=== PATIENT | male | born 1940 | race Caucasian/White ===

== ENCOUNTER → 2018-04-27 10:24 | Outpatient (CLI) | payer MEDICARE, BC, SELFPAY ==
[2018-04-27 10:57] LABS: Add Manual Diff / Slide Review NO; Basophils Percent Auto 0.8 % (0-2); Eosinophils Percent Auto 1.9 % (2-4); Hematocrit 40.7 % (41-53); Hemoglobin 14.2 g/dL (13.5-17.5); Lymphocytes Percent Auto 36.1 % (25-40); Mean Corpuscular HGB Conc 34.9 % (30-36); Mean Corpuscular Hemoglobin 32.6 PG (26-34); Mean Corpuscular Volume 93.2 fL (80-100); Monocytes Percent Auto 7.6 % (3-14); Neutrophils Absolute Auto 4100 /uL (3000-5900); Neutrophils Percent Auto 53.6 % (50-75); Platelet Count 212 X10^3/uL (150-400); Red Blood Cell Count 4.37 X10^6/uL (4.5-5.9); Red Cell Distribution Width 13.1 % (11.6-14.8); White Blood Cell Count 7.7 X10^3/uL (4.5-11.0)
[2018-04-27 11:26] LABS: Alanine Aminotransferase 30 IU/L (21-72); Albumin 4.4 g/dL (3.5-5.0); Albumin Globulin Ratio 1.4 (1.0-2.8); Alkaline Phosphatase 59 U/L (38-126); Aspartate Aminotransferase 28 IU/L (17-59); BUN Creatinine Ratio 12.2 (6-22); Blood Urea Nitrogen 11 mg/dL (9-20); Calcium 9.5 mg/dL (8.4-10.2); Carbon Dioxide 23 mmol/L (22-32); Chloride 106 mmol/L (98-107); Cholesterol 144 mg/dL (140-199); Estimated Glomerular Filt Rate > 60.0 mL/min (>60); Globulin 3.1 g/dL (1.7-4.1); Glucose 82 mg/dL (80-110); HDL Cholesterol 31 mg/dL (40-60); HEMOLYSIS 31 (0-50); LDL Cholesterol Calculated 79 mg/dL (<100); Potassium 5.3 mmol/L (3.4-5.1); Sodium 141 mmol/L (137-145); Total Protein 7.5 g/dL (6.3-8.2); Triglycerides 171 mg/dL (35-150)
== END ==
PROVIDERS: PCP Internal Medicine; Visit Provider Internal Medicine
DX: I48.91 Unspecified atrial fibrillation (principal); I50.22 Chronic systolic (congestive) heart failure
CPT/HCPCS: 36415; 80053; 80061; 83880; 85025

== ENCOUNTER → 2018-08-23 10:35 | Outpatient (CLI) | payer MEDICARE, BC, SELFPAY ==
[2018-08-23 11:53] LABS: Add Manual Diff / Slide Review NO; Basophils Absolute Auto 100 /uL (0-100); Basophils Percent Auto 0.8 % (0-2); Eosinophils Absolute Auto 200 /uL (0-450); Eosinophils Percent Auto 2.4 % (2-4); Hematocrit 42.4 % (41-53); Hemoglobin 14.8 g/dL (13.5-17.5); Lymphocytes Absolute Auto 2400 /uL (1100-4500); Lymphocytes Percent Auto 32.6 % (25-40); Mean Corpuscular HGB Conc 34.8 % (30-36); Mean Corpuscular Hemoglobin 32.4 PG (26-34); Mean Corpuscular Volume 93.1 fL (80-100); Monocytes Absolute Auto 500 /uL (0-900); Monocytes Percent Auto 6.2 % (3-14); Neutrophils Absolute Auto 4400 /uL (1500-7000); Platelet Count 254 X10^3/uL (150-400); Red Blood Cell Count 4.56 X10^6/uL (4.5-5.9); White Blood Cell Count 7.5 X10^3/uL (4.5-11.0)
[2018-08-23 12:17] LABS: BUN Creatinine Ratio 11.8 (6-22); Blood Urea Nitrogen 13 mg/dL (9-20); Calcium 9.9 mg/dL (8.4-10.2); Carbon Dioxide 19 mmol/L (22-32); Chloride 107 mmol/L (98-107); Estimated Glomerular Filt Rate > 60.0 mL/min (>60); Glucose 77 mg/dL (80-110); HEMOLYSIS 17 (0-50); Potassium 4.7 mmol/L (3.4-5.1); Sodium 142 mmol/L (137-145)
[2018-08-23 12:44] LABS: TSH w/ Reflex to FT4 1.07 uIU/mL (0.47-4.68)
== END ==
PROVIDERS: PCP Internal Medicine; Visit Provider Internal Medicine
DX: I50.22 Chronic systolic (congestive) heart failure (principal); E03.9 Hypothyroidism, unspecified
CPT/HCPCS: 36415; 80048; 84443; 85025

== ENCOUNTER → 2019-01-03 09:15 | Outpatient (CLI) | payer MEDICARE, BC, SELFPAY ==
[2019-01-03 10:40] LABS: Blood Urea Nitrogen 10 mg/dL (9-20); Calcium 9.6 mg/dL (8.4-10.2); Carbon Dioxide 22 mmol/L (22-32); Chloride 106 mmol/L (98-107); Estimated Glomerular Filt Rate > 60.0 mL/min (>60); Glucose 87 mg/dL (80-110); HEMOLYSIS < 15 (0-50); Potassium 4.3 mmol/L (3.4-5.1); Sodium 142 mmol/L (137-145)
[2019-01-03 11:11] LABS: TSH w/ Reflex to FT4 1.46 uIU/mL (0.47-4.68)
== END ==
PROVIDERS: PCP Internal Medicine; Visit Provider Internal Medicine
DX: I48.91 Unspecified atrial fibrillation (principal); E03.9 Hypothyroidism, unspecified; I10 Essential (primary) hypertension
CPT/HCPCS: 36415; 80048; 84443

== ENCOUNTER → 2019-02-09 10:18 | Outpatient (CLI) | payer MEDICARE, BC, SELFPAY ==
[2019-02-09 10:55] LABS: INR 2.6 (0.9-1.3); Prothrombin Time 30.9 SECONDS (10.1-12.7)
== END ==
PROVIDERS: PCP Internal Medicine; Visit Provider Internal Medicine
DX: I48.91 Unspecified atrial fibrillation (principal)
CPT/HCPCS: 36415; 85610

== ENCOUNTER → 2019-05-02 08:33 | Outpatient (CLI) | payer MEDICARE, BC, SELFPAY ==
[2019-05-02 10:11] LABS: Alanine Aminotransferase 22 IU/L (<50); Albumin 4.8 g/dL (3.5-5.0); Albumin Globulin Ratio 1.4 (1.0-2.8); Alkaline Phosphatase 74 U/L (38-126); Aspartate Aminotransferase 30 IU/L (17-59); Bilirubin Total 0.9 mg/dL (0.2-1.3); Blood Urea Nitrogen 9 mg/dL (9-20); Carbon Dioxide 21 mmol/L (22-32); Chloride 108 mmol/L (98-107); Cholesterol 167 mg/dL (140-199); Estimated Glomerular Filt Rate > 60.0 mL/min (>60); Globulin 3.4 g/dL (1.7-4.1); Glucose 77 mg/dL (80-110); HDL Cholesterol 33 mg/dL (40-60); HEMOLYSIS < 15 (0-50); LDL Cholesterol Calculated 100 mg/dL (<100); Potassium 4.3 mmol/L (3.4-5.1); Sodium 143 mmol/L (137-145); Total Protein 8.2 g/dL (6.3-8.2); Triglycerides 168 mg/dL (35-150)
[2019-05-02 10:59] LABS: Vitamin B12 > 1000 pg/mL (239-931)
== END ==
PROVIDERS: PCP Internal Medicine; Visit Provider Internal Medicine
DX: I48.91 Unspecified atrial fibrillation (principal); I10 Essential (primary) hypertension; D51.9 Vitamin B12 deficiency anemia, unspecified
CPT/HCPCS: 36415; 80053; 80061; 82607; 84443

== ENCOUNTER → 2019-06-27 12:37 | Outpatient (ROUT) | payer MEDICARE, BC, SELFPAY | PROVIDERS: PCP Internal Medicine; Visit Provider Internal Medicine | DX: R31.0 Gross hematuria (principal) | CPT/HCPCS: 87077; 87086; 87185; 87186 ==

== ENCOUNTER → 2020-05-06 11:52 | Outpatient (CLI) | payer MEDICARE, BC, SELFPAY ==
[2020-05-06 13:56] LABS: Add Manual Diff / Slide Review NO; Basophils Absolute Auto 0 /uL (0-100); Basophils Percent Auto 0.5 % (0-2); Eosinophils Absolute Auto 200 /uL (0-450); Eosinophils Percent Auto 1.7 % (2-4); Hematocrit 41.3 % (41-53); Hemoglobin 14.1 g/dL (13.5-17.5); Lymphocytes Absolute Auto 2500 /uL (1100-4500); Lymphocytes Percent Auto 27.6 % (25-40); Mean Corpuscular HGB Conc 34.1 % (30-36); Mean Corpuscular Hemoglobin 31.8 PG (26-34); Mean Corpuscular Volume 93.2 fL (80-100); Monocytes Absolute Auto 600 /uL (0-900); Monocytes Percent Auto 6.3 % (3-14); Neutrophils Absolute Auto 5900 /uL (1500-7000); Neutrophils Percent Auto 63.9 % (50-75); Platelet Count 191 X10^3/uL (150-400); Red Blood Cell Count 4.43 X10^6/uL (4.5-5.9); Red Cell Distribution Width 13.1 % (11.6-14.8); White Blood Cell Count 9.2 X10^3/uL (4.5-11.0)
[2020-05-06 14:40] LABS: Alanine Aminotransferase 25 IU/L (<50); Albumin 4.7 g/dL (3.5-5.0); Albumin Globulin Ratio 1.3 (1.0-2.8); Alkaline Phosphatase 75 U/L (38-126); Aspartate Aminotransferase 34 IU/L (17-59); BUN Creatinine Ratio 12.7 (6-22); Blood Urea Nitrogen 13 mg/dL (9-20); Calcium 9.6 mg/dL (8.4-10.2); Carbon Dioxide 23 mmol/L (22-32); Chloride 106 mmol/L (98-107); Cholesterol 177 mg/dL (140-199); Estimated Glomerular Filt Rate > 60.0 mL/min (>60); Globulin 3.6 g/dL (1.7-4.1); Glucose 74 mg/dL (80-110); HDL Cholesterol 30 mg/dL (40-60); HEMOLYSIS < 15 (0-50); LDL Cholesterol Calculated 111 mg/dL (<100); Potassium 4.1 mmol/L (3.4-5.1); Sodium 137 mmol/L (137-145); Total Protein 8.3 g/dL (6.3-8.2); Triglycerides 180 mg/dL (35-150)
[2020-05-06 15:09] LABS: TSH w/ Reflex to FT4 7.28 uIU/mL (0.47-4.68)
[2020-05-06 15:47] LABS: Free T4, Direct Thyroxine 2.04 ng/dL (0.78-2.19)
== END ==
PROVIDERS: PCP Internal Medicine; Referring Provider Internal Medicine; Visit Provider Internal Medicine
DX: I48.91 Unspecified atrial fibrillation (principal); E03.9 Hypothyroidism, unspecified; I50.22 Chronic systolic (congestive) heart failure; E78.2 Mixed hyperlipidemia
CPT/HCPCS: 80053; 80061; 84439; 84443; 85025

== ENCOUNTER 2020-07-10 14:52 | Inpatient (IN) | payer MEDICARE, BC, SELFPAY ==
[2020-07-10] VITALS (20 sets, daily range): BP systolic 101–155; BP diastolic 54–103; PULSE 89–106; RESP 15–42; TEMP 36.9–38.4; O2SAT 92–98; BMI 25.0; BMI 24.7
--- NOTE | 2020-07-10 15:02 | DI.RAD.S_ITS ---
PROCEDURE: XR CHEST 1V INDICATIONS: suspected sepsis TECHNIQUE: One view of the chest was acquired. COMPARISON: None. FINDINGS: Surgical changes and devices: None. Lungs and pleura: Lungs are clear. No pleural effusions or pneumothorax. Mediastinum: Mediastinal contours appear normal. Heart size is normal. Bones and chest wall: No suspicious bony lesions. Overlying soft tissues appear unremarkable. IMPRESSION: Normal for age, source of current sepsis symptoms is not seen. Dictated by: Baljinder Vizcaino M.D. on 07/10/2020 at 15:57 Approved by: Baljinder Vizcaino M.D. on 07/10/2020 at 15:57
[2020-07-10] MEDS: SODIUM CHLORIDE 0.9% 1,000 ML 1000 ML IV (15:30)
[2020-07-10 15:39] LABS: Appearance Urine UA CLOUDY; Bilirubin Urine UA 1+ (NEGATIVE); Glucose Urine UA NEGATIVE (Negative); Ketones Urine UA TRACE (NEGATIVE); Leukocyte Esterase Urine UA 1+ (NEGATIVE); Nitrite Urine UA POSITIVE (Negative); Occult Blood Urine UA 3+ (Negative); Protein Urine UA 3+ (Negative)
[2020-07-10 15:40] LABS: Color Urine UA Amber
[2020-07-10 15:48] LABS: Add Manual Diff / Slide Review NO; Basophils Absolute Auto 0 /uL (0-100); Basophils Percent Auto 0.2 % (0-2); Eosinophils Absolute Auto 0 /uL (0-450); Eosinophils Percent Auto 0.1 % (2-4); Hematocrit 38.9 % (41-53); Hemoglobin 13.1 g/dL (13.5-17.5); Lymphocytes Absolute Auto 1200 /uL (1100-4500); Lymphocytes Percent Auto 6.5 % (25-40); Mean Corpuscular HGB Conc 33.7 % (30-36); Mean Corpuscular Hemoglobin 31.4 PG (26-34); Mean Corpuscular Volume 93.1 fL (80-100); Monocytes Absolute Auto 1300 /uL (0-900); Monocytes Percent Auto 6.6 % (3-14); Neutrophils Absolute Auto 16600 /uL (1500-7000); Neutrophils Percent Auto 86.6 % (50-75); Platelet Count 183 X10^3/uL (150-400); Red Blood Cell Count 4.18 X10^6/uL (4.5-5.9); White Blood Cell Count 19.1 X10^3/uL (4.5-11.0)
[2020-07-10 15:51] LABS: COVID19 -Nasal RAPID Negative (Negative)
[2020-07-10 15:52] LABS: Ictotest Urine Negative (Negative)
[2020-07-10 15:53] LABS: RBC Urine 10-30/HPF (0-5/HPF); Squamous Epithelial Cell Urine 0-1 /HPF (0-5/HPF); WBC Urine 5-10/HPF (0-5/HPF)
[2020-07-10 15:54] LABS: Bacteria Urine Few (2-10); Culture Indicated Urine Specimen Cultured
[2020-07-10 15:58] LABS: INR 2.8 (0.9-1.3); Prothrombin Time 31.9 SECONDS (10.1-12.7)
[2020-07-10 16:01] LABS: PTT Partial Thromboplastin Tim 37 SECONDS (26.4-36.2)
[2020-07-10 16:02] LABS: Alanine Aminotransferase 19 IU/L (<50); Albumin 4.5 g/dL (3.5-5.0); Albumin Globulin Ratio 1.2 (1.0-2.8); Alkaline Phosphatase 56 U/L (38-126); Aspartate Aminotransferase 31 IU/L (17-59); BUN Creatinine Ratio 13.9 (6-22); Bilirubin Total 1.2 mg/dL (0.2-1.3); Blood Urea Nitrogen 16 mg/dL (9-20); Calcium 9.2 mg/dL (8.4-10.2); Carbon Dioxide 24 mmol/L (22-32); Chloride 104 mmol/L (98-107); Estimated Glomerular Filt Rate > 60.0 mL/min (>60); Globulin 3.7 g/dL (1.7-4.1); Glucose 90 mg/dL (80-110); HEMOLYSIS < 15 (0-50); Lipase 43 U/L (23-300); Potassium 3.9 mmol/L (3.4-5.1); Sodium 135 mmol/L (137-145); Total Protein 8.2 g/dL (6.3-8.2)
[2020-07-10 16:03] LABS: Lactate (Lactic Acid) 1.8 mmol/L (0.7-2.1)
[2020-07-10 16:32] LABS: Procalcitonin 0.55 ng/mL (<0.5)
--- NOTE | 2020-07-10 17:24 | ED_ITS ---
HPI - Neuro Symptoms/Deficit <Ramila Gaston Murtaza, - Last Filed: 07/11/20 19:00> General Chief Complaint: Neuro Symptoms/Deficit Stated Complaint: assisted fall Time Seen by Provider: 07/10/20 15:17 Source: patient Mode of arrival: EMS Limitations: no limitations History of Present Illness HPI Narrative: This is an 80-year-old male who is brought in for fever, his states he was up all night trying to urinate. 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 He ambulates with a walker. He was having some difficulty and fell. She did not appreciate any lateralizing weakness. She states that she did not hit his head. It was sort of a slow slide to the ground. He is on anticoagulants. She states patient and patient himself denies any pain, no chest pain or shortness o f breath, no persistent vomiting. Patient has had any major changes to bowel movements. He is on medication for hypertension, dyslipidemia and hypothyroidism. He lives at home with his . On Anticoagulants: Yes (coumadin) Related Data Home Medications Medication Instructions Recorded Confirmed simvastatin [Zocor] 40 mg PO BEDTIME #0 06/12/11 07/10/20 diltiazem HCl 180 mg PO QDAY #0 07/14/16 07/10/20 lisinopril 2.5 mg PO BEDTIME #0 07/14/16 07/10/20 ascorbate calcium (vitamin C) 500 mg PO DAILY 07/10/20 07/10/20 aspirin [Aspirin Child] 81 mg PO DAILY 07/10/20 07/10/20 cholecalciferol (vitamin D3) 25 mcg PO DAILY 07/10/20 07/10/20 [Vitamin D3] levothyroxine 100 mcg PO DAILY 07/10/20 07/10/20 clfkslxaazaa-idl-layy-FA-vit K 1 tab PO DAILY 07/10/20 07/10/20 [Adults Multivitamin] vitamin B complex [B 1 tab PO BEDTIME 07/10/20 07/10/20 Complex-Vitamin B12] warfarin See Rx Instructions .ROUTE .COMPLEX 07/10/20 07/10/20 warfarin See Rx Instructions .ROUTE .COMPLEX 07/10/20 07/10/20 Allergies Allergy/AdvReac Type Severity Reaction Status Date / Time No Known Drug Allergies Allergy Verified 07/10/20 15:03 Review of Systems <Ramila Hauser DO - Last Filed: 07/11/20 19:00> Review of Systems ROS Unobtainable: All systems reviewed & are unremarkable except as noted in HPI and below Hematologic/Lymphatic On Anticoagulants: Yes (coumadin) Patient History <Ramila Hauser DO - Last Filed: 07/11/20 19:00> Medical History (Updated 07/11/20 @ 06:36 by Soni Pack [facility]) 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 Patient is warm to touch. HEENT: Atraumatic, pupils are equal round reactive to light, extraocular movements are intact. No facial droop. HEART: Tachycardic but Regular rate and rhythm without murmur, clicks, rubs. No carotid bruits, pulses are equal in upper and lower extremities LUNGS:Lungs clear to auscultation, no wheezes, rales, crackles, chest moves symmetrically. ABD:bowel sounds normal, soft, non-tender, no guarding, rebound, rigidity, no masses noted, no hepatosplenomegaly :No CVA tenderness MSCL: Non-tender, no muscle atrophy, full range of motion of upper and lower while laying in bed. Gait not tested. NEURO:CN 2-12 intact, sensation normal, reflexes 2/4 upper and lower extremities Initial Vital Signs Initial Vital Signs: Vital Signs Temperature 101.0 F H 07/10/20 15:03 Pulse Rate 106 H 07/10/20 15:03 Respiratory Rate 15 07/10/20 15:03 Blood Pressure 115/62 07/10/20 15:03 Pulse Oximetry 98 07/10/20 15:03 <Celia Hein DO - Last Filed: 07/11/20 03:07> Initial Vital Signs Initial Vital Signs: Vital Signs Temperature 101.0 F H 07/10/20 15:03 Pulse Rate 106 H 07/10/20 15:03 Respiratory Rate 15 07/10/20 15:03 Blood Pressure 115/62 07/10/20 15:03 Pulse Oximetry 98 07/10/20 15:03 Scores <Ramila Hauser DO - Last Filed: 07/11/20 19:00> GCS Yolanda coma scale eye opening: Spontaneous [place] coma scale verbal response: Confused [place] coma scale motor response: Obey commands [place] coma scale total score: 14 Course <Ramila Hauser DO - Last Filed: 07/11/20 19:00> Orders Ordered: Acetaminophen (Acetaminophen 325 Mg Tablet) 650 mg PO Q6HR PRN PRN Reason: Fever/Mild Pain (1-3) Al Hydrox/Mg Hydrox/Simethicone (Mag Hydrox/Alum/Simeth 30 Ml Udc) 30 ml PO Q6HR PRN PRN Reason: Dyspepsia Aspirin (Aspirin 81 Mg Chew Tab) 81 mg PO DAILY [facility] Docusate Sodium (Docusate 100 Mg Capsule) 100 mg PO BID [facility] Last Admin: 07/11/20 09:24 Dose: 100 mg Documented by: BETH Meropenem 1 gm/ Sodium (Chloride) 100 mls @ 200 mls/hr IV Q8H [facility] Last Admin: 07/11/20 16:47 Dose: 200 mls/hr Documented by: Infusion: 07/11/20 08:02 Dose: 0 mls/hr Documented by: Admin: 07/11/20 06:44 Dose: 200 mls/hr Documented by: KAE Levothyroxine Sodium (Levothyroxine 100 Mcg Tablet) 100 mcg PO 0600 [facility] Naloxone HCl (Naloxone 0.4 Mg/Ml Vial) 0.2 mg IV Q2MIN PRN PRN Reason: Opiate Reversal Ondansetron HCl (Ondansetron 4 Mg/2 Ml Inj) 4 mg IV Q8HR PRN PRN Reason: Nausea And Vomiting Sennosides (Sennosides 8.6 Mg Tablet) 17.2 mg PO BEDTIME PRN PRN Reason: Constipation Simvastatin (Simvastatin 40 Mg Tablet) 40 mg PO BEDTIME DEANGELO Warfarin Sodium (Warfarin 2 Mg Tablet) 6 mg PO SuMoTuWeThSa@2100 EDANGELO Warfarin Sodium (Warfarin 5 Mg Tablet) 7 mg PO Fr@2100 DEANGELO Discontinued Medications Acetaminophen (Acetaminophen 325 Mg Tablet) 975 mg PO NOW ONE Stop: 07/10/20 18:37 Last Admin: 07/10/20 18:51 Dose: 975 mg Documented by: DOM Enoxaparin Sodium (Enoxaparin 40 Mg/0.4 Ml Syringe) 40 mg SUBCUT DAILY [facility] Sodium Chloride (Normal Saline 0.9%) 1,000 mls @ 1,000 mls/hr IV BOLUS ONE Stop: 07/10/20 16:00 Last Infusion: 07/10/20 16:44 Dose: 0 mls/hr Documented by: Admin: 07/10/20 15:30 Dose: 1,000 mls/hr Documented by: DOM Piperacillin Sod/Tazobactam (Sod 4.5 gm/ Sodium Chloride) 100 mls @ 200 mls/hr IV NOW ONE Stop: 07/10/20 17:26 Last Infusion: 07/10/20 18:47 Dose: 0 mls/hr Documented by: Admin: 07/10/20 17:35 Dose: 200 mls/hr Documented by: DOM Lactated Ringer's (Lactated Ringers) 1,000 mls @ 100 mls/hr IV CONT DEANGLEO Last Admin: 07/11/20 09:30 Dose: 100 mls/hr Documented by: Infusion: 07/11/20 08:10 Dose: 100 mls/hr Documented by: Admin: 07/10/20 22:10 Dose: 100 mls/hr Documented by: ALAN Ceftriaxone Sodium/Dextrose (Rocephin) 1 gm in 50 mls @ 100 mls/hr IV Q24H [facility] Last Infusion: 07/11/20 10:15 Dose: 0 mls/hr Documented by: Admin: 07/11/20 09:24 Dose: 100 mls/hr Documented by: BETH Lactated Ringer's (Lactated Ringers) 1,000 mls @ 1,000 mls/hr IV BOLUS ONE Stop: 07/11/20 07:43 Last Infusion: 07/11/20 09:25 Dose: 0 mls/hr Documented by: Admin: 07/11/20 08:05 Dose: 1,000 mls/hr Documented by: BETH Vancomycin HCl (Vancomycin) 1,250 mg in 250 mls @ 166.667 mls/hr IV Q12H [facility] Last Admin: 07/11/20 08:20 Dose: Not Given Documented by: BETH Vancomycin HCl (Vancomycin) 1,250 mg in 250 mls @ 166.667 mls/hr IV Q12H [facility] Last Admin: 07/11/20 10:15 Dose: 166.667 mls/hr Documented by: BETH Magnesium Sulfate (Magnesium Sulfate) 2 gm in 50 mls @ 25 mls/hr IV NOW ONE Stop: 07/11/20 13:42 Last Admin: 07/11/20 13:35 Dose: 25 mls/hr Documented by: BETH Cosigned by: LIYA Vancomycin HCl (Vancomycin Per Pharmacy) 1 request [facility] [place] ONE Stop: 07/11/20 06:29 Last Admin: 07/11/20 08:19 Dose: Not Given Documented by: BETH Vancomycin HCl (Vancomycin Trough) 1 request MIS 2030 [facility] Stop: 07/12/20 20:31 Vital Signs Vital signs: Vital Signs - 8 hr 07/10/20 19:30 07/10/20 20:00 Pulse Rate 94 H 96 H Respiratory Rate 17 Pulse Oximetry 97 95 <Celia Hein, DO - Last Filed: 07/11/20 03:07> Orders Ordered: Acetaminophen (Acetaminophen 325 Mg Tablet) 650 mg PO Q6HR PRN PRN Reason: Fever/Mild Pain (1-3) Al Hydrox/Mg Hydrox/Simethicone (Mag Hydrox/Alum/Simeth 30 Ml Udc) 30 ml PO Q6HR PRN PRN Reason: Dyspepsia Aspirin (Aspirin 81 Mg Chew Tab) 81 mg PO DAILY [facility] Docusate Sodium (Docusate 100 Mg Capsule) 100 mg PO BID [facility] Last Admin: 07/11/20 09:24 Dose: 100 mg Documented by: BETH Meropenem 1 gm/ Sodium (Chloride) 100 mls @ 200 mls/hr IV Q8H [facility] Last Admin: 07/11/20 16:47 Dose: 200 mls/hr Documented by: Infusion: 07/11/20 08:02 Dose: 0 mls/hr Documented by: Admin: 07/11/20 06:44 Dose: 200 mls/hr Documented by: KAE Levothyroxine Sodium (Levothyroxine 100 Mcg Tablet) 100 mcg PO 0600 [facility] Naloxone HCl (Naloxone 0.4 Mg/Ml Vial) 0.2 mg IV Q2MIN PRN PRN Reason: Opiate Reversal Ondansetron HCl (Ondansetron 4 Mg/2 Ml Inj) 4 mg IV Q8HR PRN PRN Reason: Nausea And Vomiting Sennosides (Sennosides 8.6 Mg Tablet) 17.2 mg PO BEDTIME PRN PRN Reason: Constipation Simvastatin (Simvastatin 40 Mg Tablet) 40 mg PO BEDTIME DEANGELO Warfarin Sodium (Warfarin 2 Mg Tablet) 6 mg PO SuMoTuWeThSa@2100 DEANGELO Warfarin Sodium (Warfarin 5 Mg Tablet) 7 mg PO Fr@2100 DEANGELO Discontinued Medications Acetaminophen (Acetaminophen 325 Mg Tablet) 975 mg PO NOW ONE Stop: 07/10/20 18:37 Last Admin: 07/10/20 18:51 Dose: 975 mg Documented by: DOM Enoxaparin Sodium (Enoxaparin 40 Mg/0.4 Ml Syringe) 40 mg SUBCUT DAILY [facility] Sodium Chloride (Normal Saline 0.9%) 1,000 mls @ 1,000 mls/hr IV BOLUS ONE Stop: 07/10/20 16:00 Last Infusion: 07/10/20 16:44 Dose: 0 mls/hr Documented by: Admin: 07/10/20 15:30 Dose: 1,000 mls/hr Documented by: DOM Piperacillin Sod/Tazobactam (Sod 4.5 gm/ Sodium Chloride) 100 mls @ 200 mls/hr IV NOW ONE Stop: 07/10/20 17:26 Last Infusion: 07/10/20 18:47 Dose: 0 mls/hr Documented by: Admin: 07/10/20 17:35 Dose: 200 mls/hr Documented by: DOM Lactated Ringer's (Lactated Ringers) 1,000 mls @ 100 mls/hr IV CONT DEANGELO Last Admin: 07/11/20 09:30 Dose: 100 mls/hr Documented by: Infusion: 07/11/20 08:10 Dose: 100 mls/hr Documented by: Admin: 07/10/20 22:10 Dose: 100 mls/hr Documented by: ALAN Ceftriaxone Sodium/Dextrose (Rocephin) 1 gm in 50 mls @ 100 mls/hr IV Q24H [facility] Last Infusion: 07/11/20 10:15 Dose: 0 mls/hr Documented by: Admin: 07/11/20 09:24 Dose: 100 mls/hr Documented by: BETH Lactated Ringer's (Lactated Ringers) 1,000 mls @ 1,000 mls/hr IV BOLUS ONE Stop: 07/11/20 07:43 Last Infusion: 07/11/20 09:25 Dose: 0 mls/hr Documented by: Admin: 07/11/20 08:05 Dose: 1,000 mls/hr Documented by: EBTH Vancomycin HCl (Vancomycin) 1,250 mg in 250 mls @ 166.667 mls/hr IV Q12H [facility] Last Admin: 07/11/20 08:20 Dose: Not Given Documented by: BETH Vancomycin HCl (Vancomycin) 1,250 mg in 250 mls @ 166.667 mls/hr IV Q12H [facility] Last Admin: 07/11/20 10:15 Dose: 166.667 mls/hr Documented by: BETH Magnesium Sulfate (Magnesium Sulfate) 2 gm in 50 mls @ 25 mls/hr IV NOW ONE Stop: 07/11/20 13:42 Last Admin: 07/11/20 13:35 Dose: 25 mls/hr Documented by: BETH Cosigned by: LIYA Vancomycin HCl (Vancomycin Per Pharmacy) 1 request [facility] [place] NOW ONE Stop: 07/11/20 06:29 Last Admin: 07/11/20 08:19 Dose: Not Given Documented by: BETH Vancomycin HCl (Vancomycin Trough) 1 request [facility] 2029 [facility] Stop: 07/12/20 20:31 Vital Signs Vital signs: Vital Signs - 8 hr 07/10/20 19:30 07/10/20 20:00 Pulse Rate 94 H 96 H Respiratory Rate 17 Pulse Oximetry 97 95 MDM - Neuro Symptoms/Deficit <Ramila Hauser DO - Last Filed: 07/11/20 19:00> Lab Data Attestation: I reviewed the patient's lab results. Result diagrams: 07/11/20 05:15 07/11/20 05:15 Labs: Lab Results 07/10/20 07/10/20 07/10/20 Range/Units 15:03 15:07 15:22 WBC 19.1 H (4.5-11.0) X10^3/uL RBC 4.18 L (4.5-5.9) X10^6/uL Hgb 13.1 L (13.5-17.5) g/dL Hct 38.9 L (41-53) % MCV 93.1 (80-100) fL MCH 31.4 (26-34) PG MCHC 33.7 (30-36) % RDW 13.0 (11.6-14.8) % Plt Count 183 (150-400) X10^3/uL Neut % (Auto) 86.6 H (50-75) % Lymph % (Auto) 6.5 L (25-40) % Bond % (Auto) 6.6 (3-14) % Eos % (Auto) 0.1 L (2-4) % Baso % (Auto) 0.2 (0-2) % Neut # (Auto) 29181 H (4092-0392) /uL Lymph # (Auto) 1200 (7598-8928) /uL Bond # (Auto) 1300 H (0-900) /uL Eos # (Auto) 0 (0-450) /uL Baso # (Auto) 0 (0-100) /uL PT (10.1-12.7) SECONDS INR (0.9-1.3) APTT (26.4-36.2) SECONDS Sodium (137-145) mmol/L Potassium (3.4-5.1) mmol/L Chloride (98-107) mmol/L Carbon Dioxide (22-32) mmol/L BUN (9-20) mg/dL Creatinine (0.66-1.25) mg/dL Estimated GFR (>60) mL/min BUN/Creatinine Ratio (6-22) Glucose (80-110) mg/dL Lactate (0.7-2.1) mmol/L Calcium (8.4-10.2) mg/dL Total Bilirubin (0.2-1.3) mg/dL AST (17-59) IU/L ALT (<50) IU/L Alkaline Phosphatase (38-126) U/L Total Protein (6.3-8.2) g/dL Albumin (3.5-5.0) g/dL Globulin (1.7-4.1) g/dL Albumin/Globulin Ratio (1.0-2.8) Lipase (23-300) U/L Procalcitonin (<0.5) ng/mL Urine Color [place]na Urine Appearance Cloudy Urine pH 6.0 (4.5-8.0) Ur Specific [place] 1.020 (1.000-1.035) Urine Protein 3+ H (Negative) Urine Glucose (UA) Negative (Negative) g/dL Urine Ketones Trace H (NEGATIVE) Urine Occult Blood 3+ H (Negative) Urine Nitrate Positive (Negative) Urine Bilirubin 1+ H (NEGATIVE) Ur Bilirubin Confirm Negative (Negative) Urine Urobilinogen 1.0 (0.2) E.U./dL Ur Leukocyte Esterase 1+ H (NEGATIVE) Urine RBC 10-30/hpf H (0-5/HPF) Urine WBC 5-10/hpf H (0-5/HPF) Ur Squamous Epith Cells 0-1 /hpf (0-5/HPF) Urine Bacteria Few (2-10) H (None) Ur Culture Indicated? Specimen cultured SARS-CoV-2 (PCR) Negative (Negative) 07/10/20 07/10/20 07/10/20 Range/Units 15:22 15:22 15:22 WBC (4.5-11.0) X10^3/uL RBC (4.5-5.9) X10^6/uL Hgb (13.5-17.5) g/dL Hct (41-53) % MCV (80-100) fL MCH (26-34) PG MCHC (30-36) % RDW (11.6-14.8) % Plt Count (150-400) X10^3/uL Neut % (Auto) (50-75) % Lymph % (Auto) (25-40) % Bond % (Auto) (3-14) % Eos % (Auto) (2-4) % Baso % (Auto) (0-2) % Neut # (Auto) (2348-7863) /uL Lymph # (Auto) (9082-3466) /uL Bond # (Auto) (0-900) /uL Eos # (Auto) (0-450) /uL Baso # (Auto) (0-100) /uL PT 31.9 H (10.1-12.7) SECONDS INR 2.8 H (0.9-1.3) APTT 37 H (26.4-36.2) SECONDS Sodium 135 L (137-145) mmol/L Potassium 3.9 (3.4-5.1) mmol/L Chloride 104 (98-107) mmol/L Carbon Dioxide 24 (22-32) mmol/L BUN 16 (9-20) mg/dL Creatinine 1.15 (0.66-1.25) mg/dL Estimated GFR > 60.0 (>60) mL/min BUN/Creatinine Ratio 13.9 (6-22) Glucose 90 (80-110) mg/dL Lactate (0.7-2.1) mmol/L Calcium 9.2 (8.4-10.2) mg/dL Total Bilirubin 1.2 (0.2-1.3) mg/dL AST 31 (17-59) IU/L ALT 19 (<50) IU/L Alkaline Phosphatase 56 (38-126) U/L Total Protein 8.2 (6.3-8.2) g/dL Albumin 4.5 (3.5-5.0) g/dL Globulin 3.7 (1.7-4.1) g/dL Albumin/Globulin Ratio 1.2 (1.0-2.8) Lipase 43 (23-300) U/L Procalcitonin 0.55 H (<0.5) ng/mL Urine Color Urine Appearance Urine pH (4.5-8.0) Ur Specific [place] (1.000-1.035) Urine Protein (Negative) Urine Glucose (UA) (Negative) g/dL Urine Ketones (NEGATIVE) Urine Occult Blood (Negative) Urine Nitrate (Negative) Urine Bilirubin (NEGATIVE) Ur Bilirubin Confirm (Negative) Urine Urobilinogen (0.2) E.U./dL Ur Leukocyte Esterase (NEGATIVE) Urine RBC (0-5/HPF) Urine WBC (0-5/HPF) Ur Squamous Epith Cells (0-5/HPF) Urine Bacteria (None) Ur Culture Indicated? SARS-CoV-2 (PCR) (Negative) 07/10/20 Range/Units 15:22 WBC (4.5-11.0) X10^3/uL RBC (4.5-5.9) X10^6/uL Hgb (13.5-17.5) g/dL Hct (41-53) % MCV (80-100) fL MCH (26-34) PG MCHC (30-36) % RDW (11.6-14.8) % Plt Count (150-400) X10^3/uL Neut % (Auto) (50-75) % Lymph % (Auto) (25-40) % Bond % (Auto) (3-14) % Eos % (Auto) (2-4) % Baso % (Auto) (0-2) % Neut # (Auto) (1054-4142) /uL Lymph # (Auto) (9911-6825) /uL Bond # (Auto) (0-900) /uL Eos # (Auto) (0-450) /uL Baso # (Auto) (0-100) /uL PT (10.1-12.7) SECONDS INR (0.9-1.3) APTT (26.4-36.2) SECONDS Sodium (137-145) mmol/L Potassium (3.4-5.1) mmol/L Chloride (98-107) mmol/L Carbon Dioxide (22-32) mmol/L BUN (9-20) mg/dL Creatinine (0.66-1.25) mg/dL Estimated GFR (>60) mL/min BUN/Creatinine Ratio (6-22) Glucose (80-110) mg/dL Lactate 1.8 (0.7-2.1) mmol/L Calcium (8.4-10.2) mg/dL Total Bilirubin (0.2-1.3) mg/dL AST (17-59) IU/L ALT (<50) IU/L Alkaline Phosphatase (38-126) U/L Total Protein (6.3-8.2) g/dL Albumin (3.5-5.0) g/dL Globulin (1.7-4.1) g/dL Albumin/Globulin Ratio (1.0-2.8) Lipase (23-300) U/L Procalcitonin (<0.5) ng/mL Urine Color Urine Appearance Urine pH (4.5-8.0) Ur Specific [place] (1.000-1.035) Urine Protein (Negative) Urine Glucose (UA) (Negative) g/dL Urine Ketones (NEGATIVE) Urine Occult Blood (Negative) Urine Nitrate (Negative) Urine Bilirubin (NEGATIVE) Ur Bilirubin Confirm (Negative) Urine Urobilinogen (0.2) E.U./dL Ur Leukocyte Esterase (NEGATIVE) Urine RBC (0-5/HPF) Urine WBC (0-5/HPF) Ur Squamous Epith Cells (0-5/HPF) Urine Bacteria (None) Ur Culture Indicated? SARS-CoV-2 (PCR) (Negative) Imaging Data Chest x-ray: Radiologist's Impression: [address] [id number] ReportSigned Patient: Rohit Sierra [facility]#: [id number]: 1940Acct:[id number]/Sex: 80 / MDate of Service: 07/10/20Loc: EDAccession Number: [id number] Procedure: XR chest 1V Ordering Provider: Ramila Hauser D.O. PROCEDURE: XR CHEST 1V INDICATIONS: suspected sepsis TECHNIQUE: One view of the chest was acquired. COMPARISON: None. FINDINGS: Surgical changes and devices: None. Lungs and pleura: Lungs are clear. No pleural effusions or pneumothorax. Mediastinum: Mediastinal contours appear normal. Heart size is normal. Bones and chest wall: No suspicious bony lesions. Overlying soft tissues appear unremarkable. IMPRESSION: Normal for age, source of current sepsis symptoms is not seen. Dictated by: Baljinder Vizcaino M.D. on 07/10/2020 at 15:57 Approved by: Baljinder Vizcaino M.D. on 07/10/2020 at 15:57 [facility] Narrative Medical decision making narrative: Patient signed out while awaiting head CT, madeline morris here for UTI sepsis with fever, tachycardia, no hypotension. Patient had fall today on warfarin although states she did not think he his his head. Patient received Rocephin in the department. Fluids and labs show leukocytosis with positive procalcitonin. No acute renal dysfunction. covid swab is negative. Patient awaiting Head CT with plan for admission. signed out to Dr. Hein while awaiting Head CT. <Celia Hein DO - Last Filed: 07/11/20 03:07> Lab Data Labs: Lab Results 07/10/20 07/10/20 07/10/20 Range/Units 15:03 15:07 15:22 WBC 19.1 H (4.5-11.0) X10^3/uL RBC 4.18 L (4.5-5.9) X10^6/uL Hgb 13.1 L (13.5-17.5) g/dL Hct 38.9 L (41-53) % MCV 93.1 (80-100) fL MCH 31.4 (26-34) PG MCHC 33.7 (30-36) % RDW 13.0 (11.6-14.8) % Plt Count 183 (150-400) X10^3/uL Neut % (Auto) 86.6 H (50-75) % Lymph % (Auto) 6.5 L (25-40) % Bond % (Auto) 6.6 (3-14) % Eos % (Auto) 0.1 L (2-4) % Baso % (Auto) 0.2 (0-2) % Neut # (Auto) 44362 H (8039-6873) /uL Lymph # (Auto) 1200 (0454-5027) /uL Bond # (Auto) 1300 H (0-900) /uL Eos # (Auto) 0 (0-450) /uL Baso # (Auto) 0 (0-100) /uL PT (10.1-12.7) SECONDS INR (0.9-1.3) APTT (26.4-36.2) SECONDS Sodium (137-145) mmol/L Potassium (3.4-5.1) mmol/L Chloride (98-107) mmol/L Carbon Dioxide (22-32) mmol/L BUN (9-20) mg/dL Creatinine (0.66-1.25) mg/dL Estimated GFR (>60) mL/min BUN/Creatinine Ratio (6-22) Glucose (80-110) mg/dL Lactate (0.7-2.1) mmol/L Calcium (8.4-10.2) mg/dL Total Bilirubin (0.2-1.3) mg/dL AST (17-59) IU/L ALT (<50) IU/L Alkaline Phosphatase (38-126) U/L Total Protein (6.3-8.2) g/dL Albumin (3.5-5.0) g/dL Globulin (1.7-4.1) g/dL Albumin/Globulin Ratio (1.0-2.8) Lipase (23-300) U/L Procalcitonin (<0.5) ng/mL Urine Color [place] Urine Appearance Cloudy Urine pH 6.0 (4.5-8.0) Ur Specific [place] 1.020 (1.000-1.035) Urine Protein 3+ H (Negative) Urine Glucose (UA) Negative (Negative) g/dL Urine Ketones Trace H (NEGATIVE) Urine Occult Blood 3+ H (Negative) Urine Nitrate Positive (Negative) Urine Bilirubin 1+ H (NEGATIVE) Ur Bilirubin Confirm Negative (Negative) Urine Urobilinogen 1.0 (0.2) E.U./dL Ur Leukocyte Esterase 1+ H (NEGATIVE) Urine RBC 10-30/hpf H (0-5/HPF) Urine WBC 5-10/hpf H (0-5/HPF) Ur Squamous Epith Cells 0-1 /hpf (0-5/HPF) Urine Bacteria Few (2-10) H (None) Ur Culture Indicated? Specimen cultured SARS-CoV-2 (PCR) Negative (Negative) 07/10/20 07/10/20 07/10/20 Range/Units 15:22 15:22 15:22 WBC (4.5-11.0) X10^3/uL RBC (4.5-5.9) X10^6/uL Hgb (13.5-17.5) g/dL Hct (41-53) % MCV (80-100) fL MCH (26-34) PG MCHC (30-36) % RDW (11.6-14.8) % Plt Count (150-400) X10^3/uL Neut % (Auto) (50-75) % Lymph % (Auto) (25-40) % Bond % (Auto) (3-14) % Eos % (Auto) (2-4) % Baso % (Auto) (0-2) % Neut # (Auto) (8148-9337) /uL Lymph # (Auto) (3622-5943) /uL Bond # (Auto) (0-900) /uL Eos # (Auto) (0-450) /uL Baso # (Auto) (0-100) /uL PT 31.9 H (10.1-12.7) SECONDS INR 2.8 H (0.9-1.3) APTT 37 H (26.4-36.2) SECONDS Sodium 135 L (137-145) mmol/L Potassium 3.9 (3.4-5.1) mmol/L Chloride 104 (98-107) mmol/L Carbon Dioxide 24 (22-32) mmol/L BUN 16 (9-20) mg/dL Creatinine 1.15 (0.66-1.25) mg/dL Estimated GFR > 60.0 (>60) mL/min BUN/Creatinine Ratio 13.9 (6-22) Glucose 90 (80-110) mg/dL Lactate (0.7-2.1) mmol/L Calcium 9.2 (8.4-10.2) mg/dL Total Bilirubin 1.2 (0.2-1.3) mg/dL AST 31 (17-59) IU/L ALT 19 (<50) IU/L Alkaline Phosphatase 56 (38-126) U/L Total Protein 8.2 (6.3-8.2) g/dL Albumin 4.5 (3.5-5.0) g/dL Globulin 3.7 (1.7-4.1) g/dL Albumin/Globulin Ratio 1.2 (1.0-2.8) Lipase 43 (23-300) U/L Procalcitonin 0.55 H (<0.5) ng/mL Urine Color Urine Appearance Urine pH (4.5-8.0) Ur Specific [place] (1.000-1.035) Urine Protein (Negative) Urine Glucose (UA) (Negative) g/dL Urine Ketones (NEGATIVE) Urine Occult Blood (Negative) Urine Nitrate (Negative) Urine Bilirubin (NEGATIVE) Ur Bilirubin Confirm (Negative) Urine Urobilinogen (0.2) E.U./dL Ur Leukocyte Esterase (NEGATIVE) Urine RBC (0-5/HPF) Urine WBC (0-5/HPF) Ur Squamous Epith Cells (0-5/HPF) Urine Bacteria (None) Ur Culture Indicated? SARS-CoV-2 (PCR) (Negative) 07/10/20 Range/Units 15:22 WBC (4.5-11.0) X10^3/uL RBC (4.5-5.9) X10^6/uL Hgb (13.5-17.5) g/dL Hct (41-53) % MCV (80-100) fL MCH (26-34) PG MCHC (30-36) % RDW (11.6-14.8) % Plt Count (150-400) X10^3/uL Neut % (Auto) (50-75) % Lymph % (Auto) (25-40) % Bond % (Auto) (3-14) % Eos % (Auto) (2-4) % Baso % (Auto) (0-2) % Neut # (Auto) (7013-7066) /uL Lymph # (Auto) (2217-7044) /uL Bond # (Auto) (0-900) /uL Eos # (Auto) (0-450) /uL Baso # (Auto) (0-100) /uL PT (10.1-12.7) SECONDS INR (0.9-1.3) APTT (26.4-36.2) SECONDS Sodium (137-145) mmol/L Potassium (3.4-5.1) mmol/L Chloride (98-107) mmol/L Carbon Dioxide (22-32) mmol/L BUN (9-20) mg/dL Creatinine (0.66-1.25) mg/dL Estimated GFR (>60) mL/min BUN/Creatinine Ratio (6-22) Glucose (80-110) mg/dL Lactate 1.8 (0.7-2.1) mmol/L Calcium (8.4-10.2) mg/dL Total Bilirubin (0.2-1.3) mg/dL AST (17-59) IU/L ALT (<50) IU/L Alkaline Phosphatase (38-126) U/L Total Protein (6.3-8.2) g/dL Albumin (3.5-5.0) g/dL Globulin (1.7-4.1) g/dL Albumin/Globulin Ratio (1.0-2.8) Lipase (23-300) U/L Procalcitonin (<0.5) ng/mL Urine Color Urine Appearance Urine pH (4.5-8.0) Ur Specific [place] (1.000-1.035) Urine Protein (Negative) Urine Glucose (UA) (Negative) g/dL Urine Ketones (NEGATIVE) Urine Occult Blood (Negative) Urine Nitrate (Negative) Urine Bilirubin (NEGATIVE) Ur Bilirubin Confirm (Negative) Urine Urobilinogen (0.2) E.U./dL Ur Leukocyte Esterase (NEGATIVE) Urine RBC (0-5/HPF) Urine WBC (0-5/HPF) Ur Squamous Epith Cells (0-5/HPF) Urine Bacteria (None) Ur Culture Indicated? SARS-CoV-2 (PCR) (Negative) Imaging Data CT scan - head: Radiologist's Impression: PROCEDURE: CT HEAD/BRAIN WO CON INDICATIONS: fall, uti, prior head bleed TECHNIQUE: Noncontrast 4.5 mm thick angled axial sections acquired from the foramen magnum to the vertex, with coronal and sagittal reformats. For radiation dose reduction, the following was used: automated exposure control, adjustment of mA and/or kV according to patient size. COMPARISON: [facility], CT, HEAD WITHOUT CONTRAST, 08/20/2017, 8:22. FINDINGS: Image quality: Excellent. CSF spaces: Basal cisterns are patent. No extra-axial fluid collections. Ventricles are normal in size and shape. Brain: No midline shift. No intracranial masses or hemorrhage. No area of hypodensity in a large vascular distribution to suggest acute infarction. Periventricular hypodensity consistent with chronic microvascular ischemic change. V4 vertebral artery atherosclerotic calcifications. Age-related parenchymal loss. Skull and face: Prior left craniotomy. Calvarium and visualized facial bones are intact, without suspicious lesions. Sinuses: Visualized sinuses and mastoids are clear. IMPRESSION: No acute intracranial hemorrhage. No acute intracranial abnormality. Dictated by: Krishna Hernandez M.D. on 07/10/2020 at 19:44 MDM Narrative Medical decision making narrative: Her see sign-out from Dr. Hauser. Head CT is negative. I spoke with Soni CROWLEY he has been updated patient's symptoms test results and agrees with admission Discharge Plan Departure Patient Disposition: Admitted As Inpatient Clinical Impression: Acute UTI, Fall, Confusion Admit Date/Time: 07/10/20 20:23 Admit Provider: Soni Pack
[2020-07-10] MEDS: PIPERACILLIN/TAZO 4.5 GM in SODIUM CHLORIDE 0.9% 100 ML 200 ML IV (17:35)
--- NOTE | 2020-07-10 18:35 | DI.CT.S_ITS ---
PROCEDURE: CT HEAD/BRAIN WO CON INDICATIONS: fall, uti, prior head bleed TECHNIQUE: Noncontrast 4.5 mm thick angled axial sections acquired from the foramen magnum to the vertex, with coronal and sagittal reformats. For radiation dose reduction, the following was used: automated exposure control, adjustment of mA and/or kV according to patient size. COMPARISON: [facility], CT, HEAD WITHOUT CONTRAST, 08/20/2017, 8:22. FINDINGS: Image quality: Excellent. CSF spaces: Basal cisterns are patent. No extra-axial fluid collections. Ventricles are normal in size and shape. Brain: No midline shift. No intracranial masses or hemorrhage. No area of hypodensity in a large vascular distribution to suggest acute infarction. Periventricular hypodensity consistent with chronic microvascular ischemic change. V4 vertebral artery atherosclerotic calcifications. Age-related parenchymal loss. Skull and face: Prior left craniotomy. Calvarium and visualized facial bones are intact, without suspicious lesions. Sinuses: Visualized sinuses and mastoids are clear. IMPRESSION: No acute intracranial hemorrhage. No acute intracranial abnormality. Dictated by: Krishna Hernandez M.D. on 07/10/2020 at 19:44 Approved by: Krishna Hernandez M.D. on 07/10/2020 at 19:46
[2020-07-10] MEDS: ACETAMINOPHEN 325 MG TABLET 975 MG PO (18:51)
[2020-07-10] MEDS: LACTATED RINGERS 1,000 ML 100 ML IV (22:10)
--- NOTE | 2020-07-10 22:32 | PC.NURSE ---
2230- Pt is a poor historian. Difficulty recalling history, unsure of home meds. No family present to assist with admission. Lab unable to draw blood. Unsuccessful attempt at drawing from IV line. RN attempted draw without success. Pt inc of urine, brief change. C/o left hip pain. APAP given in ER. Repositioned for comfort.
[2020-07-11] VITALS (12 sets, daily range): BP systolic 99–110; BP diastolic 53–67; PULSE 77–112; RESP 16–20; TEMP 36.6–37.5; O2SAT 94–100
--- NOTE | 2020-07-11 03:17 | PC.NURSE ---
patient is alert and oriented but reportedly can be forgetful. Breath sounds CTA with RA sat of 94%. HR irregular w/telemetry reading of afib CVR. Denies nausea. BT present and abdomen is soft. Incontinent of urine but also trying to void using urinal; states he does have some dysuria/burning with urination. Able to turn himself in bed. Gait not assessed at this time but reports he has weakness in bilateral LE and uses walker to get around at home. Wearing bilateral calf SCD's. Fall risk score is high and bed alarm is activated.
[2020-07-11 05:43] LABS: Add Manual Diff / Slide Review NO; Basophils Absolute Auto 100 /uL (0-100); Basophils Percent Auto 0.7 % (0-2); Eosinophils Absolute Auto 0 /uL (0-450); Eosinophils Percent Auto 0.2 % (2-4); Hemoglobin 11.5 g/dL (13.5-17.5); Lymphocytes Absolute Auto 2100 /uL (1100-4500); Lymphocytes Percent Auto 10.3 % (25-40); Mean Corpuscular HGB Conc 33.8 % (30-36); Mean Corpuscular Hemoglobin 31.4 PG (26-34); Mean Corpuscular Volume 92.9 fL (80-100); Monocytes Absolute Auto 1400 /uL (0-900); Monocytes Percent Auto 6.9 % (3-14); Neutrophils Absolute Auto 16500 /uL (1500-7000); Neutrophils Percent Auto 81.9 % (50-75); Platelet Count 134 X10^3/uL (150-400); Red Blood Cell Count 3.66 X10^6/uL (4.5-5.9); Red Cell Distribution Width 12.7 % (11.6-14.8); White Blood Cell Count 20.1 X10^3/uL (4.5-11.0)
[2020-07-11 05:48] LABS: INR 2.7 (0.9-1.3); Prothrombin Time 30.3 SECONDS (10.1-12.7)
[2020-07-11 05:51] LABS: PTT Partial Thromboplastin Tim 33 SECONDS (26.4-36.2)
[2020-07-11 05:56] LABS: Alanine Aminotransferase 21 IU/L (<50); Albumin 3.4 g/dL (3.5-5.0); Albumin Globulin Ratio 1.1 (1.0-2.8); Alkaline Phosphatase 49 U/L (38-126); Aspartate Aminotransferase 34 IU/L (17-59); BUN Creatinine Ratio 15.2 (6-22); Bilirubin Total 1.4 mg/dL (0.2-1.3); Blood Urea Nitrogen 16 mg/dL (9-20); Calcium 7.9 mg/dL (8.4-10.2); Carbon Dioxide 22 mmol/L (22-32); Chloride 106 mmol/L (98-107); Estimated Glomerular Filt Rate > 60.0 mL/min (>60); Globulin 3.1 g/dL (1.7-4.1); Glucose 95 mg/dL (80-110); HEMOLYSIS < 15 (0-50); Magnesium 1.5 mg/dL (1.6-2.3); Phosphorous 2.9 mg/dL (2.3-3.7); Potassium 3.7 mmol/L (3.4-5.1); Sodium 132 mmol/L (137-145); Total Protein 6.5 g/dL (6.3-8.2)
[2020-07-11 06:04] LABS: NT-proBNP (BNP-Adult 18+) 4140 pg/mL (<450)
--- NOTE | 2020-07-11 06:08 | PM.HP.1 ---
History of Present Illness History of Present Illness Date Patient Seen: 07/10/20 Time Patient Seen: 21:29 Chief complaint: assisted fall Narrative: Patient is an 80-year-old male Rohit Sierra who presented to the ED for fever, his states he was up all night trying to urinate. Patient has a history of hypertension, hyperlipidemia, hypothyroidism, and traumatic brain injury, with head bleed. In the ED the was the historian and stated that she did notice that his speech was a little bit off this starting has a prior history of traumatic head bleed several years and has continued to have a traumatic head injury. 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 He ambulates with a walker. He was having some difficulty and fell. She did not appreciate any lateralizing weakness. She states that she did not hit his head. It was sort of a slow slide to the ground. He is on anticoagulants. Patient himself denies any pain, no chest pain or shortness of breath, no persistent vomiting. Patient has had any major changes to bowel movements. He lives at home with his . Upon admit to the floor patient was alert and orientated his historical recall was questionable. Patient stated that his pain had resolved which was slight left hip pain that radiated to his back which resolved once he repositioned in the bed to lying on his left side. Patient denies chest pain shortness of breath nausea vomiting body aches chills or fever. His did not accompany him up to the floor for admit. Patient's Vital Signs upon admit temp 100.3?, BP 155/103, HR 96, RR 17, 95% on room air. Patient's labs WBC of 19.1, HGB 13.1, HCT 38.9, PLT 134, neutrophils 31205, sodium 135, PTT 31.9, PTT 37, INR 2.8, lactate is negative, procalcitonin 0.55, patient had a negative SOFA score on admit. Urinalysis: Urine protein 3+, occult blood 3+, nitrates positive, bilirubin 1+, leuko Estrace 1+: Urine culture pending, blood cultures pending. CXR:Normal for age, source of current sepsis symptoms is not seen. Head CT:No acute intracranial hemorrhage. No acute intracranial abnormality. Patient given 1 g Rocephin/Zosyn 4.5 g in ER, patient be admitted for acute UTI, encephalitis, hypertensive urgency, fever, leukocytosis. 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 Closed TBI (traumatic brain injury) Hyperlipidemia Hypertension Hypothyroidism Family & Social History Social History: household members spouse Prior Living Arrangements House Safety & Behavioral: Feels Safe in Current Yes Environment Been Physically Hurt or No Threatened By a Person Suicidal Ideation Description None Tobacco & Substance use: Smoking Status Never smoker alcohol intake frequency holiday/special occasion Substance Use Type does not use Meds Home Medications and Allergies Home Medications Medication Instructions Recorded Confirmed Type simvastatin [Zocor] 40 mg PO BEDTIME #0 06/12/11 07/10/20 History diltiazem HCl 180 mg PO QDAY #0 07/14/16 07/10/20 History lisinopril 2.5 mg PO BEDTIME #0 07/14/16 07/10/20 History ascorbate calcium (vitamin C) 500 mg PO DAILY 07/10/20 07/10/20 History aspirin [Aspirin Child] 81 mg PO DAILY 07/10/20 07/10/20 History cholecalciferol (vitamin D3) 25 mcg PO DAILY 07/10/20 07/10/20 History [Vitamin D3] levothyroxine 100 mcg PO DAILY 07/10/20 07/10/20 History tuzzjkmoiyou-kzm-ptuh-FA-vit K 1 tab PO DAILY 07/10/20 07/10/20 History [Adults Multivitamin] vitamin B complex [B 1 tab PO BEDTIME 07/10/20 07/10/20 History Complex-Vitamin B12] warfarin See Rx Instructions .ROUTE .COMPLEX 07/10/20 07/10/20 History warfarin See Rx Instructions .ROUTE .COMPLEX 07/10/20 07/10/20 History Allergies Allergy/AdvReac Type Severity Reaction Status Date / Time No Known Drug Allergies Allergy Verified 07/10/20 15:03 Review of Systems Review of Systems ROS: Yes All systems reviewed with the patient and are negative except as otherwise documented (poor historian r/t TBI & UTI) Constitutional Constitutional: Reports system reviewed and no additional complaints, except as documented Genitourinary Genitourinary: Reports dysuria, Reports nocturia and Reports urinary frequency Exam Vital Signs (past 8 hours): - 07/10/20 22:51 07/10/20 23:38 07/11/20 03:00 Temperature 98.4 F 100 F H 98.6 F Pulse Rate 93 H 89 103 H Respiratory Rate 22 18 18 Blood Pressure 101/54 L 102/65 105/54 L Pulse Oximetry 95 94 94 Oxygen Delivery Method Room Air Oxygen Flow Rate 0 Narrative Exam Narrative: General: Patient is a well-developed, well-nourished male in no distress at this time. HEENT: Normocephalic, atraumatic, extraocular muscles intact, oral pharynx is clear and mucous membranes are moist. Neck is supple and symmetric, trachea is midline, no adenopathy, no thyroid enlargement, nontender, no masses palpated. Negative for JVD Chest: Normal AP diameter and contour without kyphoscoliosis, no nasal flaring, retractions, or tachypneic labored Lungs: Auscultation of all lung mario are clear without adventitious sounds, wheezes, rhonchi, or rales. Cardio: S1 & S2 with regular rate and rhythm without murmur, rubs, or gallops, no carotid bruit, no cardiac pulsations present. Abdomen: Soft nontender, negative for organomegaly, or masses. Bowel sounds are present in all 4 quadrants without guarding or rebound, no CVA tenderness. Musculoskeletal: Muscle strength and tone are equal within normal limits, no deformity, Ollie crepitus, effusions, cyanosis, clubbing or edema present. Full range of motion intact radial and pedal pulses are normal. Skin: Warm dry and intact without rashes, ulcerations or petechiae. Neuro: Alert and orientated x3, strength is +5/5 in all extremities, sensation to touch intact, no gross deficits noted of cranial nerves. Psych: Patient has a well-kept appearance, appropriate affect, mental status attitude thought context and judgment are appropriate for age. Objective Labs Result Diagrams: 07/11/20 05:15 07/11/20 05:15 Labs: Laboratory Results - last 24 hr 07/10/20 07/10/20 07/10/20 15:03 15:07 15:22 WBC 19.1 H RBC 4.18 L Hgb 13.1 L Hct 38.9 L MCV 93.1 MCH 31.4 MCHC 33.7 RDW 13.0 Plt Count 183 Neut % (Auto) 86.6 H Lymph % (Auto) 6.5 L [place] % (Auto) 6.6 Eos % (Auto) 0.1 L Baso % (Auto) 0.2 Neut # (Auto) 33660 H Lymph # (Auto) 1200 [place] # (Auto) 1300 H Eos # (Auto) 0 Baso # (Auto) 0 PT INR APTT Sodium Potassium Chloride Carbon Dioxide BUN Creatinine Estimated GFR BUN/Creatinine Ratio Glucose Lactate Calcium Phosphorus Magnesium Total Bilirubin AST ALT Alkaline Phosphatase NT-Pro-B Natriuret Pep Total Protein Albumin Globulin Albumin/Globulin Ratio Lipase Procalcitonin Urine Color [place] Urine Appearance Cloudy Urine pH 6.0 Ur Specific [place] 1.020 Urine Protein 3+ H Urine Glucose (UA) Negative Urine Ketones Trace H Urine Occult Blood 3+ H Urine Nitrate Positive Urine Bilirubin 1+ H Ur Bilirubin Confirm Negative Urine Urobilinogen 1.0 Ur Leukocyte Esterase 1+ H Urine RBC 10-30/hpf H Urine WBC 5-10/hpf H Ur Squamous Epith Cells 0-1 /hpf Urine Bacteria Few (2-10) H Ur Culture Indicated? Specimen cultured SARS-CoV-2 (PCR) Negative 07/10/20 07/10/20 07/10/20 15:22 15:22 15:22 WBC RBC Hgb Hct MCV MCH MCHC RDW Plt Count Neut % (Auto) Lymph % (Auto) [place] % (Auto) Eos % (Auto) Baso % (Auto) Neut # (Auto) Lymph # (Auto) [place] # (Auto) Eos # (Auto) Baso # (Auto) PT 31.9 H INR 2.8 H APTT 37 H Sodium 135 L Potassium 3.9 Chloride 104 Carbon Dioxide 24 BUN 16 Creatinine 1.15 Estimated GFR > 60.0 BUN/Creatinine Ratio 13.9 Glucose 90 Lactate Calcium 9.2 Phosphorus Magnesium Total Bilirubin 1.2 AST 31 ALT 19 Alkaline Phosphatase 56 NT-Pro-B Natriuret Pep Total Protein 8.2 Albumin 4.5 Globulin 3.7 Albumin/Globulin Ratio 1.2 Lipase 43 Procalcitonin 0.55 H Urine Color Urine Appearance Urine pH Ur Specific [place] Urine Protein Urine Glucose (UA) Urine Ketones Urine Occult Blood Urine Nitrate Urine Bilirubin Ur Bilirubin Confirm Urine Urobilinogen Ur Leukocyte Esterase Urine RBC Urine WBC Ur Squamous Epith Cells Urine Bacteria Ur Culture Indicated? SARS-CoV-2 (PCR) 07/10/20 07/11/20 07/11/20 15:22 05:15 05:15 WBC 20.1 H RBC 3.66 L Hgb 11.5 L Hct 34.0 L MCV 92.9 MCH 31.4 MCHC 33.8 RDW 12.7 Plt Count 134 L Neut % (Auto) 81.9 H Lymph % (Auto) 10.3 L [place] % (Auto) 6.9 Eos % (Auto) 0.2 L Baso % (Auto) 0.7 Neut # (Auto) 28167 H Lymph # (Auto) 2100 [place] # (Auto) 1400 H Eos # (Auto) 0 Baso # (Auto) 100 PT 30.3 H INR 2.7 H APTT 33 Sodium Potassium Chloride Carbon Dioxide BUN Creatinine Estimated GFR BUN/Creatinine Ratio Glucose Lactate 1.8 Calcium Phosphorus Magnesium Total Bilirubin AST ALT Alkaline Phosphatase NT-Pro-B Natriuret Pep Total Protein Albumin Globulin Albumin/Globulin Ratio Lipase Procalcitonin Urine Color Urine Appearance Urine pH Ur Specific [place] Urine Protein Urine Glucose (UA) Urine Ketones Urine Occult Blood Urine Nitrate Urine Bilirubin Ur Bilirubin Confirm Urine Urobilinogen Ur Leukocyte Esterase Urine RBC Urine WBC Ur Squamous Epith Cells Urine Bacteria Ur Culture Indicated? SARS-CoV-2 (PCR) 07/11/20 05:15 WBC RBC Hgb Hct MCV MCH MCHC RDW Plt Count Neut % (Auto) Lymph % (Auto) [place] % (Auto) Eos % (Auto) Baso % (Auto) Neut # (Auto) Lymph # (Auto) [place] # (Auto) Eos # (Auto) Baso # (Auto) PT INR APTT Sodium 132 L Potassium 3.7 Chloride 106 Carbon Dioxide 22 BUN 16 Creatinine 1.05 Estimated GFR > 60.0 BUN/Creatinine Ratio 15.2 Glucose 95 Lactate Calcium 7.9 L Phosphorus 2.9 Magnesium 1.5 L Total Bilirubin 1.4 H AST 34 ALT 21 Alkaline Phosphatase 49 NT-Pro-B Natriuret Pep 4140 H Total Protein 6.5 Albumin 3.4 L Globulin 3.1 Albumin/Globulin Ratio 1.1 Lipase Procalcitonin Urine Color Urine Appearance Urine pH Ur Specific [place] Urine Protein Urine Glucose (UA) Urine Ketones Urine Occult Blood Urine Nitrate Urine Bilirubin Ur Bilirubin Confirm Urine Urobilinogen Ur Leukocyte Esterase Urine RBC Urine WBC Ur Squamous Epith Cells Urine Bacteria Ur Culture Indicated? SARS-CoV-2 (PCR) Assessment & Plan Assessment & Plan narrative: 1. Acute UTI, complicated, demonstrated by leukocytosis, fever, encephalopathy, stable condition, acute present on admission -rule out sepsis (admitting SOFA score: 0) or developing sepsis, cystitis vs. pyelonephritis vs. epididymitis vs. prostatitis vs.nephrolithiasis. -Vital Signs upon admit temp 100.3?, BP 155/103, HR 96, RR 17, 95% on room air. Patient's labs WBC of 19.1, HGB 13.1, HCT 38.9, PLT 134, neutrophils 00997, sodium 135, PTT 31.9, PTT 37, INR 2.8, lactate is negative, procalcitonin 0.55, patient had a negative SOFA score on admit. Urinalysis: Urine protein 3+, occult blood 3+, nitrates positive, bilirubin 1+, leuko Estrace 1+: Urine culture pending, blood cultures pending. CXR:Normal for age, source of current sepsis symptoms is not seen. Head CT:No acute intracranial hemorrhage. No acute intracranial abnormality. Patient given 1 g Rocephin/Zosyn 4.5 g in ER, patient be admitted for acute UTI, encephalitis, hypertensive urgency, fever, leukocytosis. -patient to be monitored on tele medicine, vital signs q.4 hours, intake and output monitored Q shift,weight measure daily, diet: Clear liquids patient may advance as tolerated -IV fluid: Patient had 2 L of LR bolus in ER, 3rd L LR bolus ordered- reassess after 3rd bolus and determine to increase fluids or restriction depending on volume status.92%-O2 saturation -ordered meropenem 1 g q.8 hours, and vancomycin per pharmacy, abdominal ultrasound to rule out obstruction. -check orthostatics upon admission and once per shift, activity as tolerated, strict I&O, daily weights, call for urinary output less than 200 mL per shift, temp >38.5, systolic <100 or Heart rate >110 or an SaO2 less than 92%, -labs ordered: A.m. to include troponin, lactate, D-dimer, PSA, TSH daily: CBC, CMP, PT. blood cultures x2 and urine culture pending -will continue Rocephin 1 g Q 24 hours, if patient not improving in 48-72 hours will consider ordering: labs UA with microscopy, Mag, phosphate, FeNa, urinary Na, urine osmolality, urine specific gravity, and urine sediment, renal/ abdominal ultrasound and/or CT abdominal pelvis -consults ordered physical therapy, occupational therapy, discharge planning. -prevention vaccine: Recommend verification patient has received yearly flu vaccine, shingles, pneumonia 2. Hypertension (hypertensive urgency), acute on chronic, present on admission, uncontrolled -continue patient's diltiazem and lisinopril 3. Hypothyroidism, on chronic, present on admission control unknown -continue patient's levothyroxine 100 mcg per day 4. Hyperlipidemia, chronic, not present on admission, control unknown -continue patient's simvastatin Code status: Full code Surrogate decision maker: Spouse Katja Sierra ROVERTO PCR: Negative VTE/DVT prophylaxis: Patient on Coumadin, and SCDs Quality VTE Deep Vein Thrombosis/Pulmonary Embolism Present on Admission: No
[2020-07-11 06:26] LABS: Procalcitonin 1.44 ng/mL (<0.5)
--- NOTE | 2020-07-11 06:31 | DI.US.S_ITS ---
PROCEDURE: US ABDOMEN COMPLETE INDICATIONS: RULE OUT OBSTRUCTION TECHNIQUE: Real-time scanning was performed of the abdominal and retroperitoneal organs, with image documentation. COMPARISON: None. FINDINGS: Liver: Liver is normal in size and homogeneous in echotexture. Direction of flow within the portal vein is normal. Gallbladder: The gallbladder contains 2 nonmobile stones within the gallbladder neck measuring up to 1.2 cm and 2.1 cm respectively. The gallbladder is overall somewhat distended at 4.3 x 5.5 x 12.0 cm. Biliary ducts: Intrahepatic bile ducts are non-dilated. Extrahepatic bile duct caliber measures 5.0 mm. Normal is 6-7 mm or less in diameter, or 10 mm or less post-cholecystectomy. Pancreas: The pancreas is poorly visualized due to bowel gasl. Spleen: Spleen is normal in size and homogeneous in echotexture. Kidneys: Kidneys are normal in size and echotexture. Right kidney measures 11.3 cm long; left kidney measures 13.7 cm long. No hydronephrosis or nephrolithiasis. No solid masses. Aorta: Visualized aorta is normal in caliber at less than 3 cm. Iliacs: Proximal common iliac arteries are normal in caliber at less than 2.5 cm. IVC: Intrahepatic inferior vena cava is patent. Miscellaneous: No free abdominal fluid. IMPRESSION: Gallbladder hydrops, nonmobile stones within the gallbladder neck. Gallbladder wall thickness however is normal at 2.7 mm. The findings are suggestive of gallbladder outflow restriction or obstruction. Bile duct distention is not present, however. Dictated by: Baljinder Vizcaino M.D. on 07/11/2020 at 9:08 Approved by: Baljinder Vizcaino M.D. on 07/11/2020 at 9:11
[2020-07-11 06:44] LABS: Troponin I < 0.012 ng/mL (0.01-0.034)
[2020-07-11] MEDS: MEROPENEM 1 GM in SODIUM CHLORIDE 0.9% 100 ML 200 ML IV ×2 (06:44→16:47)
[2020-07-11 06:54] LABS: Free T4, Direct Thyroxine 1.96 ng/dL (0.78-2.19)
[2020-07-11 07:23] LABS: Prostate Specific Antigen 18.2 ng/mL (0.10-4.00)
[2020-07-11 07:29] LABS: D Dimer 345 ng/mL (<230)
[2020-07-11] MEDS: LACTATED RINGERS 1,000 ML 1000 ML IV (08:05)
[2020-07-11 09:24] LABS: Lactate (Lactic Acid) 1.5 mmol/L (0.7-2.1)
[2020-07-11] MEDS: CEFTRIAXONE 1 GM/50 ML FROZ.PIGGY IV (09:24)
[2020-07-11] MEDS: DOCUSATE 100 MG CAPSULE PO ×2 (09:24→20:18)
[2020-07-11] MEDS: LACTATED RINGERS 1,000 ML 100 ML IV (09:30)
--- NOTE | 2020-07-11 09:40 | PT.IIE ---
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 stated that pt has a transfer pole next to his bed that he uses to stand and transfer to sit on 4WW and uses 4WW as a w/c to get to the toilet. spouse stated that she encourages pt to ambulate using 4WW but unable to ambulate far. spouse uses a transport chair for outdoor mobility. 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 Social History Household Members spouse Living Arrangements House Number of Floors (Floors) Two Floors Number of Stairs To Enter/Railing? pt stays on main level of the house ramp to enter Home Environment Standard Height Toilet,Walk in Shower,Ramp Home Equipment Four Wheel Walker,Shower Seat with Backrest,Hand Held Shower ,Grab Bars Near Toilet Additional Social History Comment pt has transfer pole next to the bed M2 PT-IP Current Condition Start: 07/11/20 10:30 Freq: NEEDED Status: Active Protocol: Document 07/11/20 09:40 AB (Rec: 07/11/20 10:44 AB [email or web address]) Physical Therapy Current Condition Current Condition Evaluation Date 07/11/20 Treatment Diagnosis UTI; difficulty in walking Onset Date 07/10/20 Precautions Other Precautions falls M3 PT-IP Subjective Start: 07/11/20 10:30 Freq: NEEDED Status: Active Protocol: Document 07/11/20 09:40 AB (Rec: 07/11/20 10:44 AB [email or web address]) Subjective Physical Therapy Visit Type Type Initial Evaluation Visit Start Time 09:40 Visit Stop Time 10:24 Total Visit Minutes 44 Number of EXPLOSIVE OPERATOR FUSE Visits 0 Physical Therapy Visit Comments Patient Comments pt is agreeable to do PT Therapy Pain Assessment Pain Present Pain Present Denied Pain M4 PT-IP Mobility and Gait Start: 07/11/20 10:30 Freq: NEEDED Status: Active Protocol: Document 07/11/20 09:40 AB (Rec: 07/11/20 10:44 AB [id number]) PT-Bed Mobility Assessment Supine to Sit Supine to Sit Minimal Assistance Scooting Scooting to Edge of Bed Contact Guard Assistance PT-Transfer Assessment Sit to and From Stand Sit to and from Stand Maximum Assistance,2 Person Assistance,Use of Upper Extremities Equipment Transfer Assistive Device Gait Belt,Front Wheeled Walker Orthotic/Prosthetic Devices or Brace: No Transfers Transfer Destination Chair Transfer Technique Stand Step Pivot Transfer Ability Level of Assist Maximum Assistance,2 Person Assistance,Use of Upper Extremities Comments Mobility Comments Bp monitored: BP in supine: 92 /57 WI 102. pt completed supine to sit min A and cues. pt was able to sit on EOB CGA . BP checked in sittin/ 60 WI 95. completed sit to stand max A x 2 and max cues. tolerated ~ 40 sec of standing using FWW for support max A x 2 and max cues. BP in standin/86 WI 112. (+) tremors/shaking greater on BLE . pt sat back on EOB. (+) SOB. Pt without c/o dizziness /lightheadedness. agreed to get up again and sit on chair and completed sit to stand and step transfer using FWW max A x 2 and max cues. required assist with FWW use and moving trunk to the chair. required max A x 1-2 for controlled descent. positioned pt on chair. call light and table placed within reach. BP checked sitting on chair: 109/ 60 WI 126. Left pt with spouse in room. informed spouse regarding SNF rehab recommendation at this time. spouse understood. Gait Assessment Comments Gait Comments unable at this time PT-Balance Assessment Sitting Balance and Reactions Static Sitting Balance Ability Good Dynamic Sitting Balance Ability Fair Standing Balance and Reactions Static Standing Balance Ability Poor Dynamic Standing Balance Ability Poor Device Used FWW M5 PT-IP Objective Assessments Start: 07/11/20 10:30 Freq: NEEDED Status: Active Protocol: Document 07/11/20 09:40 AB (Rec: 07/11/20 10:44 AB [id number]) Orientation Orientation/Cognition Level of Alertness Alert Orientation Name,Place,Situation Language Function Ability Hard of Hearing Safety Awareness Decreased Safety Awareness Strength Lower Extremity Strength Assessment Right Impaired Hip 3+/5 Knee 3+/5 Ankle (+) foot drop Comments Strength Comments spouse stated that pt has an AFO for RLE but only uses it when he goes to PT; spouse stated that pt does not walk much at home for him to use AFO Sensation Assessment Sensation Gross Sensation Right LE Impaired Sensation Description Numbness Comments Sensation Comments RLE numbness and more so on sole of foot M6 PT-IP Treatment Start: 07/11/20 10:30 Freq: NEEDED Status: Active Protocol: Document 07/11/20 09:40 AB (Rec: 07/11/20 10:44 AB [id number]) Physical Therapy Treatment Education Education Provided Safety M7 PT-IP Assessment and Plan Start: 07/11/20 10:30 Freq: NEEDED Status: Active Protocol: Document 07/11/20 09:40 AB (Rec: 07/11/20 10:44 AB [id number]) PT Summary Assessment and Plan Potential Rehabilitation Potential Fair Status of Condition at Evaluation Evolving Summary Impairments Pain,ROM,Strength,Balance, Coordination,Sensation,Tone, Cognition,Bed Mobility, Transfers,Gait,Activity Tolerance Assessment Summary pt requiring max A x 2 and max cues with transfers and unable to ambulate at this time. recommending SNF rehab at this time and spouse is aware. will continue to assess progress. Goals Bed Mobility Goal Independent Transfer Goal Contact Guard Assistance,Four Wheeled Walker Gait Goal Contact Guard Assistance,Four Wheel Walker Gait Distance 50 Days to Meet Goals 10 Frequency of Treatment Frequency Of Treatment Once a Day Treatment Plan Physical Therapy Treatment Plan Bed Mobility Training,Transfer Training,Gait Training, Therapeutic Exercise,Balance Retraining,Discharge Planning, Hot or Cold Pack,Neuromuscular Re-ed,Coordination Retraining Recommendations To Nursing Amount of Assist Needed 2 Person Assist Discharge Recommendations PT Discharge Recommendations SNF Rehab Transportation Needs at Discharge Wheelchair/Cabulance
[2020-07-11] MEDS: VANCOMYCIN 1,250 MG/250 ML PIGGYBACK 166.667 MG IV (10:15)
--- NOTE | 2020-07-11 10:52 | OT.IP.EVAL ---
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 (Rec: 07/11/20 18:21 [facility] [id number]) Medical Review Prior Functional Status Medical History Reviewed Yes Communication able to make needs known; [facility] Mobility and Gait spouse in room with pt; stated that pt is modified independent with transfers and ambulation using 4WW. stated that pt has a transfer pole next to his bed that he uses to stand and transfer to sit on 4WW and uses 4WW as a w/c to get to the toilet. spouse stated that she encourages pt to ambulate using 4WW but unable to ambulate far. spouse uses a transport chair for outdoor mobility. 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 Activities of Daily Living and IADL's Pt has multiple grab bars in the bathroom that he uses to help get to the toilet and shower. Prior per pt states able to do all his dressing, toileting and showering needs. Pt's does the medications, bills, and chores . Social History Household Members spouse Living Arrangements House Number of Floors (Floors) Two Floors Number of Stairs To Enter/Railing? pt stays on main level of the house ramp to enter Home Environment Standard Height Toilet,Walk in Shower,Ramp Home Equipment Four Wheel Walker,Shower Seat with Backrest,Hand Held Shower ,Grab Bars Near Toilet,Grab Bars In Shower Additional Social History Comment pt has transfer pole next to the bed M2 OT-IP Current Condition Start: 07/11/20 17:56 Freq: Status: Active Protocol: Document 07/11/20 10:52 [facility] (Rec: 07/11/20 18:21 [facility] [id number]) Occupational Therapy Current Condition Current Condition Evaluation Date 07/11/20 Treatment Diagnosis acute UTI, prostatitis Diagnosis Onset Date 07/10/20 M3 OT- IP Subjective and Pain Start: 07/11/20 17:56 Freq: Status: Active Protocol: Document 07/11/20 10:52 [facility] (Rec: 07/11/20 18:21 [facility] [id number]) OT- Subjective Occupational Therapy Visit Type Type Initial Evaluation Visit Start Time 10:52 Visit Stop Time 14:10 Total Visit Minutes 40 Notes Pt seen from split [id number] and [id number]. Occupational Therapy Visit Comments Patient Comments Pt's states to bring in his 4WW and therefore saw pt in the PM. Patient/Caregiver Goals To go home. OT Pain Assessment Pain When Pain Assessed At Rest Pain Present Pain Present Denied Pain M4 OT- IP ADL's Start: 07/11/20 17:56 Freq: Status: Active Protocol: Document 07/11/20 10:52 [facility] (Rec: 07/11/20 18:21 [facility] [id number]) OT [id number] Comments OT Self-Feeding Comments NOt at meal time. OT ADL-Grooming Comments OT Grooming Comments NOt performed. OT ADL-Oral Care Comments Oral Care Comments Not perfromed. OT ADL-Dressing General Eval Lower Body Dressing Ability Moderate Assistance Comments OT Dressing Comments Pt able sit to do his socks, but needing assist to help pull up his brief over his hips due to decreased balance . OT ADL-Toileting General Evaluation Toileting Ability Maximum Assistance Areas Needing Assistance Manage Clothing,Perform Perineal Hygiene Comments OT Toileting Comments Pt not able to tell that he needed be changed. Pt's able to assist to quita/doff his brief and assist with hygiene needs with good safety and therapist there to assist LOIS for balance. OT ADL-Bathing Comments OT Bathing Comments Not performed. M5 OT- IP IADL's Start: 07/11/20 17:56 Freq: Status: Active Protocol: Document 07/11/20 10:52 [facility] (Rec: 07/11/20 18:21 [facility] [id number]) OT-Instrumental Activities of Daily Living Medication Management Medication Management Caregiver Administers Money Management Money Management Caregiver Provides Assistance Meal Preparation Meal Preparation Caregiver Provides Assist Drill Press Tender Drill Press Tender Caregiver Provides Assist M6 OT- IP Functional Cognition Start: 07/11/20 17:56 Freq: Status: Active Protocol: Document 07/11/20 10:52 [facility] (Rec: 07/11/20 18:21 [facility] [id number]) Cognitive Factors Limiting Selfcare Function Cognitive Ability Level of Alertness Alert Patient Orientation Name,Place,Situation Attention Span Ability Capable of Focused Attention, Capable of Sustained Attention Ability to Follow Commands Able to Follow One Step Commands with Increased Time, Able to Follow One Step Commands with Repetition Memory Description Short Term Impaired Safety Awareness Underestimates Need for Assistance Problem Solving Ability Unable to Identify Errors, Needs Assist to Identify Solutions Cognitive Comments Cognitive Assessment Comments Pt history of TBI, pt's states getting closer to baseline. OT- Vision and Hearing OT- Hearing Assessment OT- Hearing Assessment WFL M7 OT- IP Mobility and Balance Start: 07/11/20 17:56 Freq: Status: Active Protocol: Document 07/11/20 10:52 [facility] (Rec: 07/11/20 18:21 [facility] [id number]) OT-Transfer Assessment Sit to and From Stand Sit to and from Stand Maximum Assistance,1 Person Assistance Transfers Transfer Ability Minimal Assistance,Maximum Assistance,1 Person Assistance ,2 Person Assistance Technique Transfer Destination Bed,Chair Transfer Technique Stand Step Pivot Devices Transfer Assistive Devices Gait Belt,4 Wheeled Walker Comments Mobility Comments MAX A X1 and CGA by therapist to assist for safety to stand from his . Pt able to take a few steps and transfer to the bed from his with good safety with MAX A X 1 and LOIS from therapist. Pt uses a transfer pole at home to help get into and out of the bed. Pt's educated how to quita/doff the gait belt with good safety and demonstration. OT- Balance Assessment Sitting Balance and Reactions Static Sitting Balance Ability Good Dynamic Sitting Balance Ability Fair Standing Balance and Reactions Static Standing Balance Ability Poor M8 OT- IP Objective Assessments Start: 07/11/20 17:56 Freq: Status: Active Protocol: Document 07/11/20 10:52 [facility] (Rec: 07/11/20 18:21 [facility] [id number]) OT Gross Range of Motion Upper Extremity Range of Motion Assessment Within Functional Limits OT Strength Upper Extremity Strength Assessment Within Functional Limits OT- Coordination Assessment Upper Extremity Finger to Nose Test Within Functional Limits M9 OT- IP Assessment and Plan Start: 07/11/20 17:56 Freq: Status: Active Protocol: Document 07/11/20 10:52 [facility] (Rec: 07/11/20 18:21 [facility] [id number]) OT Summary Assessment and Plan Potential Rehabilitation Potential Good Analytic Complexity at Evaluation Low Summary OT Impairments Balance,Functional Cognition, Functional Mobility,Dressing, Toileting,Bathing,Toilet Transfers,Shower Transfers, Activity Tolerance Progress Towards Goals Progressing Toward Goals Assessment Summary Pt low complexity and main barriers are weakness and now needing extensive assist for all ADL and functional mobility needs. Caregiver training has been initiated with his for gait belt and transfers. Pt's feels confident to be able to assist pt at home as there have extensive equipment set- up at home of transfer poles, grab bars throughout the bathroom, and also able to use a wc or transport chair if needed. Therefore home with assist pending caregiver training versus short skilled rehab stay. Goals Grooming Goal Independent Dressing Goal Independent Toileting Goal Independent Bathing Goal Standby Assistance Toilet Transfer Goal Independent Shower Transfer Goal Independent Patient/Caregiver Education Goal Caregiver Independent Assisting Patient Days to Meet Goals 10 Frequency of Treatment Frequency Of Treatment Once a Day Treatment Plan OT Treatment Plan ADL Training,Functional Cognition Training,Functional Mobility,Patient/Family Education,Discharge Planning Other Treatment Recommendations and Next caregiver training with Treatment Focus Discharge Recommendations OT Discharge Recommendations Home with Assistance,SNF Rehab ,Outpatient PT Transportation Needs at Discharge Private Vehicle,Wheelchair/ Cabulance
[2020-07-11] MEDS: MAGNESIUM SULFATE 2 GM/50 ML PIGGYBACK IV (13:35)
--- NOTE | 2020-07-11 17:01 | PM.PN.1 ---
Subjective Subjective Date Patient Seen: 07/11/20 Interval history: Patient is 80-year-old male with history of closed TBI, chronic atrial fibrillation, on chronic anticoagulation, hypertension, hypothyroidism presented with fever, confusion and acute difficulty urinating for past several days. Patient reports improvement in urinary symptoms and mentation. His endorses he was confused for about 6 hours prior to admission. Fever seems to be resolving as well. Exam Vital Signs (past 8 hours): - 07/11/20 09:27 07/11/20 09:54 07/11/20 11:32 Temperature 98.4 F Pulse Rate 111 H 106 H Pulse Rate [Orthostatic Lying] 111 H Pulse Rate [Orthostatic Sitting] 112 H Respiratory Rate 19 16 Blood Pressure 102/60 108/53 L Blood Pressure [Orthostatic Lying] 102/60 Blood Pressure [Orthostatic Sitting] 108/66 Pulse Oximetry 94 98 07/11/20 13:00 07/11/20 15:35 Temperature 99.5 F Pulse Rate 105 H Pulse Rate [Orthostatic Lying] Pulse Rate [Orthostatic Sitting] Respiratory Rate 20 Blood Pressure 102/53 L Blood Pressure [Orthostatic Lying] Blood Pressure [Orthostatic Sitting] Pulse Oximetry 98 100 Oxygen Delivery Method Room Air Oxygen Flow Rate 0 Narrative Exam Narrative: General: Alert and sitting in chair in no acute distress Lungs: Clear to auscultation Heart: Irregularly irregular Abdomen: Soft, nontender Extremities: No edema Neurological: Affect normal, oriented to person and place, memory recall slightly slow but appears at baseline Objective Labs Result Diagrams: 07/11/20 05:15 07/11/20 05:15 Labs: Laboratory Results - last 24 hr 07/11/20 07/11/20 07/11/20 05:15 05:15 05:15 WBC 20.1 H RBC 3.66 L Hgb 11.5 L Hct 34.0 L MCV 92.9 MCH 31.4 MCHC 33.8 RDW 12.7 Plt Count 134 L Neut % (Auto) 81.9 H Lymph % (Auto) 10.3 L Kemper % (Auto) 6.9 Eos % (Auto) 0.2 L Baso % (Auto) 0.7 Neut # (Auto) 00908 H Lymph # (Auto) 2100 Kemper # (Auto) 1400 H Eos # (Auto) 0 Baso # (Auto) 100 PT 30.3 H INR 2.7 H APTT 33 D-Dimer Sodium 132 L Potassium 3.7 Chloride 106 Carbon Dioxide 22 BUN 16 Creatinine 1.05 Estimated GFR > 60.0 BUN/Creatinine Ratio 15.2 Glucose 95 Lactate Calcium 7.9 L Phosphorus 2.9 Magnesium 1.5 L Total Bilirubin 1.4 H AST 34 ALT 21 Alkaline Phosphatase 49 Troponin I NT-Pro-B Natriuret Pep 4140 H Total Protein 6.5 Albumin 3.4 L Globulin 3.1 Albumin/Globulin Ratio 1.1 Prostate Specific Ag Procalcitonin TSH Free T4 07/11/20 07/11/20 07/11/20 05:15 05:15 05:15 WBC RBC Hgb Hct MCV MCH MCHC RDW Plt Count Neut % (Auto) Lymph % (Auto) Kemper % (Auto) Eos % (Auto) Baso % (Auto) Neut # (Auto) Lymph # (Auto) Kemper # (Auto) Eos # (Auto) Baso # (Auto) PT INR APTT D-Dimer Sodium Potassium Chloride Carbon Dioxide BUN Creatinine Estimated GFR BUN/Creatinine Ratio Glucose Lactate Calcium Phosphorus Magnesium Total Bilirubin AST ALT Alkaline Phosphatase Troponin I < 0.012 NT-Pro-B Natriuret Pep Total Protein Albumin Globulin Albumin/Globulin Ratio Prostate Specific Ag Procalcitonin 1.44 H TSH 0.20 L Free T4 1.96 07/11/20 07/11/20 07/11/20 05:15 06:55 09:00 WBC RBC Hgb Hct MCV MCH MCHC RDW Plt Count Neut % (Auto) Lymph % (Auto) Kemper % (Auto) Eos % (Auto) Baso % (Auto) Neut # (Auto) Lymph # (Auto) Kemper # (Auto) Eos # (Auto) Baso # (Auto) PT INR APTT D-Dimer 345 H Sodium Potassium Chloride Carbon Dioxide BUN Creatinine Estimated GFR BUN/Creatinine Ratio Glucose Lactate 1.5 Calcium Phosphorus Magnesium Total Bilirubin AST ALT Alkaline Phosphatase Troponin I NT-Pro-B Natriuret Pep Total Protein Albumin Globulin Albumin/Globulin Ratio Prostate Specific Ag 18.2 H Procalcitonin TSH Free T4 [facility] Medical History (Updated 07/11/20 @ 06:36 by JULIA Drew-IGNACIO) 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 1. Acute prostatitis, improving -patient presenting with fever, acute dysuria with difficulty emptying bladder, leukocytosis -elevated PSA of 18 supportive of acute prostatitis, prior values not available -blood cultures negative, urine culture growing Gram-negative bacilli -continue meropenem 1 g IV q.8 hours, discontinue other antibiotics, to complete 2 week antibiotic course with p.o. on discharge -Hep-Lock IV -WBC 20 K, procalcitonin 1.4, not improved, but clinically he is looking a lot better and has been afebrile since on antibiotic -BP low normal but patient never overtly hypotensive 2. Acute metabolic encephalopathy, resolving -patient with about 6 hours of confusion, not making sense, reported by spouse -treat underlying urinary infection 3. Chronic atrial fibrillation, on long-term warfarin anticoagulation -INR 2.7, therapeutic-continue warfarin per home routine -recheck INR 07/12 -has been mildly tachycardic off diltiazem -tele 4. Hypertension, chronic -BP low normal, holding patient's lisinopril and diltiazem 5. Hypothyroidism -TSH 0.2 with normal free T4, could be euthyroid sick -continue patient's home dosing of levothyroxine 100 mcg daily -recheck TSH in a month 6. History of TBI -patient with impaired balance and uses 4WW since TBI, currently requiring max assist, although states he is close to baseline and their preference is for return home -reassess with PT daily, I anticipate patient will have improvement as his infection is treated DVT prophylaxis: On warfarin Code status: Full code Surrogate decision maker: Spouse Quality VTE Deep Vein Thrombosis/Pulmonary Embolism Present on Admission: No
[2020-07-11] MEDS: SIMVASTATIN 40 MG TABLET PO (20:18)
[2020-07-11] MEDS: WARFARIN 2 MG TABLET 6 MG PO (20:21)
[2020-07-12] MEDS: MEROPENEM 1 GM in SODIUM CHLORIDE 0.9% 100 ML 200 ML IV ×3 (00:02→13:35)
[2020-07-12 01:17] LABS: Vancomycin Trough 5.5 ug/mL (10-20)
[2020-07-12 03:00] VITALS: O2SAT 98
[2020-07-12 04:52] VITALS: BP 109/65; PULSE 99; RESP 18; TEMP 37.1; O2SAT 98
[2020-07-12 05:37] LABS: Blood Urea Nitrogen 13 mg/dL (9-20); Calcium 8.1 mg/dL (8.4-10.2); Carbon Dioxide 25 mmol/L (22-32); Chloride 110 mmol/L (98-107); Estimated Glomerular Filt Rate > 60.0 mL/min (>60); Glucose 97 mg/dL (80-110); HEMOLYSIS < 15 (0-50); Potassium 3.7 mmol/L (3.4-5.1); Sodium 136 mmol/L (137-145)
[2020-07-12 05:39] LABS: Add Manual Diff / Slide Review NO; Basophils Absolute Auto 0 /uL (0-100); Basophils Percent Auto 0.3 % (0-2); Eosinophils Absolute Auto 200 /uL (0-450); Eosinophils Percent Auto 1.8 % (2-4); Hemoglobin 11.1 g/dL (13.5-17.5); Lymphocytes Absolute Auto 1700 /uL (1100-4500); Lymphocytes Percent Auto 13.9 % (25-40); Mean Corpuscular HGB Conc 33.6 % (30-36); Mean Corpuscular Hemoglobin 31.5 PG (26-34); Mean Corpuscular Volume 93.7 fL (80-100); Monocytes Absolute Auto 700 /uL (0-900); Monocytes Percent Auto 5.4 % (3-14); Neutrophils Absolute Auto 9900 /uL (1500-7000); Neutrophils Percent Auto 78.6 % (50-75); Platelet Count 136 X10^3/uL (150-400); Red Blood Cell Count 3.52 X10^6/uL (4.5-5.9); Red Cell Distribution Width 12.8 % (11.6-14.8); White Blood Cell Count 12.5 X10^3/uL (4.5-11.0)
[2020-07-12] MEDS: LEVOTHYROXINE 100 MCG TABLET PO (05:39)
[2020-07-12 05:55] LABS: Magnesium 2.3 mg/dL (1.6-2.3)
[2020-07-12] MEDS: SODIUM CHLORIDE 0.9% FLUSH 10 ML IV ×2 (06:29→09:20)
[2020-07-12] MEDS: SODIUM CHLORIDE 0.9% 250 ML 21 ML IV (06:30)
[2020-07-12 06:32] LABS: Procalcitonin 1.08 ng/mL (<0.5)
--- NOTE | 2020-07-12 06:49 | PC.NURSE ---
KEO Pack notified pt. having frequent loose stool this morning. Ordered to sent stool sample for C-diff. Placed pt. on Enteric/contact pt. precautions. Coordinator notified, will cont. POC & monitor.
--- NOTE | 2020-07-12 07:04 | PC.NURSE ---
patient had third BM in past few hrs, collected stool sample at RN's instruction for testing.
--- NOTE | 2020-07-12 08:05 | CM.DANOTE ---
Discharge Planning/Care Management DCP: assessment: late entry: case received yesterday, discussed in Team Rounds, with OT and PT and with pt and his Debbie. Pt admitted night of 07/10 to care of hospitalist team. PCP: Dr. Jose Alfredo Eubanks Payer: Josee and NURIA Bush Both pt and Brittany state they very much wish to d/c to home setting once pt is stable for d/c. Pt has been able to function at home with some specialized equipment and Debbie is discussing this with the therapy team and bringing in what she can that pt uses at home. He does use a transfer pole in the home. PT yesterday at first eval was recommending snf stay. OT saw pt in the afternoon and noted it looked like as pt recoveredf he may be able to manage at home with Brittany's support. Brittany states, I am very strong and capable of assisting him. Pt has been going to [facility] for last 3 years and sees PT [facility] primarily. Debbie says [facility] notice a decline in strength about a week before pt was admitted to the hospital and says the thought is that he was getting sick during that time. P: will see how pt is doing today and follow prn. Unclear if pt will want HH. They are both very cautious with anyone coming to the house due to COVID. Do see that overnight pt developed loose stools and with ? of C-diff. Test was pending. CM Discharge Assessment Start: 07/12/20 08:04 Freq: Status: Active Protocol: Document 07/12/20 08:04 ITV (Rec: 07/12/20 08:05 ITV [id number]) Discharge Planning Assessment Advance Directives? Yes: DPOA History Provided By Patient,Family Member,Medical Record Prior Living Arrangements House Household Members spouse Is patient alert and oriented? Yes White board Updated in Patient Room with Yes name and ext. 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
[2020-07-12 08:22] VITALS: BP 132/68; PULSE 119; RESP 12; TEMP 37.1; O2SAT 94
[2020-07-12 09:15] LABS: Clostridium Difficile Tox PCR Negative for C. diff
[2020-07-12] MEDS: ASPIRIN 81 MG CHEW TAB PO (09:19)
--- NOTE | 2020-07-12 09:58 | PT.IPTN ---
Current Diagnoses Urinary tract infection, site not specified (07/10/20) Physical Therapy Treatment Note M2 PT-IP Current Condition Start: 07/11/20 10:30 Freq: NEEDED Status: Active Protocol: Document 07/11/20 09:40 AB (Rec: 07/11/20 10:44 AB [id number]) Physical Therapy Current Condition Current Condition Evaluation Date 07/11/20 Treatment Diagnosis UTI; difficulty in walking Onset Date 07/10/20 Precautions Other Precautions falls M3 PT-IP Subjective Start: 07/11/20 10:30 Freq: NEEDED Status: Active Protocol: Document 07/12/20 09:58 AB (Rec: 07/12/20 11:12 AB [email or web address]) Subjective Physical Therapy Visit Type Type Treatment Note Visit Start Time 09:58 Visit Stop Time 10:38 Total Visit Minutes 40 Number of MATCHBOOK ASSEMBLER Visits 0 Physical Therapy Visit Comments Patient Comments pt is agreeable to do PT; spouse in room with pt M4 PT-IP Mobility and Gait Start: 07/11/20 10:30 Freq: NEEDED Status: Active Protocol: Document 07/12/20 09:58 AB (Rec: 07/12/20 11:12 AB [email or web address]) PT-Bed Mobility Assessment Supine to Sit Supine to Sit Standby Assistance Sit to Supine Sit to Supine Standby Assistance PT-Transfer Assessment Sit to and From Stand Sit to and from Stand Moderate Assistance,1 Person Assistance,Use of Upper Extremities Equipment Transfer Assistive Device Gait Belt,Front Wheeled Walker Orthotic/Prosthetic Devices or Brace: No Transfers Transfer Destination Chair Transfer Technique Stand Step Pivot Transfer Ability Level of Assist Moderate Assistance,Maximum Assistance,1 Person Assistance ,Use of Upper Extremities Comments Mobility Comments pt completed supine to sit SBA and was able to sit SBA. once seated, pt stated that he needs to use the toilet and has to lay back in bed. spouse stated that pt does not use the toilet at home but uses a urinal. pt prefers to lay back to use urina. pt completed sit to supine SBA. initiated assisting pt with urinal but pt already went and has BM as well. call NAC to assist. pt completed supine to sit SBA . caregiver trainind conducted. spouse was able to put safety belt on pt. pt can be impulsive. pt completed sit to stand with posterior LOB and has to sit back on EOB. pt educated on COG and techniques for sit to stand and maintaining balance during initial standing. pt completed sit to stand with spouse assisting min to mod A and cues. pt ambulated in room using 4WW with spouse assisting mod A ~ 10 ft. Sat on EOB again. agreed to sit up on chair. completed sit to stand with spouse assisting and step transfer to chair using 4WW mod to max A with spouse assisting. pt was trying to sit down midway during transfers. educated on positioning and safety during transfers. pt agreed to stay up on chair. positioned on chair. call light and table placed within reach. Gait Assessment Gait Gait Assistance Required: Moderate Assistance,1 Person Assist Distance (Feet) 10 Able to Maintain Weight Bearing Status Yes During Gait Assistive Devices Assistive Device 4 Wheeled Walker Orthotic/Prosthetic Devices or Brace: No Gait Deviations General Gait Pattern Ataxic,Decreased Stride Length ,Decreased Feet Clearance,Step -to Gait Factors Limiting Gait Function Factors Limiting Gait Function Decreased Activity Tolerance, Decreased Sensation,Decreased Strength,Difficulty Following Directions,Limited Range of Motion,Pain,Poor Balance,Poor Safety Awareness M5 PT-IP Objective Assessments Start: 07/11/20 10:30 Freq: NEEDED Status: Active Protocol: Document 07/11/20 09:40 AB (Rec: 07/11/20 10:44 AB [email or web address]) Orientation Orientation/Cognition Level of Alertness Alert Orientation Name,Place,Situation Language Function Ability Hard of Hearing Safety Awareness Decreased Safety Awareness Strength Lower Extremity Strength Assessment Right Impaired Hip 3+/5 Knee 3+/5 Ankle (+) foot drop Comments Strength Comments spouse stated that pt has an AFO for RLE but only uses it when he goes to PT; spouse stated that pt does not walk much at home for him to use AFO Sensation Assessment Sensation Gross Sensation Right LE Impaired Sensation Description Numbness Comments Sensation Comments RLE numbness and more so on sole of foot M6 PT-IP Treatment Start: 07/11/20 10:30 Freq: NEEDED Status: Active Protocol: Document 07/12/20 09:58 AB (Rec: 07/12/20 11:12 AB [email or web address]) Physical Therapy Treatment Education Education Provided Safety M7 PT-IP Assessment and Plan Start: 07/11/20 10:30 Freq: NEEDED Status: Active Protocol: Document 07/12/20 09:58 AB (Rec: 07/12/20 11:12 AB [email or web address]) PT Summary Assessment and Plan Potential Rehabilitation Potential Good Summary Impairments Pain,ROM,Strength,Balance, Coordination,Sensation,Tone, Cognition,Bed Mobility, Transfers,Gait,Activity Tolerance Progress Towards Goals Slow Progress due to Medical Issues Assessment Summary caregiver training conducted and spouse was able to assist pt. pt plans to go home and spouse will assist and pt to continue with outpt PT. Goals Bed Mobility Goal Independent Transfer Goal Contact Guard Assistance,Four Wheeled Walker Gait Goal Contact Guard Assistance,Four Wheel Walker Gait Distance 50 Days to Meet Goals 10 Frequency of Treatment Frequency Of Treatment Once a Day Treatment Plan Physical Therapy Treatment Plan Bed Mobility Training,Transfer Training,Gait Training, Therapeutic Exercise,Balance Retraining,Discharge Planning, Hot or Cold Pack,Neuromuscular Re-ed,Coordination Retraining Recommendations To Nursing Amount of Assist Needed 1 Person Assist Discharge Recommendations PT Discharge Recommendations Home with 21/12 Assist Available,Outpatient PT Transportation Needs at Discharge Wheelchair/Cabulance
--- NOTE | 2020-07-12 10:27 | PC.NURSE ---
Assess- Patient is A&Ox3. He denies pain, stool sample came back negative for C.DIFF. Patient voided and had an incontinent stool, he did know that he had to go to the bathroom and went before he was able to go to the bathroom. He is on IV antibiotics and took his medication without any problems.
[2020-07-12 11:00] VITALS: BP 120/85; PULSE 98; RESP 13; TEMP 37; O2SAT 99
--- NOTE | 2020-07-12 13:57 | CM.DPC ---
DCP: continued: case discussed in Team Round and with Dr. Lal stating that if C-diff was negative pt was ready for d/c to home. Test returned -. PT worked with pt and his and pt will be leaving for home within the hour.
--- NOTE | 2020-07-12 18:53 | PM.DS.1 ---
History of Present Illness History of Present Illness Chief complaint: assisted fall Narrative: Patient is an 80-year-old male Rohit Sierra who presented to the ED for fever, his states he was up all night trying to urinate. Patient has a history of hypertension, hyperlipidemia, hypothyroidism, and traumatic brain injury, with head bleed. In the ED the was the historian and stated that she did notice that his speech was a little bit off this starting has a prior history of traumatic head bleed several years and has continued to have a traumatic head injury. 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 He ambulates with a walker. He was having some difficulty and fell. She did not appreciate any lateralizing weakness. She states that she did not hit his head. It was sort of a slow slide to the ground. He is on anticoagulants. Patient himself denies any pain, no chest pain or shortness of breath, no persistent vomiting. Patient has had any major changes to bowel movements. He lives at home with his . Upon admit to the floor patient was alert and orientated his historical recall was questionable. Patient stated that his pain had resolved which was slight left hip pain that radiated to his back which resolved once he repositioned in the bed to lying on his left side. Patient denies chest pain shortness of breath nausea vomiting body aches chills or fever. His did not accompany him up to the floor for admit. Patient's Vital Signs upon admit temp 100.3?, BP 155/103, HR 96, RR 17, 95% on room air. Patient's labs WBC of 19.1, HGB 13.1, HCT 38.9, PLT 134, neutrophils [id number], sodium 135, PTT 31.9, PTT 37, INR 2.8, lactate is negative, procalcitonin 0.55, patient had a negative SOFA score on admit. Urinalysis: Urine protein 3+, occult blood 3+, nitrates positive, bilirubin 1+, leuko Estrace 1+: Urine culture pending, blood cultures pending. CXR:Normal for age, source of current sepsis symptoms is not seen. Head CT:No acute intracranial hemorrhage. No acute intracranial abnormality. Patient given 1 g Rocephin/Zosyn 4.5 g in ER, patient be admitted for acute UTI, encephalitis, hypertensive urgency, fever, leukocytosis. Discharge Providers Provider Date of admission: 07/10/20 20:23 Discharge Date: 07/12/20 Primary care physician: Elver Eubanks MD Consults: 07/10/20 21:32 Consult to Discharge Planning Routine Comment: Consult to Occupational Therapy Evaluate & Treat Comment: Physician Instructions: Evaluate and treat Consult to Physical Therapy Evaluate & Treat Comment: Physician Instructions: Evaluate and Treat Discharge provider: Krish Lal MD Summary Hospital Course Discharge Diagnosis: 1. Acute prostatitis 2. PSA elevation likely secondary to 1. 3. Acute metabolic encephalopathy 4. Chronic atrial fibrillation 5. Long-term anticoagulation on warfarin 6. Hypertension 7. Hypothyroidism 8. History of TBI Patient is 80-year-old male with history of closed TBI, chronic atrial fibrillation, on chronic anticoagulation, hypertension, hypothyroidism presented with fever, confusion and acute difficulty urinating for past several days. 1. Acute prostatitis, improving -patient presenting with fever, acute dysuria with difficulty emptying bladder, leukocytosis -elevated PSA of 18 supportive of acute prostatitis, prior values not available -blood cultures negative, urine culture positive for pansensitive E coli -patient treated with IV antibiotics including meropenem and being discharged on oral Cipro to complete 14 day treatment course 2. Acute metabolic encephalopathy, resolved -patient with about 6 hours of confusion, not making sense, reported by spouse -treat underlying urinary infection 3. Chronic atrial fibrillation, on long-term warfarin anticoagulation -INR has been therapeutic -recheck INR at clinic on Saturday 07/15 4. Hypertension, chronic -restart lisinopril and diltiazem on discharge 5. Hypothyroidism -TSH 0.2 with normal free T4, could be euthyroid sick -continue patient's home dosing of levothyroxine 100 mcg daily -recheck TSH in a month 6. History of TBI -patient with impaired balance and uses 4WW since TBI -patient has substantial improvement in strength during course of hospitalization an able to return home with spouse Status at Discharge Cognitive/behavioral status at discharge: oriented Functional status at discharge: uses cane/walker Overall status at discharge: patient is progressing back to baseline Time Spent with Patient Time spent: Greater than 30 minutes Exam Vital Signs (past 8 hours): - 07/12/20 11:00 Temperature 98.6 F Pulse Rate 98 H Respiratory Rate 13 Blood Pressure 120/85 Pulse Oximetry 99 Oxygen Delivery Method Room Air Oxygen Flow Rate 0 Objective Labs Result Diagrams: 07/12/20 05:13 07/12/20 05:13 Labs: Laboratory Results - last 24 hr 07/12/20 07/12/20 07/12/20 00:27 05:13 05:13 WBC RBC Hgb Hct MCV MCH MCHC RDW Plt Count Neut % (Auto) Lymph % (Auto) Lanier % (Auto) Eos % (Auto) Baso % (Auto) Neut # (Auto) Lymph # (Auto) Lanier # (Auto) Eos # (Auto) Baso # (Auto) Sodium Potassium Chloride Carbon Dioxide BUN Creatinine Estimated GFR BUN/Creatinine Ratio Glucose Calcium Magnesium 2.3 Procalcitonin 1.08 H Vancomycin Trough 5.5 L C. difficile Tox (PCR) 07/12/20 07/12/20 07/12/20 05:13 05:13 08:00 WBC 12.5 H RBC 3.52 L Hgb 11.1 L Hct 33.0 L MCV 93.7 MCH 31.5 MCHC 33.6 RDW 12.8 Plt Count 136 L Neut % (Auto) 78.6 H Lymph % (Auto) 13.9 L Lanier % (Auto) 5.4 Eos % (Auto) 1.8 L Baso % (Auto) 0.3 Neut # (Auto) 9900 H Lymph # (Auto) 1700 Lanier # (Auto) 700 Eos # (Auto) 200 Baso # (Auto) 0 Sodium 136 L Potassium 3.7 Chloride 110 H Carbon Dioxide 25 BUN 13 Creatinine 0.81 Estimated GFR > 60.0 BUN/Creatinine Ratio 16.0 Glucose 97 Calcium 8.1 L Magnesium Procalcitonin Vancomycin Trough C. difficile Tox (PCR) Negative for c. 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 Please have your INR rechecked on Wednesday as antibiotics can raise your warfarin levels. Finish antibiotic course to treat acute prostatitis. Discharge orders & Medications Prescriptions: New ciprofloxacin HCl 500 mg tablet 500 mg PO BID Qty: 24 RF: 0 Continued simvastatin [Zocor] 40 MG tablet 40 mg PO BEDTIME Qty: 0 RF: 0 diltiazem HCl 90 MG capsule,extended release 12 hr 180 mg PO QDAY Qty: 0 RF: 0 lisinopril 2.5 MG tablet 2.5 mg PO BEDTIME Qty: 0 RF: 0 levothyroxine 100 mcg tablet 100 mcg PO DAILY RF: 0 warfarin 6 mg tablet See Rx Instructions .ROUTE .COMPLEX RF: 0 ascorbate calcium (vitamin C) 500 mg Tablet 500 mg PO DAILY RF: 0 aspirin 81 mg Tablet,Chewable 81 mg PO DAILY RF: 0 vitamin B complex [B Complex-Vitamin B12] Tablet 1 tab PO BEDTIME RF: 0 cholecalciferol (vitamin D3) [Vitamin D3] 25 mcg (1,000 unit) Tablet 25 mcg PO DAILY RF: 0 warfarin 1 mg tablet See Rx Instructions .ROUTE .COMPLEX RF: 0 Adults Multivitamin 18 mg iron-400 mcg-25 mcg Tablet 1 tab PO DAILY RF: 0 Follow up/Referrals: Elver Eubanks MD [Primary Care Provider] - Diet/Activity/Treatments Diet: Diet as Tolerated Skin/Wound/Dressing Care Report to your healthcare provider any signs of infection, such as:: chills, fever Visit Report/Discharge Packet Instructions: Recommendations to Help Prevent High Blood Pressure, High Blood Pressure (Hypertension) (Alternative Therapy), Urinary Tract Infection, DI for Urinary Tract Infection (UTI) Discharge Data Primary Care Provider: Elver Eubanks VTE Deep Vein Thrombosis/Pulmonary Embolism Present on Admission: No
== END 2020-07-12 14:57 | disposition home or self-care (01) | DRG 727 ==
LOC: ED 20:23 → AC 20:24
PROVIDERS: Emergency Medicine; Internal Medicine; Admitting Provider Nurse Practitioner Family; Emergency Provider Emergency Medicine; PCP Internal Medicine; Referring Provider Emergency Medicine; Visit Provider Nurse Practitioner Family
DX: N41.0 Acute prostatitis (principal); G93.41 Metabolic encephalopathy; I48.20 Chronic atrial fibrillation, unspecified; I10 Essential (primary) hypertension; E78.5 Hyperlipidemia, unspecified; E03.9 Hypothyroidism, unspecified; R97.20 Elevated prostate specific antigen [PSA]; W18.30XA Fall on same level, unspecified, initial encounter; Z87.820 Personal history of traumatic brain injury; Z20.822 Contact with and (suspected) exposure to COVID-19; Z79.01 Long term (current) use of anticoagulants
CPT/HCPCS: 36415; 70450; 71045; 76700; 80048; 80053; 80202; 81001; 83605; 83690; 83735; 83880; 84100; 84145; 84153; 84439; 84443; 84484; 85025; 85379; 85610; 85730; 87040; 87077; 87086; 87186; 87493; 87635; 93005; 96361; 96365; 97162; 97165; 97530; 99282; 99284; C9803; J2185; J2543; J3475

== ENCOUNTER → 2020-08-06 14:45 | Outpatient (ROUT) | payer MEDICARE, BC, SELFPAY ==
[2020-07-10 22:07] VITALS: BMI 24.7
[2020-08-06 15:02] LABS: BUN Creatinine Ratio 14.7 (6-22); Blood Urea Nitrogen 15 mg/dL (9-20); Calcium 9.5 mg/dL (8.4-10.2); Carbon Dioxide 20 mmol/L (22-32); Chloride 107 mmol/L (98-107); Estimated Glomerular Filt Rate > 60.0 mL/min (>60); Glucose 86 mg/dL (80-110); HEMOLYSIS 16 (0-50); Potassium 4.3 mmol/L (3.4-5.1); Sodium 137 mmol/L (137-145)
[2020-08-06 16:05] LABS: TSH w/ Reflex to FT4 2.79 uIU/mL (0.47-4.68)
[2020-08-07 10:36] LABS: PSA Free % 11.6 % (.)
== END ==
PROVIDERS: PCP Internal Medicine; Visit Provider Internal Medicine
DX: R53.1 Weakness (principal); E03.9 Hypothyroidism, unspecified; R97.20 Elevated prostate specific antigen [PSA]; N41.0 Acute prostatitis
CPT/HCPCS: 80048; 84153; 84154; 84443

== ENCOUNTER → 2020-10-18 10:06 | Outpatient (CLI) | payer MEDICARE, BC, SELFPAY ==
[2020-07-10 22:07] VITALS: BMI 24.7
[2020-10-18 11:01] LABS: Appearance Urine UA CLOUDY; Bilirubin Urine UA NEGATIVE (NEGATIVE); Color Urine UA YELLOW; Glucose Urine UA NEGATIVE (Negative); Ketones Urine UA NEGATIVE (NEGATIVE); Leukocyte Esterase Urine UA 1+ (NEGATIVE); Nitrite Urine UA NEGATIVE (Negative); Occult Blood Urine UA 3+ (Negative); Protein Urine UA 1+ (Negative); Urobilinogen Urine UA 0.2 E.U./dL (0.2); pH Urine UA 7.5 (4.5-8.0)
[2020-10-18 11:18] LABS: RBC Urine 10-30/HPF (0-5/HPF)
[2020-10-18 11:19] LABS: Bacteria Urine Few (2-10); Renal Epithelial Cells Urine 1-5/HPF (0-1/HPF); WBC Urine 30-100/HPF (0-5/HPF)
[2020-10-18 11:20] LABS: Red Blood Cell Casts Urine 0-1/LPF
== END ==
PROVIDERS: PCP Internal Medicine; Referring Provider Internal Medicine; Visit Provider Internal Medicine
DX: N39.0 Urinary tract infection, site not specified (principal); R30.0 Dysuria
CPT/HCPCS: 81001; 87086

== ENCOUNTER → 2020-11-12 08:08 | Outpatient (CLI) | payer MEDICARE, BC, SELFPAY ==
[2020-07-10 22:07] VITALS: BMI 24.7
[2020-11-12 09:09] LABS: BUN Creatinine Ratio 10.3 (6-22); Blood Urea Nitrogen 10 mg/dL (9-20); Calcium 9.7 mg/dL (8.4-10.2); Carbon Dioxide 21 mmol/L (22-32); Chloride 106 mmol/L (98-107); Estimated Glomerular Filt Rate > 60.0 mL/min (>60); Glucose 78 mg/dL (80-110); HEMOLYSIS < 15 (0-50); Potassium 4.2 mmol/L (3.4-5.1); Sodium 137 mmol/L (137-145)
[2020-11-12 10:00] LABS: Vitamin B12 > 1000 pg/mL (239-931)
== END ==
PROVIDERS: PCP Internal Medicine; Referring Provider Internal Medicine; Visit Provider Internal Medicine
DX: I50.22 Chronic systolic (congestive) heart failure (principal); E03.9 Hypothyroidism, unspecified; D51.9 Vitamin B12 deficiency anemia, unspecified
CPT/HCPCS: 36415; 80048; 82607; 84443

== ENCOUNTER 2020-11-28 08:08 | Emergency (ER) | payer MEDICARE, BC, SELFPAY ==
[2020-07-10 22:07] VITALS: BMI 24.7
[2020-11-28 08:22] VITALS: BP 127/65; PULSE 60; RESP 18; TEMP 36.4; O2SAT 93; BMI 25.4
[2020-11-28 09:07] LABS: Add Manual Diff / Slide Review NO; Basophils Absolute Auto 100 /uL (0-100); Basophils Percent Auto 0.8 % (0-2); Eosinophils Absolute Auto 200 /uL (0-450); Eosinophils Percent Auto 2.5 % (2-4); Hematocrit 36.8 % (41-53); Hemoglobin 12.6 g/dL (13.5-17.5); Lymphocytes Absolute Auto 1900 /uL (1100-4500); Lymphocytes Percent Auto 23.8 % (25-40); Mean Corpuscular HGB Conc 34.3 % (30-36); Mean Corpuscular Hemoglobin 30.8 PG (26-34); Mean Corpuscular Volume 89.8 fL (80-100); Monocytes Absolute Auto 600 /uL (0-900); Monocytes Percent Auto 7.7 % (3-14); Neutrophils Absolute Auto 5300 /uL (1500-7000); Neutrophils Percent Auto 65.2 % (50-75); Platelet Count 186 X10^3/uL (150-400); Red Cell Distribution Width 13.2 % (11.6-14.8); White Blood Cell Count 8.2 X10^3/uL (4.5-11.0)
[2020-11-28 09:20] LABS: Alanine Aminotransferase 19 IU/L (<50); Albumin Globulin Ratio 1.3 (1.0-2.8); Alkaline Phosphatase 58 U/L (38-126); Aspartate Aminotransferase 28 IU/L (17-59); BUN Creatinine Ratio 7.4 (6-22); Blood Urea Nitrogen 6 mg/dL (9-20); Calcium 8.6 mg/dL (8.4-10.2); Carbon Dioxide 21 mmol/L (22-32); Chloride 100 mmol/L (98-107); Estimated Glomerular Filt Rate > 60.0 mL/min (>60); Globulin 3.1 g/dL (1.7-4.1); Glucose 95 mg/dL (80-110); HEMOLYSIS < 15 (0-50); Potassium 3.8 mmol/L (3.4-5.1); Sodium 128 mmol/L (137-145); Total Protein 7.1 g/dL (6.3-8.2)
--- NOTE | 2020-11-28 09:25 | ED.WEAKNESS ---
HPI - Weakness General Chief complaint: Weakness Stated complaint: urinary infection, can't stand Time Seen by Provider: 11/28/20 09:24 Source: patient and family Mode of arrival: Wheelchair Limitations: other History of Present Illness HPI Narrative: This is a pleasant 80-year-old male comes emergency department with complaint of dysuria, urinary frequency. Patient has also been coming more mildly confused. He has had several episodes where he has almost fallen in the last day and has been weaker. Patient denies any pain. He has not hit his head. He has had not had a true fall overnight. According to patient and his . Patient denies any chest pain or shortness of breath. He denies any nausea or vomiting. He denies any diarrhea constipation. Patient was admitted in the past for UTI where he became quite confused and required several days of IV antibiotics. Patient's was concerned and brought him in preemptively today. He does take medications including aspirin, medication for chronic atrial fibrillation and simvastatin as well as warfarin. Related Data Home Medications Medication Instructions Recorded Confirmed simvastatin 40 mg tablet (Zocor) 40 mg PO BEDTIME #0 06/12/11 07/10/20 diltiazem HCl 90 mg 180 mg PO QDAY #0 07/14/16 07/10/20 capsule,extended release 12 hr lisinopril 2.5 mg tablet 2.5 mg PO BEDTIME #0 07/14/16 07/10/20 ascorbate calcium (vitamin C) 500 500 mg PO DAILY 07/10/20 07/10/20 mg tablet aspirin 81 mg chewable tablet 81 mg PO DAILY 07/10/20 07/10/20 cholecalciferol (vitamin D3) 25 25 mcg PO DAILY 07/10/20 07/10/20 mcg (1,000 unit) tablet (Vitamin D3) levothyroxine 100 mcg tablet 100 mcg PO DAILY 07/10/20 07/10/20 multivit with minerals-iron 18 1 tab PO DAILY 07/10/20 07/10/20 mg-folic ac 400 mcg-vit K 25 mcg tablet (Adults Multivitamin) vitamin B complex (B 1 tab PO BEDTIME 07/10/20 07/10/20 Complex-Vitamin B12) warfarin 1 mg tablet See Rx Instructions .ROUTE .COMPLEX 07/10/20 07/10/20 warfarin 6 mg tablet See Rx Instructions .ROUTE .COMPLEX 07/10/20 07/10/20 Previous Rx's Medication Instructions Recorded cephalexin 500 mg capsule 500 mg PO BID 7 Days #14 cap 11/28/20 ciprofloxacin HCl 500 mg tablet 500 mg PO Q12H #14 tab 11/28/20 Allergies Allergy/AdvReac Type Severity Reaction Status Date / Time No Known Drug Allergies Allergy Verified 07/10/20 15:03 Review of Systems Review of Systems ROS Unobtainable: All systems reviewed & are unremarkable except as noted in HPI and below Patient History Medical History (Updated 11/28/20 @ 09:37 by Ramila Hauser DO) 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 HEENT: Head normocephalic, atraumatic, EOMI, pupils reactive, face symmetric, moist mucous membranes NECK: Supple, full range of motion CARDIOVASCULAR: Regular rate and rhythm without murmurs, rubs or gallops. RESPIRATORY: Breath sounds equal bilaterally, no wheezes rales or rhonchi. ABDOMEN: Soft, nontender. Normoactive bowel sounds all 4 quadrants. No guarding or rebound, rigidity, no mass : No CVA tenderness EXTREMITIES: Normal range of motion, no clubbing or edema. Neurovascularly intact NEUROLOGICAL: Cranial nerves II through XII grossly intact. Moving all extremities. Full range of motion with no focal weakness. SKIN: Warm, dry, no petechiae, no rashes or lesions. Initial Vital Signs Initial Vital Signs: Vital Signs Temperature 97.5 F L 11/28/20 08:22 Pulse Rate 60 11/28/20 08:22 Respiratory Rate 18 11/28/20 08:22 Blood Pressure 127/65 11/28/20 08:22 Pulse Oximetry 93 11/28/20 08:22 Course Orders Ordered: Discontinued Medications Ceftriaxone Sodium 2,000 mg/ (Sodium Chloride) 100 mls @ 200 mls/hr IV NOW ONE Stop: 11/28/20 09:34 Last Infusion: 11/28/20 10:41 Dose: 0 mls/hr Documented by: Admin: 11/28/20 09:52 Dose: 200 mls/hr Documented by: PANDA Vital Signs Vital signs: Vital Signs - 8 hr 11/28/20 08:22 Temperature 97.5 F L Pulse Rate 60 Respiratory Rate 18 Blood Pressure 127/65 Pulse Oximetry 93 MDM - Weakness Lab Data Result diagrams: 11/28/20 09:00 11/28/20 09:00 Labs: Lab Results 11/28/20 11/28/20 11/28/20 Range/Units 09:00 09:00 09:00 WBC 8.2 (4.5-11.0) X10^3/uL RBC 4.10 L (4.5-5.9) X10^6/uL Hgb 12.6 L (13.5-17.5) g/dL Hct 36.8 L (41-53) % MCV 89.8 (80-100) fL MCH 30.8 (26-34) PG MCHC 34.3 (30-36) % RDW 13.2 (11.6-14.8) % Plt Count 186 (150-400) X10^3/uL Neut % (Auto) 65.2 (50-75) % Lymph % (Auto) 23.8 L (25-40) % [place] % (Auto) 7.7 (3-14) % Eos % (Auto) 2.5 (2-4) % Baso % (Auto) 0.8 (0-2) % Neut # (Auto) 5300 (2275-1839) /uL Lymph # (Auto) 1900 (9770-5399) /uL [place] # (Auto) 600 (0-900) /uL Eos # (Auto) 200 (0-450) /uL Baso # (Auto) 100 (0-100) /uL PT 30.2 H (10.1-12.7) SECONDS INR 2.6 H (0.9-1.3) Sodium 128 L (137-145) mmol/L Potassium 3.8 (3.4-5.1) mmol/L Chloride 100 (98-107) mmol/L Carbon Dioxide 21 L (22-32) mmol/L BUN 6 L (9-20) mg/dL Creatinine 0.81 (0.66-1.25) mg/dL Estimated GFR > 60.0 (>60) mL/min BUN/Creatinine Ratio 7.4 (6-22) Glucose 95 (80-110) mg/dL Calcium 8.6 (8.4-10.2) mg/dL Total Bilirubin 1.0 (0.2-1.3) mg/dL AST 28 (17-59) IU/L ALT 19 (<50) IU/L Alkaline Phosphatase 58 (38-126) U/L Total Protein 7.1 (6.3-8.2) g/dL Albumin 4.0 (3.5-5.0) g/dL Globulin 3.1 (1.7-4.1) g/dL Albumin/Globulin Ratio 1.3 (1.0-2.8) Urine Color Urine Appearance Urine pH (4.5-8.0) Ur Specific [place] (1.000-1.035) Urine Protein (Negative) Urine Glucose (UA) (Negative) g/dL Urine Ketones (NEGATIVE) Urine Occult Blood (Negative) Urine Nitrate (Negative) Urine Bilirubin (NEGATIVE) Ur Bilirubin Confirm (Negative) Urine Urobilinogen (0.2) E.U./dL Ur Leukocyte Esterase (NEGATIVE) Urine RBC (0-5/HPF) Urine WBC (0-5/HPF) Urine Bacteria (None) Ur Culture Indicated? 11/28/20 Range/Units 09:12 WBC (4.5-11.0) X10^3/uL RBC (4.5-5.9) X10^6/uL Hgb (13.5-17.5) g/dL Hct (41-53) % MCV (80-100) fL MCH (26-34) PG MCHC (30-36) % RDW (11.6-14.8) % Plt Count (150-400) X10^3/uL Neut % (Auto) (50-75) % Lymph % (Auto) (25-40) % [place] % (Auto) (3-14) % Eos % (Auto) (2-4) % Baso % (Auto) (0-2) % Neut # (Auto) (7744-5620) /uL Lymph # (Auto) (7569-1975) /uL [place] # (Auto) (0-900) /uL Eos # (Auto) (0-450) /uL Baso # (Auto) (0-100) /uL PT (10.1-12.7) SECONDS INR (0.9-1.3) Sodium (137-145) mmol/L Potassium (3.4-5.1) mmol/L Chloride (98-107) mmol/L Carbon Dioxide (22-32) mmol/L BUN (9-20) mg/dL Creatinine (0.66-1.25) mg/dL Estimated GFR (>60) mL/min BUN/Creatinine Ratio (6-22) Glucose (80-110) mg/dL Calcium (8.4-10.2) mg/dL Total Bilirubin (0.2-1.3) mg/dL AST (17-59) IU/L ALT (<50) IU/L Alkaline Phosphatase (38-126) U/L Total Protein (6.3-8.2) g/dL Albumin (3.5-5.0) g/dL Globulin (1.7-4.1) g/dL Albumin/Globulin Ratio (1.0-2.8) Urine Color Yellow Urine Appearance Cloudy Urine pH 5.5 (4.5-8.0) Ur Specific [place] 1.025 (1.000-1.035) Urine Protein 3+ H (Negative) Urine Glucose (UA) Negative (Negative) g/dL Urine Ketones Trace H (NEGATIVE) Urine Occult Blood 3+ H (Negative) Urine Nitrate Positive (Negative) Urine Bilirubin 1+ H (NEGATIVE) Ur Bilirubin Confirm Negative (Negative) Urine Urobilinogen 1.0 (0.2) E.U./dL Ur Leukocyte Esterase 1+ H (NEGATIVE) Urine RBC >100/hpf H (0-5/HPF) Urine WBC 10-30/hpf H (0-5/HPF) Urine Bacteria Many (>30) H (None) Ur Culture Indicated? Specimen cultured ECG Data Interpretation: AFib with slow response, rate of 57, QRS of 94 and QTC of 404. Patient appears to be AFib with slow response. No acute ST changes appreciated. [facility] Narrative Medical decision making narrative: This is 80-year-old male comes emergency department concern for urinary infection and increased weakness. Patient had severe UTI which patient has worsening mental status recurrent falls the past and patient's seems like he is having similar symptoms. UA is consistent with UTI, patient does not appear septic. Has fairly clear mentation here in the department and labs are reassuring. Patient was started dose of IV antibiotics and given prescription. Patient and family feel comfortable returning home at this time, return precautions and discussed. Discharge Plan Departure Patient Disposition: Home Clinical Impression: Acute UTI Instructions: DI for Urinary Tract Infection (UTI) Activity Restrictions/Additional Instructions: Follow-up with your physician in the next week for recheck. Take antibiotics until gone. This medication is less likely to elevate your INR in comparison to ciprofloxacin. INR today is 2.6 Prescription to [facility] in [place] Make sure you are drinking plenty of fluids your urine reflects some dehydration today. Your heart rate is slow today. I would hold your diltiazem dose for the next 24 hours and have your heart rate rechecked or monitor at home if you prefer. Please return for fevers, worsening confusion, recurrent falls, chest pain, shortness of breath, persistent vomiting, inability to urinate, new back or flank pain or other new or concerning symptoms. Prescriptions: New ciprofloxacin HCl 500 mg tablet 500 mg PO Q12H Qty: 14 RF: 0 cephalexin 500 mg capsule 500 mg PO BID 7 Days Qty: 14 RF: 0 Discontinued ciprofloxacin HCl 500 mg tablet 500 mg PO BID Qty: 24 RF: 0 No Action simvastatin [Zocor] 40 MG tablet 40 mg PO BEDTIME Qty: 0 RF: 0 diltiazem HCl 90 MG capsule,extended release 12 hr 180 mg PO QDAY Qty: 0 RF: 0 lisinopril 2.5 MG tablet 2.5 mg PO BEDTIME Qty: 0 RF: 0 levothyroxine 100 mcg tablet 100 mcg PO DAILY RF: 0 warfarin 6 mg tablet See Rx Instructions .ROUTE .COMPLEX RF: 0 ascorbate calcium (vitamin C) 500 mg Tablet 500 mg PO DAILY RF: 0 aspirin 81 mg Tablet,Chewable 81 mg PO DAILY RF: 0 vitamin B complex [B Complex-Vitamin B12] Tablet 1 tab PO BEDTIME RF: 0 cholecalciferol (vitamin D3) [Vitamin D3] 25 mcg (1,000 unit) Tablet 25 mcg PO DAILY RF: 0 warfarin 1 mg tablet See Rx Instructions .ROUTE .COMPLEX RF: 0 Adults Multivitamin 18 mg iron-400 mcg-25 mcg Tablet 1 tab PO DAILY RF: 0 Referrals: Elver Eubanks MD [Physician] - Stand Alone Forms: Referral for Shuttle Hand
[2020-11-28 09:30] VITALS: BP 120/60; PULSE 50; RESP 17; O2SAT 94
[2020-11-28 09:38] LABS: Appearance Urine UA CLOUDY; Bilirubin Urine UA 1+ (NEGATIVE); Color Urine UA YELLOW; Glucose Urine UA NEGATIVE (Negative); Ketones Urine UA TRACE (NEGATIVE); Leukocyte Esterase Urine UA 1+ (NEGATIVE); Nitrite Urine UA POSITIVE (Negative); Occult Blood Urine UA 3+ (Negative); Protein Urine UA 3+ (Negative); Specific Gravity Urine UA 1.025 (1.000-1.035); pH Urine UA 5.5 (4.5-8.0)
[2020-11-28] MEDS: cefTRIAXone 2,000 MG in SODIUM CHLORIDE 0.9% 100 ML 200 ML IV (09:52)
[2020-11-28 09:58] LABS: INR 2.6 (0.9-1.3); Prothrombin Time 30.2 SECONDS (10.1-12.7)
[2020-11-28 10:05] VITALS: BP 109/68; PULSE 56; RESP 12; O2SAT 100
[2020-11-28 10:16] LABS: Bacteria Urine Many (>30); Culture Indicated Urine Specimen Cultured; Ictotest Urine Negative (Negative); RBC Urine >100/HPF (0-5/HPF); WBC Urine 10-30/HPF (0-5/HPF)
[2020-11-28 10:46] VITALS: BP 113/57; PULSE 58; O2SAT 97
== END 2020-11-28 10:47 | disposition home or self-care (01) ==
PROVIDERS: Emergency Provider Emergency Medicine; PCP Internal Medicine
DX: N39.0 Urinary tract infection, site not specified (principal); I48.20 Chronic atrial fibrillation, unspecified
CPT/HCPCS: 36415; 51701; 80053; 81001; 85025; 85610; 87077; 87086; 93005; 96365; 99284; J0696

== ENCOUNTER → 2021-01-23 15:08 | Outpatient (CLI) | payer MEDICARE, BC, SELFPAY ==
[2021-01-17 08:21] VITALS: BMI 24.7
[2021-01-23 16:11] LABS: Blood Urea Nitrogen 7 mg/dL (9-20); Carbon Dioxide 20 mmol/L (22-32); Chloride 93 mmol/L (98-107); Estimated Glomerular Filt Rate > 60.0 mL/min (>60); Glucose 108 mg/dL (80-110); HEMOLYSIS 22 (0-50); Potassium 3.8 mmol/L (3.4-5.1); Sodium 124 mmol/L (137-145)
== END ==
PROVIDERS: PCP Internal Medicine; Referring Provider Urology; Visit Provider Urology
DX: N39.0 Urinary tract infection, site not specified (principal); R41.0 Disorientation, unspecified; R97.20 Elevated prostate specific antigen [PSA]; Z98.890 Other specified postprocedural states; Z79.01 Long term (current) use of anticoagulants
CPT/HCPCS: 36415; 51798; 80048; 81002; 99215

== ENCOUNTER → 2021-01-28 12:13 | Outpatient (CLI) | payer MEDICARE, BC, SELFPAY ==
[2021-01-17 08:21] VITALS: BMI 24.7
--- NOTE | 2021-01-28 12:14 | DI.CT.S_ITS ---
PROCEDURE: CT ABDOMEN PELVIS WO/W CON INDICATIONS: Recurring urinary tract infection TECHNIQUE: Optional 5 mm thick noncontrast images acquired from the diaphragm to the symphysis pubis. After the administration of intravenous contrast, 5 mm thick images acquired from the diaphragm to the symphysis pubis after a 10-minute delay. 2 mm thick coronal and sagittal reformats were then performed of the kidneys and ureters. For radiation dose reduction, the following was used: automated exposure control, adjustment of mA and/or kV according to patient size. COMPARISON: None. FINDINGS: Image quality: Excellent. Lung bases: Lung bases are clear. Heart size is normal. Small hiatal hernia. Urinary system: Kidneys uptake and excrete IV contrast symmetrically and uniformly. Precontrast, there are no stones in the collecting systems. Slight prominence of bilateral renal pelves but no hydronephrosis or hydroureter. Urinary bladder wall is slightly in a formally thickened. No discrete mass.. No stones. Mild prostatomegaly. Other solid organs: Liver is normal in size and enhancement. Gallbladder is distended. The wall is normal thickness. There are at least two calcified stones near the neck. . Biliary system is non dilated. Pancreas enhances normally. Spleen is normal in size and enhancement. No adrenal nodules. Peritoneum and bowel: Bowel loops demonstrate normal wall thickness and caliber. Diverticulosis throughout the colon. Normal appendix. No free fluid or air. Nodes and vessels: No retroperitoneal or mesenteric adenopathy by size criteria. Aorta and inferior vena cava are normal in size. Moderate abdominal aortic atherosclerotic calcification. Abdominal wall: No ventral hernias. Pelvis: No pathologic free pelvic fluid. No inguinal hernias or adenopathy. Bones: No suspicious bony lesions. Post left hip arthroplasty. Diffuse osteopenia. Ankylosis of the L four five vertebral level. Moderate degenerative change in the right hip. No vertebral body compression fractures. IMPRESSION: 1. Mild urinary bladder wall thickening may be secondary to chronic bladder outlet obstruction or cystitis. Correlate with UA. 2. No intrarenal calcifications. 3. Schroeder colonic diverticulosis. 4. Cholelithiasis. 5. Small hiatal hernia. Dictated by: Era Latham M.D. on 01/28/2021 at 16:30 Approved by: Era Latham M.D. on 01/28/2021 at 16:36
== END ==
PROVIDERS: PCP Internal Medicine; Referring Provider Urology; Visit Provider Urology
DX: N39.0 Urinary tract infection, site not specified (principal); K57.90 Diverticulosis of intestine, part unspecified, without perforation or abscess without bleeding; K80.20 Calculus of gallbladder without cholecystitis without obstruction; K44.9 Diaphragmatic hernia without obstruction or gangrene
CPT/HCPCS: 74178

== ENCOUNTER → 2021-02-11 09:01 | Outpatient (CLI) | payer MEDICARE, BC, SELFPAY ==
[2021-01-17 08:21] VITALS: BMI 24.7
[2021-02-11 10:45] LABS: Appearance Urine UA CLEAR; Bilirubin Urine UA NEGATIVE (NEGATIVE); Color Urine UA YELLOW; Glucose Urine UA NEGATIVE (Negative); Ketones Urine UA NEGATIVE (NEGATIVE); Leukocyte Esterase Urine UA NEGATIVE (NEGATIVE); Nitrite Urine UA NEGATIVE (Negative); Occult Blood Urine UA TRACE-LYSED (Negative); Protein Urine UA NEGATIVE (Negative); Specific Gravity Urine UA <=1.005 (1.000-1.035); Urobilinogen Urine UA 0.2 E.U./dL (0.2)
[2021-02-11 11:01] LABS: Amorphous Sediment Urine 1+
[2021-02-11 11:02] LABS: Culture Indicated Urine Cult Not Indicated
== END ==
PROVIDERS: PCP Internal Medicine; Referring Provider Urology; Visit Provider Urology
DX: N39.0 Urinary tract infection, site not specified (principal); R30.0 Dysuria
CPT/HCPCS: 81001

== ENCOUNTER → 2021-04-29 09:00 | Outpatient (CLI) | payer MEDICARE, BC, SELFPAY ==
[2021-04-11 10:38] VITALS: BMI 24.7
[2021-04-29 10:37] LABS: Hematocrit 36.9 % (41-53); Hemoglobin 12.6 g/dL (13.5-17.5); Mean Corpuscular HGB Conc 34.2 % (30-36); Mean Corpuscular Hemoglobin 30.4 PG (26-34); Mean Corpuscular Volume 88.9 fL (80-100); Platelet Count 243 X10^3/uL (150-400); Red Blood Cell Count 4.15 X10^6/uL (4.5-5.9); Red Cell Distribution Width 14.9 % (11.6-14.8); White Blood Cell Count 6.6 X10^3/uL (4.5-11.0)
== END ==
PROVIDERS: PCP Internal Medicine; Referring Provider Internal Medicine; Visit Provider Internal Medicine
DX: I48.91 Unspecified atrial fibrillation (principal)
CPT/HCPCS: 36415; 85027

== ENCOUNTER 2021-05-13 09:45 | Outpatient (RCR) | payer MEDICARE, BC, SELFPAY ==
--- NOTE | 2017-09-28 15:10 | PT.OTN ---
On September 28, 2017 our therapy services consisting of Speech, Occupational, and Physical therapy transitioned from [employer] electronic documentation system to a new [employer] electronic system. All documentation prior to September 28 can be found under [employer] saved data. From September 28 forward, all medical record documentation will be in [employer] 6.1.
--- NOTE | 2017-09-28 15:44 | PT.OTN ---
Physical Therapy Treatment Note PT-OP-A Visit Information Start: 09/28/17 15:21 Freq: Status: Active Protocol: Activity Type Activity Date Activity User E-Sign Co-Sign Detail Recorded Client Recorded Date Recorded By Document 09/28/17 14:00 [facility] [id number] 09/28/17 15:44 [facility] 09/28/17 14:00 Out-Patient Physical Therapy Visit Information [Visit Information] -Visit Type Treatment Note -Visit Start Time 13:45 -Visit Stop Time 14:30 -Total Visit Minutes 45 -Visit Number 17 -Number of TAX CONSULTANT Visits 0 [Evaluation Information] -Evaluation Date 07/27/17 PT-OP-C Subjective Start: 09/28/17 15:21 Freq: Status: Active Protocol: Activity Type Activity Date Activity User E-Sign Co-Sign Detail Recorded Client Recorded Date Recorded By Document 09/28/17 14:00 [facility] [id number] 09/28/17 15:44 [facility] 09/28/17 14:00 OP-PT Subjective [Patient Comments] -Patient Comments I'm doing pretty good. Pt also notes that he is happy he is more stable upon initial standing. -Patient Reported Progress Improving PT-OP-Q Treatments Start: 09/28/17 15:21 Freq: Status: Active Protocol: Activity Type Activity Date Activity User E-Sign Co-Sign Detail Recorded Client Recorded Date Recorded By Document 09/28/17 14:00 Aleth [id number] 09/28/17 15:44 [facility] 09/28/17 14:00 Cardio Equipment [Recumbent Elliptical (Biodex)] -Duration (Minutes) 6 -Resistance 6 -Seat Position 12 Gym Equipment [Shuttle Recovery] Unilateral Squats -Resistance 62# -Shuttle Recovery Platform Stable -Reps/Time 5 min Bilateral Squats -Resistance 112# -Shuttle Recovery Platform Stable -Reps/Time 5 min [Shuttle Balance] 1 -Details Yellow - Wide WILIAN -Reps/Duration 11 min Gait Training [Gait Activity] 1 -Device Used SPC -Level of Assistance Min Ax1 -Surface Level -Distance/Duration 200' x2 PT-OP-T Assessment and Plan Start: 09/28/17 15:21 Freq: Status: Active Protocol: Activity Type Activity Date Activity User E-Sign Co-Sign Detail Recorded Client Recorded Date Recorded By Document 09/28/17 14:00 [facility] [id number] 09/28/17 15:44 [facility] 09/28/17 14:00 Physical Therapy Assessment [Rehab Potential] -Rehabilitation Potential Good [Impairments] -Impairments Activity Tolerance Balance Functional Activities Functional Mobility Gait ROM Strength [Assessment Summary] -Assessment Pt showed improvement with tolerance to gait/ distance and increased Shuttle Recovery resistance. Struggled near end of treatment session due to fatigue, but overall improvement since initial evaluation continues. Physical Therapy Plan [Frequency and Duration] -Frequency of Treatment 2x/Week -Plan of Care Start Date 07/27/17 -Plan of Care End Date 10/18/17 [Therapeutic Interventions] -Therapeutic Interventions Aquatic Therapy Balance Training Gait Training Home Exercise Program Manual Therapy Neuromuscular Re-education Soft Tissue Mobilization Therapeutic Activities Therapeutic Exercises [Next Visit Focus/Plan] -Next Visit Plan Continued gait training with SPC, working to increase activity tolerance, balance training. 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
--- NOTE | 2017-10-05 12:58 | PT.OTN ---
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 with return to pre-existing conscious level, subsequent encounter (10/05/17) History of falling (10/05/17) Physical Therapy Treatment Note PT-OP-A Visit Information Start: 09/28/17 15:21 Freq: Status: Active Protocol: Activity Type Activity Date Activity User E-Sign Co-Sign Detail Recorded Client Recorded Date Recorded By Document 10/05/17 12:00 [facility] [id number] 10/05/17 12:56 [facility] 10/05/17 12:00 Out-Patient Physical Therapy Visit Information [Visit Information] -Visit Type Treatment Note -Visit Start Time 12:00 -Visit Stop Time 12:45 -Total Visit Minutes 45 -Visit Number 18 -Number of OVERHEAD DISTRIBUTION ENGINEER Visits 0 [Evaluation Information] -Evaluation Date 07/27/17 PT-OP-C Subjective Start: 09/28/17 15:21 Freq: Status: Active Protocol: Activity Type Activity Date Activity User E-Sign Co-Sign Detail Recorded Client Recorded Date Recorded By Document 10/05/17 12:00 [facility] [id number] 10/05/17 12:56 [facility] 10/05/17 12:00 OP-PT Subjective [Patient Comments] -Patient Comments Patient's today requested practicing on a ramp, because they have a decline from their house to the car port, and she has not yet felt comfortable letting him walk down it yet. -Patient Reported Progress Improving PT-OP-Q Treatments Start: 09/28/17 15:21 Freq: Status: Active Protocol: Activity Type Activity Date Activity User E-Sign Co-Sign Detail Recorded Client Recorded Date Recorded By Document 10/05/17 12:00 [facility] [id number] 10/05/17 12:56 [facility] 10/05/17 12:00 Cardio Equipment [Recumbent Elliptical (Biodex)] -Duration (Minutes) 6 -Resistance 6 -Seat Position 10 Gym Equipment [Shuttle Recovery] Unilateral Squats -Resistance 62# -Shuttle Recovery Platform Stable -Reps/Time 5 min Bilateral Squats -Resistance 112# -Shuttle Recovery Platform Stable -Reps/Time 5 min [Shuttle Balance] 1 -Details Yellow - Wide WILIAN -Reps/Duration 11 min Gait Training [Gait Activity] 2 -Description Incline/Decline in parking lot -Device Used 4WW -Level of Assistance Min Ax1 -Distance/Duration 15' x2 1 -Device Used SPC -Level of Assistance Min Ax1 -Surface Level -Distance/Duration 90' x2 PT-OP-T Assessment and Plan Start: 09/28/17 15:21 Freq: Status: Active Protocol: Activity Type Activity Date Activity User E-Sign Co-Sign Detail Recorded Client Recorded Date Recorded By Document 10/05/17 12:00 [facility] [id number] 10/05/17 12:56 DCW 10/05/17 12:00 Physical Therapy Assessment [Rehab Potential] -Rehabilitation Potential Good [Impairments] -Impairments Activity Tolerance Balance Functional Activities Functional Mobility Gait ROM Strength [Assessment Summary] -Assessment Pt struggled more today with his SPC ambulation, however this was done at the end of today's visit, and normally he walks at the start of his session, and was likely just tired by the time he got to it. Pt did well on the incline , however recommended to his a little more practice here before he does it at home. Physical Therapy Plan [Frequency and Duration] -Frequency of Treatment 2x/Week -Plan of Care Start Date 07/27/17 -Plan of Care End Date 10/18/17 [Therapeutic Interventions] -Therapeutic Interventions Aquatic Therapy Balance Training Gait Training Home Exercise Program Manual Therapy Neuromuscular Re-education Soft Tissue Mobilization Therapeutic Activities Therapeutic Exercises [Next Visit Focus/Plan] -Next Visit Plan Practice SPC gait and ambulation on inclines/ declines, balance training, increased activity tolerance.
--- NOTE | 2017-10-08 12:31 | PT.OTN ---
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 with return to pre-existing conscious level, subsequent encounter (10/08/17) History of falling (10/08/17) Physical Therapy Treatment Note PT-OP-A Visit Information Start: 09/28/17 15:21 Freq: Status: Active Protocol: Document 10/08/17 10:20 DCW (Rec: 10/08/17 12:31 DCW [id number]) Out-Patient Physical Therapy Visit Information Visit Information Visit Type Treatment Note Visit Start Time 10:20 Visit Stop Time 11:05 Total Visit Minutes 45 Visit Number 19 Number of BEHAVIOUR SUPPORT TEACHER Visits 0 Evaluation Information Evaluation Date 07/27/17 PT-OP-C Subjective Start: 09/28/17 15:21 Freq: Status: Active Protocol: Document 10/08/17 10:20 DCW (Rec: 10/08/17 12:31 DCW [id number]) OP-PT Subjective Patient Comments Patient Comments Pt reports he is a little tired today, but ready to get to work. PT-OP-Q Treatments Start: 09/28/17 15:21 Freq: Status: Active Protocol: Document 10/08/17 10:20 DCW (Rec: 10/08/17 12:31 DCW [id number]) Cardio Equipment Recumbent Elliptical (Biodex) Duration (Minutes) 6 Resistance 6 Seat Position 10 Gym Equipment Shuttle Recovery Bilateral Heel Raises Resistance 87# Shuttle Recovery Platform Stable Reps/Time x60 Unilateral Squats Resistance 62# Shuttle Recovery Platform Stable Reps/Time x20 Bilateral Squats Resistance 112# Shuttle Recovery Platform Stable Reps/Time x30 Therapeutic Exercises Standing Exercises 1 Standing Exercise Name Hurdles in // bars Resistance 5# Equipment Used Ankle weights Reps/Minutes x4 Gait Training Gait Activity 2 Description Incline/Decline in parking lot Device Used 4WW Level of Assistance CGA Distance/Duration 323' Comments [facility] Neuro Re-Education Treatment Balance Activities 1 Details Controlled retro fall into wall Reps/Duration 5' Comments From 4 distance PT-OP-T Assessment and Plan Start: 09/28/17 15:21 Freq: Status: Active Protocol: Document 10/08/17 10:20 DCW (Rec: 10/08/17 12:31 DCW [id number]) Physical Therapy Assessment Rehab Potential Rehabilitation Potential Good Impairments Impairments Activity Tolerance Balance Functional Activities Functional Mobility Gait ROM Strength Goals Six Impairment Static Standing Balance Short Term Goal (STG) Pt to hold double leg balance with eyes open on a firm surface for 60 seconds STG Duration 4 days Five Impairment Gait tolerance Short Term Goal (STG) Pt to tolerate 600' ambulation without rest using 4WW STG Duration 4 days Four Impairment Foot slap Short Term Goal (STG) Pt to regularly wear R AFO to limit foot drop and help normalize gait pattern STG Duration Goal Met Three Impairment Transfers Short Term Goal (STG) Pt to transfer independently from mat<->w/c with no assistive devices STG Duration 4 days Two Impairment Ankle weakness Short Term Goal (STG) Pt to display 2/5 MMT in R DF, 4/5 MMT in R PF, and 4+/5 MMT in all other bilateral ankle movements STG Duration 4 days One Impairment Activity tolerance Short Term Goal (STG) Pt to tolerate activity up to 15 minutes without a break STG Duration 4 days Assessment Summary Assessment Pt very fatigued by end of treatment, however did very well outside on the [facility]. Pt displayed no deficits in his gait, and was safe and able to correctly control his speed. Physical Therapy Plan Frequency and Duration Frequency of Treatment 2x/Week Plan of Care Start Date 07/27/17 Plan of Care End Date 10/18/17 Therapeutic Interventions Therapeutic Interventions Aquatic Therapy Balance Training Gait Training Home Exercise Program Manual Therapy Neuromuscular Re-education Soft Tissue Mobilization Therapeutic Activities Therapeutic Exercises Next Visit Focus/Plan Next Visit Plan Reassess objective measures and progress toward goals.
--- NOTE | 2017-10-12 18:34 | PT.OTN ---
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 with return to pre-existing conscious level, subsequent encounter (10/12/17) History of falling (10/12/17) Physical Therapy Treatment Note PT-OP-A Visit Information Start: 09/28/17 15:21 Freq: Status: Active Protocol: Document 10/12/17 13:45 DCW (Rec: 10/12/17 18:33 DCW [id number]) Out-Patient Physical Therapy Visit Information Visit Information Visit Type Progress Note Visit Start Time 13:45 Visit Stop Time 14:30 Total Visit Minutes 45 Visit Number 20 Number of GAME FARM HELPER Visits 0 Evaluation Information Evaluation Date 07/27/17 PT-OP-B Current Condition Start: 09/28/17 15:21 Freq: Status: Active Protocol: Document 10/12/17 13:45 DCW (Rec: 10/12/17 18:33 DCW [id number]) Current Condition History of Current Condition Onset Date 02/05/17 History of Current Condition See Pt's initial evaluation in Therapy Source Current Functional Impairments (Reported) Functional Limitations- Mobility/Gait Transfers:W/C<->Mat Stand- pivot: Independent PT-OP-C Subjective Start: 09/28/17 15:21 Freq: Status: Active Protocol: Document 10/12/17 13:45 DCW (Rec: 10/12/17 18:33 DCW [id number]) OP-PT Subjective Patient Comments Patient Comments Pt is worried today because he only has one more scheduled appointment, and he doesn't know if he is allowed more. Pt was very relieved to hear he simply needed to schedule more appointments. Patient Reported Progress Improving PT-OP-D Balance Start: 10/12/17 18:11 Freq: Status: Active Protocol: Document 10/12/17 13:45 DCW (Rec: 10/12/17 18:33 DCW [id number]) OP-PT Balance Assessment Standing Balance Standing Balance Comments Double leg, Eyes open: 1'30.53 Mejia Fall Scale Copyright Permission Roberto KELLY, Roberto RM, [place]. Development of a scale to identify the fall- prone patient. Can J Aging 1989;8;366-7. Catrachita Mejia (2009). Preventing patient falls. (2nd ed). [place]: [place]. PT-OP-E Functional Tests Start: 10/12/17 18:11 Freq: Status: Active Protocol: Document 10/12/17 13:45 DCW (Rec: 10/12/17 18:33 DCW [id number]) Functional Tests 6 Minute Walk Test Distance 365' Device Used 4WW Comments Stopped test at 3 min PT-OP-M Strength Start: 10/12/17 18:11 Freq: Status: Active Protocol: Document 10/12/17 13:45 DCW (Rec: 10/12/17 18:33 DCW [id number]) Hip Strength Hip Manual Muscle Testing Right Flexion (L2) 4+ Good+ Abduction 5 Normal Adduction 5 Normal Left Flexion (L2) 4+ Good+ Abduction 5 Normal Adduction 5 Normal Knee Strength Knee Manual Muscle Testing Right Flexion (S2) 4+ Good+ Extension (L3) 5 Normal Left Flexion (S2) 4+ Good+ Extension (L3) 5 Normal Ankle/Foot Strength Ankle and Foot Manual Muscle Testing Right Dorsiflexion (L4) 2- Poor- Plantarflexion (S1) 3 Fair Left Dorsiflexion (L4) 4+ Good+ Plantarflexion (S1) 5 Normal PT-OP-Q Treatments Start: 09/28/17 15:21 Freq: Status: Active Protocol: Document 10/12/17 13:45 DCW (Rec: 10/12/17 18:33 DCW [id number]) Cardio Equipment Recumbent Elliptical (Biodex) Duration (Minutes) 6 Resistance 6 Seat Position 10 Therapeutic Activity Therapeutic Activity 1 Name Transfer testing, MMT, Objective measures Neuro Re-Education Treatment Balance Activities 2 Details Balance testing, 6 MWT x2 PT-OP-T Assessment and Plan Start: 09/28/17 15:21 Freq: Status: Active Protocol: Document 10/12/17 13:45 DCW (Rec: 10/12/17 18:33 DCW [id number]) Physical Therapy Assessment Rehab Potential Rehabilitation Potential Good Impairments Impairments Activity Tolerance Balance Functional Activities Functional Mobility Gait ROM Strength Goals Six Impairment Static Standing Balance Short Term Goal (STG) Pt to hold double leg balance with eyes open on a firm surface for 60 seconds STG Duration Met Mechanical Sound Technician Goal (LTG) Pt to stand independently for 2 minutes LTG Duration 5 weeks Five Impairment Gait tolerance Mechanical Sound Technician Goal (LTG) Pt to tolerate 600' ambulation without rest using 4WW LTG Duration 5 weeks Four Impairment Foot slap Short Term Goal (STG) Pt to regularly wear R AFO to limit foot drop and help normalize gait pattern STG Duration Goal Met Three Impairment Transfers Short Term Goal (STG) Pt to transfer independently from mat<->w/c with no assistive devices STG Duration 4 days Two Impairment Ankle weakness Mechanical Sound Technician Goal (LTG) Pt to display 2/5 MMT in R DF, 4/5 MMT in R PF, and 4+/5 MMT in all other bilateral ankle movements LTG Duration 5 weeks One Impairment Activity tolerance Mechanical Sound Technician Goal (LTG) Pt to tolerate activity up to 15 minutes without a break LTG Duration 5 weeks Progress Towards Goals Progress Towards Goals Progressing Toward Goals Slow Progress due to Activity Tolerance Slow Progress due to Medical Issues Progress Comments Met static standing balance, independent transfer, and AFO goals. Excellent progress on LE MMT goals. Some progress on 6 MWT goal Assessment Summary Assessment Pt happy with his current progress levels, hopeful that it continues. Physical Therapy Plan Frequency and Duration Frequency of Treatment 2x/Week Duration of Treatment 12 weeks Plan of Care Start Date 10/12/17 Plan of Care End Date 01/03/18 Therapeutic Interventions Therapeutic Interventions Aquatic Therapy Balance Training Gait Training Home Exercise Program Manual Therapy Neuromuscular Re-education Soft Tissue Mobilization Therapeutic Activities Therapeutic Exercises Next Visit Focus/Plan Next Visit Plan Focus on improving 6 MWT score by improving gait ability and activity tolerance. Continue SPC training.
--- NOTE | 2017-10-12 18:36 | PT.OPPOC ---
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 with return to pre-existing conscious level, subsequent encounter (10/12/17) History of falling (10/12/17) Provider Visit Care Team Role Provider Type Elver Eubanks MD Attending Provider Physician Family Provider Primary Care Provider Specialty: Internal Medicine Address: [address] [place] [address], [facility] Email: Plan Of Care PT-OP-T Assessment and Plan Start: 09/28/17 15:21 Freq: Status: Active Protocol: Document 10/12/17 13:45 DCW (Rec: 10/12/17 18:33 DCW [id number]) Physical Therapy Assessment Rehab Potential Rehabilitation Potential Good Impairments Impairments Activity Tolerance Balance Functional Activities Functional Mobility Gait ROM Strength Goals Six Impairment Static Standing Balance Short Term Goal (STG) Pt to hold double leg balance with eyes open on a firm surface for 60 seconds STG Duration Met Ekg/Ecg Technician Goal (LTG) Pt to stand independently for 2 minutes LTG Duration 5 weeks Five Impairment Gait tolerance Ekg/Ecg Technician Goal (LTG) Pt to tolerate 600' ambulation without rest using 4WW LTG Duration 5 weeks Four Impairment Foot slap Short Term Goal (STG) Pt to regularly wear R AFO to limit foot drop and help normalize gait pattern STG Duration Goal Met Three Impairment Transfers Short Term Goal (STG) Pt to transfer independently from mat<->w/c with no assistive devices STG Duration 4 days Two Impairment Ankle weakness Longterm Goal (LTG) Pt to display 2/5 MMT in R DF, 4/5 MMT in R PF, and 4+/5 MMT in all other bilateral ankle movements LTG Duration 5 weeks One Impairment Activity tolerance Ekg/Ecg Technician Goal (LTG) Pt to tolerate activity up to 15 minutes without a break LTG Duration 5 weeks Progress Towards Goals Progress Towards Goals Progressing Toward Goals Slow Progress due to Activity Tolerance Slow Progress due to Medical Issues Progress Comments Met static standing balance, independent transfer, and AFO goals. Excellent progress on LE MMT goals. Some progress on 6 MWT goal Assessment Summary Assessment Pt happy with his current progress levels, hopeful that it continues. Physical Therapy Plan Frequency and Duration Frequency of Treatment 2x/Week Duration of Treatment 12 weeks Plan of Care Start Date 10/12/17 Plan of Care End Date 01/03/18 Therapeutic Interventions Therapeutic Interventions Aquatic Therapy Balance Training Gait Training Home Exercise Program Manual Therapy Neuromuscular Re-education Soft Tissue Mobilization Therapeutic Activities Therapeutic Exercises Next Visit Focus/Plan Next Visit Plan Focus on improving 6 MWT score by improving gait ability and activity tolerance. Continue SPC training. Plan of Care Dates Plan of Care Start Date 10/12/17 Plan of Care End Date 01/03/18 Please Sign and Return: I have reviewed this Plan of Care and certify that the skilled therapy services above are required to meet the patient???s needs. Physician Signature Date Printed Name and Credentials
--- NOTE | 2017-10-15 11:18 | PT.OTN ---
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 with return to pre-existing conscious level, subsequent encounter (10/15/17) History of falling (10/15/17) Physical Therapy Treatment Note PT-OP-A Visit Information Start: 09/28/17 15:21 Freq: Status: Active Protocol: Document 10/15/17 10:30 DCW (Rec: 10/15/17 11:17 DCW [id number]) Out-Patient Physical Therapy Visit Information Visit Information Visit Type Treatment Note Visit Start Time 10:30 Visit Stop Time 11:15 Total Visit Minutes 45 Visit Number 21 Number of PRODUCTION POTTER Visits 0 Evaluation Information Evaluation Date 07/27/17 PT-OP-B Current Condition Start: 09/28/17 15:21 Freq: Status: Active Protocol: Document 10/12/17 13:45 DCW (Rec: 10/12/17 18:33 DCW [id number]) Current Condition History of Current Condition Onset Date 02/05/17 History of Current Condition See Pt's initial evaluation in Therapy Source Current Functional Impairments (Reported) Functional Limitations- Mobility/Gait Transfers:W/C<->Mat Stand- pivot: Independent PT-OP-C Subjective Start: 09/28/17 15:21 Freq: Status: Active Protocol: Document 10/15/17 10:30 DCW (Rec: 10/15/17 11:17 DCW [id number]) OP-PT Subjective Patient Comments Patient Comments Pt is doing well today, his reports that they have been trying to walk 300', 3x/ day. PT-OP-D Balance Start: 10/12/17 18:11 Freq: Status: Active Protocol: Document 10/12/17 13:45 DCW (Rec: 10/12/17 18:33 DCW [id number]) OP-PT Balance Assessment Standing Balance Standing Balance Comments Double leg, Eyes open: 1'30.53 Mejia Fall Scale Copyright Permission Roberto KELLY, Roberto RM, Mark SJ. Development of a scale to identify the fall- prone patient. Can J Aging 1989;8;366-7. Catrachita Mejia (2009). Preventing patient falls. (2nd ed). Garvin: Marquis. PT-OP-E Functional Tests Start: 10/12/17 18:11 Freq: Status: Active Protocol: Document 10/12/17 13:45 DCW (Rec: 10/12/17 18:33 DCW [id number]) Functional Tests 6 Minute Walk Test Distance 365' Device Used 4WW Comments Stopped test at 3 min PT-OP-M Strength Start: 10/12/17 18:11 Freq: Status: Active Protocol: Document 10/12/17 13:45 DCW (Rec: 10/12/17 18:33 DCW [id number]) Hip Strength Hip Manual Muscle Testing Right Flexion (L2) 4+ Good+ Abduction 5 Normal Adduction 5 Normal Left Flexion (L2) 4+ Good+ Abduction 5 Normal Adduction 5 Normal Knee Strength Knee Manual Muscle Testing Right Flexion (S2) 4+ Good+ Extension (L3) 5 Normal Left Flexion (S2) 4+ Good+ Extension (L3) 5 Normal Ankle/Foot Strength Ankle and Foot Manual Muscle Testing Right Dorsiflexion (L4) 2- Poor- Plantarflexion (S1) 3 Fair Left Dorsiflexion (L4) 4+ Good+ Plantarflexion (S1) 5 Normal PT-OP-Q Treatments Start: 09/28/17 15:21 Freq: Status: Active Protocol: Document 10/15/17 10:30 DCW (Rec: 10/15/17 11:17 DCW [id number]) Cardio Equipment Recumbent Elliptical (Biodex) Duration (Minutes) 8 Resistance 6 Seat Position 10 Gym Equipment Shuttle Recovery Bilateral Heel Raises Resistance 87# Shuttle Recovery Platform Stable Reps/Time x60 Unilateral Squats Resistance 62# Shuttle Recovery Platform Stable Reps/Time x20 Bilateral Squats Resistance 112# Shuttle Recovery Platform Stable Reps/Time x30 Shuttle Balance 1 Details Yellow - Wide WILIAN Reps/Duration 11 min Gait Training Gait Activity 3 Device Used 4WW Level of Assistance SBA Distance/Duration 350 Treatment Focus Increased gait distance/ tolerance Comments v/c for proper breathing, joan PT-OP-T Assessment and Plan Start: 09/28/17 15:21 Freq: Status: Active Protocol: Document 10/15/17 10:30 DCW (Rec: 10/15/17 11:17 DCW [id number]) Physical Therapy Assessment Rehab Potential Rehabilitation Potential Good Impairments Impairments Activity Tolerance Balance Functional Activities Functional Mobility Gait ROM Strength Goals Six Impairment Static Standing Balance Short Term Goal (STG) Pt to hold double leg balance with eyes open on a firm surface for 60 seconds STG Duration Met Custodial Goal (LTG) Pt to stand independently for 2 minutes LTG Duration 5 weeks Five Impairment Gait tolerance Beauty Operator Apprentice Goal (LTG) Pt to tolerate 600' ambulation without rest using 4WW LTG Duration 5 weeks Four Impairment Foot slap Short Term Goal (STG) Pt to regularly wear R AFO to limit foot drop and help normalize gait pattern STG Duration Goal Met Three Impairment Transfers Short Term Goal (STG) Pt to transfer independently from mat<->w/c with no assistive devices STG Duration 4 days Two Impairment Ankle weakness Beauty Operator Apprentice Goal (LTG) Pt to display 2/5 MMT in R DF, 4/5 MMT in R PF, and 4+/5 MMT in all other bilateral ankle movements LTG Duration 5 weeks One Impairment Activity tolerance Beauty Operator Apprentice Goal (LTG) Pt to tolerate activity up to 15 minutes without a break LTG Duration 5 weeks Progress Towards Goals Progress Towards Goals Progressing Toward Goals Slow Progress due to Activity Tolerance Slow Progress due to Medical Issues Progress Comments Met static standing balance, independent transfer, and AFO goals. Excellent progress on LE MMT goals. Some progress on 6 MWT goal Assessment Summary Assessment Pt happy with his current progress levels, hopeful that it continues. Physical Therapy Plan Frequency and Duration Frequency of Treatment 2x/Week Duration of Treatment 12 weeks Plan of Care Start Date 10/12/17 Plan of Care End Date 01/03/18 Therapeutic Interventions Therapeutic Interventions Aquatic Therapy Balance Training Gait Training Home Exercise Program Manual Therapy Neuromuscular Re-education Soft Tissue Mobilization Therapeutic Activities Therapeutic Exercises Next Visit Focus/Plan Next Visit Plan Work on increasing gait tolerance, balance, LE strengthening.
--- NOTE | 2017-10-22 09:50 | PT.OTN ---
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 with return to pre-existing conscious level, subsequent encounter (10/22/17) History of falling (10/22/17) Physical Therapy Treatment Note PT-OP-A Visit Information Start: 09/28/17 15:21 Freq: Status: Active Protocol: Document 10/22/17 09:00 DCW (Rec: 10/22/17 09:49 DCW [id number]) Out-Patient Physical Therapy Visit Information Visit Information Visit Type Treatment Note Visit Start Time 09:00 Visit Stop Time 09:45 Total Visit Minutes 45 Visit Number 22 Number of SUPPORT TEACHER Visits 0 Evaluation Information Evaluation Date 07/27/17 PT-OP-B Current Condition Start: 09/28/17 15:21 Freq: Status: Active Protocol: Document 10/12/17 13:45 DCW (Rec: 10/12/17 18:33 DCW [id number]) Current Condition History of Current Condition Onset Date 02/05/17 History of Current Condition See Pt's initial evaluation in Therapy Source Current Functional Impairments (Reported) Functional Limitations- Mobility/Gait Transfers:W/C<->Mat Stand- pivot: Independent PT-OP-C Subjective Start: 09/28/17 15:21 Freq: Status: Active Protocol: Document 10/22/17 09:00 DCW (Rec: 10/22/17 09:49 DCW [id number]) OP-PT Subjective Patient Comments Patient Comments Pt reports that he is pretty good today, and his reports that he has been doing better when walking at home. PT-OP-Q Treatments Start: 09/28/17 15:21 Freq: Status: Active Protocol: Document 10/22/17 09:00 DCW (Rec: 10/22/17 09:49 DCW [id number]) Cardio Equipment Recumbent Elliptical (Biodex) Duration (Minutes) 6 Resistance 6 Seat Position 10 Gym Equipment Shuttle Recovery Bilateral Heel Raises Resistance 87# Shuttle Recovery Platform Stable Reps/Time x60 Unilateral Squats Resistance 62# Shuttle Recovery Platform Stable Reps/Time x20 Bilateral Squats Resistance 112# Shuttle Recovery Platform Stable Reps/Time x30 Shuttle Balance 1 Details Yellow - Wide WILIAN Reps/Duration 11 min Gait Training Gait Activity 3 Device Used 4WW Level of Assistance SBA Distance/Duration 514 Treatment Focus Increased gait distance/ tolerance Comments v/c for proper breathing, joan PT-OP-T Assessment and Plan Start: 09/28/17 15:21 Freq: Status: Active Protocol: Document 10/22/17 09:00 DCW (Rec: 10/22/17 09:49 DCW [id number]) Physical Therapy Assessment Rehab Potential Rehabilitation Potential Good Impairments Impairments Activity Tolerance Balance Functional Activities Functional Mobility Gait ROM Strength Goals Six Impairment Static Standing Balance Short Term Goal (STG) Pt to hold double leg balance with eyes open on a firm surface for 60 seconds STG Duration Met Sales Operations Analyst Goal (LTG) Pt to stand independently for 2 minutes LTG Duration 11/15/17 Five Impairment Gait tolerance Longterm Goal (LTG) Pt to tolerate 600' ambulation without rest using 4WW LTG Duration 11/15/17 Four Impairment Foot slap Short Term Goal (STG) Pt to regularly wear R AFO to limit foot drop and help normalize gait pattern STG Duration Goal Met Three Impairment Transfers Short Term Goal (STG) Pt to transfer independently from mat<->w/c with no assistive devices STG Duration Met Two Impairment Ankle weakness Sales Operations Analyst Goal (LTG) Pt to display 2/5 MMT in R DF, 4/5 MMT in R PF, and 4+/5 MMT in all other bilateral ankle movements LTG Duration 11/15/17 One Impairment Activity tolerance Sales Operations Analyst Goal (LTG) Pt to tolerate activity up to 15 minutes without a break LTG Duration 11/15/17 Progress Towards Goals Progress Towards Goals Progressing Toward Goals Slow Progress due to Activity Tolerance Slow Progress due to Medical Issues Progress Comments Met static standing balance, independent transfer, and AFO goals. Excellent progress on LE MMT goals. Some progress on 6 MWT goal Assessment Summary Assessment Pt continues to make fairly consistent, yet slow, progress with most of his activities. Pt was able to increase his ambulation distance today to 514' over 5 minutes. Physical Therapy Plan Frequency and Duration Frequency of Treatment 2x/Week Duration of Treatment 12 weeks Plan of Care Start Date 10/12/17 Plan of Care End Date 01/03/18 Therapeutic Interventions Therapeutic Interventions Aquatic Therapy Balance Training Gait Training Home Exercise Program Manual Therapy Neuromuscular Re-education Soft Tissue Mobilization Therapeutic Activities Therapeutic Exercises Next Visit Focus/Plan Next Visit Plan Increased activity tolerance and balance training.
--- NOTE | 2017-10-28 10:28 | PT.OTN ---
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 with return to pre-existing conscious level, subsequent encounter (10/28/17) History of falling (10/28/17) Physical Therapy Treatment Note PT-OP-A Visit Information Start: 09/28/17 15:21 Freq: Status: Active Protocol: Document 10/28/17 09:45 DCW (Rec: 10/28/17 10:28 DCW [id number]) Out-Patient Physical Therapy Visit Information Visit Information Visit Type Treatment Note Visit Start Time 09:45 Visit Stop Time 10:30 Total Visit Minutes 45 Visit Number 23 Number of GAS ROLLER OPERATOR Visits 0 Evaluation Information Evaluation Date 07/27/17 PT-OP-B Current Condition Start: 09/28/17 15:21 Freq: Status: Active Protocol: Document 10/12/17 13:45 DCW (Rec: 10/12/17 18:33 DCW [id number]) Current Condition History of Current Condition Onset Date 02/05/17 History of Current Condition See Pt's initial evaluation in Therapy Source Current Functional Impairments (Reported) Functional Limitations- Mobility/Gait Transfers:W/C<->Mat Stand- pivot: Independent PT-OP-C Subjective Start: 09/28/17 15:21 Freq: Status: Active Protocol: Document 10/28/17 09:45 DCW (Rec: 10/28/17 10:28 DCW [id number]) OP-PT Subjective Patient Comments Patient Comments Pt reports that everything is going well. PT-OP-Q Treatments Start: 09/28/17 15:21 Freq: Status: Active Protocol: Document 10/28/17 09:45 DCW (Rec: 10/28/17 10:28 DCW [id number]) Cardio Equipment Recumbent Elliptical (Biodex) Duration (Minutes) 6 Resistance 6 Seat Position 10 Gym Equipment Shuttle Recovery Bilateral Heel Raises Resistance 87# Shuttle Recovery Platform Stable Reps/Time x60 Unilateral Squats Resistance 62# Shuttle Recovery Platform Stable Reps/Time x20 Bilateral Squats Resistance 112# Shuttle Recovery Platform Stable Reps/Time x30 Shuttle Balance 1 Details Yellow - Wide WILIAN Reps/Duration 11 min Gait Training Gait Activity 3 Device Used 4WW Level of Assistance SBA Distance/Duration 520 Treatment Focus Increased gait distance/ tolerance Comments v/c for proper breathing, joan PT-OP-T Assessment and Plan Start: 09/28/17 15:21 Freq: Status: Active Protocol: Document 10/28/17 09:45 DCW (Rec: 10/28/17 10:28 DCW [id number]) Physical Therapy Assessment Rehab Potential Rehabilitation Potential Good Impairments Impairments Activity Tolerance Balance Functional Activities Functional Mobility Gait ROM Strength Goals Six Impairment Static Standing Balance Short Term Goal (STG) Pt to hold double leg balance with eyes open on a firm surface for 60 seconds STG Duration Met Heat Treatment Technician Goal (LTG) Pt to stand independently for 2 minutes LTG Duration 11/15/17 Five Impairment Gait tolerance Heat Treatment Technician Goal (LTG) Pt to tolerate 600' ambulation without rest using 4WW LTG Duration 11/15/17 Four Impairment Foot slap Short Term Goal (STG) Pt to regularly wear R AFO to limit foot drop and help normalize gait pattern STG Duration Goal Met Three Impairment Transfers Short Term Goal (STG) Pt to transfer independently from mat<->w/c with no assistive devices STG Duration Met Two Impairment Ankle weakness Heat Treatment Technician Goal (LTG) Pt to display 2/5 MMT in R DF, 4/5 MMT in R PF, and 4+/5 MMT in all other bilateral ankle movements LTG Duration 11/15/17 One Impairment Activity tolerance Senior Care Goal (LTG) Pt to tolerate activity up to 15 minutes without a break LTG Duration 11/15/17 Progress Towards Goals Progress Towards Goals Progressing Toward Goals Slow Progress due to Activity Tolerance Slow Progress due to Medical Issues Progress Comments Met static standing balance, independent transfer, and AFO goals. Excellent progress on LE MMT goals. Some progress on 6 MWT goal Assessment Summary Assessment Pt displayed improvement on the [place] Balance today, increased ability to maintain balance. Physical Therapy Plan Frequency and Duration Frequency of Treatment 2x/Week Duration of Treatment 12 weeks Plan of Care Start Date 10/12/17 Plan of Care End Date 01/03/18 Therapeutic Interventions Therapeutic Interventions Aquatic Therapy Balance Training Gait Training Home Exercise Program Manual Therapy Neuromuscular Re-education Soft Tissue Mobilization Therapeutic Activities Therapeutic Exercises Next Visit Focus/Plan Next Visit Plan Increased activity tolerance and balance training.
--- NOTE | 2017-11-02 12:43 | PT.OTN ---
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 hours with return to pre-existing conscious level, subsequent encounter (11/02/17) History of falling (11/02/17) Physical Therapy Treatment Note PT-OP-A Visit Information Start: 09/28/17 15:21 Freq: Status: Active Protocol: Document 11/02/17 12:00 DCW (Rec: 11/02/17 12:42 DCW [id number]) Out-Patient Physical Therapy Visit Information Visit Information Visit Type Treatment Note Visit Start Time 12:00 Visit Stop Time 12:45 Total Visit Minutes 45 Visit Number 24 Number of COMMUNITY SUPPORT WORKER Visits 0 Evaluation Information Evaluation Date 07/27/17 PT-OP-B Current Condition Start: 09/28/17 15:21 Freq: Status: Active Protocol: Document 10/12/17 13:45 DCW (Rec: 10/12/17 18:33 DCW [id number]) Current Condition History of Current Condition Onset Date 02/05/17 History of Current Condition See Pt's initial evaluation in Therapy Source Current Functional Impairments (Reported) Functional Limitations- Mobility/Gait Transfers:W/C<->Mat Stand- pivot: Independent PT-OP-C Subjective Start: 09/28/17 15:21 Freq: Status: Active Protocol: Document 11/02/17 12:00 DCW (Rec: 11/02/17 12:42 DCW [id number]) OP-PT Subjective Patient Comments Patient Comments Pt reports he feels pretty fatigued today, more so than normal. PT-OP-Q Treatments Start: 09/28/17 15:21 Freq: Status: Active Protocol: Document 11/02/17 12:00 DCW (Rec: 11/02/17 12:42 DCW [id number]) Gym Equipment Shuttle Recovery Bilateral Heel Raises Resistance 87# Shuttle Recovery Platform Stable Reps/Time x60 Unilateral Squats Resistance 62# Shuttle Recovery Platform Stable Reps/Time x20 Bilateral Squats Resistance 125# Shuttle Recovery Platform Stable Reps/Time x30 Shuttle Balance 1 Details Yellow - Wide WILIAN Reps/Duration 11 min Gait Training Gait Activity 3 Device Used 4WW Level of Assistance SBA Distance/Duration 575 Treatment Focus Increased gait distance/ tolerance Comments v/c for proper breathing, joan Neuro Re-Education Treatment Balance Activities 3 Details Hurdles/Foam in // bars Equipment Hurdles, Foam, // bars, 5# ankle weights PT-OP-T Assessment and Plan Start: 09/28/17 15:21 Freq: Status: Active Protocol: Document 11/02/17 12:00 DCW (Rec: 11/02/17 12:42 DCW [id number]) Physical Therapy Assessment Rehab Potential Rehabilitation Potential Good Impairments Impairments Activity Tolerance Balance Functional Activities Functional Mobility Gait ROM Strength Goals Six Impairment Static Standing Balance Short Term Goal (STG) Pt to hold double leg balance with eyes open on a firm surface for 60 seconds STG Duration Met Snf Goal (LTG) Pt to stand independently for 2 minutes LTG Duration 11/15/17 Five Impairment Gait tolerance Snf Goal (LTG) Pt to tolerate 600' ambulation without rest using 4WW LTG Duration 11/15/17 Four Impairment Foot slap Short Term Goal (STG) Pt to regularly wear R AFO to limit foot drop and help normalize gait pattern STG Duration Goal Met Three Impairment Transfers Short Term Goal (STG) Pt to transfer independently from mat<->w/c with no assistive devices STG Duration Met Two Impairment Ankle weakness Research And Development Director Goal (LTG) Pt to display 2/5 MMT in R DF, 4/5 MMT in R PF, and 4+/5 MMT in all other bilateral ankle movements LTG Duration 11/15/17 One Impairment Activity tolerance Research And Development Director Goal (LTG) Pt to tolerate activity up to 15 minutes without a break LTG Duration 11/15/17 Progress Towards Goals Progress Towards Goals Progressing Toward Goals Slow Progress due to Activity Tolerance Slow Progress due to Medical Issues Progress Comments Met static standing balance, independent transfer, and AFO goals. Excellent progress on LE MMT goals. Some progress on 6 MWT goal Assessment Summary Assessment Increased gait distance today. Pt struggled with increased balance challenges in // bars, however was able to improve as he got used to it. Physical Therapy Plan Frequency and Duration Frequency of Treatment 2x/Week Duration of Treatment 12 weeks Plan of Care Start Date 10/12/17 Plan of Care End Date 01/03/18 Therapeutic Interventions Therapeutic Interventions Aquatic Therapy Balance Training Gait Training Home Exercise Program Manual Therapy Neuromuscular Re-education Soft Tissue Mobilization Therapeutic Activities Therapeutic Exercises Next Visit Focus/Plan Next Visit Plan Increased activity tolerance and balance training.
--- NOTE | 2017-11-05 14:32 | PT.OTN ---
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 with return to pre-existing conscious level, subsequent encounter (11/05/17) History of falling (11/05/17) Physical Therapy Treatment Note PT-OP-A Visit Information Start: 09/28/17 15:21 Freq: Status: Active Protocol: Document 11/05/17 13:45 DCW (Rec: 11/05/17 14:32 DCW [id number]) Out-Patient Physical Therapy Visit Information Visit Information Visit Type Treatment Note Visit Start Time 01:45 Visit Stop Time 02:30 Total Visit Minutes 45 Visit Number [address] LIGHT LAMP CLEANER Visits 0 Evaluation Information Evaluation Date 07/27/17 PT-OP-B Current Condition Start: 09/28/17 15:21 Freq: Status: Active Protocol: Document 10/12/17 13:45 DCW (Rec: 10/12/17 18:33 DCW [id number]) Current Condition History of Current Condition Onset Date 02/05/17 History of Current Condition See Pt's initial evaluation in Therapy Source Current Functional Impairments (Reported) Functional Limitations- Mobility/Gait Transfers:W/C<->Mat Stand- pivot: Independent PT-OP-C Subjective Start: 09/28/17 15:21 Freq: Status: Active Protocol: Document 11/05/17 13:45 DCW (Rec: 11/05/17 14:32 DCW [id number]) OP-PT Subjective Patient Comments Patient Comments Pt reports he is doing well today, and wants to try for a longer walk. PT-OP-Q Treatments Start: 09/28/17 15:21 Freq: Status: Active Protocol: Document 11/05/17 13:45 DCW (Rec: 11/05/17 14:32 DCW [id number]) Gym Equipment Shuttle Recovery Bilateral Heel Raises Resistance 100# Shuttle Recovery Platform Stable Reps/Time x60 Unilateral Squats Resistance 75# Shuttle Recovery Platform Stable Reps/Time x20 Bilateral Squats Resistance 125# Shuttle Recovery Platform Stable Reps/Time x30 Gait Training Gait Activity 3 Device Used 4WW Level of Assistance SBA Distance/Duration 750' Treatment Focus Increased gait distance/ tolerance Comments v/c for proper breathing, joan Neuro Re-Education Treatment Balance Activities 3 Details Hurdles/Foam in // bars Equipment Hurdles, Foam, // bars, 5# ankle weights PT-OP-T Assessment and Plan Start: 09/28/17 15:21 Freq: Status: Active Protocol: Document 11/05/17 13:45 DCW (Rec: 11/05/17 14:32 DCW [id number]) Physical Therapy Assessment Rehab Potential Rehabilitation Potential Good Impairments Impairments Activity Tolerance Balance Functional Activities Functional Mobility Gait ROM Strength Goals Six Impairment Static Standing Balance Short Term Goal (STG) Pt to hold double leg balance with eyes open on a firm surface for 60 seconds STG Duration Met Junior Account Executive Goal (LTG) Pt to stand independently for 2 minutes LTG Duration 11/15/17 Five Impairment Gait tolerance Junior Account Executive Goal (LTG) Pt to tolerate 600' ambulation without rest using 4WW LTG Duration Met Four Impairment Foot slap Short Term Goal (STG) Pt to regularly wear R AFO to limit foot drop and help normalize gait pattern STG Duration Goal Met Three Impairment Transfers Short Term Goal (STG) Pt to transfer independently from mat<->w/c with no assistive devices STG Duration Met Two Impairment Ankle weakness Half-Way Goal (LTG) Pt to display 2/5 MMT in R DF, 4/5 MMT in R PF, and 4+/5 MMT in all other bilateral ankle movements LTG Duration 11/15/17 One Impairment Activity tolerance Junior Account Executive Goal (LTG) Pt to tolerate activity up to 15 minutes without a break LTG Duration 11/15/17 Progress Towards Goals Progress Towards Goals Progressing Toward Goals Slow Progress due to Activity Tolerance Slow Progress due to Medical Issues Progress Comments Met static standing balance, independent transfer, and AFO goals. Excellent progress on LE MMT goals. Some progress on 6 MWT goal Assessment Summary Assessment Increased gait distance again today, and reached ambulation distance goal. Pt also improved with the balance training in the // bars. Physical Therapy Plan Frequency and Duration Frequency of Treatment 2x/Week Duration of Treatment 12 weeks Plan of Care Start Date 10/12/17 Plan of Care End Date 01/03/18 Therapeutic Interventions Therapeutic Interventions Aquatic Therapy Balance Training Gait Training Home Exercise Program Manual Therapy Neuromuscular Re-education Soft Tissue Mobilization Therapeutic Activities Therapeutic Exercises Next Visit Focus/Plan Next Note Type Treatment Note Next Visit Plan Increased activity tolerance and balance training.
--- NOTE | 2017-11-09 12:44 | PT.OTN ---
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 with return to pre-existing conscious level, subsequent encounter (11/09/17) History of falling (11/09/17) Physical Therapy Treatment Note PT-OP-A Visit Information Start: 09/28/17 15:21 Freq: Status: Active Protocol: Document 11/09/17 12:00 DCW (Rec: 11/09/17 12:43 DCW [id number]) Out-Patient Physical Therapy Visit Information Visit Information Visit Type Treatment Note Visit Start Time 12:00 Visit Stop Time 12:45 Total Visit Minutes 45 Visit Number 26 Number of ORGANIZATIONAL EFFECTIVENESS CONSULTANT Visits 0 Evaluation Information Evaluation Date 07/27/17 PT-OP-B Current Condition Start: 09/28/17 15:21 Freq: Status: Active Protocol: Document 10/12/17 13:45 DCW (Rec: 10/12/17 18:33 DCW [id number]) Current Condition History of Current Condition Onset Date 02/05/17 History of Current Condition See Pt's initial evaluation in Therapy Source Current Functional Impairments (Reported) Functional Limitations- Mobility/Gait Transfers:W/C<->Mat Stand- pivot: Independent PT-OP-C Subjective Start: 09/28/17 15:21 Freq: Status: Active Protocol: Document 11/09/17 12:00 DCW (Rec: 11/09/17 12:43 DCW [id number]) OP-PT Subjective Patient Comments Patient Comments Pt reports he feels pretty good today. PT-OP-Q Treatments Start: 09/28/17 15:21 Freq: Status: Active Protocol: Document 11/09/17 12:00 DCW (Rec: 11/09/17 12:43 DCW [id number]) Gym Equipment Shuttle Balance 1 Details Yellow - Wide WILIAN Reps/Duration 11 min Gait Training Gait Activity 3 Device Used 4WW Level of Assistance SBA Distance/Duration 750' Treatment Focus Increased gait distance/ tolerance Comments v/c for proper breathing, joan Neuro Re-Education Treatment Balance Activities 4 Details Side-stepping /c hurdles/foam in // bars 3 Details Hurdles/Foam in // bars Equipment Hurdles, Foam, // bars, 5# ankle weights PT-OP-T Assessment and Plan Start: 09/28/17 15:21 Freq: Status: Active Protocol: Document 11/09/17 12:00 DCW (Rec: 11/09/17 12:43 DCW [id number]) Physical Therapy Assessment Rehab Potential Rehabilitation Potential Good Impairments Impairments Activity Tolerance Balance Functional Activities Functional Mobility Gait ROM Strength Goals Six Impairment Static Standing Balance Short Term Goal (STG) Pt to hold double leg balance with eyes open on a firm surface for 60 seconds STG Duration Met Jitterbug Operator Goal (LTG) Pt to stand independently for 2 minutes LTG Duration 11/15/17 Five Impairment Gait tolerance Senior Care Goal (LTG) Pt to tolerate 600' ambulation without rest using 4WW LTG Duration Met Four Impairment Foot slap Short Term Goal (STG) Pt to regularly wear R AFO to limit foot drop and help normalize gait pattern STG Duration Goal Met Three Impairment Transfers Short Term Goal (STG) Pt to transfer independently from mat<->w/c with no assistive devices STG Duration Met Two Impairment Ankle weakness Jitterbug Operator Goal (LTG) Pt to display 2/5 MMT in R DF, 4/5 MMT in R PF, and 4+/5 MMT in all other bilateral ankle movements LTG Duration 11/15/17 One Impairment Activity tolerance Senior Care Goal (LTG) Pt to tolerate activity up to 15 minutes without a break LTG Duration 11/15/17 Progress Towards Goals Progress Towards Goals Progressing Toward Goals Slow Progress due to Activity Tolerance Slow Progress due to Medical Issues Progress Comments Met static standing balance, independent transfer, and AFO goals. Excellent progress on LE MMT goals. Some progress on 6 MWT goal Assessment Summary Assessment Pt continues to display good gains in gait and balance. Physical Therapy Plan Frequency and Duration Frequency of Treatment 2x/Week Duration of Treatment 12 weeks Plan of Care Start Date 10/12/17 Plan of Care End Date 01/03/18 Therapeutic Interventions Therapeutic Interventions Aquatic Therapy Balance Training Gait Training Home Exercise Program Manual Therapy Neuromuscular Re-education Soft Tissue Mobilization Therapeutic Activities Therapeutic Exercises Next Visit Focus/Plan Next Note Type Treatment Note Next Visit Plan Increased activity tolerance and balance training.
--- NOTE | 2017-11-16 10:30 | PT.OTN ---
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 with return to pre-existing conscious level, subsequent encounter (11/16/17) History of falling (11/16/17) Physical Therapy Treatment Note PT-OP-A Visit Information Start: 09/28/17 15:21 Freq: Status: Active Protocol: Document 11/16/17 09:45 DCW (Rec: 11/16/17 10:30 DCW [id number]) Out-Patient Physical Therapy Visit Information Visit Information Visit Type Treatment Note Visit Start Time 09:45 Visit Stop Time 10:30 Total Visit Minutes 45 Visit Number 27 Number of TRUST CLERK Visits 0 Evaluation Information Evaluation Date 07/27/17 PT-OP-B Current Condition Start: 09/28/17 15:21 Freq: Status: Active Protocol: Document 10/12/17 13:45 DCW (Rec: 10/12/17 18:33 DCW [id number]) Current Condition History of Current Condition Onset Date 02/05/17 History of Current Condition See Pt's initial evaluation in Therapy Source Current Functional Impairments (Reported) Functional Limitations- Mobility/Gait Transfers:W/C<->Mat Stand- pivot: Independent PT-OP-C Subjective Start: 09/28/17 15:21 Freq: Status: Active Protocol: Document 11/16/17 09:45 DCW (Rec: 11/16/17 10:30 DCW [id number]) OP-PT Subjective Patient Comments Patient Comments Pt excitedly shows that he has noticed increased R dorsiflexion today. PT-OP-Q Treatments Start: 09/28/17 15:21 Freq: Status: Active Protocol: Document 11/16/17 09:45 DCW (Rec: 11/16/17 10:30 DCW [id number]) Cardio Equipment Recumbent Elliptical (Biodex) Duration (Minutes) 7 Resistance 4 Seat Position 10 Gym Equipment Shuttle Recovery Bilateral Heel Raises Resistance 100# Shuttle Recovery Platform Stable Reps/Time x60 Unilateral Squats Resistance 75# Shuttle Recovery Platform Stable Reps/Time x20 Bilateral Squats Resistance 125# Shuttle Recovery Platform Stable Reps/Time x30 Gait Training Gait Activity 3 Device Used 4WW Level of Assistance SBA Distance/Duration 510' x1, 340' x1 Treatment Focus Increased gait distance/ tolerance Comments v/c for proper breathing, joan Neuro Re-Education Treatment Balance Activities 3 Details Hurdles/Foam in // bars Equipment Hurdles, Foam, // bars, 5# ankle weights PT-OP-T Assessment and Plan Start: 09/28/17 15:21 Freq: Status: Active Protocol: Document 11/16/17 09:45 DCW (Rec: 11/16/17 10:30 DCW [id number]) Physical Therapy Assessment Rehab Potential Rehabilitation Potential Good Impairments Impairments Activity Tolerance Balance Functional Activities Functional Mobility Gait ROM Strength Goals Six Impairment Static Standing Balance Short Term Goal (STG) Pt to hold double leg balance with eyes open on a firm surface for 60 seconds STG Duration Met Group Home Goal (LTG) Pt to stand independently for 2 minutes LTG Duration 11/15/17 Five Impairment Gait tolerance Respiratory Therapy Aide Goal (LTG) Pt to tolerate 600' ambulation without rest using 4WW LTG Duration Met Four Impairment Foot slap Short Term Goal (STG) Pt to regularly wear R AFO to limit foot drop and help normalize gait pattern STG Duration Goal Met Three Impairment Transfers Short Term Goal (STG) Pt to transfer independently from mat<->w/c with no assistive devices STG Duration Met Two Impairment Ankle weakness Respiratory Therapy Aide Goal (LTG) Pt to display 2/5 MMT in R DF, 4/5 MMT in R PF, and 4+/5 MMT in all other bilateral ankle movements LTG Duration 11/15/17 One Impairment Activity tolerance Group Home Goal (LTG) Pt to tolerate activity up to 15 minutes without a break LTG Duration 11/15/17 Progress Towards Goals Progress Towards Goals Progressing Toward Goals Slow Progress due to Activity Tolerance Slow Progress due to Medical Issues Progress Comments Met static standing balance, independent transfer, and AFO goals. Excellent progress on LE MMT goals. Some progress on 6 MWT goal Assessment Summary Assessment Due to pt reports of hip pain, his walk was broken up into two smaller distances, however total he was able to walk farther than normal. Physical Therapy Plan Frequency and Duration Frequency of Treatment 2x/Week Duration of Treatment 12 weeks Plan of Care Start Date 10/12/17 Plan of Care End Date 01/03/18 Therapeutic Interventions Therapeutic Interventions Aquatic Therapy Balance Training Gait Training Home Exercise Program Manual Therapy Neuromuscular Re-education Soft Tissue Mobilization Therapeutic Activities Therapeutic Exercises Next Visit Focus/Plan Next Note Type Treatment Note Next Visit Plan Increased activity tolerance and balance training.
--- NOTE | 2017-11-19 12:50 | PT.OTN ---
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 with return to pre-existing conscious level, subsequent encounter (11/19/17) History of falling (11/19/17) Physical Therapy Treatment Note PT-OP-A Visit Information Start: 09/28/17 15:21 Freq: Status: Active Protocol: Document 11/19/17 12:00 DCW (Rec: 11/19/17 12:49 DCW [id number]) Out-Patient Physical Therapy Visit Information Visit Information Visit Type Treatment Note Visit Start Time 12:00 Visit Stop Time 12:45 Total Visit Minutes 45 Visit Number 28 Number of HEALTH AND SAFETY DIRECTOR Visits 0 Evaluation Information Evaluation Date 07/27/17 PT-OP-B Current Condition Start: 09/28/17 15:21 Freq: Status: Active Protocol: Document 10/12/17 13:45 DCW (Rec: 10/12/17 18:33 DCW [id number]) Current Condition History of Current Condition Onset Date 02/05/17 History of Current Condition See Pt's initial evaluation in Therapy Source Current Functional Impairments (Reported) Functional Limitations- Mobility/Gait Transfers:W/C<->Mat Stand- pivot: Independent PT-OP-C Subjective Start: 09/28/17 15:21 Freq: Status: Active Protocol: Document 11/19/17 12:00 DCW (Rec: 11/19/17 12:49 DCW [id number]) OP-PT Subjective Patient Comments Patient Comments Pt reports he has no complaints today, other than I might be getting a cold. PT-OP-Q Treatments Start: 09/28/17 15:21 Freq: Status: Active Protocol: Document 11/19/17 12:00 DCW (Rec: 11/19/17 12:49 DCW [id number]) Gym Equipment Shuttle Recovery Bilateral Heel Raises Resistance 100# Shuttle Recovery Platform Stable Reps/Time x60 Unilateral Squats Resistance 75# Shuttle Recovery Platform Stable Reps/Time x20 Bilateral Squats Resistance 125# Shuttle Recovery Platform Stable Reps/Time x30 Gait Training Gait Activity 3 Device Used 4WW Level of Assistance SBA Distance/Duration 750' Treatment Focus Increased gait distance/ tolerance Comments v/c for proper breathing, joan Neuro Re-Education Treatment Balance Activities 4 Details Side-stepping /c hurdles/foam in // bars 3 Details Hurdles/Foam in // bars Equipment Hurdles, Foam, // bars, 5# ankle weights PT-OP-T Assessment and Plan Start: 09/28/17 15:21 Freq: Status: Active Protocol: Document 11/19/17 12:00 DCW (Rec: 11/19/17 12:49 DCW [id number]) Physical Therapy Assessment Goals Six Impairment Static Standing Balance Short Term Goal (STG) Pt to hold double leg balance with eyes open on a firm surface for 60 seconds STG Duration Met Prison Goal (LTG) Pt to stand independently for 2 minutes LTG Duration 11/15/17 Five Impairment Gait tolerance Patient Centered Care Specialist Goal (LTG) Pt to tolerate 600' ambulation without rest using 4WW LTG Duration Met Four Impairment Foot slap Short Term Goal (STG) Pt to regularly wear R AFO to limit foot drop and help normalize gait pattern STG Duration Goal Met Three Impairment Transfers Short Term Goal (STG) Pt to transfer independently from mat<->w/c with no assistive devices STG Duration Met Two Impairment Ankle weakness Prison Goal (LTG) Pt to display 2/5 MMT in R DF, 4/5 MMT in R PF, and 4+/5 MMT in all other bilateral ankle movements LTG Duration 11/15/17 One Impairment Activity tolerance Patient Centered Care Specialist Goal (LTG) Pt to tolerate activity up to 15 minutes without a break LTG Duration 11/15/17 Progress Towards Goals Progress Towards Goals Progressing Toward Goals Slow Progress due to Activity Tolerance Slow Progress due to Medical Issues Assessment Summary Assessment Pt doing better today, returned to his normal ambulation distance all at once. Physical Therapy Plan Frequency and Duration Frequency of Treatment 2x/Week Duration of Treatment 12 weeks Plan of Care Start Date 10/12/17 Plan of Care End Date 01/03/18 Therapeutic Interventions Therapeutic Interventions Aquatic Therapy Balance Training Gait Training Home Exercise Program Manual Therapy Neuromuscular Re-education Soft Tissue Mobilization Therapeutic Activities Therapeutic Exercises Next Visit Focus/Plan Next Note Type Treatment Note Next Visit Plan Increased activity tolerance and balance training.
--- NOTE | 2017-11-23 10:26 | PT.OTN ---
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 with return to pre-existing conscious level, subsequent encounter (11/23/17) History of falling (11/23/17) Physical Therapy Treatment Note PT-OP-A Visit Information Start: 09/28/17 15:21 Freq: Status: Active Protocol: Document 11/23/17 09:45 DCW (Rec: 11/23/17 10:26 DCW [id number]) Out-Patient Physical Therapy Visit Information Visit Information Visit Type Progress Note Visit Start Time 09:45 Visit Stop Time 10:30 Total Visit Minutes 45 Visit Number 29 Number of DAIRY SCIENCE TEACHER Visits 0 Evaluation Information Evaluation Date 07/27/17 PT-OP-B Current Condition Start: 09/28/17 15:21 Freq: Status: Active Protocol: Document 10/12/17 13:45 DCW (Rec: 10/12/17 18:33 DCW [id number]) Current Condition History of Current Condition Onset Date 02/05/17 History of Current Condition See Pt's initial evaluation in Therapy Source Current Functional Impairments (Reported) Functional Limitations- Mobility/Gait Transfers:W/C<->Mat Stand- pivot: Independent PT-OP-C Subjective Start: 09/28/17 15:21 Freq: Status: Active Protocol: Document 11/23/17 09:45 DCW (Rec: 11/23/17 10:26 DCW [id number]) OP-PT Subjective Patient Comments Patient Comments Pt reports feeling energetic today. PT-OP-Q Treatments Start: 09/28/17 15:21 Freq: Status: Active Protocol: Document 11/23/17 09:45 DCW (Rec: 11/23/17 10:26 DCW [id number]) Gym Equipment Shuttle Recovery Bilateral Heel Raises Resistance 100# Shuttle Recovery Platform Stable Reps/Time x60 Unilateral Squats Resistance 75# Shuttle Recovery Platform Stable Reps/Time x20 Bilateral Squats Resistance 125# Shuttle Recovery Platform Stable Reps/Time x30 Shuttle Balance 1 Details Yellow - Wide WILIAN Gait Training Gait Activity 3 Device Used 4WW Level of Assistance SBA Distance/Duration 580' Treatment Focus Increased gait distance/ tolerance Comments v/c for proper breathing, joan Neuro Re-Education Treatment Balance Activities 4 Details Side-stepping /c hurdles/foam in // bars 3 Details Hurdles/Foam in // bars Equipment Hurdles, Foam, // bars, 5# ankle weights PT-OP-T Assessment and Plan Start: 09/28/17 15:21 Freq: Status: Active Protocol: Document 11/23/17 09:45 DCW (Rec: 11/23/17 10:26 DCW [id number]) Physical Therapy Assessment Rehab Potential Rehabilitation Potential Good Impairments Impairments Activity Tolerance Balance Functional Activities Functional Mobility Gait ROM Strength Goals Six Impairment Static Standing Balance Short Term Goal (STG) Pt to hold double leg balance with eyes open on a firm surface for 60 seconds STG Duration Met Snf Goal (LTG) Pt to stand independently for 2 minutes LTG Duration 12/15/17 Five Impairment Gait tolerance Snf Goal (LTG) Pt to tolerate 1000' ambulation without rest using 4WW LTG Duration 12/15/17 Four Impairment Foot slap Short Term Goal (STG) Pt to regularly wear R AFO to limit foot drop and help normalize gait pattern STG Duration Goal Met Three Impairment Transfers Short Term Goal (STG) Pt to transfer independently from mat<->w/c with no assistive devices STG Duration Met Two Impairment Ankle weakness Rake Operator Goal (LTG) Pt to display 2/5 MMT in R DF, 4/5 MMT in R PF, and 4+/5 MMT in all other bilateral ankle movements LTG Duration 12/15/17 One Impairment Activity tolerance Rake Operator Goal (LTG) Pt to tolerate activity up to 15 minutes without a break LTG Duration 12/15/17 Progress Towards Goals Progress Towards Goals Progressing Toward Goals Slow Progress due to Activity Tolerance Slow Progress due to Medical Issues Assessment Summary Assessment Pt displays consistent ambulation improvement, increased tolerance to both gait distance and time spent on the Shuttle Balance Physical Therapy Plan Frequency and Duration Frequency of Treatment 2x/Week Duration of Treatment 12 weeks Plan of Care Start Date 10/12/17 Plan of Care End Date 01/03/18 Therapeutic Interventions Therapeutic Interventions Aquatic Therapy Balance Training Gait Training Home Exercise Program Manual Therapy Neuromuscular Re-education Soft Tissue Mobilization Therapeutic Activities Therapeutic Exercises Next Visit Focus/Plan Next Note Type Treatment Note Next Visit Plan Increased activity tolerance and balance training.
--- NOTE | 2017-11-23 10:30 | PT.OPPN ---
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 with return to pre-existing conscious level, subsequent encounter (11/23/17) History of falling (11/23/17) Physical Therapy Progress Note PT-OP-A Visit Information Start: 09/28/17 15:21 Freq: Status: Active Protocol: Document 11/23/17 09:45 DCW (Rec: 11/23/17 10:26 DCW [id number]) Out-Patient Physical Therapy Visit Information Visit Information Visit Type Progress Note Visit Start Time 09:45 Visit Stop Time 10:30 Total Visit Minutes 45 Visit Number 29 Number of LAYOUT MAN Visits 0 Evaluation Information Evaluation Date 07/27/17 PT-OP-B Current Condition Start: 09/28/17 15:21 Freq: Status: Active Protocol: Document 10/12/17 13:45 DCW (Rec: 10/12/17 18:33 DCW [id number]) Current Condition History of Current Condition Onset Date 02/05/17 History of Current Condition See Pt's initial evaluation in Therapy Source Current Functional Impairments (Reported) Functional Limitations- Mobility/Gait Transfers:W/C<->Mat Stand- pivot: Independent PT-OP-C Subjective Start: 09/28/17 15:21 Freq: Status: Active Protocol: Document 11/23/17 09:45 DCW (Rec: 11/23/17 10:26 DCW [id number]) OP-PT Subjective Patient Comments Patient Comments Pt reports feeling energetic today. PT-OP-D Balance Start: 10/12/17 18:11 Freq: Status: Active Protocol: Document 10/12/17 13:45 DCW (Rec: 10/12/17 18:33 DCW [id number]) OP-PT Balance Assessment Standing Balance Standing Balance Comments Double leg, Eyes open: 1'30.53 Mejia Fall Scale Copyright Permission Roberto KELLY, Roberto RM, Mark SJ. Development of a scale to identify the fall- prone patient. Can J Aging 1989;8;366-7. Catrachita Mejia (2009). Preventing patient falls. (2nd ed). [place]: [place]. PT-OP-E Functional Tests Start: 10/12/17 18:11 Freq: Status: Active Protocol: Document 10/12/17 13:45 DCW (Rec: 10/12/17 18:33 DCW [id number]) Functional Tests 6 Minute Walk Test Distance 365' Device Used 4WW Comments Stopped test at 3 min PT-OP-M Strength Start: 10/12/17 18:11 Freq: Status: Active Protocol: Document 10/12/17 13:45 DCW (Rec: 10/12/17 18:33 DCW [id number]) Hip Strength Hip Manual Muscle Testing Right Flexion (L2) 4+ Good+ Abduction 5 Normal Adduction 5 Normal Left Flexion (L2) 4+ Good+ Abduction 5 Normal Adduction 5 Normal Knee Strength Knee Manual Muscle Testing Right Flexion (S2) 4+ Good+ Extension (L3) 5 Normal Left Flexion (S2) 4+ Good+ Extension (L3) 5 Normal Ankle/Foot Strength Ankle and Foot Manual Muscle Testing Right Dorsiflexion (L4) 2- Poor- Plantarflexion (S1) 3 Fair Left Dorsiflexion (L4) 4+ Good+ Plantarflexion (S1) 5 Normal PT-OP-T Assessment and Plan Start: 09/28/17 15:21 Freq: Status: Active Protocol: Document 11/23/17 09:45 DCW (Rec: 11/23/17 10:26 DCW [id number]) Physical Therapy Assessment Rehab Potential Rehabilitation Potential Good Impairments Impairments Activity Tolerance Balance Functional Activities Functional Mobility Gait ROM Strength Goals Six Impairment Static Standing Balance Short Term Goal (STG) Pt to hold double leg balance with eyes open on a firm surface for 60 seconds STG Duration Met Solar Sales Consultant Goal (LTG) Pt to stand independently for 2 minutes LTG Duration 12/15/17 Five Impairment Gait tolerance Chcf Goal (LTG) Pt to tolerate 1000' ambulation without rest using 4WW LTG Duration 12/15/17 Four Impairment Foot slap Short Term Goal (STG) Pt to regularly wear R AFO to limit foot drop and help normalize gait pattern STG Duration Goal Met Three Impairment Transfers Short Term Goal (STG) Pt to transfer independently from mat<->w/c with no assistive devices STG Duration Met Two Impairment Ankle weakness Solar Sales Consultant Goal (LTG) Pt to display 2/5 MMT in R DF, 4/5 MMT in R PF, and 4+/5 MMT in all other bilateral ankle movements LTG Duration 12/15/17 One Impairment Activity tolerance Chcf Goal (LTG) Pt to tolerate activity up to 15 minutes without a break LTG Duration 12/15/17 Progress Towards Goals Progress Towards Goals Progressing Toward Goals Slow Progress due to Activity Tolerance Slow Progress due to Medical Issues Assessment Summary Assessment Pt displays consistent ambulation improvement, increased tolerance to both gait distance and time spent on the Shuttle Balance Physical Therapy Plan Frequency and Duration Frequency of Treatment 2x/Week Duration of Treatment 12 weeks Plan of Care Start Date 10/12/17 Plan of Care End Date 01/03/18 Therapeutic Interventions Therapeutic Interventions Aquatic Therapy Balance Training Gait Training Home Exercise Program Manual Therapy Neuromuscular Re-education Soft Tissue Mobilization Therapeutic Activities Therapeutic Exercises Next Visit Focus/Plan Next Note Type Treatment Note Next Visit Plan Increased activity tolerance and balance training.
--- NOTE | 2017-11-26 10:30 | PT.OTN ---
Current Diagnoses Foot drop, right foot (11/26/17) Muscle weakness (generalized) (11/26/17) Unsteadiness on feet (11/26/17) Unspecified abnormalities of gait and mobility (11/26/17) Traumatic subdural hemorrhage with loss of consciousness greater than 24 hours with return to pre-existing conscious level, subsequent encounter (11/26/17) History of falling (11/26/17) Physical Therapy Treatment Note PT-OP-A Visit Information Start: 09/28/17 15:21 Freq: Status: Active Protocol: Document 11/26/17 09:45 DCW (Rec: 11/26/17 10:30 DCW [id number]) Out-Patient Physical Therapy Visit Information Visit Information Visit Type Treatment Note Visit Start Time 09:45 Visit Stop Time 10:30 Total Visit Minutes 45 Visit Number 30 Number of FINANCIAL ASSISTANCE SPECIALIST Visits 0 Evaluation Information Evaluation Date 07/27/17 PT-OP-B Current Condition Start: 09/28/17 15:21 Freq: Status: Active Protocol: Document 10/12/17 13:45 DCW (Rec: 10/12/17 18:33 DCW [id number]) Current Condition History of Current Condition Onset Date 02/05/17 History of Current Condition See Pt's initial evaluation in Therapy Source Current Functional Impairments (Reported) Functional Limitations- Mobility/Gait Transfers:W/C<->Mat Stand- pivot: Independent PT-OP-C Subjective Start: 09/28/17 15:21 Freq: Status: Active Protocol: Document 11/26/17 09:45 DCW (Rec: 11/26/17 10:30 DCW [id number]) OP-PT Subjective Patient Comments Patient Comments Pt doing well today, no new complaints. PT-OP-D Balance Start: 10/12/17 18:11 Freq: Status: Active Protocol: Document 10/12/17 13:45 DCW (Rec: 10/12/17 18:33 DCW [id number]) OP-PT Balance Assessment Standing Balance Standing Balance Comments Double leg, Eyes open: 1'30.53 Mejia Fall Scale Copyright Permission Roberto KELLY, Roberto RM, Mark SJ. Development of a scale to identify the fall- prone patient. Can J Aging 1989;8;366-7. Catrachita Mejia (2009). Preventing patient falls. (2nd ed). [place]: [place]. PT-OP-E Functional Tests Start: 10/12/17 18:11 Freq: Status: Active Protocol: Document 10/12/17 13:45 DCW (Rec: 10/12/17 18:33 DCW [id number]) Functional Tests 6 Minute Walk Test Distance 365' Device Used 4WW Comments Stopped test at 3 min PT-OP-M Strength Start: 10/12/17 18:11 Freq: Status: Active Protocol: Document 10/12/17 13:45 DCW (Rec: 10/12/17 18:33 DCW [id number]) Hip Strength Hip Manual Muscle Testing Right Flexion (L2) 4+ Good+ Abduction 5 Normal Adduction 5 Normal Left Flexion (L2) 4+ Good+ Abduction 5 Normal Adduction 5 Normal Knee Strength Knee Manual Muscle Testing Right Flexion (S2) 4+ Good+ Extension (L3) 5 Normal Left Flexion (S2) 4+ Good+ Extension (L3) 5 Normal Ankle/Foot Strength Ankle and Foot Manual Muscle Testing Right Dorsiflexion (L4) 2- Poor- Plantarflexion (S1) 3 Fair Left Dorsiflexion (L4) 4+ Good+ Plantarflexion (S1) 5 Normal PT-OP-Q Treatments Start: 09/28/17 15:21 Freq: Status: Active Protocol: Document 11/26/17 09:45 DCW (Rec: 11/26/17 10:30 DCW [id number]) Gym Equipment Shuttle Recovery Unilateral Squats Resistance 75# Shuttle Recovery Platform Stable Reps/Time x20 Bilateral Squats Resistance 125# Shuttle Recovery Platform Stable Reps/Time x30 Shuttle Balance 1 Details Yellow - Wide WILIAN Gait Training Gait Activity 3 Device Used 4WW Level of Assistance SBA Distance/Duration 750' Treatment Focus Increased gait distance/ tolerance Comments v/c for proper breathing, joan Neuro Re-Education Treatment Balance Activities 4 Details Side-stepping /c hurdles/foam in // bars 3 Details Hurdles/Foam in // bars Equipment Hurdles, Foam, // bars, 5# ankle weights PT-OP-T Assessment and Plan Start: 09/28/17 15:21 Freq: Status: Active Protocol: Document 11/26/17 09:45 DCW (Rec: 11/26/17 10:30 DCW [id number]) Physical Therapy Assessment Impairments Impairments Activity Tolerance Balance Functional Activities Functional Mobility Gait ROM Strength Goals Six Impairment Static Standing Balance Short Term Goal (STG) Pt to hold double leg balance with eyes open on a firm surface for 60 seconds STG Duration Met General Accounting Clerk Goal (LTG) Pt to stand independently for 2 minutes LTG Duration 12/15/17 Five Impairment Gait tolerance General Accounting Clerk Goal (LTG) Pt to tolerate 1000' ambulation without rest using 4WW LTG Duration 12/15/17 Four Impairment Foot slap Short Term Goal (STG) Pt to regularly wear R AFO to limit foot drop and help normalize gait pattern STG Duration Goal Met Three Impairment Transfers Short Term Goal (STG) Pt to transfer independently from mat<->w/c with no assistive devices STG Duration Met Two Impairment Ankle weakness [facility] Goal (LTG) Pt to display 2/5 MMT in R DF, 4/5 MMT in R PF, and 4+/5 MMT in all other bilateral ankle movements LTG Duration 12/15/17 One Impairment Activity tolerance [facility] Goal (LTG) Pt to tolerate activity up to 15 minutes without a break LTG Duration 12/15/17 Progress Towards Goals Progress Towards Goals Progressing Toward Goals Slow Progress due to Activity Tolerance Slow Progress due to Medical Issues Assessment Summary Assessment Pt returned to 700'+ ambulation today, but was then a little more fatigued than normal, and struggled with much of his balance activities. Physical Therapy Plan Frequency and Duration Frequency of Treatment 2x/Week Duration of Treatment 12 weeks Plan of Care Start Date 10/12/17 Plan of Care End Date 01/03/18 Therapeutic Interventions Therapeutic Interventions Aquatic Therapy Balance Training Gait Training Home Exercise Program Manual Therapy Neuromuscular Re-education Soft Tissue Mobilization Therapeutic Activities Therapeutic Exercises Next Visit Focus/Plan Next Note Type Treatment Note Next Visit Plan Increased activity tolerance and balance training.
--- NOTE | 2017-11-30 12:03 | PT.OTN ---
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 greater than 24 hours with return to pre-existing conscious level, subsequent encounter (11/30/17) History of falling (11/30/17) Physical Therapy Treatment Note PT-OP-A Visit Information Start: 09/28/17 15:21 Freq: Status: Active Protocol: Document 11/30/17 11:15 DCW (Rec: 11/30/17 12:03 DCW [id number]) Out-Patient Physical Therapy Visit Information Visit Information Visit Type Treatment Note Visit Start Time 11:15 Visit Stop Time 12:00 Total Visit Minutes 45 Visit Number 31 Number of RUBBER MOLDER Visits 0 Evaluation Information Evaluation Date 07/27/17 PT-OP-B Current Condition Start: 09/28/17 15:21 Freq: Status: Active Protocol: Document 10/12/17 13:45 DCW (Rec: 10/12/17 18:33 DCW [id number]) Current Condition History of Current Condition Onset Date 02/05/17 History of Current Condition See Pt's initial evaluation in Therapy Source Current Functional Impairments (Reported) Functional Limitations- Mobility/Gait Transfers:W/C<->Mat Stand- pivot: Independent PT-OP-C Subjective Start: 09/28/17 15:21 Freq: Status: Active Protocol: Document 11/30/17 11:15 DCW (Rec: 11/30/17 12:03 DCW [id number]) OP-PT Subjective Patient Comments Patient Comments Pt reports that he was not feeling well when he first work up this morning, but is doing much better now. PT-OP-D Balance Start: 10/12/17 18:11 Freq: Status: Active Protocol: Document 10/12/17 13:45 DCW (Rec: 10/12/17 18:33 DCW [id number]) OP-PT Balance Assessment Standing Balance Standing Balance Comments Double leg, Eyes open: 1'30.53 Mejia Fall Scale Copyright Permission Roberto KELLY, Roberto RM, Mark SJ. Development of a scale to identify the fall- prone patient. Can J Aging 1989;8;366-7. Catrachita Mejia (2009). Preventing patient falls. (2nd ed). [place]: [place]. PT-OP-E Functional Tests Start: 10/12/17 18:11 Freq: Status: Active Protocol: Document 10/12/17 13:45 DCW (Rec: 10/12/17 18:33 DCW [id number]) Functional Tests 6 Minute Walk Test Distance 365' Device Used 4WW Comments Stopped test at 3 min PT-OP-M Strength Start: 10/12/17 18:11 Freq: Status: Active Protocol: Document 10/12/17 13:45 DCW (Rec: 10/12/17 18:33 DCW [id number]) Hip Strength Hip Manual Muscle Testing Right Flexion (L2) 4+ Good+ Abduction 5 Normal Adduction 5 Normal Left Flexion (L2) 4+ Good+ Abduction 5 Normal Adduction 5 Normal Knee Strength Knee Manual Muscle Testing Right Flexion (S2) 4+ Good+ Extension (L3) 5 Normal Left Flexion (S2) 4+ Good+ Extension (L3) 5 Normal Ankle/Foot Strength Ankle and Foot Manual Muscle Testing Right Dorsiflexion (L4) 2- Poor- Plantarflexion (S1) 3 Fair Left Dorsiflexion (L4) 4+ Good+ Plantarflexion (S1) 5 Normal PT-OP-Q Treatments Start: 09/28/17 15:21 Freq: Status: Active Protocol: Document 11/30/17 11:15 DCW (Rec: 11/30/17 12:03 DCW [id number]) Gym Equipment Shuttle Recovery Bilateral Heel Raises Resistance 100# Shuttle Recovery Platform Stable Reps/Time x60 Unilateral Squats Resistance 75# Shuttle Recovery Platform Stable Reps/Time x20 Bilateral Squats Resistance 125# Shuttle Recovery Platform Stable Reps/Time x30 Shuttle Balance 1 Details Yellow - Wide WILIAN Gait Training Gait Activity 3 Device Used 4WW Level of Assistance SBA Distance/Duration 750' Treatment Focus Increased gait distance/ tolerance Comments v/c for proper breathing, joan Neuro Re-Education Treatment Balance Activities 4 Details Side-stepping /c hurdles/foam in // bars 3 Details Hurdles/Foam in // bars Equipment Hurdles, Foam, // bars, 5# ankle weights PT-OP-T Assessment and Plan Start: 09/28/17 15:21 Freq: Status: Active Protocol: Document 11/30/17 11:15 DCW (Rec: 11/30/17 12:03 DCW [id number]) Physical Therapy Assessment Impairments Impairments Activity Tolerance Balance Functional Activities Functional Mobility Gait ROM Strength Goals Six Impairment Static Standing Balance Short Term Goal (STG) Pt to hold double leg balance with eyes open on a firm surface for 60 seconds STG Duration Met Assisted Goal (LTG) Pt to stand independently for 2 minutes LTG Duration 12/15/17 Five Impairment Gait tolerance Jewelry Sales Goal (LTG) Pt to tolerate 1000' ambulation without rest using 4WW LTG Duration 12/15/17 Four Impairment Foot slap Short Term Goal (STG) Pt to regularly wear R AFO to limit foot drop and help normalize gait pattern STG Duration Goal Met Three Impairment Transfers Short Term Goal (STG) Pt to transfer independently from mat<->w/c with no assistive devices STG Duration Met Two Impairment Ankle weakness Assisted Goal (LTG) Pt to display 2/5 MMT in R DF, 4/5 MMT in R PF, and 4+/5 MMT in all other bilateral ankle movements LTG Duration 12/15/17 One Impairment Activity tolerance Jewelry Sales Goal (LTG) Pt to tolerate activity up to 15 minutes without a break LTG Duration 12/15/17 Progress Towards Goals Progress Towards Goals Progressing Toward Goals Slow Progress due to Activity Tolerance Slow Progress due to Medical Issues Assessment Summary Assessment Pt performed all his activities well today, decreased fatigue from ambulation Physical Therapy Plan Frequency and Duration Frequency of Treatment 2x/Week Duration of Treatment 12 weeks Plan of Care Start Date 10/12/17 Plan of Care End Date 01/03/18 Therapeutic Interventions Therapeutic Interventions Aquatic Therapy Balance Training Gait Training Home Exercise Program Manual Therapy Neuromuscular Re-education Soft Tissue Mobilization Therapeutic Activities Therapeutic Exercises Next Visit Focus/Plan Next Note Type Treatment Note Next Visit Plan Increased activity tolerance and balance training.
--- NOTE | 2017-12-03 12:00 | PT.OTN ---
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 greater than 24 hours with return to pre-existing conscious level, subsequent encounter (12/03/17) History of falling (12/03/17) Physical Therapy Treatment Note PT-OP-A Visit Information Start: 09/28/17 15:21 Freq: Status: Active Protocol: Document 12/03/17 11:15 DCW (Rec: 12/03/17 12:00 DCW [id number]) Out-Patient Physical Therapy Visit Information Visit Information Visit Type Treatment Note Visit Start Time 11:15 Visit Stop Time 12:00 Total Visit Minutes 45 Visit Number 32 Number of SEMICONDUCTOR WAFERS ETCH OPERATOR Visits 0 Evaluation Information Evaluation Date 07/27/17 PT-OP-B Current Condition Start: 09/28/17 15:21 Freq: Status: Active Protocol: Document 10/12/17 13:45 DCW (Rec: 10/12/17 18:33 DCW [id number]) Current Condition History of Current Condition Onset Date 02/05/17 History of Current Condition See Pt's initial evaluation in Therapy Source Current Functional Impairments (Reported) Functional Limitations- Mobility/Gait Transfers:W/C<->Mat Stand- pivot: Independent PT-OP-C Subjective Start: 09/28/17 15:21 Freq: Status: Active Protocol: Document 12/03/17 11:15 DCW (Rec: 12/03/17 12:00 DCW [id number]) OP-PT Subjective Patient Comments Patient Comments I woke up with stiff legs and a stiff back, and I haven't had time to loosen up, so I am just giving you as many excuses as possible to warn you that I might not do well today. PT-OP-D Balance Start: 10/12/17 18:11 Freq: Status: Active Protocol: Document 10/12/17 13:45 DCW (Rec: 10/12/17 18:33 DCW [id number]) OP-PT Balance Assessment Standing Balance Standing Balance Comments Double leg, Eyes open: 1'30.53 Mejia Fall Scale Copyright Permission Roberto JM, Roberto DELGADILLO, Mark SJ. Development of a scale to identify the fall- prone patient. Can J Aging 1989;8;366-7. Catrachita Mejia (2009). Preventing patient falls. (2nd ed). [place]: [place]. PT-OP-E Functional Tests Start: 10/12/17 18:11 Freq: Status: Active Protocol: Document 10/12/17 13:45 DCW (Rec: 10/12/17 18:33 DCW [id number]) Functional Tests 6 Minute Walk Test Distance 365' Device Used 4WW Comments Stopped test at 3 min PT-OP-M Strength Start: 10/12/17 18:11 Freq: Status: Active Protocol: Document 10/12/17 13:45 DCW (Rec: 10/12/17 18:33 DCW [id number]) Hip Strength Hip Manual Muscle Testing Right Flexion (L2) 4+ Good+ Abduction 5 Normal Adduction 5 Normal Left Flexion (L2) 4+ Good+ Abduction 5 Normal Adduction 5 Normal Knee Strength Knee Manual Muscle Testing Right Flexion (S2) 4+ Good+ Extension (L3) 5 Normal Left Flexion (S2) 4+ Good+ Extension (L3) 5 Normal Ankle/Foot Strength Ankle and Foot Manual Muscle Testing Right Dorsiflexion (L4) 2- Poor- Plantarflexion (S1) 3 Fair Left Dorsiflexion (L4) 4+ Good+ Plantarflexion (S1) 5 Normal PT-OP-Q Treatments Start: 09/28/17 15:21 Freq: Status: Active Protocol: Document 12/03/17 11:15 DCW (Rec: 12/03/17 12:00 DCW [id number]) Gym Equipment Shuttle Recovery Bilateral Heel Raises Resistance 100# Shuttle Recovery Platform Stable Reps/Time x60 Unilateral Squats Resistance 75# Shuttle Recovery Platform Stable Reps/Time x20 Bilateral Squats Resistance 125# Shuttle Recovery Platform Stable Reps/Time x30 Gait Training Gait Activity 3 Device Used 4WW Level of Assistance SBA Distance/Duration 580' Treatment Focus Increased gait distance/ tolerance Comments v/c for proper breathing, joan Neuro Re-Education Treatment Balance Activities 4 Details Side-stepping /c hurdles/foam in // bars 3 Details Hurdles/Foam in // bars Equipment Hurdles, Foam, // bars, 5# ankle weights PT-OP-T Assessment and Plan Start: 09/28/17 15:21 Freq: Status: Active Protocol: Document 12/03/17 11:15 DCW (Rec: 12/03/17 12:00 DCW [id number]) Physical Therapy Assessment Impairments Impairments Activity Tolerance Balance Functional Activities Functional Mobility Gait ROM Strength Goals Six Impairment Static Standing Balance Short Term Goal (STG) Pt to hold double leg balance with eyes open on a firm surface for 60 seconds STG Duration Met Chcf Goal (LTG) Pt to stand independently for 2 minutes LTG Duration 12/15/17 Five Impairment Gait tolerance Chcf Goal (LTG) Pt to tolerate 1000' ambulation without rest using 4WW LTG Duration 12/15/17 Four Impairment Foot slap Short Term Goal (STG) Pt to regularly wear R AFO to limit foot drop and help normalize gait pattern STG Duration Goal Met Three Impairment Transfers Short Term Goal (STG) Pt to transfer independently from mat<->w/c with no assistive devices STG Duration Met Two Impairment Ankle weakness [facility]cf Goal (LTG) Pt to display 2/5 MMT in R DF, 4/5 MMT in R PF, and 4+/5 MMT in all other bilateral ankle movements LTG Duration 12/15/17 One Impairment Activity tolerance Boring Mill Operator Goal (LTG) Pt to tolerate activity up to 15 minutes without a break LTG Duration 12/15/17 Progress Towards Goals Progress Towards Goals Progressing Toward Goals Slow Progress due to Activity Tolerance Slow Progress due to Medical Issues Assessment Summary Assessment Pt struggled more today than usual, fatigued more quickly and required extended rest breaks. Physical Therapy Plan Frequency and Duration Frequency of Treatment 2x/Week Duration of Treatment 12 weeks Plan of Care Start Date 10/12/17 Plan of Care End Date 01/03/18 Therapeutic Interventions Therapeutic Interventions Aquatic Therapy Balance Training Gait Training Home Exercise Program Manual Therapy Neuromuscular Re-education Soft Tissue Mobilization Therapeutic Activities Therapeutic Exercises Next Visit Focus/Plan Next Note Type Treatment Note Next Visit Plan Increased activity tolerance and balance training.
--- NOTE | 2017-12-07 11:12 | PT.OTN ---
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 with return to pre-existing conscious level, subsequent encounter (12/07/17) History of falling (12/07/17) Physical Therapy Treatment Note PT-OP-A Visit Information Start: 09/28/17 15:21 Freq: Status: Active Protocol: Document 12/07/17 10:30 DCW (Rec: 12/07/17 11:11 DCW [id number]) Out-Patient Physical Therapy Visit Information Visit Information Visit Type Treatment Note Visit Start Time 10:30 Visit Stop Time 11:15 Total Visit Minutes 45 Visit Number 33 Number of MAKE UP OPERATOR Visits 0 Evaluation Information Evaluation Date 07/27/17 PT-OP-B Current Condition Start: 09/28/17 15:21 Freq: Status: Active Protocol: Document 10/12/17 13:45 DCW (Rec: 10/12/17 18:33 DCW [id number]) Current Condition History of Current Condition Onset Date 02/05/17 History of Current Condition See Pt's initial evaluation in Therapy Source Current Functional Impairments (Reported) Functional Limitations- Mobility/Gait Transfers:W/C<->Mat Stand- pivot: Independent PT-OP-C Subjective Start: 09/28/17 15:21 Freq: Status: Active Protocol: Document 12/07/17 10:30 DCW (Rec: 12/07/17 11:11 DCW [id number]) OP-PT Subjective Patient Comments Patient Comments Pt notes that his low back has been hurting today for some reason, but he doesn't know why. PT-OP-D Balance Start: 10/12/17 18:11 Freq: Status: Active Protocol: Document 10/12/17 13:45 DCW (Rec: 10/12/17 18:33 DCW [id number]) OP-PT Balance Assessment Standing Balance Standing Balance Comments Double leg, Eyes open: 1'30.53 Mejia Fall Scale Copyright Permission Roberto KELLY, Roberto RM, Mark SJ. Development of a scale to identify the fall- prone patient. Can J Aging 1989;8;366-7. Catrachita Mejia (2009). Preventing patient falls. (2nd ed). [place]: Marquis. PT-OP-E Functional Tests Start: 10/12/17 18:11 Freq: Status: Active Protocol: Document 10/12/17 13:45 DCW (Rec: 10/12/17 18:33 DCW [id number]) Functional Tests 6 Minute Walk Test Distance 365' Device Used 4WW Comments Stopped test at 3 min PT-OP-M Strength Start: 10/12/17 18:11 Freq: Status: Active Protocol: Document 10/12/17 13:45 DCW (Rec: 10/12/17 18:33 DCW [id number]) Hip Strength Hip Manual Muscle Testing Right Flexion (L2) 4+ Good+ Abduction 5 Normal Adduction 5 Normal Left Flexion (L2) 4+ Good+ Abduction 5 Normal Adduction 5 Normal Knee Strength Knee Manual Muscle Testing Right Flexion (S2) 4+ Good+ Extension (L3) 5 Normal Left Flexion (S2) 4+ Good+ Extension (L3) 5 Normal Ankle/Foot Strength Ankle and Foot Manual Muscle Testing Right Dorsiflexion (L4) 2- Poor- Plantarflexion (S1) 3 Fair Left Dorsiflexion (L4) 4+ Good+ Plantarflexion (S1) 5 Normal PT-OP-Q Treatments Start: 09/28/17 15:21 Freq: Status: Active Protocol: Document 12/07/17 10:30 DCW (Rec: 12/07/17 11:11 DCW [id number]) Gym Equipment Shuttle Recovery Bilateral Heel Raises Resistance 100# Shuttle Recovery Platform Stable Reps/Time x60 Unilateral Squats Resistance 75# Shuttle Recovery Platform Stable Reps/Time x20 Bilateral Squats Resistance 125# Shuttle Recovery Platform Stable Reps/Time x30 Shuttle Balance 1 Details Yellow - Wide WILIAN Gait Training Gait Activity 3 Device Used 4WW Level of Assistance SBA Distance/Duration 750' Treatment Focus Increased gait distance/ tolerance Comments v/c for proper breathing, joan PT-OP-T Assessment and Plan Start: 09/28/17 15:21 Freq: Status: Active Protocol: Document 12/07/17 10:30 DCW (Rec: 12/07/17 11:11 DCW [id number]) Physical Therapy Assessment Impairments Impairments Activity Tolerance Balance Functional Activities Functional Mobility Gait ROM Strength Goals Six Impairment Static Standing Balance Short Term Goal (STG) Pt to hold double leg balance with eyes open on a firm surface for 60 seconds STG Duration Met [facility] Goal (LTG) Pt to stand independently for 2 minutes LTG Duration 12/15/17 Five Impairment Gait tolerance Dry Cell Assembly Supervisor Goal (LTG) Pt to tolerate 1000' ambulation without rest using 4WW LTG Duration 12/15/17 Four Impairment Foot slap Short Term Goal (STG) Pt to regularly wear R AFO to limit foot drop and help normalize gait pattern STG Duration Goal Met Three Impairment Transfers Short Term Goal (STG) Pt to transfer independently from mat<->w/c with no assistive devices STG Duration Met Two Impairment Ankle weakness Dry Cell Assembly Supervisor Goal (LTG) Pt to display 2/5 MMT in R DF, 4/5 MMT in R PF, and 4+/5 MMT in all other bilateral ankle movements LTG Duration 12/15/17 One Impairment Activity tolerance [facility] Goal (LTG) Pt to tolerate activity up to 15 minutes without a break LTG Duration 12/15/17 Progress Towards Goals Progress Towards Goals Progressing Toward Goals Slow Progress due to Activity Tolerance Slow Progress due to Medical Issues Assessment Summary Assessment Pt overall did well, although he needed to take a few extra breaks due to his back pain, Physical Therapy Plan Frequency and Duration Frequency of Treatment 2x/Week Duration of Treatment 12 weeks Plan of Care Start Date 10/12/17 Plan of Care End Date 01/03/18 Therapeutic Interventions Therapeutic Interventions Aquatic Therapy Balance Training Gait Training Home Exercise Program Manual Therapy Neuromuscular Re-education Soft Tissue Mobilization Therapeutic Activities Therapeutic Exercises Next Visit Focus/Plan Next Note Type Treatment Note Next Visit Plan Increased activity tolerance and balance training.
--- NOTE | 2017-12-17 11:16 | PT.OTN ---
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 greater than 24 hours with return to pre-existing conscious level, subsequent encounter (12/17/17) History of falling (12/17/17) Physical Therapy Treatment Note PT-OP-A Visit Information Start: 09/28/17 15:21 Freq: Status: Active Protocol: Document 12/17/17 10:30 DCW (Rec: 12/17/17 11:16 DCW [id number]) Out-Patient Physical Therapy Visit Information Visit Information Visit Type Treatment Note Visit Start Time 10:30 Visit Stop Time 11:15 Total Visit Minutes 45 Visit Number 34 Number of SPRAY GUN OPERATOR Visits 0 Evaluation Information Evaluation Date 07/27/17 PT-OP-B Current Condition Start: 09/28/17 15:21 Freq: Status: Active Protocol: Document 10/12/17 13:45 DCW (Rec: 10/12/17 18:33 DCW [id number]) Current Condition History of Current Condition Onset Date 02/05/17 History of Current Condition See Pt's initial evaluation in Therapy Source Current Functional Impairments (Reported) Functional Limitations- Mobility/Gait Transfers:W/C<->Mat Stand- pivot: Independent PT-OP-C Subjective Start: 09/28/17 15:21 Freq: Status: Active Protocol: Document 12/17/17 10:30 DCW (Rec: 12/17/17 11:16 DCW [id number]) OP-PT Subjective Patient Comments Patient Comments Pt reports he just came from an appointment with his oxygen therapy teacher, and was there for an hour and a half, so he is pretty fatigued today. PT-OP-D Balance Start: 10/12/17 18:11 Freq: Status: Active Protocol: Document 10/12/17 13:45 DCW (Rec: 10/12/17 18:33 DCW [id number]) OP-PT Balance Assessment Standing Balance Standing Balance Comments Double leg, Eyes open: 1'30.53 Mejia Fall Scale Copyright Permission Roberto KELLY, Roberto RM, Mark SJ. Development of a scale to identify the fall- prone patient. Can J Aging 1989;8;366-7. Catrachita Mejia (2009). Preventing patient falls. (2nd ed). [place]: Marquis. PT-OP-E Functional Tests Start: 10/12/17 18:11 Freq: Status: Active Protocol: Document 10/12/17 13:45 DCW (Rec: 10/12/17 18:33 DCW [id number]) Functional Tests 6 Minute Walk Test Distance 365' Device Used 4WW Comments Stopped test at 3 min PT-OP-M Strength Start: 10/12/17 18:11 Freq: Status: Active Protocol: Document 10/12/17 13:45 DCW (Rec: 10/12/17 18:33 DCW [id number]) Hip Strength Hip Manual Muscle Testing Right Flexion (L2) 4+ Good+ Abduction 5 Normal Adduction 5 Normal Left Flexion (L2) 4+ Good+ Abduction 5 Normal Adduction 5 Normal Knee Strength Knee Manual Muscle Testing Right Flexion (S2) 4+ Good+ Extension (L3) 5 Normal Left Flexion (S2) 4+ Good+ Extension (L3) 5 Normal Ankle/Foot Strength Ankle and Foot Manual Muscle Testing Right Dorsiflexion (L4) 2- Poor- Plantarflexion (S1) 3 Fair Left Dorsiflexion (L4) 4+ Good+ Plantarflexion (S1) 5 Normal PT-OP-Q Treatments Start: 09/28/17 15:21 Freq: Status: Active Protocol: Document 12/17/17 10:30 DCW (Rec: 12/17/17 11:16 DCW [id number]) Gym Equipment Shuttle Recovery Bilateral Heel Raises Resistance 100# Shuttle Recovery Platform Stable Reps/Time x60 Unilateral Squats Resistance 75# Shuttle Recovery Platform Stable Reps/Time x20 Bilateral Squats Resistance 125# Shuttle Recovery Platform Stable Reps/Time x30 Gait Training Gait Activity 3 Device Used 4WW Level of Assistance SBA Distance/Duration 580' Treatment Focus Increased gait distance/ tolerance Comments v/c for proper breathing, joan Neuro Re-Education Treatment Balance Activities 4 Details Side-stepping /c hurdles/foam in // bars 3 Details Hurdles/Foam in // bars Equipment Hurdles, Foam, // bars, 5# ankle weights PT-OP-T Assessment and Plan Start: 09/28/17 15:21 Freq: Status: Active Protocol: Document 12/17/17 10:30 DCW (Rec: 12/17/17 11:16 DCW [id number]) Physical Therapy Assessment Impairments Impairments Activity Tolerance Balance Functional Activities Functional Mobility Gait ROM Strength Goals Six Impairment Static Standing Balance Short Term Goal (STG) Pt to hold double leg balance with eyes open on a firm surface for 60 seconds STG Duration Met Home Lighting Adviser Goal (LTG) Pt to stand independently for 2 minutes LTG Duration 12/15/17 Five Impairment Gait tolerance Alf Goal (LTG) Pt to tolerate 1000' ambulation without rest using 4WW LTG Duration 12/15/17 Four Impairment Foot slap Short Term Goal (STG) Pt to regularly wear R AFO to limit foot drop and help normalize gait pattern STG Duration Goal Met Three Impairment Transfers Short Term Goal (STG) Pt to transfer independently from mat<->w/c with no assistive devices STG Duration Met Two Impairment Ankle weakness Home Lighting Adviser Goal (LTG) Pt to display 2/5 MMT in R DF, 4/5 MMT in R PF, and 4+/5 MMT in all other bilateral ankle movements LTG Duration 12/15/17 One Impairment Activity tolerance Home Lighting Adviser Goal (LTG) Pt to tolerate activity up to 15 minutes without a break LTG Duration 12/15/17 Progress Towards Goals Progress Towards Goals Progressing Toward Goals Slow Progress due to Activity Tolerance Slow Progress due to Medical Issues Assessment Summary Assessment Pt did struggle today secondary to fatigue from a long appointment with his oxygen therapy teacher prior to his PT appointment, required longer rest breaks. Physical Therapy Plan Frequency and Duration Frequency of Treatment 2x/Week Duration of Treatment 12 weeks Plan of Care Start Date 10/12/17 Plan of Care End Date 01/03/18 Therapeutic Interventions Therapeutic Interventions Aquatic Therapy Balance Training Gait Training Home Exercise Program Manual Therapy Neuromuscular Re-education Soft Tissue Mobilization Therapeutic Activities Therapeutic Exercises Next Visit Focus/Plan Next Note Type Treatment Note Next Visit Plan Increased activity tolerance and balance training.
--- NOTE | 2017-12-21 11:14 | PT.OTN ---
Current Diagnoses Foot drop, right foot (12/21/17) Muscle weakness (generalized) (12/21/17) Unsteadiness on feet (12/21/17) Unspecified abnormalities of gait and mobility (12/21/17) Traumatic subdural hemorrhage with loss of consciousness greater than 24 hours with return to pre-existing conscious level, subsequent encounter (12/21/17) History of falling (12/21/17) Physical Therapy Treatment Note PT-OP-A Visit Information Start: 09/28/17 15:21 Freq: Status: Active Protocol: Document 12/21/17 10:30 DCW (Rec: 12/21/17 11:12 DCW [id number]) Out-Patient Physical Therapy Visit Information Visit Information Visit Type Treatment Note Visit Start Time 10:30 Visit Stop Time 11:15 Total Visit Minutes 45 Visit Number 35 Number of ENTRY LEVEL LAB TECHNICIAN Visits 0 Evaluation Information Evaluation Date 07/27/17 PT-OP-B Current Condition Start: 09/28/17 15:21 Freq: Status: Active Protocol: Document 10/12/17 13:45 DCW (Rec: 10/12/17 18:33 DCW [id number]) Current Condition History of Current Condition Onset Date 02/05/17 History of Current Condition See Pt's initial evaluation in Therapy Source Current Functional Impairments (Reported) Functional Limitations- Mobility/Gait Transfers:W/C<->Mat Stand- pivot: Independent PT-OP-C Subjective Start: 09/28/17 15:21 Freq: Status: Active Protocol: Document 12/21/17 10:30 DCW (Rec: 12/21/17 11:12 DCW [id number]) OP-PT Subjective Patient Comments Patient Comments Pt arrived today with a new 4WW from [employer], which is wider and taller than his previous walker. PT-OP-D Balance Start: 10/12/17 18:11 Freq: Status: Active Protocol: Document 10/12/17 13:45 DCW (Rec: 10/12/17 18:33 DCW [id number]) OP-PT Balance Assessment Standing Balance Standing Balance Comments Double leg, Eyes open: 1'30.53 Mejia Fall Scale Copyright Permission Roberto KELLY, Roberto RM, Mark SJ. Development of a scale to identify the fall- prone patient. Can J Aging 1989;8;366-7. Catrachita Mejia (2009). Preventing patient falls. (2nd ed). [place]: Marquis. PT-OP-E Functional Tests Start: 10/12/17 18:11 Freq: Status: Active Protocol: Document 10/12/17 13:45 DCW (Rec: 10/12/17 18:33 DCW [id number]) Functional Tests 6 Minute Walk Test Distance 365' Device Used 4WW Comments Stopped test at 3 min PT-OP-M Strength Start: 10/12/17 18:11 Freq: Status: Active Protocol: Document 10/12/17 13:45 DCW (Rec: 10/12/17 18:33 DCW [id number]) Hip Strength Hip Manual Muscle Testing Right Flexion (L2) 4+ Good+ Abduction 5 Normal Adduction 5 Normal Left Flexion (L2) 4+ Good+ Abduction 5 Normal Adduction 5 Normal Knee Strength Knee Manual Muscle Testing Right Flexion (S2) 4+ Good+ Extension (L3) 5 Normal Left Flexion (S2) 4+ Good+ Extension (L3) 5 Normal Ankle/Foot Strength Ankle and Foot Manual Muscle Testing Right Dorsiflexion (L4) 2- Poor- Plantarflexion (S1) 3 Fair Left Dorsiflexion (L4) 4+ Good+ Plantarflexion (S1) 5 Normal PT-OP-Q Treatments Start: 09/28/17 15:21 Freq: Status: Active Protocol: Document 12/21/17 10:30 DCW (Rec: 12/21/17 11:12 DCW [id number]) Gym Equipment Shuttle Recovery Bilateral Squats Resistance 150# Shuttle Recovery Platform Stable Reps/Time x30 Shuttle Balance 1 Details Yellow - Wide WILIAN Gait Training Gait Activity 3 Device Used 4WW Level of Assistance SBA Distance/Duration 750' Treatment Focus Increased gait distance/ tolerance Comments v/c for proper breathing, joan Neuro Re-Education Treatment Balance Activities 4 Details Side-stepping /c hurdles/foam in // bars 3 Details Hurdles/Foam in // bars Equipment Hurdles, Foam, // bars, 5# ankle weights PT-OP-T Assessment and Plan Start: 09/28/17 15:21 Freq: Status: Active Protocol: Document 12/21/17 10:30 DCW (Rec: 12/21/17 11:12 DCW [id number]) Physical Therapy Assessment Impairments Impairments Activity Tolerance Balance Functional Activities Functional Mobility Gait ROM Strength Goals Six Impairment Static Standing Balance Short Term Goal (STG) Pt to hold double leg balance with eyes open on a firm surface for 60 seconds STG Duration Met [facility] Goal (LTG) Pt to stand independently for 2 minutes LTG Duration 12/15/17 Five Impairment Gait tolerance Mail Rider Goal (LTG) Pt to tolerate 1000' ambulation without rest using 4WW LTG Duration 12/15/17 Four Impairment Foot slap Short Term Goal (STG) Pt to regularly wear R AFO to limit foot drop and help normalize gait pattern STG Duration Goal Met Three Impairment Transfers Short Term Goal (STG) Pt to transfer independently from mat<->w/c with no assistive devices STG Duration Met Two Impairment Ankle weakness [facility] Goal (LTG) Pt to display 2/5 MMT in R DF, 4/5 MMT in R PF, and 4+/5 MMT in all other bilateral ankle movements LTG Duration 12/15/17 One Impairment Activity tolerance Mail Rider Goal (LTG) Pt to tolerate activity up to 15 minutes without a break LTG Duration 12/15/17 Progress Towards Goals Progress Towards Goals Progressing Toward Goals Slow Progress due to Activity Tolerance Slow Progress due to Medical Issues Assessment Summary Assessment Pt did very well today, likely his best day so far. Able to perform all activities with better quality of movement and with less fatigue and fewer rest breaks. Physical Therapy Plan Frequency and Duration Frequency of Treatment 2x/Week Duration of Treatment 12 weeks Plan of Care Start Date 10/12/17 Plan of Care End Date 01/03/18 Therapeutic Interventions Therapeutic Interventions Aquatic Therapy Balance Training Gait Training Home Exercise Program Manual Therapy Neuromuscular Re-education Soft Tissue Mobilization Therapeutic Activities Therapeutic Exercises Next Visit Focus/Plan Next Note Type Treatment Note Next Visit Plan Increased activity tolerance and balance training.
--- NOTE | 2017-12-24 11:16 | PT.OTN ---
Current Diagnoses Foot drop, right foot (12/24/17) Muscle weakness (generalized) (12/24/17) Unsteadiness on feet (12/24/17) Unspecified abnormalities of gait and mobility (12/24/17) Traumatic subdural hemorrhage with loss of consciousness greater than 24 hours with return to pre-existing conscious level, subsequent encounter (12/24/17) History of falling (12/24/17) Physical Therapy Treatment Note PT-OP-A Visit Information Start: 09/28/17 15:21 Freq: Status: Active Protocol: Document 12/24/17 10:30 DCW (Rec: 12/24/17 11:16 DCW [id number]) Out-Patient Physical Therapy Visit Information Visit Information Visit Type Treatment Note Visit Start Time 10:30 Visit Stop Time 11:15 Total Visit Minutes 45 Visit Number 36 Number of SCRAPER TENDER Visits 0 Evaluation Information Evaluation Date 07/27/17 PT-OP-B Current Condition Start: 09/28/17 15:21 Freq: Status: Active Protocol: Document 10/12/17 13:45 DCW (Rec: 10/12/17 18:33 DCW [id number]) Current Condition History of Current Condition Onset Date 02/05/17 History of Current Condition See Pt's initial evaluation in Therapy Source Current Functional Impairments (Reported) Functional Limitations- Mobility/Gait Transfers:W/C<->Mat Stand- pivot: Independent PT-OP-C Subjective Start: 09/28/17 15:21 Freq: Status: Active Protocol: Document 12/24/17 10:30 DCW (Rec: 12/24/17 11:16 DCW [id number]) OP-PT Subjective Patient Comments Patient Comments Pt and report today that they felt the new 4WW was too easy, and it wasn't working him hard enough, so they returned it. PT-OP-D Balance Start: 10/12/17 18:11 Freq: Status: Active Protocol: Document 10/12/17 13:45 DCW (Rec: 10/12/17 18:33 DCW [id number]) OP-PT Balance Assessment Standing Balance Standing Balance Comments Double leg, Eyes open: 1'30.53 Mejia Fall Scale Copyright Permission Roberto JM, Roberto RM, Mark SJ. Development of a scale to identify the fall- prone patient. Can J Aging 1989;8;366-7. Catrachita Mejia (2009). Preventing patient falls. (2nd ed). [place]: Marquis. PT-OP-E Functional Tests Start: 10/12/17 18:11 Freq: Status: Active Protocol: Document 10/12/17 13:45 DCW (Rec: 10/12/17 18:33 DCW [id number]) Functional Tests 6 Minute Walk Test Distance 365' Device Used 4WW Comments Stopped test at 3 min PT-OP-M Strength Start: 10/12/17 18:11 Freq: Status: Active Protocol: Document 10/12/17 13:45 DCW (Rec: 10/12/17 18:33 DCW [id number]) Hip Strength Hip Manual Muscle Testing Right Flexion (L2) 4+ Good+ Abduction 5 Normal Adduction 5 Normal Left Flexion (L2) 4+ Good+ Abduction 5 Normal Adduction 5 Normal Knee Strength Knee Manual Muscle Testing Right Flexion (S2) 4+ Good+ Extension (L3) 5 Normal Left Flexion (S2) 4+ Good+ Extension (L3) 5 Normal Ankle/Foot Strength Ankle and Foot Manual Muscle Testing Right Dorsiflexion (L4) 2- Poor- Plantarflexion (S1) 3 Fair Left Dorsiflexion (L4) 4+ Good+ Plantarflexion (S1) 5 Normal PT-OP-Q Treatments Start: 09/28/17 15:21 Freq: Status: Active Protocol: Document 12/24/17 10:30 DCW (Rec: 12/24/17 11:16 DCW [id number]) Gym Equipment Shuttle Recovery Bilateral Heel Raises Resistance 100# Shuttle Recovery Platform Stable Reps/Time x60 Unilateral Squats Resistance 75# Shuttle Recovery Platform Stable Reps/Time x20 Bilateral Squats Resistance 125# Shuttle Recovery Platform Stable Reps/Time x30 Gait Training Gait Activity 3 Device Used 4WW Level of Assistance SBA Distance/Duration 250' Treatment Focus Increased gait distance/ tolerance Comments v/c for proper breathing, joan 1 Device Used SPC Level of Assistance Min Ax1 Surface Level Distance/Duration 45' x2 Neuro Re-Education Treatment Balance Activities 4 Details Side-stepping /c hurdles/foam in // bars 3 Details Hurdles/Foam in // bars Equipment Hurdles, Foam, // bars, 5# ankle weights PT-OP-T Assessment and Plan Start: 09/28/17 15:21 Freq: Status: Active Protocol: Document 12/24/17 10:30 DCW (Rec: 12/24/17 11:16 DCW [id number]) Physical Therapy Assessment Impairments Impairments Activity Tolerance Balance Functional Activities Functional Mobility Gait ROM Strength Goals Six Impairment Static Standing Balance Short Term Goal (STG) Pt to hold double leg balance with eyes open on a firm surface for 60 seconds STG Duration Met [facility] Psychiatrist Goal (LTG) Pt to stand independently for 2 minutes LTG Duration 12/15/17 Five Impairment Gait tolerance [facility] Goal (LTG) Pt to tolerate 1000' ambulation without rest using 4WW LTG Duration 12/15/17 Four Impairment Foot slap Short Term Goal (STG) Pt to regularly wear R AFO to limit foot drop and help normalize gait pattern STG Duration Goal Met Three Impairment Transfers Short Term Goal (STG) Pt to transfer independently from mat<->w/c with no assistive devices STG Duration Met Two Impairment Ankle weakness [facility] Goal (LTG) Pt to display 2/5 MMT in R DF, 4/5 MMT in R PF, and 4+/5 MMT in all other bilateral ankle movements LTG Duration 12/15/17 One Impairment Activity tolerance [facility] Goal (LTG) Pt to tolerate activity up to 15 minutes without a break LTG Duration 12/15/17 Progress Towards Goals Progress Towards Goals Progressing Toward Goals Slow Progress due to Activity Tolerance Slow Progress due to Medical Issues Assessment Summary Assessment Therapist discussed with pt and his that an easier 4WW is not necessarily a step backward, it just fits him better and allows him to stand upright more comfortably. They expressed an agreeable attitude to going back to the larger 4WW Physical Therapy Plan Frequency and Duration Frequency of Treatment 2x/Week Duration of Treatment 12 weeks Plan of Care Start Date 10/12/17 Plan of Care End Date 01/03/18 Therapeutic Interventions Therapeutic Interventions Aquatic Therapy Balance Training Gait Training Home Exercise Program Manual Therapy Neuromuscular Re-education Soft Tissue Mobilization Therapeutic Activities Therapeutic Exercises Next Visit Focus/Plan Next Note Type Treatment Note Next Visit Plan Increased activity tolerance and balance training.
--- NOTE | 2017-12-28 11:13 | PT.OTN ---
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 with return to pre-existing conscious level, subsequent encounter (12/28/17) History of falling (12/28/17) Physical Therapy Treatment Note PT-OP-A Visit Information Start: 09/28/17 15:21 Freq: Status: Active Protocol: Document 12/28/17 10:30 DCW (Rec: 12/28/17 11:02 DCW [id number]) Out-Patient Physical Therapy Visit Information Visit Information Visit Type Treatment Note Visit Start Time 10:30 Visit Stop Time 11:15 Total Visit Minutes 45 Visit Number 37 Number of COMPUTER GAME TESTER Visits 0 Evaluation Information Evaluation Date 07/27/17 PT-OP-B Current Condition Start: 09/28/17 15:21 Freq: Status: Active Protocol: Document 10/12/17 13:45 DCW (Rec: 10/12/17 18:33 DCW [id number]) Current Condition History of Current Condition Onset Date 02/05/17 History of Current Condition See Pt's initial evaluation in Therapy Source Current Functional Impairments (Reported) Functional Limitations- Mobility/Gait Transfers:W/C<->Mat Stand- pivot: Independent PT-OP-C Subjective Start: 09/28/17 15:21 Freq: Status: Active Protocol: Document 12/28/17 10:30 DCW (Rec: 12/28/17 11:02 DCW [id number]) OP-PT Subjective Patient Comments Patient Comments Pt reports that he feels like it'll take a little bit to warm up today. PT-OP-D Balance Start: 10/12/17 18:11 Freq: Status: Active Protocol: Document 10/12/17 13:45 DCW (Rec: 10/12/17 18:33 DCW [id number]) OP-PT Balance Assessment Standing Balance Standing Balance Comments Double leg, Eyes open: 1'30.53 Mejia Fall Scale Copyright Permission Roberto KELLY, Roberto RM, Mark SJ. Development of a scale to identify the fall- prone patient. Can J Aging 1989;8;366-7. Catrachita Mejia (2009). Preventing patient falls. (2nd ed). [place]: Marquis. PT-OP-E Functional Tests Start: 10/12/17 18:11 Freq: Status: Active Protocol: Document 10/12/17 13:45 DCW (Rec: 10/12/17 18:33 DCW [id number]) Functional Tests 6 Minute Walk Test Distance 365' Device Used 4WW Comments Stopped test at 3 min PT-OP-M Strength Start: 10/12/17 18:11 Freq: Status: Active Protocol: Document 10/12/17 13:45 DCW (Rec: 10/12/17 18:33 DCW [id number]) Hip Strength Hip Manual Muscle Testing Right Flexion (L2) 4+ Good+ Abduction 5 Normal Adduction 5 Normal Left Flexion (L2) 4+ Good+ Abduction 5 Normal Adduction 5 Normal Knee Strength Knee Manual Muscle Testing Right Flexion (S2) 4+ Good+ Extension (L3) 5 Normal Left Flexion (S2) 4+ Good+ Extension (L3) 5 Normal Ankle/Foot Strength Ankle and Foot Manual Muscle Testing Right Dorsiflexion (L4) 2- Poor- Plantarflexion (S1) 3 Fair Left Dorsiflexion (L4) 4+ Good+ Plantarflexion (S1) 5 Normal PT-OP-Q Treatments Start: 09/28/17 15:21 Freq: Status: Active Protocol: Document 12/28/17 10:30 DCW (Rec: 12/28/17 11:02 DCW [id number]) Gym Equipment Shuttle Recovery Bilateral Heel Raises Resistance 100# Shuttle Recovery Platform Stable Reps/Time x60 Unilateral Squats Resistance 75# Shuttle Recovery Platform Stable Reps/Time x20 Bilateral Squats Resistance 150# Shuttle Recovery Platform Stable Reps/Time x30 Shuttle Balance 1 Details Yellow - Wide WILIAN Gait Training Gait Activity 3 Device Used 4WW Level of Assistance SBA Distance/Duration 750' Treatment Focus Increased gait distance/ tolerance Comments v/c for proper breathing, joan Neuro Re-Education Treatment Balance Activities 4 Details Side-stepping /c hurdles/foam in // bars Comments 4# ankle weights 3 Details Hurdles/Foam in // bars Equipment Hurdles, Foam, // bars, 5# ankle weights Comments 4# ankle weights PT-OP-T Assessment and Plan Start: 09/28/17 15:21 Freq: Status: Active Protocol: Document 12/28/17 10:30 DCW (Rec: 12/28/17 11:13 DCW [id number]) Physical Therapy Assessment Impairments Impairments Activity Tolerance Balance Functional Activities Functional Mobility Gait ROM Strength Goals Six Impairment Static Standing Balance Short Term Goal (STG) Pt to hold double leg balance with eyes open on a firm surface for 60 seconds STG Duration Met Personal Insurance Advisor Goal (LTG) Pt to stand independently for 2 minutes LTG Duration 12/15/17 Five Impairment Gait tolerance Mcc Goal (LTG) Pt to tolerate 1000' ambulation without rest using 4WW LTG Duration 12/15/17 Four Impairment Foot slap Short Term Goal (STG) Pt to regularly wear R AFO to limit foot drop and help normalize gait pattern STG Duration Goal Met Three Impairment Transfers Short Term Goal (STG) Pt to transfer independently from mat<->w/c with no assistive devices STG Duration Met Two Impairment Ankle weakness Personal Insurance Advisor Goal (LTG) Pt to display 2/5 MMT in R DF, 4/5 MMT in R PF, and 4+/5 MMT in all other bilateral ankle movements LTG Duration 12/15/17 One Impairment Activity tolerance Mcc Goal (LTG) Pt to tolerate activity up to 15 minutes without a break LTG Duration 12/15/17 Progress Towards Goals Progress Towards Goals Progressing Toward Goals Slow Progress due to Activity Tolerance Slow Progress due to Medical Issues Assessment Summary Assessment Pt did well today with added ankle weights for some of his activities, and fewer allowed rest breaks. Physical Therapy Plan Frequency and Duration Frequency of Treatment 2x/Week Duration of Treatment 12 weeks Plan of Care Start Date 10/12/17 Plan of Care End Date 01/03/18 Therapeutic Interventions Therapeutic Interventions Aquatic Therapy Balance Training Gait Training Home Exercise Program Manual Therapy Neuromuscular Re-education Soft Tissue Mobilization Therapeutic Activities Therapeutic Exercises Next Visit Focus/Plan Next Note Type Progress Note Next Visit Plan Increased activity tolerance and balance training.
--- NOTE | 2018-01-05 15:16 | PT.OTN ---
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 with return to pre-existing conscious level, subsequent encounter (01/05/18) History of falling (01/05/18) Physical Therapy Treatment Note PT-OP-A Visit Information Start: 09/28/17 15:21 Freq: Status: Active Protocol: Document 01/05/18 14:30 DCW (Rec: 01/05/18 15:16 DCW [id number]) Out-Patient Physical Therapy Visit Information Visit Information Visit Type Progress Note Visit Start Time 14:30 Visit Stop Time 15:15 Total Visit Minutes 45 Visit Number 38 Number of PORCELAIN BUILDUP ASSISTANT Visits 0 Evaluation Information Evaluation Date 07/27/17 PT-OP-B Current Condition Start: 09/28/17 15:21 Freq: Status: Active Protocol: Document 10/12/17 13:45 DCW (Rec: 10/12/17 18:33 DCW [id number]) Current Condition History of Current Condition Onset Date 02/05/17 History of Current Condition See Pt's initial evaluation in Therapy Source Current Functional Impairments (Reported) Functional Limitations- Mobility/Gait Transfers:W/C<->Mat Stand- pivot: Independent PT-OP-C Subjective Start: 09/28/17 15:21 Freq: Status: Active Protocol: Document 01/05/18 14:30 DCW (Rec: 01/05/18 15:16 DCW [id number]) OP-PT Subjective Patient Comments Patient Comments Pt is fatigued today following an appointment with his PCP this morning. PT-OP-D Balance Start: 10/12/17 18:11 Freq: Status: Active Protocol: Document 01/05/18 14:30 DCW (Rec: 01/05/18 15:06 DCW [id number]) OP-PT Balance Assessment Standing Balance Standing Balance Comments Double leg, Eyes open: Donis Balance Assessment Evaluation Sitting to Standing Ability Independent w/Hands Unsupported Stance Several Tries, 30 seconds Sitting Unsupported, Feet on Floor Safely- 2 minutes Standing to Sitting Ability Independent, Uncontrolled Transfer Ability Safely, Hand Use Unsupported Stance- Eyes Closed Safely, With Eyes Open Unsupported Stance- Eyes Open Assist to attain, 15 secs Reaching Forward Standing Safely, 2 inches Pick- Up Object From Floor Requires Assistance Look Behind Shoulder - Standing Assist to Prevent Fall Turning 360 Degrees Requires Assistance Unsupported Stance, Alternating Feet on Assist to Prevent Fall Stair Unsupported Tandem Stance Balance Lost- Step/Stand Unilateral Leg Stance Unable,assist to not fall Total Score Donis Total Score (out of 56 points) 16 Donis Impairment Rating 60 to 79% Impaired (Score 12- 22) Roberto Fall Scale Copyright Permission Roberto JM, Roberto RM, Mark SJ. Development of a scale to identify the fall- prone patient. Can J Aging 1989;8;366-7. Catrachita Mejia (2009). Preventing patient falls. (2nd ed). [place]: Marquis. PT-OP-E Functional Tests Start: 10/12/17 18:11 Freq: Status: Active Protocol: Document 01/05/18 14:30 DCW (Rec: 01/05/18 15:06 DCW [id number]) Functional Tests 6 Minute Walk Test Distance 690' Device Used 4WW PT-OP-M Strength Start: 10/12/17 18:11 Freq: Status: Active Protocol: Document 01/05/18 14:30 DCW (Rec: 01/05/18 15:06 DCW [id number]) Hip Strength Hip Manual Muscle Testing Right Flexion (L2) 5 Normal Abduction 5 Normal Adduction 5 Normal Left Flexion (L2) 4+ Good+ Abduction 5 Normal Adduction 5 Normal Knee Strength Knee Manual Muscle Testing Right Flexion (S2) 5 Normal Extension (L3) 5 Normal Left Flexion (S2) 4+ Good+ Extension (L3) 5 Normal Ankle/Foot Strength Ankle and Foot Manual Muscle Testing Right Dorsiflexion (L4) 2- Poor- Plantarflexion (S1) 3+ Fair+ Left Dorsiflexion (L4) 4+ Good+ Plantarflexion (S1) 5 Normal PT-OP-Q Treatments Start: 09/28/17 15:21 Freq: Status: Active Protocol: Document 01/05/18 14:30 DCW (Rec: 01/05/18 15:16 DCW [id number]) Gym Equipment Shuttle Recovery Bilateral Squats Resistance 150# Shuttle Recovery Platform Stable Reps/Time x30 Gait Training Gait Activity 3 Device Used 4WW Level of Assistance SBA Distance/Duration 750' Treatment Focus Increased gait distance/ tolerance Comments v/c for proper breathing, joan Neuro Re-Education Treatment Other Activities 1 Details Standing balance testing, Donis balance test PT-OP-T Assessment and Plan Start: 09/28/17 15:21 Freq: Status: Active Protocol: Document 01/05/18 14:30 DCW (Rec: 01/05/18 15:16 DCW [id number]) Physical Therapy Assessment Impairments Impairments Activity Tolerance Balance Functional Activities Functional Mobility Gait ROM Strength Goals Seven Impairment Donis Jail Goal (LTG) Pt to score 22/56 on Donis Balance scale LTG Duration 02/15/18 Six Impairment Static Standing Balance Short Term Goal (STG) Pt to hold double leg balance with eyes open on a firm surface for 60 seconds STG Duration Met Assignment Editor Goal (LTG) Pt to stand independently for 2 minutes LTG Duration 02/15/18 Five Impairment Gait tolerance Assignment Editor Goal (LTG) Pt to tolerate 1000' ambulation without rest using 4WW LTG Duration 02/15/18 - Improving Four Impairment Foot slap Short Term Goal (STG) Pt to regularly wear R AFO to limit foot drop and help normalize gait pattern STG Duration Goal Met Three Impairment Transfers Short Term Goal (STG) Pt to transfer independently from mat<->w/c with no assistive devices STG Duration Met Two Impairment Ankle weakness Assignment Editor Goal (LTG) Pt to display 2/5 MMT in R DF, 4/5 MMT in R PF, and 4+/5 MMT in all other bilateral ankle movements LTG Duration 02/15/18 - Improving One Impairment Activity tolerance Jail Goal (LTG) Pt to tolerate activity up to 15 minutes without a break LTG Duration 02/15/18 Progress Towards Goals Progress Towards Goals Progressing Toward Goals Slow Progress due to Activity Tolerance Slow Progress due to Medical Issues Assessment Summary Assessment Pt making improvement with activity tolerance, gross strength, and balance. Pt has improved from being unable to stand without assistance to a 16/56 on the Donis Balance scale. Pt has also improve to being able to complete a 6 MWT . 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
--- NOTE | 2018-01-05 15:16 | PT.OPPOC ---
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 with return to pre-existing conscious level, subsequent encounter (01/05/18) History of falling (01/05/18) Provider Visit Care Team Role Provider Type Elver Eubanks MD Attending Provider Physician Family Provider Primary Care Provider Specialty: Internal Medicine Address: [address] [place] [address], [facility] Email: Plan Of Care PT-OP-T Assessment and Plan Start: 09/28/17 15:21 Freq: Status: Active Protocol: Document 01/05/18 14:30 DCW (Rec: 01/05/18 15:16 DCW [id number]) Physical Therapy Assessment Impairments Impairments Activity Tolerance Balance Functional Activities Functional Mobility Gait ROM Strength Goals Seven Impairment Donis Assisted Goal (LTG) Pt to score 22/56 on Donis Balance scale LTG Duration 02/15/18 Six Impairment Static Standing Balance Short Term Goal (STG) Pt to hold double leg balance with eyes open on a firm surface for 60 seconds STG Duration Met Assisted Goal (LTG) Pt to stand independently for 2 minutes LTG Duration 02/15/18 Five Impairment Gait tolerance [place] Goal (LTG) Pt to tolerate 1000' ambulation without rest using 4WW LTG Duration 02/15/18 - Improving Four Impairment Foot slap Short Term Goal (STG) Pt to regularly wear R AFO to limit foot drop and help normalize gait pattern STG Duration Goal Met Three Impairment Transfers Short Term Goal (STG) Pt to transfer independently from mat<->w/c with no assistive devices STG Duration Met Two Impairment Ankle weakness [place] Goal (LTG) Pt to display 2/5 MMT in R DF, 4/5 MMT in R PF, and 4+/5 MMT in all other bilateral ankle movements LTG Duration 02/15/18 - Improving One Impairment Activity tolerance [place] Goal (LTG) Pt to tolerate activity up to 15 minutes without a break LTG Duration 02/15/18 Progress Towards Goals Progress Towards Goals Progressing Toward Goals Slow Progress due to Activity Tolerance Slow Progress due to Medical Issues Assessment Summary Assessment Pt making improvement with activity tolerance, gross strength, and balance. Pt has improved from being unable to stand without assistance to a 16/56 on the Donis Balance scale. Pt has also improve to being able to complete a 6 MWT . 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 Plan of Care Dates Plan of Care Start Date 01/05/18 Plan of Care End Date 03/30/18 Please Sign and Return: I have reviewed this Plan of Care and certify that the skilled therapy services above are required to meet the patient?s needs. Physician Signature Date Printed Name and Credentials Clinical Instructor Signature Printed Name and Credentials
--- NOTE | 2018-01-10 10:28 | PT.OTN ---
Current Diagnoses Foot drop, right foot (01/10/18) Muscle weakness (generalized) (01/10/18) Unsteadiness on feet (01/10/18) Unspecified abnormalities of gait and mobility (01/10/18) Traumatic subdural hemorrhage with loss of consciousness greater than 24 hours with return to pre-existing conscious level, subsequent encounter (01/10/18) History of falling (01/10/18) Physical Therapy Treatment Note PT-OP-A Visit Information Start: 09/28/17 15:21 Freq: Status: Active Protocol: Document 01/10/18 09:45 DCW (Rec: 01/10/18 10:28 DCW [id number]) Out-Patient Physical Therapy Visit Information Visit Information Visit Type Treatment Note Visit Start Time 09:45 Visit Stop Time 10:30 Total Visit Minutes 45 Visit Number 39 Number of ETIQUETTE COACH Visits 0 Evaluation Information Evaluation Date 07/27/17 PT-OP-B Current Condition Start: 09/28/17 15:21 Freq: Status: Active Protocol: Document 10/12/17 13:45 DCW (Rec: 10/12/17 18:33 DCW [id number]) Current Condition History of Current Condition Onset Date 02/05/17 History of Current Condition See Pt's initial evaluation in Therapy Source Current Functional Impairments (Reported) Functional Limitations- Mobility/Gait Transfers:W/C<->Mat Stand- pivot: Independent PT-OP-C Subjective Start: 09/28/17 15:21 Freq: Status: Active Protocol: Document 01/10/18 09:45 DCW (Rec: 01/10/18 10:28 DCW [id number]) OP-PT Subjective Patient Comments Patient Comments Pt complains of a stiff back today, hopes gtting up and walking will help loosen it up . PT-OP-D Balance Start: 10/12/17 18:11 Freq: Status: Active Protocol: Document 01/05/18 14:30 DCW (Rec: 01/05/18 15:06 DCW [id number]) OP-PT Balance Assessment Standing Balance Standing Balance Comments Double leg, Eyes open: 1'24 Donis Balance Assessment Evaluation Sitting to Standing Ability Independent w/Hands Unsupported Stance Several Tries, 30 seconds Sitting Unsupported, Feet on Floor Safely- 2 minutes Standing to Sitting Ability Independent, Uncontrolled Transfer Ability Safely, Hand Use Unsupported Stance- Eyes Closed Safely, With Eyes Open Unsupported Stance- Eyes Open Assist to attain, 15 secs Reaching Forward Standing Safely, 2 inches Pick- Up Object From Floor Requires Assistance Look Behind Shoulder - Standing Assist to Prevent Fall Turning 360 Degrees Requires Assistance Unsupported Stance, Alternating Feet on Assist to Prevent Fall Stair Unsupported Tandem Stance Balance Lost- Step/Stand Unilateral Leg Stance Unable,assist to not fall Total Score Donis Total Score (out of 56 points) 16 Donis Impairment Rating 60 to 79% Impaired (Score 12- 22) Mejia Fall Scale Copyright Permission Roberto KELLY, Roberto RM, Mark SJ. Development of a scale to identify the fall- prone patient. Can J Aging 1989;8;366-7. Catrachita Mejia (2009). Preventing patient falls. (2nd ed). [place]: Marquis. PT-OP-E Functional Tests Start: 10/12/17 18:11 Freq: Status: Active Protocol: Document 01/05/18 14:30 DCW (Rec: 01/05/18 15:06 DCW [id number]) Functional Tests 6 Minute Walk Test Distance 690' Device Used 4WW PT-OP-M Strength Start: 10/12/17 18:11 Freq: Status: Active Protocol: Document 01/05/18 14:30 DCW (Rec: 01/05/18 15:06 DCW [id number]) Hip Strength Hip Manual Muscle Testing Right Flexion (L2) 5 Normal Abduction 5 Normal Adduction 5 Normal Left Flexion (L2) 4+ Good+ Abduction 5 Normal Adduction 5 Normal Knee Strength Knee Manual Muscle Testing Right Flexion (S2) 5 Normal Extension (L3) 5 Normal Left Flexion (S2) 4+ Good+ Extension (L3) 5 Normal Ankle/Foot Strength Ankle and Foot Manual Muscle Testing Right Dorsiflexion (L4) 2- Poor- Plantarflexion (S1) 3+ Fair+ Left Dorsiflexion (L4) 4+ Good+ Plantarflexion (S1) 5 Normal PT-OP-Q Treatments Start: 09/28/17 15:21 Freq: Status: Active Protocol: Document 01/10/18 09:45 DCW (Rec: 01/10/18 10:28 DCW [id number]) Gym Equipment Shuttle Recovery Bilateral Heel Raises Resistance 100# Shuttle Recovery Platform Stable Reps/Time x60 Unilateral Squats Resistance 75# Shuttle Recovery Platform Stable Reps/Time x20 Bilateral Squats Resistance 150# Shuttle Recovery Platform Stable Reps/Time x30 Shuttle Balance 1 Details Yellow - Wide WILIAN Gait Training Gait Activity 3 Device Used 4WW Level of Assistance SBA Distance/Duration 750' Treatment Focus Increased gait distance/ tolerance Comments v/c for proper breathing, joan Neuro Re-Education Treatment Balance Activities 4 Details Side-stepping /c hurdles/foam in // bars 3 Details Hurdles/Foam in // bars Equipment Hurdles, Foam, // bars, 5# ankle weights PT-OP-T Assessment and Plan Start: 09/28/17 15:21 Freq: Status: Active Protocol: Document 01/10/18 09:45 DCW (Rec: 01/10/18 10:28 DCW [id number]) Physical Therapy Assessment Impairments Impairments Activity Tolerance Balance Functional Activities Functional Mobility Gait ROM Strength Goals Seven Impairment Donis Senior Living Goal (LTG) Pt to score 22/56 on Donis Balance scale LTG Duration 02/15/18 Six Impairment Static Standing Balance Short Term Goal (STG) Pt to hold double leg balance with eyes open on a firm surface for 60 seconds STG Duration Met Breaker Off Goal (LTG) Pt to stand independently for 2 minutes LTG Duration 02/15/18 Five Impairment Gait tolerance Senior Living Goal (LTG) Pt to tolerate 1000' ambulation without rest using 4WW LTG Duration 02/15/18 - Improving Four Impairment Foot slap Short Term Goal (STG) Pt to regularly wear R AFO to limit foot drop and help normalize gait pattern STG Duration Goal Met Three Impairment Transfers Short Term Goal (STG) Pt to transfer independently from mat<->w/c with no assistive devices STG Duration Met Two Impairment Ankle weakness Senior Living Goal (LTG) Pt to display 2/5 MMT in R DF, 4/5 MMT in R PF, and 4+/5 MMT in all other bilateral ankle movements LTG Duration 02/15/18 - Improving One Impairment Activity tolerance Breaker Off Goal (LTG) Pt to tolerate activity up to 15 minutes without a break LTG Duration 02/15/18 Progress Towards Goals Progress Towards Goals Progressing Toward Goals Slow Progress due to Activity Tolerance Slow Progress due to Medical Issues Assessment Summary Assessment Pt has increased subjective fatigue today, however overall matched his normal activity tolerance, and even took fewer breaks than normal during his deisy/foam walking in the parallel bars. Physical Therapy Plan Frequency and Duration Frequency of Treatment 2x/Week Duration of Treatment 12 weeks Plan of Care Start Date 01/05/18 Plan of Care End Date 03/30/18 Therapeutic Interventions Therapeutic Interventions Aquatic Therapy Balance Training Gait Training Home Exercise Program Manual Therapy Neuromuscular Re-education Soft Tissue Mobilization Therapeutic Activities Therapeutic Exercises Next Visit Focus/Plan Next Note Type Treatment Note Next Visit Plan Increased activity tolerance and balance training.
--- NOTE | 2018-01-13 10:29 | PT.OTN ---
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 greater than 24 hours with return to pre-existing conscious level, subsequent encounter (01/13/18) History of falling (01/13/18) Physical Therapy Treatment Note PT-OP-A Visit Information Start: 09/28/17 15:21 Freq: Status: Active Protocol: Document 01/13/18 09:45 DCW (Rec: 01/13/18 10:29 DCW [id number]) Out-Patient Physical Therapy Visit Information Visit Information Visit Type Treatment Note Visit Start Time 09:45 Visit Stop Time 10:30 Total Visit Minutes 45 Visit Number 40 Number of JUSTICE PROFESSOR Visits 0 Evaluation Information Evaluation Date 07/27/17 PT-OP-B Current Condition Start: 09/28/17 15:21 Freq: Status: Active Protocol: Document 10/12/17 13:45 DCW (Rec: 10/12/17 18:33 DCW [id number]) Current Condition History of Current Condition Onset Date 02/05/17 History of Current Condition See Pt's initial evaluation in Therapy Source Current Functional Impairments (Reported) Functional Limitations- Mobility/Gait Transfers:W/C<->Mat Stand- pivot: Independent PT-OP-C Subjective Start: 09/28/17 15:21 Freq: Status: Active Protocol: Document 01/13/18 09:45 DCW (Rec: 01/13/18 10:29 DCW [id number]) OP-PT Subjective Patient Comments Patient Comments I never really know when I leave my house in the morning if I'm going to have a good day or a bad day. PT-OP-D Balance Start: 10/12/17 18:11 Freq: Status: Active Protocol: Document 01/05/18 14:30 DCW (Rec: 01/05/18 15:06 DCW [id number]) OP-PT Balance Assessment Standing Balance Standing Balance Comments Double leg, Eyes open: 1'24 Donis Balance Assessment Evaluation Sitting to Standing Ability Independent w/Hands Unsupported Stance Several Tries, 30 seconds Sitting Unsupported, Feet on Floor Safely- 2 minutes Standing to Sitting Ability Independent, Uncontrolled Transfer Ability Safely, Hand Use Unsupported Stance- Eyes Closed Safely, With Eyes Open Unsupported Stance- Eyes Open Assist to attain, 15 secs Reaching Forward Standing Safely, 2 inches Pick- Up Object From Floor Requires Assistance Look Behind Shoulder - Standing Assist to Prevent Fall Turning 360 Degrees Requires Assistance Unsupported Stance, Alternating Feet on Assist to Prevent Fall Stair Unsupported Tandem Stance Balance Lost- Step/Stand Unilateral Leg Stance Unable,assist to not fall Total Score Donis Total Score (out of 56 points) 16 Donis Impairment Rating 60 to 79% Impaired (Score 12- 22) Mejia Fall Scale Copyright Permission Roberto KELLY, Roberto RM, Mark SJ. Development of a scale to identify the fall- prone patient. Can J Aging 1989;8;366-7. Catrachita Mejia (2009). Preventing patient falls. (2nd ed). [place]: Marquis. PT-OP-E Functional Tests Start: 10/12/17 18:11 Freq: Status: Active Protocol: Document 01/05/18 14:30 DCW (Rec: 01/05/18 15:06 DCW [id number]) Functional Tests 6 Minute Walk Test Distance 690' Device Used 4WW PT-OP-M Strength Start: 10/12/17 18:11 Freq: Status: Active Protocol: Document 01/05/18 14:30 DCW (Rec: 01/05/18 15:06 DCW [id number]) Hip Strength Hip Manual Muscle Testing Right Flexion (L2) 5 Normal Abduction 5 Normal Adduction 5 Normal Left Flexion (L2) 4+ Good+ Abduction 5 Normal Adduction 5 Normal Knee Strength Knee Manual Muscle Testing Right Flexion (S2) 5 Normal Extension (L3) 5 Normal Left Flexion (S2) 4+ Good+ Extension (L3) 5 Normal Ankle/Foot Strength Ankle and Foot Manual Muscle Testing Right Dorsiflexion (L4) 2- Poor- Plantarflexion (S1) 3+ Fair+ Left Dorsiflexion (L4) 4+ Good+ Plantarflexion (S1) 5 Normal PT-OP-Q Treatments Start: 09/28/17 15:21 Freq: Status: Active Protocol: Document 01/13/18 09:45 DCW (Rec: 01/13/18 10:29 DCW [id number]) Gym Equipment Shuttle Recovery Bilateral Heel Raises Resistance 100# Shuttle Recovery Platform Stable Reps/Time x60 Unilateral Squats Resistance 75# Shuttle Recovery Platform Stable Reps/Time x20 Bilateral Squats Resistance 150# Shuttle Recovery Platform Stable Reps/Time x30 Gait Training Gait Activity 3 Device Used 4WW Level of Assistance SBA Distance/Duration 930' Treatment Focus Increased gait distance/ tolerance Comments v/c for proper breathing, joan Neuro Re-Education Treatment Balance Activities 4 Details Side-stepping /c hurdles/foam in // bars 3 Details Hurdles/Foam in // bars Equipment Hurdles, Foam, // bars, 5# ankle weights PT-OP-T Assessment and Plan Start: 09/28/17 15:21 Freq: Status: Active Protocol: Document 01/13/18 09:45 DCW (Rec: 01/13/18 10:29 DCW [id number]) Physical Therapy Assessment Impairments Impairments Activity Tolerance Balance Functional Activities Functional Mobility Gait ROM Strength Goals Seven Impairment Donis Half-Way Goal (LTG) Pt to score 22/56 on Donis Balance scale LTG Duration 02/15/18 Six Impairment Static Standing Balance Short Term Goal (STG) Pt to hold double leg balance with eyes open on a firm surface for 60 seconds STG Duration Met Tour Agent Goal (LTG) Pt to stand independently for 2 minutes LTG Duration 02/15/18 Five Impairment Gait tolerance Tour Agent Goal (LTG) Pt to tolerate 1000' ambulation without rest using 4WW LTG Duration 02/15/18 - Improving Four Impairment Foot slap Short Term Goal (STG) Pt to regularly wear R AFO to limit foot drop and help normalize gait pattern STG Duration Goal Met Three Impairment Transfers Short Term Goal (STG) Pt to transfer independently from mat<->w/c with no assistive devices STG Duration Met Two Impairment Ankle weakness Half-Way Goal (LTG) Pt to display 2/5 MMT in R DF, 4/5 MMT in R PF, and 4+/5 MMT in all other bilateral ankle movements LTG Duration 02/15/18 - Improving One Impairment Activity tolerance Half-Way Goal (LTG) Pt to tolerate activity up to 15 minutes without a break LTG Duration 02/15/18 Progress Towards Goals Progress Towards Goals Progressing Toward Goals Slow Progress due to Activity Tolerance Slow Progress due to Medical Issues Assessment Summary Assessment Pt walked his farthest distance today, approaching 1000', and was still able to perform the remainder of his normal exercise routine. Physical Therapy Plan Frequency and Duration Frequency of Treatment 2x/Week Duration of Treatment 12 weeks Plan of Care Start Date 01/05/18 Plan of Care End Date 03/30/18 Therapeutic Interventions Therapeutic Interventions Aquatic Therapy Balance Training Gait Training Home Exercise Program Manual Therapy Neuromuscular Re-education Soft Tissue Mobilization Therapeutic Activities Therapeutic Exercises Next Visit Focus/Plan Next Note Type Treatment Note Next Visit Plan Continue current POC
--- NOTE | 2018-01-17 10:30 | PT.OTN ---
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 greater than 24 hours with return to pre-existing conscious level, subsequent encounter (01/17/18) History of falling (01/17/18) Physical Therapy Treatment Note PT-OP-A Visit Information Start: 09/28/17 15:21 Freq: Status: Active Protocol: Document 01/17/18 09:45 DCW (Rec: 01/17/18 10:30 DCW [id number]) Out-Patient Physical Therapy Visit Information Visit Information Visit Type Treatment Note Visit Start Time 09:45 Visit Stop Time 10:30 Total Visit Minutes 45 Visit Number 41 Number of DENIER CONTROL OPERATOR Visits 0 Evaluation Information Evaluation Date 07/27/17 PT-OP-B Current Condition Start: 09/28/17 15:21 Freq: Status: Active Protocol: Document 10/12/17 13:45 DCW (Rec: 10/12/17 18:33 DCW [id number]) Current Condition History of Current Condition Onset Date 02/05/17 History of Current Condition See Pt's initial evaluation in Therapy Source Current Functional Impairments (Reported) Functional Limitations- Mobility/Gait Transfers:W/C<->Mat Stand- pivot: Independent PT-OP-C Subjective Start: 09/28/17 15:21 Freq: Status: Active Protocol: Document 01/17/18 09:45 DCW (Rec: 01/17/18 10:30 DCW [id number]) OP-PT Subjective Patient Comments Patient Comments I'm moving slowly this morning. PT-OP-D Balance Start: 10/12/17 18:11 Freq: Status: Active Protocol: Document 01/05/18 14:30 DCW (Rec: 01/05/18 15:06 DCW [id number]) OP-PT Balance Assessment Standing Balance Standing Balance Comments Double leg, Eyes open: Donis Balance Assessment Evaluation Sitting to Standing Ability Independent w/Hands Unsupported Stance Several Tries, 30 seconds Sitting Unsupported, Feet on Floor Safely- 2 minutes Standing to Sitting Ability Independent, Uncontrolled Transfer Ability Safely, Hand Use Unsupported Stance- Eyes Closed Safely, With Eyes Open Unsupported Stance- Eyes Open Assist to attain, 15 secs Reaching Forward Standing Safely, 2 inches Pick- Up Object From Floor Requires Assistance Look Behind Shoulder - Standing Assist to Prevent Fall Turning 360 Degrees Requires Assistance Unsupported Stance, Alternating Feet on Assist to Prevent Fall Stair Unsupported Tandem Stance Balance Lost- Step/Stand Unilateral Leg Stance Unable,assist to not fall Total Score Donis Total Score (out of 56 points) 16 Donis Impairment Rating 60 to 79% Impaired (Score 12- 22) Mejia Fall Scale Copyright Permission Roberto JM, Roberto RM, Mark SJ. Development of a scale to identify the fall- prone patient. Can J Aging 1989;8;366-7. Catrachita Mejia (2009). Preventing patient falls. (2nd ed). [place]: Marquis. PT-OP-E Functional Tests Start: 10/12/17 18:11 Freq: Status: Active Protocol: Document 01/05/18 14:30 DCW (Rec: 01/05/18 15:06 DCW [id number]) Functional Tests 6 Minute Walk Test Distance 690' Device Used 4WW PT-OP-M Strength Start: 10/12/17 18:11 Freq: Status: Active Protocol: Document 01/05/18 14:30 DCW (Rec: 01/05/18 15:06 DCW [id number]) Hip Strength Hip Manual Muscle Testing Right Flexion (L2) 5 Normal Abduction 5 Normal Adduction 5 Normal Left Flexion (L2) 4+ Good+ Abduction 5 Normal Adduction 5 Normal Knee Strength Knee Manual Muscle Testing Right Flexion (S2) 5 Normal Extension (L3) 5 Normal Left Flexion (S2) 4+ Good+ Extension (L3) 5 Normal Ankle/Foot Strength Ankle and Foot Manual Muscle Testing Right Dorsiflexion (L4) 2- Poor- Plantarflexion (S1) 3+ Fair+ Left Dorsiflexion (L4) 4+ Good+ Plantarflexion (S1) 5 Normal PT-OP-Q Treatments Start: 09/28/17 15:21 Freq: Status: Active Protocol: Document 01/17/18 09:45 DCW (Rec: 01/17/18 10:30 DCW [id number]) Therapeutic Activity Therapeutic Activity 2 Name Wheelchair<->Floor transfers Gait Training Gait Activity 3 Device Used 4WW Level of Assistance SBA Distance/Duration 930' Treatment Focus Increased gait distance/ tolerance Comments v/c for proper breathing, joan Neuro Re-Education Treatment Balance Activities 4 Details Side-stepping /c hurdles/foam in // bars 3 Details Hurdles/Foam in // bars Equipment Hurdles, Foam, // bars, 5# ankle weights PT-OP-T Assessment and Plan Start: 09/28/17 15:21 Freq: Status: Active Protocol: Document 01/17/18 09:45 DCW (Rec: 01/17/18 10:30 DCW [id number]) Physical Therapy Assessment Impairments Impairments Activity Tolerance Balance Functional Activities Functional Mobility Gait ROM Strength Goals Seven Impairment Donis Group Home Goal (LTG) Pt to score 22/56 on Donis Balance scale LTG Duration 02/15/18 Six Impairment Static Standing Balance Short Term Goal (STG) Pt to hold double leg balance with eyes open on a firm surface for 60 seconds STG Duration Met Group Home Goal (LTG) Pt to stand independently for 2 minutes LTG Duration 02/15/18 Five Impairment Gait tolerance Group Home Goal (LTG) Pt to tolerate 1000' ambulation without rest using 4WW LTG Duration 02/15/18 - Improving Four Impairment Foot slap Short Term Goal (STG) Pt to regularly wear R AFO to limit foot drop and help normalize gait pattern STG Duration Goal Met Three Impairment Transfers Short Term Goal (STG) Pt to transfer independently from mat<->w/c with no assistive devices STG Duration Met Two Impairment Ankle weakness Group Home Goal (LTG) Pt to display 2/5 MMT in R DF, 4/5 MMT in R PF, and 4+/5 MMT in all other bilateral ankle movements LTG Duration 02/15/18 - Improving One Impairment Activity tolerance Gold Leaf Roller Goal (LTG) Pt to tolerate activity up to 15 minutes without a break LTG Duration 02/15/18 Progress Towards Goals Progress Towards Goals Progressing Toward Goals Slow Progress due to Activity Tolerance Slow Progress due to Medical Issues Assessment Summary Assessment Pt did very well with his first attempts at wheelchair<- >floor transfers, which his requested training on after going to a CPR class this weekend, and worrying that he would be unable to get to the floor in an emergency situation. Physical Therapy Plan Frequency and Duration Frequency of Treatment 2x/Week Duration of Treatment 12 weeks Plan of Care Start Date 01/05/18 Plan of Care End Date 03/30/18 Therapeutic Interventions Therapeutic Interventions Aquatic Therapy Balance Training Gait Training Home Exercise Program Manual Therapy Neuromuscular Re-education Soft Tissue Mobilization Therapeutic Activities Therapeutic Exercises Next Visit Focus/Plan Next Note Type Treatment Note Next Visit Plan Continue current POC
--- NOTE | 2018-01-20 10:45 | PT.OTN ---
Current Diagnoses Foot drop, right foot (01/20/18) Muscle weakness (generalized) (01/20/18) Unsteadiness on feet (01/20/18) Unspecified abnormalities of gait and mobility (01/20/18) Traumatic subdural hemorrhage with loss of consciousness greater than 24 hours with return to pre-existing conscious level, subsequent encounter (01/20/18) History of falling (01/20/18) Physical Therapy Treatment Note PT-OP-A Visit Information Start: 09/28/17 15:21 Freq: Status: Active Protocol: Document 01/20/18 09:45 DCW (Rec: 01/20/18 10:45 DCW [id number]) Out-Patient Physical Therapy Visit Information Visit Information Visit Type Treatment Note Visit Start Time 09:45 Visit Stop Time 10:30 Total Visit Minutes 45 Visit Number 42 Number of WARP DYEING VAT TENDER Visits 0 Evaluation Information Evaluation Date 07/27/17 PT-OP-B Current Condition Start: 09/28/17 15:21 Freq: Status: Active Protocol: Document 10/12/17 13:45 DCW (Rec: 10/12/17 18:33 DCW [id number]) Current Condition History of Current Condition Onset Date 02/05/17 History of Current Condition See Pt's initial evaluation in Therapy Source Current Functional Impairments (Reported) Functional Limitations- Mobility/Gait Transfers:W/C<->Mat Stand- pivot: Independent PT-OP-C Subjective Start: 09/28/17 15:21 Freq: Status: Active Protocol: Document 01/20/18 09:45 DCW (Rec: 01/20/18 10:45 DCW [id number]) OP-PT Subjective Patient Comments Patient Comments Pt's reports pt was seen in dermatology yesterday, and had two spots of skin cancer removed from his leg. Her was reportedly told he could attend therapy today, but to not do anything that really gets his heart pumping fast for the next 10 days. Patient Reported Progress Improving PT-OP-D Balance Start: 10/12/17 18:11 Freq: Status: Active Protocol: Document 01/05/18 14:30 DCW (Rec: 01/05/18 15:06 DCW [id number]) OP-PT Balance Assessment Standing Balance Standing Balance Comments Double leg, Eyes open: Donis Balance Assessment Evaluation Sitting to Standing Ability Independent w/Hands Unsupported Stance Several Tries, 30 seconds Sitting Unsupported, Feet on Floor Safely- 2 minutes Standing to Sitting Ability Independent, Uncontrolled Transfer Ability Safely, Hand Use Unsupported Stance- Eyes Closed Safely, With Eyes Open Unsupported Stance- Eyes Open Assist to attain, 15 secs Reaching Forward Standing Safely, 2 inches Pick- Up Object From Floor Requires Assistance Look Behind Shoulder - Standing Assist to Prevent Fall Turning 360 Degrees Requires Assistance Unsupported Stance, Alternating Feet on Assist to Prevent Fall Stair Unsupported Tandem Stance Balance Lost- Step/Stand Unilateral Leg Stance Unable,assist to not fall Total Score Donis Total Score (out of 56 points) 16 Donis Impairment Rating 60 to 79% Impaired (Score 12- 22) Mejia Fall Scale Copyright Permission Roberto KELLY, Roberto RM, Mark SJ. Development of a scale to identify the fall- prone patient. Can J Aging 1989;8;366-7. Catrachita Mejia (2009). Preventing patient falls. (2nd ed). [place]: Marquis. PT-OP-E Functional Tests Start: 10/12/17 18:11 Freq: Status: Active Protocol: Document 01/05/18 14:30 DCW (Rec: 01/05/18 15:06 DCW [id number]) Functional Tests 6 Minute Walk Test Distance 690' Device Used 4WW PT-OP-M Strength Start: 10/12/17 18:11 Freq: Status: Active Protocol: Document 01/05/18 14:30 DCW (Rec: 01/05/18 15:06 DCW [id number]) Hip Strength Hip Manual Muscle Testing Right Flexion (L2) 5 Normal Abduction 5 Normal Adduction 5 Normal Left Flexion (L2) 4+ Good+ Abduction 5 Normal Adduction 5 Normal Knee Strength Knee Manual Muscle Testing Right Flexion (S2) 5 Normal Extension (L3) 5 Normal Left Flexion (S2) 4+ Good+ Extension (L3) 5 Normal Ankle/Foot Strength Ankle and Foot Manual Muscle Testing Right Dorsiflexion (L4) 2- Poor- Plantarflexion (S1) 3+ Fair+ Left Dorsiflexion (L4) 4+ Good+ Plantarflexion (S1) 5 Normal PT-OP-Q Treatments Start: 09/28/17 15:21 Freq: Status: Active Protocol: Document 01/20/18 09:45 DCW (Rec: 01/20/18 10:45 DCW [id number]) Gym Equipment Shuttle Recovery Bilateral Heel Raises Resistance 100# Shuttle Recovery Platform Stable Reps/Time x60 Unilateral Squats Resistance 75# Shuttle Recovery Platform Stable Reps/Time x20 Bilateral Squats Resistance 150# Shuttle Recovery Platform Stable Reps/Time x30 Shuttle Balance 1 Details Yellow - Wide WILIAN Gait Training Gait Activity 1 Device Used SPC Level of Assistance Min Ax1 Surface Level Distance/Duration 100' x1, 50' x6 PT-OP-T Assessment and Plan Start: 09/28/17 15:21 Freq: Status: Active Protocol: Document 01/20/18 09:45 DCW (Rec: 01/20/18 10:45 DCW [id number]) Physical Therapy Assessment Rehab Potential Rehabilitation Potential Good Impairments Impairments Activity Tolerance Balance Functional Activities Functional Mobility Gait ROM Strength Goals Seven Impairment Donis Advertising Agency Manager Goal (LTG) Pt to score 22/56 on Donis Balance scale LTG Duration 02/15/18 Six Impairment Static Standing Balance Short Term Goal (STG) Pt to hold double leg balance with eyes open on a firm surface for 60 seconds STG Duration Met Advertising Agency Manager Goal (LTG) Pt to stand independently for 2 minutes LTG Duration 02/15/18 Five Impairment Gait tolerance Advertising Agency Manager Goal (LTG) Pt to tolerate 1000' ambulation without rest using 4WW LTG Duration 02/15/18 - Improving Four Impairment Foot slap Short Term Goal (STG) Pt to regularly wear R AFO to limit foot drop and help normalize gait pattern STG Duration Goal Met Three Impairment Transfers Short Term Goal (STG) Pt to transfer independently from mat<->w/c with no assistive devices STG Duration Met Two Impairment Ankle weakness Advertising Agency Manager Goal (LTG) Pt to display 2/5 MMT in R DF, 4/5 MMT in R PF, and 4+/5 MMT in all other bilateral ankle movements LTG Duration 02/15/18 - Improving One Impairment Activity tolerance Advertising Agency Manager Goal (LTG) Pt to tolerate activity up to 15 minutes without a break LTG Duration 02/15/18 Progress Towards Goals Progress Towards Goals Progressing Toward Goals Slow Progress due to Activity Tolerance Slow Progress due to Medical Issues Assessment Summary Assessment Pt was able to participate in today's activities without increasing his heart rate or getting out of breath. Physical Therapy Plan Frequency and Duration Frequency of Treatment 2x/Week Duration of Treatment 12 weeks Plan of Care Start Date 01/05/18 Plan of Care End Date 03/30/18 Therapeutic Interventions Therapeutic Interventions Aquatic Therapy Balance Training Gait Training Home Exercise Program Manual Therapy Neuromuscular Re-education Soft Tissue Mobilization Therapeutic Activities Therapeutic Exercises Next Visit Focus/Plan Next Note Type Treatment Note Next Visit Plan Continue current POC
--- NOTE | 2018-01-25 10:28 | PT.OTN ---
Current Diagnoses Foot drop, right foot (01/25/18) Muscle weakness (generalized) (01/25/18) Unsteadiness on feet (01/25/18) Unspecified abnormalities of gait and mobility (01/25/18) Traumatic subdural hemorrhage with loss of consciousness greater than 24 hours with return to pre-existing conscious level, subsequent encounter (01/25/18) History of falling (01/25/18) Physical Therapy Treatment Note PT-OP-A Visit Information Start: 09/28/17 15:21 Freq: Status: Active Protocol: Document 01/25/18 09:45 DCW (Rec: 01/25/18 10:28 DCW [id number]) Out-Patient Physical Therapy Visit Information Visit Information Visit Type Treatment Note Visit Start Time 09:45 Visit Stop Time 10:30 Total Visit Minutes 45 Visit Number 43 Number of CORE STRIPPER Visits 0 Evaluation Information Evaluation Date 07/27/17 PT-OP-B Current Condition Start: 09/28/17 15:21 Freq: Status: Active Protocol: Document 10/12/17 13:45 DCW (Rec: 10/12/17 18:33 DCW [id number]) Current Condition History of Current Condition Onset Date 02/05/17 History of Current Condition See Pt's initial evaluation in Therapy Source Current Functional Impairments (Reported) Functional Limitations- Mobility/Gait Transfers:W/C<->Mat Stand- pivot: Independent PT-OP-C Subjective Start: 09/28/17 15:21 Freq: Status: Active Protocol: Document 01/25/18 09:45 DCW (Rec: 01/25/18 10:28 DCW [id number]) OP-PT Subjective Patient Comments Patient Comments Pt reports he leg feels fine following his \skin cancer removal last week, and he has been walking more at home. PT-OP-D Balance Start: 10/12/17 18:11 Freq: Status: Active Protocol: Document 01/05/18 14:30 DCW (Rec: 01/05/18 15:06 DCW [id number]) OP-PT Balance Assessment Standing Balance Standing Balance Comments Double leg, Eyes open: 1'24 Donis Balance Assessment Evaluation Sitting to Standing Ability Independent w/Hands Unsupported Stance Several Tries, 30 seconds Sitting Unsupported, Feet on Floor Safely- 2 minutes Standing to Sitting Ability Independent, Uncontrolled Transfer Ability Safely, Hand Use Unsupported Stance- Eyes Closed Safely, With Eyes Open Unsupported Stance- Eyes Open Assist to attain, 15 secs Reaching Forward Standing Safely, 2 inches Pick- Up Object From Floor Requires Assistance Look Behind Shoulder - Standing Assist to Prevent Fall Turning 360 Degrees Requires Assistance Unsupported Stance, Alternating Feet on Assist to Prevent Fall Stair Unsupported Tandem Stance Balance Lost- Step/Stand Unilateral Leg Stance Unable,assist to not fall Total Score Donis Total Score (out of 56 points) 16 Donis Impairment Rating 60 to 79% Impaired (Score 12- 22) Mejia Fall Scale Copyright Permission Roberto KELLY, Roberto RM, Mark SJ. Development of a scale to identify the fall- prone patient. Can J Aging 1989;8;366-7. Catrachita Mejia (2009). Preventing patient falls. (2nd ed). [place]: [place]. PT-OP-E Functional Tests Start: 10/12/17 18:11 Freq: Status: Active Protocol: Document 01/05/18 14:30 DCW (Rec: 01/05/18 15:06 DCW [id number]) Functional Tests 6 Minute Walk Test Distance 690' Device Used 4WW PT-OP-M Strength Start: 10/12/17 18:11 Freq: Status: Active Protocol: Document 01/05/18 14:30 DCW (Rec: 01/05/18 15:06 DCW [id number]) Hip Strength Hip Manual Muscle Testing Right Flexion (L2) 5 Normal Abduction 5 Normal Adduction 5 Normal Left Flexion (L2) 4+ Good+ Abduction 5 Normal Adduction 5 Normal Knee Strength Knee Manual Muscle Testing Right Flexion (S2) 5 Normal Extension (L3) 5 Normal Left Flexion (S2) 4+ Good+ Extension (L3) 5 Normal Ankle/Foot Strength Ankle and Foot Manual Muscle Testing Right Dorsiflexion (L4) 2- Poor- Plantarflexion (S1) 3+ Fair+ Left Dorsiflexion (L4) 4+ Good+ Plantarflexion (S1) 5 Normal PT-OP-Q Treatments Start: 09/28/17 15:21 Freq: Status: Active Protocol: Document 01/25/18 09:45 DCW (Rec: 01/25/18 10:28 DCW [id number]) Gym Equipment Shuttle Recovery Bilateral Heel Raises Resistance 100# Shuttle Recovery Platform Stable Reps/Time x60 Unilateral Squats Resistance 87# Shuttle Recovery Platform Stable Reps/Time x20 Bilateral Squats Resistance 150# Shuttle Recovery Platform Stable Reps/Time x30 Shuttle Balance 1 Details Yellow - Wide WILIAN Gait Training Gait Activity 3 Device Used 4WW Level of Assistance SBA Distance/Duration 930' Treatment Focus Increased gait distance/ tolerance Comments v/c for proper breathing, joan Neuro Re-Education Treatment Balance Activities 4 Details Side-stepping /c hurdles/foam in // bars 3 Details Hurdles/Foam in // bars Equipment Hurdles, Foam, // bars, 5# ankle weights PT-OP-T Assessment and Plan Start: 09/28/17 15:21 Freq: Status: Active Protocol: Document 01/25/18 09:45 DCW (Rec: 01/25/18 10:28 DCW [id number]) Physical Therapy Assessment Impairments Impairments Activity Tolerance Balance Functional Activities Functional Mobility Gait ROM Strength Goals Seven Impairment Donis Retirement Goal (LTG) Pt to score 22/56 on Donis Balance scale LTG Duration 02/15/18 Six Impairment Static Standing Balance Short Term Goal (STG) Pt to hold double leg balance with eyes open on a firm surface for 60 seconds STG Duration Met Drop Wire Builder Goal (LTG) Pt to stand independently for 2 minutes LTG Duration 02/15/18 Five Impairment Gait tolerance Drop Wire Builder Goal (LTG) Pt to tolerate 1000' ambulation without rest using 4WW LTG Duration 02/15/18 - Improving Four Impairment Foot slap Short Term Goal (STG) Pt to regularly wear R AFO to limit foot drop and help normalize gait pattern STG Duration Goal Met Three Impairment Transfers Short Term Goal (STG) Pt to transfer independently from mat<->w/c with no assistive devices STG Duration Met Two Impairment Ankle weakness Drop Wire Builder Goal (LTG) Pt to display 2/5 MMT in R DF, 4/5 MMT in R PF, and 4+/5 MMT in all other bilateral ankle movements LTG Duration 02/15/18 - Improving One Impairment Activity tolerance Retirement Goal (LTG) Pt to tolerate activity up to 15 minutes without a break LTG Duration 02/15/18 Progress Towards Goals Progress Towards Goals Progressing Toward Goals Slow Progress due to Activity Tolerance Slow Progress due to Medical Issues Assessment Summary Assessment Pt appeared more fatigued today, but was still able to perform at his recent highest performance levels Physical Therapy Plan Frequency and Duration Frequency of Treatment 2x/Week Duration of Treatment 12 weeks Plan of Care Start Date 01/05/18 Plan of Care End Date 03/30/18 Therapeutic Interventions Therapeutic Interventions Aquatic Therapy Balance Training Gait Training Home Exercise Program Manual Therapy Neuromuscular Re-education Soft Tissue Mobilization Therapeutic Activities Therapeutic Exercises Next Visit Focus/Plan Next Note Type Treatment Note Next Visit Plan Continue current POC
--- NOTE | 2018-01-28 10:25 | PT.OTN ---
Current Diagnoses Foot drop, right foot (01/28/18) Muscle weakness (generalized) (01/28/18) Unsteadiness on feet (01/28/18) Unspecified abnormalities of gait and mobility (01/28/18) Traumatic subdural hemorrhage with loss of consciousness greater than 24 hours with return to pre-existing conscious level, subsequent encounter (01/28/18) History of falling (01/28/18) Physical Therapy Treatment Note PT-OP-A Visit Information Start: 09/28/17 15:21 Freq: Status: Active Protocol: Document 01/28/18 09:45 DCW (Rec: 01/28/18 10:25 DCW [id number]) Out-Patient Physical Therapy Visit Information Visit Information Visit Type Treatment Note Visit Start Time 09:45 Visit Stop Time 10:30 Total Visit Minutes 45 Visit Number 44 Number of HOSPITALITY MANAGER Visits 0 Evaluation Information Evaluation Date 07/27/17 PT-OP-B Current Condition Start: 09/28/17 15:21 Freq: Status: Active Protocol: Document 10/12/17 13:45 DCW (Rec: 10/12/17 18:33 DCW [id number]) Current Condition History of Current Condition Onset Date 02/05/17 History of Current Condition See Pt's initial evaluation in Therapy Source Current Functional Impairments (Reported) Functional Limitations- Mobility/Gait Transfers:W/C<->Mat Stand- pivot: Independent PT-OP-C Subjective Start: 09/28/17 15:21 Freq: Status: Active Protocol: Document 01/28/18 09:45 DCW (Rec: 01/28/18 10:25 DCW [id number]) OP-PT Subjective Patient Comments Patient Comments Pt doing well today PT-OP-D Balance Start: 10/12/17 18:11 Freq: Status: Active Protocol: Document 01/05/18 14:30 DCW (Rec: 01/05/18 15:06 DCW [id number]) OP-PT Balance Assessment Standing Balance Standing Balance Comments Double leg, Eyes open: Donis Balance Assessment Evaluation Sitting to Standing Ability Independent w/Hands Unsupported Stance Several Tries, 30 seconds Sitting Unsupported, Feet on Floor Safely- 2 minutes Standing to Sitting Ability Independent, Uncontrolled Transfer Ability Safely, Hand Use Unsupported Stance- Eyes Closed Safely, With Eyes Open Unsupported Stance- Eyes Open Assist to attain, 15 secs Reaching Forward Standing Safely, 2 inches Pick- Up Object From Floor Requires Assistance Look Behind Shoulder - Standing Assist to Prevent Fall Turning 360 Degrees Requires Assistance Unsupported Stance, Alternating Feet on Assist to Prevent Fall Stair Unsupported Tandem Stance Balance Lost- Step/Stand Unilateral Leg Stance Unable,assist to not fall Total Score Donis Total Score (out of 56 points) 16 Donis Impairment Rating 60 to 79% Impaired (Score 12- 22) Roberto Fall Scale Copyright Permission Roberto JM, Roberto RM, Mark SJ. Development of a scale to identify the fall- prone patient. Can J Aging 1989;8;366-7. Catrachita Mejia (2009). Preventing patient falls. (2nd ed). [place]: Marquis. PT-OP-E Functional Tests Start: 10/12/17 18:11 Freq: Status: Active Protocol: Document 01/05/18 14:30 DCW (Rec: 01/05/18 15:06 DCW [id number]) Functional Tests 6 Minute Walk Test Distance 690' Device Used 4WW PT-OP-M Strength Start: 10/12/17 18:11 Freq: Status: Active Protocol: Document 01/05/18 14:30 DCW (Rec: 01/05/18 15:06 DCW [id number]) Hip Strength Hip Manual Muscle Testing Right Flexion (L2) 5 Normal Abduction 5 Normal Adduction 5 Normal Left Flexion (L2) 4+ Good+ Abduction 5 Normal Adduction 5 Normal Knee Strength Knee Manual Muscle Testing Right Flexion (S2) 5 Normal Extension (L3) 5 Normal Left Flexion (S2) 4+ Good+ Extension (L3) 5 Normal Ankle/Foot Strength Ankle and Foot Manual Muscle Testing Right Dorsiflexion (L4) 2- Poor- Plantarflexion (S1) 3+ Fair+ Left Dorsiflexion (L4) 4+ Good+ Plantarflexion (S1) 5 Normal PT-OP-Q Treatments Start: 09/28/17 15:21 Freq: Status: Active Protocol: Document 01/28/18 09:45 DCW (Rec: 01/28/18 10:25 DCW [id number]) Gym Equipment Shuttle Recovery Bilateral Heel Raises Resistance 112# Shuttle Recovery Platform Stable Reps/Time x60 Unilateral Squats Resistance 87# Shuttle Recovery Platform Stable Reps/Time x20 Bilateral Squats Resistance 150# Shuttle Recovery Platform Stable Reps/Time x30 Shuttle Balance 1 Details Yellow - Wide WILIAN Gait Training Gait Activity 3 Device Used 4WW Level of Assistance SBA Distance/Duration 930' Treatment Focus Increased gait distance/ tolerance Comments v/c for proper breathing, joan Neuro Re-Education Treatment Balance Activities 4 Details Side-stepping /c hurdles/foam in // bars 3 Details Hurdles/Foam in // bars Equipment Hurdles, Foam, // bars, 5# ankle weights PT-OP-T Assessment and Plan Start: 09/28/17 15:21 Freq: Status: Active Protocol: Document 01/28/18 09:45 DCW (Rec: 01/28/18 10:25 DCW [id number]) Physical Therapy Assessment Impairments Impairments Activity Tolerance Balance Functional Activities Functional Mobility Gait ROM Strength Goals Seven Impairment Donis Planograph Operator Goal (LTG) Pt to score 22/56 on Donis Balance scale LTG Duration 02/15/18 Six Impairment Static Standing Balance Short Term Goal (STG) Pt to hold double leg balance with eyes open on a firm surface for 60 seconds STG Duration Met Planograph Operator Goal (LTG) Pt to stand independently for 2 minutes LTG Duration 02/15/18 Five Impairment Gait tolerance Planograph Operator Goal (LTG) Pt to tolerate 1000' ambulation without rest using 4WW LTG Duration 02/15/18 - Improving Four Impairment Foot slap Short Term Goal (STG) Pt to regularly wear R AFO to limit foot drop and help normalize gait pattern STG Duration Goal Met Three Impairment Transfers Short Term Goal (STG) Pt to transfer independently from mat<->w/c with no assistive devices STG Duration Met Two Impairment Ankle weakness Longterm Goal (LTG) Pt to display 2/5 MMT in R DF, 4/5 MMT in R PF, and 4+/5 MMT in all other bilateral ankle movements LTG Duration 02/15/18 - Improving One Impairment Activity tolerance Longterm Goal (LTG) Pt to tolerate activity up to 15 minutes without a break LTG Duration 02/15/18 Progress Towards Goals Progress Towards Goals Progressing Toward Goals Slow Progress due to Activity Tolerance Slow Progress due to Medical Issues Assessment Summary Assessment Pt again breathing a little more heavily today, increased complaints of fatigue, but performed his TherEx with no issues. Physical Therapy Plan Frequency and Duration Frequency of Treatment 2x/Week Duration of Treatment 12 weeks Plan of Care Start Date 01/05/18 Plan of Care End Date 03/30/18 Therapeutic Interventions Therapeutic Interventions Aquatic Therapy Balance Training Gait Training Home Exercise Program Manual Therapy Neuromuscular Re-education Soft Tissue Mobilization Therapeutic Activities Therapeutic Exercises Next Visit Focus/Plan Next Note Type Treatment Note Next Visit Plan Continue current POC
--- NOTE | 2018-02-02 10:27 | PT.OTN ---
Current Diagnoses Foot drop, right foot (02/02/18) Muscle weakness (generalized) (02/02/18) Unsteadiness on feet (02/02/18) Unspecified abnormalities of gait and mobility (02/02/18) Traumatic subdural hemorrhage with loss of consciousness greater than 24 hours with return to pre-existing conscious level, subsequent encounter (02/02/18) History of falling (02/02/18) Physical Therapy Treatment Note PT-OP-A Visit Information Start: 09/28/17 15:21 Freq: Status: Active Protocol: Document 02/02/18 09:45 DCW (Rec: 02/02/18 10:26 DCW [id number]) Out-Patient Physical Therapy Visit Information Visit Information Visit Type Treatment Note Visit Start Time 09:45 Visit Stop Time 10:30 Total Visit Minutes 45 Visit Number 45 Number of SENIOR BUYER Visits 0 Evaluation Information Evaluation Date 07/27/17 PT-OP-B Current Condition Start: 09/28/17 15:21 Freq: Status: Active Protocol: Document 10/12/17 13:45 DCW (Rec: 10/12/17 18:33 DCW [id number]) Current Condition History of Current Condition Onset Date 02/05/17 History of Current Condition See Pt's initial evaluation in Therapy Source Current Functional Impairments (Reported) Functional Limitations- Mobility/Gait Transfers:W/C<->Mat Stand- pivot: Independent PT-OP-C Subjective Start: 09/28/17 15:21 Freq: Status: Active Protocol: Document 02/02/18 09:45 DCW (Rec: 02/02/18 10:26 DCW [id number]) OP-PT Subjective Patient Comments Patient Comments Pt reports feeling a little shakey today. PT-OP-D Balance Start: 10/12/17 18:11 Freq: Status: Active Protocol: Document 01/05/18 14:30 DCW (Rec: 01/05/18 15:06 DCW [id number]) OP-PT Balance Assessment Standing Balance Standing Balance Comments Double leg, Eyes open: Donis Balance Assessment Evaluation Sitting to Standing Ability Independent w/Hands Unsupported Stance Several Tries, 30 seconds Sitting Unsupported, Feet on Floor Safely- 2 minutes Standing to Sitting Ability Independent, Uncontrolled Transfer Ability Safely, Hand Use Unsupported Stance- Eyes Closed Safely, With Eyes Open Unsupported Stance- Eyes Open Assist to attain, 15 secs Reaching Forward Standing Safely, 2 inches Pick- Up Object From Floor Requires Assistance Look Behind Shoulder - Standing Assist to Prevent Fall Turning 360 Degrees Requires Assistance Unsupported Stance, Alternating Feet on Assist to Prevent Fall Stair Unsupported Tandem Stance Balance Lost- Step/Stand Unilateral Leg Stance Unable,assist to not fall Total Score Donis Total Score (out of 56 points) 16 Donis Impairment Rating 60 to 79% Impaired (Score 12- 22) Mejia Fall Scale Copyright Permission Roberto JM, Roberto RM, Mark SJ. Development of a scale to identify the fall- prone patient. Can J Aging 1989;8;366-7. Catrachita Mejia (2009). Preventing patient falls. (2nd ed). [place]: Marquis. PT-OP-E Functional Tests Start: 10/12/17 18:11 Freq: Status: Active Protocol: Document 01/05/18 14:30 DCW (Rec: 01/05/18 15:06 DCW [id number]) Functional Tests 6 Minute Walk Test Distance 690' Device Used 4WW PT-OP-M Strength Start: 10/12/17 18:11 Freq: Status: Active Protocol: Document 01/05/18 14:30 DCW (Rec: 01/05/18 15:06 DCW [id number]) Hip Strength Hip Manual Muscle Testing Right Flexion (L2) 5 Normal Abduction 5 Normal Adduction 5 Normal Left Flexion (L2) 4+ Good+ Abduction 5 Normal Adduction 5 Normal Knee Strength Knee Manual Muscle Testing Right Flexion (S2) 5 Normal Extension (L3) 5 Normal Left Flexion (S2) 4+ Good+ Extension (L3) 5 Normal Ankle/Foot Strength Ankle and Foot Manual Muscle Testing Right Dorsiflexion (L4) 2- Poor- Plantarflexion (S1) 3+ Fair+ Left Dorsiflexion (L4) 4+ Good+ Plantarflexion (S1) 5 Normal PT-OP-Q Treatments Start: 09/28/17 15:21 Freq: Status: Active Protocol: Document 02/02/18 09:45 DCW (Rec: 02/02/18 10:26 DCW [id number]) Gym Equipment Shuttle Recovery Bilateral Heel Raises Resistance 112# Shuttle Recovery Platform Stable Reps/Time x60 Unilateral Squats Resistance 87# Shuttle Recovery Platform Stable Reps/Time x20 Bilateral Squats Resistance 150# Shuttle Recovery Platform Stable Reps/Time x30 Shuttle Balance 1 Details Yellow - Wide WILIAN Gait Training Gait Activity 3 Device Used 4WW Level of Assistance SBA Distance/Duration 930' Treatment Focus Increased gait distance/ tolerance Comments v/c for proper breathing, joan Neuro Re-Education Treatment Balance Activities 4 Details Side-stepping /c hurdles/foam in // bars 3 Details Hurdles/Foam in // bars Equipment Hurdles, Foam, // bars, 5# ankle weights PT-OP-T Assessment and Plan Start: 09/28/17 15:21 Freq: Status: Active Protocol: Document 02/02/18 09:45 DCW (Rec: 02/02/18 10:26 DCW [id number]) Physical Therapy Assessment Impairments Impairments Activity Tolerance Balance Functional Activities Functional Mobility Gait ROM Strength Goals Seven Impairment Donis Ceramist Goal (LTG) Pt to score 22/56 on Donis Balance scale LTG Duration 02/15/18 Six Impairment Static Standing Balance Short Term Goal (STG) Pt to hold double leg balance with eyes open on a firm surface for 60 seconds STG Duration Met Ceramist Goal (LTG) Pt to stand independently for 2 minutes LTG Duration 02/15/18 Five Impairment Gait tolerance Ceramist Goal (LTG) Pt to tolerate 1000' ambulation without rest using 4WW LTG Duration 02/15/18 - Improving Four Impairment Foot slap Short Term Goal (STG) Pt to regularly wear R AFO to limit foot drop and help normalize gait pattern STG Duration Goal Met Three Impairment Transfers Short Term Goal (STG) Pt to transfer independently from mat<->w/c with no assistive devices STG Duration Met Two Impairment Ankle weakness Residential Goal (LTG) Pt to display 2/5 MMT in R DF, 4/5 MMT in R PF, and 4+/5 MMT in all other bilateral ankle movements LTG Duration 02/15/18 - Improving One Impairment Activity tolerance Residential Goal (LTG) Pt to tolerate activity up to 15 minutes without a break LTG Duration 02/15/18 Progress Towards Goals Progress Towards Goals Progressing Toward Goals Slow Progress due to Activity Tolerance Slow Progress due to Medical Issues Assessment Summary Assessment Pt did well today, less effort required to get through his TherEx, and looked excellent walking a full five laps around the gym. Physical Therapy Plan Frequency and Duration Frequency of Treatment 2x/Week Duration of Treatment 12 weeks Plan of Care Start Date 01/05/18 Plan of Care End Date 03/30/18 Therapeutic Interventions Therapeutic Interventions Aquatic Therapy Balance Training Gait Training Home Exercise Program Manual Therapy Neuromuscular Re-education Soft Tissue Mobilization Therapeutic Activities Therapeutic Exercises Next Visit Focus/Plan Next Note Type Treatment Note Next Visit Plan Continue current POC
--- NOTE | 2018-02-04 10:23 | PT.OTN ---
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 with return to pre-existing conscious level, subsequent encounter (02/04/18) History of falling (02/04/18) Physical Therapy Treatment Note PT-OP-A Visit Information Start: 09/28/17 15:21 Freq: Status: Active Protocol: Document 02/04/18 09:45 DCW (Rec: 02/04/18 10:23 DCW [id number]) Out-Patient Physical Therapy Visit Information Visit Information Visit Type Treatment Note Visit Start Time 09:45 Visit Stop Time 10:30 Total Visit Minutes 45 Visit Number 46 Number of OFFICE SERVICES CLERK Visits 0 Evaluation Information Evaluation Date 07/27/17 PT-OP-B Current Condition Start: 09/28/17 15:21 Freq: Status: Active Protocol: Document 10/12/17 13:45 DCW (Rec: 10/12/17 18:33 DCW [id number]) Current Condition History of Current Condition Onset Date 02/05/17 History of Current Condition See Pt's initial evaluation in Therapy Source Current Functional Impairments (Reported) Functional Limitations- Mobility/Gait Transfers:W/C<->Mat Stand- pivot: Independent PT-OP-C Subjective Start: 09/28/17 15:21 Freq: Status: Active Protocol: Document 02/04/18 09:45 DCW (Rec: 02/04/18 10:23 DCW [id number]) OP-PT Subjective Patient Comments Patient Comments Pt arrived today with dressings on his nose and left cheek from another dematology appointment yesterday, and the tandem mill sticker requested again that her take it easy in therapy for about a week. PT-OP-D Balance Start: 10/12/17 18:11 Freq: Status: Active Protocol: Document 01/05/18 14:30 DCW (Rec: 01/05/18 15:06 DCW [id number]) OP-PT Balance Assessment Standing Balance Standing Balance Comments Double leg, Eyes open: Donis Balance Assessment Evaluation Sitting to Standing Ability Independent w/Hands Unsupported Stance Several Tries, 30 seconds Sitting Unsupported, Feet on Floor Safely- 2 minutes Standing to Sitting Ability Independent, Uncontrolled Transfer Ability Safely, Hand Use Unsupported Stance- Eyes Closed Safely, With Eyes Open Unsupported Stance- Eyes Open Assist to attain, 15 secs Reaching Forward Standing Safely, 2 inches Pick- Up Object From Floor Requires Assistance Look Behind Shoulder - Standing Assist to Prevent Fall Turning 360 Degrees Requires Assistance Unsupported Stance, Alternating Feet on Assist to Prevent Fall Stair Unsupported Tandem Stance Balance Lost- Step/Stand Unilateral Leg Stance Unable,assist to not fall Total Score Donis Total Score (out of 56 points) 16 Donis Impairment Rating 60 to 79% Impaired (Score 12- 22) Mejia Fall Scale Copyright Permission Roberto KELLY, Roberto RM, Mark SJ. Development of a scale to identify the fall- prone patient. Can J Aging 1989;8;366-7. Catrachita Mejia (2009). Preventing patient falls. (2nd ed). [place]: Marquis. PT-OP-E Functional Tests Start: 10/12/17 18:11 Freq: Status: Active Protocol: Document 01/05/18 14:30 DCW (Rec: 01/05/18 15:06 DCW [id number]) Functional Tests 6 Minute Walk Test Distance 690' Device Used 4WW PT-OP-M Strength Start: 10/12/17 18:11 Freq: Status: Active Protocol: Document 01/05/18 14:30 DCW (Rec: 01/05/18 15:06 DCW [id number]) Hip Strength Hip Manual Muscle Testing Right Flexion (L2) 5 Normal Abduction 5 Normal Adduction 5 Normal Left Flexion (L2) 4+ Good+ Abduction 5 Normal Adduction 5 Normal Knee Strength Knee Manual Muscle Testing Right Flexion (S2) 5 Normal Extension (L3) 5 Normal Left Flexion (S2) 4+ Good+ Extension (L3) 5 Normal Ankle/Foot Strength Ankle and Foot Manual Muscle Testing Right Dorsiflexion (L4) 2- Poor- Plantarflexion (S1) 3+ Fair+ Left Dorsiflexion (L4) 4+ Good+ Plantarflexion (S1) 5 Normal PT-OP-Q Treatments Start: 09/28/17 15:21 Freq: Status: Active Protocol: Document 02/04/18 09:45 DCW (Rec: 02/04/18 10:23 DCW [id number]) Gym Equipment Shuttle Recovery Bilateral Heel Raises Resistance 112# Shuttle Recovery Platform Stable Reps/Time x60 Unilateral Squats Resistance 87# Shuttle Recovery Platform Stable Reps/Time x20 Bilateral Squats Resistance 150# Shuttle Recovery Platform Stable Reps/Time x30 Gait Training Gait Activity 1 Device Used SPC Level of Assistance Min Ax1 Surface Level Distance/Duration 100' x1, 50' x8 PT-OP-T Assessment and Plan Start: 09/28/17 15:21 Freq: Status: Active Protocol: Document 02/04/18 09:45 DCW (Rec: 02/04/18 10:23 DCW [id number]) Physical Therapy Assessment Impairments Impairments Activity Tolerance Balance Functional Activities Functional Mobility Gait ROM Strength Goals Seven Impairment Donis Leather Stripping Machine Operator Goal (LTG) Pt to score 22/56 on Donis Balance scale LTG Duration 02/15/18 Six Impairment Static Standing Balance Short Term Goal (STG) Pt to hold double leg balance with eyes open on a firm surface for 60 seconds STG Duration Met Intermediate Goal (LTG) Pt to stand independently for 2 minutes LTG Duration 02/15/18 Five Impairment Gait tolerance Intermediate Goal (LTG) Pt to tolerate 1000' ambulation without rest using 4WW LTG Duration 02/15/18 - Improving Four Impairment Foot slap Short Term Goal (STG) Pt to regularly wear R AFO to limit foot drop and help normalize gait pattern STG Duration Goal Met Three Impairment Transfers Short Term Goal (STG) Pt to transfer independently from mat<->w/c with no assistive devices STG Duration Met Two Impairment Ankle weakness Leather Stripping Machine Operator Goal (LTG) Pt to display 2/5 MMT in R DF, 4/5 MMT in R PF, and 4+/5 MMT in all other bilateral ankle movements LTG Duration 02/15/18 - Improving One Impairment Activity tolerance Leather Stripping Machine Operator Goal (LTG) Pt to tolerate activity up to 15 minutes without a break LTG Duration 02/15/18 Progress Towards Goals Progress Towards Goals Progressing Toward Goals Slow Progress due to Activity Tolerance Slow Progress due to Medical Issues Assessment Summary Assessment Pt did well with his reduced workload today, struggled with his first few SPC ambulation attempts, but with increased practice, began to walk more smoothly. Physical Therapy Plan Frequency and Duration Frequency of Treatment 2x/Week Duration of Treatment 12 weeks Plan of Care Start Date 01/05/18 Plan of Care End Date 03/30/18 Therapeutic Interventions Therapeutic Interventions Aquatic Therapy Balance Training Gait Training Home Exercise Program Manual Therapy Neuromuscular Re-education Soft Tissue Mobilization Therapeutic Activities Therapeutic Exercises Next Visit Focus/Plan Next Note Type Progress Note Next Visit Plan New G-codes
--- NOTE | 2018-02-07 10:31 | PT.OTN ---
Current Diagnoses Foot drop, right foot (02/07/18) Muscle weakness (generalized) (02/07/18) Unsteadiness on feet (02/07/18) Unspecified abnormalities of gait and mobility (02/07/18) Traumatic subdural hemorrhage with loss of consciousness greater than 24 hours with return to pre-existing conscious level, subsequent encounter (02/07/18) History of falling (02/07/18) Physical Therapy Treatment Note PT-OP-A Visit Information Start: 09/28/17 15:21 Freq: Status: Active Protocol: Document 02/07/18 09:45 DCW (Rec: 02/07/18 10:31 DCW [id number]) Out-Patient Physical Therapy Visit Information Visit Information Visit Type Progress Note Visit Start Time 09:45 Visit Stop Time 10:30 Total Visit Minutes 45 Visit Number 47 Number of RN PICU Visits 0 Evaluation Information Evaluation Date 07/27/17 PT-OP-B Current Condition Start: 09/28/17 15:21 Freq: Status: Active Protocol: Document 10/12/17 13:45 DCW (Rec: 10/12/17 18:33 DCW [id number]) Current Condition History of Current Condition Onset Date 02/05/17 History of Current Condition See Pt's initial evaluation in Therapy Source Current Functional Impairments (Reported) Functional Limitations- Mobility/Gait Transfers:W/C<->Mat Stand- pivot: Independent PT-OP-C Subjective Start: 09/28/17 15:21 Freq: Status: Active Protocol: Document 02/07/18 09:45 DCW (Rec: 02/07/18 10:31 DCW [id number]) OP-PT Subjective Patient Comments Patient Comments Pt feeling well today, but worried about his insurance stopping therapy. I just want to keep coming as long as I can. PT-OP-D Balance Start: 10/12/17 18:11 Freq: Status: Active Protocol: Document 01/05/18 14:30 DCW (Rec: 01/05/18 15:06 DCW [id number]) OP-PT Balance Assessment Standing Balance Standing Balance Comments Double leg, Eyes open: 1'24 Donis Balance Assessment Evaluation Sitting to Standing Ability Independent w/Hands Unsupported Stance Several Tries, 30 seconds Sitting Unsupported, Feet on Floor Safely- 2 minutes Standing to Sitting Ability Independent, Uncontrolled Transfer Ability Safely, Hand Use Unsupported Stance- Eyes Closed Safely, With Eyes Open Unsupported Stance- Eyes Open Assist to attain, 15 secs Reaching Forward Standing Safely, 2 inches Pick- Up Object From Floor Requires Assistance Look Behind Shoulder - Standing Assist to Prevent Fall Turning 360 Degrees Requires Assistance Unsupported Stance, Alternating Feet on Assist to Prevent Fall Stair Unsupported Tandem Stance Balance Lost- Step/Stand Unilateral Leg Stance Unable,assist to not fall Total Score Donis Total Score (out of 56 points) 16 Donis Impairment Rating 60 to 79% Impaired (Score 12- 22) Mejia Fall Scale Copyright Permission Roberto KELLY, Roberto RM, Mark SJ. Development of a scale to identify the fall- prone patient. Can J Aging 1989;8;366-7. Catrachita Mejia (2009). Preventing patient falls. (2nd ed). [place]: Marquis. PT-OP-E Functional Tests Start: 10/12/17 18:11 Freq: Status: Active Protocol: Document 01/05/18 14:30 DCW (Rec: 01/05/18 15:06 DCW [id number]) Functional Tests 6 Minute Walk Test Distance 690' Device Used 4WW PT-OP-M Strength Start: 10/12/17 18:11 Freq: Status: Active Protocol: Document 01/05/18 14:30 DCW (Rec: 01/05/18 15:06 DCW [id number]) Hip Strength Hip Manual Muscle Testing Right Flexion (L2) 5 Normal Abduction 5 Normal Adduction 5 Normal Left Flexion (L2) 4+ Good+ Abduction 5 Normal Adduction 5 Normal Knee Strength Knee Manual Muscle Testing Right Flexion (S2) 5 Normal Extension (L3) 5 Normal Left Flexion (S2) 4+ Good+ Extension (L3) 5 Normal Ankle/Foot Strength Ankle and Foot Manual Muscle Testing Right Dorsiflexion (L4) 2- Poor- Plantarflexion (S1) 3+ Fair+ Left Dorsiflexion (L4) 4+ Good+ Plantarflexion (S1) 5 Normal PT-OP-Q Treatments Start: 09/28/17 15:21 Freq: Status: Active Protocol: Document 02/07/18 09:45 DCW (Rec: 02/07/18 10:31 DCW [id number]) Gym Equipment Shuttle Recovery Bilateral Heel Raises Resistance 112# Shuttle Recovery Platform Stable Reps/Time x60 Unilateral Squats Resistance 87# Shuttle Recovery Platform Stable Reps/Time x20 Bilateral Squats Resistance 150# Shuttle Recovery Platform Stable Reps/Time x30 Gait Training Gait Activity 1 Device Used SPC Level of Assistance Min Ax1 Surface Level Distance/Duration 170' x1, 50' x8 PT-OP-T Assessment and Plan Start: 09/28/17 15:21 Freq: Status: Active Protocol: Document 02/07/18 09:45 DCW (Rec: 02/07/18 10:31 DCW [id number]) Physical Therapy Assessment Impairments Impairments Activity Tolerance Balance Functional Activities Functional Mobility Gait ROM Strength Goals Seven Impairment Donis Demonstrator Electric [employer] Appliances Goal (LTG) Pt to score 22/56 on Donis Balance scale LTG Duration 02/15/18 Six Impairment Static Standing Balance Short Term Goal (STG) Pt to hold double leg balance with eyes open on a firm surface for 60 seconds STG Duration Met Care Home Goal (LTG) Pt to stand independently for 2 minutes LTG Duration 02/15/18 Five Impairment Gait tolerance Care Home Goal (LTG) Pt to tolerate 1000' ambulation without rest using 4WW LTG Duration 02/15/18 - Improving Four Impairment Foot slap Short Term Goal (STG) Pt to regularly wear R AFO to limit foot drop and help normalize gait pattern STG Duration Goal Met Three Impairment Transfers Short Term Goal (STG) Pt to transfer independently from mat<->w/c with no assistive devices STG Duration Met Two Impairment Ankle weakness Demonstrator [employer] Appliances Goal (LTG) Pt to display 2/5 MMT in R DF, 4/5 MMT in R PF, and 4+/5 MMT in all other bilateral ankle movements LTG Duration 02/15/18 - Improving One Impairment Activity tolerance Demonstrator [employer]iances Goal (LTG) Pt to tolerate activity up to 15 minutes without a break LTG Duration 02/15/18 Progress Towards Goals Progress Towards Goals Progressing Toward Goals Slow Progress due to Activity Tolerance Slow Progress due to Medical Issues Assessment Summary Assessment Pt did very well today with cane ambulation, required fewer instructions and support , SBA for most of his laps. 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
--- NOTE | 2018-02-10 10:31 | PT.OTN ---
Current Diagnoses Foot drop, right foot (02/10/18) Muscle weakness (generalized) (02/10/18) Unsteadiness on feet (02/10/18) Unspecified abnormalities of gait and mobility (02/10/18) Traumatic subdural hemorrhage with loss of consciousness greater than 24 hours with return to pre-existing conscious level, subsequent encounter (02/10/18) History of falling (02/10/18) Physical Therapy Treatment Note PT-OP-A Visit Information Start: 09/28/17 15:21 Freq: Status: Active Protocol: Document 02/10/18 09:45 DCW (Rec: 02/10/18 10:31 DCW [id number]) Out-Patient Physical Therapy Visit Information Visit Information Visit Type Treatment Note Visit Start Time 09:45 Visit Stop Time 10:30 Total Visit Minutes 45 Visit Number 48 Number of SPECIAL PROCEDURES TECH Visits 0 Evaluation Information Evaluation Date 07/27/17 PT-OP-B Current Condition Start: 09/28/17 15:21 Freq: Status: Active Protocol: Document 10/12/17 13:45 DCW (Rec: 10/12/17 18:33 DCW [id number]) Current Condition History of Current Condition Onset Date 02/05/17 History of Current Condition See Pt's initial evaluation in Therapy Source Current Functional Impairments (Reported) Functional Limitations- Mobility/Gait Transfers:W/C<->Mat Stand- pivot: Independent PT-OP-C Subjective Start: 09/28/17 15:21 Freq: Status: Active Protocol: Document 02/10/18 09:45 DCW (Rec: 02/10/18 10:31 DCW [id number]) OP-PT Subjective Patient Comments Patient Comments Pt notes he is doing well today, feels up to pushing it a little more after taking it easy over the last week following his skin cancer removal at dermotology. PT-OP-D Balance Start: 10/12/17 18:11 Freq: Status: Active Protocol: Document 01/05/18 14:30 DCW (Rec: 01/05/18 15:06 DCW [id number]) OP-PT Balance Assessment Standing Balance Standing Balance Comments Double leg, Eyes open: 1 Donis Balance Assessment Evaluation Sitting to Standing Ability Independent w/Hands Unsupported Stance Several Tries, 30 seconds Sitting Unsupported, Feet on Floor Safely- 2 minutes Standing to Sitting Ability Independent, Uncontrolled Transfer Ability Safely, Hand Use Unsupported Stance- Eyes Closed Safely, With Eyes Open Unsupported Stance- Eyes Open Assist to attain, 15 secs Reaching Forward Standing Safely, 2 inches Pick- Up Object From Floor Requires Assistance Look Behind Shoulder - Standing Assist to Prevent Fall Turning 360 Degrees Requires Assistance Unsupported Stance, Alternating Feet on Assist to Prevent Fall Stair Unsupported Tandem Stance Balance Lost- Step/Stand Unilateral Leg Stance Unable,assist to not fall Total Score Donis Total Score (out of 56 points) 16 Donis Impairment Rating 60 to 79% Impaired (Score 12- 22) Mejia Fall Scale Copyright Permission Roberto KELLY, Roberto RM, Mark SJ. Development of a scale to identify the fall- prone patient. Can J Aging 1989;8;366-7. Catrachita Mejia (2009). Preventing patient falls. (2nd ed). [place]: Marquis. PT-OP-E Functional Tests Start: 10/12/17 18:11 Freq: Status: Active Protocol: Document 01/05/18 14:30 DCW (Rec: 01/05/18 15:06 DCW [id number]) Functional Tests 6 Minute Walk Test Distance 690' Device Used 4WW PT-OP-M Strength Start: 10/12/17 18:11 Freq: Status: Active Protocol: Document 01/05/18 14:30 DCW (Rec: 01/05/18 15:06 DCW [id number]) Hip Strength Hip Manual Muscle Testing Right Flexion (L2) 5 Normal Abduction 5 Normal Adduction 5 Normal Left Flexion (L2) 4+ Good+ Abduction 5 Normal Adduction 5 Normal Knee Strength Knee Manual Muscle Testing Right Flexion (S2) 5 Normal Extension (L3) 5 Normal Left Flexion (S2) 4+ Good+ Extension (L3) 5 Normal Ankle/Foot Strength Ankle and Foot Manual Muscle Testing Right Dorsiflexion (L4) 2- Poor- Plantarflexion (S1) 3+ Fair+ Left Dorsiflexion (L4) 4+ Good+ Plantarflexion (S1) 5 Normal PT-OP-Q Treatments Start: 09/28/17 15:21 Freq: Status: Active Protocol: Document 02/10/18 09:45 DCW (Rec: 02/10/18 10:31 DCW [id number]) Gym Equipment Shuttle Recovery Bilateral Heel Raises Resistance 112# Shuttle Recovery Platform Stable Reps/Time x60 Unilateral Squats Resistance 87# Shuttle Recovery Platform Stable Reps/Time x20 Bilateral Squats Resistance 150# Shuttle Recovery Platform Stable Reps/Time x30 Shuttle Balance 1 Details Yellow - Wide WILIAN Therapeutic Exercises Other Exercises 1 Other Exercise Name Resisted Side-stepping Side bilateral Resistance Yellow Equipment Used T-band Gait Training Gait Activity 3 Device Used 4WW Level of Assistance SBA Distance/Duration 760' Treatment Focus Increased gait distance/ tolerance Comments v/c for proper breathing, joan PT-OP-T Assessment and Plan Start: 09/28/17 15:21 Freq: Status: Active Protocol: Document 02/10/18 09:45 DCW (Rec: 02/10/18 10:31 DCW [id number]) Physical Therapy Assessment Impairments Impairments Activity Tolerance Balance Functional Activities Functional Mobility Gait ROM Strength Goals Seven Impairment Donis Watch Parts Grinder Goal (LTG) Pt to score 22/56 on Donis Balance scale LTG Duration 02/15/18 Six Impairment Static Standing Balance Short Term Goal (STG) Pt to hold double leg balance with eyes open on a firm surface for 60 seconds STG Duration Met Detention Goal (LTG) Pt to stand independently for 2 minutes LTG Duration 02/15/18 Five Impairment Gait tolerance Detention Goal (LTG) Pt to tolerate 1000' ambulation without rest using 4WW LTG Duration 02/15/18 - Improving Four Impairment Foot slap Short Term Goal (STG) Pt to regularly wear R AFO to limit foot drop and help normalize gait pattern STG Duration Goal Met Three Impairment Transfers Short Term Goal (STG) Pt to transfer independently from mat<->w/c with no assistive devices STG Duration Met Two Impairment Ankle weakness Detention Goal (LTG) Pt to display 2/5 MMT in R DF, 4/5 MMT in R PF, and 4+/5 MMT in all other bilateral ankle movements LTG Duration 02/15/18 - Improving One Impairment Activity tolerance Watch Parts Grinder Goal (LTG) Pt to tolerate activity up to 15 minutes without a break LTG Duration 02/15/18 Progress Towards Goals Progress Towards Goals Progressing Toward Goals Slow Progress due to Activity Tolerance Slow Progress due to Medical Issues Assessment Summary Assessment Pt gait distance decreased from his last full-effort therapy session, however he performed much better than usual on the shuttle balance. Physical Therapy Plan Frequency and Duration Frequency of Treatment 2x/Week Duration of Treatment 12 weeks Plan of Care Start Date 01/05/18 Plan of Care End Date 03/30/18 Therapeutic Interventions Therapeutic Interventions Aquatic Therapy Balance Training Gait Training Home Exercise Program Manual Therapy Neuromuscular Re-education Soft Tissue Mobilization Therapeutic Activities Therapeutic Exercises Next Visit Focus/Plan Next Note Type Treatment Note Next Visit Plan Continue current POC
--- NOTE | 2018-02-15 13:33 | PT.OTN ---
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 with return to pre-existing conscious level, subsequent encounter (02/15/18) History of falling (02/15/18) Physical Therapy Treatment Note PT-OP-A Visit Information Start: 09/28/17 15:21 Freq: Status: Active Protocol: Document 02/15/18 10:30 DCW (Rec: 02/15/18 13:33 DCW [id number]) Out-Patient Physical Therapy Visit Information Visit Information Visit Type Treatment Note Visit Start Time 10:30 Visit Stop Time 11:15 Total Visit Minutes 45 Visit Number 49 Number of SELF RISING FLOUR MIXER Visits 0 Evaluation Information Evaluation Date 07/27/17 PT-OP-B Current Condition Start: 09/28/17 15:21 Freq: Status: Active Protocol: Document 10/12/17 13:45 DCW (Rec: 10/12/17 18:33 DCW [id number]) Current Condition History of Current Condition Onset Date 02/05/17 History of Current Condition See Pt's initial evaluation in Therapy Source Current Functional Impairments (Reported) Functional Limitations- Mobility/Gait Transfers:W/C<->Mat Stand- pivot: Independent PT-OP-C Subjective Start: 09/28/17 15:21 Freq: Status: Active Protocol: Document 02/15/18 10:30 DCW (Rec: 02/15/18 13:33 DCW [id number]) OP-PT Subjective Patient Comments Patient Comments Pt reports he is feeling great today. PT-OP-D Balance Start: 10/12/17 18:11 Freq: Status: Active Protocol: Document 01/05/18 14:30 DCW (Rec: 01/05/18 15:06 DCW [id number]) OP-PT Balance Assessment Standing Balance Standing Balance Comments Double leg, Eyes open: Donis Balance Assessment Evaluation Sitting to Standing Ability Independent w/Hands Unsupported Stance Several Tries, 30 seconds Sitting Unsupported, Feet on Floor Safely- 2 minutes Standing to Sitting Ability Independent, Uncontrolled Transfer Ability Safely, Hand Use Unsupported Stance- Eyes Closed Safely, With Eyes Open Unsupported Stance- Eyes Open Assist to attain, 15 secs Reaching Forward Standing Safely, 2 inches Pick- Up Object From Floor Requires Assistance Look Behind Shoulder - Standing Assist to Prevent Fall Turning 360 Degrees Requires Assistance Unsupported Stance, Alternating Feet on Assist to Prevent Fall Stair Unsupported Tandem Stance Balance Lost- Step/Stand Unilateral Leg Stance Unable,assist to not fall Total Score Donis Total Score (out of 56 points) 16 Donis Impairment Rating 60 to 79% Impaired (Score 12- 22) Roberto Fall Scale Copyright Permission Roberto JM, Roberto RM, Mark SJ. Development of a scale to identify the fall- prone patient. Can J Aging 1989;8;366-7. Catrachita Mejia (2009). Preventing patient falls. (2nd ed). [place]: Marquis. PT-OP-E Functional Tests Start: 10/12/17 18:11 Freq: Status: Active Protocol: Document 01/05/18 14:30 DCW (Rec: 01/05/18 15:06 DCW [id number]) Functional Tests 6 Minute Walk Test Distance 690' Device Used 4WW PT-OP-M Strength Start: 10/12/17 18:11 Freq: Status: Active Protocol: Document 01/05/18 14:30 DCW (Rec: 01/05/18 15:06 DCW [id number]) Hip Strength Hip Manual Muscle Testing Right Flexion (L2) 5 Normal Abduction 5 Normal Adduction 5 Normal Left Flexion (L2) 4+ Good+ Abduction 5 Normal Adduction 5 Normal Knee Strength Knee Manual Muscle Testing Right Flexion (S2) 5 Normal Extension (L3) 5 Normal Left Flexion (S2) 4+ Good+ Extension (L3) 5 Normal Ankle/Foot Strength Ankle and Foot Manual Muscle Testing Right Dorsiflexion (L4) 2- Poor- Plantarflexion (S1) 3+ Fair+ Left Dorsiflexion (L4) 4+ Good+ Plantarflexion (S1) 5 Normal PT-OP-Q Treatments Start: 09/28/17 15:21 Freq: Status: Active Protocol: Document 02/15/18 10:30 DCW (Rec: 02/15/18 13:33 DCW [id number]) Gym Equipment Shuttle Recovery Bilateral Heel Raises Resistance 112# Shuttle Recovery Platform Stable Reps/Time x60 Unilateral Squats Resistance 87# Shuttle Recovery Platform Stable Reps/Time x20 Bilateral Squats Resistance 150# Shuttle Recovery Platform Stable Reps/Time x30 Shuttle Balance 1 Details Yellow - Wide WILIAN Therapeutic Exercises Other Exercises 1 Other Exercise Name Resisted Side-stepping Side bilateral Resistance Yellow Equipment Used T-band Gait Training Gait Activity 3 Device Used 4WW Level of Assistance SBA Distance/Duration 930' Treatment Focus Increased gait distance/ tolerance Comments v/c for proper breathing, joan Neuro Re-Education Treatment Balance Activities 4 Details Side-stepping /c hurdles/foam at rail 3 Details Hurdles/Foam at rail Equipment Hurdles, Foam PT-OP-T Assessment and Plan Start: 09/28/17 15:21 Freq: Status: Active Protocol: Document 02/15/18 10:30 DCW (Rec: 02/15/18 13:33 DCW [id number]) Physical Therapy Assessment Impairments Impairments Activity Tolerance Balance Functional Activities Functional Mobility Gait ROM Strength Goals Seven Impairment Donis Structural Steel Worker Helper Goal (LTG) Pt to score 22/56 on Donis Balance scale LTG Duration 02/15/18 Six Impairment Static Standing Balance Short Term Goal (STG) Pt to hold double leg balance with eyes open on a firm surface for 60 seconds STG Duration Met Structural Steel Worker Helper Goal (LTG) Pt to stand independently for 2 minutes LTG Duration 02/15/18 Five Impairment Gait tolerance Fdc Goal (LTG) Pt to tolerate 1000' ambulation without rest using 4WW LTG Duration 02/15/18 - Improving Four Impairment Foot slap Short Term Goal (STG) Pt to regularly wear R AFO to limit foot drop and help normalize gait pattern STG Duration Goal Met Three Impairment Transfers Short Term Goal (STG) Pt to transfer independently from mat<->w/c with no assistive devices STG Duration Met Two Impairment Ankle weakness Fdc Goal (LTG) Pt to display 2/5 MMT in R DF, 4/5 MMT in R PF, and 4+/5 MMT in all other bilateral ankle movements LTG Duration 02/15/18 - Improving One Impairment Activity tolerance Fdc Goal (LTG) Pt to tolerate activity up to 15 minutes without a break LTG Duration 02/15/18 Progress Towards Goals Progress Towards Goals Progressing Toward Goals Slow Progress due to Activity Tolerance Slow Progress due to Medical Issues Assessment Summary Assessment Pt walked his 5 laps faster than normal, he reports feeling more energetic today. Physical Therapy Plan Frequency and Duration Frequency of Treatment 2x/Week Duration of Treatment 12 weeks Plan of Care Start Date 01/05/18 Plan of Care End Date 03/30/18 Therapeutic Interventions Therapeutic Interventions Aquatic Therapy Balance Training Gait Training Home Exercise Program Manual Therapy Neuromuscular Re-education Soft Tissue Mobilization Therapeutic Activities Therapeutic Exercises Next Visit Focus/Plan Next Note Type Treatment Note Next Visit Plan Continue current POC
--- NOTE | 2018-02-17 11:20 | PT.OTN ---
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 with return to pre-existing conscious level, subsequent encounter (02/17/18) History of falling (02/17/18) Physical Therapy Treatment Note PT-OP-A Visit Information Start: 09/28/17 15:21 Freq: Status: Active Protocol: Document 02/17/18 10:47 DCW (Rec: 02/17/18 11:20 DCW [id number]) Out-Patient Physical Therapy Visit Information Visit Information Visit Type Treatment Note Visit Start Time 10:30 Visit Stop Time 11:15 Total Visit Minutes 45 Visit Number 50 Number of BEEF CATTLE FARM WORKER Visits 0 Evaluation Information Evaluation Date 07/27/17 PT-OP-B Current Condition Start: 09/28/17 15:21 Freq: Status: Active Protocol: Document 10/12/17 13:45 DCW (Rec: 10/12/17 18:33 DCW [id number]) Current Condition History of Current Condition Onset Date 02/05/17 History of Current Condition See Pt's initial evaluation in Therapy Source Current Functional Impairments (Reported) Functional Limitations- Mobility/Gait Transfers:W/C<->Mat Stand- pivot: Independent PT-OP-C Subjective Start: 09/28/17 15:21 Freq: Status: Active Protocol: Document 02/17/18 10:47 DCW (Rec: 02/17/18 11:20 DCW [id number]) OP-PT Subjective Patient Comments Patient Comments Pt reports he is feeling a little more energetic than usual today. PT-OP-D Balance Start: 10/12/17 18:11 Freq: Status: Active Protocol: Document 01/05/18 14:30 DCW (Rec: 01/05/18 15:06 DCW [id number]) OP-PT Balance Assessment Standing Balance Standing Balance Comments Double leg, Eyes open: Donis Balance Assessment Evaluation Sitting to Standing Ability Independent w/Hands Unsupported Stance Several Tries, 30 seconds Sitting Unsupported, Feet on Floor Safely- 2 minutes Standing to Sitting Ability Independent, Uncontrolled Transfer Ability Safely, Hand Use Unsupported Stance- Eyes Closed Safely, With Eyes Open Unsupported Stance- Eyes Open Assist to attain, 15 secs Reaching Forward Standing Safely, 2 inches Pick- Up Object From Floor Requires Assistance Look Behind Shoulder - Standing Assist to Prevent Fall Turning 360 Degrees Requires Assistance Unsupported Stance, Alternating Feet on Assist to Prevent Fall Stair Unsupported Tandem Stance Balance Lost- Step/Stand Unilateral Leg Stance Unable,assist to not fall Total Score Donis Total Score (out of 56 points) 16 Donis Impairment Rating 60 to 79% Impaired (Score 12- 22) Roberto Fall Scale Copyright Permission oRberto JM, Roberto RM, Mark SJ. Development of a scale to identify the fall- prone patient. Can J Aging 1989;8;366-7. Catrachita Mejia (2009). Preventing patient falls. (2nd ed). [place]: Marquis. PT-OP-E Functional Tests Start: 10/12/17 18:11 Freq: Status: Active Protocol: Document 01/05/18 14:30 DCW (Rec: 01/05/18 15:06 DCW [id number]) Functional Tests 6 Minute Walk Test Distance 690' Device Used 4WW PT-OP-M Strength Start: 10/12/17 18:11 Freq: Status: Active Protocol: Document 01/05/18 14:30 DCW (Rec: 01/05/18 15:06 DCW [id number]) Hip Strength Hip Manual Muscle Testing Right Flexion (L2) 5 Normal Abduction 5 Normal Adduction 5 Normal Left Flexion (L2) 4+ Good+ Abduction 5 Normal Adduction 5 Normal Knee Strength Knee Manual Muscle Testing Right Flexion (S2) 5 Normal Extension (L3) 5 Normal Left Flexion (S2) 4+ Good+ Extension (L3) 5 Normal Ankle/Foot Strength Ankle and Foot Manual Muscle Testing Right Dorsiflexion (L4) 2- Poor- Plantarflexion (S1) 3+ Fair+ Left Dorsiflexion (L4) 4+ Good+ Plantarflexion (S1) 5 Normal PT-OP-Q Treatments Start: 09/28/17 15:21 Freq: Status: Active Protocol: Document 02/17/18 10:47 DCW (Rec: 02/17/18 11:20 DCW [id number]) Gym Equipment Shuttle Recovery Bilateral Heel Raises Resistance 112# Shuttle Recovery Platform Stable Reps/Time x60 Unilateral Squats Resistance 87# Shuttle Recovery Platform Stable Reps/Time x20 Bilateral Squats Resistance 150# Shuttle Recovery Platform Stable Reps/Time x30 Shuttle Balance 1 Details Yellow - Wide WILIAN Therapeutic Exercises Other Exercises 1 Other Exercise Name Resisted Side-stepping Side bilateral Resistance Yellow Equipment Used T-band Gait Training Gait Activity 3 Device Used 4WW Level of Assistance SBA Distance/Duration 1100' Treatment Focus Increased gait distance/ tolerance Comments v/c for proper breathing, joan Neuro Re-Education Treatment Balance Activities 4 Details Side-stepping /c hurdles/foam at rail 3 Details Hurdles/Foam at rail Equipment Hurdles, Foam PT-OP-T Assessment and Plan Start: 09/28/17 15:21 Freq: Status: Active Protocol: Document 02/17/18 10:47 DCW (Rec: 02/17/18 11:20 DCW [id number]) Physical Therapy Assessment Impairments Impairments Activity Tolerance Balance Functional Activities Functional Mobility Gait ROM Strength Goals Seven Impairment Donis Delivery Sales Worker Goal (LTG) Pt to score 22/56 on Donis Balance scale LTG Duration 02/15/18 Six Impairment Static Standing Balance Short Term Goal (STG) Pt to hold double leg balance with eyes open on a firm surface for 60 seconds STG Duration Met Delivery Sales Worker Goal (LTG) Pt to stand independently for 2 minutes LTG Duration 02/15/18 Five Impairment Gait tolerance Alf Goal (LTG) Pt to tolerate 1000' ambulation without rest using 4WW LTG Duration Met Four Impairment Foot slap Short Term Goal (STG) Pt to regularly wear R AFO to limit foot drop and help normalize gait pattern STG Duration Goal Met Three Impairment Transfers Short Term Goal (STG) Pt to transfer independently from mat<->w/c with no assistive devices STG Duration Met Two Impairment Ankle weakness Delivery Sales Worker Goal (LTG) Pt to display 2/5 MMT in R DF, 4/5 MMT in R PF, and 4+/5 MMT in all other bilateral ankle movements LTG Duration 02/15/18 - Improving One Impairment Activity tolerance Delivery Sales Worker Goal (LTG) Pt to tolerate activity up to 15 minutes without a break LTG Duration 02/15/18 Progress Towards Goals Progress Towards Goals Progressing Toward Goals Slow Progress due to Activity Tolerance Slow Progress due to Medical Issues Assessment Summary Assessment Pt ambulated more than 1,000 feet today without rest for the first time today, and still performed his remaining activities with minimal fatigue. Physical Therapy Plan Frequency and Duration Frequency of Treatment 2x/Week Duration of Treatment 12 weeks Plan of Care Start Date 01/05/18 Plan of Care End Date 03/30/18 Therapeutic Interventions Therapeutic Interventions Aquatic Therapy Balance Training Gait Training Home Exercise Program Manual Therapy Neuromuscular Re-education Soft Tissue Mobilization Therapeutic Activities Therapeutic Exercises Next Visit Focus/Plan Next Note Type Treatment Note Next Visit Plan Continue current POC
--- NOTE | 2018-03-02 12:03 | PT.OTN ---
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 greater than 24 hours with return to pre-existing conscious level, subsequent encounter (03/02/18) History of falling (03/02/18) Physical Therapy Treatment Note PT-OP-A Visit Information Start: 09/28/17 15:21 Freq: Status: Active Protocol: Document 03/02/18 11:15 DCW (Rec: 03/02/18 12:03 DCW [id number]) Out-Patient Physical Therapy Visit Information Visit Information Visit Type Treatment Note Visit Start Time 11:15 Visit Stop Time 12:00 Total Visit Minutes 45 Visit Number 51 Number of MAPLE SUGAR MAKER Visits 0 Evaluation Information Evaluation Date 07/27/17 PT-OP-B Current Condition Start: 09/28/17 15:21 Freq: Status: Active Protocol: Document 10/12/17 13:45 DCW (Rec: 10/12/17 18:33 DCW [id number]) Current Condition History of Current Condition Onset Date 02/05/17 History of Current Condition See Pt's initial evaluation in Therapy Source Current Functional Impairments (Reported) Functional Limitations- Mobility/Gait Transfers:W/C<->Mat Stand- pivot: Independent PT-OP-C Subjective Start: 09/28/17 15:21 Freq: Status: Active Protocol: Document 03/02/18 11:15 DCW (Rec: 03/02/18 12:03 DCW [id number]) OP-PT Subjective Patient Comments Patient Comments Pt doing well today, no complaints of fatigue PT-OP-D Balance Start: 10/12/17 18:11 Freq: Status: Active Protocol: Document 01/05/18 14:30 DCW (Rec: 01/05/18 15:06 DCW [id number]) OP-PT Balance Assessment Standing Balance Standing Balance Comments Double leg, Eyes open: Donis Balance Assessment Evaluation Sitting to Standing Ability Independent w/Hands Unsupported Stance Several Tries, 30 seconds Sitting Unsupported, Feet on Floor Safely- 2 minutes Standing to Sitting Ability Independent, Uncontrolled Transfer Ability Safely, Hand Use Unsupported Stance- Eyes Closed Safely, With Eyes Open Unsupported Stance- Eyes Open Assist to attain, 15 secs Reaching Forward Standing Safely, 2 inches Pick- Up Object From Floor Requires Assistance Look Behind Shoulder - Standing Assist to Prevent Fall Turning 360 Degrees Requires Assistance Unsupported Stance, Alternating Feet on Assist to Prevent Fall Stair Unsupported Tandem Stance Balance Lost- Step/Stand Unilateral Leg Stance Unable,assist to not fall Total Score Donis Total Score (out of 56 points) 16 Donis Impairment Rating 60 to 79% Impaired (Score 12- 22) Mejia Fall Scale Copyright Permission Roberto JM, Roberto RM, Mark SJ. Development of a scale to identify the fall- prone patient. Can J Aging 1989;8;366-7. Catrachita Mejia (2009). Preventing patient falls. (2nd ed). [place]: Marquis. PT-OP-E Functional Tests Start: 10/12/17 18:11 Freq: Status: Active Protocol: Document 01/05/18 14:30 DCW (Rec: 01/05/18 15:06 DCW [id number]) Functional Tests 6 Minute Walk Test Distance 690' Device Used 4WW PT-OP-M Strength Start: 10/12/17 18:11 Freq: Status: Active Protocol: Document 01/05/18 14:30 DCW (Rec: 01/05/18 15:06 DCW [id number]) Hip Strength Hip Manual Muscle Testing Right Flexion (L2) 5 Normal Abduction 5 Normal Adduction 5 Normal Left Flexion (L2) 4+ Good+ Abduction 5 Normal Adduction 5 Normal Knee Strength Knee Manual Muscle Testing Right Flexion (S2) 5 Normal Extension (L3) 5 Normal Left Flexion (S2) 4+ Good+ Extension (L3) 5 Normal Ankle/Foot Strength Ankle and Foot Manual Muscle Testing Right Dorsiflexion (L4) 2- Poor- Plantarflexion (S1) 3+ Fair+ Left Dorsiflexion (L4) 4+ Good+ Plantarflexion (S1) 5 Normal PT-OP-Q Treatments Start: 09/28/17 15:21 Freq: Status: Active Protocol: Document 03/02/18 11:15 DCW (Rec: 03/02/18 12:03 DCW [id number]) Gym Equipment Shuttle Recovery Bilateral Heel Raises Resistance 112# Shuttle Recovery Platform Stable Reps/Time x60 Unilateral Squats Resistance 87# Shuttle Recovery Platform Stable Reps/Time x20 Bilateral Squats Resistance 150# Shuttle Recovery Platform Stable Reps/Time x30 Therapeutic Exercises Other Exercises 1 Other Exercise Name Resisted Side-stepping Side bilateral Resistance Yellow Equipment Used T-band Gait Training Gait Activity 3 Device Used 4WW Level of Assistance SBA Distance/Duration 930' Treatment Focus Increased gait distance/ tolerance Comments v/c for joan, foot clearance 1 Device Used SPC Level of Assistance Min Ax1 Surface Level Distance/Duration 90' x1 Neuro Re-Education Treatment Balance Activities 5 Details BOSU Standing PT-OP-T Assessment and Plan Start: 09/28/17 15:21 Freq: Status: Active Protocol: Document 03/02/18 11:15 DCW (Rec: 03/02/18 12:03 DCW [id number]) Physical Therapy Assessment Impairments Impairments Activity Tolerance Balance Functional Activities Functional Mobility Gait ROM Strength Goals Seven Impairment Donis Business Analytics Director Goal (LTG) Pt to score 22/56 on Donis Balance scale LTG Duration 02/15/18 Six Impairment Static Standing Balance Short Term Goal (STG) Pt to hold double leg balance with eyes open on a firm surface for 60 seconds STG Duration Met Business Analytics Director Goal (LTG) Pt to stand independently for 2 minutes LTG Duration 02/15/18 Five Impairment Gait tolerance Business Analytics Director Goal (LTG) Pt to tolerate 1000' ambulation without rest using 4WW LTG Duration Met Four Impairment Foot slap Short Term Goal (STG) Pt to regularly wear R AFO to limit foot drop and help normalize gait pattern STG Duration Goal Met Three Impairment Transfers Short Term Goal (STG) Pt to transfer independently from mat<->w/c with no assistive devices STG Duration Met Two Impairment Ankle weakness Business Analytics Director Goal (LTG) Pt to display 2/5 MMT in R DF, 4/5 MMT in R PF, and 4+/5 MMT in all other bilateral ankle movements LTG Duration 02/15/18 - Improving One Impairment Activity tolerance Mcfp Goal (LTG) Pt to tolerate activity up to 15 minutes without a break LTG Duration 02/15/18 Progress Towards Goals Progress Towards Goals Progressing Toward Goals Slow Progress due to Activity Tolerance Slow Progress due to Medical Issues Assessment Summary Assessment Pt struggled with addition of standing on BOSU ball, and was very fatigued by the end of his treatment session when attempting to walk out to the waiting room using a SPC. Physical Therapy Plan Frequency and Duration Frequency of Treatment 2x/Week Duration of Treatment 12 weeks Plan of Care Start Date 01/05/18 Plan of Care End Date 03/30/18 Therapeutic Interventions Therapeutic Interventions Aquatic Therapy Balance Training Gait Training Home Exercise Program Manual Therapy Neuromuscular Re-education Soft Tissue Mobilization Therapeutic Activities Therapeutic Exercises Next Visit Focus/Plan Next Note Type Treatment Note Next Visit Plan Continue current POC
--- NOTE | 2018-03-04 10:28 | PT.OTN ---
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 with return to pre-existing conscious level, subsequent encounter (03/04/18) History of falling (03/04/18) Physical Therapy Treatment Note PT-OP-A Visit Information Start: 09/28/17 15:21 Freq: Status: Active Protocol: Document 03/04/18 09:40 DCW (Rec: 03/04/18 10:28 DCW [id number]) Out-Patient Physical Therapy Visit Information Visit Information Visit Type Treatment Note Visit Start Time 09:40 Visit Stop Time 10:30 Total Visit Minutes 50 Visit Number 52 Number of EDUCATIONAL AUDIOLOGIST Visits 0 Evaluation Information Evaluation Date 07/27/17 PT-OP-B Current Condition Start: 09/28/17 15:21 Freq: Status: Active Protocol: Document 10/12/17 13:45 DCW (Rec: 10/12/17 18:33 DCW [id number]) Current Condition History of Current Condition Onset Date 02/05/17 History of Current Condition See Pt's initial evaluation in Therapy Source Current Functional Impairments (Reported) Functional Limitations- Mobility/Gait Transfers:W/C<->Mat Stand- pivot: Independent PT-OP-C Subjective Start: 09/28/17 15:21 Freq: Status: Active Protocol: Document 03/04/18 09:40 DCW (Rec: 03/04/18 10:28 DCW [id number]) OP-PT Subjective Patient Comments Patient Comments It's an early day, so I'm still trying to wake up. PT-OP-D Balance Start: 10/12/17 18:11 Freq: Status: Active Protocol: Document 01/05/18 14:30 DCW (Rec: 01/05/18 15:06 DCW [id number]) OP-PT Balance Assessment Standing Balance Standing Balance Comments Double leg, Eyes open: 1'24 Donis Balance Assessment Evaluation Sitting to Standing Ability Independent w/Hands Unsupported Stance Several Tries, 30 seconds Sitting Unsupported, Feet on Floor Safely- 2 minutes Standing to Sitting Ability Independent, Uncontrolled Transfer Ability Safely, Hand Use Unsupported Stance- Eyes Closed Safely, With Eyes Open Unsupported Stance- Eyes Open Assist to attain, 15 secs Reaching Forward Standing Safely, 2 inches Pick- Up Object From Floor Requires Assistance Look Behind Shoulder - Standing Assist to Prevent Fall Turning 360 Degrees Requires Assistance Unsupported Stance, Alternating Feet on Assist to Prevent Fall Stair Unsupported Tandem Stance Balance Lost- Step/Stand Unilateral Leg Stance Unable,assist to not fall Total Score Donis Total Score (out of 56 points) 16 Donis Impairment Rating 60 to 79% Impaired (Score 12- 22) Roberto Fall Scale Copyright Permission Roberto JM, Roberto RM, Mark SJ. Development of a scale to identify the fall- prone patient. Can J Aging 1989;8;366-7. Catrachita Mejia (2009). Preventing patient falls. (2nd ed). [place]: Marquis. PT-OP-E Functional Tests Start: 10/12/17 18:11 Freq: Status: Active Protocol: Document 01/05/18 14:30 DCW (Rec: 01/05/18 15:06 DCW [id number]) Functional Tests 6 Minute Walk Test Distance 690' Device Used 4WW PT-OP-M Strength Start: 10/12/17 18:11 Freq: Status: Active Protocol: Document 01/05/18 14:30 DCW (Rec: 01/05/18 15:06 DCW [id number]) Hip Strength Hip Manual Muscle Testing Right Flexion (L2) 5 Normal Abduction 5 Normal Adduction 5 Normal Left Flexion (L2) 4+ Good+ Abduction 5 Normal Adduction 5 Normal Knee Strength Knee Manual Muscle Testing Right Flexion (S2) 5 Normal Extension (L3) 5 Normal Left Flexion (S2) 4+ Good+ Extension (L3) 5 Normal Ankle/Foot Strength Ankle and Foot Manual Muscle Testing Right Dorsiflexion (L4) 2- Poor- Plantarflexion (S1) 3+ Fair+ Left Dorsiflexion (L4) 4+ Good+ Plantarflexion (S1) 5 Normal PT-OP-Q Treatments Start: 09/28/17 15:21 Freq: Status: Active Protocol: Document 03/04/18 09:40 DCW (Rec: 03/04/18 10:28 DCW [id number]) Gym Equipment Shuttle Recovery Bilateral Heel Raises Resistance 125 Shuttle Recovery Platform Stable Reps/Time x60 Unilateral Squats Resistance 87# Shuttle Recovery Platform Stable Reps/Time x20 Bilateral Squats Resistance 162# Shuttle Recovery Platform Stable Reps/Time x30 Therapeutic Exercises Other Exercises 1 Other Exercise Name Resisted Side-stepping Side bilateral Resistance Yellow Equipment Used T-band Gait Training Gait Activity 3 Device Used 4WW Level of Assistance SBA Distance/Duration 930' Treatment Focus Increased gait distance/ tolerance Comments v/c for joan, foot clearance Neuro Re-Education Treatment Balance Activities 5 Details BOSU Standing PT-OP-T Assessment and Plan Start: 09/28/17 15:21 Freq: Status: Active Protocol: Document 03/04/18 09:40 DCW (Rec: 03/04/18 10:28 DCW [id number]) Physical Therapy Assessment Impairments Impairments Activity Tolerance Balance Functional Activities Functional Mobility Gait ROM Strength Goals Seven Impairment Donis Group Home Goal (LTG) Pt to score 22/56 on Donis Balance scale LTG Duration 02/15/18 Six Impairment Static Standing Balance Short Term Goal (STG) Pt to hold double leg balance with eyes open on a firm surface for 60 seconds STG Duration Met Group Home Goal (LTG) Pt to stand independently for 2 minutes LTG Duration 02/15/18 Five Impairment Gait tolerance Manager Cable Goal (LTG) Pt to tolerate 1000' ambulation without rest using 4WW LTG Duration Met Four Impairment Foot slap Short Term Goal (STG) Pt to regularly wear R AFO to limit foot drop and help normalize gait pattern STG Duration Goal Met Three Impairment Transfers Short Term Goal (STG) Pt to transfer independently from mat<->w/c with no assistive devices STG Duration Met Two Impairment Ankle weakness Group Home Goal (LTG) Pt to display 2/5 MMT in R DF, 4/5 MMT in R PF, and 4+/5 MMT in all other bilateral ankle movements LTG Duration 02/15/18 - Improving One Impairment Activity tolerance Manager Cable Goal (LTG) Pt to tolerate activity up to 15 minutes without a break LTG Duration 02/15/18 Assessment Summary Assessment Pt experiencing increased fatigue today, required increased rest breaks between exercises. Physical Therapy Plan Frequency and Duration Frequency of Treatment 2x/Week Duration of Treatment 12 weeks Plan of Care Start Date 01/05/18 Plan of Care End Date 03/30/18 Therapeutic Interventions Therapeutic Interventions Aquatic Therapy Balance Training Gait Training Home Exercise Program Manual Therapy Neuromuscular Re-education Soft Tissue Mobilization Therapeutic Activities Therapeutic Exercises Next Visit Focus/Plan Next Note Type Treatment Note Next Visit Plan Continue current POC
--- NOTE | 2018-03-07 10:35 | PT.OTN ---
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 with return to pre-existing conscious level, subsequent encounter (03/07/18) History of falling (03/07/18) Physical Therapy Treatment Note PT-OP-A Visit Information Start: 09/28/17 15:21 Freq: Status: Active Protocol: Document 03/07/18 09:45 DCW (Rec: 03/07/18 10:35 DCW [id number]) Out-Patient Physical Therapy Visit Information Visit Information Visit Type Treatment Note Visit Start Time 09:45 Visit Stop Time 10:30 Total Visit Minutes 45 Visit Number 53 Number of BAKERY MACHINE MECHANIC Visits 0 Evaluation Information Evaluation Date 07/27/17 PT-OP-B Current Condition Start: 09/28/17 15:21 Freq: Status: Active Protocol: Document 10/12/17 13:45 DCW (Rec: 10/12/17 18:33 DCW [id number]) Current Condition History of Current Condition Onset Date 02/05/17 History of Current Condition See Pt's initial evaluation in Therapy Source Current Functional Impairments (Reported) Functional Limitations- Mobility/Gait Transfers:W/C<->Mat Stand- pivot: Independent PT-OP-C Subjective Start: 09/28/17 15:21 Freq: Status: Active Protocol: Document 03/07/18 09:45 DCW (Rec: 03/07/18 10:35 DCW [id number]) OP-PT Subjective Patient Comments Patient Comments I feel like I'm getting weaker. PT-OP-D Balance Start: 10/12/17 18:11 Freq: Status: Active Protocol: Document 01/05/18 14:30 DCW (Rec: 01/05/18 15:06 DCW [id number]) OP-PT Balance Assessment Standing Balance Standing Balance Comments Double leg, Eyes open: 1 Donis Balance Assessment Evaluation Sitting to Standing Ability Independent w/Hands Unsupported Stance Several Tries, 30 seconds Sitting Unsupported, Feet on Floor Safely- 2 minutes Standing to Sitting Ability Independent, Uncontrolled Transfer Ability Safely, Hand Use Unsupported Stance- Eyes Closed Safely, With Eyes Open Unsupported Stance- Eyes Open Assist to attain, 15 secs Reaching Forward Standing Safely, 2 inches Pick- Up Object From Floor Requires Assistance Look Behind Shoulder - Standing Assist to Prevent Fall Turning 360 Degrees Requires Assistance Unsupported Stance, Alternating Feet on Assist to Prevent Fall Stair Unsupported Tandem Stance Balance Lost- Step/Stand Unilateral Leg Stance Unable,assist to not fall Total Score Donis Total Score (out of 56 points) 16 Donis Impairment Rating 60 to 79% Impaired (Score 12- 22) Mejia Fall Scale Copyright Permission Roberto JM, Roberto RM, Mark SJ. Development of a scale to identify the fall- prone patient. Can J Aging 1989;8;366-7. Catrachita Mejia (2009). Preventing patient falls. (2nd ed). [place]: Marquis. PT-OP-E Functional Tests Start: 10/12/17 18:11 Freq: Status: Active Protocol: Document 01/05/18 14:30 DCW (Rec: 01/05/18 15:06 DCW [id number]) Functional Tests 6 Minute Walk Test Distance 690' Device Used 4WW PT-OP-M Strength Start: 10/12/17 18:11 Freq: Status: Active Protocol: Document 01/05/18 14:30 DCW (Rec: 01/05/18 15:06 DCW [id number]) Hip Strength Hip Manual Muscle Testing Right Flexion (L2) 5 Normal Abduction 5 Normal Adduction 5 Normal Left Flexion (L2) 4+ Good+ Abduction 5 Normal Adduction 5 Normal Knee Strength Knee Manual Muscle Testing Right Flexion (S2) 5 Normal Extension (L3) 5 Normal Left Flexion (S2) 4+ Good+ Extension (L3) 5 Normal Ankle/Foot Strength Ankle and Foot Manual Muscle Testing Right Dorsiflexion (L4) 2- Poor- Plantarflexion (S1) 3+ Fair+ Left Dorsiflexion (L4) 4+ Good+ Plantarflexion (S1) 5 Normal PT-OP-Q Treatments Start: 09/28/17 15:21 Freq: Status: Active Protocol: Document 03/07/18 09:45 DCW (Rec: 03/07/18 10:35 DCW [id number]) Gym Equipment Shuttle Recovery Bilateral Heel Raises Resistance 125 Shuttle Recovery Platform Stable Reps/Time x60 Unilateral Squats Resistance 87# Shuttle Recovery Platform Stable Reps/Time x20 Bilateral Squats Resistance 162# Shuttle Recovery Platform Stable Reps/Time x30 Shuttle Balance 1 Details Yellow - Wide WILIAN Therapeutic Exercises Other Exercises 1 Other Exercise Name Resisted Side-stepping Side bilateral Resistance Green Equipment Used T-band Gait Training Gait Activity 3 Device Used 4WW Level of Assistance SBA Distance/Duration 930' Treatment Focus Increased gait distance/ tolerance Comments v/c for joan, foot clearance PT-OP-T Assessment and Plan Start: 09/28/17 15:21 Freq: Status: Active Protocol: Document 03/07/18 09:45 DCW (Rec: 03/07/18 10:35 DCW [id number]) Physical Therapy Assessment Impairments Impairments Activity Tolerance Balance Functional Activities Functional Mobility Gait ROM Strength Goals Seven Impairment Donis Irrigation Installation Specialist Goal (LTG) Pt to score 22/56 on Donis Balance scale LTG Duration 02/15/18 Six Impairment Static Standing Balance Short Term Goal (STG) Pt to hold double leg balance with eyes open on a firm surface for 60 seconds STG Duration Met Halfway Goal (LTG) Pt to stand independently for 2 minutes LTG Duration 02/15/18 Five Impairment Gait tolerance Halfway Goal (LTG) Pt to tolerate 1000' ambulation without rest using 4WW LTG Duration Met Four Impairment Foot slap Short Term Goal (STG) Pt to regularly wear R AFO to limit foot drop and help normalize gait pattern STG Duration Goal Met Three Impairment Transfers Short Term Goal (STG) Pt to transfer independently from mat<->w/c with no assistive devices STG Duration Met Two Impairment Ankle weakness Halfway Goal (LTG) Pt to display 2/5 MMT in R DF, 4/5 MMT in R PF, and 4+/5 MMT in all other bilateral ankle movements LTG Duration 02/15/18 - Improving One Impairment Activity tolerance Irrigation Installation Specialist Goal (LTG) Pt to tolerate activity up to 15 minutes without a break LTG Duration 02/15/18 Assessment Summary Assessment Pt improved from last week, fewer rest breaks required and pt complained of fatigue much less frequently. Physical Therapy Plan Frequency and Duration Frequency of Treatment 2x/Week Duration of Treatment 12 weeks Plan of Care Start Date 01/05/18 Plan of Care End Date 03/30/18 Therapeutic Interventions Therapeutic Interventions Aquatic Therapy Balance Training Gait Training Home Exercise Program Manual Therapy Neuromuscular Re-education Soft Tissue Mobilization Therapeutic Activities Therapeutic Exercises Next Visit Focus/Plan Next Note Type Treatment Note Next Visit Plan Continue current POC
--- NOTE | 2018-03-10 11:33 | PT.OTN ---
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 with return to pre-existing conscious level, subsequent encounter (03/10/18) History of falling (03/10/18) Physical Therapy Treatment Note PT-OP-A Visit Information Start: 09/28/17 15:21 Freq: Status: Active Protocol: Document 03/10/18 10:30 DCW (Rec: 03/10/18 11:33 DCW [id number]) Out-Patient Physical Therapy Visit Information Visit Information Visit Type Treatment Note Visit Start Time 10:30 Visit Stop Time 11:15 Total Visit Minutes 45 Visit Number 54 Number of AREA LOSS PREVENTION MANAGER Visits 0 Evaluation Information Evaluation Date 07/27/17 PT-OP-B Current Condition Start: 09/28/17 15:21 Freq: Status: Active Protocol: Document 10/12/17 13:45 DCW (Rec: 10/12/17 18:33 DCW [id number]) Current Condition History of Current Condition Onset Date 02/05/17 History of Current Condition See Pt's initial evaluation in Therapy Source Current Functional Impairments (Reported) Functional Limitations- Mobility/Gait Transfers:W/C<->Mat Stand- pivot: Independent PT-OP-C Subjective Start: 09/28/17 15:21 Freq: Status: Active Protocol: Document 03/10/18 10:30 DCW (Rec: 03/10/18 11:33 DCW [id number]) OP-PT Subjective Patient Comments Patient Comments Pt reports he feels like he has been in a rut recently, and just wants to break out of it. PT-OP-D Balance Start: 10/12/17 18:11 Freq: Status: Active Protocol: Document 01/05/18 14:30 DCW (Rec: 01/05/18 15:06 DCW [id number]) OP-PT Balance Assessment Standing Balance Standing Balance Comments Double leg, Eyes open: 1' Donis Balance Assessment Evaluation Sitting to Standing Ability Independent w/Hands Unsupported Stance Several Tries, 30 seconds Sitting Unsupported, Feet on Floor Safely- 2 minutes Standing to Sitting Ability Independent, Uncontrolled Transfer Ability Safely, Hand Use Unsupported Stance- Eyes Closed Safely, With Eyes Open Unsupported Stance- Eyes Open Assist to attain, 15 secs Reaching Forward Standing Safely, 2 inches Pick- Up Object From Floor Requires Assistance Look Behind Shoulder - Standing Assist to Prevent Fall Turning 360 Degrees Requires Assistance Unsupported Stance, Alternating Feet on Assist to Prevent Fall Stair Unsupported Tandem Stance Balance Lost- Step/Stand Unilateral Leg Stance Unable,assist to not fall Total Score Donis Total Score (out of 56 points) 16 Donis Impairment Rating 60 to 79% Impaired (Score 12- 22) Mejia Fall Scale Copyright Permission Roberto KELLY, Roberto RM, Mark SJ. Development of a scale to identify the fall- prone patient. Can J Aging 1989;8;366-7. Catrachita Mejia (2009). Preventing patient falls. (2nd ed). [place]: Marquis. PT-OP-E Functional Tests Start: 10/12/17 18:11 Freq: Status: Active Protocol: Document 01/05/18 14:30 DCW (Rec: 01/05/18 15:06 DCW [id number]) Functional Tests 6 Minute Walk Test Distance 690' Device Used 4WW PT-OP-M Strength Start: 10/12/17 18:11 Freq: Status: Active Protocol: Document 01/05/18 14:30 DCW (Rec: 01/05/18 15:06 DCW [id number]) Hip Strength Hip Manual Muscle Testing Right Flexion (L2) 5 Normal Abduction 5 Normal Adduction 5 Normal Left Flexion (L2) 4+ Good+ Abduction 5 Normal Adduction 5 Normal Knee Strength Knee Manual Muscle Testing Right Flexion (S2) 5 Normal Extension (L3) 5 Normal Left Flexion (S2) 4+ Good+ Extension (L3) 5 Normal Ankle/Foot Strength Ankle and Foot Manual Muscle Testing Right Dorsiflexion (L4) 2- Poor- Plantarflexion (S1) 3+ Fair+ Left Dorsiflexion (L4) 4+ Good+ Plantarflexion (S1) 5 Normal PT-OP-Q Treatments Start: 09/28/17 15:21 Freq: Status: Active Protocol: Document 03/10/18 10:30 DCW (Rec: 03/10/18 11:33 DCW [id number]) Gym Equipment Shuttle Recovery Bilateral Heel Raises Resistance 125 Shuttle Recovery Platform Stable Reps/Time x60 Unilateral Squats Resistance 87# Shuttle Recovery Platform Stable Reps/Time x20 Bilateral Squats Resistance 162# Shuttle Recovery Platform Stable Reps/Time x30 Therapeutic Exercises Other Exercises 1 Other Exercise Name Resisted Side-stepping Side bilateral Resistance Green Equipment Used T-band Gait Training Gait Activity 3 Device Used 4WW Level of Assistance SBA Distance/Duration 930' Treatment Focus Increased gait distance/ tolerance Comments v/c for joan, foot clearance Neuro Re-Education Treatment Balance Activities 6 Details SLS with UE support at rail 2 Details Unsupported DL standing Comments cues for posture PT-OP-T Assessment and Plan Start: 09/28/17 15:21 Freq: Status: Active Protocol: Document 03/10/18 10:30 DCW (Rec: 03/10/18 11:33 DCW [id number]) Physical Therapy Assessment Impairments Impairments Activity Tolerance Balance Functional Activities Functional Mobility Gait ROM Strength Goals Seven Impairment Donis Alum Operator Goal (LTG) Pt to score 22/56 on Donis Balance scale LTG Duration 02/15/18 Six Impairment Static Standing Balance Short Term Goal (STG) Pt to hold double leg balance with eyes open on a firm surface for 60 seconds STG Duration Met Alum Operator Goal (LTG) Pt to stand independently for 2 minutes LTG Duration 02/15/18 Five Impairment Gait tolerance Care Home Goal (LTG) Pt to tolerate 1000' ambulation without rest using 4WW LTG Duration Met Four Impairment Foot slap Short Term Goal (STG) Pt to regularly wear R AFO to limit foot drop and help normalize gait pattern STG Duration Goal Met Three Impairment Transfers Short Term Goal (STG) Pt to transfer independently from mat<->w/c with no assistive devices STG Duration Met Two Impairment Ankle weakness Care Home Goal (LTG) Pt to display 2/5 MMT in R DF, 4/5 MMT in R PF, and 4+/5 MMT in all other bilateral ankle movements LTG Duration 02/15/18 - Improving One Impairment Activity tolerance Care Home Goal (LTG) Pt to tolerate activity up to 15 minutes without a break LTG Duration 02/15/18 Assessment Summary Assessment Despite pt feeling like he is declining, he is doing well during treatment and progressing with activity tolerance Physical Therapy Plan Frequency and Duration Frequency of Treatment 2x/Week Duration of Treatment 12 weeks Plan of Care Start Date 01/05/18 Plan of Care End Date 03/30/18 Therapeutic Interventions Therapeutic Interventions Aquatic Therapy Balance Training Gait Training Home Exercise Program Manual Therapy Neuromuscular Re-education Soft Tissue Mobilization Therapeutic Activities Therapeutic Exercises Next Visit Focus/Plan Next Note Type Treatment Note Next Visit Plan Continue current POC
--- NOTE | 2018-03-14 12:34 | PT.OTN ---
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 with return to pre-existing conscious level, subsequent encounter (03/14/18) History of falling (03/14/18) Physical Therapy Treatment Note PT-OP-A Visit Information Start: 09/28/17 15:21 Freq: Status: Active Protocol: Document 03/14/18 12:00 DCW (Rec: 03/14/18 12:34 DCW [id number]) Out-Patient Physical Therapy Visit Information Visit Information Visit Type Treatment Note Visit Start Time 12:00 Visit Stop Time 12:45 Total Visit Minutes 45 Visit Number 55 Number of VICE PRESIDENT OF BRAND MANAGEMENT Visits 0 Evaluation Information Evaluation Date 07/27/17 PT-OP-B Current Condition Start: 09/28/17 15:21 Freq: Status: Active Protocol: Document 10/12/17 13:45 DCW (Rec: 10/12/17 18:33 DCW [id number]) Current Condition History of Current Condition Onset Date 02/05/17 History of Current Condition See Pt's initial evaluation in Therapy Source Current Functional Impairments (Reported) Functional Limitations- Mobility/Gait Transfers:W/C<->Mat Stand- pivot: Independent PT-OP-C Subjective Start: 09/28/17 15:21 Freq: Status: Active Protocol: Document 03/14/18 12:00 DCW (Rec: 03/14/18 12:34 DCW [id number]) OP-PT Subjective Patient Comments Patient Comments Pt reports some mild fatigue and feeling shakey today. PT-OP-D Balance Start: 10/12/17 18:11 Freq: Status: Active Protocol: Document 01/05/18 14:30 DCW (Rec: 01/05/18 15:06 DCW [id number]) OP-PT Balance Assessment Standing Balance Standing Balance Comments Double leg, Eyes open: 1 Donis Balance Assessment Evaluation Sitting to Standing Ability Independent w/Hands Unsupported Stance Several Tries, 30 seconds Sitting Unsupported, Feet on Floor Safely- 2 minutes Standing to Sitting Ability Independent, Uncontrolled Transfer Ability Safely, Hand Use Unsupported Stance- Eyes Closed Safely, With Eyes Open Unsupported Stance- Eyes Open Assist to attain, 15 secs Reaching Forward Standing Safely, 2 inches Pick- Up Object From Floor Requires Assistance Look Behind Shoulder - Standing Assist to Prevent Fall Turning 360 Degrees Requires Assistance Unsupported Stance, Alternating Feet on Assist to Prevent Fall Stair Unsupported Tandem Stance Balance Lost- Step/Stand Unilateral Leg Stance Unable,assist to not fall Total Score Donis Total Score (out of 56 points) 16 Donis Impairment Rating 60 to 79% Impaired (Score 12- 22) Roberto Fall Scale Copyright Permission Roberto JM, Roberto RM, Mark SJ. Development of a scale to identify the fall- prone patient. Can J Aging 1989;8;366-7. Catrachita Mejia (2009). Preventing patient falls. (2nd ed). [place]: Marquis. PT-OP-E Functional Tests Start: 10/12/17 18:11 Freq: Status: Active Protocol: Document 01/05/18 14:30 DCW (Rec: 01/05/18 15:06 DCW [id number]) Functional Tests 6 Minute Walk Test Distance 690' Device Used 4WW PT-OP-M Strength Start: 10/12/17 18:11 Freq: Status: Active Protocol: Document 01/05/18 14:30 DCW (Rec: 01/05/18 15:06 DCW [id number]) Hip Strength Hip Manual Muscle Testing Right Flexion (L2) 5 Normal Abduction 5 Normal Adduction 5 Normal Left Flexion (L2) 4+ Good+ Abduction 5 Normal Adduction 5 Normal Knee Strength Knee Manual Muscle Testing Right Flexion (S2) 5 Normal Extension (L3) 5 Normal Left Flexion (S2) 4+ Good+ Extension (L3) 5 Normal Ankle/Foot Strength Ankle and Foot Manual Muscle Testing Right Dorsiflexion (L4) 2- Poor- Plantarflexion (S1) 3+ Fair+ Left Dorsiflexion (L4) 4+ Good+ Plantarflexion (S1) 5 Normal PT-OP-Q Treatments Start: 09/28/17 15:21 Freq: Status: Active Protocol: Document 03/14/18 12:00 DCW (Rec: 03/14/18 12:34 DCW [id number]) Gym Equipment Shuttle Recovery Bilateral Heel Raises Resistance 125# Shuttle Recovery Platform Stable Reps/Time x60 Unilateral Squats Resistance 87# Shuttle Recovery Platform Stable Reps/Time x20 Bilateral Squats Resistance 162# Shuttle Recovery Platform Stable Reps/Time x30 Therapeutic Exercises Standing Exercises Hamstring curls Standing Exercise Name HS curls at rail Side bilateral Resistance 5# Equipment Used ankle weights Standing Marching Standing Exercise Name Marching at rail Side bilateral Resistance 5# Equipment Used ankle weights Other Exercises 1 Other Exercise Name Resisted Side-stepping Side bilateral Resistance Green Equipment Used T-band Gait Training Gait Activity 3 Device Used 4WW Level of Assistance SBA Distance/Duration 930' Treatment Focus Increased gait distance/ tolerance Comments v/c for joan, foot clearance PT-OP-T Assessment and Plan Start: 09/28/17 15:21 Freq: Status: Active Protocol: Document 03/14/18 12:00 DCW (Rec: 03/14/18 12:34 DCW [id number]) Physical Therapy Assessment Impairments Impairments Activity Tolerance Balance Functional Activities Functional Mobility Gait ROM Strength Goals Seven Impairment Donis Senior Living Goal (LTG) Pt to score 22/56 on Donis Balance scale LTG Duration 02/15/18 Six Impairment Static Standing Balance Short Term Goal (STG) Pt to hold double leg balance with eyes open on a firm surface for 60 seconds STG Duration Met [facility] Living Goal (LTG) Pt to stand independently for 2 minutes LTG Duration 02/15/18 Five Impairment Gait tolerance Senior Living Goal (LTG) Pt to tolerate 1000' ambulation without rest using 4WW LTG Duration Met Four Impairment Foot slap Short Term Goal (STG) Pt to regularly wear R AFO to limit foot drop and help normalize gait pattern STG Duration Goal Met Three Impairment Transfers Short Term Goal (STG) Pt to transfer independently from mat<->w/c with no assistive devices STG Duration Met Two Impairment Ankle weakness Hourly Shift Goal (LTG) Pt to display 2/5 MMT in R DF, 4/5 MMT in R PF, and 4+/5 MMT in all other bilateral ankle movements LTG Duration 02/15/18 - Improving One Impairment Activity tolerance Hourly Shift Goal (LTG) Pt to tolerate activity up to 15 minutes without a break LTG Duration 02/15/18 Assessment Summary Assessment Pt again reporting that he subjectively feels like he is not doing well, reminded him once again the amount of progress he has made since beginning therapy, and pt was a little more optimistic afterward. Physical Therapy Plan Frequency and Duration Frequency of Treatment 2x/Week Duration of Treatment 12 weeks Plan of Care Start Date 01/05/18 Plan of Care End Date 03/30/18 Therapeutic Interventions Therapeutic Interventions Aquatic Therapy Balance Training Gait Training Home Exercise Program Manual Therapy Neuromuscular Re-education Soft Tissue Mobilization Therapeutic Activities Therapeutic Exercises Next Visit Focus/Plan Next Note Type Progress Note Next Visit Plan New G-codes
--- NOTE | 2018-03-28 12:11 | PT.OTN ---
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 greater than 24 hours with return to pre-existing conscious level, subsequent encounter (03/28/18) History of falling (03/28/18) Physical Therapy Treatment Note PT-OP-A Visit Information Start: 09/28/17 15:21 Freq: Status: Active Protocol: Document 03/28/18 09:45 DCW (Rec: 03/28/18 12:11 DCW [id number]) Out-Patient Physical Therapy Visit Information Visit Information Visit Type Progress Note Visit Start Time 09:45 Visit Stop Time 10:30 Total Visit Minutes 45 Visit Number 56 Number of QUALITY ASSURANCE Visits 0 Evaluation Information Evaluation Date 07/27/17 PT-OP-B Current Condition Start: 09/28/17 15:21 Freq: Status: Active Protocol: Document 10/12/17 13:45 DCW (Rec: 10/12/17 18:33 DCW [id number]) Current Condition History of Current Condition Onset Date 02/05/17 History of Current Condition See Pt's initial evaluation in Therapy Source Current Functional Impairments (Reported) Functional Limitations- Mobility/Gait Transfers:W/C<->Mat Stand- pivot: Independent PT-OP-C Subjective Start: 09/28/17 15:21 Freq: Status: Active Protocol: Document 03/28/18 09:45 DCW (Rec: 03/28/18 12:11 DCW [id number]) OP-PT Subjective Patient Comments Patient Comments Pt looking forward to his reassessment today, seeing how much improvement he has made. PT-OP-D Balance Start: 10/12/17 18:11 Freq: Status: Active Protocol: Document 03/28/18 09:45 DCW (Rec: 03/28/18 10:29 DCW [id number]) OP-PT Balance Assessment Standing Balance Standing Balance Comments Double leg, Eyes open: Donis Balance Assessment Evaluation Sitting to Standing Ability Independent w/Hands Unsupported Stance 30 seconds Sitting Unsupported, Feet on Floor Safely- 2 minutes Standing to Sitting Ability Assist, Control w/Hands Transfer Ability Safely, Hand Use Unsupported Stance- Eyes Closed Supervision, 10 seconds Unsupported Stance- Eyes Open Independent, <30 seconds Reaching Forward Standing Safely, 5 inches Pick- Up Object From Floor Supervision Look Behind Shoulder - Standing Supervision w/Turning Turning 360 Degrees Requires Assistance Unsupported Stance, Alternating Feet on Assist to Prevent Fall Stair Unsupported Tandem Stance Assist to Step-15 seconds Unilateral Leg Stance Unable,assist to not fall Total Score Donis Total Score (out of 56 points) 28 Donis Impairment Rating 40 to 59% Impaired (Score 23- 33) Roberto Fall Scale Copyright Permission Roberto JM, Roberto RM, Mark SJ. Development of a scale to identify the fall- prone patient. Can J Aging 1989;8;366-7. Catrachita Mejia (2009). Preventing patient falls. (2nd ed). [place]: Marquis. PT-OP-E Functional Tests Start: 10/12/17 18:11 Freq: Status: Active Protocol: Document 03/28/18 09:45 DCW (Rec: 03/28/18 10:29 DCW [id number]) Functional Tests 6 Minute Walk Test Distance 870' Device Used 4WW PT-OP-M Strength Start: 10/12/17 18:11 Freq: Status: Active Protocol: Document 03/28/18 09:45 DCW (Rec: 03/28/18 10:29 DCW [id number]) Hip Strength Hip Manual Muscle Testing Right Flexion (L2) 5 Normal Abduction 5 Normal Adduction 5 Normal Left Flexion (L2) 4+ Good+ Abduction 5 Normal Adduction 5 Normal Knee Strength Knee Manual Muscle Testing Right Flexion (S2) 5 Normal Extension (L3) 5 Normal Left Flexion (S2) 4+ Good+ Extension (L3) 5 Normal Ankle/Foot Strength Ankle and Foot Manual Muscle Testing Right Dorsiflexion (L4) 2- Poor- Plantarflexion (S1) 3+ Fair+ Left Dorsiflexion (L4) 4+ Good+ Plantarflexion (S1) 5 Normal PT-OP-Q Treatments Start: 09/28/17 15:21 Freq: Status: Active Protocol: Document 03/28/18 09:45 DCW (Rec: 03/28/18 12:11 DCW [id number]) Gait Training Gait Activity 3 Device Used 4WW Level of Assistance SBA Distance/Duration 870' Comments 6 MWT Neuro Re-Education Treatment Other Activities 1 Details Standing balance testing, Donis balance test PT-OP-T Assessment and Plan Start: 09/28/17 15:21 Freq: Status: Active Protocol: Document 03/28/18 09:45 DCW (Rec: 03/28/18 12:11 DCW [id number]) Physical Therapy Assessment Impairments Impairments Activity Tolerance Balance Functional Activities Functional Mobility Gait ROM Strength Goals Seven Impairment Donis Short Term Goal (STG) Pt to score 22/56 on Donis Balance scale STG Duration Met [facility] Goal (LTG) Pt to score 35/56 on Donis Balance scale LTG Duration 06/20/18 Six Impairment Static Standing Balance District Sales Leader Goal (LTG) Pt to stand independently for 2 minutes LTG Duration 06/20/18 Five Impairment 6 MWT Pen[facility]iary Goal (LTG) Pt to ambulate 1000' without rest using 4WW during 6 MWT LTG Duration 06/20/18 Four Impairment Foot slap Short Term Goal (STG) Pt to regularly wear R AFO to limit foot drop and help normalize gait pattern STG Duration Met Three Impairment Transfers Short Term Goal (STG) Pt to transfer independently from mat<->w/c with no assistive devices STG Duration Met Two Impairment Ankle weakness District Sales Leader Goal (LTG) Pt to display 2/5 MMT in R DF, 4/5 MMT in R PF, and 4+/5 MMT in all other bilateral ankle movements LTG Duration 06/20/18 - Improving One Impairment Activity tolerance District Sales Leader Goal (LTG) Pt to tolerate activity up to 15 minutes without a break LTG Duration 06/20/18 Assessment Summary Assessment Pt displayed a 12 point improvement in Donis Balance scale, as well as walking nearly 200 additional feet during his 6 MWT, demonstrating significant improvement since his last reassessment. Pt should continue to improve with skilled therapy focusing in increased balance, activity tolerance, and strength. Physical Therapy Plan Frequency and Duration Frequency of Treatment 2x/Week Duration of Treatment 12 weeks Plan of Care Start Date 03/28/18 Plan of Care End Date 06/20/18 Therapeutic Interventions Therapeutic Interventions Aquatic Therapy Balance Training Gait Training Home Exercise Program Manual Therapy Neuromuscular Re-education Soft Tissue Mobilization Therapeutic Activities Therapeutic Exercises Next Visit Focus/Plan Next Note Type Treatment Note Next Visit Plan Continue current POC
--- NOTE | 2018-03-28 12:11 | PT.OPPOC ---
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 greater than 24 hours with return to pre-existing conscious level, subsequent encounter (03/28/18) History of falling (03/28/18) Provider Visit Care Team Role Provider Type Elver Eubanks MD Attending Provider Physician Family Provider Primary Care Provider Specialty: Internal Medicine Address: [address] [place] [address], [facility] Email: Plan Of Care PT-OP-T Assessment and Plan Start: 09/28/17 15:21 Freq: Status: Active Protocol: Document 03/28/18 09:45 DCW (Rec: 03/28/18 12:11 DCW [id number]) Physical Therapy Assessment Impairments Impairments Activity Tolerance Balance Functional Activities Functional Mobility Gait ROM Strength Goals Seven Impairment Donis Short Term Goal (STG) Pt to score 22/56 on Donis Balance scale STG Duration Met Copper Etcher Goal (LTG) Pt to score 35/56 on Donis Balance scale LTG Duration 06/20/18 Six Impairment Static Standing Balance Fdc Goal (LTG) Pt to stand independently for 2 minutes LTG Duration 06/20/18 Five Impairment 6 MWT Fdc Goal (LTG) Pt to ambulate 1000' without rest using 4WW during 6 MWT LTG Duration 06/20/18 Four Impairment Foot slap Short Term Goal (STG) Pt to regularly wear R AFO to limit foot drop and help normalize gait pattern STG Duration Met Three Impairment Transfers Short Term Goal (STG) Pt to transfer independently from mat<->w/c with no assistive devices STG Duration Met Two Impairment Ankle weakness Fdc Goal (LTG) Pt to display 2/5 MMT in R DF, 4/5 MMT in R PF, and 4+/5 MMT in all other bilateral ankle movements LTG Duration 06/20/18 - Improving One Impairment Activity tolerance Fdc Goal (LTG) Pt to tolerate activity up to 15 minutes without a break LTG Duration 06/20/18 Assessment Summary Assessment Pt displayed a 12 point improvement in Donis Balance scale, as well as walking nearly 200 additional feet during his 6 MWT, demonstrating significant improvement since his last reassessment. Pt should continue to improve with skilled therapy focusing in increased balance, activity tolerance, and strength. Physical Therapy Plan Frequency and Duration Frequency of Treatment 2x/Week Duration of Treatment 12 weeks Plan of Care Start Date 03/28/18 Plan of Care End Date 06/20/18 Therapeutic Interventions Therapeutic Interventions Aquatic Therapy Balance Training Gait Training Home Exercise Program Manual Therapy Neuromuscular Re-education Soft Tissue Mobilization Therapeutic Activities Therapeutic Exercises Next Visit Focus/Plan Next Note Type Treatment Note Next Visit Plan Continue current POC Plan of Care Dates Plan of Care Start Date 03/28/18 Plan of Care End Date 06/20/18 Please Sign and Return: I have reviewed this Plan of Care and certify that the skilled therapy services above are required to meet the patient?s needs. Physician Signature Date Printed Name and Credentials Clinical Instructor Signature Printed Name and Credentials
--- NOTE | 2018-03-31 10:26 | PT.OTN ---
Current Diagnoses Foot drop, right foot (03/31/18) Muscle weakness (generalized) (03/31/18) Unsteadiness on feet (03/31/18) Unspecified abnormalities of gait and mobility (03/31/18) Traumatic subdural hemorrhage with loss of consciousness greater than 24 hours with return to pre-existing conscious level, subsequent encounter (03/31/18) History of falling (03/31/18) Physical Therapy Treatment Note PT-OP-A Visit Information Start: 09/28/17 15:21 Freq: Status: Active Protocol: Document 03/31/18 09:45 DCW (Rec: 03/31/18 10:26 DCW [id number]) Out-Patient Physical Therapy Visit Information Visit Information Visit Type Treatment Note Visit Start Time 09:45 Visit Stop Time 10:30 Total Visit Minutes 45 Visit Number 57 Number of HYDRO ELECTRIC STATION OPERATOR Visits 0 Evaluation Information Evaluation Date 07/27/17 PT-OP-B Current Condition Start: 09/28/17 15:21 Freq: Status: Active Protocol: Document 10/12/17 13:45 DCW (Rec: 10/12/17 18:33 DCW [id number]) Current Condition History of Current Condition Onset Date 02/05/17 History of Current Condition See Pt's initial evaluation in Therapy Source Current Functional Impairments (Reported) Functional Limitations- Mobility/Gait Transfers:W/C<->Mat Stand- pivot: Independent PT-OP-C Subjective Start: 09/28/17 15:21 Freq: Status: Active Protocol: Document 03/31/18 09:45 DCW (Rec: 03/31/18 10:26 DCW [id number]) OP-PT Subjective Patient Comments Patient Comments Pt reports that he needs to cancel his appointments next week because he is going down to [place] for appointments with his brain surgeons and to have a consultation with a spinal specialist. PT-OP-D Balance Start: 10/12/17 18:11 Freq: Status: Active Protocol: Document 03/28/18 09:45 DCW (Rec: 03/28/18 10:29 DCW [id number]) OP-PT Balance Assessment Standing Balance Standing Balance Comments Double leg, Eyes open: Donis Balance Assessment Evaluation Sitting to Standing Ability Independent w/Hands Unsupported Stance 30 seconds Sitting Unsupported, Feet on Floor Safely- 2 minutes Standing to Sitting Ability Assist, Control w/Hands Transfer Ability Safely, Hand Use Unsupported Stance- Eyes Closed Supervision, 10 seconds Unsupported Stance- Eyes Open Independent, <30 seconds Reaching Forward Standing Safely, 5 inches Pick- Up Object From Floor Supervision Look Behind Shoulder - Standing Supervision w/Turning Turning 360 Degrees Requires Assistance Unsupported Stance, Alternating Feet on Assist to Prevent Fall Stair Unsupported Tandem Stance Assist to Step-15 seconds Unilateral Leg Stance Unable,assist to not fall Total Score Donis Total Score (out of 56 points) 28 Donis Impairment Rating 40 to 59% Impaired (Score 23- 33) Mejia Fall Scale Copyright Permission Roberto KELLY, Roberto RM, Mark SJ. Development of a scale to identify the fall- prone patient. Can J Aging 1989;8;366-7. Catrachita Mejia (2009). Preventing patient falls. (2nd ed). [place]: Marquis. PT-OP-E Functional Tests Start: 10/12/17 18:11 Freq: Status: Active Protocol: Document 03/28/18 09:45 DCW (Rec: 03/28/18 10:29 DCW [id number]) Functional Tests 6 Minute Walk Test Distance 870' Device Used 4WW PT-OP-M Strength Start: 10/12/17 18:11 Freq: Status: Active Protocol: Document 03/28/18 09:45 DCW (Rec: 03/28/18 10:29 DCW [id number]) Hip Strength Hip Manual Muscle Testing Right Flexion (L2) 5 Normal Abduction 5 Normal Adduction 5 Normal Left Flexion (L2) 4+ Good+ Abduction 5 Normal Adduction 5 Normal Knee Strength Knee Manual Muscle Testing Right Flexion (S2) 5 Normal Extension (L3) 5 Normal Left Flexion (S2) 4+ Good+ Extension (L3) 5 Normal Ankle/Foot Strength Ankle and Foot Manual Muscle Testing Right Dorsiflexion (L4) 2- Poor- Plantarflexion (S1) 3+ Fair+ Left Dorsiflexion (L4) 4+ Good+ Plantarflexion (S1) 5 Normal PT-OP-Q Treatments Start: 09/28/17 15:21 Freq: Status: Active Protocol: Document 03/31/18 09:45 DCW (Rec: 03/31/18 10:26 DCW [id number]) Gym Equipment Shuttle Recovery Bilateral Heel Raises Resistance 125# Shuttle Recovery Platform Stable Reps/Time x60 Unilateral Squats Resistance 87# Shuttle Recovery Platform Stable Reps/Time x20 Bilateral Squats Resistance 162# Shuttle Recovery Platform Stable Reps/Time x30 Therapeutic Exercises Other Exercises Step-ups Other Exercise Name Step-ups with bilateral rail Equipment Used 8 step 1 Other Exercise Name Resisted Side-stepping Side bilateral Resistance Green Equipment Used T-band Gait Training Gait Activity 3 Device Used 4WW Level of Assistance SBA Distance/Duration 1100' Treatment Focus Increased gait distance/ tolerance Comments v/c for joan, foot clearance PT-OP-T Assessment and Plan Start: 09/28/17 15:21 Freq: Status: Active Protocol: Document 03/31/18 09:45 DCW (Rec: 03/31/18 10:26 DCW [id number]) Physical Therapy Assessment Impairments Impairments Activity Tolerance Balance Functional Activities Functional Mobility Gait ROM Strength Goals Seven Impairment Donis Short Term Goal (STG) Pt to score 22/56 on Donis Balance scale STG Duration Met Glue Drier Operator Goal (LTG) Pt to score 35/56 on Donis Balance scale LTG Duration 06/20/18 Six Impairment Static Standing Balance [facility] Goal (LTG) Pt to stand independently for 2 minutes LTG Duration 06/20/18 Five Impairment 6 MWT Glue Drier Operator Goal (LTG) Pt to ambulate 1000' without rest using 4WW during 6 MWT LTG Duration 06/20/18 Four Impairment Foot slap Short Term Goal (STG) Pt to regularly wear R AFO to limit foot drop and help normalize gait pattern STG Duration Met Three Impairment Transfers Short Term Goal (STG) Pt to transfer independently from mat<->w/c with no assistive devices STG Duration Met Two Impairment Ankle weakness [facility] Goal (LTG) Pt to display 2/5 MMT in R DF, 4/5 MMT in R PF, and 4+/5 MMT in all other bilateral ankle movements LTG Duration 06/20/18 - Improving One Impairment Activity tolerance Glue Drier Operator Goal (LTG) Pt to tolerate activity up to 15 minutes without a break LTG Duration 06/20/18 Assessment Summary Assessment Pt tolerated addition of step- ups well, even after walking an increased distance today. Physical Therapy Plan Frequency and Duration Frequency of Treatment 2x/Week Duration of Treatment 12 weeks Plan of Care Start Date 03/28/18 Plan of Care End Date 06/20/18 Therapeutic Interventions Therapeutic Interventions Aquatic Therapy Balance Training Gait Training Home Exercise Program Manual Therapy Neuromuscular Re-education Soft Tissue Mobilization Therapeutic Activities Therapeutic Exercises Next Visit Focus/Plan Next Note Type Treatment Note Next Visit Plan Continue current POC
--- NOTE | 2018-04-11 10:28 | PT.OTN ---
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 with return to pre-existing conscious level, subsequent encounter (04/11/18) History of falling (04/11/18) Physical Therapy Treatment Note PT-OP-A Visit Information Start: 09/28/17 15:21 Freq: Status: Active Protocol: Document 04/11/18 09:45 DCW (Rec: 04/11/18 10:26 DCW [id number]) Out-Patient Physical Therapy Visit Information Visit Information Visit Type Treatment Note Visit Start Time 09:45 Visit Stop Time 10:30 Total Visit Minutes 45 Visit Number 58 Number of MEDICAL BILLING ASSOCIATE Visits 0 Evaluation Information Evaluation Date 07/27/17 PT-OP-B Current Condition Start: 09/28/17 15:21 Freq: Status: Active Protocol: Document 10/12/17 13:45 DCW (Rec: 10/12/17 18:33 DCW [id number]) Current Condition History of Current Condition Onset Date 02/05/17 History of Current Condition See Pt's initial evaluation in Therapy Source Current Functional Impairments (Reported) Functional Limitations- Mobility/Gait Transfers:W/C<->Mat Stand- pivot: Independent PT-OP-C Subjective Start: 09/28/17 15:21 Freq: Status: Active Protocol: Document 04/11/18 09:45 DCW (Rec: 04/11/18 10:26 DCW [id number]) OP-PT Subjective Patient Comments Patient Comments Pt reports he had an excellent visit with his neurologist last week, and they are thrilled with his current level of progress. PT-OP-D Balance Start: 10/12/17 18:11 Freq: Status: Active Protocol: Document 03/28/18 09:45 DCW (Rec: 03/28/18 10:29 DCW [id number]) OP-PT Balance Assessment Standing Balance Standing Balance Comments Double leg, Eyes open: Donis Balance Assessment Evaluation Sitting to Standing Ability Independent w/Hands Unsupported Stance 30 seconds Sitting Unsupported, Feet on Floor Safely- 2 minutes Standing to Sitting Ability Assist, Control w/Hands Transfer Ability Safely, Hand Use Unsupported Stance- Eyes Closed Supervision, 10 seconds Unsupported Stance- Eyes Open Independent, <30 seconds Reaching Forward Standing Safely, 5 inches Pick- Up Object From Floor Supervision Look Behind Shoulder - Standing Supervision w/Turning Turning 360 Degrees Requires Assistance Unsupported Stance, Alternating Feet on Assist to Prevent Fall Stair Unsupported Tandem Stance Assist to Step-15 seconds Unilateral Leg Stance Unable,assist to not fall Total Score Donis Total Score (out of 56 points) 28 Donis Impairment Rating 40 to 59% Impaired (Score 23- 33) Roberto Fall Scale Copyright Permission Roberto KELLY, Roberto RM, Mark SJ. Development of a scale to identify the fall- prone patient. Can J Aging 1989;8;366-7. Catrachita Mejia (2009). Preventing patient falls. (2nd ed). [place]: [place]. PT-OP-E Functional Tests Start: 10/12/17 18:11 Freq: Status: Active Protocol: Document 03/28/18 09:45 DCW (Rec: 03/28/18 10:29 DCW [id number]) Functional Tests 6 Minute Walk Test Distance 870' Device Used 4WW PT-OP-M Strength Start: 10/12/17 18:11 Freq: Status: Active Protocol: Document 03/28/18 09:45 DCW (Rec: 03/28/18 10:29 DCW [id number]) Hip Strength Hip Manual Muscle Testing Right Flexion (L2) 5 Normal Abduction 5 Normal Adduction 5 Normal Left Flexion (L2) 4+ Good+ Abduction 5 Normal Adduction 5 Normal Knee Strength Knee Manual Muscle Testing Right Flexion (S2) 5 Normal Extension (L3) 5 Normal Left Flexion (S2) 4+ Good+ Extension (L3) 5 Normal Ankle/Foot Strength Ankle and Foot Manual Muscle Testing Right Dorsiflexion (L4) 2- Poor- Plantarflexion (S1) 3+ Fair+ Left Dorsiflexion (L4) 4+ Good+ Plantarflexion (S1) 5 Normal PT-OP-Q Treatments Start: 09/28/17 15:21 Freq: Status: Active Protocol: Document 04/11/18 09:45 DCW (Rec: 04/11/18 10:26 DCW [id number]) Gym Equipment Shuttle Recovery Bilateral Heel Raises Resistance 125# Shuttle Recovery Platform Stable Reps/Time x60 Unilateral Squats Resistance 87# Shuttle Recovery Platform Stable Reps/Time x20 Bilateral Squats Resistance 162# Shuttle Recovery Platform Stable Reps/Time x30 Shuttle Balance 1 Details Yellow - Wide WILIAN Therapeutic Exercises Other Exercises 1 Other Exercise Name Resisted Side-stepping Side bilateral Resistance Green Equipment Used T-band Gait Training Gait Activity 3 Device Used 4WW Level of Assistance SBA Distance/Duration 930' Treatment Focus Increased gait distance/ tolerance Comments v/c for joan, foot clearance PT-OP-T Assessment and Plan Start: 09/28/17 15:21 Freq: Status: Active Protocol: Document 04/11/18 09:45 DCW (Rec: 04/11/18 10:26 DCW [id number]) Physical Therapy Assessment Impairments Impairments Activity Tolerance Balance Functional Activities Functional Mobility Gait ROM Strength Goals Seven Impairment Donis Short Term Goal (STG) Pt to score 22/56 on Donis Balance scale STG Duration Met Renovation Plant Supervisor Goal (LTG) Pt to score 35/56 on Donis Balance scale LTG Duration 06/20/18 Six Impairment Static Standing Balance Assisted Goal (LTG) Pt to stand independently for 2 minutes LTG Duration 06/20/18 Five Impairment 6 MWT Renovation Plant Supervisor Goal (LTG) Pt to ambulate 1000' without rest using 4WW during 6 MWT LTG Duration 06/20/18 Four Impairment Foot slap Short Term Goal (STG) Pt to regularly wear R AFO to limit foot drop and help normalize gait pattern STG Duration Met Three Impairment Transfers Short Term Goal (STG) Pt to transfer independently from mat<->w/c with no assistive devices STG Duration Met Two Impairment Ankle weakness Renovation Plant Supervisor Goal (LTG) Pt to display 2/5 MMT in R DF, 4/5 MMT in R PF, and 4+/5 MMT in all other bilateral ankle movements LTG Duration 06/20/18 - Improving One Impairment Activity tolerance Assisted Goal (LTG) Pt to tolerate activity up to 15 minutes without a break LTG Duration 06/20/18 Assessment Summary Assessment Pt more fatigued than normal today after no therapy last week, however pt did perform the best he has ever done on the shuttle balance, standing with no support for 55 seconds . Physical Therapy Plan Frequency and Duration Frequency of Treatment 2x/Week Duration of Treatment 12 weeks Plan of Care Start Date 03/28/18 Plan of Care End Date 06/20/18 Therapeutic Interventions Therapeutic Interventions Aquatic Therapy Balance Training Gait Training Home Exercise Program Manual Therapy Neuromuscular Re-education Soft Tissue Mobilization Therapeutic Activities Therapeutic Exercises Next Visit Focus/Plan Next Note Type Treatment Note Next Visit Plan Continue current POC
--- NOTE | 2018-04-14 10:27 | PT.OTN ---
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 with return to pre-existing conscious level, subsequent encounter (04/14/18) History of falling (04/14/18) Physical Therapy Treatment Note PT-OP-A Visit Information Start: 09/28/17 15:21 Freq: Status: Active Protocol: Document 04/14/18 09:35 DCW (Rec: 04/14/18 10:26 DCW [id number]) Out-Patient Physical Therapy Visit Information Visit Information Visit Type Treatment Note Visit Start Time 09:35 Visit Stop Time 10:20 Total Visit Minutes 45 Visit Number 59 Number of SUPERVISOR GROUNDS Visits 0 Evaluation Information Evaluation Date 07/27/17 PT-OP-B Current Condition Start: 09/28/17 15:21 Freq: Status: Active Protocol: Document 10/12/17 13:45 DCW (Rec: 10/12/17 18:33 DCW [id number]) Current Condition History of Current Condition Onset Date 02/05/17 History of Current Condition See Pt's initial evaluation in Therapy Source Current Functional Impairments (Reported) Functional Limitations- Mobility/Gait Transfers:W/C<->Mat Stand- pivot: Independent PT-OP-C Subjective Start: 09/28/17 15:21 Freq: Status: Active Protocol: Document 04/14/18 09:35 DCW (Rec: 04/14/18 10:26 DCW [id number]) OP-PT Subjective Patient Comments Patient Comments Pt notes his back is very tight today, and he fears it will limit his ability to perform some of his walking. PT-OP-D Balance Start: 10/12/17 18:11 Freq: Status: Active Protocol: Document 03/28/18 09:45 DCW (Rec: 03/28/18 10:29 DCW [id number]) OP-PT Balance Assessment Standing Balance Standing Balance Comments Double leg, Eyes open: 1 Donis Balance Assessment Evaluation Sitting to Standing Ability Independent w/Hands Unsupported Stance 30 seconds Sitting Unsupported, Feet on Floor Safely- 2 minutes Standing to Sitting Ability Assist, Control w/Hands Transfer Ability Safely, Hand Use Unsupported Stance- Eyes Closed Supervision, 10 seconds Unsupported Stance- Eyes Open Independent, <30 seconds Reaching Forward Standing Safely, 5 inches Pick- Up Object From Floor Supervision Look Behind Shoulder - Standing Supervision w/Turning Turning 360 Degrees Requires Assistance Unsupported Stance, Alternating Feet on Assist to Prevent Fall Stair Unsupported Tandem Stance Assist to Step-15 seconds Unilateral Leg Stance Unable,assist to not fall Total Score Donis Total Score (out of 56 points) 28 Donis Impairment Rating 40 to 59% Impaired (Score 23- 33) Roberto Fall Scale Copyright Permission Roberto KELLY, Roberto RM, Mark SJ. Development of a scale to identify the fall- prone patient. Can J Aging 1989;8;366-7. Catrachita Mejia (2009). Preventing patient falls. (2nd ed). [place]: [place]. PT-OP-E Functional Tests Start: 10/12/17 18:11 Freq: Status: Active Protocol: Document 03/28/18 09:45 DCW (Rec: 03/28/18 10:29 DCW [id number]) Functional Tests 6 Minute Walk Test Distance 870' Device Used 4WW PT-OP-M Strength Start: 10/12/17 18:11 Freq: Status: Active Protocol: Document 03/28/18 09:45 DCW (Rec: 03/28/18 10:29 DCW [id number]) Hip Strength Hip Manual Muscle Testing Right Flexion (L2) 5 Normal Abduction 5 Normal Adduction 5 Normal Left Flexion (L2) 4+ Good+ Abduction 5 Normal Adduction 5 Normal Knee Strength Knee Manual Muscle Testing Right Flexion (S2) 5 Normal Extension (L3) 5 Normal Left Flexion (S2) 4+ Good+ Extension (L3) 5 Normal Ankle/Foot Strength Ankle and Foot Manual Muscle Testing Right Dorsiflexion (L4) 2- Poor- Plantarflexion (S1) 3+ Fair+ Left Dorsiflexion (L4) 4+ Good+ Plantarflexion (S1) 5 Normal PT-OP-Q Treatments Start: 09/28/17 15:21 Freq: Status: Active Protocol: Document 04/14/18 09:35 DCW (Rec: 04/14/18 10:26 DCW [id number]) Gym Equipment Shuttle Recovery Bilateral Heel Raises Resistance 125# Shuttle Recovery Platform Stable Reps/Time x60 Unilateral Squats Resistance 87# Shuttle Recovery Platform Stable Reps/Time x20 Bilateral Squats Resistance 162# Shuttle Recovery Platform Stable Reps/Time x30 Shuttle Balance 1 Details Yellow - Wide WILIAN Therapeutic Exercises Other Exercises 1 Other Exercise Name Resisted Side-stepping Side bilateral Resistance Green Equipment Used T-band Gait Training Gait Activity 3 Device Used 4WW Level of Assistance SBA Distance/Duration 890' Treatment Focus Increased gait distance/ tolerance Comments v/c for joan, foot clearance PT-OP-T Assessment and Plan Start: 09/28/17 15:21 Freq: Status: Active Protocol: Document 04/14/18 09:35 DCW (Rec: 04/14/18 10:26 DCW [id number]) Physical Therapy Assessment Impairments Impairments Activity Tolerance Balance Functional Activities Functional Mobility Gait ROM Strength Goals Seven Impairment Donis Short Term Goal (STG) Pt to score 22/56 on Donis Balance scale STG Duration Met Food Trades Assistants Goal (LTG) Pt to score 35/56 on Donis Balance scale LTG Duration 06/20/18 Six Impairment Static Standing Balance Food Trades Assistants Goal (LTG) Pt to stand independently for 2 minutes LTG Duration 06/20/18 Five Impairment 6 MWT Food Trades Assistants Goal (LTG) Pt to ambulate 1000' without rest using 4WW during 6 MWT LTG Duration 06/20/18 Four Impairment Foot slap Short Term Goal (STG) Pt to regularly wear R AFO to limit foot drop and help normalize gait pattern STG Duration Met Three Impairment Transfers Short Term Goal (STG) Pt to transfer independently from mat<->w/c with no assistive devices STG Duration Met Two Impairment Ankle weakness Half-Way Goal (LTG) Pt to display 2/5 MMT in R DF, 4/5 MMT in R PF, and 4+/5 MMT in all other bilateral ankle movements LTG Duration 06/20/18 - Improving One Impairment Activity tolerance Food Trades Assistants Goal (LTG) Pt to tolerate activity up to 15 minutes without a break LTG Duration 06/20/18 Assessment Summary Assessment Pt's back pain did limit his walking today, stopping ~60 earlier than his usual distance, however he was still able to do well on the shuttle balance. Physical Therapy Plan Frequency and Duration Frequency of Treatment 2x/Week Duration of Treatment 12 weeks Plan of Care Start Date 03/28/18 Plan of Care End Date 06/20/18 Therapeutic Interventions Therapeutic Interventions Aquatic Therapy Balance Training Gait Training Home Exercise Program Manual Therapy Neuromuscular Re-education Soft Tissue Mobilization Therapeutic Activities Therapeutic Exercises Next Visit Focus/Plan Next Note Type Treatment Note Next Visit Plan Continue current POC
--- NOTE | 2018-04-18 10:19 | PT.OTN ---
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 with return to pre-existing conscious level, subsequent encounter (04/18/18) History of falling (04/18/18) Physical Therapy Treatment Note PT-OP-A Visit Information Start: 09/28/17 15:21 Freq: Status: Active Protocol: Document 04/18/18 09:45 DCW (Rec: 04/18/18 10:19 DCW [id number]) Out-Patient Physical Therapy Visit Information Visit Information Visit Type Treatment Note Visit Note Pt requested stopping 15 minutes early due to conflicting appointments Visit Start Time 09:45 Visit Stop Time 10:15 Total Visit Minutes 30 Visit Number 60 Number of GARMENT MENDER Visits 0 Evaluation Information Evaluation Date 07/27/17 PT-OP-B Current Condition Start: 09/28/17 15:21 Freq: Status: Active Protocol: Document 10/12/17 13:45 DCW (Rec: 10/12/17 18:33 DCW [id number]) Current Condition History of Current Condition Onset Date 02/05/17 History of Current Condition See Pt's initial evaluation in Therapy Source Current Functional Impairments (Reported) Functional Limitations- Mobility/Gait Transfers:W/C<->Mat Stand- pivot: Independent PT-OP-C Subjective Start: 09/28/17 15:21 Freq: Status: Active Protocol: Document 04/18/18 09:45 DCW (Rec: 04/18/18 10:19 DCW [id number]) OP-PT Subjective Patient Comments Patient Comments Pt apologizes, but requests stopping early today, as he needs to go to his PCP's office for a conference call between his PCP and his brain surgeons down in [place]. PT-OP-D Balance Start: 10/12/17 18:11 Freq: Status: Active Protocol: Document 03/28/18 09:45 DCW (Rec: 03/28/18 10:29 DCW [id number]) OP-PT Balance Assessment Standing Balance Standing Balance Comments Double leg, Eyes open: Donis Balance Assessment Evaluation Sitting to Standing Ability Independent w/Hands Unsupported Stance 30 seconds Sitting Unsupported, Feet on Floor Safely- 2 minutes Standing to Sitting Ability Assist, Control w/Hands Transfer Ability Safely, Hand Use Unsupported Stance- Eyes Closed Supervision, 10 seconds Unsupported Stance- Eyes Open Independent, <30 seconds Reaching Forward Standing Safely, 5 inches Pick- Up Object From Floor Supervision Look Behind Shoulder - Standing Supervision w/Turning Turning 360 Degrees Requires Assistance Unsupported Stance, Alternating Feet on Assist to Prevent Fall Stair Unsupported Tandem Stance Assist to Step-15 seconds Unilateral Leg Stance Unable,assist to not fall Total Score Donis Total Score (out of 56 points) 28 Donis Impairment Rating 40 to 59% Impaired (Score 23- 33) Mejia Fall Scale Copyright Permission Roberto KELLY, Roberto RM, Mark SJ. Development of a scale to identify the fall- prone patient. Can J Aging 1989;8;366-7. Catrachita Mejia (2009). Preventing patient falls. (2nd ed). [place]: [place]. PT-OP-E Functional Tests Start: 10/12/17 18:11 Freq: Status: Active Protocol: Document 03/28/18 09:45 DCW (Rec: 03/28/18 10:29 DCW [id number]) Functional Tests 6 Minute Walk Test Distance 870' Device Used 4WW PT-OP-M Strength Start: 10/12/17 18:11 Freq: Status: Active Protocol: Document 03/28/18 09:45 DCW (Rec: 03/28/18 10:29 DCW [id number]) Hip Strength Hip Manual Muscle Testing Right Flexion (L2) 5 Normal Abduction 5 Normal Adduction 5 Normal Left Flexion (L2) 4+ Good+ Abduction 5 Normal Adduction 5 Normal Knee Strength Knee Manual Muscle Testing Right Flexion (S2) 5 Normal Extension (L3) 5 Normal Left Flexion (S2) 4+ Good+ Extension (L3) 5 Normal Ankle/Foot Strength Ankle and Foot Manual Muscle Testing Right Dorsiflexion (L4) 2- Poor- Plantarflexion (S1) 3+ Fair+ Left Dorsiflexion (L4) 4+ Good+ Plantarflexion (S1) 5 Normal PT-OP-Q Treatments Start: 09/28/17 15:21 Freq: Status: Active Protocol: Document 04/18/18 09:45 DCW (Rec: 04/18/18 10:19 DCW [id number]) Gym Equipment Shuttle Recovery Bilateral Heel Raises Resistance 125# Shuttle Recovery Platform Stable Reps/Time x60 Unilateral Squats Resistance 87# Shuttle Recovery Platform Stable Reps/Time x20 Bilateral Squats Resistance 162# Shuttle Recovery Platform Stable Reps/Time x30 Gait Training Gait Activity 3 Device Used 4WW Level of Assistance SBA Distance/Duration 1100' Treatment Focus Increased gait distance/ tolerance Comments v/c for joan, foot clearance PT-OP-T Assessment and Plan Start: 09/28/17 15:21 Freq: Status: Active Protocol: Document 04/18/18 09:45 DCW (Rec: 04/18/18 10:19 DCW [id number]) Physical Therapy Assessment Impairments Impairments Activity Tolerance Balance Functional Activities Functional Mobility Gait ROM Strength Goals Seven Impairment Donis Short Term Goal (STG) Pt to score 22/56 on Donis Balance scale STG Duration Met Punch Operator Goal (LTG) Pt to score 35/56 on Donis Balance scale LTG Duration 06/20/18 Six Impairment Static Standing Balance Punch Operator Goal (LTG) Pt to stand independently for 2 minutes LTG Duration 06/20/18 Five Impairment 6 MWT Punch Operator Goal (LTG) Pt to ambulate 1000' without rest using 4WW during 6 MWT LTG Duration 06/20/18 Four Impairment Foot slap Short Term Goal (STG) Pt to regularly wear R AFO to limit foot drop and help normalize gait pattern STG Duration Met Three Impairment Transfers Short Term Goal (STG) Pt to transfer independently from mat<->w/c with no assistive devices STG Duration Met Two Impairment Ankle weakness Residential Goal (LTG) Pt to display 2/5 MMT in R DF, 4/5 MMT in R PF, and 4+/5 MMT in all other bilateral ankle movements LTG Duration 06/20/18 - Improving One Impairment Activity tolerance Punch Operator Goal (LTG) Pt to tolerate activity up to 15 minutes without a break LTG Duration 06/20/18 Assessment Summary Assessment Pt's back was much better today, pt able to walk farther with no limitations. Decreased session time limited amount of activity. Physical Therapy Plan Frequency and Duration Frequency of Treatment 2x/Week Duration of Treatment 12 weeks Plan of Care Start Date 03/28/18 Plan of Care End Date 06/20/18 Therapeutic Interventions Therapeutic Interventions Aquatic Therapy Balance Training Gait Training Home Exercise Program Manual Therapy Neuromuscular Re-education Soft Tissue Mobilization Therapeutic Activities Therapeutic Exercises Next Visit Focus/Plan Next Note Type Treatment Note Next Visit Plan Continue current POC
--- NOTE | 2018-04-20 10:28 | PT.OTN ---
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 with return to pre-existing conscious level, subsequent encounter (04/20/18) History of falling (04/20/18) Physical Therapy Treatment Note PT-OP-A Visit Information Start: 09/28/17 15:21 Freq: Status: Active Protocol: Document 04/20/18 09:45 DCW (Rec: 04/20/18 10:27 DCW [id number]) Out-Patient Physical Therapy Visit Information Visit Information Visit Type Treatment Note Visit Start Time 09:45 Visit Stop Time 10:30 Total Visit Minutes 45 Visit Number 61 Number of WHOLESALE DIAMOND BROKER Visits 0 Evaluation Information Evaluation Date 07/27/17 PT-OP-B Current Condition Start: 09/28/17 15:21 Freq: Status: Active Protocol: Document 10/12/17 13:45 DCW (Rec: 10/12/17 18:33 DCW [id number]) Current Condition History of Current Condition Onset Date 02/05/17 History of Current Condition See Pt's initial evaluation in Therapy Source Current Functional Impairments (Reported) Functional Limitations- Mobility/Gait Transfers:W/C<->Mat Stand- pivot: Independent PT-OP-C Subjective Start: 09/28/17 15:21 Freq: Status: Active Protocol: Document 04/20/18 09:45 DCW (Rec: 04/20/18 10:27 DCW [id number]) OP-PT Subjective Patient Comments Patient Comments Pt reports that his conference call on Wednesday didn't go as well as I wanted. Not that it was bad, I just want it to be over. PT-OP-D Balance Start: 10/12/17 18:11 Freq: Status: Active Protocol: Document 03/28/18 09:45 DCW (Rec: 03/28/18 10:29 DCW [id number]) OP-PT Balance Assessment Standing Balance Standing Balance Comments Double leg, Eyes open: Donis Balance Assessment Evaluation Sitting to Standing Ability Independent w/Hands Unsupported Stance 30 seconds Sitting Unsupported, Feet on Floor Safely- 2 minutes Standing to Sitting Ability Assist, Control w/Hands Transfer Ability Safely, Hand Use Unsupported Stance- Eyes Closed Supervision, 10 seconds Unsupported Stance- Eyes Open Independent, <30 seconds Reaching Forward Standing Safely, 5 inches Pick- Up Object From Floor Supervision Look Behind Shoulder - Standing Supervision w/Turning Turning 360 Degrees Requires Assistance Unsupported Stance, Alternating Feet on Assist to Prevent Fall Stair Unsupported Tandem Stance Assist to Step-15 seconds Unilateral Leg Stance Unable,assist to not fall Total Score Donis Total Score (out of 56 points) 28 Donis Impairment Rating 40 to 59% Impaired (Score 23- 33) Roberto Fall Scale Copyright Permission Roberto KELLY, Roberto RM, Mark SJ. Development of a scale to identify the fall- prone patient. Can J Aging 1989;8;366-7. Catrachita Mejia (2009). Preventing patient falls. (2nd ed). [place]: Marquis. PT-OP-E Functional Tests Start: 10/12/17 18:11 Freq: Status: Active Protocol: Document 03/28/18 09:45 DCW (Rec: 03/28/18 10:29 DCW [id number]) Functional Tests 6 Minute Walk Test Distance 870' Device Used 4WW PT-OP-M Strength Start: 10/12/17 18:11 Freq: Status: Active Protocol: Document 03/28/18 09:45 DCW (Rec: 03/28/18 10:29 DCW [id number]) Hip Strength Hip Manual Muscle Testing Right Flexion (L2) 5 Normal Abduction 5 Normal Adduction 5 Normal Left Flexion (L2) 4+ Good+ Abduction 5 Normal Adduction 5 Normal Knee Strength Knee Manual Muscle Testing Right Flexion (S2) 5 Normal Extension (L3) 5 Normal Left Flexion (S2) 4+ Good+ Extension (L3) 5 Normal Ankle/Foot Strength Ankle and Foot Manual Muscle Testing Right Dorsiflexion (L4) 2- Poor- Plantarflexion (S1) 3+ Fair+ Left Dorsiflexion (L4) 4+ Good+ Plantarflexion (S1) 5 Normal PT-OP-Q Treatments Start: 09/28/17 15:21 Freq: Status: Active Protocol: Document 04/20/18 09:45 DCW (Rec: 04/20/18 10:27 DCW [id number]) Gym Equipment Shuttle Recovery Bilateral Heel Raises Resistance 137# Shuttle Recovery Platform Stable Reps/Time x60 Unilateral Squats Resistance 87# Shuttle Recovery Platform Stable Reps/Time x20 Bilateral Squats Resistance 162# Shuttle Recovery Platform Stable Reps/Time x30 Shuttle Balance 1 Details Yellow - Wide WILIAN Therapeutic Exercises Other Exercises 1 Other Exercise Name Resisted Side-stepping Side bilateral Resistance Green Equipment Used T-band Gait Training Gait Activity 3 Device Used 4WW Level of Assistance SBA Distance/Duration 1100' Treatment Focus Increased gait distance/ tolerance Comments v/c for joan, foot clearance PT-OP-T Assessment and Plan Start: 09/28/17 15:21 Freq: Status: Active Protocol: Document 04/20/18 09:45 DCW (Rec: 04/20/18 10:27 DCW [id number]) Physical Therapy Assessment Impairments Impairments Activity Tolerance Balance Functional Activities Functional Mobility Gait ROM Strength Goals Seven Impairment Donis Short Term Goal (STG) Pt to score 22/56 on Donis Balance scale STG Duration Met [facility] Goal (LTG) Pt to score 35/56 on Donis Balance scale LTG Duration 06/20/18 Six Impairment Static Standing Balance Fourchette Sewer Goal (LTG) Pt to stand independently for 2 minutes LTG Duration 06/20/18 Five Impairment 6 MWT Fourchette Sewer Goal (LTG) Pt to ambulate 1000' without rest using 4WW during 6 MWT LTG Duration 06/20/18 Four Impairment Foot slap Short Term Goal (STG) Pt to regularly wear R AFO to limit foot drop and help normalize gait pattern STG Duration Met Three Impairment Transfers Short Term Goal (STG) Pt to transfer independently from mat<->w/c with no assistive devices STG Duration Met Two Impairment Ankle weakness Fourchette Sewer Goal (LTG) Pt to display 2/5 MMT in R DF, 4/5 MMT in R PF, and 4+/5 MMT in all other bilateral ankle movements LTG Duration 06/20/18 - Improving One Impairment Activity tolerance Fourchette Sewer Goal (LTG) Pt to tolerate activity up to 15 minutes without a break LTG Duration 06/20/18 Assessment Summary Assessment Pt increased ambulation speed for first half of todays walk, although he fatigued and slowed down for the second half. Physical Therapy Plan Frequency and Duration Frequency of Treatment 2x/Week Duration of Treatment 12 weeks Plan of Care Start Date 03/28/18 Plan of Care End Date 06/20/18 Therapeutic Interventions Therapeutic Interventions Aquatic Therapy Balance Training Gait Training Home Exercise Program Manual Therapy Neuromuscular Re-education Soft Tissue Mobilization Therapeutic Activities Therapeutic Exercises Next Visit Focus/Plan Next Note Type Treatment Note Next Visit Plan Continue current POC
--- NOTE | 2018-04-25 10:29 | PT.OTN ---
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 with return to pre-existing conscious level, subsequent encounter (04/25/18) History of falling (04/25/18) Physical Therapy Treatment Note PT-OP-A Visit Information Start: 09/28/17 15:21 Freq: Status: Active Protocol: Document 04/25/18 09:45 DCW (Rec: 04/25/18 10:26 DCW [id number]) Out-Patient Physical Therapy Visit Information Visit Information Visit Type Treatment Note Visit Start Time 09:45 Visit Stop Time 10:30 Total Visit Minutes 45 Visit Number 62 Number of WINDOWS DEPLOYMENT TECHNICIAN Visits 0 Evaluation Information Evaluation Date 07/27/17 PT-OP-B Current Condition Start: 09/28/17 15:21 Freq: Status: Active Protocol: Document 10/12/17 13:45 DCW (Rec: 10/12/17 18:33 DCW [id number]) Current Condition History of Current Condition Onset Date 02/05/17 History of Current Condition See Pt's initial evaluation in Therapy Source Current Functional Impairments (Reported) Functional Limitations- Mobility/Gait Transfers:W/C<->Mat Stand- pivot: Independent PT-OP-C Subjective Start: 09/28/17 15:21 Freq: Status: Active Protocol: Document 04/25/18 09:45 DCW (Rec: 04/25/18 10:26 DCW [id number]) OP-PT Subjective Patient Comments Patient Comments Pt reports he is a little tired today, but overall feels pretty good. PT-OP-D Balance Start: 10/12/17 18:11 Freq: Status: Active Protocol: Document 03/28/18 09:45 DCW (Rec: 03/28/18 10:29 DCW [id number]) OP-PT Balance Assessment Standing Balance Standing Balance Comments Double leg, Eyes open: Donis Balance Assessment Evaluation Sitting to Standing Ability Independent w/Hands Unsupported Stance 30 seconds Sitting Unsupported, Feet on Floor Safely- 2 minutes Standing to Sitting Ability Assist, Control w/Hands Transfer Ability Safely, Hand Use Unsupported Stance- Eyes Closed Supervision, 10 seconds Unsupported Stance- Eyes Open Independent, <30 seconds Reaching Forward Standing Safely, 5 inches Pick- Up Object From Floor Supervision Look Behind Shoulder - Standing Supervision w/Turning Turning 360 Degrees Requires Assistance Unsupported Stance, Alternating Feet on Assist to Prevent Fall Stair Unsupported Tandem Stance Assist to Step-15 seconds Unilateral Leg Stance Unable,assist to not fall Total Score Donis Total Score (out of 56 points) 28 Donis Impairment Rating 40 to 59% Impaired (Score 23- 33) Roberto Fall Scale Copyright Permission Roberto JM, Roberto RM, Mark SJ. Development of a scale to identify the fall- prone patient. Can J Aging 1989;8;366-7. Catrachita Mejia (2009). Preventing patient falls. (2nd ed). [place]: Marquis. PT-OP-E Functional Tests Start: 10/12/17 18:11 Freq: Status: Active Protocol: Document 03/28/18 09:45 DCW (Rec: 03/28/18 10:29 DCW [id number]) Functional Tests 6 Minute Walk Test Distance 870' Device Used 4WW PT-OP-M Strength Start: 10/12/17 18:11 Freq: Status: Active Protocol: Document 03/28/18 09:45 DCW (Rec: 03/28/18 10:29 DCW [id number]) Hip Strength Hip Manual Muscle Testing Right Flexion (L2) 5 Normal Abduction 5 Normal Adduction 5 Normal Left Flexion (L2) 4+ Good+ Abduction 5 Normal Adduction 5 Normal Knee Strength Knee Manual Muscle Testing Right Flexion (S2) 5 Normal Extension (L3) 5 Normal Left Flexion (S2) 4+ Good+ Extension (L3) 5 Normal Ankle/Foot Strength Ankle and Foot Manual Muscle Testing Right Dorsiflexion (L4) 2- Poor- Plantarflexion (S1) 3+ Fair+ Left Dorsiflexion (L4) 4+ Good+ Plantarflexion (S1) 5 Normal PT-OP-Q Treatments Start: 09/28/17 15:21 Freq: Status: Active Protocol: Document 04/25/18 09:45 DCW (Rec: 04/25/18 10:26 DCW [id number]) Gym Equipment Shuttle Recovery Bilateral Heel Raises Resistance 137# Shuttle Recovery Platform Stable Reps/Time x60 Unilateral Squats Resistance 87# Shuttle Recovery Platform Stable Reps/Time x20 Bilateral Squats Resistance 162# Shuttle Recovery Platform Stable Reps/Time x30 Gait Training Gait Activity 3 Device Used 4WW Level of Assistance SBA Distance/Duration 1100' Treatment Focus Increased gait distance/ tolerance Neuro Re-Education Treatment Balance Activities 6 Details SLS with UE support at rail 5 Details BOSU Standing 2 Details Unsupported DL standing Comments cues for posture Other Activities 1 Details Standing balance testing, Donis balance test PT-OP-T Assessment and Plan Start: 09/28/17 15:21 Freq: Status: Active Protocol: Document 04/25/18 09:45 DCW (Rec: 04/25/18 10:26 DCW [id number]) Physical Therapy Assessment Impairments Impairments Activity Tolerance Balance Functional Activities Functional Mobility Gait ROM Strength Goals Seven Impairment Donis Short Term Goal (STG) Pt to score 22/56 on Donis Balance scale STG Duration Met Safety Advisor Goal (LTG) Pt to score 35/56 on Donis Balance scale LTG Duration 06/20/18 Six Impairment Static Standing Balance Group Home Goal (LTG) Pt to stand independently for 2 minutes LTG Duration 06/20/18 Five Impairment 6 MWT Safety Advisor Goal (LTG) Pt to ambulate 1000' without rest using 4WW during 6 MWT LTG Duration 06/20/18 Four Impairment Foot slap Short Term Goal (STG) Pt to regularly wear R AFO to limit foot drop and help normalize gait pattern STG Duration Met Three Impairment Transfers Short Term Goal (STG) Pt to transfer independently from mat<->w/c with no assistive devices STG Duration Met Two Impairment Ankle weakness Safety Advisor Goal (LTG) Pt to display 2/5 MMT in R DF, 4/5 MMT in R PF, and 4+/5 MMT in all other bilateral ankle movements LTG Duration 06/20/18 - Improving One Impairment Activity tolerance Group Home Goal (LTG) Pt to tolerate activity up to 15 minutes without a break LTG Duration 06/20/18 Assessment Summary Assessment Pt clearly fatigued today, however he was still able to perform all activities. Physical Therapy Plan Frequency and Duration Frequency of Treatment 2x/Week Duration of Treatment 12 weeks Plan of Care Start Date 03/28/18 Plan of Care End Date 06/20/18 Therapeutic Interventions Therapeutic Interventions Aquatic Therapy Balance Training Gait Training Home Exercise Program Manual Therapy Neuromuscular Re-education Soft Tissue Mobilization Therapeutic Activities Therapeutic Exercises Next Visit Focus/Plan Next Note Type Treatment Note Next Visit Plan Continue current POC
--- NOTE | 2018-04-27 12:40 | PT.OTN ---
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 greater than 24 hours with return to pre-existing conscious level, subsequent encounter (04/27/18) History of falling (04/27/18) Physical Therapy Treatment Note PT-OP-A Visit Information Start: 09/28/17 15:21 Freq: Status: Active Protocol: Document 04/27/18 12:00 DCW (Rec: 04/27/18 12:40 DCW [id number]) Out-Patient Physical Therapy Visit Information Visit Information Visit Type Treatment Note Visit Start Time 12:00 Visit Stop Time 12:40 Total Visit Minutes 40 Visit Number 63 Number of POWER HOUSE ENGINEER Visits 0 Evaluation Information Evaluation Date 07/27/17 PT-OP-B Current Condition Start: 09/28/17 15:21 Freq: Status: Active Protocol: Document 10/12/17 13:45 DCW (Rec: 10/12/17 18:33 DCW [id number]) Current Condition History of Current Condition Onset Date 02/05/17 History of Current Condition See Pt's initial evaluation in Therapy Source Current Functional Impairments (Reported) Functional Limitations- Mobility/Gait Transfers:W/C<->Mat Stand- pivot: Independent PT-OP-C Subjective Start: 09/28/17 15:21 Freq: Status: Active Protocol: Document 04/27/18 12:00 DCW (Rec: 04/27/18 12:40 DCW [id number]) OP-PT Subjective Patient Comments Patient Comments Pt reports he has to leave a few minutes early today to get to another appointment. PT-OP-D Balance Start: 10/12/17 18:11 Freq: Status: Active Protocol: Document 03/28/18 09:45 DCW (Rec: 03/28/18 10:29 DCW [id number]) OP-PT Balance Assessment Standing Balance Standing Balance Comments Double leg, Eyes open: Donis Balance Assessment Evaluation Sitting to Standing Ability Independent w/Hands Unsupported Stance 30 seconds Sitting Unsupported, Feet on Floor Safely- 2 minutes Standing to Sitting Ability Assist, Control w/Hands Transfer Ability Safely, Hand Use Unsupported Stance- Eyes Closed Supervision, 10 seconds Unsupported Stance- Eyes Open Independent, <30 seconds Reaching Forward Standing Safely, 5 inches Pick- Up Object From Floor Supervision Look Behind Shoulder - Standing Supervision w/Turning Turning 360 Degrees Requires Assistance Unsupported Stance, Alternating Feet on Assist to Prevent Fall Stair Unsupported Tandem Stance Assist to Step-15 seconds Unilateral Leg Stance Unable,assist to not fall Total Score Donis Total Score (out of 56 points) 28 Donis Impairment Rating 40 to 59% Impaired (Score 23- 33) Roberto Fall Scale Copyright Permission Roberto JM, Roberto RM, Mark SJ. Development of a scale to identify the fall- prone patient. Can J Aging 1989;8;366-7. Catrachita Mejia (2009). Preventing patient falls. (2nd ed). [place]: Marquis. PT-OP-E Functional Tests Start: 10/12/17 18:11 Freq: Status: Active Protocol: Document 03/28/18 09:45 DCW (Rec: 03/28/18 10:29 DCW [id number]) Functional Tests 6 Minute Walk Test Distance 870' Device Used 4WW PT-OP-M Strength Start: 10/12/17 18:11 Freq: Status: Active Protocol: Document 03/28/18 09:45 DCW (Rec: 03/28/18 10:29 DCW [id number]) Hip Strength Hip Manual Muscle Testing Right Flexion (L2) 5 Normal Abduction 5 Normal Adduction 5 Normal Left Flexion (L2) 4+ Good+ Abduction 5 Normal Adduction 5 Normal Knee Strength Knee Manual Muscle Testing Right Flexion (S2) 5 Normal Extension (L3) 5 Normal Left Flexion (S2) 4+ Good+ Extension (L3) 5 Normal Ankle/Foot Strength Ankle and Foot Manual Muscle Testing Right Dorsiflexion (L4) 2- Poor- Plantarflexion (S1) 3+ Fair+ Left Dorsiflexion (L4) 4+ Good+ Plantarflexion (S1) 5 Normal PT-OP-Q Treatments Start: 09/28/17 15:21 Freq: Status: Active Protocol: Document 04/27/18 12:00 DCW (Rec: 04/27/18 12:40 DCW [id number]) Gym Equipment Shuttle Recovery Bilateral Heel Raises Resistance 137# Shuttle Recovery Platform Stable Reps/Time x60 Unilateral Squats Resistance 87# Shuttle Recovery Platform Stable Reps/Time x20 Bilateral Squats Resistance 162# Shuttle Recovery Platform Stable Reps/Time x30 Therapeutic Exercises Other Exercises 1 Other Exercise Name Resisted Side-stepping Side bilateral Resistance Green Equipment Used T-band Gait Training Gait Activity 3 Device Used 4WW Level of Assistance SBA Distance/Duration 1100' Treatment Focus Increased gait distance/ tolerance Neuro Re-Education Treatment Balance Activities 2 Details Unsupported DL standing Comments cues for posture PT-OP-T Assessment and Plan Start: 09/28/17 15:21 Freq: Status: Active Protocol: Document 04/27/18 12:00 DCW (Rec: 04/27/18 12:40 DCW [id number]) Physical Therapy Assessment Impairments Impairments Activity Tolerance Balance Functional Activities Functional Mobility Gait ROM Strength Goals Seven Impairment Donis Short Term Goal (STG) Pt to score 22/56 on Donis Balance scale STG Duration Met Jail Goal (LTG) Pt to score 35/56 on Donis Balance scale LTG Duration 06/20/18 Six Impairment Static Standing Balance Jail Goal (LTG) Pt to stand independently for 2 minutes LTG Duration 06/20/18 Five Impairment 6 MWT Jail Goal (LTG) Pt to ambulate 1000' without rest using 4WW during 6 MWT LTG Duration 06/20/18 Four Impairment Foot slap Short Term Goal (STG) Pt to regularly wear R AFO to limit foot drop and help normalize gait pattern STG Duration Met Three Impairment Transfers Short Term Goal (STG) Pt to transfer independently from mat<->w/c with no assistive devices STG Duration Met Two Impairment Ankle weakness Marine Service Operator Goal (LTG) Pt to display 2/5 MMT in R DF, 4/5 MMT in R PF, and 4+/5 MMT in all other bilateral ankle movements LTG Duration 06/20/18 - Improving One Impairment Activity tolerance Marine Service Operator Goal (LTG) Pt to tolerate activity up to 15 minutes without a break LTG Duration 06/20/18 Assessment Summary Assessment Less fatigue today, pt displayed improved unsupported stance. Physical Therapy Plan Frequency and Duration Frequency of Treatment 2x/Week Duration of Treatment 12 weeks Plan of Care Start Date 03/28/18 Plan of Care End Date 06/20/18 Therapeutic Interventions Therapeutic Interventions Aquatic Therapy Balance Training Gait Training Home Exercise Program Manual Therapy Neuromuscular Re-education Soft Tissue Mobilization Therapeutic Activities Therapeutic Exercises Next Visit Focus/Plan Next Note Type Treatment Note Next Visit Plan Continue current POC
--- NOTE | 2018-05-04 12:46 | PT.OTN ---
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 with return to pre-existing conscious level, subsequent encounter (05/04/18) History of falling (05/04/18) Physical Therapy Treatment Note PT-OP-A Visit Information Start: 09/28/17 15:21 Freq: Status: Active Protocol: Document 05/04/18 12:00 DCW (Rec: 05/04/18 12:46 DCW [id number]) Out-Patient Physical Therapy Visit Information Visit Information Visit Type Treatment Note Visit Start Time 12:00 Visit Stop Time 12:45 Total Visit Minutes 40 Visit Number 64 Number of LABEL DESIGNER Visits 0 Evaluation Information Evaluation Date 07/27/17 PT-OP-B Current Condition Start: 09/28/17 15:21 Freq: Status: Active Protocol: Document 10/12/17 13:45 DCW (Rec: 10/12/17 18:33 DCW [id number]) Current Condition History of Current Condition Onset Date 02/05/17 History of Current Condition See Pt's initial evaluation in Therapy Source Current Functional Impairments (Reported) Functional Limitations- Mobility/Gait Transfers:W/C<->Mat Stand- pivot: Independent PT-OP-C Subjective Start: 09/28/17 15:21 Freq: Status: Active Protocol: Document 05/04/18 12:00 DCW (Rec: 05/04/18 12:46 DCW [id number]) OP-PT Subjective Patient Comments Patient Comments Pt doing well today, but notes that his shoe and brace feels like it is not on correctly today. PT-OP-D Balance Start: 10/12/17 18:11 Freq: Status: Active Protocol: Document 03/28/18 09:45 DCW (Rec: 03/28/18 10:29 DCW [id number]) OP-PT Balance Assessment Standing Balance Standing Balance Comments Double leg, Eyes open: 1 Donis Balance Assessment Evaluation Sitting to Standing Ability Independent w/Hands Unsupported Stance 30 seconds Sitting Unsupported, Feet on Floor Safely- 2 minutes Standing to Sitting Ability Assist, Control w/Hands Transfer Ability Safely, Hand Use Unsupported Stance- Eyes Closed Supervision, 10 seconds Unsupported Stance- Eyes Open Independent, <30 seconds Reaching Forward Standing Safely, 5 inches Pick- Up Object From Floor Supervision Look Behind Shoulder - Standing Supervision w/Turning Turning 360 Degrees Requires Assistance Unsupported Stance, Alternating Feet on Assist to Prevent Fall Stair Unsupported Tandem Stance Assist to Step-15 seconds Unilateral Leg Stance Unable,assist to not fall Total Score Donis Total Score (out of 56 points) 28 Donis Impairment Rating 40 to 59% Impaired (Score 23- 33) Roberto Fall Scale Copyright Permission Roberto KELLY, Roberto RM, Mark SJ. Development of a scale to identify the fall- prone patient. Can J Aging 1989;8;366-7. Catrachita Mejia (2009). Preventing patient falls. (2nd ed). [place]: [place]. PT-OP-E Functional Tests Start: 10/12/17 18:11 Freq: Status: Active Protocol: Document 03/28/18 09:45 DCW (Rec: 03/28/18 10:29 DCW [id number]) Functional Tests 6 Minute Walk Test Distance 870' Device Used 4WW PT-OP-M Strength Start: 10/12/17 18:11 Freq: Status: Active Protocol: Document 03/28/18 09:45 DCW (Rec: 03/28/18 10:29 DCW [id number]) Hip Strength Hip Manual Muscle Testing Right Flexion (L2) 5 Normal Abduction 5 Normal Adduction 5 Normal Left Flexion (L2) 4+ Good+ Abduction 5 Normal Adduction 5 Normal Knee Strength Knee Manual Muscle Testing Right Flexion (S2) 5 Normal Extension (L3) 5 Normal Left Flexion (S2) 4+ Good+ Extension (L3) 5 Normal Ankle/Foot Strength Ankle and Foot Manual Muscle Testing Right Dorsiflexion (L4) 2- Poor- Plantarflexion (S1) 3+ Fair+ Left Dorsiflexion (L4) 4+ Good+ Plantarflexion (S1) 5 Normal PT-OP-Q Treatments Start: 09/28/17 15:21 Freq: Status: Active Protocol: Document 05/04/18 12:00 DCW (Rec: 05/04/18 12:46 DCW [id number]) Gym Equipment Shuttle Recovery Bilateral Heel Raises Resistance 137# Shuttle Recovery Platform Stable Reps/Time x60 Unilateral Squats Resistance 87# Shuttle Recovery Platform Stable Reps/Time x20 Bilateral Squats Resistance 162# Shuttle Recovery Platform Stable Reps/Time x30 Therapeutic Exercises Other Exercises 1 Other Exercise Name Resisted Side-stepping Side bilateral Resistance Green Equipment Used T-band Gait Training Gait Activity 3 Device Used 4WW Level of Assistance SBA Distance/Duration 1100' Treatment Focus Increased gait distance/ tolerance Neuro Re-Education Treatment Balance Activities 2 Details Unsupported DL standing Comments cues for posture PT-OP-T Assessment and Plan Start: 09/28/17 15:21 Freq: Status: Active Protocol: Document 05/04/18 12:00 DCW (Rec: 05/04/18 12:46 DCW [id number]) Physical Therapy Assessment Impairments Impairments Activity Tolerance Balance Functional Activities Functional Mobility Gait ROM Strength Goals Seven Impairment Donis Short Term Goal (STG) Pt to score 22/56 on Donis Balance scale STG Duration Met Dental Patient Coordinator Goal (LTG) Pt to score 35/56 on Donis Balance scale LTG Duration 06/20/18 Six Impairment Static Standing Balance Dental Patient Coordinator Goal (LTG) Pt to stand independently for 2 minutes LTG Duration 06/20/18 Five Impairment 6 MWT Half-Way Goal (LTG) Pt to ambulate 1000' without rest using 4WW during 6 MWT LTG Duration 06/20/18 Four Impairment Foot slap Short Term Goal (STG) Pt to regularly wear R AFO to limit foot drop and help normalize gait pattern STG Duration Met Three Impairment Transfers Short Term Goal (STG) Pt to transfer independently from mat<->w/c with no assistive devices STG Duration Met Two Impairment Ankle weakness Dental Patient Coordinator Goal (LTG) Pt to display 2/5 MMT in R DF, 4/5 MMT in R PF, and 4+/5 MMT in all other bilateral ankle movements LTG Duration 06/20/18 - Improving One Impairment Activity tolerance Half-Way Goal (LTG) Pt to tolerate activity up to 15 minutes without a break LTG Duration 06/20/18 Assessment Summary Assessment Despite fatigue, pt able to participate fully in therapy today. Physical Therapy Plan Frequency and Duration Frequency of Treatment 2x/Week Duration of Treatment 12 weeks Plan of Care Start Date 03/28/18 Plan of Care End Date 06/20/18 Therapeutic Interventions Therapeutic Interventions Aquatic Therapy Balance Training Gait Training Home Exercise Program Manual Therapy Neuromuscular Re-education Soft Tissue Mobilization Therapeutic Activities Therapeutic Exercises Next Visit Focus/Plan Next Note Type Treatment Note Next Visit Plan Continue current POC
--- NOTE | 2018-05-10 10:30 | PT.OTN ---
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 with return to pre-existing conscious level, subsequent encounter (05/10/18) History of falling (05/10/18) Physical Therapy Treatment Note PT-OP-A Visit Information Start: 09/28/17 15:21 Freq: Status: Active Protocol: Document 05/10/18 09:45 DCW (Rec: 05/10/18 11:43 DCW [id number]) Out-Patient Physical Therapy Visit Information Visit Information Visit Type Treatment Note Visit Start Time 09:45 Visit Stop Time 10:30 Total Visit Minutes 45 Visit Number 65 Number of RECORD TESTER Visits 0 Evaluation Information Evaluation Date 07/27/17 PT-OP-B Current Condition Start: 09/28/17 15:21 Freq: Status: Active Protocol: Document 10/12/17 13:45 DCW (Rec: 10/12/17 18:33 DCW [id number]) Current Condition History of Current Condition Onset Date 02/05/17 History of Current Condition See Pt's initial evaluation in Therapy Source Current Functional Impairments (Reported) Functional Limitations- Mobility/Gait Transfers:W/C<->Mat Stand- pivot: Independent PT-OP-C Subjective Start: 09/28/17 15:21 Freq: Status: Active Protocol: Document 05/10/18 09:45 DCW (Rec: 05/10/18 11:43 DCW [id number]) OP-PT Subjective Patient Comments Patient Comments Pt reports he is doing well today, feeling more energetic and no new complaints. PT-OP-D Balance Start: 10/12/17 18:11 Freq: Status: Active Protocol: Document 03/28/18 09:45 DCW (Rec: 03/28/18 10:29 DCW [id number]) OP-PT Balance Assessment Standing Balance Standing Balance Comments Double leg, Eyes open: Donis Balance Assessment Evaluation Sitting to Standing Ability Independent w/Hands Unsupported Stance 30 seconds Sitting Unsupported, Feet on Floor Safely- 2 minutes Standing to Sitting Ability Assist, Control w/Hands Transfer Ability Safely, Hand Use Unsupported Stance- Eyes Closed Supervision, 10 seconds Unsupported Stance- Eyes Open Independent, <30 seconds Reaching Forward Standing Safely, 5 inches Pick- Up Object From Floor Supervision Look Behind Shoulder - Standing Supervision w/Turning Turning 360 Degrees Requires Assistance Unsupported Stance, Alternating Feet on Assist to Prevent Fall Stair Unsupported Tandem Stance Assist to Step-15 seconds Unilateral Leg Stance Unable,assist to not fall Total Score Donis Total Score (out of 56 points) 28 Donis Impairment Rating 40 to 59% Impaired (Score 23- 33) Roberto Fall Scale Copyright Permission Roberto JM, Roberto RM, Mark SJ. Development of a scale to identify the fall- prone patient. Can J Aging 1989;8;366-7. Catrachita Mejia (2009). Preventing patient falls. (2nd ed). [place]: Marquis. PT-OP-E Functional Tests Start: 10/12/17 18:11 Freq: Status: Active Protocol: Document 03/28/18 09:45 DCW (Rec: 03/28/18 10:29 DCW [id number]) Functional Tests 6 Minute Walk Test Distance 870' Device Used 4WW PT-OP-M Strength Start: 10/12/17 18:11 Freq: Status: Active Protocol: Document 03/28/18 09:45 DCW (Rec: 03/28/18 10:29 DCW [id number]) Hip Strength Hip Manual Muscle Testing Right Flexion (L2) 5 Normal Abduction 5 Normal Adduction 5 Normal Left Flexion (L2) 4+ Good+ Abduction 5 Normal Adduction 5 Normal Knee Strength Knee Manual Muscle Testing Right Flexion (S2) 5 Normal Extension (L3) 5 Normal Left Flexion (S2) 4+ Good+ Extension (L3) 5 Normal Ankle/Foot Strength Ankle and Foot Manual Muscle Testing Right Dorsiflexion (L4) 2- Poor- Plantarflexion (S1) 3+ Fair+ Left Dorsiflexion (L4) 4+ Good+ Plantarflexion (S1) 5 Normal PT-OP-Q Treatments Start: 09/28/17 15:21 Freq: Status: Active Protocol: Document 05/10/18 09:45 DCW (Rec: 05/10/18 11:43 DCW [id number]) Gym Equipment Shuttle Recovery Bilateral Heel Raises Resistance 137# Shuttle Recovery Platform Stable Reps/Time x60 Unilateral Squats Resistance 87# Shuttle Recovery Platform Stable Reps/Time x20 Bilateral Squats Resistance 162# Shuttle Recovery Platform Stable Reps/Time x30 Shuttle Balance 1 Details Blue - Wide WILIAN Therapeutic Exercises Other Exercises 1 Other Exercise Name Resisted Side-stepping Side bilateral Resistance Green Equipment Used T-band Gait Training Gait Activity 3 Device Used 4WW Level of Assistance SBA Distance/Duration 1100' Treatment Focus Increased gait distance/ tolerance PT-OP-T Assessment and Plan Start: 09/28/17 15:21 Freq: Status: Active Protocol: Document 05/10/18 09:45 DCW (Rec: 05/10/18 11:43 DCW [id number]) Physical Therapy Assessment Impairments Impairments Activity Tolerance Balance Functional Activities Functional Mobility Gait ROM Strength Goals Seven Impairment Donis Short Term Goal (STG) Pt to score 22/56 on Donis Balance scale STG Duration Met Fire Prevention Chief Goal (LTG) Pt to score 35/56 on Donis Balance scale LTG Duration 06/20/18 Six Impairment Static Standing Balance Fire Prevention Chief Goal (LTG) Pt to stand independently for 2 minutes LTG Duration 06/20/18 Five Impairment 6 MWT Fire Prevention Chief Goal (LTG) Pt to ambulate 1000' without rest using 4WW during 6 MWT LTG Duration 06/20/18 Four Impairment Foot slap Short Term Goal (STG) Pt to regularly wear R AFO to limit foot drop and help normalize gait pattern STG Duration Met Three Impairment Transfers Short Term Goal (STG) Pt to transfer independently from mat<->w/c with no assistive devices STG Duration Met Two Impairment Ankle weakness Fire Prevention Chief Goal (LTG) Pt to display 2/5 MMT in R DF, 4/5 MMT in R PF, and 4+/5 MMT in all other bilateral ankle movements LTG Duration 06/20/18 - Improving One Impairment Activity tolerance Fire Prevention Chief Goal (LTG) Pt to tolerate activity up to 15 minutes without a break LTG Duration 06/20/18 Assessment Summary Assessment Pt tolerating treatment with fewer breaks today. Does note that he and his plan to decrease frequency of PT to 1x /week over April, to decrease the number of overall appointments they need to get to to be able to relax at home a little more. Physical Therapy Plan Frequency and Duration Frequency of Treatment 2x/Week Duration of Treatment 12 weeks Plan of Care Start Date 03/28/18 Plan of Care End Date 06/20/18 Therapeutic Interventions Therapeutic Interventions Aquatic Therapy Balance Training Gait Training Home Exercise Program Manual Therapy Neuromuscular Re-education Soft Tissue Mobilization Therapeutic Activities Therapeutic Exercises Next Visit Focus/Plan Next Note Type Treatment Note Next Visit Plan Continue current POC
--- NOTE | 2018-05-20 10:30 | PT.OTN ---
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 with return to pre-existing conscious level, subsequent encounter (05/20/18) History of falling (05/20/18) Physical Therapy Treatment Note PT-OP-A Visit Information Start: 09/28/17 15:21 Freq: Status: Active Protocol: Document 05/20/18 09:45 DCW (Rec: 05/20/18 10:30 DCW [id number]) Out-Patient Physical Therapy Visit Information Visit Information Visit Type Treatment Note Visit Start Time 09:45 Visit Stop Time 10:30 Total Visit Minutes 45 Visit Number 66 Number of BACTERIOLOGY TEACHER Visits 0 Evaluation Information Evaluation Date 07/27/17 PT-OP-B Current Condition Start: 09/28/17 15:21 Freq: Status: Active Protocol: Document 10/12/17 13:45 DCW (Rec: 10/12/17 18:33 DCW [id number]) Current Condition History of Current Condition Onset Date 02/05/17 History of Current Condition See Pt's initial evaluation in Therapy Source Current Functional Impairments (Reported) Functional Limitations- Mobility/Gait Transfers:W/C<->Mat Stand- pivot: Independent PT-OP-C Subjective Start: 09/28/17 15:21 Freq: Status: Active Protocol: Document 05/20/18 09:45 DCW (Rec: 05/20/18 10:30 DCW [id number]) OP-PT Subjective Patient Comments Patient Comments Pt complains of bad back tightness today. PT-OP-D Balance Start: 10/12/17 18:11 Freq: Status: Active Protocol: Document 03/28/18 09:45 DCW (Rec: 03/28/18 10:29 DCW [id number]) OP-PT Balance Assessment Standing Balance Standing Balance Comments Double leg, Eyes open: Donis Balance Assessment Evaluation Sitting to Standing Ability Independent w/Hands Unsupported Stance 30 seconds Sitting Unsupported, Feet on Floor Safely- 2 minutes Standing to Sitting Ability Assist, Control w/Hands Transfer Ability Safely, Hand Use Unsupported Stance- Eyes Closed Supervision, 10 seconds Unsupported Stance- Eyes Open Independent, <30 seconds Reaching Forward Standing Safely, 5 inches Pick- Up Object From Floor Supervision Look Behind Shoulder - Standing Supervision w/Turning Turning 360 Degrees Requires Assistance Unsupported Stance, Alternating Feet on Assist to Prevent Fall Stair Unsupported Tandem Stance Assist to Step-15 seconds Unilateral Leg Stance Unable,assist to not fall Total Score Donis Total Score (out of 56 points) 28 Donis Impairment Rating 40 to 59% Impaired (Score 23- 33) Roberto Fall Scale Copyright Permission Roberto JM, Roberto RM, Mark SJ. Development of a scale to identify the fall- prone patient. Can J Aging 1989;8;366-7. Catrachita Mejia (2009). Preventing patient falls. (2nd ed). [place]: Marquis. PT-OP-E Functional Tests Start: 10/12/17 18:11 Freq: Status: Active Protocol: Document 03/28/18 09:45 DCW (Rec: 03/28/18 10:29 DCW [id number]) Functional Tests 6 Minute Walk Test Distance 870' Device Used 4WW PT-OP-M Strength Start: 10/12/17 18:11 Freq: Status: Active Protocol: Document 03/28/18 09:45 DCW (Rec: 03/28/18 10:29 DCW [id number]) Hip Strength Hip Manual Muscle Testing Right Flexion (L2) 5 Normal Abduction 5 Normal Adduction 5 Normal Left Flexion (L2) 4+ Good+ Abduction 5 Normal Adduction 5 Normal Knee Strength Knee Manual Muscle Testing Right Flexion (S2) 5 Normal Extension (L3) 5 Normal Left Flexion (S2) 4+ Good+ Extension (L3) 5 Normal Ankle/Foot Strength Ankle and Foot Manual Muscle Testing Right Dorsiflexion (L4) 2- Poor- Plantarflexion (S1) 3+ Fair+ Left Dorsiflexion (L4) 4+ Good+ Plantarflexion (S1) 5 Normal PT-OP-Q Treatments Start: 09/28/17 15:21 Freq: Status: Active Protocol: Document 05/20/18 09:45 DCW (Rec: 05/20/18 10:30 DCW [id number]) Gym Equipment Shuttle Recovery Bilateral Heel Raises Resistance 137# Shuttle Recovery Platform Stable Reps/Time x60 Unilateral Squats Resistance 87# Shuttle Recovery Platform Stable Reps/Time x20 Bilateral Squats Resistance 162# Shuttle Recovery Platform Stable Reps/Time x30 Therapeutic Exercises Other Exercises 1 Other Exercise Name Resisted Side-stepping Side bilateral Resistance Green Equipment Used T-band Gait Training Gait Activity 3 Device Used 4WW Level of Assistance SBA Distance/Duration 760' x1, 340' x1 Treatment Focus Increased gait distance/ tolerance Neuro Re-Education Treatment Balance Activities 2 Details Unsupported DL standing Comments cues for posture PT-OP-T Assessment and Plan Start: 09/28/17 15:21 Freq: Status: Active Protocol: Document 05/20/18 09:45 DCW (Rec: 05/20/18 10:30 DCW [id number]) Physical Therapy Assessment Impairments Impairments Activity Tolerance Balance Functional Activities Functional Mobility Gait ROM Strength Goals Seven Impairment Donis Short Term Goal (STG) Pt to score 22/56 on Donis Balance scale STG Duration Met Rv Detailer Goal (LTG) Pt to score 35/56 on Donis Balance scale LTG Duration 06/20/18 Six Impairment Static Standing Balance Longterm Goal (LTG) Pt to stand independently for 2 minutes LTG Duration 06/20/18 Five Impairment 6 MWT Longterm Goal (LTG) Pt to ambulate 1000' without rest using 4WW during 6 MWT LTG Duration 06/20/18 Four Impairment Foot slap Short Term Goal (STG) Pt to regularly wear R AFO to limit foot drop and help normalize gait pattern STG Duration Met Three Impairment Transfers Short Term Goal (STG) Pt to transfer independently from mat<->w/c with no assistive devices STG Duration Met Two Impairment Ankle weakness Rv Detailer Goal (LTG) Pt to display 2/5 MMT in R DF, 4/5 MMT in R PF, and 4+/5 MMT in all other bilateral ankle movements LTG Duration 06/20/18 - Improving One Impairment Activity tolerance Rv Detailer Goal (LTG) Pt to tolerate activity up to 15 minutes without a break LTG Duration 06/20/18 Assessment Summary Assessment Pt had increased difficulty today due to his back pain, required more rest breaks and struggled to perform the same amount of weight/reps compared to his normal. Physical Therapy Plan Frequency and Duration Frequency of Treatment 2x/Week Duration of Treatment 12 weeks Plan of Care Start Date 03/28/18 Plan of Care End Date 06/20/18 Therapeutic Interventions Therapeutic Interventions Aquatic Therapy Balance Training Gait Training Home Exercise Program Manual Therapy Neuromuscular Re-education Soft Tissue Mobilization Therapeutic Activities Therapeutic Exercises Next Visit Focus/Plan Next Note Type Treatment Note Next Visit Plan Continue current POC
--- NOTE | 2018-05-27 11:16 | PT.OTN ---
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 with return to pre-existing conscious level, subsequent encounter (05/27/18) History of falling (05/27/18) Physical Therapy Treatment Note PT-OP-A Visit Information Start: 09/28/17 15:21 Freq: Status: Active Protocol: Document 05/27/18 10:30 DCW (Rec: 05/27/18 11:16 DCW [id number]) Out-Patient Physical Therapy Visit Information Visit Information Visit Type Treatment Note Visit Start Time 10:30 Visit Stop Time 11:15 Total Visit Minutes 45 Visit Number 67 Number of DEFENCE FORCE SENIOR OFFICER Visits 0 Evaluation Information Evaluation Date 07/27/17 PT-OP-B Current Condition Start: 09/28/17 15:21 Freq: Status: Active Protocol: Document 10/12/17 13:45 DCW (Rec: 10/12/17 18:33 DCW [id number]) Current Condition History of Current Condition Onset Date 02/05/17 History of Current Condition See Pt's initial evaluation in Therapy Source Current Functional Impairments (Reported) Functional Limitations- Mobility/Gait Transfers:W/C<->Mat Stand- pivot: Independent PT-OP-C Subjective Start: 09/28/17 15:21 Freq: Status: Active Protocol: Document 05/27/18 10:30 DCW (Rec: 05/27/18 11:16 DCW [id number]) OP-PT Subjective Patient Comments Patient Comments Pt reports he did not sleep at all last night. PT-OP-D Balance Start: 10/12/17 18:11 Freq: Status: Active Protocol: Document 03/28/18 09:45 DCW (Rec: 03/28/18 10:29 DCW [id number]) OP-PT Balance Assessment Standing Balance Standing Balance Comments Double leg, Eyes open: Donis Balance Assessment Evaluation Sitting to Standing Ability Independent w/Hands Unsupported Stance 30 seconds Sitting Unsupported, Feet on Floor Safely- 2 minutes Standing to Sitting Ability Assist, Control w/Hands Transfer Ability Safely, Hand Use Unsupported Stance- Eyes Closed Supervision, 10 seconds Unsupported Stance- Eyes Open Independent, <30 seconds Reaching Forward Standing Safely, 5 inches Pick- Up Object From Floor Supervision Look Behind Shoulder - Standing Supervision w/Turning Turning 360 Degrees Requires Assistance Unsupported Stance, Alternating Feet on Assist to Prevent Fall Stair Unsupported Tandem Stance Assist to Step-15 seconds Unilateral Leg Stance Unable,assist to not fall Total Score Donis Total Score (out of 56 points) 28 Donis Impairment Rating 40 to 59% Impaired (Score 23- 33) Mejia Fall Scale Copyright Permission Roberto JM, Roberto RM, Mark SJ. Development of a scale to identify the fall- prone patient. Can J Aging 1989;8;366-7. Catrachita Mejia (2009). Preventing patient falls. (2nd ed). [place]: [place]. PT-OP-E Functional Tests Start: 10/12/17 18:11 Freq: Status: Active Protocol: Document 03/28/18 09:45 DCW (Rec: 03/28/18 10:29 DCW [id number]) Functional Tests 6 Minute Walk Test Distance 870' Device Used 4WW PT-OP-M Strength Start: 10/12/17 18:11 Freq: Status: Active Protocol: Document 03/28/18 09:45 DCW (Rec: 03/28/18 10:29 DCW [id number]) Hip Strength Hip Manual Muscle Testing Right Flexion (L2) 5 Normal Abduction 5 Normal Adduction 5 Normal Left Flexion (L2) 4+ Good+ Abduction 5 Normal Adduction 5 Normal Knee Strength Knee Manual Muscle Testing Right Flexion (S2) 5 Normal Extension (L3) 5 Normal Left Flexion (S2) 4+ Good+ Extension (L3) 5 Normal Ankle/Foot Strength Ankle and Foot Manual Muscle Testing Right Dorsiflexion (L4) 2- Poor- Plantarflexion (S1) 3+ Fair+ Left Dorsiflexion (L4) 4+ Good+ Plantarflexion (S1) 5 Normal PT-OP-Q Treatments Start: 09/28/17 15:21 Freq: Status: Active Protocol: Document 05/27/18 10:30 DCW (Rec: 05/27/18 11:16 DCW [id number]) Gym Equipment Shuttle Recovery Bilateral Heel Raises Resistance 137# Shuttle Recovery Platform Stable Reps/Time x60 Unilateral Squats Resistance 87# Shuttle Recovery Platform Stable Reps/Time x20 Bilateral Squats Resistance 162# Shuttle Recovery Platform Stable Reps/Time x30 Therapeutic Exercises Other Exercises 1 Other Exercise Name Resisted Side-stepping Side bilateral Resistance Green Equipment Used T-band Gait Training Gait Activity 3 Device Used 4WW Level of Assistance SBA Distance/Duration 1270' Treatment Focus Increased gait distance/ tolerance Neuro Re-Education Treatment Balance Activities 2 Details Unsupported DL standing Comments cues for posture PT-OP-T Assessment and Plan Start: 09/28/17 15:21 Freq: Status: Active Protocol: Document 05/27/18 10:30 DCW (Rec: 05/27/18 11:16 DCW [id number]) Physical Therapy Assessment Impairments Impairments Activity Tolerance Balance Functional Activities Functional Mobility Gait ROM Strength Goals Seven Impairment Donis Short Term Goal (STG) Pt to score 22/56 on Donis Balance scale STG Duration Met Nursing Home Goal (LTG) Pt to score 35/56 on Donis Balance scale LTG Duration 06/20/18 Six Impairment Static Standing Balance Assembly Member Goal (LTG) Pt to stand independently for 2 minutes LTG Duration 06/20/18 Five Impairment 6 MWT Assembly Member Goal (LTG) Pt to ambulate 1000' without rest using 4WW during 6 MWT LTG Duration 06/20/18 Four Impairment Foot slap Short Term Goal (STG) Pt to regularly wear R AFO to limit foot drop and help normalize gait pattern STG Duration Met Three Impairment Transfers Short Term Goal (STG) Pt to transfer independently from mat<->w/c with no assistive devices STG Duration Met Two Impairment Ankle weakness Assembly Member Goal (LTG) Pt to display 2/5 MMT in R DF, 4/5 MMT in R PF, and 4+/5 MMT in all other bilateral ankle movements LTG Duration 06/20/18 - Improving One Impairment Activity tolerance Nursing Home Goal (LTG) Pt to tolerate activity up to 15 minutes without a break LTG Duration 06/20/18 Assessment Summary Assessment Pt had his most productive walking session today, ambulating 1270 feet with minimal verbal cues for posture and step length. Physical Therapy Plan Frequency and Duration Frequency of Treatment 2x/Week Duration of Treatment 12 weeks Plan of Care Start Date 03/28/18 Plan of Care End Date 06/20/18 Therapeutic Interventions Therapeutic Interventions Aquatic Therapy Balance Training Gait Training Home Exercise Program Manual Therapy Neuromuscular Re-education Soft Tissue Mobilization Therapeutic Activities Therapeutic Exercises Next Visit Focus/Plan Next Note Type Treatment Note Next Visit Plan Continue current POC
--- NOTE | 2018-06-03 10:25 | PT.OTN ---
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 with return to pre-existing conscious level, subsequent encounter (06/03/18) History of falling (06/03/18) Physical Therapy Treatment Note PT-OP-A Visit Information Start: 09/28/17 15:21 Freq: Status: Active Protocol: Document 06/03/18 09:45 DCW (Rec: 06/03/18 10:25 DCW [id number]) Out-Patient Physical Therapy Visit Information Visit Information Visit Type Treatment Note Visit Start Time 09:45 Visit Stop Time 10:30 Total Visit Minutes 45 Visit Number 68 Number of PRODUCE DEPARTMENT SUPERVISOR Visits 0 Evaluation Information Evaluation Date 07/27/17 PT-OP-B Current Condition Start: 09/28/17 15:21 Freq: Status: Active Protocol: Document 10/12/17 13:45 DCW (Rec: 10/12/17 18:33 DCW [id number]) Current Condition History of Current Condition Onset Date 02/05/17 History of Current Condition See Pt's initial evaluation in Therapy Source Current Functional Impairments (Reported) Functional Limitations- Mobility/Gait Transfers:W/C<->Mat Stand- pivot: Independent PT-OP-C Subjective Start: 09/28/17 15:21 Freq: Status: Active Protocol: Document 06/03/18 09:45 DCW (Rec: 06/03/18 10:25 DCW [id number]) OP-PT Subjective Patient Comments Patient Comments Pt reports he is doing well today, but is a little fatigued. PT-OP-D Balance Start: 10/12/17 18:11 Freq: Status: Active Protocol: Document 03/28/18 09:45 DCW (Rec: 03/28/18 10:29 DCW [id number]) OP-PT Balance Assessment Standing Balance Standing Balance Comments Double leg, Eyes open: Donis Balance Assessment Evaluation Sitting to Standing Ability Independent w/Hands Unsupported Stance 30 seconds Sitting Unsupported, Feet on Floor Safely- 2 minutes Standing to Sitting Ability Assist, Control w/Hands Transfer Ability Safely, Hand Use Unsupported Stance- Eyes Closed Supervision, 10 seconds Unsupported Stance- Eyes Open Independent, <30 seconds Reaching Forward Standing Safely, 5 inches Pick- Up Object From Floor Supervision Look Behind Shoulder - Standing Supervision w/Turning Turning 360 Degrees Requires Assistance Unsupported Stance, Alternating Feet on Assist to Prevent Fall Stair Unsupported Tandem Stance Assist to Step-15 seconds Unilateral Leg Stance Unable,assist to not fall Total Score Donis Total Score (out of 56 points) 28 Donis Impairment Rating 40 to 59% Impaired (Score 23- 33) Roberto Fall Scale Copyright Permission Roberto JM, Roberto RM, Mark SJ. Development of a scale to identify the fall- prone patient. Can J Aging 1989;8;366-7. Catrachita Mejia (2009). Preventing patient falls. (2nd ed). [place]: Marquis. PT-OP-E Functional Tests Start: 10/12/17 18:11 Freq: Status: Active Protocol: Document 03/28/18 09:45 DCW (Rec: 03/28/18 10:29 DCW [id number]) Functional Tests 6 Minute Walk Test Distance 870' Device Used 4WW PT-OP-M Strength Start: 10/12/17 18:11 Freq: Status: Active Protocol: Document 03/28/18 09:45 DCW (Rec: 03/28/18 10:29 DCW [id number]) Hip Strength Hip Manual Muscle Testing Right Flexion (L2) 5 Normal Abduction 5 Normal Adduction 5 Normal Left Flexion (L2) 4+ Good+ Abduction 5 Normal Adduction 5 Normal Knee Strength Knee Manual Muscle Testing Right Flexion (S2) 5 Normal Extension (L3) 5 Normal Left Flexion (S2) 4+ Good+ Extension (L3) 5 Normal Ankle/Foot Strength Ankle and Foot Manual Muscle Testing Right Dorsiflexion (L4) 2- Poor- Plantarflexion (S1) 3+ Fair+ Left Dorsiflexion (L4) 4+ Good+ Plantarflexion (S1) 5 Normal PT-OP-Q Treatments Start: 09/28/17 15:21 Freq: Status: Active Protocol: Document 06/03/18 09:45 DCW (Rec: 06/03/18 10:25 DCW [id number]) Gym Equipment Shuttle Recovery Bilateral Heel Raises Resistance 137# Shuttle Recovery Platform Stable Reps/Time x60 Unilateral Squats Resistance 87# Shuttle Recovery Platform Stable Reps/Time x20 Bilateral Squats Resistance 162# Shuttle Recovery Platform Stable Reps/Time x30 Therapeutic Exercises Other Exercises 1 Other Exercise Name Resisted Side-stepping Side bilateral Resistance Green Equipment Used T-band Gait Training Gait Activity 3 Device Used 4WW Level of Assistance SBA Distance/Duration 930' Treatment Focus Increased gait distance/ tolerance Neuro Re-Education Treatment Balance Activities 2 Details Unsupported DL standing Comments cues for posture PT-OP-T Assessment and Plan Start: 09/28/17 15:21 Freq: Status: Active Protocol: Document 06/03/18 09:45 DCW (Rec: 06/03/18 10:25 DCW [id number]) Physical Therapy Assessment Impairments Impairments Activity Tolerance Balance Functional Activities Functional Mobility Gait ROM Strength Goals Seven Impairment Donis Short Term Goal (STG) Pt to score 22/56 on Donis Balance scale STG Duration Met Senior Care Goal (LTG) Pt to score 35/56 on Donis Balance scale LTG Duration 06/20/18 Six Impairment Static Standing Balance Senior Care Goal (LTG) Pt to stand independently for 2 minutes LTG Duration 06/20/18 Five Impairment 6 MWT Internal Corrosion Specialist Goal (LTG) Pt to ambulate 1000' without rest using 4WW during 6 MWT LTG Duration 06/20/18 Four Impairment Foot slap Short Term Goal (STG) Pt to regularly wear R AFO to limit foot drop and help normalize gait pattern STG Duration Met Three Impairment Transfers Short Term Goal (STG) Pt to transfer independently from mat<->w/c with no assistive devices STG Duration Met Two Impairment Ankle weakness Senior Care Goal (LTG) Pt to display 2/5 MMT in R DF, 4/5 MMT in R PF, and 4+/5 MMT in all other bilateral ankle movements LTG Duration 06/20/18 - Improving One Impairment Activity tolerance Senior Care Goal (LTG) Pt to tolerate activity up to 15 minutes without a break LTG Duration 06/20/18 Assessment Summary Assessment Pt showed increased fatigue today, unable to walk as far as he has been, and required longer rest breaks. Physical Therapy Plan Frequency and Duration Frequency of Treatment 2x/Week Duration of Treatment 12 weeks Plan of Care Start Date 03/28/18 Plan of Care End Date 06/20/18 Therapeutic Interventions Therapeutic Interventions Aquatic Therapy Balance Training Gait Training Home Exercise Program Manual Therapy Neuromuscular Re-education Soft Tissue Mobilization Therapeutic Activities Therapeutic Exercises Next Visit Focus/Plan Next Note Type Treatment Note Next Visit Plan Continue current POC
--- NOTE | 2018-06-07 14:00 | PT.OTN ---
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 greater than 24 hours with return to pre-existing conscious level, subsequent encounter (06/07/18) History of falling (06/07/18) Physical Therapy Treatment Note PT-OP-A Visit Information Start: 09/28/17 15:21 Freq: Status: Active Protocol: Document 06/07/18 10:30 DCW (Rec: 06/07/18 14:00 DCW [id number]) Out-Patient Physical Therapy Visit Information Visit Information Visit Type Treatment Note Visit Start Time 10:30 Visit Stop Time 11:15 Total Visit Minutes 45 Visit Number 69 Number of BELT PUNCHER Visits 0 Evaluation Information Evaluation Date 07/27/17 PT-OP-B Current Condition Start: 09/28/17 15:21 Freq: Status: Active Protocol: Document 10/12/17 13:45 DCW (Rec: 10/12/17 18:33 DCW [id number]) Current Condition History of Current Condition Onset Date 02/05/17 History of Current Condition See Pt's initial evaluation in Therapy Source Current Functional Impairments (Reported) Functional Limitations- Mobility/Gait Transfers:W/C<->Mat Stand- pivot: Independent PT-OP-C Subjective Start: 09/28/17 15:21 Freq: Status: Active Protocol: Document 06/07/18 10:30 DCW (Rec: 06/07/18 14:00 DCW [id number]) OP-PT Subjective Patient Comments Patient Comments Pt reports he had a headache this morning, and due to his history wants to be sure we keep an eye on it, but notes it is getting better and he feels pretty normal at the moment. PT-OP-D Balance Start: 10/12/17 18:11 Freq: Status: Active Protocol: Document 03/28/18 09:45 DCW (Rec: 03/28/18 10:29 DCW [id number]) OP-PT Balance Assessment Standing Balance Standing Balance Comments Double leg, Eyes open: Donis Balance Assessment Evaluation Sitting to Standing Ability Independent w/Hands Unsupported Stance 30 seconds Sitting Unsupported, Feet on Floor Safely- 2 minutes Standing to Sitting Ability Assist, Control w/Hands Transfer Ability Safely, Hand Use Unsupported Stance- Eyes Closed Supervision, 10 seconds Unsupported Stance- Eyes Open Independent, <30 seconds Reaching Forward Standing Safely, 5 inches Pick- Up Object From Floor Supervision Look Behind Shoulder - Standing Supervision w/Turning Turning 360 Degrees Requires Assistance Unsupported Stance, Alternating Feet on Assist to Prevent Fall Stair Unsupported Tandem Stance Assist to Step-15 seconds Unilateral Leg Stance Unable,assist to not fall Total Score Donis Total Score (out of 56 points) 28 Donis Impairment Rating 40 to 59% Impaired (Score 23- 33) Mejia Fall Scale Copyright Permission Roberto KELLY, Roberto RM, Mark SJ. Development of a scale to identify the fall- prone patient. Can J Aging 1989;8;366-7. Catrachita Mejia (2009). Preventing patient falls. (2nd ed). [place]: Marquis. PT-OP-E Functional Tests Start: 10/12/17 18:11 Freq: Status: Active Protocol: Document 03/28/18 09:45 DCW (Rec: 03/28/18 10:29 DCW [id number]) Functional Tests 6 Minute Walk Test Distance 870' Device Used 4WW PT-OP-M Strength Start: 10/12/17 18:11 Freq: Status: Active Protocol: Document 03/28/18 09:45 DCW (Rec: 03/28/18 10:29 DCW [id number]) Hip Strength Hip Manual Muscle Testing Right Flexion (L2) 5 Normal Abduction 5 Normal Adduction 5 Normal Left Flexion (L2) 4+ Good+ Abduction 5 Normal Adduction 5 Normal Knee Strength Knee Manual Muscle Testing Right Flexion (S2) 5 Normal Extension (L3) 5 Normal Left Flexion (S2) 4+ Good+ Extension (L3) 5 Normal Ankle/Foot Strength Ankle and Foot Manual Muscle Testing Right Dorsiflexion (L4) 2- Poor- Plantarflexion (S1) 3+ Fair+ Left Dorsiflexion (L4) 4+ Good+ Plantarflexion (S1) 5 Normal PT-OP-Q Treatments Start: 09/28/17 15:21 Freq: Status: Active Protocol: Document 06/07/18 10:30 DCW (Rec: 06/07/18 14:00 DCW [id number]) Gym Equipment Shuttle Recovery Bilateral Heel Raises Resistance 137# Shuttle Recovery Platform Stable Reps/Time x60 Unilateral Squats Resistance 87# Shuttle Recovery Platform Stable Reps/Time x20 Bilateral Squats Resistance 162# Shuttle Recovery Platform Stable Reps/Time x30 Therapeutic Exercises Other Exercises 1 Other Exercise Name Resisted Side-stepping Side bilateral Resistance Green Equipment Used T-band Gait Training Gait Activity 3 Device Used 4WW Level of Assistance SBA Distance/Duration 1270' Treatment Focus Increased gait distance/ tolerance Neuro Re-Education Treatment Balance Activities 3 Details Hurdles/Foam at rail Equipment Hurdles, Foam Comments Staggered and Side-stepping PT-OP-T Assessment and Plan Start: 09/28/17 15:21 Freq: Status: Active Protocol: Document 06/07/18 10:30 DCW (Rec: 06/07/18 14:00 DCW [id number]) Physical Therapy Assessment Impairments Impairments Activity Tolerance Balance Functional Activities Functional Mobility Gait ROM Strength Goals Seven Impairment Donis Short Term Goal (STG) Pt to score 22/56 on Donis Balance scale STG Duration Met Family Services Manager Goal (LTG) Pt to score 35/56 on Donis Balance scale LTG Duration 06/20/18 Six Impairment Static Standing Balance Family Services Manager Goal (LTG) Pt to stand independently for 2 minutes LTG Duration 06/20/18 Five Impairment 6 MWT Correction Goal (LTG) Pt to ambulate 1000' without rest using 4WW during 6 MWT LTG Duration 06/20/18 Four Impairment Foot slap Short Term Goal (STG) Pt to regularly wear R AFO to limit foot drop and help normalize gait pattern STG Duration Met Three Impairment Transfers Short Term Goal (STG) Pt to transfer independently from mat<->w/c with no assistive devices STG Duration Met Two Impairment Ankle weakness Correction Goal (LTG) Pt to display 2/5 MMT in R DF, 4/5 MMT in R PF, and 4+/5 MMT in all other bilateral ankle movements LTG Duration 06/20/18 - Improving One Impairment Activity tolerance Family Services Manager Goal (LTG) Pt to tolerate activity up to 15 minutes without a break LTG Duration 06/20/18 Assessment Summary Assessment Pt doing well today despite an earlier headache. Physical Therapy Plan Frequency and Duration Frequency of Treatment 2x/Week Duration of Treatment 12 weeks Plan of Care Start Date 03/28/18 Plan of Care End Date 06/20/18 Therapeutic Interventions Therapeutic Interventions Aquatic Therapy Balance Training Gait Training Home Exercise Program Manual Therapy Neuromuscular Re-education Soft Tissue Mobilization Therapeutic Activities Therapeutic Exercises Next Visit Focus/Plan Next Note Type Treatment Note Next Visit Plan Continue current POC
--- NOTE | 2018-06-10 10:31 | PT.OTN ---
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 greater than 24 hours with return to pre-existing conscious level, subsequent encounter (06/10/18) History of falling (06/10/18) Physical Therapy Treatment Note PT-OP-A Visit Information Start: 09/28/17 15:21 Freq: Status: Active Protocol: Document 06/10/18 09:45 DCW (Rec: 06/10/18 10:31 DCW [id number]) Out-Patient Physical Therapy Visit Information Visit Information Visit Type Treatment Note Visit Start Time 09:45 Visit Stop Time 10:30 Total Visit Minutes 45 Visit Number 70 Number of VALUE STREAM MANAGER Visits 0 Evaluation Information Evaluation Date 07/27/17 PT-OP-B Current Condition Start: 09/28/17 15:21 Freq: Status: Active Protocol: Document 10/12/17 13:45 DCW (Rec: 10/12/17 18:33 DCW [id number]) Current Condition History of Current Condition Onset Date 02/05/17 History of Current Condition See Pt's initial evaluation in Therapy Source Current Functional Impairments (Reported) Functional Limitations- Mobility/Gait Transfers:W/C<->Mat Stand- pivot: Independent PT-OP-C Subjective Start: 09/28/17 15:21 Freq: Status: Active Protocol: Document 06/10/18 09:45 DCW (Rec: 06/10/18 10:31 DCW [id number]) OP-PT Subjective Patient Comments Patient Comments Pt reports that he feels good today, bu this right foot is swollen up like a football, and he is unsure why, but it doesn't hurt at all. PT-OP-D Balance Start: 10/12/17 18:11 Freq: Status: Active Protocol: Document 03/28/18 09:45 DCW (Rec: 03/28/18 10:29 DCW [id number]) OP-PT Balance Assessment Standing Balance Standing Balance Comments Double leg, Eyes open: Donis Balance Assessment Evaluation Sitting to Standing Ability Independent w/Hands Unsupported Stance 30 seconds Sitting Unsupported, Feet on Floor Safely- 2 minutes Standing to Sitting Ability Assist, Control w/Hands Transfer Ability Safely, Hand Use Unsupported Stance- Eyes Closed Supervision, 10 seconds Unsupported Stance- Eyes Open Independent, <30 seconds Reaching Forward Standing Safely, 5 inches Pick- Up Object From Floor Supervision Look Behind Shoulder - Standing Supervision w/Turning Turning 360 Degrees Requires Assistance Unsupported Stance, Alternating Feet on Assist to Prevent Fall Stair Unsupported Tandem Stance Assist to Step-15 seconds Unilateral Leg Stance Unable,assist to not fall Total Score Donis Total Score (out of 56 points) 28 Donis Impairment Rating 40 to 59% Impaired (Score 23- 33) Mejia Fall Scale Copyright Permission Roberto KELLY, Roberto RM, Mark SJ. Development of a scale to identify the fall- prone patient. Can J Aging 1989;8;366-7. Catrachita Mejia (2009). Preventing patient falls. (2nd ed). [place]: Marquis. PT-OP-E Functional Tests Start: 10/12/17 18:11 Freq: Status: Active Protocol: Document 03/28/18 09:45 DCW (Rec: 03/28/18 10:29 DCW [id number]) Functional Tests 6 Minute Walk Test Distance 870' Device Used 4WW PT-OP-M Strength Start: 10/12/17 18:11 Freq: Status: Active Protocol: Document 03/28/18 09:45 DCW (Rec: 03/28/18 10:29 DCW [id number]) Hip Strength Hip Manual Muscle Testing Right Flexion (L2) 5 Normal Abduction 5 Normal Adduction 5 Normal Left Flexion (L2) 4+ Good+ Abduction 5 Normal Adduction 5 Normal Knee Strength Knee Manual Muscle Testing Right Flexion (S2) 5 Normal Extension (L3) 5 Normal Left Flexion (S2) 4+ Good+ Extension (L3) 5 Normal Ankle/Foot Strength Ankle and Foot Manual Muscle Testing Right Dorsiflexion (L4) 2- Poor- Plantarflexion (S1) 3+ Fair+ Left Dorsiflexion (L4) 4+ Good+ Plantarflexion (S1) 5 Normal PT-OP-Q Treatments Start: 09/28/17 15:21 Freq: Status: Active Protocol: Document 06/10/18 09:45 DCW (Rec: 06/10/18 10:31 DCW [id number]) Gym Equipment Shuttle Recovery Bilateral Heel Raises Resistance 137# Shuttle Recovery Platform Stable Reps/Time x60 Unilateral Squats Resistance 87# Shuttle Recovery Platform Stable Reps/Time x20 Bilateral Squats Resistance 162# Shuttle Recovery Platform Stable Reps/Time x30 Shuttle Balance 1 Details Blue - Wide WILIAN Therapeutic Exercises Other Exercises 1 Other Exercise Name Resisted Side-stepping Side bilateral Resistance Green Equipment Used T-band Gait Training Gait Activity 3 Device Used 4WW Level of Assistance SBA Distance/Duration 930' Treatment Focus Increased gait distance/ tolerance PT-OP-T Assessment and Plan Start: 09/28/17 15:21 Freq: Status: Active Protocol: Document 06/10/18 09:45 DCW (Rec: 06/10/18 10:31 DCW [id number]) Physical Therapy Assessment Impairments Impairments Activity Tolerance Balance Functional Activities Functional Mobility Gait ROM Strength Goals Seven Impairment Donis Short Term Goal (STG) Pt to score 22/56 on Donis Balance scale STG Duration Met Staple Processing Machine Operator Goal (LTG) Pt to score 35/56 on Donis Balance scale LTG Duration 06/20/18 Six Impairment Static Standing Balance Halfway Goal (LTG) Pt to stand independently for 2 minutes LTG Duration 06/20/18 Five Impairment 6 MWT Halfway Goal (LTG) Pt to ambulate 1000' without rest using 4WW during 6 MWT LTG Duration 06/20/18 Four Impairment Foot slap Short Term Goal (STG) Pt to regularly wear R AFO to limit foot drop and help normalize gait pattern STG Duration Met Three Impairment Transfers Short Term Goal (STG) Pt to transfer independently from mat<->w/c with no assistive devices STG Duration Met Two Impairment Ankle weakness Halfway Goal (LTG) Pt to display 2/5 MMT in R DF, 4/5 MMT in R PF, and 4+/5 MMT in all other bilateral ankle movements LTG Duration 06/20/18 - Improving One Impairment Activity tolerance Staple Processing Machine Operator Goal (LTG) Pt to tolerate activity up to 15 minutes without a break LTG Duration 06/20/18 Assessment Summary Assessment Pt displaying improvement at home recently, with fire drill practice working on ascending/descending their home steps. Physical Therapy Plan Frequency and Duration Frequency of Treatment 2x/Week Duration of Treatment 12 weeks Plan of Care Start Date 03/28/18 Plan of Care End Date 06/20/18 Therapeutic Interventions Therapeutic Interventions Aquatic Therapy Balance Training Gait Training Home Exercise Program Manual Therapy Neuromuscular Re-education Soft Tissue Mobilization Therapeutic Activities Therapeutic Exercises Next Visit Focus/Plan Next Note Type Treatment Note Next Visit Plan Continue current POC
--- NOTE | 2018-06-14 13:53 | PT.OTN ---
Current Diagnoses Foot drop, right foot (06/14/18) Muscle weakness (generalized) (06/14/18) Unsteadiness on feet (06/14/18) Unspecified abnormalities of gait and mobility (06/14/18) Traumatic subdural hemorrhage with loss of consciousness greater than 24 hours with return to pre-existing conscious level, subsequent encounter (06/14/18) History of falling (06/14/18) Physical Therapy Treatment Note PT-OP-A Visit Information Start: 09/28/17 15:21 Freq: Status: Active Protocol: Document 06/14/18 10:30 DCW (Rec: 06/14/18 13:52 DCW [id number]) Out-Patient Physical Therapy Visit Information Visit Information Visit Type Treatment Note Visit Start Time 10:30 Visit Stop Time 11:15 Total Visit Minutes 45 Visit Number 71 Number of INSTRUCTOR DRAMATIC ARTS Visits 0 Evaluation Information Evaluation Date 07/27/17 PT-OP-B Current Condition Start: 09/28/17 15:21 Freq: Status: Active Protocol: Document 10/12/17 13:45 DCW (Rec: 10/12/17 18:33 DCW [id number]) Current Condition History of Current Condition Onset Date 02/05/17 History of Current Condition See Pt's initial evaluation in Therapy Source Current Functional Impairments (Reported) Functional Limitations- Mobility/Gait Transfers:W/C<->Mat Stand- pivot: Independent PT-OP-C Subjective Start: 09/28/17 15:21 Freq: Status: Active Protocol: Document 06/14/18 10:30 DCW (Rec: 06/14/18 13:52 DCW [id number]) OP-PT Subjective Patient Comments Patient Comments Pt came into the clinc today, and requested going to a private room to talk about something very serious. Pt admitted that following his L ROMERO 16 years ago, his surgeon told him he would probably never need a new hip, however he has been experiencing a lot of pain in his hip over the last few months, he just hasn' t told anybody. Notes that this morning, he was in the shower, and he got stabbing pain so bad that it caused him to fall, which he reports was more of a sliding down the tub on his left side. Once again, he did not tell anyone, but decided this must mean that he needs a new hip replacement and he reported he would contact the surgeon who performed it originally, and he would be in getting a new hip very soon. PT-OP-D Balance Start: 10/12/17 18:11 Freq: Status: Active Protocol: Document 03/28/18 09:45 DCW (Rec: 03/28/18 10:29 DCW [id number]) OP-PT Balance Assessment Standing Balance Standing Balance Comments Double leg, Eyes open: Donis Balance Assessment Evaluation Sitting to Standing Ability Independent w/Hands Unsupported Stance 30 seconds Sitting Unsupported, Feet on Floor Safely- 2 minutes Standing to Sitting Ability Assist, Control w/Hands Transfer Ability Safely, Hand Use Unsupported Stance- Eyes Closed Supervision, 10 seconds Unsupported Stance- Eyes Open Independent, <30 seconds Reaching Forward Standing Safely, 5 inches Pick- Up Object From Floor Supervision Look Behind Shoulder - Standing Supervision w/Turning Turning 360 Degrees Requires Assistance Unsupported Stance, Alternating Feet on Assist to Prevent Fall Stair Unsupported Tandem Stance Assist to Step-15 seconds Unilateral Leg Stance Unable,assist to not fall Total Score Donis Total Score (out of 56 points) 28 Donis Impairment Rating 40 to 59% Impaired (Score 23- 33) Mejia Fall Scale Copyright Permission Roberto KELLY, Roberto RM, Mark SJ. Development of a scale to identify the fall- prone patient. Can J Aging 1989;8;366-7. Catrachita Mejia (2009). Preventing patient falls. (2nd ed). [place]: Marquis. PT-OP-E Functional Tests Start: 10/12/17 18:11 Freq: Status: Active Protocol: Document 03/28/18 09:45 DCW (Rec: 03/28/18 10:29 DCW [id number]) Functional Tests 6 Minute Walk Test Distance 870' Device Used 4WW PT-OP-M Strength Start: 10/12/17 18:11 Freq: Status: Active Protocol: Document 03/28/18 09:45 DCW (Rec: 03/28/18 10:29 DCW [id number]) Hip Strength Hip Manual Muscle Testing Right Flexion (L2) 5 Normal Abduction 5 Normal Adduction 5 Normal Left Flexion (L2) 4+ Good+ Abduction 5 Normal Adduction 5 Normal Knee Strength Knee Manual Muscle Testing Right Flexion (S2) 5 Normal Extension (L3) 5 Normal Left Flexion (S2) 4+ Good+ Extension (L3) 5 Normal Ankle/Foot Strength Ankle and Foot Manual Muscle Testing Right Dorsiflexion (L4) 2- Poor- Plantarflexion (S1) 3+ Fair+ Left Dorsiflexion (L4) 4+ Good+ Plantarflexion (S1) 5 Normal PT-OP-Q Treatments Start: 09/28/17 15:21 Freq: Status: Active Protocol: Document 06/14/18 10:30 DCW (Rec: 06/14/18 13:52 DCW [id number]) Manual Therapy Treatment Soft Tissue Mobilization Piriformis Body Location L piriformis Mobilization Type Strumming Sustained Pressure Intensity/Depth Deep Body Position Sidelying PT-OP-T Assessment and Plan Start: 09/28/17 15:21 Freq: Status: Active Protocol: Document 06/14/18 10:30 DCW (Rec: 06/14/18 13:52 DCW [id number]) Physical Therapy Assessment Impairments Impairments Activity Tolerance Balance Functional Activities Functional Mobility Gait ROM Strength Goals Seven Impairment Donis Short Term Goal (STG) Pt to score 22/56 on Donis Balance scale STG Duration Met Auditor In Charge Goal (LTG) Pt to score 35/56 on Donis Balance scale LTG Duration 06/20/18 Six Impairment Static Standing Balance Chcf Goal (LTG) Pt to stand independently for 2 minutes LTG Duration 06/20/18 Five Impairment 6 MWT Chcf Goal (LTG) Pt to ambulate 1000' without rest using 4WW during 6 MWT LTG Duration 06/20/18 Four Impairment Foot slap Short Term Goal (STG) Pt to regularly wear R AFO to limit foot drop and help normalize gait pattern STG Duration Met Three Impairment Transfers Short Term Goal (STG) Pt to transfer independently from mat<->w/c with no assistive devices STG Duration Met Two Impairment Ankle weakness Auditor In Charge Goal (LTG) Pt to display 2/5 MMT in R DF, 4/5 MMT in R PF, and 4+/5 MMT in all other bilateral ankle movements LTG Duration 06/20/18 - Improving One Impairment Activity tolerance Chcf Goal (LTG) Pt to tolerate activity up to 15 minutes without a break LTG Duration 06/20/18 Assessment Summary Assessment Therapist and patient spent a long time discussing all possibilities other than a new knee, most notably muscle spasm, particularity due to the location of his pain. Pt assessment appeared to be suggestive of a piriformis spasm, and his hip ROM appeared to be completely WNL. As this was affecting his gait, pt was given a stretch and self-mob to perform at home, and was additionally instructed to tell his that he fell. Physical Therapy Plan Frequency and Duration Frequency of Treatment 2x/Week Duration of Treatment 12 weeks Plan of Care Start Date 03/28/18 Plan of Care End Date 06/20/18 Therapeutic Interventions Therapeutic Interventions Aquatic Therapy Balance Training Gait Training Home Exercise Program Manual Therapy Neuromuscular Re-education Soft Tissue Mobilization Therapeutic Activities Therapeutic Exercises Next Visit Focus/Plan Next Note Type Treatment Note Next Visit Plan Continue current POC
--- NOTE | 2018-06-17 10:32 | PT.OTN ---
Current Diagnoses Foot drop, right foot (06/17/18) Muscle weakness (generalized) (06/17/18) Unsteadiness on feet (06/17/18) Unspecified abnormalities of gait and mobility (06/17/18) Traumatic subdural hemorrhage with loss of consciousness greater than 24 hours with return to pre-existing conscious level, subsequent encounter (06/17/18) History of falling (06/17/18) Physical Therapy Treatment Note PT-OP-A Visit Information Start: 09/28/17 15:21 Freq: Status: Active Protocol: Document 06/17/18 09:45 DCW (Rec: 06/17/18 10:21 DCW [id number]) Out-Patient Physical Therapy Visit Information Visit Information Visit Type Treatment Note Visit Start Time 09:45 Visit Stop Time 10:30 Total Visit Minutes 45 Visit Number 72 Number of SAILING INSTRUCTOR Visits 0 Evaluation Information Evaluation Date 07/27/17 PT-OP-B Current Condition Start: 09/28/17 15:21 Freq: Status: Active Protocol: Document 10/12/17 13:45 DCW (Rec: 10/12/17 18:33 DCW [id number]) Current Condition History of Current Condition Onset Date 02/05/17 History of Current Condition See Pt's initial evaluation in Therapy Source Current Functional Impairments (Reported) Functional Limitations- Mobility/Gait Transfers:W/C<->Mat Stand- pivot: Independent PT-OP-C Subjective Start: 09/28/17 15:21 Freq: Status: Active Protocol: Document 06/17/18 09:45 DCW (Rec: 06/17/18 10:21 DCW [id number]) OP-PT Subjective Patient Comments Patient Comments Pt reports he is tired today, but his hip has felt a bit better each day since his last visit. PT-OP-D Balance Start: 10/12/17 18:11 Freq: Status: Active Protocol: Document 03/28/18 09:45 DCW (Rec: 03/28/18 10:29 DCW [id number]) OP-PT Balance Assessment Standing Balance Standing Balance Comments Double leg, Eyes open: Donis Balance Assessment Evaluation Sitting to Standing Ability Independent w/Hands Unsupported Stance 30 seconds Sitting Unsupported, Feet on Floor Safely- 2 minutes Standing to Sitting Ability Assist, Control w/Hands Transfer Ability Safely, Hand Use Unsupported Stance- Eyes Closed Supervision, 10 seconds Unsupported Stance- Eyes Open Independent, <30 seconds Reaching Forward Standing Safely, 5 inches Pick- Up Object From Floor Supervision Look Behind Shoulder - Standing Supervision w/Turning Turning 360 Degrees Requires Assistance Unsupported Stance, Alternating Feet on Assist to Prevent Fall Stair Unsupported Tandem Stance Assist to Step-15 seconds Unilateral Leg Stance Unable,assist to not fall Total Score Donis Total Score (out of 56 points) 28 Donis Impairment Rating 40 to 59% Impaired (Score 23- 33) Roberto Fall Scale Copyright Permission Roberto KELLY, Roberto RM, Mark SJ. Development of a scale to identify the fall- prone patient. Can J Aging 1989;8;366-7. Catrachita Mejia (2009). Preventing patient falls. (2nd ed). [place]: Marquis. PT-OP-E Functional Tests Start: 10/12/17 18:11 Freq: Status: Active Protocol: Document 03/28/18 09:45 DCW (Rec: 03/28/18 10:29 DCW [id number]) Functional Tests 6 Minute Walk Test Distance 870' Device Used 4WW PT-OP-M Strength Start: 10/12/17 18:11 Freq: Status: Active Protocol: Document 03/28/18 09:45 DCW (Rec: 03/28/18 10:29 DCW [id number]) Hip Strength Hip Manual Muscle Testing Right Flexion (L2) 5 Normal Abduction 5 Normal Adduction 5 Normal Left Flexion (L2) 4+ Good+ Abduction 5 Normal Adduction 5 Normal Knee Strength Knee Manual Muscle Testing Right Flexion (S2) 5 Normal Extension (L3) 5 Normal Left Flexion (S2) 4+ Good+ Extension (L3) 5 Normal Ankle/Foot Strength Ankle and Foot Manual Muscle Testing Right Dorsiflexion (L4) 2- Poor- Plantarflexion (S1) 3+ Fair+ Left Dorsiflexion (L4) 4+ Good+ Plantarflexion (S1) 5 Normal PT-OP-Q Treatments Start: 09/28/17 15:21 Freq: Status: Active Protocol: Document 06/17/18 09:45 DCW (Rec: 06/17/18 10:21 DCW [id number]) Gym Equipment Shuttle Recovery Bilateral Heel Raises Resistance 137# Shuttle Recovery Platform Stable Reps/Time x60 Unilateral Squats Resistance 87# Shuttle Recovery Platform Stable Reps/Time x20 Bilateral Squats Resistance 175# Shuttle Recovery Platform Stable Reps/Time x30 Therapeutic Exercises Supine Exercises Piriformis Stretch Supine Exercise Name Figure-4 Side left Other Exercises 1 Other Exercise Name Resisted Side-stepping Side bilateral Resistance Green Equipment Used T-band Gait Training Gait Activity 3 Device Used 4WW Level of Assistance SBA Distance/Duration 930' Treatment Focus Increased gait distance/ tolerance Manual Therapy Treatment Soft Tissue Mobilization Piriformis Body Location L piriformis Mobilization Type Strumming Sustained Pressure Intensity/Depth Deep Body Position Sidelying PT-OP-T Assessment and Plan Start: 09/28/17 15:21 Freq: Status: Active Protocol: Document 06/17/18 09:45 DCW (Rec: 06/17/18 10:21 DCW [id number]) Physical Therapy Assessment Impairments Impairments Activity Tolerance Balance Functional Activities Functional Mobility Gait ROM Strength Goals Seven Impairment Donis Short Term Goal (STG) Pt to score 22/56 on Donis Balance scale STG Duration Met Drier Transfer Car Operator Goal (LTG) Pt to score 35/56 on Donis Balance scale LTG Duration 06/20/18 Six Impairment Static Standing Balance Drier Transfer Car Operator Goal (LTG) Pt to stand independently for 2 minutes LTG Duration 06/20/18 Five Impairment 6 MWT Drier Transfer Car Operator Goal (LTG) Pt to ambulate 1000' without rest using 4WW during 6 MWT LTG Duration 06/20/18 Four Impairment Foot slap Short Term Goal (STG) Pt to regularly wear R AFO to limit foot drop and help normalize gait pattern STG Duration Met Three Impairment Transfers Short Term Goal (STG) Pt to transfer independently from mat<->w/c with no assistive devices STG Duration Met Two Impairment Ankle weakness Drier Transfer Car Operator Goal (LTG) Pt to display 2/5 MMT in R DF, 4/5 MMT in R PF, and 4+/5 MMT in all other bilateral ankle movements LTG Duration 06/20/18 - Improving One Impairment Activity tolerance Group Home Goal (LTG) Pt to tolerate activity up to 15 minutes without a break LTG Duration 06/20/18 Assessment Summary Assessment Pt tolerated addition of therapeutic intervention of piriformis stretching and manual therapy, however hip pain obviously limited his ability to ambulate and perform leg press. Physical Therapy Plan Frequency and Duration Frequency of Treatment 2x/Week Duration of Treatment 12 weeks Plan of Care Start Date 03/28/18 Plan of Care End Date 06/20/18 Therapeutic Interventions Therapeutic Interventions Aquatic Therapy Balance Training Gait Training Home Exercise Program Manual Therapy Neuromuscular Re-education Soft Tissue Mobilization Therapeutic Activities Therapeutic Exercises Next Visit Focus/Plan Next Note Type Treatment Note Next Visit Plan Continue current POC
--- NOTE | 2018-06-21 10:33 | PT.OTN ---
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 with return to pre-existing conscious level, subsequent encounter (06/21/18) History of falling (06/21/18) Physical Therapy Treatment Note PT-OP-A Visit Information Start: 09/28/17 15:21 Freq: Status: Active Protocol: Document 06/21/18 09:45 DCW (Rec: 06/21/18 10:32 DCW [id number]) Out-Patient Physical Therapy Visit Information Visit Information Visit Type Treatment Note Visit Start Time 09:45 Visit Stop Time 10:30 Total Visit Minutes 45 Visit Number 73 Number of EQUIPMENT OPERAT0R Visits 0 Evaluation Information Evaluation Date 07/27/17 PT-OP-B Current Condition Start: 09/28/17 15:21 Freq: Status: Active Protocol: Document 10/12/17 13:45 DCW (Rec: 10/12/17 18:33 DCW [id number]) Current Condition History of Current Condition Onset Date 02/05/17 History of Current Condition See Pt's initial evaluation in Therapy Source Current Functional Impairments (Reported) Functional Limitations- Mobility/Gait Transfers:W/C<->Mat Stand- pivot: Independent PT-OP-C Subjective Start: 09/28/17 15:21 Freq: Status: Active Protocol: Document 06/21/18 09:45 DCW (Rec: 06/21/18 10:32 DCW [id number]) OP-PT Subjective Patient Comments Patient Comments Pt voices mild concern that he has been tiring out more quickly when walking during his therapy sessions. PT-OP-D Balance Start: 10/12/17 18:11 Freq: Status: Active Protocol: Document 03/28/18 09:45 DCW (Rec: 03/28/18 10:29 DCW [id number]) OP-PT Balance Assessment Standing Balance Standing Balance Comments Double leg, Eyes open: Donis Balance Assessment Evaluation Sitting to Standing Ability Independent w/Hands Unsupported Stance 30 seconds Sitting Unsupported, Feet on Floor Safely- 2 minutes Standing to Sitting Ability Assist, Control w/Hands Transfer Ability Safely, Hand Use Unsupported Stance- Eyes Closed Supervision, 10 seconds Unsupported Stance- Eyes Open Independent, <30 seconds Reaching Forward Standing Safely, 5 inches Pick- Up Object From Floor Supervision Look Behind Shoulder - Standing Supervision w/Turning Turning 360 Degrees Requires Assistance Unsupported Stance, Alternating Feet on Assist to Prevent Fall Stair Unsupported Tandem Stance Assist to Step-15 seconds Unilateral Leg Stance Unable,assist to not fall Total Score Donis Total Score (out of 56 points) 28 Donis Impairment Rating 40 to 59% Impaired (Score 23- 33) Roberto Fall Scale Copyright Permission Roberto JM, Roberto RM, Mark SJ. Development of a scale to identify the fall- prone patient. Can J Aging 1989;8;366-7. Catrachita Mejia (2009). Preventing patient falls. (2nd ed). Andrew: Marquis. PT-OP-E Functional Tests Start: 10/12/17 18:11 Freq: Status: Active Protocol: Document 03/28/18 09:45 DCW (Rec: 03/28/18 10:29 DCW [id number]) Functional Tests 6 Minute Walk Test Distance 870' Device Used 4WW PT-OP-M Strength Start: 10/12/17 18:11 Freq: Status: Active Protocol: Document 03/28/18 09:45 DCW (Rec: 03/28/18 10:29 DCW [id number]) Hip Strength Hip Manual Muscle Testing Right Flexion (L2) 5 Normal Abduction 5 Normal Adduction 5 Normal Left Flexion (L2) 4+ Good+ Abduction 5 Normal Adduction 5 Normal Knee Strength Knee Manual Muscle Testing Right Flexion (S2) 5 Normal Extension (L3) 5 Normal Left Flexion (S2) 4+ Good+ Extension (L3) 5 Normal Ankle/Foot Strength Ankle and Foot Manual Muscle Testing Right Dorsiflexion (L4) 2- Poor- Plantarflexion (S1) 3+ Fair+ Left Dorsiflexion (L4) 4+ Good+ Plantarflexion (S1) 5 Normal PT-OP-Q Treatments Start: 09/28/17 15:21 Freq: Status: Active Protocol: Document 06/21/18 09:45 DCW (Rec: 06/21/18 10:32 DCW [id number]) Gym Equipment Shuttle Recovery Bilateral Heel Raises Resistance 150# Shuttle Recovery Platform Stable Reps/Time x60 Unilateral Squats Resistance 100# Shuttle Recovery Platform Stable Reps/Time x20 Bilateral Squats Resistance 187# Shuttle Recovery Platform Stable Reps/Time x30 Therapeutic Exercises Supine Exercises Piriformis Stretch Supine Exercise Name Figure-4 Side left Gait Training Gait Activity 3 Device Used 4WW Level of Assistance SBA Distance/Duration 570' x2 Treatment Focus Increased gait distance/ tolerance Manual Therapy Treatment Soft Tissue Mobilization Piriformis Body Location L piriformis Mobilization Type Strumming Sustained Pressure Intensity/Depth Deep Body Position Sidelying PT-OP-T Assessment and Plan Start: 09/28/17 15:21 Freq: Status: Active Protocol: Document 06/21/18 09:45 DCW (Rec: 06/21/18 10:32 DCW [id number]) Physical Therapy Assessment Impairments Impairments Activity Tolerance Balance Functional Activities Functional Mobility Gait ROM Strength Goals Seven Impairment Donis Short Term Goal (STG) Pt to score 22/56 on Donis Balance scale STG Duration Met Refinery Operator Vapor Recovery Unit Goal (LTG) Pt to score 35/56 on Donis Balance scale LTG Duration 07/22/18 Six Impairment Static Standing Balance Refinery Operator Vapor Recovery Unit Goal (LTG) Pt to stand independently for 2 minutes LTG Duration 08/19/18 Five Impairment 6 MWT Refinery Operator Vapor Recovery Unit Goal (LTG) Pt to ambulate 1000' without rest using 4WW during 6 MWT LTG Duration 09/19/18 - Improving Four Impairment Foot slap Short Term Goal (STG) Pt to regularly wear R AFO to limit foot drop and help normalize gait pattern STG Duration Met Three Impairment Transfers Short Term Goal (STG) Pt to transfer independently from mat<->w/c with no assistive devices STG Duration Met Two Impairment Ankle weakness Half-Way Goal (LTG) Pt to display 2/5 MMT in R DF, 4/5 MMT in R PF, and 4+/5 MMT in all other bilateral ankle movements LTG Duration 09/19/18 - Improving One Impairment Activity tolerance Half-Way Goal (LTG) Pt to tolerate activity up to 15 minutes without a break LTG Duration 09/19/18 - Improving Assessment Summary Assessment Pt recent hip pain still limiting progress, however with addition of therapeutic intervention, pain and functional mobility are improving. Continued therapy indicated to improve activity tolerance, increase strength and balance, and decrease burden of care. Physical Therapy Plan Frequency and Duration Frequency of Treatment 2x/Week Duration of Treatment 3 months Plan of Care Start Date 06/21/18 Plan of Care End Date 09/19/18 Therapeutic Interventions Therapeutic Interventions Aquatic Therapy Balance Training Gait Training Home Exercise Program Manual Therapy Neuromuscular Re-education Soft Tissue Mobilization Therapeutic Activities Therapeutic Exercises Next Visit Focus/Plan Next Note Type Treatment Note Next Visit Plan Continue current POC
--- NOTE | 2018-06-21 10:33 | PT.OPPOC ---
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 with return to pre-existing conscious level, subsequent encounter (06/21/18) History of falling (06/21/18) Provider Visit Care Team Role Provider Type Elver Eubanks MD Attending Provider Physician Family Provider Primary Care Provider Specialty: Internal Medicine Address: [address] [place] [address], [facility] Email: Plan Of Care PT-OP-T Assessment and Plan Start: 09/28/17 15:21 Freq: Status: Active Protocol: Document 06/21/18 09:45 DCW (Rec: 06/21/18 10:32 DCW [id number]) Physical Therapy Assessment Impairments Impairments Activity Tolerance Balance Functional Activities Functional Mobility Gait ROM Strength Goals Seven Impairment Donis Short Term Goal (STG) Pt to score 22/56 on Donis Balance scale STG Duration Met Halfway Goal (LTG) Pt to score 35/56 on Donis Balance scale LTG Duration 07/22/18 Six Impairment Static Standing Balance Bilingual Operator Goal (LTG) Pt to stand independently for 2 minutes LTG Duration 08/19/18 Five Impairment 6 MWT Bilingual Operator Goal (LTG) Pt to ambulate 1000' without rest using 4WW during 6 MWT LTG Duration 09/19/18 - Improving Four Impairment Foot slap Short Term Goal (STG) Pt to regularly wear R AFO to limit foot drop and help normalize gait pattern STG Duration Met Three Impairment Transfers Short Term Goal (STG) Pt to transfer independently from mat<->w/c with no assistive devices STG Duration Met Two Impairment Ankle weakness Bilingual Operator Goal (LTG) Pt to display 2/5 MMT in R DF, 4/5 MMT in R PF, and 4+/5 MMT in all other bilateral ankle movements LTG Duration 09/19/18 - Improving One Impairment Activity tolerance Halfway Goal (LTG) Pt to tolerate activity up to 15 minutes without a break LTG Duration 09/19/18 - Improving Assessment Summary Assessment Pt recent hip pain still limiting progress, however with addition of therapeutic intervention, pain and functional mobility are improving. Continued therapy indicated to improve activity tolerance, increase strength and balance, and decrease burden of care. Physical Therapy Plan Frequency and Duration Frequency of Treatment 2x/Week Duration of Treatment 3 months Plan of Care Start Date 06/21/18 Plan of Care End Date 09/19/18 Therapeutic Interventions Therapeutic Interventions Aquatic Therapy Balance Training Gait Training Home Exercise Program Manual Therapy Neuromuscular Re-education Soft Tissue Mobilization Therapeutic Activities Therapeutic Exercises Next Visit Focus/Plan Next Note Type Treatment Note Next Visit Plan Continue current POC Plan of Care Dates Plan of Care Start Date 06/21/18 Plan of Care End Date 09/19/18 Please Sign and Return: I have reviewed this Plan of Care and certify that the skilled therapy services above are required to meet the patient?s needs. Physician Signature Date Printed Name and Credentials Clinical Instructor Signature Printed Name and Credentials
--- NOTE | 2018-06-24 10:30 | PT.OTN ---
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 with return to pre-existing conscious level, subsequent encounter (06/24/18) History of falling (06/24/18) Physical Therapy Treatment Note PT-OP-A Visit Information Start: 09/28/17 15:21 Freq: Status: Active Protocol: Document 06/24/18 09:45 DCW (Rec: 06/24/18 10:29 DCW [id number]) Out-Patient Physical Therapy Visit Information Visit Information Visit Type Treatment Note Visit Start Time 09:45 Visit Stop Time 10:30 Total Visit Minutes 45 Visit Number 74 Number of MINE GEOLOGIST Visits 0 Evaluation Information Evaluation Date 07/27/17 PT-OP-B Current Condition Start: 09/28/17 15:21 Freq: Status: Active Protocol: Document 10/12/17 13:45 DCW (Rec: 10/12/17 18:33 DCW [id number]) Current Condition History of Current Condition Onset Date 02/05/17 History of Current Condition See Pt's initial evaluation in Therapy Source Current Functional Impairments (Reported) Functional Limitations- Mobility/Gait Transfers:W/C<->Mat Stand- pivot: Independent PT-OP-C Subjective Start: 09/28/17 15:21 Freq: Status: Active Protocol: Document 06/24/18 09:45 DCW (Rec: 06/24/18 10:29 DCW [id number]) OP-PT Subjective Patient Comments Patient Comments Pt reports he is feeling good today and ready to walk farther than he has been the past week. PT-OP-D Balance Start: 10/12/17 18:11 Freq: Status: Active Protocol: Document 03/28/18 09:45 DCW (Rec: 03/28/18 10:29 DCW [id number]) OP-PT Balance Assessment Standing Balance Standing Balance Comments Double leg, Eyes open: Donis Balance Assessment Evaluation Sitting to Standing Ability Independent w/Hands Unsupported Stance 30 seconds Sitting Unsupported, Feet on Floor Safely- 2 minutes Standing to Sitting Ability Assist, Control w/Hands Transfer Ability Safely, Hand Use Unsupported Stance- Eyes Closed Supervision, 10 seconds Unsupported Stance- Eyes Open Independent, <30 seconds Reaching Forward Standing Safely, 5 inches Pick- Up Object From Floor Supervision Look Behind Shoulder - Standing Supervision w/Turning Turning 360 Degrees Requires Assistance Unsupported Stance, Alternating Feet on Assist to Prevent Fall Stair Unsupported Tandem Stance Assist to Step-15 seconds Unilateral Leg Stance Unable,assist to not fall Total Score Donis Total Score (out of 56 points) 28 Donis Impairment Rating 40 to 59% Impaired (Score 23- 33) Roberto Fall Scale Copyright Permission Roberto JM, Roberto RM, Mark SJ. Development of a scale to identify the fall- prone patient. Can J Aging 1989;8;366-7. Catrachita Mejia (2009). Preventing patient falls. (2nd ed). [place]: Marquis. PT-OP-E Functional Tests Start: 10/12/17 18:11 Freq: Status: Active Protocol: Document 03/28/18 09:45 DCW (Rec: 03/28/18 10:29 DCW [id number]) Functional Tests 6 Minute Walk Test Distance 870' Device Used 4WW PT-OP-M Strength Start: 10/12/17 18:11 Freq: Status: Active Protocol: Document 03/28/18 09:45 DCW (Rec: 03/28/18 10:29 DCW [id number]) Hip Strength Hip Manual Muscle Testing Right Flexion (L2) 5 Normal Abduction 5 Normal Adduction 5 Normal Left Flexion (L2) 4+ Good+ Abduction 5 Normal Adduction 5 Normal Knee Strength Knee Manual Muscle Testing Right Flexion (S2) 5 Normal Extension (L3) 5 Normal Left Flexion (S2) 4+ Good+ Extension (L3) 5 Normal Ankle/Foot Strength Ankle and Foot Manual Muscle Testing Right Dorsiflexion (L4) 2- Poor- Plantarflexion (S1) 3+ Fair+ Left Dorsiflexion (L4) 4+ Good+ Plantarflexion (S1) 5 Normal PT-OP-Q Treatments Start: 09/28/17 15:21 Freq: Status: Active Protocol: Document 06/24/18 09:45 DCW (Rec: 06/24/18 10:29 DCW [id number]) Gym Equipment Shuttle Recovery Bilateral Heel Raises Resistance 150# Shuttle Recovery Platform Stable Reps/Time x60 Unilateral Squats Resistance 100# Shuttle Recovery Platform Stable Reps/Time x20 Bilateral Squats Resistance 187# Shuttle Recovery Platform Stable Reps/Time x30 Therapeutic Exercises Supine Exercises Piriformis Stretch Supine Exercise Name Figure-4 Side left Other Exercises 1 Other Exercise Name Resisted Side-stepping Side bilateral Resistance Green Equipment Used T-band Gait Training Gait Activity 3 Device Used 4WW Level of Assistance SBA Distance/Duration 1270' Treatment Focus Increased gait distance/ tolerance Manual Therapy Treatment Soft Tissue Mobilization Piriformis Body Location L piriformis Mobilization Type Strumming Sustained Pressure Intensity/Depth Deep Body Position Sidelying PT-OP-T Assessment and Plan Start: 09/28/17 15:21 Freq: Status: Active Protocol: Document 06/24/18 09:45 DCW (Rec: 06/24/18 10:29 DCW [id number]) Physical Therapy Assessment Impairments Impairments Activity Tolerance Balance Functional Activities Functional Mobility Gait ROM Strength Goals Seven Impairment Donis Short Term Goal (STG) Pt to score 22/56 on Donis Balance scale STG Duration Met Quality Assurance Coach Goal (LTG) Pt to score 35/56 on Donis Balance scale LTG Duration 07/22/18 Six Impairment Static Standing Balance Quality Assurance Coach Goal (LTG) Pt to stand independently for 2 minutes LTG Duration 08/19/18 Five Impairment 6 MWT Usp Goal (LTG) Pt to ambulate 1000' without rest using 4WW during 6 MWT LTG Duration 09/19/18 - Improving Four Impairment Foot slap Short Term Goal (STG) Pt to regularly wear R AFO to limit foot drop and help normalize gait pattern STG Duration Met Three Impairment Transfers Short Term Goal (STG) Pt to transfer independently from mat<->w/c with no assistive devices STG Duration Met Two Impairment Ankle weakness Quality Assurance Coach Goal (LTG) Pt to display 2/5 MMT in R DF, 4/5 MMT in R PF, and 4+/5 MMT in all other bilateral ankle movements LTG Duration 09/19/18 - Improving One Impairment Activity tolerance Quality Assurance Coach Goal (LTG) Pt to tolerate activity up to 15 minutes without a break LTG Duration 09/19/18 - Improving Assessment Summary Assessment Although pt has previously ambulated 1270' during therapy before, today he was able to walk with much fewer deficits, and had no foot dragging or path deviations, and lasted until the last lap to begin to tire and slow down. Physical Therapy Plan Frequency and Duration Frequency of Treatment 2x/Week Duration of Treatment 3 months Plan of Care Start Date 06/21/18 Plan of Care End Date 09/19/18 Therapeutic Interventions Therapeutic Interventions Aquatic Therapy Balance Training Gait Training Home Exercise Program Manual Therapy Neuromuscular Re-education Soft Tissue Mobilization Therapeutic Activities Therapeutic Exercises Next Visit Focus/Plan Next Note Type Treatment Note Next Visit Plan Continue current POC
--- NOTE | 2018-06-28 10:31 | PT.OTN ---
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 hours with return to pre-existing conscious level, subsequent encounter (06/28/18) History of falling (06/28/18) Physical Therapy Treatment Note PT-OP-A Visit Information Start: 09/28/17 15:21 Freq: Status: Active Protocol: Document 06/28/18 09:45 DCW (Rec: 06/28/18 10:30 DCW [id number]) Out-Patient Physical Therapy Visit Information Visit Information Visit Type Treatment Note Visit Start Time 09:45 Visit Stop Time 10:30 Total Visit Minutes 45 Visit Number 75 Number of CUSTOMS CONSULTANT Visits 0 Evaluation Information Evaluation Date 07/27/17 PT-OP-B Current Condition Start: 09/28/17 15:21 Freq: Status: Active Protocol: Document 10/12/17 13:45 DCW (Rec: 10/12/17 18:33 DCW [id number]) Current Condition History of Current Condition Onset Date 02/05/17 History of Current Condition See Pt's initial evaluation in Therapy Source Current Functional Impairments (Reported) Functional Limitations- Mobility/Gait Transfers:W/C<->Mat Stand- pivot: Independent PT-OP-C Subjective Start: 09/28/17 15:21 Freq: Status: Active Protocol: Document 06/28/18 09:45 DCW (Rec: 06/28/18 10:30 DCW [id number]) OP-PT Subjective Patient Comments Patient Comments Pt walked in to the clinic today using his own 4WW, which is the first time he came in without using his w/c. PT-OP-D Balance Start: 10/12/17 18:11 Freq: Status: Active Protocol: Document 03/28/18 09:45 DCW (Rec: 03/28/18 10:29 DCW [id number]) OP-PT Balance Assessment Standing Balance Standing Balance Comments Double leg, Eyes open: Donis Balance Assessment Evaluation Sitting to Standing Ability Independent w/Hands Unsupported Stance 30 seconds Sitting Unsupported, Feet on Floor Safely- 2 minutes Standing to Sitting Ability Assist, Control w/Hands Transfer Ability Safely, Hand Use Unsupported Stance- Eyes Closed Supervision, 10 seconds Unsupported Stance- Eyes Open Independent, <30 seconds Reaching Forward Standing Safely, 5 inches Pick- Up Object From Floor Supervision Look Behind Shoulder - Standing Supervision w/Turning Turning 360 Degrees Requires Assistance Unsupported Stance, Alternating Feet on Assist to Prevent Fall Stair Unsupported Tandem Stance Assist to Step-15 seconds Unilateral Leg Stance Unable,assist to not fall Total Score Donis Total Score (out of 56 points) 28 Donis Impairment Rating 40 to 59% Impaired (Score 23- 33) Mejia Fall Scale Copyright Permission Roberto KELLY, Roberto RM, Mark SJ. Development of a scale to identify the fall- prone patient. Can J Aging 1989;8;366-7. Catrachita Mejia (2009). Preventing patient falls. (2nd ed). [place]: Marquis. PT-OP-E Functional Tests Start: 10/12/17 18:11 Freq: Status: Active Protocol: Document 03/28/18 09:45 DCW (Rec: 03/28/18 10:29 DCW [id number]) Functional Tests 6 Minute Walk Test Distance 870' Device Used 4WW PT-OP-M Strength Start: 10/12/17 18:11 Freq: Status: Active Protocol: Document 03/28/18 09:45 DCW (Rec: 03/28/18 10:29 DCW [id number]) Hip Strength Hip Manual Muscle Testing Right Flexion (L2) 5 Normal Abduction 5 Normal Adduction 5 Normal Left Flexion (L2) 4+ Good+ Abduction 5 Normal Adduction 5 Normal Knee Strength Knee Manual Muscle Testing Right Flexion (S2) 5 Normal Extension (L3) 5 Normal Left Flexion (S2) 4+ Good+ Extension (L3) 5 Normal Ankle/Foot Strength Ankle and Foot Manual Muscle Testing Right Dorsiflexion (L4) 2- Poor- Plantarflexion (S1) 3+ Fair+ Left Dorsiflexion (L4) 4+ Good+ Plantarflexion (S1) 5 Normal PT-OP-Q Treatments Start: 09/28/17 15:21 Freq: Status: Active Protocol: Document 06/28/18 09:45 DCW (Rec: 06/28/18 10:30 DCW [id number]) Gym Equipment Shuttle Recovery Bilateral Heel Raises Resistance 150# Shuttle Recovery Platform Stable Reps/Time x60 Unilateral Squats Resistance 100# Shuttle Recovery Platform Stable Reps/Time x20 Bilateral Squats Resistance 187# Shuttle Recovery Platform Stable Reps/Time x30 Therapeutic Exercises Supine Exercises Piriformis Stretch Supine Exercise Name Figure-4 Side left Gait Training Gait Activity 3 Device Used 4WW Level of Assistance SBA Distance/Duration 570' x1, 340' x2 Treatment Focus Increased gait distance/ tolerance Manual Therapy Treatment Soft Tissue Mobilization Piriformis Body Location L piriformis Mobilization Type Strumming Sustained Pressure Intensity/Depth Deep Body Position Sidelying PT-OP-T Assessment and Plan Start: 09/28/17 15:21 Freq: Status: Active Protocol: Document 06/28/18 09:45 DCW (Rec: 06/28/18 10:30 DCW [id number]) Physical Therapy Assessment Impairments Impairments Activity Tolerance Balance Functional Activities Functional Mobility Gait ROM Strength Goals Seven Impairment Donis Short Term Goal (STG) Pt to score 22/56 on Donis Balance scale STG Duration Met Residential Goal (LTG) Pt to score 35/56 on Donis Balance scale LTG Duration 07/22/18 Six Impairment Static Standing Balance Residential Goal (LTG) Pt to stand independently for 2 minutes LTG Duration 08/19/18 Five Impairment 6 MWT Residential Goal (LTG) Pt to ambulate 1000' without rest using 4WW during 6 MWT LTG Duration 09/19/18 - Improving Four Impairment Foot slap Short Term Goal (STG) Pt to regularly wear R AFO to limit foot drop and help normalize gait pattern STG Duration Met Three Impairment Transfers Short Term Goal (STG) Pt to transfer independently from mat<->w/c with no assistive devices STG Duration Met Two Impairment Ankle weakness Rickshaw Driver Goal (LTG) Pt to display 2/5 MMT in R DF, 4/5 MMT in R PF, and 4+/5 MMT in all other bilateral ankle movements LTG Duration 09/19/18 - Improving One Impairment Activity tolerance Residential Goal (LTG) Pt to tolerate activity up to 15 minutes without a break LTG Duration 09/19/18 - Improving Assessment Summary Assessment Pt initially complained about his home 4WW feeling uncomfortable, and he was unable to walk his normal distance. After height adjustment, however, pt felt much more comfortable. Physical Therapy Plan Frequency and Duration Frequency of Treatment 2x/Week Duration of Treatment 3 months Plan of Care Start Date 06/21/18 Plan of Care End Date 09/19/18 Therapeutic Interventions Therapeutic Interventions Aquatic Therapy Balance Training Gait Training Home Exercise Program Manual Therapy Neuromuscular Re-education Soft Tissue Mobilization Therapeutic Activities Therapeutic Exercises Next Visit Focus/Plan Next Note Type Treatment Note Next Visit Plan Continue current POC
--- NOTE | 2018-07-06 12:05 | PT.OTN ---
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 with return to pre-existing conscious level, subsequent encounter (07/06/18) History of falling (07/06/18) Physical Therapy Treatment Note PT-OP-A Visit Information Start: 09/28/17 15:21 Freq: Status: Active Protocol: Document 07/06/18 11:15 DCW (Rec: 07/06/18 12:04 DCW [id number]) Out-Patient Physical Therapy Visit Information Visit Information Visit Type Treatment Note Visit Start Time 11:15 Visit Stop Time 12:00 Total Visit Minutes 45 Visit Number 76 Number of STEAM FITTER HELPER Visits 0 Evaluation Information Evaluation Date 07/27/17 PT-OP-B Current Condition Start: 09/28/17 15:21 Freq: Status: Active Protocol: Document 10/12/17 13:45 DCW (Rec: 10/12/17 18:33 DCW [id number]) Current Condition History of Current Condition Onset Date 02/05/17 History of Current Condition See Pt's initial evaluation in Therapy Source Current Functional Impairments (Reported) Functional Limitations- Mobility/Gait Transfers:W/C<->Mat Stand- pivot: Independent PT-OP-C Subjective Start: 09/28/17 15:21 Freq: Status: Active Protocol: Document 07/06/18 11:15 DCW (Rec: 07/06/18 12:04 DCW [id number]) OP-PT Subjective Patient Comments Patient Comments Pt reports he is doing very well today, but notes his hip pain has been a little worse the past 2-3 days. PT-OP-D Balance Start: 10/12/17 18:11 Freq: Status: Active Protocol: Document 03/28/18 09:45 DCW (Rec: 03/28/18 10:29 DCW [id number]) OP-PT Balance Assessment Standing Balance Standing Balance Comments Double leg, Eyes open: Donis Balance Assessment Evaluation Sitting to Standing Ability Independent w/Hands Unsupported Stance 30 seconds Sitting Unsupported, Feet on Floor Safely- 2 minutes Standing to Sitting Ability Assist, Control w/Hands Transfer Ability Safely, Hand Use Unsupported Stance- Eyes Closed Supervision, 10 seconds Unsupported Stance- Eyes Open Independent, <30 seconds Reaching Forward Standing Safely, 5 inches Pick- Up Object From Floor Supervision Look Behind Shoulder - Standing Supervision w/Turning Turning 360 Degrees Requires Assistance Unsupported Stance, Alternating Feet on Assist to Prevent Fall Stair Unsupported Tandem Stance Assist to Step-15 seconds Unilateral Leg Stance Unable,assist to not fall Total Score Donis Total Score (out of 56 points) 28 Donis Impairment Rating 40 to 59% Impaired (Score 23- 33) Mejia Fall Scale Copyright Permission Roberto KELLY, Roberto RM, Mark SJ. Development of a scale to identify the fall- prone patient. Can J Aging 1989;8;366-7. Catrachita Mejia (2009). Preventing patient falls. (2nd ed). [place]: Marquis. PT-OP-E Functional Tests Start: 10/12/17 18:11 Freq: Status: Active Protocol: Document 03/28/18 09:45 DCW (Rec: 03/28/18 10:29 DCW [id number]) Functional Tests 6 Minute Walk Test Distance 870' Device Used 4WW PT-OP-M Strength Start: 10/12/17 18:11 Freq: Status: Active Protocol: Document 03/28/18 09:45 DCW (Rec: 03/28/18 10:29 DCW [id number]) Hip Strength Hip Manual Muscle Testing Right Flexion (L2) 5 Normal Abduction 5 Normal Adduction 5 Normal Left Flexion (L2) 4+ Good+ Abduction 5 Normal Adduction 5 Normal Knee Strength Knee Manual Muscle Testing Right Flexion (S2) 5 Normal Extension (L3) 5 Normal Left Flexion (S2) 4+ Good+ Extension (L3) 5 Normal Ankle/Foot Strength Ankle and Foot Manual Muscle Testing Right Dorsiflexion (L4) 2- Poor- Plantarflexion (S1) 3+ Fair+ Left Dorsiflexion (L4) 4+ Good+ Plantarflexion (S1) 5 Normal PT-OP-Q Treatments Start: 09/28/17 15:21 Freq: Status: Active Protocol: Document 07/06/18 11:15 DCW (Rec: 07/06/18 12:04 DCW [id number]) Gym Equipment Shuttle Recovery Bilateral Heel Raises Resistance 150# Shuttle Recovery Platform Stable Reps/Time x60 Unilateral Squats Resistance 100# Shuttle Recovery Platform Stable Reps/Time x20 Bilateral Squats Resistance 187# Shuttle Recovery Platform Stable Reps/Time x30 Therapeutic Exercises Supine Exercises Piriformis Stretch Supine Exercise Name Figure-4 Side left Gait Training Gait Activity 3 Device Used 4WW Level of Assistance SBA Distance/Duration 1270' Treatment Focus Increased gait distance/ tolerance Manual Therapy Treatment Soft Tissue Mobilization Piriformis Body Location L piriformis Mobilization Type Strumming Sustained Pressure Intensity/Depth Deep Body Position Sidelying PT-OP-T Assessment and Plan Start: 09/28/17 15:21 Freq: Status: Active Protocol: Document 07/06/18 11:15 DCW (Rec: 07/06/18 12:04 DCW [id number]) Physical Therapy Assessment Impairments Impairments Activity Tolerance Balance Functional Activities Functional Mobility Gait ROM Strength Goals Seven Impairment Donis Short Term Goal (STG) Pt to score 22/56 on Donis Balance scale STG Duration Met Assisted Goal (LTG) Pt to score 35/56 on Donis Balance scale LTG Duration 07/22/18 Six Impairment Static Standing Balance Endoscopy Tech Goal (LTG) Pt to stand independently for 2 minutes LTG Duration 08/19/18 Five Impairment 6 MWT Assisted Goal (LTG) Pt to ambulate 1000' without rest using 4WW during 6 MWT LTG Duration 09/19/18 - Improving Four Impairment Foot slap Short Term Goal (STG) Pt to regularly wear R AFO to limit foot drop and help normalize gait pattern STG Duration Met Three Impairment Transfers Short Term Goal (STG) Pt to transfer independently from mat<->w/c with no assistive devices STG Duration Met Two Impairment Ankle weakness Endoscopy Tech Goal (LTG) Pt to display 2/5 MMT in R DF, 4/5 MMT in R PF, and 4+/5 MMT in all other bilateral ankle movements LTG Duration 09/19/18 - Improving One Impairment Activity tolerance Endoscopy Tech Goal (LTG) Pt to tolerate activity up to 15 minutes without a break LTG Duration 09/19/18 - Improving Assessment Summary Assessment Pt did very well today, his hip is rapidly improving and he presents with less tone and tenderness along his piriformis. Physical Therapy Plan Frequency and Duration Frequency of Treatment 2x/Week Duration of Treatment 3 months Plan of Care Start Date 06/21/18 Plan of Care End Date 09/19/18 Therapeutic Interventions Therapeutic Interventions Aquatic Therapy Balance Training Gait Training Home Exercise Program Manual Therapy Neuromuscular Re-education Soft Tissue Mobilization Therapeutic Activities Therapeutic Exercises Next Visit Focus/Plan Next Note Type Treatment Note Next Visit Plan Continue current POC
--- NOTE | 2018-07-19 10:42 | PT.OTN ---
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 greater than 24 hours with return to pre-existing conscious level, subsequent encounter (07/19/18) History of falling (07/19/18) Physical Therapy Treatment Note PT-OP-A Visit Information Start: 09/28/17 15:21 Freq: Status: Active Protocol: Document 07/19/18 09:45 DCW (Rec: 07/19/18 10:42 DCW [id number]) Out-Patient Physical Therapy Visit Information Visit Information Visit Type Treatment Note Visit Start Time 09:45 Visit Stop Time 10:30 Total Visit Minutes 45 Visit Number 77 Number of CASING FINISHER AND STUFFER Visits 0 Evaluation Information Evaluation Date 07/27/17 PT-OP-B Current Condition Start: 09/28/17 15:21 Freq: Status: Active Protocol: Document 10/12/17 13:45 DCW (Rec: 10/12/17 18:33 DCW [id number]) Current Condition History of Current Condition Onset Date 02/05/17 History of Current Condition See Pt's initial evaluation in Therapy Source Current Functional Impairments (Reported) Functional Limitations- Mobility/Gait Transfers:W/C<->Mat Stand- pivot: Independent PT-OP-C Subjective Start: 09/28/17 15:21 Freq: Status: Active Protocol: Document 07/19/18 09:45 DCW (Rec: 07/19/18 10:42 DCW [id number]) OP-PT Subjective Patient Comments Patient Comments Pt reports that he had a bad night last night in regard to his hip, and it is a little more sore today. However, after not being in to therapy due to weather for ~2 weeks, he is ready to get to work. PT-OP-D Balance Start: 10/12/17 18:11 Freq: Status: Active Protocol: Document 03/28/18 09:45 DCW (Rec: 03/28/18 10:29 DCW [id number]) OP-PT Balance Assessment Standing Balance Standing Balance Comments Double leg, Eyes open: Donis Balance Assessment Evaluation Sitting to Standing Ability Independent w/Hands Unsupported Stance 30 seconds Sitting Unsupported, Feet on Floor Safely- 2 minutes Standing to Sitting Ability Assist, Control w/Hands Transfer Ability Safely, Hand Use Unsupported Stance- Eyes Closed Supervision, 10 seconds Unsupported Stance- Eyes Open Independent, <30 seconds Reaching Forward Standing Safely, 5 inches Pick- Up Object From Floor Supervision Look Behind Shoulder - Standing Supervision w/Turning Turning 360 Degrees Requires Assistance Unsupported Stance, Alternating Feet on Assist to Prevent Fall Stair Unsupported Tandem Stance Assist to Step-15 seconds Unilateral Leg Stance Unable,assist to not fall Total Score Donis Total Score (out of 56 points) 28 Donis Impairment Rating 40 to 59% Impaired (Score 23- 33) Mejia Fall Scale Copyright Permission Roberto KELLY, Roberto RM, Mark SJ. Development of a scale to identify the fall- prone patient. Can J Aging 1989;8;366-7. Catrachita Mejia (2009). Preventing patient falls. (2nd ed). [place]: Marquis. PT-OP-E Functional Tests Start: 10/12/17 18:11 Freq: Status: Active Protocol: Document 03/28/18 09:45 DCW (Rec: 03/28/18 10:29 DCW [id number]) Functional Tests 6 Minute Walk Test Distance 870' Device Used 4WW PT-OP-M Strength Start: 10/12/17 18:11 Freq: Status: Active Protocol: Document 03/28/18 09:45 DCW (Rec: 03/28/18 10:29 DCW [id number]) Hip Strength Hip Manual Muscle Testing Right Flexion (L2) 5 Normal Abduction 5 Normal Adduction 5 Normal Left Flexion (L2) 4+ Good+ Abduction 5 Normal Adduction 5 Normal Knee Strength Knee Manual Muscle Testing Right Flexion (S2) 5 Normal Extension (L3) 5 Normal Left Flexion (S2) 4+ Good+ Extension (L3) 5 Normal Ankle/Foot Strength Ankle and Foot Manual Muscle Testing Right Dorsiflexion (L4) 2- Poor- Plantarflexion (S1) 3+ Fair+ Left Dorsiflexion (L4) 4+ Good+ Plantarflexion (S1) 5 Normal PT-OP-Q Treatments Start: 09/28/17 15:21 Freq: Status: Active Protocol: Document 07/19/18 09:45 DCW (Rec: 07/19/18 10:42 DCW [id number]) Gym Equipment Shuttle Recovery Bilateral Heel Raises Resistance 150# Shuttle Recovery Platform Stable Reps/Time x60 Unilateral Squats Resistance 100# Shuttle Recovery Platform Stable Reps/Time x20 Bilateral Squats Resistance 187# Shuttle Recovery Platform Stable Reps/Time x30 Therapeutic Exercises Supine Exercises Piriformis Stretch Supine Exercise Name Figure-4 Side left Gait Training Gait Activity 3 Device Used 4WW Level of Assistance SBA Distance/Duration 1100' Treatment Focus Increased gait distance/ tolerance Manual Therapy Treatment Soft Tissue Mobilization Piriformis Body Location L piriformis Mobilization Type Strumming Sustained Pressure Intensity/Depth Deep Body Position Sidelying PT-OP-T Assessment and Plan Start: 09/28/17 15:21 Freq: Status: Active Protocol: Document 07/19/18 09:45 DCW (Rec: 07/19/18 10:42 DCW [id number]) Physical Therapy Assessment Impairments Impairments Activity Tolerance Balance Functional Activities Functional Mobility Gait ROM Strength Goals Seven Impairment Donis Short Term Goal (STG) Pt to score 22/56 on Donis Balance scale STG Duration Met Usp Goal (LTG) Pt to score 35/56 on Donis Balance scale LTG Duration 07/22/18 Six Impairment Static Standing Balance Usp Goal (LTG) Pt to stand independently for 2 minutes LTG Duration 08/19/18 Five Impairment 6 MWT Speech Professor Goal (LTG) Pt to ambulate 1000' without rest using 4WW during 6 MWT LTG Duration 09/19/18 - Improving Four Impairment Foot slap Short Term Goal (STG) Pt to regularly wear R AFO to limit foot drop and help normalize gait pattern STG Duration Met Three Impairment Transfers Short Term Goal (STG) Pt to transfer independently from mat<->w/c with no assistive devices STG Duration Met Two Impairment Ankle weakness Usp Goal (LTG) Pt to display 2/5 MMT in R DF, 4/5 MMT in R PF, and 4+/5 MMT in all other bilateral ankle movements LTG Duration 09/19/18 - Improving One Impairment Activity tolerance Speech Professor Goal (LTG) Pt to tolerate activity up to 15 minutes without a break LTG Duration 09/19/18 - Improving Assessment Summary Assessment Pt fatigued during today's visit after not attending therapy for two weeks due to poor weather conditions. Pt was able to ambulate 1100', and his hip appears to be improving, with less tone annd less tenderness to palpation. Physical Therapy Plan Frequency and Duration Frequency of Treatment 2x/Week Duration of Treatment 3 months Plan of Care Start Date 06/21/18 Plan of Care End Date 09/19/18 Therapeutic Interventions Therapeutic Interventions Aquatic Therapy Balance Training Gait Training Home Exercise Program Manual Therapy Neuromuscular Re-education Soft Tissue Mobilization Therapeutic Activities Therapeutic Exercises Next Visit Focus/Plan Next Note Type Treatment Note Next Visit Plan Continue current POC
--- NOTE | 2018-07-22 10:33 | PT.OTN ---
Current Diagnoses Foot drop, right foot (07/22/18) Muscle weakness (generalized) (07/22/18) Unsteadiness on feet (07/22/18) Unspecified abnormalities of gait and mobility (07/22/18) Traumatic subdural hemorrhage with loss of consciousness greater than 24 hours with return to pre-existing conscious level, subsequent encounter (07/22/18) History of falling (07/22/18) Physical Therapy Treatment Note PT-OP-A Visit Information Start: 09/28/17 15:21 Freq: Status: Active Protocol: Document 07/22/18 09:45 DCW (Rec: 07/22/18 10:33 DCW [id number]) Out-Patient Physical Therapy Visit Information Visit Information Visit Type Treatment Note Visit Start Time 09:45 Visit Stop Time 10:30 Total Visit Minutes 45 Visit Number 78 Number of LEARNING AND DEVELOPMENT ADMINISTRATOR Visits 0 Evaluation Information Evaluation Date 07/27/17 PT-OP-B Current Condition Start: 09/28/17 15:21 Freq: Status: Active Protocol: Document 10/12/17 13:45 DCW (Rec: 10/12/17 18:33 DCW [id number]) Current Condition History of Current Condition Onset Date 02/05/17 History of Current Condition See Pt's initial evaluation in Therapy Source Current Functional Impairments (Reported) Functional Limitations- Mobility/Gait Transfers:W/C<->Mat Stand- pivot: Independent PT-OP-C Subjective Start: 09/28/17 15:21 Freq: Status: Active Protocol: Document 07/22/18 09:45 DCW (Rec: 07/22/18 10:33 DCW [id number]) OP-PT Subjective Patient Comments Patient Comments I think I'm feeling good, but I never really know until I start. PT-OP-D Balance Start: 10/12/17 18:11 Freq: Status: Active Protocol: Document 03/28/18 09:45 DCW (Rec: 03/28/18 10:29 DCW [id number]) OP-PT Balance Assessment Standing Balance Standing Balance Comments Double leg, Eyes open: Donis Balance Assessment Evaluation Sitting to Standing Ability Independent w/Hands Unsupported Stance 30 seconds Sitting Unsupported, Feet on Floor Safely- 2 minutes Standing to Sitting Ability Assist, Control w/Hands Transfer Ability Safely, Hand Use Unsupported Stance- Eyes Closed Supervision, 10 seconds Unsupported Stance- Eyes Open Independent, <30 seconds Reaching Forward Standing Safely, 5 inches Pick- Up Object From Floor Supervision Look Behind Shoulder - Standing Supervision w/Turning Turning 360 Degrees Requires Assistance Unsupported Stance, Alternating Feet on Assist to Prevent Fall Stair Unsupported Tandem Stance Assist to Step-15 seconds Unilateral Leg Stance Unable,assist to not fall Total Score Donis Total Score (out of 56 points) 28 Donis Impairment Rating 40 to 59% Impaired (Score 23- 33) Roberto Fall Scale Copyright Permission Roberto JM, Roberto RM, Mark SJ. Development of a scale to identify the fall- prone patient. Can J Aging 1989;8;366-7. Catrachita Mejia (2009). Preventing patient falls. (2nd ed). [place]: Marquis. PT-OP-E Functional Tests Start: 10/12/17 18:11 Freq: Status: Active Protocol: Document 03/28/18 09:45 DCW (Rec: 03/28/18 10:29 DCW [id number]) Functional Tests 6 Minute Walk Test Distance 870' Device Used 4WW PT-OP-M Strength Start: 10/12/17 18:11 Freq: Status: Active Protocol: Document 03/28/18 09:45 DCW (Rec: 03/28/18 10:29 DCW [id number]) Hip Strength Hip Manual Muscle Testing Right Flexion (L2) 5 Normal Abduction 5 Normal Adduction 5 Normal Left Flexion (L2) 4+ Good+ Abduction 5 Normal Adduction 5 Normal Knee Strength Knee Manual Muscle Testing Right Flexion (S2) 5 Normal Extension (L3) 5 Normal Left Flexion (S2) 4+ Good+ Extension (L3) 5 Normal Ankle/Foot Strength Ankle and Foot Manual Muscle Testing Right Dorsiflexion (L4) 2- Poor- Plantarflexion (S1) 3+ Fair+ Left Dorsiflexion (L4) 4+ Good+ Plantarflexion (S1) 5 Normal PT-OP-Q Treatments Start: 09/28/17 15:21 Freq: Status: Active Protocol: Document 07/22/18 09:45 DCW (Rec: 07/22/18 10:33 DCW [id number]) Gym Equipment Shuttle Recovery Bilateral Heel Raises Resistance 150# Shuttle Recovery Platform Stable Reps/Time x60 Unilateral Squats Resistance 100# Shuttle Recovery Platform Stable Reps/Time x20 Bilateral Squats Resistance 187# Shuttle Recovery Platform Stable Reps/Time x30 Therapeutic Exercises Supine Exercises Piriformis Stretch Supine Exercise Name Figure-4 Side left Gait Training Gait Activity 3 Device Used 4WW Level of Assistance SBA Distance/Duration 930' Treatment Focus Increased gait distance/ tolerance Manual Therapy Treatment Soft Tissue Mobilization Piriformis Body Location L piriformis Mobilization Type Strumming Sustained Pressure Intensity/Depth Deep Body Position Sidelying PT-OP-T Assessment and Plan Start: 09/28/17 15:21 Freq: Status: Active Protocol: Document 07/22/18 09:45 DCW (Rec: 07/22/18 10:33 DCW [id number]) Physical Therapy Assessment Impairments Impairments Activity Tolerance Balance Functional Activities Functional Mobility Gait ROM Strength Goals Seven Impairment Donis Short Term Goal (STG) Pt to score 22/56 on Donis Balance scale STG Duration Met Sign Board Erector Goal (LTG) Pt to score 35/56 on Donis Balance scale LTG Duration 07/22/18 Six Impairment Static Standing Balance Detention Goal (LTG) Pt to stand independently for 2 minutes LTG Duration 08/19/18 Five Impairment 6 MWT Detention Goal (LTG) Pt to ambulate 1000' without rest using 4WW during 6 MWT LTG Duration 09/19/18 - Improving Four Impairment Foot slap Short Term Goal (STG) Pt to regularly wear R AFO to limit foot drop and help normalize gait pattern STG Duration Met Three Impairment Transfers Short Term Goal (STG) Pt to transfer independently from mat<->w/c with no assistive devices STG Duration Met Two Impairment Ankle weakness Sign Board Erector Goal (LTG) Pt to display 2/5 MMT in R DF, 4/5 MMT in R PF, and 4+/5 MMT in all other bilateral ankle movements LTG Duration 09/19/18 - Improving One Impairment Activity tolerance Sign Board Erector Goal (LTG) Pt to tolerate activity up to 15 minutes without a break LTG Duration 09/19/18 - Improving Assessment Summary Assessment Pt doing well today, however complained of early fatigue dring ambulation. Physical Therapy Plan Frequency and Duration Frequency of Treatment 2x/Week Duration of Treatment 3 months Plan of Care Start Date 06/21/18 Plan of Care End Date 09/19/18 Therapeutic Interventions Therapeutic Interventions Aquatic Therapy Balance Training Gait Training Home Exercise Program Manual Therapy Neuromuscular Re-education Soft Tissue Mobilization Therapeutic Activities Therapeutic Exercises Next Visit Focus/Plan Next Note Type Treatment Note Next Visit Plan Continue current POC
--- NOTE | 2018-07-26 10:32 | PT.OTN ---
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 with return to pre-existing conscious level, subsequent encounter (07/26/18) History of falling (07/26/18) Physical Therapy Treatment Note PT-OP-A Visit Information Start: 09/28/17 15:21 Freq: Status: Active Protocol: Document 07/26/18 09:45 DCW (Rec: 07/26/18 10:32 DCW [id number]) Out-Patient Physical Therapy Visit Information Visit Information Visit Type Treatment Note Visit Start Time 09:45 Visit Stop Time 10:30 Total Visit Minutes 45 Visit Number 79 Number of OCEAN EXPORT AGENT Visits 0 Evaluation Information Evaluation Date 07/27/17 PT-OP-B Current Condition Start: 09/28/17 15:21 Freq: Status: Active Protocol: Document 10/12/17 13:45 DCW (Rec: 10/12/17 18:33 DCW [id number]) Current Condition History of Current Condition Onset Date 02/05/17 History of Current Condition See Pt's initial evaluation in Therapy Source Current Functional Impairments (Reported) Functional Limitations- Mobility/Gait Transfers:W/C<->Mat Stand- pivot: Independent PT-OP-C Subjective Start: 09/28/17 15:21 Freq: Status: Active Protocol: Document 07/26/18 09:45 DCW (Rec: 07/26/18 10:32 DCW [id number]) OP-PT Subjective Patient Comments Patient Comments I'm doing pretty well today. PT-OP-D Balance Start: 10/12/17 18:11 Freq: Status: Active Protocol: Document 03/28/18 09:45 DCW (Rec: 03/28/18 10:29 DCW [id number]) OP-PT Balance Assessment Standing Balance Standing Balance Comments Double leg, Eyes open: Donis Balance Assessment Evaluation Sitting to Standing Ability Independent w/Hands Unsupported Stance 30 seconds Sitting Unsupported, Feet on Floor Safely- 2 minutes Standing to Sitting Ability Assist, Control w/Hands Transfer Ability Safely, Hand Use Unsupported Stance- Eyes Closed Supervision, 10 seconds Unsupported Stance- Eyes Open Independent, <30 seconds Reaching Forward Standing Safely, 5 inches Pick- Up Object From Floor Supervision Look Behind Shoulder - Standing Supervision w/Turning Turning 360 Degrees Requires Assistance Unsupported Stance, Alternating Feet on Assist to Prevent Fall Stair Unsupported Tandem Stance Assist to Step-15 seconds Unilateral Leg Stance Unable,assist to not fall Total Score Donis Total Score (out of 56 points) 28 Donis Impairment Rating 40 to 59% Impaired (Score 23- 33) Roberto Fall Scale Copyright Permission Roberto JM, Roberto RM, Mark SJ. Development of a scale to identify the fall- prone patient. Can J Aging 1989;8;366-7. Catrachita Mejia (2009). Preventing patient falls. (2nd ed). Lamb: Marquis. PT-OP-E Functional Tests Start: 10/12/17 18:11 Freq: Status: Active Protocol: Document 03/28/18 09:45 DCW (Rec: 03/28/18 10:29 DCW [id number]) Functional Tests 6 Minute Walk Test Distance 870' Device Used 4WW PT-OP-M Strength Start: 10/12/17 18:11 Freq: Status: Active Protocol: Document 03/28/18 09:45 DCW (Rec: 03/28/18 10:29 DCW [id number]) Hip Strength Hip Manual Muscle Testing Right Flexion (L2) 5 Normal Abduction 5 Normal Adduction 5 Normal Left Flexion (L2) 4+ Good+ Abduction 5 Normal Adduction 5 Normal Knee Strength Knee Manual Muscle Testing Right Flexion (S2) 5 Normal Extension (L3) 5 Normal Left Flexion (S2) 4+ Good+ Extension (L3) 5 Normal Ankle/Foot Strength Ankle and Foot Manual Muscle Testing Right Dorsiflexion (L4) 2- Poor- Plantarflexion (S1) 3+ Fair+ Left Dorsiflexion (L4) 4+ Good+ Plantarflexion (S1) 5 Normal PT-OP-Q Treatments Start: 09/28/17 15:21 Freq: Status: Active Protocol: Document 07/26/18 09:45 DCW (Rec: 07/26/18 10:32 DCW [id number]) Gym Equipment Shuttle Balance 1 Details Blue - Wide WILIAN Therapeutic Exercises Supine Exercises Piriformis Stretch Supine Exercise Name Figure-4 Side left Other Exercises 1 Other Exercise Name Resisted Side-stepping Side bilateral Resistance Green Equipment Used T-band Gait Training Gait Activity 3 Device Used 4WW Level of Assistance SBA Distance/Duration 1270' Treatment Focus Increased gait distance/ tolerance Manual Therapy Treatment Soft Tissue Mobilization Piriformis Body Location L piriformis Mobilization Type Strumming Sustained Pressure Intensity/Depth Deep Body Position Sidelying PT-OP-T Assessment and Plan Start: 09/28/17 15:21 Freq: Status: Active Protocol: Document 07/26/18 09:45 DCW (Rec: 07/26/18 10:32 DCW [id number]) Physical Therapy Assessment Impairments Impairments Activity Tolerance Balance Functional Activities Functional Mobility Gait ROM Strength Goals Seven Impairment Donis Short Term Goal (STG) Pt to score 22/56 on Donis Balance scale STG Duration Met Group Home Goal (LTG) Pt to score 35/56 on Donis Balance scale LTG Duration 07/22/18 Six Impairment Static Standing Balance Group Home Goal (LTG) Pt to stand independently for 2 minutes LTG Duration 08/19/18 Five Impairment 6 MWT Group Home Goal (LTG) Pt to ambulate 1000' without rest using 4WW during 6 MWT LTG Duration 09/19/18 - Improving Four Impairment Foot slap Short Term Goal (STG) Pt to regularly wear R AFO to limit foot drop and help normalize gait pattern STG Duration Met Three Impairment Transfers Short Term Goal (STG) Pt to transfer independently from mat<->w/c with no assistive devices STG Duration Met Two Impairment Ankle weakness Vending Mechanic Goal (LTG) Pt to display 2/5 MMT in R DF, 4/5 MMT in R PF, and 4+/5 MMT in all other bilateral ankle movements LTG Duration 09/19/18 - Improving One Impairment Activity tolerance Group Home Goal (LTG) Pt to tolerate activity up to 15 minutes without a break LTG Duration 09/19/18 - Improving Assessment Summary Assessment Pt did very well today, returned to ambulating 7 laps in the gym, and performed excellently on the Shuttle Balance. Physical Therapy Plan Frequency and Duration Frequency of Treatment 2x/Week Duration of Treatment 3 months Plan of Care Start Date 06/21/18 Plan of Care End Date 09/19/18 Therapeutic Interventions Therapeutic Interventions Aquatic Therapy Balance Training Gait Training Home Exercise Program Manual Therapy Neuromuscular Re-education Soft Tissue Mobilization Therapeutic Activities Therapeutic Exercises Next Visit Focus/Plan Next Note Type Treatment Note Next Visit Plan Continue current POC
--- NOTE | 2018-07-29 10:28 | PT.OTN ---
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 with return to pre-existing conscious level, subsequent encounter (07/29/18) History of falling (07/29/18) Physical Therapy Treatment Note PT-OP-A Visit Information Start: 09/28/17 15:21 Freq: Status: Active Protocol: Document 07/29/18 09:45 DCW (Rec: 07/29/18 10:27 DCW [id number]) Out-Patient Physical Therapy Visit Information Visit Information Visit Type Treatment Note Visit Start Time 09:45 Visit Stop Time 10:30 Total Visit Minutes 45 Visit Number 80 Number of ANCHORMAN Visits 0 Evaluation Information Evaluation Date 07/27/17 PT-OP-B Current Condition Start: 09/28/17 15:21 Freq: Status: Active Protocol: Document 10/12/17 13:45 DCW (Rec: 10/12/17 18:33 DCW [id number]) Current Condition History of Current Condition Onset Date 02/05/17 History of Current Condition See Pt's initial evaluation in Therapy Source Current Functional Impairments (Reported) Functional Limitations- Mobility/Gait Transfers:W/C<->Mat Stand- pivot: Independent PT-OP-C Subjective Start: 09/28/17 15:21 Freq: Status: Active Protocol: Document 07/29/18 09:45 DCW (Rec: 07/29/18 10:27 DCW [id number]) OP-PT Subjective Patient Comments Patient Comments Pt reports feeling good today, is excited his granddaughter is moving back to the area. PT-OP-D Balance Start: 10/12/17 18:11 Freq: Status: Active Protocol: Document 03/28/18 09:45 DCW (Rec: 03/28/18 10:29 DCW [id number]) OP-PT Balance Assessment Standing Balance Standing Balance Comments Double leg, Eyes open: 1 Donis Balance Assessment Evaluation Sitting to Standing Ability Independent w/Hands Unsupported Stance 30 seconds Sitting Unsupported, Feet on Floor Safely- 2 minutes Standing to Sitting Ability Assist, Control w/Hands Transfer Ability Safely, Hand Use Unsupported Stance- Eyes Closed Supervision, 10 seconds Unsupported Stance- Eyes Open Independent, <30 seconds Reaching Forward Standing Safely, 5 inches Pick- Up Object From Floor Supervision Look Behind Shoulder - Standing Supervision w/Turning Turning 360 Degrees Requires Assistance Unsupported Stance, Alternating Feet on Assist to Prevent Fall Stair Unsupported Tandem Stance Assist to Step-15 seconds Unilateral Leg Stance Unable,assist to not fall Total Score Donis Total Score (out of 56 points) 28 Donis Impairment Rating 40 to 59% Impaired (Score 23- 33) Roberto Fall Scale Copyright Permission Roberto JM, Roberto RM, Mark SJ. Development of a scale to identify the fall- prone patient. Can J Aging 1989;8;366-7. Catrachita Mejia (2009). Preventing patient falls. (2nd ed). [place]: Marquis. PT-OP-E Functional Tests Start: 10/12/17 18:11 Freq: Status: Active Protocol: Document 03/28/18 09:45 DCW (Rec: 03/28/18 10:29 DCW [id number]) Functional Tests 6 Minute Walk Test Distance 870' Device Used 4WW PT-OP-M Strength Start: 10/12/17 18:11 Freq: Status: Active Protocol: Document 03/28/18 09:45 DCW (Rec: 03/28/18 10:29 DCW [id number]) Hip Strength Hip Manual Muscle Testing Right Flexion (L2) 5 Normal Abduction 5 Normal Adduction 5 Normal Left Flexion (L2) 4+ Good+ Abduction 5 Normal Adduction 5 Normal Knee Strength Knee Manual Muscle Testing Right Flexion (S2) 5 Normal Extension (L3) 5 Normal Left Flexion (S2) 4+ Good+ Extension (L3) 5 Normal Ankle/Foot Strength Ankle and Foot Manual Muscle Testing Right Dorsiflexion (L4) 2- Poor- Plantarflexion (S1) 3+ Fair+ Left Dorsiflexion (L4) 4+ Good+ Plantarflexion (S1) 5 Normal PT-OP-Q Treatments Start: 09/28/17 15:21 Freq: Status: Active Protocol: Document 07/29/18 09:45 DCW (Rec: 07/29/18 10:27 DCW [id number]) Gym Equipment Shuttle Recovery Unilateral Squats Resistance 100# Shuttle Recovery Platform Stable Reps/Time x20 Bilateral Squats Resistance 187# Shuttle Recovery Platform Stable Reps/Time x30 Shuttle Balance 1 Details Blue - Wide WILIAN Gait Training Gait Activity 3 Device Used 4WW Level of Assistance SBA Distance/Duration 930' x1, 340' x1 Treatment Focus Increased gait distance/ tolerance Manual Therapy Treatment Soft Tissue Mobilization Piriformis Body Location L piriformis Mobilization Type Strumming Sustained Pressure Intensity/Depth Deep Body Position Sidelying PT-OP-T Assessment and Plan Start: 09/28/17 15:21 Freq: Status: Active Protocol: Document 07/29/18 09:45 DCW (Rec: 07/29/18 10:27 DCW [id number]) Physical Therapy Assessment Impairments Impairments Activity Tolerance Balance Functional Activities Functional Mobility Gait ROM Strength Goals Seven Impairment Donis Short Term Goal (STG) Pt to score 22/56 on Donis Balance scale STG Duration Met Usp Goal (LTG) Pt to score 35/56 on Donis Balance scale LTG Duration 07/22/18 Six Impairment Static Standing Balance Stem Threshing Machine Operator Goal (LTG) Pt to stand independently for 2 minutes LTG Duration 08/19/18 Five Impairment 6 MWT Stem Threshing Machine Operator Goal (LTG) Pt to ambulate 1000' without rest using 4WW during 6 MWT LTG Duration 09/19/18 - Improving Four Impairment Foot slap Short Term Goal (STG) Pt to regularly wear R AFO to limit foot drop and help normalize gait pattern STG Duration Met Three Impairment Transfers Short Term Goal (STG) Pt to transfer independently from mat<->w/c with no assistive devices STG Duration Met Two Impairment Ankle weakness Stem Threshing Machine Operator Goal (LTG) Pt to display 2/5 MMT in R DF, 4/5 MMT in R PF, and 4+/5 MMT in all other bilateral ankle movements LTG Duration 09/19/18 - Improving One Impairment Activity tolerance Usp Goal (LTG) Pt to tolerate activity up to 15 minutes without a break LTG Duration 09/19/18 - Improving Assessment Summary Assessment Pt's L piriformis, both with palpation and with pt's subjective reports, is feeling much better, and pt is experiencing a drastic reduction in hip pain. Physical Therapy Plan Frequency and Duration Frequency of Treatment 2x/Week Duration of Treatment 3 months Plan of Care Start Date 06/21/18 Plan of Care End Date 09/19/18 Therapeutic Interventions Therapeutic Interventions Aquatic Therapy Balance Training Gait Training Home Exercise Program Manual Therapy Neuromuscular Re-education Soft Tissue Mobilization Therapeutic Activities Therapeutic Exercises Next Visit Focus/Plan Next Note Type Treatment Note Next Visit Plan Continue current POC
--- NOTE | 2018-08-02 10:32 | PT.OTN ---
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 with return to pre-existing conscious level, subsequent encounter (08/02/18) History of falling (08/02/18) Physical Therapy Treatment Note PT-OP-A Visit Information Start: 09/28/17 15:21 Freq: Status: Active Protocol: Document 08/02/18 09:45 DCW (Rec: 08/02/18 10:31 DCW [id number]) Out-Patient Physical Therapy Visit Information Visit Information Visit Type Treatment Note Visit Note Pt requested an early finish due to a dentist appointment Visit Start Time 09:45 Visit Stop Time 10:25 Total Visit Minutes 40 Visit Number 80 Number of LICENSED SURVEYOR Visits 0 Evaluation Information Evaluation Date 07/27/17 PT-OP-B Current Condition Start: 09/28/17 15:21 Freq: Status: Active Protocol: Document 10/12/17 13:45 DCW (Rec: 10/12/17 18:33 DCW [id number]) Current Condition History of Current Condition Onset Date 02/05/17 History of Current Condition See Pt's initial evaluation in Therapy Source Current Functional Impairments (Reported) Functional Limitations- Mobility/Gait Transfers:W/C<->Mat Stand- pivot: Independent PT-OP-C Subjective Start: 09/28/17 15:21 Freq: Status: Active Protocol: Document 08/02/18 09:45 DCW (Rec: 08/02/18 10:31 DCW [id number]) OP-PT Subjective Patient Comments Patient Comments Pt is in a wonderful mood today, reports his granddaughter is moving to the area and will be staying with him and his for a few weeks, which will give them a lot more help at home. PT-OP-D Balance Start: 10/12/17 18:11 Freq: Status: Active Protocol: Document 03/28/18 09:45 DCW (Rec: 03/28/18 10:29 DCW [id number]) OP-PT Balance Assessment Standing Balance Standing Balance Comments Double leg, Eyes open: Donis Balance Assessment Evaluation Sitting to Standing Ability Independent w/Hands Unsupported Stance 30 seconds Sitting Unsupported, Feet on Floor Safely- 2 minutes Standing to Sitting Ability Assist, Control w/Hands Transfer Ability Safely, Hand Use Unsupported Stance- Eyes Closed Supervision, 10 seconds Unsupported Stance- Eyes Open Independent, <30 seconds Reaching Forward Standing Safely, 5 inches Pick- Up Object From Floor Supervision Look Behind Shoulder - Standing Supervision w/Turning Turning 360 Degrees Requires Assistance Unsupported Stance, Alternating Feet on Assist to Prevent Fall Stair Unsupported Tandem Stance Assist to Step-15 seconds Unilateral Leg Stance Unable,assist to not fall Total Score Donis Total Score (out of 56 points) 28 Donis Impairment Rating 40 to 59% Impaired (Score 23- 33) Roberto Fall Scale Copyright Permission Roberto KELLY, Roberto RM, Mark SJ. Development of a scale to identify the fall- prone patient. Can J Aging 1989;8;366-7. Catrachita Mejia (2009). Preventing patient falls. (2nd ed). [place]: Marquis. PT-OP-E Functional Tests Start: 10/12/17 18:11 Freq: Status: Active Protocol: Document 03/28/18 09:45 DCW (Rec: 03/28/18 10:29 DCW [id number]) Functional Tests 6 Minute Walk Test Distance 870' Device Used 4WW PT-OP-M Strength Start: 10/12/17 18:11 Freq: Status: Active Protocol: Document 03/28/18 09:45 DCW (Rec: 03/28/18 10:29 DCW [id number]) Hip Strength Hip Manual Muscle Testing Right Flexion (L2) 5 Normal Abduction 5 Normal Adduction 5 Normal Left Flexion (L2) 4+ Good+ Abduction 5 Normal Adduction 5 Normal Knee Strength Knee Manual Muscle Testing Right Flexion (S2) 5 Normal Extension (L3) 5 Normal Left Flexion (S2) 4+ Good+ Extension (L3) 5 Normal Ankle/Foot Strength Ankle and Foot Manual Muscle Testing Right Dorsiflexion (L4) 2- Poor- Plantarflexion (S1) 3+ Fair+ Left Dorsiflexion (L4) 4+ Good+ Plantarflexion (S1) 5 Normal PT-OP-Q Treatments Start: 09/28/17 15:21 Freq: Status: Active Protocol: Document 08/02/18 09:45 DCW (Rec: 08/02/18 10:31 DCW [id number]) Gym Equipment Shuttle Recovery Bilateral Heel Raises Resistance 150# Shuttle Recovery Platform Stable Reps/Time x60 Unilateral Squats Resistance 100# Shuttle Recovery Platform Stable Reps/Time x20 Bilateral Squats Resistance 187# Shuttle Recovery Platform Stable Reps/Time x30 Therapeutic Exercises Other Exercises 1 Other Exercise Name Resisted Side-stepping Side bilateral Resistance Green Equipment Used T-band Gait Training Gait Activity 3 Device Used 4WW Level of Assistance SBA Distance/Duration 1100' Treatment Focus Increased gait distance/ tolerance 2 Description Ambulation /s AD Comments Pt ambulated 3 steps x2 inside // bars with no UE support PT-OP-T Assessment and Plan Start: 09/28/17 15:21 Freq: Status: Active Protocol: Document 08/02/18 09:45 DCW (Rec: 08/02/18 10:31 DCW [id number]) Physical Therapy Assessment Impairments Impairments Activity Tolerance Balance Functional Activities Functional Mobility Gait ROM Strength Goals Seven Impairment Donis Short Term Goal (STG) Pt to score 22/56 on Donis Balance scale STG Duration Met Snf Goal (LTG) Pt to score 35/56 on Donis Balance scale LTG Duration 07/22/18 Six Impairment Static Standing Balance Rocket Propellant Plant Supervisor Goal (LTG) Pt to stand independently for 2 minutes LTG Duration 08/19/18 Five Impairment 6 MWT Snf Goal (LTG) Pt to ambulate 1000' without rest using 4WW during 6 MWT LTG Duration 09/19/18 - Improving Four Impairment Foot slap Short Term Goal (STG) Pt to regularly wear R AFO to limit foot drop and help normalize gait pattern STG Duration Met Three Impairment Transfers Short Term Goal (STG) Pt to transfer independently from mat<->w/c with no assistive devices STG Duration Met Two Impairment Ankle weakness Rocket Propellant Plant Supervisor Goal (LTG) Pt to display 2/5 MMT in R DF, 4/5 MMT in R PF, and 4+/5 MMT in all other bilateral ankle movements LTG Duration 09/19/18 - Improving One Impairment Activity tolerance Snf Goal (LTG) Pt to tolerate activity up to 15 minutes without a break LTG Duration 09/19/18 - Improving Assessment Summary Assessment Pt able to take six steps today without the use of UE assistance, reports those are the first unassisted steps he has taken in a year and a half . Physical Therapy Plan Frequency and Duration Frequency of Treatment 2x/Week Duration of Treatment 3 months Plan of Care Start Date 06/21/18 Plan of Care End Date 09/19/18 Therapeutic Interventions Therapeutic Interventions Aquatic Therapy Balance Training Gait Training Home Exercise Program Manual Therapy Neuromuscular Re-education Soft Tissue Mobilization Therapeutic Activities Therapeutic Exercises Next Visit Focus/Plan Next Note Type Treatment Note Next Visit Plan Continue current POC
--- NOTE | 2018-08-09 10:28 | PT.OTN ---
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 with return to pre-existing conscious level, subsequent encounter (08/09/18) History of falling (08/09/18) Physical Therapy Treatment Note PT-OP-A Visit Information Start: 09/28/17 15:21 Freq: Status: Active Protocol: Document 08/09/18 09:45 DCW (Rec: 08/09/18 10:28 DCW [id number]) Out-Patient Physical Therapy Visit Information Visit Information Visit Type Treatment Note Visit Start Time 09:45 Visit Stop Time 10:30 Total Visit Minutes 45 Visit Number 82 Number of LAUNDRY MACHINE MECHANIC Visits 0 Evaluation Information Evaluation Date 07/27/17 PT-OP-B Current Condition Start: 09/28/17 15:21 Freq: Status: Active Protocol: Document 10/12/17 13:45 DCW (Rec: 10/12/17 18:33 DCW [id number]) Current Condition History of Current Condition Onset Date 02/05/17 History of Current Condition See Pt's initial evaluation in Therapy Source Current Functional Impairments (Reported) Functional Limitations- Mobility/Gait Transfers:W/C<->Mat Stand- pivot: Independent PT-OP-C Subjective Start: 09/28/17 15:21 Freq: Status: Active Protocol: Document 08/09/18 09:45 DCW (Rec: 08/09/18 10:28 DCW [id number]) OP-PT Subjective Patient Comments Patient Comments Pt reports that his hip bothers him a little at night if he lays on it too long, but it's still the best it has felt in 12 years. PT-OP-D Balance Start: 10/12/17 18:11 Freq: Status: Active Protocol: Document 03/28/18 09:45 DCW (Rec: 03/28/18 10:29 DCW [id number]) OP-PT Balance Assessment Standing Balance Standing Balance Comments Double leg, Eyes open: Donis Balance Assessment Evaluation Sitting to Standing Ability Independent w/Hands Unsupported Stance 30 seconds Sitting Unsupported, Feet on Floor Safely- 2 minutes Standing to Sitting Ability Assist, Control w/Hands Transfer Ability Safely, Hand Use Unsupported Stance- Eyes Closed Supervision, 10 seconds Unsupported Stance- Eyes Open Independent, <30 seconds Reaching Forward Standing Safely, 5 inches Pick- Up Object From Floor Supervision Look Behind Shoulder - Standing Supervision w/Turning Turning 360 Degrees Requires Assistance Unsupported Stance, Alternating Feet on Assist to Prevent Fall Stair Unsupported Tandem Stance Assist to Step-15 seconds Unilateral Leg Stance Unable,assist to not fall Total Score Donis Total Score (out of 56 points) 28 Donis Impairment Rating 40 to 59% Impaired (Score 23- 33) Mejia Fall Scale Copyright Permission Roberto KELLY, Roberto RM, Makr SJ. Development of a scale to identify the fall- prone patient. Can J Aging 1989;8;366-7. Catrachita Mejia (2009). Preventing patient falls. (2nd ed). [place]: Marquis. PT-OP-E Functional Tests Start: 10/12/17 18:11 Freq: Status: Active Protocol: Document 03/28/18 09:45 DCW (Rec: 03/28/18 10:29 DCW [id number]) Functional Tests 6 Minute Walk Test Distance 870' Device Used 4WW PT-OP-M Strength Start: 10/12/17 18:11 Freq: Status: Active Protocol: Document 03/28/18 09:45 DCW (Rec: 03/28/18 10:29 DCW [id number]) Hip Strength Hip Manual Muscle Testing Right Flexion (L2) 5 Normal Abduction 5 Normal Adduction 5 Normal Left Flexion (L2) 4+ Good+ Abduction 5 Normal Adduction 5 Normal Knee Strength Knee Manual Muscle Testing Right Flexion (S2) 5 Normal Extension (L3) 5 Normal Left Flexion (S2) 4+ Good+ Extension (L3) 5 Normal Ankle/Foot Strength Ankle and Foot Manual Muscle Testing Right Dorsiflexion (L4) 2- Poor- Plantarflexion (S1) 3+ Fair+ Left Dorsiflexion (L4) 4+ Good+ Plantarflexion (S1) 5 Normal PT-OP-Q Treatments Start: 09/28/17 15:21 Freq: Status: Active Protocol: Document 08/09/18 09:45 DCW (Rec: 08/09/18 10:28 DCW [id number]) Gait Training Gait Activity 3 Device Used 4WW Level of Assistance SBA Distance/Duration 1270' Treatment Focus Increased gait distance/ tolerance 2 Description Ambulation /s AD Level of Assistance CGA Comments Pt ambulated entire 10' length of // bars with no UE support x2. (took 33 and 34 steps). Manual Therapy Treatment Soft Tissue Mobilization Piriformis Body Location L piriformis Mobilization Type Strumming Sustained Pressure Intensity/Depth Deep Body Position Sidelying PT-OP-T Assessment and Plan Start: 09/28/17 15:21 Freq: Status: Active Protocol: Document 08/09/18 09:45 DCW (Rec: 08/09/18 10:28 DCW [id number]) Physical Therapy Assessment Impairments Impairments Activity Tolerance Balance Functional Activities Functional Mobility Gait ROM Strength Goals Seven Impairment Donis Short Term Goal (STG) Pt to score 22/56 on Donis Balance scale STG Duration Met Correction Goal (LTG) Pt to score 35/56 on Donis Balance scale LTG Duration 07/22/18 Six Impairment Static Standing Balance Industrial Controller Goal (LTG) Pt to stand independently for 2 minutes LTG Duration 08/19/18 Five Impairment 6 MWT Correction Goal (LTG) Pt to ambulate 1000' without rest using 4WW during 6 MWT LTG Duration 09/19/18 - Improving Four Impairment Foot slap Short Term Goal (STG) Pt to regularly wear R AFO to limit foot drop and help normalize gait pattern STG Duration Met Three Impairment Transfers Short Term Goal (STG) Pt to transfer independently from mat<->w/c with no assistive devices STG Duration Met Two Impairment Ankle weakness Industrial Controller Goal (LTG) Pt to display 2/5 MMT in R DF, 4/5 MMT in R PF, and 4+/5 MMT in all other bilateral ankle movements LTG Duration 09/19/18 - Improving One Impairment Activity tolerance Industrial Controller Goal (LTG) Pt to tolerate activity up to 15 minutes without a break LTG Duration 09/19/18 - Improving Assessment Summary Assessment Pt able to ambulate 11x further today without an assistive device than he could last week. Continue to progress ambulation tolerance, balance, STM to piriformis, and activity tolerance. Physical Therapy Plan Frequency and Duration Frequency of Treatment 2x/Week Duration of Treatment 3 months Plan of Care Start Date 06/21/18 Plan of Care End Date 09/19/18 Therapeutic Interventions Therapeutic Interventions Aquatic Therapy Balance Training Gait Training Home Exercise Program Manual Therapy Neuromuscular Re-education Soft Tissue Mobilization Therapeutic Activities Therapeutic Exercises Next Visit Focus/Plan Next Note Type Treatment Note Next Visit Plan Continue current POC
--- NOTE | 2018-08-12 10:32 | PT.OTN ---
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 with return to pre-existing conscious level, subsequent encounter (08/12/18) History of falling (08/12/18) Physical Therapy Treatment Note PT-OP-A Visit Information Start: 09/28/17 15:21 Freq: Status: Active Protocol: Document 08/12/18 09:45 DCW (Rec: 08/12/18 10:32 DCW [id number]) Out-Patient Physical Therapy Visit Information Visit Information Visit Type Treatment Note Visit Start Time 09:45 Visit Stop Time 10:30 Total Visit Minutes 45 Visit Number 83 Number of QUALITY SYSTEMS ENGINEER Visits 0 Evaluation Information Evaluation Date 07/27/17 PT-OP-B Current Condition Start: 09/28/17 15:21 Freq: Status: Active Protocol: Document 10/12/17 13:45 DCW (Rec: 10/12/17 18:33 DCW [id number]) Current Condition History of Current Condition Onset Date 02/05/17 History of Current Condition See Pt's initial evaluation in Therapy Source Current Functional Impairments (Reported) Functional Limitations- Mobility/Gait Transfers:W/C<->Mat Stand- pivot: Independent PT-OP-C Subjective Start: 09/28/17 15:21 Freq: Status: Active Protocol: Document 08/12/18 09:45 DCW (Rec: 08/12/18 10:32 DCW [id number]) OP-PT Subjective Patient Comments Patient Comments Pt reports he's feeling okay today, but is a little tired. PT-OP-D Balance Start: 10/12/17 18:11 Freq: Status: Active Protocol: Document 03/28/18 09:45 DCW (Rec: 03/28/18 10:29 DCW [id number]) OP-PT Balance Assessment Standing Balance Standing Balance Comments Double leg, Eyes open: Donis Balance Assessment Evaluation Sitting to Standing Ability Independent w/Hands Unsupported Stance 30 seconds Sitting Unsupported, Feet on Floor Safely- 2 minutes Standing to Sitting Ability Assist, Control w/Hands Transfer Ability Safely, Hand Use Unsupported Stance- Eyes Closed Supervision, 10 seconds Unsupported Stance- Eyes Open Independent, <30 seconds Reaching Forward Standing Safely, 5 inches Pick- Up Object From Floor Supervision Look Behind Shoulder - Standing Supervision w/Turning Turning 360 Degrees Requires Assistance Unsupported Stance, Alternating Feet on Assist to Prevent Fall Stair Unsupported Tandem Stance Assist to Step-15 seconds Unilateral Leg Stance Unable,assist to not fall Total Score Donis Total Score (out of 56 points) 28 Donis Impairment Rating 40 to 59% Impaired (Score 23- 33) Roberto Fall Scale Copyright Permission Roberto JM, Roberto RM, Mark SJ. Development of a scale to identify the fall- prone patient. Can J Aging 1989;8;366-7. Catrachita Mejia (2009). Preventing patient falls. (2nd ed). [place]: Marquis. PT-OP-E Functional Tests Start: 10/12/17 18:11 Freq: Status: Active Protocol: Document 03/28/18 09:45 DCW (Rec: 03/28/18 10:29 DCW [id number]) Functional Tests 6 Minute Walk Test Distance 870' Device Used 4WW PT-OP-M Strength Start: 10/12/17 18:11 Freq: Status: Active Protocol: Document 03/28/18 09:45 DCW (Rec: 03/28/18 10:29 DCW [id number]) Hip Strength Hip Manual Muscle Testing Right Flexion (L2) 5 Normal Abduction 5 Normal Adduction 5 Normal Left Flexion (L2) 4+ Good+ Abduction 5 Normal Adduction 5 Normal Knee Strength Knee Manual Muscle Testing Right Flexion (S2) 5 Normal Extension (L3) 5 Normal Left Flexion (S2) 4+ Good+ Extension (L3) 5 Normal Ankle/Foot Strength Ankle and Foot Manual Muscle Testing Right Dorsiflexion (L4) 2- Poor- Plantarflexion (S1) 3+ Fair+ Left Dorsiflexion (L4) 4+ Good+ Plantarflexion (S1) 5 Normal PT-OP-Q Treatments Start: 09/28/17 15:21 Freq: Status: Active Protocol: Document 08/12/18 09:45 DCW (Rec: 08/12/18 10:32 DCW [id number]) Gym Equipment Shuttle Recovery Bilateral Heel Raises Resistance 150# Shuttle Recovery Platform Stable Reps/Time x60 Unilateral Squats Resistance 100# Shuttle Recovery Platform Stable Reps/Time x20 Bilateral Squats Resistance 187# Shuttle Recovery Platform Stable Reps/Time x30 Gait Training Gait Activity 3 Device Used 4WW Level of Assistance SBA Distance/Duration 930' Treatment Focus Increased gait distance/ tolerance 2 Description Ambulation /s AD Level of Assistance CGA Comments Pt ambulated entire 10' length of // bars with no UE support x4. (took 28-37 steps). PT-OP-T Assessment and Plan Start: 09/28/17 15:21 Freq: Status: Active Protocol: Document 08/12/18 09:45 DCW (Rec: 08/12/18 10:32 DCW [id number]) Physical Therapy Assessment Impairments Impairments Activity Tolerance Balance Functional Activities Functional Mobility Gait ROM Strength Goals Seven Impairment Donis Short Term Goal (STG) Pt to score 22/56 on Donis Balance scale STG Duration Met Medical Support Specialist Goal (LTG) Pt to score 35/56 on Donis Balance scale LTG Duration 07/22/18 Six Impairment Static Standing Balance Chcf Goal (LTG) Pt to stand independently for 2 minutes LTG Duration 08/19/18 Five Impairment 6 MWT Chcf Goal (LTG) Pt to ambulate 1000' without rest using 4WW during 6 MWT LTG Duration 09/19/18 - Improving Four Impairment Foot slap Short Term Goal (STG) Pt to regularly wear R AFO to limit foot drop and help normalize gait pattern STG Duration Met Three Impairment Transfers Short Term Goal (STG) Pt to transfer independently from mat<->w/c with no assistive devices STG Duration Met Two Impairment Ankle weakness Chcf Goal (LTG) Pt to display 2/5 MMT in R DF, 4/5 MMT in R PF, and 4+/5 MMT in all other bilateral ankle movements LTG Duration 09/19/18 - Improving One Impairment Activity tolerance Chcf Goal (LTG) Pt to tolerate activity up to 15 minutes without a break LTG Duration 09/19/18 - Improving Assessment Summary Assessment Pt fatigued more quickly today during his FWW ambulation, however was able to do much better ambulating /s AD. Physical Therapy Plan Frequency and Duration Frequency of Treatment 2x/Week Duration of Treatment 3 months Plan of Care Start Date 06/21/18 Plan of Care End Date 09/19/18 Therapeutic Interventions Therapeutic Interventions Aquatic Therapy Balance Training Gait Training Home Exercise Program Manual Therapy Neuromuscular Re-education Soft Tissue Mobilization Therapeutic Activities Therapeutic Exercises Next Visit Focus/Plan Next Note Type Treatment Note Next Visit Plan Continue current POC
--- NOTE | 2018-08-19 10:22 | PT.OTN ---
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 greater than 24 hours with return to pre-existing conscious level, subsequent encounter (08/19/18) History of falling (08/19/18) Physical Therapy Treatment Note PT-OP-A Visit Information Start: 09/28/17 15:21 Freq: Status: Active Protocol: Document 08/19/18 09:30 DCW (Rec: 08/19/18 10:21 DCW [id number]) Out-Patient Physical Therapy Visit Information Visit Information Visit Type Treatment Note Visit Start Time 09:30 Visit Stop Time 10:15 Total Visit Minutes 45 Visit Number 84 Number of VISION SPECIALIST Visits 0 Evaluation Information Evaluation Date 07/27/17 PT-OP-B Current Condition Start: 09/28/17 15:21 Freq: Status: Active Protocol: Document 10/12/17 13:45 DCW (Rec: 10/12/17 18:33 DCW [id number]) Current Condition History of Current Condition Onset Date 02/05/17 History of Current Condition See Pt's initial evaluation in Therapy Source Current Functional Impairments (Reported) Functional Limitations- Mobility/Gait Transfers:W/C<->Mat Stand- pivot: Independent PT-OP-C Subjective Start: 09/28/17 15:21 Freq: Status: Active Protocol: Document 08/19/18 09:30 DCW (Rec: 08/19/18 10:21 DCW [id number]) OP-PT Subjective Patient Comments Patient Comments Pt is doing well today, notes that he still has occasional stiffness in his hip, but notes that it feels much better all the time now. PT-OP-D Balance Start: 10/12/17 18:11 Freq: Status: Active Protocol: Document 03/28/18 09:45 DCW (Rec: 03/28/18 10:29 DCW [id number]) OP-PT Balance Assessment Standing Balance Standing Balance Comments Double leg, Eyes open: Donis Balance Assessment Evaluation Sitting to Standing Ability Independent w/Hands Unsupported Stance 30 seconds Sitting Unsupported, Feet on Floor Safely- 2 minutes Standing to Sitting Ability Assist, Control w/Hands Transfer Ability Safely, Hand Use Unsupported Stance- Eyes Closed Supervision, 10 seconds Unsupported Stance- Eyes Open Independent, <30 seconds Reaching Forward Standing Safely, 5 inches Pick- Up Object From Floor Supervision Look Behind Shoulder - Standing Supervision w/Turning Turning 360 Degrees Requires Assistance Unsupported Stance, Alternating Feet on Assist to Prevent Fall Stair Unsupported Tandem Stance Assist to Step-15 seconds Unilateral Leg Stance Unable,assist to not fall Total Score Donis Total Score (out of 56 points) 28 Donis Impairment Rating 40 to 59% Impaired (Score 23- 33) Mejia Fall Scale Copyright Permission Roberto KELLY, Roberto RM, Mark SJ. Development of a scale to identify the fall- prone patient. Can J Aging 1989;8;366-7. Catrachita Mejia (2009). Preventing patient falls. (2nd ed). [place]: Marquis. PT-OP-E Functional Tests Start: 10/12/17 18:11 Freq: Status: Active Protocol: Document 03/28/18 09:45 DCW (Rec: 03/28/18 10:29 DCW [id number]) Functional Tests 6 Minute Walk Test Distance 870' Device Used 4WW PT-OP-M Strength Start: 10/12/17 18:11 Freq: Status: Active Protocol: Document 03/28/18 09:45 DCW (Rec: 03/28/18 10:29 DCW [id number]) Hip Strength Hip Manual Muscle Testing Right Flexion (L2) 5 Normal Abduction 5 Normal Adduction 5 Normal Left Flexion (L2) 4+ Good+ Abduction 5 Normal Adduction 5 Normal Knee Strength Knee Manual Muscle Testing Right Flexion (S2) 5 Normal Extension (L3) 5 Normal Left Flexion (S2) 4+ Good+ Extension (L3) 5 Normal Ankle/Foot Strength Ankle and Foot Manual Muscle Testing Right Dorsiflexion (L4) 2- Poor- Plantarflexion (S1) 3+ Fair+ Left Dorsiflexion (L4) 4+ Good+ Plantarflexion (S1) 5 Normal PT-OP-Q Treatments Start: 09/28/17 15:21 Freq: Status: Active Protocol: Document 08/19/18 09:30 DCW (Rec: 08/19/18 10:21 DCW [id number]) Gym Equipment Shuttle Balance 1 Details Blue - Wide WILIAN Therapeutic Exercises Other Exercises 1 Other Exercise Name Resisted Side-stepping Side bilateral Resistance Green Equipment Used T-band Gait Training Gait Activity 3 Device Used 4WW Level of Assistance SBA Distance/Duration 550' Treatment Focus Increased gait distance/ tolerance 2 Description Ambulation /s AD Level of Assistance CGA Comments Pt ambulated entire 10' length of // bars with no UE support x5 (took 14-24 steps). Manual Therapy Treatment Soft Tissue Mobilization Piriformis Body Location L piriformis Mobilization Type Strumming Sustained Pressure Intensity/Depth Deep Body Position Sidelying PT-OP-T Assessment and Plan Start: 09/28/17 15:21 Freq: Status: Active Protocol: Document 08/19/18 09:30 DCW (Rec: 08/19/18 10:21 DCW [id number]) Physical Therapy Assessment Impairments Impairments Activity Tolerance Balance Functional Activities Functional Mobility Gait ROM Strength Goals Seven Impairment Donis Short Term Goal (STG) Pt to score 22/56 on Donis Balance scale STG Duration Met Skilled Nursing Goal (LTG) Pt to score 35/56 on Donis Balance scale LTG Duration 07/22/18 Six Impairment Static Standing Balance Checker In Goal (LTG) Pt to stand independently for 2 minutes LTG Duration 08/19/18 Five Impairment 6 MWT Checker In Goal (LTG) Pt to ambulate 1000' without rest using 4WW during 6 MWT LTG Duration 09/19/18 - Improving Four Impairment Foot slap Short Term Goal (STG) Pt to regularly wear R AFO to limit foot drop and help normalize gait pattern STG Duration Met Three Impairment Transfers Short Term Goal (STG) Pt to transfer independently from mat<->w/c with no assistive devices STG Duration Met Two Impairment Ankle weakness Checker In Goal (LTG) Pt to display 2/5 MMT in R DF, 4/5 MMT in R PF, and 4+/5 MMT in all other bilateral ankle movements LTG Duration 09/19/18 - Improving One Impairment Activity tolerance Checker In Goal (LTG) Pt to tolerate activity up to 15 minutes without a break LTG Duration 09/19/18 - Improving Assessment Summary Assessment Pt walked significantly less distance today, however he normally performs his distance walking first, and today he started with his ambulating without and AD in the // bars, where he was able to do much better than he had been previously, both in number of reps and lengthening his steps to cover the distance with fewer steps Physical Therapy Plan Frequency and Duration Frequency of Treatment 2x/Week Duration of Treatment 3 months Plan of Care Start Date 06/21/18 Plan of Care End Date 09/19/18 Therapeutic Interventions Therapeutic Interventions Aquatic Therapy Balance Training Gait Training Home Exercise Program Manual Therapy Neuromuscular Re-education Soft Tissue Mobilization Therapeutic Activities Therapeutic Exercises Next Visit Focus/Plan Next Note Type Treatment Note Next Visit Plan Continue current POC
--- NOTE | 2018-08-23 10:27 | PT.OTN ---
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 with return to pre-existing conscious level, subsequent encounter (08/23/18) History of falling (08/23/18) Physical Therapy Treatment Note PT-OP-A Visit Information Start: 09/28/17 15:21 Freq: Status: Active Protocol: Document 08/23/18 09:45 DCW (Rec: 08/23/18 10:27 DCW [id number]) Out-Patient Physical Therapy Visit Information Visit Information Visit Type Treatment Note Visit Start Time 09:45 Visit Stop Time 10:30 Total Visit Minutes 45 Visit Number 85 Number of AUTOMOTIVE LEASING SALES REPRESENTATIVE Visits 0 Evaluation Information Evaluation Date 07/27/17 PT-OP-B Current Condition Start: 09/28/17 15:21 Freq: Status: Active Protocol: Document 10/12/17 13:45 DCW (Rec: 10/12/17 18:33 DCW [id number]) Current Condition History of Current Condition Onset Date 02/05/17 History of Current Condition See Pt's initial evaluation in Therapy Source Current Functional Impairments (Reported) Functional Limitations- Mobility/Gait Transfers:W/C<->Mat Stand- pivot: Independent PT-OP-C Subjective Start: 09/28/17 15:21 Freq: Status: Active Protocol: Document 08/23/18 09:45 DCW (Rec: 08/23/18 10:27 DCW [id number]) OP-PT Subjective Patient Comments Patient Comments Pt reports he is doing well today, no complaints. Reports his hip is feeling fantastic. PT-OP-D Balance Start: 10/12/17 18:11 Freq: Status: Active Protocol: Document 03/28/18 09:45 DCW (Rec: 03/28/18 10:29 DCW [id number]) OP-PT Balance Assessment Standing Balance Standing Balance Comments Double leg, Eyes open: Donis Balance Assessment Evaluation Sitting to Standing Ability Independent w/Hands Unsupported Stance 30 seconds Sitting Unsupported, Feet on Floor Safely- 2 minutes Standing to Sitting Ability Assist, Control w/Hands Transfer Ability Safely, Hand Use Unsupported Stance- Eyes Closed Supervision, 10 seconds Unsupported Stance- Eyes Open Independent, <30 seconds Reaching Forward Standing Safely, 5 inches Pick- Up Object From Floor Supervision Look Behind Shoulder - Standing Supervision w/Turning Turning 360 Degrees Requires Assistance Unsupported Stance, Alternating Feet on Assist to Prevent Fall Stair Unsupported Tandem Stance Assist to Step-15 seconds Unilateral Leg Stance Unable,assist to not fall Total Score Donis Total Score (out of 56 points) 28 Donis Impairment Rating 40 to 59% Impaired (Score 23- 33) Roberto Fall Scale Copyright Permission Roberto JM, Roberto RM, Mark SJ. Development of a scale to identify the fall- prone patient. Can J Aging 1989;8;366-7. Catrachita Mejia (2009). Preventing patient falls. (2nd ed). [place]: [place]. PT-OP-E Functional Tests Start: 10/12/17 18:11 Freq: Status: Active Protocol: Document 03/28/18 09:45 DCW (Rec: 03/28/18 10:29 DCW [id number]) Functional Tests 6 Minute Walk Test Distance 870' Device Used 4WW PT-OP-M Strength Start: 10/12/17 18:11 Freq: Status: Active Protocol: Document 03/28/18 09:45 DCW (Rec: 03/28/18 10:29 DCW [id number]) Hip Strength Hip Manual Muscle Testing Right Flexion (L2) 5 Normal Abduction 5 Normal Adduction 5 Normal Left Flexion (L2) 4+ Good+ Abduction 5 Normal Adduction 5 Normal Knee Strength Knee Manual Muscle Testing Right Flexion (S2) 5 Normal Extension (L3) 5 Normal Left Flexion (S2) 4+ Good+ Extension (L3) 5 Normal Ankle/Foot Strength Ankle and Foot Manual Muscle Testing Right Dorsiflexion (L4) 2- Poor- Plantarflexion (S1) 3+ Fair+ Left Dorsiflexion (L4) 4+ Good+ Plantarflexion (S1) 5 Normal PT-OP-Q Treatments Start: 09/28/17 15:21 Freq: Status: Active Protocol: Document 08/23/18 09:45 DCW (Rec: 08/23/18 10:27 DCW [id number]) Gym Equipment Shuttle Recovery Unilateral Squats Resistance 100# Shuttle Recovery Platform Stable Reps/Time x20 Bilateral Squats Resistance 187# Shuttle Recovery Platform Stable Reps/Time x30 Shuttle Balance 1 Details Blue - Wide WILIAN Gait Training Gait Activity 3 Device Used 4WW Level of Assistance SBA Distance/Duration 850' Treatment Focus Increased gait distance/ tolerance 2 Description Ambulation /s AD Level of Assistance CGA Treatment Focus Focus on increased step length , continous movement Comments Pt ambulated entire 10' length of // bars with no UE support x5 (took 16-18 steps). PT-OP-T Assessment and Plan Start: 09/28/17 15:21 Freq: Status: Active Protocol: Document 08/23/18 09:45 DCW (Rec: 08/23/18 10:27 DCW [id number]) Physical Therapy Assessment Impairments Impairments Activity Tolerance Balance Functional Activities Functional Mobility Gait ROM Strength Goals Seven Impairment Donis Short Term Goal (STG) Pt to score 22/56 on Donis Balance scale STG Duration Met Prison Goal (LTG) Pt to score 35/56 on Donis Balance scale LTG Duration 07/22/18 Six Impairment Static Standing Balance Prison Goal (LTG) Pt to stand independently for 2 minutes LTG Duration 08/19/18 Five Impairment 6 MWT Prison Goal (LTG) Pt to ambulate 1000' without rest using 4WW during 6 MWT LTG Duration 09/19/18 - Improving Four Impairment Foot slap Short Term Goal (STG) Pt to regularly wear R AFO to limit foot drop and help normalize gait pattern STG Duration Met Three Impairment Transfers Short Term Goal (STG) Pt to transfer independently from mat<->w/c with no assistive devices STG Duration Met Two Impairment Ankle weakness Prison Goal (LTG) Pt to display 2/5 MMT in R DF, 4/5 MMT in R PF, and 4+/5 MMT in all other bilateral ankle movements LTG Duration 09/19/18 - Improving One Impairment Activity tolerance Prison Goal (LTG) Pt to tolerate activity up to 15 minutes without a break LTG Duration 09/19/18 - Improving Assessment Summary Assessment Pt increasing distance even with addition of gait /s AD prior to distance walking. Pt continuing to improve hands- free ambulation, able to walk today in a continous motion without stopping after each step. Physical Therapy Plan Frequency and Duration Frequency of Treatment 2x/Week Duration of Treatment 3 months Plan of Care Start Date 06/21/18 Plan of Care End Date 09/19/18 Therapeutic Interventions Therapeutic Interventions Aquatic Therapy Balance Training Gait Training Home Exercise Program Manual Therapy Neuromuscular Re-education Soft Tissue Mobilization Therapeutic Activities Therapeutic Exercises Next Visit Focus/Plan Next Note Type Treatment Note Next Visit Plan Continue current POC
--- NOTE | 2018-08-26 10:29 | PT.OTN ---
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 with return to pre-existing conscious level, subsequent encounter (08/26/18) History of falling (08/26/18) Physical Therapy Treatment Note PT-OP-A Visit Information Start: 09/28/17 15:21 Freq: Status: Active Protocol: Document 08/26/18 09:45 DCW (Rec: 08/26/18 10:25 DCW [id number]) Out-Patient Physical Therapy Visit Information Visit Information Visit Type Treatment Note Visit Start Time 09:45 Visit Stop Time 10:30 Total Visit Minutes 45 Visit Number 86 Number of TELEPHONE DIRECTORY DELIVERER Visits 0 Evaluation Information Evaluation Date 07/27/17 PT-OP-B Current Condition Start: 09/28/17 15:21 Freq: Status: Active Protocol: Document 10/12/17 13:45 DCW (Rec: 10/12/17 18:33 DCW [id number]) Current Condition History of Current Condition Onset Date 02/05/17 History of Current Condition See Pt's initial evaluation in Therapy Source Current Functional Impairments (Reported) Functional Limitations- Mobility/Gait Transfers:W/C<->Mat Stand- pivot: Independent PT-OP-C Subjective Start: 09/28/17 15:21 Freq: Status: Active Protocol: Document 08/26/18 09:45 DCW (Rec: 08/26/18 10:25 DCW [id number]) OP-PT Subjective Patient Comments Patient Comments Pt is looking forward to working more on his walking today. PT-OP-D Balance Start: 10/12/17 18:11 Freq: Status: Active Protocol: Document 03/28/18 09:45 DCW (Rec: 03/28/18 10:29 DCW [id number]) OP-PT Balance Assessment Standing Balance Standing Balance Comments Double leg, Eyes open: Donis Balance Assessment Evaluation Sitting to Standing Ability Independent w/Hands Unsupported Stance 30 seconds Sitting Unsupported, Feet on Floor Safely- 2 minutes Standing to Sitting Ability Assist, Control w/Hands Transfer Ability Safely, Hand Use Unsupported Stance- Eyes Closed Supervision, 10 seconds Unsupported Stance- Eyes Open Independent, <30 seconds Reaching Forward Standing Safely, 5 inches Pick- Up Object From Floor Supervision Look Behind Shoulder - Standing Supervision w/Turning Turning 360 Degrees Requires Assistance Unsupported Stance, Alternating Feet on Assist to Prevent Fall Stair Unsupported Tandem Stance Assist to Step-15 seconds Unilateral Leg Stance Unable,assist to not fall Total Score Donis Total Score (out of 56 points) 28 Donis Impairment Rating 40 to 59% Impaired (Score 23- 33) Mejia Fall Scale Copyright Permission Roberto JM, Roberto RM, Mark SJ. Development of a scale to identify the fall- prone patient. Can J Aging 1989;8;366-7. Catrachita Mejia (2009). Preventing patient falls. (2nd ed). [place]: [place]. PT-OP-E Functional Tests Start: 10/12/17 18:11 Freq: Status: Active Protocol: Document 03/28/18 09:45 DCW (Rec: 03/28/18 10:29 DCW [id number]) Functional Tests 6 Minute Walk Test Distance 870' Device Used 4WW PT-OP-M Strength Start: 10/12/17 18:11 Freq: Status: Active Protocol: Document 03/28/18 09:45 DCW (Rec: 03/28/18 10:29 DCW [id number]) Hip Strength Hip Manual Muscle Testing Right Flexion (L2) 5 Normal Abduction 5 Normal Adduction 5 Normal Left Flexion (L2) 4+ Good+ Abduction 5 Normal Adduction 5 Normal Knee Strength Knee Manual Muscle Testing Right Flexion (S2) 5 Normal Extension (L3) 5 Normal Left Flexion (S2) 4+ Good+ Extension (L3) 5 Normal Ankle/Foot Strength Ankle and Foot Manual Muscle Testing Right Dorsiflexion (L4) 2- Poor- Plantarflexion (S1) 3+ Fair+ Left Dorsiflexion (L4) 4+ Good+ Plantarflexion (S1) 5 Normal PT-OP-Q Treatments Start: 09/28/17 15:21 Freq: Status: Active Protocol: Document 08/26/18 09:45 DCW (Rec: 08/26/18 10:25 DCW [id number]) Gym Equipment Shuttle Recovery Unilateral Squats Resistance 100# Shuttle Recovery Platform Stable Reps/Time x20 Bilateral Squats Resistance 187# Shuttle Recovery Platform Stable Reps/Time x30 Therapeutic Exercises Other Exercises 1 Other Exercise Name Resisted Side-stepping Side bilateral Resistance Green Equipment Used T-band Gait Training Gait Activity 3 Device Used 4WW Level of Assistance SBA Distance/Duration 850' Treatment Focus Increased gait distance/ tolerance 2 Description Ambulation /s AD Level of Assistance CGA Treatment Focus Focus on increased step length , continous movement Comments Pt ambulated entire 10' length of // bars with no UE support x7 (took 12-18 steps). PT-OP-T Assessment and Plan Start: 09/28/17 15:21 Freq: Status: Active Protocol: Document 08/26/18 09:45 DCW (Rec: 08/26/18 10:25 DCW [id number]) Physical Therapy Assessment Impairments Impairments Activity Tolerance Balance Functional Activities Functional Mobility Gait ROM Strength Goals Seven Impairment Donis Short Term Goal (STG) Pt to score 22/56 on Donis Balance scale STG Duration Met Mine Safety Engineer Goal (LTG) Pt to score 35/56 on Donis Balance scale LTG Duration 07/22/18 Six Impairment Static Standing Balance Intermediate Goal (LTG) Pt to stand independently for 2 minutes LTG Duration 08/19/18 Five Impairment 6 MWT Mine Safety Engineer Goal (LTG) Pt to ambulate 1000' without rest using 4WW during 6 MWT LTG Duration 09/19/18 - Improving Four Impairment Foot slap Short Term Goal (STG) Pt to regularly wear R AFO to limit foot drop and help normalize gait pattern STG Duration Met Three Impairment Transfers Short Term Goal (STG) Pt to transfer independently from mat<->w/c with no assistive devices STG Duration Met Two Impairment Ankle weakness Mine Safety Engineer Goal (LTG) Pt to display 2/5 MMT in R DF, 4/5 MMT in R PF, and 4+/5 MMT in all other bilateral ankle movements LTG Duration 09/19/18 - Improving One Impairment Activity tolerance Mine Safety Engineer Goal (LTG) Pt to tolerate activity up to 15 minutes without a break LTG Duration 09/19/18 - Improving Assessment Summary Assessment Pt continues to improve hands- free ambulation, will focus next week on walking outside of the // bars. Physical Therapy Plan Frequency and Duration Frequency of Treatment 2x/Week Duration of Treatment 3 months Plan of Care Start Date 06/21/18 Plan of Care End Date 09/19/18 Therapeutic Interventions Therapeutic Interventions Aquatic Therapy Balance Training Gait Training Home Exercise Program Manual Therapy Neuromuscular Re-education Soft Tissue Mobilization Therapeutic Activities Therapeutic Exercises Next Visit Focus/Plan Next Note Type Treatment Note Next Visit Plan Continue current POC
--- NOTE | 2018-08-30 12:13 | PT.OTN ---
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 greater than 24 hours with return to pre-existing conscious level, subsequent encounter (08/30/18) History of falling (08/30/18) Physical Therapy Treatment Note PT-OP-A Visit Information Start: 09/28/17 15:21 Freq: Status: Active Protocol: Document 08/30/18 09:45 DCW (Rec: 08/30/18 12:13 DCW [id number]) Out-Patient Physical Therapy Visit Information Visit Information Visit Type Treatment Note Visit Start Time 09:45 Visit Stop Time 10:30 Total Visit Minutes 45 Visit Number 87 Number of FOLDED TOWEL MACHINE OPERATOR Visits 0 Evaluation Information Evaluation Date 07/27/17 PT-OP-B Current Condition Start: 09/28/17 15:21 Freq: Status: Active Protocol: Document 10/12/17 13:45 DCW (Rec: 10/12/17 18:33 DCW [id number]) Current Condition History of Current Condition Onset Date 02/05/17 History of Current Condition See Pt's initial evaluation in Therapy Source Current Functional Impairments (Reported) Functional Limitations- Mobility/Gait Transfers:W/C<->Mat Stand- pivot: Independent PT-OP-C Subjective Start: 09/28/17 15:21 Freq: Status: Active Protocol: Document 08/30/18 09:45 DCW (Rec: 08/30/18 12:13 DCW [id number]) OP-PT Subjective Patient Comments Patient Comments Pt reports his hip has been doing well, notes that it still hurts a little when I first wake up, but then it stops, and it doesn't start back up again. PT-OP-D Balance Start: 10/12/17 18:11 Freq: Status: Active Protocol: Document 03/28/18 09:45 DCW (Rec: 03/28/18 10:29 DCW [id number]) OP-PT Balance Assessment Standing Balance Standing Balance Comments Double leg, Eyes open: 1 Donis Balance Assessment Evaluation Sitting to Standing Ability Independent w/Hands Unsupported Stance 30 seconds Sitting Unsupported, Feet on Floor Safely- 2 minutes Standing to Sitting Ability Assist, Control w/Hands Transfer Ability Safely, Hand Use Unsupported Stance- Eyes Closed Supervision, 10 seconds Unsupported Stance- Eyes Open Independent, <30 seconds Reaching Forward Standing Safely, 5 inches Pick- Up Object From Floor Supervision Look Behind Shoulder - Standing Supervision w/Turning Turning 360 Degrees Requires Assistance Unsupported Stance, Alternating Feet on Assist to Prevent Fall Stair Unsupported Tandem Stance Assist to Step-15 seconds Unilateral Leg Stance Unable,assist to not fall Total Score Donis Total Score (out of 56 points) 28 Donis Impairment Rating 40 to 59% Impaired (Score 23- 33) Mejia Fall Scale Copyright Permission Roberto JM, Roberto RM, Mark SJ. Development of a scale to identify the fall- prone patient. Can J Aging 1989;8;366-7. Catrachita Mejia (2009). Preventing patient falls. (2nd ed). [place]: [place]. PT-OP-E Functional Tests Start: 10/12/17 18:11 Freq: Status: Active Protocol: Document 03/28/18 09:45 DCW (Rec: 03/28/18 10:29 DCW [id number]) Functional Tests 6 Minute Walk Test Distance 870' Device Used 4WW PT-OP-M Strength Start: 10/12/17 18:11 Freq: Status: Active Protocol: Document 03/28/18 09:45 DCW (Rec: 03/28/18 10:29 DCW [id number]) Hip Strength Hip Manual Muscle Testing Right Flexion (L2) 5 Normal Abduction 5 Normal Adduction 5 Normal Left Flexion (L2) 4+ Good+ Abduction 5 Normal Adduction 5 Normal Knee Strength Knee Manual Muscle Testing Right Flexion (S2) 5 Normal Extension (L3) 5 Normal Left Flexion (S2) 4+ Good+ Extension (L3) 5 Normal Ankle/Foot Strength Ankle and Foot Manual Muscle Testing Right Dorsiflexion (L4) 2- Poor- Plantarflexion (S1) 3+ Fair+ Left Dorsiflexion (L4) 4+ Good+ Plantarflexion (S1) 5 Normal PT-OP-Q Treatments Start: 09/28/17 15:21 Freq: Status: Active Protocol: Document 08/30/18 09:45 DCW (Rec: 08/30/18 12:13 DCW [id number]) Therapeutic Exercises Sitting Exercises Marching Sitting Exercise Name Seated marching /c opposite arm swing Side bilateral Resistance 5# Equipment Used Ankle weights Other Exercises 1 Other Exercise Name Resisted Side-stepping Side bilateral Resistance Green Equipment Used T-band Gait Training Gait Activity 3 Device Used 4WW Level of Assistance SBA Distance/Duration 1020' Treatment Focus Increased gait distance/ tolerance 2 Description Ambulation /s AD Level of Assistance CGA Treatment Focus Focus on increased step length , continous movement, arm swing Comments Pt ambulated entire 10' length of // bars with no UE support x10 (took 9-14 steps). PT-OP-T Assessment and Plan Start: 09/28/17 15:21 Freq: Status: Active Protocol: Document 08/30/18 09:45 DCW (Rec: 08/30/18 12:13 DCW [id number]) Physical Therapy Assessment Impairments Impairments Activity Tolerance Balance Functional Activities Functional Mobility Gait ROM Strength Goals Seven Impairment Donis Short Term Goal (STG) Pt to score 22/56 on Donis Balance scale STG Duration Met Tree Cutter Goal (LTG) Pt to score 35/56 on Donis Balance scale LTG Duration 07/22/18 Six Impairment Static Standing Balance Tree Cutter Goal (LTG) Pt to stand independently for 2 minutes LTG Duration 08/19/18 Five Impairment 6 MWT Halfway Goal (LTG) Pt to ambulate 1000' without rest using 4WW during 6 MWT LTG Duration 09/19/18 - Improving Four Impairment Foot slap Short Term Goal (STG) Pt to regularly wear R AFO to limit foot drop and help normalize gait pattern STG Duration Met Three Impairment Transfers Short Term Goal (STG) Pt to transfer independently from mat<->w/c with no assistive devices STG Duration Met Two Impairment Ankle weakness Tree Cutter Goal (LTG) Pt to display 2/5 MMT in R DF, 4/5 MMT in R PF, and 4+/5 MMT in all other bilateral ankle movements LTG Duration 09/19/18 - Improving One Impairment Activity tolerance Tree Cutter Goal (LTG) Pt to tolerate activity up to 15 minutes without a break LTG Duration 09/19/18 - Improving Assessment Summary Assessment Pt ambulated for the greatest distance /s an AD so far, and then on top of that, was able to ambulate more than 1000' using his 4WW. Pt able to benefit from focus on arm swing creating improved balance and sequencing. Physical Therapy Plan Frequency and Duration Frequency of Treatment 2x/Week Duration of Treatment 3 months Plan of Care Start Date 06/21/18 Plan of Care End Date 09/19/18 Therapeutic Interventions Therapeutic Interventions Aquatic Therapy Balance Training Gait Training Home Exercise Program Manual Therapy Neuromuscular Re-education Soft Tissue Mobilization Therapeutic Activities Therapeutic Exercises Next Visit Focus/Plan Next Note Type Treatment Note Next Visit Plan Continue focus on opposing arm swing during gait, increasing activity tolerance, and improving balance
--- NOTE | 2018-09-02 10:43 | PT.OTN ---
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 with return to pre-existing conscious level, subsequent encounter (09/02/18) History of falling (09/02/18) Physical Therapy Treatment Note PT-OP-A Visit Information Start: 09/28/17 15:21 Freq: Status: Active Protocol: Document 09/02/18 09:45 DCW (Rec: 09/02/18 10:43 DCW [id number]) Out-Patient Physical Therapy Visit Information Visit Information Visit Type Treatment Note Visit Start Time 09:45 Visit Stop Time 10:30 Total Visit Minutes 45 Visit Number 88 Number of MANDARIN CHINESE TEACHER Visits 0 Evaluation Information Evaluation Date 07/27/17 PT-OP-B Current Condition Start: 09/28/17 15:21 Freq: Status: Active Protocol: Document 10/12/17 13:45 DCW (Rec: 10/12/17 18:33 DCW [id number]) Current Condition History of Current Condition Onset Date 02/05/17 History of Current Condition See Pt's initial evaluation in Therapy Source Current Functional Impairments (Reported) Functional Limitations- Mobility/Gait Transfers:W/C<->Mat Stand- pivot: Independent PT-OP-C Subjective Start: 09/28/17 15:21 Freq: Status: Active Protocol: Document 09/02/18 09:45 DCW (Rec: 09/02/18 10:43 DCW [id number]) OP-PT Subjective Patient Comments Patient Comments Pt reports he is doing well today. PT-OP-D Balance Start: 10/12/17 18:11 Freq: Status: Active Protocol: Document 03/28/18 09:45 DCW (Rec: 03/28/18 10:29 DCW [id number]) OP-PT Balance Assessment Standing Balance Standing Balance Comments Double leg, Eyes open: Donis Balance Assessment Evaluation Sitting to Standing Ability Independent w/Hands Unsupported Stance 30 seconds Sitting Unsupported, Feet on Floor Safely- 2 minutes Standing to Sitting Ability Assist, Control w/Hands Transfer Ability Safely, Hand Use Unsupported Stance- Eyes Closed Supervision, 10 seconds Unsupported Stance- Eyes Open Independent, <30 seconds Reaching Forward Standing Safely, 5 inches Pick- Up Object From Floor Supervision Look Behind Shoulder - Standing Supervision w/Turning Turning 360 Degrees Requires Assistance Unsupported Stance, Alternating Feet on Assist to Prevent Fall Stair Unsupported Tandem Stance Assist to Step-15 seconds Unilateral Leg Stance Unable,assist to not fall Total Score Donis Total Score (out of 56 points) 28 Donis Impairment Rating 40 to 59% Impaired (Score 23- 33) Roberto Fall Scale Copyright Permission Roberto JM, Roberto RM, Mark SJ. Development of a scale to identify the fall- prone patient. Can J Aging 1989;8;366-7. Catrachita Mejia (2009). Preventing patient falls. (2nd ed). [place]: Marquis. PT-OP-E Functional Tests Start: 10/12/17 18:11 Freq: Status: Active Protocol: Document 03/28/18 09:45 DCW (Rec: 03/28/18 10:29 DCW [id number]) Functional Tests 6 Minute Walk Test Distance 870' Device Used 4WW PT-OP-M Strength Start: 10/12/17 18:11 Freq: Status: Active Protocol: Document 03/28/18 09:45 DCW (Rec: 03/28/18 10:29 DCW [id number]) Hip Strength Hip Manual Muscle Testing Right Flexion (L2) 5 Normal Abduction 5 Normal Adduction 5 Normal Left Flexion (L2) 4+ Good+ Abduction 5 Normal Adduction 5 Normal Knee Strength Knee Manual Muscle Testing Right Flexion (S2) 5 Normal Extension (L3) 5 Normal Left Flexion (S2) 4+ Good+ Extension (L3) 5 Normal Ankle/Foot Strength Ankle and Foot Manual Muscle Testing Right Dorsiflexion (L4) 2- Poor- Plantarflexion (S1) 3+ Fair+ Left Dorsiflexion (L4) 4+ Good+ Plantarflexion (S1) 5 Normal PT-OP-Q Treatments Start: 09/28/17 15:21 Freq: Status: Active Protocol: Document 09/02/18 09:45 DCW (Rec: 09/02/18 10:43 DCW [id number]) Gym Equipment Shuttle Balance 1 Details Blue - Wide WILIAN Therapeutic Exercises Sitting Exercises Marching Sitting Exercise Name Seated marching /c opposite arm swing Side bilateral Resistance 5# Equipment Used Ankle weights Other Exercises 1 Other Exercise Name Resisted Side-stepping Side bilateral Resistance Green Equipment Used T-band Gait Training Gait Activity 2 Description Ambulation /s AD Level of Assistance CGA Distance/Duration 30' x1, 36' x1, 40' x1 Treatment Focus Focus on increased step length , continous movement, arm swing Comments Pt ambulated around gym and avoided obstacles. PT-OP-T Assessment and Plan Start: 09/28/17 15:21 Freq: Status: Active Protocol: Document 09/02/18 09:45 DCW (Rec: 09/02/18 10:43 DCW [id number]) Physical Therapy Assessment Impairments Impairments Activity Tolerance Balance Functional Activities Functional Mobility Gait ROM Strength Goals Seven Impairment Donis Short Term Goal (STG) Pt to score 22/56 on Donis Balance scale STG Duration Met Wine Consultant Goal (LTG) Pt to score 35/56 on Donis Balance scale LTG Duration 07/22/18 Six Impairment Static Standing Balance Wine Consultant Goal (LTG) Pt to stand independently for 2 minutes LTG Duration 08/19/18 Five Impairment 6 MWT Longterm Goal (LTG) Pt to ambulate 1000' without rest using 4WW during 6 MWT LTG Duration 09/19/18 - Improving Four Impairment Foot slap Short Term Goal (STG) Pt to regularly wear R AFO to limit foot drop and help normalize gait pattern STG Duration Met Three Impairment Transfers Short Term Goal (STG) Pt to transfer independently from mat<->w/c with no assistive devices STG Duration Met Two Impairment Ankle weakness Wine Consultant Goal (LTG) Pt to display 2/5 MMT in R DF, 4/5 MMT in R PF, and 4+/5 MMT in all other bilateral ankle movements LTG Duration 09/19/18 - Improving One Impairment Activity tolerance Longterm Goal (LTG) Pt to tolerate activity up to 15 minutes without a break LTG Duration 09/19/18 - Improving Assessment Summary Assessment Pt able to ambulate a total of 100' over three reps in the gym without an assistive device, which is a very large jump in function. Pt very happy with progress during todays session. Physical Therapy Plan Frequency and Duration Frequency of Treatment 2x/Week Duration of Treatment 3 months Plan of Care Start Date 06/21/18 Plan of Care End Date 09/19/18 Therapeutic Interventions Therapeutic Interventions Aquatic Therapy Balance Training Gait Training Home Exercise Program Manual Therapy Neuromuscular Re-education Soft Tissue Mobilization Therapeutic Activities Therapeutic Exercises Next Visit Focus/Plan Next Note Type Treatment Note Next Visit Plan Continue focus on opposing arm swing during gait, increasing activity tolerance, and improving balance
--- NOTE | 2018-09-21 12:46 | PT.OTN ---
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 with return to pre-existing conscious level, subsequent encounter (09/21/18) History of falling (09/21/18) Physical Therapy Treatment Note PT-OP-A Visit Information Start: 09/28/17 15:21 Freq: Status: Active Protocol: Document 09/21/18 11:15 DCW (Rec: 09/21/18 12:46 DCW [id number]) Out-Patient Physical Therapy Visit Information Visit Information Visit Type Progress Note Visit Note Total visit #89 Visit Start Time 11:15 Visit Stop Time 12:00 Total Visit Minutes 45 Visit Number 06/09 Number of SOLAR ENERGY ADVISOR Visits 0 Evaluation Information Evaluation Date 07/27/17 PT-OP-B Current Condition Start: 09/28/17 15:21 Freq: Status: Active Protocol: Document 10/12/17 13:45 DCW (Rec: 10/12/17 18:33 DCW [id number]) Current Condition History of Current Condition Onset Date 02/05/17 History of Current Condition See Pt's initial evaluation in Therapy Source Current Functional Impairments (Reported) Functional Limitations- Mobility/Gait Transfers:W/C<->Mat Stand- pivot: Independent PT-OP-C Subjective Start: 09/28/17 15:21 Freq: Status: Active Protocol: Document 09/21/18 11:15 DCW (Rec: 09/21/18 12:46 DCW [id number]) OP-PT Subjective Patient Comments Patient Comments Pt arrives for therapy today following a two-week layoff due to scheduling conflicts. Pt reports he feels like I'm doing well today, but I'm never sure. PT-OP-D Balance Start: 10/12/17 18:11 Freq: Status: Active Protocol: Document 09/21/18 11:15 DCW (Rec: 09/21/18 11:58 DCW [id number]) OP-PT Balance Assessment Standing Balance Standing Balance Comments Double leg, Eyes open: 2'02 Donis Balance Assessment Evaluation Sitting to Standing Ability Independent w/Hands Unsupported Stance Supervision- 2 minutes Sitting Unsupported, Feet on Floor Safely- 2 minutes Standing to Sitting Ability Assist, Control w/Hands Transfer Ability Safely, Hand Use Unsupported Stance- Eyes Closed Safely, With Eyes Open Unsupported Stance- Eyes Open Supervision to maintain Reaching Forward Standing Safely, 5 inches Pick- Up Object From Floor Supervision Look Behind Shoulder - Standing Turns Sideways Only Turning 360 Degrees Requires Assistance Unsupported Stance, Alternating Feet on 2 Steps w/Minimum Assist Stair Unsupported Tandem Stance Small Step- 30 seconds Unilateral Leg Stance Lifts Leg/Unable to Hold Total Score Donis Total Score (out of 56 points) 32 Donis Impairment Rating 40 to 59% Impaired (Score 23- 33) Mejia Fall Scale Copyright Permission Roberto KELLY, Roberto RM, Mark SJ. Development of a scale to identify the fall- prone patient. Can J Aging 1989;8;366-7. Catrachita Mejia (2009). Preventing patient falls. (2nd ed). [place]: Marquis. PT-OP-E Functional Tests Start: 10/12/17 18:11 Freq: Status: Active Protocol: Document 09/21/18 11:15 DCW (Rec: 09/21/18 11:58 DCW [id number]) Functional Tests 6 Minute Walk Test Distance 902' Device Used 4WW PT-OP-M Strength Start: 10/12/17 18:11 Freq: Status: Active Protocol: Document 09/21/18 11:15 DCW (Rec: 09/21/18 11:58 DCW [id number]) Hip Strength Hip Manual Muscle Testing Right Flexion (L2) 5 Normal Abduction 5 Normal Adduction 5 Normal Left Flexion (L2) 4+ Good+ Abduction 5 Normal Adduction 5 Normal Knee Strength Knee Manual Muscle Testing Right Flexion (S2) 5 Normal Extension (L3) 5 Normal Left Flexion (S2) 4+ Good+ Extension (L3) 5 Normal Ankle/Foot Strength Ankle and Foot Manual Muscle Testing Right Dorsiflexion (L4) 2- Poor- Plantarflexion (S1) 3+ Fair+ Left Dorsiflexion (L4) 4+ Good+ Plantarflexion (S1) 5 Normal PT-OP-Q Treatments Start: 09/28/17 15:21 Freq: Status: Active Protocol: Document 09/21/18 11:15 DCW (Rec: 09/21/18 12:46 DCW [id number]) Gait Training Gait Activity 1 Description 6 MWT Device Used 4WW Distance/Duration 902' Neuro Re-Education Treatment Other Activities 1 Details Standing balance testing, Donis balance test PT-OP-T Assessment and Plan Start: 09/28/17 15:21 Freq: Status: Active Protocol: Document 09/21/18 11:15 DCW (Rec: 09/21/18 12:46 DCW [id number]) Physical Therapy Assessment Impairments Impairments Activity Tolerance Balance Functional Activities Functional Mobility Gait ROM Strength Goals Eight Impairment Unassisted Gait Retirement Goal (LTG) Pt to ambulate 100' SBA /s AD LTG Duration 10/21/18 Seven Impairment Donis Short Term Goal (STG) Pt to score 22/56 on Donis Balance scale STG Duration Met Retirement Goal (LTG) Pt to score 35/56 on Donis Balance scale LTG Duration 12/21/18 Six Impairment Static Standing Balance Short Term Goal (STG) Pt to stand independently for 2 minutes STG Duration Met Coal Unloader Goal (LTG) Pt to stand independently for 3 minutes LTG Duration 12/21/18 Five Impairment 6 MWT Coal Unloader Goal (LTG) Pt to ambulate 1000' without rest using 4WW during 6 MWT (09/21/18: 902') LTG Duration 12/21/18 - Improving Four Impairment Foot slap Short Term Goal (STG) Pt to regularly wear R AFO to limit foot drop and help normalize gait pattern STG Duration Met Three Impairment Transfers Short Term Goal (STG) Pt to transfer independently from mat<->w/c with no assistive devices STG Duration Met Two Impairment Ankle weakness Coal Unloader Goal (LTG) Pt to display 2/5 MMT in R DF, 4/5 MMT in R PF, and 4+/5 MMT in all other bilateral ankle movements LTG Duration 12/21/18 - Improving One Impairment Activity tolerance Coal Unloader Goal (LTG) Pt to tolerate activity up to 15 minutes without a break LTG Duration 12/21/18 - Improving Assessment Summary Assessment Pt making progress in all areas since last assessment, with a Donis score improving from 28/56 to 32/56, increasing his 6 MWT by 30'+, and improving his standing balance tolerance more than 30 seconds. Pt as additionally recently started to ambulate without an assistive device, which will receive an increased focus over the course of his new plan of care . Physical Therapy Plan Frequency and Duration Frequency of Treatment 2x/Week Duration of Treatment 3 months Plan of Care Start Date 09/21/18 Plan of Care End Date 12/21/18 Therapeutic Interventions Therapeutic Interventions Aquatic Therapy Balance Training Gait Training Home Exercise Program Manual Therapy Neuromuscular Re-education Soft Tissue Mobilization Therapeutic Activities Therapeutic Exercises Next Visit Focus/Plan Next Note Type Treatment Note Next Visit Plan Continue focus on opposing arm swing during gait, increasing activity tolerance, increasing gait /s an AD, and improving balance
--- NOTE | 2018-09-21 12:46 | PT.OPPOC ---
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 with return to pre-existing conscious level, subsequent encounter (09/21/18) History of falling (09/21/18) Provider Visit Care Team Role Provider Type Elver Eubanks MD Attending Provider Physician Family Provider Primary Care Provider Specialty: Internal Medicine Address: [address] [place] [address], [facility] Email: Plan Of Care PT-OP-T Assessment and Plan Start: 09/28/17 15:21 Freq: Status: Active Protocol: Document 09/21/18 11:15 DCW (Rec: 09/21/18 12:46 DCW [id number]) Physical Therapy Assessment Impairments Impairments Activity Tolerance Balance Functional Activities Functional Mobility Gait ROM Strength Goals Eight Impairment Unassisted Gait Longterm Goal (LTG) Pt to ambulate 100' SBA /s AD LTG Duration 10/21/18 Seven Impairment Donis Short Term Goal (STG) Pt to score 22/56 on Donis Balance scale STG Duration Met Longterm Goal (LTG) Pt to score 35/56 on Donis Balance scale LTG Duration 12/21/18 Six Impairment Static Standing Balance Short Term Goal (STG) Pt to stand independently for 2 minutes STG Duration Met Will Call Clerk Goal (LTG) Pt to stand independently for 3 minutes LTG Duration 12/21/18 Five Impairment 6 MWT Longterm Goal (LTG) Pt to ambulate 1000' without rest using 4WW during 6 MWT (09/21/18: 902') LTG Duration 12/21/18 - Improving Four Impairment Foot slap Short Term Goal (STG) Pt to regularly wear R AFO to limit foot drop and help normalize gait pattern STG Duration Met Three Impairment Transfers Short Term Goal (STG) Pt to transfer independently from mat<->w/c with no assistive devices STG Duration Met Two Impairment Ankle weakness Longterm Goal (LTG) Pt to display 2/5 MMT in R DF, 4/5 MMT in R PF, and 4+/5 MMT in all other bilateral ankle movements LTG Duration 12/21/18 - Improving One Impairment Activity tolerance Will Call Clerk Goal (LTG) Pt to tolerate activity up to 15 minutes without a break LTG Duration 12/21/18 - Improving Assessment Summary Assessment Pt making progress in all areas since last assessment, with a Donis score improving from 28/56 to 32/56, increasing his 6 MWT by 30'+, and improving his standing balance tolerance more than 30 seconds. Pt as additionally recently started to ambulate without an assistive device, which will receive an increased focus over the course of his new plan of care . Physical Therapy Plan Frequency and Duration Frequency of Treatment 2x/Week Duration of Treatment 3 months Plan of Care Start Date 09/21/18 Plan of Care End Date 12/21/18 Therapeutic Interventions Therapeutic Interventions Aquatic Therapy Balance Training Gait Training Home Exercise Program Manual Therapy Neuromuscular Re-education Soft Tissue Mobilization Therapeutic Activities Therapeutic Exercises Next Visit Focus/Plan Next Note Type Treatment Note Next Visit Plan Continue focus on opposing arm swing during gait, increasing activity tolerance, increasing gait /s an AD, and improving balance Plan of Care Dates Plan of Care Start Date 09/21/18 Plan of Care End Date 12/21/18 Please Sign and Return: I have reviewed this Plan of Care and certify that the skilled therapy services above are required to meet the patient?s needs. Physician Signature Date Printed Name and Credentials Clinical Instructor Signature Printed Name and Credentials
--- NOTE | 2018-09-27 13:42 | PT.OTN ---
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 hours with return to pre-existing conscious level, subsequent encounter (09/27/18) History of falling (09/27/18) Physical Therapy Treatment Note PT-OP-A Visit Information Start: 09/28/17 15:21 Freq: Status: Active Protocol: Document 09/27/18 12:00 DCW (Rec: 09/27/18 13:42 DCW [id number]) Out-Patient Physical Therapy Visit Information Visit Information Visit Type Treatment Note Visit Start Time 12:00 Visit Stop Time 12:45 Total Visit Minutes 45 Visit Number 2/ Number of EXHIBITIONS AND COLLECTIONS MANAGER Visits 0 Evaluation Information Evaluation Date 07/27/17 PT-OP-B Current Condition Start: 09/28/17 15:21 Freq: Status: Active Protocol: Document 10/12/17 13:45 DCW (Rec: 10/12/17 18:33 DCW [id number]) Current Condition History of Current Condition Onset Date 02/05/17 History of Current Condition See Pt's initial evaluation in Therapy Source Current Functional Impairments (Reported) Functional Limitations- Mobility/Gait Transfers:W/C<->Mat Stand- pivot: Independent PT-OP-C Subjective Start: 09/28/17 15:21 Freq: Status: Active Protocol: Document 09/27/18 12:00 DCW (Rec: 09/27/18 13:42 DCW [id number]) OP-PT Subjective Patient Comments Patient Comments Pt reports that he fels dizzy walking in today, but is feeling better now. PT-OP-D Balance Start: 10/12/17 18:11 Freq: Status: Active Protocol: Document 09/21/18 11:15 DCW (Rec: 09/21/18 11:58 DCW [id number]) OP-PT Balance Assessment Standing Balance Standing Balance Comments Double leg, Eyes open: 2'02 Donis Balance Assessment Evaluation Sitting to Standing Ability Independent w/Hands Unsupported Stance Supervision- 2 minutes Sitting Unsupported, Feet on Floor Safely- 2 minutes Standing to Sitting Ability Assist, Control w/Hands Transfer Ability Safely, Hand Use Unsupported Stance- Eyes Closed Safely, With Eyes Open Unsupported Stance- Eyes Open Supervision to maintain Reaching Forward Standing Safely, 5 inches Pick- Up Object From Floor Supervision Look Behind Shoulder - Standing Turns Sideways Only Turning 360 Degrees Requires Assistance Unsupported Stance, Alternating Feet on 2 Steps w/Minimum Assist Stair Unsupported Tandem Stance Small Step- 30 seconds Unilateral Leg Stance Lifts Leg/Unable to Hold Total Score Donis Total Score (out of 56 points) 32 Donis Impairment Rating 40 to 59% Impaired (Score 23- 33) Roberto Fall Scale Copyright Permission Roberto KELYL, Roberto RM, Mark SJ. Development of a scale to identify the fall- prone patient. Can J Aging 1989;8;366-7. Catrachita Mejia (2009). Preventing patient falls. (2nd ed). [place]: Marquis. PT-OP-E Functional Tests Start: 10/12/17 18:11 Freq: Status: Active Protocol: Document 09/21/18 11:15 DCW (Rec: 09/21/18 11:58 DCW [id number]) Functional Tests 6 Minute Walk Test Distance 902' Device Used 4WW PT-OP-M Strength Start: 10/12/17 18:11 Freq: Status: Active Protocol: Document 09/21/18 11:15 DCW (Rec: 09/21/18 11:58 DCW [id number]) Hip Strength Hip Manual Muscle Testing Right Flexion (L2) 5 Normal Abduction 5 Normal Adduction 5 Normal Left Flexion (L2) 4+ Good+ Abduction 5 Normal Adduction 5 Normal Knee Strength Knee Manual Muscle Testing Right Flexion (S2) 5 Normal Extension (L3) 5 Normal Left Flexion (S2) 4+ Good+ Extension (L3) 5 Normal Ankle/Foot Strength Ankle and Foot Manual Muscle Testing Right Dorsiflexion (L4) 2- Poor- Plantarflexion (S1) 3+ Fair+ Left Dorsiflexion (L4) 4+ Good+ Plantarflexion (S1) 5 Normal PT-OP-Q Treatments Start: 09/28/17 15:21 Freq: Status: Active Protocol: Document 09/27/18 12:00 DCW (Rec: 09/27/18 13:42 DCW [id number]) Gym Equipment Shuttle Recovery Unilateral Squats Resistance 100# Shuttle Recovery Platform Stable Reps/Time x20 Bilateral Squats Resistance 187# Shuttle Recovery Platform Stable Reps/Time x30 Shuttle Balance 1 Details Blue - Wide WILIAN Therapeutic Exercises Sitting Exercises Marching Sitting Exercise Name Seated marching /c opposite arm swing Side bilateral Resistance 5# Equipment Used Ankle weights Gait Training Gait Activity 2 Description Ambulation /s AD Level of Assistance CGA Distance/Duration 10' x1, 30' x1, 40' x1, 25' x1 Treatment Focus Focus on increased step length , continous movement, arm swing Comments Pt ambulated around gym and avoided obstacles. PT-OP-T Assessment and Plan Start: 09/28/17 15:21 Freq: Status: Active Protocol: Document 09/27/18 12:00 DCW (Rec: 09/27/18 13:42 DCW [id number]) Physical Therapy Assessment Impairments Impairments Activity Tolerance Balance Functional Activities Functional Mobility Gait ROM Strength Goals Eight Impairment Unassisted Gait Glass Unloading Equipment Tender Goal (LTG) Pt to ambulate 100' SBA /s AD LTG Duration 10/21/18 Seven Impairment Donis Short Term Goal (STG) Pt to score 22/56 on Donis Balance scale STG Duration Met Group Home Goal (LTG) Pt to score 35/56 on Donis Balance scale LTG Duration 12/21/18 Six Impairment Static Standing Balance Short Term Goal (STG) Pt to stand independently for 2 minutes STG Duration Met Glass Unloading Equipment Tender Goal (LTG) Pt to stand independently for 3 minutes LTG Duration 12/21/18 Five Impairment 6 MWT Glass Unloading Equipment Tender Goal (LTG) Pt to ambulate 1000' without rest using 4WW during 6 MWT (09/21/18: 902') LTG Duration 12/21/18 - Improving Four Impairment Foot slap Short Term Goal (STG) Pt to regularly wear R AFO to limit foot drop and help normalize gait pattern STG Duration Met Three Impairment Transfers Short Term Goal (STG) Pt to transfer independently from mat<->w/c with no assistive devices STG Duration Met Two Impairment Ankle weakness Glass Unloading Equipment Tender Goal (LTG) Pt to display 2/5 MMT in R DF, 4/5 MMT in R PF, and 4+/5 MMT in all other bilateral ankle movements LTG Duration 12/21/18 - Improving One Impairment Activity tolerance Glass Unloading Equipment Tender Goal (LTG) Pt to tolerate activity up to 15 minutes without a break LTG Duration 12/21/18 - Improving Assessment Summary Assessment Pt was very discouraged about his performance today, due to his decline in hands-free ambulation distance, however pt did do very well with all other activities. Physical Therapy Plan Frequency and Duration Frequency of Treatment 2x/Week Duration of Treatment 3 months Plan of Care Start Date 09/21/18 Plan of Care End Date 12/21/18 Therapeutic Interventions Therapeutic Interventions Aquatic Therapy Balance Training Gait Training Home Exercise Program Manual Therapy Neuromuscular Re-education Soft Tissue Mobilization Therapeutic Activities Therapeutic Exercises Next Visit Focus/Plan Next Note Type Treatment Note Next Visit Plan Continue focus on opposing arm swing during gait, increasing activity tolerance, increasing gait /s an AD, and improving balance
--- NOTE | 2018-09-29 11:16 | PT.OTN ---
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 with return to pre-existing conscious level, subsequent encounter (09/29/18) History of falling (09/29/18) Physical Therapy Treatment Note PT-OP-A Visit Information Start: 09/28/17 15:21 Freq: Status: Active Protocol: Document 09/29/18 09:45 DCW (Rec: 09/29/18 11:16 DCW [id number]) Out-Patient Physical Therapy Visit Information Visit Information Visit Type Treatment Note Visit Start Time 09:45 Visit Stop Time 10:30 Total Visit Minutes 45 Visit Number 08/07 Number of COMPUTER NUMERIC CONTROL SETTER Visits 0 Evaluation Information Evaluation Date 07/27/17 PT-OP-B Current Condition Start: 09/28/17 15:21 Freq: Status: Active Protocol: Document 10/12/17 13:45 DCW (Rec: 10/12/17 18:33 DCW [id number]) Current Condition History of Current Condition Onset Date 02/05/17 History of Current Condition See Pt's initial evaluation in Therapy Source Current Functional Impairments (Reported) Functional Limitations- Mobility/Gait Transfers:W/C<->Mat Stand- pivot: Independent PT-OP-C Subjective Start: 09/28/17 15:21 Freq: Status: Active Protocol: Document 09/29/18 09:45 DCW (Rec: 09/29/18 11:16 DCW [id number]) OP-PT Subjective Patient Comments Patient Comments Pt reports he has had a rough week, but is feeling better about it today. PT-OP-D Balance Start: 10/12/17 18:11 Freq: Status: Active Protocol: Document 09/21/18 11:15 DCW (Rec: 09/21/18 11:58 DCW [id number]) OP-PT Balance Assessment Standing Balance Standing Balance Comments Double leg, Eyes open: 2'02 Donis Balance Assessment Evaluation Sitting to Standing Ability Independent w/Hands Unsupported Stance Supervision- 2 minutes Sitting Unsupported, Feet on Floor Safely- 2 minutes Standing to Sitting Ability Assist, Control w/Hands Transfer Ability Safely, Hand Use Unsupported Stance- Eyes Closed Safely, With Eyes Open Unsupported Stance- Eyes Open Supervision to maintain Reaching Forward Standing Safely, 5 inches Pick- Up Object From Floor Supervision Look Behind Shoulder - Standing Turns Sideways Only Turning 360 Degrees Requires Assistance Unsupported Stance, Alternating Feet on 2 Steps w/Minimum Assist Stair Unsupported Tandem Stance Small Step- 30 seconds Unilateral Leg Stance Lifts Leg/Unable to Hold Total Score Donis Total Score (out of 56 points) 32 Donis Impairment Rating 40 to 59% Impaired (Score 23- 33) Roberot Fall Scale Copyright Permission Roberto KELLY, Roberto RM, Mark SJ. Development of a scale to identify the fall- prone patient. Can J Aging 1989;8;366-7. Catrachita Mejia (2009). Preventing patient falls. (2nd ed). [place]: Marquis. PT-OP-E Functional Tests Start: 10/12/17 18:11 Freq: Status: Active Protocol: Document 09/21/18 11:15 DCW (Rec: 09/21/18 11:58 DCW [id number]) Functional Tests 6 Minute Walk Test Distance 902' Device Used 4WW PT-OP-M Strength Start: 10/12/17 18:11 Freq: Status: Active Protocol: Document 09/21/18 11:15 DCW (Rec: 09/21/18 11:58 DCW [id number]) Hip Strength Hip Manual Muscle Testing Right Flexion (L2) 5 Normal Abduction 5 Normal Adduction 5 Normal Left Flexion (L2) 4+ Good+ Abduction 5 Normal Adduction 5 Normal Knee Strength Knee Manual Muscle Testing Right Flexion (S2) 5 Normal Extension (L3) 5 Normal Left Flexion (S2) 4+ Good+ Extension (L3) 5 Normal Ankle/Foot Strength Ankle and Foot Manual Muscle Testing Right Dorsiflexion (L4) 2- Poor- Plantarflexion (S1) 3+ Fair+ Left Dorsiflexion (L4) 4+ Good+ Plantarflexion (S1) 5 Normal PT-OP-Q Treatments Start: 09/28/17 15:21 Freq: Status: Active Protocol: Document 09/29/18 09:45 DCW (Rec: 09/29/18 11:16 DCW [id number]) Therapeutic Exercises Sitting Exercises Marching Sitting Exercise Name Seated marching /c opposite arm swing Side bilateral Resistance 5# ankles, 4# wrists Standing Exercises Hip Abduction Standing Exercise Name Abduction Side bilateral Resistance Lv 3 Equipment Used T-band Hip Extension Standing Exercise Name Extension Side bilateral Resistance Lv 3 Equipment Used T-band 1 Standing Exercise Name Step-ups Equipment Used 6 step Gait Training Gait Activity 3 Device Used 4WW Level of Assistance SBA Distance/Duration 510' Treatment Focus Increased gait distance/ tolerance 2 Description Ambulation /s AD Level of Assistance CGA Distance/Duration 58' x1, 48' x1 Treatment Focus Focus on increased step length , continous movement, arm swing Comments Pt ambulated around gym and avoided obstacles. PT-OP-T Assessment and Plan Start: 09/28/17 15:21 Freq: Status: Active Protocol: Document 09/29/18 09:45 DCW (Rec: 09/29/18 11:16 DCW [id number]) Physical Therapy Assessment Impairments Impairments Activity Tolerance Balance Functional Activities Functional Mobility Gait ROM Strength Goals Eight Impairment Unassisted Gait Residential Goal (LTG) Pt to ambulate 100' SBA /s AD LTG Duration 10/21/18 Seven Impairment Donis Short Term Goal (STG) Pt to score 22/56 on Donis Balance scale STG Duration Met Group Leader [employer] Testing Goal (LTG) Pt to score 35/56 on Donis Balance scale LTG Duration 12/21/18 Six Impairment Static Standing Balance Short Term Goal (STG) Pt to stand independently for 2 minutes STG Duration Met Residential Goal (LTG) Pt to stand independently for 3 minutes LTG Duration 12/21/18 Five Impairment 6 MWT Residential Goal (LTG) Pt to ambulate 1000' without rest using 4WW during 6 MWT (09/21/18: 902') LTG Duration 12/21/18 - Improving Four Impairment Foot slap Short Term Goal (STG) Pt to regularly wear R AFO to limit foot drop and help normalize gait pattern STG Duration Met Three Impairment Transfers Short Term Goal (STG) Pt to transfer independently from mat<->w/c with no assistive devices STG Duration Met Two Impairment Ankle weakness Group Leader [employer] Testing Goal (LTG) Pt to display 2/5 MMT in R DF, 4/5 MMT in R PF, and 4+/5 MMT in all other bilateral ankle movements LTG Duration 12/21/18 - Improving One Impairment Activity tolerance Group Leader [employer] Testing Goal (LTG) Pt to tolerate activity up to 15 minutes without a break LTG Duration 12/21/18 - Improving Assessment Summary Assessment Pt did very well today, ambulating further without assistive device (58') than he had before. Pt also performed well with new activities. Physical Therapy Plan Frequency and Duration Frequency of Treatment 2x/Week Duration of Treatment 3 months Plan of Care Start Date 09/21/18 Plan of Care End Date 12/21/18 Therapeutic Interventions Therapeutic Interventions Aquatic Therapy Balance Training Gait Training Home Exercise Program Manual Therapy Neuromuscular Re-education Soft Tissue Mobilization Therapeutic Activities Therapeutic Exercises Next Visit Focus/Plan Next Note Type Treatment Note Next Visit Plan Continue focus on opposing arm swing during gait, increasing activity tolerance, increasing gait /s an AD, and improving balance
--- NOTE | 2018-10-04 10:26 | PT.OTN ---
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 greater than 24 hours with return to pre-existing conscious level, subsequent encounter (10/04/18) History of falling (10/04/18) Physical Therapy Treatment Note PT-OP-A Visit Information Start: 09/28/17 15:21 Freq: Status: Active Protocol: Document 10/04/18 09:45 DCW (Rec: 10/04/18 10:26 DCW [id number]) Out-Patient Physical Therapy Visit Information Visit Information Visit Type Treatment Note Visit Start Time 09:45 Visit Stop Time 10:30 Total Visit Minutes 45 Visit Number 4 Number of PLUGGER WORKER Visits 0 Evaluation Information Evaluation Date 07/27/17 PT-OP-B Current Condition Start: 09/28/17 15:21 Freq: Status: Active Protocol: Document 10/12/17 13:45 DCW (Rec: 10/12/17 18:33 DCW [id number]) Current Condition History of Current Condition Onset Date 02/05/17 History of Current Condition See Pt's initial evaluation in Therapy Source Current Functional Impairments (Reported) Functional Limitations- Mobility/Gait Transfers:W/C<->Mat Stand- pivot: Independent PT-OP-C Subjective Start: 09/28/17 15:21 Freq: Status: Active Protocol: Document 10/04/18 09:45 DCW (Rec: 10/04/18 10:26 DCW [id number]) OP-PT Subjective Patient Comments Patient Comments Pt feels good today, but I never really know. PT-OP-D Balance Start: 10/12/17 18:11 Freq: Status: Active Protocol: Document 09/21/18 11:15 DCW (Rec: 09/21/18 11:58 DCW [id number]) OP-PT Balance Assessment Standing Balance Standing Balance Comments Double leg, Eyes open: 2'02 Donis Balance Assessment Evaluation Sitting to Standing Ability Independent w/Hands Unsupported Stance Supervision- 2 minutes Sitting Unsupported, Feet on Floor Safely- 2 minutes Standing to Sitting Ability Assist, Control w/Hands Transfer Ability Safely, Hand Use Unsupported Stance- Eyes Closed Safely, With Eyes Open Unsupported Stance- Eyes Open Supervision to maintain Reaching Forward Standing Safely, 5 inches Pick- Up Object From Floor Supervision Look Behind Shoulder - Standing Turns Sideways Only Turning 360 Degrees Requires Assistance Unsupported Stance, Alternating Feet on 2 Steps w/Minimum Assist Stair Unsupported Tandem Stance Small Step- 30 seconds Unilateral Leg Stance Lifts Leg/Unable to Hold Total Score Donis Total Score (out of 56 points) 32 Donis Impairment Rating 40 to 59% Impaired (Score 23- 33) Roberto Fall Scale Copyright Permission Roberto JM, Roberto RM, Mark SJ. Development of a scale to identify the fall- prone patient. Can J Aging 1989;8;366-7. Catrachita Mejia (2009). Preventing patient falls. (2nd ed). [place]: Marquis. PT-OP-E Functional Tests Start: 10/12/17 18:11 Freq: Status: Active Protocol: Document 09/21/18 11:15 DCW (Rec: 09/21/18 11:58 DCW [id number]) Functional Tests 6 Minute Walk Test Distance 902' Device Used 4WW PT-OP-M Strength Start: 10/12/17 18:11 Freq: Status: Active Protocol: Document 09/21/18 11:15 DCW (Rec: 09/21/18 11:58 DCW [id number]) Hip Strength Hip Manual Muscle Testing Right Flexion (L2) 5 Normal Abduction 5 Normal Adduction 5 Normal Left Flexion (L2) 4+ Good+ Abduction 5 Normal Adduction 5 Normal Knee Strength Knee Manual Muscle Testing Right Flexion (S2) 5 Normal Extension (L3) 5 Normal Left Flexion (S2) 4+ Good+ Extension (L3) 5 Normal Ankle/Foot Strength Ankle and Foot Manual Muscle Testing Right Dorsiflexion (L4) 2- Poor- Plantarflexion (S1) 3+ Fair+ Left Dorsiflexion (L4) 4+ Good+ Plantarflexion (S1) 5 Normal PT-OP-Q Treatments Start: 09/28/17 15:21 Freq: Status: Active Protocol: Document 10/04/18 09:45 DCW (Rec: 10/04/18 10:26 DCW [id number]) Gym Equipment Shuttle Balance 1 Details Blue - Wide WILIAN Therapeutic Exercises Other Exercises 1 Other Exercise Name Resisted Side-stepping Side bilateral Resistance Blue Equipment Used T-band Gait Training Gait Activity 3 Device Used 4WW Level of Assistance SBA Distance/Duration 760' Treatment Focus Increased gait distance/ tolerance 2 Description Ambulation /s AD Level of Assistance CGA Distance/Duration 60' x1, 44' x1 Treatment Focus Focus on increased step length , continous movement, arm swing Comments Pt ambulated around gym and avoided obstacles. Manual Therapy Treatment Soft Tissue Mobilization Piriformis Body Location L piriformis Mobilization Type Strumming Sustained Pressure Intensity/Depth Deep Body Position Sidelying PT-OP-T Assessment and Plan Start: 09/28/17 15:21 Freq: Status: Active Protocol: Document 10/04/18 09:45 DCW (Rec: 10/04/18 10:26 DCW [id number]) Physical Therapy Assessment Impairments Impairments Activity Tolerance Balance Functional Activities Functional Mobility Gait ROM Strength Goals Eight Impairment Unassisted Gait Assisted Goal (LTG) Pt to ambulate 100' SBA /s AD LTG Duration 10/21/18 Seven Impairment Donis Short Term Goal (STG) Pt to score 22/56 on Donis Balance scale STG Duration Met Assisted Goal (LTG) Pt to score 35/56 on Donis Balance scale LTG Duration 12/21/18 Six Impairment Static Standing Balance Short Term Goal (STG) Pt to stand independently for 2 minutes STG Duration Met Chief Nursing Officer Goal (LTG) Pt to stand independently for 3 minutes LTG Duration 12/21/18 Five Impairment 6 MWT Assisted Goal (LTG) Pt to ambulate 1000' without rest using 4WW during 6 MWT (09/21/18: 902') LTG Duration 12/21/18 - Improving Four Impairment Foot slap Short Term Goal (STG) Pt to regularly wear R AFO to limit foot drop and help normalize gait pattern STG Duration Met Three Impairment Transfers Short Term Goal (STG) Pt to transfer independently from mat<->w/c with no assistive devices STG Duration Met Two Impairment Ankle weakness Chief Nursing Officer Goal (LTG) Pt to display 2/5 MMT in R DF, 4/5 MMT in R PF, and 4+/5 MMT in all other bilateral ankle movements LTG Duration 12/21/18 - Improving One Impairment Activity tolerance Assisted Goal (LTG) Pt to tolerate activity up to 15 minutes without a break LTG Duration 12/21/18 - Improving Assessment Summary Assessment Pt able to walk his farthest distance without an AD today, and followed it up with more than 700' ambulating with his 4WW. Physical Therapy Plan Frequency and Duration Frequency of Treatment 2x/Week Duration of Treatment 3 months Plan of Care Start Date 09/21/18 Plan of Care End Date 12/21/18 Therapeutic Interventions Therapeutic Interventions Aquatic Therapy Balance Training Gait Training Home Exercise Program Manual Therapy Neuromuscular Re-education Soft Tissue Mobilization Therapeutic Activities Therapeutic Exercises Next Visit Focus/Plan Next Note Type Treatment Note Next Visit Plan Continue focus on opposing arm swing during gait, increasing activity tolerance, increasing gait /s an AD, and improving balance
--- NOTE | 2018-10-07 10:27 | PT.OTN ---
Current Diagnoses Foot drop, right foot (10/07/18) Muscle weakness (generalized) (10/07/18) Unsteadiness on feet (10/07/18) Unspecified abnormalities of gait and mobility (10/07/18) Traumatic subdural hemorrhage with loss of consciousness greater than 24 hours with return to pre-existing conscious level, subsequent encounter (10/07/18) History of falling (10/07/18) Physical Therapy Treatment Note PT-OP-A Visit Information Start: 09/28/17 15:21 Freq: Status: Active Protocol: Document 10/07/18 09:45 DCW (Rec: 10/07/18 10:27 DCW [id number]) Out-Patient Physical Therapy Visit Information Visit Information Visit Type Treatment Note Visit Start Time 09:45 Visit Stop Time 10:30 Total Visit Minutes 45 Visit Number 10/07 Number of CAMERA PROTOTYPING ENGINEER Visits 0 Evaluation Information Evaluation Date 07/27/17 PT-OP-B Current Condition Start: 09/28/17 15:21 Freq: Status: Active Protocol: Document 10/12/17 13:45 DCW (Rec: 10/12/17 18:33 DCW [id number]) Current Condition History of Current Condition Onset Date 02/05/17 History of Current Condition See Pt's initial evaluation in Therapy Source Current Functional Impairments (Reported) Functional Limitations- Mobility/Gait Transfers:W/C<->Mat Stand- pivot: Independent PT-OP-C Subjective Start: 09/28/17 15:21 Freq: Status: Active Protocol: Document 10/07/18 09:45 DCW (Rec: 10/07/18 10:27 DCW [id number]) OP-PT Subjective Patient Comments Patient Comments Pt reports he feels good and rested today. PT-OP-D Balance Start: 10/12/17 18:11 Freq: Status: Active Protocol: Document 09/21/18 11:15 DCW (Rec: 09/21/18 11:58 DCW [id number]) OP-PT Balance Assessment Standing Balance Standing Balance Comments Double leg, Eyes open: 2'02 Donis Balance Assessment Evaluation Sitting to Standing Ability Independent w/Hands Unsupported Stance Supervision- 2 minutes Sitting Unsupported, Feet on Floor Safely- 2 minutes Standing to Sitting Ability Assist, Control w/Hands Transfer Ability Safely, Hand Use Unsupported Stance- Eyes Closed Safely, With Eyes Open Unsupported Stance- Eyes Open Supervision to maintain Reaching Forward Standing Safely, 5 inches Pick- Up Object From Floor Supervision Look Behind Shoulder - Standing Turns Sideways Only Turning 360 Degrees Requires Assistance Unsupported Stance, Alternating Feet on 2 Steps w/Minimum Assist Stair Unsupported Tandem Stance Small Step- 30 seconds Unilateral Leg Stance Lifts Leg/Unable to Hold Total Score Donis Total Score (out of 56 points) 32 Donis Impairment Rating 40 to 59% Impaired (Score 23- 33) Roberto Fall Scale Copyright Permission Roberto JM, Roberto RM, Mark SJ. Development of a scale to identify the fall- prone patient. Can J Aging 1989;8;366-7. Catrachita Mejia (2009). Preventing patient falls. (2nd ed). [place]: Marquis. PT-OP-E Functional Tests Start: 10/12/17 18:11 Freq: Status: Active Protocol: Document 09/21/18 11:15 DCW (Rec: 09/21/18 11:58 DCW [id number]) Functional Tests 6 Minute Walk Test Distance 902' Device Used 4WW PT-OP-M Strength Start: 10/12/17 18:11 Freq: Status: Active Protocol: Document 09/21/18 11:15 DCW (Rec: 09/21/18 11:58 DCW [id number]) Hip Strength Hip Manual Muscle Testing Right Flexion (L2) 5 Normal Abduction 5 Normal Adduction 5 Normal Left Flexion (L2) 4+ Good+ Abduction 5 Normal Adduction 5 Normal Knee Strength Knee Manual Muscle Testing Right Flexion (S2) 5 Normal Extension (L3) 5 Normal Left Flexion (S2) 4+ Good+ Extension (L3) 5 Normal Ankle/Foot Strength Ankle and Foot Manual Muscle Testing Right Dorsiflexion (L4) 2- Poor- Plantarflexion (S1) 3+ Fair+ Left Dorsiflexion (L4) 4+ Good+ Plantarflexion (S1) 5 Normal PT-OP-Q Treatments Start: 09/28/17 15:21 Freq: Status: Active Protocol: Document 10/07/18 09:45 DCW (Rec: 10/07/18 10:27 DCW [id number]) Gym Equipment Shuttle Recovery Bilateral Heel Raises Resistance 150# Shuttle Recovery Platform Stable Reps/Time x60 Unilateral Squats Resistance 100# Shuttle Recovery Platform Stable Reps/Time x20 Bilateral Squats Resistance 187# Shuttle Recovery Platform Stable Reps/Time x30 Gait Training Gait Activity 3 Device Used 4WW Level of Assistance SBA Distance/Duration 850' Treatment Focus Increased gait distance/ tolerance 2 Description Ambulation /s AD Level of Assistance CGA Distance/Duration 80' x1, 22' x1, 16' x1 Treatment Focus Focus on increased step length , continous movement, arm swing Comments Pt ambulated around gym and avoided obstacles. PT-OP-T Assessment and Plan Start: 09/28/17 15:21 Freq: Status: Active Protocol: Document 10/07/18 09:45 DCW (Rec: 10/07/18 10:27 DCW [id number]) Physical Therapy Assessment Impairments Impairments Activity Tolerance Balance Functional Activities Functional Mobility Gait ROM Strength Goals Eight Impairment Unassisted Gait Restorer [employer] Goal (LTG) Pt to ambulate 100' SBA /s AD LTG Duration 10/21/18 Seven Impairment Donis Short Term Goal (STG) Pt to score 22/56 on Donis Balance scale STG Duration Met Restorer [employer] Goal (LTG) Pt to score 35/56 on Donis Balance scale LTG Duration 12/21/18 Six Impairment Static Standing Balance Short Term Goal (STG) Pt to stand independently for 2 minutes STG Duration Met Restorer [employer] Goal (LTG) Pt to stand independently for 3 minutes LTG Duration 12/21/18 Five Impairment 6 MWT Retirement Goal (LTG) Pt to ambulate 1000' without rest using 4WW during 6 MWT (09/21/18: 902') LTG Duration 12/21/18 - Improving Four Impairment Foot slap Short Term Goal (STG) Pt to regularly wear R AFO to limit foot drop and help normalize gait pattern STG Duration Met Three Impairment Transfers Short Term Goal (STG) Pt to transfer independently from mat<->w/c with no assistive devices STG Duration Met Two Impairment Ankle weakness Retirement Goal (LTG) Pt to display 2/5 MMT in R DF, 4/5 MMT in R PF, and 4+/5 MMT in all other bilateral ankle movements LTG Duration 12/21/18 - Improving One Impairment Activity tolerance Restorer [employer] Goal (LTG) Pt to tolerate activity up to 15 minutes without a break LTG Duration 12/21/18 - Improving Assessment Summary Assessment Pt again able to walk his farthest distance without an AD today, and followed it up with more than 800' ambulating with his 4WW. Pt notes he never believed he would ever get to this level of function again, and so is thrilled with his current ability. Physical Therapy Plan Frequency and Duration Frequency of Treatment 2x/Week Duration of Treatment 3 months Plan of Care Start Date 09/21/18 Plan of Care End Date 12/21/18 Therapeutic Interventions Therapeutic Interventions Aquatic Therapy Balance Training Gait Training Home Exercise Program Manual Therapy Neuromuscular Re-education Soft Tissue Mobilization Therapeutic Activities Therapeutic Exercises Next Visit Focus/Plan Next Note Type Treatment Note Next Visit Plan Continue focus on opposing arm swing during gait, increasing activity tolerance, increasing gait /s an AD, and improving balance
--- NOTE | 2018-10-11 10:30 | PT.OTN ---
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 with return to pre-existing conscious level, subsequent encounter (10/11/18) History of falling (10/11/18) Physical Therapy Treatment Note PT-OP-A Visit Information Start: 09/28/17 15:21 Freq: Status: Active Protocol: Document 10/11/18 09:45 DCW (Rec: 10/11/18 10:30 DCW [id number]) Out-Patient Physical Therapy Visit Information Visit Information Visit Type Treatment Note Visit Start Time 09:45 Visit Stop Time 10:30 Total Visit Minutes 45 Visit Number 11/07 Number of CEO [employer]ER Visits 0 Evaluation Information Evaluation Date 07/27/17 PT-OP-B Current Condition Start: 09/28/17 15:21 Freq: Status: Active Protocol: Document 10/12/17 13:45 DCW (Rec: 10/12/17 18:33 DCW [id number]) Current Condition History of Current Condition Onset Date 02/05/17 History of Current Condition See Pt's initial evaluation in Therapy Source Current Functional Impairments (Reported) Functional Limitations- Mobility/Gait Transfers:W/C<->Mat Stand- pivot: Independent PT-OP-C Subjective Start: 09/28/17 15:21 Freq: Status: Active Protocol: Document 10/11/18 09:45 DCW (Rec: 10/11/18 10:30 DCW [id number]) OP-PT Subjective Patient Comments Patient Comments Pt reports his right foot is feeling a little more weak today. PT-OP-D Balance Start: 10/12/17 18:11 Freq: Status: Active Protocol: Document 09/21/18 11:15 DCW (Rec: 09/21/18 11:58 DCW [id number]) OP-PT Balance Assessment Standing Balance Standing Balance Comments Double leg, Eyes open: 2'02 Donis Balance Assessment Evaluation Sitting to Standing Ability Independent w/Hands Unsupported Stance Supervision- 2 minutes Sitting Unsupported, Feet on Floor Safely- 2 minutes Standing to Sitting Ability Assist, Control w/Hands Transfer Ability Safely, Hand Use Unsupported Stance- Eyes Closed Safely, With Eyes Open Unsupported Stance- Eyes Open Supervision to maintain Reaching Forward Standing Safely, 5 inches Pick- Up Object From Floor Supervision Look Behind Shoulder - Standing Turns Sideways Only Turning 360 Degrees Requires Assistance Unsupported Stance, Alternating Feet on 2 Steps w/Minimum Assist Stair Unsupported Tandem Stance Small Step- 30 seconds Unilateral Leg Stance Lifts Leg/Unable to Hold Total Score Donis Total Score (out of 56 points) 32 Donis Impairment Rating 40 to 59% Impaired (Score 23- 33) Roberto Fall Scale Copyright Permission Roberto JM, Roberto RM, Mark SJ. Development of a scale to identify the fall- prone patient. Can J Aging 1989;8;366-7. Catrachita Mejia (2009). Preventing patient falls. (2nd ed). [place]: Marquis. PT-OP-E Functional Tests Start: 10/12/17 18:11 Freq: Status: Active Protocol: Document 09/21/18 11:15 DCW (Rec: 09/21/18 11:58 DCW [id number]) Functional Tests 6 Minute Walk Test Distance 902' Device Used 4WW PT-OP-M Strength Start: 10/12/17 18:11 Freq: Status: Active Protocol: Document 09/21/18 11:15 DCW (Rec: 09/21/18 11:58 DCW [id number]) Hip Strength Hip Manual Muscle Testing Right Flexion (L2) 5 Normal Abduction 5 Normal Adduction 5 Normal Left Flexion (L2) 4+ Good+ Abduction 5 Normal Adduction 5 Normal Knee Strength Knee Manual Muscle Testing Right Flexion (S2) 5 Normal Extension (L3) 5 Normal Left Flexion (S2) 4+ Good+ Extension (L3) 5 Normal Ankle/Foot Strength Ankle and Foot Manual Muscle Testing Right Dorsiflexion (L4) 2- Poor- Plantarflexion (S1) 3+ Fair+ Left Dorsiflexion (L4) 4+ Good+ Plantarflexion (S1) 5 Normal PT-OP-Q Treatments Start: 09/28/17 15:21 Freq: Status: Active Protocol: Document 10/11/18 09:45 DCW (Rec: 10/11/18 10:30 DCW [id number]) Gym Equipment Shuttle Recovery Bilateral Heel Raises Resistance 150# Shuttle Recovery Platform Stable Reps/Time x60 Unilateral Squats Resistance 100# Shuttle Recovery Platform Stable Reps/Time x20 Bilateral Squats Resistance 187# Shuttle Recovery Platform Stable Reps/Time x30 Shuttle Balance 1 Details Blue - Wide WILIAN Gait Training Gait Activity 2 Description Ambulation /s AD Level of Assistance CGA Distance/Duration 90' x2 Treatment Focus Focus on increased step length , continous movement, arm swing Comments Pt ambulated around gym and avoided obstacles. PT-OP-T Assessment and Plan Start: 09/28/17 15:21 Freq: Status: Active Protocol: Document 10/11/18 09:45 DCW (Rec: 10/11/18 10:30 DCW [id number]) Physical Therapy Assessment Impairments Impairments Activity Tolerance Balance Functional Activities Functional Mobility Gait ROM Strength Goals Eight Impairment Unassisted Gait Steamer Blocker Goal (LTG) Pt to ambulate 100' SBA /s AD LTG Duration 10/21/18 Seven Impairment Donis Short Term Goal (STG) Pt to score 22/56 on Donis Balance scale STG Duration Met Correction Goal (LTG) Pt to score 35/56 on Donis Balance scale LTG Duration 12/21/18 Six Impairment Static Standing Balance Short Term Goal (STG) Pt to stand independently for 2 minutes STG Duration Met Steamer Blocker Goal (LTG) Pt to stand independently for 3 minutes LTG Duration 12/21/18 Five Impairment 6 MWT Correction Goal (LTG) Pt to ambulate 1000' without rest using 4WW during 6 MWT (09/21/18: 902') LTG Duration 12/21/18 - Improving Four Impairment Foot slap Short Term Goal (STG) Pt to regularly wear R AFO to limit foot drop and help normalize gait pattern STG Duration Met Three Impairment Transfers Short Term Goal (STG) Pt to transfer independently from mat<->w/c with no assistive devices STG Duration Met Two Impairment Ankle weakness Steamer Blocker Goal (LTG) Pt to display 2/5 MMT in R DF, 4/5 MMT in R PF, and 4+/5 MMT in all other bilateral ankle movements LTG Duration 12/21/18 - Improving One Impairment Activity tolerance Correction Goal (LTG) Pt to tolerate activity up to 15 minutes without a break LTG Duration 12/21/18 - Improving Assessment Summary Assessment Pt continues to increased tolerance/distance walking without an assistive device. Pt does have difficulty performing a full step with his right foot, and is still not able to coordinate arm swing while ambulating. Physical Therapy Plan Frequency and Duration Frequency of Treatment 2x/Week Duration of Treatment 3 months Plan of Care Start Date 09/21/18 Plan of Care End Date 12/21/18 Therapeutic Interventions Therapeutic Interventions Aquatic Therapy Balance Training Gait Training Home Exercise Program Manual Therapy Neuromuscular Re-education Soft Tissue Mobilization Therapeutic Activities Therapeutic Exercises Next Visit Focus/Plan Next Note Type Treatment Note Next Visit Plan Continue focus on opposing arm swing during gait, increasing activity tolerance, increasing gait /s an AD, and improving balance
--- NOTE | 2018-10-14 10:22 | PT.OTN ---
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 greater than 24 hours with return to pre-existing conscious level, subsequent encounter (10/14/18) History of falling (10/14/18) Physical Therapy Treatment Note PT-OP-A Visit Information Start: 09/28/17 15:21 Freq: Status: Active Protocol: Document 10/14/18 09:45 DCW (Rec: 10/14/18 10:22 DCW [id number]) Out-Patient Physical Therapy Visit Information Visit Information Visit Type Treatment Note Visit Start Time 09:45 Visit Stop Time 10:30 Total Visit Minutes 45 Visit Number 12/07 Number of MANAGER SEARCH ENGINE Visits 0 Evaluation Information Evaluation Date 07/27/17 PT-OP-B Current Condition Start: 09/28/17 15:21 Freq: Status: Active Protocol: Document 10/12/17 13:45 DCW (Rec: 10/12/17 18:33 DCW [id number]) Current Condition History of Current Condition Onset Date 02/05/17 History of Current Condition See Pt's initial evaluation in Therapy Source Current Functional Impairments (Reported) Functional Limitations- Mobility/Gait Transfers:W/C<->Mat Stand- pivot: Independent PT-OP-C Subjective Start: 09/28/17 15:21 Freq: Status: Active Protocol: Document 10/14/18 09:45 DCW (Rec: 10/14/18 10:22 DCW [id number]) OP-PT Subjective Patient Comments Patient Comments Pt notes he is doing well today, but is worried that he will soon have to discharge from physical therapy because he has been coming for such a long time. PT-OP-D Balance Start: 10/12/17 18:11 Freq: Status: Active Protocol: Document 09/21/18 11:15 DCW (Rec: 09/21/18 11:58 DCW [id number]) OP-PT Balance Assessment Standing Balance Standing Balance Comments Double leg, Eyes open: 2'02 Donis Balance Assessment Evaluation Sitting to Standing Ability Independent w/Hands Unsupported Stance Supervision- 2 minutes Sitting Unsupported, Feet on Floor Safely- 2 minutes Standing to Sitting Ability Assist, Control w/Hands Transfer Ability Safely, Hand Use Unsupported Stance- Eyes Closed Safely, With Eyes Open Unsupported Stance- Eyes Open Supervision to maintain Reaching Forward Standing Safely, 5 inches Pick- Up Object From Floor Supervision Look Behind Shoulder - Standing Turns Sideways Only Turning 360 Degrees Requires Assistance Unsupported Stance, Alternating Feet on 2 Steps w/Minimum Assist Stair Unsupported Tandem Stance Small Step- 30 seconds Unilateral Leg Stance Lifts Leg/Unable to Hold Total Score Donis Total Score (out of 56 points) 32 Donis Impairment Rating 40 to 59% Impaired (Score 23- 33) Mejia Fall Scale Copyright Permission Roberto JM, Roberto RM, Mark SJ. Development of a scale to identify the fall- prone patient. Can J Aging 1989;8;366-7. Catrachita Mejia (2009). Preventing patient falls. (2nd ed). [place]: Marquis. PT-OP-E Functional Tests Start: 10/12/17 18:11 Freq: Status: Active Protocol: Document 09/21/18 11:15 DCW (Rec: 09/21/18 11:58 DCW [id number]) Functional Tests 6 Minute Walk Test Distance 902' Device Used 4WW PT-OP-M Strength Start: 10/12/17 18:11 Freq: Status: Active Protocol: Document 09/21/18 11:15 DCW (Rec: 09/21/18 11:58 DCW [id number]) Hip Strength Hip Manual Muscle Testing Right Flexion (L2) 5 Normal Abduction 5 Normal Adduction 5 Normal Left Flexion (L2) 4+ Good+ Abduction 5 Normal Adduction 5 Normal Knee Strength Knee Manual Muscle Testing Right Flexion (S2) 5 Normal Extension (L3) 5 Normal Left Flexion (S2) 4+ Good+ Extension (L3) 5 Normal Ankle/Foot Strength Ankle and Foot Manual Muscle Testing Right Dorsiflexion (L4) 2- Poor- Plantarflexion (S1) 3+ Fair+ Left Dorsiflexion (L4) 4+ Good+ Plantarflexion (S1) 5 Normal PT-OP-Q Treatments Start: 09/28/17 15:21 Freq: Status: Active Protocol: Document 10/14/18 09:45 DCW (Rec: 10/14/18 10:22 DCW [id number]) Gym Equipment Shuttle Recovery Bilateral Heel Raises Resistance 150# Shuttle Recovery Platform Stable Reps/Time x60 Unilateral Squats Resistance 100# Shuttle Recovery Platform Stable Reps/Time x20 Bilateral Squats Resistance 187# Shuttle Recovery Platform Stable Reps/Time x30 Therapeutic Exercises Other Exercises 1 Other Exercise Name Resisted Side-stepping Side bilateral Resistance Blue Equipment Used T-band Gait Training Gait Activity 2 Description Ambulation /s AD Level of Assistance CGA Distance/Duration 110' x1 Treatment Focus Focus on increased step length , continous movement, arm swing Comments Pt ambulated around gym and avoided obstacles. Neuro Re-Education Treatment Balance Activities 6 Details Balloon Volleyball Comments Pt standing /s UE support, CGA ->Min Ax1 PT-OP-T Assessment and Plan Start: 09/28/17 15:21 Freq: Status: Active Protocol: Document 10/14/18 09:45 DCW (Rec: 10/14/18 10:22 DCW [id number]) Physical Therapy Assessment Impairments Impairments Activity Tolerance Balance Functional Activities Functional Mobility Gait ROM Strength Goals Eight Impairment Unassisted Gait Chcf Goal (LTG) Pt to ambulate 100' SBA /s AD LTG Duration 10/21/18 Seven Impairment Donis Short Term Goal (STG) Pt to score 22/56 on Donis Balance scale STG Duration Met Chcf Goal (LTG) Pt to score 35/56 on Donis Balance scale LTG Duration 12/21/18 Six Impairment Static Standing Balance Short Term Goal (STG) Pt to stand independently for 2 minutes STG Duration Met Kiln Cleaner Goal (LTG) Pt to stand independently for 3 minutes LTG Duration 12/21/18 Five Impairment 6 MWT Chcf Goal (LTG) Pt to ambulate 1000' without rest using 4WW during 6 MWT (09/21/18: 902') LTG Duration 12/21/18 - Improving Four Impairment Foot slap Short Term Goal (STG) Pt to regularly wear R AFO to limit foot drop and help normalize gait pattern STG Duration Met Three Impairment Transfers Short Term Goal (STG) Pt to transfer independently from mat<->w/c with no assistive devices STG Duration Met Two Impairment Ankle weakness Kiln Cleaner Goal (LTG) Pt to display 2/5 MMT in R DF, 4/5 MMT in R PF, and 4+/5 MMT in all other bilateral ankle movements LTG Duration 12/21/18 - Improving One Impairment Activity tolerance Chcf Goal (LTG) Pt to tolerate activity up to 15 minutes without a break LTG Duration 12/21/18 - Improving Assessment Summary Assessment Pt ambulated more than 100' without an assistive device for the first time today,and also did well standing independently playing [employer] volleyball, after initially requiring Min Ax1 to prevent retropulsion, pt was able to shift weight forward and stand CGA. Physical Therapy Plan Frequency and Duration Frequency of Treatment 2x/Week Duration of Treatment 3 months Plan of Care Start Date 09/21/18 Plan of Care End Date 12/21/18 Therapeutic Interventions Therapeutic Interventions Aquatic Therapy Balance Training Gait Training Home Exercise Program Manual Therapy Neuromuscular Re-education Soft Tissue Mobilization Therapeutic Activities Therapeutic Exercises Next Visit Focus/Plan Next Note Type Treatment Note Next Visit Plan Continue focus on opposing arm swing during gait, increasing activity tolerance, increasing gait /s an AD, and improving balance
--- NOTE | 2018-10-18 10:32 | PT.OTN ---
Current Diagnoses Foot drop, right foot (10/18/18) Muscle weakness (generalized) (10/18/18) Unsteadiness on feet (10/18/18) Unspecified abnormalities of gait and mobility (10/18/18) Traumatic subdural hemorrhage with loss of consciousness greater than 24 hours with return to pre-existing conscious level, subsequent encounter (10/18/18) History of falling (10/18/18) Physical Therapy Treatment Note PT-OP-A Visit Information Start: 09/28/17 15:21 Freq: Status: Active Protocol: Document 10/18/18 09:45 DCW (Rec: 10/18/18 10:32 DCW [id number]) Out-Patient Physical Therapy Visit Information Visit Information Visit Type Treatment Note Visit Start Time 09:45 Visit Stop Time 10:30 Total Visit Minutes 45 Visit Number 01/07 Number of SOIL FIELD TECHNICIAN Visits 0 Evaluation Information Evaluation Date 07/27/17 PT-OP-B Current Condition Start: 09/28/17 15:21 Freq: Status: Active Protocol: Document 10/12/17 13:45 DCW (Rec: 10/12/17 18:33 DCW [id number]) Current Condition History of Current Condition Onset Date 02/05/17 History of Current Condition See Pt's initial evaluation in Therapy Source Current Functional Impairments (Reported) Functional Limitations- Mobility/Gait Transfers:W/C<->Mat Stand- pivot: Independent PT-OP-C Subjective Start: 09/28/17 15:21 Freq: Status: Active Protocol: Document 10/18/18 09:45 DCW (Rec: 10/18/18 10:32 DCW [id number]) OP-PT Subjective Patient Comments Patient Comments Pt reports he is feeling normal today. PT-OP-D Balance Start: 10/12/17 18:11 Freq: Status: Active Protocol: Document 09/21/18 11:15 DCW (Rec: 09/21/18 11:58 DCW [id number]) OP-PT Balance Assessment Standing Balance Standing Balance Comments Double leg, Eyes open: 2'02 Donis Balance Assessment Evaluation Sitting to Standing Ability Independent w/Hands Unsupported Stance Supervision- 2 minutes Sitting Unsupported, Feet on Floor Safely- 2 minutes Standing to Sitting Ability Assist, Control w/Hands Transfer Ability Safely, Hand Use Unsupported Stance- Eyes Closed Safely, With Eyes Open Unsupported Stance- Eyes Open Supervision to maintain Reaching Forward Standing Safely, 5 inches Pick- Up Object From Floor Supervision Look Behind Shoulder - Standing Turns Sideways Only Turning 360 Degrees Requires Assistance Unsupported Stance, Alternating Feet on 2 Steps w/Minimum Assist Stair Unsupported Tandem Stance Small Step- 30 seconds Unilateral Leg Stance Lifts Leg/Unable to Hold Total Score Donis Total Score (out of 56 points) 32 Donis Impairment Rating 40 to 59% Impaired (Score 23- 33) Mejia Fall Scale Copyright Permission Roberto JM, Roberto RM, Mark SJ. Development of a scale to identify the fall- prone patient. Can J Aging 1989;8;366-7. Catrachita Mejia (2009). Preventing patient falls. (2nd ed). [place]: Marquis. PT-OP-E Functional Tests Start: 10/12/17 18:11 Freq: Status: Active Protocol: Document 09/21/18 11:15 DCW (Rec: 09/21/18 11:58 DCW [id number]) Functional Tests 6 Minute Walk Test Distance 902' Device Used 4WW PT-OP-M Strength Start: 10/12/17 18:11 Freq: Status: Active Protocol: Document 09/21/18 11:15 DCW (Rec: 09/21/18 11:58 DCW [id number]) Hip Strength Hip Manual Muscle Testing Right Flexion (L2) 5 Normal Abduction 5 Normal Adduction 5 Normal Left Flexion (L2) 4+ Good+ Abduction 5 Normal Adduction 5 Normal Knee Strength Knee Manual Muscle Testing Right Flexion (S2) 5 Normal Extension (L3) 5 Normal Left Flexion (S2) 4+ Good+ Extension (L3) 5 Normal Ankle/Foot Strength Ankle and Foot Manual Muscle Testing Right Dorsiflexion (L4) 2- Poor- Plantarflexion (S1) 3+ Fair+ Left Dorsiflexion (L4) 4+ Good+ Plantarflexion (S1) 5 Normal PT-OP-Q Treatments Start: 09/28/17 15:21 Freq: Status: Active Protocol: Document 10/18/18 09:45 DCW (Rec: 10/18/18 10:32 DCW [id number]) Gym Equipment Shuttle Balance 1 Details Blue - Wide WILIAN Therapeutic Exercises Other Exercises 1 Other Exercise Name Resisted Side-stepping Side bilateral Resistance Blue Equipment Used T-band Gait Training Gait Activity 3 Device Used 4WW Level of Assistance SBA Distance/Duration 510' Treatment Focus Increased gait distance/ tolerance 2 Description Ambulation /s AD Level of Assistance CGA Distance/Duration 110' x1, 60' x1, 50' x1 Treatment Focus Focus on increased step length , continous movement, arm swing Comments Pt ambulated around gym and avoided obstacles. PT-OP-T Assessment and Plan Start: 09/28/17 15:21 Freq: Status: Active Protocol: Document 10/18/18 09:45 DCW (Rec: 10/18/18 10:32 DCW [id number]) Physical Therapy Assessment Impairments Impairments Activity Tolerance Balance Functional Activities Functional Mobility Gait ROM Strength Goals Eight Impairment Unassisted Gait Residential Goal (LTG) Pt to ambulate 100' SBA /s AD LTG Duration 10/21/18 Seven Impairment Donis Short Term Goal (STG) Pt to score 22/56 on Donis Balance scale STG Duration Met Residential Goal (LTG) Pt to score 35/56 on Donis Balance scale LTG Duration 12/21/18 Six Impairment Static Standing Balance Short Term Goal (STG) Pt to stand independently for 2 minutes STG Duration Met Residential Goal (LTG) Pt to stand independently for 3 minutes LTG Duration 12/21/18 Five Impairment 6 MWT Residential Goal (LTG) Pt to ambulate 1000' without rest using 4WW during 6 MWT (09/21/18: 902') LTG Duration 12/21/18 - Improving Four Impairment Foot slap Short Term Goal (STG) Pt to regularly wear R AFO to limit foot drop and help normalize gait pattern STG Duration Met Three Impairment Transfers Short Term Goal (STG) Pt to transfer independently from mat<->w/c with no assistive devices STG Duration Met Two Impairment Ankle weakness Student Truck Driver Goal (LTG) Pt to display 2/5 MMT in R DF, 4/5 MMT in R PF, and 4+/5 MMT in all other bilateral ankle movements LTG Duration 12/21/18 - Improving One Impairment Activity tolerance Residential Goal (LTG) Pt to tolerate activity up to 15 minutes without a break LTG Duration 12/21/18 - Improving Assessment Summary Assessment Pt continues to ambulate well /s AD, improved quality today at end of his 110' amb distance vs last week. Physical Therapy Plan Frequency and Duration Frequency of Treatment 2x/Week Duration of Treatment 3 months Plan of Care Start Date 09/21/18 Plan of Care End Date 12/21/18 Therapeutic Interventions Therapeutic Interventions Aquatic Therapy Balance Training Gait Training Home Exercise Program Manual Therapy Neuromuscular Re-education Soft Tissue Mobilization Therapeutic Activities Therapeutic Exercises Next Visit Focus/Plan Next Note Type Treatment Note Next Visit Plan Continue focus on opposing arm swing during gait, increasing activity tolerance, increasing gait /s an AD, and improving balance
--- NOTE | 2018-11-04 10:19 | PT.OTN ---
Current Diagnoses Foot drop, right foot (11/04/18) Muscle weakness (generalized) (11/04/18) Unsteadiness on feet (11/04/18) Unspecified abnormalities of gait and mobility (11/04/18) Traumatic subdural hemorrhage with loss of consciousness greater than 24 hours with return to pre-existing conscious level, subsequent encounter (11/04/18) History of falling (11/04/18) Physical Therapy Treatment Note PT-OP-A Visit Information Start: 09/28/17 15:21 Freq: Status: Active Protocol: Document 11/04/18 09:40 DCW (Rec: 11/04/18 10:18 DCW [id number]) Out-Patient Physical Therapy Visit Information Visit Information Visit Type Treatment Note Visit Start Time 09:40 Visit Stop Time 10:25 Total Visit Minutes 45 Visit Number 02/07 Number of MUD MIXER HELPER Visits 0 Evaluation Information Evaluation Date 07/27/17 PT-OP-B Current Condition Start: 09/28/17 15:21 Freq: Status: Active Protocol: Document 10/12/17 13:45 DCW (Rec: 10/12/17 18:33 DCW [id number]) Current Condition History of Current Condition Onset Date 02/05/17 History of Current Condition See Pt's initial evaluation in Therapy Source Current Functional Impairments (Reported) Functional Limitations- Mobility/Gait Transfers:W/C<->Mat Stand- pivot: Independent PT-OP-C Subjective Start: 09/28/17 15:21 Freq: Status: Active Protocol: Document 11/04/18 09:40 DCW (Rec: 11/04/18 10:18 DCW [id number]) OP-PT Subjective Patient Comments Patient Comments Pt's reports that he has had multiple surgeries on his legs to remove skin cancer, and therefore is not wearing his AFO, because it would rub on his incisions. PT-OP-D Balance Start: 10/12/17 18:11 Freq: Status: Active Protocol: Document 09/21/18 11:15 DCW (Rec: 09/21/18 11:58 DCW [id number]) OP-PT Balance Assessment Standing Balance Standing Balance Comments Double leg, Eyes open: 2'02 Donis Balance Assessment Evaluation Sitting to Standing Ability Independent w/Hands Unsupported Stance Supervision- 2 minutes Sitting Unsupported, Feet on Floor Safely- 2 minutes Standing to Sitting Ability Assist, Control w/Hands Transfer Ability Safely, Hand Use Unsupported Stance- Eyes Closed Safely, With Eyes Open Unsupported Stance- Eyes Open Supervision to maintain Reaching Forward Standing Safely, 5 inches Pick- Up Object From Floor Supervision Look Behind Shoulder - Standing Turns Sideways Only Turning 360 Degrees Requires Assistance Unsupported Stance, Alternating Feet on 2 Steps w/Minimum Assist Stair Unsupported Tandem Stance Small Step- 30 seconds Unilateral Leg Stance Lifts Leg/Unable to Hold Total Score Donis Total Score (out of 56 points) 32 Donis Impairment Rating 40 to 59% Impaired (Score 23- 33) Mejia Fall Scale Copyright Permission Roberto JM, Roberto RM, Mark SJ. Development of a scale to identify the fall- prone patient. Can J Aging 1989;8;366-7. Catrachita Mejia (2009). Preventing patient falls. (2nd ed). [place]: Marquis. PT-OP-E Functional Tests Start: 10/12/17 18:11 Freq: Status: Active Protocol: Document 09/21/18 11:15 DCW (Rec: 09/21/18 11:58 DCW [id number]) Functional Tests 6 Minute Walk Test Distance 902' Device Used 4WW PT-OP-M Strength Start: 10/12/17 18:11 Freq: Status: Active Protocol: Document 09/21/18 11:15 DCW (Rec: 09/21/18 11:58 DCW [id number]) Hip Strength Hip Manual Muscle Testing Right Flexion (L2) 5 Normal Abduction 5 Normal Adduction 5 Normal Left Flexion (L2) 4+ Good+ Abduction 5 Normal Adduction 5 Normal Knee Strength Knee Manual Muscle Testing Right Flexion (S2) 5 Normal Extension (L3) 5 Normal Left Flexion (S2) 4+ Good+ Extension (L3) 5 Normal Ankle/Foot Strength Ankle and Foot Manual Muscle Testing Right Dorsiflexion (L4) 2- Poor- Plantarflexion (S1) 3+ Fair+ Left Dorsiflexion (L4) 4+ Good+ Plantarflexion (S1) 5 Normal PT-OP-Q Treatments Start: 09/28/17 15:21 Freq: Status: Active Protocol: Document 11/04/18 09:40 DCW (Rec: 11/04/18 10:18 DCW [id number]) Gym Equipment Shuttle Recovery Bilateral Heel Raises Resistance 150# Shuttle Recovery Platform Stable Reps/Time x60 Unilateral Squats Resistance 100# Shuttle Recovery Platform Stable Reps/Time x20 Bilateral Squats Resistance 187# Shuttle Recovery Platform Stable Reps/Time x30 Shuttle Balance 1 Details Blue - Wide WILIAN Gait Training Gait Activity 3 Device Used 4WW Level of Assistance SBA Distance/Duration 1250' Treatment Focus Increased gait distance/ tolerance Neuro Re-Education Treatment Balance Activities 6 Details Balloon Volleyball Comments Pt standing /s UE support, CGA ->Min Ax1 PT-OP-T Assessment and Plan Start: 09/28/17 15:21 Freq: Status: Active Protocol: Document 11/04/18 09:40 DCW (Rec: 11/04/18 10:18 DCW [id number]) Physical Therapy Assessment Impairments Impairments Activity Tolerance Balance Functional Activities Functional Mobility Gait ROM Strength Goals Eight Impairment Unassisted Gait Skilled Nursing Goal (LTG) Pt to ambulate 100' SBA /s AD LTG Duration 10/21/18 Seven Impairment Donis Short Term Goal (STG) Pt to score 22/56 on Donis Balance scale STG Duration Met Skilled Nursing Goal (LTG) Pt to score 35/56 on Donis Balance scale LTG Duration 12/21/18 Six Impairment Static Standing Balance Short Term Goal (STG) Pt to stand independently for 2 minutes STG Duration Met Skilled Nursing Goal (LTG) Pt to stand independently for 3 minutes LTG Duration 12/21/18 Five Impairment 6 MWT Skilled Nursing Goal (LTG) Pt to ambulate 1000' without rest using 4WW during 6 MWT (09/21/18: 902') LTG Duration 12/21/18 - Improving Four Impairment Foot slap Short Term Goal (STG) Pt to regularly wear R AFO to limit foot drop and help normalize gait pattern STG Duration Met Three Impairment Transfers Short Term Goal (STG) Pt to transfer independently from mat<->w/c with no assistive devices STG Duration Met Two Impairment Ankle weakness Compliance Assistant Goal (LTG) Pt to display 2/5 MMT in R DF, 4/5 MMT in R PF, and 4+/5 MMT in all other bilateral ankle movements LTG Duration 12/21/18 - Improving One Impairment Activity tolerance Compliance Assistant Goal (LTG) Pt to tolerate activity up to 15 minutes without a break LTG Duration 12/21/18 - Improving Assessment Summary Assessment Ambulation without an AD was deferred today, due to pt not wearing his AFO, which would increase potential of pt catching his toe and tripping. PT did very well ambulating with his 4WW, and performed well on the Shuttle Balance. Physical Therapy Plan Frequency and Duration Frequency of Treatment 2x/Week Duration of Treatment 3 months Plan of Care Start Date 09/21/18 Plan of Care End Date 12/21/18 Therapeutic Interventions Therapeutic Interventions Aquatic Therapy Balance Training Gait Training Home Exercise Program Manual Therapy Neuromuscular Re-education Soft Tissue Mobilization Therapeutic Activities Therapeutic Exercises Next Visit Focus/Plan Next Note Type Progress Note Next Visit Plan Continue focus on opposing arm swing during gait, increasing activity tolerance, increasing gait /s an AD, and improving balance
--- NOTE | 2018-11-08 10:26 | PT.OTN ---
Current Diagnoses Foot drop, right foot (11/08/18) Muscle weakness (generalized) (11/08/18) Unsteadiness on feet (11/08/18) Unspecified abnormalities of gait and mobility (11/08/18) Traumatic subdural hemorrhage with loss of consciousness greater than 24 hours with return to pre-existing conscious level, subsequent encounter (11/08/18) History of falling (11/08/18) Physical Therapy Treatment Note PT-OP-A Visit Information Start: 09/28/17 15:21 Freq: Status: Active Protocol: Document 11/08/18 09:35 DCW (Rec: 11/08/18 10:25 DCW [id number]) Out-Patient Physical Therapy Visit Information Visit Information Visit Type Progress Note Visit Start Time 09:35 Visit Stop Time 10:20 Total Visit Minutes 45 Visit Number 03/09 Number of STAFFING DIRECTOR Visits 0 Evaluation Information Evaluation Date 07/27/17 PT-OP-B Current Condition Start: 09/28/17 15:21 Freq: Status: Active Protocol: Document 10/12/17 13:45 DCW (Rec: 10/12/17 18:33 DCW [id number]) Current Condition History of Current Condition Onset Date 02/05/17 History of Current Condition See Pt's initial evaluation in Therapy Source Current Functional Impairments (Reported) Functional Limitations- Mobility/Gait Transfers:W/C<->Mat Stand- pivot: Independent PT-OP-C Subjective Start: 09/28/17 15:21 Freq: Status: Active Protocol: Document 11/08/18 09:35 DCW (Rec: 11/08/18 10:25 DCW [id number]) OP-PT Subjective Patient Comments Patient Comments Pt reports that his back is a little sore today after working on his [employer] this weekend with his son. PT-OP-D Balance Start: 10/12/17 18:11 Freq: Status: Active Protocol: Document 09/21/18 11:15 DCW (Rec: 09/21/18 11:58 DCW [id number]) OP-PT Balance Assessment Standing Balance Standing Balance Comments Double leg, Eyes open: 2'02 Donis Balance Assessment Evaluation Sitting to Standing Ability Independent w/Hands Unsupported Stance Supervision- 2 minutes Sitting Unsupported, Feet on Floor Safely- 2 minutes Standing to Sitting Ability Assist, Control w/Hands Transfer Ability Safely, Hand Use Unsupported Stance- Eyes Closed Safely, With Eyes Open Unsupported Stance- Eyes Open Supervision to maintain Reaching Forward Standing Safely, 5 inches Pick- Up Object From Floor Supervision Look Behind Shoulder - Standing Turns Sideways Only Turning 360 Degrees Requires Assistance Unsupported Stance, Alternating Feet on 2 Steps w/Minimum Assist Stair Unsupported Tandem Stance Small Step- 30 seconds Unilateral Leg Stance Lifts Leg/Unable to Hold Total Score Donis Total Score (out of 56 points) 32 Donis Impairment Rating 40 to 59% Impaired (Score 23- 33) Mejia Fall Scale Copyright Permission Roberto KELLY, Roberto RM, Mark SJ. Development of a scale to identify the fall- prone patient. Can J Aging 1989;8;366-7. Catrachita Mejia (2009). Preventing patient falls. (2nd ed). [place]: Marquis. PT-OP-E Functional Tests Start: 10/12/17 18:11 Freq: Status: Active Protocol: Document 09/21/18 11:15 DCW (Rec: 09/21/18 11:58 DCW [id number]) Functional Tests 6 Minute Walk Test Distance 902' Device Used 4WW PT-OP-M Strength Start: 10/12/17 18:11 Freq: Status: Active Protocol: Document 09/21/18 11:15 DCW (Rec: 09/21/18 11:58 DCW [id number]) Hip Strength Hip Manual Muscle Testing Right Flexion (L2) 5 Normal Abduction 5 Normal Adduction 5 Normal Left Flexion (L2) 4+ Good+ Abduction 5 Normal Adduction 5 Normal Knee Strength Knee Manual Muscle Testing Right Flexion (S2) 5 Normal Extension (L3) 5 Normal Left Flexion (S2) 4+ Good+ Extension (L3) 5 Normal Ankle/Foot Strength Ankle and Foot Manual Muscle Testing Right Dorsiflexion (L4) 2- Poor- Plantarflexion (S1) 3+ Fair+ Left Dorsiflexion (L4) 4+ Good+ Plantarflexion (S1) 5 Normal PT-OP-Q Treatments Start: 09/28/17 15:21 Freq: Status: Active Protocol: Document 11/08/18 09:35 DCW (Rec: 11/08/18 10:25 DCW [id number]) Therapeutic Exercises Sitting Exercises LAQ Sitting Exercise Name LAQ Side bilateral Resistance 5# Equipment Used ankle weights Marching Sitting Exercise Name Seated marching /c opposite arm swing Side bilateral Resistance 5# ankles, 4# wrists Standing Exercises Hip Abduction Standing Exercise Name Abduction Side bilateral Resistance Green Equipment Used T-band Hip Extension Standing Exercise Name Extension Side bilateral Resistance Green Equipment Used T-band Hamstring curls Standing Exercise Name HS curls at rail Side bilateral Resistance 5# Equipment Used ankle weights Gait Training Gait Activity 2 Description Ambulation /s AD Level of Assistance CGA Distance/Duration 4 rest breaks while walking 190' total Treatment Focus Focus on increased step length , continous movement, arm swing Comments Pt ambulated around gym and avoided obstacles. PT-OP-T Assessment and Plan Start: 09/28/17 15:21 Freq: Status: Active Protocol: Document 11/08/18 09:35 DCW (Rec: 11/08/18 10:25 DCW [id number]) Physical Therapy Assessment Impairments Impairments Activity Tolerance Balance Functional Activities Functional Mobility Gait ROM Strength Goals Eight Impairment Unassisted Gait Elastic Assembler Goal (LTG) Pt to ambulate 100' SBA /s AD LTG Duration 10/21/18 Seven Impairment Donis Short Term Goal (STG) Pt to score 22/56 on Donis Balance scale STG Duration Met Intermediate Goal (LTG) Pt to score 35/56 on Donis Balance scale LTG Duration 12/21/18 Six Impairment Static Standing Balance Short Term Goal (STG) Pt to stand independently for 2 minutes STG Duration Met Elastic Assembler Goal (LTG) Pt to stand independently for 3 minutes LTG Duration 12/21/18 Five Impairment 6 MWT Intermediate Goal (LTG) Pt to ambulate 1000' without rest using 4WW during 6 MWT (09/21/18: 902') LTG Duration 12/21/18 - Improving Four Impairment Foot slap Short Term Goal (STG) Pt to regularly wear R AFO to limit foot drop and help normalize gait pattern STG Duration Met Three Impairment Transfers Short Term Goal (STG) Pt to transfer independently from mat<->w/c with no assistive devices STG Duration Met Two Impairment Ankle weakness Elastic Assembler Goal (LTG) Pt to display 2/5 MMT in R DF, 4/5 MMT in R PF, and 4+/5 MMT in all other bilateral ankle movements LTG Duration 12/21/18 - Improving One Impairment Activity tolerance Intermediate Goal (LTG) Pt to tolerate activity up to 15 minutes without a break LTG Duration 12/21/18 - Improving Assessment Summary Assessment Pt continues to make excellent progress overall, although due to tightness in his back, was not able to walk as far today without an assistive device prior to taking a seated rest break. Pt worried about getting kicked out of therapy, however with his medical necessity and current level of improvement, pt will likely qualify for continued therapy at this time. Physical Therapy Plan Frequency and Duration Frequency of Treatment 2x/Week Duration of Treatment 3 months Plan of Care Start Date 09/21/18 Plan of Care End Date 12/21/18 Therapeutic Interventions Therapeutic Interventions Aquatic Therapy Balance Training Gait Training Home Exercise Program Manual Therapy Neuromuscular Re-education Soft Tissue Mobilization Therapeutic Activities Therapeutic Exercises Next Visit Focus/Plan Next Note Type Progress Note Next Visit Plan Continue focus on opposing arm swing during gait, increasing activity tolerance, increasing gait /s an AD, and improving balance
--- NOTE | 2018-11-15 10:29 | PT.OTN ---
Current Diagnoses Foot drop, right foot (11/15/18) Muscle weakness (generalized) (11/15/18) Unsteadiness on feet (11/15/18) Unspecified abnormalities of gait and mobility (11/15/18) Traumatic subdural hemorrhage with loss of consciousness greater than 24 hours with return to pre-existing conscious level, subsequent encounter (11/15/18) History of falling (11/15/18) Physical Therapy Treatment Note PT-OP-A Visit Information Start: 09/28/17 15:21 Freq: Status: Active Protocol: Document 11/15/18 09:45 DCW (Rec: 11/15/18 10:29 DCW [id number]) Out-Patient Physical Therapy Visit Information Visit Information Visit Type Treatment Note Visit Start Time 09:45 Visit Stop Time 10:30 Total Visit Minutes 45 Visit Number 06/09 Number of BREWER HELPER Visits 0 Evaluation Information Evaluation Date 07/27/17 PT-OP-B Current Condition Start: 09/28/17 15:21 Freq: Status: Active Protocol: Document 10/12/17 13:45 DCW (Rec: 10/12/17 18:33 DCW [id number]) Current Condition History of Current Condition Onset Date 02/05/17 History of Current Condition See Pt's initial evaluation in Therapy Source Current Functional Impairments (Reported) Functional Limitations- Mobility/Gait Transfers:W/C<->Mat Stand- pivot: Independent PT-OP-C Subjective Start: 09/28/17 15:21 Freq: Status: Active Protocol: Document 11/15/18 09:45 DCW (Rec: 11/15/18 10:29 DCW [id number]) OP-PT Subjective Patient Comments Patient Comments Pt's back is still bothering him today, but overall feels better. PT-OP-D Balance Start: 10/12/17 18:11 Freq: Status: Active Protocol: Document 09/21/18 11:15 DCW (Rec: 09/21/18 11:58 DCW [id number]) OP-PT Balance Assessment Standing Balance Standing Balance Comments Double leg, Eyes open: 2'02 Donis Balance Assessment Evaluation Sitting to Standing Ability Independent w/Hands Unsupported Stance Supervision- 2 minutes Sitting Unsupported, Feet on Floor Safely- 2 minutes Standing to Sitting Ability Assist, Control w/Hands Transfer Ability Safely, Hand Use Unsupported Stance- Eyes Closed Safely, With Eyes Open Unsupported Stance- Eyes Open Supervision to maintain Reaching Forward Standing Safely, 5 inches Pick- Up Object From Floor Supervision Look Behind Shoulder - Standing Turns Sideways Only Turning 360 Degrees Requires Assistance Unsupported Stance, Alternating Feet on 2 Steps w/Minimum Assist Stair Unsupported Tandem Stance Small Step- 30 seconds Unilateral Leg Stance Lifts Leg/Unable to Hold Total Score Donis Total Score (out of 56 points) 32 Donis Impairment Rating 40 to 59% Impaired (Score 23- 33) Mejia Fall Scale Copyright Permission PT-OP-E Functional Tests Start: 10/12/17 18:11 Freq: Status: Active Protocol: Document 09/21/18 11:15 DCW (Rec: 09/21/18 11:58 DCW [id number]) Functional Tests 6 Minute Walk Test Distance 902' Device Used 4WW PT-OP-M Strength Start: 10/12/17 18:11 Freq: Status: Active Protocol: Document 09/21/18 11:15 DCW (Rec: 09/21/18 11:58 DCW [id number]) Hip Strength Hip Manual Muscle Testing Right Flexion (L2) 5 Normal Abduction 5 Normal Adduction 5 Normal Left Flexion (L2) 4+ Good+ Abduction 5 Normal Adduction 5 Normal Knee Strength Knee Manual Muscle Testing Right Flexion (S2) 5 Normal Extension (L3) 5 Normal Left Flexion (S2) 4+ Good+ Extension (L3) 5 Normal Ankle/Foot Strength Ankle and Foot Manual Muscle Testing Right Dorsiflexion (L4) 2- Poor- Plantarflexion (S1) 3+ Fair+ Left Dorsiflexion (L4) 4+ Good+ Plantarflexion (S1) 5 Normal PT-OP-Q Treatments Start: 09/28/17 15:21 Freq: Status: Active Protocol: Document 11/15/18 09:45 DCW (Rec: 11/15/18 10:29 DCW [id number]) Gym Equipment Shuttle Balance 1 Details Blue - Wide WILIAN Therapeutic Exercises Standing Exercises Hip Abduction Standing Exercise Name Abduction Side bilateral Resistance Green Equipment Used T-band Hip Extension Standing Exercise Name Extension Side bilateral Resistance Green Equipment Used T-band Hamstring curls Standing Exercise Name HS curls at rail Side bilateral Resistance 5# Equipment Used ankle weights Standing Marching Standing Exercise Name Marching at rail Side bilateral Resistance 5# Equipment Used ankle weights Gait Training Gait Activity 2 Description Ambulation /s AD Level of Assistance CGA Distance/Duration 115'x1, 60'x1, 30'x1 Treatment Focus Focus on increased step length , continous movement, arm swing Comments Pt ambulated around gym and avoided obstacles. PT-OP-T Assessment and Plan Start: 09/28/17 15:21 Freq: Status: Active Protocol: Document 11/15/18 09:45 DCW (Rec: 11/15/18 10:29 DCW [id number]) Physical Therapy Assessment Impairments Impairments Activity Tolerance Balance Functional Activities Functional Mobility Gait ROM Strength Goals Eight Impairment Unassisted Gait Vice President [employer] Goal (LTG) Pt to ambulate 100' SBA /s AD LTG Duration 10/21/18 Seven Impairment Donis Short Term Goal (STG) Pt to score 22/56 on Donis Balance scale STG Duration Met Vice [employer] Goal (LTG) Pt to score 35/56 on Donis Balance scale LTG Duration 12/21/18 Six Impairment Static Standing Balance Short Term Goal (STG) Pt to stand independently for 2 minutes STG Duration Met Shelter Goal (LTG) Pt to stand independently for 3 minutes LTG Duration 12/21/18 Five Impairment 6 MWT Shelter Goal (LTG) Pt to ambulate 1000' without rest using 4WW during 6 MWT (09/21/18: 902') LTG Duration 12/21/18 - Improving Four Impairment Foot slap Short Term Goal (STG) Pt to regularly wear R AFO to limit foot drop and help normalize gait pattern STG Duration Met Three Impairment Transfers Short Term Goal (STG) Pt to transfer independently from mat<->w/c with no assistive devices STG Duration Met Two Impairment Ankle weakness Shelter Goal (LTG) Pt to display 2/5 MMT in R DF, 4/5 MMT in R PF, and 4+/5 MMT in all other bilateral ankle movements LTG Duration 12/21/18 - Improving One Impairment Activity tolerance Vice [employer] Goal (LTG) Pt to tolerate activity up to 15 minutes without a break LTG Duration 12/21/18 - Improving Assessment Summary Assessment Pt ambulated slightly further than he has been before, and is demonstrating an increased tolerance to standing on the Shuttle Balance Physical Therapy Plan Frequency and Duration Frequency of Treatment 2x/Week Duration of Treatment 3 months Plan of Care Start Date 09/21/18 Plan of Care End Date 12/21/18 Therapeutic Interventions Therapeutic Interventions Aquatic Therapy Balance Training Gait Training Home Exercise Program Manual Therapy Neuromuscular Re-education Soft Tissue Mobilization Therapeutic Activities Therapeutic Exercises Next Visit Focus/Plan Next Note Type Treatment Note Next Visit Plan Continue focus on opposing arm swing during gait, increasing activity tolerance, increasing gait /s an AD, and improving balance
--- NOTE | 2018-11-18 10:26 | PT.OTN ---
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 with return to pre-existing conscious level, subsequent encounter (11/18/18) History of falling (11/18/18) Physical Therapy Treatment Note PT-OP-A Visit Information Start: 09/28/17 15:21 Freq: Status: Active Protocol: Document 11/18/18 09:45 DCW (Rec: 11/18/18 10:26 DCW [id number]) Out-Patient Physical Therapy Visit Information Visit Information Visit Type Treatment Note Visit Start Time 09:45 Visit Stop Time 10:30 Total Visit Minutes 45 Visit Number 07/10 Number of MAILROOM MANAGER Visits 0 Evaluation Information Evaluation Date 07/27/17 PT-OP-B Current Condition Start: 09/28/17 15:21 Freq: Status: Active Protocol: Document 10/12/17 13:45 DCW (Rec: 10/12/17 18:33 DCW [id number]) Current Condition History of Current Condition Onset Date 02/05/17 History of Current Condition See Pt's initial evaluation in Therapy Source Current Functional Impairments (Reported) Functional Limitations- Mobility/Gait Transfers:W/C<->Mat Stand- pivot: Independent PT-OP-C Subjective Start: 09/28/17 15:21 Freq: Status: Active Protocol: Document 11/18/18 09:45 DCW (Rec: 11/18/18 10:26 DCW [id number]) OP-PT Subjective Patient Comments Patient Comments Pt reports his back is improving, but feels his right leg might limit him today. PT-OP-D Balance Start: 10/12/17 18:11 Freq: Status: Active Protocol: Document 09/21/18 11:15 DCW (Rec: 09/21/18 11:58 DCW [id number]) OP-PT Balance Assessment Standing Balance Standing Balance Comments Double leg, Eyes open: 2'02 Donis Balance Assessment Evaluation Sitting to Standing Ability Independent w/Hands Unsupported Stance Supervision- 2 minutes Sitting Unsupported, Feet on Floor Safely- 2 minutes Standing to Sitting Ability Assist, Control w/Hands Transfer Ability Safely, Hand Use Unsupported Stance- Eyes Closed Safely, With Eyes Open Unsupported Stance- Eyes Open Supervision to maintain Reaching Forward Standing Safely, 5 inches Pick- Up Object From Floor Supervision Look Behind Shoulder - Standing Turns Sideways Only Turning 360 Degrees Requires Assistance Unsupported Stance, Alternating Feet on 2 Steps w/Minimum Assist Stair Unsupported Tandem Stance Small Step- 30 seconds Unilateral Leg Stance Lifts Leg/Unable to Hold Total Score Donis Total Score (out of 56 points) 32 Donis Impairment Rating 40 to 59% Impaired (Score 23- 33) Mejia Fall Scale Copyright Permission PT-OP-E Functional Tests Start: 10/12/17 18:11 Freq: Status: Active Protocol: Document 09/21/18 11:15 DCW (Rec: 09/21/18 11:58 DCW [id number]) Functional Tests 6 Minute Walk Test Distance 902' Device Used 4WW PT-OP-M Strength Start: 10/12/17 18:11 Freq: Status: Active Protocol: Document 09/21/18 11:15 DCW (Rec: 09/21/18 11:58 DCW [id number]) Hip Strength Hip Manual Muscle Testing Right Flexion (L2) 5 Normal Abduction 5 Normal Adduction 5 Normal Left Flexion (L2) 4+ Good+ Abduction 5 Normal Adduction 5 Normal Knee Strength Knee Manual Muscle Testing Right Flexion (S2) 5 Normal Extension (L3) 5 Normal Left Flexion (S2) 4+ Good+ Extension (L3) 5 Normal Ankle/Foot Strength Ankle and Foot Manual Muscle Testing Right Dorsiflexion (L4) 2- Poor- Plantarflexion (S1) 3+ Fair+ Left Dorsiflexion (L4) 4+ Good+ Plantarflexion (S1) 5 Normal PT-OP-Q Treatments Start: 09/28/17 15:21 Freq: Status: Active Protocol: Document 11/18/18 09:45 DCW (Rec: 11/18/18 10:26 DCW [id number]) Gym Equipment Shuttle Balance 1 Details Blue - Wide WILIAN Therapeutic Exercises Standing Exercises Hip Abduction Standing Exercise Name Abduction Side bilateral Resistance Green Equipment Used T-band Hip Extension Standing Exercise Name Extension Side bilateral Resistance Green Equipment Used T-band Hamstring curls Standing Exercise Name HS curls at rail Side bilateral Resistance 10# Equipment Used ankle weights Standing Marching Standing Exercise Name Marching at rail Side bilateral Resistance 10# Equipment Used ankle weights Gait Training Gait Activity 2 Description Ambulation /s AD Level of Assistance CGA Distance/Duration 105'x1, 50'x1, 40'x1 Treatment Focus Focus on increased step length , continous movement, arm swing Comments Pt ambulated around gym and avoided obstacles. PT-OP-T Assessment and Plan Start: 09/28/17 15:21 Freq: Status: Active Protocol: Document 11/18/18 09:45 DCW (Rec: 11/18/18 10:26 DCW [id number]) Physical Therapy Assessment Impairments Impairments Activity Tolerance Balance Functional Activities Functional Mobility Gait ROM Strength Goals Eight Impairment Unassisted Gait Marine Scientist Goal (LTG) Pt to ambulate 100' SBA /s AD LTG Duration 10/21/18 Seven Impairment Donis Short Term Goal (STG) Pt to score 22/56 on Donis Balance scale STG Duration Met Marine Scientist Goal (LTG) Pt to score 35/56 on Donis Balance scale LTG Duration 12/21/18 Six Impairment Static Standing Balance Short Term Goal (STG) Pt to stand independently for 2 minutes STG Duration Met Mcc Goal (LTG) Pt to stand independently for 3 minutes LTG Duration 12/21/18 Five Impairment 6 MWT Marine Scientist Goal (LTG) Pt to ambulate 1000' without rest using 4WW during 6 MWT (09/21/18: 902') LTG Duration 12/21/18 - Improving Four Impairment Foot slap Short Term Goal (STG) Pt to regularly wear R AFO to limit foot drop and help normalize gait pattern STG Duration Met Three Impairment Transfers Short Term Goal (STG) Pt to transfer independently from mat<->w/c with no assistive devices STG Duration Met Two Impairment Ankle weakness Mcc Goal (LTG) Pt to display 2/5 MMT in R DF, 4/5 MMT in R PF, and 4+/5 MMT in all other bilateral ankle movements LTG Duration 12/21/18 - Improving One Impairment Activity tolerance Marine Scientist Goal (LTG) Pt to tolerate activity up to 15 minutes without a break LTG Duration 12/21/18 - Improving Assessment Summary Assessment Pt noticeably frustrated today that he wasn't able to quite walk has far as he had previously, however after reminders about his excellent progress so far since his injury, he was in much better spirits. Physical Therapy Plan Frequency and Duration Frequency of Treatment 2x/Week Duration of Treatment 3 months Plan of Care Start Date 09/21/18 Plan of Care End Date 12/21/18 Therapeutic Interventions Therapeutic Interventions Aquatic Therapy Balance Training Gait Training Home Exercise Program Manual Therapy Neuromuscular Re-education Soft Tissue Mobilization Therapeutic Activities Therapeutic Exercises Next Visit Focus/Plan Next Note Type Treatment Note Next Visit Plan Continue focus on opposing arm swing during gait, increasing activity tolerance, increasing gait /s an AD, and improving balance
--- NOTE | 2018-11-25 10:24 | PT.OTN ---
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 with return to pre-existing conscious level, subsequent encounter (11/25/18) History of falling (11/25/18) Physical Therapy Treatment Note PT-OP-A Visit Information Start: 09/28/17 15:21 Freq: Status: Active Protocol: Document 11/25/18 09:45 DCW (Rec: 11/25/18 10:24 DCW [id number]) Out-Patient Physical Therapy Visit Information Visit Information Visit Type Treatment Note Visit Start Time 09:45 Visit Stop Time 10:30 Total Visit Minutes 45 Visit Number 3 Number of RN HEMATOLOGY Visits 0 Evaluation Information Evaluation Date 07/27/17 PT-OP-B Current Condition Start: 09/28/17 15:21 Freq: Status: Active Protocol: Document 10/12/17 13:45 DCW (Rec: 10/12/17 18:33 DCW [id number]) Current Condition History of Current Condition Onset Date 02/05/17 History of Current Condition See Pt's initial evaluation in Therapy Source Current Functional Impairments (Reported) Functional Limitations- Mobility/Gait Transfers:W/C<->Mat Stand- pivot: Independent PT-OP-C Subjective Start: 09/28/17 15:21 Freq: Status: Active Protocol: Document 11/25/18 09:45 DCW (Rec: 11/25/18 10:24 DCW [id number]) OP-PT Subjective Patient Comments Patient Comments Pt reports he is doing well considering how much I have going on. PT-OP-D Balance Start: 10/12/17 18:11 Freq: Status: Active Protocol: Document 09/21/18 11:15 DCW (Rec: 09/21/18 11:58 DCW [id number]) OP-PT Balance Assessment Standing Balance Standing Balance Comments Double leg, Eyes open: 2'02 Donis Balance Assessment Evaluation Sitting to Standing Ability Independent w/Hands Unsupported Stance Supervision- 2 minutes Sitting Unsupported, Feet on Floor Safely- 2 minutes Standing to Sitting Ability Assist, Control w/Hands Transfer Ability Safely, Hand Use Unsupported Stance- Eyes Closed Safely, With Eyes Open Unsupported Stance- Eyes Open Supervision to maintain Reaching Forward Standing Safely, 5 inches Pick- Up Object From Floor Supervision Look Behind Shoulder - Standing Turns Sideways Only Turning 360 Degrees Requires Assistance Unsupported Stance, Alternating Feet on 2 Steps w/Minimum Assist Stair Unsupported Tandem Stance Small Step- 30 seconds Unilateral Leg Stance Lifts Leg/Unable to Hold Total Score Donis Total Score (out of 56 points) 32 Donis Impairment Rating 40 to 59% Impaired (Score 23- 33) Mejia Fall Scale Copyright Permission PT-OP-E Functional Tests Start: 10/12/17 18:11 Freq: Status: Active Protocol: Document 09/21/18 11:15 DCW (Rec: 09/21/18 11:58 DCW [id number]) Functional Tests 6 Minute Walk Test Distance 902' Device Used 4WW PT-OP-M Strength Start: 10/12/17 18:11 Freq: Status: Active Protocol: Document 09/21/18 11:15 DCW (Rec: 09/21/18 11:58 DCW [id number]) Hip Strength Hip Manual Muscle Testing Right Flexion (L2) 5 Normal Abduction 5 Normal Adduction 5 Normal Left Flexion (L2) 4+ Good+ Abduction 5 Normal Adduction 5 Normal Knee Strength Knee Manual Muscle Testing Right Flexion (S2) 5 Normal Extension (L3) 5 Normal Left Flexion (S2) 4+ Good+ Extension (L3) 5 Normal Ankle/Foot Strength Ankle and Foot Manual Muscle Testing Right Dorsiflexion (L4) 2- Poor- Plantarflexion (S1) 3+ Fair+ Left Dorsiflexion (L4) 4+ Good+ Plantarflexion (S1) 5 Normal PT-OP-Q Treatments Start: 09/28/17 15:21 Freq: Status: Active Protocol: Document 11/25/18 09:45 DCW (Rec: 11/25/18 10:24 DCW [id number]) Gym Equipment Shuttle Recovery Bilateral Heel Raises Resistance 150# Shuttle Recovery Platform Stable Reps/Time x60 Unilateral Squats Resistance 100# Shuttle Recovery Platform Stable Reps/Time x20 Bilateral Squats Resistance 187# Shuttle Recovery Platform Stable Reps/Time x30 Gait Training Gait Activity 3 Device Used 4WW Level of Assistance SBA Distance/Duration 360' x2 Treatment Focus Increased gait distance/ tolerance 2 Description Ambulation /s AD Level of Assistance CGA Distance/Duration 60' x2, 35' x2 Treatment Focus Focus on increased step length , continous movement, arm swing Comments Pt ambulated around gym and avoided obstacles. PT-OP-T Assessment and Plan Start: 09/28/17 15:21 Freq: Status: Active Protocol: Document 11/25/18 09:45 DCW (Rec: 11/25/18 10:24 DCW [id number]) Physical Therapy Assessment Impairments Impairments Activity Tolerance Balance Functional Activities Functional Mobility Gait ROM Strength Goals Eight Impairment Unassisted Gait Obstetrician Goal (LTG) Pt to ambulate 100' SBA /s AD LTG Duration 10/21/18 Seven Impairment Donis Short Term Goal (STG) Pt to score 22/56 on Donis Balance scale STG Duration Met Obstetrician Goal (LTG) Pt to score 35/56 on Donis Balance scale LTG Duration 12/21/18 Six Impairment Static Standing Balance Short Term Goal (STG) Pt to stand independently for 2 minutes STG Duration Met Obstetrician Goal (LTG) Pt to stand independently for 3 minutes LTG Duration 12/21/18 Five Impairment 6 MWT Fci Goal (LTG) Pt to ambulate 1000' without rest using 4WW during 6 MWT (09/21/18: 902') LTG Duration 12/21/18 - Improving Four Impairment Foot slap Short Term Goal (STG) Pt to regularly wear R AFO to limit foot drop and help normalize gait pattern STG Duration Met Three Impairment Transfers Short Term Goal (STG) Pt to transfer independently from mat<->w/c with no assistive devices STG Duration Met Two Impairment Ankle weakness Fci Goal (LTG) Pt to display 2/5 MMT in R DF, 4/5 MMT in R PF, and 4+/5 MMT in all other bilateral ankle movements LTG Duration 12/21/18 - Improving One Impairment Activity tolerance Fci Goal (LTG) Pt to tolerate activity up to 15 minutes without a break LTG Duration 12/21/18 - Improving Assessment Summary Assessment Pt experiencing decreased activity tolerance today, which he was quite disheartened by. Physical Therapy Plan Frequency and Duration Frequency of Treatment 2x/Week Duration of Treatment 3 months Plan of Care Start Date 09/21/18 Plan of Care End Date 12/21/18 Therapeutic Interventions Therapeutic Interventions Aquatic Therapy Balance Training Gait Training Home Exercise Program Manual Therapy Neuromuscular Re-education Soft Tissue Mobilization Therapeutic Activities Therapeutic Exercises Next Visit Focus/Plan Next Note Type Treatment Note Next Visit Plan Continue focus on opposing arm swing during gait, increasing activity tolerance, increasing gait /s an AD, and improving balance
--- NOTE | 2018-11-29 10:28 | PT.OTN ---
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 with return to pre-existing conscious level, subsequent encounter (11/29/18) History of falling (11/29/18) Physical Therapy Treatment Note PT-OP-A Visit Information Start: 09/28/17 15:21 Freq: Status: Active Protocol: Document 11/29/18 09:45 DCW (Rec: 11/29/18 10:28 DCW [id number]) Out-Patient Physical Therapy Visit Information Visit Information Visit Type Treatment Note Visit Start Time 09:45 Visit Stop Time 10:30 Total Visit Minutes 45 Visit Number 4 Number of SHIRT TURNER Visits 0 Evaluation Information Evaluation Date 07/27/17 PT-OP-B Current Condition Start: 09/28/17 15:21 Freq: Status: Active Protocol: Document 10/12/17 13:45 DCW (Rec: 10/12/17 18:33 DCW [id number]) Current Condition History of Current Condition Onset Date 02/05/17 History of Current Condition See Pt's initial evaluation in Therapy Source Current Functional Impairments (Reported) Functional Limitations- Mobility/Gait Transfers:W/C<->Mat Stand- pivot: Independent PT-OP-C Subjective Start: 09/28/17 15:21 Freq: Status: Active Protocol: Document 11/29/18 09:45 DCW (Rec: 11/29/18 10:28 DCW [id number]) OP-PT Subjective Patient Comments Patient Comments Pt reports he has blurry/ double vision today, as he just came from an eye appointment and got his eyes dilated. pt does note recent return of left posterior hip pain. PT-OP-D Balance Start: 10/12/17 18:11 Freq: Status: Active Protocol: Document 09/21/18 11:15 DCW (Rec: 09/21/18 11:58 DCW [id number]) OP-PT Balance Assessment Standing Balance Standing Balance Comments Double leg, Eyes open: 2'02 Donis Balance Assessment Evaluation Sitting to Standing Ability Independent w/Hands Unsupported Stance Supervision- 2 minutes Sitting Unsupported, Feet on Floor Safely- 2 minutes Standing to Sitting Ability Assist, Control w/Hands Transfer Ability Safely, Hand Use Unsupported Stance- Eyes Closed Safely, With Eyes Open Unsupported Stance- Eyes Open Supervision to maintain Reaching Forward Standing Safely, 5 inches Pick- Up Object From Floor Supervision Look Behind Shoulder - Standing Turns Sideways Only Turning 360 Degrees Requires Assistance Unsupported Stance, Alternating Feet on 2 Steps w/Minimum Assist Stair Unsupported Tandem Stance Small Step- 30 seconds Unilateral Leg Stance Lifts Leg/Unable to Hold Total Score Donis Total Score (out of 56 points) 32 Donis Impairment Rating 40 to 59% Impaired (Score 23- 33) Mejia Fall Scale Copyright Permission PT-OP-E Functional Tests Start: 10/12/17 18:11 Freq: Status: Active Protocol: Document 09/21/18 11:15 DCW (Rec: 09/21/18 11:58 DCW [id number]) Functional Tests 6 Minute Walk Test Distance 902' Device Used 4WW PT-OP-M Strength Start: 10/12/17 18:11 Freq: Status: Active Protocol: Document 09/21/18 11:15 DCW (Rec: 09/21/18 11:58 DCW [id number]) Hip Strength Hip Manual Muscle Testing Right Flexion (L2) 5 Normal Abduction 5 Normal Adduction 5 Normal Left Flexion (L2) 4+ Good+ Abduction 5 Normal Adduction 5 Normal Knee Strength Knee Manual Muscle Testing Right Flexion (S2) 5 Normal Extension (L3) 5 Normal Left Flexion (S2) 4+ Good+ Extension (L3) 5 Normal Ankle/Foot Strength Ankle and Foot Manual Muscle Testing Right Dorsiflexion (L4) 2- Poor- Plantarflexion (S1) 3+ Fair+ Left Dorsiflexion (L4) 4+ Good+ Plantarflexion (S1) 5 Normal PT-OP-Q Treatments Start: 09/28/17 15:21 Freq: Status: Active Protocol: Document 11/29/18 09:45 DCW (Rec: 11/29/18 10:28 DCW [id number]) Therapeutic Exercises Standing Exercises Hip Abduction Standing Exercise Name Abduction Side bilateral Resistance Green Equipment Used T-band Hip Extension Standing Exercise Name Extension Side bilateral Resistance Green Equipment Used T-band Hamstring curls Standing Exercise Name HS curls at rail Side bilateral Resistance 10# Equipment Used ankle weights Standing Marching Standing Exercise Name Marching at rail Side bilateral Resistance 10# Equipment Used ankle weights Gait Training Gait Activity 2 Description Ambulation /s AD Level of Assistance CGA Distance/Duration 90' x1, 60' x2 Treatment Focus Focus on increased step length , continous movement, arm swing Comments Pt ambulated around gym and avoided obstacles. Manual Therapy Treatment Soft Tissue Mobilization Piriformis Body Location L piriformis Mobilization Type Strumming Sustained Pressure Intensity/Depth Deep Body Position Sidelying PT-OP-T Assessment and Plan Start: 09/28/17 15:21 Freq: Status: Active Protocol: Document 11/29/18 09:45 DCW (Rec: 11/29/18 10:28 DCW [id number]) Physical Therapy Assessment Impairments Impairments Activity Tolerance Balance Functional Activities Functional Mobility Gait ROM Strength Goals Eight Impairment Unassisted Gait Territory Sales Representative Goal (LTG) Pt to ambulate 100' SBA /s AD LTG Duration 10/21/18 Seven Impairment Donis Short Term Goal (STG) Pt to score 22/56 on Donis Balance scale STG Duration Met Territory Sales Representative Goal (LTG) Pt to score 35/56 on Donis Balance scale LTG Duration 12/21/18 Six Impairment Static Standing Balance Short Term Goal (STG) Pt to stand independently for 2 minutes STG Duration Met Territory Sales Representative Goal (LTG) Pt to stand independently for 3 minutes LTG Duration 12/21/18 Five Impairment 6 MWT Territory Sales Representative Goal (LTG) Pt to ambulate 1000' without rest using 4WW during 6 MWT (09/21/18: 902') LTG Duration 12/21/18 - Improving Four Impairment Foot slap Short Term Goal (STG) Pt to regularly wear R AFO to limit foot drop and help normalize gait pattern STG Duration Met Three Impairment Transfers Short Term Goal (STG) Pt to transfer independently from mat<->w/c with no assistive devices STG Duration Met Two Impairment Ankle weakness Usp Goal (LTG) Pt to display 2/5 MMT in R DF, 4/5 MMT in R PF, and 4+/5 MMT in all other bilateral ankle movements LTG Duration 12/21/18 - Improving One Impairment Activity tolerance Usp Goal (LTG) Pt to tolerate activity up to 15 minutes without a break LTG Duration 12/21/18 - Improving Assessment Summary Assessment Pt continues to get discouraged that he is not making faster progress with his ambulation ability /s an AD. Focused on not allowing him to take as many rest breaks to work on improving activity tolerance. Physical Therapy Plan Frequency and Duration Frequency of Treatment 2x/Week Duration of Treatment 3 months Plan of Care Start Date 09/21/18 Plan of Care End Date 12/21/18 Therapeutic Interventions Therapeutic Interventions Aquatic Therapy Balance Training Gait Training Home Exercise Program Manual Therapy Neuromuscular Re-education Soft Tissue Mobilization Therapeutic Activities Therapeutic Exercises Next Visit Focus/Plan Next Note Type Treatment Note Next Visit Plan Continue focus on opposing arm swing during gait, increasing activity tolerance, increasing gait /s an AD, and improving balance
--- NOTE | 2018-12-02 11:57 | PT.OTN ---
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 with return to pre-existing conscious level, subsequent encounter (12/02/18) History of falling (12/02/18) Physical Therapy Treatment Note PT-OP-A Visit Information Start: 09/28/17 15:21 Freq: Status: Active Protocol: Document 12/02/18 11:15 DCW (Rec: 12/02/18 11:57 DCW [id number]) Out-Patient Physical Therapy Visit Information Visit Information Visit Type Treatment Note Visit Start Time 11:15 Visit Stop Time 12:00 Total Visit Minutes 45 Visit Number 5/ Number of PCI SECURITY CONSULTANT Visits 0 Evaluation Information Evaluation Date 07/27/17 PT-OP-B Current Condition Start: 09/28/17 15:21 Freq: Status: Active Protocol: Document 10/12/17 13:45 DCW (Rec: 10/12/17 18:33 DCW [id number]) Current Condition History of Current Condition Onset Date 02/05/17 History of Current Condition See Pt's initial evaluation in Therapy Source Current Functional Impairments (Reported) Functional Limitations- Mobility/Gait Transfers:W/C<->Mat Stand- pivot: Independent PT-OP-C Subjective Start: 09/28/17 15:21 Freq: Status: Active Protocol: Document 12/02/18 11:15 DCW (Rec: 12/02/18 11:57 DCW [id number]) OP-PT Subjective Patient Comments Patient Comments Pt had difficulty sleeping last night due to the [place] in his neighborhood, so he is very tired today. PT-OP-D Balance Start: 10/12/17 18:11 Freq: Status: Active Protocol: Document 09/21/18 11:15 DCW (Rec: 09/21/18 11:58 DCW [id number]) OP-PT Balance Assessment Standing Balance Standing Balance Comments Double leg, Eyes open: 2'02 Donis Balance Assessment Evaluation Sitting to Standing Ability Independent w/Hands Unsupported Stance Supervision- 2 minutes Sitting Unsupported, Feet on Floor Safely- 2 minutes Standing to Sitting Ability Assist, Control w/Hands Transfer Ability Safely, Hand Use Unsupported Stance- Eyes Closed Safely, With Eyes Open Unsupported Stance- Eyes Open Supervision to maintain Reaching Forward Standing Safely, 5 inches Pick- Up Object From Floor Supervision Look Behind Shoulder - Standing Turns Sideways Only Turning 360 Degrees Requires Assistance Unsupported Stance, Alternating Feet on 2 Steps w/Minimum Assist Stair Unsupported Tandem Stance Small Step- 30 seconds Unilateral Leg Stance Lifts Leg/Unable to Hold Total Score Donis Total Score (out of 56 points) 32 Donis Impairment Rating 40 to 59% Impaired (Score 23- 33) Mejia Fall Scale Copyright Permission PT-OP-E Functional Tests Start: 10/12/17 18:11 Freq: Status: Active Protocol: Document 09/21/18 11:15 DCW (Rec: 09/21/18 11:58 DCW [id number]) Functional Tests 6 Minute Walk Test Distance 902' Device Used 4WW PT-OP-M Strength Start: 10/12/17 18:11 Freq: Status: Active Protocol: Document 09/21/18 11:15 DCW (Rec: 09/21/18 11:58 DCW [id number]) Hip Strength Hip Manual Muscle Testing Right Flexion (L2) 5 Normal Abduction 5 Normal Adduction 5 Normal Left Flexion (L2) 4+ Good+ Abduction 5 Normal Adduction 5 Normal Knee Strength Knee Manual Muscle Testing Right Flexion (S2) 5 Normal Extension (L3) 5 Normal Left Flexion (S2) 4+ Good+ Extension (L3) 5 Normal Ankle/Foot Strength Ankle and Foot Manual Muscle Testing Right Dorsiflexion (L4) 2- Poor- Plantarflexion (S1) 3+ Fair+ Left Dorsiflexion (L4) 4+ Good+ Plantarflexion (S1) 5 Normal PT-OP-Q Treatments Start: 09/28/17 15:21 Freq: Status: Active Protocol: Document 12/02/18 11:15 DCW (Rec: 12/02/18 11:57 DCW [id number]) Gym Equipment Shuttle Recovery Bilateral Heel Raises Resistance 150# Shuttle Recovery Platform Stable Reps/Time x60 Unilateral Squats Resistance 100# Shuttle Recovery Platform Stable Reps/Time x20 Bilateral Squats Resistance 187# Shuttle Recovery Platform Stable Reps/Time x30 Shuttle Balance 1 Details Blue - Wide WILIAN Gait Training Gait Activity 2 Description Ambulation /s AD Level of Assistance CGA Distance/Duration 130' x1, 60' x1 Treatment Focus Focus on increased step length , continous movement, arm swing Comments Pt ambulated around gym and avoided obstacles. PT-OP-T Assessment and Plan Start: 09/28/17 15:21 Freq: Status: Active Protocol: Document 12/02/18 11:15 DCW (Rec: 12/02/18 11:57 DCW [id number]) Physical Therapy Assessment Impairments Impairments Activity Tolerance Balance Functional Activities Functional Mobility Gait ROM Strength Goals Eight Impairment Unassisted Gait Group Home Goal (LTG) Pt to ambulate 100' SBA /s AD LTG Duration 10/21/18 Seven Impairment Donis Short Term Goal (STG) Pt to score 22/56 on Donis Balance scale STG Duration Met Group Home Goal (LTG) Pt to score 35/56 on Donis Balance scale LTG Duration 12/21/18 Six Impairment Static Standing Balance Short Term Goal (STG) Pt to stand independently for 2 minutes STG Duration Met Kiln Furniture Caster Goal (LTG) Pt to stand independently for 3 minutes LTG Duration 12/21/18 Five Impairment 6 MWT Group Home Goal (LTG) Pt to ambulate 1000' without rest using 4WW during 6 MWT (09/21/18: 902') LTG Duration 12/21/18 - Improving Four Impairment Foot slap Short Term Goal (STG) Pt to regularly wear R AFO to limit foot drop and help normalize gait pattern STG Duration Met Three Impairment Transfers Short Term Goal (STG) Pt to transfer independently from mat<->w/c with no assistive devices STG Duration Met Two Impairment Ankle weakness Group Home Goal (LTG) Pt to display 2/5 MMT in R DF, 4/5 MMT in R PF, and 4+/5 MMT in all other bilateral ankle movements LTG Duration 12/21/18 - Improving One Impairment Activity tolerance Kiln Furniture Caster Goal (LTG) Pt to tolerate activity up to 15 minutes without a break LTG Duration 12/21/18 - Improving Assessment Summary Assessment Pt able to ambulate his furthest distance without an assistive device (130'), and also was able to complete a full lap around the gym with only one rest break for the first time, both of which raised his spirits. Physical Therapy Plan Frequency and Duration Frequency of Treatment 2x/Week Duration of Treatment 3 months Plan of Care Start Date 09/21/18 Plan of Care End Date 12/21/18 Therapeutic Interventions Therapeutic Interventions Aquatic Therapy Balance Training Gait Training Home Exercise Program Manual Therapy Neuromuscular Re-education Soft Tissue Mobilization Therapeutic Activities Therapeutic Exercises Next Visit Focus/Plan Next Note Type Treatment Note Next Visit Plan Continue focus on opposing arm swing during gait, increasing activity tolerance, increasing gait /s an AD, and improving balance
--- NOTE | 2018-12-06 11:58 | PT.OTN ---
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 with return to pre-existing conscious level, subsequent encounter (12/06/18) History of falling (12/06/18) Physical Therapy Treatment Note PT-OP-A Visit Information Start: 09/28/17 15:21 Freq: Status: Active Protocol: Document 12/06/18 11:15 DCW (Rec: 12/06/18 11:58 DCW [id number]) Out-Patient Physical Therapy Visit Information Visit Information Visit Type Treatment Note Visit Start Time 11:15 Visit Stop Time 12:00 Total Visit Minutes 45 Visit Number 11/07 Number of JUNIOR ELECTRICAL ENGINEER Visits 0 Evaluation Information Evaluation Date 07/27/17 PT-OP-B Current Condition Start: 09/28/17 15:21 Freq: Status: Active Protocol: Document 10/12/17 13:45 DCW (Rec: 10/12/17 18:33 DCW [id number]) Current Condition History of Current Condition Onset Date 02/05/17 History of Current Condition See Pt's initial evaluation in Therapy Source Current Functional Impairments (Reported) Functional Limitations- Mobility/Gait Transfers:W/C<->Mat Stand- pivot: Independent PT-OP-C Subjective Start: 09/28/17 15:21 Freq: Status: Active Protocol: Document 12/06/18 11:15 DCW (Rec: 12/06/18 11:58 DCW [id number]) OP-PT Subjective Patient Comments Patient Comments Pt notes he feels pretty good today. PT-OP-D Balance Start: 10/12/17 18:11 Freq: Status: Active Protocol: Document 09/21/18 11:15 DCW (Rec: 09/21/18 11:58 DCW [id number]) OP-PT Balance Assessment Standing Balance Standing Balance Comments Double leg, Eyes open: 2'02 Donis Balance Assessment Evaluation Sitting to Standing Ability Independent w/Hands Unsupported Stance Supervision- 2 minutes Sitting Unsupported, Feet on Floor Safely- 2 minutes Standing to Sitting Ability Assist, Control w/Hands Transfer Ability Safely, Hand Use Unsupported Stance- Eyes Closed Safely, With Eyes Open Unsupported Stance- Eyes Open Supervision to maintain Reaching Forward Standing Safely, 5 inches Pick- Up Object From Floor Supervision Look Behind Shoulder - Standing Turns Sideways Only Turning 360 Degrees Requires Assistance Unsupported Stance, Alternating Feet on 2 Steps w/Minimum Assist Stair Unsupported Tandem Stance Small Step- 30 seconds Unilateral Leg Stance Lifts Leg/Unable to Hold Total Score Donis Total Score (out of 56 points) 32 Donis Impairment Rating 40 to 59% Impaired (Score 23- 33) Mejia Fall Scale Copyright Permission PT-OP-E Functional Tests Start: 10/12/17 18:11 Freq: Status: Active Protocol: Document 09/21/18 11:15 DCW (Rec: 09/21/18 11:58 DCW [id number]) Functional Tests 6 Minute Walk Test Distance 902' Device Used 4WW PT-OP-M Strength Start: 10/12/17 18:11 Freq: Status: Active Protocol: Document 09/21/18 11:15 DCW (Rec: 09/21/18 11:58 DCW [id number]) Hip Strength Hip Manual Muscle Testing Right Flexion (L2) 5 Normal Abduction 5 Normal Adduction 5 Normal Left Flexion (L2) 4+ Good+ Abduction 5 Normal Adduction 5 Normal Knee Strength Knee Manual Muscle Testing Right Flexion (S2) 5 Normal Extension (L3) 5 Normal Left Flexion (S2) 4+ Good+ Extension (L3) 5 Normal Ankle/Foot Strength Ankle and Foot Manual Muscle Testing Right Dorsiflexion (L4) 2- Poor- Plantarflexion (S1) 3+ Fair+ Left Dorsiflexion (L4) 4+ Good+ Plantarflexion (S1) 5 Normal PT-OP-Q Treatments Start: 09/28/17 15:21 Freq: Status: Active Protocol: Document 12/06/18 11:15 DCW (Rec: 12/06/18 11:58 DCW [id number]) Gym Equipment Shuttle Balance 1 Details Blue - Wide WILIAN Therapeutic Exercises Sitting Exercises Trunk Rotation Sitting Exercise Name Rotate LEs while keeping shoulders stable Equipment Used seated on rolling stool @ // bars Standing Exercises Hip Abduction Standing Exercise Name Abduction Side bilateral Resistance Green Equipment Used T-band Hip Extension Standing Exercise Name Extension Side bilateral Resistance Green Equipment Used T-band Hamstring curls Standing Exercise Name HS curls at rail Side bilateral Resistance 10# Equipment Used ankle weights Standing Marching Standing Exercise Name Marching at rail Side bilateral Resistance 10# Equipment Used ankle weights Gait Training Gait Activity 2 Description Ambulation /s AD Level of Assistance CGA Distance/Duration 115' x1, 85' x1 Treatment Focus Focus on increased step length , continous movement, arm swing Comments Pt ambulated around gym and avoided obstacles. PT-OP-T Assessment and Plan Start: 09/28/17 15:21 Freq: Status: Active Protocol: Document 12/06/18 11:15 DCW (Rec: 12/06/18 11:58 DCW [id number]) Physical Therapy Assessment Impairments Impairments Activity Tolerance Balance Functional Activities Functional Mobility Gait ROM Strength Goals Eight Impairment Unassisted Gait Gta Goal (LTG) Pt to ambulate 100' SBA /s AD LTG Duration 10/21/18 Seven Impairment Donis Short Term Goal (STG) Pt to score 22/56 on Donis Balance scale STG Duration Met Correction Goal (LTG) Pt to score 35/56 on Donis Balance scale LTG Duration 12/21/18 Six Impairment Static Standing Balance Short Term Goal (STG) Pt to stand independently for 2 minutes STG Duration Met [employer] Goal (LTG) Pt to stand independently for 3 minutes LTG Duration 12/21/18 Five Impairment 6 MWT Correction Goal (LTG) Pt to ambulate 1000' without rest using 4WW during 6 MWT (09/21/18: 902') LTG Duration 12/21/18 - Improving Four Impairment Foot slap Short Term Goal (STG) Pt to regularly wear R AFO to limit foot drop and help normalize gait pattern STG Duration Met Three Impairment Transfers Short Term Goal (STG) Pt to transfer independently from mat<->w/c with no assistive devices STG Duration Met Two Impairment Ankle weakness Correction Goal (LTG) Pt to display 2/5 MMT in R DF, 4/5 MMT in R PF, and 4+/5 MMT in all other bilateral ankle movements LTG Duration 12/21/18 - Improving One Impairment Activity tolerance Correction Goal (LTG) Pt to tolerate activity up to 15 minutes without a break LTG Duration 12/21/18 - Improving Assessment Summary Assessment Focused on allowing fewer rest breaks in an effort to improve activity tolerance, in hopes to improve ambulation distance. Physical Therapy Plan Frequency and Duration Frequency of Treatment 2x/Week Duration of Treatment 3 months Plan of Care Start Date 09/21/18 Plan of Care End Date 12/21/18 Therapeutic Interventions Therapeutic Interventions Aquatic Therapy Balance Training Gait Training Home Exercise Program Manual Therapy Neuromuscular Re-education Soft Tissue Mobilization Therapeutic Activities Therapeutic Exercises Next Visit Focus/Plan Next Note Type Treatment Note Next Visit Plan Continue focus on opposing arm swing during gait, increasing activity tolerance, increasing gait /s an AD, and improving balance
--- NOTE | 2018-12-09 10:27 | PT.OTN ---
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 greater than 24 hours with return to pre-existing conscious level, subsequent encounter (12/09/18) History of falling (12/09/18) Physical Therapy Treatment Note PT-OP-A Visit Information Start: 09/28/17 15:21 Freq: Status: Active Protocol: Document 12/09/18 09:45 DCW (Rec: 12/09/18 10:27 DCW [id number]) Out-Patient Physical Therapy Visit Information Visit Information Visit Type Treatment Note Visit Start Time 09:45 Visit Stop Time 10:30 Total Visit Minutes 45 Visit Number 12/07 Number of CAN LINE OPERATOR Visits 0 Evaluation Information Evaluation Date 07/27/17 PT-OP-B Current Condition Start: 09/28/17 15:21 Freq: Status: Active Protocol: Document 10/12/17 13:45 DCW (Rec: 10/12/17 18:33 DCW [id number]) Current Condition History of Current Condition Onset Date 02/05/17 History of Current Condition See Pt's initial evaluation in Therapy Source Current Functional Impairments (Reported) Functional Limitations- Mobility/Gait Transfers:W/C<->Mat Stand- pivot: Independent PT-OP-C Subjective Start: 09/28/17 15:21 Freq: Status: Active Protocol: Document 12/09/18 09:45 DCW (Rec: 12/09/18 10:27 DCW [id number]) OP-PT Subjective Patient Comments Patient Comments 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 PT-OP-D Balance Start: 10/12/17 18:11 Freq: Status: Active Protocol: Document 09/21/18 11:15 DCW (Rec: 09/21/18 11:58 DCW [id number]) OP-PT Balance Assessment Standing Balance Standing Balance Comments Double leg, Eyes open: 2'02 Donis Balance Assessment Evaluation Sitting to Standing Ability Independent w/Hands Unsupported Stance Supervision- 2 minutes Sitting Unsupported, Feet on Floor Safely- 2 minutes Standing to Sitting Ability Assist, Control w/Hands Transfer Ability Safely, Hand Use Unsupported Stance- Eyes Closed Safely, With Eyes Open Unsupported Stance- Eyes Open Supervision to maintain Reaching Forward Standing Safely, 5 inches Pick- Up Object From Floor Supervision Look Behind Shoulder - Standing Turns Sideways Only Turning 360 Degrees Requires Assistance Unsupported Stance, Alternating Feet on 2 Steps w/Minimum Assist Stair Unsupported Tandem Stance Small Step- 30 seconds Unilateral Leg Stance Lifts Leg/Unable to Hold Total Score Donis Total Score (out of 56 points) 32 Donis Impairment Rating 40 to 59% Impaired (Score 23- 33) Mejia Fall Scale Copyright Permission PT-OP-E Functional Tests Start: 10/12/17 18:11 Freq: Status: Active Protocol: Document 09/21/18 11:15 DCW (Rec: 09/21/18 11:58 DCW [id number]) Functional Tests 6 Minute Walk Test Distance 902' Device Used 4WW PT-OP-M Strength Start: 10/12/17 18:11 Freq: Status: Active Protocol: Document 09/21/18 11:15 DCW (Rec: 09/21/18 11:58 DCW [id number]) Hip Strength Hip Manual Muscle Testing Right Flexion (L2) 5 Normal Abduction 5 Normal Adduction 5 Normal Left Flexion (L2) 4+ Good+ Abduction 5 Normal Adduction 5 Normal Knee Strength Knee Manual Muscle Testing Right Flexion (S2) 5 Normal Extension (L3) 5 Normal Left Flexion (S2) 4+ Good+ Extension (L3) 5 Normal Ankle/Foot Strength Ankle and Foot Manual Muscle Testing Right Dorsiflexion (L4) 2- Poor- Plantarflexion (S1) 3+ Fair+ Left Dorsiflexion (L4) 4+ Good+ Plantarflexion (S1) 5 Normal PT-OP-Q Treatments Start: 09/28/17 15:21 Freq: Status: Active Protocol: Document 12/09/18 09:45 DCW (Rec: 12/09/18 10:27 DCW [id number]) Gym Equipment Shuttle Recovery Bilateral Heel Raises Resistance 150# Shuttle Recovery Platform Stable Reps/Time x60 Unilateral Squats Resistance 100# Shuttle Recovery Platform Stable Reps/Time x20 Bilateral Squats Resistance 187# Shuttle Recovery Platform Stable Reps/Time x30 Therapeutic Ball Hip/knee Flexion Exercise Details Resisted hip/knee flexion /c feet on ball Ball Size/Color Red - 55 cm Body Position Supine Bridging Exercise Details Bridging Ball Size/Color Red - 55 cm Lv 3 T-band Body Position Supine Trunk Rotation Exercise Details Trunk rotation /c LE on T-ball Ball Size/Color Red - 55 cm Body Position Supine Gait Training Gait Activity 2 Description Ambulation /s AD Level of Assistance CGA Distance/Duration 125' x1, 70' x1 Treatment Focus Focus on increased step length , continous movement, arm swing Comments Pt ambulated around gym and avoided obstacles. PT-OP-T Assessment and Plan Start: 09/28/17 15:21 Freq: Status: Active Protocol: Document 12/09/18 09:45 DCW (Rec: 12/09/18 10:27 DCW [id number]) Physical Therapy Assessment Impairments Impairments Activity Tolerance Balance Functional Activities Functional Mobility Gait ROM Strength Goals Eight Impairment Unassisted Gait Senior Care Goal (LTG) Pt to ambulate 100' SBA /s AD LTG Duration 10/21/18 Seven Impairment Donis Short Term Goal (STG) Pt to score 22/56 on Donis Balance scale STG Duration Met Senior Care Goal (LTG) Pt to score 35/56 on Donis Balance scale LTG Duration 12/21/18 Six Impairment Static Standing Balance Short Term Goal (STG) Pt to stand independently for 2 minutes STG Duration Met Music Journalist Goal (LTG) Pt to stand independently for 3 minutes LTG Duration 12/21/18 Five Impairment 6 MWT Music Journalist Goal (LTG) Pt to ambulate 1000' without rest using 4WW during 6 MWT (09/21/18: 902') LTG Duration 12/21/18 - Improving Four Impairment Foot slap Short Term Goal (STG) Pt to regularly wear R AFO to limit foot drop and help normalize gait pattern STG Duration Met Three Impairment Transfers Short Term Goal (STG) Pt to transfer independently from mat<->w/c with no assistive devices STG Duration Met Two Impairment Ankle weakness Senior Care Goal (LTG) Pt to display 2/5 MMT in R DF, 4/5 MMT in R PF, and 4+/5 MMT in all other bilateral ankle movements LTG Duration 12/21/18 - Improving One Impairment Activity tolerance Music Journalist Goal (LTG) Pt to tolerate activity up to 15 minutes without a break LTG Duration 12/21/18 - Improving Assessment Summary Assessment Pt tolerated addition of new supine T-ball exercises well, but was clearly fatigued. Physical Therapy Plan Frequency and Duration Frequency of Treatment 2x/Week Duration of Treatment 3 months Plan of Care Start Date 09/21/18 Plan of Care End Date 12/21/18 Therapeutic Interventions Therapeutic Interventions Aquatic Therapy Balance Training Gait Training Home Exercise Program Manual Therapy Neuromuscular Re-education Soft Tissue Mobilization Therapeutic Activities Therapeutic Exercises Next Visit Focus/Plan Next Note Type Treatment Note Next Visit Plan Continue focus on opposing arm swing during gait, increasing activity tolerance, increasing gait /s an AD, and improving balance
--- NOTE | 2018-12-13 11:15 | PT.OTN ---
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 with return to pre-existing conscious level, subsequent encounter (12/13/18) History of falling (12/13/18) Physical Therapy Treatment Note PT-OP-A Visit Information Start: 09/28/17 15:21 Freq: Status: Active Protocol: Document 12/13/18 10:30 DCW (Rec: 12/13/18 11:15 DCW [id number]) Out-Patient Physical Therapy Visit Information Visit Information Visit Type Treatment Note Visit Start Time 10:30 Visit Stop Time 11:15 Total Visit Minutes 45 Visit Number 01/07 Number of HEPATOLOGY PHYSICIAN Visits 0 Evaluation Information Evaluation Date 07/27/17 PT-OP-B Current Condition Start: 09/28/17 15:21 Freq: Status: Active Protocol: Document 10/12/17 13:45 DCW (Rec: 10/12/17 18:33 DCW [id number]) Current Condition History of Current Condition Onset Date 02/05/17 History of Current Condition See Pt's initial evaluation in Therapy Source Current Functional Impairments (Reported) Functional Limitations- Mobility/Gait Transfers:W/C<->Mat Stand- pivot: Independent PT-OP-C Subjective Start: 09/28/17 15:21 Freq: Status: Active Protocol: Document 12/13/18 10:30 DCW (Rec: 12/13/18 11:15 DCW [id number]) OP-PT Subjective Patient Comments Patient Comments Pt reports he just came from a dermatology appointment this morning, so he is already pretty worn out. PT-OP-D Balance Start: 10/12/17 18:11 Freq: Status: Active Protocol: Document 09/21/18 11:15 DCW (Rec: 09/21/18 11:58 DCW [id number]) OP-PT Balance Assessment Standing Balance Standing Balance Comments Double leg, Eyes open: 2'02 Donis Balance Assessment Evaluation Sitting to Standing Ability Independent w/Hands Unsupported Stance Supervision- 2 minutes Sitting Unsupported, Feet on Floor Safely- 2 minutes Standing to Sitting Ability Assist, Control w/Hands Transfer Ability Safely, Hand Use Unsupported Stance- Eyes Closed Safely, With Eyes Open Unsupported Stance- Eyes Open Supervision to maintain Reaching Forward Standing Safely, 5 inches Pick- Up Object From Floor Supervision Look Behind Shoulder - Standing Turns Sideways Only Turning 360 Degrees Requires Assistance Unsupported Stance, Alternating Feet on 2 Steps w/Minimum Assist Stair Unsupported Tandem Stance Small Step- 30 seconds Unilateral Leg Stance Lifts Leg/Unable to Hold Total Score Donis Total Score (out of 56 points) 32 Donis Impairment Rating 40 to 59% Impaired (Score 23- 33) Mejia Fall Scale Copyright Permission PT-OP-E Functional Tests Start: 10/12/17 18:11 Freq: Status: Active Protocol: Document 09/21/18 11:15 DCW (Rec: 09/21/18 11:58 DCW [id number]) Functional Tests 6 Minute Walk Test Distance 902' Device Used 4WW PT-OP-M Strength Start: 10/12/17 18:11 Freq: Status: Active Protocol: Document 09/21/18 11:15 DCW (Rec: 09/21/18 11:58 DCW [id number]) Hip Strength Hip Manual Muscle Testing Right Flexion (L2) 5 Normal Abduction 5 Normal Adduction 5 Normal Left Flexion (L2) 4+ Good+ Abduction 5 Normal Adduction 5 Normal Knee Strength Knee Manual Muscle Testing Right Flexion (S2) 5 Normal Extension (L3) 5 Normal Left Flexion (S2) 4+ Good+ Extension (L3) 5 Normal Ankle/Foot Strength Ankle and Foot Manual Muscle Testing Right Dorsiflexion (L4) 2- Poor- Plantarflexion (S1) 3+ Fair+ Left Dorsiflexion (L4) 4+ Good+ Plantarflexion (S1) 5 Normal PT-OP-Q Treatments Start: 09/28/17 15:21 Freq: Status: Active Protocol: Document 12/13/18 10:30 DCW (Rec: 12/13/18 11:15 DCW [id number]) Gym Equipment Shuttle Balance 1 Details Blue - Wide WILIAN Therapeutic Ball Hip/knee Flexion Exercise Details Resisted hip/knee flexion /c feet on ball Ball Size/Color Red - 55 cm Lv 3 T-band Body Position Supine Bridging Exercise Details Bridging Ball Size/Color Red - 55 cm Body Position Supine Trunk Rotation Exercise Details Trunk rotation /c LE on T-ball Ball Size/Color Red - 55 cm Body Position Supine Gait Training Gait Activity 2 Description Ambulation /s AD Level of Assistance CGA Distance/Duration 110' x1, 80' x1 Treatment Focus Focus on increased step length , continous movement, arm swing Comments Pt ambulated around gym and avoided obstacles. Manual Therapy Treatment Soft Tissue Mobilization Piriformis Body Location L piriformis Mobilization Type Strumming Sustained Pressure Intensity/Depth Deep Body Position Sidelying PT-OP-T Assessment and Plan Start: 09/28/17 15:21 Freq: Status: Active Protocol: Document 12/13/18 10:30 DCW (Rec: 12/13/18 11:15 DCW [id number]) Physical Therapy Assessment Impairments Impairments Activity Tolerance Balance Functional Activities Functional Mobility Gait ROM Strength Goals Eight Impairment Unassisted Gait Prison Goal (LTG) Pt to ambulate 100' SBA /s AD LTG Duration 10/21/18 Seven Impairment Donis Short Term Goal (STG) Pt to score 22/56 on Donis Balance scale STG Duration Met Water Attendant Goal (LTG) Pt to score 35/56 on Donis Balance scale LTG Duration 12/21/18 Six Impairment Static Standing Balance Short Term Goal (STG) Pt to stand independently for 2 minutes STG Duration Met Prison Goal (LTG) Pt to stand independently for 3 minutes LTG Duration 12/21/18 Five Impairment 6 MWT Prison Goal (LTG) Pt to ambulate 1000' without rest using 4WW during 6 MWT (09/21/18: 902') LTG Duration 12/21/18 - Improving Four Impairment Foot slap Short Term Goal (STG) Pt to regularly wear R AFO to limit foot drop and help normalize gait pattern STG Duration Met Three Impairment Transfers Short Term Goal (STG) Pt to transfer independently from mat<->w/c with no assistive devices STG Duration Met Two Impairment Ankle weakness Water Attendant Goal (LTG) Pt to display 2/5 MMT in R DF, 4/5 MMT in R PF, and 4+/5 MMT in all other bilateral ankle movements LTG Duration 12/21/18 - Improving One Impairment Activity tolerance Prison Goal (LTG) Pt to tolerate activity up to 15 minutes without a break LTG Duration 12/21/18 - Improving Assessment Summary Assessment Pt appears to have somewhat plateaued in distance able to ambulate, however should continue to focus on step length and arm swing during ambulation. Physical Therapy Plan Frequency and Duration Frequency of Treatment 2x/Week Duration of Treatment 3 months Plan of Care Start Date 09/21/18 Plan of Care End Date 12/21/18 Therapeutic Interventions Therapeutic Interventions Aquatic Therapy Balance Training Gait Training Home Exercise Program Manual Therapy Neuromuscular Re-education Soft Tissue Mobilization Therapeutic Activities Therapeutic Exercises Next Visit Focus/Plan Next Note Type Treatment Note Next Visit Plan Continue focus on opposing arm swing during gait, increasing activity tolerance, increasing gait /s an AD, and improving balance
--- NOTE | 2018-12-16 10:24 | PT.OTN ---
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 with return to pre-existing conscious level, subsequent encounter (12/16/18) History of falling (12/16/18) Physical Therapy Treatment Note PT-OP-A Visit Information Start: 09/28/17 15:21 Freq: Status: Active Protocol: Document 12/16/18 09:45 DCW (Rec: 12/16/18 10:24 DCW [id number]) Out-Patient Physical Therapy Visit Information Visit Information Visit Type Treatment Note Visit Start Time 09:45 Visit Stop Time 10:30 Total Visit Minutes 45 Visit Number 02/07 Number of ARMOR SENIOR SERGEANT Visits 0 Evaluation Information Evaluation Date 07/27/17 PT-OP-B Current Condition Start: 09/28/17 15:21 Freq: Status: Active Protocol: Document 10/12/17 13:45 DCW (Rec: 10/12/17 18:33 DCW [id number]) Current Condition History of Current Condition Onset Date 02/05/17 History of Current Condition See Pt's initial evaluation in Therapy Source Current Functional Impairments (Reported) Functional Limitations- Mobility/Gait Transfers:W/C<->Mat Stand- pivot: Independent PT-OP-C Subjective Start: 09/28/17 15:21 Freq: Status: Active Protocol: Document 12/16/18 09:45 DCW (Rec: 12/16/18 10:24 DCW [id number]) OP-PT Subjective Patient Comments Patient Comments Pt reports he woke up today, and noticed that he had no pain in my hip at all. PT-OP-D Balance Start: 10/12/17 18:11 Freq: Status: Active Protocol: Document 09/21/18 11:15 DCW (Rec: 09/21/18 11:58 DCW [id number]) OP-PT Balance Assessment Standing Balance Standing Balance Comments Double leg, Eyes open: 2'02 Donis Balance Assessment Evaluation Sitting to Standing Ability Independent w/Hands Unsupported Stance Supervision- 2 minutes Sitting Unsupported, Feet on Floor Safely- 2 minutes Standing to Sitting Ability Assist, Control w/Hands Transfer Ability Safely, Hand Use Unsupported Stance- Eyes Closed Safely, With Eyes Open Unsupported Stance- Eyes Open Supervision to maintain Reaching Forward Standing Safely, 5 inches Pick- Up Object From Floor Supervision Look Behind Shoulder - Standing Turns Sideways Only Turning 360 Degrees Requires Assistance Unsupported Stance, Alternating Feet on 2 Steps w/Minimum Assist Stair Unsupported Tandem Stance Small Step- 30 seconds Unilateral Leg Stance Lifts Leg/Unable to Hold Total Score Donis Total Score (out of 56 points) 32 Donis Impairment Rating 40 to 59% Impaired (Score 23- 33) Mejia Fall Scale Copyright Permission PT-OP-E Functional Tests Start: 10/12/17 18:11 Freq: Status: Active Protocol: Document 09/21/18 11:15 DCW (Rec: 09/21/18 11:58 DCW [id number]) Functional Tests 6 Minute Walk Test Distance 902' Device Used 4WW PT-OP-M Strength Start: 10/12/17 18:11 Freq: Status: Active Protocol: Document 09/21/18 11:15 DCW (Rec: 09/21/18 11:58 DCW [id number]) Hip Strength Hip Manual Muscle Testing Right Flexion (L2) 5 Normal Abduction 5 Normal Adduction 5 Normal Left Flexion (L2) 4+ Good+ Abduction 5 Normal Adduction 5 Normal Knee Strength Knee Manual Muscle Testing Right Flexion (S2) 5 Normal Extension (L3) 5 Normal Left Flexion (S2) 4+ Good+ Extension (L3) 5 Normal Ankle/Foot Strength Ankle and Foot Manual Muscle Testing Right Dorsiflexion (L4) 2- Poor- Plantarflexion (S1) 3+ Fair+ Left Dorsiflexion (L4) 4+ Good+ Plantarflexion (S1) 5 Normal PT-OP-Q Treatments Start: 09/28/17 15:21 Freq: Status: Active Protocol: Document 12/16/18 09:45 DCW (Rec: 12/16/18 10:24 DCW [id number]) Gym Equipment Therapeutic Ball Bridging Exercise Details Bridging Ball Size/Color Red - 55 cm Body Position Supine Trunk Rotation Exercise Details Trunk rotation /c LE on T-ball Ball Size/Color Red - 55 cm Body Position Supine Therapeutic Exercises Standing Exercises Hip Abduction Standing Exercise Name Abduction Side bilateral Resistance Blue Equipment Used T-band Reps/Minutes x20 Hip Extension Standing Exercise Name Extension Side bilateral Resistance Blue Equipment Used T-band Reps/Minutes x20 Hamstring curls Standing Exercise Name HS curls at rail Side bilateral Resistance 10# Equipment Used ankle weights Reps/Minutes x20 Standing Marching Standing Exercise Name Marching at rail Side bilateral Resistance 10# Equipment Used ankle weights Reps/Minutes x25 Gait Training Gait Activity 2 Description Ambulation /s AD Level of Assistance CGA Distance/Duration 155' x1, 50' x1 Treatment Focus Focus on increased step length , continous movement, arm swing Comments Pt ambulated around gym and avoided obstacles. PT-OP-T Assessment and Plan Start: 09/28/17 15:21 Freq: Status: Active Protocol: Document 12/16/18 09:45 DCW (Rec: 12/16/18 10:24 DCW [id number]) Physical Therapy Assessment Impairments Impairments Activity Tolerance Balance Functional Activities Functional Mobility Gait ROM Strength Goals Eight Impairment Unassisted Gait Dock Coordinator Goal (LTG) Pt to ambulate 100' SBA /s AD LTG Duration 10/21/18 Seven Impairment Donis Short Term Goal (STG) Pt to score 22/56 on Donis Balance scale STG Duration Met Dock Coordinator Goal (LTG) Pt to score 35/56 on Donis Balance scale LTG Duration 12/21/18 Six Impairment Static Standing Balance Short Term Goal (STG) Pt to stand independently for 2 minutes STG Duration Met [facility] Goal (LTG) Pt to stand independently for 3 minutes LTG Duration 12/21/18 Five Impairment 6 MWT Dock Coordinator Goal (LTG) Pt to ambulate 1000' without rest using 4WW during 6 MWT (09/21/18: 902') LTG Duration 12/21/18 - Improving Four Impairment Foot slap Short Term Goal (STG) Pt to regularly wear R AFO to limit foot drop and help normalize gait pattern STG Duration Met Three Impairment Transfers Short Term Goal (STG) Pt to transfer independently from mat<->w/c with no assistive devices STG Duration Met Two Impairment Ankle weakness Dock Coordinator Goal (LTG) Pt to display 2/5 MMT in R DF, 4/5 MMT in R PF, and 4+/5 MMT in all other bilateral ankle movements LTG Duration 12/21/18 - Improving One Impairment Activity tolerance Dock Coordinator Goal (LTG) Pt to tolerate activity up to 15 minutes without a break LTG Duration 12/21/18 - Improving Assessment Summary Assessment Pt able to walk further today than his previous record /s an AD, up to 155' before his first break. Physical Therapy Plan Frequency and Duration Frequency of Treatment 2x/Week Duration of Treatment 3 months Plan of Care Start Date 09/21/18 Plan of Care End Date 12/21/18 Therapeutic Interventions Therapeutic Interventions Aquatic Therapy Balance Training Gait Training Home Exercise Program Manual Therapy Neuromuscular Re-education Soft Tissue Mobilization Therapeutic Activities Therapeutic Exercises Next Visit Focus/Plan Next Note Type Progress Note Next Visit Plan New POC
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
--- NOTE | 2018-12-23 10:31 | PT.OPPOC ---
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 greater than 24 hours with return to pre-existing conscious level, subsequent encounter (12/23/18) History of falling (12/23/18) Provider Visit Care Team Role Provider Type Elver Eubanks MD Attending Provider Physician Family Provider Primary Care Provider Specialty: Internal Medicine Address: [address] [place] [address], [facility] Email: Plan Of Care PT-OP-T Assessment and Plan Start: 09/28/17 15:21 Freq: Status: Active Protocol: Document 12/23/18 09:45 DCW (Rec: 12/23/18 10:30 DCW [id number]) Physical Therapy Assessment Impairments Impairments Activity Tolerance Balance Functional Activities Functional Mobility Gait ROM Strength Goals Eight Impairment Unassisted Gait Short Term Goal (STG) Pt to ambulate 100' SBA /s AD STG Duration Met Chcf Goal (LTG) Pt to ambulate 200' SBA /s AD LTG Duration 02/23/19 Seven Impairment Donis Short Term Goal (STG) Pt to score 22/56 on Donis Balance scale STG Duration Met Insole Channeler Goal (LTG) Pt to score 35/56 on Donis Balance scale LTG Duration 02/23/19 Six Impairment Static Standing Balance Short Term Goal (STG) Pt to stand independently for 2 minutes STG Duration Met Chcf Goal (LTG) Pt to stand independently for 3 minutes LTG Duration 02/23/19 - Improving Five Impairment 6 MWT Chcf Goal (LTG) Pt to ambulate 1000' without rest using 4WW during 6 MWT (09/21/18: 902') LTG Duration 02/23/19 - Improving Four Impairment Foot slap Short Term Goal (STG) Pt to regularly wear R AFO to limit foot drop and help normalize gait pattern STG Duration Met Three Impairment Transfers Short Term Goal (STG) Pt to transfer independently from mat<->w/c with no assistive devices STG Duration Met Two Impairment Ankle weakness Chcf Goal (LTG) Pt to display 2/5 MMT in R DF, 4/5 MMT in R PF, and 4+/5 MMT in all other bilateral ankle movements LTG Duration 02/23/19 - Improving One Impairment Activity tolerance Chcf Goal (LTG) Pt to tolerate activity up to 15 minutes without a break LTG Duration 02/23/19 - Improving Assessment Summary Assessment Pt showing progress in all areas except for the Donis Balance test. Increased distance in both ambulation with 4WW during 6 MWT and device-free ambulation. Pt also improving standing balance. Physical Therapy Plan Frequency and Duration Frequency of Treatment 2x/Week Duration of Treatment 3 months Plan of Care Start Date 12/23/18 Plan of Care End Date 03/25/19 Therapeutic Interventions Therapeutic Interventions Aquatic Therapy Balance Training Gait Training Home Exercise Program Manual Therapy Neuromuscular Re-education Soft Tissue Mobilization Therapeutic Activities Therapeutic Exercises Next Visit Focus/Plan Next Note Type Progress Note Next Visit Plan New POC Plan of Care Dates Plan of Care Start Date 12/23/18 Plan of Care End Date 03/25/19 Please Sign and Return: I have reviewed this Plan of Care and certify that the skilled therapy services above are required to meet the patient?s needs. Physician Signature Date Printed Name and Credentials Clinical Instructor Signature Printed Name and Credentials
--- NOTE | 2018-12-27 11:11 | PT.OTN ---
Current Diagnoses Foot drop, right foot (12/27/18) Muscle weakness (generalized) (12/27/18) Unsteadiness on feet (12/27/18) Unspecified abnormalities of gait and mobility (12/27/18) Traumatic subdural hemorrhage with loss of consciousness greater than 24 hours with return to pre-existing conscious level, subsequent encounter (12/27/18) History of falling (12/27/18) Physical Therapy Treatment Note PT-OP-A Visit Information Start: 09/28/17 15:21 Freq: Status: Active Protocol: Document 12/27/18 10:30 DCW (Rec: 12/27/18 11:10 DCW [id number]) Out-Patient Physical Therapy Visit Information Visit Information Visit Type Treatment Note Visit Start Time 10:30 Visit Stop Time 11:15 Total Visit Minutes 45 Visit Number 2 Number of WASTE/MATERIALS EXCHANGE SPECIALIST Visits 0 Evaluation Information Evaluation Date 07/27/17 PT-OP-B Current Condition Start: 09/28/17 15:21 Freq: Status: Active Protocol: Document 10/12/17 13:45 DCW (Rec: 10/12/17 18:33 DCW [id number]) Current Condition History of Current Condition Onset Date 02/05/17 History of Current Condition See Pt's initial evaluation in Therapy Source Current Functional Impairments (Reported) Functional Limitations- Mobility/Gait Transfers:W/C<->Mat Stand- pivot: Independent PT-OP-C Subjective Start: 09/28/17 15:21 Freq: Status: Active Protocol: Document 12/27/18 10:30 DCW (Rec: 12/27/18 11:10 DCW [id number]) OP-PT Subjective Patient Comments Patient Comments Pt reports that 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 PT-OP-D Balance Start: 10/12/17 18:11 Freq: Status: Active Protocol: Document 12/23/18 09:45 DCW (Rec: 12/23/18 10:20 DCW [id number]) OP-PT Balance Assessment Standing Balance Standing Balance Comments Double leg, Eyes open: 2' Donis Balance Assessment Evaluation Sitting to Standing Ability Independent w/Hands Unsupported Stance Supervision- 2 minutes Sitting Unsupported, Feet on Floor Safely- 2 minutes Standing to Sitting Ability Assist, Control w/Hands Transfer Ability Safely, Hand Use Unsupported Stance- Eyes Closed 3 seconds Unsupported Stance- Eyes Open Independent, <30 seconds Reaching Forward Standing Safely, 5 inches Pick- Up Object From Floor Supervision Look Behind Shoulder - Standing Turns Sideways Only Turning 360 Degrees Requires Assistance Unsupported Stance, Alternating Feet on 2 Steps w/Minimum Assist Stair Unsupported Tandem Stance Small Step- 30 seconds Unilateral Leg Stance Lifts Leg/Unable to Hold Total Score Donis Total Score (out of 56 points) 32 Donis Impairment Rating 40 to 59% Impaired (Score 23- 33) Mejia Fall Scale Copyright Permission PT-OP-E Functional Tests Start: 10/12/17 18:11 Freq: Status: Active Protocol: Document 12/23/18 09:45 DCW (Rec: 12/23/18 10:02 DCW [id number]) Functional Tests 6 Minute Walk Test Distance 933' Device Used 4WW PT-OP-G Mobility & Gait Start: 12/23/18 10:02 Freq: Status: Active Protocol: Document 12/23/18 09:45 DCW (Rec: 12/23/18 10:20 DCW [id number]) OP Gait Assessment Gait Gait Assistance Required: Contact Guard Assist Distance (Feet) 155 Assistive Devices Assistive Device None Gait Belt Gait Deviations General Gait Pattern Antalgic Ataxic Decreased Stride Length Decreased Feet Clearance Flexed Trunk Lateral Trunk Lean PT-OP-M Strength Start: 10/12/17 18:11 Freq: Status: Active Protocol: Document 12/23/18 09:45 DCW (Rec: 12/23/18 10:02 DCW [id number]) Hip Strength Hip Manual Muscle Testing Right Flexion (L2) 5 Normal Abduction 5 Normal Adduction 5 Normal Left Flexion (L2) 4+ Good+ Abduction 5 Normal Adduction 5 Normal Knee Strength Knee Manual Muscle Testing Right Flexion (S2) 5 Normal Extension (L3) 5 Normal Left Flexion (S2) 4+ Good+ Extension (L3) 5 Normal Ankle/Foot Strength Ankle and Foot Manual Muscle Testing Right Dorsiflexion (L4) 2- Poor- Plantarflexion (S1) 3+ Fair+ Left Dorsiflexion (L4) 4+ Good+ Plantarflexion (S1) 5 Normal PT-OP-Q Treatments Start: 09/28/17 15:21 Freq: Status: Active Protocol: Document 12/27/18 10:30 DCW (Rec: 12/27/18 11:10 DCW [id number]) Gym Equipment Therapeutic Ball Bridging Exercise Details Bridging Ball Size/Color Red - 55 cm Body Position Supine Trunk Rotation Exercise Details Trunk rotation /c LE on T-ball Ball Size/Color Red - 55 cm Body Position Supine Therapeutic Exercises Standing Exercises Hip Abduction Standing Exercise Name Abduction Side bilateral Resistance 10# Reps/Minutes x20 Hip Extension Standing Exercise Name Extension Side bilateral Resistance 10# Reps/Minutes x20 Hamstring curls Standing Exercise Name HS curls at rail Side bilateral Resistance 10# Equipment Used ankle weights Reps/Minutes x20 Standing Marching Standing Exercise Name Marching at rail Side bilateral Resistance 10# Equipment Used ankle weights Reps/Minutes x25 Gait Training Gait Activity 3 Device Used 4WW Level of Assistance SBA Distance/Duration 700' Treatment Focus Increased gait distance/ tolerance 2 Description Ambulation /s AD Device Used 4WW Level of Assistance CGA Distance/Duration 140' x1, 50' x1 Treatment Focus Focus on increased step length , continous movement, arm swing Comments Pt ambulated around gym and avoided obstacles. PT-OP-T Assessment and Plan Start: 09/28/17 15:21 Freq: Status: Active Protocol: Document 12/27/18 10:30 DCW (Rec: 12/27/18 11:10 DCW [id number]) Physical Therapy Assessment Impairments Impairments Activity Tolerance Balance Functional Activities Functional Mobility Gait ROM Strength Goals Eight Impairment Unassisted Gait Short Term Goal (STG) Pt to ambulate 100' SBA /s AD STG Duration Met Equal Opportunity Representative Goal (LTG) Pt to ambulate 200' SBA /s AD LTG Duration 02/23/19 Seven Impairment Donis Short Term Goal (STG) Pt to score 22/56 on Donis Balance scale STG Duration Met [facility] Goal (LTG) Pt to score 35/56 on Donis Balance scale LTG Duration 02/23/19 Six Impairment Static Standing Balance Short Term Goal (STG) Pt to stand independently for 2 minutes STG Duration Met Equal Opportunity Representative Goal (LTG) Pt to stand independently for 3 minutes LTG Duration 02/23/19 - Improving Five Impairment 6 MWT Equal Opportunity Representative Goal (LTG) Pt to ambulate 1000' without rest using 4WW during 6 MWT (09/21/18: 902') LTG Duration 02/23/19 - Improving Four Impairment Foot slap Short Term Goal (STG) Pt to regularly wear R AFO to limit foot drop and help normalize gait pattern STG Duration Met Three Impairment Transfers Short Term Goal (STG) Pt to transfer independently from mat<->w/c with no assistive devices STG Duration Met Two Impairment Ankle weakness Equal Opportunity Representative Goal (LTG) Pt to display 2/5 MMT in R DF, 4/5 MMT in R PF, and 4+/5 MMT in all other bilateral ankle movements LTG Duration 02/23/19 - Improving One Impairment Activity tolerance [facility] Goal (LTG) Pt to tolerate activity up to 15 minutes without a break LTG Duration 02/23/19 - Improving Assessment Summary Assessment Pt doing well with his ambulation, continue to focus on improving ambulation without an AD, and improving ambulation distance with 4WW Physical Therapy Plan Frequency and Duration Frequency of Treatment 2x/Week Duration of Treatment 3 months Plan of Care Start Date 12/23/18 Plan of Care End Date 03/25/19 Therapeutic Interventions Therapeutic Interventions Aquatic Therapy Balance Training Gait Training Home Exercise Program Manual Therapy Neuromuscular Re-education Soft Tissue Mobilization Therapeutic Activities Therapeutic Exercises Next Visit Focus/Plan Next Note Type Treatment Note Next Visit Plan Continue focus on opposing arm swing during gait, increasing activity tolerance, increasing gait /s an AD, and improving balance
--- NOTE | 2018-12-27 11:11 | PT.OTN ---
Current Diagnoses Foot drop, right foot (12/27/18) Muscle weakness (generalized) (12/27/18) Unsteadiness on feet (12/27/18) Unspecified abnormalities of gait and mobility (12/27/18) Traumatic subdural hemorrhage with loss of consciousness greater than 24 hours with return to pre-existing conscious level, subsequent encounter (12/27/18) History of falling (12/27/18) Physical Therapy Treatment Note PT-OP-A Visit Information Start: 09/28/17 15:21 Freq: Status: Active Protocol: Document 12/27/18 10:30 DCW (Rec: 12/27/18 11:10 DCW [id number]) Out-Patient Physical Therapy Visit Information Visit Information Visit Type Treatment Note Visit Start Time 10:30 Visit Stop Time 11:15 Total Visit Minutes 45 Visit Number 2 Number of MACHINE CEMENTER Visits 0 Evaluation Information Evaluation Date 07/27/17 PT-OP-B Current Condition Start: 09/28/17 15:21 Freq: Status: Active Protocol: Document 10/12/17 13:45 DCW (Rec: 10/12/17 18:33 DCW [id number]) Current Condition History of Current Condition Onset Date 02/05/17 History of Current Condition See Pt's initial evaluation in Therapy Source Current Functional Impairments (Reported) Functional Limitations- Mobility/Gait Transfers:W/C<->Mat Stand- pivot: Independent PT-OP-C Subjective Start: 09/28/17 15:21 Freq: Status: Active Protocol: Document 12/27/18 10:30 DCW (Rec: 12/27/18 11:10 DCW [id number]) OP-PT Subjective Patient Comments Patient Comments Pt reports that 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 PT-OP-D Balance Start: 10/12/17 18:11 Freq: Status: Active Protocol: Document 12/23/18 09:45 DCW (Rec: 12/23/18 10:20 DCW [id number]) OP-PT Balance Assessment Standing Balance Standing Balance Comments Double leg, Eyes open: 2' Donis Balance Assessment Evaluation Sitting to Standing Ability Independent w/Hands Unsupported Stance Supervision- 2 minutes Sitting Unsupported, Feet on Floor Safely- 2 minutes Standing to Sitting Ability Assist, Control w/Hands Transfer Ability Safely, Hand Use Unsupported Stance- Eyes Closed 3 seconds Unsupported Stance- Eyes Open Independent, <30 seconds Reaching Forward Standing Safely, 5 inches Pick- Up Object From Floor Supervision Look Behind Shoulder - Standing Turns Sideways Only Turning 360 Degrees Requires Assistance Unsupported Stance, Alternating Feet on 2 Steps w/Minimum Assist Stair Unsupported Tandem Stance Small Step- 30 seconds Unilateral Leg Stance Lifts Leg/Unable to Hold Total Score Donis Total Score (out of 56 points) 32 Donis Impairment Rating 40 to 59% Impaired (Score 23- 33) Mejia Fall Scale Copyright Permission PT-OP-E Functional Tests Start: 10/12/17 18:11 Freq: Status: Active Protocol: Document 12/23/18 09:45 DCW (Rec: 12/23/18 10:02 DCW [id number]) Functional Tests 6 Minute Walk Test Distance 933' Device Used 4WW PT-OP-G Mobility & Gait Start: 12/23/18 10:02 Freq: Status: Active Protocol: Document 12/23/18 09:45 DCW (Rec: 12/23/18 10:20 DCW [id number]) OP Gait Assessment Gait Gait Assistance Required: Contact Guard Assist Distance (Feet) 155 Assistive Devices Assistive Device None Gait Belt Gait Deviations General Gait Pattern Antalgic Ataxic Decreased Stride Length Decreased Feet Clearance Flexed Trunk Lateral Trunk Lean PT-OP-M Strength Start: 10/12/17 18:11 Freq: Status: Active Protocol: Document 12/23/18 09:45 DCW (Rec: 12/23/18 10:02 DCW [id number]) Hip Strength Hip Manual Muscle Testing Right Flexion (L2) 5 Normal Abduction 5 Normal Adduction 5 Normal Left Flexion (L2) 4+ Good+ Abduction 5 Normal Adduction 5 Normal Knee Strength Knee Manual Muscle Testing Right Flexion (S2) 5 Normal Extension (L3) 5 Normal Left Flexion (S2) 4+ Good+ Extension (L3) 5 Normal Ankle/Foot Strength Ankle and Foot Manual Muscle Testing Right Dorsiflexion (L4) 2- Poor- Plantarflexion (S1) 3+ Fair+ Left Dorsiflexion (L4) 4+ Good+ Plantarflexion (S1) 5 Normal PT-OP-Q Treatments Start: 09/28/17 15:21 Freq: Status: Active Protocol: Document 12/27/18 10:30 DCW (Rec: 12/27/18 11:10 DCW [id number]) Gym Equipment Therapeutic Ball Bridging Exercise Details Bridging Ball Size/Color Red - 55 cm Body Position Supine Trunk Rotation Exercise Details Trunk rotation /c LE on T-ball Ball Size/Color Red - 55 cm Body Position Supine Therapeutic Exercises Standing Exercises Hip Abduction Standing Exercise Name Abduction Side bilateral Resistance 10# Reps/Minutes x20 Hip Extension Standing Exercise Name Extension Side bilateral Resistance 10# Reps/Minutes x20 Hamstring curls Standing Exercise Name HS curls at rail Side bilateral Resistance 10# Equipment Used ankle weights Reps/Minutes x20 Standing Marching Standing Exercise Name Marching at rail Side bilateral Resistance 10# Equipment Used ankle weights Reps/Minutes x25 Gait Training Gait Activity 3 Device Used 4WW Level of Assistance SBA Distance/Duration 700' Treatment Focus Increased gait distance/ tolerance 2 Description Ambulation /s AD Device Used 4WW Level of Assistance CGA Distance/Duration 140' x1, 50' x1 Treatment Focus Focus on increased step length , continous movement, arm swing Comments Pt ambulated around gym and avoided obstacles. PT-OP-T Assessment and Plan Start: 09/28/17 15:21 Freq: Status: Active Protocol: Document 12/27/18 10:30 DCW (Rec: 12/27/18 11:10 DCW [id number]) Physical Therapy Assessment Impairments Impairments Activity Tolerance Balance Functional Activities Functional Mobility Gait ROM Strength Goals Eight Impairment Unassisted Gait Short Term Goal (STG) Pt to ambulate 100' SBA /s AD STG Duration Met [employer] Goal (LTG) Pt to ambulate 200' SBA /s AD LTG Duration 02/23/19 Seven Impairment Donis Short Term Goal (STG) Pt to score 22/56 on Donis Balance scale STG Duration Met [facility] Goal (LTG) Pt to score 35/56 on Donis Balance scale LTG Duration 02/23/19 Six Impairment Static Standing Balance Short Term Goal (STG) Pt to stand independently for 2 minutes STG Duration Met [employer] Goal (LTG) Pt to stand independently for 3 minutes LTG Duration 02/23/19 - Improving Five Impairment 6 MWT [employer] Business [employer] Goal (LTG) Pt to ambulate 1000' without rest using 4WW during 6 MWT (09/21/18: 902') LTG Duration 02/23/19 - Improving Four Impairment Foot slap Short Term Goal (STG) Pt to regularly wear R AFO to limit foot drop and help normalize gait pattern STG Duration Met Three Impairment Transfers Short Term Goal (STG) Pt to transfer independently from mat<->w/c with no assistive devices STG Duration Met Two Impairment Ankle weakness [employer] Business Manager Goal (LTG) Pt to display 2/5 MMT in R DF, 4/5 MMT in R PF, and 4+/5 MMT in all other bilateral ankle movements LTG Duration 02/23/19 - Improving One Impairment Activity tolerance [facility] Goal (LTG) Pt to tolerate activity up to 15 minutes without a break LTG Duration 02/23/19 - Improving Assessment Summary Assessment Pt doing well with his ambulation, continue to focus on improving ambulation without an AD, and improving ambulation distance with 4WW Physical Therapy Plan Frequency and Duration Frequency of Treatment 2x/Week Duration of Treatment 3 months Plan of Care Start Date 12/23/18 Plan of Care End Date 03/25/19 Therapeutic Interventions Therapeutic Interventions Aquatic Therapy Balance Training Gait Training Home Exercise Program Manual Therapy Neuromuscular Re-education Soft Tissue Mobilization Therapeutic Activities Therapeutic Exercises Next Visit Focus/Plan Next Note Type Treatment Note Next Visit Plan Continue focus on opposing arm swing during gait, increasing activity tolerance, increasing gait /s an AD, and improving balance
--- NOTE | 2019-01-03 11:11 | PT.OTN ---
Current Diagnoses Foot drop, right foot (01/03/19) Muscle weakness (generalized) (01/03/19) Unsteadiness on feet (01/03/19) Unspecified abnormalities of gait and mobility (01/03/19) Traumatic subdural hemorrhage with loss of consciousness greater than 24 hours with return to pre-existing conscious level, subsequent encounter (01/03/19) History of falling (01/03/19) Physical Therapy Treatment Note PT-OP-A Visit Information Start: 09/28/17 15:21 Freq: Status: Active Protocol: Document 01/03/19 10:30 DCW (Rec: 01/03/19 11:08 DCW [id number]) Out-Patient Physical Therapy Visit Information Visit Information Visit Type Treatment Note Visit Start Time 10:30 Visit Stop Time 11:15 Total Visit Minutes 45 Visit Number 3 Number of RIB SAWYER Visits 0 Evaluation Information Evaluation Date 07/27/17 PT-OP-B Current Condition Start: 09/28/17 15:21 Freq: Status: Active Protocol: Document 10/12/17 13:45 DCW (Rec: 10/12/17 18:33 DCW [id number]) Current Condition History of Current Condition Onset Date 02/05/17 History of Current Condition See Pt's initial evaluation in Therapy Source Current Functional Impairments (Reported) Functional Limitations- Mobility/Gait Transfers:W/C<->Mat Stand- pivot: Independent PT-OP-C Subjective Start: 09/28/17 15:21 Freq: Status: Active Protocol: Document 01/03/19 10:30 DCW (Rec: 01/03/19 11:08 DCW [id number]) OP-PT Subjective Patient Comments Patient Comments Pt reports he is feeling good today. PT-OP-D Balance Start: 10/12/17 18:11 Freq: Status: Active Protocol: Document 12/23/18 09:45 DCW (Rec: 12/23/18 10:20 DCW [id number]) OP-PT Balance Assessment Standing Balance Standing Balance Comments Double leg, Eyes open: 2 Donis Balance Assessment Evaluation Sitting to Standing Ability Independent w/Hands Unsupported Stance Supervision- 2 minutes Sitting Unsupported, Feet on Floor Safely- 2 minutes Standing to Sitting Ability Assist, Control w/Hands Transfer Ability Safely, Hand Use Unsupported Stance- Eyes Closed 3 seconds Unsupported Stance- Eyes Open Independent, <30 seconds Reaching Forward Standing Safely, 5 inches Pick- Up Object From Floor Supervision Look Behind Shoulder - Standing Turns Sideways Only Turning 360 Degrees Requires Assistance Unsupported Stance, Alternating Feet on 2 Steps w/Minimum Assist Stair Unsupported Tandem Stance Small Step- 30 seconds Unilateral Leg Stance Lifts Leg/Unable to Hold Total Score Donis Total Score (out of 56 points) 32 Donis Impairment Rating 40 to 59% Impaired (Score 23- 33) Mejia Fall Scale Copyright Permission PT-OP-E Functional Tests Start: 10/12/17 18:11 Freq: Status: Active Protocol: Document 12/23/18 09:45 DCW (Rec: 12/23/18 10:02 DCW [id number]) Functional Tests 6 Minute Walk Test Distance 933' Device Used 4WW PT-OP-G Mobility & Gait Start: 12/23/18 10:02 Freq: Status: Active Protocol: Document 12/23/18 09:45 DCW (Rec: 12/23/18 10:20 DCW [id number]) OP Gait Assessment Gait Gait Assistance Required: Contact Guard Assist Distance (Feet) 155 Assistive Devices Assistive Device None Gait Belt Gait Deviations General Gait Pattern Antalgic Ataxic Decreased Stride Length Decreased Feet Clearance Flexed Trunk Lateral Trunk Lean PT-OP-M Strength Start: 10/12/17 18:11 Freq: Status: Active Protocol: Document 12/23/18 09:45 DCW (Rec: 12/23/18 10:02 DCW [id number]) Hip Strength Hip Manual Muscle Testing Right Flexion (L2) 5 Normal Abduction 5 Normal Adduction 5 Normal Left Flexion (L2) 4+ Good+ Abduction 5 Normal Adduction 5 Normal Knee Strength Knee Manual Muscle Testing Right Flexion (S2) 5 Normal Extension (L3) 5 Normal Left Flexion (S2) 4+ Good+ Extension (L3) 5 Normal Ankle/Foot Strength Ankle and Foot Manual Muscle Testing Right Dorsiflexion (L4) 2- Poor- Plantarflexion (S1) 3+ Fair+ Left Dorsiflexion (L4) 4+ Good+ Plantarflexion (S1) 5 Normal PT-OP-Q Treatments Start: 09/28/17 15:21 Freq: Status: Active Protocol: Document 01/03/19 10:30 DCW (Rec: 01/03/19 11:08 DCW [id number]) Gym Equipment Shuttle Balance 1 Details Blue - Wide WILIAN Therapeutic Ball Hip/knee Flexion Exercise Details Resisted hip/knee flexion /c feet on ball Ball Size/Color Red - 55 cm Lv 3 T-band Body Position Supine Bridging Exercise Details Bridging Ball Size/Color Red - 55 cm Body Position Supine Trunk Rotation Exercise Details Trunk rotation /c LE on T-ball Ball Size/Color Red - 55 cm Body Position Supine Gait Training Gait Activity 3 Device Used 4WW Level of Assistance SBA Distance/Duration 510' Treatment Focus Increased gait distance/ tolerance 2 Description Ambulation /s AD Device Used none Level of Assistance CGA Distance/Duration 190' x1 Treatment Focus Focus on increased step length , continous movement, arm swing Comments Pt ambulated around gym and avoided obstacles. PT-OP-T Assessment and Plan Start: 09/28/17 15:21 Freq: Status: Active Protocol: Document 01/03/19 10:30 DCW (Rec: 01/03/19 11:08 DCW [id number]) Physical Therapy Assessment Impairments Impairments Activity Tolerance Balance Functional Activities Functional Mobility Gait ROM Strength Goals Eight Impairment Unassisted Gait Short Term Goal (STG) Pt to ambulate 100' SBA /s AD STG Duration Met [employer] Driver Goal (LTG) Pt to ambulate 200' SBA /s AD LTG Duration 02/23/19 Seven Impairment Donis Short Term Goal (STG) Pt to score 22/56 on Donis Balance scale STG Duration Met Detention Goal (LTG) Pt to score 35/56 on Donis Balance scale LTG Duration 02/23/19 Six Impairment Static Standing Balance Short Term Goal (STG) Pt to stand independently for 2 minutes STG Duration Met Detention Goal (LTG) Pt to stand independently for 3 minutes LTG Duration 02/23/19 - Improving Five Impairment 6 MWT Detention Goal (LTG) Pt to ambulate 1000' without rest using 4WW during 6 MWT (09/21/18: 902') LTG Duration 02/23/19 - Improving Four Impairment Foot slap Short Term Goal (STG) Pt to regularly wear R AFO to limit foot drop and help normalize gait pattern STG Duration Met Three Impairment Transfers Short Term Goal (STG) Pt to transfer independently from mat<->w/c with no assistive devices STG Duration Met Two Impairment Ankle weakness Detention Goal (LTG) Pt to display 2/5 MMT in R DF, 4/5 MMT in R PF, and 4+/5 MMT in all other bilateral ankle movements LTG Duration 02/23/19 - Improving One Impairment Activity tolerance Detention Goal (LTG) Pt to tolerate activity up to 15 minutes without a break LTG Duration 02/23/19 - Improving Assessment Summary Assessment Pt walked his farthest distance today with no assistive device at once, going 190' without a rest break. Physical Therapy Plan Frequency and Duration Frequency of Treatment 2x/Week Duration of Treatment 3 months Plan of Care Start Date 12/23/18 Plan of Care End Date 03/25/19 Therapeutic Interventions Therapeutic Interventions Aquatic Therapy Balance Training Gait Training Home Exercise Program Manual Therapy Neuromuscular Re-education Soft Tissue Mobilization Therapeutic Activities Therapeutic Exercises Next Visit Focus/Plan Next Note Type Treatment Note Next Visit Plan Continue focus on opposing arm swing during gait, increasing activity tolerance, increasing gait /s an AD, and improving balance
--- NOTE | 2019-01-06 13:29 | PT.OTN ---
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 with return to pre-existing conscious level, subsequent encounter (01/06/19) History of falling (01/06/19) Physical Therapy Treatment Note PT-OP-A Visit Information Start: 09/28/17 15:21 Freq: Status: Active Protocol: Document 01/06/19 10:30 DCW (Rec: 01/06/19 13:29 DCW [id number]) Out-Patient Physical Therapy Visit Information Visit Information Visit Type Treatment Note Visit Start Time 10:30 Visit Stop Time 11:15 Total Visit Minutes 45 Visit Number 4/ Number of INDUSTRIAL SERVICE TECHNICIAN Visits 0 Evaluation Information Evaluation Date 07/27/17 PT-OP-B Current Condition Start: 09/28/17 15:21 Freq: Status: Active Protocol: Document 10/12/17 13:45 DCW (Rec: 10/12/17 18:33 DCW [id number]) Current Condition History of Current Condition Onset Date 02/05/17 History of Current Condition See Pt's initial evaluation in Therapy Source Current Functional Impairments (Reported) Functional Limitations- Mobility/Gait Transfers:W/C<->Mat Stand- pivot: Independent PT-OP-C Subjective Start: 09/28/17 15:21 Freq: Status: Active Protocol: Document 01/06/19 10:30 DCW (Rec: 01/06/19 13:29 DCW [id number]) OP-PT Subjective Patient Comments Patient Comments Pt is feeling great this morning, wants to work on walking with a longer step length. PT-OP-D Balance Start: 10/12/17 18:11 Freq: Status: Active Protocol: Document 12/23/18 09:45 DCW (Rec: 12/23/18 10:20 DCW [id number]) OP-PT Balance Assessment Standing Balance Standing Balance Comments Double leg, Eyes open: 2'17 Donis Balance Assessment Evaluation Sitting to Standing Ability Independent w/Hands Unsupported Stance Supervision- 2 minutes Sitting Unsupported, Feet on Floor Safely- 2 minutes Standing to Sitting Ability Assist, Control w/Hands Transfer Ability Safely, Hand Use Unsupported Stance- Eyes Closed 3 seconds Unsupported Stance- Eyes Open Independent, <30 seconds Reaching Forward Standing Safely, 5 inches Pick- Up Object From Floor Supervision Look Behind Shoulder - Standing Turns Sideways Only Turning 360 Degrees Requires Assistance Unsupported Stance, Alternating Feet on 2 Steps w/Minimum Assist Stair Unsupported Tandem Stance Small Step- 30 seconds Unilateral Leg Stance Lifts Leg/Unable to Hold Total Score Donis Total Score (out of 56 points) 32 Donis Impairment Rating 40 to 59% Impaired (Score 23- 33) Mejia Fall Scale Copyright Permission PT-OP-E Functional Tests Start: 10/12/17 18:11 Freq: Status: Active Protocol: Document 12/23/18 09:45 DCW (Rec: 12/23/18 10:02 DCW [id number]) Functional Tests 6 Minute Walk Test Distance 933' Device Used 4WW PT-OP-G Mobility & Gait Start: 12/23/18 10:02 Freq: Status: Active Protocol: Document 12/23/18 09:45 DCW (Rec: 12/23/18 10:20 DCW [id number]) OP Gait Assessment Gait Gait Assistance Required: Contact Guard Assist Distance (Feet) 155 Assistive Devices Assistive Device None Gait Belt Gait Deviations General Gait Pattern Antalgic Ataxic Decreased Stride Length Decreased Feet Clearance Flexed Trunk Lateral Trunk Lean PT-OP-M Strength Start: 10/12/17 18:11 Freq: Status: Active Protocol: Document 12/23/18 09:45 DCW (Rec: 12/23/18 10:02 DCW [id number]) Hip Strength Hip Manual Muscle Testing Right Flexion (L2) 5 Normal Abduction 5 Normal Adduction 5 Normal Left Flexion (L2) 4+ Good+ Abduction 5 Normal Adduction 5 Normal Knee Strength Knee Manual Muscle Testing Right Flexion (S2) 5 Normal Extension (L3) 5 Normal Left Flexion (S2) 4+ Good+ Extension (L3) 5 Normal Ankle/Foot Strength Ankle and Foot Manual Muscle Testing Right Dorsiflexion (L4) 2- Poor- Plantarflexion (S1) 3+ Fair+ Left Dorsiflexion (L4) 4+ Good+ Plantarflexion (S1) 5 Normal PT-OP-Q Treatments Start: 09/28/17 15:21 Freq: Status: Active Protocol: Document 01/06/19 10:30 DCW (Rec: 01/06/19 13:29 DC [id number]) Gym Equipment Therapeutic Ball Hip/knee Flexion Exercise Details Resisted hip/knee flexion /c feet on ball Ball Size/Color Red - 55 cm Lv 3 T-band Body Position Supine Bridging Exercise Details Bridging Ball Size/Color Red - 55 cm Body Position Supine Trunk Rotation Exercise Details Trunk rotation /c LE on T-ball Ball Size/Color Red - 55 cm Body Position Supine Gait Training Gait Activity 3 Device Used 4WW Level of Assistance SBA Distance/Duration 510' Treatment Focus Increased gait distance/ tolerance 2 Description Ambulation /s AD Device Used none Level of Assistance CGA Distance/Duration 50' x1, 140' x1 Treatment Focus Focus on increased step length , continous movement, arm swing Comments Pt ambulated around gym and avoided obstacles. PT-OP-T Assessment and Plan Start: 09/28/17 15:21 Freq: Status: Active Protocol: Document 01/06/19 10:30 DCW (Rec: 01/06/19 13:29 [facility] [id number]) Physical Therapy Assessment Impairments Impairments Activity Tolerance Balance Functional Activities Functional Mobility Gait ROM Strength Goals Eight Impairment Unassisted Gait Short Term Goal (STG) Pt to ambulate 100' SBA /s AD STG Duration Met Director Of Food And Nutrition Goal (LTG) Pt to ambulate 200' SBA /s AD LTG Duration 02/23/19 Seven Impairment Donis Short Term Goal (STG) Pt to score 22/56 on Donis Balance scale STG Duration Met Correction Goal (LTG) Pt to score 35/56 on Donis Balance scale LTG Duration 02/23/19 Six Impairment Static Standing Balance Short Term Goal (STG) Pt to stand independently for 2 minutes STG Duration Met Correction Goal (LTG) Pt to stand independently for 3 minutes LTG Duration 02/23/19 - Improving Five Impairment 6 MWT Correction Goal (LTG) Pt to ambulate 1000' without rest using 4WW during 6 MWT (09/21/18: 902') LTG Duration 02/23/19 - Improving Four Impairment Foot slap Short Term Goal (STG) Pt to regularly wear R AFO to limit foot drop and help normalize gait pattern STG Duration Met Three Impairment Transfers Short Term Goal (STG) Pt to transfer independently from mat<->w/c with no assistive devices STG Duration Met Two Impairment Ankle weakness Correction Goal (LTG) Pt to display 2/5 MMT in R DF, 4/5 MMT in R PF, and 4+/5 MMT in all other bilateral ankle movements LTG Duration 02/23/19 - Improving One Impairment Activity tolerance Director Of Food And Nutrition Goal (LTG) Pt to tolerate activity up to 15 minutes without a break LTG Duration 02/23/19 - Improving Assessment Summary Assessment Pt walked very well without an assistive device for the first 50', with great stability and step length, but then lost his balance and needed to be stabilized by the therapist and sat to take a quick break. Pt the was able to get up and complete the lap with no difficulty. Physical Therapy Plan Frequency and Duration Frequency of Treatment 2x/Week Duration of Treatment 3 months Plan of Care Start Date 12/23/18 Plan of Care End Date 03/25/19 Therapeutic Interventions Therapeutic Interventions Aquatic Therapy Balance Training Gait Training Home Exercise Program Manual Therapy Neuromuscular Re-education Soft Tissue Mobilization Therapeutic Activities Therapeutic Exercises Next Visit Focus/Plan Next Note Type Treatment Note Next Visit Plan Continue focus on opposing arm swing during gait, increasing activity tolerance, increasing gait /s an AD, and improving balance
--- NOTE | 2019-01-10 14:28 | PT.OTN ---
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 with return to pre-existing conscious level, subsequent encounter (01/10/19) History of falling (01/10/19) Physical Therapy Treatment Note PT-OP-A Visit Information Start: 09/28/17 15:21 Freq: Status: Active Protocol: Document 01/10/19 13:45 DCW (Rec: 01/10/19 14:28 DCW [id number]) Out-Patient Physical Therapy Visit Information Visit Information Visit Type Treatment Note Visit Start Time 13:45 Visit Stop Time 14:30 Total Visit Minutes 45 Visit Number 5/10 Number of FEDERAL JAVA DEVELOPER Visits 0 Evaluation Information Evaluation Date 07/27/17 PT-OP-B Current Condition Start: 09/28/17 15:21 Freq: Status: Active Protocol: Document 10/12/17 13:45 DCW (Rec: 10/12/17 18:33 DCW [id number]) Current Condition History of Current Condition Onset Date 02/05/17 History of Current Condition See Pt's initial evaluation in Therapy Source Current Functional Impairments (Reported) Functional Limitations- Mobility/Gait Transfers:W/C<->Mat Stand- pivot: Independent PT-OP-C Subjective Start: 09/28/17 15:21 Freq: Status: Active Protocol: Document 01/10/19 13:45 DCW (Rec: 01/10/19 14:28 DCW [id number]) OP-PT Subjective Patient Comments Patient Comments I'm not sure how well I'm going to do. I'm pretty worthless after noon. PT-OP-D Balance Start: 10/12/17 18:11 Freq: Status: Active Protocol: Document 12/23/18 09:45 DCW (Rec: 12/23/18 10:20 DCW [id number]) OP-PT Balance Assessment Standing Balance Standing Balance Comments Double leg, Eyes open: 2'17 Donis Balance Assessment Evaluation Sitting to Standing Ability Independent w/Hands Unsupported Stance Supervision- 2 minutes Sitting Unsupported, Feet on Floor Safely- 2 minutes Standing to Sitting Ability Assist, Control w/Hands Transfer Ability Safely, Hand Use Unsupported Stance- Eyes Closed 3 seconds Unsupported Stance- Eyes Open Independent, <30 seconds Reaching Forward Standing Safely, 5 inches Pick- Up Object From Floor Supervision Look Behind Shoulder - Standing Turns Sideways Only Turning 360 Degrees Requires Assistance Unsupported Stance, Alternating Feet on 2 Steps w/Minimum Assist Stair Unsupported Tandem Stance Small Step- 30 seconds Unilateral Leg Stance Lifts Leg/Unable to Hold Total Score Donis Total Score (out of 56 points) 32 Donis Impairment Rating 40 to 59% Impaired (Score 23- 33) Mejia Fall Scale Copyright Permission PT-OP-E Functional Tests Start: 10/12/17 18:11 Freq: Status: Active Protocol: Document 12/23/18 09:45 DCW (Rec: 12/23/18 10:02 DCW [id number]) Functional Tests 6 Minute Walk Test Distance 933' Device Used 4WW PT-OP-G Mobility & Gait Start: 12/23/18 10:02 Freq: Status: Active Protocol: Document 12/23/18 09:45 DCW (Rec: 12/23/18 10:20 DCW [id number]) OP Gait Assessment Gait Gait Assistance Required: Contact Guard Assist Distance (Feet) 155 Assistive Devices Assistive Device None Gait Belt Gait Deviations General Gait Pattern Antalgic Ataxic Decreased Stride Length Decreased Feet Clearance Flexed Trunk Lateral Trunk Lean PT-OP-M Strength Start: 10/12/17 18:11 Freq: Status: Active Protocol: Document 12/23/18 09:45 DCW (Rec: 12/23/18 10:02 DCW [id number]) Hip Strength Hip Manual Muscle Testing Right Flexion (L2) 5 Normal Abduction 5 Normal Adduction 5 Normal Left Flexion (L2) 4+ Good+ Abduction 5 Normal Adduction 5 Normal Knee Strength Knee Manual Muscle Testing Right Flexion (S2) 5 Normal Extension (L3) 5 Normal Left Flexion (S2) 4+ Good+ Extension (L3) 5 Normal Ankle/Foot Strength Ankle and Foot Manual Muscle Testing Right Dorsiflexion (L4) 2- Poor- Plantarflexion (S1) 3+ Fair+ Left Dorsiflexion (L4) 4+ Good+ Plantarflexion (S1) 5 Normal PT-OP-Q Treatments Start: 09/28/17 15:21 Freq: Status: Active Protocol: Document 01/10/19 13:45 DCW (Rec: 01/10/19 14:28 DCW [id number]) Cardio Equipment Recumbent Elliptical (Biodex) Duration (Minutes) 6 Resistance 4 Seat Position 12 Other >40 rpm Gym Equipment Shuttle Recovery Bilateral Squats Resistance 187# Shuttle Recovery Platform Stable Reps/Time x30 Therapeutic Exercises Standing Exercises Hip Abduction Standing Exercise Name Abduction Side bilateral Resistance 10# Reps/Minutes x20 Hip Extension Standing Exercise Name Extension Side bilateral Resistance 10# Reps/Minutes x20 Hamstring curls Standing Exercise Name HS curls at rail Side bilateral Resistance 10# Equipment Used ankle weights Reps/Minutes x20 Standing Marching Standing Exercise Name Marching at rail Side bilateral Resistance 10# Equipment Used ankle weights Reps/Minutes x25 Gait Training Gait Activity 3 Device Used 4WW Level of Assistance SBA Distance/Duration 510' Treatment Focus Increased gait distance/ tolerance 2 Description Ambulation /s AD Device Used none Level of Assistance CGA Distance/Duration 155' x1, 50' x1 Treatment Focus Focus on increased step length , continous movement, arm swing Comments Pt ambulated around gym and avoided obstacles. PT-OP-T Assessment and Plan Start: 09/28/17 15:21 Freq: Status: Active Protocol: Document 01/10/19 13:45 DCW (Rec: 01/10/19 14:28 DCW [id number]) Physical Therapy Assessment Impairments Impairments Activity Tolerance Balance Functional Activities Functional Mobility Gait ROM Strength Goals Eight Impairment Unassisted Gait Short Term Goal (STG) Pt to ambulate 100' SBA /s AD STG Duration Met Criminal Justice Teacher Goal (LTG) Pt to ambulate 200' SBA /s AD LTG Duration 02/23/19 Seven Impairment Donis Short Term Goal (STG) Pt to score 22/56 on Donis Balance scale STG Duration Met Usp Goal (LTG) Pt to score 35/56 on Donis Balance scale LTG Duration 02/23/19 Six Impairment Static Standing Balance Short Term Goal (STG) Pt to stand independently for 2 minutes STG Duration Met Criminal Justice Teacher Goal (LTG) Pt to stand independently for 3 minutes LTG Duration 02/23/19 - Improving Five Impairment 6 MWT Usp Goal (LTG) Pt to ambulate 1000' without rest using 4WW during 6 MWT (09/21/18: 902') LTG Duration 02/23/19 - Improving Four Impairment Foot slap Short Term Goal (STG) Pt to regularly wear R AFO to limit foot drop and help normalize gait pattern STG Duration Met Three Impairment Transfers Short Term Goal (STG) Pt to transfer independently from mat<->w/c with no assistive devices STG Duration Met Two Impairment Ankle weakness Usp Goal (LTG) Pt to display 2/5 MMT in R DF, 4/5 MMT in R PF, and 4+/5 MMT in all other bilateral ankle movements LTG Duration 02/23/19 - Improving One Impairment Activity tolerance Criminal Justice Teacher Goal (LTG) Pt to tolerate activity up to 15 minutes without a break LTG Duration 02/23/19 - Improving Assessment Summary Assessment Pt able to ambulate for 205' total, which is the farthest he has gone without an assistive device. Physical Therapy Plan Frequency and Duration Frequency of Treatment 2x/Week Duration of Treatment 3 months Plan of Care Start Date 12/23/18 Plan of Care End Date 03/25/19 Therapeutic Interventions Therapeutic Interventions Aquatic Therapy Balance Training Gait Training Home Exercise Program Manual Therapy Neuromuscular Re-education Soft Tissue Mobilization Therapeutic Activities Therapeutic Exercises Next Visit Focus/Plan Next Note Type Treatment Note Next Visit Plan Continue focus on opposing arm swing during gait, increasing activity tolerance, increasing gait /s an AD, and improving balance
--- NOTE | 2019-01-13 10:26 | PT.OTN ---
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 with return to pre-existing conscious level, subsequent encounter (01/13/19) History of falling (01/13/19) Physical Therapy Treatment Note PT-OP-A Visit Information Start: 09/28/17 15:21 Freq: Status: Active Protocol: Document 01/13/19 09:45 DCW (Rec: 01/13/19 10:25 DCW [id number]) Out-Patient Physical Therapy Visit Information Visit Information Visit Type Treatment Note Visit Start Time 09:45 Visit Stop Time 10:30 Total Visit Minutes 45 Visit Number 11/07 Number of NETWORK AND THREAT SUPPORT SPECIALIST Visits 0 Evaluation Information Evaluation Date 07/27/17 PT-OP-B Current Condition Start: 09/28/17 15:21 Freq: Status: Active Protocol: Document 10/12/17 13:45 DCW (Rec: 10/12/17 18:33 DCW [id number]) Current Condition History of Current Condition Onset Date 02/05/17 History of Current Condition See Pt's initial evaluation in Therapy Source Current Functional Impairments (Reported) Functional Limitations- Mobility/Gait Transfers:W/C<->Mat Stand- pivot: Independent PT-OP-C Subjective Start: 09/28/17 15:21 Freq: Status: Active Protocol: Document 01/13/19 09:45 DCW (Rec: 01/13/19 10:25 DCW [id number]) OP-PT Subjective Patient Comments Patient Comments I always tell you, I just never know if it's going to be a good day or not when I come in here. PT-OP-D Balance Start: 10/12/17 18:11 Freq: Status: Active Protocol: Document 12/23/18 09:45 DCW (Rec: 12/23/18 10:20 DCW [id number]) OP-PT Balance Assessment Standing Balance Standing Balance Comments Double leg, Eyes open: 2'17 Donis Balance Assessment Evaluation Sitting to Standing Ability Independent w/Hands Unsupported Stance Supervision- 2 minutes Sitting Unsupported, Feet on Floor Safely- 2 minutes Standing to Sitting Ability Assist, Control w/Hands Transfer Ability Safely, Hand Use Unsupported Stance- Eyes Closed 3 seconds Unsupported Stance- Eyes Open Independent, <30 seconds Reaching Forward Standing Safely, 5 inches Pick- Up Object From Floor Supervision Look Behind Shoulder - Standing Turns Sideways Only Turning 360 Degrees Requires Assistance Unsupported Stance, Alternating Feet on 2 Steps w/Minimum Assist Stair Unsupported Tandem Stance Small Step- 30 seconds Unilateral Leg Stance Lifts Leg/Unable to Hold Total Score Donis Total Score (out of 56 points) 32 Donis Impairment Rating 40 to 59% Impaired (Score 23- 33) Mejia Fall Scale Copyright Permission PT-OP-E Functional Tests Start: 10/12/17 18:11 Freq: Status: Active Protocol: Document 12/23/18 09:45 DCW (Rec: 12/23/18 10:02 DCW [id number]) Functional Tests 6 Minute Walk Test Distance 933' Device Used 4WW PT-OP-G Mobility & Gait Start: 12/23/18 10:02 Freq: Status: Active Protocol: Document 12/23/18 09:45 DCW (Rec: 12/23/18 10:20 DCW [id number]) OP Gait Assessment Gait Gait Assistance Required: Contact Guard Assist Distance (Feet) 155 Assistive Devices Assistive Device None Gait Belt Gait Deviations General Gait Pattern Antalgic Ataxic Decreased Stride Length Decreased Feet Clearance Flexed Trunk Lateral Trunk Lean PT-OP-M Strength Start: 10/12/17 18:11 Freq: Status: Active Protocol: Document 12/23/18 09:45 DCW (Rec: 12/23/18 10:02 DCW [id number]) Hip Strength Hip Manual Muscle Testing Right Flexion (L2) 5 Normal Abduction 5 Normal Adduction 5 Normal Left Flexion (L2) 4+ Good+ Abduction 5 Normal Adduction 5 Normal Knee Strength Knee Manual Muscle Testing Right Flexion (S2) 5 Normal Extension (L3) 5 Normal Left Flexion (S2) 4+ Good+ Extension (L3) 5 Normal Ankle/Foot Strength Ankle and Foot Manual Muscle Testing Right Dorsiflexion (L4) 2- Poor- Plantarflexion (S1) 3+ Fair+ Left Dorsiflexion (L4) 4+ Good+ Plantarflexion (S1) 5 Normal PT-OP-Q Treatments Start: 09/28/17 15:21 Freq: Status: Active Protocol: Document 01/13/19 09:45 DCW (Rec: 01/13/19 10:25 DCW [id number]) Gym Equipment Shuttle Recovery Bilateral Heel Raises Resistance 137# Reps/Time x60 Unilateral Squats Resistance 112# Shuttle Recovery Platform Stable Reps/Time x20 each Bilateral Squats Resistance 187# Shuttle Recovery Platform Stable Reps/Time x30 Therapeutic Exercises Standing Exercises Hip Abduction Standing Exercise Name Abduction Side bilateral Resistance 10# Reps/Minutes x20 Hip Extension Standing Exercise Name Extension Side bilateral Resistance 10# Reps/Minutes x20 Hamstring curls Standing Exercise Name HS curls at rail Side bilateral Resistance 10# Equipment Used ankle weights Reps/Minutes x20 Standing Marching Standing Exercise Name Marching at rail Side bilateral Resistance 10# Equipment Used ankle weights Reps/Minutes x25 Gait Training Gait Activity 3 Device Used 4WW Level of Assistance SBA Distance/Duration 680' Treatment Focus Increased gait distance/ tolerance 2 Description Ambulation /s AD Device Used none Level of Assistance CGA Distance/Duration 200' x1 Treatment Focus Focus on increased step length , continous movement, arm swing Comments Pt ambulated around gym and avoided obstacles. PT-OP-T Assessment and Plan Start: 09/28/17 15:21 Freq: Status: Active Protocol: Document 01/13/19 09:45 DCW (Rec: 01/13/19 10:25 DCW [id number]) Physical Therapy Assessment Impairments Impairments Activity Tolerance Balance Functional Activities Functional Mobility Gait ROM Strength Goals Eight Impairment Unassisted Gait Short Term Goal (STG) Pt to ambulate 100' SBA /s AD STG Duration Met Care Home Goal (LTG) Pt to ambulate 200' SBA /s AD LTG Duration 02/23/19 Seven Impairment Donis Short Term Goal (STG) Pt to score 22/56 on Donis Balance scale STG Duration Met Paint Department Supervisor Goal (LTG) Pt to score 35/56 on Donis Balance scale LTG Duration 02/23/19 Six Impairment Static Standing Balance Short Term Goal (STG) Pt to stand independently for 2 minutes STG Duration Met Paint Department Supervisor Goal (LTG) Pt to stand independently for 3 minutes LTG Duration 02/23/19 - Improving Five Impairment 6 MWT Care Home Goal (LTG) Pt to ambulate 1000' without rest using 4WW during 6 MWT (09/21/18: 902') LTG Duration 02/23/19 - Improving Four Impairment Foot slap Short Term Goal (STG) Pt to regularly wear R AFO to limit foot drop and help normalize gait pattern STG Duration Met Three Impairment Transfers Short Term Goal (STG) Pt to transfer independently from mat<->w/c with no assistive devices STG Duration Met Two Impairment Ankle weakness Care Home Goal (LTG) Pt to display 2/5 MMT in R DF, 4/5 MMT in R PF, and 4+/5 MMT in all other bilateral ankle movements LTG Duration 02/23/19 - Improving One Impairment Activity tolerance Paint Department Supervisor Goal (LTG) Pt to tolerate activity up to 15 minutes without a break LTG Duration 02/23/19 - Improving Assessment Summary Assessment Pt not only ambulated 200' in one attempt without an AD, which is his farthest distance without a break, he also did it with his fastest joan and most appropriate step length over the entire length. Physical Therapy Plan Frequency and Duration Frequency of Treatment 2x/Week Duration of Treatment 3 months Plan of Care Start Date 12/23/18 Plan of Care End Date 03/25/19 Therapeutic Interventions Therapeutic Interventions Aquatic Therapy Balance Training Gait Training Home Exercise Program Manual Therapy Neuromuscular Re-education Soft Tissue Mobilization Therapeutic Activities Therapeutic Exercises Next Visit Focus/Plan Next Note Type Treatment Note Next Visit Plan Continue focus on opposing arm swing during gait, increasing activity tolerance, increasing gait /s an AD, and improving balance
--- NOTE | 2019-01-17 10:29 | PT.OTN ---
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 with return to pre-existing conscious level, subsequent encounter (01/17/19) History of falling (01/17/19) Physical Therapy Treatment Note PT-OP-A Visit Information Start: 09/28/17 15:21 Freq: Status: Active Protocol: Document 01/17/19 09:45 DCW (Rec: 01/17/19 10:28 DCW [id number]) Out-Patient Physical Therapy Visit Information Visit Information Visit Type Treatment Note Visit Start Time 09:45 Visit Stop Time 10:30 Total Visit Minutes 45 Visit Number 12/07 Number of SALOONKEEPER Visits 0 Evaluation Information Evaluation Date 07/27/17 PT-OP-B Current Condition Start: 09/28/17 15:21 Freq: Status: Active Protocol: Document 10/12/17 13:45 DCW (Rec: 10/12/17 18:33 DCW [id number]) Current Condition History of Current Condition Onset Date 02/05/17 History of Current Condition See Pt's initial evaluation in Therapy Source Current Functional Impairments (Reported) Functional Limitations- Mobility/Gait Transfers:W/C<->Mat Stand- pivot: Independent PT-OP-C Subjective Start: 09/28/17 15:21 Freq: Status: Active Protocol: Document 01/17/19 09:45 DCW (Rec: 01/17/19 10:28 DCW [id number]) OP-PT Subjective Patient Comments Patient Comments I think I'm doing alright today. PT-OP-D Balance Start: 10/12/17 18:11 Freq: Status: Active Protocol: Document 12/23/18 09:45 DCW (Rec: 12/23/18 10:20 DCW [id number]) OP-PT Balance Assessment Standing Balance Standing Balance Comments Double leg, Eyes open: 2 Donis Balance Assessment Evaluation Sitting to Standing Ability Independent w/Hands Unsupported Stance Supervision- 2 minutes Sitting Unsupported, Feet on Floor Safely- 2 minutes Standing to Sitting Ability Assist, Control w/Hands Transfer Ability Safely, Hand Use Unsupported Stance- Eyes Closed 3 seconds Unsupported Stance- Eyes Open Independent, <30 seconds Reaching Forward Standing Safely, 5 inches Pick- Up Object From Floor Supervision Look Behind Shoulder - Standing Turns Sideways Only Turning 360 Degrees Requires Assistance Unsupported Stance, Alternating Feet on 2 Steps w/Minimum Assist Stair Unsupported Tandem Stance Small Step- 30 seconds Unilateral Leg Stance Lifts Leg/Unable to Hold Total Score Donis Total Score (out of 56 points) 32 Donis Impairment Rating 40 to 59% Impaired (Score 23- 33) Mejia Fall Scale Copyright Permission PT-OP-E Functional Tests Start: 10/12/17 18:11 Freq: Status: Active Protocol: Document 12/23/18 09:45 DCW (Rec: 12/23/18 10:02 DCW [id number]) Functional Tests 6 Minute Walk Test Distance 933' Device Used 4WW PT-OP-G Mobility & Gait Start: 12/23/18 10:02 Freq: Status: Active Protocol: Document 12/23/18 09:45 DCW (Rec: 12/23/18 10:20 DCW [id number]) OP Gait Assessment Gait Gait Assistance Required: Contact Guard Assist Distance (Feet) 155 Assistive Devices Assistive Device None Gait Belt Gait Deviations General Gait Pattern Antalgic Ataxic Decreased Stride Length Decreased Feet Clearance Flexed Trunk Lateral Trunk Lean PT-OP-M Strength Start: 10/12/17 18:11 Freq: Status: Active Protocol: Document 12/23/18 09:45 DCW (Rec: 12/23/18 10:02 DCW [id number]) Hip Strength Hip Manual Muscle Testing Right Flexion (L2) 5 Normal Abduction 5 Normal Adduction 5 Normal Left Flexion (L2) 4+ Good+ Abduction 5 Normal Adduction 5 Normal Knee Strength Knee Manual Muscle Testing Right Flexion (S2) 5 Normal Extension (L3) 5 Normal Left Flexion (S2) 4+ Good+ Extension (L3) 5 Normal Ankle/Foot Strength Ankle and Foot Manual Muscle Testing Right Dorsiflexion (L4) 2- Poor- Plantarflexion (S1) 3+ Fair+ Left Dorsiflexion (L4) 4+ Good+ Plantarflexion (S1) 5 Normal PT-OP-Q Treatments Start: 09/28/17 15:21 Freq: Status: Active Protocol: Document 01/17/19 09:45 DCW (Rec: 01/17/19 10:28 DCW [id number]) Gym Equipment Shuttle Recovery Bilateral Heel Raises Resistance 137# Reps/Time x60 Unilateral Squats Resistance 112# Shuttle Recovery Platform Stable Reps/Time x20 each Bilateral Squats Resistance 187# Shuttle Recovery Platform Stable Reps/Time x30 Therapeutic Exercises Sitting Exercises Marching Sitting Exercise Name Seated marching /c opposite arm swing Side bilateral Resistance 5# ankles, 4# wrists Gait Training Gait Activity 3 Device Used 4WW Level of Assistance SBA Distance/Duration 680' Treatment Focus Increased gait distance/ tolerance 2 Description Ambulation /s AD Device Used none Level of Assistance CGA Distance/Duration 250' x1 Treatment Focus Focus on increased step length , continous movement, arm swing Comments Pt ambulated around gym and avoided obstacles. PT-OP-T Assessment and Plan Start: 09/28/17 15:21 Freq: Status: Active Protocol: Document 01/17/19 09:45 DCW (Rec: 01/17/19 10:28 DCW [id number]) Physical Therapy Assessment Impairments Impairments Activity Tolerance Balance Functional Activities Functional Mobility Gait ROM Strength Goals Eight Impairment Unassisted Gait Short Term Goal (STG) Pt to ambulate 100' SBA /s AD STG Duration Met Snf Goal (LTG) Pt to ambulate 200' SBA /s AD LTG Duration 02/23/19 Seven Impairment Donis Short Term Goal (STG) Pt to score 22/56 on Donis Balance scale STG Duration Met Snf Goal (LTG) Pt to score 35/56 on Donis Balance scale LTG Duration 02/23/19 Six Impairment Static Standing Balance Short Term Goal (STG) Pt to stand independently for 2 minutes STG Duration [place] Plant Supervisor Goal (LTG) Pt to stand independently for 3 minutes LTG Duration 02/23/19 - Improving Five Impairment 6 MWT Snf Goal (LTG) Pt to ambulate 1000' without rest using 4WW during 6 MWT (09/21/18: 902') LTG Duration 02/23/19 - Improving Four Impairment Foot slap Short Term Goal (STG) Pt to regularly wear R AFO to limit foot drop and help normalize gait pattern STG Duration Met Three Impairment Transfers Short Term Goal (STG) Pt to transfer independently from mat<->w/c with no assistive devices STG Duration Met Two Impairment Ankle weakness Snf Goal (LTG) Pt to display 2/5 MMT in R DF, 4/5 MMT in R PF, and 4+/5 MMT in all other bilateral ankle movements LTG Duration 02/23/19 - Improving One Impairment Activity tolerance [place] Plant Supervisor Goal (LTG) Pt to tolerate activity up to 15 minutes without a break LTG Duration 02/23/19 - Improving Assessment Summary Assessment Pt again walked the farthest he ever has in therapy without an AD, 250' Physical Therapy Plan Frequency and Duration Frequency of Treatment 2x/Week Duration of Treatment 3 months Plan of Care Start Date 12/23/18 Plan of Care End Date 03/25/19 Therapeutic Interventions Therapeutic Interventions Aquatic Therapy Balance Training Gait Training Home Exercise Program Manual Therapy Neuromuscular Re-education Soft Tissue Mobilization Therapeutic Activities Therapeutic Exercises Next Visit Focus/Plan Next Note Type Treatment Note Next Visit Plan Continue focus on opposing arm swing during gait, increasing activity tolerance, increasing gait /s an AD, and improving balance
--- NOTE | 2019-01-20 10:33 | PT.OTN ---
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 with return to pre-existing conscious level, subsequent encounter (01/20/19) History of falling (01/20/19) Physical Therapy Treatment Note PT-OP-A Visit Information Start: 09/28/17 15:21 Freq: Status: Active Protocol: Document 01/20/19 09:45 DCW (Rec: 01/20/19 10:33 DCW [id number]) Out-Patient Physical Therapy Visit Information Visit Information Visit Type Treatment Note Visit Start Time 09:45 Visit Stop Time 10:30 Total Visit Minutes 45 Visit Number 01/07 Number of NURSING ASSISTANT Visits 0 Evaluation Information Evaluation Date 07/27/17 PT-OP-B Current Condition Start: 09/28/17 15:21 Freq: Status: Active Protocol: Document 10/12/17 13:45 DCW (Rec: 10/12/17 18:33 DCW [id number]) Current Condition History of Current Condition Onset Date 02/05/17 History of Current Condition See Pt's initial evaluation in Therapy Source Current Functional Impairments (Reported) Functional Limitations- Mobility/Gait Transfers:W/C<->Mat Stand- pivot: Independent PT-OP-C Subjective Start: 09/28/17 15:21 Freq: Status: Active Protocol: Document 01/20/19 09:45 DCW (Rec: 01/20/19 10:33 DCW [id number]) OP-PT Subjective Patient Comments Patient Comments I have no plans this weekend, which I'm really looking forward to. PT-OP-D Balance Start: 10/12/17 18:11 Freq: Status: Active Protocol: Document 12/23/18 09:45 DCW (Rec: 12/23/18 10:20 DCW [id number]) OP-PT Balance Assessment Standing Balance Standing Balance Comments Double leg, Eyes open: 2' Donis Balance Assessment Evaluation Sitting to Standing Ability Independent w/Hands Unsupported Stance Supervision- 2 minutes Sitting Unsupported, Feet on Floor Safely- 2 minutes Standing to Sitting Ability Assist, Control w/Hands Transfer Ability Safely, Hand Use Unsupported Stance- Eyes Closed 3 seconds Unsupported Stance- Eyes Open Independent, <30 seconds Reaching Forward Standing Safely, 5 inches Pick- Up Object From Floor Supervision Look Behind Shoulder - Standing Turns Sideways Only Turning 360 Degrees Requires Assistance Unsupported Stance, Alternating Feet on 2 Steps w/Minimum Assist Stair Unsupported Tandem Stance Small Step- 30 seconds Unilateral Leg Stance Lifts Leg/Unable to Hold Total Score Donis Total Score (out of 56 points) 32 Donis Impairment Rating 40 to 59% Impaired (Score 23- 33) Mejia Fall Scale Copyright Permission PT-OP-E Functional Tests Start: 10/12/17 18:11 Freq: Status: Active Protocol: Document 12/23/18 09:45 DCW (Rec: 12/23/18 10:02 DCW [id number]) Functional Tests 6 Minute Walk Test Distance 933' Device Used 4WW PT-OP-G Mobility & Gait Start: 12/23/18 10:02 Freq: Status: Active Protocol: Document 12/23/18 09:45 DCW (Rec: 12/23/18 10:20 DCW [id number]) OP Gait Assessment Gait Gait Assistance Required: Contact Guard Assist Distance (Feet) 155 Assistive Devices Assistive Device None Gait Belt Gait Deviations General Gait Pattern Antalgic Ataxic Decreased Stride Length Decreased Feet Clearance Flexed Trunk Lateral Trunk Lean PT-OP-M Strength Start: 10/12/17 18:11 Freq: Status: Active Protocol: Document 12/23/18 09:45 DCW (Rec: 12/23/18 10:02 DCW [id number]) Hip Strength Hip Manual Muscle Testing Right Flexion (L2) 5 Normal Abduction 5 Normal Adduction 5 Normal Left Flexion (L2) 4+ Good+ Abduction 5 Normal Adduction 5 Normal Knee Strength Knee Manual Muscle Testing Right Flexion (S2) 5 Normal Extension (L3) 5 Normal Left Flexion (S2) 4+ Good+ Extension (L3) 5 Normal Ankle/Foot Strength Ankle and Foot Manual Muscle Testing Right Dorsiflexion (L4) 2- Poor- Plantarflexion (S1) 3+ Fair+ Left Dorsiflexion (L4) 4+ Good+ Plantarflexion (S1) 5 Normal PT-OP-Q Treatments Start: 09/28/17 15:21 Freq: Status: Active Protocol: Document 01/20/19 09:45 DCW (Rec: 01/20/19 10:33 DCW [id number]) Gym Equipment Shuttle Recovery Bilateral Heel Raises Resistance 137# Reps/Time x60 Unilateral Squats Resistance 100# Shuttle Recovery Platform Stable Reps/Time x20 each Bilateral Squats Resistance 150# Shuttle Recovery Platform Stable Reps/Time x30 Shuttle Balance 1 Details Blue Comments Wide WILIAN Gait Training Gait Activity 3 Device Used 4WW Level of Assistance SBA Distance/Duration 640' Treatment Focus Increased gait distance/ tolerance 2 Description Ambulation /s AD Device Used none Level of Assistance CGA Distance/Duration 260' x1 Treatment Focus Focus on increased step length , continous movement, arm swing Comments Pt ambulated around gym and avoided obstacles. PT-OP-T Assessment and Plan Start: 09/28/17 15:21 Freq: Status: Active Protocol: Document 01/20/19 09:45 DCW (Rec: 01/20/19 10:33 DCW [id number]) Physical Therapy Assessment Impairments Impairments Activity Tolerance Balance Functional Activities Functional Mobility Gait ROM Strength Goals Eight Impairment Unassisted Gait Short Term Goal (STG) Pt to ambulate 100' SBA /s AD STG Duration Met Longterm Goal (LTG) Pt to ambulate 200' SBA /s AD LTG Duration 02/23/19 Seven Impairment Donis Short Term Goal (STG) Pt to score 22/56 on Donis Balance scale STG Duration Met Longterm Goal (LTG) Pt to score 35/56 on Donis Balance scale LTG Duration 02/23/19 Six Impairment Static Standing Balance Short Term Goal (STG) Pt to stand independently for 2 minutes STG Duration Met Coding Tech Goal (LTG) Pt to stand independently for 3 minutes LTG Duration 02/23/19 - Improving Five Impairment 6 MWT Longterm Goal (LTG) Pt to ambulate 1000' without rest using 4WW during 6 MWT (09/21/18: 902') LTG Duration 02/23/19 - Improving Four Impairment Foot slap Short Term Goal (STG) Pt to regularly wear R AFO to limit foot drop and help normalize gait pattern STG Duration Met Three Impairment Transfers Short Term Goal (STG) Pt to transfer independently from mat<->w/c with no assistive devices STG Duration Met Two Impairment Ankle weakness Coding Tech Goal (LTG) Pt to display 2/5 MMT in R DF, 4/5 MMT in R PF, and 4+/5 MMT in all other bilateral ankle movements LTG Duration 02/23/19 - Improving One Impairment Activity tolerance Longterm Goal (LTG) Pt to tolerate activity up to 15 minutes without a break LTG Duration 02/23/19 - Improving Assessment Summary Assessment For the third visit in a row, pt has increased his farthest distance ambulated without a device. Pt continues to improve in all areas, including gait, balance, and strength. Physical Therapy Plan Frequency and Duration Frequency of Treatment 2x/Week Duration of Treatment 3 months Plan of Care Start Date 12/23/18 Plan of Care End Date 03/25/19 Therapeutic Interventions Therapeutic Interventions Aquatic Therapy Balance Training Gait Training Home Exercise Program Manual Therapy Neuromuscular Re-education Soft Tissue Mobilization Therapeutic Activities Therapeutic Exercises Next Visit Focus/Plan Next Note Type Treatment Note Next Visit Plan Continue focus on opposing arm swing during gait, increasing activity tolerance, increasing gait /s an AD, and improving balance
--- NOTE | 2019-01-24 10:28 | PT.OTN ---
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 hours with return to pre-existing conscious level, subsequent encounter (01/24/19) History of falling (01/24/19) Physical Therapy Treatment Note PT-OP-A Visit Information Start: 09/28/17 15:21 Freq: Status: Active Protocol: Document 01/24/19 09:45 DCW (Rec: 01/24/19 10:28 DCW [id number]) Out-Patient Physical Therapy Visit Information Visit Information Visit Type Treatment Note Visit Start Time 09:45 Visit Stop Time 10:30 Total Visit Minutes 45 Visit Number 02/07 Number of CHIEF JAILER Visits 0 Evaluation Information Evaluation Date 07/27/17 PT-OP-B Current Condition Start: 09/28/17 15:21 Freq: Status: Active Protocol: Document 10/12/17 13:45 DCW (Rec: 10/12/17 18:33 DCW [id number]) Current Condition History of Current Condition Onset Date 02/05/17 History of Current Condition See Pt's initial evaluation in Therapy Source Current Functional Impairments (Reported) Functional Limitations- Mobility/Gait Transfers:W/C<->Mat Stand- pivot: Independent PT-OP-C Subjective Start: 09/28/17 15:21 Freq: Status: Active Protocol: Document 01/24/19 09:45 DCW (Rec: 01/24/19 10:28 DCW [id number]) OP-PT Subjective Patient Comments Patient Comments Pt reports he doesn't feel ready today. PT-OP-D Balance Start: 10/12/17 18:11 Freq: Status: Active Protocol: Document 12/23/18 09:45 DCW (Rec: 12/23/18 10:20 DCW [id number]) OP-PT Balance Assessment Standing Balance Standing Balance Comments Double leg, Eyes open: 2 Donis Balance Assessment Evaluation Sitting to Standing Ability Independent w/Hands Unsupported Stance Supervision- 2 minutes Sitting Unsupported, Feet on Floor Safely- 2 minutes Standing to Sitting Ability Assist, Control w/Hands Transfer Ability Safely, Hand Use Unsupported Stance- Eyes Closed 3 seconds Unsupported Stance- Eyes Open Independent, <30 seconds Reaching Forward Standing Safely, 5 inches Pick- Up Object From Floor Supervision Look Behind Shoulder - Standing Turns Sideways Only Turning 360 Degrees Requires Assistance Unsupported Stance, Alternating Feet on 2 Steps w/Minimum Assist Stair Unsupported Tandem Stance Small Step- 30 seconds Unilateral Leg Stance Lifts Leg/Unable to Hold Total Score Donis Total Score (out of 56 points) 32 Donis Impairment Rating 40 to 59% Impaired (Score 23- 33) Mejia Fall Scale Copyright Permission PT-OP-E Functional Tests Start: 10/12/17 18:11 Freq: Status: Active Protocol: Document 12/23/18 09:45 DCW (Rec: 12/23/18 10:02 DCW [id number]) Functional Tests 6 Minute Walk Test Distance 933' Device Used 4WW PT-OP-G Mobility & Gait Start: 12/23/18 10:02 Freq: Status: Active Protocol: Document 12/23/18 09:45 DCW (Rec: 12/23/18 10:20 DCW [id number]) OP Gait Assessment Gait Gait Assistance Required: Contact Guard Assist Distance (Feet) 155 Assistive Devices Assistive Device None Gait Belt Gait Deviations General Gait Pattern Antalgic Ataxic Decreased Stride Length Decreased Feet Clearance Flexed Trunk Lateral Trunk Lean PT-OP-M Strength Start: 10/12/17 18:11 Freq: Status: Active Protocol: Document 12/23/18 09:45 DCW (Rec: 12/23/18 10:02 DCW [id number]) Hip Strength Hip Manual Muscle Testing Right Flexion (L2) 5 Normal Abduction 5 Normal Adduction 5 Normal Left Flexion (L2) 4+ Good+ Abduction 5 Normal Adduction 5 Normal Knee Strength Knee Manual Muscle Testing Right Flexion (S2) 5 Normal Extension (L3) 5 Normal Left Flexion (S2) 4+ Good+ Extension (L3) 5 Normal Ankle/Foot Strength Ankle and Foot Manual Muscle Testing Right Dorsiflexion (L4) 2- Poor- Plantarflexion (S1) 3+ Fair+ Left Dorsiflexion (L4) 4+ Good+ Plantarflexion (S1) 5 Normal PT-OP-Q Treatments Start: 09/28/17 15:21 Freq: Status: Active Protocol: Document 01/24/19 09:45 DCW (Rec: 01/24/19 10:28 DCW [id number]) Gym Equipment Shuttle Recovery Bilateral Heel Raises Resistance 137# Reps/Time x60 Unilateral Squats Resistance 100# Shuttle Recovery Platform Stable Reps/Time x20 each Bilateral Squats Resistance 162# Shuttle Recovery Platform Stable Reps/Time x30 Shuttle Balance 1 Details Blue Comments Wide WILIAN Gait Training Gait Activity 3 Device Used 4WW Level of Assistance SBA Distance/Duration 580' Treatment Focus Increased gait distance/ tolerance 2 Description Ambulation /s AD Device Used none Level of Assistance CGA Distance/Duration 130' x2 Treatment Focus Focus on increased step length , continous movement, arm swing Comments Pt ambulated around gym and avoided obstacles. PT-OP-T Assessment and Plan Start: 09/28/17 15:21 Freq: Status: Active Protocol: Document 01/24/19 09:45 DCW (Rec: 01/24/19 10:28 DCW [id number]) Physical Therapy Assessment Impairments Impairments Activity Tolerance Balance Functional Activities Functional Mobility Gait ROM Strength Goals Eight Impairment Unassisted Gait Short Term Goal (STG) Pt to ambulate 100' SBA /s AD STG Duration Met Rake Operator Goal (LTG) Pt to ambulate 200' SBA /s AD LTG Duration 02/23/19 Seven Impairment Donis Short Term Goal (STG) Pt to score 22/56 on Donis Balance scale STG Duration Met Care Home Goal (LTG) Pt to score 35/56 on Donis Balance scale LTG Duration 02/23/19 Six Impairment Static Standing Balance Short Term Goal (STG) Pt to stand independently for 2 minutes STG Duration Met Care Home Goal (LTG) Pt to stand independently for 3 minutes LTG Duration 02/23/19 - Improving Five Impairment 6 MWT Care Home Goal (LTG) Pt to ambulate 1000' without rest using 4WW during 6 MWT (09/21/18: 902') LTG Duration 02/23/19 - Improving Four Impairment Foot slap Short Term Goal (STG) Pt to regularly wear R AFO to limit foot drop and help normalize gait pattern STG Duration Met Three Impairment Transfers Short Term Goal (STG) Pt to transfer independently from mat<->w/c with no assistive devices STG Duration Met Two Impairment Ankle weakness Rake Operator Goal (LTG) Pt to display 2/5 MMT in R DF, 4/5 MMT in R PF, and 4+/5 MMT in all other bilateral ankle movements LTG Duration 02/23/19 - Improving One Impairment Activity tolerance Rake Operator Goal (LTG) Pt to tolerate activity up to 15 minutes without a break LTG Duration 02/23/19 - Improving Assessment Summary Assessment Pt experienced a step-back today, with both his ambulation distance and ambulation quality. Pt unsure exactly why he was struggling today, reported he felt fairly normal, but repeated he just didn't feel ready this morning. Physical Therapy Plan Frequency and Duration Frequency of Treatment 2x/Week Duration of Treatment 3 months Plan of Care Start Date 12/23/18 Plan of Care End Date 03/25/19 Therapeutic Interventions Therapeutic Interventions Aquatic Therapy Balance Training Gait Training Home Exercise Program Manual Therapy Neuromuscular Re-education Soft Tissue Mobilization Therapeutic Activities Therapeutic Exercises Next Visit Focus/Plan Next Note Type Treatment Note Next Visit Plan Continue focus on opposing arm swing during gait, increasing activity tolerance, increasing gait /s an AD, and improving balance
--- NOTE | 2019-01-27 10:29 | PT.OTN ---
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 with return to pre-existing conscious level, subsequent encounter (01/27/19) History of falling (01/27/19) Physical Therapy Treatment Note PT-OP-A Visit Information Start: 09/28/17 15:21 Freq: Status: Active Protocol: Document 01/27/19 09:45 DCW (Rec: 01/27/19 10:29 DCW [id number]) Out-Patient Physical Therapy Visit Information Visit Information Visit Type Treatment Note Visit Start Time 09:45 Visit Stop Time 10:30 Total Visit Minutes 45 Visit Number 06/09 Number of COMMUNITY HEALTH NURSE Visits 0 Evaluation Information Evaluation Date 07/27/17 PT-OP-B Current Condition Start: 09/28/17 15:21 Freq: Status: Active Protocol: Document 10/12/17 13:45 DCW (Rec: 10/12/17 18:33 DCW [id number]) Current Condition History of Current Condition Onset Date 02/05/17 History of Current Condition See Pt's initial evaluation in Therapy Source Current Functional Impairments (Reported) Functional Limitations- Mobility/Gait Transfers:W/C<->Mat Stand- pivot: Independent PT-OP-C Subjective Start: 09/28/17 15:21 Freq: Status: Active Protocol: Document 01/27/19 09:45 DCW (Rec: 01/27/19 10:29 DCW [id number]) OP-PT Subjective Patient Comments Patient Comments 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 PT-OP-D Balance Start: 10/12/17 18:11 Freq: Status: Active Protocol: Document 12/23/18 09:45 DCW (Rec: 12/23/18 10:20 DCW [id number]) OP-PT Balance Assessment Standing Balance Standing Balance Comments Double leg, Eyes open: 2 Donis Balance Assessment Evaluation Sitting to Standing Ability Independent w/Hands Unsupported Stance Supervision- 2 minutes Sitting Unsupported, Feet on Floor Safely- 2 minutes Standing to Sitting Ability Assist, Control w/Hands Transfer Ability Safely, Hand Use Unsupported Stance- Eyes Closed 3 seconds Unsupported Stance- Eyes Open Independent, <30 seconds Reaching Forward Standing Safely, 5 inches Pick- Up Object From Floor Supervision Look Behind Shoulder - Standing Turns Sideways Only Turning 360 Degrees Requires Assistance Unsupported Stance, Alternating Feet on 2 Steps w/Minimum Assist Stair Unsupported Tandem Stance Small Step- 30 seconds Unilateral Leg Stance Lifts Leg/Unable to Hold Total Score Donis Total Score (out of 56 points) 32 Donis Impairment Rating 40 to 59% Impaired (Score 23- 33) Mejia Fall Scale Copyright Permission PT-OP-E Functional Tests Start: 10/12/17 18:11 Freq: Status: Active Protocol: Document 12/23/18 09:45 DCW (Rec: 12/23/18 10:02 DCW [id number]) Functional Tests 6 Minute Walk Test Distance 933' Device Used 4WW PT-OP-G Mobility & Gait Start: 12/23/18 10:02 Freq: Status: Active Protocol: Document 12/23/18 09:45 DCW (Rec: 12/23/18 10:20 DCW [id number]) OP Gait Assessment Gait Gait Assistance Required: Contact Guard Assist Distance (Feet) 155 Assistive Devices Assistive Device None,Gait Belt Gait Deviations General Gait Pattern Antalgic,Ataxic,Decreased Stride Length,Decreased Feet Clearance,Flexed Trunk,Lateral Trunk Lean PT-OP-M Strength Start: 10/12/17 18:11 Freq: Status: Active Protocol: Document 12/23/18 09:45 DCW (Rec: 12/23/18 10:02 DCW [id number]) Hip Strength Hip Manual Muscle Testing Right Flexion (L2) 5 Normal Abduction 5 Normal Adduction 5 Normal Left Flexion (L2) 4+ Good+ Abduction 5 Normal Adduction 5 Normal Knee Strength Knee Manual Muscle Testing Right Flexion (S2) 5 Normal Extension (L3) 5 Normal Left Flexion (S2) 4+ Good+ Extension (L3) 5 Normal Ankle/Foot Strength Ankle and Foot Manual Muscle Testing Right Dorsiflexion (L4) 2- Poor- Plantarflexion (S1) 3+ Fair+ Left Dorsiflexion (L4) 4+ Good+ Plantarflexion (S1) 5 Normal PT-OP-Q Treatments Start: 09/28/17 15:21 Freq: Status: Active Protocol: Document 01/27/19 09:45 DCW (Rec: 01/27/19 10:29 DCW [id number]) Gym Equipment Shuttle Recovery Bilateral Heel Raises Resistance 137# Reps/Time x60 Unilateral Squats Resistance 100# Shuttle Recovery Platform Stable Reps/Time x20 each Bilateral Squats Resistance 162# Shuttle Recovery Platform Stable Reps/Time x30 Gait Training Gait Activity 3 Device Used 4WW Level of Assistance SBA Distance/Duration 510' Treatment Focus Increased gait distance/ tolerance 2 Description Ambulation /s AD Device Used none Level of Assistance CGA Distance/Duration 275' x2 Treatment Focus Focus on increased step length , continous movement, arm swing Comments Pt ambulated around gym and avoided obstacles. Manual Therapy Treatment Soft Tissue Mobilization Piriformis Body Location L piriformis Mobilization Type Strumming,Sustained Pressure Intensity/Depth Deep Body Position Sidelying PT-OP-T Assessment and Plan Start: 09/28/17 15:21 Freq: Status: Active Protocol: Document 01/27/19 09:45 DCW (Rec: 01/27/19 10:29 DCW [id number]) Physical Therapy Assessment Impairments Impairments Activity Tolerance,Balance, Functional Activities, Functional Mobility,Gait,ROM, Strength Goals Eight Impairment Unassisted Gait Short Term Goal (STG) Pt to ambulate 200' SBA /s AD STG Duration Met Longterm Goal (LTG) Pt to ambulate 300' SBA /s AD LTG Duration 02/23/19 Seven Impairment Donis Short Term Goal (STG) Pt to score 22/56 on Donis Balance scale STG Duration Met Longterm Goal (LTG) Pt to score 35/56 on Donis Balance scale LTG Duration 02/23/19 Six Impairment Static Standing Balance Short Term Goal (STG) Pt to stand independently for 2 minutes STG Duration Met Nursing Scheduler Goal (LTG) Pt to stand independently for 3 minutes LTG Duration 02/23/19 - Improving Five Impairment 6 MWT Longterm Goal (LTG) Pt to ambulate 1000' without rest using 4WW during 6 MWT (09/21/18: 902') LTG Duration 02/23/19 - Improving Four Impairment Foot slap Short Term Goal (STG) Pt to regularly wear R AFO to limit foot drop and help normalize gait pattern STG Duration Met Three Impairment Transfers Short Term Goal (STG) Pt to transfer independently from mat<->w/c with no assistive devices STG Duration Met Two Impairment Ankle weakness Longterm Goal (LTG) Pt to display 2/5 MMT in R DF, 4/5 MMT in R PF, and 4+/5 MMT in all other bilateral ankle movements LTG Duration 02/23/19 - Improving One Impairment Activity tolerance Longterm Goal (LTG) Pt to tolerate activity up to 15 minutes without a break LTG Duration 02/23/19 - Improving Assessment Summary Assessment Pt did very well today, again walked further without his AD than he had previously, getting to 275 feet CGA. Pt continues to progress in both gait distance and quality, as well as activity tolerance. Physical Therapy Plan Frequency and Duration Frequency of Treatment 2x/Week Duration of Treatment 3 months Plan of Care Start Date 12/23/18 Plan of Care End Date 03/25/19 Therapeutic Interventions Therapeutic Interventions Aquatic Therapy,Balance Training,Gait Training,Home Exercise Program,Manual Therapy,Neuromuscular Re- education,Soft Tissue Mobilization,Therapeutic Activities,Therapeutic Exercises Next Visit Focus/Plan Next Note Type Treatment Note Next Visit Plan Continue focus on opposing arm swing during gait, increasing activity tolerance, increasing gait /s an AD, and improving balance
--- NOTE | 2019-02-07 10:28 | PT.OTN ---
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 with return to pre-existing conscious level, subsequent encounter (02/07/19) History of falling (02/07/19) Physical Therapy Treatment Note PT-OP-A Visit Information Start: 09/28/17 15:21 Freq: Status: Active Protocol: Document 02/07/19 09:45 DCW (Rec: 02/07/19 10:27 DCW [id number]) Out-Patient Physical Therapy Visit Information Visit Information Visit Type Treatment Note Visit Start Time 09:45 Visit Stop Time 10:30 Total Visit Minutes 45 Visit Number 07/10 Number of BUTTON SEWER Visits 0 Evaluation Information Evaluation Date 07/27/17 PT-OP-B Current Condition Start: 09/28/17 15:21 Freq: Status: Active Protocol: Document 10/12/17 13:45 DCW (Rec: 10/12/17 18:33 DCW [id number]) Current Condition History of Current Condition Onset Date 02/05/17 History of Current Condition See Pt's initial evaluation in Therapy Source Current Functional Impairments (Reported) Functional Limitations- Mobility/Gait Transfers:W/C<->Mat Stand- pivot: Independent PT-OP-C Subjective Start: 09/28/17 15:21 Freq: Status: Active Protocol: Document 02/07/19 09:45 DCW (Rec: 02/07/19 10:27 DCW [id number]) OP-PT Subjective Patient Comments Patient Comments Pt notes he is feeling pretty average today. PT-OP-D Balance Start: 10/12/17 18:11 Freq: Status: Active Protocol: Document 12/23/18 09:45 DCW (Rec: 12/23/18 10:20 DCW [id number]) OP-PT Balance Assessment Standing Balance Standing Balance Comments Double leg, Eyes open: 2 Donis Balance Assessment Evaluation Sitting to Standing Ability Independent w/Hands Unsupported Stance Supervision- 2 minutes Sitting Unsupported, Feet on Floor Safely- 2 minutes Standing to Sitting Ability Assist, Control w/Hands Transfer Ability Safely, Hand Use Unsupported Stance- Eyes Closed 3 seconds Unsupported Stance- Eyes Open Independent, <30 seconds Reaching Forward Standing Safely, 5 inches Pick- Up Object From Floor Supervision Look Behind Shoulder - Standing Turns Sideways Only Turning 360 Degrees Requires Assistance Unsupported Stance, Alternating Feet on 2 Steps w/Minimum Assist Stair Unsupported Tandem Stance Small Step- 30 seconds Unilateral Leg Stance Lifts Leg/Unable to Hold Total Score Donis Total Score (out of 56 points) 32 Donis Impairment Rating 40 to 59% Impaired (Score 23- 33) Mejia Fall Scale Copyright Permission PT-OP-E Functional Tests Start: 10/12/17 18:11 Freq: Status: Active Protocol: Document 12/23/18 09:45 DCW (Rec: 12/23/18 10:02 DCW [id number]) Functional Tests 6 Minute Walk Test Distance 933' Device Used 4WW PT-OP-G Mobility & Gait Start: 12/23/18 10:02 Freq: Status: Active Protocol: Document 12/23/18 09:45 DCW (Rec: 12/23/18 10:20 DCW [id number]) OP Gait Assessment Gait Gait Assistance Required: Contact Guard Assist Distance (Feet) 155 Assistive Devices Assistive Device None,Gait Belt Gait Deviations General Gait Pattern Antalgic,Ataxic,Decreased Stride Length,Decreased Feet Clearance,Flexed Trunk,Lateral Trunk Lean PT-OP-M Strength Start: 10/12/17 18:11 Freq: Status: Active Protocol: Document 12/23/18 09:45 DCW (Rec: 12/23/18 10:02 DCW [id number]) Hip Strength Hip Manual Muscle Testing Right Flexion (L2) 5 Normal Abduction 5 Normal Adduction 5 Normal Left Flexion (L2) 4+ Good+ Abduction 5 Normal Adduction 5 Normal Knee Strength Knee Manual Muscle Testing Right Flexion (S2) 5 Normal Extension (L3) 5 Normal Left Flexion (S2) 4+ Good+ Extension (L3) 5 Normal Ankle/Foot Strength Ankle and Foot Manual Muscle Testing Right Dorsiflexion (L4) 2- Poor- Plantarflexion (S1) 3+ Fair+ Left Dorsiflexion (L4) 4+ Good+ Plantarflexion (S1) 5 Normal PT-OP-Q Treatments Start: 09/28/17 15:21 Freq: Status: Active Protocol: Document 02/07/19 09:45 DCW (Rec: 02/07/19 10:27 DCW [id number]) Gym Equipment Shuttle Recovery Bilateral Heel Raises Resistance 137# Reps/Time x60 Unilateral Squats Resistance 100# Shuttle Recovery Platform Stable Reps/Time x20 each Bilateral Squats Resistance 162# Shuttle Recovery Platform Stable Reps/Time x30 Shuttle Balance 1 Details Blue Comments Wide WILIAN Gait Training Gait Activity 3 Device Used 4WW Level of Assistance SBA Distance/Duration 510' Treatment Focus Increased gait distance/ tolerance 2 Description Ambulation /s AD Device Used none Level of Assistance CGA Distance/Duration 180' x1, 100' x1 Treatment Focus Focus on increased step length , continous movement, arm swing Comments Pt ambulated around gym and avoided obstacles. PT-OP-T Assessment and Plan Start: 09/28/17 15:21 Freq: Status: Active Protocol: Document 02/07/19 09:45 DCW (Rec: 02/07/19 10:27 DCW [id number]) Physical Therapy Assessment Impairments Impairments Activity Tolerance,Balance, Functional Activities, Functional Mobility,Gait,ROM, Strength Goals Eight Impairment Unassisted Gait Short Term Goal (STG) Pt to ambulate 200' SBA /s AD STG Duration Met Screw Driver Operator Goal (LTG) Pt to ambulate 300' SBA /s AD LTG Duration 02/23/19 Seven Impairment Donis Short Term Goal (STG) Pt to score 22/56 on Donis Balance scale STG Duration Met Screw Driver Operator Goal (LTG) Pt to score 35/56 on Donis Balance scale LTG Duration 02/23/19 Six Impairment Static Standing Balance Short Term Goal (STG) Pt to stand independently for 2 minutes STG Duration Met Penitentiary Goal (LTG) Pt to stand independently for 3 minutes LTG Duration 02/23/19 - Improving Five Impairment 6 MWT Penitentiary Goal (LTG) Pt to ambulate 1000' without rest using 4WW during 6 MWT (09/21/18: 902') LTG Duration 02/23/19 - Improving Four Impairment Foot slap Short Term Goal (STG) Pt to regularly wear R AFO to limit foot drop and help normalize gait pattern STG Duration Met Three Impairment Transfers Short Term Goal (STG) Pt to transfer independently from mat<->w/c with no assistive devices STG Duration Met Two Impairment Ankle weakness Penitentiary Goal (LTG) Pt to display 2/5 MMT in R DF, 4/5 MMT in R PF, and 4+/5 MMT in all other bilateral ankle movements LTG Duration 02/23/19 - Improving One Impairment Activity tolerance Penitentiary Goal (LTG) Pt to tolerate activity up to 15 minutes without a break LTG Duration 02/23/19 - Improving Assessment Summary Assessment Pt was limited in ambulation distance today secondary to right hip pain, which he reports just came out of nowhere. Physical Therapy Plan Frequency and Duration Frequency of Treatment 2x/Week Duration of Treatment 3 months Plan of Care Start Date 12/23/18 Plan of Care End Date 03/25/19 Therapeutic Interventions Therapeutic Interventions Aquatic Therapy,Balance Training,Gait Training,Home Exercise Program,Manual Therapy,Neuromuscular Re- education,Soft Tissue Mobilization,Therapeutic Activities,Therapeutic Exercises Next Visit Focus/Plan Next Note Type Treatment Note Next Visit Plan Continue focus on opposing arm swing during gait, increasing activity tolerance, increasing gait /s an AD, and improving balance
--- NOTE | 2019-02-10 10:23 | PT.OTN ---
Current Diagnoses Foot drop, right foot (02/10/19) Muscle weakness (generalized) (02/10/19) Unsteadiness on feet (02/10/19) Unspecified abnormalities of gait and mobility (02/10/19) Traumatic subdural hemorrhage with loss of consciousness greater than 24 hours with return to pre-existing conscious level, subsequent encounter (02/10/19) History of falling (02/10/19) Physical Therapy Treatment Note PT-OP-A Visit Information Start: 09/28/17 15:21 Freq: Status: Active Protocol: Document 02/10/19 09:45 DCW (Rec: 02/10/19 10:23 DCW [id number]) Out-Patient Physical Therapy Visit Information Visit Information Visit Type Treatment Note Visit Start Time 09:45 Visit Stop Time 10:30 Total Visit Minutes 45 Visit Number 3/ Number of WANT AD RECEIVER Visits 0 Evaluation Information Evaluation Date 07/27/17 PT-OP-B Current Condition Start: 09/28/17 15:21 Freq: Status: Active Protocol: Document 10/12/17 13:45 DCW (Rec: 10/12/17 18:33 DCW [id number]) Current Condition History of Current Condition Onset Date 02/05/17 History of Current Condition See Pt's initial evaluation in Therapy Source Current Functional Impairments (Reported) Functional Limitations- Mobility/Gait Transfers:W/C<->Mat Stand- pivot: Independent PT-OP-C Subjective Start: 09/28/17 15:21 Freq: Status: Active Protocol: Document 02/10/19 09:45 DCW (Rec: 02/10/19 10:23 DCW [id number]) OP-PT Subjective Patient Comments Patient Comments I'm not feeling all that good today, which is probably a good sign, since whenever I think I'm going to do poorly, I do pretty well. PT-OP-D Balance Start: 10/12/17 18:11 Freq: Status: Active Protocol: Document 12/23/18 09:45 DCW (Rec: 12/23/18 10:20 DCW [id number]) OP-PT Balance Assessment Standing Balance Standing Balance Comments Double leg, Eyes open: 2'17 Donis Balance Assessment Evaluation Sitting to Standing Ability Independent w/Hands Unsupported Stance Supervision- 2 minutes Sitting Unsupported, Feet on Floor Safely- 2 minutes Standing to Sitting Ability Assist, Control w/Hands Transfer Ability Safely, Hand Use Unsupported Stance- Eyes Closed 3 seconds Unsupported Stance- Eyes Open Independent, <30 seconds Reaching Forward Standing Safely, 5 inches Pick- Up Object From Floor Supervision Look Behind Shoulder - Standing Turns Sideways Only Turning 360 Degrees Requires Assistance Unsupported Stance, Alternating Feet on 2 Steps w/Minimum Assist Stair Unsupported Tandem Stance Small Step- 30 seconds Unilateral Leg Stance Lifts Leg/Unable to Hold Total Score Donis Total Score (out of 56 points) 32 Donis Impairment Rating 40 to 59% Impaired (Score 23- 33) Mejia Fall Scale Copyright Permission PT-OP-E Functional Tests Start: 10/12/17 18:11 Freq: Status: Active Protocol: Document 12/23/18 09:45 DCW (Rec: 12/23/18 10:02 DCW [id number]) Functional Tests 6 Minute Walk Test Distance 933' Device Used 4WW PT-OP-G Mobility & Gait Start: 12/23/18 10:02 Freq: Status: Active Protocol: Document 12/23/18 09:45 DCW (Rec: 12/23/18 10:20 DCW [id number]) OP Gait Assessment Gait Gait Assistance Required: Contact Guard Assist Distance (Feet) 155 Assistive Devices Assistive Device None,Gait Belt Gait Deviations General Gait Pattern Antalgic,Ataxic,Decreased Stride Length,Decreased Feet Clearance,Flexed Trunk,Lateral Trunk Lean PT-OP-M Strength Start: 10/12/17 18:11 Freq: Status: Active Protocol: Document 12/23/18 09:45 DCW (Rec: 12/23/18 10:02 DCW [id number]) Hip Strength Hip Manual Muscle Testing Right Flexion (L2) 5 Normal Abduction 5 Normal Adduction 5 Normal Left Flexion (L2) 4+ Good+ Abduction 5 Normal Adduction 5 Normal Knee Strength Knee Manual Muscle Testing Right Flexion (S2) 5 Normal Extension (L3) 5 Normal Left Flexion (S2) 4+ Good+ Extension (L3) 5 Normal Ankle/Foot Strength Ankle and Foot Manual Muscle Testing Right Dorsiflexion (L4) 2- Poor- Plantarflexion (S1) 3+ Fair+ Left Dorsiflexion (L4) 4+ Good+ Plantarflexion (S1) 5 Normal PT-OP-Q Treatments Start: 09/28/17 15:21 Freq: Status: Active Protocol: Document 02/10/19 09:45 DCW (Rec: 02/10/19 10:23 [facility] [id number]) Therapeutic Exercises Standing Exercises Hip Abduction Standing Exercise Name Abduction Side bilateral Resistance 10# Reps/Minutes x20 Hamstring curls Standing Exercise Name HS curls at rail Side bilateral Resistance 10# Equipment Used ankle weights Reps/Minutes x20 Other Exercises Step-ups Other Exercise Name Step-ups with bilateral rail Resistance 5# Equipment Used 8 step 1 Other Exercise Name Resisted Side-stepping Side bilateral Resistance Blue Equipment Used T-band Gait Training Gait Activity 3 Device Used 4WW Level of Assistance SBA Distance/Duration 530' Treatment Focus Increased gait distance/ tolerance 2 Description Ambulation /s AD Device Used none Level of Assistance CGA Distance/Duration 285' Treatment Focus Focus on increased step length , continous movement, arm swing Comments Pt ambulated around gym and avoided obstacles. PT-OP-T Assessment and Plan Start: 09/28/17 15:21 Freq: Status: Active Protocol: Document 02/10/19 09:45 DCW (Rec: 02/10/19 10:23 [facility] [id number]) Physical Therapy Assessment Impairments Impairments Activity Tolerance,Balance, Functional Activities, Functional Mobility,Gait,ROM, Strength Goals Eight Impairment Unassisted Gait Short Term Goal (STG) Pt to ambulate 200' SBA /s AD STG Duration Met Fur Dry Cleaner Hand Goal (LTG) Pt to ambulate 300' SBA /s AD LTG Duration 02/23/19 Seven Impairment Donis Short Term Goal (STG) Pt to score 22/56 on Donis Balance scale STG Duration Met Fur Dry Cleaner Hand Goal (LTG) Pt to score 35/56 on Donis Balance scale LTG Duration 02/23/19 Six Impairment Static Standing Balance Short Term Goal (STG) Pt to stand independently for 2 minutes STG Duration Met Fur Dry Cleaner Hand Goal (LTG) Pt to stand independently for 3 minutes LTG Duration 02/23/19 - Improving Five Impairment 6 MWT Intermediate Goal (LTG) Pt to ambulate 1000' without rest using 4WW during 6 MWT (09/21/18: 902') LTG Duration 02/23/19 - Improving Four Impairment Foot slap Short Term Goal (STG) Pt to regularly wear R AFO to limit foot drop and help normalize gait pattern STG Duration Met Three Impairment Transfers Short Term Goal (STG) Pt to transfer independently from mat<->w/c with no assistive devices STG Duration Met Two Impairment Ankle weakness Intermediate Goal (LTG) Pt to display 2/5 MMT in R DF, 4/5 MMT in R PF, and 4+/5 MMT in all other bilateral ankle movements LTG Duration 02/23/19 - Improving One Impairment Activity tolerance Intermediate Goal (LTG) Pt to tolerate activity up to 15 minutes without a break LTG Duration 02/23/19 - Improving Assessment Summary Assessment Pt had his farthest distance single attempt walking today, tolerated all other treatment well. Overallm, had a very good treatment session. Physical Therapy Plan Frequency and Duration Frequency of Treatment 2x/Week Duration of Treatment 3 months Plan of Care Start Date 12/23/18 Plan of Care End Date 03/25/19 Therapeutic Interventions Therapeutic Interventions Aquatic Therapy,Balance Training,Gait Training,Home Exercise Program,Manual Therapy,Neuromuscular Re- education,Soft Tissue Mobilization,Therapeutic Activities,Therapeutic Exercises Next Visit Focus/Plan Next Note Type Treatment Note Next Visit Plan Continue focus on opposing arm swing during gait, increasing activity tolerance, increasing gait /s an AD, and improving balance
--- NOTE | 2019-02-14 10:31 | PT.OTN ---
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 with return to pre-existing conscious level, subsequent encounter (02/14/19) History of falling (02/14/19) Physical Therapy Treatment Note PT-OP-A Visit Information Start: 09/28/17 15:21 Freq: Status: Active Protocol: Document 02/14/19 09:45 DCW (Rec: 02/14/19 10:31 DCW [id number]) Out-Patient Physical Therapy Visit Information Visit Information Visit Type Treatment Note Visit Start Time 09:45 Visit Stop Time 10:30 Total Visit Minutes 45 Visit Number 4/ Number of WAIT STAFF Visits 0 Evaluation Information Evaluation Date 07/27/17 PT-OP-B Current Condition Start: 09/28/17 15:21 Freq: Status: Active Protocol: Document 10/12/17 13:45 DCW (Rec: 10/12/17 18:33 DCW [id number]) Current Condition History of Current Condition Onset Date 02/05/17 History of Current Condition See Pt's initial evaluation in Therapy Source Current Functional Impairments (Reported) Functional Limitations- Mobility/Gait Transfers:W/C<->Mat Stand- pivot: Independent PT-OP-C Subjective Start: 09/28/17 15:21 Freq: Status: Active Protocol: Document 02/14/19 09:45 DCW (Rec: 02/14/19 10:31 DCW [id number]) OP-PT Subjective Patient Comments Patient Comments Pt feels alright today, a little tired. PT-OP-D Balance Start: 10/12/17 18:11 Freq: Status: Active Protocol: Document 12/23/18 09:45 DCW (Rec: 12/23/18 10:20 DCW [id number]) OP-PT Balance Assessment Standing Balance Standing Balance Comments Double leg, Eyes open: 2 Donis Balance Assessment Evaluation Sitting to Standing Ability Independent w/Hands Unsupported Stance Supervision- 2 minutes Sitting Unsupported, Feet on Floor Safely- 2 minutes Standing to Sitting Ability Assist, Control w/Hands Transfer Ability Safely, Hand Use Unsupported Stance- Eyes Closed 3 seconds Unsupported Stance- Eyes Open Independent, <30 seconds Reaching Forward Standing Safely, 5 inches Pick- Up Object From Floor Supervision Look Behind Shoulder - Standing Turns Sideways Only Turning 360 Degrees Requires Assistance Unsupported Stance, Alternating Feet on 2 Steps w/Minimum Assist Stair Unsupported Tandem Stance Small Step- 30 seconds Unilateral Leg Stance Lifts Leg/Unable to Hold Total Score Donis Total Score (out of 56 points) 32 Donis Impairment Rating 40 to 59% Impaired (Score 23- 33) Mejia Fall Scale Copyright Permission PT-OP-E Functional Tests Start: 10/12/17 18:11 Freq: Status: Active Protocol: Document 12/23/18 09:45 DCW (Rec: 12/23/18 10:02 DCW [id number]) Functional Tests 6 Minute Walk Test Distance 933' Device Used 4WW PT-OP-G Mobility & Gait Start: 12/23/18 10:02 Freq: Status: Active Protocol: Document 12/23/18 09:45 DCW (Rec: 12/23/18 10:20 DCW [id number]) OP Gait Assessment Gait Gait Assistance Required: Contact Guard Assist Distance (Feet) 155 Assistive Devices Assistive Device None,Gait Belt Gait Deviations General Gait Pattern Antalgic,Ataxic,Decreased Stride Length,Decreased Feet Clearance,Flexed Trunk,Lateral Trunk Lean PT-OP-M Strength Start: 10/12/17 18:11 Freq: Status: Active Protocol: Document 12/23/18 09:45 DCW (Rec: 12/23/18 10:02 DCW [id number]) Hip Strength Hip Manual Muscle Testing Right Flexion (L2) 5 Normal Abduction 5 Normal Adduction 5 Normal Left Flexion (L2) 4+ Good+ Abduction 5 Normal Adduction 5 Normal Knee Strength Knee Manual Muscle Testing Right Flexion (S2) 5 Normal Extension (L3) 5 Normal Left Flexion (S2) 4+ Good+ Extension (L3) 5 Normal Ankle/Foot Strength Ankle and Foot Manual Muscle Testing Right Dorsiflexion (L4) 2- Poor- Plantarflexion (S1) 3+ Fair+ Left Dorsiflexion (L4) 4+ Good+ Plantarflexion (S1) 5 Normal PT-OP-Q Treatments Start: 09/28/17 15:21 Freq: Status: Active Protocol: Document 02/14/19 09:45 DCW (Rec: 02/14/19 10:31 DCW [id number]) Gym Equipment Shuttle Recovery Bilateral Heel Raises Resistance 137# Reps/Time x60 Unilateral Squats Resistance 100# Shuttle Recovery Platform Stable Reps/Time x20 each Bilateral Squats Resistance 162# Shuttle Recovery Platform Stable Reps/Time x30 Therapeutic Exercises Other Exercises 1 Other Exercise Name Resisted Side-stepping Side bilateral Resistance Blue Equipment Used T-band Gait Training Gait Activity 3 Device Used 4WW Level of Assistance SBA Distance/Duration 640' Treatment Focus Increased gait distance/ tolerance 2 Description Ambulation /s AD Device Used none Level of Assistance CGA Distance/Duration 260' Treatment Focus Focus on increased step length , continous movement, arm swing Comments Pt ambulated around gym and avoided obstacles. PT-OP-T Assessment and Plan Start: 09/28/17 15:21 Freq: Status: Active Protocol: Document 02/14/19 09:45 DCW (Rec: 02/14/19 10:31 DCW [id number]) Physical Therapy Assessment Impairments Impairments Activity Tolerance,Balance, Functional Activities, Functional Mobility,Gait,ROM, Strength Goals Eight Impairment Unassisted Gait Short Term Goal (STG) Pt to ambulate 200' SBA /s AD STG Duration Met Intermediate Goal (LTG) Pt to ambulate 300' SBA /s AD LTG Duration 02/23/19 Seven Impairment Donis Short Term Goal (STG) Pt to score 22/56 on Donis Balance scale STG Duration Met Exhibit Designer Goal (LTG) Pt to score 35/56 on Donis Balance scale LTG Duration 02/23/19 Six Impairment Static Standing Balance Short Term Goal (STG) Pt to stand independently for 2 minutes STG Duration Met Exhibit Designer Goal (LTG) Pt to stand independently for 3 minutes LTG Duration 02/23/19 - Improving Five Impairment 6 MWT Exhibit Designer Goal (LTG) Pt to ambulate 1000' without rest using 4WW during 6 MWT (09/21/18: 902') LTG Duration 02/23/19 - Improving Four Impairment Foot slap Short Term Goal (STG) Pt to regularly wear R AFO to limit foot drop and help normalize gait pattern STG Duration Met Three Impairment Transfers Short Term Goal (STG) Pt to transfer independently from mat<->w/c with no assistive devices STG Duration Met Two Impairment Ankle weakness Exhibit Designer Goal (LTG) Pt to display 2/5 MMT in R DF, 4/5 MMT in R PF, and 4+/5 MMT in all other bilateral ankle movements LTG Duration 02/23/19 - Improving One Impairment Activity tolerance Exhibit Designer Goal (LTG) Pt to tolerate activity up to 15 minutes without a break LTG Duration 02/23/19 - Improving Assessment Summary Assessment Pt displayed increased fatigue today, although he was able to ambulate a good distance, the quality of his gait was decreased, with more stumbling and path deviation than usual . Pt also had difficulty performing his normal weight on the leg press, taking more rest breaks and a longer period of time to perform the activity. Physical Therapy Plan Frequency and Duration Frequency of Treatment 2x/Week Duration of Treatment 3 months Plan of Care Start Date 12/23/18 Plan of Care End Date 03/25/19 Therapeutic Interventions Therapeutic Interventions Aquatic Therapy,Balance Training,Gait Training,Home Exercise Program,Manual Therapy,Neuromuscular Re- education,Soft Tissue Mobilization,Therapeutic Activities,Therapeutic Exercises Next Visit Focus/Plan Next Note Type Treatment Note Next Visit Plan Continue focus on opposing arm swing during gait, increasing activity tolerance, increasing gait /s an AD, and improving balance
--- NOTE | 2019-02-17 09:31 | PT.OTN ---
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 with return to pre-existing conscious level, subsequent encounter (02/17/19) History of falling (02/17/19) Physical Therapy Treatment Note PT-OP-A Visit Information Start: 09/28/17 15:21 Freq: Status: Active Protocol: Document 02/17/19 08:50 DCW (Rec: 02/17/19 09:31 DCW [id number]) Out-Patient Physical Therapy Visit Information Visit Information Visit Type Treatment Note Visit Start Time 08:50 Visit Stop Time 09:35 Total Visit Minutes 45 Visit Number 5/ Number of MOBILE EQUIPMENT SERVICER Visits 0 Evaluation Information Evaluation Date 07/27/17 PT-OP-B Current Condition Start: 09/28/17 15:21 Freq: Status: Active Protocol: Document 10/12/17 13:45 DCW (Rec: 10/12/17 18:33 DCW [id number]) Current Condition History of Current Condition Onset Date 02/05/17 History of Current Condition See Pt's initial evaluation in Therapy Source Current Functional Impairments (Reported) Functional Limitations- Mobility/Gait Transfers:W/C<->Mat Stand- pivot: Independent PT-OP-C Subjective Start: 09/28/17 15:21 Freq: Status: Active Protocol: Document 02/17/19 08:50 DCW (Rec: 02/17/19 09:31 DCW [id number]) OP-PT Subjective Patient Comments Patient Comments Pt reports he believes now he may have been getting sick on Wednesday, because since then, he has been very lethargic and sweating a lot. Notes that he is beginning to feel better now. PT-OP-D Balance Start: 10/12/17 18:11 Freq: Status: Active Protocol: Document 12/23/18 09:45 DCW (Rec: 12/23/18 10:20 DCW [id number]) OP-PT Balance Assessment Standing Balance Standing Balance Comments Double leg, Eyes open: 2'17 Donis Balance Assessment Evaluation Sitting to Standing Ability Independent w/Hands Unsupported Stance Supervision- 2 minutes Sitting Unsupported, Feet on Floor Safely- 2 minutes Standing to Sitting Ability Assist, Control w/Hands Transfer Ability Safely, Hand Use Unsupported Stance- Eyes Closed 3 seconds Unsupported Stance- Eyes Open Independent, <30 seconds Reaching Forward Standing Safely, 5 inches Pick- Up Object From Floor Supervision Look Behind Shoulder - Standing Turns Sideways Only Turning 360 Degrees Requires Assistance Unsupported Stance, Alternating Feet on 2 Steps w/Minimum Assist Stair Unsupported Tandem Stance Small Step- 30 seconds Unilateral Leg Stance Lifts Leg/Unable to Hold Total Score Donis Total Score (out of 56 points) 32 Donis Impairment Rating 40 to 59% Impaired (Score 23- 33) Mejia Fall Scale Copyright Permission PT-OP-E Functional Tests Start: 10/12/17 18:11 Freq: Status: Active Protocol: Document 12/23/18 09:45 DCW (Rec: 12/23/18 10:02 DCW [id number]) Functional Tests 6 Minute Walk Test Distance 933' Device Used 4WW PT-OP-G Mobility & Gait Start: 12/23/18 10:02 Freq: Status: Active Protocol: Document 12/23/18 09:45 DCW (Rec: 12/23/18 10:20 DCW [id number]) OP Gait Assessment Gait Gait Assistance Required: Contact Guard Assist Distance (Feet) 155 Assistive Devices Assistive Device None,Gait Belt Gait Deviations General Gait Pattern Antalgic,Ataxic,Decreased Stride Length,Decreased Feet Clearance,Flexed Trunk,Lateral Trunk Lean PT-OP-M Strength Start: 10/12/17 18:11 Freq: Status: Active Protocol: Document 12/23/18 09:45 DCW (Rec: 12/23/18 10:02 DCW [id number]) Hip Strength Hip Manual Muscle Testing Right Flexion (L2) 5 Normal Abduction 5 Normal Adduction 5 Normal Left Flexion (L2) 4+ Good+ Abduction 5 Normal Adduction 5 Normal Knee Strength Knee Manual Muscle Testing Right Flexion (S2) 5 Normal Extension (L3) 5 Normal Left Flexion (S2) 4+ Good+ Extension (L3) 5 Normal Ankle/Foot Strength Ankle and Foot Manual Muscle Testing Right Dorsiflexion (L4) 2- Poor- Plantarflexion (S1) 3+ Fair+ Left Dorsiflexion (L4) 4+ Good+ Plantarflexion (S1) 5 Normal PT-OP-Q Treatments Start: 09/28/17 15:21 Freq: Status: Active Protocol: Document 02/17/19 08:50 DCW (Rec: 02/17/19 09:31 DCW [id number]) Gym Equipment Shuttle Balance 1 Details Blue Comments Wide WILIAN Therapeutic Exercises Other Exercises 1 Other Exercise Name Resisted Side-stepping Side bilateral Resistance Blue Equipment Used T-band Gait Training Gait Activity 3 Device Used 4WW Level of Assistance SBA Distance/Duration 510' Treatment Focus Increased gait distance/ tolerance 2 Description Ambulation /s AD Device Used none Level of Assistance CGA Distance/Duration 170' x2 Treatment Focus Focus on increased step length , continous movement, arm swing Comments Pt ambulated around gym and avoided obstacles. PT-OP-T Assessment and Plan Start: 09/28/17 15:21 Freq: Status: Active Protocol: Document 02/17/19 08:50 DCW (Rec: 02/17/19 09:31 DCW [id number]) Physical Therapy Assessment Impairments Impairments Activity Tolerance,Balance, Functional Activities, Functional Mobility,Gait,ROM, Strength Goals Eight Impairment Unassisted Gait Short Term Goal (STG) Pt to ambulate 200' SBA /s AD STG Duration Met Usp Goal (LTG) Pt to ambulate 300' SBA /s AD LTG Duration 02/23/19 Seven Impairment Donis Short Term Goal (STG) Pt to score 22/56 on Donis Balance scale STG Duration Met Usp Goal (LTG) Pt to score 35/56 on Donis Balance scale LTG Duration 02/23/19 Six Impairment Static Standing Balance Short Term Goal (STG) Pt to stand independently for 2 minutes STG Duration Met Usp Goal (LTG) Pt to stand independently for 3 minutes LTG Duration 02/23/19 - Improving Five Impairment 6 MWT Usp Goal (LTG) Pt to ambulate 1000' without rest using 4WW during 6 MWT (09/21/18: 902') LTG Duration 02/23/19 - Improving Four Impairment Foot slap Short Term Goal (STG) Pt to regularly wear R AFO to limit foot drop and help normalize gait pattern STG Duration Met Three Impairment Transfers Short Term Goal (STG) Pt to transfer independently from mat<->w/c with no assistive devices STG Duration Met Two Impairment Ankle weakness Usp Goal (LTG) Pt to display 2/5 MMT in R DF, 4/5 MMT in R PF, and 4+/5 MMT in all other bilateral ankle movements LTG Duration 02/23/19 - Improving One Impairment Activity tolerance Advertisement Distributor Goal (LTG) Pt to tolerate activity up to 15 minutes without a break LTG Duration 02/23/19 - Improving Assessment Summary Assessment Pt still clearly not feeling well today, much more easily fatigued today. Pt was able to ambulate his farthest total distance without an assistive device, although it was broken up between two attempts. Physical Therapy Plan Frequency and Duration Frequency of Treatment 2x/Week Duration of Treatment 3 months Plan of Care Start Date 12/23/18 Plan of Care End Date 03/25/19 Therapeutic Interventions Therapeutic Interventions Aquatic Therapy,Balance Training,Gait Training,Home Exercise Program,Manual Therapy,Neuromuscular Re- education,Soft Tissue Mobilization,Therapeutic Activities,Therapeutic Exercises Next Visit Focus/Plan Next Note Type Treatment Note Next Visit Plan Continue focus on opposing arm swing during gait, increasing activity tolerance, increasing gait /s an AD, and improving balance
--- NOTE | 2019-02-24 10:28 | PT.OTN ---
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 greater than 24 hours with return to pre-existing conscious level, subsequent encounter (02/24/19) History of falling (02/24/19) Physical Therapy Treatment Note PT-OP-A Visit Information Start: 09/28/17 15:21 Freq: Status: Active Protocol: Document 02/24/19 09:45 DCW (Rec: 02/24/19 10:28 DCW [id number]) Out-Patient Physical Therapy Visit Information Visit Information Visit Type Treatment Note Visit Note Pt took extended bathroom break mid-session Visit Start Time 09:45 Visit Stop Time 10:30 Total Visit Minutes 32 Visit Number 6 Number of TOPSTITCHER LOCKSTITCH Visits 0 Evaluation Information Evaluation Date 07/27/17 PT-OP-B Current Condition Start: 09/28/17 15:21 Freq: Status: Active Protocol: Document 10/12/17 13:45 DCW (Rec: 10/12/17 18:33 DCW [id number]) Current Condition History of Current Condition Onset Date 02/05/17 History of Current Condition See Pt's initial evaluation in Therapy Source Current Functional Impairments (Reported) Functional Limitations- Mobility/Gait Transfers:W/C<->Mat Stand- pivot: Independent PT-OP-C Subjective Start: 09/28/17 15:21 Freq: Status: Active Protocol: Document 02/24/19 09:45 DCW (Rec: 02/24/19 10:28 DCW [id number]) OP-PT Subjective Patient Comments Patient Comments Pt feels today won't be a good day, but he is unable to explain why, just that he feels off today. PT-OP-D Balance Start: 10/12/17 18:11 Freq: Status: Active Protocol: Document 12/23/18 09:45 DCW (Rec: 12/23/18 10:20 DCW [id number]) OP-PT Balance Assessment Standing Balance Standing Balance Comments Double leg, Eyes open: 2'17 Donis Balance Assessment Evaluation Sitting to Standing Ability Independent w/Hands Unsupported Stance Supervision- 2 minutes Sitting Unsupported, Feet on Floor Safely- 2 minutes Standing to Sitting Ability Assist, Control w/Hands Transfer Ability Safely, Hand Use Unsupported Stance- Eyes Closed 3 seconds Unsupported Stance- Eyes Open Independent, <30 seconds Reaching Forward Standing Safely, 5 inches Pick- Up Object From Floor Supervision Look Behind Shoulder - Standing Turns Sideways Only Turning 360 Degrees Requires Assistance Unsupported Stance, Alternating Feet on 2 Steps w/Minimum Assist Stair Unsupported Tandem Stance Small Step- 30 seconds Unilateral Leg Stance Lifts Leg/Unable to Hold Total Score Donis Total Score (out of 56 points) 32 Donis Impairment Rating 40 to 59% Impaired (Score 23- 33) Mejia Fall Scale Copyright Permission PT-OP-E Functional Tests Start: 10/12/17 18:11 Freq: Status: Active Protocol: Document 12/23/18 09:45 DCW (Rec: 12/23/18 10:02 DCW [id number]) Functional Tests 6 Minute Walk Test Distance 933' Device Used 4WW PT-OP-G Mobility & Gait Start: 12/23/18 10:02 Freq: Status: Active Protocol: Document 12/23/18 09:45 DCW (Rec: 12/23/18 10:20 DCW [id number]) OP Gait Assessment Gait Gait Assistance Required: Contact Guard Assist Distance (Feet) 155 Assistive Devices Assistive Device None,Gait Belt Gait Deviations General Gait Pattern Antalgic,Ataxic,Decreased Stride Length,Decreased Feet Clearance,Flexed Trunk,Lateral Trunk Lean PT-OP-M Strength Start: 10/12/17 18:11 Freq: Status: Active Protocol: Document 12/23/18 09:45 DCW (Rec: 12/23/18 10:02 DCW [id number]) Hip Strength Hip Manual Muscle Testing Right Flexion (L2) 5 Normal Abduction 5 Normal Adduction 5 Normal Left Flexion (L2) 4+ Good+ Abduction 5 Normal Adduction 5 Normal Knee Strength Knee Manual Muscle Testing Right Flexion (S2) 5 Normal Extension (L3) 5 Normal Left Flexion (S2) 4+ Good+ Extension (L3) 5 Normal Ankle/Foot Strength Ankle and Foot Manual Muscle Testing Right Dorsiflexion (L4) 2- Poor- Plantarflexion (S1) 3+ Fair+ Left Dorsiflexion (L4) 4+ Good+ Plantarflexion (S1) 5 Normal PT-OP-Q Treatments Start: 09/28/17 15:21 Freq: Status: Active Protocol: Document 02/24/19 09:45 DCW (Rec: 02/24/19 10:28 DCW [id number]) Gym Equipment Shuttle Recovery Bilateral Heel Raises Resistance 137# Reps/Time x60 Unilateral Squats Resistance 100# Shuttle Recovery Platform Stable Reps/Time x20 each Bilateral Squats Resistance 162# Shuttle Recovery Platform Stable Reps/Time x30 Shuttle Balance 1 Details Blue Comments Wide WILIAN Gait Training Gait Activity 3 Device Used 4WW Level of Assistance SBA Distance/Duration 255' Treatment Focus Increased gait distance/ tolerance 2 Description Ambulation /s AD Device Used none Level of Assistance CGA Distance/Duration 190' x1, 100' x1 Treatment Focus Focus on increased step length , continous movement, arm swing Comments Pt ambulated around gym and avoided obstacles. PT-OP-T Assessment and Plan Start: 09/28/17 15:21 Freq: Status: Active Protocol: Document 02/24/19 09:45 DCW (Rec: 02/24/19 10:28 DCW [id number]) Physical Therapy Assessment Impairments Impairments Activity Tolerance,Balance, Functional Activities, Functional Mobility,Gait,ROM, Strength Goals Eight Impairment Unassisted Gait Short Term Goal (STG) Pt to ambulate 200' SBA /s AD STG Duration Met Elastic Attacher Overlock Goal (LTG) Pt to ambulate 300' SBA /s AD LTG Duration 02/23/19 Seven Impairment Donis Short Term Goal (STG) Pt to score 22/56 on Donis Balance scale STG Duration Met Elastic Attacher Overlock Goal (LTG) Pt to score 35/56 on Donis Balance scale LTG Duration 02/23/19 Six Impairment Static Standing Balance Short Term Goal (STG) Pt to stand independently for 2 minutes STG Duration Met Elastic Attacher Overlock Goal (LTG) Pt to stand independently for 3 minutes LTG Duration 02/23/19 - Improving Five Impairment 6 MWT Elastic Attacher Overlock Goal (LTG) Pt to ambulate 1000' without rest using 4WW during 6 MWT (09/21/18: 902') LTG Duration 02/23/19 - Improving Four Impairment Foot slap Short Term Goal (STG) Pt to regularly wear R AFO to limit foot drop and help normalize gait pattern STG Duration Met Three Impairment Transfers Short Term Goal (STG) Pt to transfer independently from mat<->w/c with no assistive devices STG Duration Met Two Impairment Ankle weakness Retirement Goal (LTG) Pt to display 2/5 MMT in R DF, 4/5 MMT in R PF, and 4+/5 MMT in all other bilateral ankle movements LTG Duration 02/23/19 - Improving One Impairment Activity tolerance Retirement Goal (LTG) Pt to tolerate activity up to 15 minutes without a break LTG Duration 02/23/19 - Improving Assessment Summary Assessment Pt initial assessment was correct, in that he didn't have a great day, especially with ambulation. Pt fatigued more quickly than normal during gait both with and without his assistive device. Physical Therapy Plan Frequency and Duration Frequency of Treatment 2x/Week Duration of Treatment 3 months Plan of Care Start Date 12/23/18 Plan of Care End Date 03/25/19 Therapeutic Interventions Therapeutic Interventions Aquatic Therapy,Balance Training,Gait Training,Home Exercise Program,Manual Therapy,Neuromuscular Re- education,Soft Tissue Mobilization,Therapeutic Activities,Therapeutic Exercises Next Visit Focus/Plan Next Note Type Treatment Note Next Visit Plan Continue focus on opposing arm swing during gait, increasing activity tolerance, increasing gait /s an AD, and improving balance
--- NOTE | 2019-03-03 10:28 | PT.OTN ---
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 with return to pre-existing conscious level, subsequent encounter (03/03/19) History of falling (03/03/19) Physical Therapy Treatment Note PT-OP-A Visit Information Start: 09/28/17 15:21 Freq: Status: Active Protocol: Document 03/03/19 09:45 DCW (Rec: 03/03/19 10:28 DCW [id number]) Out-Patient Physical Therapy Visit Information Visit Information Visit Type Treatment Note Visit Start Time 09:45 Visit Stop Time 10:30 Total Visit Minutes 45 Visit Number 12/07 Number of CHANNEL PROCESS SUPERVISOR Visits 0 Evaluation Information Evaluation Date 07/27/17 PT-OP-B Current Condition Start: 09/28/17 15:21 Freq: Status: Active Protocol: Document 10/12/17 13:45 DCW (Rec: 10/12/17 18:33 DCW [id number]) Current Condition History of Current Condition Onset Date 02/05/17 History of Current Condition See Pt's initial evaluation in Therapy Source Current Functional Impairments (Reported) Functional Limitations- Mobility/Gait Transfers:W/C<->Mat Stand- pivot: Independent PT-OP-C Subjective Start: 09/28/17 15:21 Freq: Status: Active Protocol: Document 03/03/19 09:45 DCW (Rec: 03/03/19 10:28 DCW [id number]) OP-PT Subjective Patient Comments Patient Comments Pt reports he has been sick since leaving here last Wednesday . He's feeling better now, but believes he will probable be pretty weak and fatigue easily . PT-OP-D Balance Start: 10/12/17 18:11 Freq: Status: Active Protocol: Document 12/23/18 09:45 DCW (Rec: 12/23/18 10:20 DCW [id number]) OP-PT Balance Assessment Standing Balance Standing Balance Comments Double leg, Eyes open: 2'17 Donis Balance Assessment Evaluation Sitting to Standing Ability Independent w/Hands Unsupported Stance Supervision- 2 minutes Sitting Unsupported, Feet on Floor Safely- 2 minutes Standing to Sitting Ability Assist, Control w/Hands Transfer Ability Safely, Hand Use Unsupported Stance- Eyes Closed 3 seconds Unsupported Stance- Eyes Open Independent, <30 seconds Reaching Forward Standing Safely, 5 inches Pick- Up Object From Floor Supervision Look Behind Shoulder - Standing Turns Sideways Only Turning 360 Degrees Requires Assistance Unsupported Stance, Alternating Feet on 2 Steps w/Minimum Assist Stair Unsupported Tandem Stance Small Step- 30 seconds Unilateral Leg Stance Lifts Leg/Unable to Hold Total Score Donis Total Score (out of 56 points) 32 Donis Impairment Rating 40 to 59% Impaired (Score 23- 33) Mejia Fall Scale Copyright Permission PT-OP-E Functional Tests Start: 10/12/17 18:11 Freq: Status: Active Protocol: Document 12/23/18 09:45 DCW (Rec: 12/23/18 10:02 DCW [id number]) Functional Tests 6 Minute Walk Test Distance 933' Device Used 4WW PT-OP-G Mobility & Gait Start: 12/23/18 10:02 Freq: Status: Active Protocol: Document 12/23/18 09:45 DCW (Rec: 12/23/18 10:20 DCW [id number]) OP Gait Assessment Gait Gait Assistance Required: Contact Guard Assist Distance (Feet) 155 Assistive Devices Assistive Device None,Gait Belt Gait Deviations General Gait Pattern Antalgic,Ataxic,Decreased Stride Length,Decreased Feet Clearance,Flexed Trunk,Lateral Trunk Lean PT-OP-M Strength Start: 10/12/17 18:11 Freq: Status: Active Protocol: Document 12/23/18 09:45 DCW (Rec: 12/23/18 10:02 DCW [id number]) Hip Strength Hip Manual Muscle Testing Right Flexion (L2) 5 Normal Abduction 5 Normal Adduction 5 Normal Left Flexion (L2) 4+ Good+ Abduction 5 Normal Adduction 5 Normal Knee Strength Knee Manual Muscle Testing Right Flexion (S2) 5 Normal Extension (L3) 5 Normal Left Flexion (S2) 4+ Good+ Extension (L3) 5 Normal Ankle/Foot Strength Ankle and Foot Manual Muscle Testing Right Dorsiflexion (L4) 2- Poor- Plantarflexion (S1) 3+ Fair+ Left Dorsiflexion (L4) 4+ Good+ Plantarflexion (S1) 5 Normal PT-OP-Q Treatments Start: 09/28/17 15:21 Freq: Status: Active Protocol: Document 03/03/19 09:45 DCW (Rec: 03/03/19 10:28 DCW [id number]) Gym Equipment Shuttle Recovery Bilateral Heel Raises Resistance 137# Reps/Time x60 Unilateral Squats Resistance 100# Shuttle Recovery Platform Stable Reps/Time x20 each Bilateral Squats Resistance 162# Shuttle Recovery Platform Stable Reps/Time x30 Therapeutic Exercises Other Exercises 1 Other Exercise Name Resisted Side-stepping Side bilateral Resistance Blue Equipment Used T-band Gait Training Gait Activity 3 Device Used 4WW Level of Assistance SBA Distance/Duration 630' Treatment Focus Increased gait distance/ tolerance 2 Description Ambulation /s AD Device Used none Level of Assistance CGA Distance/Duration 50' x1, 140' x1, 170' x1 Treatment Focus Focus on increased step length , continous movement, arm swing Comments Pt ambulated around gym and avoided obstacles. PT-OP-T Assessment and Plan Start: 09/28/17 15:21 Freq: Status: Active Protocol: Document 03/03/19 09:45 DCW (Rec: 03/03/19 10:28 DCW [id number]) Physical Therapy Assessment Impairments Impairments Activity Tolerance,Balance, Functional Activities, Functional Mobility,Gait,ROM, Strength Goals Eight Impairment Unassisted Gait Short Term Goal (STG) Pt to ambulate 200' SBA /s AD STG Duration Met Biostatistics Professor Goal (LTG) Pt to ambulate 300' SBA /s AD LTG Duration 02/23/19 Seven Impairment Donis Short Term Goal (STG) Pt to score 22/56 on Donis Balance scale STG Duration Met Biostatistics Professor Goal (LTG) Pt to score 35/56 on Donis Balance scale LTG Duration 02/23/19 Six Impairment Static Standing Balance Short Term Goal (STG) Pt to stand independently for 2 minutes STG Duration Met Biostatistics Professor Goal (LTG) Pt to stand independently for 3 minutes LTG Duration 02/23/19 - Improving Five Impairment 6 MWT Custodial Goal (LTG) Pt to ambulate 1000' without rest using 4WW during 6 MWT (09/21/18: 902') LTG Duration 02/23/19 - Improving Four Impairment Foot slap Short Term Goal (STG) Pt to regularly wear R AFO to limit foot drop and help normalize gait pattern STG Duration Met Three Impairment Transfers Short Term Goal (STG) Pt to transfer independently from mat<->w/c with no assistive devices STG Duration Met Two Impairment Ankle weakness Custodial Goal (LTG) Pt to display 2/5 MMT in R DF, 4/5 MMT in R PF, and 4+/5 MMT in all other bilateral ankle movements LTG Duration 02/23/19 - Improving One Impairment Activity tolerance Custodial Goal (LTG) Pt to tolerate activity up to 15 minutes without a break LTG Duration 02/23/19 - Improving Assessment Summary Assessment Pt still obviously struggling with some fatigue following his recent illness, but was able to improve activity tolerance as he continued to work. Physical Therapy Plan Frequency and Duration Frequency of Treatment 2x/Week Duration of Treatment 3 months Plan of Care Start Date 12/23/18 Plan of Care End Date 03/25/19 Therapeutic Interventions Therapeutic Interventions Aquatic Therapy,Balance Training,Gait Training,Home Exercise Program,Manual Therapy,Neuromuscular Re- education,Soft Tissue Mobilization,Therapeutic Activities,Therapeutic Exercises Next Visit Focus/Plan Next Note Type Treatment Note Next Visit Plan Continue focus on opposing arm swing during gait, increasing activity tolerance, increasing gait /s an AD, and improving balance
--- NOTE | 2019-03-10 10:30 | PT.OTN ---
Current Diagnoses Foot drop, right foot (03/10/19) Muscle weakness (generalized) (03/10/19) Unsteadiness on feet (03/10/19) Unspecified abnormalities of gait and mobility (03/10/19) Traumatic subdural hemorrhage with loss of consciousness greater than 24 hours with return to pre-existing conscious level, subsequent encounter (03/10/19) History of falling (03/10/19) Physical Therapy Treatment Note PT-OP-A Visit Information Start: 09/28/17 15:21 Freq: Status: Active Protocol: Document 03/10/19 09:45 DCW (Rec: 03/10/19 10:29 DCW [id number]) Out-Patient Physical Therapy Visit Information Visit Information Visit Type Treatment Note Visit Start Time 09:45 Visit Stop Time 10:30 Total Visit Minutes 45 Visit Number 01/07 Number of CERAMIC MOLD DESIGNER Visits 0 Evaluation Information Evaluation Date 07/27/17 PT-OP-B Current Condition Start: 09/28/17 15:21 Freq: Status: Active Protocol: Document 10/12/17 13:45 DCW (Rec: 10/12/17 18:33 DCW [id number]) Current Condition History of Current Condition Onset Date 02/05/17 History of Current Condition See Pt's initial evaluation in Therapy Source Current Functional Impairments (Reported) Functional Limitations- Mobility/Gait Transfers:W/C<->Mat Stand- pivot: Independent PT-OP-C Subjective Start: 09/28/17 15:21 Freq: Status: Active Protocol: Document 03/10/19 09:45 DCW (Rec: 03/10/19 10:29 DCW [id number]) OP-PT Subjective Patient Comments Patient Comments Pt reports he still hasn't been feeling great ever since he started feeling ill two weeks ago. PT-OP-D Balance Start: 10/12/17 18:11 Freq: Status: Active Protocol: Document 12/23/18 09:45 DCW (Rec: 12/23/18 10:20 DCW [id number]) OP-PT Balance Assessment Standing Balance Standing Balance Comments Double leg, Eyes open: 2'17 Donis Balance Assessment Evaluation Sitting to Standing Ability Independent w/Hands Unsupported Stance Supervision- 2 minutes Sitting Unsupported, Feet on Floor Safely- 2 minutes Standing to Sitting Ability Assist, Control w/Hands Transfer Ability Safely, Hand Use Unsupported Stance- Eyes Closed 3 seconds Unsupported Stance- Eyes Open Independent, <30 seconds Reaching Forward Standing Safely, 5 inches Pick- Up Object From Floor Supervision Look Behind Shoulder - Standing Turns Sideways Only Turning 360 Degrees Requires Assistance Unsupported Stance, Alternating Feet on 2 Steps w/Minimum Assist Stair Unsupported Tandem Stance Small Step- 30 seconds Unilateral Leg Stance Lifts Leg/Unable to Hold Total Score Donis Total Score (out of 56 points) 32 Donis Impairment Rating 40 to 59% Impaired (Score 23- 33) Mejia Fall Scale Copyright Permission PT-OP-E Functional Tests Start: 10/12/17 18:11 Freq: Status: Active Protocol: Document 12/23/18 09:45 DCW (Rec: 12/23/18 10:02 DCW [id number]) Functional Tests 6 Minute Walk Test Distance 933' Device Used 4WW PT-OP-G Mobility & Gait Start: 12/23/18 10:02 Freq: Status: Active Protocol: Document 12/23/18 09:45 DCW (Rec: 12/23/18 10:20 DCW [id number]) OP Gait Assessment Gait Gait Assistance Required: Contact Guard Assist Distance (Feet) 155 Assistive Devices Assistive Device None,Gait Belt Gait Deviations General Gait Pattern Antalgic,Ataxic,Decreased Stride Length,Decreased Feet Clearance,Flexed Trunk,Lateral Trunk Lean PT-OP-M Strength Start: 10/12/17 18:11 Freq: Status: Active Protocol: Document 12/23/18 09:45 DCW (Rec: 12/23/18 10:02 DCW [id number]) Hip Strength Hip Manual Muscle Testing Right Flexion (L2) 5 Normal Abduction 5 Normal Adduction 5 Normal Left Flexion (L2) 4+ Good+ Abduction 5 Normal Adduction 5 Normal Knee Strength Knee Manual Muscle Testing Right Flexion (S2) 5 Normal Extension (L3) 5 Normal Left Flexion (S2) 4+ Good+ Extension (L3) 5 Normal Ankle/Foot Strength Ankle and Foot Manual Muscle Testing Right Dorsiflexion (L4) 2- Poor- Plantarflexion (S1) 3+ Fair+ Left Dorsiflexion (L4) 4+ Good+ Plantarflexion (S1) 5 Normal PT-OP-Q Treatments Start: 09/28/17 15:21 Freq: Status: Active Protocol: Document 03/10/19 09:45 DCW (Rec: 03/10/19 10:29 DCW [id number]) Gym Equipment Shuttle Recovery Bilateral Heel Raises Resistance 137# Reps/Time x60 Unilateral Squats Resistance 100# Shuttle Recovery Platform Stable Reps/Time x20 each Bilateral Squats Resistance 162# Shuttle Recovery Platform Stable Reps/Time x30 Gait Training Gait Activity 3 Device Used 4WW Level of Assistance SBA Distance/Duration 680' Treatment Focus Increased gait distance/ tolerance 2 Description Ambulation /s AD Device Used none Level of Assistance CGA Distance/Duration 250' x1 Treatment Focus Focus on increased step length , continous movement, arm swing Comments Pt ambulated around gym and avoided obstacles. Neuro Re-Education Treatment Balance Activities 1 Details Balloon Volley Surface Firm Comments Min Ax1 to prevent retro lean/ LOB PT-OP-T Assessment and Plan Start: 09/28/17 15:21 Freq: Status: Active Protocol: Document 03/10/19 09:45 DCW (Rec: 03/10/19 10:29 DCW [id number]) Physical Therapy Assessment Impairments Impairments Activity Tolerance,Balance, Functional Activities, Functional Mobility,Gait,ROM, Strength Goals Eight Impairment Unassisted Gait Short Term Goal (STG) Pt to ambulate 200' SBA /s AD STG Duration Met Sanitation Worker Goal (LTG) Pt to ambulate 300' SBA /s AD LTG Duration 02/23/19 Seven Impairment Donis Short Term Goal (STG) Pt to score 22/56 on Donis Balance scale STG Duration Met Alf Goal (LTG) Pt to score 35/56 on Donis Balance scale LTG Duration 02/23/19 Six Impairment Static Standing Balance Short Term Goal (STG) Pt to stand independently for 2 minutes STG Duration Met Alf Goal (LTG) Pt to stand independently for 3 minutes LTG Duration 02/23/19 - Improving Five Impairment 6 MWT Alf Goal (LTG) Pt to ambulate 1000' without rest using 4WW during 6 MWT (09/21/18: 902') LTG Duration 02/23/19 - Improving Four Impairment Foot slap Short Term Goal (STG) Pt to regularly wear R AFO to limit foot drop and help normalize gait pattern STG Duration Met Three Impairment Transfers Short Term Goal (STG) Pt to transfer independently from mat<->w/c with no assistive devices STG Duration Met Two Impairment Ankle weakness Alf Goal (LTG) Pt to display 2/5 MMT in R DF, 4/5 MMT in R PF, and 4+/5 MMT in all other bilateral ankle movements LTG Duration 02/23/19 - Improving One Impairment Activity tolerance Sanitation Worker Goal (LTG) Pt to tolerate activity up to 15 minutes without a break LTG Duration 02/23/19 - Improving Assessment Summary Assessment Pt back to his typical ambulation distance, 200+ feet without an assistive device. Physical Therapy Plan Frequency and Duration Frequency of Treatment 2x/Week Duration of Treatment 3 months Plan of Care Start Date 12/23/18 Plan of Care End Date 03/25/19 Therapeutic Interventions Therapeutic Interventions Aquatic Therapy,Balance Training,Gait Training,Home Exercise Program,Manual Therapy,Neuromuscular Re- education,Soft Tissue Mobilization,Therapeutic Activities,Therapeutic Exercises Next Visit Focus/Plan Next Note Type Treatment Note Next Visit Plan Continue focus on opposing arm swing during gait, increasing activity tolerance, increasing gait /s an AD, and improving balance
--- NOTE | 2019-03-14 11:14 | PT.OTN ---
Current Diagnoses Foot drop, right foot (03/14/19) Muscle weakness (generalized) (03/14/19) Unsteadiness on feet (03/14/19) Unspecified abnormalities of gait and mobility (03/14/19) Traumatic subdural hemorrhage with loss of consciousness greater than 24 hours with return to pre-existing conscious level, subsequent encounter (03/14/19) History of falling (03/14/19) Physical Therapy Treatment Note PT-OP-A Visit Information Start: 09/28/17 15:21 Freq: Status: Active Protocol: Document 03/14/19 10:30 DCW (Rec: 03/14/19 11:13 DCW [id number]) Out-Patient Physical Therapy Visit Information Visit Information Visit Type Treatment Note Visit Start Time 10:30 Visit Stop Time 11:15 Total Visit Minutes 45 Visit Number 02/07 Number of UTILITY SALES AND SERVICE MANAGER Visits 0 Evaluation Information Evaluation Date 07/27/17 PT-OP-B Current Condition Start: 09/28/17 15:21 Freq: Status: Active Protocol: Document 10/12/17 13:45 DCW (Rec: 10/12/17 18:33 DCW [id number]) Current Condition History of Current Condition Onset Date 02/05/17 History of Current Condition See Pt's initial evaluation in Therapy Source Current Functional Impairments (Reported) Functional Limitations- Mobility/Gait Transfers:W/C<->Mat Stand- pivot: Independent PT-OP-C Subjective Start: 09/28/17 15:21 Freq: Status: Active Protocol: Document 03/14/19 10:30 DCW (Rec: 03/14/19 11:13 DCW [id number]) OP-PT Subjective Patient Comments Patient Comments Pt reports he is doing better after feeling sick the past few weeks. PT-OP-D Balance Start: 10/12/17 18:11 Freq: Status: Active Protocol: Document 12/23/18 09:45 DCW (Rec: 12/23/18 10:20 DCW [id number]) OP-PT Balance Assessment Standing Balance Standing Balance Comments Double leg, Eyes open: 2 Donis Balance Assessment Evaluation Sitting to Standing Ability Independent w/Hands Unsupported Stance Supervision- 2 minutes Sitting Unsupported, Feet on Floor Safely- 2 minutes Standing to Sitting Ability Assist, Control w/Hands Transfer Ability Safely, Hand Use Unsupported Stance- Eyes Closed 3 seconds Unsupported Stance- Eyes Open Independent, <30 seconds Reaching Forward Standing Safely, 5 inches Pick- Up Object From Floor Supervision Look Behind Shoulder - Standing Turns Sideways Only Turning 360 Degrees Requires Assistance Unsupported Stance, Alternating Feet on 2 Steps w/Minimum Assist Stair Unsupported Tandem Stance Small Step- 30 seconds Unilateral Leg Stance Lifts Leg/Unable to Hold Total Score Donis Total Score (out of 56 points) 32 Donis Impairment Rating 40 to 59% Impaired (Score 23- 33) Mejia Fall Scale Copyright Permission PT-OP-E Functional Tests Start: 10/12/17 18:11 Freq: Status: Active Protocol: Document 12/23/18 09:45 DCW (Rec: 12/23/18 10:02 DCW [id number]) Functional Tests 6 Minute Walk Test Distance 933' Device Used 4WW PT-OP-G Mobility & Gait Start: 12/23/18 10:02 Freq: Status: Active Protocol: Document 12/23/18 09:45 DCW (Rec: 12/23/18 10:20 DCW [id number]) OP Gait Assessment Gait Gait Assistance Required: Contact Guard Assist Distance (Feet) 155 Assistive Devices Assistive Device None,Gait Belt Gait Deviations General Gait Pattern Antalgic,Ataxic,Decreased Stride Length,Decreased Feet Clearance,Flexed Trunk,Lateral Trunk Lean PT-OP-M Strength Start: 10/12/17 18:11 Freq: Status: Active Protocol: Document 12/23/18 09:45 DCW (Rec: 12/23/18 10:02 DCW [id number]) Hip Strength Hip Manual Muscle Testing Right Flexion (L2) 5 Normal Abduction 5 Normal Adduction 5 Normal Left Flexion (L2) 4+ Good+ Abduction 5 Normal Adduction 5 Normal Knee Strength Knee Manual Muscle Testing Right Flexion (S2) 5 Normal Extension (L3) 5 Normal Left Flexion (S2) 4+ Good+ Extension (L3) 5 Normal Ankle/Foot Strength Ankle and Foot Manual Muscle Testing Right Dorsiflexion (L4) 2- Poor- Plantarflexion (S1) 3+ Fair+ Left Dorsiflexion (L4) 4+ Good+ Plantarflexion (S1) 5 Normal PT-OP-Q Treatments Start: 09/28/17 15:21 Freq: Status: Active Protocol: Document 03/14/19 10:30 DCW (Rec: 03/14/19 11:13 DCW [id number]) Gym Equipment Shuttle Recovery Bilateral Heel Raises Resistance 137# Reps/Time x60 Unilateral Squats Resistance 100# Shuttle Recovery Platform Stable Reps/Time x20 each Bilateral Squats Resistance 162# Shuttle Recovery Platform Stable Reps/Time x30 Shuttle Balance 1 Details Blue Comments Wide WILIAN Gait Training Gait Activity 3 Device Used 4WW Level of Assistance SBA Distance/Duration 520' Treatment Focus Increased gait distance/ tolerance 2 Description Ambulation /s AD Device Used none Level of Assistance CGA Distance/Duration 250' x1 Treatment Focus Focus on increased step length , continous movement, arm swing Comments Pt ambulated around gym and avoided obstacles. PT-OP-T Assessment and Plan Start: 09/28/17 15:21 Freq: Status: Active Protocol: Document 03/14/19 10:30 DCW (Rec: 03/14/19 11:13 DCW [id number]) Physical Therapy Assessment Goals Eight Impairment Unassisted Gait Short Term Goal (STG) Pt to ambulate 200' SBA /s AD STG Duration Met Correction Goal (LTG) Pt to ambulate 300' SBA /s AD LTG Duration 02/23/19 Seven Impairment Donis Short Term Goal (STG) Pt to score 22/56 on Donis Balance scale STG Duration Met Ranch Supervisor Goal (LTG) Pt to score 35/56 on Donis Balance scale LTG Duration 02/23/19 Six Impairment Static Standing Balance Short Term Goal (STG) Pt to stand independently for 2 minutes STG Duration Met Ranch Supervisor Goal (LTG) Pt to stand independently for 3 minutes LTG Duration 02/23/19 - Improving Five Impairment 6 MWT Ranch Supervisor Goal (LTG) Pt to ambulate 1000' without rest using 4WW during 6 MWT (09/21/18: 902') LTG Duration 02/23/19 - Improving Four Impairment Foot slap Short Term Goal (STG) Pt to regularly wear R AFO to limit foot drop and help normalize gait pattern STG Duration Met Three Impairment Transfers Short Term Goal (STG) Pt to transfer independently from mat<->w/c with no assistive devices STG Duration Met Two Impairment Ankle weakness Ranch Supervisor Goal (LTG) Pt to display 2/5 MMT in R DF, 4/5 MMT in R PF, and 4+/5 MMT in all other bilateral ankle movements LTG Duration 02/23/19 - Improving One Impairment Activity tolerance Ranch Supervisor Goal (LTG) Pt to tolerate activity up to 15 minutes without a break LTG Duration 02/23/19 - Improving Assessment Summary Assessment Pt started out doing fairly well, however by the end of his session was struggling more than normal with his typical activities like the Shuttle leg press. Physical Therapy Plan Frequency and Duration Frequency of Treatment 2x/Week Duration of Treatment 3 months Plan of Care Start Date 12/23/18 Plan of Care End Date 03/25/19 Therapeutic Interventions Therapeutic Interventions Aquatic Therapy,Balance Training,Gait Training,Home Exercise Program,Manual Therapy,Neuromuscular Re- education,Soft Tissue Mobilization,Therapeutic Activities,Therapeutic Exercises Next Visit Focus/Plan Next Note Type Treatment Note Next Visit Plan Continue focus on opposing arm swing during gait, increasing activity tolerance, increasing gait /s an AD, and improving balance
--- NOTE | 2019-03-17 09:45 | PT.OTN ---
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 with return to pre-existing conscious level, subsequent encounter (03/17/19) History of falling (03/17/19) Physical Therapy Treatment Note PT-OP-A Visit Information Start: 09/28/17 15:21 Freq: Status: Active Protocol: Document 03/17/19 09:00 DCW (Rec: 03/17/19 09:45 DCW [id number]) Out-Patient Physical Therapy Visit Information Visit Information Visit Type Progress Note Visit Start Time 09:00 Visit Stop Time 09:45 Total Visit Minutes 45 Visit Number 03/09 Number of ESTATE [employer]UST TAX PRINCIPAL Visits 0 Evaluation Information Evaluation Date 07/27/17 PT-OP-B Current Condition Start: 09/28/17 15:21 Freq: Status: Active Protocol: Document 10/12/17 13:45 DCW (Rec: 10/12/17 18:33 DCW [id number]) Current Condition History of Current Condition Onset Date 02/05/17 History of Current Condition See Pt's initial evaluation in Therapy Source Current Functional Impairments (Reported) Functional Limitations- Mobility/Gait Transfers:W/C<->Mat Stand- pivot: Independent PT-OP-C Subjective Start: 09/28/17 15:21 Freq: Status: Active Protocol: Document 03/17/19 09:00 DCW (Rec: 03/17/19 09:45 DCW [id number]) OP-PT Subjective Patient Comments Patient Comments Pt reports he is feeling pretty good today. PT-OP-D Balance Start: 10/12/17 18:11 Freq: Status: Active Protocol: Document 12/23/18 09:45 DCW (Rec: 12/23/18 10:20 DCW [id number]) OP-PT Balance Assessment Standing Balance Standing Balance Comments Double leg, Eyes open: 2 Donis Balance Assessment Evaluation Sitting to Standing Ability Independent w/Hands Unsupported Stance Supervision- 2 minutes Sitting Unsupported, Feet on Floor Safely- 2 minutes Standing to Sitting Ability Assist, Control w/Hands Transfer Ability Safely, Hand Use Unsupported Stance- Eyes Closed 3 seconds Unsupported Stance- Eyes Open Independent, <30 seconds Reaching Forward Standing Safely, 5 inches Pick- Up Object From Floor Supervision Look Behind Shoulder - Standing Turns Sideways Only Turning 360 Degrees Requires Assistance Unsupported Stance, Alternating Feet on 2 Steps w/Minimum Assist Stair Unsupported Tandem Stance Small Step- 30 seconds Unilateral Leg Stance Lifts Leg/Unable to Hold Total Score Donis Total Score (out of 56 points) 32 Donis Impairment Rating 40 to 59% Impaired (Score 23- 33) Mejia Fall Scale Copyright Permission PT-OP-E Functional Tests Start: 10/12/17 18:11 Freq: Status: Active Protocol: Document 12/23/18 09:45 DCW (Rec: 12/23/18 10:02 DCW [id number]) Functional Tests 6 Minute Walk Test Distance 933' Device Used 4WW PT-OP-G Mobility & Gait Start: 12/23/18 10:02 Freq: Status: Active Protocol: Document 12/23/18 09:45 DCW (Rec: 12/23/18 10:20 DCW [id number]) OP Gait Assessment Gait Gait Assistance Required: Contact Guard Assist Distance (Feet) 155 Assistive Devices Assistive Device None,Gait Belt Gait Deviations General Gait Pattern Antalgic,Ataxic,Decreased Stride Length,Decreased Feet Clearance,Flexed Trunk,Lateral Trunk Lean PT-OP-M Strength Start: 10/12/17 18:11 Freq: Status: Active Protocol: Document 12/23/18 09:45 DCW (Rec: 12/23/18 10:02 DCW [id number]) Hip Strength Hip Manual Muscle Testing Right Flexion (L2) 5 Normal Abduction 5 Normal Adduction 5 Normal Left Flexion (L2) 4+ Good+ Abduction 5 Normal Adduction 5 Normal Knee Strength Knee Manual Muscle Testing Right Flexion (S2) 5 Normal Extension (L3) 5 Normal Left Flexion (S2) 4+ Good+ Extension (L3) 5 Normal Ankle/Foot Strength Ankle and Foot Manual Muscle Testing Right Dorsiflexion (L4) 2- Poor- Plantarflexion (S1) 3+ Fair+ Left Dorsiflexion (L4) 4+ Good+ Plantarflexion (S1) 5 Normal PT-OP-Q Treatments Start: 09/28/17 15:21 Freq: Status: Active Protocol: Document 03/17/19 09:00 DCW (Rec: 03/17/19 09:45 DCW [id number]) Gym Equipment Shuttle Balance 1 Details Blue Comments Wide WILIAN Therapeutic Exercises Standing Exercises Standing Marching Standing Exercise Name Marching Side bilateral Equipment Used // bars Reps/Minutes x25 Comments focus on arm swing Other Exercises Step-ups Other Exercise Name Step-ups with bilateral rail Equipment Used 6 step Reps/Minutes x20 each foot Gait Training Gait Activity 3 Device Used 4WW Level of Assistance SBA Distance/Duration 650' Treatment Focus Increased gait distance/ tolerance 2 Description Ambulation /s AD Device Used none Level of Assistance CGA Distance/Duration 325' x1 Treatment Focus Focus on increased step length , continous movement, arm swing Comments Pt ambulated around gym and avoided obstacles. PT-OP-T Assessment and Plan Start: 09/28/17 15:21 Freq: Status: Active Protocol: Document 03/17/19 09:00 DCW (Rec: 03/17/19 09:45 DCW [id number]) Physical Therapy Assessment Goals Eight Impairment Unassisted Gait Short Term Goal (STG) Pt to ambulate 200' SBA /s AD STG Duration Met Unit Tender Goal (LTG) Pt to ambulate 300' SBA /s AD LTG Duration 02/23/19 Seven Impairment Donis Short Term Goal (STG) Pt to score 22/56 on Donis Balance scale STG Duration Met Unit Tender Goal (LTG) Pt to score 35/56 on Donis Balance scale LTG Duration 02/23/19 Six Impairment Static Standing Balance Short Term Goal (STG) Pt to stand independently for 2 minutes STG Duration Met [facility] Goal (LTG) Pt to stand independently for 3 minutes LTG Duration 02/23/19 - Improving Five Impairment 6 MWT Unit Tender Goal (LTG) Pt to ambulate 1000' without rest using 4WW during 6 MWT (09/21/18: 902') LTG Duration 02/23/19 - Improving Four Impairment Foot slap Short Term Goal (STG) Pt to regularly wear R AFO to limit foot drop and help normalize gait pattern STG Duration Met Three Impairment Transfers Short Term Goal (STG) Pt to transfer independently from mat<->w/c with no assistive devices STG Duration Met Two Impairment Ankle weakness [facility] Goal (LTG) Pt to display 2/5 MMT in R DF, 4/5 MMT in R PF, and 4+/5 MMT in all other bilateral ankle movements LTG Duration 02/23/19 - Improving One Impairment Activity tolerance Unit Tender Goal (LTG) Pt to tolerate activity up to 15 minutes without a break LTG Duration 02/23/19 - Improving Assessment Summary Assessment Pt walked his further distance today without an assistive device, crossing the 300' judd for the first time. He continues to have difficulty with reciprocal arm swing. Physical Therapy Plan Frequency and Duration Frequency of Treatment 2x/Week Duration of Treatment 3 months Plan of Care Start Date 12/23/18 Plan of Care End Date 03/25/19 Therapeutic Interventions Therapeutic Interventions Aquatic Therapy,Balance Training,Gait Training,Home Exercise Program,Manual Therapy,Neuromuscular Re- education,Soft Tissue Mobilization,Therapeutic Activities,Therapeutic Exercises Next Visit Focus/Plan Next Note Type Treatment Note Next Visit Plan Continue focus on opposing arm swing during gait, increasing activity tolerance, increasing gait /s an AD, and improving balance
--- NOTE | 2019-03-21 13:55 | PT.OTN ---
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 with return to pre-existing conscious level, subsequent encounter (03/21/19) History of falling (03/21/19) Physical Therapy Treatment Note PT-OP-A Visit Information Start: 09/28/17 15:21 Freq: Status: Active Protocol: Document 03/21/19 10:30 DCW (Rec: 03/21/19 13:55 DCW [id number]) Out-Patient Physical Therapy Visit Information Visit Information Visit Type Progress Note Visit Start Time 09:00 Visit Stop Time 09:45 Total Visit Minutes 45 Visit Number 06/09 Number of BINDERY LEADPERSON Visits 0 Evaluation Information Evaluation Date 07/27/17 PT-OP-B Current Condition Start: 09/28/17 15:21 Freq: Status: Active Protocol: Document 10/12/17 13:45 DCW (Rec: 10/12/17 18:33 DCW [id number]) Current Condition History of Current Condition Onset Date 02/05/17 History of Current Condition See Pt's initial evaluation in Therapy Source Current Functional Impairments (Reported) Functional Limitations- Mobility/Gait Transfers:W/C<->Mat Stand- pivot: Independent PT-OP-C Subjective Start: 09/28/17 15:21 Freq: Status: Active Protocol: Document 03/21/19 10:30 DCW (Rec: 03/21/19 13:55 DCW [id number]) OP-PT Subjective Patient Comments Patient Comments Pt a little tired coming in today. PT-OP-D Balance Start: 10/12/17 18:11 Freq: Status: Active Protocol: Document 03/21/19 10:30 DCW (Rec: 03/21/19 11:12 DCW [id number]) OP-PT Balance Assessment Standing Balance Standing Balance Comments Double leg, Eyes open: 1 Donis Balance Assessment Evaluation Sitting to Standing Ability Independent w/Hands Unsupported Stance Supervision- 2 minutes Sitting Unsupported, Feet on Floor Safely- 2 minutes Standing to Sitting Ability Assist, Control w/Hands Transfer Ability Safely, Hand Use Unsupported Stance- Eyes Closed 3 seconds Unsupported Stance- Eyes Open Supervision to maintain Reaching Forward Standing Safely, 5 inches Pick- Up Object From Floor Within 2 inches, Unable Look Behind Shoulder - Standing Turns Sideways Only Turning 360 Degrees Requires Assistance Unsupported Stance, Alternating Feet on 2 Steps w/Minimum Assist Stair Unsupported Tandem Stance Small Step- 30 seconds Unilateral Leg Stance Lifts Leg/Unable to Hold Total Score Donis Total Score (out of 56 points) 32 Donis Impairment Rating 40 to 59% Impaired (Score 23- 33) Mejia Fall Scale Copyright Permission PT-OP-E Functional Tests Start: 10/12/17 18:11 Freq: Status: Active Protocol: Document 03/21/19 10:30 DCW (Rec: 03/21/19 11:12 DCW [id number]) Functional Tests 6 Minute Walk Test Distance 957' Device Used 4WW PT-OP-G Mobility & Gait Start: 12/23/18 10:02 Freq: Status: Active Protocol: Document 03/21/19 10:30 DCW (Rec: 03/21/19 11:12 DCW [id number]) OP Gait Assessment Gait Gait Assistance Required: Contact Guard Assist Distance (Feet) 325 Assistive Devices Assistive Device None,Gait Belt Gait Deviations General Gait Pattern Antalgic,Ataxic,Decreased Stride Length,Decreased Feet Clearance,Flexed Trunk,Lateral Trunk Lean PT-OP-M Strength Start: 10/12/17 18:11 Freq: Status: Active Protocol: Document 03/21/19 10:30 DCW (Rec: 03/21/19 11:12 DCW [id number]) Hip Strength Hip Manual Muscle Testing Right Flexion (L2) 5 Normal Abduction 5 Normal Adduction 5 Normal Left Flexion (L2) 4+ Good+ Abduction 5 Normal Adduction 5 Normal Knee Strength Knee Manual Muscle Testing Right Flexion (S2) 5 Normal Extension (L3) 5 Normal Left Flexion (S2) 4+ Good+ Extension (L3) 5 Normal Ankle/Foot Strength Ankle and Foot Manual Muscle Testing Right Dorsiflexion (L4) 2 Poor Plantarflexion (S1) 3+ Fair+ Left Dorsiflexion (L4) 4+ Good+ Plantarflexion (S1) 5 Normal PT-OP-Q Treatments Start: 09/28/17 15:21 Freq: Status: Active Protocol: Document 03/21/19 10:30 DCW (Rec: 03/21/19 13:55 DCW [id number]) Gait Training Gait Activity 3 Device Used 4WW Level of Assistance SBA Distance/Duration 957' Treatment Focus Increased gait distance/ tolerance Comments 6 MWT 2 Description Ambulation /s AD Device Used none Level of Assistance CGA Distance/Duration 325' x1 Treatment Focus Focus on increased step length , continous movement, arm swing Comments Pt ambulated around gym and avoided obstacles. PT-OP-T Assessment and Plan Start: 09/28/17 15:21 Freq: Status: Active Protocol: Document 03/21/19 10:30 DCW (Rec: 03/21/19 13:55 DCW [id number]) Physical Therapy Assessment Goals Eight Impairment Unassisted Gait Short Term Goal (STG) Pt to ambulate 300' SBA /s AD STG Duration Met Halfway Goal (LTG) Pt to ambulate 400' SBA /s AD LTG Duration 05/21/19 Seven Impairment Dnois Short Term Goal (STG) Pt to score 22/56 on Donis Balance scale STG Duration Met Halfway Goal (LTG) Pt to score 35/56 on Donis Balance scale LTG Duration 05/21/19 Six Impairment Static Standing Balance Short Term Goal (STG) Pt to stand independently for 2 minutes STG Duration Met [employer] Goal (LTG) Pt to stand independently for 3 minutes LTG Duration 05/21/19 - Improving Five Impairment 6 MWT Halfway Goal (LTG) Pt to ambulate 1000' without rest using 4WW during 6 MWT (03/21/19: 957') LTG Duration 05/21/19 - Improving Four Impairment Foot slap Short Term Goal (STG) Pt to regularly wear R AFO to limit foot drop and help normalize gait pattern STG Duration Met Three Impairment Transfers Short Term Goal (STG) Pt to transfer independently from mat<->w/c with no assistive devices STG Duration Met Two Impairment Ankle weakness [employer] Goal (LTG) Pt to display 2/5 MMT in R DF, 4/5 MMT in R PF, and 4+/5 MMT in all other bilateral ankle movements LTG Duration 05/21/19 - Improving One Impairment Activity tolerance Halfway Goal (LTG) Pt to tolerate activity up to 15 minutes without a break LTG Duration 05/21/19 - Improving Assessment Summary Assessment Recent focus has been on pt's ambulation with and without his assistive device, as well as improving his activity tolerance. This is where he has made the most gains since his last reassessment, showing improvement over his 6MWT and a large increase (155'->325') in the distance he is able to walk without an AD. Pt continues to struggle with static balance, as demonstrated by his unchanged Donis Balance score. Therapy should continue to work on ambulation quality and tolerance, however a renewed effort should also be made to focus on more static balance training. Physical Therapy Plan Frequency and Duration Frequency of Treatment 2x/Week Duration of Treatment 3 months Plan of Care Start Date 03/21/19 Plan of Care End Date 06/19/19 Therapeutic Interventions Therapeutic Interventions Aquatic Therapy,Balance Training,Gait Training,Home Exercise Program,Manual Therapy,Neuromuscular Re- education,Soft Tissue Mobilization,Therapeutic Activities,Therapeutic Exercises Next Visit Focus/Plan Next Note Type Treatment Note Next Visit Plan Continue focus on opposing arm swing during gait, increasing activity tolerance, increasing gait /s an AD, and improving balance
--- NOTE | 2019-03-24 10:30 | PT.OTN ---
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 greater than 24 hours with return to pre-existing conscious level, subsequent encounter (03/24/19) History of falling (03/24/19) Physical Therapy Treatment Note PT-OP-A Visit Information Start: 09/28/17 15:21 Freq: Status: Active Protocol: Document 03/24/19 09:45 DCW (Rec: 03/24/19 10:30 DCW [id number]) Out-Patient Physical Therapy Visit Information Visit Information Visit Type Treatment Note Visit Start Time 09:45 Visit Stop Time 10:30 Total Visit Minutes 45 Visit Number 07/10 Number of AUTOMATION QA ANALYST Visits 0 Evaluation Information Evaluation Date 07/27/17 PT-OP-B Current Condition Start: 09/28/17 15:21 Freq: Status: Active Protocol: Document 10/12/17 13:45 DCW (Rec: 10/12/17 18:33 DCW [id number]) Current Condition History of Current Condition Onset Date 02/05/17 History of Current Condition See Pt's initial evaluation in Therapy Source Current Functional Impairments (Reported) Functional Limitations- Mobility/Gait Transfers:W/C<->Mat Stand- pivot: Independent PT-OP-C Subjective Start: 09/28/17 15:21 Freq: Status: Active Protocol: Document 03/24/19 09:45 DCW (Rec: 03/24/19 10:30 DCW [id number]) OP-PT Subjective Patient Comments Patient Comments Pt doing well today, but frustrated because he feels that he didn't do well with his reassessment on Wednesday. PT-OP-D Balance Start: 10/12/17 18:11 Freq: Status: Active Protocol: Document 03/21/19 10:30 DCW (Rec: 03/21/19 11:12 DCW [id number]) OP-PT Balance Assessment Standing Balance Standing Balance Comments Double leg, Eyes open: 1'36 Donis Balance Assessment Evaluation Sitting to Standing Ability Independent w/Hands Unsupported Stance Supervision- 2 minutes Sitting Unsupported, Feet on Floor Safely- 2 minutes Standing to Sitting Ability Assist, Control w/Hands Transfer Ability Safely, Hand Use Unsupported Stance- Eyes Closed 3 seconds Unsupported Stance- Eyes Open Supervision to maintain Reaching Forward Standing Safely, 5 inches Pick- Up Object From Floor Within 2 inches, Unable Look Behind Shoulder - Standing Turns Sideways Only Turning 360 Degrees Requires Assistance Unsupported Stance, Alternating Feet on 2 Steps w/Minimum Assist Stair Unsupported Tandem Stance Small Step- 30 seconds Unilateral Leg Stance Lifts Leg/Unable to Hold Total Score Donis Total Score (out of 56 points) 32 Donis Impairment Rating 40 to 59% Impaired (Score 23- 33) Mejia Fall Scale Copyright Permission PT-OP-E Functional Tests Start: 10/12/17 18:11 Freq: Status: Active Protocol: Document 03/21/19 10:30 DCW (Rec: 03/21/19 11:12 DCW [id number]) Functional Tests 6 Minute Walk Test Distance 957' Device Used 4WW PT-OP-G Mobility & Gait Start: 12/23/18 10:02 Freq: Status: Active Protocol: Document 03/21/19 10:30 DCW (Rec: 03/21/19 11:12 DCW [id number]) OP Gait Assessment Gait Gait Assistance Required: Contact Guard Assist Distance (Feet) 325 Assistive Devices Assistive Device None,Gait Belt Gait Deviations General Gait Pattern Antalgic,Ataxic,Decreased Stride Length,Decreased Feet Clearance,Flexed Trunk,Lateral Trunk Lean PT-OP-M Strength Start: 10/12/17 18:11 Freq: Status: Active Protocol: Document 03/21/19 10:30 DCW (Rec: 03/21/19 11:12 DCW [id number]) Hip Strength Hip Manual Muscle Testing Right Flexion (L2) 5 Normal Abduction 5 Normal Adduction 5 Normal Left Flexion (L2) 4+ Good+ Abduction 5 Normal Adduction 5 Normal Knee Strength Knee Manual Muscle Testing Right Flexion (S2) 5 Normal Extension (L3) 5 Normal Left Flexion (S2) 4+ Good+ Extension (L3) 5 Normal Ankle/Foot Strength Ankle and Foot Manual Muscle Testing Right Dorsiflexion (L4) 2 Poor Plantarflexion (S1) 3+ Fair+ Left Dorsiflexion (L4) 4+ Good+ Plantarflexion (S1) 5 Normal PT-OP-Q Treatments Start: 09/28/17 15:21 Freq: Status: Active Protocol: Document 03/24/19 09:45 DCW (Rec: 03/24/19 10:30 DCW [id number]) Gym Equipment Shuttle Balance 1 Details Green Comments Wide WILIAN Gait Training Gait Activity 3 Device Used 4WW Level of Assistance SBA Distance/Duration 630' Treatment Focus Increased gait distance/ tolerance Comments 6 MWT 2 Description Ambulation /s AD Device Used none Level of Assistance CGA Distance/Duration 160' x1, 140' x1 Treatment Focus Focus on increased step length , continous movement, arm swing Comments Pt ambulated around gym and avoided obstacles. Neuro Re-Education Treatment Balance Activities 1 Details Balloon Volley Surface Firm PT-OP-T Assessment and Plan Start: 09/28/17 15:21 Freq: Status: Active Protocol: Document 03/24/19 09:45 DCW (Rec: 03/24/19 10:30 DCW [id number]) Physical Therapy Assessment Goals Eight Impairment Unassisted Gait Short Term Goal (STG) Pt to ambulate 300' SBA /s AD STG Duration Met Assisted Goal (LTG) Pt to ambulate 400' SBA /s AD LTG Duration 05/21/19 Seven Impairment Donis Short Term Goal (STG) Pt to score 22/56 on Donis Balance scale STG Duration Met Assisted Goal (LTG) Pt to score 35/56 on Donis Balance scale LTG Duration 05/21/19 Six Impairment Static Standing Balance Short Term Goal (STG) Pt to stand independently for 2 minutes STG Duration Met [employer] Goal (LTG) Pt to stand independently for 3 minutes LTG Duration 05/21/19 - Improving Five Impairment 6 MWT Assisted Goal (LTG) Pt to ambulate 1000' without rest using 4WW during 6 MWT (03/21/19: 957') LTG Duration 05/21/19 - Improving Four Impairment Foot slap Short Term Goal (STG) Pt to regularly wear R AFO to limit foot drop and help normalize gait pattern STG Duration Met Three Impairment Transfers Short Term Goal (STG) Pt to transfer independently from mat<->w/c with no assistive devices STG Duration Met Two Impairment Ankle weakness Assisted Goal (LTG) Pt to display 2/5 MMT in R DF, 4/5 MMT in R PF, and 4+/5 MMT in all other bilateral ankle movements LTG Duration 05/21/19 - Improving One Impairment Activity tolerance [employer] Goal (LTG) Pt to tolerate activity up to 15 minutes without a break LTG Duration 05/21/19 - Improving Assessment Summary Assessment Pt had a better day today, improving on the shuttle balance, and did well balancing during Balloon Volley, although he still struggles with retro falls. Physical Therapy Plan Frequency and Duration Frequency of Treatment 2x/Week Duration of Treatment 3 months Plan of Care Start Date 03/21/19 Plan of Care End Date 06/19/19 Therapeutic Interventions Therapeutic Interventions Aquatic Therapy,Balance Training,Gait Training,Home Exercise Program,Manual Therapy,Neuromuscular Re- education,Soft Tissue Mobilization,Therapeutic Activities,Therapeutic Exercises Next Visit Focus/Plan Next Note Type Treatment Note Next Visit Plan Continue focus on opposing arm swing during gait, increasing activity tolerance, increasing gait /s an AD, and improving balance
--- NOTE | 2019-03-27 10:28 | PT.OTN ---
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 with return to pre-existing conscious level, subsequent encounter (03/27/19) History of falling (03/27/19) Physical Therapy Treatment Note PT-OP-A Visit Information Start: 09/28/17 15:21 Freq: Status: Active Protocol: Document 03/27/19 09:45 DCW (Rec: 03/27/19 10:27 DCW [id number]) Out-Patient Physical Therapy Visit Information Visit Information Visit Type Treatment Note Visit Start Time 09:45 Visit Stop Time 10:30 Total Visit Minutes 45 Visit Number 3/ Number of TERRITORY ACCOUNT MANAGER Visits 0 Evaluation Information Evaluation Date 07/27/17 PT-OP-B Current Condition Start: 09/28/17 15:21 Freq: Status: Active Protocol: Document 10/12/17 13:45 DCW (Rec: 10/12/17 18:33 DCW [id number]) Current Condition History of Current Condition Onset Date 02/05/17 History of Current Condition See Pt's initial evaluation in Therapy Source Current Functional Impairments (Reported) Functional Limitations- Mobility/Gait Transfers:W/C<->Mat Stand- pivot: Independent PT-OP-C Subjective Start: 09/28/17 15:21 Freq: Status: Active Protocol: Document 03/27/19 09:45 DCW (Rec: 03/27/19 10:27 DCW [id number]) OP-PT Subjective Patient Comments Patient Comments I don't know how I'm feeling. I never know. We'll just have to get going and see how it goes. PT-OP-D Balance Start: 10/12/17 18:11 Freq: Status: Active Protocol: Document 03/21/19 10:30 DCW (Rec: 03/21/19 11:12 DCW [id number]) OP-PT Balance Assessment Standing Balance Standing Balance Comments Double leg, Eyes open: 1'36 Donis Balance Assessment Evaluation Sitting to Standing Ability Independent w/Hands Unsupported Stance Supervision- 2 minutes Sitting Unsupported, Feet on Floor Safely- 2 minutes Standing to Sitting Ability Assist, Control w/Hands Transfer Ability Safely, Hand Use Unsupported Stance- Eyes Closed 3 seconds Unsupported Stance- Eyes Open Supervision to maintain Reaching Forward Standing Safely, 5 inches Pick- Up Object From Floor Within 2 inches, Unable Look Behind Shoulder - Standing Turns Sideways Only Turning 360 Degrees Requires Assistance Unsupported Stance, Alternating Feet on 2 Steps w/Minimum Assist Stair Unsupported Tandem Stance Small Step- 30 seconds Unilateral Leg Stance Lifts Leg/Unable to Hold Total Score Donis Total Score (out of 56 points) 32 Donis Impairment Rating 40 to 59% Impaired (Score 23- 33) Mejia Fall Scale Copyright Permission PT-OP-E Functional Tests Start: 10/12/17 18:11 Freq: Status: Active Protocol: Document 03/21/19 10:30 DCW (Rec: 03/21/19 11:12 DCW [id number]) Functional Tests 6 Minute Walk Test Distance 957' Device Used 4WW PT-OP-G Mobility & Gait Start: 12/23/18 10:02 Freq: Status: Active Protocol: Document 03/21/19 10:30 DCW (Rec: 03/21/19 11:12 DCW [id number]) OP Gait Assessment Gait Gait Assistance Required: Contact Guard Assist Distance (Feet) 325 Assistive Devices Assistive Device None,Gait Belt Gait Deviations General Gait Pattern Antalgic,Ataxic,Decreased Stride Length,Decreased Feet Clearance,Flexed Trunk,Lateral Trunk Lean PT-OP-M Strength Start: 10/12/17 18:11 Freq: Status: Active Protocol: Document 03/21/19 10:30 DCW (Rec: 03/21/19 11:12 DCW [id number]) Hip Strength Hip Manual Muscle Testing Right Flexion (L2) 5 Normal Abduction 5 Normal Adduction 5 Normal Left Flexion (L2) 4+ Good+ Abduction 5 Normal Adduction 5 Normal Knee Strength Knee Manual Muscle Testing Right Flexion (S2) 5 Normal Extension (L3) 5 Normal Left Flexion (S2) 4+ Good+ Extension (L3) 5 Normal Ankle/Foot Strength Ankle and Foot Manual Muscle Testing Right Dorsiflexion (L4) 2 Poor Plantarflexion (S1) 3+ Fair+ Left Dorsiflexion (L4) 4+ Good+ Plantarflexion (S1) 5 Normal PT-OP-Q Treatments Start: 09/28/17 15:21 Freq: Status: Active Protocol: Document 03/27/19 09:45 DCW (Rec: 03/27/19 10:27 DCW [id number]) Gym Equipment Shuttle Balance 1 Details Yellow Comments Wide WILIAN Gait Training Gait Activity 3 Device Used 4WW Level of Assistance SBA Distance/Duration 710' Treatment Focus Increased gait distance/ tolerance Comments 6 MWT 2 Description Ambulation /s AD Device Used none Level of Assistance CGA Distance/Duration 150' x1, 80' x2 Treatment Focus Focus on increased step length , continous movement, arm swing Comments Pt ambulated around gym and avoided obstacles. Neuro Re-Education Treatment Balance Activities 3 Details Hurdles/Foam at rail Equipment Hurdles, Foam Comments Fwd 2 Details Cone/Ball transfers Comments Static stance PT-OP-T Assessment and Plan Start: 09/28/17 15:21 Freq: Status: Active Protocol: Document 03/27/19 09:45 DCW (Rec: 03/27/19 10:27 DCW [id number]) Physical Therapy Assessment Impairments Impairments Activity Tolerance,Balance, Functional Activities, Functional Mobility,Gait,ROM, Strength Goals Eight Impairment Unassisted Gait Short Term Goal (STG) Pt to ambulate 300' SBA /s AD STG Duration Met Laundry Machine Mechanic Goal (LTG) Pt to ambulate 400' SBA /s AD LTG Duration 05/21/19 Seven Impairment Donis Short Term Goal (STG) Pt to score 22/56 on Donis Balance scale STG Duration Met Assisted Goal (LTG) Pt to score 35/56 on Donis Balance scale LTG Duration 05/21/19 Six Impairment Static Standing Balance Short Term Goal (STG) Pt to stand independently for 2 minutes STG Duration Met Laundry Machine Mechanic Goal (LTG) Pt to stand independently for 3 minutes LTG Duration 05/21/19 - Improving Five Impairment 6 MWT Assisted Goal (LTG) Pt to ambulate 1000' without rest using 4WW during 6 MWT (03/21/19: 957') LTG Duration 05/21/19 - Improving Four Impairment Foot slap Short Term Goal (STG) Pt to regularly wear R AFO to limit foot drop and help normalize gait pattern STG Duration Met Three Impairment Transfers Short Term Goal (STG) Pt to transfer independently from mat<->w/c with no assistive devices STG Duration Met Two Impairment Ankle weakness Assisted Goal (LTG) Pt to display 2/5 MMT in R DF, 4/5 MMT in R PF, and 4+/5 MMT in all other bilateral ankle movements LTG Duration 05/21/19 - Improving One Impairment Activity tolerance Laundry Machine Mechanic Goal (LTG) Pt to tolerate activity up to 15 minutes without a break LTG Duration 05/21/19 - Improving Assessment Summary Assessment Pt pretty fatigued, required very short rest breaks after nearly every activity. Physical Therapy Plan Frequency and Duration Frequency of Treatment 2x/Week Duration of Treatment 3 months Plan of Care Start Date 03/21/19 Plan of Care End Date 06/19/19 Therapeutic Interventions Therapeutic Interventions Aquatic Therapy,Balance Training,Gait Training,Home Exercise Program,Manual Therapy,Neuromuscular Re- education,Soft Tissue Mobilization,Therapeutic Activities,Therapeutic Exercises Next Visit Focus/Plan Next Note Type Treatment Note Next Visit Plan Continue focus on opposing arm swing during gait, increasing activity tolerance, increasing gait /s an AD, and improving balance
--- NOTE | 2019-03-31 10:31 | PT.OTN ---
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 with return to pre-existing conscious level, subsequent encounter (03/31/19) History of falling (03/31/19) Physical Therapy Treatment Note PT-OP-A Visit Information Start: 09/28/17 15:21 Freq: Status: Active Protocol: Document 03/31/19 09:45 DCW (Rec: 03/31/19 10:31 DCW [id number]) Out-Patient Physical Therapy Visit Information Visit Information Visit Type Treatment Note Visit Start Time 09:45 Visit Stop Time 10:30 Total Visit Minutes 45 Visit Number 4/ Number of CORPORATE TUTOR Visits 0 Evaluation Information Evaluation Date 07/27/17 PT-OP-B Current Condition Start: 09/28/17 15:21 Freq: Status: Active Protocol: Document 10/12/17 13:45 DCW (Rec: 10/12/17 18:33 DCW [id number]) Current Condition History of Current Condition Onset Date 02/05/17 History of Current Condition See Pt's initial evaluation in Therapy Source Current Functional Impairments (Reported) Functional Limitations- Mobility/Gait Transfers:W/C<->Mat Stand- pivot: Independent PT-OP-C Subjective Start: 09/28/17 15:21 Freq: Status: Active Protocol: Document 03/31/19 09:45 DCW (Rec: 03/31/19 10:31 DCW [id number]) OP-PT Subjective Patient Comments Patient Comments Pt reports he has been having some problems with his legs this morning, notes his right leg is feeling weak. PT-OP-D Balance Start: 10/12/17 18:11 Freq: Status: Active Protocol: Document 03/21/19 10:30 DCW (Rec: 03/21/19 11:12 DCW [id number]) OP-PT Balance Assessment Standing Balance Standing Balance Comments Double leg, Eyes open: 1'36 Donis Balance Assessment Evaluation Sitting to Standing Ability Independent w/Hands Unsupported Stance Supervision- 2 minutes Sitting Unsupported, Feet on Floor Safely- 2 minutes Standing to Sitting Ability Assist, Control w/Hands Transfer Ability Safely, Hand Use Unsupported Stance- Eyes Closed 3 seconds Unsupported Stance- Eyes Open Supervision to maintain Reaching Forward Standing Safely, 5 inches Pick- Up Object From Floor Within 2 inches, Unable Look Behind Shoulder - Standing Turns Sideways Only Turning 360 Degrees Requires Assistance Unsupported Stance, Alternating Feet on 2 Steps w/Minimum Assist Stair Unsupported Tandem Stance Small Step- 30 seconds Unilateral Leg Stance Lifts Leg/Unable to Hold Total Score Donis Total Score (out of 56 points) 32 Donis Impairment Rating 40 to 59% Impaired (Score 23- 33) Mejia Fall Scale Copyright Permission PT-OP-E Functional Tests Start: 10/12/17 18:11 Freq: Status: Active Protocol: Document 03/21/19 10:30 DCW (Rec: 03/21/19 11:12 DCW [id number]) Functional Tests 6 Minute Walk Test Distance 957' Device Used 4WW PT-OP-G Mobility & Gait Start: 12/23/18 10:02 Freq: Status: Active Protocol: Document 03/21/19 10:30 DCW (Rec: 03/21/19 11:12 DCW [id number]) OP Gait Assessment Gait Gait Assistance Required: Contact Guard Assist Distance (Feet) 325 Assistive Devices Assistive Device None,Gait Belt Gait Deviations General Gait Pattern Antalgic,Ataxic,Decreased Stride Length,Decreased Feet Clearance,Flexed Trunk,Lateral Trunk Lean PT-OP-M Strength Start: 10/12/17 18:11 Freq: Status: Active Protocol: Document 03/21/19 10:30 DCW (Rec: 03/21/19 11:12 DCW [id number]) Hip Strength Hip Manual Muscle Testing Right Flexion (L2) 5 Normal Abduction 5 Normal Adduction 5 Normal Left Flexion (L2) 4+ Good+ Abduction 5 Normal Adduction 5 Normal Knee Strength Knee Manual Muscle Testing Right Flexion (S2) 5 Normal Extension (L3) 5 Normal Left Flexion (S2) 4+ Good+ Extension (L3) 5 Normal Ankle/Foot Strength Ankle and Foot Manual Muscle Testing Right Dorsiflexion (L4) 2 Poor Plantarflexion (S1) 3+ Fair+ Left Dorsiflexion (L4) 4+ Good+ Plantarflexion (S1) 5 Normal PT-OP-Q Treatments Start: 09/28/17 15:21 Freq: Status: Active Protocol: Document 03/31/19 09:45 DCW (Rec: 03/31/19 10:31 DCW [id number]) Gym Equipment Shuttle Balance 1 Details Blue Comments Wide WILIAN Gait Training Gait Activity 3 Device Used 4WW Level of Assistance SBA Distance/Duration 510' Treatment Focus Increased gait distance/ tolerance Comments 6 MWT 2 Description Ambulation /s AD Device Used none Level of Assistance CGA Distance/Duration 190' x1, 170' x1 Treatment Focus Focus on increased step length , continous movement, arm swing Comments Pt ambulated around gym and avoided obstacles. Neuro Re-Education Treatment Balance Activities 2 Details Cone/Ball transfers Comments Static stance 1 Details Balloon Volley Surface Firm PT-OP-T Assessment and Plan Start: 09/28/17 15:21 Freq: Status: Active Protocol: Document 03/31/19 09:45 DCW (Rec: 03/31/19 10:31 DCW [id number]) Physical Therapy Assessment Impairments Impairments Activity Tolerance,Balance, Functional Activities, Functional Mobility,Gait,ROM, Strength Goals Eight Impairment Unassisted Gait Short Term Goal (STG) Pt to ambulate 300' SBA /s AD STG Duration Met Group Home Goal (LTG) Pt to ambulate 400' SBA /s AD LTG Duration 05/21/19 Seven Impairment Donis Short Term Goal (STG) Pt to score 22/56 on Donis Balance scale STG Duration Met Group Home Goal (LTG) Pt to score 35/56 on Donis Balance scale LTG Duration 05/21/19 Six Impairment Static Standing Balance Short Term Goal (STG) Pt to stand independently for 2 minutes STG Duration Met River Boat Captain Goal (LTG) Pt to stand independently for 3 minutes LTG Duration 05/21/19 - Improving Five Impairment 6 MWT Group Home Goal (LTG) Pt to ambulate 1000' without rest using 4WW during 6 MWT (03/21/19: 957') LTG Duration 05/21/19 - Improving Four Impairment Foot slap Short Term Goal (STG) Pt to regularly wear R AFO to limit foot drop and help normalize gait pattern STG Duration Met Three Impairment Transfers Short Term Goal (STG) Pt to transfer independently from mat<->w/c with no assistive devices STG Duration Met Two Impairment Ankle weakness Group Home Goal (LTG) Pt to display 2/5 MMT in R DF, 4/5 MMT in R PF, and 4+/5 MMT in all other bilateral ankle movements LTG Duration 05/21/19 - Improving One Impairment Activity tolerance Group Home Goal (LTG) Pt to tolerate activity up to 15 minutes without a break LTG Duration 05/21/19 - Improving Assessment Summary Assessment Pt much less fatigued today, able to improve his gait distance back to what he had been getting to previously. Physical Therapy Plan Frequency and Duration Frequency of Treatment 2x/Week Duration of Treatment 3 months Plan of Care Start Date 03/21/19 Plan of Care End Date 06/19/19 Therapeutic Interventions Therapeutic Interventions Aquatic Therapy,Balance Training,Gait Training,Home Exercise Program,Manual Therapy,Neuromuscular Re- education,Soft Tissue Mobilization,Therapeutic Activities,Therapeutic Exercises Next Visit Focus/Plan Next Note Type Treatment Note Next Visit Plan Continue focus on opposing arm swing during gait, increasing activity tolerance, increasing gait /s an AD, and improving balance
--- NOTE | 2019-04-03 10:28 | PT.OTN ---
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 with return to pre-existing conscious level, subsequent encounter (04/03/19) History of falling (04/03/19) Physical Therapy Treatment Note PT-OP-A Visit Information Start: 09/28/17 15:21 Freq: Status: Active Protocol: Document 04/03/19 09:45 DCW (Rec: 04/03/19 10:27 DCW [id number]) Out-Patient Physical Therapy Visit Information Visit Information Visit Type Treatment Note Visit Start Time 09:45 Visit Stop Time 10:30 Total Visit Minutes 45 Visit Number 10/07 Number of MAIL ORDER CLERK Visits 0 Evaluation Information Evaluation Date 07/27/17 PT-OP-B Current Condition Start: 09/28/17 15:21 Freq: Status: Active Protocol: Document 10/12/17 13:45 DCW (Rec: 10/12/17 18:33 DCW [id number]) Current Condition History of Current Condition Onset Date 02/05/17 History of Current Condition See Pt's initial evaluation in Therapy Source Current Functional Impairments (Reported) Functional Limitations- Mobility/Gait Transfers:W/C<->Mat Stand- pivot: Independent PT-OP-C Subjective Start: 09/28/17 15:21 Freq: Status: Active Protocol: Document 04/03/19 09:45 DCW (Rec: 04/03/19 10:27 DCW [id number]) OP-PT Subjective Patient Comments Patient Comments I feel alright, I think. I never actually know. PT-OP-D Balance Start: 10/12/17 18:11 Freq: Status: Active Protocol: Document 03/21/19 10:30 DCW (Rec: 03/21/19 11:12 DCW [id number]) OP-PT Balance Assessment Standing Balance Standing Balance Comments Double leg, Eyes open: 1 Donis Balance Assessment Evaluation Sitting to Standing Ability Independent w/Hands Unsupported Stance Supervision- 2 minutes Sitting Unsupported, Feet on Floor Safely- 2 minutes Standing to Sitting Ability Assist, Control w/Hands Transfer Ability Safely, Hand Use Unsupported Stance- Eyes Closed 3 seconds Unsupported Stance- Eyes Open Supervision to maintain Reaching Forward Standing Safely, 5 inches Pick- Up Object From Floor Within 2 inches, Unable Look Behind Shoulder - Standing Turns Sideways Only Turning 360 Degrees Requires Assistance Unsupported Stance, Alternating Feet on 2 Steps w/Minimum Assist Stair Unsupported Tandem Stance Small Step- 30 seconds Unilateral Leg Stance Lifts Leg/Unable to Hold Total Score Donis Total Score (out of 56 points) 32 Donis Impairment Rating 40 to 59% Impaired (Score 23- 33) Mejia Fall Scale Copyright Permission PT-OP-E Functional Tests Start: 10/12/17 18:11 Freq: Status: Active Protocol: Document 03/21/19 10:30 DCW (Rec: 03/21/19 11:12 DCW [id number]) Functional Tests 6 Minute Walk Test Distance 957' Device Used 4WW PT-OP-G Mobility & Gait Start: 12/23/18 10:02 Freq: Status: Active Protocol: Document 03/21/19 10:30 DCW (Rec: 03/21/19 11:12 DCW [id number]) OP Gait Assessment Gait Gait Assistance Required: Contact Guard Assist Distance (Feet) 325 Assistive Devices Assistive Device None,Gait Belt Gait Deviations General Gait Pattern Antalgic,Ataxic,Decreased Stride Length,Decreased Feet Clearance,Flexed Trunk,Lateral Trunk Lean PT-OP-M Strength Start: 10/12/17 18:11 Freq: Status: Active Protocol: Document 03/21/19 10:30 DCW (Rec: 03/21/19 11:12 DCW [id number]) Hip Strength Hip Manual Muscle Testing Right Flexion (L2) 5 Normal Abduction 5 Normal Adduction 5 Normal Left Flexion (L2) 4+ Good+ Abduction 5 Normal Adduction 5 Normal Knee Strength Knee Manual Muscle Testing Right Flexion (S2) 5 Normal Extension (L3) 5 Normal Left Flexion (S2) 4+ Good+ Extension (L3) 5 Normal Ankle/Foot Strength Ankle and Foot Manual Muscle Testing Right Dorsiflexion (L4) 2 Poor Plantarflexion (S1) 3+ Fair+ Left Dorsiflexion (L4) 4+ Good+ Plantarflexion (S1) 5 Normal PT-OP-Q Treatments Start: 09/28/17 15:21 Freq: Status: Active Protocol: Document 04/03/19 09:45 DCW (Rec: 04/03/19 10:27 DCW [id number]) Gym Equipment Shuttle Recovery Bilateral Heel Raises Resistance 137# Reps/Time x60 Unilateral Squats Resistance 100# Shuttle Recovery Platform Stable Reps/Time x20 each Bilateral Squats Resistance 162# Shuttle Recovery Platform Stable Reps/Time x30 Gait Training Gait Activity 3 Device Used 4WW Level of Assistance SBA Distance/Duration 680' Treatment Focus Increased gait distance/ tolerance 2 Description Ambulation /s AD Device Used none Level of Assistance CGA Distance/Duration 360' x1 Treatment Focus Focus on increased step length , continous movement, arm swing Comments Pt ambulated around gym and avoided obstacles. Neuro Re-Education Treatment Balance Activities 2 Details Cone/Ball transfers Comments Static stance PT-OP-T Assessment and Plan Start: 09/28/17 15:21 Freq: Status: Active Protocol: Document 04/03/19 09:45 DCW (Rec: 04/03/19 10:27 DCW [id number]) Physical Therapy Assessment Impairments Impairments Activity Tolerance,Balance, Functional Activities, Functional Mobility,Gait,ROM, Strength Goals Eight Impairment Unassisted Gait Short Term Goal (STG) Pt to ambulate 300' SBA /s AD STG Duration Met Sales And Marketing Director Goal (LTG) Pt to ambulate 400' SBA /s AD LTG Duration 05/21/19 Seven Impairment Donis Short Term Goal (STG) Pt to score 22/56 on Donis Balance scale STG Duration Met Sales And Marketing Director Goal (LTG) Pt to score 35/56 on Donis Balance scale LTG Duration 05/21/19 Six Impairment Static Standing Balance Short Term Goal (STG) Pt to stand independently for 2 minutes STG Duration Met Sales And Marketing Director Goal (LTG) Pt to stand independently for 3 minutes LTG Duration 05/21/19 - Improving Five Impairment 6 MWT Sales And Marketing Director Goal (LTG) Pt to ambulate 1000' without rest using 4WW during 6 MWT (03/21/19: 957') LTG Duration 05/21/19 - Improving Four Impairment Foot slap Short Term Goal (STG) Pt to regularly wear R AFO to limit foot drop and help normalize gait pattern STG Duration Met Three Impairment Transfers Short Term Goal (STG) Pt to transfer independently from mat<->w/c with no assistive devices STG Duration Met Two Impairment Ankle weakness Fdc Goal (LTG) Pt to display 2/5 MMT in R DF, 4/5 MMT in R PF, and 4+/5 MMT in all other bilateral ankle movements LTG Duration 05/21/19 - Improving One Impairment Activity tolerance Sales And Marketing Director Goal (LTG) Pt to tolerate activity up to 15 minutes without a break LTG Duration 05/21/19 - Improving Assessment Summary Assessment Pt ambulated his furthest distance without assistance today, walking 360' without an AD. Pt followed that up by walking 680' with his FWW. Pt feels like he has been making noticeable progress every visit the past two weeks. Physical Therapy Plan Frequency and Duration Frequency of Treatment 2x/Week Duration of Treatment 3 months Plan of Care Start Date 03/21/19 Plan of Care End Date 06/19/19 Therapeutic Interventions Therapeutic Interventions Aquatic Therapy,Balance Training,Gait Training,Home Exercise Program,Manual Therapy,Neuromuscular Re- education,Soft Tissue Mobilization,Therapeutic Activities,Therapeutic Exercises Next Visit Focus/Plan Next Note Type Treatment Note Next Visit Plan Continue focus on opposing arm swing during gait, increasing activity tolerance, increasing gait /s an AD, and improving balance
--- NOTE | 2019-04-14 10:31 | PT.OTN ---
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 with return to pre-existing conscious level, subsequent encounter (04/14/19) History of falling (04/14/19) Physical Therapy Treatment Note PT-OP-A Visit Information Start: 09/28/17 15:21 Freq: Status: Active Protocol: Document 04/14/19 09:45 DCW (Rec: 04/14/19 10:31 DCW [id number]) Out-Patient Physical Therapy Visit Information Visit Information Visit Type Treatment Note Visit Start Time 09:45 Visit Stop Time 10:30 Total Visit Minutes 45 Visit Number 11/07 Number of VIDEO CONTROL OPERATOR Visits 0 Evaluation Information Evaluation Date 07/27/17 PT-OP-B Current Condition Start: 09/28/17 15:21 Freq: Status: Active Protocol: Document 10/12/17 13:45 DCW (Rec: 10/12/17 18:33 DCW [id number]) Current Condition History of Current Condition Onset Date 02/05/17 History of Current Condition See Pt's initial evaluation in Therapy Source Current Functional Impairments (Reported) Functional Limitations- Mobility/Gait Transfers:W/C<->Mat Stand- pivot: Independent PT-OP-C Subjective Start: 09/28/17 15:21 Freq: Status: Active Protocol: Document 04/14/19 09:45 DCW (Rec: 04/14/19 10:31 DCW [id number]) OP-PT Subjective Patient Comments Patient Comments Pt reports recent worsening LE numbness. Advised to discuss with PCP at his appointment next week. PT-OP-D Balance Start: 10/12/17 18:11 Freq: Status: Active Protocol: Document 03/21/19 10:30 DCW (Rec: 03/21/19 11:12 DCW [id number]) OP-PT Balance Assessment Standing Balance Standing Balance Comments Double leg, Eyes open: 1'36 Donis Balance Assessment Evaluation Sitting to Standing Ability Independent w/Hands Unsupported Stance Supervision- 2 minutes Sitting Unsupported, Feet on Floor Safely- 2 minutes Standing to Sitting Ability Assist, Control w/Hands Transfer Ability Safely, Hand Use Unsupported Stance- Eyes Closed 3 seconds Unsupported Stance- Eyes Open Supervision to maintain Reaching Forward Standing Safely, 5 inches Pick- Up Object From Floor Within 2 inches, Unable Look Behind Shoulder - Standing Turns Sideways Only Turning 360 Degrees Requires Assistance Unsupported Stance, Alternating Feet on 2 Steps w/Minimum Assist Stair Unsupported Tandem Stance Small Step- 30 seconds Unilateral Leg Stance Lifts Leg/Unable to Hold Total Score Donis Total Score (out of 56 points) 32 Donis Impairment Rating 40 to 59% Impaired (Score 23- 33) Mejia Fall Scale Copyright Permission PT-OP-E Functional Tests Start: 10/12/17 18:11 Freq: Status: Active Protocol: Document 03/21/19 10:30 DCW (Rec: 03/21/19 11:12 DCW [id number]) Functional Tests 6 Minute Walk Test Distance 957' Device Used 4WW PT-OP-G Mobility & Gait Start: 12/23/18 10:02 Freq: Status: Active Protocol: Document 03/21/19 10:30 DCW (Rec: 03/21/19 11:12 DCW [id number]) OP Gait Assessment Gait Gait Assistance Required: Contact Guard Assist Distance (Feet) 325 Assistive Devices Assistive Device None,Gait Belt Gait Deviations General Gait Pattern Antalgic,Ataxic,Decreased Stride Length,Decreased Feet Clearance,Flexed Trunk,Lateral Trunk Lean PT-OP-M Strength Start: 10/12/17 18:11 Freq: Status: Active Protocol: Document 03/21/19 10:30 DCW (Rec: 03/21/19 11:12 DCW [id number]) Hip Strength Hip Manual Muscle Testing Right Flexion (L2) 5 Normal Abduction 5 Normal Adduction 5 Normal Left Flexion (L2) 4+ Good+ Abduction 5 Normal Adduction 5 Normal Knee Strength Knee Manual Muscle Testing Right Flexion (S2) 5 Normal Extension (L3) 5 Normal Left Flexion (S2) 4+ Good+ Extension (L3) 5 Normal Ankle/Foot Strength Ankle and Foot Manual Muscle Testing Right Dorsiflexion (L4) 2 Poor Plantarflexion (S1) 3+ Fair+ Left Dorsiflexion (L4) 4+ Good+ Plantarflexion (S1) 5 Normal PT-OP-Q Treatments Start: 09/28/17 15:21 Freq: Status: Active Protocol: Document 11/15/19 09:45 DCW (Rec: 04/14/19 10:31 DCW [id number]) Gym Equipment Shuttle Recovery Bilateral Heel Raises Resistance 137# Reps/Time x60 Unilateral Squats Resistance 100# Shuttle Recovery Platform Stable Reps/Time x20 each Bilateral Squats Resistance 162# Shuttle Recovery Platform Stable Reps/Time x30 Therapeutic Exercises Standing Exercises Standing Marching Standing Exercise Name Toe-taps Side bilateral Resistance 5# Equipment Used Rail, 6 step Comments Metronome - 60 bpm Other Exercises 1 Other Exercise Name Resisted Side-stepping Side bilateral Resistance Green Equipment Used T-band Gait Training Gait Activity 2 Description Ambulation /s AD Device Used none Level of Assistance CGA Distance/Duration 200' x1 Treatment Focus Focus on increased step length , continous movement, arm swing Comments Pt ambulated around gym and avoided obstacles. Neuro Re-Education Treatment Balance Activities 1 Details Balloon Volley Surface Firm Comments /s AFO PT-OP-T Assessment and Plan Start: 09/28/17 15:21 Freq: Status: Active Protocol: Document 04/14/19 09:45 DCW (Rec: 04/14/19 10:31 DCW [id number]) Physical Therapy Assessment Impairments Impairments Activity Tolerance,Balance, Functional Activities, Functional Mobility,Gait,ROM, Strength Goals Eight Impairment Unassisted Gait Short Term Goal (STG) Pt to ambulate 300' SBA /s AD STG Duration Met Job Placement Counselor Goal (LTG) Pt to ambulate 400' SBA /s AD LTG Duration 05/21/19 Seven Impairment Donis Short Term Goal (STG) Pt to score 22/56 on Donis Balance scale STG Duration Met Job Placement Counselor Goal (LTG) Pt to score 35/56 on Donis Balance scale LTG Duration 05/21/19 Six Impairment Static Standing Balance Short Term Goal (STG) Pt to stand independently for 2 minutes STG Duration Met Job Placement Counselor Goal (LTG) Pt to stand independently for 3 minutes LTG Duration 05/21/19 - Improving Five Impairment 6 MWT Job Placement Counselor Goal (LTG) Pt to ambulate 1000' without rest using 4WW during 6 MWT (03/21/19: 957') LTG Duration 05/21/19 - Improving Four Impairment Foot slap Short Term Goal (STG) Pt to regularly wear R AFO to limit foot drop and help normalize gait pattern STG Duration Met Three Impairment Transfers Short Term Goal (STG) Pt to transfer independently from mat<->w/c with no assistive devices STG Duration Met Two Impairment Ankle weakness Job Placement Counselor Goal (LTG) Pt to display 2/5 MMT in R DF, 4/5 MMT in R PF, and 4+/5 MMT in all other bilateral ankle movements LTG Duration 05/21/19 - Improving One Impairment Activity tolerance Senior Care Goal (LTG) Pt to tolerate activity up to 15 minutes without a break LTG Duration 05/21/19 - Improving Assessment Summary Assessment Pt clearly fatigued today, increased SOB with activity, decreased ambulation distance. Pt frustrated at his perceived lack of progress. Physical Therapy Plan Frequency and Duration Frequency of Treatment 2x/Week Duration of Treatment 3 months Plan of Care Start Date 03/21/19 Plan of Care End Date 06/19/19 Therapeutic Interventions Therapeutic Interventions Aquatic Therapy,Balance Training,Gait Training,Home Exercise Program,Manual Therapy,Neuromuscular Re- education,Soft Tissue Mobilization,Therapeutic Activities,Therapeutic Exercises Next Visit Focus/Plan Next Note Type Treatment Note Next Visit Plan Continue focus on opposing arm swing during gait, increasing activity tolerance, increasing gait /s an AD, and improving balance
--- NOTE | 2019-04-18 10:28 | PT.OTN ---
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 with return to pre-existing conscious level, subsequent encounter (04/18/19) History of falling (04/18/19) Physical Therapy Treatment Note PT-OP-A Visit Information Start: 09/28/17 15:21 Freq: Status: Active Protocol: Document 04/18/19 09:35 DCW (Rec: 04/18/19 10:28 DCW [id number]) Out-Patient Physical Therapy Visit Information Visit Information Visit Type Treatment Note Visit Start Time 09:35 Visit Stop Time 10:20 Total Visit Minutes 45 Visit Number 12/07 Number of ANCILLARY SERVICES MANAGER THERAPY Visits 0 Evaluation Information Evaluation Date 07/27/17 PT-OP-B Current Condition Start: 09/28/17 15:21 Freq: Status: Active Protocol: Document 10/12/17 13:45 DCW (Rec: 10/12/17 18:33 DCW [id number]) Current Condition History of Current Condition Onset Date 02/05/17 History of Current Condition See Pt's initial evaluation in Therapy Source Current Functional Impairments (Reported) Functional Limitations- Mobility/Gait Transfers:W/C<->Mat Stand- pivot: Independent PT-OP-C Subjective Start: 09/28/17 15:21 Freq: Status: Active Protocol: Document 04/18/19 09:35 DCW (Rec: 04/18/19 10:28 DCW [id number]) OP-PT Subjective Patient Comments Patient Comments Pt reports he is feeling okay today. PT-OP-D Balance Start: 10/12/17 18:11 Freq: Status: Active Protocol: Document 03/21/19 10:30 DCW (Rec: 03/21/19 11:12 DCW [id number]) OP-PT Balance Assessment Standing Balance Standing Balance Comments Double leg, Eyes open: Donis Balance Assessment Evaluation Sitting to Standing Ability Independent w/Hands Unsupported Stance Supervision- 2 minutes Sitting Unsupported, Feet on Floor Safely- 2 minutes Standing to Sitting Ability Assist, Control w/Hands Transfer Ability Safely, Hand Use Unsupported Stance- Eyes Closed 3 seconds Unsupported Stance- Eyes Open Supervision to maintain Reaching Forward Standing Safely, 5 inches Pick- Up Object From Floor Within 2 inches, Unable Look Behind Shoulder - Standing Turns Sideways Only Turning 360 Degrees Requires Assistance Unsupported Stance, Alternating Feet on 2 Steps w/Minimum Assist Stair Unsupported Tandem Stance Small Step- 30 seconds Unilateral Leg Stance Lifts Leg/Unable to Hold Total Score Donis Total Score (out of 56 points) 32 Donis Impairment Rating 40 to 59% Impaired (Score 23- 33) Mejia Fall Scale Copyright Permission PT-OP-E Functional Tests Start: 10/12/17 18:11 Freq: Status: Active Protocol: Document 03/21/19 10:30 DCW (Rec: 03/21/19 11:12 DCW [id number]) Functional Tests 6 Minute Walk Test Distance 957' Device Used 4WW PT-OP-G Mobility & Gait Start: 12/23/18 10:02 Freq: Status: Active Protocol: Document 03/21/19 10:30 DCW (Rec: 03/21/19 11:12 DCW [id number]) OP Gait Assessment Gait Gait Assistance Required: Contact Guard Assist Distance (Feet) 325 Assistive Devices Assistive Device None,Gait Belt Gait Deviations General Gait Pattern Antalgic,Ataxic,Decreased Stride Length,Decreased Feet Clearance,Flexed Trunk,Lateral Trunk Lean PT-OP-M Strength Start: 10/12/17 18:11 Freq: Status: Active Protocol: Document 03/21/19 10:30 DCW (Rec: 03/21/19 11:12 DCW [id number]) Hip Strength Hip Manual Muscle Testing Right Flexion (L2) 5 Normal Abduction 5 Normal Adduction 5 Normal Left Flexion (L2) 4+ Good+ Abduction 5 Normal Adduction 5 Normal Knee Strength Knee Manual Muscle Testing Right Flexion (S2) 5 Normal Extension (L3) 5 Normal Left Flexion (S2) 4+ Good+ Extension (L3) 5 Normal Ankle/Foot Strength Ankle and Foot Manual Muscle Testing Right Dorsiflexion (L4) 2 Poor Plantarflexion (S1) 3+ Fair+ Left Dorsiflexion (L4) 4+ Good+ Plantarflexion (S1) 5 Normal PT-OP-Q Treatments Start: 09/28/17 15:21 Freq: Status: Active Protocol: Document 04/18/19 09:35 DCW (Rec: 04/18/19 10:28 DCW [id number]) Gym Equipment Shuttle Recovery Bilateral Heel Raises Resistance 137# Reps/Time x60 Unilateral Squats Resistance 100# Shuttle Recovery Platform Stable Reps/Time x20 each Bilateral Squats Resistance 162# Shuttle Recovery Platform Stable Reps/Time x30 Shuttle Balance 1 Details Blue Comments Wide WILIAN, ball toss Therapeutic Exercises Other Exercises 1 Other Exercise Name Resisted Side-stepping Side bilateral Resistance Blue Equipment Used T-band Gait Training Gait Activity 2 Description Ambulation /s AD Device Used none Level of Assistance CGA Distance/Duration 380' x1 Treatment Focus Focus on increased step length , continous movement, arm swing Comments Pt ambulated around gym and avoided obstacles. PT-OP-T Assessment and Plan Start: 09/28/17 15:21 Freq: Status: Active Protocol: Document 04/18/19 09:35 DCW (Rec: 04/18/19 10:28 DCW [id number]) Physical Therapy Assessment Impairments Impairments Activity Tolerance,Balance, Functional Activities, Functional Mobility,Gait,ROM, Strength Goals Eight Impairment Unassisted Gait Short Term Goal (STG) Pt to ambulate 300' SBA /s AD STG Duration Met Half-Way Goal (LTG) Pt to ambulate 400' SBA /s AD LTG Duration 05/21/19 Seven Impairment Donis Short Term Goal (STG) Pt to score 22/56 on Donis Balance scale STG Duration Met Half-Way Goal (LTG) Pt to score 35/56 on Donis Balance scale LTG Duration 05/21/19 Six Impairment Static Standing Balance Short Term Goal (STG) Pt to stand independently for 2 minutes STG Duration Met Half-Way Goal (LTG) Pt to stand independently for 3 minutes LTG Duration 05/21/19 - Improving Five Impairment 6 MWT Half-Way Goal (LTG) Pt to ambulate 1000' without rest using 4WW during 6 MWT (03/21/19: 957') LTG Duration 05/21/19 - Improving Four Impairment Foot slap Short Term Goal (STG) Pt to regularly wear R AFO to limit foot drop and help normalize gait pattern STG Duration Met Three Impairment Transfers Short Term Goal (STG) Pt to transfer independently from mat<->w/c with no assistive devices STG Duration Met Two Impairment Ankle weakness Tool Trouble Shooter Goal (LTG) Pt to display 2/5 MMT in R DF, 4/5 MMT in R PF, and 4+/5 MMT in all other bilateral ankle movements LTG Duration 05/21/19 - Improving One Impairment Activity tolerance Tool Trouble Shooter Goal (LTG) Pt to tolerate activity up to 15 minutes without a break LTG Duration 05/21/19 - Improving Assessment Summary Assessment Pt has potentially his best day of therapy ever today. Pt ambulated 380' CGA /s an assistive device, which is his longest distance, did well with the addition of the ball toss on the Shuttle Balance, and was still able to complete all other activities to his normal quality. Physical Therapy Plan Frequency and Duration Frequency of Treatment 2x/Week Duration of Treatment 3 months Plan of Care Start Date 03/21/19 Plan of Care End Date 06/19/19 Therapeutic Interventions Therapeutic Interventions Aquatic Therapy,Balance Training,Gait Training,Home Exercise Program,Manual Therapy,Neuromuscular Re- education,Soft Tissue Mobilization,Therapeutic Activities,Therapeutic Exercises Next Visit Focus/Plan Next Note Type Treatment Note Next Visit Plan Continue focus on opposing arm swing during gait, increasing activity tolerance, increasing gait /s an AD, and improving balance
--- NOTE | 2019-04-21 10:28 | PT.OTN ---
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 greater than 24 hours with return to pre-existing conscious level, subsequent encounter (04/21/19) History of falling (04/21/19) Physical Therapy Treatment Note PT-OP-A Visit Information Start: 09/28/17 15:21 Freq: Status: Active Protocol: Document 04/21/19 09:45 DCW (Rec: 04/21/19 10:27 DCW [id number]) Out-Patient Physical Therapy Visit Information Visit Information Visit Type Treatment Note Visit Start Time 09:45 Visit Stop Time 10:30 Total Visit Minutes 45 Visit Number 01/07 Number of AUTOMOTIVE FUEL SYSTEMS CONVERTER Visits 0 Evaluation Information Evaluation Date 07/27/17 PT-OP-B Current Condition Start: 09/28/17 15:21 Freq: Status: Active Protocol: Document 10/12/17 13:45 DCW (Rec: 10/12/17 18:33 DCW [id number]) Current Condition History of Current Condition Onset Date 02/05/17 History of Current Condition See Pt's initial evaluation in Therapy Source Current Functional Impairments (Reported) Functional Limitations- Mobility/Gait Transfers:W/C<->Mat Stand- pivot: Independent PT-OP-C Subjective Start: 09/28/17 15:21 Freq: Status: Active Protocol: Document 04/21/19 09:45 DCW (Rec: 04/21/19 10:27 DCW [id number]) OP-PT Subjective Patient Comments Patient Comments Pt reports he is feeling really good today, but that doesn't always translate well to therapy. PT-OP-D Balance Start: 10/12/17 18:11 Freq: Status: Active Protocol: Document 03/21/19 10:30 DCW (Rec: 03/21/19 11:12 DCW [id number]) OP-PT Balance Assessment Standing Balance Standing Balance Comments Double leg, Eyes open: 1'36 Donis Balance Assessment Evaluation Sitting to Standing Ability Independent w/Hands Unsupported Stance Supervision- 2 minutes Sitting Unsupported, Feet on Floor Safely- 2 minutes Standing to Sitting Ability Assist, Control w/Hands Transfer Ability Safely, Hand Use Unsupported Stance- Eyes Closed 3 seconds Unsupported Stance- Eyes Open Supervision to maintain Reaching Forward Standing Safely, 5 inches Pick- Up Object From Floor Within 2 inches, Unable Look Behind Shoulder - Standing Turns Sideways Only Turning 360 Degrees Requires Assistance Unsupported Stance, Alternating Feet on 2 Steps w/Minimum Assist Stair Unsupported Tandem Stance Small Step- 30 seconds Unilateral Leg Stance Lifts Leg/Unable to Hold Total Score Donis Total Score (out of 56 points) 32 Donis Impairment Rating 40 to 59% Impaired (Score 23- 33) Mejia Fall Scale Copyright Permission PT-OP-E Functional Tests Start: 10/12/17 18:11 Freq: Status: Active Protocol: Document 03/21/19 10:30 DCW (Rec: 03/21/19 11:12 DCW [id number]) Functional Tests 6 Minute Walk Test Distance 957' Device Used 4WW PT-OP-G Mobility & Gait Start: 12/23/18 10:02 Freq: Status: Active Protocol: Document 03/21/19 10:30 DCW (Rec: 03/21/19 11:12 DCW [id number]) OP Gait Assessment Gait Gait Assistance Required: Contact Guard Assist Distance (Feet) 325 Assistive Devices Assistive Device None,Gait Belt Gait Deviations General Gait Pattern Antalgic,Ataxic,Decreased Stride Length,Decreased Feet Clearance,Flexed Trunk,Lateral Trunk Lean PT-OP-M Strength Start: 10/12/17 18:11 Freq: Status: Active Protocol: Document 03/21/19 10:30 DCW (Rec: 03/21/19 11:12 DCW [id number]) Hip Strength Hip Manual Muscle Testing Right Flexion (L2) 5 Normal Abduction 5 Normal Adduction 5 Normal Left Flexion (L2) 4+ Good+ Abduction 5 Normal Adduction 5 Normal Knee Strength Knee Manual Muscle Testing Right Flexion (S2) 5 Normal Extension (L3) 5 Normal Left Flexion (S2) 4+ Good+ Extension (L3) 5 Normal Ankle/Foot Strength Ankle and Foot Manual Muscle Testing Right Dorsiflexion (L4) 2 Poor Plantarflexion (S1) 3+ Fair+ Left Dorsiflexion (L4) 4+ Good+ Plantarflexion (S1) 5 Normal PT-OP-Q Treatments Start: 09/28/17 15:21 Freq: Status: Active Protocol: Document 04/21/19 09:45 DCW (Rec: 04/21/19 10:27 DCW [id number]) Gym Equipment Shuttle Balance 1 Details Blue Comments Wide WILIAN, ball toss Therapeutic Exercises Other Exercises 1 Other Exercise Name Resisted Side-stepping Side bilateral Resistance Blue Equipment Used T-band Gait Training Gait Activity 2 Description Ambulation /s AD Device Used none Level of Assistance CGA Distance/Duration 360' x1 Treatment Focus Focus on increased step length , continous movement, arm swing Comments Pt ambulated around gym and avoided obstacles. Neuro Re-Education Treatment Balance Activities 2 Details Cone/Ball transfers Comments Static stance 1 Details Balloon Volley Surface Firm PT-OP-T Assessment and Plan Start: 09/28/17 15:21 Freq: Status: Active Protocol: Document 04/21/19 09:45 DCW (Rec: 04/21/19 10:27 DCW [id number]) Physical Therapy Assessment Impairments Impairments Activity Tolerance,Balance, Functional Activities, Functional Mobility,Gait,ROM, Strength Goals Eight Impairment Unassisted Gait Short Term Goal (STG) Pt to ambulate 300' SBA /s AD STG Duration Met Manager Of Production Goal (LTG) Pt to ambulate 400' SBA /s AD LTG Duration 05/21/19 Seven Impairment Donis Short Term Goal (STG) Pt to score 22/56 on Donis Balance scale STG Duration Met Manager Of Production Goal (LTG) Pt to score 35/56 on Donis Balance scale LTG Duration 05/21/19 Six Impairment Static Standing Balance Short Term Goal (STG) Pt to stand independently for 2 minutes STG Duration Met Manager Of Production Goal (LTG) Pt to stand independently for 3 minutes LTG Duration 05/21/19 - Improving Five Impairment 6 MWT Manager Of Production Goal (LTG) Pt to ambulate 1000' without rest using 4WW during 6 MWT (03/21/19: 957') LTG Duration 05/21/19 - Improving Four Impairment Foot slap Short Term Goal (STG) Pt to regularly wear R AFO to limit foot drop and help normalize gait pattern STG Duration Met Three Impairment Transfers Short Term Goal (STG) Pt to transfer independently from mat<->w/c with no assistive devices STG Duration Met Two Impairment Ankle weakness Manager Of Production Goal (LTG) Pt to display 2/5 MMT in R DF, 4/5 MMT in R PF, and 4+/5 MMT in all other bilateral ankle movements LTG Duration 05/21/19 - Improving One Impairment Activity tolerance Jail Goal (LTG) Pt to tolerate activity up to 15 minutes without a break LTG Duration 05/21/19 - Improving Assessment Summary Assessment Pt has been fairly consistently ambulating 350'+ during his sessions, tolerating increased activity, and overall making good progress. Physical Therapy Plan Frequency and Duration Frequency of Treatment 2x/Week Duration of Treatment 3 months Plan of Care Start Date 03/21/19 Plan of Care End Date 06/19/19 Therapeutic Interventions Therapeutic Interventions Aquatic Therapy,Balance Training,Gait Training,Home Exercise Program,Manual Therapy,Neuromuscular Re- education,Soft Tissue Mobilization,Therapeutic Activities,Therapeutic Exercises Next Visit Focus/Plan Next Note Type Treatment Note Next Visit Plan Continue focus on opposing arm swing during gait, increasing activity tolerance, increasing gait /s an AD, and improving balance
--- NOTE | 2019-05-02 10:32 | PT.OTN ---
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 with return to pre-existing conscious level, subsequent encounter (05/02/19) History of falling (05/02/19) Physical Therapy Treatment Note PT-OP-A Visit Information Start: 09/28/17 15:21 Freq: Status: Active Protocol: Document 05/02/19 09:45 DCW (Rec: 05/02/19 10:32 DCW [id number]) Out-Patient Physical Therapy Visit Information Visit Information Visit Type Progress Note Visit Start Time 09:45 Visit Stop Time 10:30 Total Visit Minutes 45 Visit Number 03/09 Number of INCUBATOR OPERATOR Visits 0 Evaluation Information Evaluation Date 07/27/17 PT-OP-B Current Condition Start: 09/28/17 15:21 Freq: Status: Active Protocol: Document 10/12/17 13:45 DCW (Rec: 10/12/17 18:33 DCW [id number]) Current Condition History of Current Condition Onset Date 02/05/17 History of Current Condition See Pt's initial evaluation in Therapy Source Current Functional Impairments (Reported) Functional Limitations- Mobility/Gait Transfers:W/C<->Mat Stand- pivot: Independent PT-OP-C Subjective Start: 09/28/17 15:21 Freq: Status: Active Protocol: Document 05/02/19 09:45 DCW (Rec: 05/02/19 10:32 DCW [id number]) OP-PT Subjective Patient Comments Patient Comments Pt doing better emotionally today, but it's feeling too hot. PT-OP-D Balance Start: 10/12/17 18:11 Freq: Status: Active Protocol: Document 03/21/19 10:30 DCW (Rec: 03/21/19 11:12 DCW [id number]) OP-PT Balance Assessment Standing Balance Standing Balance Comments Double leg, Eyes open: Donis Balance Assessment Evaluation Sitting to Standing Ability Independent w/Hands Unsupported Stance Supervision- 2 minutes Sitting Unsupported, Feet on Floor Safely- 2 minutes Standing to Sitting Ability Assist, Control w/Hands Transfer Ability Safely, Hand Use Unsupported Stance- Eyes Closed 3 seconds Unsupported Stance- Eyes Open Supervision to maintain Reaching Forward Standing Safely, 5 inches Pick- Up Object From Floor Within 2 inches, Unable Look Behind Shoulder - Standing Turns Sideways Only Turning 360 Degrees Requires Assistance Unsupported Stance, Alternating Feet on 2 Steps w/Minimum Assist Stair Unsupported Tandem Stance Small Step- 30 seconds Unilateral Leg Stance Lifts Leg/Unable to Hold Total Score Donis Total Score (out of 56 points) 32 Donis Impairment Rating 40 to 59% Impaired (Score 23- 33) Mejia Fall Scale Copyright Permission PT-OP-E Functional Tests Start: 10/12/17 18:11 Freq: Status: Active Protocol: Document 03/21/19 10:30 DCW (Rec: 03/21/19 11:12 DCW [id number]) Functional Tests 6 Minute Walk Test Distance 957' Device Used 4WW PT-OP-G Mobility & Gait Start: 12/23/18 10:02 Freq: Status: Active Protocol: Document 03/21/19 10:30 DCW (Rec: 03/21/19 11:12 DCW [id number]) OP Gait Assessment Gait Gait Assistance Required: Contact Guard Assist Distance (Feet) 325 Assistive Devices Assistive Device None,Gait Belt Gait Deviations General Gait Pattern Antalgic,Ataxic,Decreased Stride Length,Decreased Feet Clearance,Flexed Trunk,Lateral Trunk Lean PT-OP-M Strength Start: 10/12/17 18:11 Freq: Status: Active Protocol: Document 03/21/19 10:30 DCW (Rec: 03/21/19 11:12 DCW [id number]) Hip Strength Hip Manual Muscle Testing Right Flexion (L2) 5 Normal Abduction 5 Normal Adduction 5 Normal Left Flexion (L2) 4+ Good+ Abduction 5 Normal Adduction 5 Normal Knee Strength Knee Manual Muscle Testing Right Flexion (S2) 5 Normal Extension (L3) 5 Normal Left Flexion (S2) 4+ Good+ Extension (L3) 5 Normal Ankle/Foot Strength Ankle and Foot Manual Muscle Testing Right Dorsiflexion (L4) 2 Poor Plantarflexion (S1) 3+ Fair+ Left Dorsiflexion (L4) 4+ Good+ Plantarflexion (S1) 5 Normal PT-OP-Q Treatments Start: 09/28/17 15:21 Freq: Status: Active Protocol: Document 05/02/19 09:45 DCW (Rec: 05/02/19 10:32 DCW [id number]) Gym Equipment Shuttle Balance 1 Details Blue Comments Wide WILIAN, ball toss Therapeutic Exercises Other Exercises 1 Other Exercise Name Resisted Side-stepping Side bilateral Resistance Blue Equipment Used T-band Gait Training Gait Activity 2 Description Ambulation /s AD Device Used none Level of Assistance CGA Distance/Duration 360' x1 Treatment Focus Focus on increased step length , continous movement, arm swing Comments Pt ambulated around gym and avoided obstacles. 1 Device Used None Distance/Duration 20' x3 Comments Short distance to focus entirely on arm swing Neuro Re-Education Treatment Balance Activities 2 Details Cone/Ball transfers Comments Static stance 1 Details Balloon Volley Surface Firm PT-OP-T Assessment and Plan Start: 09/28/17 15:21 Freq: Status: Active Protocol: Document 05/02/19 09:45 DCW (Rec: 05/02/19 10:32 DCW [id number]) Physical Therapy Assessment Impairments Impairments Activity Tolerance,Balance, Functional Activities, Functional Mobility,Gait,ROM, Strength Goals Eight Impairment Unassisted Gait Short Term Goal (STG) Pt to ambulate 300' SBA /s AD STG Duration Met Correction Goal (LTG) Pt to ambulate 400' SBA /s AD LTG Duration 05/21/19 Seven Impairment Donis Short Term Goal (STG) Pt to score 22/56 on Donis Balance scale STG Duration Met Batch Attendant Goal (LTG) Pt to score 35/56 on Donis Balance scale LTG Duration 05/21/19 Six Impairment Static Standing Balance Short Term Goal (STG) Pt to stand independently for 2 minutes STG Duration Met Correction Goal (LTG) Pt to stand independently for 3 minutes LTG Duration 05/21/19 - Improving Five Impairment 6 MWT Batch Attendant Goal (LTG) Pt to ambulate 1000' without rest using 4WW during 6 MWT (03/21/19: 957') LTG Duration 05/21/19 - Improving Four Impairment Foot slap Short Term Goal (STG) Pt to regularly wear R AFO to limit foot drop and help normalize gait pattern STG Duration Met Three Impairment Transfers Short Term Goal (STG) Pt to transfer independently from mat<->w/c with no assistive devices STG Duration Met Two Impairment Ankle weakness Correction Goal (LTG) Pt to display 2/5 MMT in R DF, 4/5 MMT in R PF, and 4+/5 MMT in all other bilateral ankle movements LTG Duration 05/21/19 - Improving One Impairment Activity tolerance Correction Goal (LTG) Pt to tolerate activity up to 15 minutes without a break LTG Duration 05/21/19 - Improving Assessment Summary Assessment Pt showing overall improvement toward his goals, improved arm swing today during short, 20' laps. Pt also doing well improving his posture, able to maintain his balance while standing more upright. Physical Therapy Plan Frequency and Duration Frequency of Treatment 2x/Week Duration of Treatment 3 months Plan of Care Start Date 03/21/19 Plan of Care End Date 06/19/19 Therapeutic Interventions Therapeutic Interventions Aquatic Therapy,Balance Training,Gait Training,Home Exercise Program,Manual Therapy,Neuromuscular Re- education,Soft Tissue Mobilization,Therapeutic Activities,Therapeutic Exercises Next Visit Focus/Plan Next Note Type Treatment Note Next Visit Plan Continue focus on opposing arm swing during gait, increasing activity tolerance, increasing gait /s an AD, and improving balance
--- NOTE | 2019-05-05 10:27 | PT.OTN ---
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 with return to pre-existing conscious level, subsequent encounter (05/05/19) History of falling (05/05/19) Physical Therapy Treatment Note PT-OP-A Visit Information Start: 09/28/17 15:21 Freq: Status: Active Protocol: Document 05/05/19 09:45 DCW (Rec: 05/05/19 10:27 DCW [id number]) Out-Patient Physical Therapy Visit Information Visit Information Visit Type Treatment Note Visit Start Time 09:45 Visit Stop Time 10:30 Total Visit Minutes 45 Visit Number 06/09 Number of HOT METAL CHARGER Visits 0 Evaluation Information Evaluation Date 07/27/17 PT-OP-B Current Condition Start: 09/28/17 15:21 Freq: Status: Active Protocol: Document 10/12/17 13:45 DCW (Rec: 10/12/17 18:33 DCW [id number]) Current Condition History of Current Condition Onset Date 02/05/17 History of Current Condition See Pt's initial evaluation in Therapy Source Current Functional Impairments (Reported) Functional Limitations- Mobility/Gait Transfers:W/C<->Mat Stand- pivot: Independent PT-OP-C Subjective Start: 09/28/17 15:21 Freq: Status: Active Protocol: Document 05/05/19 09:45 DCW (Rec: 05/05/19 10:27 DCW [id number]) OP-PT Subjective Patient Comments Patient Comments Pt notes that he has been trying to walk more with his walker more at home, trying to completely wean myself off the wheelchair. PT-OP-D Balance Start: 10/12/17 18:11 Freq: Status: Active Protocol: Document 03/21/19 10:30 DCW (Rec: 03/21/19 11:12 DCW [id number]) OP-PT Balance Assessment Standing Balance Standing Balance Comments Double leg, Eyes open: 1'36 Donis Balance Assessment Evaluation Sitting to Standing Ability Independent w/Hands Unsupported Stance Supervision- 2 minutes Sitting Unsupported, Feet on Floor Safely- 2 minutes Standing to Sitting Ability Assist, Control w/Hands Transfer Ability Safely, Hand Use Unsupported Stance- Eyes Closed 3 seconds Unsupported Stance- Eyes Open Supervision to maintain Reaching Forward Standing Safely, 5 inches Pick- Up Object From Floor Within 2 inches, Unable Look Behind Shoulder - Standing Turns Sideways Only Turning 360 Degrees Requires Assistance Unsupported Stance, Alternating Feet on 2 Steps w/Minimum Assist Stair Unsupported Tandem Stance Small Step- 30 seconds Unilateral Leg Stance Lifts Leg/Unable to Hold Total Score Donis Total Score (out of 56 points) 32 Donis Impairment Rating 40 to 59% Impaired (Score 23- 33) Mejia Fall Scale Copyright Permission PT-OP-E Functional Tests Start: 10/12/17 18:11 Freq: Status: Active Protocol: Document 03/21/19 10:30 DCW (Rec: 03/21/19 11:12 DCW [id number]) Functional Tests 6 Minute Walk Test Distance 957' Device Used 4WW PT-OP-G Mobility & Gait Start: 12/23/18 10:02 Freq: Status: Active Protocol: Document 03/21/19 10:30 DCW (Rec: 03/21/19 11:12 DCW [id number]) OP Gait Assessment Gait Gait Assistance Required: Contact Guard Assist Distance (Feet) 325 Assistive Devices Assistive Device None,Gait Belt Gait Deviations General Gait Pattern Antalgic,Ataxic,Decreased Stride Length,Decreased Feet Clearance,Flexed Trunk,Lateral Trunk Lean PT-OP-M Strength Start: 10/12/17 18:11 Freq: Status: Active Protocol: Document 03/21/19 10:30 DCW (Rec: 03/21/19 11:12 DCW [id number]) Hip Strength Hip Manual Muscle Testing Right Flexion (L2) 5 Normal Abduction 5 Normal Adduction 5 Normal Left Flexion (L2) 4+ Good+ Abduction 5 Normal Adduction 5 Normal Knee Strength Knee Manual Muscle Testing Right Flexion (S2) 5 Normal Extension (L3) 5 Normal Left Flexion (S2) 4+ Good+ Extension (L3) 5 Normal Ankle/Foot Strength Ankle and Foot Manual Muscle Testing Right Dorsiflexion (L4) 2 Poor Plantarflexion (S1) 3+ Fair+ Left Dorsiflexion (L4) 4+ Good+ Plantarflexion (S1) 5 Normal PT-OP-Q Treatments Start: 09/28/17 15:21 Freq: Status: Active Protocol: Document 05/05/19 09:45 DCW (Rec: 05/05/19 10:27 DCW [id number]) Gym Equipment Shuttle Recovery Bilateral Heel Raises Resistance 137# Reps/Time x60 Unilateral Squats Resistance 100# Shuttle Recovery Platform Stable Reps/Time x20 each Bilateral Squats Resistance 162# Shuttle Recovery Platform Stable Reps/Time x30 Therapeutic Exercises Standing Exercises Standing Marching Standing Exercise Name Marching /c T-band around feet Resistance Blue Equipment Used T-band Other Exercises 1 Other Exercise Name Resisted Side-stepping Side bilateral Resistance Blue Equipment Used T-band Gait Training Gait Activity 2 Description Ambulation /s AD Device Used none Level of Assistance CGA Distance/Duration 360' x1 Treatment Focus Focus on increased step length , continous movement, arm swing Comments Pt ambulated around gym and avoided obstacles. PT-OP-T Assessment and Plan Start: 09/28/17 15:21 Freq: Status: Active Protocol: Document 05/05/19 09:45 DCW (Rec: 05/05/19 10:27 DCW [id number]) Physical Therapy Assessment Impairments Impairments Activity Tolerance,Balance, Functional Activities, Functional Mobility,Gait,ROM, Strength Goals Eight Impairment Unassisted Gait Short Term Goal (STG) Pt to ambulate 300' SBA /s AD STG Duration Met Bath Solution Maker Goal (LTG) Pt to ambulate 400' SBA /s AD LTG Duration 05/21/19 Seven Impairment Donis Short Term Goal (STG) Pt to score 22/56 on Donis Balance scale STG Duration Met Intermediate Goal (LTG) Pt to score 35/56 on Donis Balance scale LTG Duration 05/21/19 Six Impairment Static Standing Balance Short Term Goal (STG) Pt to stand independently for 2 minutes STG Duration Met Bath Solution Maker Goal (LTG) Pt to stand independently for 3 minutes LTG Duration 05/21/19 - Improving Five Impairment 6 MWT Intermediate Goal (LTG) Pt to ambulate 1000' without rest using 4WW during 6 MWT (03/21/19: 957') LTG Duration 05/21/19 - Improving Four Impairment Foot slap Short Term Goal (STG) Pt to regularly wear R AFO to limit foot drop and help normalize gait pattern STG Duration Met Three Impairment Transfers Short Term Goal (STG) Pt to transfer independently from mat<->w/c with no assistive devices STG Duration Met Two Impairment Ankle weakness Intermediate Goal (LTG) Pt to display 2/5 MMT in R DF, 4/5 MMT in R PF, and 4+/5 MMT in all other bilateral ankle movements LTG Duration 05/21/19 - Improving One Impairment Activity tolerance Bath Solution Maker Goal (LTG) Pt to tolerate activity up to 15 minutes without a break LTG Duration 05/21/19 - Improving Assessment Summary Assessment Pt was breathing much more heavily than usual today during his exercise, although measured his O2 sat multiple times, and it remained 98% throughout the entire session. Physical Therapy Plan Frequency and Duration Frequency of Treatment 2x/Week Duration of Treatment 3 months Plan of Care Start Date 03/21/19 Plan of Care End Date 06/19/19 Therapeutic Interventions Therapeutic Interventions Aquatic Therapy,Balance Training,Gait Training,Home Exercise Program,Manual Therapy,Neuromuscular Re- education,Soft Tissue Mobilization,Therapeutic Activities,Therapeutic Exercises Next Visit Focus/Plan Next Note Type Treatment Note Next Visit Plan Continue focus on opposing arm swing during gait, increasing activity tolerance, increasing gait /s an AD, and improving balance
--- NOTE | 2019-05-12 10:32 | PT.OTN ---
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 with return to pre-existing conscious level, subsequent encounter (05/12/19) History of falling (05/12/19) Physical Therapy Treatment Note PT-OP-A Visit Information Start: 09/28/17 15:21 Freq: Status: Active Protocol: Document 05/12/19 09:45 DCW (Rec: 05/12/19 10:32 DCW [id number]) Out-Patient Physical Therapy Visit Information Visit Information Visit Type Treatment Note Visit Start Time 09:45 Visit Stop Time 10:30 Total Visit Minutes 45 Visit Number 07/10 Number of CAN SLIDER Visits 0 Evaluation Information Evaluation Date 07/27/17 PT-OP-B Current Condition Start: 09/28/17 15:21 Freq: Status: Active Protocol: Document 10/12/17 13:45 DCW (Rec: 10/12/17 18:33 DCW [id number]) Current Condition History of Current Condition Onset Date 02/05/17 History of Current Condition See Pt's initial evaluation in Therapy Source Current Functional Impairments (Reported) Functional Limitations- Mobility/Gait Transfers:W/C<->Mat Stand- pivot: Independent PT-OP-C Subjective Start: 09/28/17 15:21 Freq: Status: Active Protocol: Document 05/12/19 09:45 DCW (Rec: 05/12/19 10:32 DCW [id number]) OP-PT Subjective Patient Comments Patient Comments I don't know how I'm feeling. I think pretty good, but I hate to say it. PT-OP-D Balance Start: 10/12/17 18:11 Freq: Status: Active Protocol: Document 03/21/19 10:30 DCW (Rec: 03/21/19 11:12 DCW [id number]) OP-PT Balance Assessment Standing Balance Standing Balance Comments Double leg, Eyes open: 1'36 Donis Balance Assessment Evaluation Sitting to Standing Ability Independent w/Hands Unsupported Stance Supervision- 2 minutes Sitting Unsupported, Feet on Floor Safely- 2 minutes Standing to Sitting Ability Assist, Control w/Hands Transfer Ability Safely, Hand Use Unsupported Stance- Eyes Closed 3 seconds Unsupported Stance- Eyes Open Supervision to maintain Reaching Forward Standing Safely, 5 inches Pick- Up Object From Floor Within 2 inches, Unable Look Behind Shoulder - Standing Turns Sideways Only Turning 360 Degrees Requires Assistance Unsupported Stance, Alternating Feet on 2 Steps w/Minimum Assist Stair Unsupported Tandem Stance Small Step- 30 seconds Unilateral Leg Stance Lifts Leg/Unable to Hold Total Score Donis Total Score (out of 56 points) 32 Donis Impairment Rating 40 to 59% Impaired (Score 23- 33) Mejia Fall Scale Copyright Permission PT-OP-E Functional Tests Start: 10/12/17 18:11 Freq: Status: Active Protocol: Document 03/21/19 10:30 DCW (Rec: 03/21/19 11:12 DCW [id number]) Functional Tests 6 Minute Walk Test Distance 957' Device Used 4WW PT-OP-G Mobility & Gait Start: 12/23/18 10:02 Freq: Status: Active Protocol: Document 03/21/19 10:30 DCW (Rec: 03/21/19 11:12 DCW [id number]) OP Gait Assessment Gait Gait Assistance Required: Contact Guard Assist Distance (Feet) 325 Assistive Devices Assistive Device None,Gait Belt Gait Deviations General Gait Pattern Antalgic,Ataxic,Decreased Stride Length,Decreased Feet Clearance,Flexed Trunk,Lateral Trunk Lean PT-OP-M Strength Start: 10/12/17 18:11 Freq: Status: Active Protocol: Document 03/21/19 10:30 DCW (Rec: 03/21/19 11:12 DCW [id number]) Hip Strength Hip Manual Muscle Testing Right Flexion (L2) 5 Normal Abduction 5 Normal Adduction 5 Normal Left Flexion (L2) 4+ Good+ Abduction 5 Normal Adduction 5 Normal Knee Strength Knee Manual Muscle Testing Right Flexion (S2) 5 Normal Extension (L3) 5 Normal Left Flexion (S2) 4+ Good+ Extension (L3) 5 Normal Ankle/Foot Strength Ankle and Foot Manual Muscle Testing Right Dorsiflexion (L4) 2 Poor Plantarflexion (S1) 3+ Fair+ Left Dorsiflexion (L4) 4+ Good+ Plantarflexion (S1) 5 Normal PT-OP-Q Treatments Start: 09/28/17 15:21 Freq: Status: Active Protocol: Document 05/12/19 09:45 DCW (Rec: 05/12/19 10:32 DCW [id number]) Gym Equipment Shuttle Balance 1 Details Blue Comments Wide WILIAN, ball toss Gait Training Gait Activity 2 Description Ambulation /s AD Device Used none Level of Assistance CGA Distance/Duration 360' x1 Treatment Focus Focus on increased step length , continous movement, arm swing Comments Pt ambulated around gym and avoided obstacles. Neuro Re-Education Treatment Balance Activities 3 Details Kicking over cones Comments Knocking over cones with specific foot while standing/ walking /s AD, Mod A x1 2 Details Cone/Ball transfers Comments Static stance 1 Details Balloon Volley Surface Firm PT-OP-T Assessment and Plan Start: 09/28/17 15:21 Freq: Status: Active Protocol: Document 05/12/19 09:45 DCW (Rec: 05/12/19 10:32 DCW [id number]) Physical Therapy Assessment Impairments Impairments Activity Tolerance,Balance, Functional Activities, Functional Mobility,Gait,ROM, Strength Goals Eight Impairment Unassisted Gait Short Term Goal (STG) Pt to ambulate 300' SBA /s AD STG Duration Met Farm Or Ranch Animal Caretaker Goal (LTG) Pt to ambulate 400' SBA /s AD LTG Duration 05/21/19 Seven Impairment Donis Short Term Goal (STG) Pt to score 22/56 on Donis Balance scale STG Duration Met Farm Or Ranch Animal Caretaker Goal (LTG) Pt to score 35/56 on Donis Balance scale LTG Duration 05/21/19 Six Impairment Static Standing Balance Short Term Goal (STG) Pt to stand independently for 2 minutes STG Duration Met Prison Goal (LTG) Pt to stand independently for 3 minutes LTG Duration 05/21/19 - Improving Five Impairment 6 MWT Farm Or Ranch Animal Caretaker Goal (LTG) Pt to ambulate 1000' without rest using 4WW during 6 MWT (03/21/19: 957') LTG Duration 05/21/19 - Improving Four Impairment Foot slap Short Term Goal (STG) Pt to regularly wear R AFO to limit foot drop and help normalize gait pattern STG Duration Met Three Impairment Transfers Short Term Goal (STG) Pt to transfer independently from mat<->w/c with no assistive devices STG Duration Met Two Impairment Ankle weakness Prison Goal (LTG) Pt to display 2/5 MMT in R DF, 4/5 MMT in R PF, and 4+/5 MMT in all other bilateral ankle movements LTG Duration 05/21/19 - Improving One Impairment Activity tolerance Prison Goal (LTG) Pt to tolerate activity up to 15 minutes without a break LTG Duration 05/21/19 - Improving Assessment Summary Assessment Pt able to correct posture on the Shuttle Balance well this morning, fairly upright posture and using his anterior leg musculature to pull his COG forward more than usual. Physical Therapy Plan Frequency and Duration Frequency of Treatment 2x/Week Duration of Treatment 3 months Plan of Care Start Date 03/21/19 Plan of Care End Date 06/19/19 Therapeutic Interventions Therapeutic Interventions Aquatic Therapy,Balance Training,Gait Training,Home Exercise Program,Manual Therapy,Neuromuscular Re- education,Soft Tissue Mobilization,Therapeutic Activities,Therapeutic Exercises Next Visit Focus/Plan Next Note Type Treatment Note Next Visit Plan Continue focus on opposing arm swing during gait, increasing activity tolerance, increasing gait /s an AD, and improving balance
--- NOTE | 2019-05-16 10:28 | PT.OTN ---
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 with return to pre-existing conscious level, subsequent encounter (05/16/19) History of falling (05/16/19) Physical Therapy Treatment Note PT-OP-A Visit Information Start: 09/28/17 15:21 Freq: Status: Active Protocol: Document 05/16/19 09:45 DCW (Rec: 05/16/19 10:28 DCW [id number]) Out-Patient Physical Therapy Visit Information Visit Information Visit Type Treatment Note Visit Start Time 09:45 Visit Stop Time 10:30 Total Visit Minutes 45 Visit Number 3/ Number of VOLCANOLOGIST Visits 0 Evaluation Information Evaluation Date 07/27/17 PT-OP-B Current Condition Start: 09/28/17 15:21 Freq: Status: Active Protocol: Document 10/12/17 13:45 DCW (Rec: 10/12/17 18:33 DCW [id number]) Current Condition History of Current Condition Onset Date 02/05/17 History of Current Condition See Pt's initial evaluation in Therapy Source Current Functional Impairments (Reported) Functional Limitations- Mobility/Gait Transfers:W/C<->Mat Stand- pivot: Independent PT-OP-C Subjective Start: 09/28/17 15:21 Freq: Status: Active Protocol: Document 05/16/19 09:45 DCW (Rec: 05/16/19 10:28 DCW [id number]) OP-PT Subjective Patient Comments Patient Comments Pt reports he is not too bad today. PT-OP-D Balance Start: 10/12/17 18:11 Freq: Status: Active Protocol: Document 03/21/19 10:30 DCW (Rec: 03/21/19 11:12 DCW [id number]) OP-PT Balance Assessment Standing Balance Standing Balance Comments Double leg, Eyes open: 1 Donis Balance Assessment Evaluation Sitting to Standing Ability Independent w/Hands Unsupported Stance Supervision- 2 minutes Sitting Unsupported, Feet on Floor Safely- 2 minutes Standing to Sitting Ability Assist, Control w/Hands Transfer Ability Safely, Hand Use Unsupported Stance- Eyes Closed 3 seconds Unsupported Stance- Eyes Open Supervision to maintain Reaching Forward Standing Safely, 5 inches Pick- Up Object From Floor Within 2 inches, Unable Look Behind Shoulder - Standing Turns Sideways Only Turning 360 Degrees Requires Assistance Unsupported Stance, Alternating Feet on 2 Steps w/Minimum Assist Stair Unsupported Tandem Stance Small Step- 30 seconds Unilateral Leg Stance Lifts Leg/Unable to Hold Total Score Donis Total Score (out of 56 points) 32 Donis Impairment Rating 40 to 59% Impaired (Score 23- 33) Mejia Fall Scale Copyright Permission PT-OP-E Functional Tests Start: 10/12/17 18:11 Freq: Status: Active Protocol: Document 03/21/19 10:30 DCW (Rec: 03/21/19 11:12 DCW [id number]) Functional Tests 6 Minute Walk Test Distance 957' Device Used 4WW PT-OP-G Mobility & Gait Start: 12/23/18 10:02 Freq: Status: Active Protocol: Document 03/21/19 10:30 DCW (Rec: 03/21/19 11:12 DCW [id number]) OP Gait Assessment Gait Gait Assistance Required: Contact Guard Assist Distance (Feet) 325 Assistive Devices Assistive Device None,Gait Belt Gait Deviations General Gait Pattern Antalgic,Ataxic,Decreased Stride Length,Decreased Feet Clearance,Flexed Trunk,Lateral Trunk Lean PT-OP-M Strength Start: 10/12/17 18:11 Freq: Status: Active Protocol: Document 03/21/19 10:30 DCW (Rec: 03/21/19 11:12 DCW [id number]) Hip Strength Hip Manual Muscle Testing Right Flexion (L2) 5 Normal Abduction 5 Normal Adduction 5 Normal Left Flexion (L2) 4+ Good+ Abduction 5 Normal Adduction 5 Normal Knee Strength Knee Manual Muscle Testing Right Flexion (S2) 5 Normal Extension (L3) 5 Normal Left Flexion (S2) 4+ Good+ Extension (L3) 5 Normal Ankle/Foot Strength Ankle and Foot Manual Muscle Testing Right Dorsiflexion (L4) 2 Poor Plantarflexion (S1) 3+ Fair+ Left Dorsiflexion (L4) 4+ Good+ Plantarflexion (S1) 5 Normal PT-OP-Q Treatments Start: 09/28/17 15:21 Freq: Status: Active Protocol: Document 05/16/19 09:45 DCW (Rec: 05/16/19 10:28 DCW [id number]) Gym Equipment Shuttle Balance 1 Details Blue Comments Wide WILIAN, ball toss Gait Training Gait Activity 2 Description Ambulation /s AD Device Used none Level of Assistance CGA Distance/Duration 360' x1 Treatment Focus Focus on increased step length , continous movement, arm swing Comments Pt ambulated around gym and avoided obstacles. Neuro Re-Education Treatment Balance Activities 3 Details Kicking over cones Comments Knocking over cones with specific foot while standing/ walking /s AD, Mod A x1 2 Details Cone/Ball transfers Comments Static stance PT-OP-T Assessment and Plan Start: 09/28/17 15:21 Freq: Status: Active Protocol: Document 05/16/19 09:45 DCW (Rec: 05/16/19 10:28 DCW [id number]) Physical Therapy Assessment Impairments Impairments Activity Tolerance,Balance, Functional Activities, Functional Mobility,Gait,ROM, Strength Goals Eight Impairment Unassisted Gait Short Term Goal (STG) Pt to ambulate 300' SBA /s AD STG Duration Met Usp Goal (LTG) Pt to ambulate 400' SBA /s AD LTG Duration 05/21/19 Seven Impairment Donis Short Term Goal (STG) Pt to score 22/56 on Donis Balance scale STG Duration Met Usp Goal (LTG) Pt to score 35/56 on Donis Balance scale LTG Duration 05/21/19 Six Impairment Static Standing Balance Short Term Goal (STG) Pt to stand independently for 2 minutes STG Duration Met Usp Goal (LTG) Pt to stand independently for 3 minutes LTG Duration 05/21/19 - Improving Five Impairment 6 MWT Usp Goal (LTG) Pt to ambulate 1000' without rest using 4WW during 6 MWT (03/21/19: 957') LTG Duration 05/21/19 - Improving Four Impairment Foot slap Short Term Goal (STG) Pt to regularly wear R AFO to limit foot drop and help normalize gait pattern STG Duration Met Three Impairment Transfers Short Term Goal (STG) Pt to transfer independently from mat<->w/c with no assistive devices STG Duration Met Two Impairment Ankle weakness Usp Goal (LTG) Pt to display 2/5 MMT in R DF, 4/5 MMT in R PF, and 4+/5 MMT in all other bilateral ankle movements LTG Duration 05/21/19 - Improving One Impairment Activity tolerance Usp Goal (LTG) Pt to tolerate activity up to 15 minutes without a break LTG Duration 05/21/19 - Improving Assessment Summary Assessment Pt improving with arm swing during gait, although he still has to consciously think about it, resulting in decreased sequencing occasionally Physical Therapy Plan Frequency and Duration Frequency of Treatment 2x/Week Duration of Treatment 3 months Plan of Care Start Date 03/21/19 Plan of Care End Date 06/19/19 Therapeutic Interventions Therapeutic Interventions Aquatic Therapy,Balance Training,Gait Training,Home Exercise Program,Manual Therapy,Neuromuscular Re- education,Soft Tissue Mobilization,Therapeutic Activities,Therapeutic Exercises Next Visit Focus/Plan Next Note Type Treatment Note Next Visit Plan Continue focus on opposing arm swing during gait, increasing activity tolerance, increasing gait /s an AD, and improving balance
--- NOTE | 2019-05-19 10:22 | PT.OTN ---
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 with return to pre-existing conscious level, subsequent encounter (05/19/19) History of falling (05/19/19) Physical Therapy Treatment Note PT-OP-A Visit Information Start: 09/28/17 15:21 Freq: Status: Active Protocol: Document 05/19/19 09:45 DCW (Rec: 05/19/19 10:22 DCW [id number]) Out-Patient Physical Therapy Visit Information Visit Information Visit Type Treatment Note Visit Note Pt needed to leave 15 min early due to conflicting doctor appointments Visit Start Time 09:45 Visit Stop Time 10:15 Total Visit Minutes 30 Visit Number 4/10 Number of LABORER CONSTRUCTION OR LEAK GANG Visits 0 Evaluation Information Evaluation Date 07/27/17 PT-OP-B Current Condition Start: 09/28/17 15:21 Freq: Status: Active Protocol: Document 10/12/17 13:45 DCW (Rec: 10/12/17 18:33 DCW [id number]) Current Condition History of Current Condition Onset Date 02/05/17 History of Current Condition See Pt's initial evaluation in Therapy Source Current Functional Impairments (Reported) Functional Limitations- Mobility/Gait Transfers:W/C<->Mat Stand- pivot: Independent PT-OP-C Subjective Start: 09/28/17 15:21 Freq: Status: Active Protocol: Document 05/19/19 09:45 DCW (Rec: 05/19/19 10:22 DCW [id number]) OP-PT Subjective Patient Comments Patient Comments Dr Delgado (neurologist) felt I was doing well enough that he released me one year early, they had no idea that I would be doing this well ever, and he was very impressed that I'm even walking. He thinks my PT must be a miracle worker. PT-OP-D Balance Start: 10/12/17 18:11 Freq: Status: Active Protocol: Document 03/21/19 10:30 DCW (Rec: 03/21/19 11:12 DCW [id number]) OP-PT Balance Assessment Standing Balance Standing Balance Comments Double leg, Eyes open: 1'36 Donis Balance Assessment Evaluation Sitting to Standing Ability Independent w/Hands Unsupported Stance Supervision- 2 minutes Sitting Unsupported, Feet on Floor Safely- 2 minutes Standing to Sitting Ability Assist, Control w/Hands Transfer Ability Safely, Hand Use Unsupported Stance- Eyes Closed 3 seconds Unsupported Stance- Eyes Open Supervision to maintain Reaching Forward Standing Safely, 5 inches Pick- Up Object From Floor Within 2 inches, Unable Look Behind Shoulder - Standing Turns Sideways Only Turning 360 Degrees Requires Assistance Unsupported Stance, Alternating Feet on 2 Steps w/Minimum Assist Stair Unsupported Tandem Stance Small Step- 30 seconds Unilateral Leg Stance Lifts Leg/Unable to Hold Total Score Donis Total Score (out of 56 points) 32 Donis Impairment Rating 40 to 59% Impaired (Score 23- 33) Mejia Fall Scale Copyright Permission PT-OP-E Functional Tests Start: 10/12/17 18:11 Freq: Status: Active Protocol: Document 03/21/19 10:30 DCW (Rec: 03/21/19 11:12 DCW [id number]) Functional Tests 6 Minute Walk Test Distance 957' Device Used 4WW PT-OP-G Mobility & Gait Start: 12/23/18 10:02 Freq: Status: Active Protocol: Document 03/21/19 10:30 DCW (Rec: 03/21/19 11:12 DCW [id number]) OP Gait Assessment Gait Gait Assistance Required: Contact Guard Assist Distance (Feet) 325 Assistive Devices Assistive Device None,Gait Belt Gait Deviations General Gait Pattern Antalgic,Ataxic,Decreased Stride Length,Decreased Feet Clearance,Flexed Trunk,Lateral Trunk Lean PT-OP-M Strength Start: 10/12/17 18:11 Freq: Status: Active Protocol: Document 03/21/19 10:30 DCW (Rec: 03/21/19 11:12 DCW [id number]) Hip Strength Hip Manual Muscle Testing Right Flexion (L2) 5 Normal Abduction 5 Normal Adduction 5 Normal Left Flexion (L2) 4+ Good+ Abduction 5 Normal Adduction 5 Normal Knee Strength Knee Manual Muscle Testing Right Flexion (S2) 5 Normal Extension (L3) 5 Normal Left Flexion (S2) 4+ Good+ Extension (L3) 5 Normal Ankle/Foot Strength Ankle and Foot Manual Muscle Testing Right Dorsiflexion (L4) 2 Poor Plantarflexion (S1) 3+ Fair+ Left Dorsiflexion (L4) 4+ Good+ Plantarflexion (S1) 5 Normal PT-OP-Q Treatments Start: 09/28/17 15:21 Freq: Status: Active Protocol: Document 05/19/19 09:45 DCW (Rec: 05/19/19 10:22 DCW [id number]) Gait Training Gait Activity 2 Description Ambulation /s AD Device Used none Level of Assistance CGA Distance/Duration 360' x1 Treatment Focus Focus on increased step length , continous movement, arm swing Comments Pt ambulated around gym and avoided obstacles. Neuro Re-Education Treatment Balance Activities 3 Details Kicking over cones Comments Knocking over cones with specific foot while standing/ walking /s AD, Mod A x1 2 Details Cone/Ball transfers Comments Static stance PT-OP-T Assessment and Plan Start: 09/28/17 15:21 Freq: Status: Active Protocol: Document 05/19/19 09:45 DCW (Rec: 05/19/19 10:22 DCW [id number]) Physical Therapy Assessment Impairments Impairments Activity Tolerance,Balance, Functional Activities, Functional Mobility,Gait,ROM, Strength Goals Eight Impairment Unassisted Gait Short Term Goal (STG) Pt to ambulate 300' SBA /s AD STG Duration Met Long-Term Goal (LTG) Pt to ambulate 400' SBA /s AD LTG Duration 05/21/19 Seven Impairment Donis Short Term Goal (STG) Pt to score 22/56 on Donis Balance scale STG Duration Met Concrete Sculptor Goal (LTG) Pt to score 35/56 on Donis Balance scale LTG Duration 05/21/19 Six Impairment Static Standing Balance Short Term Goal (STG) Pt to stand independently for 2 minutes STG Duration Met Concrete Sculptor Goal (LTG) Pt to stand independently for 3 minutes LTG Duration 05/21/19 - Improving Five Impairment 6 MWT Concrete Sculptor Goal (LTG) Pt to ambulate 1000' without rest using 4WW during 6 MWT (03/21/19: 957') LTG Duration 05/21/19 - Improving Four Impairment Foot slap Short Term Goal (STG) Pt to regularly wear R AFO to limit foot drop and help normalize gait pattern STG Duration Met Three Impairment Transfers Short Term Goal (STG) Pt to transfer independently from mat<->w/c with no assistive devices STG Duration Met Two Impairment Ankle weakness Long-Term Goal (LTG) Pt to display 2/5 MMT in R DF, 4/5 MMT in R PF, and 4+/5 MMT in all other bilateral ankle movements LTG Duration 05/21/19 - Improving One Impairment Activity tolerance Concrete Sculptor Goal (LTG) Pt to tolerate activity up to 15 minutes without a break LTG Duration 05/21/19 - Improving Assessment Summary Assessment Pt did well today with his shortened visit, continuing to advance his arm swing and standing balance. Physical Therapy Plan Frequency and Duration Frequency of Treatment 2x/Week Duration of Treatment 3 months Plan of Care Start Date 03/21/19 Plan of Care End Date 06/19/19 Therapeutic Interventions Therapeutic Interventions Aquatic Therapy,Balance Training,Gait Training,Home Exercise Program,Manual Therapy,Neuromuscular Re- education,Soft Tissue Mobilization,Therapeutic Activities,Therapeutic Exercises Next Visit Focus/Plan Next Note Type Treatment Note Next Visit Plan Continue focus on opposing arm swing during gait, increasing activity tolerance, increasing gait /s an AD, and improving balance
--- NOTE | 2019-05-26 10:31 | PT.OTN ---
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 greater than 24 hours with return to pre-existing conscious level, subsequent encounter (05/26/19) History of falling (05/26/19) Physical Therapy Treatment Note PT-OP-A Visit Information Start: 09/28/17 15:21 Freq: Status: Active Protocol: Document 05/26/19 09:45 DCW (Rec: 05/26/19 10:31 DCW [id number]) Out-Patient Physical Therapy Visit Information Visit Information Visit Type Treatment Note Visit Start Time 09:45 Visit Stop Time 10:30 Total Visit Minutes 45 Visit Number 5/ Number of OBSTETRICS SPECIALIST Visits 0 Evaluation Information Evaluation Date 07/27/17 PT-OP-B Current Condition Start: 09/28/17 15:21 Freq: Status: Active Protocol: Document 10/12/17 13:45 DCW (Rec: 10/12/17 18:33 DCW [id number]) Current Condition History of Current Condition Onset Date 02/05/17 History of Current Condition See Pt's initial evaluation in Therapy Source Current Functional Impairments (Reported) Functional Limitations- Mobility/Gait Transfers:W/C<->Mat Stand- pivot: Independent PT-OP-C Subjective Start: 09/28/17 15:21 Freq: Status: Active Protocol: Document 05/26/19 09:45 DCW (Rec: 05/26/19 10:31 DCW [id number]) OP-PT Subjective Patient Comments Patient Comments Pt reports he was a little shakey today walking from his house to the car, and he even stumbled a little, which has not happened before, so I'm not sure if this is something I should be worried about or not. PT-OP-D Balance Start: 10/12/17 18:11 Freq: Status: Active Protocol: Document 03/21/19 10:30 DCW (Rec: 03/21/19 11:12 DCW [id number]) OP-PT Balance Assessment Standing Balance Standing Balance Comments Double leg, Eyes open: 1'36 Donis Balance Assessment Evaluation Sitting to Standing Ability Independent w/Hands Unsupported Stance Supervision- 2 minutes Sitting Unsupported, Feet on Floor Safely- 2 minutes Standing to Sitting Ability Assist, Control w/Hands Transfer Ability Safely, Hand Use Unsupported Stance- Eyes Closed 3 seconds Unsupported Stance- Eyes Open Supervision to maintain Reaching Forward Standing Safely, 5 inches Pick- Up Object From Floor Within 2 inches, Unable Look Behind Shoulder - Standing Turns Sideways Only Turning 360 Degrees Requires Assistance Unsupported Stance, Alternating Feet on 2 Steps w/Minimum Assist Stair Unsupported Tandem Stance Small Step- 30 seconds Unilateral Leg Stance Lifts Leg/Unable to Hold Total Score Donis Total Score (out of 56 points) 32 Donis Impairment Rating 40 to 59% Impaired (Score 23- 33) Mejia Fall Scale Copyright Permission PT-OP-E Functional Tests Start: 10/12/17 18:11 Freq: Status: Active Protocol: Document 03/21/19 10:30 DCW (Rec: 03/21/19 11:12 DCW [id number]) Functional Tests 6 Minute Walk Test Distance 957' Device Used 4WW PT-OP-G Mobility & Gait Start: 12/23/18 10:02 Freq: Status: Active Protocol: Document 03/21/19 10:30 DCW (Rec: 03/21/19 11:12 DCW [id number]) OP Gait Assessment Gait Gait Assistance Required: Contact Guard Assist Distance (Feet) 325 Assistive Devices Assistive Device None,Gait Belt Gait Deviations General Gait Pattern Antalgic,Ataxic,Decreased Stride Length,Decreased Feet Clearance,Flexed Trunk,Lateral Trunk Lean PT-OP-M Strength Start: 10/12/17 18:11 Freq: Status: Active Protocol: Document 03/21/19 10:30 DCW (Rec: 03/21/19 11:12 DCW [id number]) Hip Strength Hip Manual Muscle Testing Right Flexion (L2) 5 Normal Abduction 5 Normal Adduction 5 Normal Left Flexion (L2) 4+ Good+ Abduction 5 Normal Adduction 5 Normal Knee Strength Knee Manual Muscle Testing Right Flexion (S2) 5 Normal Extension (L3) 5 Normal Left Flexion (S2) 4+ Good+ Extension (L3) 5 Normal Ankle/Foot Strength Ankle and Foot Manual Muscle Testing Right Dorsiflexion (L4) 2 Poor Plantarflexion (S1) 3+ Fair+ Left Dorsiflexion (L4) 4+ Good+ Plantarflexion (S1) 5 Normal PT-OP-Q Treatments Start: 09/28/17 15:21 Freq: Status: Active Protocol: Document 05/26/19 09:45 DCW (Rec: 05/26/19 10:31 DCW [id number]) Gait Training Gait Activity 2 Description Ambulation /s AD Device Used none Level of Assistance CGA Distance/Duration 300' x1, 120' x1 Treatment Focus Focus on increased step length , continous movement, arm swing Comments Pt ambulated around gym and avoided obstacles. Neuro Re-Education Treatment Balance Activities 3 Details Kicking over cones Comments Knocking over cones with specific foot while standing/ walking /s AD, Mod A x1 2 Details Cone/Ball transfers Comments Static stance 1 Details Reach forward to touch targets Surface Firm and Blue Foam PT-OP-T Assessment and Plan Start: 09/28/17 15:21 Freq: Status: Active Protocol: Document 05/26/19 09:45 DCW (Rec: 05/26/19 10:31 DCW [id number]) Physical Therapy Assessment Impairments Impairments Activity Tolerance,Balance, Functional Activities, Functional Mobility,Gait,ROM, Strength Goals Eight Impairment Unassisted Gait Short Term Goal (STG) Pt to ambulate 300' SBA /s AD STG Duration Met Scuba Diving Teacher Goal (LTG) Pt to ambulate 400' SBA /s AD LTG Duration 05/21/19 Seven Impairment Donis Short Term Goal (STG) Pt to score 22/56 on Donis Balance scale STG Duration Met Alf Goal (LTG) Pt to score 35/56 on Donis Balance scale LTG Duration 05/21/19 Six Impairment Static Standing Balance Short Term Goal (STG) Pt to stand independently for 2 minutes STG Duration Met Alf Goal (LTG) Pt to stand independently for 3 minutes LTG Duration 05/21/19 - Improving Five Impairment 6 MWT Scuba Diving Teacher Goal (LTG) Pt to ambulate 1000' without rest using 4WW during 6 MWT (03/21/19: 957') LTG Duration 05/21/19 - Improving Four Impairment Foot slap Short Term Goal (STG) Pt to regularly wear R AFO to limit foot drop and help normalize gait pattern STG Duration Met Three Impairment Transfers Short Term Goal (STG) Pt to transfer independently from mat<->w/c with no assistive devices STG Duration Met Two Impairment Ankle weakness Alf Goal (LTG) Pt to display 2/5 MMT in R DF, 4/5 MMT in R PF, and 4+/5 MMT in all other bilateral ankle movements LTG Duration 05/21/19 - Improving One Impairment Activity tolerance Scuba Diving Teacher Goal (LTG) Pt to tolerate activity up to 15 minutes without a break LTG Duration 05/21/19 - Improving Assessment Summary Assessment Pt struggled with new balance exercise, and was unable to complete his usual 360' course . Pt was a little more off balance today, unclear if there were any underlying reasons. Physical Therapy Plan Frequency and Duration Frequency of Treatment 2x/Week Duration of Treatment 3 months Plan of Care Start Date 03/21/19 Plan of Care End Date 06/19/19 Therapeutic Interventions Therapeutic Interventions Aquatic Therapy,Balance Training,Gait Training,Home Exercise Program,Manual Therapy,Neuromuscular Re- education,Soft Tissue Mobilization,Therapeutic Activities,Therapeutic Exercises Next Visit Focus/Plan Next Note Type Treatment Note Next Visit Plan Continue focus on opposing arm swing during gait, increasing activity tolerance, increasing gait /s an AD, and improving balance
--- NOTE | 2019-06-06 10:32 | PT.OTN ---
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 with return to pre-existing conscious level, subsequent encounter (06/06/19) History of falling (06/06/19) Physical Therapy Treatment Note PT-OP-A Visit Information Start: 09/28/17 15:21 Freq: Status: Active Protocol: Document 06/06/19 09:45 DCW (Rec: 06/06/19 10:32 DCW [id number]) Out-Patient Physical Therapy Visit Information Visit Information Visit Type Treatment Note Visit Start Time 09:45 Visit Stop Time 10:30 Total Visit Minutes 45 Visit Number 11/07 Number of TRUCK SAFETY INSPECTOR Visits 0 Evaluation Information Evaluation Date 07/27/17 PT-OP-B Current Condition Start: 09/28/17 15:21 Freq: Status: Active Protocol: Document 10/12/17 13:45 DCW (Rec: 10/12/17 18:33 DCW [id number]) Current Condition History of Current Condition Onset Date 02/05/17 History of Current Condition See Pt's initial evaluation in Therapy Source Current Functional Impairments (Reported) Functional Limitations- Mobility/Gait Transfers:W/C<->Mat Stand- pivot: Independent PT-OP-C Subjective Start: 09/28/17 15:21 Freq: Status: Active Protocol: Document 06/06/19 09:45 DCW (Rec: 06/06/19 10:32 DCW [id number]) OP-PT Subjective Patient Comments Patient Comments Pt fears that his right leg is getting weaker. I might be imagining it, but it just feels like it wants to give out more frequently. PT-OP-D Balance Start: 10/12/17 18:11 Freq: Status: Active Protocol: Document 03/21/19 10:30 DCW (Rec: 03/21/19 11:12 DCW [id number]) OP-PT Balance Assessment Standing Balance Standing Balance Comments Double leg, Eyes open: 1'36 Donis Balance Assessment Evaluation Sitting to Standing Ability Independent w/Hands Unsupported Stance Supervision- 2 minutes Sitting Unsupported, Feet on Floor Safely- 2 minutes Standing to Sitting Ability Assist, Control w/Hands Transfer Ability Safely, Hand Use Unsupported Stance- Eyes Closed 3 seconds Unsupported Stance- Eyes Open Supervision to maintain Reaching Forward Standing Safely, 5 inches Pick- Up Object From Floor Within 2 inches, Unable Look Behind Shoulder - Standing Turns Sideways Only Turning 360 Degrees Requires Assistance Unsupported Stance, Alternating Feet on 2 Steps w/Minimum Assist Stair Unsupported Tandem Stance Small Step- 30 seconds Unilateral Leg Stance Lifts Leg/Unable to Hold Total Score Donis Total Score (out of 56 points) 32 Donis Impairment Rating 40 to 59% Impaired (Score 23- 33) Mejia Fall Scale Copyright Permission PT-OP-E Functional Tests Start: 10/12/17 18:11 Freq: Status: Active Protocol: Document 03/21/19 10:30 DCW (Rec: 03/21/19 11:12 DCW [id number]) Functional Tests 6 Minute Walk Test Distance 957' Device Used 4WW PT-OP-G Mobility & Gait Start: 12/23/18 10:02 Freq: Status: Active Protocol: Document 03/21/19 10:30 DCW (Rec: 03/21/19 11:12 DCW [id number]) OP Gait Assessment Gait Gait Assistance Required: Contact Guard Assist Distance (Feet) 325 Assistive Devices Assistive Device None,Gait Belt Gait Deviations General Gait Pattern Antalgic,Ataxic,Decreased Stride Length,Decreased Feet Clearance,Flexed Trunk,Lateral Trunk Lean PT-OP-M Strength Start: 10/12/17 18:11 Freq: Status: Active Protocol: Document 03/21/19 10:30 DCW (Rec: 03/21/19 11:12 DCW [id number]) Hip Strength Hip Manual Muscle Testing Right Flexion (L2) 5 Normal Abduction 5 Normal Adduction 5 Normal Left Flexion (L2) 4+ Good+ Abduction 5 Normal Adduction 5 Normal Knee Strength Knee Manual Muscle Testing Right Flexion (S2) 5 Normal Extension (L3) 5 Normal Left Flexion (S2) 4+ Good+ Extension (L3) 5 Normal Ankle/Foot Strength Ankle and Foot Manual Muscle Testing Right Dorsiflexion (L4) 2 Poor Plantarflexion (S1) 3+ Fair+ Left Dorsiflexion (L4) 4+ Good+ Plantarflexion (S1) 5 Normal PT-OP-Q Treatments Start: 09/28/17 15:21 Freq: Status: Active Protocol: Document 06/06/19 09:45 DCW (Rec: 06/06/19 10:32 DCW [id number]) Gym Equipment Shuttle Recovery Bilateral Heel Raises Resistance 137# Reps/Time x60 Unilateral Squats Resistance 100# Shuttle Recovery Platform Stable Reps/Time x20 each Bilateral Squats Resistance 162# Shuttle Recovery Platform Stable Reps/Time x30 Gait Training Gait Activity 2 Description Ambulation /s AD Device Used none Level of Assistance CGA Distance/Duration 280' x1, 240' x1 Treatment Focus Focus on increased step length , continous movement, arm swing Comments Pt ambulated around gym and avoided obstacles. Neuro Re-Education Treatment Balance Activities 1 Details Reach forward to touch targets Surface Firm and Blue Foam PT-OP-T Assessment and Plan Start: 09/28/17 15:21 Freq: Status: Active Protocol: Document 06/06/19 09:45 DCW (Rec: 06/06/19 10:32 DCW [id number]) Physical Therapy Assessment Impairments Impairments Activity Tolerance,Balance, Functional Activities, Functional Mobility,Gait,ROM, Strength Goals Eight Impairment Unassisted Gait Short Term Goal (STG) Pt to ambulate 300' SBA /s AD STG Duration Met Detention Goal (LTG) Pt to ambulate 400' SBA /s AD LTG Duration 05/21/19 Seven Impairment Donis Short Term Goal (STG) Pt to score 22/56 on Donis Balance scale STG Duration Met Detention Goal (LTG) Pt to score 35/56 on Donis Balance scale LTG Duration 05/21/19 Six Impairment Static Standing Balance Short Term Goal (STG) Pt to stand independently for 2 minutes STG Duration Met Fitter Placer Goal (LTG) Pt to stand independently for 3 minutes LTG Duration 05/21/19 - Improving Five Impairment 6 MWT Fitter Placer Goal (LTG) Pt to ambulate 1000' without rest using 4WW during 6 MWT (03/21/19: 957') LTG Duration 05/21/19 - Improving Four Impairment Foot slap Short Term Goal (STG) Pt to regularly wear R AFO to limit foot drop and help normalize gait pattern STG Duration Met Three Impairment Transfers Short Term Goal (STG) Pt to transfer independently from mat<->w/c with no assistive devices STG Duration Met Two Impairment Ankle weakness Detention Goal (LTG) Pt to display 2/5 MMT in R DF, 4/5 MMT in R PF, and 4+/5 MMT in all other bilateral ankle movements LTG Duration 05/21/19 - Improving One Impairment Activity tolerance Fitter Placer Goal (LTG) Pt to tolerate activity up to 15 minutes without a break LTG Duration 05/21/19 - Improving Assessment Summary Assessment Pt doing well today, appeared to be near his usual baseline despite his concerns of increased right leg weakness. Pt also concerned that all his medical appointments is having a negative effect on his , and would like to think about reducing his frequency to once a week. Physical Therapy Plan Frequency and Duration Frequency of Treatment 2x/Week Duration of Treatment 3 months Plan of Care Start Date 03/21/19 Plan of Care End Date 06/19/19 Therapeutic Interventions Therapeutic Interventions Aquatic Therapy,Balance Training,Gait Training,Home Exercise Program,Manual Therapy,Neuromuscular Re- education,Soft Tissue Mobilization,Therapeutic Activities,Therapeutic Exercises Next Visit Focus/Plan Next Note Type Treatment Note Next Visit Plan Continue focus on opposing arm swing during gait, increasing activity tolerance, increasing gait /s an AD, and improving balance
--- NOTE | 2019-06-09 10:30 | PT.OTN ---
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 with return to pre-existing conscious level, subsequent encounter (06/09/19) History of falling (06/09/19) Physical Therapy Treatment Note PT-OP-A Visit Information Start: 09/28/17 15:21 Freq: Status: Active Protocol: Document 06/09/19 09:45 DCW (Rec: 06/09/19 10:30 DCW [id number]) Out-Patient Physical Therapy Visit Information Visit Information Visit Type Treatment Note Visit Start Time 09:45 Visit Stop Time 10:30 Total Visit Minutes 45 Visit Number 12/07 Number of HAT LINING BLOCKER Visits 0 Evaluation Information Evaluation Date 07/27/17 PT-OP-B Current Condition Start: 09/28/17 15:21 Freq: Status: Active Protocol: Document 10/12/17 13:45 DCW (Rec: 10/12/17 18:33 DCW [id number]) Current Condition History of Current Condition Onset Date 02/05/17 History of Current Condition See Pt's initial evaluation in Therapy Source Current Functional Impairments (Reported) Functional Limitations- Mobility/Gait Transfers:W/C<->Mat Stand- pivot: Independent PT-OP-C Subjective Start: 09/28/17 15:21 Freq: Status: Active Protocol: Document 06/09/19 09:45 DCW (Rec: 06/09/19 10:30 DCW [id number]) OP-PT Subjective Patient Comments Patient Comments Pt a little tired today. PT-OP-D Balance Start: 10/12/17 18:11 Freq: Status: Active Protocol: Document 03/21/19 10:30 DCW (Rec: 03/21/19 11:12 DCW [id number]) OP-PT Balance Assessment Standing Balance Standing Balance Comments Double leg, Eyes open: 136 Donis Balance Assessment Evaluation Sitting to Standing Ability Independent w/Hands Unsupported Stance Supervision- 2 minutes Sitting Unsupported, Feet on Floor Safely- 2 minutes Standing to Sitting Ability Assist, Control w/Hands Transfer Ability Safely, Hand Use Unsupported Stance- Eyes Closed 3 seconds Unsupported Stance- Eyes Open Supervision to maintain Reaching Forward Standing Safely, 5 inches Pick- Up Object From Floor Within 2 inches, Unable Look Behind Shoulder - Standing Turns Sideways Only Turning 360 Degrees Requires Assistance Unsupported Stance, Alternating Feet on 2 Steps w/Minimum Assist Stair Unsupported Tandem Stance Small Step- 30 seconds Unilateral Leg Stance Lifts Leg/Unable to Hold Total Score Donis Total Score (out of 56 points) 32 Donis Impairment Rating 40 to 59% Impaired (Score 23- 33) Mejia Fall Scale Copyright Permission PT-OP-E Functional Tests Start: 10/12/17 18:11 Freq: Status: Active Protocol: Document 03/21/19 10:30 DCW (Rec: 03/21/19 11:12 DCW [id number]) Functional Tests 6 Minute Walk Test Distance 957' Device Used 4WW PT-OP-G Mobility & Gait Start: 12/23/18 10:02 Freq: Status: Active Protocol: Document 03/21/19 10:30 DCW (Rec: 03/21/19 11:12 DCW [id number]) OP Gait Assessment Gait Gait Assistance Required: Contact Guard Assist Distance (Feet) 325 Assistive Devices Assistive Device None,Gait Belt Gait Deviations General Gait Pattern Antalgic,Ataxic,Decreased Stride Length,Decreased Feet Clearance,Flexed Trunk,Lateral Trunk Lean PT-OP-M Strength Start: 10/12/17 18:11 Freq: Status: Active Protocol: Document 03/21/19 10:30 DCW (Rec: 03/21/19 11:12 DCW [id number]) Hip Strength Hip Manual Muscle Testing Right Flexion (L2) 5 Normal Abduction 5 Normal Adduction 5 Normal Left Flexion (L2) 4+ Good+ Abduction 5 Normal Adduction 5 Normal Knee Strength Knee Manual Muscle Testing Right Flexion (S2) 5 Normal Extension (L3) 5 Normal Left Flexion (S2) 4+ Good+ Extension (L3) 5 Normal Ankle/Foot Strength Ankle and Foot Manual Muscle Testing Right Dorsiflexion (L4) 2 Poor Plantarflexion (S1) 3+ Fair+ Left Dorsiflexion (L4) 4+ Good+ Plantarflexion (S1) 5 Normal PT-OP-Q Treatments Start: 09/28/17 15:21 Freq: Status: Active Protocol: Document 06/09/19 09:45 DCW (Rec: 06/09/19 10:30 DCW [id number]) Gym Equipment Shuttle Recovery Bilateral Heel Raises Resistance 137# Reps/Time x60 Unilateral Squats Resistance 100# Shuttle Recovery Platform Stable Reps/Time x20 each Bilateral Squats Resistance 162# Shuttle Recovery Platform Stable Reps/Time x30 Gait Training Gait Activity 2 Description Ambulation /s AD Device Used none Level of Assistance CGA Distance/Duration 290' x1, 50' x1 Treatment Focus Focus on increased step length , continous movement, arm swing Comments Pt ambulated around gym and avoided obstacles. Neuro Re-Education Treatment Balance Activities 3 Details Kicking over cones Comments Knocking over cones with specific foot while standing/ walking /s AD, Mod A x1 2 Details Cone/Ball transfers Comments Static stance PT-OP-T Assessment and Plan Start: 09/28/17 15:21 Freq: Status: Active Protocol: Document 06/09/19 09:45 DCW (Rec: 06/09/19 10:30 DCW [id number]) Physical Therapy Assessment Impairments Impairments Activity Tolerance,Balance, Functional Activities, Functional Mobility,Gait,ROM, Strength Goals Eight Impairment Unassisted Gait Short Term Goal (STG) Pt to ambulate 300' SBA /s AD STG Duration Met Grated Cheese Maker Goal (LTG) Pt to ambulate 400' SBA /s AD LTG Duration 05/21/19 Seven Impairment Donis Short Term Goal (STG) Pt to score 22/56 on Donis Balance scale STG Duration Met Grated Cheese Maker Goal (LTG) Pt to score 35/56 on Donis Balance scale LTG Duration 05/21/19 Six Impairment Static Standing Balance Short Term Goal (STG) Pt to stand independently for 2 minutes STG Duration Met Retirement Goal (LTG) Pt to stand independently for 3 minutes LTG Duration 05/21/19 - Improving Five Impairment 6 MWT Grated Cheese Maker Goal (LTG) Pt to ambulate 1000' without rest using 4WW during 6 MWT (03/21/19: 957') LTG Duration 05/21/19 - Improving Four Impairment Foot slap Short Term Goal (STG) Pt to regularly wear R AFO to limit foot drop and help normalize gait pattern STG Duration Met Three Impairment Transfers Short Term Goal (STG) Pt to transfer independently from mat<->w/c with no assistive devices STG Duration Met Two Impairment Ankle weakness Retirement Goal (LTG) Pt to display 2/5 MMT in R DF, 4/5 MMT in R PF, and 4+/5 MMT in all other bilateral ankle movements LTG Duration 05/21/19 - Improving One Impairment Activity tolerance Grated Cheese Maker Goal (LTG) Pt to tolerate activity up to 15 minutes without a break LTG Duration 05/21/19 - Improving Assessment Summary Assessment Pt noticeably fatigued today, required increased rest breaks and was unable to ambulate his usual distance. Physical Therapy Plan Frequency and Duration Frequency of Treatment 2x/Week Duration of Treatment 3 months Plan of Care Start Date 03/21/19 Plan of Care End Date 06/19/19 Therapeutic Interventions Therapeutic Interventions Aquatic Therapy,Balance Training,Gait Training,Home Exercise Program,Manual Therapy,Neuromuscular Re- education,Soft Tissue Mobilization,Therapeutic Activities,Therapeutic Exercises Next Visit Focus/Plan Next Note Type Treatment Note Next Visit Plan Continue focus on opposing arm swing during gait, increasing activity tolerance, increasing gait /s an AD, and improving balance
--- NOTE | 2019-06-13 10:23 | PT.OTN ---
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 greater than 24 hours with return to pre-existing conscious level, subsequent encounter (06/13/19) History of falling (06/13/19) Physical Therapy Treatment Note PT-OP-A Visit Information Start: 09/28/17 15:21 Freq: Status: Active Protocol: Document 06/13/19 09:40 DCW (Rec: 06/13/19 10:23 DCW [id number]) Out-Patient Physical Therapy Visit Information Visit Information Visit Type Treatment Note Visit Start Time 09:40 Visit Stop Time 10:25 Total Visit Minutes 45 Visit Number 01/07 Number of MACARONI PRESS OPERATOR Visits 0 Evaluation Information Evaluation Date 07/27/17 PT-OP-B Current Condition Start: 09/28/17 15:21 Freq: Status: Active Protocol: Document 10/12/17 13:45 DCW (Rec: 10/12/17 18:33 DCW [id number]) Current Condition History of Current Condition Onset Date 02/05/17 History of Current Condition See Pt's initial evaluation in Therapy Source Current Functional Impairments (Reported) Functional Limitations- Mobility/Gait Transfers:W/C<->Mat Stand- pivot: Independent PT-OP-C Subjective Start: 09/28/17 15:21 Freq: Status: Active Protocol: Document 06/13/19 09:40 DCW (Rec: 06/13/19 10:23 DCW [id number]) OP-PT Subjective Patient Comments Patient Comments Pt reports he was up early to get to his 's appointment in [place] at 8 am, so he is already pretty worn out. PT-OP-D Balance Start: 10/12/17 18:11 Freq: Status: Active Protocol: Document 03/21/19 10:30 DCW (Rec: 03/21/19 11:12 DCW [id number]) OP-PT Balance Assessment Standing Balance Standing Balance Comments Double leg, Eyes open: 1'36 Donis Balance Assessment Evaluation Sitting to Standing Ability Independent w/Hands Unsupported Stance Supervision- 2 minutes Sitting Unsupported, Feet on Floor Safely- 2 minutes Standing to Sitting Ability Assist, Control w/Hands Transfer Ability Safely, Hand Use Unsupported Stance- Eyes Closed 3 seconds Unsupported Stance- Eyes Open Supervision to maintain Reaching Forward Standing Safely, 5 inches Pick- Up Object From Floor Within 2 inches, Unable Look Behind Shoulder - Standing Turns Sideways Only Turning 360 Degrees Requires Assistance Unsupported Stance, Alternating Feet on 2 Steps w/Minimum Assist Stair Unsupported Tandem Stance Small Step- 30 seconds Unilateral Leg Stance Lifts Leg/Unable to Hold Total Score Donis Total Score (out of 56 points) 32 Donis Impairment Rating 40 to 59% Impaired (Score 23- 33) Mejia Fall Scale Copyright Permission PT-OP-E Functional Tests Start: 10/12/17 18:11 Freq: Status: Active Protocol: Document 03/21/19 10:30 DCW (Rec: 03/21/19 11:12 DCW [id number]) Functional Tests 6 Minute Walk Test Distance 957' Device Used 4WW PT-OP-G Mobility & Gait Start: 12/23/18 10:02 Freq: Status: Active Protocol: Document 03/21/19 10:30 DCW (Rec: 03/21/19 11:12 DCW [id number]) OP Gait Assessment Gait Gait Assistance Required: Contact Guard Assist Distance (Feet) 325 Assistive Devices Assistive Device None,Gait Belt Gait Deviations General Gait Pattern Antalgic,Ataxic,Decreased Stride Length,Decreased Feet Clearance,Flexed Trunk,Lateral Trunk Lean PT-OP-M Strength Start: 10/12/17 18:11 Freq: Status: Active Protocol: Document 03/21/19 10:30 DCW (Rec: 03/21/19 11:12 DCW [id number]) Hip Strength Hip Manual Muscle Testing Right Flexion (L2) 5 Normal Abduction 5 Normal Adduction 5 Normal Left Flexion (L2) 4+ Good+ Abduction 5 Normal Adduction 5 Normal Knee Strength Knee Manual Muscle Testing Right Flexion (S2) 5 Normal Extension (L3) 5 Normal Left Flexion (S2) 4+ Good+ Extension (L3) 5 Normal Ankle/Foot Strength Ankle and Foot Manual Muscle Testing Right Dorsiflexion (L4) 2 Poor Plantarflexion (S1) 3+ Fair+ Left Dorsiflexion (L4) 4+ Good+ Plantarflexion (S1) 5 Normal PT-OP-Q Treatments Start: 09/28/17 15:21 Freq: Status: Active Protocol: Document 06/13/19 09:40 DCW (Rec: 06/13/19 10:23 DCW [id number]) Gym Equipment Shuttle Recovery Bilateral Heel Raises Resistance 137# Reps/Time x60 Unilateral Squats Resistance 100# Shuttle Recovery Platform Stable Reps/Time x20 each Bilateral Squats Resistance 162# Shuttle Recovery Platform Stable Reps/Time x30 Shuttle Balance 1 Details Blue Comments Wide WILIAN Gait Training Gait Activity 2 Description Ambulation /s AD Device Used none Level of Assistance CGA Distance/Duration 170' x1 Treatment Focus Focus on increased step length , continous movement, arm swing Comments Pt ambulated around gym and avoided obstacles. PT-OP-T Assessment and Plan Start: 09/28/17 15:21 Freq: Status: Active Protocol: Document 06/13/19 09:40 DCW (Rec: 06/13/19 10:23 DCW [id number]) Physical Therapy Assessment Impairments Impairments Activity Tolerance,Balance, Functional Activities, Functional Mobility,Gait,ROM, Strength Goals Eight Impairment Unassisted Gait Short Term Goal (STG) Pt to ambulate 300' SBA /s AD STG Duration Met Retirement Goal (LTG) Pt to ambulate 400' SBA /s AD LTG Duration 05/21/19 Seven Impairment Donis Short Term Goal (STG) Pt to score 22/56 on Donis Balance scale STG Duration Met It Teacher Goal (LTG) Pt to score 35/56 on Odnis Balance scale LTG Duration 05/21/19 Six Impairment Static Standing Balance Short Term Goal (STG) Pt to stand independently for 2 minutes STG Duration Met It Teacher Goal (LTG) Pt to stand independently for 3 minutes LTG Duration 05/21/19 - Improving Five Impairment 6 MWT Retirement Goal (LTG) Pt to ambulate 1000' without rest using 4WW during 6 MWT (03/21/19: 957') LTG Duration 05/21/19 - Improving Four Impairment Foot slap Short Term Goal (STG) Pt to regularly wear R AFO to limit foot drop and help normalize gait pattern STG Duration Met Three Impairment Transfers Short Term Goal (STG) Pt to transfer independently from mat<->w/c with no assistive devices STG Duration Met Two Impairment Ankle weakness Retirement Goal (LTG) Pt to display 2/5 MMT in R DF, 4/5 MMT in R PF, and 4+/5 MMT in all other bilateral ankle movements LTG Duration 05/21/19 - Improving One Impairment Activity tolerance It Teacher Goal (LTG) Pt to tolerate activity up to 15 minutes without a break LTG Duration 05/21/19 - Improving Assessment Summary Assessment Pt struggling a lot today, required increased rest breaks , only able to ambulate half of his usual distance. Physical Therapy Plan Frequency and Duration Frequency of Treatment 2x/Week Duration of Treatment 3 months Plan of Care Start Date 03/21/19 Plan of Care End Date 06/19/19 Therapeutic Interventions Therapeutic Interventions Aquatic Therapy,Balance Training,Gait Training,Home Exercise Program,Manual Therapy,Neuromuscular Re- education,Soft Tissue Mobilization,Therapeutic Activities,Therapeutic Exercises Next Visit Focus/Plan Next Note Type Progress Note Next Visit Plan Continue focus on opposing arm swing during gait, increasing activity tolerance, increasing gait /s an AD, and improving balance
--- NOTE | 2019-06-20 11:32 | PT.OTN ---
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 hours with return to pre-existing conscious level, subsequent encounter (06/20/19) History of falling (06/20/19) Physical Therapy Treatment Note PT-OP-A Visit Information Start: 09/28/17 15:21 Freq: Status: Active Protocol: Document 06/20/19 09:45 DCW (Rec: 06/20/19 11:31 DCW [id number]) Out-Patient Physical Therapy Visit Information Visit Information Visit Type Progress Note Visit Start Time 09:45 Visit Stop Time 10:30 Total Visit Minutes 45 Visit Number 06/09 Number of FULLER BRUSH WORKER Visits 0 Evaluation Information Evaluation Date 07/27/17 PT-OP-B Current Condition Start: 09/28/17 15:21 Freq: Status: Active Protocol: Document 10/12/17 13:45 DCW (Rec: 10/12/17 18:33 DCW [id number]) Current Condition History of Current Condition Onset Date 02/05/17 History of Current Condition See Pt's initial evaluation in Therapy Source Current Functional Impairments (Reported) Functional Limitations- Mobility/Gait Transfers:W/C<->Mat Stand- pivot: Independent PT-OP-C Subjective Start: 09/28/17 15:21 Freq: Status: Active Protocol: Document 06/20/19 09:45 DCW (Rec: 06/20/19 11:31 DCW [id number]) OP-PT Subjective Patient Comments Patient Comments Pt discussed how thrilled he is with his current progress, and that he never could have imagined he would reach this level of function. Pt is, however, concerned he may have reached a progress plateau. PT-OP-D Balance Start: 10/12/17 18:11 Freq: Status: Active Protocol: Document 06/20/19 09:45 DCW (Rec: 06/20/19 10:30 DCW [id number]) OP-PT Balance Assessment Standing Balance Standing Balance Comments Double leg, Eyes open: 1'35 Donis Balance Assessment Evaluation Sitting to Standing Ability Independent w/Hands Unsupported Stance 30 seconds Sitting Unsupported, Feet on Floor Safely- 2 minutes Standing to Sitting Ability Assist, Control w/Hands Transfer Ability Safely, Hand Use Unsupported Stance- Eyes Closed Supervision, 10 seconds Unsupported Stance- Eyes Open Supervision to maintain Reaching Forward Standing Safely, 5 inches Pick- Up Object From Floor Supervision Look Behind Shoulder - Standing Turns Sideways Only Turning 360 Degrees Supervision/Verbal Cues Unsupported Stance, Alternating Feet on Assist to Prevent Fall Stair Unsupported Tandem Stance Small Step- 30 seconds Unilateral Leg Stance Lifts Leg/Unable to Hold Total Score Donis Total Score (out of 56 points) 33 Donis Impairment Rating 40 to 59% Impaired (Score 23- 33) Mejia Fall Scale Copyright Permission PT-OP-E Functional Tests Start: 10/12/17 18:11 Freq: Status: Active Protocol: Document 06/20/19 09:45 DCW (Rec: 06/20/19 10:30 DCW [id number]) Functional Tests 6 Minute Walk Test Distance 964' Device Used 4WW PT-OP-G Mobility & Gait Start: 12/23/18 10:02 Freq: Status: Active Protocol: Document 06/20/19 09:45 DCW (Rec: 06/20/19 10:30 DCW [id number]) OP Gait Assessment Gait Gait Assistance Required: Contact Guard Assist Distance (Feet) 360 Assistive Devices Assistive Device None,Gait Belt Gait Deviations General Gait Pattern Antalgic,Ataxic,Decreased Stride Length,Decreased Feet Clearance,Flexed Trunk,Lateral Trunk Lean PT-OP-M Strength Start: 10/12/17 18:11 Freq: Status: Active Protocol: Document 03/21/19 10:30 DCW (Rec: 03/21/19 11:12 DCW [id number]) Hip Strength Hip Manual Muscle Testing Right Flexion (L2) 5 Normal Abduction 5 Normal Adduction 5 Normal Left Flexion (L2) 4+ Good+ Abduction 5 Normal Adduction 5 Normal Knee Strength Knee Manual Muscle Testing Right Flexion (S2) 5 Normal Extension (L3) 5 Normal Left Flexion (S2) 4+ Good+ Extension (L3) 5 Normal Ankle/Foot Strength Ankle and Foot Manual Muscle Testing Right Dorsiflexion (L4) 2 Poor Plantarflexion (S1) 3+ Fair+ Left Dorsiflexion (L4) 4+ Good+ Plantarflexion (S1) 5 Normal PT-OP-Q Treatments Start: 09/28/17 15:21 Freq: Status: Active Protocol: Document 06/20/19 09:45 DCW (Rec: 06/20/19 11:31 DCW [id number]) Gait Training Gait Activity 1 Description 6 MWT Neuro Re-Education Treatment Other Activities 1 Details Standing balance testing, Donis balance test PT-OP-T Assessment and Plan Start: 09/28/17 15:21 Freq: Status: Active Protocol: Document 06/20/19 09:45 DCW (Rec: 06/20/19 11:31 DCW [id number]) Physical Therapy Assessment Impairments Impairments Activity Tolerance,Balance, Functional Activities, Functional Mobility,Gait,ROM, Strength Goals Eight Impairment Unassisted Gait Short Term Goal (STG) Pt to ambulate 300' SBA /s AD STG Duration Met Hand Glass Cutter Goal (LTG) Pt to ambulate 400' SBA /s AD LTG Duration 08/18/29 - Improvin' SBA /s AD Seven Impairment Donis Short Term Goal (STG) Pt to score 22/56 on Donis Balance scale STG Duration Met Hand Glass Cutter Goal (LTG) Pt to score 35/56 on Donis Balance scale LTG Duration 08/19/19 - Improvin/56 Six Impairment Static Standing Balance Short Term Goal (STG) Pt to stand independently for 2 minutes STG Duration Met Hand Glass Cutter Goal (LTG) Pt to stand independently for 3 minutes LTG Duration 08/19/19 Five Impairment 6 MWT Hand Glass Cutter Goal (LTG) Pt to ambulate 1000' without rest using 4WW during 6 MWT (06/20/19: 964') LTG Duration 08/19/19 Four Impairment Foot slap Short Term Goal (STG) Pt to regularly wear R AFO to limit foot drop and help normalize gait pattern STG Duration Met Three Impairment Transfers Short Term Goal (STG) Pt to transfer independently from mat<->w/c with no assistive devices STG Duration Met Two Impairment Ankle weakness Senior Living Goal (LTG) Pt to display 2/5 MMT in R DF, 4/5 MMT in R PF, and 4+/5 MMT in all other bilateral ankle movements LTG Duration 08/19/19 One Impairment Activity tolerance Senior Living Goal (LTG) Pt to tolerate activity up to 15 minutes without a break LTG Duration 3/21/20 Assessment Summary Assessment Pt testing fairly similar to last reassessment, he may be reaching a progress plateau. Plan to reduce frequency of therapy from 2x/week to 1x/ week and determine how pt is able to perform when he is required to perform more independent HEP. If pt maintains current function, he may be at his maximal level of function, and may need to be discharged at that time. Physical Therapy Plan Frequency and Duration Frequency of Treatment 1x/Week Duration of Treatment 3 months Plan of Care Start Date 06/20/19 Plan of Care End Date 09/18/19 Therapeutic Interventions Therapeutic Interventions Aquatic Therapy,Balance Training,Gait Training,Home Exercise Program,Manual Therapy,Neuromuscular Re- education,Soft Tissue Mobilization,Therapeutic Activities,Therapeutic Exercises Next Visit Focus/Plan Next Note Type Treatment Note Next Visit Plan Continue focus on opposing arm swing during gait, increasing activity tolerance, increasing gait /s an AD, and improving balance
--- NOTE | 2019-06-20 11:33 | PT.OPPOC ---
Physical, Occupational & Speech Therapy At [facility] 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 hours with return to pre-existing conscious level, subsequent encounter (06/20/19) History of falling (06/20/19) Visit Care Team Role Provider Type Elver Eubanks MD Attending Provider Physician Family Provider Primary Care Provider Specialty: Internal Medicine Address: [address] [place] [address], [facility] Email: [email or web address] Plan Of Care PT-OP-T Assessment and Plan Start: 09/28/17 15:21 Freq: Status: Active Protocol: Document 06/20/19 09:45 DCW (Rec: 06/20/19 11:31 DCW [id number]) Physical Therapy Assessment Impairments Impairments Activity Tolerance,Balance, Functional Activities, Functional Mobility,Gait,ROM, Strength Goals Eight Impairment Unassisted Gait Short Term Goal (STG) Pt to ambulate 300' SBA /s AD STG Duration Met Usp Goal (LTG) Pt to ambulate 400' SBA /s AD LTG Duration 08/18/29 - Improvin' SBA /s AD Seven Impairment Donis Short Term Goal (STG) Pt to score 22/56 on Donis Balance scale STG Duration Met Usp Goal (LTG) Pt to score 35/56 on Donis Balance scale LTG Duration 08/19/19 - Improvin/56 Six Impairment Static Standing Balance Short Term Goal (STG) Pt to stand independently for 2 minutes STG Duration Met Refinery Pipeline Operator Goal (LTG) Pt to stand independently for 3 minutes LTG Duration 08/19/19 Five Impairment 6 MWT Usp Goal (LTG) Pt to ambulate 1000' without rest using 4WW during 6 MWT (06/20/19: 964') LTG Duration 08/19/19 Four Impairment Foot slap Short Term Goal (STG) Pt to regularly wear R AFO to limit foot drop and help normalize gait pattern STG Duration Met Three Impairment Transfers Short Term Goal (STG) Pt to transfer independently from mat<->w/c with no assistive devices STG Duration Met Two Impairment Ankle weakness Refinery Pipeline Operator Goal (LTG) Pt to display 2/5 MMT in R DF, 4/5 MMT in R PF, and 4+/5 MMT in all other bilateral ankle movements LTG Duration 08/19/19 One Impairment Activity tolerance Usp Goal (LTG) Pt to tolerate activity up to 15 minutes without a break LTG Duration 08/19/19 Assessment Summary Assessment Pt testing fairly similar to last reassessment, he may be reaching a progress plateau. Plan to reduce frequency of therapy from 2x/week to 1x/ week and determine how pt is able to perform when he is required to perform more independent HEP. If pt maintains current function, he may be at his maximal level of function, and may need to be discharged at that time. Physical Therapy Plan Frequency and Duration Frequency of Treatment 1x/Week Duration of Treatment 3 months Plan of Care Start Date 06/20/19 Plan of Care End Date 09/18/19 Therapeutic Interventions Therapeutic Interventions Aquatic Therapy,Balance Training,Gait Training,Home Exercise Program,Manual Therapy,Neuromuscular Re- education,Soft Tissue Mobilization,Therapeutic Activities,Therapeutic Exercises Next Visit Focus/Plan Next Note Type Treatment Note Next Visit Plan Continue focus on opposing arm swing during gait, increasing activity tolerance, increasing gait /s an AD, and improving balance Plan of Care Dates Plan of Care Start Date 06/20/19 Plan of Care End Date 09/18/19 Electronically Signed by: Jose Martin Freitas, PT 06/20/19 6216 Please Sign and Return: I have reviewed this Plan of Care and certify that the skilled therapy services above are required to meet the patient?s needs. Physician Signature Date Printed Name and Credentials Clinical Instructor Signature Printed Name and Credentials
--- NOTE | 2019-07-14 10:23 | PT.OTN ---
Current Diagnoses Foot drop, right foot (07/14/19) Muscle weakness (generalized) (07/14/19) Unsteadiness on feet (07/14/19) Unspecified abnormalities of gait and mobility (07/14/19) Traumatic subdural hemorrhage with loss of consciousness greater than 24 hours with return to pre-existing conscious level, subsequent encounter (07/14/19) History of falling (07/14/19) Physical Therapy Treatment Note PT-OP-A Visit Information Start: 09/28/17 15:21 Freq: Status: Active Protocol: Document 07/14/19 09:30 DCW (Rec: 07/14/19 10:22 DCW [id number]) Out-Patient Physical Therapy Visit Information Visit Information Visit Type Treatment Note Visit Start Time 09:30 Visit Stop Time 10:15 Total Visit Minutes 45 Visit Number 07/10 Number of CLINICAL LABORATORY AIDE Visits 0 Evaluation Information Evaluation Date 07/27/19 PT-OP-B Current Condition Start: 09/28/17 15:21 Freq: Status: Active Protocol: Document 10/12/17 13:45 DCW (Rec: 10/12/17 18:33 DCW [id number]) Current Condition History of Current Condition Onset Date 02/05/17 History of Current Condition See Pt's initial evaluation in Therapy Source Current Functional Impairments (Reported) Functional Limitations- Mobility/Gait Transfers:W/C<->Mat Stand- pivot: Independent PT-OP-C Subjective Start: 09/28/17 15:21 Freq: Status: Active Protocol: Document 07/14/19 09:30 DCW (Rec: 07/14/19 10:22 DCW [id number]) OP-PT Subjective Patient Comments Patient Comments Pt has not been at therapy for a few weeks. Pt reports he had E. Coli, and was having significant bleeding in his urine. told him it was okay to resume PT, but nothing with pressure on my abdomen. PT-OP-D Balance Start: 10/12/17 18:11 Freq: Status: Active Protocol: Document 06/20/19 09:45 DCW (Rec: 06/20/19 10:30 DCW [id number]) OP-PT Balance Assessment Standing Balance Standing Balance Comments Double leg, Eyes open: 1'35 Donis Balance Assessment Evaluation Sitting to Standing Ability Independent w/Hands Unsupported Stance 30 seconds Sitting Unsupported, Feet on Floor Safely- 2 minutes Standing to Sitting Ability Assist, Control w/Hands Transfer Ability Safely, Hand Use Unsupported Stance- Eyes Closed Supervision, 10 seconds Unsupported Stance- Eyes Open Supervision to maintain Reaching Forward Standing Safely, 5 inches Pick- Up Object From Floor Supervision Look Behind Shoulder - Standing Turns Sideways Only Turning 360 Degrees Supervision/Verbal Cues Unsupported Stance, Alternating Feet on Assist to Prevent Fall Stair Unsupported Tandem Stance Small Step- 30 seconds Unilateral Leg Stance Lifts Leg/Unable to Hold Total Score Donis Total Score (out of 56 points) 33 Donis Impairment Rating 40 to 59% Impaired (Score 23- 33) Mejia Fall Scale Copyright Permission PT-OP-E Functional Tests Start: 10/12/17 18:11 Freq: Status: Active Protocol: Document 06/20/19 09:45 DCW (Rec: 06/20/19 10:30 DCW [id number]) Functional Tests 6 Minute Walk Test Distance 964' Device Used 4WW PT-OP-G Mobility & Gait Start: 12/23/18 10:02 Freq: Status: Active Protocol: Document 06/20/19 09:45 DCW (Rec: 06/20/19 10:30 DCW [id number]) OP Gait Assessment Gait Gait Assistance Required: Contact Guard Assist Distance (Feet) 360 Assistive Devices Assistive Device None,Gait Belt Gait Deviations General Gait Pattern Antalgic,Ataxic,Decreased Stride Length,Decreased Feet Clearance,Flexed Trunk,Lateral Trunk Lean PT-OP-M Strength Start: 10/12/17 18:11 Freq: Status: Active Protocol: Document 03/21/19 10:30 DCW (Rec: 03/21/19 11:12 DCW [id number]) Hip Strength Hip Manual Muscle Testing Right Flexion (L2) 5 Normal Abduction 5 Normal Adduction 5 Normal Left Flexion (L2) 4+ Good+ Abduction 5 Normal Adduction 5 Normal Knee Strength Knee Manual Muscle Testing Right Flexion (S2) 5 Normal Extension (L3) 5 Normal Left Flexion (S2) 4+ Good+ Extension (L3) 5 Normal Ankle/Foot Strength Ankle and Foot Manual Muscle Testing Right Dorsiflexion (L4) 2 Poor Plantarflexion (S1) 3+ Fair+ Left Dorsiflexion (L4) 4+ Good+ Plantarflexion (S1) 5 Normal PT-OP-Q Treatments Start: 09/28/17 15:21 Freq: Status: Active Protocol: Document 07/14/19 09:30 DCW (Rec: 07/14/19 10:22 DCW [id number]) Gym Equipment Shuttle Balance 1 Details Blue Comments Wide WILIAN Gait Training Gait Activity 2 Description Ambulation /s AD Device Used none Level of Assistance CGA Distance/Duration 345' x1 Treatment Focus Focus on increased step length , continous movement, arm swing Comments Pt ambulated around gym and avoided obstacles. Neuro Re-Education Treatment Balance Activities 3 Details Kicking over cones Comments Knocking over cones with specific foot while standing/ walking /s AD, Mod A x1 2 Details Cone/Ball transfers Comments During gait PT-OP-T Assessment and Plan Start: 09/28/17 15:21 Freq: Status: Active Protocol: Document 07/14/19 09:30 DCW (Rec: 07/14/19 10:22 DCW [id number]) Physical Therapy Assessment Impairments Impairments Activity Tolerance,Balance, Functional Activities, Functional Mobility,Gait,ROM, Strength Goals Eight Impairment Unassisted Gait Short Term Goal (STG) Pt to ambulate 300' SBA /s AD STG Duration Met Machine Adjuster Leader Case Trim Goal (LTG) Pt to ambulate 400' SBA /s AD LTG Duration 08/18/29 - Improvin' SBA /s AD Seven Impairment Donis Short Term Goal (STG) Pt to score 22/56 on Donis Balance scale STG Duration Met Machine Adjuster Leader Case Trim Goal (LTG) Pt to score 35/56 on Donis Balance scale LTG Duration 08/19/19 - Improvin/56 Six Impairment Static Standing Balance Short Term Goal (STG) Pt to stand independently for 2 minutes STG Duration Met Mcfp Goal (LTG) Pt to stand independently for 3 minutes LTG Duration 08/19/19 Five Impairment 6 MWT Machine Adjuster Leader Case Trim Goal (LTG) Pt to ambulate 1000' without rest using 4WW during 6 MWT (06/20/19: 964') LTG Duration 08/19/19 Four Impairment Foot slap Short Term Goal (STG) Pt to regularly wear R AFO to limit foot drop and help normalize gait pattern STG Duration Met Three Impairment Transfers Short Term Goal (STG) Pt to transfer independently from mat<->w/c with no assistive devices STG Duration Met Two Impairment Ankle weakness Mcfp Goal (LTG) Pt to display 2/5 MMT in R DF, 4/5 MMT in R PF, and 4+/5 MMT in all other bilateral ankle movements LTG Duration 08/19/19 One Impairment Activity tolerance Mcfp Goal (LTG) Pt to tolerate activity up to 15 minutes without a break LTG Duration 08/19/19 Assessment Summary Assessment Pt did exceptionally well today, much better than expected after a long layoff. He was walking much more upright, and was displaying right arm swing without any cueing. Pt balance and activity tolerance both were improved today as well, displaying increased ability to use ankle strategies on Shuttle Balance. Physical Therapy Plan Frequency and Duration Frequency of Treatment 1x/Week Duration of Treatment 3 months Plan of Care Start Date 06/20/19 Plan of Care End Date 09/18/19 Therapeutic Interventions Therapeutic Interventions Aquatic Therapy,Balance Training,Gait Training,Home Exercise Program,Manual Therapy,Neuromuscular Re- education,Soft Tissue Mobilization,Therapeutic Activities,Therapeutic Exercises Next Visit Focus/Plan Next Note Type Treatment Note Next Visit Plan Continue focus on opposing arm swing during gait, increasing activity tolerance, increasing gait /s an AD, and improving balance
--- NOTE | 2019-07-18 10:35 | PT.OTN ---
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 with return to pre-existing conscious level, subsequent encounter (07/18/19) History of falling (07/18/19) Physical Therapy Treatment Note PT-OP-A Visit Information Start: 09/28/17 15:21 Freq: Status: Active Protocol: Document 07/18/19 09:45 DCW (Rec: 07/18/19 10:35 DCW [id number]) Out-Patient Physical Therapy Visit Information Visit Information Visit Type Treatment Note Visit Start Time 09:45 Visit Stop Time 10:30 Total Visit Minutes 45 Visit Number 3/ Number of SERVICE ATTENDANT Visits 0 Evaluation Information Evaluation Date 07/27/19 PT-OP-B Current Condition Start: 09/28/17 15:21 Freq: Status: Active Protocol: Document 10/12/17 13:45 DCW (Rec: 10/12/17 18:33 DCW [id number]) Current Condition History of Current Condition Onset Date 02/05/17 History of Current Condition See Pt's initial evaluation in Therapy Source Current Functional Impairments (Reported) Functional Limitations- Mobility/Gait Transfers:W/C<->Mat Stand- pivot: Independent PT-OP-C Subjective Start: 09/28/17 15:21 Freq: Status: Active Protocol: Document 07/18/19 09:45 DCW (Rec: 07/18/19 10:35 DCW [id number]) OP-PT Subjective Patient Comments Patient Comments Pt feeling good today, says he is focused on standing up straighter today. PT-OP-D Balance Start: 10/12/17 18:11 Freq: Status: Active Protocol: Document 06/20/19 09:45 DCW (Rec: 06/20/19 10:30 DCW [id number]) OP-PT Balance Assessment Standing Balance Standing Balance Comments Double leg, Eyes open: 1'35 Donis Balance Assessment Evaluation Sitting to Standing Ability Independent w/Hands Unsupported Stance 30 seconds Sitting Unsupported, Feet on Floor Safely- 2 minutes Standing to Sitting Ability Assist, Control w/Hands Transfer Ability Safely, Hand Use Unsupported Stance- Eyes Closed Supervision, 10 seconds Unsupported Stance- Eyes Open Supervision to maintain Reaching Forward Standing Safely, 5 inches Pick- Up Object From Floor Supervision Look Behind Shoulder - Standing Turns Sideways Only Turning 360 Degrees Supervision/Verbal Cues Unsupported Stance, Alternating Feet on Assist to Prevent Fall Stair Unsupported Tandem Stance Small Step- 30 seconds Unilateral Leg Stance Lifts Leg/Unable to Hold Total Score Donis Total Score (out of 56 points) 33 Donis Impairment Rating 40 to 59% Impaired (Score 23- 33) Mejia Fall Scale Copyright Permission PT-OP-E Functional Tests Start: 10/12/17 18:11 Freq: Status: Active Protocol: Document 06/20/19 09:45 DCW (Rec: 06/20/19 10:30 DCW [id number]) Functional Tests 6 Minute Walk Test Distance 964' Device Used 4WW PT-OP-G Mobility & Gait Start: 12/23/18 10:02 Freq: Status: Active Protocol: Document 06/20/19 09:45 DCW (Rec: 06/20/19 10:30 DCW [id number]) OP Gait Assessment Gait Gait Assistance Required: Contact Guard Assist Distance (Feet) 360 Assistive Devices Assistive Device None,Gait Belt Gait Deviations General Gait Pattern Antalgic,Ataxic,Decreased Stride Length,Decreased Feet Clearance,Flexed Trunk,Lateral Trunk Lean PT-OP-M Strength Start: 10/12/17 18:11 Freq: Status: Active Protocol: Document 03/21/19 10:30 DCW (Rec: 03/21/19 11:12 DCW [id number]) Hip Strength Hip Manual Muscle Testing Right Flexion (L2) 5 Normal Abduction 5 Normal Adduction 5 Normal Left Flexion (L2) 4+ Good+ Abduction 5 Normal Adduction 5 Normal Knee Strength Knee Manual Muscle Testing Right Flexion (S2) 5 Normal Extension (L3) 5 Normal Left Flexion (S2) 4+ Good+ Extension (L3) 5 Normal Ankle/Foot Strength Ankle and Foot Manual Muscle Testing Right Dorsiflexion (L4) 2 Poor Plantarflexion (S1) 3+ Fair+ Left Dorsiflexion (L4) 4+ Good+ Plantarflexion (S1) 5 Normal PT-OP-Q Treatments Start: 09/28/17 15:21 Freq: Status: Active Protocol: Document 07/18/19 09:45 DCW (Rec: 07/18/19 10:35 DCW [id number]) Therapeutic Exercises Other Exercises Step-ups Other Exercise Name Step-ups with bilateral rail Equipment Used 6 step Reps/Minutes x20 each foot 1 Other Exercise Name Resisted Side-stepping Side bilateral Resistance Blue Equipment Used T-band Gait Training Gait Activity 2 Description Ambulation /s AD Device Used none Level of Assistance CGA Distance/Duration 360' x1 Treatment Focus Focus on increased step length , continous movement, arm swing Comments Pt ambulated around gym and avoided obstacles. Neuro Re-Education Treatment Balance Activities 3 Details Kicking over cones Comments Knocking over cones with specific foot while standing/ walking /s AD, Mod A x1 2 Details Cone/Ball transfers Comments During gait PT-OP-T Assessment and Plan Start: 09/28/17 15:21 Freq: Status: Active Protocol: Document 07/18/19 09:45 DCW (Rec: 07/18/19 10:35 DCW [id number]) Physical Therapy Assessment Impairments Impairments Activity Tolerance,Balance, Functional Activities, Functional Mobility,Gait,ROM, Strength Goals Eight Impairment Unassisted Gait Short Term Goal (STG) Pt to ambulate 300' SBA /s AD STG Duration Met [facility]ci Goal (LTG) Pt to ambulate 400' SBA /s AD LTG Duration 08/18/29 - Improvin' SBA /s AD Seven Impairment Donis Short Term Goal (STG) Pt to score 22/56 on Donis Balance scale STG Duration Met [facility]ci Goal (LTG) Pt to score 35/56 on Donis Balance scale LTG Duration 08/19/19 - Improvin/56 Six Impairment Static Standing Balance Short Term Goal (STG) Pt to stand independently for 2 minutes STG Duration Met Home Economist Goal (LTG) Pt to stand independently for 3 minutes LTG Duration 08/19/19 Five Impairment 6 MWT Home Economist Goal (LTG) Pt to ambulate 1000' without rest using 4WW during 6 MWT (06/20/19: 964') LTG Duration 08/19/19 Four Impairment Foot slap Short Term Goal (STG) Pt to regularly wear R AFO to limit foot drop and help normalize gait pattern STG Duration Met Three Impairment Transfers Short Term Goal (STG) Pt to transfer independently from mat<->w/c with no assistive devices STG Duration Met Two Impairment Ankle weakness Fci Goal (LTG) Pt to display 2/5 MMT in R DF, 4/5 MMT in R PF, and 4+/5 MMT in all other bilateral ankle movements LTG Duration 08/19/19 One Impairment Activity tolerance Fci Goal (LTG) Pt to tolerate activity up to 15 minutes without a break LTG Duration 08/19/19 Assessment Summary Assessment Pt did well with ambulation today, but was clearly more fatigued than last week. Pt struggled to continue activities, required multiple rest breaks. Physical Therapy Plan Frequency and Duration Frequency of Treatment 1x/Week Duration of Treatment 3 months Plan of Care Start Date 06/20/19 Plan of Care End Date 09/18/19 Therapeutic Interventions Therapeutic Interventions Aquatic Therapy,Balance Training,Gait Training,Home Exercise Program,Manual Therapy,Neuromuscular Re- education,Soft Tissue Mobilization,Therapeutic Activities,Therapeutic Exercises Next Visit Focus/Plan Next Note Type Treatment Note Next Visit Plan Continue focus on opposing arm swing during gait, increasing activity tolerance, increasing gait /s an AD, and improving balance
--- NOTE | 2019-07-25 11:16 | PT.OTN ---
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 with return to pre-existing conscious level, subsequent encounter (07/25/19) History of falling (07/25/19) Physical Therapy Treatment Note PT-OP-A Visit Information Start: 09/28/17 15:21 Freq: Status: Active Protocol: Document 07/25/19 09:45 DCW (Rec: 07/25/19 11:16 DCW [id number]) Out-Patient Physical Therapy Visit Information Visit Information Visit Type Treatment Note Visit Start Time 09:45 Visit Stop Time 10:30 Total Visit Minutes 45 Visit Number 4/ Number of INTERACTIVE MEDIA PROJECT MANAGER Visits 0 Evaluation Information Evaluation Date 07/27/19 PT-OP-B Current Condition Start: 09/28/17 15:21 Freq: Status: Active Protocol: Document 10/12/17 13:45 DCW (Rec: 10/12/17 18:33 DCW [id number]) Current Condition History of Current Condition Onset Date 02/05/17 History of Current Condition See Pt's initial evaluation in Therapy Source Current Functional Impairments (Reported) Functional Limitations- Mobility/Gait Transfers:W/C<->Mat Stand- pivot: Independent PT-OP-C Subjective Start: 09/28/17 15:21 Freq: Status: Active Protocol: Document 07/25/19 09:45 DCW (Rec: 07/25/19 11:16 DCW [id number]) OP-PT Subjective Patient Comments Patient Comments Pt reports that he had an jammer hooker today with a Dermatology appt today in [place] at 8 AM. PT-OP-D Balance Start: 10/12/17 18:11 Freq: Status: Active Protocol: Document 06/20/19 09:45 DCW (Rec: 06/20/19 10:30 DCW [id number]) OP-PT Balance Assessment Standing Balance Standing Balance Comments Double leg, Eyes open: 1'35 Donis Balance Assessment Evaluation Sitting to Standing Ability Independent w/Hands Unsupported Stance 30 seconds Sitting Unsupported, Feet on Floor Safely- 2 minutes Standing to Sitting Ability Assist, Control w/Hands Transfer Ability Safely, Hand Use Unsupported Stance- Eyes Closed Supervision, 10 seconds Unsupported Stance- Eyes Open Supervision to maintain Reaching Forward Standing Safely, 5 inches Pick- Up Object From Floor Supervision Look Behind Shoulder - Standing Turns Sideways Only Turning 360 Degrees Supervision/Verbal Cues Unsupported Stance, Alternating Feet on Assist to Prevent Fall Stair Unsupported Tandem Stance Small Step- 30 seconds Unilateral Leg Stance Lifts Leg/Unable to Hold Total Score Donis Total Score (out of 56 points) 33 Donis Impairment Rating 40 to 59% Impaired (Score 23- 33) Mejia Fall Scale Copyright Permission PT-OP-E Functional Tests Start: 10/12/17 18:11 Freq: Status: Active Protocol: Document 06/20/19 09:45 DCW (Rec: 06/20/19 10:30 DCW [id number]) Functional Tests 6 Minute Walk Test Distance 964' Device Used 4WW PT-OP-G Mobility & Gait Start: 12/23/18 10:02 Freq: Status: Active Protocol: Document 06/20/19 09:45 DCW (Rec: 06/20/19 10:30 DCW [id number]) OP Gait Assessment Gait Gait Assistance Required: Contact Guard Assist Distance (Feet) 360 Assistive Devices Assistive Device None,Gait Belt Gait Deviations General Gait Pattern Antalgic,Ataxic,Decreased Stride Length,Decreased Feet Clearance,Flexed Trunk,Lateral Trunk Lean PT-OP-M Strength Start: 10/12/17 18:11 Freq: Status: Active Protocol: Document 03/21/19 10:30 DCW (Rec: 03/21/19 11:12 DCW [id number]) Hip Strength Hip Manual Muscle Testing Right Flexion (L2) 5 Normal Abduction 5 Normal Adduction 5 Normal Left Flexion (L2) 4+ Good+ Abduction 5 Normal Adduction 5 Normal Knee Strength Knee Manual Muscle Testing Right Flexion (S2) 5 Normal Extension (L3) 5 Normal Left Flexion (S2) 4+ Good+ Extension (L3) 5 Normal Ankle/Foot Strength Ankle and Foot Manual Muscle Testing Right Dorsiflexion (L4) 2 Poor Plantarflexion (S1) 3+ Fair+ Left Dorsiflexion (L4) 4+ Good+ Plantarflexion (S1) 5 Normal PT-OP-Q Treatments Start: 09/28/17 15:21 Freq: Status: Active Protocol: Document 07/25/19 09:45 DCW (Rec: 07/25/19 11:16 DCW [id number]) Gym Equipment Shuttle Recovery Unilateral Squats Resistance 100# Shuttle Recovery Platform Stable Reps/Time x20 each Bilateral Squats Resistance 162# Shuttle Recovery Platform Stable Reps/Time x30 Therapeutic Exercises Other Exercises Step-ups Other Exercise Name Step-ups with bilateral rail Equipment Used 6 step Reps/Minutes x20 each foot Gait Training Gait Activity 2 Description Ambulation /s AD Device Used none Level of Assistance CGA Distance/Duration 370' x1 Treatment Focus Focus on increased step length , continous movement, arm swing Comments Pt ambulated around gym and avoided obstacles. Neuro Re-Education Treatment Balance Activities 3 Details Kicking over cones Comments Knocking over cones with specific foot while standing/ walking /s AD, Mod A x1 2 Details Cone/Ball transfers Comments During gait PT-OP-T Assessment and Plan Start: 09/28/17 15:21 Freq: Status: Active Protocol: Document 07/25/19 09:45 DCW (Rec: 07/25/19 11:16 [facility] [id number]) Physical Therapy Assessment Impairments Impairments Activity Tolerance,Balance, Functional Activities, Functional Mobility,Gait,ROM, Strength Goals Eight Impairment Unassisted Gait Short Term Goal (STG) Pt to ambulate 300' SBA /s AD STG Duration Met Penitentiary Goal (LTG) Pt to ambulate 400' SBA /s AD LTG Duration 08/18/29 - Improvin' SBA /s AD Seven Impairment Donis Short Term Goal (STG) Pt to score 22/56 on Donis Balance scale STG Duration Met [facility]it[facility]iary Goal (LTG) Pt to score 35/56 on Donis Balance scale LTG Duration 08/19/19 - Improvin/56 Six Impairment Static Standing Balance Short Term Goal (STG) Pt to stand independently for 2 minutes STG Duration Met English Teacher Goal (LTG) Pt to stand independently for 3 minutes LTG Duration 08/19/19 Five Impairment 6 MWT English Teacher Goal (LTG) Pt to ambulate 1000' without rest using 4WW during 6 MWT (06/20/19: 964') LTG Duration 08/19/19 Four Impairment Foot slap Short Term Goal (STG) Pt to regularly wear R AFO to limit foot drop and help normalize gait pattern STG Duration Met Three Impairment Transfers Short Term Goal (STG) Pt to transfer independently from mat<->w/c with no assistive devices STG Duration Met Two Impairment Ankle weakness English Teacher Goal (LTG) Pt to display 2/5 MMT in R DF, 4/5 MMT in R PF, and 4+/5 MMT in all other bilateral ankle movements LTG Duration 08/19/19 One Impairment Activity tolerance English Teacher Goal (LTG) Pt to tolerate activity up to 15 minutes without a break LTG Duration 08/19/19 Assessment Summary Assessment Pt had some initial confusion today, reporting that he didn't remember doing certain exercises, but then was able to compare his quality today with previous attempts. Physical Therapy Plan Frequency and Duration Frequency of Treatment 1x/Week Duration of Treatment 3 months Plan of Care Start Date 06/20/19 Plan of Care End Date 09/18/19 Therapeutic Interventions Therapeutic Interventions Aquatic Therapy,Balance Training,Gait Training,Home Exercise Program,Manual Therapy,Neuromuscular Re- education,Soft Tissue Mobilization,Therapeutic Activities,Therapeutic Exercises Next Visit Focus/Plan Next Note Type Treatment Note Next Visit Plan Continue focus on opposing arm swing during gait, increasing activity tolerance, increasing gait /s an AD, and improving balance
--- NOTE | 2019-08-04 11:10 | PT.OTN ---
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 with return to pre-existing conscious level, subsequent encounter (08/04/19) History of falling (08/04/19) Physical Therapy Treatment Note PT-OP-A Visit Information Start: 09/28/17 15:21 Freq: Status: Active Protocol: Document 08/04/19 09:45 DCW (Rec: 08/04/19 11:09 DCW [id number]) Out-Patient Physical Therapy Visit Information Visit Information Visit Type Treatment Note Visit Start Time 09:45 Visit Stop Time 10:30 Total Visit Minutes 45 Visit Number 5/ Number of PHYSICAL METEOROLOGIST Visits 0 Evaluation Information Evaluation Date 07/27/17 PT-OP-B Current Condition Start: 09/28/17 15:21 Freq: Status: Active Protocol: Document 10/12/17 13:45 DCW (Rec: 10/12/17 18:33 DCW [id number]) Current Condition History of Current Condition Onset Date 02/05/17 History of Current Condition See Pt's initial evaluation in Therapy Source Current Functional Impairments (Reported) Functional Limitations- Mobility/Gait Transfers:W/C<->Mat Stand- pivot: Independent PT-OP-C Subjective Start: 09/28/17 15:21 Freq: Status: Active Protocol: Document 08/04/19 09:45 DCW (Rec: 08/04/19 11:09 DCW [id number]) OP-PT Subjective Patient Comments Patient Comments I had a pretty bad morning, but I'll wait until I see how I do today to say anything about it. Pt later revealed that he was very stiff this moring and had increased difficulty getting out of his bed. PT-OP-D Balance Start: 10/12/17 18:11 Freq: Status: Active Protocol: Document 06/20/19 09:45 DCW (Rec: 06/20/19 10:30 DCW [id number]) OP-PT Balance Assessment Standing Balance Standing Balance Comments Double leg, Eyes open: 1'35 Donis Balance Assessment Evaluation Sitting to Standing Ability Independent w/Hands Unsupported Stance 30 seconds Sitting Unsupported, Feet on Floor Safely- 2 minutes Standing to Sitting Ability Assist, Control w/Hands Transfer Ability Safely, Hand Use Unsupported Stance- Eyes Closed Supervision, 10 seconds Unsupported Stance- Eyes Open Supervision to maintain Reaching Forward Standing Safely, 5 inches Pick- Up Object From Floor Supervision Look Behind Shoulder - Standing Turns Sideways Only Turning 360 Degrees Supervision/Verbal Cues Unsupported Stance, Alternating Feet on Assist to Prevent Fall Stair Unsupported Tandem Stance Small Step- 30 seconds Unilateral Leg Stance Lifts Leg/Unable to Hold Total Score Donis Total Score (out of 56 points) 33 Donis Impairment Rating 40 to 59% Impaired (Score 23- 33) Mejia Fall Scale Copyright Permission PT-OP-E Functional Tests Start: 10/12/17 18:11 Freq: Status: Active Protocol: Document 06/20/19 09:45 DCW (Rec: 06/20/19 10:30 DCW [id number]) Functional Tests 6 Minute Walk Test Distance 964' Device Used 4WW PT-OP-G Mobility & Gait Start: 12/23/18 10:02 Freq: Status: Active Protocol: Document 06/20/19 09:45 DCW (Rec: 06/20/19 10:30 DCW [id number]) OP Gait Assessment Gait Gait Assistance Required: Contact Guard Assist Distance (Feet) 360 Assistive Devices Assistive Device None,Gait Belt Gait Deviations General Gait Pattern Antalgic,Ataxic,Decreased Stride Length,Decreased Feet Clearance,Flexed Trunk,Lateral Trunk Lean PT-OP-M Strength Start: 10/12/17 18:11 Freq: Status: Active Protocol: Document 03/21/19 10:30 DCW (Rec: 03/21/19 11:12 DCW [id number]) Hip Strength Hip Manual Muscle Testing Right Flexion (L2) 5 Normal Abduction 5 Normal Adduction 5 Normal Left Flexion (L2) 4+ Good+ Abduction 5 Normal Adduction 5 Normal Knee Strength Knee Manual Muscle Testing Right Flexion (S2) 5 Normal Extension (L3) 5 Normal Left Flexion (S2) 4+ Good+ Extension (L3) 5 Normal Ankle/Foot Strength Ankle and Foot Manual Muscle Testing Right Dorsiflexion (L4) 2 Poor Plantarflexion (S1) 3+ Fair+ Left Dorsiflexion (L4) 4+ Good+ Plantarflexion (S1) 5 Normal PT-OP-Q Treatments Start: 09/28/17 15:21 Freq: Status: Active Protocol: Document 08/04/19 09:45 DCW (Rec: 08/04/19 11:09 DCW [id number]) Gym Equipment Shuttle Recovery Bilateral Heel Raises Resistance 137# Reps/Time x60 Unilateral Squats Resistance 100# Shuttle Recovery Platform Stable Reps/Time x20 each Bilateral Squats Details weight lowered to prevent pt sliding backward on sled Resistance 150# Shuttle Recovery Platform Stable Reps/Time x30 Gait Training Gait Activity 2 Description Ambulation /s AD Device Used none Level of Assistance CGA Distance/Duration 360' x1 Treatment Focus Focus on increased step length , continous movement, arm swing Comments Pt ambulated around gym and avoided obstacles. Neuro Re-Education Treatment Balance Activities 2 Details Cone/Ball transfers Comments During gait PT-OP-T Assessment and Plan Start: 09/28/17 15:21 Freq: Status: Active Protocol: Document 08/04/19 09:45 DCW (Rec: 08/04/19 11:09 DCW [id number]) Physical Therapy Assessment Impairments Impairments Activity Tolerance,Balance, Functional Activities, Functional Mobility,Gait,ROM, Strength Goals Eight Impairment Unassisted Gait Short Term Goal (STG) Pt to ambulate 300' SBA /s AD STG Duration Met Half-Way Goal (LTG) Pt to ambulate 400' SBA /s AD LTG Duration 08/18/29 - Improvin' SBA /s AD Seven Impairment Donis Short Term Goal (STG) Pt to score 22/56 on Donis Balance scale STG Duration Met Postdoctoral Fellow Goal (LTG) Pt to score 35/56 on Donis Balance scale LTG Duration 08/19/19 - Improvin/56 Six Impairment Static Standing Balance Short Term Goal (STG) Pt to stand independently for 2 minutes STG Duration Met Half-Way Goal (LTG) Pt to stand independently for 3 minutes LTG Duration 08/19/19 Five Impairment 6 MWT Half-Way Goal (LTG) Pt to ambulate 1000' without rest using 4WW during 6 MWT (06/20/19: 964') LTG Duration 08/19/19 Four Impairment Foot slap Short Term Goal (STG) Pt to regularly wear R AFO to limit foot drop and help normalize gait pattern STG Duration Met Three Impairment Transfers Short Term Goal (STG) Pt to transfer independently from mat<->w/c with no assistive devices STG Duration Met Two Impairment Ankle weakness Half-Way Goal (LTG) Pt to display 2/5 MMT in R DF, 4/5 MMT in R PF, and 4+/5 MMT in all other bilateral ankle movements LTG Duration 08/19/19 One Impairment Activity tolerance Postdoctoral Fellow Goal (LTG) Pt to tolerate activity up to 15 minutes without a break LTG Duration 08/19/19 Assessment Summary Assessment Pt had good quality walking today initially, but then fatigued rather quickly and required longer than normal rest breaks. Physical Therapy Plan Frequency and Duration Frequency of Treatment 1x/Week Duration of Treatment 3 months Plan of Care Start Date 06/20/19 Plan of Care End Date 09/18/19 Therapeutic Interventions Therapeutic Interventions Aquatic Therapy,Balance Training,Gait Training,Home Exercise Program,Manual Therapy,Neuromuscular Re- education,Soft Tissue Mobilization,Therapeutic Activities,Therapeutic Exercises Next Visit Focus/Plan Next Note Type Treatment Note Next Visit Plan Continue focus on opposing arm swing during gait, increasing activity tolerance, increasing gait /s an AD, and improving balance
--- NOTE | 2019-11-21 11:17 | PT.OTN ---
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 greater than 24 hours with return to pre-existing conscious level, subsequent encounter (11/21/19) History of falling (11/21/19) Physical Therapy Treatment Note PT-OP-A Visit Information Start: 09/28/17 15:21 Freq: Status: Active Protocol: Document 11/21/19 09:45 DCW (Rec: 11/21/19 10:29 DCW [id number]) Out-Patient Physical Therapy Visit Information Visit Information Visit Type Progress Note Visit Start Time 09:45 Visit Stop Time 10:30 Total Visit Minutes 45 Visit Number 0/10 Number of COMMUNITY SERVICE COORDINATOR Visits 0 Evaluation Information Evaluation Date 07/27/17 PT-OP-B Current Condition Start: 09/28/17 15:21 Freq: Status: Active Protocol: Document 10/12/17 13:45 DCW (Rec: 10/12/17 18:33 DCW [id number]) Current Condition History of Current Condition Onset Date 02/05/17 History of Current Condition See Pt's initial evaluation in Therapy Source Current Functional Impairments (Reported) Functional Limitations- Mobility/Gait Transfers:W/C<->Mat Stand- pivot: Independent PT-OP-C Subjective Start: 09/28/17 15:21 Freq: Status: Active Protocol: Document 11/21/19 09:45 DCW (Rec: 11/21/19 10:29 DCW [id number]) OP-PT Subjective Patient Comments Patient Comments Pt reports he has been trying to keep up his activity level over the 3.5 months since his last appointment secondary to Covid-19 shutdown, however is aware that he feels weaker and has less endurance. PT-OP-D Balance Start: 10/12/17 18:11 Freq: Status: Active Protocol: Document 11/21/19 09:45 DCW (Rec: 11/21/19 10:19 DCW [id number]) OP-PT Balance Assessment Standing Balance Standing Balance Comments Double leg, Eyes open: 40 Donis Balance Assessment Evaluation Sitting to Standing Ability Independent w/Hands Unsupported Stance 30 seconds Sitting Unsupported, Feet on Floor Safely- 2 minutes Standing to Sitting Ability Assist, Control w/Hands Transfer Ability Supervision, Verbal Cues Unsupported Stance- Eyes Closed 3 seconds Unsupported Stance- Eyes Open Assist to attain, 15 secs Reaching Forward Standing Safely, 2 inches Pick- Up Object From Floor Supervision Look Behind Shoulder - Standing Supervision w/Turning Turning 360 Degrees Requires Assistance Unsupported Stance, Alternating Feet on 2 Steps w/Minimum Assist Stair Unsupported Tandem Stance Assist to Step-15 seconds Unilateral Leg Stance Lifts Leg/Unable to Hold Total Score Donis Total Score (out of 56 points) 26 Donis Impairment Rating 40 to 59% Impaired (Score 23- 33) Mejia Fall Scale Copyright Permission PT-OP-E Functional Tests Start: 10/12/17 18:11 Freq: Status: Active Protocol: Document 11/21/19 09:45 DCW (Rec: 11/21/19 10:19 DCW [id number]) Functional Tests 6 Minute Walk Test Distance 517' Device Used 4WW Comments 1 standing rest, stopped at 5: 11 PT-OP-G Mobility & Gait Start: 12/23/18 10:02 Freq: Status: Active Protocol: Document 11/21/19 09:45 DCW (Rec: 11/21/19 10:19 DCW [id number]) OP Gait Assessment Gait Gait Assistance Required: Contact Guard Assist Distance (Feet) 517 Assistive Devices Assistive Device Gait Belt,4 Wheeled Walker Gait Deviations General Gait Pattern Antalgic,Ataxic,Decreased Stride Length,Decreased Feet Clearance,Flexed Trunk,Lateral Trunk Lean PT-OP-M Strength Start: 10/12/17 18:11 Freq: Status: Active Protocol: Document 11/21/19 09:45 DCW (Rec: 11/21/19 10:19 DCW [id number]) Hip Strength Hip Manual Muscle Testing Right Flexion (L2) 5 Normal Abduction 4 Good Adduction 4 Good Left Flexion (L2) 4+ Good+ Abduction 4 Good Adduction 4 Good Knee Strength Knee Manual Muscle Testing Right Flexion (S2) 4 Good Extension (L3) 4 Good Left Flexion (S2) 4+ Good+ Extension (L3) 4 Good Ankle/Foot Strength Ankle and Foot Manual Muscle Testing Right Dorsiflexion (L4) 2 Poor Plantarflexion (S1) 3+ Fair+ Left Dorsiflexion (L4) 4+ Good+ Plantarflexion (S1) 4 Good PT-OP-Q Treatments Start: 09/28/17 15:21 Freq: Status: Active Protocol: Document 11/21/19 09:45 DCW (Rec: 11/21/19 10:29 DCW [id number]) Neuro Re-Education Treatment Other Activities 1 Details Testing Comments 6MWT, MMT, Donis Balance, Static standing PT-OP-T Assessment and Plan Start: 09/28/17 15:21 Freq: Status: Active Protocol: Document 11/21/19 09:45 DCW (Rec: 11/21/19 11:17 DCW [id number]) Physical Therapy Assessment Impairments Impairments Activity Tolerance,Balance, Functional Activities, Functional Mobility,Gait,ROM, Strength Goals Eight Impairment Unassisted Gait Short Term Goal (STG) Pt to ambulate 300' SBA /s AD STG Duration Met Fpc Goal (LTG) Pt to ambulate 400' SBA /s AD LTG Duration 01/21/20 Seven Impairment Donis Short Term Goal (STG) Pt to score 22/56 on Donis Balance scale STG Duration Met Public Health Outreach Worker Goal (LTG) Pt to score 35/56 on Donis Balance scale LTG Duration 01/21/20 Six Impairment Static Standing Balance Short Term Goal (STG) Pt to stand independently for 2 minutes STG Duration Met Public Health Outreach Worker Goal (LTG) Pt to stand independently for 3 minutes LTG Duration 01/21/20 Five Impairment 6 MWT Public Health Outreach Worker Goal (LTG) Pt to ambulate 1000' without rest using 4WW during 6 MWT (06/20/19: 964') LTG Duration 01/21/20 Four Impairment Foot slap Short Term Goal (STG) Pt to regularly wear R AFO to limit foot drop and help normalize gait pattern STG Duration Met Three Impairment Transfers Short Term Goal (STG) Pt to transfer independently from mat<->w/c with no assistive devices STG Duration Met Two Impairment Ankle weakness Public Health Outreach Worker Goal (LTG) Pt to display 2/5 MMT in R DF, 4/5 MMT in R PF, and 4+/5 MMT in all other bilateral ankle movements LTG Duration 01/21/20 One Impairment Activity tolerance Fpc Goal (LTG) Pt to tolerate activity up to 15 minutes without a break LTG Duration 01/21/20 Assessment Summary Assessment Pt declined in function in all tested areas since the Covid- 19 shutdown resulted in 3.5 months on no PT visits. Decline in Donis score, LE strength, activity tolerance, 6MWT distance, and static balance all noted. Pt should benefit from skilled therapy focusing on continued progression of activity tolerance, strength, gait training, and balance. Physical Therapy Plan Frequency and Duration Frequency of Treatment 1x/Week Duration of Treatment 3 months Plan of Care Start Date 11/21/19 Plan of Care End Date 02/19/20 Therapeutic Interventions Therapeutic Interventions Aquatic Therapy,Balance Training,Gait Training,Home Exercise Program,Manual Therapy,Neuromuscular Re- education,Soft Tissue Mobilization,Therapeutic Activities,Therapeutic Exercises Next Visit Focus/Plan Next Note Type Treatment Note Next Visit Plan Continue focus on opposing arm swing during gait, increasing activity tolerance, increasing gait /s an AD, and improving balance
--- NOTE | 2019-11-21 11:18 | PT.OPPOC ---
Physical, Occupational & Speech Therapy At [facility] 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 greater than 24 hours with return to pre-existing conscious level, subsequent encounter (11/21/19) History of falling (11/21/19) Visit Care Team Role Provider Type Elver Eubanks MD Attending Provider Physician Family Provider Primary Care Provider Specialty: Internal Medicine Address: [address] [place] [address], [facility] Email: [email or web address] Plan Of Care PT-OP-T Assessment and Plan Start: 09/28/17 15:21 Freq: Status: Active Protocol: Document 11/21/19 09:45 DCW (Rec: 11/21/19 11:17 DCW [id number]) Physical Therapy Assessment Impairments Impairments Activity Tolerance,Balance, Functional Activities, Functional Mobility,Gait,ROM, Strength Goals Eight Impairment Unassisted Gait Short Term Goal (STG) Pt to ambulate 300' SBA /s AD STG Duration Met Usp Goal (LTG) Pt to ambulate 400' SBA /s AD LTG Duration 01/21/20 Seven Impairment Donis Short Term Goal (STG) Pt to score 22/56 on Donis Balance scale STG Duration Met Rehab Director Goal (LTG) Pt to score 35/56 on Donis Balance scale LTG Duration 01/21/20 Six Impairment Static Standing Balance Short Term Goal (STG) Pt to stand independently for 2 minutes STG Duration Met Usp Goal (LTG) Pt to stand independently for 3 minutes LTG Duration 01/21/20 Five Impairment 6 MWT Rehab Director Goal (LTG) Pt to ambulate 1000' without rest using 4WW during 6 MWT (06/20/19: 964') LTG Duration 01/21/20 Four Impairment Foot slap Short Term Goal (STG) Pt to regularly wear R AFO to limit foot drop and help normalize gait pattern STG Duration Met Three Impairment Transfers Short Term Goal (STG) Pt to transfer independently from mat<->w/c with no assistive devices STG Duration Met Two Impairment Ankle weakness Rehab Director Goal (LTG) Pt to display 2/5 MMT in R DF, 4/5 MMT in R PF, and 4+/5 MMT in all other bilateral ankle movements LTG Duration 01/21/20 One Impairment Activity tolerance Rehab Director Goal (LTG) Pt to tolerate activity up to 15 minutes without a break LTG Duration 01/21/20 Assessment Summary Assessment Pt declined in function in all tested areas since the Covid- 19 shutdown resulted in 3.5 months on no PT visits. Decline in Donis score, LE strength, activity tolerance, 6MWT distance, and static balance all noted. Pt should benefit from skilled therapy focusing on continued progression of activity tolerance, strength, gait training, and balance. Physical Therapy Plan Frequency and Duration Frequency of Treatment 1x/Week Duration of Treatment 3 months Plan of Care Start Date 11/21/19 Plan of Care End Date 02/19/20 Therapeutic Interventions Therapeutic Interventions Aquatic Therapy,Balance Training,Gait Training,Home Exercise Program,Manual Therapy,Neuromuscular Re- education,Soft Tissue Mobilization,Therapeutic Activities,Therapeutic Exercises Next Visit Focus/Plan Next Note Type Treatment Note Next Visit Plan Continue focus on opposing arm swing during gait, increasing activity tolerance, increasing gait /s an AD, and improving balance Plan of Care Dates Plan of Care Start Date 11/21/19 Plan of Care End Date 02/19/20 Electronically Signed by: Jose Martin Freitas, PT 11/21/19 [id number] Please Sign and Return: I have reviewed this Plan of Care and certify that the skilled therapy services above are required to meet the patient?s needs. Physician Signature Date Printed Name and Credentials Clinical Instructor Signature Printed Name and Credentials
--- NOTE | 2019-11-28 10:32 | PT.OTN ---
Current Diagnoses Foot drop, right foot (11/28/19) Muscle weakness (generalized) (11/28/19) Unsteadiness on feet (11/28/19) Unspecified abnormalities of gait and mobility (11/28/19) Traumatic subdural hemorrhage with loss of consciousness greater than 24 hours with return to pre-existing conscious level, subsequent encounter (11/28/19) History of falling (11/28/19) Physical Therapy Treatment Note PT-OP-A Visit Information Start: 09/28/17 15:21 Freq: Status: Active Protocol: Document 11/28/19 09:45 DCW (Rec: 11/28/19 10:32 DCW [id number]) Out-Patient Physical Therapy Visit Information Visit Information Visit Type Treatment Note Visit Start Time 09:45 Visit Stop Time 10:30 Total Visit Minutes 45 Visit Number 06/09 Number of B2B APPOINTMENT SETTER Visits 0 Evaluation Information Evaluation Date 07/27/17 PT-OP-B Current Condition Start: 09/28/17 15:21 Freq: Status: Active Protocol: Document 10/12/17 13:45 DCW (Rec: 10/12/17 18:33 DCW [id number]) Current Condition History of Current Condition Onset Date 02/05/17 History of Current Condition See Pt's initial evaluation in Therapy Source Current Functional Impairments (Reported) Functional Limitations- Mobility/Gait Transfers:W/C<->Mat Stand- pivot: Independent PT-OP-C Subjective Start: 09/28/17 15:21 Freq: Status: Active Protocol: Document 11/28/19 09:45 DCW (Rec: 11/28/19 10:32 DCW [id number]) OP-PT Subjective Patient Comments Patient Comments Pt admits he feels like his legs have gotten a lot weaker after his long layoff from PT. PT-OP-D Balance Start: 10/12/17 18:11 Freq: Status: Active Protocol: Document 11/21/19 09:45 DCW (Rec: 11/21/19 10:19 DCW [id number]) OP-PT Balance Assessment Standing Balance Standing Balance Comments Double leg, Eyes open: 40 Donis Balance Assessment Evaluation Sitting to Standing Ability Independent w/Hands Unsupported Stance 30 seconds Sitting Unsupported, Feet on Floor Safely- 2 minutes Standing to Sitting Ability Assist, Control w/Hands Transfer Ability Supervision, Verbal Cues Unsupported Stance- Eyes Closed 3 seconds Unsupported Stance- Eyes Open Assist to attain, 15 secs Reaching Forward Standing Safely, 2 inches Pick- Up Object From Floor Supervision Look Behind Shoulder - Standing Supervision w/Turning Turning 360 Degrees Requires Assistance Unsupported Stance, Alternating Feet on 2 Steps w/Minimum Assist Stair Unsupported Tandem Stance Assist to Step-15 seconds Unilateral Leg Stance Lifts Leg/Unable to Hold Total Score Donis Total Score (out of 56 points) 26 Donis Impairment Rating 40 to 59% Impaired (Score 23- 33) Mejia Fall Scale Copyright Permission PT-OP-E Functional Tests Start: 10/12/17 18:11 Freq: Status: Active Protocol: Document 11/21/19 09:45 DCW (Rec: 11/21/19 10:19 DCW [id number]) Functional Tests 6 Minute Walk Test Distance 517' Device Used 4WW Comments 1 standing rest, stopped at 5: 11 PT-OP-G Mobility & Gait Start: 12/23/18 10:02 Freq: Status: Active Protocol: Document 11/21/19 09:45 DCW (Rec: 11/21/19 10:19 DCW [id number]) OP Gait Assessment Gait Gait Assistance Required: Contact Guard Assist Distance (Feet) 517 Assistive Devices Assistive Device Gait Belt,4 Wheeled Walker Gait Deviations General Gait Pattern Antalgic,Ataxic,Decreased Stride Length,Decreased Feet Clearance,Flexed Trunk,Lateral Trunk Lean PT-OP-M Strength Start: 10/12/17 18:11 Freq: Status: Active Protocol: Document 11/21/19 09:45 DCW (Rec: 11/21/19 10:19 DCW [id number]) Hip Strength Hip Manual Muscle Testing Right Flexion (L2) 5 Normal Abduction 4 Good Adduction 4 Good Left Flexion (L2) 4+ Good+ Abduction 4 Good Adduction 4 Good Knee Strength Knee Manual Muscle Testing Right Flexion (S2) 4 Good Extension (L3) 4 Good Left Flexion (S2) 4+ Good+ Extension (L3) 4 Good Ankle/Foot Strength Ankle and Foot Manual Muscle Testing Right Dorsiflexion (L4) 2 Poor Plantarflexion (S1) 3+ Fair+ Left Dorsiflexion (L4) 4+ Good+ Plantarflexion (S1) 4 Good PT-OP-Q Treatments Start: 09/28/17 15:21 Freq: Status: Active Protocol: Document 11/28/19 09:45 DCW (Rec: 11/28/19 10:32 DCW [id number]) Gym Equipment Shuttle Recovery Bilateral Heel Raises Resistance 100# Reps/Time x60 Unilateral Squats Resistance 75# Shuttle Recovery Platform Stable Reps/Time x20 each Bilateral Squats Resistance 150# Shuttle Recovery Platform Stable Reps/Time x30 Shuttle Balance 1 Details Blue Comments Wide WILIAN Gait Training Gait Activity 1 Description Amb /c 4WW Device Used 4WW Level of Assistance SBA Distance/Duration 510' Neuro Re-Education Treatment Balance Activities 2 Details Cone/Ball transfers Equipment in // bars PT-OP-T Assessment and Plan Start: 09/28/17 15:21 Freq: Status: Active Protocol: Document 11/28/19 09:45 DCW (Rec: 11/28/19 10:32 DCW [id number]) Physical Therapy Assessment Impairments Impairments Activity Tolerance,Balance, Functional Activities, Functional Mobility,Gait,ROM, Strength Goals Eight Impairment Unassisted Gait Short Term Goal (STG) Pt to ambulate 300' SBA /s AD STG Duration Met Transport Conductor Goal (LTG) Pt to ambulate 400' SBA /s AD LTG Duration 01/21/20 Seven Impairment Donis Short Term Goal (STG) Pt to score 22/56 on Donis Balance scale STG Duration Met Transport Conductor Goal (LTG) Pt to score 35/56 on Donis Balance scale LTG Duration 01/21/20 Six Impairment Static Standing Balance Short Term Goal (STG) Pt to stand independently for 2 minutes STG Duration Met Transport Conductor Goal (LTG) Pt to stand independently for 3 minutes LTG Duration 01/21/20 Five Impairment 6 MWT Skilled Nursing Goal (LTG) Pt to ambulate 1000' without rest using 4WW during 6 MWT (06/20/19: 964') LTG Duration 01/21/20 Four Impairment Foot slap Short Term Goal (STG) Pt to regularly wear R AFO to limit foot drop and help normalize gait pattern STG Duration Met Three Impairment Transfers Short Term Goal (STG) Pt to transfer independently from mat<->w/c with no assistive devices STG Duration Met Two Impairment Ankle weakness Transport Conductor Goal (LTG) Pt to display 2/5 MMT in R DF, 4/5 MMT in R PF, and 4+/5 MMT in all other bilateral ankle movements LTG Duration 01/21/20 One Impairment Activity tolerance Transport Conductor Goal (LTG) Pt to tolerate activity up to 15 minutes without a break LTG Duration 01/21/20 Assessment Summary Assessment Pt did better today, realized he was not wearing his AFO last week, able to walk with improved quality of gait today , however still fatigued quickly, required decrease in resistance with leg press. Physical Therapy Plan Frequency and Duration Frequency of Treatment 1x/Week Duration of Treatment 3 months Plan of Care Start Date 11/21/19 Plan of Care End Date 02/19/20 Therapeutic Interventions Therapeutic Interventions Aquatic Therapy,Balance Training,Gait Training,Home Exercise Program,Manual Therapy,Neuromuscular Re- education,Soft Tissue Mobilization,Therapeutic Activities,Therapeutic Exercises Next Visit Focus/Plan Next Note Type Treatment Note Next Visit Plan Continue focus on opposing arm swing during gait, increasing activity tolerance, increasing gait /s an AD, and improving balance
--- NOTE | 2019-12-05 10:29 | PT.OTN ---
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 with return to pre-existing conscious level, subsequent encounter (12/05/19) History of falling (12/05/19) Physical Therapy Treatment Note PT-OP-A Visit Information Start: 09/28/17 15:21 Freq: Status: Active Protocol: Document 12/05/19 09:45 DCW (Rec: 12/05/19 10:29 DCW [id number]) Out-Patient Physical Therapy Visit Information Visit Information Visit Type Treatment Note Visit Start Time 09:45 Visit Stop Time 10:30 Total Visit Minutes 45 Visit Number 07/10 Number of CHAIR FRAME BUILDER Visits 0 Evaluation Information Evaluation Date 07/27/17 PT-OP-B Current Condition Start: 09/28/17 15:21 Freq: Status: Active Protocol: Document 10/12/17 13:45 DCW (Rec: 10/12/17 18:33 DCW [id number]) Current Condition History of Current Condition Onset Date 02/05/17 History of Current Condition See Pt's initial evaluation in Therapy Source Current Functional Impairments (Reported) Functional Limitations- Mobility/Gait Transfers:W/C<->Mat Stand- pivot: Independent PT-OP-C Subjective Start: 09/28/17 15:21 Freq: Status: Active Protocol: Document 12/05/19 09:45 DCW (Rec: 12/05/19 10:29 DCW [id number]) OP-PT Subjective Patient Comments Patient Comments Pt reports he is doing a little better today. PT-OP-D Balance Start: 10/12/17 18:11 Freq: Status: Active Protocol: Document 11/21/19 09:45 DCW (Rec: 11/21/19 10:19 DCW [id number]) OP-PT Balance Assessment Standing Balance Standing Balance Comments Double leg, Eyes open: 40 Donis Balance Assessment Evaluation Sitting to Standing Ability Independent w/Hands Unsupported Stance 30 seconds Sitting Unsupported, Feet on Floor Safely- 2 minutes Standing to Sitting Ability Assist, Control w/Hands Transfer Ability Supervision, Verbal Cues Unsupported Stance- Eyes Closed 3 seconds Unsupported Stance- Eyes Open Assist to attain, 15 secs Reaching Forward Standing Safely, 2 inches Pick- Up Object From Floor Supervision Look Behind Shoulder - Standing Supervision w/Turning Turning 360 Degrees Requires Assistance Unsupported Stance, Alternating Feet on 2 Steps w/Minimum Assist Stair Unsupported Tandem Stance Assist to Step-15 seconds Unilateral Leg Stance Lifts Leg/Unable to Hold Total Score Donis Total Score (out of 56 points) 26 Donis Impairment Rating 40 to 59% Impaired (Score 23- 33) Mejia Fall Scale Copyright Permission PT-OP-E Functional Tests Start: 10/12/17 18:11 Freq: Status: Active Protocol: Document 11/21/19 09:45 DCW (Rec: 11/21/19 10:19 DCW [id number]) Functional Tests 6 Minute Walk Test Distance 517' Device Used 4WW Comments 1 standing rest, stopped at 5: 11 PT-OP-G Mobility & Gait Start: 12/23/18 10:02 Freq: Status: Active Protocol: Document 11/21/19 09:45 DCW (Rec: 11/21/19 10:19 DCW [id number]) OP Gait Assessment Gait Gait Assistance Required: Contact Guard Assist Distance (Feet) 517 Assistive Devices Assistive Device Gait Belt,4 Wheeled Walker Gait Deviations General Gait Pattern Antalgic,Ataxic,Decreased Stride Length,Decreased Feet Clearance,Flexed Trunk,Lateral Trunk Lean PT-OP-M Strength Start: 10/12/17 18:11 Freq: Status: Active Protocol: Document 11/21/19 09:45 DCW (Rec: 11/21/19 10:19 DCW [id number]) Hip Strength Hip Manual Muscle Testing Right Flexion (L2) 5 Normal Abduction 4 Good Adduction 4 Good Left Flexion (L2) 4+ Good+ Abduction 4 Good Adduction 4 Good Knee Strength Knee Manual Muscle Testing Right Flexion (S2) 4 Good Extension (L3) 4 Good Left Flexion (S2) 4+ Good+ Extension (L3) 4 Good Ankle/Foot Strength Ankle and Foot Manual Muscle Testing Right Dorsiflexion (L4) 2 Poor Plantarflexion (S1) 3+ Fair+ Left Dorsiflexion (L4) 4+ Good+ Plantarflexion (S1) 4 Good PT-OP-Q Treatments Start: 09/28/17 15:21 Freq: Status: Active Protocol: Document 12/05/19 09:45 DCW (Rec: 12/05/19 10:29 DCW [id number]) Gym Equipment Shuttle Recovery Bilateral Heel Raises Resistance 100# Reps/Time x60 Unilateral Squats Resistance 87# Shuttle Recovery Platform Stable Reps/Time x20 each Bilateral Squats Resistance 150# Shuttle Recovery Platform Stable Reps/Time x30 Shuttle Balance 1 Details Blue Comments Wide WILIAN Therapeutic Exercises Other Exercises 1 Other Exercise Name Resisted Side-stepping Side bilateral Resistance Green Equipment Used T-band Gait Training Gait Activity 1 Description Amb /c 4WW Device Used 4WW Level of Assistance SBA Distance/Duration 750' PT-OP-T Assessment and Plan Start: 09/28/17 15:21 Freq: Status: Active Protocol: Document 12/05/19 09:45 DCW (Rec: 12/05/19 10:29 DCW [id number]) Physical Therapy Assessment Impairments Impairments Activity Tolerance,Balance, Functional Activities, Functional Mobility,Gait,ROM, Strength Goals Eight Impairment Unassisted Gait Short Term Goal (STG) Pt to ambulate 300' SBA /s AD STG Duration Met Floor Renovator Goal (LTG) Pt to ambulate 400' SBA /s AD LTG Duration 01/21/20 Seven Impairment Donis Short Term Goal (STG) Pt to score 22/56 on Donis Balance scale STG Duration Met Floor Renovator Goal (LTG) Pt to score 35/56 on Donis Balance scale LTG Duration 01/21/20 Six Impairment Static Standing Balance Short Term Goal (STG) Pt to stand independently for 2 minutes STG Duration Met [facility] Goal (LTG) Pt to stand independently for 3 minutes LTG Duration 01/21/20 Five Impairment 6 MWT [facility] Goal (LTG) Pt to ambulate 1000' without rest using 4WW during 6 MWT (06/20/19: 964') LTG Duration 01/21/20 Four Impairment Foot slap Short Term Goal (STG) Pt to regularly wear R AFO to limit foot drop and help normalize gait pattern STG Duration Met Three Impairment Transfers Short Term Goal (STG) Pt to transfer independently from mat<->w/c with no assistive devices STG Duration Met Two Impairment Ankle weakness Floor Renovator Goal (LTG) Pt to display 2/5 MMT in R DF, 4/5 MMT in R PF, and 4+/5 MMT in all other bilateral ankle movements LTG Duration 01/21/20 One Impairment Activity tolerance [facility] Goal (LTG) Pt to tolerate activity up to 15 minutes without a break LTG Duration 01/21/20 Assessment Summary Assessment Pt still fatiguing quickly following long layoff, needs increased number of rest breaks. Physical Therapy Plan Frequency and Duration Frequency of Treatment 1x/Week Duration of Treatment 3 months Plan of Care Start Date 11/21/19 Plan of Care End Date 02/19/20 Therapeutic Interventions Therapeutic Interventions Aquatic Therapy,Balance Training,Gait Training,Home Exercise Program,Manual Therapy,Neuromuscular Re- education,Soft Tissue Mobilization,Therapeutic Activities,Therapeutic Exercises Next Visit Focus/Plan Next Note Type Treatment Note Next Visit Plan Continue focus on opposing arm swing during gait, increasing activity tolerance, increasing gait /s an AD, and improving balance
--- NOTE | 2019-12-12 10:31 | PT.OTN ---
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 with return to pre-existing conscious level, subsequent encounter (12/12/19) History of falling (12/12/19) Physical Therapy Treatment Note PT-OP-A Visit Information Start: 09/28/17 15:21 Freq: Status: Active Protocol: Document 12/12/19 09:45 DCW (Rec: 12/12/19 10:30 DCW [id number]) Out-Patient Physical Therapy Visit Information Visit Information Visit Type Treatment Note Visit Start Time 09:45 Visit Stop Time 10:30 Total Visit Minutes 45 Visit Number 3/10 Number of DOG BREEDER Visits 0 Evaluation Information Evaluation Date 07/27/17 PT-OP-B Current Condition Start: 09/28/17 15:21 Freq: Status: Active Protocol: Document 10/12/17 13:45 DCW (Rec: 10/12/17 18:33 DCW [id number]) Current Condition History of Current Condition Onset Date 02/05/17 History of Current Condition See Pt's initial evaluation in Therapy Source Current Functional Impairments (Reported) Functional Limitations- Mobility/Gait Transfers:W/C<->Mat Stand- pivot: Independent PT-OP-C Subjective Start: 09/28/17 15:21 Freq: Status: Active Protocol: Document 12/12/19 09:45 DCW (Rec: 12/12/19 10:31 DCW [id number]) OP-PT Subjective Patient Comments Patient Comments Pt reports he is doing pretty well, but wishes he was able to bounce back faster after the long layoff. PT-OP-D Balance Start: 10/12/17 18:11 Freq: Status: Active Protocol: Document 11/21/19 09:45 DCW (Rec: 11/21/19 10:19 DCW [id number]) OP-PT Balance Assessment Standing Balance Standing Balance Comments Double leg, Eyes open: 40 Donis Balance Assessment Evaluation Sitting to Standing Ability Independent w/Hands Unsupported Stance 30 seconds Sitting Unsupported, Feet on Floor Safely- 2 minutes Standing to Sitting Ability Assist, Control w/Hands Transfer Ability Supervision, Verbal Cues Unsupported Stance- Eyes Closed 3 seconds Unsupported Stance- Eyes Open Assist to attain, 15 secs Reaching Forward Standing Safely, 2 inches Pick- Up Object From Floor Supervision Look Behind Shoulder - Standing Supervision w/Turning Turning 360 Degrees Requires Assistance Unsupported Stance, Alternating Feet on 2 Steps w/Minimum Assist Stair Unsupported Tandem Stance Assist to Step-15 seconds Unilateral Leg Stance Lifts Leg/Unable to Hold Total Score Donis Total Score (out of 56 points) 26 Donis Impairment Rating 40 to 59% Impaired (Score 23- 33) Mejia Fall Scale Copyright Permission PT-OP-E Functional Tests Start: 10/12/17 18:11 Freq: Status: Active Protocol: Document 11/21/19 09:45 DCW (Rec: 11/21/19 10:19 DCW [id number]) Functional Tests 6 Minute Walk Test Distance 517' Device Used 4WW Comments 1 standing rest, stopped at 5: 11 PT-OP-G Mobility & Gait Start: 12/23/18 10:02 Freq: Status: Active Protocol: Document 11/21/19 09:45 DCW (Rec: 11/21/19 10:19 DCW [id number]) OP Gait Assessment Gait Gait Assistance Required: Contact Guard Assist Distance (Feet) 517 Assistive Devices Assistive Device Gait Belt,4 Wheeled Walker Gait Deviations General Gait Pattern Antalgic,Ataxic,Decreased Stride Length,Decreased Feet Clearance,Flexed Trunk,Lateral Trunk Lean PT-OP-M Strength Start: 10/12/17 18:11 Freq: Status: Active Protocol: Document 11/21/19 09:45 DCW (Rec: 11/21/19 10:19 DCW [id number]) Hip Strength Hip Manual Muscle Testing Right Flexion (L2) 5 Normal Abduction 4 Good Adduction 4 Good Left Flexion (L2) 4+ Good+ Abduction 4 Good Adduction 4 Good Knee Strength Knee Manual Muscle Testing Right Flexion (S2) 4 Good Extension (L3) 4 Good Left Flexion (S2) 4+ Good+ Extension (L3) 4 Good Ankle/Foot Strength Ankle and Foot Manual Muscle Testing Right Dorsiflexion (L4) 2 Poor Plantarflexion (S1) 3+ Fair+ Left Dorsiflexion (L4) 4+ Good+ Plantarflexion (S1) 4 Good PT-OP-Q Treatments Start: 09/28/17 15:21 Freq: Status: Active Protocol: Document 12/12/19 09:45 DCW (Rec: 12/12/19 10:30 DCW [id number]) Gym Equipment Shuttle Recovery Bilateral Heel Raises Resistance 100# Reps/Time x60 Unilateral Squats Resistance 87# Shuttle Recovery Platform Stable Reps/Time x20 each Bilateral Squats Resistance 150# Shuttle Recovery Platform Stable Reps/Time x30 Therapeutic Exercises Other Exercises 1 Other Exercise Name Resisted Side-stepping Side bilateral Resistance Green Equipment Used T-band Gait Training Gait Activity 2 Description Staggered stance arm swing Device Used PVC Treatment Focus Arm swing 1 Description Amb /c 4WW Device Used 4WW Level of Assistance SBA Distance/Duration 720' Treatment Focus Increased activity tolerance PT-OP-T Assessment and Plan Start: 09/28/17 15:21 Freq: Status: Active Protocol: Document 12/12/19 09:45 DCW (Rec: 12/12/19 10:30 DCW [id number]) Physical Therapy Assessment Impairments Impairments Activity Tolerance,Balance, Functional Activities, Functional Mobility,Gait,ROM, Strength Goals Eight Impairment Unassisted Gait Short Term Goal (STG) Pt to ambulate 300' SBA /s AD STG Duration Met Peripheral Edp Equipment Operator Goal (LTG) Pt to ambulate 400' SBA /s AD LTG Duration 01/21/20 Seven Impairment Donis Short Term Goal (STG) Pt to score 22/56 on Donis Balance scale STG Duration Met Peripheral Edp Equipment Operator Goal (LTG) Pt to score 35/56 on Donis Balance scale LTG Duration 01/21/20 Six Impairment Static Standing Balance Short Term Goal (STG) Pt to stand independently for 2 minutes STG Duration Met [facility] Goal (LTG) Pt to stand independently for 3 minutes LTG Duration 01/21/20 Five Impairment 6 MWT Peripheral Edp Equipment Operator Goal (LTG) Pt to ambulate 1000' without rest using 4WW during 6 MWT (06/20/19: 964') LTG Duration 01/21/20 Four Impairment Foot slap Short Term Goal (STG) Pt to regularly wear R AFO to limit foot drop and help normalize gait pattern STG Duration Met Three Impairment Transfers Short Term Goal (STG) Pt to transfer independently from mat<->w/c with no assistive devices STG Duration Met Two Impairment Ankle weakness Peripheral Edp Equipment Operator Goal (LTG) Pt to display 2/5 MMT in R DF, 4/5 MMT in R PF, and 4+/5 MMT in all other bilateral ankle movements LTG Duration 01/21/20 One Impairment Activity tolerance [facility] Goal (LTG) Pt to tolerate activity up to 15 minutes without a break LTG Duration 01/21/20 Assessment Summary Assessment Pt slowly improving his activity tolerance, rest breaks shorter today. Pt had difficulty maintaining his balance with the arm-swing exercise. Physical Therapy Plan Frequency and Duration Frequency of Treatment 1x/Week Duration of Treatment 3 months Plan of Care Start Date 11/21/19 Plan of Care End Date 02/19/20 Therapeutic Interventions Therapeutic Interventions Aquatic Therapy,Balance Training,Gait Training,Home Exercise Program,Manual Therapy,Neuromuscular Re- education,Soft Tissue Mobilization,Therapeutic Activities,Therapeutic Exercises Next Visit Focus/Plan Next Note Type Treatment Note Next Visit Plan Continue focus on opposing arm swing during gait, increasing activity tolerance, increasing gait /s an AD, and improving balance
--- NOTE | 2019-12-22 09:46 | PT.OTN ---
Current Diagnoses Foot drop, right foot (12/22/19) Muscle weakness (generalized) (12/22/19) Unsteadiness on feet (12/22/19) Unspecified abnormalities of gait and mobility (12/22/19) Traumatic subdural hemorrhage with loss of consciousness greater than 24 hours with return to pre-existing conscious level, subsequent encounter (12/22/19) History of falling (12/22/19) Physical Therapy Treatment Note PT-OP-A Visit Information Start: 09/28/17 15:21 Freq: Status: Active Protocol: Document 12/22/19 09:00 DCW (Rec: 12/22/19 09:46 DCW [id number]) Out-Patient Physical Therapy Visit Information Visit Information Visit Type Treatment Note Visit Start Time 09:00 Visit Stop Time 09:45 Total Visit Minutes 45 Visit Number 4/10 Number of PRIMER INSERTING MACHINE ADJUSTER Visits 0 Evaluation Information Evaluation Date 07/27/17 PT-OP-B Current Condition Start: 09/28/17 15:21 Freq: Status: Active Protocol: Document 10/12/17 13:45 DCW (Rec: 10/12/17 18:33 DCW [id number]) Current Condition History of Current Condition Onset Date 02/05/17 History of Current Condition See Pt's initial evaluation in Therapy Source Current Functional Impairments (Reported) Functional Limitations- Mobility/Gait Transfers:W/C<->Mat Stand- pivot: Independent PT-OP-C Subjective Start: 09/28/17 15:21 Freq: Status: Active Protocol: Document 12/22/19 09:00 DCW (Rec: 12/22/19 09:46 DCW [id number]) OP-PT Subjective Patient Comments Patient Comments Recently, my legs seem to be getting more and more numb. It 's kind of nice, because that means theres not as much pain, but it still kind of scares me. PT-OP-D Balance Start: 10/12/17 18:11 Freq: Status: Active Protocol: Document 11/21/19 09:45 DCW (Rec: 11/21/19 10:19 DCW [id number]) OP-PT Balance Assessment Standing Balance Standing Balance Comments Double leg, Eyes open: 40 Donis Balance Assessment Evaluation Sitting to Standing Ability Independent w/Hands Unsupported Stance 30 seconds Sitting Unsupported, Feet on Floor Safely- 2 minutes Standing to Sitting Ability Assist, Control w/Hands Transfer Ability Supervision, Verbal Cues Unsupported Stance- Eyes Closed 3 seconds Unsupported Stance- Eyes Open Assist to attain, 15 secs Reaching Forward Standing Safely, 2 inches Pick- Up Object From Floor Supervision Look Behind Shoulder - Standing Supervision w/Turning Turning 360 Degrees Requires Assistance Unsupported Stance, Alternating Feet on 2 Steps w/Minimum Assist Stair Unsupported Tandem Stance Assist to Step-15 seconds Unilateral Leg Stance Lifts Leg/Unable to Hold Total Score Donis Total Score (out of 56 points) 26 Donis Impairment Rating 40 to 59% Impaired (Score 23- 33) Mejia Fall Scale Copyright Permission PT-OP-E Functional Tests Start: 10/12/17 18:11 Freq: Status: Active Protocol: Document 11/21/19 09:45 DCW (Rec: 11/21/19 10:19 DCW [id number]) Functional Tests 6 Minute Walk Test Distance 517' Device Used 4WW Comments 1 standing rest, stopped at 5: 11 PT-OP-G Mobility & Gait Start: 12/23/18 10:02 Freq: Status: Active Protocol: Document 11/21/19 09:45 DCW (Rec: 11/21/19 10:19 DCW [id number]) OP Gait Assessment Gait Gait Assistance Required: Contact Guard Assist Distance (Feet) 517 Assistive Devices Assistive Device Gait Belt,4 Wheeled Walker Gait Deviations General Gait Pattern Antalgic,Ataxic,Decreased Stride Length,Decreased Feet Clearance,Flexed Trunk,Lateral Trunk Lean PT-OP-M Strength Start: 10/12/17 18:11 Freq: Status: Active Protocol: Document 11/21/19 09:45 DCW (Rec: 11/21/19 10:19 DCW [id number]) Hip Strength Hip Manual Muscle Testing Right Flexion (L2) 5 Normal Abduction 4 Good Adduction 4 Good Left Flexion (L2) 4+ Good+ Abduction 4 Good Adduction 4 Good Knee Strength Knee Manual Muscle Testing Right Flexion (S2) 4 Good Extension (L3) 4 Good Left Flexion (S2) 4+ Good+ Extension (L3) 4 Good Ankle/Foot Strength Ankle and Foot Manual Muscle Testing Right Dorsiflexion (L4) 2 Poor Plantarflexion (S1) 3+ Fair+ Left Dorsiflexion (L4) 4+ Good+ Plantarflexion (S1) 4 Good PT-OP-Q Treatments Start: 09/28/17 15:21 Freq: Status: Active Protocol: Document 12/22/19 09:00 DCW (Rec: 12/22/19 09:46 DCW [id number]) Gym Equipment Shuttle Recovery Bilateral Heel Raises Resistance 100# Reps/Time x60 Unilateral Squats Resistance 87# Shuttle Recovery Platform Stable Reps/Time x20 each Bilateral Squats Resistance 150# Shuttle Recovery Platform Stable Reps/Time x30 Shuttle Balance 1 Details Blue Comments Wide WILIAN Therapeutic Exercises Other Exercises 1 Other Exercise Name Resisted Side-stepping Side bilateral Resistance Green Equipment Used T-band Gait Training Gait Activity 1 Description Amb /c 4WW Device Used 4WW Level of Assistance SBA Distance/Duration 870' Treatment Focus Increased activity tolerance PT-OP-T Assessment and Plan Start: 09/28/17 15:21 Freq: Status: Active Protocol: Document 12/22/19 09:00 DCW (Rec: 12/22/19 09:46 DCW [id number]) Physical Therapy Assessment Impairments Impairments Activity Tolerance,Balance, Functional Activities, Functional Mobility,Gait,ROM, Strength Goals Eight Impairment Unassisted Gait Short Term Goal (STG) Pt to ambulate 300' SBA /s AD STG Duration Met Product Manager Goal (LTG) Pt to ambulate 400' SBA /s AD LTG Duration 01/21/20 Seven Impairment Donis Short Term Goal (STG) Pt to score 22/56 on Donis Balance scale STG Duration Met Product Manager Goal (LTG) Pt to score 35/56 on Donis Balance scale LTG Duration 01/21/20 Six Impairment Static Standing Balance Short Term Goal (STG) Pt to stand independently for 2 minutes STG Duration Met Product Manager Goal (LTG) Pt to stand independently for 3 minutes LTG Duration 01/21/20 Five Impairment 6 MWT Product Manager Goal (LTG) Pt to ambulate 1000' without rest using 4WW during 6 MWT (06/20/19: 964') LTG Duration 01/21/20 Four Impairment Foot slap Short Term Goal (STG) Pt to regularly wear R AFO to limit foot drop and help normalize gait pattern STG Duration Met Three Impairment Transfers Short Term Goal (STG) Pt to transfer independently from mat<->w/c with no assistive devices STG Duration Met Two Impairment Ankle weakness Half-Way Goal (LTG) Pt to display 2/5 MMT in R DF, 4/5 MMT in R PF, and 4+/5 MMT in all other bilateral ankle movements LTG Duration 01/21/20 One Impairment Activity tolerance Half-Way Goal (LTG) Pt to tolerate activity up to 15 minutes without a break LTG Duration 01/21/20 Assessment Summary Assessment ambulated his furthest distance today since Covid shutdown, 870 feet using 4WW. Clearly fatigued afterward, however able to rest briefly and was able to get back to work rather quickly. Physical Therapy Plan Frequency and Duration Frequency of Treatment 1x/Week Duration of Treatment 3 months Plan of Care Start Date 11/21/19 Plan of Care End Date 02/19/20 Therapeutic Interventions Therapeutic Interventions Aquatic Therapy,Balance Training,Gait Training,Home Exercise Program,Manual Therapy,Neuromuscular Re- education,Soft Tissue Mobilization,Therapeutic Activities,Therapeutic Exercises Next Visit Focus/Plan Next Note Type Treatment Note Next Visit Plan Continue focus on opposing arm swing during gait, increasing activity tolerance, increasing gait /s an AD, and improving balance
--- NOTE | 2019-12-26 11:59 | PT.OTN ---
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 with return to pre-existing conscious level, subsequent encounter (12/26/19) History of falling (12/26/19) Physical Therapy Treatment Note PT-OP-A Visit Information Start: 09/28/17 15:21 Freq: Status: Active Protocol: Document 12/26/19 11:15 DCW (Rec: 12/26/19 11:59 DCW [id number]) Out-Patient Physical Therapy Visit Information Visit Information Visit Type Treatment Note Visit Start Time 11:15 Visit Stop Time 12:00 Total Visit Minutes 45 Visit Number 5/ Number of RESORT HOUSEKEEPER Visits 0 Evaluation Information Evaluation Date 07/27/17 PT-OP-B Current Condition Start: 09/28/17 15:21 Freq: Status: Active Protocol: Document 10/12/17 13:45 DCW (Rec: 10/12/17 18:33 DCW [id number]) Current Condition History of Current Condition Onset Date 02/05/17 History of Current Condition See Pt's initial evaluation in Therapy Source Current Functional Impairments (Reported) Functional Limitations- Mobility/Gait Transfers:W/C<->Mat Stand- pivot: Independent PT-OP-C Subjective Start: 09/28/17 15:21 Freq: Status: Active Protocol: Document 12/26/19 11:15 DCW (Rec: 12/26/19 11:59 DCW [id number]) OP-PT Subjective Patient Comments Patient Comments Pt reports overall he is doing pretty well today. PT-OP-D Balance Start: 10/12/17 18:11 Freq: Status: Active Protocol: Document 11/21/19 09:45 DCW (Rec: 11/21/19 10:19 DCW [id number]) OP-PT Balance Assessment Standing Balance Standing Balance Comments Double leg, Eyes open: 40 Donis Balance Assessment Evaluation Sitting to Standing Ability Independent w/Hands Unsupported Stance 30 seconds Sitting Unsupported, Feet on Floor Safely- 2 minutes Standing to Sitting Ability Assist, Control w/Hands Transfer Ability Supervision, Verbal Cues Unsupported Stance- Eyes Closed 3 seconds Unsupported Stance- Eyes Open Assist to attain, 15 secs Reaching Forward Standing Safely, 2 inches Pick- Up Object From Floor Supervision Look Behind Shoulder - Standing Supervision w/Turning Turning 360 Degrees Requires Assistance Unsupported Stance, Alternating Feet on 2 Steps w/Minimum Assist Stair Unsupported Tandem Stance Assist to Step-15 seconds Unilateral Leg Stance Lifts Leg/Unable to Hold Total Score Donis Total Score (out of 56 points) 26 Donis Impairment Rating 40 to 59% Impaired (Score 23- 33) Mejia Fall Scale Copyright Permission PT-OP-E Functional Tests Start: 10/12/17 18:11 Freq: Status: Active Protocol: Document 11/21/19 09:45 DCW (Rec: 11/21/19 10:19 DCW [id number]) Functional Tests 6 Minute Walk Test Distance 517' Device Used 4WW Comments 1 standing rest, stopped at 5: 11 PT-OP-G Mobility & Gait Start: 12/23/18 10:02 Freq: Status: Active Protocol: Document 11/21/19 09:45 DCW (Rec: 11/21/19 10:19 DCW [id number]) OP Gait Assessment Gait Gait Assistance Required: Contact Guard Assist Distance (Feet) 517 Assistive Devices Assistive Device Gait Belt,4 Wheeled Walker Gait Deviations General Gait Pattern Antalgic,Ataxic,Decreased Stride Length,Decreased Feet Clearance,Flexed Trunk,Lateral Trunk Lean PT-OP-M Strength Start: 10/12/17 18:11 Freq: Status: Active Protocol: Document 11/21/19 09:45 DCW (Rec: 11/21/19 10:19 DCW [id number]) Hip Strength Hip Manual Muscle Testing Right Flexion (L2) 5 Normal Abduction 4 Good Adduction 4 Good Left Flexion (L2) 4+ Good+ Abduction 4 Good Adduction 4 Good Knee Strength Knee Manual Muscle Testing Right Flexion (S2) 4 Good Extension (L3) 4 Good Left Flexion (S2) 4+ Good+ Extension (L3) 4 Good Ankle/Foot Strength Ankle and Foot Manual Muscle Testing Right Dorsiflexion (L4) 2 Poor Plantarflexion (S1) 3+ Fair+ Left Dorsiflexion (L4) 4+ Good+ Plantarflexion (S1) 4 Good PT-OP-Q Treatments Start: 09/28/17 15:21 Freq: Status: Active Protocol: Document 12/26/19 11:15 DCW (Rec: 12/26/19 11:59 DCW [id number]) Gym Equipment Shuttle Balance 1 Details Blue Comments Wide WILIAN Therapeutic Exercises Other Exercises 2 Other Exercise Name Hurdles Equipment Used in // bars Comments fwd, lateral Gait Training Gait Activity 3 Description Amb /s AD Device Used none Distance/Duration 10' x6 Comments In // bars 1 Description Amb /c 4WW Device Used 4WW Level of Assistance SBA Distance/Duration 1200' Treatment Focus Increased activity tolerance PT-OP-T Assessment and Plan Start: 09/28/17 15:21 Freq: Status: Active Protocol: Document 12/26/19 11:15 DCW (Rec: 12/26/19 11:59 DCW [id number]) Physical Therapy Assessment Impairments Impairments Activity Tolerance,Balance, Functional Activities, Functional Mobility,Gait,ROM, Strength Goals Eight Impairment Unassisted Gait Short Term Goal (STG) Pt to ambulate 300' SBA /s AD STG Duration Met Senior Living Goal (LTG) Pt to ambulate 400' SBA /s AD LTG Duration 01/21/20 Seven Impairment Donis Short Term Goal (STG) Pt to score 22/56 on Donis Balance scale STG Duration Met [employer] Make Up Helper Goal (LTG) Pt to score 35/56 on Donis Balance scale LTG Duration 01/21/20 Six Impairment Static Standing Balance Short Term Goal (STG) Pt to stand independently for 2 minutes STG Duration Met Senior Living Goal (LTG) Pt to stand independently for 3 minutes LTG Duration 01/21/20 Five Impairment 6 MWT [employer] Make Up Helper Goal (LTG) Pt to ambulate 1000' without rest using 4WW during 6 MWT (06/20/19: 964') LTG Duration 01/21/20 Four Impairment Foot slap Short Term Goal (STG) Pt to regularly wear R AFO to limit foot drop and help normalize gait pattern STG Duration Met Three Impairment Transfers Short Term Goal (STG) Pt to transfer independently from mat<->w/c with no assistive devices STG Duration Met Two Impairment Ankle weakness [employer] Make Up Helper Goal (LTG) Pt to display 2/5 MMT in R DF, 4/5 MMT in R PF, and 4+/5 MMT in all other bilateral ankle movements LTG Duration 01/21/20 One Impairment Activity tolerance Senior Living Goal (LTG) Pt to tolerate activity up to 15 minutes without a break LTG Duration 01/21/20 Assessment Summary Assessment Pt improving with activity tolerance, returned today to attempting some hands-free ambulation, which went well, should progress next week. Physical Therapy Plan Frequency and Duration Frequency of Treatment 1x/Week Duration of Treatment 3 months Plan of Care Start Date 11/21/19 Plan of Care End Date 02/19/20 Therapeutic Interventions Therapeutic Interventions Aquatic Therapy,Balance Training,Gait Training,Home Exercise Program,Manual Therapy,Neuromuscular Re- education,Soft Tissue Mobilization,Therapeutic Activities,Therapeutic Exercises Next Visit Focus/Plan Next Note Type Treatment Note Next Visit Plan Continue focus on opposing arm swing during gait, increasing activity tolerance, increasing gait /s an AD, and improving balance
--- NOTE | 2020-01-03 10:34 | PT.OTN ---
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 greater than 24 hours with return to pre-existing conscious level, subsequent encounter (01/03/20) History of falling (01/03/20) Physical Therapy Treatment Note PT-OP-A Visit Information Start: 09/28/17 15:21 Freq: Status: Active Protocol: Document 01/03/20 09:45 DCW (Rec: 01/03/20 10:34 DCW [id number]) Out-Patient Physical Therapy Visit Information Visit Information Visit Type Treatment Note Visit Start Time 09:45 Visit Stop Time 10:30 Total Visit Minutes 45 Visit Number 5/ Number of CUSHION STUFFER Visits 0 Evaluation Information Evaluation Date 07/27/17 PT-OP-B Current Condition Start: 09/28/17 15:21 Freq: Status: Active Protocol: Document 10/12/17 13:45 DCW (Rec: 10/12/17 18:33 DCW [id number]) Current Condition History of Current Condition Onset Date 02/05/17 History of Current Condition See Pt's initial evaluation in Therapy Source Current Functional Impairments (Reported) Functional Limitations- Mobility/Gait Transfers:W/C<->Mat Stand- pivot: Independent PT-OP-C Subjective Start: 09/28/17 15:21 Freq: Status: Active Protocol: Document 01/03/20 09:45 DCW (Rec: 01/03/20 10:34 DCW [id number]) OP-PT Subjective Patient Comments Patient Comments Pt worried about his today, she had an unusual mammogram, and is currently up in oncology getting checked out, so I may be distracted today. PT-OP-D Balance Start: 10/12/17 18:11 Freq: Status: Active Protocol: Document 11/21/19 09:45 DCW (Rec: 11/21/19 10:19 DCW [id number]) OP-PT Balance Assessment Standing Balance Standing Balance Comments Double leg, Eyes open: 40 Donis Balance Assessment Evaluation Sitting to Standing Ability Independent w/Hands Unsupported Stance 30 seconds Sitting Unsupported, Feet on Floor Safely- 2 minutes Standing to Sitting Ability Assist, Control w/Hands Transfer Ability Supervision, Verbal Cues Unsupported Stance- Eyes Closed 3 seconds Unsupported Stance- Eyes Open Assist to attain, 15 secs Reaching Forward Standing Safely, 2 inches Pick- Up Object From Floor Supervision Look Behind Shoulder - Standing Supervision w/Turning Turning 360 Degrees Requires Assistance Unsupported Stance, Alternating Feet on 2 Steps w/Minimum Assist Stair Unsupported Tandem Stance Assist to Step-15 seconds Unilateral Leg Stance Lifts Leg/Unable to Hold Total Score Donis Total Score (out of 56 points) 26 Donis Impairment Rating 40 to 59% Impaired (Score 23- 33) Mejia Fall Scale Copyright Permission PT-OP-E Functional Tests Start: 10/12/17 18:11 Freq: Status: Active Protocol: Document 11/21/19 09:45 DCW (Rec: 11/21/19 10:19 DCW [id number]) Functional Tests 6 Minute Walk Test Distance 517' Device Used 4WW Comments 1 standing rest, stopped at 5: 11 PT-OP-G Mobility & Gait Start: 12/23/18 10:02 Freq: Status: Active Protocol: Document 11/21/19 09:45 DCW (Rec: 11/21/19 10:19 DCW [id number]) OP Gait Assessment Gait Gait Assistance Required: Contact Guard Assist Distance (Feet) 517 Assistive Devices Assistive Device Gait Belt,4 Wheeled Walker Gait Deviations General Gait Pattern Antalgic,Ataxic,Decreased Stride Length,Decreased Feet Clearance,Flexed Trunk,Lateral Trunk Lean PT-OP-M Strength Start: 10/12/17 18:11 Freq: Status: Active Protocol: Document 11/21/19 09:45 DCW (Rec: 11/21/19 10:19 DCW [id number]) Hip Strength Hip Manual Muscle Testing Right Flexion (L2) 5 Normal Abduction 4 Good Adduction 4 Good Left Flexion (L2) 4+ Good+ Abduction 4 Good Adduction 4 Good Knee Strength Knee Manual Muscle Testing Right Flexion (S2) 4 Good Extension (L3) 4 Good Left Flexion (S2) 4+ Good+ Extension (L3) 4 Good Ankle/Foot Strength Ankle and Foot Manual Muscle Testing Right Dorsiflexion (L4) 2 Poor Plantarflexion (S1) 3+ Fair+ Left Dorsiflexion (L4) 4+ Good+ Plantarflexion (S1) 4 Good PT-OP-Q Treatments Start: 09/28/17 15:21 Freq: Status: Active Protocol: Document 01/03/20 09:45 DCW (Rec: 01/03/20 10:34 DCW [id number]) Gym Equipment Shuttle Balance 1 Details Blue Comments Wide WILIAN Therapeutic Exercises Other Exercises 2 Other Exercise Name Hurdles Equipment Used in // bars Comments fwd, lateral 1 Other Exercise Name Resisted Side-stepping Side bilateral Resistance Green Equipment Used T-band Gait Training Gait Activity 3 Description Ambulate /s AD Device Used none Distance/Duration 20' x6, 170' x1 Comments In // bars Neuro Re-Education Treatment Balance Activities 6 Details Ball/cone transfers PT-OP-T Assessment and Plan Start: 09/28/17 15:21 Freq: Status: Active Protocol: Document 01/03/20 09:45 DCW (Rec: 01/03/20 10:34 DCW [id number]) Physical Therapy Assessment Impairments Impairments Activity Tolerance,Balance, Functional Activities, Functional Mobility,Gait,ROM, Strength Goals Eight Impairment Unassisted Gait Short Term Goal (STG) Pt to ambulate 300' SBA /s AD STG Duration Met Process Designer Goal (LTG) Pt to ambulate 400' SBA /s AD LTG Duration 01/21/20 Seven Impairment Donis Short Term Goal (STG) Pt to score 22/56 on Donis Balance scale STG Duration Met Process Designer Goal (LTG) Pt to score 35/56 on Donis Balance scale LTG Duration 01/21/20 Six Impairment Static Standing Balance Short Term Goal (STG) Pt to stand independently for 2 minutes STG Duration Met Senior Care Goal (LTG) Pt to stand independently for 3 minutes LTG Duration 01/21/20 Five Impairment 6 MWT Process Designer Goal (LTG) Pt to ambulate 1000' without rest using 4WW during 6 MWT (06/20/19: 964') LTG Duration 01/21/20 Four Impairment Foot slap Short Term Goal (STG) Pt to regularly wear R AFO to limit foot drop and help normalize gait pattern STG Duration Met Three Impairment Transfers Short Term Goal (STG) Pt to transfer independently from mat<->w/c with no assistive devices STG Duration Met Two Impairment Ankle weakness Process Designer Goal (LTG) Pt to display 2/5 MMT in R DF, 4/5 MMT in R PF, and 4+/5 MMT in all other bilateral ankle movements LTG Duration 01/21/20 One Impairment Activity tolerance Senior Care Goal (LTG) Pt to tolerate activity up to 15 minutes without a break LTG Duration 01/21/20 Assessment Summary Assessment Pt did well with ambulating without an assistive device today, able to walk a full lap around the gym, but was very fatigued at the end of the session. Physical Therapy Plan Frequency and Duration Frequency of Treatment 1x/Week Duration of Treatment 3 months Plan of Care Start Date 11/21/19 Plan of Care End Date 02/19/20 Therapeutic Interventions Therapeutic Interventions Aquatic Therapy,Balance Training,Gait Training,Home Exercise Program,Manual Therapy,Neuromuscular Re- education,Soft Tissue Mobilization,Therapeutic Activities,Therapeutic Exercises Next Visit Focus/Plan Next Note Type Treatment Note Next Visit Plan Continue focus on opposing arm swing during gait, increasing activity tolerance, increasing gait /s an AD, and improving balance
--- NOTE | 2020-01-09 10:30 | PT.OTN ---
Current Diagnoses Foot drop, right foot (01/09/20) Muscle weakness (generalized) (01/09/20) Unsteadiness on feet (01/09/20) Unspecified abnormalities of gait and mobility (01/09/20) Traumatic subdural hemorrhage with loss of consciousness greater than 24 hours with return to pre-existing conscious level, subsequent encounter (01/09/20) History of falling (01/09/20) Physical Therapy Treatment Note PT-OP-A Visit Information Start: 09/28/17 15:21 Freq: Status: Active Protocol: Document 01/09/20 09:45 DCW (Rec: 01/09/20 10:29 DCW [id number]) Out-Patient Physical Therapy Visit Information Visit Information Visit Type Treatment Note Visit Start Time 09:45 Visit Stop Time 10:30 Total Visit Minutes 45 Visit Number 12/07 Number of FORKLIFT TECHNICIAN Visits 0 Evaluation Information Evaluation Date 07/27/17 PT-OP-B Current Condition Start: 09/28/17 15:21 Freq: Status: Active Protocol: Document 10/12/17 13:45 DCW (Rec: 10/12/17 18:33 DCW [id number]) Current Condition History of Current Condition Onset Date 02/05/17 History of Current Condition See Pt's initial evaluation in Therapy Source Current Functional Impairments (Reported) Functional Limitations- Mobility/Gait Transfers:W/C<->Mat Stand- pivot: Independent PT-OP-C Subjective Start: 09/28/17 15:21 Freq: Status: Active Protocol: Document 01/09/20 09:45 DCW (Rec: 01/09/20 10:29 DCW [id number]) OP-PT Subjective Patient Comments Patient Comments I just came from my yearly check-up with my primary doctor, and everything looks good, so everyone is happy. Except now my yearly appointment has been changed to every three months. PT-OP-D Balance Start: 10/12/17 18:11 Freq: Status: Active Protocol: Document 11/21/19 09:45 DCW (Rec: 11/21/19 10:19 DCW [id number]) OP-PT Balance Assessment Standing Balance Standing Balance Comments Double leg, Eyes open: 40 Donis Balance Assessment Evaluation Sitting to Standing Ability Independent w/Hands Unsupported Stance 30 seconds Sitting Unsupported, Feet on Floor Safely- 2 minutes Standing to Sitting Ability Assist, Control w/Hands Transfer Ability Supervision, Verbal Cues Unsupported Stance- Eyes Closed 3 seconds Unsupported Stance- Eyes Open Assist to attain, 15 secs Reaching Forward Standing Safely, 2 inches Pick- Up Object From Floor Supervision Look Behind Shoulder - Standing Supervision w/Turning Turning 360 Degrees Requires Assistance Unsupported Stance, Alternating Feet on 2 Steps w/Minimum Assist Stair Unsupported Tandem Stance Assist to Step-15 seconds Unilateral Leg Stance Lifts Leg/Unable to Hold Total Score Donis Total Score (out of 56 points) 26 Donis Impairment Rating 40 to 59% Impaired (Score 23- 33) Mejia Fall Scale Copyright Permission PT-OP-E Functional Tests Start: 10/12/17 18:11 Freq: Status: Active Protocol: Document 11/21/19 09:45 DCW (Rec: 11/21/19 10:19 DCW [id number]) Functional Tests 6 Minute Walk Test Distance 517' Device Used 4WW Comments 1 standing rest, stopped at 5: 11 PT-OP-G Mobility & Gait Start: 12/23/18 10:02 Freq: Status: Active Protocol: Document 11/21/19 09:45 DCW (Rec: 11/21/19 10:19 DCW [id number]) OP Gait Assessment Gait Gait Assistance Required: Contact Guard Assist Distance (Feet) 517 Assistive Devices Assistive Device Gait Belt,4 Wheeled Walker Gait Deviations General Gait Pattern Antalgic,Ataxic,Decreased Stride Length,Decreased Feet Clearance,Flexed Trunk,Lateral Trunk Lean PT-OP-M Strength Start: 10/12/17 18:11 Freq: Status: Active Protocol: Document 11/21/19 09:45 DCW (Rec: 11/21/19 10:19 DCW [id number]) Hip Strength Hip Manual Muscle Testing Right Flexion (L2) 5 Normal Abduction 4 Good Adduction 4 Good Left Flexion (L2) 4+ Good+ Abduction 4 Good Adduction 4 Good Knee Strength Knee Manual Muscle Testing Right Flexion (S2) 4 Good Extension (L3) 4 Good Left Flexion (S2) 4+ Good+ Extension (L3) 4 Good Ankle/Foot Strength Ankle and Foot Manual Muscle Testing Right Dorsiflexion (L4) 2 Poor Plantarflexion (S1) 3+ Fair+ Left Dorsiflexion (L4) 4+ Good+ Plantarflexion (S1) 4 Good PT-OP-Q Treatments Start: 09/28/17 15:21 Freq: Status: Active Protocol: Document 01/09/20 09:45 DCW (Rec: 01/09/20 10:29 DCW [id number]) Gym Equipment Shuttle Recovery Bilateral Heel Raises Resistance 100# Reps/Time x60 Unilateral Squats Resistance 87# Shuttle Recovery Platform Stable Reps/Time x20 each Bilateral Squats Resistance 150# Shuttle Recovery Platform Stable Reps/Time x30 Shuttle Balance 1 Details Blue Comments Wide WILIAN Therapeutic Exercises Other Exercises 2 Other Exercise Name Hurdles Equipment Used in // bars Comments fwd, lateral 1 Other Exercise Name Resisted Side-stepping Side bilateral Resistance Green Equipment Used T-band Gait Training Gait Activity 3 Description Ambulate /s AD Device Used none Distance/Duration 150' x2 PT-OP-T Assessment and Plan Start: 09/28/17 15:21 Freq: Status: Active Protocol: Document 01/09/20 09:45 DCW (Rec: 01/09/20 10:29 DCW [id number]) Physical Therapy Assessment Impairments Impairments Activity Tolerance,Balance, Functional Activities, Functional Mobility,Gait,ROM, Strength Goals Eight Impairment Unassisted Gait Short Term Goal (STG) Pt to ambulate 300' SBA /s AD STG Duration Met Half-Way Goal (LTG) Pt to ambulate 400' SBA /s AD LTG Duration 01/21/20 Seven Impairment Donis Short Term Goal (STG) Pt to score 22/56 on Donis Balance scale STG Duration Met Wire Inserter Goal (LTG) Pt to score 35/56 on Donis Balance scale LTG Duration 01/21/20 Six Impairment Static Standing Balance Short Term Goal (STG) Pt to stand independently for 2 minutes STG Duration Met Wire Inserter Goal (LTG) Pt to stand independently for 3 minutes LTG Duration 01/21/20 Five Impairment 6 MWT Wire Inserter Goal (LTG) Pt to ambulate 1000' without rest using 4WW during 6 MWT (06/20/19: 964') LTG Duration 01/21/20 Four Impairment Foot slap Short Term Goal (STG) Pt to regularly wear R AFO to limit foot drop and help normalize gait pattern STG Duration Met Three Impairment Transfers Short Term Goal (STG) Pt to transfer independently from mat<->w/c with no assistive devices STG Duration Met Two Impairment Ankle weakness Half-Way Goal (LTG) Pt to display 2/5 MMT in R DF, 4/5 MMT in R PF, and 4+/5 MMT in all other bilateral ankle movements LTG Duration 01/21/20 One Impairment Activity tolerance Half-Way Goal (LTG) Pt to tolerate activity up to 15 minutes without a break LTG Duration 01/21/20 Assessment Summary Assessment Pt quite fatigued again today, needed multiple rest breaks. Pt complained that resistance felt increased, despite no change. Physical Therapy Plan Frequency and Duration Frequency of Treatment 1x/Week Duration of Treatment 3 months Plan of Care Start Date 11/21/19 Plan of Care End Date 02/19/20 Therapeutic Interventions Therapeutic Interventions Aquatic Therapy,Balance Training,Gait Training,Home Exercise Program,Manual Therapy,Neuromuscular Re- education,Soft Tissue Mobilization,Therapeutic Activities,Therapeutic Exercises Next Visit Focus/Plan Next Note Type Treatment Note Next Visit Plan Continue focus on opposing arm swing during gait, increasing activity tolerance, increasing gait /s an AD, and improving balance
--- NOTE | 2020-01-16 10:29 | PT.OTN ---
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 with return to pre-existing conscious level, subsequent encounter (01/16/20) History of falling (01/16/20) Physical Therapy Treatment Note PT-OP-A Visit Information Start: 09/28/17 15:21 Freq: Status: Active Protocol: Document 01/16/20 09:45 DCW (Rec: 01/16/20 10:28 DCW [id number]) Out-Patient Physical Therapy Visit Information Visit Information Visit Type Treatment Note Visit Start Time 09:45 Visit Stop Time 10:30 Total Visit Minutes 45 Visit Number 01/07 Number of HOME APPRAISER Visits 0 Evaluation Information Evaluation Date 07/27/17 PT-OP-B Current Condition Start: 09/28/17 15:21 Freq: Status: Active Protocol: Document 10/12/17 13:45 DCW (Rec: 10/12/17 18:33 DCW [id number]) Current Condition History of Current Condition Onset Date 02/05/17 History of Current Condition See Pt's initial evaluation in Therapy Source Current Functional Impairments (Reported) Functional Limitations- Mobility/Gait Transfers:W/C<->Mat Stand- pivot: Independent PT-OP-C Subjective Start: 09/28/17 15:21 Freq: Status: Active Protocol: Document 01/16/20 09:45 DCW (Rec: 01/16/20 10:28 DCW [id number]) OP-PT Subjective Patient Comments Patient Comments I was ready to tell you I was feeling well when I got here this morning, but my body always goes in the opposite direction than what I think, so I won't say anything. PT-OP-D Balance Start: 10/12/17 18:11 Freq: Status: Active Protocol: Document 11/21/19 09:45 DCW (Rec: 11/21/19 10:19 DCW [id number]) OP-PT Balance Assessment Standing Balance Standing Balance Comments Double leg, Eyes open: 40 Donis Balance Assessment Evaluation Sitting to Standing Ability Independent w/Hands Unsupported Stance 30 seconds Sitting Unsupported, Feet on Floor Safely- 2 minutes Standing to Sitting Ability Assist, Control w/Hands Transfer Ability Supervision, Verbal Cues Unsupported Stance- Eyes Closed 3 seconds Unsupported Stance- Eyes Open Assist to attain, 15 secs Reaching Forward Standing Safely, 2 inches Pick- Up Object From Floor Supervision Look Behind Shoulder - Standing Supervision w/Turning Turning 360 Degrees Requires Assistance Unsupported Stance, Alternating Feet on 2 Steps w/Minimum Assist Stair Unsupported Tandem Stance Assist to Step-15 seconds Unilateral Leg Stance Lifts Leg/Unable to Hold Total Score Donis Total Score (out of 56 points) 26 Donis Impairment Rating 40 to 59% Impaired (Score 23- 33) Mejia Fall Scale Copyright Permission PT-OP-E Functional Tests Start: 10/12/17 18:11 Freq: Status: Active Protocol: Document 11/21/19 09:45 DCW (Rec: 11/21/19 10:19 DCW [id number]) Functional Tests 6 Minute Walk Test Distance 517' Device Used 4WW Comments 1 standing rest, stopped at 5: 11 PT-OP-G Mobility & Gait Start: 12/23/18 10:02 Freq: Status: Active Protocol: Document 11/21/19 09:45 DCW (Rec: 11/21/19 10:19 DCW [id number]) OP Gait Assessment Gait Gait Assistance Required: Contact Guard Assist Distance (Feet) 517 Assistive Devices Assistive Device Gait Belt,4 Wheeled Walker Gait Deviations General Gait Pattern Antalgic,Ataxic,Decreased Stride Length,Decreased Feet Clearance,Flexed Trunk,Lateral Trunk Lean PT-OP-M Strength Start: 10/12/17 18:11 Freq: Status: Active Protocol: Document 11/21/19 09:45 DCW (Rec: 11/21/19 10:19 DCW [id number]) Hip Strength Hip Manual Muscle Testing Right Flexion (L2) 5 Normal Abduction 4 Good Adduction 4 Good Left Flexion (L2) 4+ Good+ Abduction 4 Good Adduction 4 Good Knee Strength Knee Manual Muscle Testing Right Flexion (S2) 4 Good Extension (L3) 4 Good Left Flexion (S2) 4+ Good+ Extension (L3) 4 Good Ankle/Foot Strength Ankle and Foot Manual Muscle Testing Right Dorsiflexion (L4) 2 Poor Plantarflexion (S1) 3+ Fair+ Left Dorsiflexion (L4) 4+ Good+ Plantarflexion (S1) 4 Good PT-OP-Q Treatments Start: 09/28/17 15:21 Freq: Status: Active Protocol: Document 01/16/20 09:45 DCW (Rec: 01/16/20 10:28 DCW [id number]) Gym Equipment Shuttle Balance 1 Details Blue Comments Wide WILIAN Therapeutic Exercises Other Exercises 2 Other Exercise Name Hurdles Equipment Used in // bars Comments fwd, lateral Gait Training Gait Activity 3 Description Ambulate /s AD Device Used none Distance/Duration 170' x2 Neuro Re-Education Treatment Balance Activities 6 Details Ball/cone pick-up, ball toss PT-OP-T Assessment and Plan Start: 09/28/17 15:21 Freq: Status: Active Protocol: Document 01/16/20 09:45 DCW (Rec: 01/16/20 10:28 DCW [id number]) Physical Therapy Assessment Impairments Impairments Activity Tolerance,Balance, Functional Activities, Functional Mobility,Gait,ROM, Strength Goals Eight Impairment Unassisted Gait Short Term Goal (STG) Pt to ambulate 300' SBA /s AD STG Duration Met In Home Tutor Goal (LTG) Pt to ambulate 400' SBA /s AD LTG Duration 01/21/20 Seven Impairment Donis Short Term Goal (STG) Pt to score 22/56 on Donis Balance scale STG Duration Met In Home Tutor Goal (LTG) Pt to score 35/56 on Donis Balance scale LTG Duration 01/21/20 Six Impairment Static Standing Balance Short Term Goal (STG) Pt to stand independently for 2 minutes STG Duration Met In Home Tutor Goal (LTG) Pt to stand independently for 3 minutes LTG Duration 01/21/20 Five Impairment 6 MWT Fpc Goal (LTG) Pt to ambulate 1000' without rest using 4WW during 6 MWT (06/20/19: 964') LTG Duration 01/21/20 Four Impairment Foot slap Short Term Goal (STG) Pt to regularly wear R AFO to limit foot drop and help normalize gait pattern STG Duration Met Three Impairment Transfers Short Term Goal (STG) Pt to transfer independently from mat<->w/c with no assistive devices STG Duration Met Two Impairment Ankle weakness Fpc Goal (LTG) Pt to display 2/5 MMT in R DF, 4/5 MMT in R PF, and 4+/5 MMT in all other bilateral ankle movements LTG Duration 01/21/20 One Impairment Activity tolerance In Home Tutor Goal (LTG) Pt to tolerate activity up to 15 minutes without a break LTG Duration 01/21/20 Assessment Summary Assessment Pt had 3-4 LOB during gait today, required Min Ax1 to maintain balance. Pt was a little more fatigued than usual, needed more rest breaks . He was, however, able to ambulate his furthest distance without an AD since returning after the Covid-19 shut-down. Physical Therapy Plan Frequency and Duration Frequency of Treatment 1x/Week Duration of Treatment 3 months Plan of Care Start Date 11/21/19 Plan of Care End Date 02/19/20 Therapeutic Interventions Therapeutic Interventions Aquatic Therapy,Balance Training,Gait Training,Home Exercise Program,Manual Therapy,Neuromuscular Re- education,Soft Tissue Mobilization,Therapeutic Activities,Therapeutic Exercises Next Visit Focus/Plan Next Note Type Treatment Note Next Visit Plan Continue focus on opposing arm swing during gait, increasing activity tolerance, increasing gait /s an AD, and improving balance
--- NOTE | 2020-01-23 10:29 | PT.OTN ---
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 greater than 24 hours with return to pre-existing conscious level, subsequent encounter (01/23/20) History of falling (01/23/20) Physical Therapy Treatment Note PT-OP-A Visit Information Start: 09/28/17 15:21 Freq: Status: Active Protocol: Document 01/23/20 09:45 DCW (Rec: 01/23/20 10:29 DCW [id number]) Out-Patient Physical Therapy Visit Information Visit Information Visit Type Treatment Note Visit Start Time 09:45 Visit Stop Time 10:30 Total Visit Minutes 45 Visit Number 02/07 Number of [employer]PERATIONS Visits 0 Evaluation Information Evaluation Date 07/27/17 PT-OP-B Current Condition Start: 09/28/17 15:21 Freq: Status: Active Protocol: Document 10/12/17 13:45 DCW (Rec: 10/12/17 18:33 DCW [id number]) Current Condition History of Current Condition Onset Date 02/05/17 History of Current Condition See Pt's initial evaluation in Therapy Source Current Functional Impairments (Reported) Functional Limitations- Mobility/Gait Transfers:W/C<->Mat Stand- pivot: Independent PT-OP-C Subjective Start: 09/28/17 15:21 Freq: Status: Active Protocol: Document 01/23/20 09:45 DCW (Rec: 01/23/20 10:29 DCW [id number]) OP-PT Subjective Patient Comments Patient Comments Pt reports everything feels alright today. PT-OP-D Balance Start: 10/12/17 18:11 Freq: Status: Active Protocol: Document 11/21/19 09:45 DCW (Rec: 11/21/19 10:19 DCW [id number]) OP-PT Balance Assessment Standing Balance Standing Balance Comments Double leg, Eyes open: 40 Donis Balance Assessment Evaluation Sitting to Standing Ability Independent w/Hands Unsupported Stance 30 seconds Sitting Unsupported, Feet on Floor Safely- 2 minutes Standing to Sitting Ability Assist, Control w/Hands Transfer Ability Supervision, Verbal Cues Unsupported Stance- Eyes Closed 3 seconds Unsupported Stance- Eyes Open Assist to attain, 15 secs Reaching Forward Standing Safely, 2 inches Pick- Up Object From Floor Supervision Look Behind Shoulder - Standing Supervision w/Turning Turning 360 Degrees Requires Assistance Unsupported Stance, Alternating Feet on 2 Steps w/Minimum Assist Stair Unsupported Tandem Stance Assist to Step-15 seconds Unilateral Leg Stance Lifts Leg/Unable to Hold Total Score Donis Total Score (out of 56 points) 26 Donis Impairment Rating 40 to 59% Impaired (Score 23- 33) Mejia Fall Scale Copyright Permission PT-OP-E Functional Tests Start: 10/12/17 18:11 Freq: Status: Active Protocol: Document 11/21/19 09:45 DCW (Rec: 11/21/19 10:19 DCW [id number]) Functional Tests 6 Minute Walk Test Distance 517' Device Used 4WW Comments 1 standing rest, stopped at 5: 11 PT-OP-G Mobility & Gait Start: 12/23/18 10:02 Freq: Status: Active Protocol: Document 11/21/19 09:45 DCW (Rec: 11/21/19 10:19 DCW [id number]) OP Gait Assessment Gait Gait Assistance Required: Contact Guard Assist Distance (Feet) 517 Assistive Devices Assistive Device Gait Belt,4 Wheeled Walker Gait Deviations General Gait Pattern Antalgic,Ataxic,Decreased Stride Length,Decreased Feet Clearance,Flexed Trunk,Lateral Trunk Lean PT-OP-M Strength Start: 10/12/17 18:11 Freq: Status: Active Protocol: Document 11/21/19 09:45 DCW (Rec: 11/21/19 10:19 DCW [id number]) Hip Strength Hip Manual Muscle Testing Right Flexion (L2) 5 Normal Abduction 4 Good Adduction 4 Good Left Flexion (L2) 4+ Good+ Abduction 4 Good Adduction 4 Good Knee Strength Knee Manual Muscle Testing Right Flexion (S2) 4 Good Extension (L3) 4 Good Left Flexion (S2) 4+ Good+ Extension (L3) 4 Good Ankle/Foot Strength Ankle and Foot Manual Muscle Testing Right Dorsiflexion (L4) 2 Poor Plantarflexion (S1) 3+ Fair+ Left Dorsiflexion (L4) 4+ Good+ Plantarflexion (S1) 4 Good PT-OP-Q Treatments Start: 09/28/17 15:21 Freq: Status: Active Protocol: Document 01/23/20 09:45 DCW (Rec: 01/23/20 10:29 DCW [id number]) Gym Equipment Shuttle Recovery Bilateral Heel Raises Resistance 100# Reps/Time x60 Unilateral Squats Resistance 87# Shuttle Recovery Platform Stable Reps/Time x20 each Bilateral Squats Resistance 150# Shuttle Recovery Platform Stable Reps/Time x30 Gait Training Gait Activity 3 Description Ambulate /s AD Device Used none Level of Assistance CGA Distance/Duration 300' Neuro Re-Education Treatment Balance Activities 6 Details Ball/cone pick-up, ball toss PT-OP-T Assessment and Plan Start: 09/28/17 15:21 Freq: Status: Active Protocol: Document 01/23/20 09:45 DCW (Rec: 01/23/20 10:29 DCW [id number]) Physical Therapy Assessment Impairments Impairments Activity Tolerance,Balance, Functional Activities, Functional Mobility,Gait,ROM, Strength Goals Eight Impairment Unassisted Gait Short Term Goal (STG) Pt to ambulate 300' SBA /s AD STG Duration Met Computer Technical Specialist Goal (LTG) Pt to ambulate 400' SBA /s AD LTG Duration 01/21/20 Seven Impairment Donis Short Term Goal (STG) Pt to score 22/56 on Donis Balance scale STG Duration Met Computer Technical Specialist Goal (LTG) Pt to score 35/56 on Donis Balance scale LTG Duration 01/21/20 Six Impairment Static Standing Balance Short Term Goal (STG) Pt to stand independently for 2 minutes STG Duration Met Computer Technical Specialist Goal (LTG) Pt to stand independently for 3 minutes LTG Duration 01/21/20 Five Impairment 6 MWT Longterm Goal (LTG) Pt to ambulate 1000' without rest using 4WW during 6 MWT (06/20/19: 964') LTG Duration 01/21/20 Four Impairment Foot slap Short Term Goal (STG) Pt to regularly wear R AFO to limit foot drop and help normalize gait pattern STG Duration Met Three Impairment Transfers Short Term Goal (STG) Pt to transfer independently from mat<->w/c with no assistive devices STG Duration Met Two Impairment Ankle weakness Computer Technical Specialist Goal (LTG) Pt to display 2/5 MMT in R DF, 4/5 MMT in R PF, and 4+/5 MMT in all other bilateral ankle movements LTG Duration 01/21/20 One Impairment Activity tolerance Longterm Goal (LTG) Pt to tolerate activity up to 15 minutes without a break LTG Duration 01/21/20 Assessment Summary Assessment Pt did very well today with gait, minimal LOB, farthest he has walked post-Covid shutdown. Physical Therapy Plan Frequency and Duration Frequency of Treatment 1x/Week Duration of Treatment 3 months Plan of Care Start Date 11/21/19 Plan of Care End Date 02/19/20 Therapeutic Interventions Therapeutic Interventions Aquatic Therapy,Balance Training,Gait Training,Home Exercise Program,Manual Therapy,Neuromuscular Re- education,Soft Tissue Mobilization,Therapeutic Activities,Therapeutic Exercises Next Visit Focus/Plan Next Note Type Treatment Note Next Visit Plan Continue focus on opposing arm swing during gait, increasing activity tolerance, increasing gait /s an AD, and improving balance
--- NOTE | 2020-01-30 10:31 | PT.OTN ---
Current Diagnoses Foot drop, right foot (01/30/20) Muscle weakness (generalized) (01/30/20) Unsteadiness on feet (01/30/20) Unspecified abnormalities of gait and mobility (01/30/20) Traumatic subdural hemorrhage with loss of consciousness greater than 24 hours with return to pre-existing conscious level, subsequent encounter (01/30/20) History of falling (01/30/20) Physical Therapy Treatment Note PT-OP-A Visit Information Start: 09/28/17 15:21 Freq: Status: Active Protocol: Document 01/30/20 09:45 DCW (Rec: 01/30/20 10:31 DCW [id number]) Out-Patient Physical Therapy Visit Information Visit Information Visit Type Progress Note Visit Note 10th visit prog note Visit Start Time 09:45 Visit Stop Time 10:30 Total Visit Minutes 45 Visit Number 03/09 Number of GRANITE BLOCK PAVER Visits 0 Evaluation Information Evaluation Date 07/27/17 PT-OP-B Current Condition Start: 09/28/17 15:21 Freq: Status: Active Protocol: Document 10/12/17 13:45 DCW (Rec: 10/12/17 18:33 DCW [id number]) Current Condition History of Current Condition Onset Date 02/05/17 History of Current Condition See Pt's initial evaluation in Therapy Source Current Functional Impairments (Reported) Functional Limitations- Mobility/Gait Transfers:W/C<->Mat Stand- pivot: Independent PT-OP-C Subjective Start: 09/28/17 15:21 Freq: Status: Active Protocol: Document 01/30/20 09:45 DCW (Rec: 01/30/20 10:31 DCW [id number]) OP-PT Subjective Patient Comments Patient Comments Pt feels like he is doing pretty well today. PT-OP-D Balance Start: 10/12/17 18:11 Freq: Status: Active Protocol: Document 11/21/19 09:45 DCW (Rec: 11/21/19 10:19 DCW [id number]) OP-PT Balance Assessment Standing Balance Standing Balance Comments Double leg, Eyes open: 40 Donis Balance Assessment Evaluation Sitting to Standing Ability Independent w/Hands Unsupported Stance 30 seconds Sitting Unsupported, Feet on Floor Safely- 2 minutes Standing to Sitting Ability Assist, Control w/Hands Transfer Ability Supervision, Verbal Cues Unsupported Stance- Eyes Closed 3 seconds Unsupported Stance- Eyes Open Assist to attain, 15 secs Reaching Forward Standing Safely, 2 inches Pick- Up Object From Floor Supervision Look Behind Shoulder - Standing Supervision w/Turning Turning 360 Degrees Requires Assistance Unsupported Stance, Alternating Feet on 2 Steps w/Minimum Assist Stair Unsupported Tandem Stance Assist to Step-15 seconds Unilateral Leg Stance Lifts Leg/Unable to Hold Total Score Donis Total Score (out of 56 points) 26 Donis Impairment Rating 40 to 59% Impaired (Score 23- 33) Mejia Fall Scale Copyright Permission PT-OP-E Functional Tests Start: 10/12/17 18:11 Freq: Status: Active Protocol: Document 11/21/19 09:45 DCW (Rec: 11/21/19 10:19 DCW [id number]) Functional Tests 6 Minute Walk Test Distance 517' Device Used 4WW Comments 1 standing rest, stopped at 5: 11 PT-OP-G Mobility & Gait Start: 12/23/18 10:02 Freq: Status: Active Protocol: Document 11/21/19 09:45 DCW (Rec: 11/21/19 10:19 DCW [id number]) OP Gait Assessment Gait Gait Assistance Required: Contact Guard Assist Distance (Feet) 517 Assistive Devices Assistive Device Gait Belt,4 Wheeled Walker Gait Deviations General Gait Pattern Antalgic,Ataxic,Decreased Stride Length,Decreased Feet Clearance,Flexed Trunk,Lateral Trunk Lean PT-OP-M Strength Start: 10/12/17 18:11 Freq: Status: Active Protocol: Document 11/21/19 09:45 DCW (Rec: 11/21/19 10:19 DCW [id number]) Hip Strength Hip Manual Muscle Testing Right Flexion (L2) 5 Normal Abduction 4 Good Adduction 4 Good Left Flexion (L2) 4+ Good+ Abduction 4 Good Adduction 4 Good Knee Strength Knee Manual Muscle Testing Right Flexion (S2) 4 Good Extension (L3) 4 Good Left Flexion (S2) 4+ Good+ Extension (L3) 4 Good Ankle/Foot Strength Ankle and Foot Manual Muscle Testing Right Dorsiflexion (L4) 2 Poor Plantarflexion (S1) 3+ Fair+ Left Dorsiflexion (L4) 4+ Good+ Plantarflexion (S1) 4 Good PT-OP-Q Treatments Start: 09/28/17 15:21 Freq: Status: Active Protocol: Document 01/30/20 09:45 DCW (Rec: 01/30/20 10:31 DCW [id number]) Gym Equipment Shuttle Recovery Bilateral Heel Raises Resistance 100# Reps/Time x60 Unilateral Squats Resistance 87# Shuttle Recovery Platform Stable Reps/Time x20 each Bilateral Squats Resistance 150# Shuttle Recovery Platform Stable Reps/Time x30 Shuttle Balance 1 Details Blue Comments Wide WILIAN Gait Training Gait Activity 3 Description Ambulate /s AD Device Used none Level of Assistance CGA Distance/Duration 220' Neuro Re-Education Treatment Balance Activities 6 Details Ball/cone pick-up, ball toss PT-OP-T Assessment and Plan Start: 09/28/17 15:21 Freq: Status: Active Protocol: Document 01/30/20 09:45 DCW (Rec: 01/30/20 10:31 DCW [id number]) Physical Therapy Assessment Impairments Impairments Activity Tolerance,Balance, Functional Activities, Functional Mobility,Gait,ROM, Strength Goals Eight Impairment Unassisted Gait Short Term Goal (STG) Pt to ambulate 300' SBA /s AD STG Duration Met Sole Layer Hand Goal (LTG) Pt to ambulate 400' SBA /s AD LTG Duration 02/19/20 Seven Impairment Donis Short Term Goal (STG) Pt to score 22/56 on Donis Balance scale STG Duration Met Sole Layer Hand Goal (LTG) Pt to score 35/56 on Donis Balance scale LTG Duration 02/19/20 Six Impairment Static Standing Balance Short Term Goal (STG) Pt to stand independently for 2 minutes STG Duration Met [facility] Goal (LTG) Pt to stand independently for 3 minutes LTG Duration 02/19/20 Five Impairment 6 MWT Sole Layer Hand Goal (LTG) Pt to ambulate 1000' without rest using 4WW during 6 MWT (06/20/19: 964') LTG Duration 02/19/20 Four Impairment Foot slap Short Term Goal (STG) Pt to regularly wear R AFO to limit foot drop and help normalize gait pattern STG Duration Met Three Impairment Transfers Short Term Goal (STG) Pt to transfer independently from mat<->w/c with no assistive devices STG Duration Met Two Impairment Ankle weakness Sole Layer Hand Goal (LTG) Pt to display 2/5 MMT in R DF, 4/5 MMT in R PF, and 4+/5 MMT in all other bilateral ankle movements LTG Duration 02/19/20 One Impairment Activity tolerance Sole Layer Hand Goal (LTG) Pt to tolerate activity up to 15 minutes without a break LTG Duration 02/19/20 Assessment Summary Assessment Since last prog note, pt has returned to ambulating /s an AD, and has continued to improve with functional balance, especially bending over to pick items up off cones. Physical Therapy Plan Frequency and Duration Frequency of Treatment 1x/Week Duration of Treatment 3 months Plan of Care Start Date 11/21/19 Plan of Care End Date 02/19/20 Therapeutic Interventions Therapeutic Interventions Aquatic Therapy,Balance Training,Gait Training,Home Exercise Program,Manual Therapy,Neuromuscular Re- education,Soft Tissue Mobilization,Therapeutic Activities,Therapeutic Exercises Next Visit Focus/Plan Next Note Type Treatment Note Next Visit Plan Continue focus on opposing arm swing during gait, increasing activity tolerance, increasing gait /s an AD, and improving balance
--- NOTE | 2020-02-06 10:32 | PT.OTN ---
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 hours with return to pre-existing conscious level, subsequent encounter (02/06/20) History of falling (02/06/20) Physical Therapy Treatment Note PT-OP-A Visit Information Start: 09/28/17 15:21 Freq: Status: Active Protocol: Document 02/06/20 09:45 DCW (Rec: 02/06/20 10:32 DCW [id number]) Out-Patient Physical Therapy Visit Information Visit Information Visit Type Treatment Note Visit Start Time 09:45 Visit Stop Time 10:30 Total Visit Minutes 45 Visit Number 06/09 Number of MANAGER FEDERAL Visits 0 Evaluation Information Evaluation Date 07/27/17 PT-OP-B Current Condition Start: 09/28/17 15:21 Freq: Status: Active Protocol: Document 10/12/17 13:45 DCW (Rec: 10/12/17 18:33 DCW [id number]) Current Condition History of Current Condition Onset Date 02/05/17 History of Current Condition See Pt's initial evaluation in Therapy Source Current Functional Impairments (Reported) Functional Limitations- Mobility/Gait Transfers:W/C<->Mat Stand- pivot: Independent PT-OP-C Subjective Start: 09/28/17 15:21 Freq: Status: Active Protocol: Document 02/06/20 09:45 DCW (Rec: 02/06/20 10:32 DCW [id number]) OP-PT Subjective Patient Comments Patient Comments Pt has no complaints, overall feels like things are going well. PT-OP-D Balance Start: 10/12/17 18:11 Freq: Status: Active Protocol: Document 11/21/19 09:45 DCW (Rec: 11/21/19 10:19 DCW [id number]) OP-PT Balance Assessment Standing Balance Standing Balance Comments Double leg, Eyes open: 40 Donis Balance Assessment Evaluation Sitting to Standing Ability Independent w/Hands Unsupported Stance 30 seconds Sitting Unsupported, Feet on Floor Safely- 2 minutes Standing to Sitting Ability Assist, Control w/Hands Transfer Ability Supervision, Verbal Cues Unsupported Stance- Eyes Closed 3 seconds Unsupported Stance- Eyes Open Assist to attain, 15 secs Reaching Forward Standing Safely, 2 inches Pick- Up Object From Floor Supervision Look Behind Shoulder - Standing Supervision w/Turning Turning 360 Degrees Requires Assistance Unsupported Stance, Alternating Feet on 2 Steps w/Minimum Assist Stair Unsupported Tandem Stance Assist to Step-15 seconds Unilateral Leg Stance Lifts Leg/Unable to Hold Total Score Donis Total Score (out of 56 points) 26 Donis Impairment Rating 40 to 59% Impaired (Score 23- 33) Mejia Fall Scale Copyright Permission PT-OP-E Functional Tests Start: 10/12/17 18:11 Freq: Status: Active Protocol: Document 11/21/19 09:45 DCW (Rec: 11/21/19 10:19 DCW [id number]) Functional Tests 6 Minute Walk Test Distance 517' Device Used 4WW Comments 1 standing rest, stopped at 5: 11 PT-OP-G Mobility & Gait Start: 12/23/18 10:02 Freq: Status: Active Protocol: Document 11/21/19 09:45 DCW (Rec: 11/21/19 10:19 DCW [id number]) OP Gait Assessment Gait Gait Assistance Required: Contact Guard Assist Distance (Feet) 517 Assistive Devices Assistive Device Gait Belt,4 Wheeled Walker Gait Deviations General Gait Pattern Antalgic,Ataxic,Decreased Stride Length,Decreased Feet Clearance,Flexed Trunk,Lateral Trunk Lean PT-OP-M Strength Start: 10/12/17 18:11 Freq: Status: Active Protocol: Document 11/21/19 09:45 DCW (Rec: 11/21/19 10:19 DCW [id number]) Hip Strength Hip Manual Muscle Testing Right Flexion (L2) 5 Normal Abduction 4 Good Adduction 4 Good Left Flexion (L2) 4+ Good+ Abduction 4 Good Adduction 4 Good Knee Strength Knee Manual Muscle Testing Right Flexion (S2) 4 Good Extension (L3) 4 Good Left Flexion (S2) 4+ Good+ Extension (L3) 4 Good Ankle/Foot Strength Ankle and Foot Manual Muscle Testing Right Dorsiflexion (L4) 2 Poor Plantarflexion (S1) 3+ Fair+ Left Dorsiflexion (L4) 4+ Good+ Plantarflexion (S1) 4 Good PT-OP-Q Treatments Start: 09/28/17 15:21 Freq: Status: Active Protocol: Document 02/06/20 09:45 DCW (Rec: 02/06/20 10:32 DCW [id number]) Gym Equipment Shuttle Recovery Unilateral Squats Resistance 87# Shuttle Recovery Platform Stable Reps/Time x20 each Bilateral Squats Resistance 150# Shuttle Recovery Platform Stable Reps/Time x30 Shuttle Balance 1 Details Blue Comments Wide WILIAN Gait Training Gait Activity 3 Description Ambulate /s AD Device Used none Level of Assistance CGA Distance/Duration 360' Neuro Re-Education Treatment Balance Activities 6 Details Ball/cone pick-up, ball toss PT-OP-T Assessment and Plan Start: 09/28/17 15:21 Freq: Status: Active Protocol: Document 02/06/20 09:45 DCW (Rec: 02/06/20 10:32 DCW [id number]) Physical Therapy Assessment Impairments Impairments Activity Tolerance,Balance, Functional Activities, Functional Mobility,Gait,ROM, Strength Goals Eight Impairment Unassisted Gait Short Term Goal (STG) Pt to ambulate 300' SBA /s AD STG Duration Met Fdc Goal (LTG) Pt to ambulate 400' SBA /s AD LTG Duration 02/19/20 Seven Impairment Donis Short Term Goal (STG) Pt to score 22/56 on Donis Balance scale STG Duration Met Comp Field Case Manager Goal (LTG) Pt to score 35/56 on Donis Balance scale LTG Duration 02/19/20 Six Impairment Static Standing Balance Short Term Goal (STG) Pt to stand independently for 2 minutes STG Duration Met Comp Field Case Manager Goal (LTG) Pt to stand independently for 3 minutes LTG Duration 02/19/20 Five Impairment 6 MWT Fdc Goal (LTG) Pt to ambulate 1000' without rest using 4WW during 6 MWT (06/20/19: 964') LTG Duration 02/19/20 Four Impairment Foot slap Short Term Goal (STG) Pt to regularly wear R AFO to limit foot drop and help normalize gait pattern STG Duration Met Three Impairment Transfers Short Term Goal (STG) Pt to transfer independently from mat<->w/c with no assistive devices STG Duration Met Two Impairment Ankle weakness Comp Field Case Manager Goal (LTG) Pt to display 2/5 MMT in R DF, 4/5 MMT in R PF, and 4+/5 MMT in all other bilateral ankle movements LTG Duration 02/19/20 One Impairment Activity tolerance Fdc Goal (LTG) Pt to tolerate activity up to 15 minutes without a break LTG Duration 02/19/20 Assessment Summary Assessment Pt did very well today, walked his furthest distance without an assistive device for months. Pt also performed much better on the shuttle balance today. Physical Therapy Plan Frequency and Duration Frequency of Treatment 1x/Week Duration of Treatment 3 months Plan of Care Start Date 11/21/19 Plan of Care End Date 02/19/20 Therapeutic Interventions Therapeutic Interventions Aquatic Therapy,Balance Training,Gait Training,Home Exercise Program,Manual Therapy,Neuromuscular Re- education,Soft Tissue Mobilization,Therapeutic Activities,Therapeutic Exercises Next Visit Focus/Plan Next Note Type Treatment Note Next Visit Plan Continue focus on opposing arm swing during gait, increasing activity tolerance, increasing gait /s an AD, and improving balance
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
--- NOTE | 2020-02-20 12:00 | PT.OTN ---
Current Diagnoses Foot drop, right foot (02/20/20) Muscle weakness (generalized) (02/20/20) Unsteadiness on feet (02/20/20) Unspecified abnormalities of gait and mobility (02/20/20) Traumatic subdural hemorrhage with loss of consciousness greater than 24 hours with return to pre-existing conscious level, subsequent encounter (02/20/20) History of falling (02/20/20) Physical Therapy Treatment Note PT-OP-A Visit Information Start: 09/28/17 15:21 Freq: Status: Active Protocol: Document 02/20/20 09:45 DCW (Rec: 02/20/20 12:00 DCW [id number]) Out-Patient Physical Therapy Visit Information Visit Information Visit Type Progress Note Visit Start Time 09:45 Visit Stop Time 10:30 Total Visit Minutes 45 Visit Number 06/09 Number of MANAGER AMBULATORY Visits 0 Evaluation Information Evaluation Date 07/27/17 PT-OP-B Current Condition Start: 09/28/17 15:21 Freq: Status: Active Protocol: Document 10/12/17 13:45 DCW (Rec: 10/12/17 18:33 DCW [id number]) Current Condition History of Current Condition Onset Date 02/05/17 History of Current Condition See Pt's initial evaluation in Therapy Source Current Functional Impairments (Reported) Functional Limitations- Mobility/Gait Transfers:W/C<->Mat Stand- pivot: Independent PT-OP-C Subjective Start: 09/28/17 15:21 Freq: Status: Active Protocol: Document 02/20/20 09:45 DCW (Rec: 02/20/20 12:00 DCW [id number]) OP-PT Subjective Patient Comments Patient Comments I feel pretty good, but I guess I won't know how I'm doing until we're done here in 45 minutes. PT-OP-D Balance Start: 10/12/17 18:11 Freq: Status: Active Protocol: Document 02/20/20 09:45 DCW (Rec: 02/20/20 10:33 DCW [id number]) OP-PT Balance Assessment Standing Balance Standing Balance Comments Double leg, Eyes open: 1 Donis Balance Assessment Evaluation Sitting to Standing Ability Independent w/Hands Unsupported Stance 30 seconds Sitting Unsupported, Feet on Floor Safely- 2 minutes Standing to Sitting Ability Assist, Control w/Hands Transfer Ability Supervision, Verbal Cues Unsupported Stance- Eyes Closed Supervision, 10 seconds Unsupported Stance- Eyes Open Independent, <30 seconds Reaching Forward Standing Safely, 5 inches Pick- Up Object From Floor Supervision Look Behind Shoulder - Standing Turns Sideways Only Turning 360 Degrees Supervision/Verbal Cues Unsupported Stance, Alternating Feet on Assist to Prevent Fall Stair Unsupported Tandem Stance Small Step- 30 seconds Unilateral Leg Stance Lifts Leg/Unable to Hold Total Score Donis Total Score (out of 56 points) 31 Donis Impairment Rating 40 to 59% Impaired (Score 23- 33) Mejia Fall Scale Copyright Permission PT-OP-E Functional Tests Start: 10/12/17 18:11 Freq: Status: Active Protocol: Document 02/20/20 09:45 DCW (Rec: 02/20/20 10:33 DCW [id number]) Functional Tests 6 Minute Walk Test Distance 921' Device Used 4WW PT-OP-G Mobility & Gait Start: 12/23/18 10:02 Freq: Status: Active Protocol: Document 02/20/20 09:45 DCW (Rec: 02/20/20 10:33 DCW [id number]) OP Gait Assessment Gait Gait Assistance Required: Contact Guard Assist Distance (Feet) 295 Assistive Devices Assistive Device None,Gait Belt Gait Deviations General Gait Pattern Antalgic,Ataxic,Decreased Stride Length,Decreased Feet Clearance,Flexed Trunk,Lateral Trunk Lean PT-OP-M Strength Start: 10/12/17 18:11 Freq: Status: Active Protocol: Document 02/20/20 09:45 DCW (Rec: 02/20/20 10:33 DCW [id number]) Hip Strength Hip Manual Muscle Testing Right Flexion (L2) 5 Normal Abduction 4+ Good+ Adduction 5 Normal Left Flexion (L2) 4+ Good+ Abduction 4 Good Adduction 4+ Good+ Knee Strength Knee Manual Muscle Testing Right Flexion (S2) 4 Good Extension (L3) 4+ Good+ Left Flexion (S2) 4+ Good+ Extension (L3) 4+ Good+ Ankle/Foot Strength Ankle and Foot Manual Muscle Testing Right Dorsiflexion (L4) 2 Poor Plantarflexion (S1) 3+ Fair+ Left Dorsiflexion (L4) 4 Good Plantarflexion (S1) 4 Good PT-OP-Q Treatments Start: 09/28/17 15:21 Freq: Status: Active Protocol: Document 02/20/20 09:45 DCW (Rec: 02/20/20 12:00 DCW [id number]) Neuro Re-Education Treatment Other Activities 1 Details Testing Comments 6MWT, MMT, Donis Balance, Static standing PT-OP-T Assessment and Plan Start: 09/28/17 15:21 Freq: Status: Active Protocol: Document 02/20/20 09:45 DCW (Rec: 02/20/20 12:00 [facility] [id number]) Physical Therapy Assessment Impairments Impairments Activity Tolerance,Balance, Functional Activities, Functional Mobility,Gait,ROM, Strength Goals Eight Impairment Unassisted Gait Short Term Goal (STG) Pt to ambulate 300' SBA /s AD STG Duration Met Detention Goal (LTG) Pt to ambulate 400' SBA /s AD LTG Duration 05/21/20 Seven Impairment Donis Short Term Goal (STG) Pt to score 22/56 on Donis Balance scale STG Duration Met [employer] Forces Medical Sergeant Goal (LTG) Pt to score 35/56 on Donis Balance scale LTG Duration 05/21/20 Six Impairment Static Standing Balance Short Term Goal (STG) Pt to stand independently for 2 minutes STG Duration Met [employer] Medical Sergeant Goal (LTG) Pt to stand independently for 3 minutes LTG Duration 03/21/20 Five Impairment 6 MWT [employer] Forces Medical Sergeant Goal (LTG) Pt to ambulate 1000' without rest using 4WW during 6 MWT (02/20/20: 921') LTG Duration 05/21/20 Four Impairment Foot slap Short Term Goal (STG) Pt to regularly wear R AFO to limit foot drop and help normalize gait pattern STG Duration Met Three Impairment Transfers Short Term Goal (STG) Pt to transfer independently from mat<->w/c with no assistive devices STG Duration Met Two Impairment Ankle weakness [employer] Medical Sergeant Goal (LTG) Pt to display 2/5 MMT in R DF, 4/5 MMT in R PF, and 4+/5 MMT in all other bilateral ankle movements LTG Duration 05/21/20 One Impairment Activity tolerance [employer] Medical Sergeant Goal (LTG) Pt to tolerate activity up to 15 minutes without a break LTG Duration 05/21/20 Assessment Summary Assessment Testing showed pt has improved back to his pre-Covid shutdown levels. Pt had declined while in quarantine, but today increased 6 MWT from 517' to 921', Static standing from 40 to 1'18, and Donis Balance score from 26/56 to 31 /56, which are all similar to pre-shutdown levels. Pt had been consistently at these levels, and if he does not show improvement by next reassessment, may be time for discharge due to progress plateau. Physical Therapy Plan Frequency and Duration Frequency of Treatment 1x/Week Duration of Treatment 3 months Plan of Care Start Date 02/20/20 Plan of Care End Date 05/21/20 Therapeutic Interventions Therapeutic Interventions Aquatic Therapy,Balance Training,Gait Training,Home Exercise Program,Manual Therapy,Neuromuscular Re- education,Soft Tissue Mobilization,Therapeutic Activities,Therapeutic Exercises Next Visit Focus/Plan Next Note Type Treatment Note Next Visit Plan Continue focus on opposing arm swing during gait, increasing activity tolerance, increasing gait /s an AD, and improving balance
--- NOTE | 2020-02-20 12:00 | PT.OPPOC ---
Physical, Occupational & Speech Therapy At 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 with return to pre-existing conscious level, subsequent encounter (02/20/20) History of falling (02/20/20) Visit Care Team Role Provider Type Elver Eubanks MD Attending Provider Physician Family Provider Primary Care Provider Specialty: Internal Medicine Address: [address] [place] [address], [facility] Email: [email or web address] Plan Of Care PT-OP-T Assessment and Plan Start: 09/28/17 15:21 Freq: Status: Active Protocol: Document 02/20/20 09:45 DCW (Rec: 02/20/20 12:00 DCW [id number]) Physical Therapy Assessment Impairments Impairments Activity Tolerance,Balance, Functional Activities, Functional Mobility,Gait,ROM, Strength Goals Eight Impairment Unassisted Gait Short Term Goal (STG) Pt to ambulate 300' SBA /s AD STG Duration Met Fdc Goal (LTG) Pt to ambulate 400' SBA /s AD LTG Duration 05/21/20 Seven Impairment Donis Short Term Goal (STG) Pt to score 22/56 on Donis Balance scale STG Duration Met Sponge Hooker Goal (LTG) Pt to score 35/56 on Donis Balance scale LTG Duration 05/21/20 Six Impairment Static Standing Balance Short Term Goal (STG) Pt to stand independently for 2 minutes STG Duration Met Fdc Goal (LTG) Pt to stand independently for 3 minutes LTG Duration 03/21/20 Five Impairment 6 MWT Fdc Goal (LTG) Pt to ambulate 1000' without rest using 4WW during 6 MWT (02/20/20: 921') LTG Duration 05/21/20 Four Impairment Foot slap Short Term Goal (STG) Pt to regularly wear R AFO to limit foot drop and help normalize gait pattern STG Duration Met Three Impairment Transfers Short Term Goal (STG) Pt to transfer independently from mat<->w/c with no assistive devices STG Duration Met Two Impairment Ankle weakness Fdc Goal (LTG) Pt to display 2/5 MMT in R DF, 4/5 MMT in R PF, and 4+/5 MMT in all other bilateral ankle movements LTG Duration 05/21/20 One Impairment Activity tolerance Fdc Goal (LTG) Pt to tolerate activity up to 15 minutes without a break LTG Duration 05/21/20 Assessment Summary Assessment Testing showed pt has improved back to his pre-Covid shutdown levels. Pt had declined while in quarantine, but today increased 6 MWT from 517' to 921', Static standing from 40 to 1'18, and Donis Balance score from 26/56 to 31 /56, which are all similar to pre-shutdown levels. Pt had been consistently at these levels, and if he does not show improvement by next reassessment, may be time for discharge due to progress plateau. Physical Therapy Plan Frequency and Duration Frequency of Treatment 1x/Week Duration of Treatment 3 months Plan of Care Start Date 02/20/20 Plan of Care End Date 05/21/20 Therapeutic Interventions Therapeutic Interventions Aquatic Therapy,Balance Training,Gait Training,Home Exercise Program,Manual Therapy,Neuromuscular Re- education,Soft Tissue Mobilization,Therapeutic Activities,Therapeutic Exercises Next Visit Focus/Plan Next Note Type Treatment Note Next Visit Plan Continue focus on opposing arm swing during gait, increasing activity tolerance, increasing gait /s an AD, and improving balance Plan of Care Dates Plan of Care Start Date 02/20/20 Plan of Care End Date 05/21/20 Electronically Signed by: Jose aMrtin Freitas, PT 02/20/20 1200 Please Sign and Return: I have reviewed this Plan of Care and certify that the skilled therapy services above are required to meet the patient?s needs. Physician Signature Date Printed Name and Credentials Clinical Instructor Signature Printed Name and Credentials
--- NOTE | 2020-02-27 10:29 | PT.OTN ---
Current Diagnoses Foot drop, right foot (02/27/20) Muscle weakness (generalized) (02/27/20) Unsteadiness on feet (02/27/20) Unspecified abnormalities of gait and mobility (02/27/20) Traumatic subdural hemorrhage with loss of consciousness greater than 24 hours with return to pre-existing conscious level, subsequent encounter (02/27/20) History of falling (02/27/20) Physical Therapy Treatment Note PT-OP-A Visit Information Start: 09/28/17 15:21 Freq: Status: Active Protocol: Document 02/27/20 09:45 DCW (Rec: 02/27/20 10:29 DCW [id number]) Out-Patient Physical Therapy Visit Information Visit Information Visit Type Treatment Note Visit Start Time 09:45 Visit Stop Time 10:30 Total Visit Minutes 45 Visit Number 07/10 Number of INSULATION ESTIMATOR Visits 0 Evaluation Information Evaluation Date 07/27/17 PT-OP-B Current Condition Start: 09/28/17 15:21 Freq: Status: Active Protocol: Document 10/12/17 13:45 DCW (Rec: 10/12/17 18:33 DCW [id number]) Current Condition History of Current Condition Onset Date 02/05/17 History of Current Condition See Pt's initial evaluation in Therapy Source Current Functional Impairments (Reported) Functional Limitations- Mobility/Gait Transfers:W/C<->Mat Stand- pivot: Independent PT-OP-C Subjective Start: 09/28/17 15:21 Freq: Status: Active Protocol: Document 02/27/20 09:45 DCW (Rec: 02/27/20 10:29 DCW [id number]) OP-PT Subjective Patient Comments Patient Comments Pt notes he think I'm feeling alright today, I never quite know. PT-OP-D Balance Start: 10/12/17 18:11 Freq: Status: Active Protocol: Document 02/20/20 09:45 DCW (Rec: 02/20/20 10:33 DCW [id number]) OP-PT Balance Assessment Standing Balance Standing Balance Comments Double leg, Eyes open: 1 Donis Balance Assessment Evaluation Sitting to Standing Ability Independent w/Hands Unsupported Stance 30 seconds Sitting Unsupported, Feet on Floor Safely- 2 minutes Standing to Sitting Ability Assist, Control w/Hands Transfer Ability Supervision, Verbal Cues Unsupported Stance- Eyes Closed Supervision, 10 seconds Unsupported Stance- Eyes Open Independent, <30 seconds Reaching Forward Standing Safely, 5 inches Pick- Up Object From Floor Supervision Look Behind Shoulder - Standing Turns Sideways Only Turning 360 Degrees Supervision/Verbal Cues Unsupported Stance, Alternating Feet on Assist to Prevent Fall Stair Unsupported Tandem Stance Small Step- 30 seconds Unilateral Leg Stance Lifts Leg/Unable to Hold Total Score Donis Total Score (out of 56 points) 31 Donis Impairment Rating 40 to 59% Impaired (Score 23- 33) Mejia Fall Scale Copyright Permission PT-OP-E Functional Tests Start: 10/12/17 18:11 Freq: Status: Active Protocol: Document 02/20/20 09:45 DCW (Rec: 02/20/20 10:33 DCW [id number]) Functional Tests 6 Minute Walk Test Distance 921' Device Used 4WW PT-OP-G Mobility & Gait Start: 12/23/18 10:02 Freq: Status: Active Protocol: Document 02/20/20 09:45 DCW (Rec: 02/20/20 10:33 DCW [id number]) OP Gait Assessment Gait Gait Assistance Required: Contact Guard Assist Distance (Feet) 295 Assistive Devices Assistive Device None,Gait Belt Gait Deviations General Gait Pattern Antalgic,Ataxic,Decreased Stride Length,Decreased Feet Clearance,Flexed Trunk,Lateral Trunk Lean PT-OP-M Strength Start: 10/12/17 18:11 Freq: Status: Active Protocol: Document 02/20/20 09:45 DCW (Rec: 02/20/20 10:33 DCW [id number]) Hip Strength Hip Manual Muscle Testing Right Flexion (L2) 5 Normal Abduction 4+ Good+ Adduction 5 Normal Left Flexion (L2) 4+ Good+ Abduction 4 Good Adduction 4+ Good+ Knee Strength Knee Manual Muscle Testing Right Flexion (S2) 4 Good Extension (L3) 4+ Good+ Left Flexion (S2) 4+ Good+ Extension (L3) 4+ Good+ Ankle/Foot Strength Ankle and Foot Manual Muscle Testing Right Dorsiflexion (L4) 2 Poor Plantarflexion (S1) 3+ Fair+ Left Dorsiflexion (L4) 4 Good Plantarflexion (S1) 4 Good PT-OP-Q Treatments Start: 09/28/17 15:21 Freq: Status: Active Protocol: Document 02/27/20 09:45 DCW (Rec: 02/27/20 10:29 DCW [id number]) Gym Equipment Shuttle Recovery Bilateral Heel Raises Resistance 100# Reps/Time x60 Unilateral Squats Resistance 87# Shuttle Recovery Platform Stable Reps/Time x20 each Bilateral Squats Resistance 150# Shuttle Recovery Platform Stable Reps/Time x30 Shuttle Balance 1 Details Blue Comments Wide WILIAN Gait Training Gait Activity 3 Description Ambulate /s AD Device Used none Level of Assistance CGA Distance/Duration 260' Neuro Re-Education Treatment Balance Activities 6 Details Ball/cone pick-up, ball toss PT-OP-T Assessment and Plan Start: 09/28/17 15:21 Freq: Status: Active Protocol: Document 02/27/20 09:45 DCW (Rec: 02/27/20 10:29 DCW [id number]) Physical Therapy Assessment Impairments Impairments Activity Tolerance,Balance, Functional Activities, Functional Mobility,Gait,ROM, Strength Goals Eight Impairment Unassisted Gait Short Term Goal (STG) Pt to ambulate 300' SBA /s AD STG Duration Met Repairer And Checker Goal (LTG) Pt to ambulate 400' SBA /s AD LTG Duration 05/21/20 Seven Impairment Donis Short Term Goal (STG) Pt to score 22/56 on Donis Balance scale STG Duration Met Fpc Goal (LTG) Pt to score 35/56 on Donis Balance scale LTG Duration 05/21/20 Six Impairment Static Standing Balance Short Term Goal (STG) Pt to stand independently for 2 minutes STG Duration Met Fpc Goal (LTG) Pt to stand independently for 3 minutes LTG Duration 03/21/20 Five Impairment 6 MWT Repairer And Checker Goal (LTG) Pt to ambulate 1000' without rest using 4WW during 6 MWT (02/20/20: 921') LTG Duration 05/21/20 Four Impairment Foot slap Short Term Goal (STG) Pt to regularly wear R AFO to limit foot drop and help normalize gait pattern STG Duration Met Three Impairment Transfers Short Term Goal (STG) Pt to transfer independently from mat<->w/c with no assistive devices STG Duration Met Two Impairment Ankle weakness Fpc Goal (LTG) Pt to display 2/5 MMT in R DF, 4/5 MMT in R PF, and 4+/5 MMT in all other bilateral ankle movements LTG Duration 05/21/20 One Impairment Activity tolerance Fpc Goal (LTG) Pt to tolerate activity up to 15 minutes without a break LTG Duration 05/21/20 Assessment Summary Assessment Pt a little josias fatigued today , less ambulation distance and had an increased retro lean trying to maintain standing balance. Physical Therapy Plan Frequency and Duration Frequency of Treatment 1x/Week Duration of Treatment 3 months Plan of Care Start Date 02/20/20 Plan of Care End Date 05/21/20 Therapeutic Interventions Therapeutic Interventions Aquatic Therapy,Balance Training,Gait Training,Home Exercise Program,Manual Therapy,Neuromuscular Re- education,Soft Tissue Mobilization,Therapeutic Activities,Therapeutic Exercises Next Visit Focus/Plan Next Note Type Treatment Note Next Visit Plan Continue focus on opposing arm swing during gait, increasing activity tolerance, increasing gait /s an AD, and improving balance
--- NOTE | 2020-03-06 10:31 | PT.OTN ---
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 greater than 24 hours with return to pre-existing conscious level, subsequent encounter (03/06/20) History of falling (03/06/20) Physical Therapy Treatment Note PT-OP-A Visit Information Start: 09/28/17 15:21 Freq: Status: Active Protocol: Document 03/06/20 09:45 DCW (Rec: 03/06/20 10:31 DCW [id number]) Out-Patient Physical Therapy Visit Information Visit Information Visit Type Treatment Note Visit Start Time 09:45 Visit Stop Time 10:30 Total Visit Minutes 45 Visit Number 3/ Number of COOKER OPERATOR Visits 0 Evaluation Information Evaluation Date 07/27/17 PT-OP-B Current Condition Start: 09/28/17 15:21 Freq: Status: Active Protocol: Document 10/12/17 13:45 DCW (Rec: 10/12/17 18:33 DCW [id number]) Current Condition History of Current Condition Onset Date 02/05/17 History of Current Condition See Pt's initial evaluation in Therapy Source Current Functional Impairments (Reported) Functional Limitations- Mobility/Gait Transfers:W/C<->Mat Stand- pivot: Independent PT-OP-C Subjective Start: 09/28/17 15:21 Freq: Status: Active Protocol: Document 03/06/20 09:45 DCW (Rec: 03/06/20 10:31 DCW [id number]) OP-PT Subjective Patient Comments Patient Comments Pt feels like he is doing pretty well today. PT-OP-D Balance Start: 10/12/17 18:11 Freq: Status: Active Protocol: Document 02/20/20 09:45 DCW (Rec: 02/20/20 10:33 DCW [id number]) OP-PT Balance Assessment Standing Balance Standing Balance Comments Double leg, Eyes open: Donis Balance Assessment Evaluation Sitting to Standing Ability Independent w/Hands Unsupported Stance 30 seconds Sitting Unsupported, Feet on Floor Safely- 2 minutes Standing to Sitting Ability Assist, Control w/Hands Transfer Ability Supervision, Verbal Cues Unsupported Stance- Eyes Closed Supervision, 10 seconds Unsupported Stance- Eyes Open Independent, <30 seconds Reaching Forward Standing Safely, 5 inches Pick- Up Object From Floor Supervision Look Behind Shoulder - Standing Turns Sideways Only Turning 360 Degrees Supervision/Verbal Cues Unsupported Stance, Alternating Feet on Assist to Prevent Fall Stair Unsupported Tandem Stance Small Step- 30 seconds Unilateral Leg Stance Lifts Leg/Unable to Hold Total Score Donis Total Score (out of 56 points) 31 Donis Impairment Rating 40 to 59% Impaired (Score 23- 33) Mejia Fall Scale Copyright Permission PT-OP-E Functional Tests Start: 10/12/17 18:11 Freq: Status: Active Protocol: Document 02/20/20 09:45 DCW (Rec: 02/20/20 10:33 DCW [id number]) Functional Tests 6 Minute Walk Test Distance 921' Device Used 4WW PT-OP-G Mobility & Gait Start: 12/23/18 10:02 Freq: Status: Active Protocol: Document 02/20/20 09:45 DCW (Rec: 02/20/20 10:33 DCW [id number]) OP Gait Assessment Gait Gait Assistance Required: Contact Guard Assist Distance (Feet) 295 Assistive Devices Assistive Device None,Gait Belt Gait Deviations General Gait Pattern Antalgic,Ataxic,Decreased Stride Length,Decreased Feet Clearance,Flexed Trunk,Lateral Trunk Lean PT-OP-M Strength Start: 10/12/17 18:11 Freq: Status: Active Protocol: Document 02/20/20 09:45 DCW (Rec: 02/20/20 10:33 DCW [id number]) Hip Strength Hip Manual Muscle Testing Right Flexion (L2) 5 Normal Abduction 4+ Good+ Adduction 5 Normal Left Flexion (L2) 4+ Good+ Abduction 4 Good Adduction 4+ Good+ Knee Strength Knee Manual Muscle Testing Right Flexion (S2) 4 Good Extension (L3) 4+ Good+ Left Flexion (S2) 4+ Good+ Extension (L3) 4+ Good+ Ankle/Foot Strength Ankle and Foot Manual Muscle Testing Right Dorsiflexion (L4) 2 Poor Plantarflexion (S1) 3+ Fair+ Left Dorsiflexion (L4) 4 Good Plantarflexion (S1) 4 Good PT-OP-Q Treatments Start: 09/28/17 15:21 Freq: Status: Active Protocol: Document 03/06/20 09:45 DCW (Rec: 03/06/20 10:31 DCW [id number]) Gym Equipment Shuttle Recovery Bilateral Heel Raises Resistance 100# Reps/Time x60 Unilateral Squats Resistance 87# Shuttle Recovery Platform Stable Reps/Time x20 each Bilateral Squats Resistance 150# Shuttle Recovery Platform Stable Reps/Time x30 Shuttle Balance 1 Details Blue Comments Wide WILIAN Gait Training Gait Activity 3 Description Ambulate /s AD Device Used none Level of Assistance CGA Distance/Duration 260' Neuro Re-Education Treatment Balance Activities 6 Details Ball/cone pick-up, ball toss PT-OP-T Assessment and Plan Start: 09/28/17 15:21 Freq: Status: Active Protocol: Document 03/06/20 09:45 DCW (Rec: 03/06/20 10:31 DCW [id number]) Physical Therapy Assessment Impairments Impairments Activity Tolerance,Balance, Functional Activities, Functional Mobility,Gait,ROM, Strength Goals Eight Impairment Unassisted Gait Short Term Goal (STG) Pt to ambulate 300' SBA /s AD STG Duration Met Correction Goal (LTG) Pt to ambulate 400' SBA /s AD LTG Duration 05/21/20 Seven Impairment Donis Short Term Goal (STG) Pt to score 22/56 on Donis Balance scale STG Duration Met Race Car Driver Goal (LTG) Pt to score 35/56 on Donis Balance scale LTG Duration 05/21/20 Six Impairment Static Standing Balance Short Term Goal (STG) Pt to stand independently for 2 minutes STG Duration Met Race Car Driver Goal (LTG) Pt to stand independently for 3 minutes LTG Duration 03/21/20 Five Impairment 6 MWT Race Car Driver Goal (LTG) Pt to ambulate 1000' without rest using 4WW during 6 MWT (02/20/20: 921') LTG Duration 05/21/20 Four Impairment Foot slap Short Term Goal (STG) Pt to regularly wear R AFO to limit foot drop and help normalize gait pattern STG Duration Met Three Impairment Transfers Short Term Goal (STG) Pt to transfer independently from mat<->w/c with no assistive devices STG Duration Met Two Impairment Ankle weakness Race Car Driver Goal (LTG) Pt to display 2/5 MMT in R DF, 4/5 MMT in R PF, and 4+/5 MMT in all other bilateral ankle movements LTG Duration 05/21/20 One Impairment Activity tolerance Race Car Driver Goal (LTG) Pt to tolerate activity up to 15 minutes without a break LTG Duration 05/21/20 Assessment Summary Assessment Pt struggled today with some of his balance and standing activities, but overall tolerated treatment fairly well. Physical Therapy Plan Frequency and Duration Frequency of Treatment 1x/Week Duration of Treatment 3 months Plan of Care Start Date 02/20/20 Plan of Care End Date 05/21/20 Therapeutic Interventions Therapeutic Interventions Aquatic Therapy,Balance Training,Gait Training,Home Exercise Program,Manual Therapy,Neuromuscular Re- education,Soft Tissue Mobilization,Therapeutic Activities,Therapeutic Exercises Next Visit Focus/Plan Next Note Type Treatment Note Next Visit Plan Continue focus on opposing arm swing during gait, increasing activity tolerance, increasing gait /s an AD, and improving balance
--- NOTE | 2020-03-13 10:32 | PT.OTN ---
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 with return to pre-existing conscious level, subsequent encounter (03/13/20) History of falling (03/13/20) Physical Therapy Treatment Note PT-OP-A Visit Information Start: 09/28/17 15:21 Freq: Status: Active Protocol: Document 03/13/20 09:45 DCW (Rec: 03/13/20 10:32 DCW [id number]) Out-Patient Physical Therapy Visit Information Visit Information Visit Type Treatment Note Visit Start Time 09:45 Visit Stop Time 10:30 Total Visit Minutes 45 Visit Number 4/ Number of PRODUCTION LINE ASSEMBLER Visits 0 Evaluation Information Evaluation Date 07/27/17 PT-OP-B Current Condition Start: 09/28/17 15:21 Freq: Status: Active Protocol: Document 10/12/17 13:45 DCW (Rec: 10/12/17 18:33 DCW [id number]) Current Condition History of Current Condition Onset Date 02/05/17 History of Current Condition See Pt's initial evaluation in Therapy Source Current Functional Impairments (Reported) Functional Limitations- Mobility/Gait Transfers:W/C<->Mat Stand- pivot: Independent PT-OP-C Subjective Start: 09/28/17 15:21 Freq: Status: Active Protocol: Document 03/13/20 09:45 DCW (Rec: 03/13/20 10:32 DCW [id number]) OP-PT Subjective Patient Comments Patient Comments Pt notes he is tired today. PT-OP-D Balance Start: 10/12/17 18:11 Freq: Status: Active Protocol: Document 02/20/20 09:45 DCW (Rec: 02/20/20 10:33 DCW [id number]) OP-PT Balance Assessment Standing Balance Standing Balance Comments Double leg, Eyes open: Donis Balance Assessment Evaluation Sitting to Standing Ability Independent w/Hands Unsupported Stance 30 seconds Sitting Unsupported, Feet on Floor Safely- 2 minutes Standing to Sitting Ability Assist, Control w/Hands Transfer Ability Supervision, Verbal Cues Unsupported Stance- Eyes Closed Supervision, 10 seconds Unsupported Stance- Eyes Open Independent, <30 seconds Reaching Forward Standing Safely, 5 inches Pick- Up Object From Floor Supervision Look Behind Shoulder - Standing Turns Sideways Only Turning 360 Degrees Supervision/Verbal Cues Unsupported Stance, Alternating Feet on Assist to Prevent Fall Stair Unsupported Tandem Stance Small Step- 30 seconds Unilateral Leg Stance Lifts Leg/Unable to Hold Total Score Donis Total Score (out of 56 points) 31 Donis Impairment Rating 40 to 59% Impaired (Score 23- 33) Mejia Fall Scale Copyright Permission PT-OP-E Functional Tests Start: 10/12/17 18:11 Freq: Status: Active Protocol: Document 02/20/20 09:45 DCW (Rec: 02/20/20 10:33 DCW [id number]) Functional Tests 6 Minute Walk Test Distance 921' Device Used 4WW PT-OP-G Mobility & Gait Start: 12/23/18 10:02 Freq: Status: Active Protocol: Document 02/20/20 09:45 DCW (Rec: 02/20/20 10:33 DCW [id number]) OP Gait Assessment Gait Gait Assistance Required: Contact Guard Assist Distance (Feet) 295 Assistive Devices Assistive Device None,Gait Belt Gait Deviations General Gait Pattern Antalgic,Ataxic,Decreased Stride Length,Decreased Feet Clearance,Flexed Trunk,Lateral Trunk Lean PT-OP-M Strength Start: 10/12/17 18:11 Freq: Status: Active Protocol: Document 02/20/20 09:45 DCW (Rec: 02/20/20 10:33 DCW [id number]) Hip Strength Hip Manual Muscle Testing Right Flexion (L2) 5 Normal Abduction 4+ Good+ Adduction 5 Normal Left Flexion (L2) 4+ Good+ Abduction 4 Good Adduction 4+ Good+ Knee Strength Knee Manual Muscle Testing Right Flexion (S2) 4 Good Extension (L3) 4+ Good+ Left Flexion (S2) 4+ Good+ Extension (L3) 4+ Good+ Ankle/Foot Strength Ankle and Foot Manual Muscle Testing Right Dorsiflexion (L4) 2 Poor Plantarflexion (S1) 3+ Fair+ Left Dorsiflexion (L4) 4 Good Plantarflexion (S1) 4 Good PT-OP-Q Treatments Start: 09/28/17 15:21 Freq: Status: Active Protocol: Document 03/13/20 09:45 DCW (Rec: 03/13/20 10:32 DCW [id number]) Gym Equipment Shuttle Balance 1 Details Blue Comments Wide WILIAN Therapeutic Exercises Other Exercises 2 Other Exercise Name Hurdles Equipment Used in // bars Comments fwd, lateral Step-ups Other Exercise Name Toe-taps Resistance 5# Equipment Used 6 step Reps/Minutes x20 each foot 1 Other Exercise Name Resisted Side-stepping Side bilateral Resistance Green Equipment Used T-band Gait Training Gait Activity 3 Description Ambulate /s AD Device Used none Level of Assistance CGA Distance/Duration 300' Neuro Re-Education Treatment Balance Activities 6 Details Ball/cone pick-up, ball toss PT-OP-T Assessment and Plan Start: 09/28/17 15:21 Freq: Status: Active Protocol: Document 03/13/20 09:45 DCW (Rec: 03/13/20 10:32 DCW [id number]) Physical Therapy Assessment Impairments Impairments Activity Tolerance,Balance, Functional Activities, Functional Mobility,Gait,ROM, Strength Goals Eight Impairment Unassisted Gait Short Term Goal (STG) Pt to ambulate 300' SBA /s AD STG Duration Met Flap Presser Goal (LTG) Pt to ambulate 400' SBA /s AD LTG Duration 05/21/20 Seven Impairment Donis Short Term Goal (STG) Pt to score 22/56 on Donis Balance scale STG Duration Met Flap Presser Goal (LTG) Pt to score 35/56 on Donis Balance scale LTG Duration 05/21/20 Six Impairment Static Standing Balance Short Term Goal (STG) Pt to stand independently for 2 minutes STG Duration Met Flap Presser Goal (LTG) Pt to stand independently for 3 minutes LTG Duration 03/21/20 Five Impairment 6 MWT Intermediate Goal (LTG) Pt to ambulate 1000' without rest using 4WW during 6 MWT (02/20/20: 921') LTG Duration 05/21/20 Four Impairment Foot slap Short Term Goal (STG) Pt to regularly wear R AFO to limit foot drop and help normalize gait pattern STG Duration Met Three Impairment Transfers Short Term Goal (STG) Pt to transfer independently from mat<->w/c with no assistive devices STG Duration Met Two Impairment Ankle weakness Flap Presser Goal (LTG) Pt to display 2/5 MMT in R DF, 4/5 MMT in R PF, and 4+/5 MMT in all other bilateral ankle movements LTG Duration 05/21/20 One Impairment Activity tolerance Intermediate Goal (LTG) Pt to tolerate activity up to 15 minutes without a break LTG Duration 05/21/20 Assessment Summary Assessment Pt did well today, continues to increase his device-free ambulation distance, and is doing well standing on shuttle balance. Physical Therapy Plan Frequency and Duration Frequency of Treatment 1x/Week Duration of Treatment 3 months Plan of Care Start Date 02/20/20 Plan of Care End Date 05/21/20 Therapeutic Interventions Therapeutic Interventions Aquatic Therapy,Balance Training,Gait Training,Home Exercise Program,Manual Therapy,Neuromuscular Re- education,Soft Tissue Mobilization,Therapeutic Activities,Therapeutic Exercises Next Visit Focus/Plan Next Note Type Treatment Note Next Visit Plan Continue focus on opposing arm swing during gait, increasing activity tolerance, increasing gait /s an AD, and improving balance
--- NOTE | 2020-03-19 10:32 | PT.OTN ---
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 with return to pre-existing conscious level, subsequent encounter (03/19/20) History of falling (03/19/20) Physical Therapy Treatment Note PT-OP-A Visit Information Start: 09/28/17 15:21 Freq: Status: Active Protocol: Document 03/19/20 10:32 DLM (Rec: 03/20/20 08:31 DLM [id number]) Out-Patient Physical Therapy Visit Information Visit Information Visit Type Treatment Note Visit Start Time 10:32 Visit Stop Time 11:15 Total Visit Minutes 43 Visit Number 10/07 Number of EXECUTIVE SEARCH CONSULTANT Visits 0 Evaluation Information Evaluation Date 07/27/17 PT-OP-B Current Condition Start: 09/28/17 15:21 Freq: Status: Active Protocol: Document 10/12/17 13:45 DCW (Rec: 10/12/17 18:33 DCW [id number]) Current Condition History of Current Condition Onset Date 02/05/17 History of Current Condition See Pt's initial evaluation in Therapy Source Current Functional Impairments (Reported) Functional Limitations- Mobility/Gait Transfers:W/C<->Mat Stand- pivot: Independent PT-OP-C Subjective Start: 09/28/17 15:21 Freq: Status: Active Protocol: Document 03/19/20 10:32 DLM (Rec: 03/20/20 08:31 DLM [id number]) OP-PT Subjective Patient Comments Patient Comments He feels like therapy helps him. PT-OP-D Balance Start: 10/12/17 18:11 Freq: Status: Active Protocol: Document 02/20/20 09:45 DCW (Rec: 02/20/20 10:33 DCW [id number]) OP-PT Balance Assessment Standing Balance Standing Balance Comments Double leg, Eyes open: Donis Balance Assessment Evaluation Sitting to Standing Ability Independent w/Hands Unsupported Stance 30 seconds Sitting Unsupported, Feet on Floor Safely- 2 minutes Standing to Sitting Ability Assist, Control w/Hands Transfer Ability Supervision, Verbal Cues Unsupported Stance- Eyes Closed Supervision, 10 seconds Unsupported Stance- Eyes Open Independent, <30 seconds Reaching Forward Standing Safely, 5 inches Pick- Up Object From Floor Supervision Look Behind Shoulder - Standing Turns Sideways Only Turning 360 Degrees Supervision/Verbal Cues Unsupported Stance, Alternating Feet on Assist to Prevent Fall Stair Unsupported Tandem Stance Small Step- 30 seconds Unilateral Leg Stance Lifts Leg/Unable to Hold Total Score Donis Total Score (out of 56 points) 31 Donis Impairment Rating 40 to 59% Impaired (Score 23- 33) Mejia Fall Scale Copyright Permission PT-OP-E Functional Tests Start: 10/12/17 18:11 Freq: Status: Active Protocol: Document 02/20/20 09:45 DCW (Rec: 02/20/20 10:33 DCW [id number]) Functional Tests 6 Minute Walk Test Distance 921' Device Used 4WW PT-OP-G Mobility & Gait Start: 12/23/18 10:02 Freq: Status: Active Protocol: Document 02/20/20 09:45 DCW (Rec: 02/20/20 10:33 DCW [id number]) OP Gait Assessment Gait Gait Assistance Required: Contact Guard Assist Distance (Feet) 295 Assistive Devices Assistive Device None,Gait Belt Gait Deviations General Gait Pattern Antalgic,Ataxic,Decreased Stride Length,Decreased Feet Clearance,Flexed Trunk,Lateral Trunk Lean PT-OP-M Strength Start: 10/12/17 18:11 Freq: Status: Active Protocol: Document 02/20/20 09:45 DCW (Rec: 02/20/20 10:33 DCW [id number]) Hip Strength Hip Manual Muscle Testing Right Flexion (L2) 5 Normal Abduction 4+ Good+ Adduction 5 Normal Left Flexion (L2) 4+ Good+ Abduction 4 Good Adduction 4+ Good+ Knee Strength Knee Manual Muscle Testing Right Flexion (S2) 4 Good Extension (L3) 4+ Good+ Left Flexion (S2) 4+ Good+ Extension (L3) 4+ Good+ Ankle/Foot Strength Ankle and Foot Manual Muscle Testing Right Dorsiflexion (L4) 2 Poor Plantarflexion (S1) 3+ Fair+ Left Dorsiflexion (L4) 4 Good Plantarflexion (S1) 4 Good PT-OP-Q Treatments Start: 09/28/17 15:21 Freq: Status: Active Protocol: Document 03/19/20 10:32 DLM (Rec: 03/20/20 08:31 DLM [id number]) Therapeutic Exercises Other Exercises 2 Other Exercise Name Hurdles Equipment Used in // bars Comments fwd, lateral Step-ups Other Exercise Name Toe-taps Resistance 5# Equipment Used 6 step Reps/Minutes x20 each foot Comments // bars 1 Other Exercise Name Resisted Side-stepping Side bilateral Resistance Green Equipment Used T-band Comments // bars Gait Training Gait Activity 2 Description Gait with 4WW Device Used 4WW Level of Assistance CG assist Surface level Treatment Focus posture, step length, left foot clearance Comments left foot drag becomes severe as he fatigues causing him to trip, very difficult for pt to manage as he fatigued PT-OP-T Assessment and Plan Start: 09/28/17 15:21 Freq: Status: Active Protocol: Document 03/19/20 10:32 DLM (Rec: 03/20/20 08:31 DLM [id number]) Physical Therapy Assessment Goals Eight Impairment Unassisted Gait Short Term Goal (STG) Pt to ambulate 300' SBA /s AD STG Duration Met Marine Engineering Consultant Goal (LTG) Pt to ambulate 400' SBA /s AD LTG Duration 05/21/20 Seven Impairment Donis Short Term Goal (STG) Pt to score 22/56 on Donis Balance scale STG Duration Met Marine Engineering Consultant Goal (LTG) Pt to score 35/56 on Donis Balance scale LTG Duration 05/21/20 Six Impairment Static Standing Balance Short Term Goal (STG) Pt to stand independently for 2 minutes STG Duration Met Marine Engineering Consultant Goal (LTG) Pt to stand independently for 3 minutes LTG Duration 03/21/20 Five Impairment 6 MWT Alf Goal (LTG) Pt to ambulate 1000' without rest using 4WW during 6 MWT (02/20/20: 921') LTG Duration 05/21/20 Four Impairment Foot slap Short Term Goal (STG) Pt to regularly wear R AFO to limit foot drop and help normalize gait pattern STG Duration Met Three Impairment Transfers Short Term Goal (STG) Pt to transfer independently from mat<->w/c with no assistive devices STG Duration Met Two Impairment Ankle weakness Marine Engineering Consultant Goal (LTG) Pt to display 2/5 MMT in R DF, 4/5 MMT in R PF, and 4+/5 MMT in all other bilateral ankle movements LTG Duration 05/21/20 One Impairment Activity tolerance Marine Engineering Consultant Goal (LTG) Pt to tolerate activity up to 15 minutes without a break LTG Duration 05/21/20 Progress Towards Goals Progress Towards Goals Slow Progress due to Activity Tolerance Progress Comments he gets short of breath with each activity and needs seated rest breaks to recover Assessment Summary Assessment Performed standing LE activities before gait this visit and pt was too fatigued to be able to ambulate without 4WW. He tolerated treatment well with rest breaks between activities. He shows good effort with all of his activities. Physical Therapy Plan Frequency and Duration Frequency of Treatment 1x/Week Duration of Treatment 3 months Plan of Care Start Date 02/20/20 Plan of Care End Date 05/21/20 Therapeutic Interventions Therapeutic Interventions Aquatic Therapy,Balance Training,Gait Training,Home Exercise Program,Manual Therapy,Neuromuscular Re- education,Soft Tissue Mobilization,Therapeutic Activities,Therapeutic Exercises Next Visit Focus/Plan Next Note Type Treatment Note Next Visit Plan Continue focus on opposing arm swing during gait, increasing activity tolerance, increasing gait /s an AD, and improving balance
--- NOTE | 2020-03-26 11:15 | PT.OTN ---
Current Diagnoses Foot drop, right foot (03/26/20) Muscle weakness (generalized) (03/26/20) Unsteadiness on feet (03/26/20) Unspecified abnormalities of gait and mobility (03/26/20) Traumatic subdural hemorrhage with loss of consciousness greater than 24 hours with return to pre-existing conscious level, subsequent encounter (03/26/20) History of falling (03/26/20) Physical Therapy Treatment Note PT-OP-A Visit Information Start: 09/28/17 15:21 Freq: Status: Active Protocol: Document 03/26/20 10:30 DCW (Rec: 03/26/20 11:14 DCW [id number]) Out-Patient Physical Therapy Visit Information Visit Information Visit Type Treatment Note Visit Start Time 10:30 Visit Stop Time 11:15 Total Visit Minutes 45 Visit Number 11/07 Number of PROJECT ARCHITECT Visits 0 Evaluation Information Evaluation Date 07/27/17 PT-OP-B Current Condition Start: 09/28/17 15:21 Freq: Status: Active Protocol: Document 10/12/17 13:45 DCW (Rec: 10/12/17 18:33 DCW [id number]) Current Condition History of Current Condition Onset Date 02/05/17 History of Current Condition See Pt's initial evaluation in Therapy Source Current Functional Impairments (Reported) Functional Limitations- Mobility/Gait Transfers:W/C<->Mat Stand- pivot: Independent PT-OP-C Subjective Start: 09/28/17 15:21 Freq: Status: Active Protocol: Document 03/26/20 10:30 DCW (Rec: 03/26/20 11:14 DCW [id number]) OP-PT Subjective Patient Comments Patient Comments I think I'm alright today, but I guess we'll find out. PT-OP-D Balance Start: 10/12/17 18:11 Freq: Status: Active Protocol: Document 02/20/20 09:45 DCW (Rec: 02/20/20 10:33 DCW [id number]) OP-PT Balance Assessment Standing Balance Standing Balance Comments Double leg, Eyes open: 1 Donis Balance Assessment Evaluation Sitting to Standing Ability Independent w/Hands Unsupported Stance 30 seconds Sitting Unsupported, Feet on Floor Safely- 2 minutes Standing to Sitting Ability Assist, Control w/Hands Transfer Ability Supervision, Verbal Cues Unsupported Stance- Eyes Closed Supervision, 10 seconds Unsupported Stance- Eyes Open Independent, <30 seconds Reaching Forward Standing Safely, 5 inches Pick- Up Object From Floor Supervision Look Behind Shoulder - Standing Turns Sideways Only Turning 360 Degrees Supervision/Verbal Cues Unsupported Stance, Alternating Feet on Assist to Prevent Fall Stair Unsupported Tandem Stance Small Step- 30 seconds Unilateral Leg Stance Lifts Leg/Unable to Hold Total Score Donis Total Score (out of 56 points) 31 Donis Impairment Rating 40 to 59% Impaired (Score 23- 33) Mejia Fall Scale Copyright Permission PT-OP-E Functional Tests Start: 10/12/17 18:11 Freq: Status: Active Protocol: Document 02/20/20 09:45 DCW (Rec: 02/20/20 10:33 DCW [id number]) Functional Tests 6 Minute Walk Test Distance 921' Device Used 4WW PT-OP-G Mobility & Gait Start: 12/23/18 10:02 Freq: Status: Active Protocol: Document 02/20/20 09:45 DCW (Rec: 02/20/20 10:33 DCW [id number]) OP Gait Assessment Gait Gait Assistance Required: Contact Guard Assist Distance (Feet) 295 Assistive Devices Assistive Device None,Gait Belt Gait Deviations General Gait Pattern Antalgic,Ataxic,Decreased Stride Length,Decreased Feet Clearance,Flexed Trunk,Lateral Trunk Lean PT-OP-M Strength Start: 10/12/17 18:11 Freq: Status: Active Protocol: Document 02/20/20 09:45 DCW (Rec: 02/20/20 10:33 DCW [id number]) Hip Strength Hip Manual Muscle Testing Right Flexion (L2) 5 Normal Abduction 4+ Good+ Adduction 5 Normal Left Flexion (L2) 4+ Good+ Abduction 4 Good Adduction 4+ Good+ Knee Strength Knee Manual Muscle Testing Right Flexion (S2) 4 Good Extension (L3) 4+ Good+ Left Flexion (S2) 4+ Good+ Extension (L3) 4+ Good+ Ankle/Foot Strength Ankle and Foot Manual Muscle Testing Right Dorsiflexion (L4) 2 Poor Plantarflexion (S1) 3+ Fair+ Left Dorsiflexion (L4) 4 Good Plantarflexion (S1) 4 Good PT-OP-Q Treatments Start: 09/28/17 15:21 Freq: Status: Active Protocol: Document 03/26/20 10:30 DCW (Rec: 03/26/20 11:14 DCW [id number]) Gym Equipment Shuttle Recovery Bilateral Heel Raises Resistance 100# Reps/Time x60 Unilateral Squats Resistance 87# Shuttle Recovery Platform Stable Reps/Time x20 each Bilateral Squats Resistance 150# Shuttle Recovery Platform Stable Reps/Time x30 Shuttle Balance 1 Details Blue Comments Wide WILIAN Gait Training Gait Activity 3 Description Ambulate /s AD Device Used none Level of Assistance CGA Distance/Duration 310' Neuro Re-Education Treatment Balance Activities 6 Details Ball/cone pick-up, ball toss PT-OP-T Assessment and Plan Start: 09/28/17 15:21 Freq: Status: Active Protocol: Document 03/26/20 10:30 DCW (Rec: 03/26/20 11:14 DCW [id number]) Physical Therapy Assessment Impairments Impairments Activity Tolerance,Balance, Functional Activities, Functional Mobility,Gait,ROM, Strength Goals Eight Impairment Unassisted Gait Short Term Goal (STG) Pt to ambulate 300' SBA /s AD STG Duration Met Senior Principal Architect Goal (LTG) Pt to ambulate 400' SBA /s AD LTG Duration 05/21/20 Seven Impairment Donis Short Term Goal (STG) Pt to score 22/56 on Donis Balance scale STG Duration Met Senior Principal Architect Goal (LTG) Pt to score 35/56 on Donis Balance scale LTG Duration 05/21/20 Six Impairment Static Standing Balance Short Term Goal (STG) Pt to stand independently for 2 minutes STG Duration Met Mcc Goal (LTG) Pt to stand independently for 3 minutes LTG Duration 03/21/20 Five Impairment 6 MWT Mcc Goal (LTG) Pt to ambulate 1000' without rest using 4WW during 6 MWT (02/20/20: 921') LTG Duration 05/21/20 Four Impairment Foot slap Short Term Goal (STG) Pt to regularly wear R AFO to limit foot drop and help normalize gait pattern STG Duration Met Three Impairment Transfers Short Term Goal (STG) Pt to transfer independently from mat<->w/c with no assistive devices STG Duration Met Two Impairment Ankle weakness Mcc Goal (LTG) Pt to display 2/5 MMT in R DF, 4/5 MMT in R PF, and 4+/5 MMT in all other bilateral ankle movements LTG Duration 12/22/20 One Impairment Activity tolerance Senior Principal Architect Goal (LTG) Pt to tolerate activity up to 15 minutes without a break LTG Duration 05/21/20 Assessment Summary Assessment Pt had a relatively good day today, gait distance is improving, pt displaying increased stability on shuttle balance. Physical Therapy Plan Frequency and Duration Frequency of Treatment 1x/Week Duration of Treatment 3 months Plan of Care Start Date 02/20/20 Plan of Care End Date 05/21/20 Therapeutic Interventions Therapeutic Interventions Aquatic Therapy,Balance Training,Gait Training,Home Exercise Program,Manual Therapy,Neuromuscular Re- education,Soft Tissue Mobilization,Therapeutic Activities,Therapeutic Exercises Next Visit Focus/Plan Next Note Type Treatment Note Next Visit Plan Continue focus on opposing arm swing during gait, increasing activity tolerance, increasing gait /s an AD, and improving balance
--- NOTE | 2020-04-02 10:29 | PT.OTN ---
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 with return to pre-existing conscious level, subsequent encounter (04/02/20) History of falling (04/02/20) Physical Therapy Treatment Note PT-OP-A Visit Information Start: 09/28/17 15:21 Freq: Status: Active Protocol: Document 04/02/20 09:45 DCW (Rec: 04/02/20 10:29 DCW [id number]) Out-Patient Physical Therapy Visit Information Visit Information Visit Type Treatment Note Visit Start Time 09:45 Visit Stop Time 10:30 Total Visit Minutes 45 Visit Number 12/07 Number of FARM EQUIPMENT MAINTENANCE SUPERVISOR Visits 0 Evaluation Information Evaluation Date 07/27/17 PT-OP-B Current Condition Start: 09/28/17 15:21 Freq: Status: Active Protocol: Document 10/12/17 13:45 DCW (Rec: 10/12/17 18:33 DCW [id number]) Current Condition History of Current Condition Onset Date 02/05/17 History of Current Condition See Pt's initial evaluation in Therapy Source Current Functional Impairments (Reported) Functional Limitations- Mobility/Gait Transfers:W/C<->Mat Stand- pivot: Independent PT-OP-C Subjective Start: 09/28/17 15:21 Freq: Status: Active Protocol: Document 04/02/20 09:45 DCW (Rec: 04/02/20 10:29 DCW [id number]) OP-PT Subjective Patient Comments Patient Comments Pt reports he has had a headache for the last hour, which always worries him since the brain surgery, notes his doctor knows all about it, it has happened a few times before, but notes that unless it gets worse, he's not too worried about it. If it does get worse, he just wants to let therapist know that he'll probably need to leave early. PT-OP-D Balance Start: 10/12/17 18:11 Freq: Status: Active Protocol: Document 02/20/20 09:45 DCW (Rec: 02/20/20 10:33 DCW [id number]) OP-PT Balance Assessment Standing Balance Standing Balance Comments Double leg, Eyes open: '18 Donis Balance Assessment Evaluation Sitting to Standing Ability Independent w/Hands Unsupported Stance 30 seconds Sitting Unsupported, Feet on Floor Safely- 2 minutes Standing to Sitting Ability Assist, Control w/Hands Transfer Ability Supervision, Verbal Cues Unsupported Stance- Eyes Closed Supervision, 10 seconds Unsupported Stance- Eyes Open Independent, <30 seconds Reaching Forward Standing Safely, 5 inches Pick- Up Object From Floor Supervision Look Behind Shoulder - Standing Turns Sideways Only Turning 360 Degrees Supervision/Verbal Cues Unsupported Stance, Alternating Feet on Assist to Prevent Fall Stair Unsupported Tandem Stance Small Step- 30 seconds Unilateral Leg Stance Lifts Leg/Unable to Hold Total Score Donis Total Score (out of 56 points) 31 Donis Impairment Rating 40 to 59% Impaired (Score 23- 33) Mejia Fall Scale Copyright Permission PT-OP-E Functional Tests Start: 10/12/17 18:11 Freq: Status: Active Protocol: Document 02/20/20 09:45 DCW (Rec: 02/20/20 10:33 DCW [id number]) Functional Tests 6 Minute Walk Test Distance 921' Device Used 4WW PT-OP-G Mobility & Gait Start: 12/23/18 10:02 Freq: Status: Active Protocol: Document 02/20/20 09:45 DCW (Rec: 02/20/20 10:33 DCW [id number]) OP Gait Assessment Gait Gait Assistance Required: Contact Guard Assist Distance (Feet) 295 Assistive Devices Assistive Device None,Gait Belt Gait Deviations General Gait Pattern Antalgic,Ataxic,Decreased Stride Length,Decreased Feet Clearance,Flexed Trunk,Lateral Trunk Lean PT-OP-M Strength Start: 10/12/17 18:11 Freq: Status: Active Protocol: Document 02/20/20 09:45 DCW (Rec: 02/20/20 10:33 DCW [id number]) Hip Strength Hip Manual Muscle Testing Right Flexion (L2) 5 Normal Abduction 4+ Good+ Adduction 5 Normal Left Flexion (L2) 4+ Good+ Abduction 4 Good Adduction 4+ Good+ Knee Strength Knee Manual Muscle Testing Right Flexion (S2) 4 Good Extension (L3) 4+ Good+ Left Flexion (S2) 4+ Good+ Extension (L3) 4+ Good+ Ankle/Foot Strength Ankle and Foot Manual Muscle Testing Right Dorsiflexion (L4) 2 Poor Plantarflexion (S1) 3+ Fair+ Left Dorsiflexion (L4) 4 Good Plantarflexion (S1) 4 Good PT-OP-Q Treatments Start: 09/28/17 15:21 Freq: Status: Active Protocol: Document 04/02/20 09:45 DCW (Rec: 04/02/20 10:29 DCW [id number]) Gym Equipment Shuttle Recovery Bilateral Heel Raises Resistance 100# Reps/Time x60 Unilateral Squats Resistance 87# Shuttle Recovery Platform Stable Reps/Time x20 each Bilateral Squats Resistance 150# Shuttle Recovery Platform Stable Reps/Time x30 Therapeutic Exercises Other Exercises 2 Other Exercise Name Hurdles Equipment Used in // bars Comments fwd, lateral Step-ups Other Exercise Name Toe-taps Resistance 5# Equipment Used 6 step Reps/Minutes x20 each foot Comments // bars 1 Other Exercise Name Resisted Side-stepping Side bilateral Resistance Green Equipment Used T-band Comments // bars Gait Training Gait Activity 3 Description Ambulate /s AD Device Used none Level of Assistance CGA Distance/Duration 270' PT-OP-T Assessment and Plan Start: 09/28/17 15:21 Freq: Status: Active Protocol: Document 04/02/20 09:45 DCW (Rec: 04/02/20 10:29 DCW [id number]) Physical Therapy Assessment Impairments Impairments Activity Tolerance,Balance, Functional Activities, Functional Mobility,Gait,ROM, Strength Goals Eight Impairment Unassisted Gait Short Term Goal (STG) Pt to ambulate 300' SBA /s AD STG Duration Met Half-Way Goal (LTG) Pt to ambulate 400' SBA /s AD LTG Duration 05/21/20 Seven Impairment Donis Short Term Goal (STG) Pt to score 22/56 on Donis Balance scale STG Duration Met Customer Relations Advisor Goal (LTG) Pt to score 35/56 on Donis Balance scale LTG Duration 05/21/20 Six Impairment Static Standing Balance Short Term Goal (STG) Pt to stand independently for 2 minutes STG Duration Met Customer Relations Advisor Goal (LTG) Pt to stand independently for 3 minutes LTG Duration 03/21/20 Five Impairment 6 MWT Half-Way Goal (LTG) Pt to ambulate 1000' without rest using 4WW during 6 MWT (02/20/20: 921') LTG Duration 05/21/20 Four Impairment Foot slap Short Term Goal (STG) Pt to regularly wear R AFO to limit foot drop and help normalize gait pattern STG Duration Met Three Impairment Transfers Short Term Goal (STG) Pt to transfer independently from mat<->w/c with no assistive devices STG Duration Met Two Impairment Ankle weakness Customer Relations Advisor Goal (LTG) Pt to display 2/5 MMT in R DF, 4/5 MMT in R PF, and 4+/5 MMT in all other bilateral ankle movements LTG Duration 05/21/20 One Impairment Activity tolerance Half-Way Goal (LTG) Pt to tolerate activity up to 15 minutes without a break LTG Duration 05/21/20 Assessment Summary Assessment Pt ended up not being bothered by his initial headache, was able to put in good effort today, fatigued by end of session Physical Therapy Plan Frequency and Duration Frequency of Treatment 1x/Week Duration of Treatment 3 months Plan of Care Start Date 02/20/20 Plan of Care End Date 05/21/20 Therapeutic Interventions Therapeutic Interventions Aquatic Therapy,Balance Training,Gait Training,Home Exercise Program,Manual Therapy,Neuromuscular Re- education,Soft Tissue Mobilization,Therapeutic Activities,Therapeutic Exercises Next Visit Focus/Plan Next Note Type Treatment Note Next Visit Plan Continue focus on opposing arm swing during gait, increasing activity tolerance, increasing gait /s an AD, and improving balance
--- NOTE | 2020-04-09 10:24 | PT.OTN ---
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 with return to pre-existing conscious level, subsequent encounter (04/09/20) History of falling (04/09/20) Physical Therapy Treatment Note PT-OP-A Visit Information Start: 09/28/17 15:21 Freq: Status: Active Protocol: Document 04/09/20 09:39 DCW (Rec: 04/09/20 10:24 DCW [id number]) Out-Patient Physical Therapy Visit Information Visit Information Visit Type Treatment Note Visit Start Time 09:39 Visit Stop Time 10:24 Total Visit Minutes 45 Visit Number 01/07 Number of MACHINE ROOM ENGINEER Visits 0 Evaluation Information Evaluation Date 07/27/17 PT-OP-B Current Condition Start: 09/28/17 15:21 Freq: Status: Active Protocol: Document 10/12/17 13:45 DCW (Rec: 10/12/17 18:33 DCW [id number]) Current Condition History of Current Condition Onset Date 02/05/17 History of Current Condition See Pt's initial evaluation in Therapy Source Current Functional Impairments (Reported) Functional Limitations- Mobility/Gait Transfers:W/C<->Mat Stand- pivot: Independent PT-OP-C Subjective Start: 09/28/17 15:21 Freq: Status: Active Protocol: Document 04/09/20 09:39 DCW (Rec: 04/09/20 10:24 DCW [id number]) OP-PT Subjective Patient Comments Patient Comments Pt well like he is doing alright today. PT-OP-D Balance Start: 10/12/17 18:11 Freq: Status: Active Protocol: Document 02/20/20 09:45 DCW (Rec: 02/20/20 10:33 DCW [id number]) OP-PT Balance Assessment Standing Balance Standing Balance Comments Double leg, Eyes open: Donis Balance Assessment Evaluation Sitting to Standing Ability Independent w/Hands Unsupported Stance 30 seconds Sitting Unsupported, Feet on Floor Safely- 2 minutes Standing to Sitting Ability Assist, Control w/Hands Transfer Ability Supervision, Verbal Cues Unsupported Stance- Eyes Closed Supervision, 10 seconds Unsupported Stance- Eyes Open Independent, <30 seconds Reaching Forward Standing Safely, 5 inches Pick- Up Object From Floor Supervision Look Behind Shoulder - Standing Turns Sideways Only Turning 360 Degrees Supervision/Verbal Cues Unsupported Stance, Alternating Feet on Assist to Prevent Fall Stair Unsupported Tandem Stance Small Step- 30 seconds Unilateral Leg Stance Lifts Leg/Unable to Hold Total Score Donis Total Score (out of 56 points) 31 Donis Impairment Rating 40 to 59% Impaired (Score 23- 33) Mejia Fall Scale Copyright Permission PT-OP-E Functional Tests Start: 10/12/17 18:11 Freq: Status: Active Protocol: Document 02/20/20 09:45 DCW (Rec: 02/20/20 10:33 DCW [id number]) Functional Tests 6 Minute Walk Test Distance 921' Device Used 4WW PT-OP-G Mobility & Gait Start: 12/23/18 10:02 Freq: Status: Active Protocol: Document 02/20/20 09:45 DCW (Rec: 02/20/20 10:33 DCW [id number]) OP Gait Assessment Gait Gait Assistance Required: Contact Guard Assist Distance (Feet) 295 Assistive Devices Assistive Device None,Gait Belt Gait Deviations General Gait Pattern Antalgic,Ataxic,Decreased Stride Length,Decreased Feet Clearance,Flexed Trunk,Lateral Trunk Lean PT-OP-M Strength Start: 10/12/17 18:11 Freq: Status: Active Protocol: Document 02/20/20 09:45 DCW (Rec: 02/20/20 10:33 DCW [id number]) Hip Strength Hip Manual Muscle Testing Right Flexion (L2) 5 Normal Abduction 4+ Good+ Adduction 5 Normal Left Flexion (L2) 4+ Good+ Abduction 4 Good Adduction 4+ Good+ Knee Strength Knee Manual Muscle Testing Right Flexion (S2) 4 Good Extension (L3) 4+ Good+ Left Flexion (S2) 4+ Good+ Extension (L3) 4+ Good+ Ankle/Foot Strength Ankle and Foot Manual Muscle Testing Right Dorsiflexion (L4) 2 Poor Plantarflexion (S1) 3+ Fair+ Left Dorsiflexion (L4) 4 Good Plantarflexion (S1) 4 Good PT-OP-Q Treatments Start: 09/28/17 15:21 Freq: Status: Active Protocol: Document 04/09/20 09:39 DCW (Rec: 04/09/20 10:24 DCW [id number]) Gym Equipment Shuttle Balance 1 Details Blue Comments Wide WILIAN Therapeutic Exercises Other Exercises 2 Other Exercise Name Hurdles Equipment Used in // bars Comments fwd, lateral Step-ups Other Exercise Name Toe-taps Resistance 5# Equipment Used 6 step Reps/Minutes x20 each foot Comments // bars 1 Other Exercise Name Resisted Side-stepping Side bilateral Resistance Green Equipment Used T-band Comments // bars Gait Training Gait Activity 3 Description Ambulate /s AD Device Used none Level of Assistance CGA Distance/Duration 130' x1, 210' x1 Neuro Re-Education Treatment Balance Activities 6 Details Ball/cone pick-up, ball toss PT-OP-T Assessment and Plan Start: 09/28/17 15:21 Freq: Status: Active Protocol: Document 04/09/20 09:39 DCW (Rec: 04/09/20 10:24 DCW [id number]) Physical Therapy Assessment Impairments Impairments Activity Tolerance,Balance, Functional Activities, Functional Mobility,Gait,ROM, Strength Goals Eight Impairment Unassisted Gait Short Term Goal (STG) Pt to ambulate 300' SBA /s AD STG Duration Met Aix Architect Goal (LTG) Pt to ambulate 400' SBA /s AD LTG Duration 05/21/20 Seven Impairment Donis Short Term Goal (STG) Pt to score 22/56 on Donis Balance scale STG Duration Met Aix Architect Goal (LTG) Pt to score 35/56 on Donis Balance scale LTG Duration 05/21/20 Six Impairment Static Standing Balance Short Term Goal (STG) Pt to stand independently for 2 minutes STG Duration Met Snf Goal (LTG) Pt to stand independently for 3 minutes LTG Duration 03/21/20 Five Impairment 6 MWT Aix Architect Goal (LTG) Pt to ambulate 1000' without rest using 4WW during 6 MWT (02/20/20: 921') LTG Duration 05/21/20 Four Impairment Foot slap Short Term Goal (STG) Pt to regularly wear R AFO to limit foot drop and help normalize gait pattern STG Duration Met Three Impairment Transfers Short Term Goal (STG) Pt to transfer independently from mat<->w/c with no assistive devices STG Duration Met Two Impairment Ankle weakness Aix Architect Goal (LTG) Pt to display 2/5 MMT in R DF, 4/5 MMT in R PF, and 4+/5 MMT in all other bilateral ankle movements LTG Duration 05/21/20 One Impairment Activity tolerance Snf Goal (LTG) Pt to tolerate activity up to 15 minutes without a break LTG Duration 05/21/20 Assessment Summary Assessment During his gait today, but had two instances of significant LOB, required Mod Ax1 to prevent fall, appeared to be due to inability for full left foot clearance, which is unusual for pt. Physical Therapy Plan Frequency and Duration Frequency of Treatment 1x/Week Duration of Treatment 3 months Plan of Care Start Date 02/20/20 Plan of Care End Date 05/21/20 Therapeutic Interventions Therapeutic Interventions Aquatic Therapy,Balance Training,Gait Training,Home Exercise Program,Manual Therapy,Neuromuscular Re- education,Soft Tissue Mobilization,Therapeutic Activities,Therapeutic Exercises Next Visit Focus/Plan Next Note Type Treatment Note Next Visit Plan Continue focus on opposing arm swing during gait, increasing activity tolerance, increasing gait /s an AD, and improving balance
--- NOTE | 2020-04-16 10:28 | PT.OTN ---
Current Diagnoses Foot drop, right foot (04/16/20) Muscle weakness (generalized) (04/16/20) Unsteadiness on feet (04/16/20) Unspecified abnormalities of gait and mobility (04/16/20) Traumatic subdural hemorrhage with loss of consciousness greater than 24 hours with return to pre-existing conscious level, subsequent encounter (04/16/20) History of falling (04/16/20) Physical Therapy Treatment Note PT-OP-A Visit Information Start: 09/28/17 15:21 Freq: Status: Active Protocol: Document 04/16/20 09:45 DCW (Rec: 04/16/20 10:28 DCW [id number]) Out-Patient Physical Therapy Visit Information Visit Information Visit Type Treatment Note Visit Start Time 09:45 Visit Stop Time 10:30 Total Visit Minutes 45 Visit Number 02/07 Number of OYSTER PICKER Visits 0 Evaluation Information Evaluation Date 07/27/17 PT-OP-B Current Condition Start: 09/28/17 15:21 Freq: Status: Active Protocol: Document 10/12/17 13:45 DCW (Rec: 10/12/17 18:33 DCW [id number]) Current Condition History of Current Condition Onset Date 02/05/17 History of Current Condition See Pt's initial evaluation in Therapy Source Current Functional Impairments (Reported) Functional Limitations- Mobility/Gait Transfers:W/C<->Mat Stand- pivot: Independent PT-OP-C Subjective Start: 09/28/17 15:21 Freq: Status: Active Protocol: Document 04/16/20 09:45 DCW (Rec: 04/16/20 10:28 DCW [id number]) OP-PT Subjective Patient Comments Patient Comments Pt admits he had a small fall on Wednesday. He was getting from his car to his 4WW, and wasjust careless, slipped, and went down to his knees. Pt notes he is fine, nothing is sore, but his physician told him he had to tell his PT. Pt also admits he has not told his about this. PT-OP-D Balance Start: 10/12/17 18:11 Freq: Status: Active Protocol: Document 02/20/20 09:45 DCW (Rec: 02/20/20 10:33 DCW [id number]) OP-PT Balance Assessment Standing Balance Standing Balance Comments Double leg, Eyes open: Donis Balance Assessment Evaluation Sitting to Standing Ability Independent w/Hands Unsupported Stance 30 seconds Sitting Unsupported, Feet on Floor Safely- 2 minutes Standing to Sitting Ability Assist, Control w/Hands Transfer Ability Supervision, Verbal Cues Unsupported Stance- Eyes Closed Supervision, 10 seconds Unsupported Stance- Eyes Open Independent, <30 seconds Reaching Forward Standing Safely, 5 inches Pick- Up Object From Floor Supervision Look Behind Shoulder - Standing Turns Sideways Only Turning 360 Degrees Supervision/Verbal Cues Unsupported Stance, Alternating Feet on Assist to Prevent Fall Stair Unsupported Tandem Stance Small Step- 30 seconds Unilateral Leg Stance Lifts Leg/Unable to Hold Total Score Donis Total Score (out of 56 points) 31 Donis Impairment Rating 40 to 59% Impaired (Score 23- 33) Mejia Fall Scale Copyright Permission PT-OP-E Functional Tests Start: 10/12/17 18:11 Freq: Status: Active Protocol: Document 02/20/20 09:45 DCW (Rec: 02/20/20 10:33 DCW [id number]) Functional Tests 6 Minute Walk Test Distance 921' Device Used 4WW PT-OP-G Mobility & Gait Start: 12/23/18 10:02 Freq: Status: Active Protocol: Document 02/20/20 09:45 DCW (Rec: 02/20/20 10:33 DCW [id number]) OP Gait Assessment Gait Gait Assistance Required: Contact Guard Assist Distance (Feet) 295 Assistive Devices Assistive Device None,Gait Belt Gait Deviations General Gait Pattern Antalgic,Ataxic,Decreased Stride Length,Decreased Feet Clearance,Flexed Trunk,Lateral Trunk Lean PT-OP-M Strength Start: 10/12/17 18:11 Freq: Status: Active Protocol: Document 02/20/20 09:45 DCW (Rec: 02/20/20 10:33 DCW [id number]) Hip Strength Hip Manual Muscle Testing Right Flexion (L2) 5 Normal Abduction 4+ Good+ Adduction 5 Normal Left Flexion (L2) 4+ Good+ Abduction 4 Good Adduction 4+ Good+ Knee Strength Knee Manual Muscle Testing Right Flexion (S2) 4 Good Extension (L3) 4+ Good+ Left Flexion (S2) 4+ Good+ Extension (L3) 4+ Good+ Ankle/Foot Strength Ankle and Foot Manual Muscle Testing Right Dorsiflexion (L4) 2 Poor Plantarflexion (S1) 3+ Fair+ Left Dorsiflexion (L4) 4 Good Plantarflexion (S1) 4 Good PT-OP-Q Treatments Start: 09/28/17 15:21 Freq: Status: Active Protocol: Document 04/16/20 09:45 DCW (Rec: 04/16/20 10:28 DCW [id number]) Gym Equipment Shuttle Recovery Bilateral Heel Raises Resistance 100# Reps/Time x60 Unilateral Squats Resistance 87# Shuttle Recovery Platform Stable Reps/Time x20 each Bilateral Squats Resistance 150# Shuttle Recovery Platform Stable Reps/Time x30 Therapeutic Exercises Other Exercises 2 Other Exercise Name Hurdles Equipment Used in // bars Comments fwd, lateral Step-ups Other Exercise Name Toe-taps Resistance 5# Equipment Used 6 step Reps/Minutes x20 each foot Comments // bars Gait Training Gait Activity 3 Description Ambulate /s AD Device Used none Level of Assistance CGA Distance/Duration 190' Neuro Re-Education Treatment Balance Activities 6 Details Ball/cone pick-up, ball toss PT-OP-T Assessment and Plan Start: 09/28/17 15:21 Freq: Status: Active Protocol: Document 04/16/20 09:45 DCW (Rec: 04/16/20 10:28 DCW [id number]) Physical Therapy Assessment Impairments Impairments Activity Tolerance,Balance, Functional Activities, Functional Mobility,Gait,ROM, Strength Goals Eight Impairment Unassisted Gait Short Term Goal (STG) Pt to ambulate 300' SBA /s AD STG Duration Met Lower In Supervisor Goal (LTG) Pt to ambulate 400' SBA /s AD LTG Duration 05/21/20 Seven Impairment Donis Short Term Goal (STG) Pt to score 22/56 on Donis Balance scale STG Duration Met Jail Goal (LTG) Pt to score 35/56 on Donis Balance scale LTG Duration 05/21/20 Six Impairment Static Standing Balance Short Term Goal (STG) Pt to stand independently for 2 minutes STG Duration Met Lower In Supervisor Goal (LTG) Pt to stand independently for 3 minutes LTG Duration 03/21/20 Five Impairment 6 MWT Jail Goal (LTG) Pt to ambulate 1000' without rest using 4WW during 6 MWT (02/20/20: 921') LTG Duration 05/21/20 Four Impairment Foot slap Short Term Goal (STG) Pt to regularly wear R AFO to limit foot drop and help normalize gait pattern STG Duration Met Three Impairment Transfers Short Term Goal (STG) Pt to transfer independently from mat<->w/c with no assistive devices STG Duration Met Two Impairment Ankle weakness Lower In Supervisor Goal (LTG) Pt to display 2/5 MMT in R DF, 4/5 MMT in R PF, and 4+/5 MMT in all other bilateral ankle movements LTG Duration 05/21/20 One Impairment Activity tolerance Lower In Supervisor Goal (LTG) Pt to tolerate activity up to 15 minutes without a break LTG Duration 05/21/20 Assessment Summary Assessment Pt ambulated much better today , no instances of LOB, very good foot placement stepping over the hurdles. Physical Therapy Plan Frequency and Duration Frequency of Treatment 1x/Week Duration of Treatment 3 months Plan of Care Start Date 02/20/20 Plan of Care End Date 05/21/20 Therapeutic Interventions Therapeutic Interventions Aquatic Therapy,Balance Training,Gait Training,Home Exercise Program,Manual Therapy,Neuromuscular Re- education,Soft Tissue Mobilization,Therapeutic Activities,Therapeutic Exercises Next Visit Focus/Plan Next Note Type Treatment Note Next Visit Plan Continue focus on opposing arm swing during gait, increasing activity tolerance, increasing gait /s an AD, and improving balance
--- NOTE | 2020-04-23 10:29 | PT.OTN ---
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 with return to pre-existing conscious level, subsequent encounter (04/23/20) History of falling (04/23/20) Physical Therapy Treatment Note PT-OP-A Visit Information Start: 09/28/17 15:21 Freq: Status: Active Protocol: Document 04/23/20 09:45 DCW (Rec: 04/23/20 10:29 DCW [id number]) Out-Patient Physical Therapy Visit Information Visit Information Visit Type Progress Note Visit Start Time 09:45 Visit Stop Time 10:30 Total Visit Minutes 45 Visit Number 03/09 Number of OFFICE COORDINATOR Visits 0 Evaluation Information Evaluation Date 07/27/17 PT-OP-B Current Condition Start: 09/28/17 15:21 Freq: Status: Active Protocol: Document 10/12/17 13:45 DCW (Rec: 10/12/17 18:33 DCW [id number]) Current Condition History of Current Condition Onset Date 02/05/17 History of Current Condition See Pt's initial evaluation in Therapy Source Current Functional Impairments (Reported) Functional Limitations- Mobility/Gait Transfers:W/C<->Mat Stand- pivot: Independent PT-OP-C Subjective Start: 09/28/17 15:21 Freq: Status: Active Protocol: Document 04/23/20 09:45 DCW (Rec: 04/23/20 10:29 DCW [id number]) OP-PT Subjective Patient Comments Patient Comments Pt reports he is doing okay today. PT-OP-D Balance Start: 10/12/17 18:11 Freq: Status: Active Protocol: Document 02/20/20 09:45 DCW (Rec: 02/20/20 10:33 DCW [id number]) OP-PT Balance Assessment Standing Balance Standing Balance Comments Double leg, Eyes open: Donis Balance Assessment Evaluation Sitting to Standing Ability Independent w/Hands Unsupported Stance 30 seconds Sitting Unsupported, Feet on Floor Safely- 2 minutes Standing to Sitting Ability Assist, Control w/Hands Transfer Ability Supervision, Verbal Cues Unsupported Stance- Eyes Closed Supervision, 10 seconds Unsupported Stance- Eyes Open Independent, <30 seconds Reaching Forward Standing Safely, 5 inches Pick- Up Object From Floor Supervision Look Behind Shoulder - Standing Turns Sideways Only Turning 360 Degrees Supervision/Verbal Cues Unsupported Stance, Alternating Feet on Assist to Prevent Fall Stair Unsupported Tandem Stance Small Step- 30 seconds Unilateral Leg Stance Lifts Leg/Unable to Hold Total Score Donis Total Score (out of 56 points) 31 Donis Impairment Rating 40 to 59% Impaired (Score 23- 33) Mejia Fall Scale Copyright Permission PT-OP-E Functional Tests Start: 10/12/17 18:11 Freq: Status: Active Protocol: Document 02/20/20 09:45 DCW (Rec: 02/20/20 10:33 DCW [id number]) Functional Tests 6 Minute Walk Test Distance 921' Device Used 4WW PT-OP-G Mobility & Gait Start: 12/23/18 10:02 Freq: Status: Active Protocol: Document 02/20/20 09:45 DCW (Rec: 02/20/20 10:33 DCW [id number]) OP Gait Assessment Gait Gait Assistance Required: Contact Guard Assist Distance (Feet) 295 Assistive Devices Assistive Device None,Gait Belt Gait Deviations General Gait Pattern Antalgic,Ataxic,Decreased Stride Length,Decreased Feet Clearance,Flexed Trunk,Lateral Trunk Lean PT-OP-M Strength Start: 10/12/17 18:11 Freq: Status: Active Protocol: Document 02/20/20 09:45 DCW (Rec: 02/20/20 10:33 DCW [id number]) Hip Strength Hip Manual Muscle Testing Right Flexion (L2) 5 Normal Abduction 4+ Good+ Adduction 5 Normal Left Flexion (L2) 4+ Good+ Abduction 4 Good Adduction 4+ Good+ Knee Strength Knee Manual Muscle Testing Right Flexion (S2) 4 Good Extension (L3) 4+ Good+ Left Flexion (S2) 4+ Good+ Extension (L3) 4+ Good+ Ankle/Foot Strength Ankle and Foot Manual Muscle Testing Right Dorsiflexion (L4) 2 Poor Plantarflexion (S1) 3+ Fair+ Left Dorsiflexion (L4) 4 Good Plantarflexion (S1) 4 Good PT-OP-Q Treatments Start: 09/28/17 15:21 Freq: Status: Active Protocol: Document 04/23/20 09:45 DCW (Rec: 04/23/20 10:29 DCW [id number]) Gym Equipment Shuttle Recovery Bilateral Heel Raises Resistance 100# Reps/Time x60 Unilateral Squats Resistance 87# Shuttle Recovery Platform Stable Reps/Time x20 each Bilateral Squats Resistance 150# Shuttle Recovery Platform Stable Reps/Time x30 Shuttle Balance 1 Details Blue Comments Wide WILIAN Gait Training Gait Activity 3 Description Ambulate /s AD Device Used none Level of Assistance CGA Distance/Duration 170' x1, 150' x1 Neuro Re-Education Treatment Balance Activities 6 Details Ball/cone pick-up, ball toss PT-OP-T Assessment and Plan Start: 09/28/17 15:21 Freq: Status: Active Protocol: Document 04/23/20 09:45 DCW (Rec: 04/23/20 10:29 DCW [id number]) Physical Therapy Assessment Impairments Impairments Activity Tolerance,Balance, Functional Activities, Functional Mobility,Gait,ROM, Strength Goals Eight Impairment Unassisted Gait Short Term Goal (STG) Pt to ambulate 300' SBA /s AD STG Duration Met Long-Term Goal (LTG) Pt to ambulate 400' SBA /s AD LTG Duration 05/21/20 Seven Impairment Donis Short Term Goal (STG) Pt to score 22/56 on Donis Balance scale STG Duration Met Resaw Tailer Goal (LTG) Pt to score 35/56 on Donis Balance scale LTG Duration 05/21/20 Six Impairment Static Standing Balance Short Term Goal (STG) Pt to stand independently for 2 minutes STG Duration Met Long-Term Goal (LTG) Pt to stand independently for 3 minutes LTG Duration 03/21/20 Five Impairment 6 MWT Long-Term Goal (LTG) Pt to ambulate 1000' without rest using 4WW during 6 MWT (02/20/20: 921') LTG Duration 05/21/20 Four Impairment Foot slap Short Term Goal (STG) Pt to regularly wear R AFO to limit foot drop and help normalize gait pattern STG Duration Met Three Impairment Transfers Short Term Goal (STG) Pt to transfer independently from mat<->w/c with no assistive devices STG Duration Met Two Impairment Ankle weakness Long-Term Goal (LTG) Pt to display 2/5 MMT in R DF, 4/5 MMT in R PF, and 4+/5 MMT in all other bilateral ankle movements LTG Duration 05/21/20 One Impairment Activity tolerance Resaw Tailer Goal (LTG) Pt to tolerate activity up to 15 minutes without a break LTG Duration 05/21/20 Progress Towards Goals Progress Towards Goals Slow Progress due to Activity Tolerance,Slow Progress due to Medical Issues Assessment Summary Assessment Pt having more of a struggle today, had difficulty with his balance during ambulation, and remained fatigued more than usual. No notable reason for this, pt overall had no new complaints or pain. Notes he has felt he is declining at home as well, and I've lost all my confidence. Physical Therapy Plan Frequency and Duration Frequency of Treatment 1x/Week Duration of Treatment 3 months Plan of Care Start Date 02/20/20 Plan of Care End Date 05/21/20 Therapeutic Interventions Therapeutic Interventions Aquatic Therapy,Balance Training,Gait Training,Home Exercise Program,Manual Therapy,Neuromuscular Re- education,Soft Tissue Mobilization,Therapeutic Activities,Therapeutic Exercises Next Visit Focus/Plan Next Note Type Treatment Note Next Visit Plan Continue focus on opposing arm swing during gait, increasing activity tolerance, increasing gait /s an AD, and improving balance
--- NOTE | 2020-04-30 10:30 | PT.OTN ---
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 with return to pre-existing conscious level, subsequent encounter (04/30/20) History of falling (04/30/20) Physical Therapy Treatment Note PT-OP-A Visit Information Start: 09/28/17 15:21 Freq: Status: Active Protocol: Document 04/30/20 09:45 DCW (Rec: 04/30/20 10:30 DCW [id number]) Out-Patient Physical Therapy Visit Information Visit Information Visit Type Treatment Note Visit Start Time 09:45 Visit Stop Time 10:30 Total Visit Minutes 45 Visit Number 06/09 Number of NUCLEAR POWERPLANT MECHANIC Visits 0 Evaluation Information Evaluation Date 07/27/17 PT-OP-B Current Condition Start: 09/28/17 15:21 Freq: Status: Active Protocol: Document 10/12/17 13:45 DCW (Rec: 10/12/17 18:33 DCW [id number]) Current Condition History of Current Condition Onset Date 02/05/17 History of Current Condition See Pt's initial evaluation in Therapy Source Current Functional Impairments (Reported) Functional Limitations- Mobility/Gait Transfers:W/C<->Mat Stand- pivot: Independent PT-OP-C Subjective Start: 09/28/17 15:21 Freq: Status: Active Protocol: Document 04/30/20 09:45 DCW (Rec: 04/30/20 10:30 DCW [id number]) OP-PT Subjective Patient Comments Patient Comments Pt admits he is pretty depressed today. PT-OP-D Balance Start: 10/12/17 18:11 Freq: Status: Active Protocol: Document 02/20/20 09:45 DCW (Rec: 02/20/20 10:33 DCW [id number]) OP-PT Balance Assessment Standing Balance Standing Balance Comments Double leg, Eyes open: Donis Balance Assessment Evaluation Sitting to Standing Ability Independent w/Hands Unsupported Stance 30 seconds Sitting Unsupported, Feet on Floor Safely- 2 minutes Standing to Sitting Ability Assist, Control w/Hands Transfer Ability Supervision, Verbal Cues Unsupported Stance- Eyes Closed Supervision, 10 seconds Unsupported Stance- Eyes Open Independent, <30 seconds Reaching Forward Standing Safely, 5 inches Pick- Up Object From Floor Supervision Look Behind Shoulder - Standing Turns Sideways Only Turning 360 Degrees Supervision/Verbal Cues Unsupported Stance, Alternating Feet on Assist to Prevent Fall Stair Unsupported Tandem Stance Small Step- 30 seconds Unilateral Leg Stance Lifts Leg/Unable to Hold Total Score Donis Total Score (out of 56 points) 31 Donis Impairment Rating 40 to 59% Impaired (Score 23- 33) Mejia Fall Scale Copyright Permission PT-OP-E Functional Tests Start: 10/12/17 18:11 Freq: Status: Active Protocol: Document 02/20/20 09:45 DCW (Rec: 02/20/20 10:33 DCW [id number]) Functional Tests 6 Minute Walk Test Distance 921' Device Used 4WW PT-OP-G Mobility & Gait Start: 12/23/18 10:02 Freq: Status: Active Protocol: Document 02/20/20 09:45 DCW (Rec: 02/20/20 10:33 DCW [id number]) OP Gait Assessment Gait Gait Assistance Required: Contact Guard Assist Distance (Feet) 295 Assistive Devices Assistive Device None,Gait Belt Gait Deviations General Gait Pattern Antalgic,Ataxic,Decreased Stride Length,Decreased Feet Clearance,Flexed Trunk,Lateral Trunk Lean PT-OP-M Strength Start: 10/12/17 18:11 Freq: Status: Active Protocol: Document 02/20/20 09:45 DCW (Rec: 02/20/20 10:33 DCW [id number]) Hip Strength Hip Manual Muscle Testing Right Flexion (L2) 5 Normal Abduction 4+ Good+ Adduction 5 Normal Left Flexion (L2) 4+ Good+ Abduction 4 Good Adduction 4+ Good+ Knee Strength Knee Manual Muscle Testing Right Flexion (S2) 4 Good Extension (L3) 4+ Good+ Left Flexion (S2) 4+ Good+ Extension (L3) 4+ Good+ Ankle/Foot Strength Ankle and Foot Manual Muscle Testing Right Dorsiflexion (L4) 2 Poor Plantarflexion (S1) 3+ Fair+ Left Dorsiflexion (L4) 4 Good Plantarflexion (S1) 4 Good PT-OP-Q Treatments Start: 09/28/17 15:21 Freq: Status: Active Protocol: Document 04/30/20 09:45 DCW (Rec: 04/30/20 10:30 DCW [id number]) Gym Equipment Shuttle Recovery Bilateral Heel Raises Resistance 100# Reps/Time x60 Unilateral Squats Resistance 87# Shuttle Recovery Platform Stable Reps/Time x20 each Bilateral Squats Resistance 150# Shuttle Recovery Platform Stable Reps/Time x30 Therapeutic Exercises Other Exercises 2 Other Exercise Name Hurdles Resistance 5# Equipment Used in // bars Step-ups Other Exercise Name Toe-taps Resistance 5# Equipment Used 6 step Reps/Minutes x20 each foot Comments // bars Gait Training Gait Activity 3 Description Ambulate /s AD Device Used none Level of Assistance CGA Distance/Duration 200' x1 Neuro Re-Education Treatment Balance Activities 6 Details Ball/cone pick-up, ball toss PT-OP-T Assessment and Plan Start: 09/28/17 15:21 Freq: Status: Active Protocol: Document 04/30/20 09:45 DCW (Rec: 04/30/20 10:30 DCW [id number]) Physical Therapy Assessment Impairments Impairments Activity Tolerance,Balance, Functional Activities, Functional Mobility,Gait,ROM, Strength Goals Eight Impairment Unassisted Gait Short Term Goal (STG) Pt to ambulate 300' SBA /s AD STG Duration Met Chcf Goal (LTG) Pt to ambulate 400' SBA /s AD LTG Duration 05/21/20 Seven Impairment Donis Short Term Goal (STG) Pt to score 22/56 on Donis Balance scale STG Duration Met Chcf Goal (LTG) Pt to score 35/56 on Donis Balance scale LTG Duration 05/21/20 Six Impairment Static Standing Balance Short Term Goal (STG) Pt to stand independently for 2 minutes STG Duration Met Chcf Goal (LTG) Pt to stand independently for 3 minutes LTG Duration 03/21/20 Five Impairment 6 MWT Chcf Goal (LTG) Pt to ambulate 1000' without rest using 4WW during 6 MWT (02/20/20: 921') LTG Duration 05/21/20 Four Impairment Foot slap Short Term Goal (STG) Pt to regularly wear R AFO to limit foot drop and help normalize gait pattern STG Duration Met Three Impairment Transfers Short Term Goal (STG) Pt to transfer independently from mat<->w/c with no assistive devices STG Duration Met Two Impairment Ankle weakness Capital Project Engineer Goal (LTG) Pt to display 2/5 MMT in R DF, 4/5 MMT in R PF, and 4+/5 MMT in all other bilateral ankle movements LTG Duration 05/21/20 One Impairment Activity tolerance Chcf Goal (LTG) Pt to tolerate activity up to 15 minutes without a break LTG Duration 05/21/20 Progress Towards Goals Progress Towards Goals Slow Progress due to Activity Tolerance,Slow Progress due to Medical Issues Assessment Summary Assessment Pt showed improved balance and ambulation today compared to last week, but was more fatigued. Appeared to be rather down emotionally today. Physical Therapy Plan Frequency and Duration Frequency of Treatment 1x/Week Duration of Treatment 3 months Plan of Care Start Date 02/20/20 Plan of Care End Date 05/21/20 Therapeutic Interventions Therapeutic Interventions Aquatic Therapy,Balance Training,Gait Training,Home Exercise Program,Manual Therapy,Neuromuscular Re- education,Soft Tissue Mobilization,Therapeutic Activities,Therapeutic Exercises Next Visit Focus/Plan Next Note Type Treatment Note Next Visit Plan Continue focus on opposing arm swing during gait, increasing activity tolerance, increasing gait /s an AD, and improving balance
--- NOTE | 2020-05-14 10:30 | PT.OTN ---
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 greater than 24 hours with return to pre-existing conscious level, subsequent encounter (05/14/20) History of falling (05/14/20) Physical Therapy Treatment Note PT-OP-A Visit Information Start: 09/28/17 15:21 Freq: Status: Active Protocol: Document 05/14/20 09:45 DCW (Rec: 05/14/20 10:30 DCW [id number]) Out-Patient Physical Therapy Visit Information Visit Information Visit Type Treatment Note Visit Start Time 09:45 Visit Stop Time 10:30 Total Visit Minutes 45 Visit Number 07/10 Number of COMPUTER HELP DESK REPRESENTATIVE Visits 0 Evaluation Information Evaluation Date 07/27/17 PT-OP-B Current Condition Start: 09/28/17 15:21 Freq: Status: Active Protocol: Document 10/12/17 13:45 DCW (Rec: 10/12/17 18:33 DCW [id number]) Current Condition History of Current Condition Onset Date 02/05/17 History of Current Condition See Pt's initial evaluation in Therapy Source Current Functional Impairments (Reported) Functional Limitations- Mobility/Gait Transfers:W/C<->Mat Stand- pivot: Independent PT-OP-C Subjective Start: 09/28/17 15:21 Freq: Status: Active Protocol: Document 05/14/20 09:45 DCW (Rec: 05/14/20 10:30 DCW [id number]) OP-PT Subjective Patient Comments Patient Comments I had one of my annual physicals this morning, and I' m feeling pretty good, just tired. PT-OP-D Balance Start: 10/12/17 18:11 Freq: Status: Active Protocol: Document 02/20/20 09:45 DCW (Rec: 02/20/20 10:33 DCW [id number]) OP-PT Balance Assessment Standing Balance Standing Balance Comments Double leg, Eyes open: 1' Donis Balance Assessment Evaluation Sitting to Standing Ability Independent w/Hands Unsupported Stance 30 seconds Sitting Unsupported, Feet on Floor Safely- 2 minutes Standing to Sitting Ability Assist, Control w/Hands Transfer Ability Supervision, Verbal Cues Unsupported Stance- Eyes Closed Supervision, 10 seconds Unsupported Stance- Eyes Open Independent, <30 seconds Reaching Forward Standing Safely, 5 inches Pick- Up Object From Floor Supervision Look Behind Shoulder - Standing Turns Sideways Only Turning 360 Degrees Supervision/Verbal Cues Unsupported Stance, Alternating Feet on Assist to Prevent Fall Stair Unsupported Tandem Stance Small Step- 30 seconds Unilateral Leg Stance Lifts Leg/Unable to Hold Total Score Donis Total Score (out of 56 points) 31 Donis Impairment Rating 40 to 59% Impaired (Score 23- 33) Mejia Fall Scale Copyright Permission PT-OP-E Functional Tests Start: 10/12/17 18:11 Freq: Status: Active Protocol: Document 02/20/20 09:45 DCW (Rec: 02/20/20 10:33 DCW [id number]) Functional Tests 6 Minute Walk Test Distance 921' Device Used 4WW PT-OP-G Mobility & Gait Start: 12/23/18 10:02 Freq: Status: Active Protocol: Document 02/20/20 09:45 DCW (Rec: 02/20/20 10:33 DCW [id number]) OP Gait Assessment Gait Gait Assistance Required: Contact Guard Assist Distance (Feet) 295 Assistive Devices Assistive Device None,Gait Belt Gait Deviations General Gait Pattern Antalgic,Ataxic,Decreased Stride Length,Decreased Feet Clearance,Flexed Trunk,Lateral Trunk Lean PT-OP-M Strength Start: 10/12/17 18:11 Freq: Status: Active Protocol: Document 02/20/20 09:45 DCW (Rec: 02/20/20 10:33 DCW [id number]) Hip Strength Hip Manual Muscle Testing Right Flexion (L2) 5 Normal Abduction 4+ Good+ Adduction 5 Normal Left Flexion (L2) 4+ Good+ Abduction 4 Good Adduction 4+ Good+ Knee Strength Knee Manual Muscle Testing Right Flexion (S2) 4 Good Extension (L3) 4+ Good+ Left Flexion (S2) 4+ Good+ Extension (L3) 4+ Good+ Ankle/Foot Strength Ankle and Foot Manual Muscle Testing Right Dorsiflexion (L4) 2 Poor Plantarflexion (S1) 3+ Fair+ Left Dorsiflexion (L4) 4 Good Plantarflexion (S1) 4 Good PT-OP-Q Treatments Start: 09/28/17 15:21 Freq: Status: Active Protocol: Document 05/14/20 09:45 DCW (Rec: 05/14/20 10:30 DCW [id number]) Gym Equipment Shuttle Recovery Bilateral Heel Raises Resistance 100# Reps/Time x60 Unilateral Squats Resistance 87# Shuttle Recovery Platform Stable Reps/Time x20 each Bilateral Squats Resistance 150# Shuttle Recovery Platform Stable Reps/Time x30 Therapeutic Exercises Standing Exercises Hip Abduction Standing Exercise Name Abduction Side bilateral Resistance 10# Reps/Minutes x20 Hamstring curls Standing Exercise Name HS curls at rail Side bilateral Resistance 10# Equipment Used // bars Reps/Minutes x20 Standing Marching Standing Exercise Name Marching Side bilateral Resistance 10# Equipment Used // bars Gait Training Gait Activity 3 Description Ambulate /s AD Device Used none Level of Assistance CGA Distance/Duration 200' x1 PT-OP-T Assessment and Plan Start: 09/28/17 15:21 Freq: Status: Active Protocol: Document 05/14/20 09:45 DCW (Rec: 05/14/20 10:30 DCW [id number]) Physical Therapy Assessment Impairments Impairments Activity Tolerance,Balance, Functional Activities, Functional Mobility,Gait,ROM, Strength Goals Eight Impairment Unassisted Gait Short Term Goal (STG) Pt to ambulate 300' SBA /s AD STG Duration Met Flight Security Specialist Goal (LTG) Pt to ambulate 400' SBA /s AD LTG Duration 05/21/20 Seven Impairment Donis Short Term Goal (STG) Pt to score 22/56 on Donis Balance scale STG Duration Met Detention Goal (LTG) Pt to score 35/56 on Donis Balance scale LTG Duration 05/21/20 Six Impairment Static Standing Balance Short Term Goal (STG) Pt to stand independently for 2 minutes STG Duration Met Flight Security Specialist Goal (LTG) Pt to stand independently for 3 minutes LTG Duration 03/21/20 Five Impairment 6 MWT Detention Goal (LTG) Pt to ambulate 1000' without rest using 4WW during 6 MWT (02/20/20: 921') LTG Duration 05/21/20 Four Impairment Foot slap Short Term Goal (STG) Pt to regularly wear R AFO to limit foot drop and help normalize gait pattern STG Duration Met Three Impairment Transfers Short Term Goal (STG) Pt to transfer independently from mat<->w/c with no assistive devices STG Duration Met Two Impairment Ankle weakness Detention Goal (LTG) Pt to display 2/5 MMT in R DF, 4/5 MMT in R PF, and 4+/5 MMT in all other bilateral ankle movements LTG Duration 05/21/20 One Impairment Activity tolerance Detention Goal (LTG) Pt to tolerate activity up to 15 minutes without a break LTG Duration 05/21/20 Progress Towards Goals Progress Towards Goals Slow Progress due to Activity Tolerance,Slow Progress due to Medical Issues Assessment Summary Assessment Pt forgot his AFO today, and therefore his ambulation ability declined a little, increased left weight shift during right swing, with right circumduction to help clear foot. However, pt did appear to be ambulating with improved posture, much more upright than usual, and significantly less SOB. Physical Therapy Plan Frequency and Duration Frequency of Treatment 1x/Week Duration of Treatment 3 months Plan of Care Start Date 02/20/20 Plan of Care End Date 05/21/20 Therapeutic Interventions Therapeutic Interventions Aquatic Therapy,Balance Training,Gait Training,Home Exercise Program,Manual Therapy,Neuromuscular Re- education,Soft Tissue Mobilization,Therapeutic Activities,Therapeutic Exercises Next Visit Focus/Plan Next Note Type Treatment Note Next Visit Plan Continue focus on opposing arm swing during gait, increasing activity tolerance, increasing gait /s an AD, and improving balance
--- NOTE | 2020-05-21 12:30 | PT.OTN ---
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 with return to pre-existing conscious level, subsequent encounter (05/21/20) History of falling (05/21/20) Physical Therapy Treatment Note PT-OP-A Visit Information Start: 09/28/17 15:21 Freq: Status: Active Protocol: Document 05/21/20 09:45 DCW (Rec: 05/21/20 12:30 DCW [id number]) Out-Patient Physical Therapy Visit Information Visit Information Visit Type Progress Note Visit Start Time 09:45 Visit Stop Time 10:30 Total Visit Minutes 45 Visit Number 06/09 Number of CHIEF OF STAFF Visits 0 Evaluation Information Evaluation Date 07/27/17 PT-OP-B Current Condition Start: 09/28/17 15:21 Freq: Status: Active Protocol: Document 10/12/17 13:45 DCW (Rec: 10/12/17 18:33 DCW [id number]) Current Condition History of Current Condition Onset Date 02/05/17 History of Current Condition See Pt's initial evaluation in Therapy Source Current Functional Impairments (Reported) Functional Limitations- Mobility/Gait Transfers:W/C<->Mat Stand- pivot: Independent PT-OP-C Subjective Start: 09/28/17 15:21 Freq: Status: Active Protocol: Document 05/21/20 09:45 DCW (Rec: 05/21/20 12:30 DCW [id number]) OP-PT Subjective Patient Comments Patient Comments My back has really been giving me trouble the past few days. PT-OP-D Balance Start: 10/12/17 18:11 Freq: Status: Active Protocol: Document 05/21/20 09:45 DCW (Rec: 05/21/20 10:24 DCW [id number]) OP-PT Balance Assessment Standing Balance Standing Balance Comments Double leg, Eyes open: 1' Donis Balance Assessment Evaluation Sitting to Standing Ability Independent w/Hands Unsupported Stance 30 seconds Sitting Unsupported, Feet on Floor Safely- 2 minutes Standing to Sitting Ability Assist, Control w/Hands Transfer Ability Supervision, Verbal Cues Unsupported Stance- Eyes Closed Supervision, 10 seconds Unsupported Stance- Eyes Open Assist to attain, 15 secs Reaching Forward Standing Safely, 5 inches Pick- Up Object From Floor Supervision Look Behind Shoulder - Standing Supervision w/Turning Turning 360 Degrees Requires Assistance Unsupported Stance, Alternating Feet on 2 Steps w/Minimum Assist Stair Unsupported Tandem Stance Small Step- 30 seconds Unilateral Leg Stance Lifts Leg/Unable to Hold Total Score Donis Total Score (out of 56 points) 29 Donis Impairment Rating 40 to 59% Impaired (Score 23- 33) Mejia Fall Scale Copyright Permission PT-OP-E Functional Tests Start: 10/12/17 18:11 Freq: Status: Active Protocol: Document 05/21/20 09:45 DCW (Rec: 05/21/20 10:24 DCW [id number]) Functional Tests 6 Minute Walk Test Distance 910' Device Used 4WW PT-OP-G Mobility & Gait Start: 12/23/18 10:02 Freq: Status: Active Protocol: Document 05/21/20 09:45 DCW (Rec: 05/21/20 10:24 DCW [id number]) OP Gait Assessment Gait Gait Assistance Required: Standby Assistance Distance (Feet) 910 Assistive Devices Assistive Device Gait Belt,4 Wheeled Walker Gait Deviations General Gait Pattern Antalgic,Ataxic,Decreased Stride Length,Decreased Feet Clearance,Flexed Trunk,Lateral Trunk Lean PT-OP-M Strength Start: 10/12/17 18:11 Freq: Status: Active Protocol: Document 05/21/20 09:45 DCW (Rec: 05/21/20 10:24 DCW [id number]) Hip Strength Hip Manual Muscle Testing Right Flexion (L2) 5 Normal Abduction 4+ Good+ Adduction 5 Normal Left Flexion (L2) 5 Normal Abduction 4+ Good+ Adduction 4+ Good+ Knee Strength Knee Manual Muscle Testing Right Flexion (S2) 4 Good Extension (L3) 5 Normal Left Flexion (S2) 5 Normal Extension (L3) 5 Normal Ankle/Foot Strength Ankle and Foot Manual Muscle Testing Right Dorsiflexion (L4) 2 Poor Plantarflexion (S1) 3+ Fair+ Left Dorsiflexion (L4) 4 Good Plantarflexion (S1) 4 Good PT-OP-Q Treatments Start: 09/28/17 15:21 Freq: Status: Active Protocol: Document 05/21/20 09:45 DCW (Rec: 05/21/20 12:30 DCW [id number]) Neuro Re-Education Treatment Other Activities 1 Details Testing Comments 6MWT, MMT, Donis Balance, Static standing PT-OP-T Assessment and Plan Start: 09/28/17 15:21 Freq: Status: Active Protocol: Document 05/21/20 09:45 DCW (Rec: 05/21/20 12:30 DCW [id number]) Physical Therapy Assessment Impairments Impairments Activity Tolerance,Balance, Functional Activities, Functional Mobility,Gait,ROM, Strength Goals Eight Impairment Unassisted Gait Short Term Goal (STG) Pt to ambulate 300' SBA /s AD STG Duration Met Prison Goal (LTG) Pt to ambulate 400' SBA /s AD LTG Duration 08/19/20 Seven Impairment Donis Short Term Goal (STG) Pt to score 22/56 on Donis Balance scale STG Duration Met Carton Catcher Goal (LTG) Pt to score 35/56 on Donis Balance scale LTG Duration 08/19/20 Six Impairment Static Standing Balance Short Term Goal (STG) Pt to stand independently for 2 minutes STG Duration Met Carton Catcher Goal (LTG) Pt to stand independently for 3 minutes LTG Duration 08/19/20 - Improving Five Impairment 6 MWT Carton Catcher Goal (LTG) Pt to ambulate 1000' without rest using 4WW during 6 MWT (05/21/20: 910') LTG Duration 08/19/20 Four Impairment Foot slap Short Term Goal (STG) Pt to regularly wear R AFO to limit foot drop and help normalize gait pattern STG Duration Met Three Impairment Transfers Short Term Goal (STG) Pt to transfer independently from mat<->w/c with no assistive devices STG Duration Met Two Impairment Ankle weakness Carton Catcher Goal (LTG) Pt to display 2/5 MMT in R DF, 4/5 MMT in R PF, and 4+/5 MMT in all other bilateral ankle movements LTG Duration 08/19/20 One Impairment Activity tolerance Carton Catcher Goal (LTG) Pt to tolerate activity up to 15 minutes without a break LTG Duration 08/19/20 Progress Towards Goals Progress Towards Goals Slow Progress due to Activity Tolerance,Slow Progress due to Medical Issues Assessment Summary Assessment Pt static standing balance improved from last reassessment to 1'54 today. Other than that, fairly unchanging scores in Donis and 6 MWT. Pt does display some mild MMT improvements. Pt did admit prior to the start today 's visit that his back was hurting, and it was noticeably affecting him today during the testing. Skilled therapy should still help pt improve activity tolerance and safety during mobility. Physical Therapy Plan Frequency and Duration Frequency of Treatment 1x/Week Duration of Treatment 3 months Plan of Care Start Date 05/21/20 Plan of Care End Date 08/19/20 Therapeutic Interventions Therapeutic Interventions Aquatic Therapy,Balance Training,Gait Training,Home Exercise Program,Manual Therapy,Neuromuscular Re- education,Soft Tissue Mobilization,Therapeutic Activities,Therapeutic Exercises Next Visit Focus/Plan Next Note Type Treatment Note Next Visit Plan Continue focus on opposing arm swing during gait, increasing activity tolerance, increasing gait /s an AD, and improving balance
--- NOTE | 2020-05-21 12:30 | PT.OPPOC ---
Physical, Occupational & Speech Therapy At [facility] 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 with return to pre-existing conscious level, subsequent encounter (05/21/20) History of falling (05/21/20) Visit Care Team Role Provider Type Elver Eubanks MD Attending Provider Physician Family Provider Primary Care Provider Specialty: Internal Medicine Address: [address] [place] [address], [facility] Email: [email or web address] Plan Of Care PT-OP-T Assessment and Plan Start: 09/28/17 15:21 Freq: Status: Active Protocol: Document 05/21/20 09:45 DCW (Rec: 05/21/20 12:30 DCW [id number]) Physical Therapy Assessment Impairments Impairments Activity Tolerance,Balance, Functional Activities, Functional Mobility,Gait,ROM, Strength Goals Eight Impairment Unassisted Gait Short Term Goal (STG) Pt to ambulate 300' SBA /s AD STG Duration Met Skilled Nursing Goal (LTG) Pt to ambulate 400' SBA /s AD LTG Duration 08/19/20 Seven Impairment Donis Short Term Goal (STG) Pt to score 22/56 on Donis Balance scale STG Duration Met Art Supervisor Goal (LTG) Pt to score 35/56 on Donis Balance scale LTG Duration 08/19/20 Six Impairment Static Standing Balance Short Term Goal (STG) Pt to stand independently for 2 minutes STG Duration Met Skilled Nursing Goal (LTG) Pt to stand independently for 3 minutes LTG Duration 08/19/20 - Improving Five Impairment 6 MWT Skilled Nursing Goal (LTG) Pt to ambulate 1000' without rest using 4WW during 6 MWT (05/21/20: 910') LTG Duration 08/19/20 Four Impairment Foot slap Short Term Goal (STG) Pt to regularly wear R AFO to limit foot drop and help normalize gait pattern STG Duration Met Three Impairment Transfers Short Term Goal (STG) Pt to transfer independently from mat<->w/c with no assistive devices STG Duration Met Two Impairment Ankle weakness Skilled Nursing Goal (LTG) Pt to display 2/5 MMT in R DF, 4/5 MMT in R PF, and 4+/5 MMT in all other bilateral ankle movements LTG Duration 08/19/20 One Impairment Activity tolerance Skilled Nursing Goal (LTG) Pt to tolerate activity up to 15 minutes without a break LTG Duration 08/19/20 Progress Towards Goals Progress Towards Goals Slow Progress due to Activity Tolerance,Slow Progress due to Medical Issues Assessment Summary Assessment Pt static standing balance improved from last reassessment to today. Other than that, fairly unchanging scores in Donis and 6 MWT. Pt does display some mild MMT improvements. Pt did admit prior to the start today 's visit that his back was hurting, and it was noticeably affecting him today during the testing. Skilled therapy should still help pt improve activity tolerance and safety during mobility. Physical Therapy Plan Frequency and Duration Frequency of Treatment 1x/Week Duration of Treatment 3 months Plan of Care Start Date 05/21/20 Plan of Care End Date 08/19/20 Therapeutic Interventions Therapeutic Interventions Aquatic Therapy,Balance Training,Gait Training,Home Exercise Program,Manual Therapy,Neuromuscular Re- education,Soft Tissue Mobilization,Therapeutic Activities,Therapeutic Exercises Next Visit Focus/Plan Next Note Type Treatment Note Next Visit Plan Continue focus on opposing arm swing during gait, increasing activity tolerance, increasing gait /s an AD, and improving balance Plan of Care Dates Plan of Care Start Date 05/21/20 Plan of Care End Date 08/19/20 Electronically Signed by: Jose Martin Freitas, PT 05/21/20 2590 Please Sign and Return: I have reviewed this Plan of Care and certify that the skilled therapy services above are required to meet the patient?s needs. Physician Signature Date Printed Name and Credentials Clinical Instructor Signature Printed Name and Credentials
--- NOTE | 2020-05-28 10:30 | PT.OTN ---
Current Diagnoses Foot drop, right foot (05/28/20) Muscle weakness (generalized) (05/28/20) Unsteadiness on feet (05/28/20) Unspecified abnormalities of gait and mobility (05/28/20) Traumatic subdural hemorrhage with loss of consciousness greater than 24 hours with return to pre-existing conscious level, subsequent encounter (05/28/20) History of falling (05/28/20) Physical Therapy Treatment Note PT-OP-A Visit Information Start: 09/28/17 15:21 Freq: Status: Active Protocol: Document 05/28/20 09:45 DCW (Rec: 05/28/20 10:30 DCW [id number]) Out-Patient Physical Therapy Visit Information Visit Information Visit Type Treatment Note Visit Start Time 09:45 Visit Stop Time 10:30 Total Visit Minutes 45 Visit Number 07/10 Number of KNOT TYING OPERATOR Visits 0 Evaluation Information Evaluation Date 07/27/17 PT-OP-B Current Condition Start: 09/28/17 15:21 Freq: Status: Active Protocol: Document 10/12/17 13:45 DCW (Rec: 10/12/17 18:33 DCW [id number]) Current Condition History of Current Condition Onset Date 02/05/17 History of Current Condition See Pt's initial evaluation in Therapy Source Current Functional Impairments (Reported) Functional Limitations- Mobility/Gait Transfers:W/C<->Mat Stand- pivot: Independent PT-OP-C Subjective Start: 09/28/17 15:21 Freq: Status: Active Protocol: Document 05/28/20 09:45 DCW (Rec: 05/28/20 10:30 DCW [id number]) OP-PT Subjective Patient Comments Patient Comments Pt reports his back is still really bothering him today. PT-OP-D Balance Start: 10/12/17 18:11 Freq: Status: Active Protocol: Document 05/21/20 09:45 DCW (Rec: 05/21/20 10:24 DCW [id number]) OP-PT Balance Assessment Standing Balance Standing Balance Comments Double leg, Eyes open: 1 Donis Balance Assessment Evaluation Sitting to Standing Ability Independent w/Hands Unsupported Stance 30 seconds Sitting Unsupported, Feet on Floor Safely- 2 minutes Standing to Sitting Ability Assist, Control w/Hands Transfer Ability Supervision, Verbal Cues Unsupported Stance- Eyes Closed Supervision, 10 seconds Unsupported Stance- Eyes Open Assist to attain, 15 secs Reaching Forward Standing Safely, 5 inches Pick- Up Object From Floor Supervision Look Behind Shoulder - Standing Supervision w/Turning Turning 360 Degrees Requires Assistance Unsupported Stance, Alternating Feet on 2 Steps w/Minimum Assist Stair Unsupported Tandem Stance Small Step- 30 seconds Unilateral Leg Stance Lifts Leg/Unable to Hold Total Score Donis Total Score (out of 56 points) 29 Donis Impairment Rating 40 to 59% Impaired (Score 23- 33) Mejia Fall Scale Copyright Permission PT-OP-E Functional Tests Start: 10/12/17 18:11 Freq: Status: Active Protocol: Document 05/21/20 09:45 DCW (Rec: 05/21/20 10:24 DCW [id number]) Functional Tests 6 Minute Walk Test Distance 910' Device Used 4WW PT-OP-G Mobility & Gait Start: 12/23/18 10:02 Freq: Status: Active Protocol: Document 05/21/20 09:45 DCW (Rec: 05/21/20 10:24 DCW [id number]) OP Gait Assessment Gait Gait Assistance Required: Standby Assistance Distance (Feet) 910 Assistive Devices Assistive Device Gait Belt,4 Wheeled Walker Gait Deviations General Gait Pattern Antalgic,Ataxic,Decreased Stride Length,Decreased Feet Clearance,Flexed Trunk,Lateral Trunk Lean PT-OP-M Strength Start: 10/12/17 18:11 Freq: Status: Active Protocol: Document 05/21/20 09:45 DCW (Rec: 05/21/20 10:24 DCW [id number]) Hip Strength Hip Manual Muscle Testing Right Flexion (L2) 5 Normal Abduction 4+ Good+ Adduction 5 Normal Left Flexion (L2) 5 Normal Abduction 4+ Good+ Adduction 4+ Good+ Knee Strength Knee Manual Muscle Testing Right Flexion (S2) 4 Good Extension (L3) 5 Normal Left Flexion (S2) 5 Normal Extension (L3) 5 Normal Ankle/Foot Strength Ankle and Foot Manual Muscle Testing Right Dorsiflexion (L4) 2 Poor Plantarflexion (S1) 3+ Fair+ Left Dorsiflexion (L4) 4 Good Plantarflexion (S1) 4 Good PT-OP-Q Treatments Start: 09/28/17 15:21 Freq: Status: Active Protocol: Document 05/28/20 09:45 DCW (Rec: 05/28/20 10:30 DCW [id number]) Therapeutic Exercises Standing Exercises Hamstring curls Standing Exercise Name HS curls at rail Side bilateral Resistance 10# Equipment Used // bars Reps/Minutes x20 Standing Marching Standing Exercise Name Marching Side bilateral Resistance 10# Equipment Used // bars Gait Training Gait Activity 3 Description Ambulate /s AD Device Used none Level of Assistance CGA Distance/Duration 200' x1 Manual Therapy Treatment Soft Tissue Mobilization Paraspinals Body Location L Lumbar Paraspinals Mobilization Type Strumming,Sustained Pressure Intensity/Depth Moderate Body Position Sidelying Piriformis Body Location L piriformis Mobilization Type Strumming,Sustained Pressure Intensity/Depth Deep Body Position Sidelying Neuro Re-Education Treatment Balance Activities 6 Details Ball/cone pick-up, ball toss PT-OP-T Assessment and Plan Start: 09/28/17 15:21 Freq: Status: Active Protocol: Document 05/28/20 09:45 DCW (Rec: 05/28/20 10:30 DCW [id number]) Physical Therapy Assessment Impairments Impairments Activity Tolerance,Balance, Functional Activities, Functional Mobility,Gait,ROM, Strength Goals Eight Impairment Unassisted Gait Short Term Goal (STG) Pt to ambulate 300' SBA /s AD STG Duration Met Herb Digger Goal (LTG) Pt to ambulate 400' SBA /s AD LTG Duration 08/19/20 Seven Impairment Donis Short Term Goal (STG) Pt to score 22/56 on Donis Balance scale STG Duration Met Herb Digger Goal (LTG) Pt to score 35/56 on Donis Balance scale LTG Duration 08/19/20 Six Impairment Static Standing Balance Short Term Goal (STG) Pt to stand independently for 2 minutes STG Duration Met Longterm Goal (LTG) Pt to stand independently for 3 minutes LTG Duration 08/19/20 - Improving Five Impairment 6 MWT Herb Digger Goal (LTG) Pt to ambulate 1000' without rest using 4WW during 6 MWT (05/21/20: 910') LTG Duration 08/19/20 Four Impairment Foot slap Short Term Goal (STG) Pt to regularly wear R AFO to limit foot drop and help normalize gait pattern STG Duration Met Three Impairment Transfers Short Term Goal (STG) Pt to transfer independently from mat<->w/c with no assistive devices STG Duration Met Two Impairment Ankle weakness Herb Digger Goal (LTG) Pt to display 2/5 MMT in R DF, 4/5 MMT in R PF, and 4+/5 MMT in all other bilateral ankle movements LTG Duration 08/19/20 One Impairment Activity tolerance Longterm Goal (LTG) Pt to tolerate activity up to 15 minutes without a break LTG Duration 08/19/20 Progress Towards Goals Progress Towards Goals Slow Progress due to Activity Tolerance,Slow Progress due to Medical Issues Assessment Summary Assessment Focused today some on STM to low back, which was tight for pt and limiting his participation and ambulation. Pt did notice relief following manual work. Physical Therapy Plan Frequency and Duration Frequency of Treatment 1x/Week Duration of Treatment 3 months Plan of Care Start Date 05/21/20 Plan of Care End Date 08/19/20 Therapeutic Interventions Therapeutic Interventions Aquatic Therapy,Balance Training,Gait Training,Home Exercise Program,Manual Therapy,Neuromuscular Re- education,Soft Tissue Mobilization,Therapeutic Activities,Therapeutic Exercises Next Visit Focus/Plan Next Note Type Treatment Note Next Visit Plan Continue focus on opposing arm swing during gait, increasing activity tolerance, increasing gait /s an AD, and improving balance
--- NOTE | 2020-06-04 10:31 | PT.OTN ---
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 with return to pre-existing conscious level, subsequent encounter (06/04/20) History of falling (06/04/20) Physical Therapy Treatment Note PT-OP-A Visit Information Start: 09/28/17 15:21 Freq: Status: Active Protocol: Document 06/04/20 09:45 DCW (Rec: 06/04/20 10:30 DCW [id number]) Out-Patient Physical Therapy Visit Information Visit Information Visit Type Treatment Note Visit Start Time 09:45 Visit Stop Time 10:30 Total Visit Minutes 45 Visit Number 3/ Number of KITCHEN WORKER Visits 0 Evaluation Information Evaluation Date 07/27/17 PT-OP-B Current Condition Start: 09/28/17 15:21 Freq: Status: Active Protocol: Document 10/12/17 13:45 DCW (Rec: 10/12/17 18:33 DCW [id number]) Current Condition History of Current Condition Onset Date 02/05/17 History of Current Condition See Pt's initial evaluation in Therapy Source Current Functional Impairments (Reported) Functional Limitations- Mobility/Gait Transfers:W/C<->Mat Stand- pivot: Independent PT-OP-C Subjective Start: 09/28/17 15:21 Freq: Status: Active Protocol: Document 06/04/20 09:45 DCW (Rec: 06/04/20 10:30 DCW [id number]) OP-PT Subjective Patient Comments Patient Comments Pt reports he is pretty good, I think. Notes his back has been much better since the STM last week. PT-OP-D Balance Start: 10/12/17 18:11 Freq: Status: Active Protocol: Document 05/21/20 09:45 DCW (Rec: 05/21/20 10:24 DCW [id number]) OP-PT Balance Assessment Standing Balance Standing Balance Comments Double leg, Eyes open: 1'54 Donis Balance Assessment Evaluation Sitting to Standing Ability Independent w/Hands Unsupported Stance 30 seconds Sitting Unsupported, Feet on Floor Safely- 2 minutes Standing to Sitting Ability Assist, Control w/Hands Transfer Ability Supervision, Verbal Cues Unsupported Stance- Eyes Closed Supervision, 10 seconds Unsupported Stance- Eyes Open Assist to attain, 15 secs Reaching Forward Standing Safely, 5 inches Pick- Up Object From Floor Supervision Look Behind Shoulder - Standing Supervision w/Turning Turning 360 Degrees Requires Assistance Unsupported Stance, Alternating Feet on 2 Steps w/Minimum Assist Stair Unsupported Tandem Stance Small Step- 30 seconds Unilateral Leg Stance Lifts Leg/Unable to Hold Total Score Donis Total Score (out of 56 points) 29 Donis Impairment Rating 40 to 59% Impaired (Score 23- 33) Mejia Fall Scale Copyright Permission PT-OP-E Functional Tests Start: 10/12/17 18:11 Freq: Status: Active Protocol: Document 05/21/20 09:45 DCW (Rec: 05/21/20 10:24 DCW [id number]) Functional Tests 6 Minute Walk Test Distance 910' Device Used 4WW PT-OP-G Mobility & Gait Start: 12/23/18 10:02 Freq: Status: Active Protocol: Document 05/21/20 09:45 DCW (Rec: 05/21/20 10:24 DCW [id number]) OP Gait Assessment Gait Gait Assistance Required: Standby Assistance Distance (Feet) 910 Assistive Devices Assistive Device Gait Belt,4 Wheeled Walker Gait Deviations General Gait Pattern Antalgic,Ataxic,Decreased Stride Length,Decreased Feet Clearance,Flexed Trunk,Lateral Trunk Lean PT-OP-M Strength Start: 10/12/17 18:11 Freq: Status: Active Protocol: Document 05/21/20 09:45 DCW (Rec: 05/21/20 10:24 DCW [id number]) Hip Strength Hip Manual Muscle Testing Right Flexion (L2) 5 Normal Abduction 4+ Good+ Adduction 5 Normal Left Flexion (L2) 5 Normal Abduction 4+ Good+ Adduction 4+ Good+ Knee Strength Knee Manual Muscle Testing Right Flexion (S2) 4 Good Extension (L3) 5 Normal Left Flexion (S2) 5 Normal Extension (L3) 5 Normal Ankle/Foot Strength Ankle and Foot Manual Muscle Testing Right Dorsiflexion (L4) 2 Poor Plantarflexion (S1) 3+ Fair+ Left Dorsiflexion (L4) 4 Good Plantarflexion (S1) 4 Good PT-OP-Q Treatments Start: 09/28/17 15:21 Freq: Status: Active Protocol: Document 06/04/20 09:45 DCW (Rec: 06/04/20 10:30 DCW [id number]) Gym Equipment Shuttle Recovery Bilateral Heel Raises Resistance 100# Reps/Time x60 Unilateral Squats Resistance 87# Shuttle Recovery Platform Stable Reps/Time x20 each Bilateral Squats Resistance 150# Shuttle Recovery Platform Stable Reps/Time x30 Therapeutic Exercises Other Exercises 1 Other Exercise Name Resisted Side-stepping Side bilateral Resistance Green Equipment Used T-band Comments // bars Gait Training Gait Activity 3 Description Ambulate /s AD Device Used none Level of Assistance CGA Distance/Duration 200' x1 Neuro Re-Education Treatment Balance Activities 6 Details Ball/cone pick-up, ball toss PT-OP-T Assessment and Plan Start: 09/28/17 15:21 Freq: Status: Active Protocol: Document 06/04/20 09:45 DCW (Rec: 06/04/20 10:30 DCW [id number]) Physical Therapy Assessment Impairments Impairments Activity Tolerance,Balance, Functional Activities, Functional Mobility,Gait,ROM, Strength Goals Eight Impairment Unassisted Gait Short Term Goal (STG) Pt to ambulate 300' SBA /s AD STG Duration Met Half-Way Goal (LTG) Pt to ambulate 400' SBA /s AD LTG Duration 08/19/20 Seven Impairment Donis Short Term Goal (STG) Pt to score 22/56 on Donis Balance scale STG Duration Met Half-Way Goal (LTG) Pt to score 35/56 on Donis Balance scale LTG Duration 08/19/20 Six Impairment Static Standing Balance Short Term Goal (STG) Pt to stand independently for 2 minutes STG Duration Met Half-Way Goal (LTG) Pt to stand independently for 3 minutes LTG Duration 08/19/20 - Improving Five Impairment 6 MWT Half-Way Goal (LTG) Pt to ambulate 1000' without rest using 4WW during 6 MWT (05/21/20: 910') LTG Duration 08/19/20 Four Impairment Foot slap Short Term Goal (STG) Pt to regularly wear R AFO to limit foot drop and help normalize gait pattern STG Duration Met Three Impairment Transfers Short Term Goal (STG) Pt to transfer independently from mat<->w/c with no assistive devices STG Duration Met Two Impairment Ankle weakness Half-Way Goal (LTG) Pt to display 2/5 MMT in R DF, 4/5 MMT in R PF, and 4+/5 MMT in all other bilateral ankle movements LTG Duration 08/19/20 One Impairment Activity tolerance Gang Investigator Goal (LTG) Pt to tolerate activity up to 15 minutes without a break LTG Duration 08/19/20 Progress Towards Goals Progress Towards Goals Slow Progress due to Activity Tolerance,Slow Progress due to Medical Issues Assessment Summary Assessment Pt doing much better today, his low back pain was not limiting him. Physical Therapy Plan Frequency and Duration Frequency of Treatment 1x/Week Duration of Treatment 3 months Plan of Care Start Date 05/21/20 Plan of Care End Date 08/19/20 Therapeutic Interventions Therapeutic Interventions Aquatic Therapy,Balance Training,Gait Training,Home Exercise Program,Manual Therapy,Neuromuscular Re- education,Soft Tissue Mobilization,Therapeutic Activities,Therapeutic Exercises Next Visit Focus/Plan Next Note Type Treatment Note Next Visit Plan Continue focus on opposing arm swing during gait, increasing activity tolerance, increasing gait /s an AD, and improving balance
--- NOTE | 2020-06-11 10:28 | PT.OTN ---
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 with return to pre-existing conscious level, subsequent encounter (06/11/20) History of falling (06/11/20) Physical Therapy Treatment Note PT-OP-A Visit Information Start: 09/28/17 15:21 Freq: Status: Active Protocol: Document 06/11/20 09:45 DCW (Rec: 06/11/20 10:28 DCW [id number]) Out-Patient Physical Therapy Visit Information Visit Information Visit Type Treatment Note Visit Start Time 09:45 Visit Stop Time 10:30 Total Visit Minutes 45 Visit Number 4/ Number of DENTAL DIRECTOR Visits 0 Evaluation Information Evaluation Date 07/27/17 PT-OP-B Current Condition Start: 09/28/17 15:21 Freq: Status: Active Protocol: Document 10/12/17 13:45 DCW (Rec: 10/12/17 18:33 DCW [id number]) Current Condition History of Current Condition Onset Date 02/05/17 History of Current Condition See Pt's initial evaluation in Therapy Source Current Functional Impairments (Reported) Functional Limitations- Mobility/Gait Transfers:W/C<->Mat Stand- pivot: Independent PT-OP-C Subjective Start: 09/28/17 15:21 Freq: Status: Active Protocol: Document 06/11/20 09:45 DCW (Rec: 06/11/20 10:28 DCW [id number]) OP-PT Subjective Patient Comments Patient Comments Pt reports he is doing well today. PT-OP-D Balance Start: 10/12/17 18:11 Freq: Status: Active Protocol: Document 05/21/20 09:45 DCW (Rec: 05/21/20 10:24 DCW [id number]) OP-PT Balance Assessment Standing Balance Standing Balance Comments Double leg, Eyes open: 1 Donis Balance Assessment Evaluation Sitting to Standing Ability Independent w/Hands Unsupported Stance 30 seconds Sitting Unsupported, Feet on Floor Safely- 2 minutes Standing to Sitting Ability Assist, Control w/Hands Transfer Ability Supervision, Verbal Cues Unsupported Stance- Eyes Closed Supervision, 10 seconds Unsupported Stance- Eyes Open Assist to attain, 15 secs Reaching Forward Standing Safely, 5 inches Pick- Up Object From Floor Supervision Look Behind Shoulder - Standing Supervision w/Turning Turning 360 Degrees Requires Assistance Unsupported Stance, Alternating Feet on 2 Steps w/Minimum Assist Stair Unsupported Tandem Stance Small Step- 30 seconds Unilateral Leg Stance Lifts Leg/Unable to Hold Total Score Donis Total Score (out of 56 points) 29 Donis Impairment Rating 40 to 59% Impaired (Score 23- 33) Mejia Fall Scale Copyright Permission PT-OP-E Functional Tests Start: 10/12/17 18:11 Freq: Status: Active Protocol: Document 05/21/20 09:45 DCW (Rec: 05/21/20 10:24 DCW [id number]) Functional Tests 6 Minute Walk Test Distance 910' Device Used 4WW PT-OP-G Mobility & Gait Start: 12/23/18 10:02 Freq: Status: Active Protocol: Document 05/21/20 09:45 DCW (Rec: 05/21/20 10:24 DCW [id number]) OP Gait Assessment Gait Gait Assistance Required: Standby Assistance Distance (Feet) 910 Assistive Devices Assistive Device Gait Belt,4 Wheeled Walker Gait Deviations General Gait Pattern Antalgic,Ataxic,Decreased Stride Length,Decreased Feet Clearance,Flexed Trunk,Lateral Trunk Lean PT-OP-M Strength Start: 10/12/17 18:11 Freq: Status: Active Protocol: Document 05/21/20 09:45 DCW (Rec: 05/21/20 10:24 DCW [id number]) Hip Strength Hip Manual Muscle Testing Right Flexion (L2) 5 Normal Abduction 4+ Good+ Adduction 5 Normal Left Flexion (L2) 5 Normal Abduction 4+ Good+ Adduction 4+ Good+ Knee Strength Knee Manual Muscle Testing Right Flexion (S2) 4 Good Extension (L3) 5 Normal Left Flexion (S2) 5 Normal Extension (L3) 5 Normal Ankle/Foot Strength Ankle and Foot Manual Muscle Testing Right Dorsiflexion (L4) 2 Poor Plantarflexion (S1) 3+ Fair+ Left Dorsiflexion (L4) 4 Good Plantarflexion (S1) 4 Good PT-OP-Q Treatments Start: 09/28/17 15:21 Freq: Status: Active Protocol: Document 06/11/20 09:45 DCW (Rec: 06/11/20 10:28 DCW [id number]) Gym Equipment Shuttle Recovery Bilateral Heel Raises Resistance 100# Reps/Time x60 Unilateral Squats Resistance 87# Shuttle Recovery Platform Stable Reps/Time x20 each Bilateral Squats Resistance 150# Shuttle Recovery Platform Stable Reps/Time x30 Therapeutic Exercises Standing Exercises Hip Abduction Standing Exercise Name Abduction Side bilateral Resistance Yellow Equipment Used T-band Reps/Minutes x20 Hamstring curls Standing Exercise Name HS curls at rail Side bilateral Resistance 10# Equipment Used // bars Reps/Minutes x20 Standing Marching Standing Exercise Name Marching Side bilateral Resistance 10# Equipment Used // bars Gait Training Gait Activity 3 Description Ambulate /s AD Device Used none Level of Assistance CGA Distance/Duration 190' x1 Neuro Re-Education Treatment Balance Activities 6 Details Ball/cone pick-up, ball toss PT-OP-T Assessment and Plan Start: 09/28/17 15:21 Freq: Status: Active Protocol: Document 06/11/20 09:45 DCW (Rec: 06/11/20 10:28 DCW [id number]) Physical Therapy Assessment Impairments Impairments Activity Tolerance,Balance, Functional Activities, Functional Mobility,Gait,ROM, Strength Goals Eight Impairment Unassisted Gait Short Term Goal (STG) Pt to ambulate 300' SBA /s AD STG Duration Met Residential Goal (LTG) Pt to ambulate 400' SBA /s AD LTG Duration 08/19/20 Seven Impairment Donis Short Term Goal (STG) Pt to score 22/56 on Donis Balance scale STG Duration Met Residential Goal (LTG) Pt to score 35/56 on Donis Balance scale LTG Duration 08/19/20 Six Impairment Static Standing Balance Short Term Goal (STG) Pt to stand independently for 2 minutes STG Duration Met Residential Goal (LTG) Pt to stand independently for 3 minutes LTG Duration 08/19/20 - Improving Five Impairment 6 MWT Patient Coordinator Front Desk Goal (LTG) Pt to ambulate 1000' without rest using 4WW during 6 MWT (05/21/20: 910') LTG Duration 08/19/20 Four Impairment Foot slap Short Term Goal (STG) Pt to regularly wear R AFO to limit foot drop and help normalize gait pattern STG Duration Met Three Impairment Transfers Short Term Goal (STG) Pt to transfer independently from mat<->w/c with no assistive devices STG Duration Met Two Impairment Ankle weakness Patient Coordinator Front Desk Goal (LTG) Pt to display 2/5 MMT in R DF, 4/5 MMT in R PF, and 4+/5 MMT in all other bilateral ankle movements LTG Duration 08/19/20 One Impairment Activity tolerance Residential Goal (LTG) Pt to tolerate activity up to 15 minutes without a break LTG Duration 08/19/20 Progress Towards Goals Progress Towards Goals Slow Progress due to Activity Tolerance,Slow Progress due to Medical Issues Assessment Summary Assessment Pt tolerated treatment well today, fewer rest breaks needed. Pt's gait for the first 3/4 of his lap looked to be improved, more stability and a firmer step. Physical Therapy Plan Frequency and Duration Frequency of Treatment 1x/Week Duration of Treatment 3 months Plan of Care Start Date 05/21/20 Plan of Care End Date 08/19/20 Therapeutic Interventions Therapeutic Interventions Aquatic Therapy,Balance Training,Gait Training,Home Exercise Program,Manual Therapy,Neuromuscular Re- education,Soft Tissue Mobilization,Therapeutic Activities,Therapeutic Exercises Next Visit Focus/Plan Next Note Type Treatment Note Next Visit Plan Continue focus on opposing arm swing during gait, increasing activity tolerance, increasing gait /s an AD, and improving balance
--- NOTE | 2020-06-18 10:30 | PT.OTN ---
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 with return to pre-existing conscious level, subsequent encounter (06/18/20) History of falling (06/18/20) Physical Therapy Treatment Note PT-OP-A Visit Information Start: 09/28/17 15:21 Freq: Status: Active Protocol: Document 06/18/20 09:45 DCW (Rec: 06/18/20 10:30 DCW [id number]) Out-Patient Physical Therapy Visit Information Visit Information Visit Type Treatment Note Visit Start Time 09:45 Visit Stop Time 10:30 Total Visit Minutes 45 Visit Number 5/ Number of MANAGER MOTOR Visits 0 Evaluation Information Evaluation Date 07/27/17 PT-OP-B Current Condition Start: 09/28/17 15:21 Freq: Status: Active Protocol: Document 10/12/17 13:45 DCW (Rec: 10/12/17 18:33 DCW [id number]) Current Condition History of Current Condition Onset Date 02/05/17 History of Current Condition See Pt's initial evaluation in Therapy Source Current Functional Impairments (Reported) Functional Limitations- Mobility/Gait Transfers:W/C<->Mat Stand- pivot: Independent PT-OP-C Subjective Start: 09/28/17 15:21 Freq: Status: Active Protocol: Document 06/18/20 09:45 DCW (Rec: 06/18/20 10:30 DCW [id number]) OP-PT Subjective Patient Comments Patient Comments Pt reports he is feeling good today PT-OP-D Balance Start: 10/12/17 18:11 Freq: Status: Active Protocol: Document 05/21/20 09:45 DCW (Rec: 05/21/20 10:24 DCW [id number]) OP-PT Balance Assessment Standing Balance Standing Balance Comments Double leg, Eyes open: 1' Donis Balance Assessment Evaluation Sitting to Standing Ability Independent w/Hands Unsupported Stance 30 seconds Sitting Unsupported, Feet on Floor Safely- 2 minutes Standing to Sitting Ability Assist, Control w/Hands Transfer Ability Supervision, Verbal Cues Unsupported Stance- Eyes Closed Supervision, 10 seconds Unsupported Stance- Eyes Open Assist to attain, 15 secs Reaching Forward Standing Safely, 5 inches Pick- Up Object From Floor Supervision Look Behind Shoulder - Standing Supervision w/Turning Turning 360 Degrees Requires Assistance Unsupported Stance, Alternating Feet on 2 Steps w/Minimum Assist Stair Unsupported Tandem Stance Small Step- 30 seconds Unilateral Leg Stance Lifts Leg/Unable to Hold Total Score Donis Total Score (out of 56 points) 29 Donis Impairment Rating 40 to 59% Impaired (Score 23- 33) Mejia Fall Scale Copyright Permission PT-OP-E Functional Tests Start: 10/12/17 18:11 Freq: Status: Active Protocol: Document 05/21/20 09:45 DCW (Rec: 05/21/20 10:24 DCW [id number]) Functional Tests 6 Minute Walk Test Distance 910' Device Used 4WW PT-OP-G Mobility & Gait Start: 12/23/18 10:02 Freq: Status: Active Protocol: Document 05/21/20 09:45 DCW (Rec: 05/21/20 10:24 DCW [id number]) OP Gait Assessment Gait Gait Assistance Required: Standby Assistance Distance (Feet) 910 Assistive Devices Assistive Device Gait Belt,4 Wheeled Walker Gait Deviations General Gait Pattern Antalgic,Ataxic,Decreased Stride Length,Decreased Feet Clearance,Flexed Trunk,Lateral Trunk Lean PT-OP-M Strength Start: 10/12/17 18:11 Freq: Status: Active Protocol: Document 05/21/20 09:45 DCW (Rec: 05/21/20 10:24 DCW [id number]) Hip Strength Hip Manual Muscle Testing Right Flexion (L2) 5 Normal Abduction 4+ Good+ Adduction 5 Normal Left Flexion (L2) 5 Normal Abduction 4+ Good+ Adduction 4+ Good+ Knee Strength Knee Manual Muscle Testing Right Flexion (S2) 4 Good Extension (L3) 5 Normal Left Flexion (S2) 5 Normal Extension (L3) 5 Normal Ankle/Foot Strength Ankle and Foot Manual Muscle Testing Right Dorsiflexion (L4) 2 Poor Plantarflexion (S1) 3+ Fair+ Left Dorsiflexion (L4) 4 Good Plantarflexion (S1) 4 Good PT-OP-Q Treatments Start: 09/28/17 15:21 Freq: Status: Active Protocol: Document 06/18/20 09:45 DCW (Rec: 06/18/20 10:30 DCW [id number]) Gym Equipment Shuttle Recovery Bilateral Heel Raises Resistance 100# Reps/Time x60 Unilateral Squats Resistance 87# Shuttle Recovery Platform Stable Reps/Time x20 each Bilateral Squats Resistance 150# Shuttle Recovery Platform Stable Reps/Time x30 Therapeutic Exercises Standing Exercises Standing Marching Standing Exercise Name Toe-taps Side bilateral Resistance 5# Equipment Used // bars Other Exercises 1 Other Exercise Name Resisted Side-stepping Side bilateral Resistance Green Equipment Used T-band Comments // bars Gait Training Gait Activity 3 Description Ambulate /s AD Device Used none Level of Assistance CGA Distance/Duration 250' x1 Neuro Re-Education Treatment Balance Activities 6 Details Ball/cone pick-up, ball toss PT-OP-T Assessment and Plan Start: 09/28/17 15:21 Freq: Status: Active Protocol: Document 06/18/20 09:45 DCW (Rec: 06/18/20 10:30 DCW [id number]) Physical Therapy Assessment Impairments Impairments Activity Tolerance,Balance, Functional Activities, Functional Mobility,Gait,ROM, Strength Goals Eight Impairment Unassisted Gait Short Term Goal (STG) Pt to ambulate 300' SBA /s AD STG Duration Met Quality Intern Goal (LTG) Pt to ambulate 400' SBA /s AD LTG Duration 08/19/20 Seven Impairment Donis Short Term Goal (STG) Pt to score 22/56 on Donis Balance scale STG Duration Met Quality Intern Goal (LTG) Pt to score 35/56 on Donis Balance scale LTG Duration 08/19/20 Six Impairment Static Standing Balance Short Term Goal (STG) Pt to stand independently for 2 minutes STG Duration Met Quality Intern Goal (LTG) Pt to stand independently for 3 minutes LTG Duration 08/19/20 - Improving Five Impairment 6 MWT Long-Term Goal (LTG) Pt to ambulate 1000' without rest using 4WW during 6 MWT (05/21/20: 910') LTG Duration 08/19/20 Four Impairment Foot slap Short Term Goal (STG) Pt to regularly wear R AFO to limit foot drop and help normalize gait pattern STG Duration Met Three Impairment Transfers Short Term Goal (STG) Pt to transfer independently from mat<->w/c with no assistive devices STG Duration Met Two Impairment Ankle weakness Long-Term Goal (LTG) Pt to display 2/5 MMT in R DF, 4/5 MMT in R PF, and 4+/5 MMT in all other bilateral ankle movements LTG Duration 08/19/20 One Impairment Activity tolerance Quality Intern Goal (LTG) Pt to tolerate activity up to 15 minutes without a break LTG Duration 08/19/20 Progress Towards Goals Progress Towards Goals Slow Progress due to Activity Tolerance,Slow Progress due to Medical Issues Assessment Summary Assessment Pt did well today, continues to display great improvement in in quality of step. Physical Therapy Plan Frequency and Duration Frequency of Treatment 1x/Week Duration of Treatment 3 months Plan of Care Start Date 05/21/20 Plan of Care End Date 08/19/20 Therapeutic Interventions Therapeutic Interventions Aquatic Therapy,Balance Training,Gait Training,Home Exercise Program,Manual Therapy,Neuromuscular Re- education,Soft Tissue Mobilization,Therapeutic Activities,Therapeutic Exercises Next Visit Focus/Plan Next Note Type Treatment Note Next Visit Plan Continue focus on opposing arm swing during gait, increasing activity tolerance, increasing gait /s an AD, and improving balance
--- NOTE | 2020-06-25 10:35 | PT.OTN ---
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 with return to pre-existing conscious level, subsequent encounter (06/25/20) History of falling (06/25/20) Physical Therapy Treatment Note PT-OP-A Visit Information Start: 09/28/17 15:21 Freq: Status: Active Protocol: Document 06/25/20 09:45 DCW (Rec: 06/25/20 10:35 DCW [id number]) Out-Patient Physical Therapy Visit Information Visit Information Visit Type Treatment Note Visit Start Time 09:45 Visit Stop Time 10:30 Total Visit Minutes 45 Visit Number 11/07 Number of ELECTRONIC IMAGING SYSTEM OPERATOR Visits 0 Evaluation Information Evaluation Date 07/27/17 PT-OP-B Current Condition Start: 09/28/17 15:21 Freq: Status: Active Protocol: Document 10/12/17 13:45 DCW (Rec: 10/12/17 18:33 DCW [id number]) Current Condition History of Current Condition Onset Date 02/05/17 History of Current Condition See Pt's initial evaluation in Therapy Source Current Functional Impairments (Reported) Functional Limitations- Mobility/Gait Transfers:W/C<->Mat Stand- pivot: Independent PT-OP-C Subjective Start: 09/28/17 15:21 Freq: Status: Active Protocol: Document 06/25/20 09:45 DCW (Rec: 06/25/20 10:35 DCW [id number]) OP-PT Subjective Patient Comments Patient Comments Pt has no new complaints today . PT-OP-D Balance Start: 10/12/17 18:11 Freq: Status: Active Protocol: Document 05/21/20 09:45 DCW (Rec: 05/21/20 10:24 DCW [id number]) OP-PT Balance Assessment Standing Balance Standing Balance Comments Double leg, Eyes open: 1'54 Donis Balance Assessment Evaluation Sitting to Standing Ability Independent w/Hands Unsupported Stance 30 seconds Sitting Unsupported, Feet on Floor Safely- 2 minutes Standing to Sitting Ability Assist, Control w/Hands Transfer Ability Supervision, Verbal Cues Unsupported Stance- Eyes Closed Supervision, 10 seconds Unsupported Stance- Eyes Open Assist to attain, 15 secs Reaching Forward Standing Safely, 5 inches Pick- Up Object From Floor Supervision Look Behind Shoulder - Standing Supervision w/Turning Turning 360 Degrees Requires Assistance Unsupported Stance, Alternating Feet on 2 Steps w/Minimum Assist Stair Unsupported Tandem Stance Small Step- 30 seconds Unilateral Leg Stance Lifts Leg/Unable to Hold Total Score Donis Total Score (out of 56 points) 29 Donis Impairment Rating 40 to 59% Impaired (Score 23- 33) Mejia Fall Scale Copyright Permission PT-OP-E Functional Tests Start: 10/12/17 18:11 Freq: Status: Active Protocol: Document 05/21/20 09:45 DCW (Rec: 05/21/20 10:24 DCW [id number]) Functional Tests 6 Minute Walk Test Distance 910' Device Used 4WW PT-OP-G Mobility & Gait Start: 12/23/18 10:02 Freq: Status: Active Protocol: Document 05/21/20 09:45 DCW (Rec: 05/21/20 10:24 DCW [id number]) OP Gait Assessment Gait Gait Assistance Required: Standby Assistance Distance (Feet) 910 Assistive Devices Assistive Device Gait Belt,4 Wheeled Walker Gait Deviations General Gait Pattern Antalgic,Ataxic,Decreased Stride Length,Decreased Feet Clearance,Flexed Trunk,Lateral Trunk Lean PT-OP-M Strength Start: 10/12/17 18:11 Freq: Status: Active Protocol: Document 05/21/20 09:45 DCW (Rec: 05/21/20 10:24 DCW [id number]) Hip Strength Hip Manual Muscle Testing Right Flexion (L2) 5 Normal Abduction 4+ Good+ Adduction 5 Normal Left Flexion (L2) 5 Normal Abduction 4+ Good+ Adduction 4+ Good+ Knee Strength Knee Manual Muscle Testing Right Flexion (S2) 4 Good Extension (L3) 5 Normal Left Flexion (S2) 5 Normal Extension (L3) 5 Normal Ankle/Foot Strength Ankle and Foot Manual Muscle Testing Right Dorsiflexion (L4) 2 Poor Plantarflexion (S1) 3+ Fair+ Left Dorsiflexion (L4) 4 Good Plantarflexion (S1) 4 Good PT-OP-Q Treatments Start: 09/28/17 15:21 Freq: Status: Active Protocol: Document 06/25/20 09:45 DCW (Rec: 06/25/20 10:35 DCW [id number]) Gym Equipment Shuttle Recovery Bilateral Heel Raises Resistance 100# Reps/Time x60 Unilateral Squats Resistance 87# Shuttle Recovery Platform Stable Reps/Time x20 each Bilateral Squats Resistance 150# Shuttle Recovery Platform Stable Reps/Time x30 Therapeutic Exercises Other Exercises Step-ups Other Exercise Name Step-ups Equipment Used 6 steps 1 Other Exercise Name Resisted Side-stepping Side bilateral Resistance Green Equipment Used T-band Comments // bars Gait Training Gait Activity 3 Description Ambulate /s AD Device Used none Level of Assistance CGA Distance/Duration 190' x1 Neuro Re-Education Treatment Balance Activities 6 Details Ball/cone pick-up, ball toss PT-OP-T Assessment and Plan Start: 09/28/17 15:21 Freq: Status: Active Protocol: Document 06/25/20 09:45 DCW (Rec: 06/25/20 10:35 DCW [id number]) Physical Therapy Assessment Impairments Impairments Activity Tolerance,Balance, Functional Activities, Functional Mobility,Gait,ROM, Strength Goals Eight Impairment Unassisted Gait Short Term Goal (STG) Pt to ambulate 300' SBA /s AD STG Duration Met Care Home Goal (LTG) Pt to ambulate 400' SBA /s AD LTG Duration 08/19/20 Seven Impairment Donis Short Term Goal (STG) Pt to score 22/56 on Donis Balance scale STG Duration Met Care Home Goal (LTG) Pt to score 35/56 on Donis Balance scale LTG Duration 08/19/20 Six Impairment Static Standing Balance Short Term Goal (STG) Pt to stand independently for 2 minutes STG Duration Met Care Home Goal (LTG) Pt to stand independently for 3 minutes LTG Duration 08/19/20 - Improving Five Impairment 6 MWT Power Plant Operator Goal (LTG) Pt to ambulate 1000' without rest using 4WW during 6 MWT (05/21/20: 910') LTG Duration 08/19/20 Four Impairment Foot slap Short Term Goal (STG) Pt to regularly wear R AFO to limit foot drop and help normalize gait pattern STG Duration Met Three Impairment Transfers Short Term Goal (STG) Pt to transfer independently from mat<->w/c with no assistive devices STG Duration Met Two Impairment Ankle weakness Care Home Goal (LTG) Pt to display 2/5 MMT in R DF, 4/5 MMT in R PF, and 4+/5 MMT in all other bilateral ankle movements LTG Duration 08/19/20 One Impairment Activity tolerance Power Plant Operator Goal (LTG) Pt to tolerate activity up to 15 minutes without a break LTG Duration 08/19/20 Progress Towards Goals Progress Towards Goals Slow Progress due to Activity Tolerance,Slow Progress due to Medical Issues Assessment Summary Assessment Pt a little more fatigued today, required more water and rest breaks. Physical Therapy Plan Frequency and Duration Frequency of Treatment 1x/Week Duration of Treatment 3 months Plan of Care Start Date 05/21/20 Plan of Care End Date 08/19/20 Therapeutic Interventions Therapeutic Interventions Aquatic Therapy,Balance Training,Gait Training,Home Exercise Program,Manual Therapy,Neuromuscular Re- education,Soft Tissue Mobilization,Therapeutic Activities,Therapeutic Exercises Next Visit Focus/Plan Next Note Type Treatment Note Next Visit Plan Continue focus on opposing arm swing during gait, increasing activity tolerance, increasing gait /s an AD, and improving balance
--- NOTE | 2020-07-02 10:30 | PT.OTN ---
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 greater than 24 hours with return to pre-existing conscious level, subsequent encounter (07/02/20) History of falling (07/02/20) Physical Therapy Treatment Note PT-OP-A Visit Information Start: 09/28/17 15:21 Freq: Status: Active Protocol: Document 07/02/20 09:45 DCW (Rec: 07/02/20 10:30 DCW [id number]) Out-Patient Physical Therapy Visit Information Visit Information Visit Type Treatment Note Visit Start Time 09:45 Visit Stop Time 10:30 Total Visit Minutes 45 Visit Number 12/07 Number of BULLET LUBRICANT MIXER Visits 0 Evaluation Information Evaluation Date 07/27/17 PT-OP-B Current Condition Start: 09/28/17 15:21 Freq: Status: Active Protocol: Document 10/12/17 13:45 DCW (Rec: 10/12/17 18:33 DCW [id number]) Current Condition History of Current Condition Onset Date 02/05/17 History of Current Condition See Pt's initial evaluation in Therapy Source Current Functional Impairments (Reported) Functional Limitations- Mobility/Gait Transfers:W/C<->Mat Stand- pivot: Independent PT-OP-C Subjective Start: 09/28/17 15:21 Freq: Status: Active Protocol: Document 07/02/20 09:45 DCW (Rec: 07/02/20 10:30 DCW [id number]) OP-PT Subjective Patient Comments Patient Comments Pt reports he is a little frustrated that he isn't seeing as much progress recently as he was in the beginning PT-OP-D Balance Start: 10/12/17 18:11 Freq: Status: Active Protocol: Document 05/21/20 09:45 DCW (Rec: 05/21/20 10:24 DCW [id number]) OP-PT Balance Assessment Standing Balance Standing Balance Comments Double leg, Eyes open: 1'54 Donis Balance Assessment Evaluation Sitting to Standing Ability Independent w/Hands Unsupported Stance 30 seconds Sitting Unsupported, Feet on Floor Safely- 2 minutes Standing to Sitting Ability Assist, Control w/Hands Transfer Ability Supervision, Verbal Cues Unsupported Stance- Eyes Closed Supervision, 10 seconds Unsupported Stance- Eyes Open Assist to attain, 15 secs Reaching Forward Standing Safely, 5 inches Pick- Up Object From Floor Supervision Look Behind Shoulder - Standing Supervision w/Turning Turning 360 Degrees Requires Assistance Unsupported Stance, Alternating Feet on 2 Steps w/Minimum Assist Stair Unsupported Tandem Stance Small Step- 30 seconds Unilateral Leg Stance Lifts Leg/Unable to Hold Total Score Donis Total Score (out of 56 points) 29 Donis Impairment Rating 40 to 59% Impaired (Score 23- 33) Mejia Fall Scale Copyright Permission PT-OP-E Functional Tests Start: 10/12/17 18:11 Freq: Status: Active Protocol: Document 05/21/20 09:45 DCW (Rec: 05/21/20 10:24 DCW [id number]) Functional Tests 6 Minute Walk Test Distance 910' Device Used 4WW PT-OP-G Mobility & Gait Start: 12/23/18 10:02 Freq: Status: Active Protocol: Document 05/21/20 09:45 DCW (Rec: 05/21/20 10:24 DCW [id number]) OP Gait Assessment Gait Gait Assistance Required: Standby Assistance Distance (Feet) 910 Assistive Devices Assistive Device Gait Belt,4 Wheeled Walker Gait Deviations General Gait Pattern Antalgic,Ataxic,Decreased Stride Length,Decreased Feet Clearance,Flexed Trunk,Lateral Trunk Lean PT-OP-M Strength Start: 10/12/17 18:11 Freq: Status: Active Protocol: Document 05/21/20 09:45 DCW (Rec: 05/21/20 10:24 DCW [id number]) Hip Strength Hip Manual Muscle Testing Right Flexion (L2) 5 Normal Abduction 4+ Good+ Adduction 5 Normal Left Flexion (L2) 5 Normal Abduction 4+ Good+ Adduction 4+ Good+ Knee Strength Knee Manual Muscle Testing Right Flexion (S2) 4 Good Extension (L3) 5 Normal Left Flexion (S2) 5 Normal Extension (L3) 5 Normal Ankle/Foot Strength Ankle and Foot Manual Muscle Testing Right Dorsiflexion (L4) 2 Poor Plantarflexion (S1) 3+ Fair+ Left Dorsiflexion (L4) 4 Good Plantarflexion (S1) 4 Good PT-OP-Q Treatments Start: 09/28/17 15:21 Freq: Status: Active Protocol: Document 07/02/20 09:45 DCW (Rec: 07/02/20 10:30 DCW [id number]) Gym Equipment Shuttle Recovery Bilateral Heel Raises Resistance 100# Reps/Time x60 Unilateral Squats Resistance 87# Shuttle Recovery Platform Stable Reps/Time x20 each Bilateral Squats Resistance 150# Shuttle Recovery Platform Stable Reps/Time x30 Therapeutic Exercises Other Exercises 2 Other Exercise Name Hurdles Equipment Used // bars Comments Forward, Dise-stepping Gait Training Gait Activity 3 Description Ambulate /s AD Device Used none Level of Assistance CGA Distance/Duration 190' x1 Neuro Re-Education Treatment Balance Activities 6 Details Ball/cone pick-up, ball toss PT-OP-T Assessment and Plan Start: 09/28/17 15:21 Freq: Status: Active Protocol: Document 07/02/20 09:45 DCW (Rec: 07/02/20 10:30 DCW [id number]) Physical Therapy Assessment Impairments Impairments Activity Tolerance,Balance, Functional Activities, Functional Mobility,Gait,ROM, Strength Goals Eight Impairment Unassisted Gait Short Term Goal (STG) Pt to ambulate 300' SBA /s AD STG Duration Met Halfway Goal (LTG) Pt to ambulate 400' SBA /s AD LTG Duration 08/19/20 Seven Impairment Donis Short Term Goal (STG) Pt to score 22/56 on Donis Balance scale STG Duration Met Reproduction Technician Goal (LTG) Pt to score 35/56 on Donis Balance scale LTG Duration 08/19/20 Six Impairment Static Standing Balance Short Term Goal (STG) Pt to stand independently for 2 minutes STG Duration Met Reproduction Technician Goal (LTG) Pt to stand independently for 3 minutes LTG Duration 08/19/20 - Improving Five Impairment 6 MWT Halfway Goal (LTG) Pt to ambulate 1000' without rest using 4WW during 6 MWT (05/21/20: 910') LTG Duration 08/19/20 Four Impairment Foot slap Short Term Goal (STG) Pt to regularly wear R AFO to limit foot drop and help normalize gait pattern STG Duration Met Three Impairment Transfers Short Term Goal (STG) Pt to transfer independently from mat<->w/c with no assistive devices STG Duration Met Two Impairment Ankle weakness Reproduction Technician Goal (LTG) Pt to display 2/5 MMT in R DF, 4/5 MMT in R PF, and 4+/5 MMT in all other bilateral ankle movements LTG Duration 08/19/20 One Impairment Activity tolerance Halfway Goal (LTG) Pt to tolerate activity up to 15 minutes without a break LTG Duration 08/19/20 Progress Towards Goals Progress Towards Goals Slow Progress due to Activity Tolerance,Slow Progress due to Medical Issues Assessment Summary Assessment Pt has plateaued fairly recently, no changes one way or the other, but still fatigued. Physical Therapy Plan Frequency and Duration Frequency of Treatment 1x/Week Duration of Treatment 3 months Plan of Care Start Date 05/21/20 Plan of Care End Date 08/19/20 Therapeutic Interventions Therapeutic Interventions Aquatic Therapy,Balance Training,Gait Training,Home Exercise Program,Manual Therapy,Neuromuscular Re- education,Soft Tissue Mobilization,Therapeutic Activities,Therapeutic Exercises Next Visit Focus/Plan Next Note Type Treatment Note Next Visit Plan Continue focus on opposing arm swing during gait, increasing activity tolerance, increasing gait /s an AD, and improving balance
--- NOTE | 2020-07-09 10:28 | PT.OTN ---
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 greater than 24 hours with return to pre-existing conscious level, subsequent encounter (07/09/20) History of falling (07/09/20) Physical Therapy Treatment Note PT-OP-A Visit Information Start: 09/28/17 15:21 Freq: Status: Active Protocol: Document 07/09/20 09:45 DCW (Rec: 07/09/20 10:28 DCW [id number]) Out-Patient Physical Therapy Visit Information Visit Information Visit Type Treatment Note Visit Start Time 09:45 Visit Stop Time 10:30 Total Visit Minutes 45 Visit Number 01/07 Number of CANE LOADER Visits 0 Evaluation Information Evaluation Date 07/27/17 PT-OP-B Current Condition Start: 09/28/17 15:21 Freq: Status: Active Protocol: Document 10/12/17 13:45 DCW (Rec: 10/12/17 18:33 DCW [id number]) Current Condition History of Current Condition Onset Date 02/05/17 History of Current Condition See Pt's initial evaluation in Therapy Source Current Functional Impairments (Reported) Functional Limitations- Mobility/Gait Transfers:W/C<->Mat Stand- pivot: Independent PT-OP-C Subjective Start: 09/28/17 15:21 Freq: Status: Active Protocol: Document 07/09/20 09:45 DCW (Rec: 07/09/20 10:27 DCW [id number]) OP-PT Subjective Patient Comments Patient Comments Pt reports he has been having a problem this week. Major pain in my back and hip. I've fallen on it once. PT-OP-D Balance Start: 10/12/17 18:11 Freq: Status: Active Protocol: Document 05/21/20 09:45 DCW (Rec: 05/21/20 10:24 DCW [id number]) OP-PT Balance Assessment Standing Balance Standing Balance Comments Double leg, Eyes open: 1'54 Donis Balance Assessment Evaluation Sitting to Standing Ability Independent w/Hands Unsupported Stance 30 seconds Sitting Unsupported, Feet on Floor Safely- 2 minutes Standing to Sitting Ability Assist, Control w/Hands Transfer Ability Supervision, Verbal Cues Unsupported Stance- Eyes Closed Supervision, 10 seconds Unsupported Stance- Eyes Open Assist to attain, 15 secs Reaching Forward Standing Safely, 5 inches Pick- Up Object From Floor Supervision Look Behind Shoulder - Standing Supervision w/Turning Turning 360 Degrees Requires Assistance Unsupported Stance, Alternating Feet on 2 Steps w/Minimum Assist Stair Unsupported Tandem Stance Small Step- 30 seconds Unilateral Leg Stance Lifts Leg/Unable to Hold Total Score Donis Total Score (out of 56 points) 29 Donis Impairment Rating 40 to 59% Impaired (Score 23- 33) Mejia Fall Scale Copyright Permission PT-OP-E Functional Tests Start: 10/12/17 18:11 Freq: Status: Active Protocol: Document 05/21/20 09:45 DCW (Rec: 05/21/20 10:24 DCW [id number]) Functional Tests 6 Minute Walk Test Distance 910' Device Used 4WW PT-OP-G Mobility & Gait Start: 12/23/18 10:02 Freq: Status: Active Protocol: Document 05/21/20 09:45 DCW (Rec: 05/21/20 10:24 DCW [id number]) OP Gait Assessment Gait Gait Assistance Required: Standby Assistance Distance (Feet) 910 Assistive Devices Assistive Device Gait Belt,4 Wheeled Walker Gait Deviations General Gait Pattern Antalgic,Ataxic,Decreased Stride Length,Decreased Feet Clearance,Flexed Trunk,Lateral Trunk Lean PT-OP-M Strength Start: 10/12/17 18:11 Freq: Status: Active Protocol: Document 05/21/20 09:45 DCW (Rec: 05/21/20 10:24 DCW [id number]) Hip Strength Hip Manual Muscle Testing Right Flexion (L2) 5 Normal Abduction 4+ Good+ Adduction 5 Normal Left Flexion (L2) 5 Normal Abduction 4+ Good+ Adduction 4+ Good+ Knee Strength Knee Manual Muscle Testing Right Flexion (S2) 4 Good Extension (L3) 5 Normal Left Flexion (S2) 5 Normal Extension (L3) 5 Normal Ankle/Foot Strength Ankle and Foot Manual Muscle Testing Right Dorsiflexion (L4) 2 Poor Plantarflexion (S1) 3+ Fair+ Left Dorsiflexion (L4) 4 Good Plantarflexion (S1) 4 Good PT-OP-Q Treatments Start: 09/28/17 15:21 Freq: Status: Active Protocol: Document 07/09/20 09:45 DCW (Rec: 07/09/20 10:27 DCW [id number]) Gym Equipment Shuttle Recovery Bilateral Heel Raises Resistance 100# Reps/Time x60 Unilateral Squats Resistance 87# Shuttle Recovery Platform Stable Reps/Time x20 each Bilateral Squats Resistance 150# Shuttle Recovery Platform Stable Reps/Time x30 Therapeutic Exercises Other Exercises Step-ups Other Exercise Name Step-ups Equipment Used 6 steps 1 Other Exercise Name Resisted Side-stepping Side bilateral Resistance Green Equipment Used T-band Comments // bars Gait Training Gait Activity 3 Description Ambulate /s AD Device Used none Level of Assistance CGA Distance/Duration 150' x1 Neuro Re-Education Treatment Balance Activities 6 Details Ball/cone pick-up, ball toss PT-OP-T Assessment and Plan Start: 09/28/17 15:21 Freq: Status: Active Protocol: Document 07/09/20 09:45 DCW (Rec: 07/09/20 10:27 DCW [id number]) Physical Therapy Assessment Impairments Impairments Activity Tolerance,Balance, Functional Activities, Functional Mobility,Gait,ROM, Strength Goals Eight Impairment Unassisted Gait Short Term Goal (STG) Pt to ambulate 300' SBA /s AD STG Duration Met Miller Head Assistant Wet Process Goal (LTG) Pt to ambulate 400' SBA /s AD LTG Duration 08/19/20 Seven Impairment Donis Short Term Goal (STG) Pt to score 22/56 on Donis Balance scale STG Duration Met Detention Goal (LTG) Pt to score 35/56 on Donis Balance scale LTG Duration 08/19/20 Six Impairment Static Standing Balance Short Term Goal (STG) Pt to stand independently for 2 minutes STG Duration Met Detention Goal (LTG) Pt to stand independently for 3 minutes LTG Duration 08/19/20 - Improving Five Impairment 6 MWT Miller Head Assistant Wet Process Goal (LTG) Pt to ambulate 1000' without rest using 4WW during 6 MWT (05/21/20: 910') LTG Duration 08/19/20 Four Impairment Foot slap Short Term Goal (STG) Pt to regularly wear R AFO to limit foot drop and help normalize gait pattern STG Duration Met Three Impairment Transfers Short Term Goal (STG) Pt to transfer independently from mat<->w/c with no assistive devices STG Duration Met Two Impairment Ankle weakness Miller Head Assistant Wet Process Goal (LTG) Pt to display 2/5 MMT in R DF, 4/5 MMT in R PF, and 4+/5 MMT in all other bilateral ankle movements LTG Duration 08/19/20 One Impairment Activity tolerance Detention Goal (LTG) Pt to tolerate activity up to 15 minutes without a break LTG Duration 08/19/20 Progress Towards Goals Progress Towards Goals Slow Progress due to Activity Tolerance,Slow Progress due to Medical Issues Assessment Summary Assessment Pt demonstrated significantly more difficulty today during his session, increased fatigue , decreased balance/stability Physical Therapy Plan Frequency and Duration Frequency of Treatment 1x/Week Duration of Treatment 3 months Plan of Care Start Date 05/21/20 Plan of Care End Date 08/19/20 Therapeutic Interventions Therapeutic Interventions Aquatic Therapy,Balance Training,Gait Training,Home Exercise Program,Manual Therapy,Neuromuscular Re- education,Soft Tissue Mobilization,Therapeutic Activities,Therapeutic Exercises Next Visit Focus/Plan Next Note Type Treatment Note Next Visit Plan Continue focus on opposing arm swing during gait, increasing activity tolerance, increasing gait /s an AD, and improving balance
--- NOTE | 2020-07-16 10:11 | PT-OP ANOTE ---
Pt arrived for his visit today (07/16/20), and requested going somewhere private to talk. Pt relayed that he had been hospitalized last week for a UTI and inflammation of his prostate, and has been very weak and felt unsafe walking. Additionally, pt reported he had been incontinent a few times yesterday, so he did not want to participate in any therapy today. Pt did not want to cancel today's appointment, however, because he was worried about the clinic's attendance policy, and additionally was worried about the possibility of negatively affecting the Therapist's compensation if he did not attend his appointment. Pt was assured this was not something he ever needed to worry about. Pt has an appointment with his PCP for his post-hospitalization follow-up next week during his normal PT appointment time, so both today's appointment and next weeks appointment was canceled. A letter was left with the pt for his , requesting she obtain a note from pt's PCP, stating that he could return to skilled PT.
--- NOTE | 2020-07-30 10:58 | PT.OTN ---
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 hours with return to pre-existing conscious level, subsequent encounter (07/30/20) History of falling (07/30/20) Physical Therapy Treatment Note PT-OP-A Visit Information Start: 09/28/17 15:21 Freq: Status: Active Protocol: Document 07/30/20 09:45 DCW (Rec: 07/30/20 10:58 DCW [id number]) Out-Patient Physical Therapy Visit Information Visit Information Visit Type Re-Evaluation Visit Start Time 09:45 Visit Stop Time 10:30 Total Visit Minutes 45 Visit Number 06/09 Number of SHIELD OPERATOR Visits 0 Evaluation Information Evaluation Date 07/27/17 PT-OP-B Current Condition Start: 09/28/17 15:21 Freq: Status: Active Protocol: Document 10/12/17 13:45 DCW (Rec: 10/12/17 18:33 DCW [id number]) Current Condition History of Current Condition Onset Date 02/05/17 History of Current Condition See Pt's initial evaluation in Therapy Source Current Functional Impairments (Reported) Functional Limitations- Mobility/Gait Transfers:W/C<->Mat Stand- pivot: Independent PT-OP-C Subjective Start: 09/28/17 15:21 Freq: Status: Active Protocol: Document 07/30/20 09:45 DCW (Rec: 07/30/20 10:58 DCW [id number]) OP-PT Subjective Patient Comments Patient Comments Recent appointments had been canceled after had been hospitalized last month for a UTI and inflammation of his prostate. Pt has been very weak and felt unsafe walking, resulting in he and his relying much more on his wheelchair vs his 4WW. Pt did bring a referral from his PCP stating continuing PT was appropriate at this time. PT-OP-D Balance Start: 10/12/17 18:11 Freq: Status: Active Protocol: Document 07/30/20 09:45 DCW (Rec: 07/30/20 10:27 DCW [id number]) OP-PT Balance Assessment Standing Balance Standing Balance Comments Double leg, Eyes open: 42 Donis Balance Assessment Evaluation Sitting to Standing Ability Several Tries w/Hands Unsupported Stance 30 seconds Standing to Sitting Ability Assist, Control w/Hands Transfer Ability Supervision, Verbal Cues Unsupported Stance- Eyes Closed 3 seconds Unsupported Stance- Eyes Open Assist to attain,<15 secs Reaching Forward Standing Safely, 2 inches Pick- Up Object From Floor Within 2 inches, Unable Look Behind Shoulder - Standing Supervision w/Turning Turning 360 Degrees Requires Assistance Unsupported Stance, Alternating Feet on Assist to Prevent Fall Stair Unsupported Tandem Stance Assist to Step-15 seconds Unilateral Leg Stance Lifts Leg/Unable to Hold Total Score Donis Total Score (out of 56 points) 18 Donis Impairment Rating 60 to 79% Impaired (Score 12- 22) Mejia Fall Scale Copyright Permission PT-OP-E Functional Tests Start: 10/12/17 18:11 Freq: Status: Active Protocol: Document 07/30/20 09:45 DCW (Rec: 07/30/20 10:27 DCW [id number]) Functional Tests 6 Minute Walk Test Distance 720' Device Used 4WW PT-OP-G Mobility & Gait Start: 12/23/18 10:02 Freq: Status: Active Protocol: Document 07/30/20 09:45 DCW (Rec: 07/30/20 10:27 DCW [id number]) OP Gait Assessment Gait Gait Assistance Required: Contact Guard Assist Distance (Feet) 720 Assistive Devices Assistive Device Gait Belt,4 Wheeled Walker Gait Deviations General Gait Pattern Antalgic,Ataxic,Decreased Stride Length,Decreased Feet Clearance,Flexed Trunk,Lateral Trunk Lean PT-OP-M Strength Start: 10/12/17 18:11 Freq: Status: Active Protocol: Document 07/30/20 09:45 DCW (Rec: 07/30/20 10:27 DCW [id number]) Hip Strength Hip Manual Muscle Testing Right Flexion (L2) 3 Fair Abduction 3+ Fair+ Adduction 3 Fair Left Flexion (L2) 4 Good Abduction 4- Good- Adduction 3 Fair Knee Strength Knee Manual Muscle Testing Right Flexion (S2) 4- Good- Extension (L3) 4 Good Left Flexion (S2) 5 Normal Extension (L3) 5 Normal Ankle/Foot Strength Ankle and Foot Manual Muscle Testing Right Dorsiflexion (L4) 2- Poor- Plantarflexion (S1) 3- Fair- Left Dorsiflexion (L4) 3+ Fair+ Plantarflexion (S1) 3+ Fair+ PT-OP-Q Treatments Start: 09/28/17 15:21 Freq: Status: Active Protocol: Document 07/30/20 09:45 DCW (Rec: 07/30/20 10:58 DCW [id number]) Neuro Re-Education Treatment Other Activities 1 Details Testing Comments 6MWT, MMT, Donis Balance, Static standing PT-OP-T Assessment and Plan Start: 09/28/17 15:21 Freq: Status: Active Protocol: Document 07/30/20 09:45 DCW (Rec: 07/30/20 10:58 DCW [id number]) Physical Therapy Assessment Impairments Impairments Activity Tolerance,Balance, Functional Activities, Functional Mobility,Gait,ROM, Strength Goals Eight Impairment Unassisted Gait Short Term Goal (STG) Pt to ambulate 300' SBA /s AD STG Duration Met Recreation Supervisor Goal (LTG) Pt to ambulate 400' SBA /s AD LTG Duration 10/30/20 Seven Impairment Donis Short Term Goal (STG) Pt to score 22/56 on Donis Balance scale STG Duration Met Senior Care Goal (LTG) Pt to score 35/56 on Donis Balance scale LTG Duration 10/30/20 - recent decline to 18/ 56 Six Impairment Static Standing Balance Short Term Goal (STG) Pt to stand independently for 2 minutes STG Duration Met Senior Care Goal (LTG) Pt to stand independently for 3 minutes LTG Duration 10/30/20 - recent decline Five Impairment 6 MWT Recreation Supervisor Goal (LTG) Pt to ambulate 1000' without rest using 4WW during 6 MWT LTG Duration 10/30/20 - recent decline to 720 ' Four Impairment Foot slap Short Term Goal (STG) Pt to regularly wear R AFO to limit foot drop and help normalize gait pattern STG Duration Met Three Impairment Transfers Short Term Goal (STG) Pt to transfer independently from mat<->w/c with no assistive devices STG Duration Met Two Impairment Ankle weakness Senior Care Goal (LTG) Pt to display 2/5 MMT in R DF, 4/5 MMT in R PF, and 4+/5 MMT in all other bilateral ankle movements LTG Duration 10/30/20 - recent decline One Impairment Activity tolerance Senior Care Goal (LTG) Pt to tolerate activity up to 15 minutes without a break LTG Duration 10/30/20 - recent decline Progress Towards Goals Progress Towards Goals Slow Progress due to Activity Tolerance,Slow Progress due to Medical Issues Assessment Summary Assessment Reassessment was performed today following pt's recent hospitalization due to a UTI and prostate inflammation. Pt has declined significantly in all areas. 6MWT decreased from 910' to 720', Donis declined from 29/56 to 18/56, static standing balance decreased from 1'54 to 42, and pt MMT declined. Pt obviously frustrated regarding this decline, but also understands that he is still doing better than he had been when he first began therapy, and knows that if he works hard, he will show improvement again. Physical Therapy Plan Frequency and Duration Frequency of Treatment 1x/Week Duration of Treatment 3 months Plan of Care Start Date 07/30/20 Plan of Care End Date 10/30/20 Therapeutic Interventions Therapeutic Interventions Aquatic Therapy,Balance Training,Gait Training,Home Exercise Program,Manual Therapy,Neuromuscular Re- education,Soft Tissue Mobilization,Therapeutic Activities,Therapeutic Exercises Next Visit Focus/Plan Next Note Type Treatment Note Next Visit Plan Continue focus on opposing arm swing during gait, increasing activity tolerance, increasing gait /s an AD, and improving balance
--- NOTE | 2020-07-30 10:59 | PT.OPPOC ---
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 hours with return to pre-existing conscious level, subsequent encounter (07/30/20) History of falling (07/30/20) Visit Care Team Role Provider Type Elver Eubanks MD Attending Provider Physician Family Provider Primary Care Provider Specialty: Internal Medicine Address: [address] [place] [address], [facility] Email: [email or web address] Plan Of Care PT-OP-T Assessment and Plan Start: 09/28/17 15:21 Freq: Status: Active Protocol: Document 07/30/20 09:45 DCW (Rec: 07/30/20 10:58 DCW [id number]) Physical Therapy Assessment Impairments Impairments Activity Tolerance,Balance, Functional Activities, Functional Mobility,Gait,ROM, Strength Goals Eight Impairment Unassisted Gait Short Term Goal (STG) Pt to ambulate 300' SBA /s AD STG Duration Met Senior Care Goal (LTG) Pt to ambulate 400' SBA /s AD LTG Duration 10/30/20 Seven Impairment Donis Short Term Goal (STG) Pt to score 22/56 on Donis Balance scale STG Duration Met Phone Manager Goal (LTG) Pt to score 35/56 on Donis Balance scale LTG Duration 10/30/20 - recent decline to 18/ 56 Six Impairment Static Standing Balance Short Term Goal (STG) Pt to stand independently for 2 minutes STG Duration Met Senior Care Goal (LTG) Pt to stand independently for 3 minutes LTG Duration 10/30/20 - recent decline Five Impairment 6 MWT Senior Care Goal (LTG) Pt to ambulate 1000' without rest using 4WW during 6 MWT LTG Duration 10/30/20 - recent decline to 720 ' Four Impairment Foot slap Short Term Goal (STG) Pt to regularly wear R AFO to limit foot drop and help normalize gait pattern STG Duration Met Three Impairment Transfers Short Term Goal (STG) Pt to transfer independently from mat<->w/c with no assistive devices STG Duration Met Two Impairment Ankle weakness Senior Care Goal (LTG) Pt to display 2/5 MMT in R DF, 4/5 MMT in R PF, and 4+/5 MMT in all other bilateral ankle movements LTG Duration 10/30/20 - recent decline One Impairment Activity tolerance Senior Care Goal (LTG) Pt to tolerate activity up to 15 minutes without a break LTG Duration 10/30/20 - recent decline Progress Towards Goals Progress Towards Goals Slow Progress due to Activity Tolerance,Slow Progress due to Medical Issues Assessment Summary Assessment Reassessment was performed today following pt's recent hospitalization due to a UTI and prostate inflammation. Pt has declined significantly in all areas. 6MWT decreased from 910' to 720', Donis declined from 29/56 to 18/56, static standing balance decreased from 1'54 to 42, and pt MMT declined. Pt obviously frustrated regarding this decline, but also understands that he is still doing better than he had been when he first began therapy, and knows that if he works hard, he will show improvement again. Physical Therapy Plan Frequency and Duration Frequency of Treatment 1x/Week Duration of Treatment 3 months Plan of Care Start Date 07/30/20 Plan of Care End Date 10/30/20 Therapeutic Interventions Therapeutic Interventions Aquatic Therapy,Balance Training,Gait Training,Home Exercise Program,Manual Therapy,Neuromuscular Re- education,Soft Tissue Mobilization,Therapeutic Activities,Therapeutic Exercises Next Visit Focus/Plan Next Note Type Treatment Note Next Visit Plan Continue focus on opposing arm swing during gait, increasing activity tolerance, increasing gait /s an AD, and improving balance Plan of Care Dates Plan of Care Start Date 07/30/20 Plan of Care End Date 10/30/20 Electronically Signed by: Jose Martin Freitas, PT 07/30/20 [id number] Please Sign and Return: I have reviewed this Plan of Care and certify that the skilled therapy services above are required to meet the patient?s needs. Physician Signature Date Printed Name and Credentials Clinical Instructor Signature Printed Name and Credentials
--- NOTE | 2020-08-06 10:30 | PT.OTN ---
Current Diagnoses Foot drop, right foot (08/06/20) Muscle weakness (generalized) (08/06/20) Unsteadiness on feet (08/06/20) Unspecified abnormalities of gait and mobility (08/06/20) Traumatic subdural hemorrhage with loss of consciousness greater than 24 hours with return to pre-existing conscious level, subsequent encounter (08/06/20) History of falling (08/06/20) Physical Therapy Treatment Note PT-OP-A Visit Information Start: 09/28/17 15:21 Freq: Status: Active Protocol: Document 08/06/20 09:45 DCW (Rec: 08/06/20 10:30 DCW [id number]) Out-Patient Physical Therapy Visit Information Visit Information Visit Type Treatment Note Visit Start Time 09:45 Visit Stop Time 10:30 Total Visit Minutes 45 Visit Number 2 Number of ASSEMBLY RIVETER Visits 0 Evaluation Information Evaluation Date 07/27/17 PT-OP-B Current Condition Start: 09/28/17 15:21 Freq: Status: Active Protocol: Document 10/12/17 13:45 DCW (Rec: 10/12/17 18:33 DCW [id number]) Current Condition History of Current Condition Onset Date 02/05/17 History of Current Condition See Pt's initial evaluation in Therapy Source Current Functional Impairments (Reported) Functional Limitations- Mobility/Gait Transfers:W/C<->Mat Stand- pivot: Independent PT-OP-C Subjective Start: 09/28/17 15:21 Freq: Status: Active Protocol: Document 08/06/20 09:45 DCW (Rec: 08/06/20 10:30 DCW [id number]) OP-PT Subjective Patient Comments Patient Comments Pt still uncomfortable walkking without his assistive device since his UTI, still relying more on his wheelchair than he had been. PT-OP-D Balance Start: 10/12/17 18:11 Freq: Status: Active Protocol: Document 07/30/20 09:45 DCW (Rec: 07/30/20 10:27 DCW [id number]) OP-PT Balance Assessment Standing Balance Standing Balance Comments Double leg, Eyes open: 42 Donis Balance Assessment Evaluation Sitting to Standing Ability Several Tries w/Hands Unsupported Stance 30 seconds Standing to Sitting Ability Assist, Control w/Hands Transfer Ability Supervision, Verbal Cues Unsupported Stance- Eyes Closed 3 seconds Unsupported Stance- Eyes Open Assist to attain,<15 secs Reaching Forward Standing Safely, 2 inches Pick- Up Object From Floor Within 2 inches, Unable Look Behind Shoulder - Standing Supervision w/Turning Turning 360 Degrees Requires Assistance Unsupported Stance, Alternating Feet on Assist to Prevent Fall Stair Unsupported Tandem Stance Assist to Step-15 seconds Unilateral Leg Stance Lifts Leg/Unable to Hold Total Score Donis Total Score (out of 56 points) 18 Dnois Impairment Rating 60 to 79% Impaired (Score 12- 22) Mejia Fall Scale Copyright Permission PT-OP-E Functional Tests Start: 10/12/17 18:11 Freq: Status: Active Protocol: Document 07/30/20 09:45 DCW (Rec: 07/30/20 10:27 DCW [id number]) Functional Tests 6 Minute Walk Test Distance 720' Device Used 4WW PT-OP-G Mobility & Gait Start: 12/23/18 10:02 Freq: Status: Active Protocol: Document 07/30/20 09:45 DCW (Rec: 07/30/20 10:27 DCW [id number]) OP Gait Assessment Gait Gait Assistance Required: Contact Guard Assist Distance (Feet) 720 Assistive Devices Assistive Device Gait Belt,4 Wheeled Walker Gait Deviations General Gait Pattern Antalgic,Ataxic,Decreased Stride Length,Decreased Feet Clearance,Flexed Trunk,Lateral Trunk Lean PT-OP-M Strength Start: 10/12/17 18:11 Freq: Status: Active Protocol: Document 07/30/20 09:45 DCW (Rec: 07/30/20 10:27 DCW [id number]) Hip Strength Hip Manual Muscle Testing Right Flexion (L2) 3 Fair Abduction 3+ Fair+ Adduction 3 Fair Left Flexion (L2) 4 Good Abduction 4- Good- Adduction 3 Fair Knee Strength Knee Manual Muscle Testing Right Flexion (S2) 4- Good- Extension (L3) 4 Good Left Flexion (S2) 5 Normal Extension (L3) 5 Normal Ankle/Foot Strength Ankle and Foot Manual Muscle Testing Right Dorsiflexion (L4) 2- Poor- Plantarflexion (S1) 3- Fair- Left Dorsiflexion (L4) 3+ Fair+ Plantarflexion (S1) 3+ Fair+ PT-OP-Q Treatments Start: 09/28/17 15:21 Freq: Status: Active Protocol: Document 08/06/20 09:45 DCW (Rec: 08/06/20 10:30 DCW [id number]) Gym Equipment Shuttle Recovery Bilateral Heel Raises Resistance 100# Reps/Time x60 Unilateral Squats Resistance 75# Shuttle Recovery Platform Stable Reps/Time x20 each Bilateral Squats Resistance 125# Shuttle Recovery Platform Stable Reps/Time x30 Therapeutic Exercises Other Exercises Step-ups Other Exercise Name Step-ups Equipment Used 6 steps Gait Training Gait Activity 1 Description Amb /c 4WW Device Used 4WW Level of Assistance SBA Distance/Duration 760' Treatment Focus Increased activity tolerance Neuro Re-Education Treatment Balance Activities 6 Details Ball/cone pick-up, ball toss PT-OP-T Assessment and Plan Start: 09/28/17 15:21 Freq: Status: Active Protocol: Document 08/06/20 09:45 DCW (Rec: 08/06/20 10:30 DCW [id number]) Physical Therapy Assessment Impairments Impairments Activity Tolerance,Balance, Functional Activities, Functional Mobility,Gait,ROM, Strength Goals Eight Impairment Unassisted Gait Short Term Goal (STG) Pt to ambulate 300' SBA /s AD STG Duration Met Dressing Room Attendant Goal (LTG) Pt to ambulate 400' SBA /s AD LTG Duration 10/30/20 Seven Impairment Donis Short Term Goal (STG) Pt to score 22/56 on Donis Balance scale STG Duration Met Dressing Room Attendant Goal (LTG) Pt to score 35/56 on Donis Balance scale LTG Duration 10/30/20 - recent decline to 18/ 56 Six Impairment Static Standing Balance Short Term Goal (STG) Pt to stand independently for 2 minutes STG Duration Met Longterm Goal (LTG) Pt to stand independently for 3 minutes LTG Duration 10/30/20 - recent decline Five Impairment 6 MWT Longterm Goal (LTG) Pt to ambulate 1000' without rest using 4WW during 6 MWT LTG Duration 10/30/20 - recent decline to 720 ' Four Impairment Foot slap Short Term Goal (STG) Pt to regularly wear R AFO to limit foot drop and help normalize gait pattern STG Duration Met Three Impairment Transfers Short Term Goal (STG) Pt to transfer independently from mat<->w/c with no assistive devices STG Duration Met Two Impairment Ankle weakness Dressing Room Attendant Goal (LTG) Pt to display 2/5 MMT in R DF, 4/5 MMT in R PF, and 4+/5 MMT in all other bilateral ankle movements LTG Duration 10/30/20 - recent decline One Impairment Activity tolerance Longterm Goal (LTG) Pt to tolerate activity up to 15 minutes without a break LTG Duration 10/30/20 - recent decline Progress Towards Goals Progress Towards Goals Slow Progress due to Activity Tolerance,Slow Progress due to Medical Issues Assessment Summary Assessment Pt still struggling with his recent decline in function secondary to his UTI hospitalization. Able to work hard in therapy, however fatigues more quickly than usual. Physical Therapy Plan Frequency and Duration Frequency of Treatment 1x/Week Duration of Treatment 3 months Plan of Care Start Date 07/30/20 Plan of Care End Date 10/30/20 Therapeutic Interventions Therapeutic Interventions Aquatic Therapy,Balance Training,Gait Training,Home Exercise Program,Manual Therapy,Neuromuscular Re- education,Soft Tissue Mobilization,Therapeutic Activities,Therapeutic Exercises Next Visit Focus/Plan Next Note Type Treatment Note Next Visit Plan Continue focus on opposing arm swing during gait, increasing activity tolerance, increasing gait /s an AD, and improving balance
--- NOTE | 2020-08-13 10:29 | PT.OTN ---
Current Diagnoses Foot drop, right foot (08/13/20) Muscle weakness (generalized) (08/13/20) Unsteadiness on feet (08/13/20) Unspecified abnormalities of gait and mobility (08/13/20) Traumatic subdural hemorrhage with loss of consciousness greater than 24 hours with return to pre-existing conscious level, subsequent encounter (08/13/20) History of falling (08/13/20) Physical Therapy Treatment Note PT-OP-A Visit Information Start: 09/28/17 15:21 Freq: Status: Active Protocol: Document 08/13/20 09:45 DCW (Rec: 08/13/20 10:29 DCW [id number]) Out-Patient Physical Therapy Visit Information Visit Information Visit Type Treatment Note Visit Start Time 09:45 Visit Stop Time 10:30 Total Visit Minutes 45 Visit Number 2 Number of SUPERINTENDENT CUSTODIAN JANITOR Visits 0 Evaluation Information Evaluation Date 07/27/17 PT-OP-B Current Condition Start: 09/28/17 15:21 Freq: Status: Active Protocol: Document 10/12/17 13:45 DCW (Rec: 10/12/17 18:33 DCW [id number]) Current Condition History of Current Condition Onset Date 02/05/17 History of Current Condition See Pt's initial evaluation in Therapy Source Current Functional Impairments (Reported) Functional Limitations- Mobility/Gait Transfers:W/C<->Mat Stand- pivot: Independent PT-OP-C Subjective Start: 09/28/17 15:21 Freq: Status: Active Protocol: Document 08/13/20 09:45 DCW (Rec: 08/13/20 10:29 DCW [id number]) OP-PT Subjective Patient Comments Patient Comments Pt feeling a little more confident today, but would still like another week of using his 4WW instead of practicing AD-free ambulation. PT-OP-D Balance Start: 10/12/17 18:11 Freq: Status: Active Protocol: Document 07/30/20 09:45 DCW (Rec: 07/30/20 10:27 DCW [id number]) OP-PT Balance Assessment Standing Balance Standing Balance Comments Double leg, Eyes open: 42 Donis Balance Assessment Evaluation Sitting to Standing Ability Several Tries w/Hands Unsupported Stance 30 seconds Standing to Sitting Ability Assist, Control w/Hands Transfer Ability Supervision, Verbal Cues Unsupported Stance- Eyes Closed 3 seconds Unsupported Stance- Eyes Open Assist to attain,<15 secs Reaching Forward Standing Safely, 2 inches Pick- Up Object From Floor Within 2 inches, Unable Look Behind Shoulder - Standing Supervision w/Turning Turning 360 Degrees Requires Assistance Unsupported Stance, Alternating Feet on Assist to Prevent Fall Stair Unsupported Tandem Stance Assist to Step-15 seconds Unilateral Leg Stance Lifts Leg/Unable to Hold Total Score Donis Total Score (out of 56 points) 18 Donis Impairment Rating 60 to 79% Impaired (Score 12- 22) Mejia Fall Scale Copyright Permission PT-OP-E Functional Tests Start: 10/12/17 18:11 Freq: Status: Active Protocol: Document 07/30/20 09:45 DCW (Rec: 07/30/20 10:27 DCW [id number]) Functional Tests 6 Minute Walk Test Distance 720' Device Used 4WW PT-OP-G Mobility & Gait Start: 12/23/18 10:02 Freq: Status: Active Protocol: Document 07/30/20 09:45 DCW (Rec: 07/30/20 10:27 DCW [id number]) OP Gait Assessment Gait Gait Assistance Required: Contact Guard Assist Distance (Feet) 720 Assistive Devices Assistive Device Gait Belt,4 Wheeled Walker Gait Deviations General Gait Pattern Antalgic,Ataxic,Decreased Stride Length,Decreased Feet Clearance,Flexed Trunk,Lateral Trunk Lean PT-OP-M Strength Start: 10/12/17 18:11 Freq: Status: Active Protocol: Document 07/30/20 09:45 DCW (Rec: 07/30/20 10:27 DCW [id number]) Hip Strength Hip Manual Muscle Testing Right Flexion (L2) 3 Fair Abduction 3+ Fair+ Adduction 3 Fair Left Flexion (L2) 4 Good Abduction 4- Good- Adduction 3 Fair Knee Strength Knee Manual Muscle Testing Right Flexion (S2) 4- Good- Extension (L3) 4 Good Left Flexion (S2) 5 Normal Extension (L3) 5 Normal Ankle/Foot Strength Ankle and Foot Manual Muscle Testing Right Dorsiflexion (L4) 2- Poor- Plantarflexion (S1) 3- Fair- Left Dorsiflexion (L4) 3+ Fair+ Plantarflexion (S1) 3+ Fair+ PT-OP-Q Treatments Start: 09/28/17 15:21 Freq: Status: Active Protocol: Document 08/13/20 09:45 DCW (Rec: 08/13/20 10:29 DCW [id number]) Gym Equipment Shuttle Recovery Bilateral Heel Raises Resistance 100# Reps/Time x60 Unilateral Squats Resistance 75# Shuttle Recovery Platform Stable Reps/Time x20 each Bilateral Squats Resistance 125# Shuttle Recovery Platform Stable Reps/Time x30 Shuttle Balance 1 Details Blue Comments Wide WILIAN Therapeutic Exercises Other Exercises Step-ups Other Exercise Name Step-ups Equipment Used 6 steps Gait Training Gait Activity 1 Description Amb /c 4WW Device Used 4WW Level of Assistance SBA Distance/Duration 570' Treatment Focus Increased activity tolerance Neuro Re-Education Treatment Balance Activities 6 Details Ball/cone pick-up, ball toss PT-OP-T Assessment and Plan Start: 09/28/17 15:21 Freq: Status: Active Protocol: Document 08/13/20 09:45 DCW (Rec: 08/13/20 10:29 DCW [id number]) Physical Therapy Assessment Impairments Impairments Activity Tolerance,Balance, Functional Activities, Functional Mobility,Gait,ROM, Strength Goals Eight Impairment Unassisted Gait Short Term Goal (STG) Pt to ambulate 300' SBA /s AD STG Duration Met Floor Manager Goal (LTG) Pt to ambulate 400' SBA /s AD LTG Duration 10/30/20 Seven Impairment Donis Short Term Goal (STG) Pt to score 22/56 on Donis Balance scale STG Duration Met Floor Manager Goal (LTG) Pt to score 35/56 on Donis Balance scale LTG Duration 10/30/20 - recent decline to 18/ 56 Six Impairment Static Standing Balance Short Term Goal (STG) Pt to stand independently for 2 minutes STG Duration Met Intermediate Goal (LTG) Pt to stand independently for 3 minutes LTG Duration 10/30/20 - recent decline Five Impairment 6 MWT Intermediate Goal (LTG) Pt to ambulate 1000' without rest using 4WW during 6 MWT LTG Duration 10/30/20 - recent decline to 720 ' Four Impairment Foot slap Short Term Goal (STG) Pt to regularly wear R AFO to limit foot drop and help normalize gait pattern STG Duration Met Three Impairment Transfers Short Term Goal (STG) Pt to transfer independently from mat<->w/c with no assistive devices STG Duration Met Two Impairment Ankle weakness Intermediate Goal (LTG) Pt to display 2/5 MMT in R DF, 4/5 MMT in R PF, and 4+/5 MMT in all other bilateral ankle movements LTG Duration 10/30/20 - recent decline One Impairment Activity tolerance Intermediate Goal (LTG) Pt to tolerate activity up to 15 minutes without a break LTG Duration 10/30/20 - recent decline Progress Towards Goals Progress Towards Goals Slow Progress due to Activity Tolerance,Slow Progress due to Medical Issues Assessment Summary Assessment Pt making some mild progress since his hospitalization, improving some with stability and activity tolerance, however still not doing as well as he was pre-UTI. Physical Therapy Plan Frequency and Duration Frequency of Treatment 1x/Week Duration of Treatment 3 months Plan of Care Start Date 07/30/20 Plan of Care End Date 10/30/20 Therapeutic Interventions Therapeutic Interventions Aquatic Therapy,Balance Training,Gait Training,Home Exercise Program,Manual Therapy,Neuromuscular Re- education,Soft Tissue Mobilization,Therapeutic Activities,Therapeutic Exercises Next Visit Focus/Plan Next Note Type Treatment Note Next Visit Plan Continue focus on opposing arm swing during gait, increasing activity tolerance, increasing gait /s an AD, and improving balance
--- NOTE | 2020-08-20 10:27 | PT.OTN ---
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 with return to pre-existing conscious level, subsequent encounter (08/20/20) History of falling (08/20/20) Physical Therapy Treatment Note PT-OP-A Visit Information Start: 09/28/17 15:21 Freq: Status: Active Protocol: Document 08/20/20 09:45 DCW (Rec: 08/20/20 10:27 DCW [id number]) Out-Patient Physical Therapy Visit Information Visit Information Visit Type Treatment Note Visit Start Time 09:45 Visit Stop Time 10:30 Total Visit Minutes 45 Visit Number 3 Number of WATER RESOURCE PROJECT MANAGER Visits 0 Evaluation Information Evaluation Date 07/27/17 PT-OP-B Current Condition Start: 09/28/17 15:21 Freq: Status: Active Protocol: Document 10/12/17 13:45 DCW (Rec: 10/12/17 18:33 DCW [id number]) Current Condition History of Current Condition Onset Date 02/05/17 History of Current Condition See Pt's initial evaluation in Therapy Source Current Functional Impairments (Reported) Functional Limitations- Mobility/Gait Transfers:W/C<->Mat Stand- pivot: Independent PT-OP-C Subjective Start: 09/28/17 15:21 Freq: Status: Active Protocol: Document 08/20/20 09:45 DCW (Rec: 08/20/20 10:27 DCW [id number]) OP-PT Subjective Patient Comments Patient Comments Pt reports he had a follow-up appointment at [facility] earlier, everything was fine. PT-OP-D Balance Start: 10/12/17 18:11 Freq: Status: Active Protocol: Document 07/30/20 09:45 DCW (Rec: 07/30/20 10:27 DCW [id number]) OP-PT Balance Assessment Standing Balance Standing Balance Comments Double leg, Eyes open: 42 Donis Balance Assessment Evaluation Sitting to Standing Ability Several Tries w/Hands Unsupported Stance 30 seconds Standing to Sitting Ability Assist, Control w/Hands Transfer Ability Supervision, Verbal Cues Unsupported Stance- Eyes Closed 3 seconds Unsupported Stance- Eyes Open Assist to attain,<15 secs Reaching Forward Standing Safely, 2 inches Pick- Up Object From Floor Within 2 inches, Unable Look Behind Shoulder - Standing Supervision w/Turning Turning 360 Degrees Requires Assistance Unsupported Stance, Alternating Feet on Assist to Prevent Fall Stair Unsupported Tandem Stance Assist to Step-15 seconds Unilateral Leg Stance Lifts Leg/Unable to Hold Total Score Donis Total Score (out of 56 points) 18 Donis Impairment Rating 60 to 79% Impaired (Score 12- 22) Mejia Fall Scale Copyright Permission PT-OP-E Functional Tests Start: 10/12/17 18:11 Freq: Status: Active Protocol: Document 07/30/20 09:45 DCW (Rec: 07/30/20 10:27 DCW [id number]) Functional Tests 6 Minute Walk Test Distance 720' Device Used 4WW PT-OP-G Mobility & Gait Start: 12/23/18 10:02 Freq: Status: Active Protocol: Document 07/30/20 09:45 DCW (Rec: 07/30/20 10:27 DCW [id number]) OP Gait Assessment Gait Gait Assistance Required: Contact Guard Assist Distance (Feet) 720 Assistive Devices Assistive Device Gait Belt,4 Wheeled Walker Gait Deviations General Gait Pattern Antalgic,Ataxic,Decreased Stride Length,Decreased Feet Clearance,Flexed Trunk,Lateral Trunk Lean PT-OP-M Strength Start: 10/12/17 18:11 Freq: Status: Active Protocol: Document 07/30/20 09:45 DCW (Rec: 07/30/20 10:27 DCW [id number]) Hip Strength Hip Manual Muscle Testing Right Flexion (L2) 3 Fair Abduction 3+ Fair+ Adduction 3 Fair Left Flexion (L2) 4 Good Abduction 4- Good- Adduction 3 Fair Knee Strength Knee Manual Muscle Testing Right Flexion (S2) 4- Good- Extension (L3) 4 Good Left Flexion (S2) 5 Normal Extension (L3) 5 Normal Ankle/Foot Strength Ankle and Foot Manual Muscle Testing Right Dorsiflexion (L4) 2- Poor- Plantarflexion (S1) 3- Fair- Left Dorsiflexion (L4) 3+ Fair+ Plantarflexion (S1) 3+ Fair+ PT-OP-Q Treatments Start: 09/28/17 15:21 Freq: Status: Active Protocol: Document 08/20/20 09:45 DCW (Rec: 08/20/20 10:27 DCW [id number]) Therapeutic Exercises Standing Exercises Hip Extension Standing Exercise Name Extension Side bilateral Resistance Yellow Equipment Used T-band Other Exercises Step-ups Other Exercise Name Step-ups Equipment Used 6 steps 1 Other Exercise Name Resisted Sidestepping Resistance Yellow Equipment Used T-band Gait Training Gait Activity 1 Description Amb /c 4WW Device Used 4WW Level of Assistance SBA Distance/Duration 680' Treatment Focus Increased activity tolerance Neuro Re-Education Treatment Balance Activities 6 Details Ball/cone pick-up, ball toss PT-OP-T Assessment and Plan Start: 09/28/17 15:21 Freq: Status: Active Protocol: Document 08/20/20 09:45 DCW (Rec: 08/20/20 10:27 DCW [id number]) Physical Therapy Assessment Impairments Impairments Activity Tolerance,Balance, Functional Activities, Functional Mobility,Gait,ROM, Strength Goals Eight Impairment Unassisted Gait Short Term Goal (STG) Pt to ambulate 300' SBA /s AD STG Duration Met Product Safety Expert Goal (LTG) Pt to ambulate 400' SBA /s AD LTG Duration 10/30/20 Seven Impairment Donis Short Term Goal (STG) Pt to score 22/56 on Donis Balance scale STG Duration Met Product Safety Expert Goal (LTG) Pt to score 35/56 on Donis Balance scale LTG Duration 10/30/20 - recent decline to 18/ 56 Six Impairment Static Standing Balance Short Term Goal (STG) Pt to stand independently for 2 minutes STG Duration Met Product Safety Expert Goal (LTG) Pt to stand independently for 3 minutes LTG Duration 10/30/20 - recent decline Five Impairment 6 MWT Product Safety Expert Goal (LTG) Pt to ambulate 1000' without rest using 4WW during 6 MWT LTG Duration 10/30/20 - recent decline to 720 ' Four Impairment Foot slap Short Term Goal (STG) Pt to regularly wear R AFO to limit foot drop and help normalize gait pattern STG Duration Met Three Impairment Transfers Short Term Goal (STG) Pt to transfer independently from mat<->w/c with no assistive devices STG Duration Met Two Impairment Ankle weakness Mcfp Goal (LTG) Pt to display 2/5 MMT in R DF, 4/5 MMT in R PF, and 4+/5 MMT in all other bilateral ankle movements LTG Duration 6/2/21 - recent decline One Impairment Activity tolerance Product Safety Expert Goal (LTG) Pt to tolerate activity up to 15 minutes without a break LTG Duration 10/30/20 - recent decline Progress Towards Goals Progress Towards Goals Slow Progress due to Activity Tolerance,Slow Progress due to Medical Issues Assessment Summary Assessment Pt still fatiguing a little more quickly than usual, requires extended rest breaks. Physical Therapy Plan Frequency and Duration Frequency of Treatment 1x/Week Duration of Treatment 3 months Plan of Care Start Date 07/30/20 Plan of Care End Date 10/30/20 Therapeutic Interventions Therapeutic Interventions Aquatic Therapy,Balance Training,Gait Training,Home Exercise Program,Manual Therapy,Neuromuscular Re- education,Soft Tissue Mobilization,Therapeutic Activities,Therapeutic Exercises Next Visit Focus/Plan Next Note Type Treatment Note Next Visit Plan Continue focus on opposing arm swing during gait, increasing activity tolerance, increasing gait /s an AD, and improving balance
--- NOTE | 2020-08-27 10:29 | PT.OTN ---
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 greater than 24 hours with return to pre-existing conscious level, subsequent encounter (08/27/20) History of falling (08/27/20) Physical Therapy Treatment Note PT-OP-A Visit Information Start: 09/28/17 15:21 Freq: Status: Active Protocol: Document 08/27/20 09:45 DCW (Rec: 08/27/20 10:29 DCW [id number]) Out-Patient Physical Therapy Visit Information Visit Information Visit Type Treatment Note Visit Start Time 09:45 Visit Stop Time 10:30 Total Visit Minutes 45 Visit Number 4/ Number of BIOFUELS RESEARCH SCIENTIST Visits 0 Evaluation Information Evaluation Date 07/27/17 PT-OP-B Current Condition Start: 09/28/17 15:21 Freq: Status: Active Protocol: Document 10/12/17 13:45 DCW (Rec: 10/12/17 18:33 DCW [id number]) Current Condition History of Current Condition Onset Date 02/05/17 History of Current Condition See Pt's initial evaluation in Therapy Source Current Functional Impairments (Reported) Functional Limitations- Mobility/Gait Transfers:W/C<->Mat Stand- pivot: Independent PT-OP-C Subjective Start: 09/28/17 15:21 Freq: Status: Active Protocol: Document 08/27/20 09:45 DCW (Rec: 08/27/20 10:29 DCW [id number]) OP-PT Subjective Patient Comments Patient Comments Notes he is pretty good today. PT-OP-D Balance Start: 10/12/17 18:11 Freq: Status: Active Protocol: Document 07/30/20 09:45 DCW (Rec: 07/30/20 10:27 DCW [id number]) OP-PT Balance Assessment Standing Balance Standing Balance Comments Double leg, Eyes open: 42 Donis Balance Assessment Evaluation Sitting to Standing Ability Several Tries w/Hands Unsupported Stance 30 seconds Standing to Sitting Ability Assist, Control w/Hands Transfer Ability Supervision, Verbal Cues Unsupported Stance- Eyes Closed 3 seconds Unsupported Stance- Eyes Open Assist to attain,<15 secs Reaching Forward Standing Safely, 2 inches Pick- Up Object From Floor Within 2 inches, Unable Look Behind Shoulder - Standing Supervision w/Turning Turning 360 Degrees Requires Assistance Unsupported Stance, Alternating Feet on Assist to Prevent Fall Stair Unsupported Tandem Stance Assist to Step-15 seconds Unilateral Leg Stance Lifts Leg/Unable to Hold Total Score Donis Total Score (out of 56 points) 18 Donis Impairment Rating 60 to 79% Impaired (Score 12- 22) Mejia Fall Scale Copyright Permission PT-OP-E Functional Tests Start: 10/12/17 18:11 Freq: Status: Active Protocol: Document 07/30/20 09:45 DCW (Rec: 07/30/20 10:27 DCW [id number]) Functional Tests 6 Minute Walk Test Distance 720' Device Used 4WW PT-OP-G Mobility & Gait Start: 12/23/18 10:02 Freq: Status: Active Protocol: Document 07/30/20 09:45 DCW (Rec: 07/30/20 10:27 DCW [id number]) OP Gait Assessment Gait Gait Assistance Required: Contact Guard Assist Distance (Feet) 720 Assistive Devices Assistive Device Gait Belt,4 Wheeled Walker Gait Deviations General Gait Pattern Antalgic,Ataxic,Decreased Stride Length,Decreased Feet Clearance,Flexed Trunk,Lateral Trunk Lean PT-OP-M Strength Start: 10/12/17 18:11 Freq: Status: Active Protocol: Document 07/30/20 09:45 DCW (Rec: 07/30/20 10:27 DCW [id number]) Hip Strength Hip Manual Muscle Testing Right Flexion (L2) 3 Fair Abduction 3+ Fair+ Adduction 3 Fair Left Flexion (L2) 4 Good Abduction 4- Good- Adduction 3 Fair Knee Strength Knee Manual Muscle Testing Right Flexion (S2) 4- Good- Extension (L3) 4 Good Left Flexion (S2) 5 Normal Extension (L3) 5 Normal Ankle/Foot Strength Ankle and Foot Manual Muscle Testing Right Dorsiflexion (L4) 2- Poor- Plantarflexion (S1) 3- Fair- Left Dorsiflexion (L4) 3+ Fair+ Plantarflexion (S1) 3+ Fair+ PT-OP-Q Treatments Start: 09/28/17 15:21 Freq: Status: Active Protocol: Document 08/27/20 09:45 DCW (Rec: 08/27/20 10:29 DCW [id number]) Gym Equipment Shuttle Balance 1 Details Blue Comments Wide WILIAN Therapeutic Exercises Standing Exercises Hip Extension Standing Exercise Name Extension Side bilateral Resistance Yellow Equipment Used T-band Hamstring curls Standing Exercise Name HS curls at rail Side bilateral Resistance 10# Equipment Used // bars Reps/Minutes x20 Other Exercises 1 Other Exercise Name Resisted Sidestepping Resistance Yellow Equipment Used T-band Gait Training Gait Activity 3 Description Ambulate /s AD Device Used none Level of Assistance CGA Distance/Duration 120' x1, 70' x1 Neuro Re-Education Treatment Balance Activities 6 Details Ball/cone pick-up, ball toss PT-OP-T Assessment and Plan Start: 09/28/17 15:21 Freq: Status: Active Protocol: Document 08/27/20 09:45 DCW (Rec: 08/27/20 10:29 DCW [id number]) Physical Therapy Assessment Impairments Impairments Activity Tolerance,Balance, Functional Activities, Functional Mobility,Gait,ROM, Strength Goals Eight Impairment Unassisted Gait Short Term Goal (STG) Pt to ambulate 300' SBA /s AD STG Duration Met Environmental Services Floor Tech Goal (LTG) Pt to ambulate 400' SBA /s AD LTG Duration 10/30/20 Seven Impairment Donis Short Term Goal (STG) Pt to score 22/56 on Donis Balance scale STG Duration Met Half-Way Goal (LTG) Pt to score 35/56 on Donis Balance scale LTG Duration 10/30/20 - recent decline to 18/ 56 Six Impairment Static Standing Balance Short Term Goal (STG) Pt to stand independently for 2 minutes STG Duration Met Half-Way Goal (LTG) Pt to stand independently for 3 minutes LTG Duration 10/30/20 - recent decline Five Impairment 6 MWT Environmental Services Floor Tech Goal (LTG) Pt to ambulate 1000' without rest using 4WW during 6 MWT LTG Duration 10/30/20 - recent decline to 720 ' Four Impairment Foot slap Short Term Goal (STG) Pt to regularly wear R AFO to limit foot drop and help normalize gait pattern STG Duration Met Three Impairment Transfers Short Term Goal (STG) Pt to transfer independently from mat<->w/c with no assistive devices STG Duration Met Two Impairment Ankle weakness Environmental Services Floor Tech Goal (LTG) Pt to display 2/5 MMT in R DF, 4/5 MMT in R PF, and 4+/5 MMT in all other bilateral ankle movements LTG Duration 10/30/20 - recent decline One Impairment Activity tolerance Environmental Services Floor Tech Goal (LTG) Pt to tolerate activity up to 15 minutes without a break LTG Duration 10/30/20 - recent decline Progress Towards Goals Progress Towards Goals Slow Progress due to Activity Tolerance,Slow Progress due to Medical Issues Assessment Summary Assessment Returned to walking without an assistive device today for the first time since pt's hospitalization for his UTI, did better than expected, however much higher anxiety about falling. Physical Therapy Plan Frequency and Duration Frequency of Treatment 1x/Week Duration of Treatment 3 months Plan of Care Start Date 07/30/20 Plan of Care End Date 10/30/20 Therapeutic Interventions Therapeutic Interventions Aquatic Therapy,Balance Training,Gait Training,Home Exercise Program,Manual Therapy,Neuromuscular Re- education,Soft Tissue Mobilization,Therapeutic Activities,Therapeutic Exercises Next Visit Focus/Plan Next Note Type Treatment Note Next Visit Plan Continue focus on opposing arm swing during gait, increasing activity tolerance, increasing gait /s an AD, and improving balance
--- NOTE | 2020-09-03 10:30 | PT.OTN ---
Current Diagnoses Foot drop, right foot (09/03/20) Muscle weakness (generalized) (09/03/20) Unsteadiness on feet (09/03/20) Unspecified abnormalities of gait and mobility (09/03/20) Traumatic subdural hemorrhage with loss of consciousness greater than 24 hours with return to pre-existing conscious level, subsequent encounter (09/03/20) History of falling (09/03/20) Physical Therapy Treatment Note PT-OP-A Visit Information Start: 09/28/17 15:21 Freq: Status: Active Protocol: Document 09/03/20 09:45 DCW (Rec: 09/03/20 10:29 DCW [id number]) Out-Patient Physical Therapy Visit Information Visit Information Visit Type Treatment Note Visit Start Time 09:45 Visit Stop Time 10:30 Total Visit Minutes 45 Visit Number 5 Number of DUST BOX WORKER Visits 0 Evaluation Information Evaluation Date 07/27/17 PT-OP-B Current Condition Start: 09/28/17 15:21 Freq: Status: Active Protocol: Document 10/12/17 13:45 DCW (Rec: 10/12/17 18:33 DCW [id number]) Current Condition History of Current Condition Onset Date 02/05/17 History of Current Condition See Pt's initial evaluation in Therapy Source Current Functional Impairments (Reported) Functional Limitations- Mobility/Gait Transfers:W/C<->Mat Stand- pivot: Independent PT-OP-C Subjective Start: 09/28/17 15:21 Freq: Status: Active Protocol: Document 09/03/20 09:45 DCW (Rec: 09/03/20 10:29 DCW [id number]) OP-PT Subjective Patient Comments Patient Comments Pt doing well today, feeling more energetic today. PT-OP-D Balance Start: 10/12/17 18:11 Freq: Status: Active Protocol: Document 07/30/20 09:45 DCW (Rec: 07/30/20 10:27 DCW [id number]) OP-PT Balance Assessment Standing Balance Standing Balance Comments Double leg, Eyes open: 42 Donis Balance Assessment Evaluation Sitting to Standing Ability Several Tries w/Hands Unsupported Stance 30 seconds Standing to Sitting Ability Assist, Control w/Hands Transfer Ability Supervision, Verbal Cues Unsupported Stance- Eyes Closed 3 seconds Unsupported Stance- Eyes Open Assist to attain,<15 secs Reaching Forward Standing Safely, 2 inches Pick- Up Object From Floor Within 2 inches, Unable Look Behind Shoulder - Standing Supervision w/Turning Turning 360 Degrees Requires Assistance Unsupported Stance, Alternating Feet on Assist to Prevent Fall Stair Unsupported Tandem Stance Assist to Step-15 seconds Unilateral Leg Stance Lifts Leg/Unable to Hold Total Score Donis Total Score (out of 56 points) 18 Donis Impairment Rating 60 to 79% Impaired (Score 12- 22) Mejia Fall Scale Copyright Permission PT-OP-E Functional Tests Start: 10/12/17 18:11 Freq: Status: Active Protocol: Document 07/30/20 09:45 DCW (Rec: 07/30/20 10:27 DCW [id number]) Functional Tests 6 Minute Walk Test Distance 720' Device Used 4WW PT-OP-G Mobility & Gait Start: 12/23/18 10:02 Freq: Status: Active Protocol: Document 07/30/20 09:45 DCW (Rec: 07/30/20 10:27 DCW [id number]) OP Gait Assessment Gait Gait Assistance Required: Contact Guard Assist Distance (Feet) 720 Assistive Devices Assistive Device Gait Belt,4 Wheeled Walker Gait Deviations General Gait Pattern Antalgic,Ataxic,Decreased Stride Length,Decreased Feet Clearance,Flexed Trunk,Lateral Trunk Lean PT-OP-M Strength Start: 10/12/17 18:11 Freq: Status: Active Protocol: Document 07/30/20 09:45 DCW (Rec: 07/30/20 10:27 DCW [id number]) Hip Strength Hip Manual Muscle Testing Right Flexion (L2) 3 Fair Abduction 3+ Fair+ Adduction 3 Fair Left Flexion (L2) 4 Good Abduction 4- Good- Adduction 3 Fair Knee Strength Knee Manual Muscle Testing Right Flexion (S2) 4- Good- Extension (L3) 4 Good Left Flexion (S2) 5 Normal Extension (L3) 5 Normal Ankle/Foot Strength Ankle and Foot Manual Muscle Testing Right Dorsiflexion (L4) 2- Poor- Plantarflexion (S1) 3- Fair- Left Dorsiflexion (L4) 3+ Fair+ Plantarflexion (S1) 3+ Fair+ PT-OP-Q Treatments Start: 09/28/17 15:21 Freq: Status: Active Protocol: Document 09/03/20 09:45 DCW (Rec: 09/03/20 10:29 DCW [id number]) Therapeutic Exercises Standing Exercises Hip Extension Standing Exercise Name Extension Side bilateral Resistance Yellow Equipment Used T-band Hamstring curls Standing Exercise Name HS curls at rail Side bilateral Resistance 10# Equipment Used // bars Reps/Minutes x20 Other Exercises Step-ups Other Exercise Name Step-ups Equipment Used 6 steps 1 Other Exercise Name Resisted Sidestepping Resistance Yellow Equipment Used T-band Gait Training Gait Activity 3 Description Ambulate /s AD Device Used none Level of Assistance CGA Distance/Duration 150' x1, 70' x1 Neuro Re-Education Treatment Balance Activities 6 Details Ball/cone pick-up, ball toss 5 Details SLS Equipment // bars 4 Details NBOS Surface Morel foam PT-OP-T Assessment and Plan Start: 09/28/17 15:21 Freq: Status: Active Protocol: Document 09/03/20 09:45 DCW (Rec: 09/03/20 10:29 DCW [id number]) Physical Therapy Assessment Impairments Impairments Activity Tolerance,Balance, Functional Activities, Functional Mobility,Gait,ROM, Strength Goals Eight Impairment Unassisted Gait Short Term Goal (STG) Pt to ambulate 300' SBA /s AD STG Duration Met Jail Goal (LTG) Pt to ambulate 400' SBA /s AD LTG Duration 10/30/20 Seven Impairment Donis Short Term Goal (STG) Pt to score 22/56 on Donis Balance scale STG Duration Met Jail Goal (LTG) Pt to score 35/56 on Donis Balance scale LTG Duration 10/30/20 - recent decline to 18/ 56 Six Impairment Static Standing Balance Short Term Goal (STG) Pt to stand independently for 2 minutes STG Duration Met Bryologist Goal (LTG) Pt to stand independently for 3 minutes LTG Duration 10/30/20 - recent decline Five Impairment 6 MWT Jail Goal (LTG) Pt to ambulate 1000' without rest using 4WW during 6 MWT LTG Duration 10/30/20 - recent decline to 720 ' Four Impairment Foot slap Short Term Goal (STG) Pt to regularly wear R AFO to limit foot drop and help normalize gait pattern STG Duration Met Three Impairment Transfers Short Term Goal (STG) Pt to transfer independently from mat<->w/c with no assistive devices STG Duration Met Two Impairment Ankle weakness Bryologist Goal (LTG) Pt to display 2/5 MMT in R DF, 4/5 MMT in R PF, and 4+/5 MMT in all other bilateral ankle movements LTG Duration 10/30/20 - recent decline One Impairment Activity tolerance Jail Goal (LTG) Pt to tolerate activity up to 15 minutes without a break LTG Duration 10/30/20 - recent decline Progress Towards Goals Progress Towards Goals Slow Progress due to Activity Tolerance,Slow Progress due to Medical Issues Assessment Summary Assessment Pt felt frustrated he was not better with SLS and NBOS on foam, would like to continue to practice them next visit. Physical Therapy Plan Frequency and Duration Frequency of Treatment 1x/Week Duration of Treatment 3 months Plan of Care Start Date 07/30/20 Plan of Care End Date 10/30/20 Therapeutic Interventions Therapeutic Interventions Aquatic Therapy,Balance Training,Gait Training,Home Exercise Program,Manual Therapy,Neuromuscular Re- education,Soft Tissue Mobilization,Therapeutic Activities,Therapeutic Exercises Next Visit Focus/Plan Next Note Type Treatment Note Next Visit Plan Continue focus on opposing arm swing during gait, increasing activity tolerance, increasing gait /s an AD, and improving balance
--- NOTE | 2020-09-10 10:31 | PT.OTN ---
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 with return to pre-existing conscious level, subsequent encounter (09/10/20) History of falling (09/10/20) Physical Therapy Treatment Note PT-OP-A Visit Information Start: 09/28/17 15:21 Freq: Status: Active Protocol: Document 09/10/20 09:45 DCW (Rec: 09/10/20 10:31 DCW [id number]) Out-Patient Physical Therapy Visit Information Visit Information Visit Type Treatment Note Visit Start Time 09:45 Visit Stop Time 10:30 Total Visit Minutes 45 Visit Number 11/07 Number of URGENT CARE TECHNICIAN Visits 0 Evaluation Information Evaluation Date 07/27/17 PT-OP-B Current Condition Start: 09/28/17 15:21 Freq: Status: Active Protocol: Document 10/12/17 13:45 DCW (Rec: 10/12/17 18:33 DCW [id number]) Current Condition History of Current Condition Onset Date 02/05/17 History of Current Condition See Pt's initial evaluation in Therapy Source Current Functional Impairments (Reported) Functional Limitations- Mobility/Gait Transfers:W/C<->Mat Stand- pivot: Independent PT-OP-C Subjective Start: 09/28/17 15:21 Freq: Status: Active Protocol: Document 09/10/20 09:45 DCW (Rec: 09/10/20 10:31 DCW [id number]) OP-PT Subjective Patient Comments Patient Comments Pt reports things are feeling okay today. PT-OP-D Balance Start: 10/12/17 18:11 Freq: Status: Active Protocol: Document 07/30/20 09:45 DCW (Rec: 07/30/20 10:27 DCW [id number]) OP-PT Balance Assessment Standing Balance Standing Balance Comments Double leg, Eyes open: 42 Donis Balance Assessment Evaluation Sitting to Standing Ability Several Tries w/Hands Unsupported Stance 30 seconds Standing to Sitting Ability Assist, Control w/Hands Transfer Ability Supervision, Verbal Cues Unsupported Stance- Eyes Closed 3 seconds Unsupported Stance- Eyes Open Assist to attain,<15 secs Reaching Forward Standing Safely, 2 inches Pick- Up Object From Floor Within 2 inches, Unable Look Behind Shoulder - Standing Supervision w/Turning Turning 360 Degrees Requires Assistance Unsupported Stance, Alternating Feet on Assist to Prevent Fall Stair Unsupported Tandem Stance Assist to Step-15 seconds Unilateral Leg Stance Lifts Leg/Unable to Hold Total Score Donis Total Score (out of 56 points) 18 Donis Impairment Rating 60 to 79% Impaired (Score 12- 22) Mejia Fall Scale Copyright Permission PT-OP-E Functional Tests Start: 10/12/17 18:11 Freq: Status: Active Protocol: Document 07/30/20 09:45 DCW (Rec: 07/30/20 10:27 DCW [id number]) Functional Tests 6 Minute Walk Test Distance 720' Device Used 4WW PT-OP-G Mobility & Gait Start: 12/23/18 10:02 Freq: Status: Active Protocol: Document 07/30/20 09:45 DCW (Rec: 07/30/20 10:27 DCW [id number]) OP Gait Assessment Gait Gait Assistance Required: Contact Guard Assist Distance (Feet) 720 Assistive Devices Assistive Device Gait Belt,4 Wheeled Walker Gait Deviations General Gait Pattern Antalgic,Ataxic,Decreased Stride Length,Decreased Feet Clearance,Flexed Trunk,Lateral Trunk Lean PT-OP-M Strength Start: 10/12/17 18:11 Freq: Status: Active Protocol: Document 07/30/20 09:45 DCW (Rec: 07/30/20 10:27 DCW [id number]) Hip Strength Hip Manual Muscle Testing Right Flexion (L2) 3 Fair Abduction 3+ Fair+ Adduction 3 Fair Left Flexion (L2) 4 Good Abduction 4- Good- Adduction 3 Fair Knee Strength Knee Manual Muscle Testing Right Flexion (S2) 4- Good- Extension (L3) 4 Good Left Flexion (S2) 5 Normal Extension (L3) 5 Normal Ankle/Foot Strength Ankle and Foot Manual Muscle Testing Right Dorsiflexion (L4) 2- Poor- Plantarflexion (S1) 3- Fair- Left Dorsiflexion (L4) 3+ Fair+ Plantarflexion (S1) 3+ Fair+ PT-OP-Q Treatments Start: 09/28/17 15:21 Freq: Status: Active Protocol: Document 09/10/20 09:45 DCW (Rec: 04/13/21 10:31 DCW [id number]) Therapeutic Exercises Standing Exercises Hip Extension Standing Exercise Name Extension Side bilateral Resistance Yellow Equipment Used T-band Standing Marching Standing Exercise Name Toe-taps Side bilateral Resistance 10# Equipment Used // bars Other Exercises 1 Other Exercise Name Resisted Sidestepping Resistance Yellow Equipment Used T-band Gait Training Gait Activity 3 Description Ambulate /s AD Device Used none Level of Assistance CGA Distance/Duration 190' x1 Neuro Re-Education Treatment Balance Activities 6 Details Ball/cone pick-up, ball toss 5 Details SLS Equipment // bars Comments CGA 4 Details NBOS Surface Morel foam Comments CGA PT-OP-T Assessment and Plan Start: 09/28/17 15:21 Freq: Status: Active Protocol: Document 09/10/20 09:45 DCW (Rec: 09/10/20 10:31 DCW [id number]) Physical Therapy Assessment Impairments Impairments Activity Tolerance,Balance, Functional Activities, Functional Mobility,Gait,ROM, Strength Goals Eight Impairment Unassisted Gait Short Term Goal (STG) Pt to ambulate 300' SBA /s AD STG Duration Met Coconut Cooker Goal (LTG) Pt to ambulate 400' SBA /s AD LTG Duration 10/30/20 Seven Impairment Donis Short Term Goal (STG) Pt to score 22/56 on Donis Balance scale STG Duration Met Coconut Cooker Goal (LTG) Pt to score 35/56 on Donis Balance scale LTG Duration 10/30/20 - recent decline to 18/ 56 Six Impairment Static Standing Balance Short Term Goal (STG) Pt to stand independently for 2 minutes STG Duration Met Coconut Cooker Goal (LTG) Pt to stand independently for 3 minutes LTG Duration 10/30/20 - recent decline Five Impairment 6 MWT Coconut Cooker Goal (LTG) Pt to ambulate 1000' without rest using 4WW during 6 MWT LTG Duration 10/30/20 - recent decline to 720 ' Four Impairment Foot slap Short Term Goal (STG) Pt to regularly wear R AFO to limit foot drop and help normalize gait pattern STG Duration Met Three Impairment Transfers Short Term Goal (STG) Pt to transfer independently from mat<->w/c with no assistive devices STG Duration Met Two Impairment Ankle weakness Intermediate Goal (LTG) Pt to display 2/5 MMT in R DF, 4/5 MMT in R PF, and 4+/5 MMT in all other bilateral ankle movements LTG Duration 10/30/20 - recent decline One Impairment Activity tolerance Intermediate Goal (LTG) Pt to tolerate activity up to 15 minutes without a break LTG Duration 10/30/20 - recent decline Progress Towards Goals Progress Towards Goals Slow Progress due to Activity Tolerance,Slow Progress due to Medical Issues Assessment Summary Assessment Pt walked full lap /s AD for first time in a number of months, he was pretty happy overall with his level of function today. Physical Therapy Plan Frequency and Duration Frequency of Treatment 1x/Week Duration of Treatment 3 months Plan of Care Start Date 07/30/20 Plan of Care End Date 10/30/20 Therapeutic Interventions Therapeutic Interventions Aquatic Therapy,Balance Training,Gait Training,Home Exercise Program,Manual Therapy,Neuromuscular Re- education,Soft Tissue Mobilization,Therapeutic Activities,Therapeutic Exercises Next Visit Focus/Plan Next Note Type Treatment Note Next Visit Plan Continue focus on opposing arm swing during gait, increasing activity tolerance, increasing gait /s an AD, and improving balance
--- NOTE | 2020-09-17 10:34 | PT.OTN ---
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 with return to pre-existing conscious level, subsequent encounter (09/17/20) History of falling (09/17/20) Physical Therapy Treatment Note PT-OP-A Visit Information Start: 09/28/17 15:21 Freq: Status: Active Protocol: Document 09/17/20 09:45 DCW (Rec: 09/17/20 10:34 DCW [id number]) Out-Patient Physical Therapy Visit Information Visit Information Visit Type Treatment Note Visit Start Time 09:45 Visit Stop Time 10:30 Total Visit Minutes 45 Visit Number 12/07 Number of MANAGER EMBALMER FUNERAL DIRECTOR Visits 0 Evaluation Information Evaluation Date 07/27/17 PT-OP-B Current Condition Start: 09/28/17 15:21 Freq: Status: Active Protocol: Document 10/12/17 13:45 DCW (Rec: 10/12/17 18:33 DCW [id number]) Current Condition History of Current Condition Onset Date 02/05/17 History of Current Condition See Pt's initial evaluation in Therapy Source Current Functional Impairments (Reported) Functional Limitations- Mobility/Gait Transfers:W/C<->Mat Stand- pivot: Independent PT-OP-C Subjective Start: 09/28/17 15:21 Freq: Status: Active Protocol: Document 09/17/20 09:45 DCW (Rec: 09/17/20 10:34 DCW [id number]) OP-PT Subjective Patient Comments Patient Comments Pt notes he is doing pretty well today. PT-OP-D Balance Start: 10/12/17 18:11 Freq: Status: Active Protocol: Document 07/30/20 09:45 DCW (Rec: 07/30/20 10:27 DCW [id number]) OP-PT Balance Assessment Standing Balance Standing Balance Comments Double leg, Eyes open: 42 Donis Balance Assessment Evaluation Sitting to Standing Ability Several Tries w/Hands Unsupported Stance 30 seconds Standing to Sitting Ability Assist, Control w/Hands Transfer Ability Supervision, Verbal Cues Unsupported Stance- Eyes Closed 3 seconds Unsupported Stance- Eyes Open Assist to attain,<15 secs Reaching Forward Standing Safely, 2 inches Pick- Up Object From Floor Within 2 inches, Unable Look Behind Shoulder - Standing Supervision w/Turning Turning 360 Degrees Requires Assistance Unsupported Stance, Alternating Feet on Assist to Prevent Fall Stair Unsupported Tandem Stance Assist to Step-15 seconds Unilateral Leg Stance Lifts Leg/Unable to Hold Total Score Donis Total Score (out of 56 points) 18 Donis Impairment Rating 60 to 79% Impaired (Score 12- 22) Mejia Fall Scale Copyright Permission PT-OP-E Functional Tests Start: 10/12/17 18:11 Freq: Status: Active Protocol: Document 07/30/20 09:45 DCW (Rec: 07/30/20 10:27 DCW [id number]) Functional Tests 6 Minute Walk Test Distance 720' Device Used 4WW PT-OP-G Mobility & Gait Start: 12/23/18 10:02 Freq: Status: Active Protocol: Document 07/30/20 09:45 DCW (Rec: 07/30/20 10:27 DCW [id number]) OP Gait Assessment Gait Gait Assistance Required: Contact Guard Assist Distance (Feet) 720 Assistive Devices Assistive Device Gait Belt,4 Wheeled Walker Gait Deviations General Gait Pattern Antalgic,Ataxic,Decreased Stride Length,Decreased Feet Clearance,Flexed Trunk,Lateral Trunk Lean PT-OP-M Strength Start: 10/12/17 18:11 Freq: Status: Active Protocol: Document 07/30/20 09:45 DCW (Rec: 07/30/20 10:27 DCW [id number]) Hip Strength Hip Manual Muscle Testing Right Flexion (L2) 3 Fair Abduction 3+ Fair+ Adduction 3 Fair Left Flexion (L2) 4 Good Abduction 4- Good- Adduction 3 Fair Knee Strength Knee Manual Muscle Testing Right Flexion (S2) 4- Good- Extension (L3) 4 Good Left Flexion (S2) 5 Normal Extension (L3) 5 Normal Ankle/Foot Strength Ankle and Foot Manual Muscle Testing Right Dorsiflexion (L4) 2- Poor- Plantarflexion (S1) 3- Fair- Left Dorsiflexion (L4) 3+ Fair+ Plantarflexion (S1) 3+ Fair+ PT-OP-Q Treatments Start: 09/28/17 15:21 Freq: Status: Active Protocol: Document 09/17/20 09:45 DCW (Rec: 09/17/20 10:34 DCW [id number]) Gym Equipment Shuttle Recovery Bilateral Heel Raises Resistance 100# Reps/Time x60 Unilateral Squats Resistance 75# Shuttle Recovery Platform Stable Reps/Time x20 each Bilateral Squats Resistance 125# Shuttle Recovery Platform Stable Reps/Time x30 Therapeutic Exercises Other Exercises 1 Other Exercise Name Resisted Sidestepping Resistance Yellow Equipment Used T-band Gait Training Gait Activity 3 Description Ambulate /s AD Device Used none Level of Assistance CGA Distance/Duration 190' x1 Neuro Re-Education Treatment Balance Activities 6 Details Ball/cone pick-up, ball toss 5 Details SLS Equipment // bars Comments CGA 4 Details NBOS Surface Morel foam Comments CGA PT-OP-T Assessment and Plan Start: 09/28/17 15:21 Freq: Status: Active Protocol: Document 09/17/20 09:45 DCW (Rec: 09/17/20 10:34 DCW [id number]) Physical Therapy Assessment Impairments Impairments Activity Tolerance,Balance, Functional Activities, Functional Mobility,Gait,ROM, Strength Goals Eight Impairment Unassisted Gait Short Term Goal (STG) Pt to ambulate 300' SBA /s AD STG Duration Met Mcfp Goal (LTG) Pt to ambulate 400' SBA /s AD LTG Duration 10/30/20 Seven Impairment Donis Short Term Goal (STG) Pt to score 22/56 on Donis Balance scale STG Duration Met Copper Plater Goal (LTG) Pt to score 35/56 on Donis Balance scale LTG Duration 10/30/20 - recent decline to 18/ 56 Six Impairment Static Standing Balance Short Term Goal (STG) Pt to stand independently for 2 minutes STG Duration Met Mcfp Goal (LTG) Pt to stand independently for 3 minutes LTG Duration 10/30/20 - recent decline Five Impairment 6 MWT Copper Plater Goal (LTG) Pt to ambulate 1000' without rest using 4WW during 6 MWT LTG Duration 10/30/20 - recent decline to 720 ' Four Impairment Foot slap Short Term Goal (STG) Pt to regularly wear R AFO to limit foot drop and help normalize gait pattern STG Duration Met Three Impairment Transfers Short Term Goal (STG) Pt to transfer independently from mat<->w/c with no assistive devices STG Duration Met Two Impairment Ankle weakness Mcfp Goal (LTG) Pt to display 2/5 MMT in R DF, 4/5 MMT in R PF, and 4+/5 MMT in all other bilateral ankle movements LTG Duration 10/30/20 - recent decline One Impairment Activity tolerance Mcfp Goal (LTG) Pt to tolerate activity up to 15 minutes without a break LTG Duration 10/30/20 - recent decline Progress Towards Goals Progress Towards Goals Slow Progress due to Activity Tolerance,Slow Progress due to Medical Issues Assessment Summary Assessment Pt able to once again ambulate full lap AD-free, overall doing well. Improving activity tolerance. Physical Therapy Plan Frequency and Duration Frequency of Treatment 1x/Week Duration of Treatment 3 months Plan of Care Start Date 07/30/20 Plan of Care End Date 10/30/20 Therapeutic Interventions Therapeutic Interventions Aquatic Therapy,Balance Training,Gait Training,Home Exercise Program,Manual Therapy,Neuromuscular Re- education,Soft Tissue Mobilization,Therapeutic Activities,Therapeutic Exercises Next Visit Focus/Plan Next Note Type Treatment Note Next Visit Plan Continue focus on opposing arm swing during gait, increasing activity tolerance, increasing gait /s an AD, and improving balance
--- NOTE | 2020-09-24 10:31 | PT.OTN ---
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 greater than 24 hours with return to pre-existing conscious level, subsequent encounter (09/24/20) History of falling (09/24/20) Physical Therapy Treatment Note PT-OP-A Visit Information Start: 09/28/17 15:21 Freq: Status: Active Protocol: Document 09/24/20 09:45 DCW (Rec: 09/24/20 10:30 DCW [id number]) Out-Patient Physical Therapy Visit Information Visit Information Visit Type Treatment Note Visit Start Time 09:45 Visit Stop Time 10:30 Total Visit Minutes 45 Visit Number 01/07 Number of RETAIL ASSISTANT MANAGER Visits 0 Evaluation Information Evaluation Date 07/27/17 PT-OP-B Current Condition Start: 09/28/17 15:21 Freq: Status: Active Protocol: Document 10/12/17 13:45 DCW (Rec: 10/12/17 18:33 DCW [id number]) Current Condition History of Current Condition Onset Date 02/05/17 History of Current Condition See Pt's initial evaluation in Therapy Source Current Functional Impairments (Reported) Functional Limitations- Mobility/Gait Transfers:W/C<->Mat Stand- pivot: Independent PT-OP-C Subjective Start: 09/28/17 15:21 Freq: Status: Active Protocol: Document 09/24/20 09:45 DCW (Rec: 09/24/20 10:30 DCW [id number]) OP-PT Subjective Patient Comments Patient Comments Pt reports he just spent an hour and a half in the dentist chair, and has a physical with his PCP later this morning, so he is a little overwhelmed today. PT-OP-D Balance Start: 10/12/17 18:11 Freq: Status: Active Protocol: Document 07/30/20 09:45 DCW (Rec: 07/30/20 10:27 DCW [id number]) OP-PT Balance Assessment Standing Balance Standing Balance Comments Double leg, Eyes open: 42 Donis Balance Assessment Evaluation Sitting to Standing Ability Several Tries w/Hands Unsupported Stance 30 seconds Standing to Sitting Ability Assist, Control w/Hands Transfer Ability Supervision, Verbal Cues Unsupported Stance- Eyes Closed 3 seconds Unsupported Stance- Eyes Open Assist to attain,<15 secs Reaching Forward Standing Safely, 2 inches Pick- Up Object From Floor Within 2 inches, Unable Look Behind Shoulder - Standing Supervision w/Turning Turning 360 Degrees Requires Assistance Unsupported Stance, Alternating Feet on Assist to Prevent Fall Stair Unsupported Tandem Stance Assist to Step-15 seconds Unilateral Leg Stance Lifts Leg/Unable to Hold Total Score Donis Total Score (out of 56 points) 18 Donis Impairment Rating 60 to 79% Impaired (Score 12- 22) Mejia Fall Scale Copyright Permission PT-OP-E Functional Tests Start: 10/12/17 18:11 Freq: Status: Active Protocol: Document 07/30/20 09:45 DCW (Rec: 07/30/20 10:27 DCW [id number]) Functional Tests 6 Minute Walk Test Distance 720' Device Used 4WW PT-OP-G Mobility & Gait Start: 12/23/18 10:02 Freq: Status: Active Protocol: Document 07/30/20 09:45 DCW (Rec: 07/30/20 10:27 DCW [id number]) OP Gait Assessment Gait Gait Assistance Required: Contact Guard Assist Distance (Feet) 720 Assistive Devices Assistive Device Gait Belt,4 Wheeled Walker Gait Deviations General Gait Pattern Antalgic,Ataxic,Decreased Stride Length,Decreased Feet Clearance,Flexed Trunk,Lateral Trunk Lean PT-OP-M Strength Start: 10/12/17 18:11 Freq: Status: Active Protocol: Document 07/30/20 09:45 DCW (Rec: 07/30/20 10:27 DCW [id number]) Hip Strength Hip Manual Muscle Testing Right Flexion (L2) 3 Fair Abduction 3+ Fair+ Adduction 3 Fair Left Flexion (L2) 4 Good Abduction 4- Good- Adduction 3 Fair Knee Strength Knee Manual Muscle Testing Right Flexion (S2) 4- Good- Extension (L3) 4 Good Left Flexion (S2) 5 Normal Extension (L3) 5 Normal Ankle/Foot Strength Ankle and Foot Manual Muscle Testing Right Dorsiflexion (L4) 2- Poor- Plantarflexion (S1) 3- Fair- Left Dorsiflexion (L4) 3+ Fair+ Plantarflexion (S1) 3+ Fair+ PT-OP-Q Treatments Start: 09/28/17 15:21 Freq: Status: Active Protocol: Document 09/24/20 09:45 DCW (Rec: 09/24/20 10:30 DCW [id number]) Gym Equipment Shuttle Recovery Bilateral Heel Raises Resistance 100# Reps/Time x60 Unilateral Squats Resistance 75# Shuttle Recovery Platform Stable Reps/Time x20 each Bilateral Squats Resistance 125# Shuttle Recovery Platform Stable Reps/Time x30 Gait Training Gait Activity 3 Description Ambulate /s AD Device Used none Level of Assistance CGA Distance/Duration 190' x1 Neuro Re-Education Treatment Balance Activities 6 Details Ball/cone pick-up, ball toss 5 Details SLS Equipment // bars Comments CGA 4 Details NBOS Surface Morel foam Comments CGA PT-OP-T Assessment and Plan Start: 09/28/17 15:21 Freq: Status: Active Protocol: Document 09/24/20 09:45 DCW (Rec: 09/24/20 10:30 DCW [id number]) Physical Therapy Assessment Impairments Impairments Activity Tolerance,Balance, Functional Activities, Functional Mobility,Gait,ROM, Strength Goals Eight Impairment Unassisted Gait Short Term Goal (STG) Pt to ambulate 300' SBA /s AD STG Duration Met Chcf Goal (LTG) Pt to ambulate 400' SBA /s AD LTG Duration 10/30/20 Seven Impairment Donis Short Term Goal (STG) Pt to score 22/56 on Donis Balance scale STG Duration Met Bricklayer Goal (LTG) Pt to score 35/56 on Donis Balance scale LTG Duration 10/30/20 - recent decline to 18/ 56 Six Impairment Static Standing Balance Short Term Goal (STG) Pt to stand independently for 2 minutes STG Duration Met Bricklayer Goal (LTG) Pt to stand independently for 3 minutes LTG Duration 10/30/20 - recent decline Five Impairment 6 MWT Bricklayer Goal (LTG) Pt to ambulate 1000' without rest using 4WW during 6 MWT LTG Duration 10/30/20 - recent decline to 720 ' Four Impairment Foot slap Short Term Goal (STG) Pt to regularly wear R AFO to limit foot drop and help normalize gait pattern STG Duration Met Three Impairment Transfers Short Term Goal (STG) Pt to transfer independently from mat<->w/c with no assistive devices STG Duration Met Two Impairment Ankle weakness Bricklayer Goal (LTG) Pt to display 2/5 MMT in R DF, 4/5 MMT in R PF, and 4+/5 MMT in all other bilateral ankle movements LTG Duration 10/30/20 - recent decline One Impairment Activity tolerance Chcf Goal (LTG) Pt to tolerate activity up to 15 minutes without a break LTG Duration 10/30/20 - recent decline Progress Towards Goals Progress Towards Goals Slow Progress due to Activity Tolerance,Slow Progress due to Medical Issues Assessment Summary Assessment Pt had a little bit more trouble balance SLS and standing on foam today. Ambulation tolerance still improved. Physical Therapy Plan Frequency and Duration Frequency of Treatment 1x/Week Duration of Treatment 3 months Plan of Care Start Date 07/30/20 Plan of Care End Date 10/30/20 Therapeutic Interventions Therapeutic Interventions Aquatic Therapy,Balance Training,Gait Training,Home Exercise Program,Manual Therapy,Neuromuscular Re- education,Soft Tissue Mobilization,Therapeutic Activities,Therapeutic Exercises Next Visit Focus/Plan Next Note Type Treatment Note Next Visit Plan Continue focus on opposing arm swing during gait, increasing activity tolerance, increasing gait /s an AD, and improving balance
--- NOTE | 2020-10-01 10:31 | PT.OTN ---
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 with return to pre-existing conscious level, subsequent encounter (10/01/20) History of falling (10/01/20) Physical Therapy Treatment Note PT-OP-A Visit Information Start: 09/28/17 15:21 Freq: Status: Active Protocol: Document 10/01/20 09:45 DCW (Rec: 10/01/20 10:31 DCW [id number]) Out-Patient Physical Therapy Visit Information Visit Information Visit Type Treatment Note Visit Start Time 09:45 Visit Stop Time 10:30 Total Visit Minutes 45 Visit Number 02/07 Number of BAGGAGE HANDLER Visits 0 Evaluation Information Evaluation Date 07/27/17 PT-OP-B Current Condition Start: 09/28/17 15:21 Freq: Status: Active Protocol: Document 10/12/17 13:45 DCW (Rec: 10/12/17 18:33 DCW [id number]) Current Condition History of Current Condition Onset Date 02/05/17 History of Current Condition See Pt's initial evaluation in Therapy Source Current Functional Impairments (Reported) Functional Limitations- Mobility/Gait Transfers:W/C<->Mat Stand- pivot: Independent PT-OP-C Subjective Start: 09/28/17 15:21 Freq: Status: Active Protocol: Document 10/01/20 09:45 DCW (Rec: 10/01/20 10:31 DCW [id number]) OP-PT Subjective Patient Comments Patient Comments Pt notes he is doing pretty well today. PT-OP-D Balance Start: 10/12/17 18:11 Freq: Status: Active Protocol: Document 07/30/20 09:45 DCW (Rec: 07/30/20 10:27 DCW [id number]) OP-PT Balance Assessment Standing Balance Standing Balance Comments Double leg, Eyes open: 42 Donis Balance Assessment Evaluation Sitting to Standing Ability Several Tries w/Hands Unsupported Stance 30 seconds Standing to Sitting Ability Assist, Control w/Hands Transfer Ability Supervision, Verbal Cues Unsupported Stance- Eyes Closed 3 seconds Unsupported Stance- Eyes Open Assist to attain,<15 secs Reaching Forward Standing Safely, 2 inches Pick- Up Object From Floor Within 2 inches, Unable Look Behind Shoulder - Standing Supervision w/Turning Turning 360 Degrees Requires Assistance Unsupported Stance, Alternating Feet on Assist to Prevent Fall Stair Unsupported Tandem Stance Assist to Step-15 seconds Unilateral Leg Stance Lifts Leg/Unable to Hold Total Score Donis Total Score (out of 56 points) 18 Donis Impairment Rating 60 to 79% Impaired (Score 12- 22) Mejia Fall Scale Copyright Permission PT-OP-E Functional Tests Start: 10/12/17 18:11 Freq: Status: Active Protocol: Document 07/30/20 09:45 DCW (Rec: 07/30/20 10:27 DCW [id number]) Functional Tests 6 Minute Walk Test Distance 720' Device Used 4WW PT-OP-G Mobility & Gait Start: 12/23/18 10:02 Freq: Status: Active Protocol: Document 07/30/20 09:45 DCW (Rec: 07/30/20 10:27 DCW [id number]) OP Gait Assessment Gait Gait Assistance Required: Contact Guard Assist Distance (Feet) 720 Assistive Devices Assistive Device Gait Belt,4 Wheeled Walker Gait Deviations General Gait Pattern Antalgic,Ataxic,Decreased Stride Length,Decreased Feet Clearance,Flexed Trunk,Lateral Trunk Lean PT-OP-M Strength Start: 10/12/17 18:11 Freq: Status: Active Protocol: Document 07/30/20 09:45 DCW (Rec: 07/30/20 10:27 DCW [id number]) Hip Strength Hip Manual Muscle Testing Right Flexion (L2) 3 Fair Abduction 3+ Fair+ Adduction 3 Fair Left Flexion (L2) 4 Good Abduction 4- Good- Adduction 3 Fair Knee Strength Knee Manual Muscle Testing Right Flexion (S2) 4- Good- Extension (L3) 4 Good Left Flexion (S2) 5 Normal Extension (L3) 5 Normal Ankle/Foot Strength Ankle and Foot Manual Muscle Testing Right Dorsiflexion (L4) 2- Poor- Plantarflexion (S1) 3- Fair- Left Dorsiflexion (L4) 3+ Fair+ Plantarflexion (S1) 3+ Fair+ PT-OP-Q Treatments Start: 09/28/17 15:21 Freq: Status: Active Protocol: Document 10/01/20 09:45 DCW (Rec: 10/01/20 10:31 DCW [id number]) Gym Equipment Shuttle Recovery Bilateral Heel Raises Resistance 100# Reps/Time x60 Unilateral Squats Resistance 75# Shuttle Recovery Platform Stable Reps/Time x20 each Bilateral Squats Resistance 125# Shuttle Recovery Platform Stable Reps/Time x30 Therapeutic Exercises Other Exercises 1 Other Exercise Name Resisted Sidestepping Resistance Yellow Equipment Used T-band Gait Training Gait Activity 3 Description Ambulate /s AD Device Used none Level of Assistance CGA Distance/Duration 100' x2 Neuro Re-Education Treatment Balance Activities 6 Details Ball/cone pick-up, ball toss 5 Details SLS Equipment // bars Comments CGA 4 Details NBOS Surface Morel foam Comments CGA PT-OP-T Assessment and Plan Start: 09/28/17 15:21 Freq: Status: Active Protocol: Document 10/01/20 09:45 DCW (Rec: 10/01/20 10:31 DCW [id number]) Physical Therapy Assessment Impairments Impairments Activity Tolerance,Balance, Functional Activities, Functional Mobility,Gait,ROM, Strength Goals Eight Impairment Unassisted Gait Short Term Goal (STG) Pt to ambulate 300' SBA /s AD STG Duration Met Penitentiary Goal (LTG) Pt to ambulate 400' SBA /s AD LTG Duration 10/30/20 Seven Impairment Donis Short Term Goal (STG) Pt to score 22/56 on Donis Balance scale STG Duration Met Management Trainee Marketing Goal (LTG) Pt to score 35/56 on Donis Balance scale LTG Duration 10/30/20 - recent decline to 18/ 56 Six Impairment Static Standing Balance Short Term Goal (STG) Pt to stand independently for 2 minutes STG Duration Met Penitentiary Goal (LTG) Pt to stand independently for 3 minutes LTG Duration 10/30/20 - recent decline Five Impairment 6 MWT Management Trainee Marketing Goal (LTG) Pt to ambulate 1000' without rest using 4WW during 6 MWT LTG Duration 10/30/20 - recent decline to 720 ' Four Impairment Foot slap Short Term Goal (STG) Pt to regularly wear R AFO to limit foot drop and help normalize gait pattern STG Duration Met Three Impairment Transfers Short Term Goal (STG) Pt to transfer independently from mat<->w/c with no assistive devices STG Duration Met Two Impairment Ankle weakness Penitentiary Goal (LTG) Pt to display 2/5 MMT in R DF, 4/5 MMT in R PF, and 4+/5 MMT in all other bilateral ankle movements LTG Duration 10/30/20 - recent decline One Impairment Activity tolerance Penitentiary Goal (LTG) Pt to tolerate activity up to 15 minutes without a break LTG Duration 10/30/20 - recent decline Progress Towards Goals Progress Towards Goals Slow Progress due to Activity Tolerance,Slow Progress due to Medical Issues Assessment Summary Assessment Pt had a fairly good day today , did well with TherEx, no notable weakness or fatigue. Did have a LOB during gait, required Mod A from PT to maintain balance, had to sit briefly and recover afterward. Physical Therapy Plan Frequency and Duration Frequency of Treatment 1x/Week Duration of Treatment 3 months Plan of Care Start Date 07/30/20 Plan of Care End Date 10/30/20 Therapeutic Interventions Therapeutic Interventions Aquatic Therapy,Balance Training,Gait Training,Home Exercise Program,Manual Therapy,Neuromuscular Re- education,Soft Tissue Mobilization,Therapeutic Activities,Therapeutic Exercises Next Visit Focus/Plan Next Note Type Treatment Note Next Visit Plan Continue focus on opposing arm swing during gait, increasing activity tolerance, increasing gait /s an AD, and improving balance
--- NOTE | 2020-10-08 10:27 | PT.OTN ---
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 greater than 24 hours with return to pre-existing conscious level, subsequent encounter (10/08/20) History of falling (10/08/20) Physical Therapy Treatment Note PT-OP-A Visit Information Start: 09/28/17 15:21 Freq: Status: Active Protocol: Document 10/08/20 09:45 DCW (Rec: 10/08/20 10:27 DCW [id number]) Out-Patient Physical Therapy Visit Information Visit Information Visit Type Treatment Note Visit Start Time 09:45 Visit Stop Time 10:30 Total Visit Minutes 45 Visit Number 03/09 Number of PATIENT DAY COORDINATOR Visits 0 Evaluation Information Evaluation Date 07/27/17 PT-OP-B Current Condition Start: 09/28/17 15:21 Freq: Status: Active Protocol: Document 10/12/17 13:45 DCW (Rec: 10/12/17 18:33 DCW [id number]) Current Condition History of Current Condition Onset Date 02/05/17 History of Current Condition See Pt's initial evaluation in Therapy Source Current Functional Impairments (Reported) Functional Limitations- Mobility/Gait Transfers:W/C<->Mat Stand- pivot: Independent PT-OP-C Subjective Start: 09/28/17 15:21 Freq: Status: Active Protocol: Document 10/08/20 09:45 DCW (Rec: 10/08/20 10:27 DCW [id number]) OP-PT Subjective Patient Comments Patient Comments I guess I'm alright today. PT-OP-D Balance Start: 10/12/17 18:11 Freq: Status: Active Protocol: Document 07/30/20 09:45 DCW (Rec: 07/30/20 10:27 DCW [id number]) OP-PT Balance Assessment Standing Balance Standing Balance Comments Double leg, Eyes open: 42 Donis Balance Assessment Evaluation Sitting to Standing Ability Several Tries w/Hands Unsupported Stance 30 seconds Standing to Sitting Ability Assist, Control w/Hands Transfer Ability Supervision, Verbal Cues Unsupported Stance- Eyes Closed 3 seconds Unsupported Stance- Eyes Open Assist to attain,<15 secs Reaching Forward Standing Safely, 2 inches Pick- Up Object From Floor Within 2 inches, Unable Look Behind Shoulder - Standing Supervision w/Turning Turning 360 Degrees Requires Assistance Unsupported Stance, Alternating Feet on Assist to Prevent Fall Stair Unsupported Tandem Stance Assist to Step-15 seconds Unilateral Leg Stance Lifts Leg/Unable to Hold Total Score Donis Total Score (out of 56 points) 18 Donis Impairment Rating 60 to 79% Impaired (Score 12- 22) Mejia Fall Scale Copyright Permission PT-OP-E Functional Tests Start: 10/12/17 18:11 Freq: Status: Active Protocol: Document 07/30/20 09:45 DCW (Rec: 07/30/20 10:27 DCW [id number]) Functional Tests 6 Minute Walk Test Distance 720' Device Used 4WW PT-OP-G Mobility & Gait Start: 12/23/18 10:02 Freq: Status: Active Protocol: Document 07/30/20 09:45 DCW (Rec: 07/30/20 10:27 DCW [id number]) OP Gait Assessment Gait Gait Assistance Required: Contact Guard Assist Distance (Feet) 720 Assistive Devices Assistive Device Gait Belt,4 Wheeled Walker Gait Deviations General Gait Pattern Antalgic,Ataxic,Decreased Stride Length,Decreased Feet Clearance,Flexed Trunk,Lateral Trunk Lean PT-OP-M Strength Start: 10/12/17 18:11 Freq: Status: Active Protocol: Document 07/30/20 09:45 DCW (Rec: 07/30/20 10:27 DCW [id number]) Hip Strength Hip Manual Muscle Testing Right Flexion (L2) 3 Fair Abduction 3+ Fair+ Adduction 3 Fair Left Flexion (L2) 4 Good Abduction 4- Good- Adduction 3 Fair Knee Strength Knee Manual Muscle Testing Right Flexion (S2) 4- Good- Extension (L3) 4 Good Left Flexion (S2) 5 Normal Extension (L3) 5 Normal Ankle/Foot Strength Ankle and Foot Manual Muscle Testing Right Dorsiflexion (L4) 2- Poor- Plantarflexion (S1) 3- Fair- Left Dorsiflexion (L4) 3+ Fair+ Plantarflexion (S1) 3+ Fair+ PT-OP-Q Treatments Start: 09/28/17 15:21 Freq: Status: Active Protocol: Document 10/08/20 09:45 DCW (Rec: 10/08/20 10:27 DC [id number]) Gym Equipment Shuttle Recovery Bilateral Heel Raises Resistance 100# Reps/Time x60 Unilateral Squats Resistance 75# Shuttle Recovery Platform Stable Reps/Time x20 each Bilateral Squats Resistance 125# Shuttle Recovery Platform Stable Reps/Time x30 Shuttle Balance 1 Details Blue Comments Wide WILIAN Therapeutic Exercises Other Exercises 1 Other Exercise Name Resisted Sidestepping Resistance Green Equipment Used T-band Gait Training Gait Activity 3 Description Ambulate /s AD Device Used none Level of Assistance CGA Distance/Duration 190' x1 Neuro Re-Education Treatment Balance Activities 6 Details Ball/cone pick-up, ball toss PT-OP-T Assessment and Plan Start: 09/28/17 15:21 Freq: Status: Active Protocol: Document 10/08/20 09:45 DCW (Rec: 10/08/20 10:27 [facility] [id number]) Physical Therapy Assessment Impairments Impairments Activity Tolerance,Balance, Functional Activities, Functional Mobility,Gait,ROM, Strength Goals Eight Impairment Unassisted Gait Short Term Goal (STG) Pt to ambulate 300' SBA /s AD STG Duration Met Brood Hatchery Manager Goal (LTG) Pt to ambulate 400' SBA /s AD LTG Duration 10/30/20 Seven Impairment Donis Short Term Goal (STG) Pt to score 22/56 on Donis Balance scale STG Duration Met Skilled Nursing Goal (LTG) Pt to score 35/56 on Donis Balance scale LTG Duration 10/30/20 - recent decline to 18/ 56 Six Impairment Static Standing Balance Short Term Goal (STG) Pt to stand independently for 2 minutes STG Duration Met Skilled Nursing Goal (LTG) Pt to stand independently for 3 minutes LTG Duration 10/30/20 - recent decline Five Impairment 6 MWT Brood Hatchery Manager Goal (LTG) Pt to ambulate 1000' without rest using 4WW during 6 MWT LTG Duration 10/30/20 - recent decline to 720 ' Four Impairment Foot slap Short Term Goal (STG) Pt to regularly wear R AFO to limit foot drop and help normalize gait pattern STG Duration Met Three Impairment Transfers Short Term Goal (STG) Pt to transfer independently from mat<->w/c with no assistive devices STG Duration Met Two Impairment Ankle weakness Brood Hatchery Manager Goal (LTG) Pt to display 2/5 MMT in R DF, 4/5 MMT in R PF, and 4+/5 MMT in all other bilateral ankle movements LTG Duration 10/30/20 - recent decline One Impairment Activity tolerance Skilled Nursing Goal (LTG) Pt to tolerate activity up to 15 minutes without a break LTG Duration 10/30/20 - recent decline Progress Towards Goals Progress Towards Goals Slow Progress due to Activity Tolerance,Slow Progress due to Medical Issues Assessment Summary Assessment Pt showing fairly good improvement recently after a sudden decline secondary to a UTI/sepsis. Pt nearing prior level of function, having easier time performing activities, not needing as much of a break between exercises. Physical Therapy Plan Frequency and Duration Frequency of Treatment 1x/Week Duration of Treatment 3 months Plan of Care Start Date 07/30/20 Plan of Care End Date 10/30/20 Therapeutic Interventions Therapeutic Interventions Aquatic Therapy,Balance Training,Gait Training,Home Exercise Program,Manual Therapy,Neuromuscular Re- education,Soft Tissue Mobilization,Therapeutic Activities,Therapeutic Exercises Next Visit Focus/Plan Next Note Type Treatment Note Next Visit Plan Continue focus on opposing arm swing during gait, increasing activity tolerance, increasing gait /s an AD, and improving balance
--- NOTE | 2020-10-15 10:29 | PT.OTN ---
Current Diagnoses Foot drop, right foot (10/15/20) Muscle weakness (generalized) (10/15/20) Unsteadiness on feet (10/15/20) Unspecified abnormalities of gait and mobility (10/15/20) Traumatic subdural hemorrhage with loss of consciousness greater than 24 hours with return to pre-existing conscious level, subsequent encounter (10/15/20) History of falling (10/15/20) Physical Therapy Treatment Note PT-OP-A Visit Information Start: 09/28/17 15:21 Freq: Status: Active Protocol: Document 10/15/20 09:45 DCW (Rec: 10/15/20 10:29 DCW [id number]) Out-Patient Physical Therapy Visit Information Visit Information Visit Type Treatment Note Visit Start Time 09:45 Visit Stop Time 10:30 Total Visit Minutes 45 Visit Number 06/09 Number of RAKE OPERATOR Visits 0 Evaluation Information Evaluation Date 07/27/17 PT-OP-B Current Condition Start: 09/28/17 15:21 Freq: Status: Active Protocol: Document 10/12/17 13:45 DCW (Rec: 10/12/17 18:33 DCW [id number]) Current Condition History of Current Condition Onset Date 02/05/17 History of Current Condition See Pt's initial evaluation in Therapy Source Current Functional Impairments (Reported) Functional Limitations- Mobility/Gait Transfers:W/C<->Mat Stand- pivot: Independent PT-OP-C Subjective Start: 09/28/17 15:21 Freq: Status: Active Protocol: Document 10/15/20 09:45 DCW (Rec: 10/15/20 10:29 DCW [id number]) OP-PT Subjective Patient Comments Patient Comments Pt feeling good today. PT-OP-D Balance Start: 10/12/17 18:11 Freq: Status: Active Protocol: Document 07/30/20 09:45 DCW (Rec: 07/30/20 10:27 DCW [id number]) OP-PT Balance Assessment Standing Balance Standing Balance Comments Double leg, Eyes open: 42 Donis Balance Assessment Evaluation Sitting to Standing Ability Several Tries w/Hands Unsupported Stance 30 seconds Standing to Sitting Ability Assist, Control w/Hands Transfer Ability Supervision, Verbal Cues Unsupported Stance- Eyes Closed 3 seconds Unsupported Stance- Eyes Open Assist to attain,<15 secs Reaching Forward Standing Safely, 2 inches Pick- Up Object From Floor Within 2 inches, Unable Look Behind Shoulder - Standing Supervision w/Turning Turning 360 Degrees Requires Assistance Unsupported Stance, Alternating Feet on Assist to Prevent Fall Stair Unsupported Tandem Stance Assist to Step-15 seconds Unilateral Leg Stance Lifts Leg/Unable to Hold Total Score Donis Total Score (out of 56 points) 18 Donis Impairment Rating 60 to 79% Impaired (Score 12- 22) Mejia Fall Scale Copyright Permission PT-OP-E Functional Tests Start: 10/12/17 18:11 Freq: Status: Active Protocol: Document 07/30/20 09:45 DCW (Rec: 07/30/20 10:27 DCW [id number]) Functional Tests 6 Minute Walk Test Distance 720' Device Used 4WW PT-OP-G Mobility & Gait Start: 12/23/18 10:02 Freq: Status: Active Protocol: Document 07/30/20 09:45 DCW (Rec: 07/30/20 10:27 DCW [id number]) OP Gait Assessment Gait Gait Assistance Required: Contact Guard Assist Distance (Feet) 720 Assistive Devices Assistive Device Gait Belt,4 Wheeled Walker Gait Deviations General Gait Pattern Antalgic,Ataxic,Decreased Stride Length,Decreased Feet Clearance,Flexed Trunk,Lateral Trunk Lean PT-OP-M Strength Start: 10/12/17 18:11 Freq: Status: Active Protocol: Document 07/30/20 09:45 DCW (Rec: 07/30/20 10:27 DCW [id number]) Hip Strength Hip Manual Muscle Testing Right Flexion (L2) 3 Fair Abduction 3+ Fair+ Adduction 3 Fair Left Flexion (L2) 4 Good Abduction 4- Good- Adduction 3 Fair Knee Strength Knee Manual Muscle Testing Right Flexion (S2) 4- Good- Extension (L3) 4 Good Left Flexion (S2) 5 Normal Extension (L3) 5 Normal Ankle/Foot Strength Ankle and Foot Manual Muscle Testing Right Dorsiflexion (L4) 2- Poor- Plantarflexion (S1) 3- Fair- Left Dorsiflexion (L4) 3+ Fair+ Plantarflexion (S1) 3+ Fair+ PT-OP-Q Treatments Start: 09/28/17 15:21 Freq: Status: Active Protocol: Document 10/15/20 09:45 DCW (Rec: 10/15/20 10:29 [facility] [id number]) Gait Training Gait Activity 3 Description Ambulate /s AD Device Used none Level of Assistance CGA Distance/Duration 190' x1 Neuro Re-Education Treatment Balance Activities 6 Details Ball/cone pick-up, ball toss 5 Details SLS Equipment // bars Comments CGA 4 Details NBOS Surface Morel foam Comments CGA 3 Details Hurdles Equipment // bars Comments Fwd, Side-stepping 2 Details Tandem Stance Equipment // bars PT-OP-T Assessment and Plan Start: 09/28/17 15:21 Freq: Status: Active Protocol: Document 10/15/20 09:45 DCW (Rec: 10/15/20 10:29 [facility] [id number]) Physical Therapy Assessment Impairments Impairments Activity Tolerance,Balance, Functional Activities, Functional Mobility,Gait,ROM, Strength Goals Eight Impairment Unassisted Gait Short Term Goal (STG) Pt to ambulate 300' SBA /s AD STG Duration Met Insurance Specialist Goal (LTG) Pt to ambulate 400' SBA /s AD LTG Duration 10/30/20 Seven Impairment Donis Short Term Goal (STG) Pt to score 22/56 on Donis Balance scale STG Duration Met Insurance Specialist Goal (LTG) Pt to score 35/56 on Donis Balance scale LTG Duration 10/30/20 - recent decline to 18/ 56 Six Impairment Static Standing Balance Short Term Goal (STG) Pt to stand independently for 2 minutes STG Duration Met Alf Goal (LTG) Pt to stand independently for 3 minutes LTG Duration 10/30/20 - recent decline Five Impairment 6 MWT Alf Goal (LTG) Pt to ambulate 1000' without rest using 4WW during 6 MWT LTG Duration 10/30/20 - recent decline to 720 ' Four Impairment Foot slap Short Term Goal (STG) Pt to regularly wear R AFO to limit foot drop and help normalize gait pattern STG Duration Met Three Impairment Transfers Short Term Goal (STG) Pt to transfer independently from mat<->w/c with no assistive devices STG Duration Met Two Impairment Ankle weakness Alf Goal (LTG) Pt to display 2/5 MMT in R DF, 4/5 MMT in R PF, and 4+/5 MMT in all other bilateral ankle movements LTG Duration 10/30/20 - recent decline One Impairment Activity tolerance Alf Goal (LTG) Pt to tolerate activity up to 15 minutes without a break LTG Duration 10/30/20 - recent decline Progress Towards Goals Progress Towards Goals Slow Progress due to Activity Tolerance,Slow Progress due to Medical Issues Assessment Summary Assessment Pt doing well again today, gait without an assistive device has plateaued somewhat, will try to motivate pt to go further next week. Physical Therapy Plan Frequency and Duration Frequency of Treatment 1x/Week Duration of Treatment 3 months Plan of Care Start Date 07/30/20 Plan of Care End Date 10/30/20 Therapeutic Interventions Therapeutic Interventions Aquatic Therapy,Balance Training,Gait Training,Home Exercise Program,Manual Therapy,Neuromuscular Re- education,Soft Tissue Mobilization,Therapeutic Activities,Therapeutic Exercises Next Visit Focus/Plan Next Note Type Treatment Note Next Visit Plan Continue focus on opposing arm swing during gait, increasing activity tolerance, increasing gait /s an AD, and improving balance
--- NOTE | 2020-10-22 10:27 | PT.OTN ---
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 with return to pre-existing conscious level, subsequent encounter (10/22/20) History of falling (10/22/20) Physical Therapy Treatment Note PT-OP-A Visit Information Start: 09/28/17 15:21 Freq: Status: Active Protocol: Document 10/22/20 09:45 DCW (Rec: 10/22/20 10:27 DCW [id number]) Out-Patient Physical Therapy Visit Information Visit Information Visit Type Treatment Note Visit Start Time 09:45 Visit Stop Time 10:30 Total Visit Minutes 45 Visit Number 2/ Number of HAND LAMINATOR Visits 0 Evaluation Information Evaluation Date 07/27/17 PT-OP-B Current Condition Start: 09/28/17 15:21 Freq: Status: Active Protocol: Document 10/12/17 13:45 DCW (Rec: 10/12/17 18:33 DCW [id number]) Current Condition History of Current Condition Onset Date 02/05/17 History of Current Condition See Pt's initial evaluation in Therapy Source Current Functional Impairments (Reported) Functional Limitations- Mobility/Gait Transfers:W/C<->Mat Stand- pivot: Independent PT-OP-C Subjective Start: 09/28/17 15:21 Freq: Status: Active Protocol: Document 10/22/20 09:45 DCW (Rec: 10/22/20 10:27 DCW [id number]) OP-PT Subjective Patient Comments Patient Comments My balance started out pretty bad this morning, but I think it's better. PT-OP-D Balance Start: 10/12/17 18:11 Freq: Status: Active Protocol: Document 07/30/20 09:45 DCW (Rec: 07/30/20 10:27 DCW [id number]) OP-PT Balance Assessment Standing Balance Standing Balance Comments Double leg, Eyes open: 42 Donis Balance Assessment Evaluation Sitting to Standing Ability Several Tries w/Hands Unsupported Stance 30 seconds Standing to Sitting Ability Assist, Control w/Hands Transfer Ability Supervision, Verbal Cues Unsupported Stance- Eyes Closed 3 seconds Unsupported Stance- Eyes Open Assist to attain,<15 secs Reaching Forward Standing Safely, 2 inches Pick- Up Object From Floor Within 2 inches, Unable Look Behind Shoulder - Standing Supervision w/Turning Turning 360 Degrees Requires Assistance Unsupported Stance, Alternating Feet on Assist to Prevent Fall Stair Unsupported Tandem Stance Assist to Step-15 seconds Unilateral Leg Stance Lifts Leg/Unable to Hold Total Score Donis Total Score (out of 56 points) 18 Donis Impairment Rating 60 to 79% Impaired (Score 12- 22) Mejia Fall Scale Copyright Permission PT-OP-E Functional Tests Start: 10/12/17 18:11 Freq: Status: Active Protocol: Document 07/30/20 09:45 DCW (Rec: 07/30/20 10:27 DCW [id number]) Functional Tests 6 Minute Walk Test Distance 720' Device Used 4WW PT-OP-G Mobility & Gait Start: 12/23/18 10:02 Freq: Status: Active Protocol: Document 07/30/20 09:45 DCW (Rec: 07/30/20 10:27 DCW [id number]) OP Gait Assessment Gait Gait Assistance Required: Contact Guard Assist Distance (Feet) 720 Assistive Devices Assistive Device Gait Belt,4 Wheeled Walker Gait Deviations General Gait Pattern Antalgic,Ataxic,Decreased Stride Length,Decreased Feet Clearance,Flexed Trunk,Lateral Trunk Lean PT-OP-M Strength Start: 10/12/17 18:11 Freq: Status: Active Protocol: Document 07/30/20 09:45 DCW (Rec: 07/30/20 10:27 DCW [id number]) Hip Strength Hip Manual Muscle Testing Right Flexion (L2) 3 Fair Abduction 3+ Fair+ Adduction 3 Fair Left Flexion (L2) 4 Good Abduction 4- Good- Adduction 3 Fair Knee Strength Knee Manual Muscle Testing Right Flexion (S2) 4- Good- Extension (L3) 4 Good Left Flexion (S2) 5 Normal Extension (L3) 5 Normal Ankle/Foot Strength Ankle and Foot Manual Muscle Testing Right Dorsiflexion (L4) 2- Poor- Plantarflexion (S1) 3- Fair- Left Dorsiflexion (L4) 3+ Fair+ Plantarflexion (S1) 3+ Fair+ PT-OP-Q Treatments Start: 09/28/17 15:21 Freq: Status: Active Protocol: Document 10/22/20 09:45 DCW (Rec: 10/22/20 10:27 DCW [id number]) Therapeutic Exercises Standing Exercises Hamstring curls Standing Exercise Name HS curls at rail Side bilateral Resistance 10# Equipment Used // bars Reps/Minutes x20 Standing Marching Standing Exercise Name Toe-taps Side bilateral Resistance 10# Equipment Used // bars Other Exercises 1 Other Exercise Name Resisted Sidestepping Resistance Green Equipment Used T-band Gait Training Gait Activity 3 Description Ambulate /s AD Device Used none Level of Assistance CGA Distance/Duration 80' x2 Neuro Re-Education Treatment Balance Activities 6 Details Ball/cone pick-up, ball toss 5 Details SLS Equipment // bars Comments Min Ax1 4 Details NBOS Surface Morel foam Comments Min Ax1, VCs to limit forward flexion at the hip PT-OP-T Assessment and Plan Start: 09/28/17 15:21 Freq: Status: Active Protocol: Document 10/22/20 09:45 DCW (Rec: 10/22/20 10:27 DCW [id number]) Physical Therapy Assessment Impairments Impairments Activity Tolerance,Balance, Functional Activities, Functional Mobility,Gait,ROM, Strength Goals Eight Impairment Unassisted Gait Short Term Goal (STG) Pt to ambulate 300' SBA /s AD STG Duration Met Band Saw Operator Cake Cutting Goal (LTG) Pt to ambulate 400' SBA /s AD LTG Duration 10/30/20 Seven Impairment Donis Short Term Goal (STG) Pt to score 22/56 on Donis Balance scale STG Duration Met Residential Goal (LTG) Pt to score 35/56 on Donis Balance scale LTG Duration 10/30/20 - recent decline to 18/ 56 Six Impairment Static Standing Balance Short Term Goal (STG) Pt to stand independently for 2 minutes STG Duration Met Band Saw Operator Cake Cutting Goal (LTG) Pt to stand independently for 3 minutes LTG Duration 10/30/20 - recent decline Five Impairment 6 MWT Band Saw Operator Cake Cutting Goal (LTG) Pt to ambulate 1000' without rest using 4WW during 6 MWT LTG Duration 10/30/20 - recent decline to 720 ' Four Impairment Foot slap Short Term Goal (STG) Pt to regularly wear R AFO to limit foot drop and help normalize gait pattern STG Duration Met Three Impairment Transfers Short Term Goal (STG) Pt to transfer independently from mat<->w/c with no assistive devices STG Duration Met Two Impairment Ankle weakness Band Saw Operator Cake Cutting Goal (LTG) Pt to display 2/5 MMT in R DF, 4/5 MMT in R PF, and 4+/5 MMT in all other bilateral ankle movements LTG Duration 10/30/20 - recent decline One Impairment Activity tolerance Band Saw Operator Cake Cutting Goal (LTG) Pt to tolerate activity up to 15 minutes without a break LTG Duration 10/30/20 - recent decline Progress Towards Goals Progress Towards Goals Slow Progress due to Activity Tolerance,Slow Progress due to Medical Issues Assessment Summary Assessment Pt was struggling more than usual today with balance, had multiple missteps/LOBs while ambulating today, required therapist Mod Ax1 to prevent fall. Physical Therapy Plan Frequency and Duration Frequency of Treatment 1x/Week Duration of Treatment 3 months Plan of Care Start Date 07/30/20 Plan of Care End Date 10/30/20 Therapeutic Interventions Therapeutic Interventions Aquatic Therapy,Balance Training,Gait Training,Home Exercise Program,Manual Therapy,Neuromuscular Re- education,Soft Tissue Mobilization,Therapeutic Activities,Therapeutic Exercises Next Visit Focus/Plan Next Note Type Treatment Note Next Visit Plan Continue focus on opposing arm swing during gait, increasing activity tolerance, increasing gait /s an AD, and improving balance
--- NOTE | 2020-11-05 10:38 | PT.OTN ---
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 greater than 24 hours with return to pre-existing conscious level, subsequent encounter (11/05/20) History of falling (11/05/20) Physical Therapy Treatment Note PT-OP-A Visit Information Start: 09/28/17 15:21 Freq: Status: Active Protocol: Document 11/05/20 09:45 DCW (Rec: 11/05/20 10:38 DCW [id number]) Out-Patient Physical Therapy Visit Information Visit Information Visit Type Progress Note Visit Start Time 09:45 Visit Stop Time 10:30 Total Visit Minutes 45 Visit Number 06/09 Number of BUSINESS CONSULTANT Visits 0 Evaluation Information Evaluation Date 07/27/17 PT-OP-B Current Condition Start: 09/28/17 15:21 Freq: Status: Active Protocol: Document 10/12/17 13:45 DCW (Rec: 10/12/17 18:33 DCW [id number]) Current Condition History of Current Condition Onset Date 02/05/17 History of Current Condition See Pt's initial evaluation in Therapy Source Current Functional Impairments (Reported) Functional Limitations- Mobility/Gait Transfers:W/C<->Mat Stand- pivot: Independent PT-OP-C Subjective Start: 09/28/17 15:21 Freq: Status: Active Protocol: Document 11/05/20 09:45 DCW (Rec: 11/05/20 10:38 DCW [id number]) OP-PT Subjective Patient Comments Patient Comments Pt notes he has been feeling better after feeling unwell last week. PT-OP-D Balance Start: 10/12/17 18:11 Freq: Status: Active Protocol: Document 11/05/20 09:45 DCW (Rec: 11/05/20 10:20 DCW [id number]) OP-PT Balance Assessment Standing Balance Standing Balance Comments Double leg, Eyes open: 1'01 Balance Tests Donis Balance Test Donis Balance Test Score 27/56 Donis Balance Assessment Evaluation Sitting to Standing Ability Independent w/Hands Unsupported Stance 30 seconds Sitting Unsupported, Feet on Floor Safely- 2 minutes Standing to Sitting Ability Assist, Control w/Hands Transfer Ability Supervision, Verbal Cues Unsupported Stance- Eyes Closed 3 seconds Unsupported Stance- Eyes Open Assist to attain,<15 secs Reaching Forward Standing Safely, 5 inches Pick- Up Object From Floor Supervision Look Behind Shoulder - Standing Supervision w/Turning Turning 360 Degrees Supervision/Verbal Cues Unsupported Stance, Alternating Feet on Assist to Prevent Fall Stair Unsupported Tandem Stance Small Step- 30 seconds Unilateral Leg Stance Lifts Leg/Unable to Hold Total Score Donis Total Score (out of 56 points) 27 Donis Impairment Rating 40 to 59% Impaired (Score 23- 33) Mejia Fall Scale Copyright Permission PT-OP-E Functional Tests Start: 10/12/17 18:11 Freq: Status: Active Protocol: Document 11/05/20 09:45 DCW (Rec: 11/05/20 10:20 DCW [id number]) Functional Tests 6 Minute Walk Test Distance 867' Device Used 4WW PT-OP-G Mobility & Gait Start: 12/23/18 10:02 Freq: Status: Active Protocol: Document 11/05/20 09:45 DCW (Rec: 11/05/20 10:20 DCW [id number]) OP Gait Assessment Gait Gait Assistance Required: Contact Guard Assist Distance (Feet) 180 Assistive Devices Assistive Device None,Gait Belt Gait Deviations General Gait Pattern Antalgic,Ataxic,Decreased Stride Length,Decreased Feet Clearance,Flexed Trunk,Lateral Trunk Lean PT-OP-M Strength Start: 10/12/17 18:11 Freq: Status: Active Protocol: Document 11/05/20 09:45 DCW (Rec: 11/05/20 10:20 DCW [id number]) Hip Strength Hip Manual Muscle Testing Right Flexion (L2) 5 Normal Abduction 4+ Good+ Adduction 5 Normal Left Flexion (L2) 5 Normal Abduction 4+ Good+ Adduction 4+ Good+ Knee Strength Knee Manual Muscle Testing Right Flexion (S2) 4+ Good+ Extension (L3) 4+ Good+ Left Flexion (S2) 5 Normal Extension (L3) 5 Normal Ankle/Foot Strength Ankle and Foot Manual Muscle Testing Right Dorsiflexion (L4) 2 Poor Plantarflexion (S1) 3+ Fair+ Left Dorsiflexion (L4) 4 Good Plantarflexion (S1) 4- Good- PT-OP-Q Treatments Start: 09/28/17 15:21 Freq: Status: Active Protocol: Document 11/05/20 09:45 DCW (Rec: 11/05/20 10:38 [facility] [id number]) Gait Training Gait Activity 2 Description 6MWT Neuro Re-Education Treatment Other Activities 1 Details Donis, Standing balance testing PT-OP-T Assessment and Plan Start: 09/28/17 15:21 Freq: Status: Active Protocol: Document 11/05/20 09:45 DCW (Rec: 11/05/20 10:38 [facility] [id number]) Physical Therapy Assessment Impairments Impairments Activity Tolerance,Balance, Functional Activities, Functional Mobility,Gait,ROM, Strength Goals Eight Impairment Unassisted Gait Short Term Goal (STG) Pt to ambulate 300' SBA /s AD STG Duration Met Halfway Goal (LTG) Pt to ambulate 400' SBA /s AD LTG Duration 02/03/21 Seven Impairment Donis Short Term Goal (STG) Pt to score 22/56 on Donis Balance scale STG Duration Met Community Action Worker Goal (LTG) Pt to score 35/56 on Donis Balance scale LTG Duration 02/03/21 - improved to 27/56 Six Impairment Static Standing Balance Short Term Goal (STG) Pt to stand independently for 2 minutes STG Duration Met Community Action Worker Goal (LTG) Pt to stand independently for 3 minutes LTG Duration 02/03/21 Five Impairment 6 MWT Community Action Worker Goal (LTG) Pt to ambulate 1000' without rest using 4WW during 6 MWT LTG Duration 02/03/21 - improved to 867' Four Impairment Foot slap Short Term Goal (STG) Pt to regularly wear R AFO to limit foot drop and help normalize gait pattern STG Duration Met Three Impairment Transfers Short Term Goal (STG) Pt to transfer independently from mat<->w/c with no assistive devices STG Duration Met Two Impairment Ankle weakness Halfway Goal (LTG) Pt to display 2/5 MMT in R DF, 4/5 MMT in R PF, and 4+/5 MMT in all other bilateral ankle movements LTG Duration 02/03/21 - recent decline One Impairment Activity tolerance Community Action Worker Goal (LTG) Pt to tolerate activity up to 15 minutes without a break LTG Duration 02/03/21 Progress Towards Goals Progress Towards Goals Slow Progress due to Activity Tolerance,Slow Progress due to Medical Issues Assessment Summary Assessment Pt showed good improvement compared to his last reassessment, 6MWT increased from 720' to 867', Donis score increased from 18/56 to 27/56. Overall, however, pt has just returned to pre-UTI levels. Hope to show more progress by next reassessment. Physical Therapy Plan Frequency and Duration Frequency of Treatment 1x/Week Duration of Treatment 3 months Plan of Care Start Date 11/05/20 Plan of Care End Date 02/03/21 Therapeutic Interventions Therapeutic Interventions Aquatic Therapy,Balance Training,Gait Training,Home Exercise Program,Manual Therapy,Neuromuscular Re- education,Soft Tissue Mobilization,Therapeutic Activities,Therapeutic Exercises Next Visit Focus/Plan Next Note Type Treatment Note Next Visit Plan Continue focus on opposing arm swing during gait, increasing activity tolerance, increasing gait /s an AD, and improving balance
--- NOTE | 2020-11-05 10:38 | PT.OPPOC ---
Physical, Occupational & Speech Therapy At [facility] 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 greater than 24 hours with return to pre-existing conscious level, subsequent encounter (11/05/20) History of falling (11/05/20) Visit Care Team Role Provider Type Elver Eubanks MD Attending Provider Physician Family Provider Primary Care Provider Specialty: Internal Medicine Address: [address] [place] [address], [facility] Email: [email or web address] Plan Of Care PT-OP-T Assessment and Plan Start: 09/28/17 15:21 Freq: Status: Active Protocol: Document 11/05/20 09:45 DCW (Rec: 11/05/20 10:38 DCW [id number]) Physical Therapy Assessment Impairments Impairments Activity Tolerance,Balance, Functional Activities, Functional Mobility,Gait,ROM, Strength Goals Eight Impairment Unassisted Gait Short Term Goal (STG) Pt to ambulate 300' SBA /s AD STG Duration Met Penitentiary Goal (LTG) Pt to ambulate 400' SBA /s AD LTG Duration 02/03/21 Seven Impairment Donis Short Term Goal (STG) Pt to score 22/56 on Donis Balance scale STG Duration Met Erp Programmer Goal (LTG) Pt to score 35/56 on Donis Balance scale LTG Duration 02/03/21 - improved to 27/56 Six Impairment Static Standing Balance Short Term Goal (STG) Pt to stand independently for 2 minutes STG Duration Met Erp Programmer Goal (LTG) Pt to stand independently for 3 minutes LTG Duration 02/03/21 Five Impairment 6 MWT Penitentiary Goal (LTG) Pt to ambulate 1000' without rest using 4WW during 6 MWT LTG Duration 02/03/21 - improved to 867' Four Impairment Foot slap Short Term Goal (STG) Pt to regularly wear R AFO to limit foot drop and help normalize gait pattern STG Duration Met Three Impairment Transfers Short Term Goal (STG) Pt to transfer independently from mat<->w/c with no assistive devices STG Duration Met Two Impairment Ankle weakness Penitentiary Goal (LTG) Pt to display 2/5 MMT in R DF, 4/5 MMT in R PF, and 4+/5 MMT in all other bilateral ankle movements LTG Duration 02/03/21 - recent decline One Impairment Activity tolerance Penitentiary Goal (LTG) Pt to tolerate activity up to 15 minutes without a break LTG Duration 02/03/21 Progress Towards Goals Progress Towards Goals Slow Progress due to Activity Tolerance,Slow Progress due to Medical Issues Assessment Summary Assessment Pt showed good improvement compared to his last reassessment, 6MWT increased from 720' to 867', Donis score increased from 18/56 to 27/. Overall, however, pt has just returned to pre-UTI levels. Hope to show more progress by next reassessment. Physical Therapy Plan Frequency and Duration Frequency of Treatment 1x/Week Duration of Treatment 3 months Plan of Care Start Date 11/05/20 Plan of Care End Date 02/03/21 Therapeutic Interventions Therapeutic Interventions Aquatic Therapy,Balance Training,Gait Training,Home Exercise Program,Manual Therapy,Neuromuscular Re- education,Soft Tissue Mobilization,Therapeutic Activities,Therapeutic Exercises Next Visit Focus/Plan Next Note Type Treatment Note Next Visit Plan Continue focus on opposing arm swing during gait, increasing activity tolerance, increasing gait /s an AD, and improving balance Plan of Care Dates Plan of Care Start Date 11/05/20 Plan of Care End Date 02/03/21 Electronically Signed by: Jose Martin Freitas, PT 11/05/20 1038 Please Sign and Return: I have reviewed this Plan of Care and certify that the skilled therapy services above are required to meet the patient?s needs. Physician Signature Date Printed Name and Credentials Clinical Instructor Signature Printed Name and Credentials
--- NOTE | 2020-11-19 10:31 | PT.OTN ---
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 with return to pre-existing conscious level, subsequent encounter (11/19/20) History of falling (11/19/20) Physical Therapy Treatment Note PT-OP-A Visit Information Start: 09/28/17 15:21 Freq: Status: Active Protocol: Document 11/19/20 09:45 DCW (Rec: 11/19/20 10:31 DCW [id number]) Out-Patient Physical Therapy Visit Information Visit Information Visit Type Treatment Note Visit Start Time 09:45 Visit Stop Time 10:30 Total Visit Minutes 45 Visit Number 07/10 Number of BREAKFAST HOSTESS Visits 0 Evaluation Information Evaluation Date 07/27/17 PT-OP-B Current Condition Start: 09/28/17 15:21 Freq: Status: Active Protocol: Document 10/12/17 13:45 DCW (Rec: 10/12/17 18:33 DCW [id number]) Current Condition History of Current Condition Onset Date 02/05/17 History of Current Condition See Pt's initial evaluation in Therapy Source Current Functional Impairments (Reported) Functional Limitations- Mobility/Gait Transfers:W/C<->Mat Stand- pivot: Independent PT-OP-C Subjective Start: 09/28/17 15:21 Freq: Status: Active Protocol: Document 11/19/20 09:45 DCW (Rec: 11/19/20 10:31 DCW [id number]) OP-PT Subjective Patient Comments Patient Comments I had my quarterly exam with my primary doctor already this morning, so take it easy on me. PT-OP-D Balance Start: 10/12/17 18:11 Freq: Status: Active Protocol: Document 11/05/20 09:45 DCW (Rec: 11/05/20 10:20 DCW [id number]) OP-PT Balance Assessment Standing Balance Standing Balance Comments Double leg, Eyes open: 1'01 Balance Tests Donis Balance Test Donis Balance Test Score 27/56 Donis Balance Assessment Evaluation Sitting to Standing Ability Independent w/Hands Unsupported Stance 30 seconds Sitting Unsupported, Feet on Floor Safely- 2 minutes Standing to Sitting Ability Assist, Control w/Hands Transfer Ability Supervision, Verbal Cues Unsupported Stance- Eyes Closed 3 seconds Unsupported Stance- Eyes Open Assist to attain,<15 secs Reaching Forward Standing Safely, 5 inches Pick- Up Object From Floor Supervision Look Behind Shoulder - Standing Supervision w/Turning Turning 360 Degrees Supervision/Verbal Cues Unsupported Stance, Alternating Feet on Assist to Prevent Fall Stair Unsupported Tandem Stance Small Step- 30 seconds Unilateral Leg Stance Lifts Leg/Unable to Hold Total Score Donis Total Score (out of 56 points) 27 Donis Impairment Rating 40 to 59% Impaired (Score 23- 33) Mejia Fall Scale Copyright Permission PT-OP-E Functional Tests Start: 10/12/17 18:11 Freq: Status: Active Protocol: Document 11/05/20 09:45 DCW (Rec: 11/05/20 10:20 DCW [id number]) Functional Tests 6 Minute Walk Test Distance 867' Device Used 4WW PT-OP-G Mobility & Gait Start: 12/23/18 10:02 Freq: Status: Active Protocol: Document 11/05/20 09:45 DCW (Rec: 11/05/20 10:20 DCW [id number]) OP Gait Assessment Gait Gait Assistance Required: Contact Guard Assist Distance (Feet) 180 Assistive Devices Assistive Device None,Gait Belt Gait Deviations General Gait Pattern Antalgic,Ataxic,Decreased Stride Length,Decreased Feet Clearance,Flexed Trunk,Lateral Trunk Lean PT-OP-M Strength Start: 10/12/17 18:11 Freq: Status: Active Protocol: Document 11/05/20 09:45 DCW (Rec: 11/05/20 10:20 DCW [id number]) Hip Strength Hip Manual Muscle Testing Right Flexion (L2) 5 Normal Abduction 4+ Good+ Adduction 5 Normal Left Flexion (L2) 5 Normal Abduction 4+ Good+ Adduction 4+ Good+ Knee Strength Knee Manual Muscle Testing Right Flexion (S2) 4+ Good+ Extension (L3) 4+ Good+ Left Flexion (S2) 5 Normal Extension (L3) 5 Normal Ankle/Foot Strength Ankle and Foot Manual Muscle Testing Right Dorsiflexion (L4) 2 Poor Plantarflexion (S1) 3+ Fair+ Left Dorsiflexion (L4) 4 Good Plantarflexion (S1) 4- Good- PT-OP-Q Treatments Start: 09/28/17 15:21 Freq: Status: Active Protocol: Document 11/19/20 09:45 DCW (Rec: 11/19/20 10:31 DCW [id number]) Gym Equipment Shuttle Recovery Bilateral Heel Raises Resistance 100# Reps/Time x60 Unilateral Squats Resistance 75# Shuttle Recovery Platform Stable Reps/Time x20 each Bilateral Squats Resistance 150# Shuttle Recovery Platform Stable Reps/Time x30 Therapeutic Exercises Other Exercises 1 Other Exercise Name Resisted Sidestepping Resistance Green Equipment Used T-band Gait Training Gait Activity 3 Description Ambulate /s AD Device Used none Level of Assistance CGA Distance/Duration 190' Neuro Re-Education Treatment Balance Activities 6 Details Ball/cone pick-up, ball toss 5 Details SLS Equipment // bars Comments Min Ax1 4 Details NBOS Surface Morel foam Comments Min Ax1, VCs to limit forward flexion at the hip PT-OP-T Assessment and Plan Start: 09/28/17 15:21 Freq: Status: Active Protocol: Document 11/19/20 09:45 DCW (Rec: 11/19/20 10:31 DCW [id number]) Physical Therapy Assessment Impairments Impairments Activity Tolerance,Balance, Functional Activities, Functional Mobility,Gait,ROM, Strength Goals Eight Impairment Unassisted Gait Short Term Goal (STG) Pt to ambulate 300' SBA /s AD STG Duration Met Retirement Goal (LTG) Pt to ambulate 400' SBA /s AD LTG Duration 02/03/21 Seven Impairment Donis Short Term Goal (STG) Pt to score 22/56 on Donis Balance scale STG Duration Met Retirement Goal (LTG) Pt to score 35/56 on Donis Balance scale LTG Duration 02/03/21 - improved to 27/56 Six Impairment Static Standing Balance Short Term Goal (STG) Pt to stand independently for 2 minutes STG Duration Met National Expansion Recruiter Goal (LTG) Pt to stand independently for 3 minutes LTG Duration 02/03/21 Five Impairment 6 MWT Retirement Goal (LTG) Pt to ambulate 1000' without rest using 4WW during 6 MWT LTG Duration 02/03/21 - improved to 867' Four Impairment Foot slap Short Term Goal (STG) Pt to regularly wear R AFO to limit foot drop and help normalize gait pattern STG Duration Met Three Impairment Transfers Short Term Goal (STG) Pt to transfer independently from mat<->w/c with no assistive devices STG Duration Met Two Impairment Ankle weakness [employer] Rec[employer]iter Goal (LTG) Pt to display 2/5 MMT in R DF, 4/5 MMT in R PF, and 4+/5 MMT in all other bilateral ankle movements LTG Duration 02/03/21 - recent decline One Impairment Activity tolerance [employer] Exp[employer] Rec[employer]iter Goal (LTG) Pt to tolerate activity up to 15 minutes without a break LTG Duration 02/03/21 Progress Towards Goals Progress Towards Goals Slow Progress due to Activity Tolerance,Slow Progress due to Medical Issues Assessment Summary Assessment Pt slightly more fatigued today, had a little more difficulty with his balance during gait, but overall did fairly well. Physical Therapy Plan Frequency and Duration Frequency of Treatment 1x/Week Duration of Treatment 3 months Plan of Care Start Date 11/05/20 Plan of Care End Date 02/03/21 Therapeutic Interventions Therapeutic Interventions Aquatic Therapy,Balance Training,Gait Training,Home Exercise Program,Manual Therapy,Neuromuscular Re- education,Soft Tissue Mobilization,Therapeutic Activities,Therapeutic Exercises Next Visit Focus/Plan Next Note Type Treatment Note Next Visit Plan Continue focus on opposing arm swing during gait, increasing activity tolerance, increasing gait /s an AD, and improving balance
--- NOTE | 2020-11-26 10:26 | PT.OTN ---
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 greater than 24 hours with return to pre-existing conscious level, subsequent encounter (11/26/20) History of falling (11/26/20) Physical Therapy Treatment Note PT-OP-A Visit Information Start: 09/28/17 15:21 Freq: Status: Active Protocol: Document 11/26/20 09:45 DCW (Rec: 11/26/20 10:26 DCW [id number]) Out-Patient Physical Therapy Visit Information Visit Information Visit Type Treatment Note Visit Start Time 09:45 Visit Stop Time 10:30 Total Visit Minutes 45 Visit Number 3/ Number of REFORMATORY ATTENDANT Visits 0 Evaluation Information Evaluation Date 07/27/17 PT-OP-B Current Condition Start: 09/28/17 15:21 Freq: Status: Active Protocol: Document 10/12/17 13:45 DCW (Rec: 10/12/17 18:33 DCW [id number]) Current Condition History of Current Condition Onset Date 02/05/17 History of Current Condition See Pt's initial evaluation in Therapy Source Current Functional Impairments (Reported) Functional Limitations- Mobility/Gait Transfers:W/C<->Mat Stand- pivot: Independent PT-OP-C Subjective Start: 09/28/17 15:21 Freq: Status: Active Protocol: Document 11/26/20 09:45 DCW (Rec: 11/26/20 10:26 DCW [id number]) OP-PT Subjective Patient Comments Patient Comments Sometimes I just feel like I' m losing control of my limbs, like I don't know what they're doing. PT-OP-D Balance Start: 10/12/17 18:11 Freq: Status: Active Protocol: Document 11/05/20 09:45 DCW (Rec: 11/05/20 10:20 DCW [id number]) OP-PT Balance Assessment Standing Balance Standing Balance Comments Double leg, Eyes open: 1'01 Balance Tests Donis Balance Test Donis Balance Test Score 27/56 Donis Balance Assessment Evaluation Sitting to Standing Ability Independent w/Hands Unsupported Stance 30 seconds Sitting Unsupported, Feet on Floor Safely- 2 minutes Standing to Sitting Ability Assist, Control w/Hands Transfer Ability Supervision, Verbal Cues Unsupported Stance- Eyes Closed 3 seconds Unsupported Stance- Eyes Open Assist to attain,<15 secs Reaching Forward Standing Safely, 5 inches Pick- Up Object From Floor Supervision Look Behind Shoulder - Standing Supervision w/Turning Turning 360 Degrees Supervision/Verbal Cues Unsupported Stance, Alternating Feet on Assist to Prevent Fall Stair Unsupported Tandem Stance Small Step- 30 seconds Unilateral Leg Stance Lifts Leg/Unable to Hold Total Score Donis Total Score (out of 56 points) 27 Donis Impairment Rating 40 to 59% Impaired (Score 23- 33) Mejia Fall Scale Copyright Permission PT-OP-E Functional Tests Start: 10/12/17 18:11 Freq: Status: Active Protocol: Document 11/05/20 09:45 DCW (Rec: 11/05/20 10:20 DCW [id number]) Functional Tests 6 Minute Walk Test Distance 867' Device Used 4WW PT-OP-G Mobility & Gait Start: 12/23/18 10:02 Freq: Status: Active Protocol: Document 11/05/20 09:45 DCW (Rec: 11/05/20 10:20 DCW [id number]) OP Gait Assessment Gait Gait Assistance Required: Contact Guard Assist Distance (Feet) 180 Assistive Devices Assistive Device None,Gait Belt Gait Deviations General Gait Pattern Antalgic,Ataxic,Decreased Stride Length,Decreased Feet Clearance,Flexed Trunk,Lateral Trunk Lean PT-OP-M Strength Start: 10/12/17 18:11 Freq: Status: Active Protocol: Document 11/05/20 09:45 DCW (Rec: 11/05/20 10:20 DCW [id number]) Hip Strength Hip Manual Muscle Testing Right Flexion (L2) 5 Normal Abduction 4+ Good+ Adduction 5 Normal Left Flexion (L2) 5 Normal Abduction 4+ Good+ Adduction 4+ Good+ Knee Strength Knee Manual Muscle Testing Right Flexion (S2) 4+ Good+ Extension (L3) 4+ Good+ Left Flexion (S2) 5 Normal Extension (L3) 5 Normal Ankle/Foot Strength Ankle and Foot Manual Muscle Testing Right Dorsiflexion (L4) 2 Poor Plantarflexion (S1) 3+ Fair+ Left Dorsiflexion (L4) 4 Good Plantarflexion (S1) 4- Good- PT-OP-Q Treatments Start: 09/28/17 15:21 Freq: Status: Active Protocol: Document 11/26/20 09:45 DCW (Rec: 11/26/20 10:26 DCW [id number]) Gym Equipment Shuttle Recovery Bilateral Heel Raises Resistance 100# Reps/Time x60 Unilateral Squats Resistance 75# Shuttle Recovery Platform Stable Reps/Time x20 each Bilateral Squats Resistance 150# Shuttle Recovery Platform Stable Reps/Time x30 Gait Training Gait Activity 3 Description Ambulate /s AD Device Used none Level of Assistance CGA Distance/Duration 190' Neuro Re-Education Treatment Balance Activities 6 Details Ball/cone pick-up, ball toss 5 Details SLS Equipment // bars Comments Min Ax1 4 Details NBOS Surface Morel foam Comments Min Ax1, VCs to limit forward flexion at the hip PT-OP-T Assessment and Plan Start: 09/28/17 15:21 Freq: Status: Active Protocol: Document 11/26/20 09:45 DCW (Rec: 11/26/20 10:26 DCW [id number]) Physical Therapy Assessment Impairments Impairments Activity Tolerance,Balance, Functional Activities, Functional Mobility,Gait,ROM, Strength Goals Eight Impairment Unassisted Gait Short Term Goal (STG) Pt to ambulate 300' SBA /s AD STG Duration Met Sander Operator Goal (LTG) Pt to ambulate 400' SBA /s AD LTG Duration 02/03/21 Seven Impairment Donis Short Term Goal (STG) Pt to score 22/56 on Donis Balance scale STG Duration Met Jail Goal (LTG) Pt to score 35/56 on Donis Balance scale LTG Duration 02/03/21 - improved to 27/56 Six Impairment Static Standing Balance Short Term Goal (STG) Pt to stand independently for 2 minutes STG Duration Met Sander Operator Goal (LTG) Pt to stand independently for 3 minutes LTG Duration 02/03/21 Five Impairment 6 MWT Jail Goal (LTG) Pt to ambulate 1000' without rest using 4WW during 6 MWT LTG Duration 02/03/21 - improved to 867' Four Impairment Foot slap Short Term Goal (STG) Pt to regularly wear R AFO to limit foot drop and help normalize gait pattern STG Duration Met Three Impairment Transfers Short Term Goal (STG) Pt to transfer independently from mat<->w/c with no assistive devices STG Duration Met Two Impairment Ankle weakness Jail Goal (LTG) Pt to display 2/5 MMT in R DF, 4/5 MMT in R PF, and 4+/5 MMT in all other bilateral ankle movements LTG Duration 02/03/21 - recent decline One Impairment Activity tolerance Jail Goal (LTG) Pt to tolerate activity up to 15 minutes without a break LTG Duration 02/03/21 Progress Towards Goals Progress Towards Goals Slow Progress due to Activity Tolerance,Slow Progress due to Medical Issues Assessment Summary Assessment Pt more out of breath today, not moving well, potentially due to the record-breaking heat wave over the last few days as led to decreased mobility. Physical Therapy Plan Frequency and Duration Frequency of Treatment 1x/Week Duration of Treatment 3 months Plan of Care Start Date 11/05/20 Plan of Care End Date 02/03/21 Therapeutic Interventions Therapeutic Interventions Aquatic Therapy,Balance Training,Gait Training,Home Exercise Program,Manual Therapy,Neuromuscular Re- education,Soft Tissue Mobilization,Therapeutic Activities,Therapeutic Exercises Next Visit Focus/Plan Next Note Type Treatment Note Next Visit Plan Continue focus on opposing arm swing during gait, increasing activity tolerance, increasing gait /s an AD, and improving balance
--- NOTE | 2020-12-03 10:29 | PT.OTN ---
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 hours with return to pre-existing conscious level, subsequent encounter (12/03/20) History of falling (12/03/20) Physical Therapy Treatment Note PT-OP-A Visit Information Start: 09/28/17 15:21 Freq: Status: Active Protocol: Document 12/03/20 09:45 DCW (Rec: 12/03/20 10:29 DCW [id number]) Out-Patient Physical Therapy Visit Information Visit Information Visit Type Treatment Note Visit Start Time 09:45 Visit Stop Time 10:30 Total Visit Minutes 45 Visit Number 4/ Number of [employer] Visits 0 Evaluation Information Evaluation Date 07/27/17 PT-OP-B Current Condition Start: 09/28/17 15:21 Freq: Status: Active Protocol: Document 10/12/17 13:45 DCW (Rec: 10/12/17 18:33 DCW [id number]) Current Condition History of Current Condition Onset Date 02/05/17 History of Current Condition See Pt's initial evaluation in Therapy Source Current Functional Impairments (Reported) Functional Limitations- Mobility/Gait Transfers:W/C<->Mat Stand- pivot: Independent PT-OP-C Subjective Start: 09/28/17 15:21 Freq: Status: Active Protocol: Document 12/03/20 09:45 DCW (Rec: 12/03/20 10:29 DCW [id number]) OP-PT Subjective Patient Comments Patient Comments Pt down today, reports a good friend of his yesterday. PT-OP-D Balance Start: 10/12/17 18:11 Freq: Status: Active Protocol: Document 11/05/20 09:45 DCW (Rec: 11/05/20 10:20 DCW [id number]) OP-PT Balance Assessment Standing Balance Standing Balance Comments Double leg, Eyes open: 1'01 Balance Tests Donis Balance Test Donis Balance Test Score 27/56 Donis Balance Assessment Evaluation Sitting to Standing Ability Independent w/Hands Unsupported Stance 30 seconds Sitting Unsupported, Feet on Floor Safely- 2 minutes Standing to Sitting Ability Assist, Control w/Hands Transfer Ability Supervision, Verbal Cues Unsupported Stance- Eyes Closed 3 seconds Unsupported Stance- Eyes Open Assist to attain,<15 secs Reaching Forward Standing Safely, 5 inches Pick- Up Object From Floor Supervision Look Behind Shoulder - Standing Supervision w/Turning Turning 360 Degrees Supervision/Verbal Cues Unsupported Stance, Alternating Feet on Assist to Prevent Fall Stair Unsupported Tandem Stance Small Step- 30 seconds Unilateral Leg Stance Lifts Leg/Unable to Hold Total Score Donis Total Score (out of 56 points) 27 Donis Impairment Rating 40 to 59% Impaired (Score 23- 33) Mejia Fall Scale Copyright Permission PT-OP-E Functional Tests Start: 10/12/17 18:11 Freq: Status: Active Protocol: Document 11/05/20 09:45 DCW (Rec: 11/05/20 10:20 DCW [id number]) Functional Tests 6 Minute Walk Test Distance 867' Device Used 4WW PT-OP-G Mobility & Gait Start: 12/23/18 10:02 Freq: Status: Active Protocol: Document 11/05/20 09:45 DCW (Rec: 11/05/20 10:20 DCW [id number]) OP Gait Assessment Gait Gait Assistance Required: Contact Guard Assist Distance (Feet) 180 Assistive Devices Assistive Device None,Gait Belt Gait Deviations General Gait Pattern Antalgic,Ataxic,Decreased Stride Length,Decreased Feet Clearance,Flexed Trunk,Lateral Trunk Lean PT-OP-M Strength Start: 10/12/17 18:11 Freq: Status: Active Protocol: Document 11/05/20 09:45 DCW (Rec: 11/05/20 10:20 DCW [id number]) Hip Strength Hip Manual Muscle Testing Right Flexion (L2) 5 Normal Abduction 4+ Good+ Adduction 5 Normal Left Flexion (L2) 5 Normal Abduction 4+ Good+ Adduction 4+ Good+ Knee Strength Knee Manual Muscle Testing Right Flexion (S2) 4+ Good+ Extension (L3) 4+ Good+ Left Flexion (S2) 5 Normal Extension (L3) 5 Normal Ankle/Foot Strength Ankle and Foot Manual Muscle Testing Right Dorsiflexion (L4) 2 Poor Plantarflexion (S1) 3+ Fair+ Left Dorsiflexion (L4) 4 Good Plantarflexion (S1) 4- Good- PT-OP-Q Treatments Start: 09/28/17 15:21 Freq: Status: Active Protocol: Document 12/03/20 09:45 DCW (Rec: 12/03/20 10:29 DCW [id number]) Gym Equipment Shuttle Recovery Bilateral Heel Raises Resistance 100# Reps/Time x60 Unilateral Squats Resistance 75# Shuttle Recovery Platform Stable Reps/Time x20 each Bilateral Squats Resistance 150# Shuttle Recovery Platform Stable Reps/Time x30 Therapeutic Exercises Other Exercises 1 Other Exercise Name Resisted Sidestepping Resistance Green Equipment Used T-band Gait Training Gait Activity 3 Description Ambulate /s AD Device Used none Level of Assistance CGA Distance/Duration 190' Neuro Re-Education Treatment Balance Activities 6 Details Ball/cone pick-up, ball toss 5 Details SLS Equipment // bars Comments Min Ax1 4 Details NBOS Surface Morel foam Comments CGA PT-OP-T Assessment and Plan Start: 09/28/17 15:21 Freq: Status: Active Protocol: Document 12/03/20 09:45 DCW (Rec: 12/03/20 10:29 DCW [id number]) Physical Therapy Assessment Impairments Impairments Activity Tolerance,Balance, Functional Activities, Functional Mobility,Gait,ROM, Strength Goals Eight Impairment Unassisted Gait Short Term Goal (STG) Pt to ambulate 300' SBA /s AD STG Duration Met Halfway Goal (LTG) Pt to ambulate 400' SBA /s AD LTG Duration 02/03/21 Seven Impairment Donis Short Term Goal (STG) Pt to score 22/56 on Donis Balance scale STG Duration Met Lacquer Dipping Machine Operator Goal (LTG) Pt to score 35/56 on Donis Balance scale LTG Duration 02/03/21 - improved to 27/56 Six Impairment Static Standing Balance Short Term Goal (STG) Pt to stand independently for 2 minutes STG Duration Met Lacquer Dipping Machine Operator Goal (LTG) Pt to stand independently for 3 minutes LTG Duration 02/03/21 Five Impairment 6 MWT Halfway Goal (LTG) Pt to ambulate 1000' without rest using 4WW during 6 MWT LTG Duration 02/03/21 - improved to 867' Four Impairment Foot slap Short Term Goal (STG) Pt to regularly wear R AFO to limit foot drop and help normalize gait pattern STG Duration Met Three Impairment Transfers Short Term Goal (STG) Pt to transfer independently from mat<->w/c with no assistive devices STG Duration Met Two Impairment Ankle weakness Halfway Goal (LTG) Pt to display 2/5 MMT in R DF, 4/5 MMT in R PF, and 4+/5 MMT in all other bilateral ankle movements LTG Duration 02/03/21 - recent decline One Impairment Activity tolerance Halfway Goal (LTG) Pt to tolerate activity up to 15 minutes without a break LTG Duration 02/03/21 Progress Towards Goals Progress Towards Goals Slow Progress due to Activity Tolerance,Slow Progress due to Medical Issues Assessment Summary Assessment Pt did much better today than last week, fewer instances of SOB and fatigue today, able to fully participate in session today. Physical Therapy Plan Frequency and Duration Frequency of Treatment 1x/Week Duration of Treatment 3 months Plan of Care Start Date 11/05/20 Plan of Care End Date 02/03/21 Therapeutic Interventions Therapeutic Interventions Aquatic Therapy,Balance Training,Gait Training,Home Exercise Program,Manual Therapy,Neuromuscular Re- education,Soft Tissue Mobilization,Therapeutic Activities,Therapeutic Exercises Next Visit Focus/Plan Next Note Type Treatment Note Next Visit Plan Continue focus on opposing arm swing during gait, increasing activity tolerance, increasing gait /s an AD, and improving balance
--- NOTE | 2020-12-10 10:29 | PT.OTN ---
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 with return to pre-existing conscious level, subsequent encounter (12/10/20) History of falling (12/10/20) Physical Therapy Treatment Note PT-OP-A Visit Information Start: 09/28/17 15:21 Freq: Status: Active Protocol: Document 12/10/20 09:45 DCW (Rec: 12/10/20 10:29 DCW [id number]) Out-Patient Physical Therapy Visit Information Visit Information Visit Type Treatment Note Visit Start Time 09:45 Visit Stop Time 10:30 Total Visit Minutes 45 Visit Number 5/ Number of INSTRUMENT MAKER APPRENTICE Visits 0 Evaluation Information Evaluation Date 07/27/17 PT-OP-B Current Condition Start: 09/28/17 15:21 Freq: Status: Active Protocol: Document 10/12/17 13:45 DCW (Rec: 10/12/17 18:33 DCW [id number]) Current Condition History of Current Condition Onset Date 02/05/17 History of Current Condition See Pt's initial evaluation in Therapy Source Current Functional Impairments (Reported) Functional Limitations- Mobility/Gait Transfers:W/C<->Mat Stand- pivot: Independent PT-OP-C Subjective Start: 09/28/17 15:21 Freq: Status: Active Protocol: Document 12/10/20 09:45 DCW (Rec: 12/10/20 10:29 DCW [id number]) OP-PT Subjective Patient Comments Patient Comments I'm having more and more balance problems. I've had a couple of falls at home. PT-OP-D Balance Start: 10/12/17 18:11 Freq: Status: Active Protocol: Document 11/05/20 09:45 DCW (Rec: 11/05/20 10:20 DCW [id number]) OP-PT Balance Assessment Standing Balance Standing Balance Comments Double leg, Eyes open: 1'01 Balance Tests Donis Balance Test Donis Balance Test Score 27/56 Donis Balance Assessment Evaluation Sitting to Standing Ability Independent w/Hands Unsupported Stance 30 seconds Sitting Unsupported, Feet on Floor Safely- 2 minutes Standing to Sitting Ability Assist, Control w/Hands Transfer Ability Supervision, Verbal Cues Unsupported Stance- Eyes Closed 3 seconds Unsupported Stance- Eyes Open Assist to attain,<15 secs Reaching Forward Standing Safely, 5 inches Pick- Up Object From Floor Supervision Look Behind Shoulder - Standing Supervision w/Turning Turning 360 Degrees Supervision/Verbal Cues Unsupported Stance, Alternating Feet on Assist to Prevent Fall Stair Unsupported Tandem Stance Small Step- 30 seconds Unilateral Leg Stance Lifts Leg/Unable to Hold Total Score Donis Total Score (out of 56 points) 27 Donis Impairment Rating 40 to 59% Impaired (Score 23- 33) Mejia Fall Scale Copyright Permission PT-OP-E Functional Tests Start: 10/12/17 18:11 Freq: Status: Active Protocol: Document 11/05/20 09:45 DCW (Rec: 11/05/20 10:20 DCW [id number]) Functional Tests 6 Minute Walk Test Distance 867' Device Used 4WW PT-OP-G Mobility & Gait Start: 12/23/18 10:02 Freq: Status: Active Protocol: Document 11/05/20 09:45 DCW (Rec: 11/05/20 10:20 DCW [id number]) OP Gait Assessment Gait Gait Assistance Required: Contact Guard Assist Distance (Feet) 180 Assistive Devices Assistive Device None,Gait Belt Gait Deviations General Gait Pattern Antalgic,Ataxic,Decreased Stride Length,Decreased Feet Clearance,Flexed Trunk,Lateral Trunk Lean PT-OP-M Strength Start: 10/12/17 18:11 Freq: Status: Active Protocol: Document 11/05/20 09:45 DCW (Rec: 11/05/20 10:20 DCW [id number]) Hip Strength Hip Manual Muscle Testing Right Flexion (L2) 5 Normal Abduction 4+ Good+ Adduction 5 Normal Left Flexion (L2) 5 Normal Abduction 4+ Good+ Adduction 4+ Good+ Knee Strength Knee Manual Muscle Testing Right Flexion (S2) 4+ Good+ Extension (L3) 4+ Good+ Left Flexion (S2) 5 Normal Extension (L3) 5 Normal Ankle/Foot Strength Ankle and Foot Manual Muscle Testing Right Dorsiflexion (L4) 2 Poor Plantarflexion (S1) 3+ Fair+ Left Dorsiflexion (L4) 4 Good Plantarflexion (S1) 4- Good- PT-OP-Q Treatments Start: 09/28/17 15:21 Freq: Status: Active Protocol: Document 12/10/20 09:45 DCW (Rec: 12/10/20 10:29 DCW [id number]) Gym Equipment Shuttle Recovery Bilateral Heel Raises Resistance 100# Reps/Time x60 Unilateral Squats Resistance 75# Shuttle Recovery Platform Stable Reps/Time x20 each Bilateral Squats Resistance 150# Shuttle Recovery Platform Stable Reps/Time x30 Gait Training Gait Activity 3 Description Ambulate /s AD Device Used none Level of Assistance CGA Distance/Duration 170' Comments Aide follows with 4WW Neuro Re-Education Treatment Balance Activities 5 Details SLS Equipment // bars Comments Min Ax1 4 Details NBOS Surface Morel foam Comments CGA 3 Details Hurdles Equipment // bars Comments Fwd, Side-stepping PT-OP-T Assessment and Plan Start: 09/28/17 15:21 Freq: Status: Active Protocol: Document 12/10/20 09:45 DCW (Rec: 12/10/20 10:29 DCW [id number]) Physical Therapy Assessment Impairments Impairments Activity Tolerance,Balance, Functional Activities, Functional Mobility,Gait,ROM, Strength Goals Eight Impairment Unassisted Gait Short Term Goal (STG) Pt to ambulate 300' SBA /s AD STG Duration Met Usp Goal (LTG) Pt to ambulate 400' SBA /s AD LTG Duration 02/03/21 Seven Impairment Donis Short Term Goal (STG) Pt to score 22/56 on Donis Balance scale STG Duration Met Usp Goal (LTG) Pt to score 35/56 on Donis Balance scale LTG Duration 02/03/21 - improved to 27/56 Six Impairment Static Standing Balance Short Term Goal (STG) Pt to stand independently for 2 minutes STG Duration Met Manager Market Intelligence Goal (LTG) Pt to stand independently for 3 minutes LTG Duration 02/03/21 Five Impairment 6 MWT Manager Market Intelligence Goal (LTG) Pt to ambulate 1000' without rest using 4WW during 6 MWT LTG Duration 02/03/21 - improved to 867' Four Impairment Foot slap Short Term Goal (STG) Pt to regularly wear R AFO to limit foot drop and help normalize gait pattern STG Duration Met Three Impairment Transfers Short Term Goal (STG) Pt to transfer independently from mat<->w/c with no assistive devices STG Duration Met Two Impairment Ankle weakness Manager [employer] Intelligence Goal (LTG) Pt to display 2/5 MMT in R DF, 4/5 MMT in R PF, and 4+/5 MMT in all other bilateral ankle movements LTG Duration 02/03/21 - recent decline One Impairment Activity tolerance Manager [employer] Goal (LTG) Pt to tolerate activity up to 15 minutes without a break LTG Duration 02/03/21 Progress Towards Goals Progress Towards Goals Slow Progress due to Activity Tolerance,Slow Progress due to Medical Issues Assessment Summary Assessment Pt again experiencing some LOB during gait, which matches with his reports of falls at home. Did discuss with pt that he should speak with PCP regarding recent decline. Physical Therapy Plan Frequency and Duration Frequency of Treatment 1x/Week Duration of Treatment 3 months Plan of Care Start Date 11/05/20 Plan of Care End Date 02/03/21 Therapeutic Interventions Therapeutic Interventions Aquatic Therapy,Balance Training,Gait Training,Home Exercise Program,Manual Therapy,Neuromuscular Re- education,Soft Tissue Mobilization,Therapeutic Activities,Therapeutic Exercises Next Visit Focus/Plan Next Note Type Treatment Note Next Visit Plan Continue focus on opposing arm swing during gait, increasing activity tolerance, increasing gait /s an AD, and improving balance
--- NOTE | 2020-12-17 10:24 | PT.OTN ---
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 with return to pre-existing conscious level, subsequent encounter (12/17/20) History of falling (12/17/20) Physical Therapy Treatment Note PT-OP-A Visit Information Start: 09/28/17 15:21 Freq: Status: Active Protocol: Document 12/17/20 09:40 DCW (Rec: 12/17/20 10:24 DCW [id number]) Out-Patient Physical Therapy Visit Information Visit Information Visit Type Treatment Note Visit Start Time 09:40 Visit Stop Time 10:25 Total Visit Minutes 45 Visit Number 11/07 Number of ELECTRICAL TESTS SUPERVISOR Visits 0 Evaluation Information Evaluation Date 07/27/17 PT-OP-B Current Condition Start: 09/28/17 15:21 Freq: Status: Active Protocol: Document 10/12/17 13:45 DCW (Rec: 10/12/17 18:33 DCW [id number]) Current Condition History of Current Condition Onset Date 02/05/17 History of Current Condition See Pt's initial evaluation in Therapy Source Current Functional Impairments (Reported) Functional Limitations- Mobility/Gait Transfers:W/C<->Mat Stand- pivot: Independent PT-OP-C Subjective Start: 09/28/17 15:21 Freq: Status: Active Protocol: Document 12/17/20 09:40 DCW (Rec: 12/17/20 10:24 DCW [id number]) OP-PT Subjective Patient Comments Patient Comments I've been trying to do so much at home, but it just doesn't seem to make a difference. PT-OP-D Balance Start: 10/12/17 18:11 Freq: Status: Active Protocol: Document 11/05/20 09:45 DCW (Rec: 11/05/20 10:20 DCW [id number]) OP-PT Balance Assessment Standing Balance Standing Balance Comments Double leg, Eyes open: 1'01 Balance Tests Donis Balance Test Donis Balance Test Score 27/56 Donis Balance Assessment Evaluation Sitting to Standing Ability Independent w/Hands Unsupported Stance 30 seconds Sitting Unsupported, Feet on Floor Safely- 2 minutes Standing to Sitting Ability Assist, Control w/Hands Transfer Ability Supervision, Verbal Cues Unsupported Stance- Eyes Closed 3 seconds Unsupported Stance- Eyes Open Assist to attain,<15 secs Reaching Forward Standing Safely, 5 inches Pick- Up Object From Floor Supervision Look Behind Shoulder - Standing Supervision w/Turning Turning 360 Degrees Supervision/Verbal Cues Unsupported Stance, Alternating Feet on Assist to Prevent Fall Stair Unsupported Tandem Stance Small Step- 30 seconds Unilateral Leg Stance Lifts Leg/Unable to Hold Total Score Donis Total Score (out of 56 points) 27 Donis Impairment Rating 40 to 59% Impaired (Score 23- 33) Mejia Fall Scale Copyright Permission PT-OP-E Functional Tests Start: 10/12/17 18:11 Freq: Status: Active Protocol: Document 11/05/20 09:45 DCW (Rec: 11/05/20 10:20 DCW [id number]) Functional Tests 6 Minute Walk Test Distance 867' Device Used 4WW PT-OP-G Mobility & Gait Start: 12/23/18 10:02 Freq: Status: Active Protocol: Document 11/05/20 09:45 DCW (Rec: 11/05/20 10:20 DCW [id number]) OP Gait Assessment Gait Gait Assistance Required: Contact Guard Assist Distance (Feet) 180 Assistive Devices Assistive Device None,Gait Belt Gait Deviations General Gait Pattern Antalgic,Ataxic,Decreased Stride Length,Decreased Feet Clearance,Flexed Trunk,Lateral Trunk Lean PT-OP-M Strength Start: 10/12/17 18:11 Freq: Status: Active Protocol: Document 11/05/20 09:45 DCW (Rec: 11/05/20 10:20 DCW [id number]) Hip Strength Hip Manual Muscle Testing Right Flexion (L2) 5 Normal Abduction 4+ Good+ Adduction 5 Normal Left Flexion (L2) 5 Normal Abduction 4+ Good+ Adduction 4+ Good+ Knee Strength Knee Manual Muscle Testing Right Flexion (S2) 4+ Good+ Extension (L3) 4+ Good+ Left Flexion (S2) 5 Normal Extension (L3) 5 Normal Ankle/Foot Strength Ankle and Foot Manual Muscle Testing Right Dorsiflexion (L4) 2 Poor Plantarflexion (S1) 3+ Fair+ Left Dorsiflexion (L4) 4 Good Plantarflexion (S1) 4- Good- PT-OP-Q Treatments Start: 09/28/17 15:21 Freq: Status: Active Protocol: Document 12/17/20 09:40 DCW (Rec: 12/17/20 10:24 DCW [id number]) Gym Equipment Shuttle Recovery Bilateral Heel Raises Resistance 100# Reps/Time x60 Unilateral Squats Resistance 75# Shuttle Recovery Platform Stable Reps/Time x20 each Bilateral Squats Resistance 150# Shuttle Recovery Platform Stable Reps/Time x30 Therapeutic Exercises Other Exercises 1 Other Exercise Name Resisted Sidestepping Resistance Green Equipment Used T-band Gait Training Gait Activity 3 Description Ambulate /s AD Device Used none Level of Assistance CGA Distance/Duration 90' x1, 100' x1 Comments Aide follows with 4WW Neuro Re-Education Treatment Balance Activities 6 Details Ball/cone pick-up, ball toss 5 Details SLS Equipment // bars Comments Min Ax1 4 Details NBOS Surface Blue foam Comments CGA PT-OP-T Assessment and Plan Start: 09/28/17 15:21 Freq: Status: Active Protocol: Document 12/17/20 09:40 DCW (Rec: 12/17/20 10:24 DCW [id number]) Physical Therapy Assessment Impairments Impairments Activity Tolerance,Balance, Functional Activities, Functional Mobility,Gait,ROM, Strength Goals Eight Impairment Unassisted Gait Short Term Goal (STG) Pt to ambulate 300' SBA /s AD STG Duration Met Chcf Goal (LTG) Pt to ambulate 400' SBA /s AD LTG Duration 02/03/21 Seven Impairment Donis Short Term Goal (STG) Pt to score 22/56 on Donis Balance scale STG Duration Met Director Of Strategic Programs Goal (LTG) Pt to score 35/56 on Donis Balance scale LTG Duration 02/03/21 - improved to 27/56 Six Impairment Static Standing Balance Short Term Goal (STG) Pt to stand independently for 2 minutes STG Duration Met [facility] Goal (LTG) Pt to stand independently for 3 minutes LTG Duration 02/03/21 Five Impairment 6 MWT Director Of Strategic Programs Goal (LTG) Pt to ambulate 1000' without rest using 4WW during 6 MWT LTG Duration 02/03/21 - improved to 867' Four Impairment Foot slap Short Term Goal (STG) Pt to regularly wear R AFO to limit foot drop and help normalize gait pattern STG Duration Met Three Impairment Transfers Short Term Goal (STG) Pt to transfer independently from mat<->w/c with no assistive devices STG Duration Met Two Impairment Ankle weakness Director Of Strategic Programs Goal (LTG) Pt to display 2/5 MMT in R DF, 4/5 MMT in R PF, and 4+/5 MMT in all other bilateral ankle movements LTG Duration 02/03/21 - recent decline One Impairment Activity tolerance [facility] Goal (LTG) Pt to tolerate activity up to 15 minutes without a break LTG Duration 02/03/21 Progress Towards Goals Progress Towards Goals Slow Progress due to Activity Tolerance,Slow Progress due to Medical Issues Assessment Summary Assessment Pt continues to struggle more recently, having difficulty with LE strengthening and gait . Physical Therapy Plan Frequency and Duration Frequency of Treatment 1x/Week Duration of Treatment 3 months Plan of Care Start Date 11/05/20 Plan of Care End Date 02/03/21 Therapeutic Interventions Therapeutic Interventions Aquatic Therapy,Balance Training,Gait Training,Home Exercise Program,Manual Therapy,Neuromuscular Re- education,Soft Tissue Mobilization,Therapeutic Activities,Therapeutic Exercises Next Visit Focus/Plan Next Note Type Treatment Note Next Visit Plan Continue focus on opposing arm swing during gait, increasing activity tolerance, increasing gait /s an AD, and improving balance
--- NOTE | 2020-12-24 10:28 | PT.OTN ---
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 with return to pre-existing conscious level, subsequent encounter (12/24/20) History of falling (12/24/20) Physical Therapy Treatment Note PT-OP-A Visit Information Start: 09/28/17 15:21 Freq: Status: Active Protocol: Document 12/24/20 09:45 DCW (Rec: 12/24/20 10:28 DCW [id number]) Out-Patient Physical Therapy Visit Information Visit Information Visit Type Treatment Note Visit Start Time 09:45 Visit Stop Time 10:30 Total Visit Minutes 45 Visit Number 12/07 Number of RAILROAD TRACK MECHANIC Visits 0 Evaluation Information Evaluation Date 07/27/17 PT-OP-B Current Condition Start: 09/28/17 15:21 Freq: Status: Active Protocol: Document 10/12/17 13:45 DCW (Rec: 10/12/17 18:33 DCW [id number]) Current Condition History of Current Condition Onset Date 02/05/17 History of Current Condition See Pt's initial evaluation in Therapy Source Current Functional Impairments (Reported) Functional Limitations- Mobility/Gait Transfers:W/C<->Mat Stand- pivot: Independent PT-OP-C Subjective Start: 09/28/17 15:21 Freq: Status: Active Protocol: Document 12/24/20 09:45 DCW (Rec: 12/24/20 10:28 DCW [id number]) OP-PT Subjective Patient Comments Patient Comments I feel like I am slowly but surely losing my ability to walk. PT-OP-D Balance Start: 10/12/17 18:11 Freq: Status: Active Protocol: Document 11/05/20 09:45 DCW (Rec: 11/05/20 10:20 DCW [id number]) OP-PT Balance Assessment Standing Balance Standing Balance Comments Double leg, Eyes open: 1'01 Balance Tests Donis Balance Test Donis Balance Test Score 27/56 Donis Balance Assessment Evaluation Sitting to Standing Ability Independent w/Hands Unsupported Stance 30 seconds Sitting Unsupported, Feet on Floor Safely- 2 minutes Standing to Sitting Ability Assist, Control w/Hands Transfer Ability Supervision, Verbal Cues Unsupported Stance- Eyes Closed 3 seconds Unsupported Stance- Eyes Open Assist to attain,<15 secs Reaching Forward Standing Safely, 5 inches Pick- Up Object From Floor Supervision Look Behind Shoulder - Standing Supervision w/Turning Turning 360 Degrees Supervision/Verbal Cues Unsupported Stance, Alternating Feet on Assist to Prevent Fall Stair Unsupported Tandem Stance Small Step- 30 seconds Unilateral Leg Stance Lifts Leg/Unable to Hold Total Score Donis Total Score (out of 56 points) 27 Dnois Impairment Rating 40 to 59% Impaired (Score 23- 33) Mejia Fall Scale Copyright Permission PT-OP-E Functional Tests Start: 10/12/17 18:11 Freq: Status: Active Protocol: Document 11/05/20 09:45 DCW (Rec: 11/05/20 10:20 DCW [id number]) Functional Tests 6 Minute Walk Test Distance 867' Device Used 4WW PT-OP-G Mobility & Gait Start: 12/23/18 10:02 Freq: Status: Active Protocol: Document 11/05/20 09:45 DCW (Rec: 11/05/20 10:20 DCW [id number]) OP Gait Assessment Gait Gait Assistance Required: Contact Guard Assist Distance (Feet) 180 Assistive Devices Assistive Device None,Gait Belt Gait Deviations General Gait Pattern Antalgic,Ataxic,Decreased Stride Length,Decreased Feet Clearance,Flexed Trunk,Lateral Trunk Lean PT-OP-M Strength Start: 10/12/17 18:11 Freq: Status: Active Protocol: Document 11/05/20 09:45 DCW (Rec: 11/05/20 10:20 DCW [id number]) Hip Strength Hip Manual Muscle Testing Right Flexion (L2) 5 Normal Abduction 4+ Good+ Adduction 5 Normal Left Flexion (L2) 5 Normal Abduction 4+ Good+ Adduction 4+ Good+ Knee Strength Knee Manual Muscle Testing Right Flexion (S2) 4+ Good+ Extension (L3) 4+ Good+ Left Flexion (S2) 5 Normal Extension (L3) 5 Normal Ankle/Foot Strength Ankle and Foot Manual Muscle Testing Right Dorsiflexion (L4) 2 Poor Plantarflexion (S1) 3+ Fair+ Left Dorsiflexion (L4) 4 Good Plantarflexion (S1) 4- Good- PT-OP-Q Treatments Start: 09/28/17 15:21 Freq: Status: Active Protocol: Document 12/24/20 09:45 DCW (Rec: 12/24/20 10:28 DCW [id number]) Therapeutic Exercises Other Exercises 1 Other Exercise Name Resisted Sidestepping Resistance Green Equipment Used T-band Gait Training Gait Activity 2 Description Amb /c 4WW Device Used 4WW Level of Assistance SBA Distance/Duration 190' Neuro Re-Education Treatment Balance Activities 6 Details Ball/cone pick-up, ball toss 5 Details SLS Equipment // bars Comments Min Ax1 4 Details NBOS Surface Morel foam Comments CGA 3 Details Hurdles Equipment // bars Comments Fwd, Side-stepping PT-OP-T Assessment and Plan Start: 09/28/17 15:21 Freq: Status: Active Protocol: Document 12/24/20 09:45 DCW (Rec: 12/24/20 10:28 DCW [id number]) Physical Therapy Assessment Impairments Impairments Activity Tolerance,Balance, Functional Activities, Functional Mobility,Gait,ROM, Strength Goals Eight Impairment Unassisted Gait Short Term Goal (STG) Pt to ambulate 300' SBA /s AD STG Duration Met Senior Care Goal (LTG) Pt to ambulate 400' SBA /s AD LTG Duration 02/03/21 Seven Impairment Donis Short Term Goal (STG) Pt to score 22/56 on Donis Balance scale STG Duration Met Web Software Engineer Goal (LTG) Pt to score 35/56 on Donis Balance scale LTG Duration 02/03/21 - improved to 27/56 Six Impairment Static Standing Balance Short Term Goal (STG) Pt to stand independently for 2 minutes STG Duration Met Senior Care Goal (LTG) Pt to stand independently for 3 minutes LTG Duration 02/03/21 Five Impairment 6 MWT Web Software Engineer Goal (LTG) Pt to ambulate 1000' without rest using 4WW during 6 MWT LTG Duration 02/03/21 - improved to 867' Four Impairment Foot slap Short Term Goal (STG) Pt to regularly wear R AFO to limit foot drop and help normalize gait pattern STG Duration Met Three Impairment Transfers Short Term Goal (STG) Pt to transfer independently from mat<->w/c with no assistive devices STG Duration Met Two Impairment Ankle weakness Web Software Engineer Goal (LTG) Pt to display 2/5 MMT in R DF, 4/5 MMT in R PF, and 4+/5 MMT in all other bilateral ankle movements LTG Duration 02/03/21 - recent decline One Impairment Activity tolerance Senior Care Goal (LTG) Pt to tolerate activity up to 15 minutes without a break LTG Duration 02/03/21 Progress Towards Goals Progress Towards Goals Slow Progress due to Activity Tolerance,Slow Progress due to Medical Issues Assessment Summary Assessment Pt again having a very difficult time with everything , showing definite decline in mobility and function. Pt has an appointment with his PCP coming next week. Physical Therapy Plan Frequency and Duration Frequency of Treatment 1x/Week Duration of Treatment 3 months Plan of Care Start Date 11/05/20 Plan of Care End Date 02/03/21 Therapeutic Interventions Therapeutic Interventions Aquatic Therapy,Balance Training,Gait Training,Home Exercise Program,Manual Therapy,Neuromuscular Re- education,Soft Tissue Mobilization,Therapeutic Activities,Therapeutic Exercises Next Visit Focus/Plan Next Note Type Treatment Note Next Visit Plan Continue focus on opposing arm swing during gait, increasing activity tolerance, increasing gait /s an AD, and improving balance
--- NOTE | 2021-01-07 10:32 | PT.OTN ---
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 greater than 24 hours with return to pre-existing conscious level, subsequent encounter (01/07/21) History of falling (01/07/21) Physical Therapy Treatment Note PT-OP-A Visit Information Start: 09/28/17 15:21 Freq: Status: Active Protocol: Document 01/07/21 09:45 DCW (Rec: 01/07/21 10:31 DCW [id number]) Out-Patient Physical Therapy Visit Information Visit Information Visit Type Treatment Note Visit Start Time 09:45 Visit Stop Time 10:30 Total Visit Minutes 45 Visit Number 01/07 Number of ROUGHENER Visits 0 Evaluation Information Evaluation Date 07/27/17 PT-OP-B Current Condition Start: 09/28/17 15:21 Freq: Status: Active Protocol: Document 10/12/17 13:45 DCW (Rec: 10/12/17 18:33 DCW [id number]) Current Condition History of Current Condition Onset Date 02/05/17 History of Current Condition See Pt's initial evaluation in Therapy Source Current Functional Impairments (Reported) Functional Limitations- Mobility/Gait Transfers:W/C<->Mat Stand- pivot: Independent PT-OP-C Subjective Start: 09/28/17 15:21 Freq: Status: Active Protocol: Document 01/07/21 09:45 DCW (Rec: 01/07/21 10:31 DCW [id number]) OP-PT Subjective Patient Comments Patient Comments Pt recovering from another recent UTI, really struggling with walking, cognition, and just really struggling with his day-to-day activities. Has had multiple falls, struggling to get up from floor. Pt is very concerned about this decline, and unsure about where to go from here. PT-OP-D Balance Start: 10/12/17 18:11 Freq: Status: Active Protocol: Document 11/05/20 09:45 DCW (Rec: 11/05/20 10:20 DCW [id number]) OP-PT Balance Assessment Standing Balance Standing Balance Comments Double leg, Eyes open: 1'01 Balance Tests Donis Balance Test Donis Balance Test Score 27/56 Donis Balance Assessment Evaluation Sitting to Standing Ability Independent w/Hands Unsupported Stance 30 seconds Sitting Unsupported, Feet on Floor Safely- 2 minutes Standing to Sitting Ability Assist, Control w/Hands Transfer Ability Supervision, Verbal Cues Unsupported Stance- Eyes Closed 3 seconds Unsupported Stance- Eyes Open Assist to attain,<15 secs Reaching Forward Standing Safely, 5 inches Pick- Up Object From Floor Supervision Look Behind Shoulder - Standing Supervision w/Turning Turning 360 Degrees Supervision/Verbal Cues Unsupported Stance, Alternating Feet on Assist to Prevent Fall Stair Unsupported Tandem Stance Small Step- 30 seconds Unilateral Leg Stance Lifts Leg/Unable to Hold Total Score Donis Total Score (out of 56 points) 27 Donis Impairment Rating 40 to 59% Impaired (Score 23- 33) Mejia Fall Scale Copyright Permission PT-OP-E Functional Tests Start: 10/12/17 18:11 Freq: Status: Active Protocol: Document 11/05/20 09:45 DCW (Rec: 11/05/20 10:20 DCW [id number]) Functional Tests 6 Minute Walk Test Distance 867' Device Used 4WW PT-OP-G Mobility & Gait Start: 12/23/18 10:02 Freq: Status: Active Protocol: Document 11/05/20 09:45 DCW (Rec: 11/05/20 10:20 DCW [id number]) OP Gait Assessment Gait Gait Assistance Required: Contact Guard Assist Distance (Feet) 180 Assistive Devices Assistive Device None,Gait Belt Gait Deviations General Gait Pattern Antalgic,Ataxic,Decreased Stride Length,Decreased Feet Clearance,Flexed Trunk,Lateral Trunk Lean PT-OP-M Strength Start: 10/12/17 18:11 Freq: Status: Active Protocol: Document 11/05/20 09:45 DCW (Rec: 11/05/20 10:20 DCW [id number]) Hip Strength Hip Manual Muscle Testing Right Flexion (L2) 5 Normal Abduction 4+ Good+ Adduction 5 Normal Left Flexion (L2) 5 Normal Abduction 4+ Good+ Adduction 4+ Good+ Knee Strength Knee Manual Muscle Testing Right Flexion (S2) 4+ Good+ Extension (L3) 4+ Good+ Left Flexion (S2) 5 Normal Extension (L3) 5 Normal Ankle/Foot Strength Ankle and Foot Manual Muscle Testing Right Dorsiflexion (L4) 2 Poor Plantarflexion (S1) 3+ Fair+ Left Dorsiflexion (L4) 4 Good Plantarflexion (S1) 4- Good- PT-OP-Q Treatments Start: 09/28/17 15:21 Freq: Status: Active Protocol: Document 01/07/21 09:45 DCW (Rec: 01/07/21 10:31 DCW [id number]) Therapeutic Exercises Standing Exercises Standing Marching Standing Exercise Name Marching Side bilateral Resistance 5# Equipment Used // bars Gait Training Gait Activity 2 Description Amb /c 4WW Device Used 4WW Level of Assistance SBA Distance/Duration 80' x1, 70' x1 Neuro Re-Education Treatment Balance Activities 4 Details NBOS Surface Morel foam Comments CGA 3 Details Hurdles Equipment // bars Comments Fwd, Side-stepping Self-Care/Home Management Treatment Education Other Education Discussed pt's recent decline, health problems level of function, and rehab potentials . PT-OP-T Assessment and Plan Start: 09/28/17 15:21 Freq: Status: Active Protocol: Document 01/07/21 09:45 DCW (Rec: 01/07/21 10:31 DCW [id number]) Physical Therapy Assessment Impairments Impairments Activity Tolerance,Balance, Functional Activities, Functional Mobility,Gait,ROM, Strength Goals Eight Impairment Unassisted Gait Short Term Goal (STG) Pt to ambulate 300' SBA /s AD STG Duration Met Group Home Goal (LTG) Pt to ambulate 400' SBA /s AD LTG Duration 02/03/21 Seven Impairment Donis Short Term Goal (STG) Pt to score 22/56 on Donis Balance scale STG Duration Met Inbound Ingredient Logistics Specialist Goal (LTG) Pt to score 35/56 on Donis Balance scale LTG Duration 02/03/21 - improved to 27/56 Six Impairment Static Standing Balance Short Term Goal (STG) Pt to stand independently for 2 minutes STG Duration Met Group Home Goal (LTG) Pt to stand independently for 3 minutes LTG Duration 02/03/21 Five Impairment 6 MWT Group Home Goal (LTG) Pt to ambulate 1000' without rest using 4WW during 6 MWT LTG Duration 02/03/21 - improved to 867' Four Impairment Foot slap Short Term Goal (STG) Pt to regularly wear R AFO to limit foot drop and help normalize gait pattern STG Duration Met Three Impairment Transfers Short Term Goal (STG) Pt to transfer independently from mat<->w/c with no assistive devices STG Duration Met Two Impairment Ankle weakness Inbound Ingredient Logistics Specialist Goal (LTG) Pt to display 2/5 MMT in R DF, 4/5 MMT in R PF, and 4+/5 MMT in all other bilateral ankle movements LTG Duration 02/03/21 - recent decline One Impairment Activity tolerance Inbound Ingredient Logistics Specialist Goal (LTG) Pt to tolerate activity up to 15 minutes without a break LTG Duration 02/03/21 Progress Towards Goals Progress Towards Goals Slow Progress due to Activity Tolerance,Slow Progress due to Medical Issues Assessment Summary Assessment Spent a lot of time today discussing pt's recent decline in function, his other medical problems, and possible improvement. Difficult to determine at this moment if pt has just had a temporary setback, or if this is his new level of function after his decline. Physical Therapy Plan Frequency and Duration Frequency of Treatment 1x/Week Duration of Treatment 3 months Plan of Care Start Date 11/05/20 Plan of Care End Date 02/03/21 Therapeutic Interventions Therapeutic Interventions Aquatic Therapy,Balance Training,Gait Training,Home Exercise Program,Manual Therapy,Neuromuscular Re- education,Soft Tissue Mobilization,Therapeutic Activities,Therapeutic Exercises Next Visit Focus/Plan Next Note Type Treatment Note Next Visit Plan Floor transfers if safe
--- NOTE | 2021-01-14 10:28 | PT.OTN ---
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 greater than 24 hours with return to pre-existing conscious level, subsequent encounter (01/14/21) History of falling (01/14/21) Physical Therapy Treatment Note PT-OP-A Visit Information Start: 09/28/17 15:21 Freq: Status: Active Protocol: Document 01/14/21 09:45 DCW (Rec: 01/14/21 10:28 DCW [id number]) Out-Patient Physical Therapy Visit Information Visit Information Visit Type Treatment Note Visit Start Time 09:45 Visit Stop Time 10:30 Total Visit Minutes 45 Visit Number 02/07 Number of DEMI CHEF Visits 0 Evaluation Information Evaluation Date 07/27/17 PT-OP-B Current Condition Start: 09/28/17 15:21 Freq: Status: Active Protocol: Document 10/12/17 13:45 DCW (Rec: 10/12/17 18:33 DCW [id number]) Current Condition History of Current Condition Onset Date 02/05/17 History of Current Condition See Pt's initial evaluation in Therapy Source Current Functional Impairments (Reported) Functional Limitations- Mobility/Gait Transfers:W/C<->Mat Stand- pivot: Independent PT-OP-C Subjective Start: 09/28/17 15:21 Freq: Status: Active Protocol: Document 01/14/21 09:45 DCW (Rec: 01/14/21 10:28 DCW [id number]) OP-PT Subjective Patient Comments Patient Comments My walking is almost gone. It 's gotten really bad. PT-OP-D Balance Start: 10/12/17 18:11 Freq: Status: Active Protocol: Document 11/05/20 09:45 DCW (Rec: 11/05/20 10:20 DCW [id number]) OP-PT Balance Assessment Standing Balance Standing Balance Comments Double leg, Eyes open: 1'01 Balance Tests Donis Balance Test Donis Balance Test Score 27/56 Donis Balance Assessment Evaluation Sitting to Standing Ability Independent w/Hands Unsupported Stance 30 seconds Sitting Unsupported, Feet on Floor Safely- 2 minutes Standing to Sitting Ability Assist, Control w/Hands Transfer Ability Supervision, Verbal Cues Unsupported Stance- Eyes Closed 3 seconds Unsupported Stance- Eyes Open Assist to attain,<15 secs Reaching Forward Standing Safely, 5 inches Pick- Up Object From Floor Supervision Look Behind Shoulder - Standing Supervision w/Turning Turning 360 Degrees Supervision/Verbal Cues Unsupported Stance, Alternating Feet on Assist to Prevent Fall Stair Unsupported Tandem Stance Small Step- 30 seconds Unilateral Leg Stance Lifts Leg/Unable to Hold Total Score Donis Total Score (out of 56 points) 27 Donis Impairment Rating 40 to 59% Impaired (Score 23- 33) Mejia Fall Scale Copyright Permission PT-OP-E Functional Tests Start: 10/12/17 18:11 Freq: Status: Active Protocol: Document 11/05/20 09:45 DCW (Rec: 11/05/20 10:20 DCW [id number]) Functional Tests 6 Minute Walk Test Distance 867' Device Used 4WW PT-OP-G Mobility & Gait Start: 12/23/18 10:02 Freq: Status: Active Protocol: Document 11/05/20 09:45 DCW (Rec: 11/05/20 10:20 DCW [id number]) OP Gait Assessment Gait Gait Assistance Required: Contact Guard Assist Distance (Feet) 180 Assistive Devices Assistive Device None,Gait Belt Gait Deviations General Gait Pattern Antalgic,Ataxic,Decreased Stride Length,Decreased Feet Clearance,Flexed Trunk,Lateral Trunk Lean PT-OP-M Strength Start: 10/12/17 18:11 Freq: Status: Active Protocol: Document 11/05/20 09:45 DCW (Rec: 11/05/20 10:20 DCW [id number]) Hip Strength Hip Manual Muscle Testing Right Flexion (L2) 5 Normal Abduction 4+ Good+ Adduction 5 Normal Left Flexion (L2) 5 Normal Abduction 4+ Good+ Adduction 4+ Good+ Knee Strength Knee Manual Muscle Testing Right Flexion (S2) 4+ Good+ Extension (L3) 4+ Good+ Left Flexion (S2) 5 Normal Extension (L3) 5 Normal Ankle/Foot Strength Ankle and Foot Manual Muscle Testing Right Dorsiflexion (L4) 2 Poor Plantarflexion (S1) 3+ Fair+ Left Dorsiflexion (L4) 4 Good Plantarflexion (S1) 4- Good- PT-OP-Q Treatments Start: 09/28/17 15:21 Freq: Status: Active Protocol: Document 01/14/21 09:45 DCW (Rec: 01/14/21 10:28 DCW [id number]) Gym Equipment Shuttle Recovery Bilateral Heel Raises Resistance 100# Reps/Time x60 Unilateral Squats Resistance 75# Shuttle Recovery Platform Stable Reps/Time x20 each Bilateral Squats Resistance 150# Shuttle Recovery Platform Stable Reps/Time x30 Gait Training Gait Activity 2 Description Amb /c 4WW Device Used 4WW Level of Assistance SBA Distance/Duration 190' Neuro Re-Education Treatment Balance Activities 6 Details Ball/cone pick-up, ball toss 4 Details NBOS Surface Morel foam Comments CGA PT-OP-T Assessment and Plan Start: 09/28/17 15:21 Freq: Status: Active Protocol: Document 01/14/21 09:45 DCW (Rec: 01/14/21 10:28 DCW [id number]) Physical Therapy Assessment Impairments Impairments Activity Tolerance,Balance, Functional Activities, Functional Mobility,Gait,ROM, Strength Goals Eight Impairment Unassisted Gait Short Term Goal (STG) Pt to ambulate 300' SBA /s AD STG Duration Met Shelter Goal (LTG) Pt to ambulate 400' SBA /s AD LTG Duration 02/03/21 Seven Impairment Donis Short Term Goal (STG) Pt to score 22/56 on Donis Balance scale STG Duration Met Mailmaster Goal (LTG) Pt to score 35/56 on Donis Balance scale LTG Duration 02/03/21 - improved to 27/56 Six Impairment Static Standing Balance Short Term Goal (STG) Pt to stand independently for 2 minutes STG Duration Met Mailmaster Goal (LTG) Pt to stand independently for 3 minutes LTG Duration 02/03/21 Five Impairment 6 MWT Shelter Goal (LTG) Pt to ambulate 1000' without rest using 4WW during 6 MWT LTG Duration 02/03/21 - improved to 867' Four Impairment Foot slap Short Term Goal (STG) Pt to regularly wear R AFO to limit foot drop and help normalize gait pattern STG Duration Met Three Impairment Transfers Short Term Goal (STG) Pt to transfer independently from mat<->w/c with no assistive devices STG Duration Met Two Impairment Ankle weakness Shelter Goal (LTG) Pt to display 2/5 MMT in R DF, 4/5 MMT in R PF, and 4+/5 MMT in all other bilateral ankle movements LTG Duration 02/03/21 - recent decline One Impairment Activity tolerance Shelter Goal (LTG) Pt to tolerate activity up to 15 minutes without a break LTG Duration 02/03/21 Progress Towards Goals Progress Towards Goals Slow Progress due to Activity Tolerance,Slow Progress due to Medical Issues Assessment Summary Assessment Pt continues to decline quite a bit in function. Greatly fatigued, smaller steps today. Required more frequent rest breaks. Difficult to determine any cause, may still be continued effects following recent UTI. Physical Therapy Plan Frequency and Duration Frequency of Treatment 1x/Week Duration of Treatment 3 months Plan of Care Start Date 11/05/20 Plan of Care End Date 02/03/21 Therapeutic Interventions Therapeutic Interventions Aquatic Therapy,Balance Training,Gait Training,Home Exercise Program,Manual Therapy,Neuromuscular Re- education,Soft Tissue Mobilization,Therapeutic Activities,Therapeutic Exercises Next Visit Focus/Plan Next Note Type Treatment Note Next Visit Plan Floor transfers if safe
--- NOTE | 2021-01-28 10:30 | PT.OTN ---
Current Diagnoses Foot drop, right foot (01/28/21) Muscle weakness (generalized) (01/28/21) Unsteadiness on feet (01/28/21) Unspecified abnormalities of gait and mobility (01/28/21) Traumatic subdural hemorrhage with loss of consciousness greater than 24 hours with return to pre-existing conscious level, subsequent encounter (01/28/21) History of falling (01/28/21) Physical Therapy Treatment Note PT-OP-A Visit Information Start: 09/28/17 15:21 Freq: Status: Active Protocol: Document 01/28/21 09:45 DCW (Rec: 01/28/21 10:30 DCW [id number]) Out-Patient Physical Therapy Visit Information Visit Information Visit Type Treatment Note Visit Start Time 09:45 Visit Stop Time 10:30 Total Visit Minutes 45 Visit Number 03/09 Number of SAFETY GLASS INSTALLER Visits 0 Evaluation Information Evaluation Date 07/27/17 PT-OP-B Current Condition Start: 09/28/17 15:21 Freq: Status: Active Protocol: Document 10/12/17 13:45 DCW (Rec: 10/12/17 18:33 DCW [id number]) Current Condition History of Current Condition Onset Date 02/05/17 History of Current Condition See Pt's initial evaluation in Therapy Source Current Functional Impairments (Reported) Functional Limitations- Mobility/Gait Transfers:W/C<->Mat Stand- pivot: Independent PT-OP-C Subjective Start: 09/28/17 15:21 Freq: Status: Active Protocol: Document 01/28/21 09:45 DCW (Rec: 01/28/21 10:30 DCW [id number]) OP-PT Subjective Patient Comments Patient Comments My walking is much worse, my right leg in particular. PT-OP-D Balance Start: 10/12/17 18:11 Freq: Status: Active Protocol: Document 11/05/20 09:45 DCW (Rec: 11/05/20 10:20 DCW [id number]) OP-PT Balance Assessment Standing Balance Standing Balance Comments Double leg, Eyes open: 1'01 Balance Tests Donis Balance Test Donis Balance Test Score 27/56 Donis Balance Assessment Evaluation Sitting to Standing Ability Independent w/Hands Unsupported Stance 30 seconds Sitting Unsupported, Feet on Floor Safely- 2 minutes Standing to Sitting Ability Assist, Control w/Hands Transfer Ability Supervision, Verbal Cues Unsupported Stance- Eyes Closed 3 seconds Unsupported Stance- Eyes Open Assist to attain,<15 secs Reaching Forward Standing Safely, 5 inches Pick- Up Object From Floor Supervision Look Behind Shoulder - Standing Supervision w/Turning Turning 360 Degrees Supervision/Verbal Cues Unsupported Stance, Alternating Feet on Assist to Prevent Fall Stair Unsupported Tandem Stance Small Step- 30 seconds Unilateral Leg Stance Lifts Leg/Unable to Hold Total Score Donis Total Score (out of 56 points) 27 Donis Impairment Rating 40 to 59% Impaired (Score 23- 33) Mejia Fall Scale Copyright Permission PT-OP-E Functional Tests Start: 10/12/17 18:11 Freq: Status: Active Protocol: Document 11/05/20 09:45 DCW (Rec: 11/05/20 10:20 DCW [id number]) Functional Tests 6 Minute Walk Test Distance 867' Device Used 4WW PT-OP-G Mobility & Gait Start: 12/23/18 10:02 Freq: Status: Active Protocol: Document 11/05/20 09:45 DCW (Rec: 11/05/20 10:20 DCW [id number]) OP Gait Assessment Gait Gait Assistance Required: Contact Guard Assist Distance (Feet) 180 Assistive Devices Assistive Device None,Gait Belt Gait Deviations General Gait Pattern Antalgic,Ataxic,Decreased Stride Length,Decreased Feet Clearance,Flexed Trunk,Lateral Trunk Lean PT-OP-M Strength Start: 10/12/17 18:11 Freq: Status: Active Protocol: Document 11/05/20 09:45 DCW (Rec: 11/05/20 10:20 DCW [id number]) Hip Strength Hip Manual Muscle Testing Right Flexion (L2) 5 Normal Abduction 4+ Good+ Adduction 5 Normal Left Flexion (L2) 5 Normal Abduction 4+ Good+ Adduction 4+ Good+ Knee Strength Knee Manual Muscle Testing Right Flexion (S2) 4+ Good+ Extension (L3) 4+ Good+ Left Flexion (S2) 5 Normal Extension (L3) 5 Normal Ankle/Foot Strength Ankle and Foot Manual Muscle Testing Right Dorsiflexion (L4) 2 Poor Plantarflexion (S1) 3+ Fair+ Left Dorsiflexion (L4) 4 Good Plantarflexion (S1) 4- Good- PT-OP-Q Treatments Start: 09/28/17 15:21 Freq: Status: Active Protocol: Document 01/28/21 09:45 DCW (Rec: 01/28/21 10:30 DCW [id number]) Therapeutic Exercises Sitting Exercises LAQ Sitting Exercise Name LAQ Side bilateral Resistance 5# Equipment Used ankle weights Marching Sitting Exercise Name Seated marching /c opposite arm swing Side bilateral Resistance 5# ankles, 4# wrists Gait Training Gait Activity 2 Description Amb /c 4WW Device Used 4WW Level of Assistance SBA Distance/Duration 190' Neuro Re-Education Treatment Balance Activities 6 Details Ball/cone pick-up, ball toss 4 Details NBOS Surface Morel foam Comments CGA 3 Details Hurdles Equipment // bars Comments Fwd, Side-stepping PT-OP-T Assessment and Plan Start: 09/28/17 15:21 Freq: Status: Active Protocol: Document 01/28/21 09:45 DCW (Rec: 01/28/21 10:30 DCW [id number]) Physical Therapy Assessment Impairments Impairments Activity Tolerance,Balance, Functional Activities, Functional Mobility,Gait,ROM, Strength Goals Eight Impairment Unassisted Gait Short Term Goal (STG) Pt to ambulate 300' SBA /s AD STG Duration Met Chronometer Adjuster Goal (LTG) Pt to ambulate 400' SBA /s AD LTG Duration 02/03/21 Seven Impairment Donis Short Term Goal (STG) Pt to score 22/56 on Donis Balance scale STG Duration Met Chronometer Adjuster Goal (LTG) Pt to score 35/56 on Donis Balance scale LTG Duration 02/03/21 - improved to 27/56 Six Impairment Static Standing Balance Short Term Goal (STG) Pt to stand independently for 2 minutes STG Duration Met Chronometer Adjuster Goal (LTG) Pt to stand independently for 3 minutes LTG Duration 02/03/21 Five Impairment 6 MWT Chronometer Adjuster Goal (LTG) Pt to ambulate 1000' without rest using 4WW during 6 MWT LTG Duration 02/03/21 - improved to 867' Four Impairment Foot slap Short Term Goal (STG) Pt to regularly wear R AFO to limit foot drop and help normalize gait pattern STG Duration Met Three Impairment Transfers Short Term Goal (STG) Pt to transfer independently from mat<->w/c with no assistive devices STG Duration Met Two Impairment Ankle weakness Chronometer Adjuster Goal (LTG) Pt to display 2/5 MMT in R DF, 4/5 MMT in R PF, and 4+/5 MMT in all other bilateral ankle movements LTG Duration 02/03/21 - recent decline One Impairment Activity tolerance Snf Goal (LTG) Pt to tolerate activity up to 15 minutes without a break LTG Duration 02/03/21 Progress Towards Goals Progress Towards Goals Slow Progress due to Activity Tolerance,Slow Progress due to Medical Issues Assessment Summary Assessment Pt has declined greatly over the last 4-5 weeks, severely limited with strength, gait, and balance. Being observed by PCP, scheduled an CT scan for later today. Physical Therapy Plan Frequency and Duration Frequency of Treatment 1x/Week Duration of Treatment 3 months Plan of Care Start Date 11/05/20 Plan of Care End Date 02/03/21 Therapeutic Interventions Therapeutic Interventions Aquatic Therapy,Balance Training,Gait Training,Home Exercise Program,Manual Therapy,Neuromuscular Re- education,Soft Tissue Mobilization,Therapeutic Activities,Therapeutic Exercises Next Visit Focus/Plan Next Note Type Treatment Note Next Visit Plan Floor transfers if safe
--- NOTE | 2021-01-28 10:40 | PT.OPPN ---
Current Diagnoses Foot drop, right foot (01/28/21) Muscle weakness (generalized) (01/28/21) Unsteadiness on feet (01/28/21) Unspecified abnormalities of gait and mobility (01/28/21) Traumatic subdural hemorrhage with loss of consciousness greater than 24 hours with return to pre-existing conscious level, subsequent encounter (01/28/21) History of falling (01/28/21) Physical Therapy Progress Note PT-OP-A Visit Information Start: 09/28/17 15:21 Freq: Status: Active Protocol: Document 01/28/21 09:45 DCW (Rec: 01/28/21 10:30 DCW [id number]) Out-Patient Physical Therapy Visit Information Visit Information Visit Type Treatment Note Visit Start Time 09:45 Visit Stop Time 10:30 Total Visit Minutes 45 Visit Number 03/09 Number of DIRECTOR [employer]AIL [employer] DEVELOPMENT Visits 0 Evaluation Information Evaluation Date 07/27/17 PT-OP-B Current Condition Start: 09/28/17 15:21 Freq: Status: Active Protocol: Document 10/12/17 13:45 DCW (Rec: 10/12/17 18:33 DCW [id number]) Current Condition History of Current Condition Onset Date 02/05/17 History of Current Condition See Pt's initial evaluation in Therapy Source Current Functional Impairments (Reported) Functional Limitations- Mobility/Gait Transfers:W/C<->Mat Stand- pivot: Independent PT-OP-C Subjective Start: 09/28/17 15:21 Freq: Status: Active Protocol: Document 01/28/21 09:45 DCW (Rec: 01/28/21 10:30 DCW [id number]) OP-PT Subjective Patient Comments Patient Comments My walking is much worse, my right leg in particular. PT-OP-D Balance Start: 10/12/17 18:11 Freq: Status: Active Protocol: Document 11/05/20 09:45 DCW (Rec: 11/05/20 10:20 DCW [id number]) OP-PT Balance Assessment Standing Balance Standing Balance Comments Double leg, Eyes open: 1'01 Balance Tests Donis Balance Test Donis Balance Test Score 27/56 Donis Balance Assessment Evaluation Sitting to Standing Ability Independent w/Hands Unsupported Stance 30 seconds Sitting Unsupported, Feet on Floor Safely- 2 minutes Standing to Sitting Ability Assist, Control w/Hands Transfer Ability Supervision, Verbal Cues Unsupported Stance- Eyes Closed 3 seconds Unsupported Stance- Eyes Open Assist to attain,<15 secs Reaching Forward Standing Safely, 5 inches Pick- Up Object From Floor Supervision Look Behind Shoulder - Standing Supervision w/Turning Turning 360 Degrees Supervision/Verbal Cues Unsupported Stance, Alternating Feet on Assist to Prevent Fall Stair Unsupported Tandem Stance Small Step- 30 seconds Unilateral Leg Stance Lifts Leg/Unable to Hold Total Score Donis Total Score (out of 56 points) 27 Donis Impairment Rating 40 to 59% Impaired (Score 23- 33) Mejia Fall Scale Copyright Permission Roberto KELLY, Roberto RM, Mark SJ. Development of a scale to identify the fall- prone patient. Can J Aging 1989;8;366-7. Catrachita Mejia (2009). Preventing patient falls. (2nd ed). [place]: Marquis. PT-OP-E Functional Tests Start: 10/12/17 18:11 Freq: Status: Active Protocol: Document 11/05/20 09:45 DCW (Rec: 11/05/20 10:20 DCW [id number]) Functional Tests 6 Minute Walk Test Distance 867' Device Used 4WW PT-OP-G Mobility & Gait Start: 12/23/18 10:02 Freq: Status: Active Protocol: Document 11/05/20 09:45 DCW (Rec: 11/05/20 10:20 DCW [id number]) OP Gait Assessment Gait Gait Assistance Required: Contact Guard Assist Distance (Feet) 180 Assistive Devices Assistive Device None,Gait Belt Gait Deviations General Gait Pattern Antalgic,Ataxic,Decreased Stride Length,Decreased Feet Clearance,Flexed Trunk,Lateral Trunk Lean PT-OP-M Strength Start: 10/12/17 18:11 Freq: Status: Active Protocol: Document 11/05/20 09:45 DCW (Rec: 11/05/20 10:20 DCW [id number]) Hip Strength Hip Manual Muscle Testing Right Flexion (L2) 5 Normal Abduction 4+ Good+ Adduction 5 Normal Left Flexion (L2) 5 Normal Abduction 4+ Good+ Adduction 4+ Good+ Knee Strength Knee Manual Muscle Testing Right Flexion (S2) 4+ Good+ Extension (L3) 4+ Good+ Left Flexion (S2) 5 Normal Extension (L3) 5 Normal Ankle/Foot Strength Ankle and Foot Manual Muscle Testing Right Dorsiflexion (L4) 2 Poor Plantarflexion (S1) 3+ Fair+ Left Dorsiflexion (L4) 4 Good Plantarflexion (S1) 4- Good- PT-OP-T Assessment and Plan Start: 09/28/17 15:21 Freq: Status: Active Protocol: Document 01/28/21 09:45 DCW (Rec: 01/28/21 10:30 DCW [id number]) Physical Therapy Assessment Impairments Impairments Activity Tolerance,Balance, Functional Activities, Functional Mobility,Gait,ROM, Strength Goals Eight Impairment Unassisted Gait Short Term Goal (STG) Pt to ambulate 300' SBA /s AD STG Duration Met Hydraulic Rubbish Compactor Mechanic Goal (LTG) Pt to ambulate 400' SBA /s AD LTG Duration 02/03/21 Seven Impairment Donis Short Term Goal (STG) Pt to score 22/56 on Donis Balance scale STG Duration Met Hydraulic Rubbish Compactor Mechanic Goal (LTG) Pt to score 35/56 on Donis Balance scale LTG Duration 02/03/21 - improved to 27/56 Six Impairment Static Standing Balance Short Term Goal (STG) Pt to stand independently for 2 minutes STG Duration Met Hydraulic Rubbish Compactor Mechanic Goal (LTG) Pt to stand independently for 3 minutes LTG Duration 02/03/21 Five Impairment 6 MWT Hydraulic Rubbish Compactor Mechanic Goal (LTG) Pt to ambulate 1000' without rest using 4WW during 6 MWT LTG Duration 02/03/21 - improved to 867' Four Impairment Foot slap Short Term Goal (STG) Pt to regularly wear R AFO to limit foot drop and help normalize gait pattern STG Duration Met Three Impairment Transfers Short Term Goal (STG) Pt to transfer independently from mat<->w/c with no assistive devices STG Duration Met Two Impairment Ankle weakness Hydraulic Rubbish Compactor Mechanic Goal (LTG) Pt to display 2/5 MMT in R DF, 4/5 MMT in R PF, and 4+/5 MMT in all other bilateral ankle movements LTG Duration 02/03/21 - recent decline One Impairment Activity tolerance Hydraulic Rubbish Compactor Mechanic Goal (LTG) Pt to tolerate activity up to 15 minutes without a break LTG Duration 02/03/21 Progress Towards Goals Progress Towards Goals Slow Progress due to Activity Tolerance,Slow Progress due to Medical Issues Assessment Summary Assessment Pt has declined greatly over the last 4-5 weeks, severely limited with strength, gait, and balance. Being observed by PCP, scheduled an CT scan for later today. Physical Therapy Plan Frequency and Duration Frequency of Treatment 1x/Week Duration of Treatment 3 months Plan of Care Start Date 11/05/20 Plan of Care End Date 02/03/21 Therapeutic Interventions Therapeutic Interventions Aquatic Therapy,Balance Training,Gait Training,Home Exercise Program,Manual Therapy,Neuromuscular Re- education,Soft Tissue Mobilization,Therapeutic Activities,Therapeutic Exercises Next Visit Focus/Plan Next Note Type Treatment Note Next Visit Plan Floor transfers if safe
--- NOTE | 2021-02-04 11:42 | PT.OTN ---
Current Diagnoses Foot drop, right foot (02/04/21) Muscle weakness (generalized) (02/04/21) Unsteadiness on feet (02/04/21) Unspecified abnormalities of gait and mobility (02/04/21) Traumatic subdural hemorrhage with loss of consciousness greater than 24 hours with return to pre-existing conscious level, subsequent encounter (02/04/21) History of falling (02/04/21) Physical Therapy Treatment Note PT-OP-A Visit Information Start: 09/28/17 15:21 Freq: Status: Active Protocol: Document 02/04/21 09:45 DCW (Rec: 02/04/21 10:30 DCW [id number]) Out-Patient Physical Therapy Visit Information Visit Information Visit Type Treatment Note Visit Start Time 09:45 Visit Stop Time 10:30 Total Visit Minutes 45 Visit Number 06/09 Number of PIG FARM MANAGER Visits 0 Evaluation Information Evaluation Date 07/27/17 PT-OP-B Current Condition Start: 09/28/17 15:21 Freq: Status: Active Protocol: Document 10/12/17 13:45 DCW (Rec: 10/12/17 18:33 DCW [id number]) Current Condition History of Current Condition Onset Date 02/05/17 History of Current Condition See Pt's initial evaluation in Therapy Source Current Functional Impairments (Reported) Functional Limitations- Mobility/Gait Transfers:W/C<->Mat Stand- pivot: Independent PT-OP-C Subjective Start: 09/28/17 15:21 Freq: Status: Active Protocol: Document 02/04/21 09:45 DCW (Rec: 02/04/21 10:30 DCW [id number]) OP-PT Subjective Patient Comments Patient Comments Pt reports ongoing UTI issues, yesterday was a really bad day, blood in his urine, increased confusion, started medication, feeling a bit better today, PT-OP-D Balance Start: 10/12/17 18:11 Freq: Status: Active Protocol: Document 02/04/21 09:45 DCW (Rec: 02/04/21 11:42 DCW [id number]) OP-PT Balance Assessment Standing Balance Standing Balance Comments Double leg, Eyes open: 14 Mejia Fall Scale Copyright Permission PT-OP-E Functional Tests Start: 10/12/17 18:11 Freq: Status: Active Protocol: Document 02/04/21 09:45 DCW (Rec: 02/04/21 11:42 DCW [id number]) Functional Tests 6 Minute Walk Test Distance 60' Device Used 4WW Comments Stopped at 26 PT-OP-G Mobility & Gait Start: 12/23/18 10:02 Freq: Status: Active Protocol: Document 02/04/21 09:45 DCW (Rec: 02/04/21 11:42 DCW [id number]) OP Gait Assessment Gait Gait Assistance Required: Contact Guard Assist Distance (Feet) 60 Assistive Devices Assistive Device Gait Belt,4 Wheeled Walker Gait Deviations General Gait Pattern Antalgic,Ataxic,Decreased Stride Length,Decreased Feet Clearance,Flexed Trunk,Lateral Trunk Lean,Wide Based Gait PT-OP-M Strength Start: 10/12/17 18:11 Freq: Status: Active Protocol: Document 11/05/20 09:45 DCW (Rec: 11/05/20 10:20 DCW [id number]) Hip Strength Hip Manual Muscle Testing Right Flexion (L2) 5 Normal Abduction 4+ Good+ Adduction 5 Normal Left Flexion (L2) 5 Normal Abduction 4+ Good+ Adduction 4+ Good+ Knee Strength Knee Manual Muscle Testing Right Flexion (S2) 4+ Good+ Extension (L3) 4+ Good+ Left Flexion (S2) 5 Normal Extension (L3) 5 Normal Ankle/Foot Strength Ankle and Foot Manual Muscle Testing Right Dorsiflexion (L4) 2 Poor Plantarflexion (S1) 3+ Fair+ Left Dorsiflexion (L4) 4 Good Plantarflexion (S1) 4- Good- PT-OP-Q Treatments Start: 09/28/17 15:21 Freq: Status: Active Protocol: Document 02/04/21 09:45 DCW (Rec: 02/04/21 10:30 DCW [id number]) Therapeutic Exercises Sitting Exercises Hip Abd Sitting Exercise Name Hip Abduction Side bilateral Resistance Lv 2 Equipment Used T-band HS Curls Sitting Exercise Name HS Curls Side bilateral Resistance Lv 2 Equipment Used T-band LAQ Sitting Exercise Name LAQ Side bilateral Resistance 5# Equipment Used ankle weights Marching Sitting Exercise Name Seated marching /c opposite arm swing Side bilateral Resistance 5# ankles, 4# wrists Standing Exercises Hip Abduction Standing Exercise Name Abduction Side bilateral Equipment Used // bars Reps/Minutes x20 Hip Extension Standing Exercise Name Extension Side bilateral Equipment Used // bars Hamstring curls Standing Exercise Name HS curls at rail Side bilateral Resistance 10# Equipment Used // bars Reps/Minutes x20 Gait Training Gait Activity 2 Description Amb /c 4WW Device Used 4WW Level of Assistance SBA Distance/Duration 190' Neuro Re-Education Treatment Balance Activities 6 Details Ball/cone pick-up, ball toss 3 Details Hurdles Equipment // bars Comments Fwd, Side-stepping PT-OP-T Assessment and Plan Start: 09/28/17 15:21 Freq: Status: Active Protocol: Document 02/04/21 09:45 DCW (Rec: 02/04/21 10:30 DCW [id number]) Physical Therapy Assessment Impairments Impairments Activity Tolerance,Balance, Functional Activities, Functional Mobility,Gait,ROM, Strength Goals Eight Impairment Unassisted Gait Short Term Goal (STG) Pt to ambulate 300' SBA /s AD STG Duration Met Nursing Home Goal (LTG) Pt to ambulate 400' SBA /s AD LTG Duration 02/03/21 Seven Impairment Donis Short Term Goal (STG) Pt to score 22/56 on Donis Balance scale STG Duration Met Nursing Home Goal (LTG) Pt to score 35/56 on Donis Balance scale LTG Duration 02/03/21 - improved to 27/56 Six Impairment Static Standing Balance Short Term Goal (STG) Pt to stand independently for 2 minutes STG Duration Met Nursing Home Goal (LTG) Pt to stand independently for 3 minutes LTG Duration 02/03/21 Five Impairment 6 MWT Nursing Home Goal (LTG) Pt to ambulate 1000' without rest using 4WW during 6 MWT LTG Duration 02/03/21 - improved to 867' Four Impairment Foot slap Short Term Goal (STG) Pt to regularly wear R AFO to limit foot drop and help normalize gait pattern STG Duration Met Three Impairment Transfers Short Term Goal (STG) Pt to transfer independently from mat<->w/c with no assistive devices STG Duration Met Two Impairment Ankle weakness Nursing Home Goal (LTG) Pt to display 2/5 MMT in R DF, 4/5 MMT in R PF, and 4+/5 MMT in all other bilateral ankle movements LTG Duration 02/03/21 - recent decline One Impairment Activity tolerance Wool Hat Hydraulicker Goal (LTG) Pt to tolerate activity up to 15 minutes without a break LTG Duration 02/03/21 Progress Towards Goals Progress Towards Goals Slow Progress due to Activity Tolerance,Slow Progress due to Medical Issues Assessment Summary Assessment Pt continues to display health -related functional decline in all areas, significantly worse-off vs prior reassessment. Pt response to future therapy is likely entirely dependent on management of ongoing health issues and recovery from frequent UTI. Physical Therapy Plan Frequency and Duration Frequency of Treatment 1x/Week Duration of Treatment 3 months Plan of Care Start Date 02/04/21 Plan of Care End Date 05/06/21 Therapeutic Interventions Therapeutic Interventions Aquatic Therapy,Balance Training,Gait Training,Home Exercise Program,Manual Therapy,Neuromuscular Re- education,Soft Tissue Mobilization,Therapeutic Activities,Therapeutic Exercises Next Visit Focus/Plan Next Note Type Treatment Note Next Visit Plan Floor transfers if safe
--- NOTE | 2021-02-04 11:42 | PT.OPPOC ---
Physical, Occupational & Speech Therapy At [facility] Current Diagnoses Foot drop, right foot (02/04/21) Muscle weakness (generalized) (02/04/21) Unsteadiness on feet (02/04/21) Unspecified abnormalities of gait and mobility (02/04/21) Traumatic subdural hemorrhage with loss of consciousness greater than 24 hours with return to pre-existing conscious level, subsequent encounter (02/04/21) History of falling (02/04/21) Visit Care Team Role Provider Type Elver Eubanks MD Attending Provider Physician Family Provider Primary Care Provider Specialty: Internal Medicine Address: [address] [place] [address], [facility] Email: [email or web address] Plan Of Care PT-OP-T Assessment and Plan Start: 09/28/17 15:21 Freq: Status: Active Protocol: Document 02/04/21 09:45 DCW (Rec: 02/04/21 10:30 DCW [id number]) Physical Therapy Assessment Impairments Impairments Activity Tolerance,Balance, Functional Activities, Functional Mobility,Gait,ROM, Strength Goals Eight Impairment Unassisted Gait Short Term Goal (STG) Pt to ambulate 300' SBA /s AD STG Duration Met Residential Goal (LTG) Pt to ambulate 400' SBA /s AD LTG Duration 02/03/21 Seven Impairment Donis Short Term Goal (STG) Pt to score 22/56 on Donis Balance scale STG Duration Met Residential Goal (LTG) Pt to score 35/56 on Donis Balance scale LTG Duration 02/03/21 - improved to 27/56 Six Impairment Static Standing Balance Short Term Goal (STG) Pt to stand independently for 2 minutes STG Duration Met Residential Goal (LTG) Pt to stand independently for 3 minutes LTG Duration 02/03/21 Five Impairment 6 MWT Blade Grinder Goal (LTG) Pt to ambulate 1000' without rest using 4WW during 6 MWT LTG Duration 02/03/21 - improved to 867' Four Impairment Foot slap Short Term Goal (STG) Pt to regularly wear R AFO to limit foot drop and help normalize gait pattern STG Duration Met Three Impairment Transfers Short Term Goal (STG) Pt to transfer independently from mat<->w/c with no assistive devices STG Duration Met Two Impairment Ankle weakness Blade Grinder Goal (LTG) Pt to display 2/5 MMT in R DF, 4/5 MMT in R PF, and 4+/5 MMT in all other bilateral ankle movements LTG Duration 02/03/21 - recent decline One Impairment Activity tolerance Blade Grinder Goal (LTG) Pt to tolerate activity up to 15 minutes without a break LTG Duration 02/03/21 Progress Towards Goals Progress Towards Goals Slow Progress due to Activity Tolerance,Slow Progress due to Medical Issues Assessment Summary Assessment Pt continues to display health -related functional decline in all areas, significantly worse-off vs prior reassessment. Pt response to future therapy is likely entirely dependent on management of ongoing health issues and recovery from frequent UTI. Physical Therapy Plan Frequency and Duration Frequency of Treatment 1x/Week Duration of Treatment 3 months Plan of Care Start Date 02/04/21 Plan of Care End Date 05/06/21 Therapeutic Interventions Therapeutic Interventions Aquatic Therapy,Balance Training,Gait Training,Home Exercise Program,Manual Therapy,Neuromuscular Re- education,Soft Tissue Mobilization,Therapeutic Activities,Therapeutic Exercises Next Visit Focus/Plan Next Note Type Treatment Note Next Visit Plan Floor transfers if safe Plan of Care Dates Plan of Care Start Date 02/04/21 Plan of Care End Date 05/06/21 Electronically Signed by: Jose Martin Freitas, PT 02/04/21 [id number] Please Sign and Return: I have reviewed this Plan of Care and certify that the skilled therapy services above are required to meet the patient?s needs. Physician Signature Date Printed Name and Credentials Clinical Instructor Signature Printed Name and Credentials
--- NOTE | 2021-02-11 10:33 | PT.OTN ---
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 with return to pre-existing conscious level, subsequent encounter (02/11/21) History of falling (02/11/21) Physical Therapy Treatment Note PT-OP-A Visit Information Start: 09/28/17 15:21 Freq: Status: Active Protocol: Document 02/11/21 09:45 DCW (Rec: 02/11/21 10:33 DCW [id number]) Out-Patient Physical Therapy Visit Information Visit Information Visit Type Treatment Note Visit Start Time 09:45 Visit Stop Time 10:30 Total Visit Minutes 45 Visit Number 2/ Number of PRESSURE VESSEL INSPECTOR Visits 0 Evaluation Information Evaluation Date 07/27/17 PT-OP-B Current Condition Start: 09/28/17 15:21 Freq: Status: Active Protocol: Document 10/12/17 13:45 DCW (Rec: 10/12/17 18:33 DCW [id number]) Current Condition History of Current Condition Onset Date 02/05/17 History of Current Condition See Pt's initial evaluation in Therapy Source Current Functional Impairments (Reported) Functional Limitations- Mobility/Gait Transfers:W/C<->Mat Stand- pivot: Independent PT-OP-C Subjective Start: 09/28/17 15:21 Freq: Status: Active Protocol: Document 02/11/21 09:45 DCW (Rec: 02/11/21 10:33 DCW [id number]) OP-PT Subjective Patient Comments Patient Comments Pt has his urology appointment coming up later this week, notes he has enough problems now that I have his full attention. Arrives in a wheelchair today, reports that he was told he shouldn't be walking right now, but I think I can do everything else . PT-OP-D Balance Start: 10/12/17 18:11 Freq: Status: Active Protocol: Document 02/04/21 09:45 DCW (Rec: 02/04/21 11:42 DCW [id number]) OP-PT Balance Assessment Standing Balance Standing Balance Comments Double leg, Eyes open: 14 Mejia Fall Scale Copyright Permission PT-OP-E Functional Tests Start: 10/12/17 18:11 Freq: Status: Active Protocol: Document 02/04/21 09:45 DCW (Rec: 02/04/21 11:42 DCW [id number]) Functional Tests 6 Minute Walk Test Distance 60' Device Used 4WW Comments Stopped at 26 PT-OP-G Mobility & Gait Start: 12/23/18 10:02 Freq: Status: Active Protocol: Document 02/04/21 09:45 DCW (Rec: 02/04/21 11:42 DCW [id number]) OP Gait Assessment Gait Gait Assistance Required: Contact Guard Assist Distance (Feet) 60 Assistive Devices Assistive Device Gait Belt,4 Wheeled Walker Gait Deviations General Gait Pattern Antalgic,Ataxic,Decreased Stride Length,Decreased Feet Clearance,Flexed Trunk,Lateral Trunk Lean,Wide Based Gait PT-OP-M Strength Start: 10/12/17 18:11 Freq: Status: Active Protocol: Document 11/05/20 09:45 DCW (Rec: 11/05/20 10:20 DCW [id number]) Hip Strength Hip Manual Muscle Testing Right Flexion (L2) 5 Normal Abduction 4+ Good+ Adduction 5 Normal Left Flexion (L2) 5 Normal Abduction 4+ Good+ Adduction 4+ Good+ Knee Strength Knee Manual Muscle Testing Right Flexion (S2) 4+ Good+ Extension (L3) 4+ Good+ Left Flexion (S2) 5 Normal Extension (L3) 5 Normal Ankle/Foot Strength Ankle and Foot Manual Muscle Testing Right Dorsiflexion (L4) 2 Poor Plantarflexion (S1) 3+ Fair+ Left Dorsiflexion (L4) 4 Good Plantarflexion (S1) 4- Good- PT-OP-Q Treatments Start: 09/28/17 15:21 Freq: Status: Active Protocol: Document 02/11/21 09:45 DCW (Rec: 02/11/21 10:33 DCW [id number]) Gym Equipment Shuttle Recovery Bilateral Heel Raises Resistance 100# Reps/Time x60 Unilateral Squats Resistance 62# Shuttle Recovery Platform Stable Reps/Time x20 each Bilateral Squats Resistance 125# Shuttle Recovery Platform Stable Reps/Time x30 Therapeutic Exercises Sitting Exercises Hip Abd Sitting Exercise Name Hip Abduction Side bilateral Resistance Lv 3 Equipment Used T-band HS Curls Sitting Exercise Name HS Curls Side bilateral Resistance Lv 3 Equipment Used T-band LAQ Sitting Exercise Name LAQ Side bilateral Resistance 5# Equipment Used ankle weights Marching Sitting Exercise Name Seated marching Side bilateral Resistance 5# ankles Neuro Re-Education Treatment Balance Activities 6 Details Ball/cone pick-up, ball toss PT-OP-T Assessment and Plan Start: 09/28/17 15:21 Freq: Status: Active Protocol: Document 02/11/21 09:45 DCW (Rec: 02/11/21 10:33 DCW [id number]) Physical Therapy Assessment Impairments Impairments Activity Tolerance,Balance, Functional Activities, Functional Mobility,Gait,ROM, Strength Goals Eight Impairment Unassisted Gait Short Term Goal (STG) Pt to ambulate 300' SBA /s AD STG Duration Met Panel Coverer Goal (LTG) Pt to ambulate 400' SBA /s AD LTG Duration 05/06/21 Seven Impairment Donis Short Term Goal (STG) Pt to score 22/56 on Donis Balance scale STG Duration Met Panel Coverer Goal (LTG) Pt to score 35/56 on Donis Balance scale LTG Duration 05/06/21 Six Impairment Static Standing Balance Short Term Goal (STG) Pt to stand independently for 2 minutes STG Duration Met Half-Way Goal (LTG) Pt to stand independently for 3 minutes LTG Duration 06/06/20 Five Impairment 6 MWT Panel Coverer Goal (LTG) Pt to ambulate 1000' without rest using 4WW during 6 MWT LTG Duration 05/06/21 - Recent decline Four Impairment Foot slap Short Term Goal (STG) Pt to regularly wear R AFO to limit foot drop and help normalize gait pattern STG Duration Met Three Impairment Transfers Short Term Goal (STG) Pt to transfer independently from mat<->w/c with no assistive devices STG Duration Met Two Impairment Ankle weakness Half-Way Goal (LTG) Pt to display 2/5 MMT in R DF, 4/5 MMT in R PF, and 4+/5 MMT in all other bilateral ankle movements LTG Duration 05/06/21 - recent decline One Impairment Activity tolerance Half-Way Goal (LTG) Pt to tolerate activity up to 15 minutes without a break LTG Duration 05/06/21 Progress Towards Goals Progress Towards Goals Slow Progress due to Activity Tolerance,Slow Progress due to Medical Issues Assessment Summary Assessment Pt struggling even more today with weakness, imbalance, and fatigue. Hopeful that his upcoming follow-up with his urologist will shed light on any potential underlying issues. Physical Therapy Plan Frequency and Duration Frequency of Treatment 1x/Week Duration of Treatment 3 months Plan of Care Start Date 02/04/21 Plan of Care End Date 05/06/21 Therapeutic Interventions Therapeutic Interventions Aquatic Therapy,Balance Training,Gait Training,Home Exercise Program,Manual Therapy,Neuromuscular Re- education,Soft Tissue Mobilization,Therapeutic Activities,Therapeutic Exercises Next Visit Focus/Plan Next Note Type Treatment Note Next Visit Plan Floor transfers if safe
--- NOTE | 2021-02-25 10:32 | PT.OTN ---
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 with return to pre-existing conscious level, subsequent encounter (02/25/21) History of falling (02/25/21) Physical Therapy Treatment Note PT-OP-A Visit Information Start: 09/28/17 15:21 Freq: Status: Active Protocol: Document 02/25/21 09:45 DCW (Rec: 02/25/21 10:32 DCW [id number]) Out-Patient Physical Therapy Visit Information Visit Information Visit Type Treatment Note Visit Start Time 09:45 Visit Stop Time 10:30 Total Visit Minutes 45 Visit Number 3/ Number of ALL SOURCE INTELLIGENCE TECHNICIAN Visits 0 Evaluation Information Evaluation Date 07/27/17 PT-OP-B Current Condition Start: 09/28/17 15:21 Freq: Status: Active Protocol: Document 10/12/17 13:45 DCW (Rec: 10/12/17 18:33 DCW [id number]) Current Condition History of Current Condition Onset Date 02/05/17 History of Current Condition See Pt's initial evaluation in Therapy Source Current Functional Impairments (Reported) Functional Limitations- Mobility/Gait Transfers:W/C<->Mat Stand- pivot: Independent PT-OP-C Subjective Start: 09/28/17 15:21 Freq: Status: Active Protocol: Document 02/25/21 09:45 DCW (Rec: 02/25/21 10:32 DCW [id number]) OP-PT Subjective Patient Comments Patient Comments Pt reports his urology appointment went well, no reason he cannot continue to work on strengthening and activity tolerance. PT-OP-D Balance Start: 10/12/17 18:11 Freq: Status: Active Protocol: Document 02/04/21 09:45 DCW (Rec: 02/04/21 11:42 DCW [id number]) OP-PT Balance Assessment Standing Balance Standing Balance Comments Double leg, Eyes open: 14 Mejia Fall Scale Copyright Permission PT-OP-E Functional Tests Start: 10/12/17 18:11 Freq: Status: Active Protocol: Document 02/04/21 09:45 DCW (Rec: 02/04/21 11:42 DCW [id number]) Functional Tests 6 Minute Walk Test Distance 60' Device Used 4WW Comments Stopped at 26 PT-OP-G Mobility & Gait Start: 12/23/18 10:02 Freq: Status: Active Protocol: Document 02/04/21 09:45 DCW (Rec: 02/04/21 11:42 DCW [id number]) OP Gait Assessment Gait Gait Assistance Required: Contact Guard Assist Distance (Feet) 60 Assistive Devices Assistive Device Gait Belt,4 Wheeled Walker Gait Deviations General Gait Pattern Antalgic,Ataxic,Decreased Stride Length,Decreased Feet Clearance,Flexed Trunk,Lateral Trunk Lean,Wide Based Gait PT-OP-M Strength Start: 10/12/17 18:11 Freq: Status: Active Protocol: Document 11/05/20 09:45 DCW (Rec: 11/05/20 10:20 DCW [id number]) Hip Strength Hip Manual Muscle Testing Right Flexion (L2) 5 Normal Abduction 4+ Good+ Adduction 5 Normal Left Flexion (L2) 5 Normal Abduction 4+ Good+ Adduction 4+ Good+ Knee Strength Knee Manual Muscle Testing Right Flexion (S2) 4+ Good+ Extension (L3) 4+ Good+ Left Flexion (S2) 5 Normal Extension (L3) 5 Normal Ankle/Foot Strength Ankle and Foot Manual Muscle Testing Right Dorsiflexion (L4) 2 Poor Plantarflexion (S1) 3+ Fair+ Left Dorsiflexion (L4) 4 Good Plantarflexion (S1) 4- Good- PT-OP-Q Treatments Start: 09/28/17 15:21 Freq: Status: Active Protocol: Document 02/25/21 09:45 DCW (Rec: 02/25/21 10:32 DCW [id number]) Gait Training Gait Activity 2 Description Amb /c 4WW Device Used 4WW Level of Assistance SBA Distance/Duration 190' Neuro Re-Education Treatment Balance Activities 6 Details Ball/cone pick-up, ball toss 5 Details SLS Equipment // bars Comments Min Ax1 4 Details NBOS Surface Morel foam Comments CGA 3 Details Hurdles Equipment // bars Comments Fwd, Side-stepping PT-OP-T Assessment and Plan Start: 09/28/17 15:21 Freq: Status: Active Protocol: Document 02/25/21 09:45 DCW (Rec: 02/25/21 10:32 DCW [id number]) Physical Therapy Assessment Impairments Impairments Activity Tolerance,Balance, Functional Activities, Functional Mobility,Gait,ROM, Strength Goals Eight Impairment Unassisted Gait Short Term Goal (STG) Pt to ambulate 300' SBA /s AD STG Duration Met Security Control Assessor Goal (LTG) Pt to ambulate 400' SBA /s AD LTG Duration 05/06/21 Seven Impairment Donis Short Term Goal (STG) Pt to score 22/56 on Donis Balance scale STG Duration Met Security Control Assessor Goal (LTG) Pt to score 35/56 on Donis Balance scale LTG Duration 05/06/21 Six Impairment Static Standing Balance Short Term Goal (STG) Pt to stand independently for 2 minutes STG Duration Met Security Control Assessor Goal (LTG) Pt to stand independently for 3 minutes LTG Duration 06/06/20 Five Impairment 6 MWT Security Control Assessor Goal (LTG) Pt to ambulate 1000' without rest using 4WW during 6 MWT LTG Duration 05/06/21 - Recent decline Four Impairment Foot slap Short Term Goal (STG) Pt to regularly wear R AFO to limit foot drop and help normalize gait pattern STG Duration Met Three Impairment Transfers Short Term Goal (STG) Pt to transfer independently from mat<->w/c with no assistive devices STG Duration Met Two Impairment Ankle weakness Security Control Assessor Goal (LTG) Pt to display 2/5 MMT in R DF, 4/5 MMT in R PF, and 4+/5 MMT in all other bilateral ankle movements LTG Duration 05/06/21 - recent decline One Impairment Activity tolerance Senior Care Goal (LTG) Pt to tolerate activity up to 15 minutes without a break LTG Duration 05/06/21 Progress Towards Goals Progress Towards Goals Slow Progress due to Activity Tolerance,Slow Progress due to Medical Issues Assessment Summary Assessment Pt clearly improved today, much improved gait ability vs last few weeks/months. Pt has had five UTIs over the past five months, but appears to be finally improving. Physical Therapy Plan Frequency and Duration Frequency of Treatment 1x/Week Duration of Treatment 3 months Plan of Care Start Date 02/04/21 Plan of Care End Date 05/06/21 Therapeutic Interventions Therapeutic Interventions Aquatic Therapy,Balance Training,Gait Training,Home Exercise Program,Manual Therapy,Neuromuscular Re- education,Soft Tissue Mobilization,Therapeutic Activities,Therapeutic Exercises Next Visit Focus/Plan Next Note Type Treatment Note Next Visit Plan Floor transfers if safe
--- NOTE | 2021-03-04 10:29 | PT.OTN ---
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 with return to pre-existing conscious level, subsequent encounter (03/04/21) History of falling (03/04/21) Physical Therapy Treatment Note PT-OP-A Visit Information Start: 09/28/17 15:21 Freq: Status: Active Protocol: Document 03/04/21 09:45 DCW (Rec: 03/04/21 10:29 DCW [id number]) Out-Patient Physical Therapy Visit Information Visit Information Visit Type Treatment Note Visit Start Time 09:45 Visit Stop Time 10:30 Total Visit Minutes 45 Visit Number 4/ Number of BRINE TANK SEPARATOR OPERATOR Visits 0 Evaluation Information Evaluation Date 07/27/17 PT-OP-B Current Condition Start: 09/28/17 15:21 Freq: Status: Active Protocol: Document 10/12/17 13:45 DCW (Rec: 10/12/17 18:33 DCW [id number]) Current Condition History of Current Condition Onset Date 02/05/17 History of Current Condition See Pt's initial evaluation in Therapy Source Current Functional Impairments (Reported) Functional Limitations- Mobility/Gait Transfers:W/C<->Mat Stand- pivot: Independent PT-OP-C Subjective Start: 09/28/17 15:21 Freq: Status: Active Protocol: Document 03/04/21 09:45 DCW (Rec: 03/04/21 10:29 DCW [id number]) OP-PT Subjective Patient Comments Patient Comments Pt reports he is feeling pretty good, but very weak. I just can't get my strength back at all. PT-OP-D Balance Start: 10/12/17 18:11 Freq: Status: Active Protocol: Document 02/04/21 09:45 DCW (Rec: 02/04/21 11:42 DCW [id number]) OP-PT Balance Assessment Standing Balance Standing Balance Comments Double leg, Eyes open: 14 Mejia Fall Scale Copyright Permission PT-OP-E Functional Tests Start: 10/12/17 18:11 Freq: Status: Active Protocol: Document 02/04/21 09:45 DCW (Rec: 02/04/21 11:42 DCW [id number]) Functional Tests 6 Minute Walk Test Distance 60' Device Used 4WW Comments Stopped at 26 PT-OP-G Mobility & Gait Start: 12/23/18 10:02 Freq: Status: Active Protocol: Document 02/04/21 09:45 DCW (Rec: 02/04/21 11:42 DCW [id number]) OP Gait Assessment Gait Gait Assistance Required: Contact Guard Assist Distance (Feet) 60 Assistive Devices Assistive Device Gait Belt,4 Wheeled Walker Gait Deviations General Gait Pattern Antalgic,Ataxic,Decreased Stride Length,Decreased Feet Clearance,Flexed Trunk,Lateral Trunk Lean,Wide Based Gait PT-OP-M Strength Start: 10/12/17 18:11 Freq: Status: Active Protocol: Document 11/05/20 09:45 DCW (Rec: 11/05/20 10:20 DCW [id number]) Hip Strength Hip Manual Muscle Testing Right Flexion (L2) 5 Normal Abduction 4+ Good+ Adduction 5 Normal Left Flexion (L2) 5 Normal Abduction 4+ Good+ Adduction 4+ Good+ Knee Strength Knee Manual Muscle Testing Right Flexion (S2) 4+ Good+ Extension (L3) 4+ Good+ Left Flexion (S2) 5 Normal Extension (L3) 5 Normal Ankle/Foot Strength Ankle and Foot Manual Muscle Testing Right Dorsiflexion (L4) 2 Poor Plantarflexion (S1) 3+ Fair+ Left Dorsiflexion (L4) 4 Good Plantarflexion (S1) 4- Good- PT-OP-Q Treatments Start: 09/28/17 15:21 Freq: Status: Active Protocol: Document 03/04/21 09:45 DCW (Rec: 03/04/21 10:29 DCW [id number]) Therapeutic Exercises Standing Exercises Hamstring curls Standing Exercise Name HS curls at rail Side bilateral Resistance 10# Equipment Used // bars Reps/Minutes x20 Standing Marching Standing Exercise Name Marching Side bilateral Resistance 10# Equipment Used // bars Gait Training Gait Activity 2 Description Amb /c 4WW Device Used 4WW Level of Assistance SBA Distance/Duration 190' Neuro Re-Education Treatment Balance Activities 6 Details Ball/cone pick-up, ball toss 5 Details SLS Equipment // bars Comments Min Ax1 4 Details NBOS Surface Morel foam Comments CGA 3 Details Hurdles Equipment // bars Comments Fwd, Side-stepping PT-OP-T Assessment and Plan Start: 09/28/17 15:21 Freq: Status: Active Protocol: Document 03/04/21 09:45 DCW (Rec: 03/04/21 10:29 DCW [id number]) Physical Therapy Assessment Impairments Impairments Activity Tolerance,Balance, Functional Activities, Functional Mobility,Gait,ROM, Strength Goals Eight Impairment Unassisted Gait Short Term Goal (STG) Pt to ambulate 300' SBA /s AD STG Duration Met Paving Bed Maker Goal (LTG) Pt to ambulate 400' SBA /s AD LTG Duration 05/06/21 Seven Impairment Donis Short Term Goal (STG) Pt to score 22/56 on Donis Balance scale STG Duration Met Paving Bed Maker Goal (LTG) Pt to score 35/56 on Donis Balance scale LTG Duration 05/06/21 Six Impairment Static Standing Balance Short Term Goal (STG) Pt to stand independently for 2 minutes STG Duration Met Fdc Goal (LTG) Pt to stand independently for 3 minutes LTG Duration 06/06/20 Five Impairment 6 MWT Paving Bed Maker Goal (LTG) Pt to ambulate 1000' without rest using 4WW during 6 MWT LTG Duration 05/06/21 - Recent decline Four Impairment Foot slap Short Term Goal (STG) Pt to regularly wear R AFO to limit foot drop and help normalize gait pattern STG Duration Met Three Impairment Transfers Short Term Goal (STG) Pt to transfer independently from mat<->w/c with no assistive devices STG Duration Met Two Impairment Ankle weakness Paving Bed Maker Goal (LTG) Pt to display 2/5 MMT in R DF, 4/5 MMT in R PF, and 4+/5 MMT in all other bilateral ankle movements LTG Duration 05/06/21 - recent decline One Impairment Activity tolerance Fdc Goal (LTG) Pt to tolerate activity up to 15 minutes without a break LTG Duration 05/06/21 Progress Towards Goals Progress Towards Goals Slow Progress due to Activity Tolerance,Slow Progress due to Medical Issues Assessment Summary Assessment Pt still fatiguing quickly, however improved following recent decline in function with UTI complication. Physical Therapy Plan Frequency and Duration Frequency of Treatment 1x/Week Duration of Treatment 3 months Plan of Care Start Date 02/04/21 Plan of Care End Date 05/06/21 Therapeutic Interventions Therapeutic Interventions Aquatic Therapy,Balance Training,Gait Training,Home Exercise Program,Manual Therapy,Neuromuscular Re- education,Soft Tissue Mobilization,Therapeutic Activities,Therapeutic Exercises Next Visit Focus/Plan Next Note Type Treatment Note Next Visit Plan Floor transfers if safe
--- NOTE | 2021-03-11 10:28 | PT.OTN ---
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 with return to pre-existing conscious level, subsequent encounter (03/11/21) History of falling (03/11/21) Physical Therapy Treatment Note PT-OP-A Visit Information Start: 09/28/17 15:21 Freq: Status: Active Protocol: Document 03/11/21 09:45 DCW (Rec: 03/11/21 10:28 DCW [id number]) Out-Patient Physical Therapy Visit Information Visit Information Visit Type Treatment Note Visit Start Time 09:45 Visit Stop Time 10:30 Total Visit Minutes 45 Visit Number 5/ Number of CALCULATING MACHINE OPERATOR Visits 0 Evaluation Information Evaluation Date 07/27/17 PT-OP-B Current Condition Start: 09/28/17 15:21 Freq: Status: Active Protocol: Document 10/12/17 13:45 DCW (Rec: 10/12/17 18:33 DCW [id number]) Current Condition History of Current Condition Onset Date 02/05/17 History of Current Condition See Pt's initial evaluation in Therapy Source Current Functional Impairments (Reported) Functional Limitations- Mobility/Gait Transfers:W/C<->Mat Stand- pivot: Independent PT-OP-C Subjective Start: 09/28/17 15:21 Freq: Status: Active Protocol: Document 03/11/21 09:45 DCW (Rec: 03/11/21 10:28 DCW [id number]) OP-PT Subjective Patient Comments Patient Comments Pt having some pain/tightness throughout his left leg and into his left leg, but notes that they're making good headway with his UTI. PT-OP-D Balance Start: 10/12/17 18:11 Freq: Status: Active Protocol: Document 02/04/21 09:45 DCW (Rec: 02/04/21 11:42 DCW [id number]) OP-PT Balance Assessment Standing Balance Standing Balance Comments Double leg, Eyes open: 14 Mejia Fall Scale Copyright Permission PT-OP-E Functional Tests Start: 10/12/17 18:11 Freq: Status: Active Protocol: Document 02/04/21 09:45 DCW (Rec: 02/04/21 11:42 DCW [id number]) Functional Tests 6 Minute Walk Test Distance 60' Device Used 4WW Comments Stopped at 26 PT-OP-G Mobility & Gait Start: 12/23/18 10:02 Freq: Status: Active Protocol: Document 02/04/21 09:45 DCW (Rec: 02/04/21 11:42 DCW [id number]) OP Gait Assessment Gait Gait Assistance Required: Contact Guard Assist Distance (Feet) 60 Assistive Devices Assistive Device Gait Belt,4 Wheeled Walker Gait Deviations General Gait Pattern Antalgic,Ataxic,Decreased Stride Length,Decreased Feet Clearance,Flexed Trunk,Lateral Trunk Lean,Wide Based Gait PT-OP-M Strength Start: 10/12/17 18:11 Freq: Status: Active Protocol: Document 11/05/20 09:45 DCW (Rec: 11/05/20 10:20 DCW [id number]) Hip Strength Hip Manual Muscle Testing Right Flexion (L2) 5 Normal Abduction 4+ Good+ Adduction 5 Normal Left Flexion (L2) 5 Normal Abduction 4+ Good+ Adduction 4+ Good+ Knee Strength Knee Manual Muscle Testing Right Flexion (S2) 4+ Good+ Extension (L3) 4+ Good+ Left Flexion (S2) 5 Normal Extension (L3) 5 Normal Ankle/Foot Strength Ankle and Foot Manual Muscle Testing Right Dorsiflexion (L4) 2 Poor Plantarflexion (S1) 3+ Fair+ Left Dorsiflexion (L4) 4 Good Plantarflexion (S1) 4- Good- PT-OP-Q Treatments Start: 09/28/17 15:21 Freq: Status: Active Protocol: Document 03/11/21 09:45 DCW (Rec: 03/11/21 10:28 DCW [id number]) Gym Equipment Shuttle Recovery Bilateral Heel Raises Resistance 100# Reps/Time x60 Unilateral Squats Resistance 62# Shuttle Recovery Platform Stable Reps/Time x20 each Bilateral Squats Resistance 125# Shuttle Recovery Platform Stable Reps/Time x30 Therapeutic Exercises Supine Exercises Piriformis Stretch Supine Exercise Name Figure-4 Side left Gait Training Gait Activity 2 Description Amb /c 4WW Device Used 4WW Level of Assistance SBA Distance/Duration 190' Manual Therapy Treatment Soft Tissue Mobilization Piriformis Body Location L piriformis Mobilization Type Strumming,Sustained Pressure Intensity/Depth Deep Body Position Sidelying PT-OP-T Assessment and Plan Start: 09/28/17 15:21 Freq: Status: Active Protocol: Document 03/11/21 09:45 DCW (Rec: 03/11/21 10:28 DCW [id number]) Physical Therapy Assessment Impairments Impairments Activity Tolerance,Balance, Functional Activities, Functional Mobility,Gait,ROM, Strength Goals Eight Impairment Unassisted Gait Short Term Goal (STG) Pt to ambulate 300' SBA /s AD STG Duration Met Icu Specialist Goal (LTG) Pt to ambulate 400' SBA /s AD LTG Duration 05/06/21 Seven Impairment Donis Short Term Goal (STG) Pt to score 22/56 on Donis Balance scale STG Duration Met Icu Specialist Goal (LTG) Pt to score 35/56 on Donis Balance scale LTG Duration 05/06/21 Six Impairment Static Standing Balance Short Term Goal (STG) Pt to stand independently for 2 minutes STG Duration Met Group Home Goal (LTG) Pt to stand independently for 3 minutes LTG Duration 06/06/20 Five Impairment 6 MWT Icu Specialist Goal (LTG) Pt to ambulate 1000' without rest using 4WW during 6 MWT LTG Duration 05/06/21 - Recent decline Four Impairment Foot slap Short Term Goal (STG) Pt to regularly wear R AFO to limit foot drop and help normalize gait pattern STG Duration Met Three Impairment Transfers Short Term Goal (STG) Pt to transfer independently from mat<->w/c with no assistive devices STG Duration Met Two Impairment Ankle weakness Group Home Goal (LTG) Pt to display 2/5 MMT in R DF, 4/5 MMT in R PF, and 4+/5 MMT in all other bilateral ankle movements LTG Duration 05/06/21 - recent decline One Impairment Activity tolerance Icu Specialist Goal (LTG) Pt to tolerate activity up to 15 minutes without a break LTG Duration 05/06/21 Progress Towards Goals Progress Towards Goals Slow Progress due to Activity Tolerance,Slow Progress due to Medical Issues Assessment Summary Assessment Focused today on decreasing his piriformis tone, pt feeling much better following stretching and STM. Physical Therapy Plan Frequency and Duration Frequency of Treatment 1x/Week Duration of Treatment 3 months Plan of Care Start Date 02/04/21 Plan of Care End Date 05/06/21 Therapeutic Interventions Therapeutic Interventions Aquatic Therapy,Balance Training,Gait Training,Home Exercise Program,Manual Therapy,Neuromuscular Re- education,Soft Tissue Mobilization,Therapeutic Activities,Therapeutic Exercises Next Visit Focus/Plan Next Note Type Treatment Note Next Visit Plan Floor transfers if safe
--- NOTE | 2021-03-18 10:30 | PT.OTN ---
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 greater than 24 hours with return to pre-existing conscious level, subsequent encounter (04/22/21) History of falling (04/22/21) Physical Therapy Treatment Note PT-OP-A Visit Information Start: 09/28/17 15:21 Freq: Status: Active Protocol: Document 04/22/21 09:36 DCW (Rec: 03/18/21 10:30 DCW [id number]) Out-Patient Physical Therapy Visit Information Visit Information Visit Type Treatment Note Visit Start Time 09:45 Visit Stop Time 10:30 Total Visit Minutes 45 Visit Number 11/07 Number of DIRECTOR WEIGHTS AND MEASURES Visits 0 Evaluation Information Evaluation Date 07/27/17 PT-OP-B Current Condition Start: 09/28/17 15:21 Freq: Status: Active Protocol: Document 10/12/17 13:45 DCW (Rec: 10/12/17 18:33 DCW [id number]) Current Condition History of Current Condition Onset Date 02/05/17 History of Current Condition See Pt's initial evaluation in Therapy Source Current Functional Impairments (Reported) Functional Limitations- Mobility/Gait Transfers:W/C<->Mat Stand- pivot: Independent PT-OP-C Subjective Start: 09/28/17 15:21 Freq: Status: Active Protocol: Document 04/22/21 09:36 DCW (Rec: 03/18/21 10:30 DCW [id number]) OP-PT Subjective Patient Comments Patient Comments Pt reporting increased numbness bilaterally in both legs, it comes and goes, but typically stays with me. Also notes that he had two falls at home, doesn't know why, feels like his legs just gave out. PT-OP-D Balance Start: 10/12/17 18:11 Freq: Status: Active Protocol: Document 02/04/21 09:45 DCW (Rec: 02/04/21 11:42 DCW [id number]) OP-PT Balance Assessment Standing Balance Standing Balance Comments Double leg, Eyes open: 14 Mejia Fall Scale Copyright Permission PT-OP-E Functional Tests Start: 10/12/17 18:11 Freq: Status: Active Protocol: Document 02/04/21 09:45 DCW (Rec: 02/04/21 11:42 DCW [id number]) Functional Tests 6 Minute Walk Test Distance 60' Device Used 4WW Comments Stopped at 26 PT-OP-G Mobility & Gait Start: 12/23/18 10:02 Freq: Status: Active Protocol: Document 02/04/21 09:45 DCW (Rec: 02/04/21 11:42 DCW [id number]) OP Gait Assessment Gait Gait Assistance Required: Contact Guard Assist Distance (Feet) 60 Assistive Devices Assistive Device Gait Belt,4 Wheeled Walker Gait Deviations General Gait Pattern Antalgic,Ataxic,Decreased Stride Length,Decreased Feet Clearance,Flexed Trunk,Lateral Trunk Lean,Wide Based Gait PT-OP-M Strength Start: 10/12/17 18:11 Freq: Status: Active Protocol: Document 11/05/20 09:45 DCW (Rec: 11/05/20 10:20 DCW [id number]) Hip Strength Hip Manual Muscle Testing Right Flexion (L2) 5 Normal Abduction 4+ Good+ Adduction 5 Normal Left Flexion (L2) 5 Normal Abduction 4+ Good+ Adduction 4+ Good+ Knee Strength Knee Manual Muscle Testing Right Flexion (S2) 4+ Good+ Extension (L3) 4+ Good+ Left Flexion (S2) 5 Normal Extension (L3) 5 Normal Ankle/Foot Strength Ankle and Foot Manual Muscle Testing Right Dorsiflexion (L4) 2 Poor Plantarflexion (S1) 3+ Fair+ Left Dorsiflexion (L4) 4 Good Plantarflexion (S1) 4- Good- PT-OP-Q Treatments Start: 09/28/17 15:21 Freq: Status: Active Protocol: Document 04/22/21 09:36 DCW (Rec: 03/18/21 10:30 DCW [id number]) Gait Training Gait Activity 2 Description Amb /c 4WW Device Used 4WW Level of Assistance SBA Distance/Duration 190' Manual Therapy Treatment Soft Tissue Mobilization Piriformis Body Location L piriformis Mobilization Type Strumming,Sustained Pressure Intensity/Depth Deep Body Position Sidelying Neuro Re-Education Treatment Balance Activities 3 Details Hurdles Equipment // bars Comments Fwd, Side-stepping PT-OP-T Assessment and Plan Start: 09/28/17 15:21 Freq: Status: Active Protocol: Document 04/22/21 09:36 DCW (Rec: 03/18/21 10:30 DCW [id number]) Physical Therapy Assessment Impairments Impairments Activity Tolerance,Balance, Functional Activities, Functional Mobility,Gait,ROM, Strength Goals Eight Impairment Unassisted Gait Short Term Goal (STG) Pt to ambulate 300' SBA /s AD STG Duration Met Tool Engine Lathe Set Up Operator Goal (LTG) Pt to ambulate 400' SBA /s AD LTG Duration 05/06/21 Seven Impairment Donis Short Term Goal (STG) Pt to score 22/56 on Donis Balance scale STG Duration Met Fdc Goal (LTG) Pt to score 35/56 on Donis Balance scale LTG Duration 05/06/21 Six Impairment Static Standing Balance Short Term Goal (STG) Pt to stand independently for 2 minutes STG Duration Met Tool Engine Lathe Set Up Operator Goal (LTG) Pt to stand independently for 3 minutes LTG Duration 06/06/20 Five Impairment 6 MWT Tool Engine Lathe Set Up Operator Goal (LTG) Pt to ambulate 1000' without rest using 4WW during 6 MWT LTG Duration 05/06/21 - Recent decline Four Impairment Foot slap Short Term Goal (STG) Pt to regularly wear R AFO to limit foot drop and help normalize gait pattern STG Duration Met Three Impairment Transfers Short Term Goal (STG) Pt to transfer independently from mat<->w/c with no assistive devices STG Duration Met Two Impairment Ankle weakness Fdc Goal (LTG) Pt to display 2/5 MMT in R DF, 4/5 MMT in R PF, and 4+/5 MMT in all other bilateral ankle movements LTG Duration 05/06/21 - recent decline One Impairment Activity tolerance Tool Engine Lathe Set Up Operator Goal (LTG) Pt to tolerate activity up to 15 minutes without a break LTG Duration 05/06/21 Progress Towards Goals Progress Towards Goals Slow Progress due to Activity Tolerance,Slow Progress due to Medical Issues Assessment Summary Assessment Pt tolerated STM well today, felt like he was walking much better following session. Physical Therapy Plan Frequency and Duration Frequency of Treatment 1x/Week Duration of Treatment 3 months Plan of Care Start Date 02/04/21 Plan of Care End Date 05/06/21 Therapeutic Interventions Therapeutic Interventions Aquatic Therapy,Balance Training,Gait Training,Home Exercise Program,Manual Therapy,Neuromuscular Re- education,Soft Tissue Mobilization,Therapeutic Activities,Therapeutic Exercises Next Visit Focus/Plan Next Note Type Treatment Note Next Visit Plan Floor transfers if safe
--- NOTE | 2021-03-25 10:30 | PT.OTN ---
Current Diagnoses Foot drop, right foot (03/25/21) Muscle weakness (generalized) (03/25/21) Unsteadiness on feet (03/25/21) Unspecified abnormalities of gait and mobility (03/25/21) Traumatic subdural hemorrhage with loss of consciousness greater than 24 hours with return to pre-existing conscious level, subsequent encounter (03/25/21) History of falling (03/25/21) Physical Therapy Treatment Note PT-OP-A Visit Information Start: 09/28/17 15:21 Freq: Status: Active Protocol: Document 03/25/21 09:45 DCW (Rec: 03/25/21 10:30 DCW [id number]) Out-Patient Physical Therapy Visit Information Visit Information Visit Type Treatment Note Visit Start Time 09:45 Visit Stop Time 10:30 Total Visit Minutes 45 Visit Number 12/07 Number of HEDDLER TIER Visits 0 Evaluation Information Evaluation Date 07/27/17 PT-OP-B Current Condition Start: 09/28/17 15:21 Freq: Status: Active Protocol: Document 10/12/17 13:45 DCW (Rec: 10/12/17 18:33 DCW [id number]) Current Condition History of Current Condition Onset Date 02/05/17 History of Current Condition See Pt's initial evaluation in Therapy Source Current Functional Impairments (Reported) Functional Limitations- Mobility/Gait Transfers:W/C<->Mat Stand- pivot: Independent PT-OP-C Subjective Start: 09/28/17 15:21 Freq: Status: Active Protocol: Document 03/25/21 09:45 DCW (Rec: 03/25/21 10:30 DCW [id number]) OP-PT Subjective Patient Comments Patient Comments Pt pretty good today, but still feels like his walking is worsening. PT-OP-D Balance Start: 10/12/17 18:11 Freq: Status: Active Protocol: Document 02/04/21 09:45 DCW (Rec: 02/04/21 11:42 DCW [id number]) OP-PT Balance Assessment Standing Balance Standing Balance Comments Double leg, Eyes open: 14 Mejia Fall Scale Copyright Permission PT-OP-E Functional Tests Start: 10/12/17 18:11 Freq: Status: Active Protocol: Document 02/04/21 09:45 DCW (Rec: 02/04/21 11:42 DCW [id number]) Functional Tests 6 Minute Walk Test Distance 60' Device Used 4WW Comments Stopped at 26 PT-OP-G Mobility & Gait Start: 12/23/18 10:02 Freq: Status: Active Protocol: Document 02/04/21 09:45 DCW (Rec: 02/04/21 11:42 DCW [id number]) OP Gait Assessment Gait Gait Assistance Required: Contact Guard Assist Distance (Feet) 60 Assistive Devices Assistive Device Gait Belt,4 Wheeled Walker Gait Deviations General Gait Pattern Antalgic,Ataxic,Decreased Stride Length,Decreased Feet Clearance,Flexed Trunk,Lateral Trunk Lean,Wide Based Gait PT-OP-M Strength Start: 10/12/17 18:11 Freq: Status: Active Protocol: Document 11/05/20 09:45 DCW (Rec: 11/05/20 10:20 DCW [id number]) Hip Strength Hip Manual Muscle Testing Right Flexion (L2) 5 Normal Abduction 4+ Good+ Adduction 5 Normal Left Flexion (L2) 5 Normal Abduction 4+ Good+ Adduction 4+ Good+ Knee Strength Knee Manual Muscle Testing Right Flexion (S2) 4+ Good+ Extension (L3) 4+ Good+ Left Flexion (S2) 5 Normal Extension (L3) 5 Normal Ankle/Foot Strength Ankle and Foot Manual Muscle Testing Right Dorsiflexion (L4) 2 Poor Plantarflexion (S1) 3+ Fair+ Left Dorsiflexion (L4) 4 Good Plantarflexion (S1) 4- Good- PT-OP-Q Treatments Start: 09/28/17 15:21 Freq: Status: Active Protocol: Document 03/25/21 09:45 DCW (Rec: 03/25/21 10:30 DCW [id number]) Gym Equipment Shuttle Recovery Bilateral Heel Raises Resistance 100# Reps/Time x60 Unilateral Squats Resistance 62# Shuttle Recovery Platform Stable Reps/Time x20 each Bilateral Squats Resistance 125# Shuttle Recovery Platform Stable Reps/Time x30 Gait Training Gait Activity 2 Description Amb /c 4WW Device Used 4WW Level of Assistance SBA Distance/Duration 190' Neuro Re-Education Treatment Balance Activities 6 Details Ball/cone pick-up, ball toss 5 Details SLS Equipment // bars Comments Min Ax1 4 Details NBOS Surface Morel foam Equipment // bars Comments CGA 3 Details Hurdles Equipment // bars Comments Fwd PT-OP-T Assessment and Plan Start: 09/28/17 15:21 Freq: Status: Active Protocol: Document 03/25/21 09:45 DCW (Rec: 03/25/21 10:30 DCW [id number]) Physical Therapy Assessment Impairments Impairments Activity Tolerance,Balance, Functional Activities, Functional Mobility,Gait,ROM, Strength Goals Eight Impairment Unassisted Gait Short Term Goal (STG) Pt to ambulate 300' SBA /s AD STG Duration Met Skip Pitman Goal (LTG) Pt to ambulate 400' SBA /s AD LTG Duration 05/06/21 Seven Impairment Donis Short Term Goal (STG) Pt to score 22/56 on Donis Balance scale STG Duration Met Long-Term Goal (LTG) Pt to score 35/56 on Donis Balance scale LTG Duration 05/06/21 Six Impairment Static Standing Balance Short Term Goal (STG) Pt to stand independently for 2 minutes STG Duration Met Long-Term Goal (LTG) Pt to stand independently for 3 minutes LTG Duration 06/06/20 Five Impairment 6 MWT Skip Pitman Goal (LTG) Pt to ambulate 1000' without rest using 4WW during 6 MWT LTG Duration 05/06/21 - Recent decline Four Impairment Foot slap Short Term Goal (STG) Pt to regularly wear R AFO to limit foot drop and help normalize gait pattern STG Duration Met Three Impairment Transfers Short Term Goal (STG) Pt to transfer independently from mat<->w/c with no assistive devices STG Duration Met Two Impairment Ankle weakness Skip Pitman Goal (LTG) Pt to display 2/5 MMT in R DF, 4/5 MMT in R PF, and 4+/5 MMT in all other bilateral ankle movements LTG Duration 05/06/21 - recent decline One Impairment Activity tolerance Skip Pitman Goal (LTG) Pt to tolerate activity up to 15 minutes without a break LTG Duration 05/06/21 Progress Towards Goals Progress Towards Goals Slow Progress due to Activity Tolerance,Slow Progress due to Medical Issues Assessment Summary Assessment Pt doing slightly better today , improved gait quality, still struggling with activity tolerance. Physical Therapy Plan Frequency and Duration Frequency of Treatment 1x/Week Duration of Treatment 3 months Plan of Care Start Date 02/04/21 Plan of Care End Date 05/06/21 Therapeutic Interventions Therapeutic Interventions Aquatic Therapy,Balance Training,Gait Training,Home Exercise Program,Manual Therapy,Neuromuscular Re- education,Soft Tissue Mobilization,Therapeutic Activities,Therapeutic Exercises Next Visit Focus/Plan Next Note Type Treatment Note Next Visit Plan Floor transfers if safe
--- NOTE | 2021-04-01 10:30 | PT.OTN ---
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 with return to pre-existing conscious level, subsequent encounter (04/01/21) History of falling (04/01/21) Physical Therapy Treatment Note PT-OP-A Visit Information Start: 09/28/17 15:21 Freq: Status: Active Protocol: Document 04/01/21 09:45 DCW (Rec: 04/01/21 10:29 DCW [id number]) Out-Patient Physical Therapy Visit Information Visit Information Visit Type Treatment Note Visit Start Time 09:45 Visit Stop Time 10:30 Total Visit Minutes 45 Visit Number 01/07 Number of FINANCIAL ADVISOR Visits 0 Evaluation Information Evaluation Date 07/27/17 PT-OP-B Current Condition Start: 09/28/17 15:21 Freq: Status: Active Protocol: Document 10/12/17 13:45 DCW (Rec: 10/12/17 18:33 DCW [id number]) Current Condition History of Current Condition Onset Date 02/05/17 History of Current Condition See Pt's initial evaluation in Therapy Source Current Functional Impairments (Reported) Functional Limitations- Mobility/Gait Transfers:W/C<->Mat Stand- pivot: Independent PT-OP-C Subjective Start: 09/28/17 15:21 Freq: Status: Active Protocol: Document 04/01/21 09:45 DCW (Rec: 04/01/21 10:29 DCW [id number]) OP-PT Subjective Patient Comments Patient Comments Pt seems a little perturbed that his PCP is retiring. PT-OP-D Balance Start: 10/12/17 18:11 Freq: Status: Active Protocol: Document 02/04/21 09:45 DCW (Rec: 02/04/21 11:42 DCW [id number]) OP-PT Balance Assessment Standing Balance Standing Balance Comments Double leg, Eyes open: 14 Mejia Fall Scale Copyright Permission PT-OP-E Functional Tests Start: 10/12/17 18:11 Freq: Status: Active Protocol: Document 02/04/21 09:45 DCW (Rec: 02/04/21 11:42 DCW [id number]) Functional Tests 6 Minute Walk Test Distance 60' Device Used 4WW Comments Stopped at 26 PT-OP-G Mobility & Gait Start: 12/23/18 10:02 Freq: Status: Active Protocol: Document 02/04/21 09:45 DCW (Rec: 02/04/21 11:42 DCW [id number]) OP Gait Assessment Gait Gait Assistance Required: Contact Guard Assist Distance (Feet) 60 Assistive Devices Assistive Device Gait Belt,4 Wheeled Walker Gait Deviations General Gait Pattern Antalgic,Ataxic,Decreased Stride Length,Decreased Feet Clearance,Flexed Trunk,Lateral Trunk Lean,Wide Based Gait PT-OP-M Strength Start: 10/12/17 18:11 Freq: Status: Active Protocol: Document 11/05/20 09:45 DCW (Rec: 11/05/20 10:20 DCW [id number]) Hip Strength Hip Manual Muscle Testing Right Flexion (L2) 5 Normal Abduction 4+ Good+ Adduction 5 Normal Left Flexion (L2) 5 Normal Abduction 4+ Good+ Adduction 4+ Good+ Knee Strength Knee Manual Muscle Testing Right Flexion (S2) 4+ Good+ Extension (L3) 4+ Good+ Left Flexion (S2) 5 Normal Extension (L3) 5 Normal Ankle/Foot Strength Ankle and Foot Manual Muscle Testing Right Dorsiflexion (L4) 2 Poor Plantarflexion (S1) 3+ Fair+ Left Dorsiflexion (L4) 4 Good Plantarflexion (S1) 4- Good- PT-OP-Q Treatments Start: 09/28/17 15:21 Freq: Status: Active Protocol: Document 04/01/21 09:45 DCW (Rec: 04/01/21 10:29 DCW [id number]) Gait Training Gait Activity 2 Description Amb /c 4WW Device Used 4WW Level of Assistance SBA Distance/Duration 190' Neuro Re-Education Treatment Balance Activities 6 Details Ball/cone pick-up, ball toss 5 Details SLS Equipment // bars Comments Min Ax1 4 Details NBOS Surface Morel foam Equipment // bars Comments CGA 3 Details Hurdles Equipment // bars Comments Fwd, Side-stepping 2 Details Tandem Stance Equipment // bars PT-OP-T Assessment and Plan Start: 09/28/17 15:21 Freq: Status: Active Protocol: Document 04/01/21 09:45 DCW (Rec: 04/01/21 10:29 DCW [id number]) Physical Therapy Assessment Impairments Impairments Activity Tolerance,Balance, Functional Activities, Functional Mobility,Gait,ROM, Strength Goals Eight Impairment Unassisted Gait Short Term Goal (STG) Pt to ambulate 300' SBA /s AD STG Duration Met Fuel Oil Truck Driver Goal (LTG) Pt to ambulate 400' SBA /s AD LTG Duration 05/06/21 Seven Impairment Donis Short Term Goal (STG) Pt to score 22/56 on Donis Balance scale STG Duration Met Half-Way Goal (LTG) Pt to score 35/56 on Donis Balance scale LTG Duration 05/06/21 Six Impairment Static Standing Balance Short Term Goal (STG) Pt to stand independently for 2 minutes STG Duration Met Fuel Oil Truck Driver Goal (LTG) Pt to stand independently for 3 minutes LTG Duration 06/06/20 Five Impairment 6 MWT Fuel Oil Truck Driver Goal (LTG) Pt to ambulate 1000' without rest using 4WW during 6 MWT LTG Duration 05/06/21 - Recent decline Four Impairment Foot slap Short Term Goal (STG) Pt to regularly wear R AFO to limit foot drop and help normalize gait pattern STG Duration Met Three Impairment Transfers Short Term Goal (STG) Pt to transfer independently from mat<->w/c with no assistive devices STG Duration Met Two Impairment Ankle weakness Half-Way Goal (LTG) Pt to display 2/5 MMT in R DF, 4/5 MMT in R PF, and 4+/5 MMT in all other bilateral ankle movements LTG Duration 05/06/21 - recent decline One Impairment Activity tolerance Fuel Oil Truck Driver Goal (LTG) Pt to tolerate activity up to 15 minutes without a break LTG Duration 05/06/21 Progress Towards Goals Progress Towards Goals Slow Progress due to Activity Tolerance,Slow Progress due to Medical Issues Assessment Summary Assessment Pt fatigued a bit today, rest breaks slightly longer than usual. Physical Therapy Plan Frequency and Duration Frequency of Treatment 1x/Week Duration of Treatment 3 months Plan of Care Start Date 02/04/21 Plan of Care End Date 05/06/21 Therapeutic Interventions Therapeutic Interventions Aquatic Therapy,Balance Training,Gait Training,Home Exercise Program,Manual Therapy,Neuromuscular Re- education,Soft Tissue Mobilization,Therapeutic Activities,Therapeutic Exercises Next Visit Focus/Plan Next Note Type Treatment Note Next Visit Plan Floor transfers if safe
--- NOTE | 2021-04-08 10:31 | PT.OTN ---
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 with return to pre-existing conscious level, subsequent encounter (04/08/21) History of falling (04/08/21) Physical Therapy Treatment Note PT-OP-A Visit Information Start: 09/28/17 15:21 Freq: Status: Active Protocol: Document 04/08/21 09:45 DCW (Rec: 04/08/21 10:31 DCW [id number]) Out-Patient Physical Therapy Visit Information Visit Information Visit Type Treatment Note Visit Start Time 09:45 Visit Stop Time 10:30 Total Visit Minutes 45 Visit Number 02/07 Number of LOGGING CREW FOREMAN Visits 0 Evaluation Information Evaluation Date 07/27/17 PT-OP-B Current Condition Start: 09/28/17 15:21 Freq: Status: Active Protocol: Document 10/12/17 13:45 DCW (Rec: 10/12/17 18:33 DCW [id number]) Current Condition History of Current Condition Onset Date 02/05/17 History of Current Condition See Pt's initial evaluation in Therapy Source Current Functional Impairments (Reported) Functional Limitations- Mobility/Gait Transfers:W/C<->Mat Stand- pivot: Independent PT-OP-C Subjective Start: 09/28/17 15:21 Freq: Status: Active Protocol: Document 04/08/21 09:45 DCW (Rec: 04/08/21 10:31 DCW [id number]) OP-PT Subjective Patient Comments Patient Comments Pt reports that he has been having increased difficulty getting out of his recliner. PT-OP-D Balance Start: 10/12/17 18:11 Freq: Status: Active Protocol: Document 02/04/21 09:45 DCW (Rec: 02/04/21 11:42 DCW [id number]) OP-PT Balance Assessment Standing Balance Standing Balance Comments Double leg, Eyes open: 14 Mejia Fall Scale Copyright Permission PT-OP-E Functional Tests Start: 10/12/17 18:11 Freq: Status: Active Protocol: Document 02/04/21 09:45 DCW (Rec: 02/04/21 11:42 DCW [id number]) Functional Tests 6 Minute Walk Test Distance 60' Device Used 4WW Comments Stopped at 26 PT-OP-G Mobility & Gait Start: 12/23/18 10:02 Freq: Status: Active Protocol: Document 02/04/21 09:45 DCW (Rec: 02/04/21 11:42 DCW [id number]) OP Gait Assessment Gait Gait Assistance Required: Contact Guard Assist Distance (Feet) 60 Assistive Devices Assistive Device Gait Belt,4 Wheeled Walker Gait Deviations General Gait Pattern Antalgic,Ataxic,Decreased Stride Length,Decreased Feet Clearance,Flexed Trunk,Lateral Trunk Lean,Wide Based Gait PT-OP-M Strength Start: 10/12/17 18:11 Freq: Status: Active Protocol: Document 11/05/20 09:45 DCW (Rec: 11/05/20 10:20 DCW [id number]) Hip Strength Hip Manual Muscle Testing Right Flexion (L2) 5 Normal Abduction 4+ Good+ Adduction 5 Normal Left Flexion (L2) 5 Normal Abduction 4+ Good+ Adduction 4+ Good+ Knee Strength Knee Manual Muscle Testing Right Flexion (S2) 4+ Good+ Extension (L3) 4+ Good+ Left Flexion (S2) 5 Normal Extension (L3) 5 Normal Ankle/Foot Strength Ankle and Foot Manual Muscle Testing Right Dorsiflexion (L4) 2 Poor Plantarflexion (S1) 3+ Fair+ Left Dorsiflexion (L4) 4 Good Plantarflexion (S1) 4- Good- PT-OP-Q Treatments Start: 09/28/17 15:21 Freq: Status: Active Protocol: Document 04/08/21 09:45 DCW (Rec: 04/08/21 10:31 DCW [id number]) Therapeutic Activity Therapeutic Activity 1 Name Sit<->stand from low table Gait Training Gait Activity 2 Description Amb /c 4WW Device Used 4WW Level of Assistance SBA Distance/Duration 190' Manual Therapy Treatment Soft Tissue Mobilization Piriformis Body Location L piriformis Mobilization Type Strumming,Sustained Pressure Intensity/Depth Deep Body Position Sidelying Neuro Re-Education Treatment Balance Activities 6 Details Ball/cone pick-up, ball toss PT-OP-T Assessment and Plan Start: 09/28/17 15:21 Freq: Status: Active Protocol: Document 04/08/21 09:45 DCW (Rec: 04/08/21 10:31 DCW [id number]) Physical Therapy Assessment Impairments Impairments Activity Tolerance,Balance, Functional Activities, Functional Mobility,Gait,ROM, Strength Goals Eight Impairment Unassisted Gait Short Term Goal (STG) Pt to ambulate 300' SBA /s AD STG Duration Met Fdc Goal (LTG) Pt to ambulate 400' SBA /s AD LTG Duration 05/06/21 Seven Impairment Donis Short Term Goal (STG) Pt to score 22/56 on Donis Balance scale STG Duration Met Fdc Goal (LTG) Pt to score 35/56 on Donis Balance scale LTG Duration 05/06/21 Six Impairment Static Standing Balance Short Term Goal (STG) Pt to stand independently for 2 minutes STG Duration Met Stereo Operator Goal (LTG) Pt to stand independently for 3 minutes LTG Duration 06/06/20 Five Impairment 6 MWT Stereo Operator Goal (LTG) Pt to ambulate 1000' without rest using 4WW during 6 MWT LTG Duration 05/06/21 - Recent decline Four Impairment Foot slap Short Term Goal (STG) Pt to regularly wear R AFO to limit foot drop and help normalize gait pattern STG Duration Met Three Impairment Transfers Short Term Goal (STG) Pt to transfer independently from mat<->w/c with no assistive devices STG Duration Met Two Impairment Ankle weakness Stereo Operator Goal (LTG) Pt to display 2/5 MMT in R DF, 4/5 MMT in R PF, and 4+/5 MMT in all other bilateral ankle movements LTG Duration 05/06/21 - recent decline One Impairment Activity tolerance Fdc Goal (LTG) Pt to tolerate activity up to 15 minutes without a break LTG Duration 05/06/21 Progress Towards Goals Progress Towards Goals Slow Progress due to Activity Tolerance,Slow Progress due to Medical Issues Assessment Summary Assessment Focused some on sit<->stand training, STM to piriformis today. Physical Therapy Plan Frequency and Duration Frequency of Treatment 1x/Week Duration of Treatment 3 months Plan of Care Start Date 02/04/21 Plan of Care End Date 05/06/21 Therapeutic Interventions Therapeutic Interventions Aquatic Therapy,Balance Training,Gait Training,Home Exercise Program,Manual Therapy,Neuromuscular Re- education,Soft Tissue Mobilization,Therapeutic Activities,Therapeutic Exercises Next Visit Focus/Plan Next Note Type Treatment Note Next Visit Plan Floor transfers if safe
--- NOTE | 2021-04-15 10:29 | PT.OTN ---
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 greater than 24 hours with return to pre-existing conscious level, subsequent encounter (04/15/21) History of falling (04/15/21) Physical Therapy Treatment Note PT-OP-A Visit Information Start: 09/28/17 15:21 Freq: Status: Active Protocol: Document 04/15/21 09:45 DCW (Rec: 04/15/21 10:29 DCW [id number]) Out-Patient Physical Therapy Visit Information Visit Information Visit Type Progress Note Visit Note 10th visit Visit Start Time 09:45 Visit Stop Time 10:25 Total Visit Minutes 40 Visit Number 03/09 Number of MANAGER ESTATE Visits 0 Evaluation Information Evaluation Date 07/27/17 PT-OP-B Current Condition Start: 09/28/17 15:21 Freq: Status: Active Protocol: Document 10/12/17 13:45 DCW (Rec: 10/12/17 18:33 DCW [id number]) Current Condition History of Current Condition Onset Date 02/05/17 History of Current Condition See Pt's initial evaluation in Therapy Source Current Functional Impairments (Reported) Functional Limitations- Mobility/Gait Transfers:W/C<->Mat Stand- pivot: Independent PT-OP-C Subjective Start: 09/28/17 15:21 Freq: Status: Active Protocol: Document 04/15/21 09:45 DCW (Rec: 04/15/21 10:29 DCW [id number]) OP-PT Subjective Patient Comments Patient Comments Pt had a bad fall at home, was unable to get up or crawl anywhere, but whas able after 20 minutes to pull himself up onto his low couch. PT-OP-D Balance Start: 10/12/17 18:11 Freq: Status: Active Protocol: Document 02/04/21 09:45 DCW (Rec: 02/04/21 11:42 DCW [id number]) OP-PT Balance Assessment Standing Balance Standing Balance Comments Double leg, Eyes open: 14 Mejia Fall Scale Copyright Permission PT-OP-E Functional Tests Start: 10/12/17 18:11 Freq: Status: Active Protocol: Document 02/04/21 09:45 DCW (Rec: 02/04/21 11:42 DCW [id number]) Functional Tests 6 Minute Walk Test Distance 60' Device Used 4WW Comments Stopped at 26 PT-OP-G Mobility & Gait Start: 12/23/18 10:02 Freq: Status: Active Protocol: Document 02/04/21 09:45 DCW (Rec: 02/04/21 11:42 DCW [id number]) OP Gait Assessment Gait Gait Assistance Required: Contact Guard Assist Distance (Feet) 60 Assistive Devices Assistive Device Gait Belt,4 Wheeled Walker Gait Deviations General Gait Pattern Antalgic,Ataxic,Decreased Stride Length,Decreased Feet Clearance,Flexed Trunk,Lateral Trunk Lean,Wide Based Gait PT-OP-M Strength Start: 10/12/17 18:11 Freq: Status: Active Protocol: Document 11/05/20 09:45 DCW (Rec: 11/05/20 10:20 DCW [id number]) Hip Strength Hip Manual Muscle Testing Right Flexion (L2) 5 Normal Abduction 4+ Good+ Adduction 5 Normal Left Flexion (L2) 5 Normal Abduction 4+ Good+ Adduction 4+ Good+ Knee Strength Knee Manual Muscle Testing Right Flexion (S2) 4+ Good+ Extension (L3) 4+ Good+ Left Flexion (S2) 5 Normal Extension (L3) 5 Normal Ankle/Foot Strength Ankle and Foot Manual Muscle Testing Right Dorsiflexion (L4) 2 Poor Plantarflexion (S1) 3+ Fair+ Left Dorsiflexion (L4) 4 Good Plantarflexion (S1) 4- Good- PT-OP-Q Treatments Start: 09/28/17 15:21 Freq: Status: Active Protocol: Document 04/15/21 09:45 DCW (Rec: 04/15/21 10:29 DCW [id number]) Gait Training Gait Activity 2 Description Amb /c 4WW Device Used 4WW Level of Assistance SBA Distance/Duration 294' Neuro Re-Education Treatment Balance Activities 6 Details Ball/cone pick-up, ball toss 5 Details SLS Equipment // bars Comments Min Ax1 4 Details NBOS Surface Morel foam Equipment // bars Comments CGA 3 Details Hurdles Equipment // bars Comments Fwd, Side-stepping 2 Details Tandem Stance Equipment // bars PT-OP-T Assessment and Plan Start: 09/28/17 15:21 Freq: Status: Active Protocol: Document 04/15/21 09:45 DCW (Rec: 04/15/21 10:29 DCW [id number]) Physical Therapy Assessment Impairments Impairments Activity Tolerance,Balance, Functional Activities, Functional Mobility,Gait,ROM, Strength Goals Eight Impairment Unassisted Gait Short Term Goal (STG) Pt to ambulate 300' SBA /s AD STG Duration Met Hoop Coiling Machine Operator Goal (LTG) Pt to ambulate 400' SBA /s AD LTG Duration 05/06/21 Seven Impairment Donis Short Term Goal (STG) Pt to score 22/56 on Donis Balance scale STG Duration Met Hoop Coiling Machine Operator Goal (LTG) Pt to score 35/56 on Donis Balance scale LTG Duration 05/06/21 Six Impairment Static Standing Balance Short Term Goal (STG) Pt to stand independently for 2 minutes STG Duration Met Hoop Coiling Machine Operator Goal (LTG) Pt to stand independently for 3 minutes LTG Duration 06/06/20 Five Impairment 6 MWT Intermediate Goal (LTG) Pt to ambulate 1000' without rest using 4WW during 6 MWT LTG Duration 05/06/21 - Recent decline Four Impairment Foot slap Short Term Goal (STG) Pt to regularly wear R AFO to limit foot drop and help normalize gait pattern STG Duration Met Three Impairment Transfers Short Term Goal (STG) Pt to transfer independently from mat<->w/c with no assistive devices STG Duration Met Two Impairment Ankle weakness Intermediate Goal (LTG) Pt to display 2/5 MMT in R DF, 4/5 MMT in R PF, and 4+/5 MMT in all other bilateral ankle movements LTG Duration 05/06/21 - recent decline One Impairment Activity tolerance Intermediate Goal (LTG) Pt to tolerate activity up to 15 minutes without a break LTG Duration 05/06/21 Progress Towards Goals Progress Towards Goals Slow Progress due to Activity Tolerance,Slow Progress due to Medical Issues Assessment Summary Assessment Pt struggling still with balance, fatigue, and weakness , has not fully recovered following his months-long UTI difficulties. Pt was able to ambulate nearly 300' today, which is by far his longest for a number of months. Physical Therapy Plan Frequency and Duration Frequency of Treatment 1x/Week Duration of Treatment 3 months Plan of Care Start Date 02/04/21 Plan of Care End Date 05/06/21 Therapeutic Interventions Therapeutic Interventions Aquatic Therapy,Balance Training,Gait Training,Home Exercise Program,Manual Therapy,Neuromuscular Re- education,Soft Tissue Mobilization,Therapeutic Activities,Therapeutic Exercises Next Visit Focus/Plan Next Note Type Treatment Note Next Visit Plan Floor transfers if safe
--- NOTE | 2021-04-22 10:30 | PT.OTN ---
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 greater than 24 hours with return to pre-existing conscious level, subsequent encounter (04/22/21) History of falling (04/22/21) Physical Therapy Treatment Note PT-OP-A Visit Information Start: 09/28/17 15:21 Freq: Status: Active Protocol: Document 04/22/21 09:45 DCW (Rec: 04/22/21 10:30 DCW [id number]) Out-Patient Physical Therapy Visit Information Visit Information Visit Type Treatment Note Visit Start Time 09:45 Visit Stop Time 10:30 Total Visit Minutes 45 Visit Number 06/09 Number of WOOD HEEL BACK LINER Visits 0 Evaluation Information Evaluation Date 07/27/17 PT-OP-B Current Condition Start: 09/28/17 15:21 Freq: Status: Active Protocol: Document 10/12/17 13:45 DCW (Rec: 10/12/17 18:33 DCW [id number]) Current Condition History of Current Condition Onset Date 02/05/17 History of Current Condition See Pt's initial evaluation in Therapy Source Current Functional Impairments (Reported) Functional Limitations- Mobility/Gait Transfers:W/C<->Mat Stand- pivot: Independent PT-OP-C Subjective Start: 09/28/17 15:21 Freq: Status: Active Protocol: Document 04/22/21 09:45 DCW (Rec: 04/22/21 10:30 DCW [id number]) OP-PT Subjective Patient Comments Patient Comments Pt concerned his legs are just going downhill fast. PT-OP-D Balance Start: 10/12/17 18:11 Freq: Status: Active Protocol: Document 02/04/21 09:45 DCW (Rec: 02/04/21 11:42 DCW [id number]) OP-PT Balance Assessment Standing Balance Standing Balance Comments Double leg, Eyes open: 14 Mejia Fall Scale Copyright Permission PT-OP-E Functional Tests Start: 10/12/17 18:11 Freq: Status: Active Protocol: Document 02/04/21 09:45 DCW (Rec: 02/04/21 11:42 DCW [id number]) Functional Tests 6 Minute Walk Test Distance 60' Device Used 4WW Comments Stopped at 26 PT-OP-G Mobility & Gait Start: 12/23/18 10:02 Freq: Status: Active Protocol: Document 02/04/21 09:45 DCW (Rec: 02/04/21 11:42 DCW [id number]) OP Gait Assessment Gait Gait Assistance Required: Contact Guard Assist Distance (Feet) 60 Assistive Devices Assistive Device Gait Belt,4 Wheeled Walker Gait Deviations General Gait Pattern Antalgic,Ataxic,Decreased Stride Length,Decreased Feet Clearance,Flexed Trunk,Lateral Trunk Lean,Wide Based Gait PT-OP-M Strength Start: 10/12/17 18:11 Freq: Status: Active Protocol: Document 11/05/20 09:45 DCW (Rec: 11/05/20 10:20 DCW [id number]) Hip Strength Hip Manual Muscle Testing Right Flexion (L2) 5 Normal Abduction 4+ Good+ Adduction 5 Normal Left Flexion (L2) 5 Normal Abduction 4+ Good+ Adduction 4+ Good+ Knee Strength Knee Manual Muscle Testing Right Flexion (S2) 4+ Good+ Extension (L3) 4+ Good+ Left Flexion (S2) 5 Normal Extension (L3) 5 Normal Ankle/Foot Strength Ankle and Foot Manual Muscle Testing Right Dorsiflexion (L4) 2 Poor Plantarflexion (S1) 3+ Fair+ Left Dorsiflexion (L4) 4 Good Plantarflexion (S1) 4- Good- PT-OP-Q Treatments Start: 09/28/17 15:21 Freq: Status: Active Protocol: Document 04/22/21 09:45 DCW (Rec: 04/22/21 10:30 DCW [id number]) Therapeutic Activity Therapeutic Activity 1 Name Sit<->stand from low table Gait Training Gait Activity 2 Description Amb /c 4WW Device Used 4WW Level of Assistance SBA Distance/Duration 110' Manual Therapy Treatment Soft Tissue Mobilization Piriformis Body Location L piriformis Mobilization Type Strumming,Sustained Pressure Intensity/Depth Deep Body Position Sidelying Neuro Re-Education Treatment Balance Activities 6 Details Ball/cone pick-up, ball toss 2 Details Tandem Stance Equipment // bars PT-OP-T Assessment and Plan Start: 09/28/17 15:21 Freq: Status: Active Protocol: Document 04/22/21 09:45 DCW (Rec: 04/22/21 10:30 DCW [id number]) Physical Therapy Assessment Impairments Impairments Activity Tolerance,Balance, Functional Activities, Functional Mobility,Gait,ROM, Strength Goals Eight Impairment Unassisted Gait Short Term Goal (STG) Pt to ambulate 300' SBA /s AD STG Duration Met Half-Way Goal (LTG) Pt to ambulate 400' SBA /s AD LTG Duration 05/06/21 Seven Impairment Donis Short Term Goal (STG) Pt to score 22/56 on Donis Balance scale STG Duration Met Half-Way Goal (LTG) Pt to score 35/56 on Donis Balance scale LTG Duration 05/06/21 Six Impairment Static Standing Balance Short Term Goal (STG) Pt to stand independently for 2 minutes STG Duration Met Half-Way Goal (LTG) Pt to stand independently for 3 minutes LTG Duration 06/06/20 Five Impairment 6 MWT Fountain Pen Nibs Inspector Goal (LTG) Pt to ambulate 1000' without rest using 4WW during 6 MWT LTG Duration 05/06/21 - Recent decline Four Impairment Foot slap Short Term Goal (STG) Pt to regularly wear R AFO to limit foot drop and help normalize gait pattern STG Duration Met Three Impairment Transfers Short Term Goal (STG) Pt to transfer independently from mat<->w/c with no assistive devices STG Duration Met Two Impairment Ankle weakness Half-Way Goal (LTG) Pt to display 2/5 MMT in R DF, 4/5 MMT in R PF, and 4+/5 MMT in all other bilateral ankle movements LTG Duration 05/06/21 - recent decline One Impairment Activity tolerance Fountain Pen Nibs Inspector Goal (LTG) Pt to tolerate activity up to 15 minutes without a break LTG Duration 05/06/21 Progress Towards Goals Progress Towards Goals Slow Progress due to Activity Tolerance,Slow Progress due to Medical Issues Assessment Summary Assessment Pt declined with gait tolerance today, not even completing a full lap. Was limited some due to having increased left piriformis pain . Physical Therapy Plan Frequency and Duration Frequency of Treatment 1x/Week Duration of Treatment 3 months Plan of Care Start Date 02/04/21 Plan of Care End Date 05/06/21 Therapeutic Interventions Therapeutic Interventions Aquatic Therapy,Balance Training,Gait Training,Home Exercise Program,Manual Therapy,Neuromuscular Re- education,Soft Tissue Mobilization,Therapeutic Activities,Therapeutic Exercises Next Visit Focus/Plan Next Note Type Treatment Note Next Visit Plan Floor transfers if safe
--- NOTE | 2021-05-13 11:16 | PT.OTN ---
Current Diagnoses Foot drop, right foot (05/13/21) Muscle weakness (generalized) (05/13/21) Unsteadiness on feet (05/13/21) Unspecified abnormalities of gait and mobility (05/13/21) Traumatic subdural hemorrhage with loss of consciousness greater than 24 hours with return to pre-existing conscious level, subsequent encounter (05/13/21) History of falling (05/13/21) Physical Therapy Treatment Note PT-OP-A Visit Information Start: 09/28/17 15:21 Freq: Status: Active Protocol: Document 05/13/21 09:45 DCW (Rec: 05/13/21 11:15 DCW [id number]) Out-Patient Physical Therapy Visit Information Visit Information Visit Type Discharge Summary Visit Start Time 09:45 Visit Stop Time 10:30 Total Visit Minutes 45 Visit Number 06/09 Number of PRODUCTION CONTROL SPECIALIST Visits 0 Evaluation Information Evaluation Date 07/27/17 PT-OP-B Current Condition Start: 09/28/17 15:21 Freq: Status: Active Protocol: Document 10/12/17 13:45 DCW (Rec: 10/12/17 18:33 DCW [id number]) Current Condition History of Current Condition Onset Date 02/05/17 History of Current Condition See Pt's initial evaluation in Therapy Source Current Functional Impairments (Reported) Functional Limitations- Mobility/Gait Transfers:W/C<->Mat Stand- pivot: Independent PT-OP-C Subjective Start: 09/28/17 15:21 Freq: Status: Active Protocol: Document 05/13/21 09:45 DCW (Rec: 05/13/21 09:46 DCW [id number]) OP-PT Subjective Patient Comments Patient Comments My thighs are weak, my legs are numb, I'm just not getting any better, I don't know what else to say. PT-OP-D Balance Start: 10/12/17 18:11 Freq: Status: Active Protocol: Document 05/13/21 09:45 DCW (Rec: 05/13/21 10:28 DCW [id number]) OP-PT Balance Assessment Sitting Balance Static Sitting Balance Ability Good Dynamic Sitting Balance Ability Fair Standing Balance Static Standing Balance Ability Poor Dynamic Standing Balance Ability Poor Standing Balance Comments Double leg, Eyes open: 14 Mejia Fall Scale Copyright Permission PT-OP-E Functional Tests Start: 10/12/17 18:11 Freq: Status: Active Protocol: Document 05/13/21 09:45 DCW (Rec: 05/13/21 10:28 DCW [id number]) Functional Tests 6 Minute Walk Test Distance 191' Device Used 4WW Comments Stopped at 1'54 PT-OP-G Mobility & Gait Start: 12/23/18 10:02 Freq: Status: Active Protocol: Document 05/13/21 09:45 DCW (Rec: 05/13/21 10:28 DCW [id number]) OP Gait Assessment Gait Gait Assistance Required: Contact Guard Assist Distance (Feet) 191 Assistive Devices Assistive Device Gait Belt,4 Wheeled Walker Gait Deviations General Gait Pattern Antalgic,Ataxic,Decreased Stride Length,Decreased Feet Clearance,Flexed Trunk,Lateral Trunk Lean,Wide Based Gait PT-OP-M Strength Start: 10/12/17 18:11 Freq: Status: Active Protocol: Document 05/13/21 09:45 DCW (Rec: 05/13/21 10:28 DCW [id number]) Hip Strength Hip Manual Muscle Testing Right Flexion (L2) 5 Normal Abduction 4+ Good+ Adduction 5 Normal Left Flexion (L2) 5 Normal Abduction 4- Good- Adduction 4+ Good+ Knee Strength Knee Manual Muscle Testing Right Flexion (S2) 4+ Good+ Extension (L3) 4+ Good+ Left Flexion (S2) 5 Normal Extension (L3) 5 Normal Ankle/Foot Strength Ankle and Foot Manual Muscle Testing Right Dorsiflexion (L4) 2- Poor- Plantarflexion (S1) 3+ Fair+ Left Dorsiflexion (L4) 4- Good- Plantarflexion (S1) 4- Good- PT-OP-Q Treatments Start: 09/28/17 15:21 Freq: Status: Active Protocol: Document 05/13/21 09:45 DCW (Rec: 05/13/21 11:15 DCW [id number]) Neuro Re-Education Treatment Other Activities 1 Details Standing balance testing, 6 MWT, MMT PT-OP-T Assessment and Plan Start: 09/28/17 15:21 Freq: Status: Active Protocol: Document 05/13/21 09:45 DCW (Rec: 05/13/21 11:15 DCW [id number]) Physical Therapy Assessment Impairments Impairments Activity Tolerance,Balance, Functional Activities, Functional Mobility,Gait,ROM, Strength Goals Eight Impairment Unassisted Gait Short Term Goal (STG) Pt to ambulate 300' SBA /s AD STG Duration Met Penitentiary Goal (LTG) Pt to ambulate 400' SBA /s AD LTG Duration 05/06/21 Seven Impairment Donis Short Term Goal (STG) Pt to score 22/56 on Donis Balance scale STG Duration Met Guide Alpine Goal (LTG) Pt to score 35/56 on Donis Balance scale LTG Duration 05/06/21 Six Impairment Static Standing Balance Short Term Goal (STG) Pt to stand independently for 2 minutes STG Duration Met Penitentiary Goal (LTG) Pt to stand independently for 3 minutes LTG Duration 06/06/20 Five Impairment 6 MWT Penitentiary Goal (LTG) Pt to ambulate 1000' without rest using 4WW during 6 MWT LTG Duration 05/06/21 - Recent decline Four Impairment Foot slap Short Term Goal (STG) Pt to regularly wear R AFO to limit foot drop and help normalize gait pattern STG Duration Met Three Impairment Transfers Short Term Goal (STG) Pt to transfer independently from mat<->w/c with no assistive devices STG Duration Met Two Impairment Ankle weakness Guide Alpine Goal (LTG) Pt to display 2/5 MMT in R DF, 4/5 MMT in R PF, and 4+/5 MMT in all other bilateral ankle movements LTG Duration 05/06/21 - recent decline One Impairment Activity tolerance Guide Alpine Goal (LTG) Pt to tolerate activity up to 15 minutes without a break LTG Duration 05/06/21 Progress Towards Goals Progress Towards Goals Slow Progress due to Activity Tolerance,Slow Progress due to Medical Issues Assessment Summary Assessment Pt unfortunately has not made any significant progress since last reassessment. Although his recent decline over the last six months is likely due to his ryan with a recurrent UTI, there is currently no medical justification for continued therapy due to progress plateau. Pt was very disappointed but understanding . Pt noted that he would be working hard to progress independently in order to return for further therapy. Pt will be discharged at this time from skilled physical therapy, and will require a new referral in order to return in the future. Physical Therapy Plan Frequency and Duration Frequency of Treatment 1x/Week Duration of Treatment one day Plan of Care Start Date 05/13/21 Plan of Care End Date 05/14/21 Therapeutic Interventions Therapeutic Interventions Aquatic Therapy,Balance Training,Gait Training,Home Exercise Program,Manual Therapy,Neuromuscular Re- education,Soft Tissue Mobilization,Therapeutic Activities,Therapeutic Exercises Discharge Physical Therapy Discharge Reasons Plateau in Progress Next Visit Focus/Plan Next Note Type Discharge Summary
--- NOTE | 2021-05-13 11:16 | PT.OPPOC ---
Physical, Occupational & Speech Therapy At [facility] Current Diagnoses Foot drop, right foot (05/13/21) Muscle weakness (generalized) (05/13/21) Unsteadiness on feet (05/13/21) Unspecified abnormalities of gait and mobility (05/13/21) Traumatic subdural hemorrhage with loss of consciousness greater than 24 hours with return to pre-existing conscious level, subsequent encounter (05/13/21) History of falling (05/13/21) Visit Care Team Role Provider Type Elver Eubanks MD Attending Provider Physician Family Provider Primary Care Provider Specialty: Internal Medicine Address: [address] [place] [address], [facility] Email: [email or web address] Plan Of Care PT-OP-T Assessment and Plan Start: 09/28/17 15:21 Freq: Status: Active Protocol: Document 05/13/21 09:45 DCW (Rec: 05/13/21 11:15 DCW [id number]) Physical Therapy Assessment Impairments Impairments Activity Tolerance,Balance, Functional Activities, Functional Mobility,Gait,ROM, Strength Goals Eight Impairment Unassisted Gait Short Term Goal (STG) Pt to ambulate 300' SBA /s AD STG Duration Met [facility] Goal (LTG) Pt to ambulate 400' SBA /s AD LTG Duration 05/06/21 Seven Impairment Donis Short Term Goal (STG) Pt to score 22/56 on Odnis Balance scale STG Duration Met Head Of Ict Goal (LTG) Pt to score 35/56 on Donis Balance scale LTG Duration 05/06/21 Six Impairment Static Standing Balance Short Term Goal (STG) Pt to stand independently for 2 minutes STG Duration Met [facility] Goal (LTG) Pt to stand independently for 3 minutes LTG Duration 06/06/20 Five Impairment 6 MWT Head Of Ict Goal (LTG) Pt to ambulate 1000' without rest using 4WW during 6 MWT LTG Duration 05/06/21 - Recent decline Four Impairment Foot slap Short Term Goal (STG) Pt to regularly wear R AFO to limit foot drop and help normalize gait pattern STG Duration Met Three Impairment Transfers Short Term Goal (STG) Pt to transfer independently from mat<->w/c with no assistive devices STG Duration Met Two Impairment Ankle weakness Head Of Ict Goal (LTG) Pt to display 2/5 MMT in R DF, 4/5 MMT in R PF, and 4+/5 MMT in all other bilateral ankle movements LTG Duration 05/06/21 - recent decline One Impairment Activity tolerance [facility] Goal (LTG) Pt to tolerate activity up to 15 minutes without a break LTG Duration 05/06/21 Progress Towards Goals Progress Towards Goals Slow Progress due to Activity Tolerance,Slow Progress due to Medical Issues Assessment Summary Assessment Pt unfortunately has not made any significant progress since last reassessment. Although his recent decline over the last six months is likely due to his ryan with a recurrent UTI, there is currently no medical justification for continued therapy due to progress plateau. Pt was very disappointed but understanding . Pt noted that he would be working hard to progress independently in order to return for further therapy. Pt will be discharged at this time from skilled physical therapy, and will require a new referral in order to return in the future. Physical Therapy Plan Frequency and Duration Frequency of Treatment 1x/Week Duration of Treatment one day Plan of Care Start Date 05/13/21 Plan of Care End Date 05/14/21 Therapeutic Interventions Therapeutic Interventions Aquatic Therapy,Balance Training,Gait Training,Home Exercise Program,Manual Therapy,Neuromuscular Re- education,Soft Tissue Mobilization,Therapeutic Activities,Therapeutic Exercises Discharge Physical Therapy Discharge Reasons Plateau in Progress Next Visit Focus/Plan Next Note Type Discharge Summary Plan of Care Dates Plan of Care Start Date 05/13/21 Plan of Care End Date 05/14/21 Electronically Signed by: Jose Martin Freitas, PT 05/13/21 1948 Please Sign and Return: I have reviewed this Plan of Care and certify that the skilled therapy services above are required to meet the patient?s needs. Physician Signature Date Printed Name and Credentials Clinical Instructor Signature Printed Name and Credentials
== END 2021-07-01 08:54 ==
LOC: PHYS 09:45
PROVIDERS: Family Provider Internal Medicine; PCP Internal Medicine; Visit Provider Internal Medicine
DX: S06.5X Traumatic subdural hemorrhage (principal); R26.81 Unsteadiness on feet; R26.9 Unspecified abnormalities of gait and mobility; M62.81 Muscle weakness (generalized); Z91.81 History of falling; M21.371 Foot drop, right foot
CPT/HCPCS: 97110; 97112; 97116; 97140; 97530; 97535

== ENCOUNTER → 2021-06-05 07:40 | Outpatient (CLI) | payer MEDICARE, BC, SELFPAY ==
[2021-04-11 10:38] VITALS: BMI 24.7
--- NOTE | 2021-06-05 07:44 | DI.ECHO.S_ITS ---
[facility]---------+ [facility] +---------+ : : [address] : : : : [id number] : : : : Phone: [phone]+ Echocardiogram Report + + :Name: JOSEPH HOFFMAN Study Date: 06/05/2021 Height: 73.5 in: :[facility] ReadingLocation: Weight: 200 lb : : Gender: Male BSA: 2.2 m2 : :: 1940 Age: 81 yrs BP: 127/76 mmHg: :Reason For Study: Chronic systolic congestive heart failure : :Ordering Physician: : :COLE Performed By: Humberto Cueva : :Referring: MOSHE GEE : + + Interpretation Summary The study quality was technically difficult. The ejection fraction is estimated to be 50-55%. There are no obvious focal wall motion abnormalities noted but poor endocardial definition reduces the sensitivity for the detection of such. The left atrium is moderately dilated. The right atrium is severely dilated. There is mild mitral regurgitation. There is mild tricuspid regurgitation. Consider ESPINOZA if valvular heart dz. is suspected. Procedure: A two-dimensional transthoracic echocardiogram with color flow and Doppler was performed. The subcostal views were difficult to obtain and are suboptimal in quality. The suprasternal notch views were difficult to obtain and are suboptimal in quality. Comparison is made with the echocardiogram of 05/22/2014. Image aquisition technically difficult,. The study quality was technically difficult. The patient was in atrial fibrillation with heart rates between 62 - 80 bpm during the exam. Left Ventricle: The left ventricle is normal in size and wall thickness. The ejection fraction is estimated to be 50-55%. There are no obvious focal wall motion abnormalities noted but poor endocardial definition reduces the sensitivity for the detection of such. Diastolic function could not be accurately assessed due to atrial fibrillation. Right Ventricle: The right ventricle is normal in size and function. Atria: The left atrium is moderately dilated. The right atrium is severely dilated. Mitral Valve: The mitral valve is normal. There is mild mitral regurgitation. Aortic Valve: The aortic valve is trileaflet. The aortic valve opens well. There is trace aortic regurgitation. Tricuspid Valve: The tricuspid valve is normal. There is mild tricuspid regurgitation. Right ventricular systolic pressure is estimated to be 14 mmHg plus the clinically estimated CVP which cannot be estimated on this exam. Pulmonic Valve: The pulmonic valve is not well seen, but is grossly normal. Great Vessels: The aortic root is normal size. The ascending aorta is normal in size. The aortic arch could not be visualized. The inferior vena cava was not well visualized. Pericardium/ Pleura There is no pericardial effusion. There is no pleural effusion. MMode/2D Measurements & Calculations LVIDd: 3.5 cm LVOT diam: 2.0 cm LVIDs: 2.8 cm Ao root diam: 3.6 cm FS: 20.0 % asc Aorta Diam: 3.2 cm IVSd: 1.1 cm LVPWd: 1.3 cm LV agee. diameter/BSA (cm/m^2): 1.6 LV sys. diameter/BSA (cm/m^2): 1.3 LA A2 area: 30.6 cm2 RA long axis: 6.9 cm LA A4 area: 24.4 cm2 LA length (vol): 6.5 cm LA vol: 97.8 ml LA vol index: 45.2 ml/m2 RVD1 (basal): 3.6 cm LVLs ap4: 5.6 cm TAPSE: 2.1 cm LVLd ap2: 7.1 cm LVLs ap2: 5.9 cm Doppler Measurements & Calculations Ao V2 max: 88.0 cm/sec LVOT Max Mohan: 86.4 cm/sec Ao V2 mean: 68.0 cm/sec LV V1 max P.0 mmHg Ao max P.0 mmHg LV V1 VTI: 15.2 cm Ao mean P.0 mmHg LYNN(I,D): 2.8 cm2 Ao V2 VTI: 16.8 cm LYNN(V,D): 3.1 cm2 sev ratio: 0.91 LYNN indexed to BSA (cm^2/m^2): 1.3 MV E max mohan: 86.8 cm/sec TR max mohan: 190.0 cm/sec MV dec time: 0.19 sec TR max P.4 mmHg SV(LVOT): 47.8 ml AV VR_phl: 0.98 LYNN(VTI)/BSA_phl: 1.3 Reading Physician:10:05 AM
== END ==
PROVIDERS: PCP Internal Medicine; Referring Provider Internal Medicine; Visit Provider Internal Medicine
DX: I50.22 Chronic systolic (congestive) heart failure (principal); I08.1 Rheumatic disorders of both mitral and tricuspid valves
CPT/HCPCS: 93306

== ENCOUNTER → 2021-08-27 07:02 | Outpatient (CLI) | payer MEDICARE, BC, SELFPAY ==
[2021-04-11 10:38] VITALS: BMI 24.7
[2021-08-27 07:38] LABS: Appearance Urine UA CLEAR; Bilirubin Urine UA NEGATIVE (NEGATIVE); Color Urine UA YELLOW; Glucose Urine UA NEGATIVE (Negative); Ketones Urine UA NEGATIVE (NEGATIVE); Leukocyte Esterase Urine UA NEGATIVE (NEGATIVE); Nitrite Urine UA NEGATIVE (Negative); Occult Blood Urine UA TRACE-INTACT (Negative); Protein Urine UA NEGATIVE (Negative); Urobilinogen Urine UA 0.2 E.U./dL (0.2); pH Urine UA 6.5 (4.5-8.0)
[2021-08-27 07:45] LABS: Bacteria Urine None Seen; Culture Indicated Urine Cult Not Indicated; RBC Urine None Seen (0-5/HPF); Urine Comments Microscopic Normal; WBC Urine None Seen (0-5/HPF)
[2021-08-27 08:19] LABS: Prostate Specific Antigen 3.24 ng/mL (0.10-4.00)
== END ==
PROVIDERS: PCP Internal Medicine; Referring Provider Urology; Visit Provider Urology
DX: R97.20 Elevated prostate specific antigen [PSA] (principal); N39.0 Urinary tract infection, site not specified; R30.0 Dysuria
CPT/HCPCS: 36415; 81001; 84153

== ENCOUNTER → 2022-02-10 06:37 | Outpatient (CLI) | payer MEDICARE, BC, SELFPAY ==
[2021-12-30 15:17] VITALS: BMI 24.7
[2022-02-10 08:23] LABS: Hemoglobin 14.3 g/dL (13.5-17.5); Mean Corpuscular HGB Conc 34.9 % (30-36); Mean Corpuscular Hemoglobin 31.6 PG (26-34); Mean Corpuscular Volume 90.4 fL (80-100); Platelet Count 222 X10^3/uL (150-400); Red Blood Cell Count 4.54 X10^6/uL (4.5-5.9); Red Cell Distribution Width 13.7 % (11.6-14.8); White Blood Cell Count 5.3 X10^3/uL (4.5-11.0)
[2022-02-10 08:41] LABS: INR 2.9 (0.9-1.3); Prothrombin Time 33.3 SECONDS (10.1-12.7)
[2022-02-10 08:48] LABS: Alanine Aminotransferase 19 IU/L (<50); Albumin 4.1 g/dL (3.5-5.0); Albumin Globulin Ratio 1.1 (1.0-2.8); Alkaline Phosphatase 73 U/L (38-126); Aspartate Aminotransferase 27 IU/L (17-59); BUN Creatinine Ratio 9.4 (6-22); Bilirubin Total 1.1 mg/dL (0.2-1.3); Blood Urea Nitrogen 10 mg/dL (9-20); Calcium 8.7 mg/dL (8.4-10.2); Carbon Dioxide 22 mmol/L (22-32); Chloride 104 mmol/L (98-107); Cholesterol 150 mg/dL (140-199); Estimated Glomerular Filt Rate > 60 mL/min (>60); Globulin 3.6 g/dL (1.7-4.1); Glucose 75 mg/dL (80-110); HDL Cholesterol 32 mg/dL (40-60); HEMOLYSIS 18 (0-50); LDL Cholesterol Calculated 103 mg/dL (<100); Potassium 3.9 mmol/L (3.4-5.1); Sodium 136 mmol/L (137-145); Total Protein 7.7 g/dL (6.3-8.2); Triglycerides 77 mg/dL (35-150)
[2022-02-10 09:16] LABS: Prostate Specific Antigen 3.57 ng/mL (0.10-4.00)
[2022-02-10 09:17] LABS: TSH w/ Reflex to FT4 0.65 uIU/mL (0.47-4.68)
[2022-02-10 09:36] LABS: Vitamin B12 > 1000 pg/mL (239-931)
== END ==
PROVIDERS: PCP Internal Medicine; Referring Provider Urology; Visit Provider Urology
DX: I10 Essential (primary) hypertension (principal); I67.9 Cerebrovascular disease, unspecified; R73.01 Impaired fasting glucose; R33.9 Retention of urine, unspecified; E03.9 Hypothyroidism, unspecified; E78.2 Mixed hyperlipidemia; E53.8 Deficiency of other specified B group vitamins; N52.9 Male erectile dysfunction, unspecified; R97.20 Elevated prostate specific antigen [PSA]; I48.21 Permanent atrial fibrillation; Z79.01 Long term (current) use of anticoagulants
CPT/HCPCS: 36415; 80053; 80061; 82607; 83036; 84153; 84443; 85027; 85610

== ENCOUNTER → 2022-03-03 08:56 | Outpatient (CLI) | payer MEDICARE, BC, SELFPAY ==
[2021-12-30 15:17] VITALS: BMI 24.7
[2022-03-03 10:08] LABS: INR 3.2 (0.9-1.3); Prothrombin Time 37.5 SECONDS (10.1-12.7)
== END ==
PROVIDERS: PCP Internal Medicine; Referring Provider Internal Medicine; Visit Provider Internal Medicine
DX: Z79.01 Long term (current) use of anticoagulants (principal); I48.20 Chronic atrial fibrillation, unspecified; Z51.81 Encounter for therapeutic drug level monitoring
CPT/HCPCS: 36415; 85610

== ENCOUNTER → 2022-03-17 07:47 | Outpatient (CLI) | payer MEDICARE, BC, SELFPAY ==
[2021-12-30 15:17] VITALS: BMI 24.7
[2022-03-17 09:08] LABS: INR 3.3 (0.9-1.3); Prothrombin Time 38.8 SECONDS (10.1-12.7)
== END ==
PROVIDERS: PCP Internal Medicine; Referring Provider Internal Medicine; Visit Provider Internal Medicine
DX: I48.20 Chronic atrial fibrillation, unspecified (principal); Z51.81 Encounter for therapeutic drug level monitoring; Z79.01 Long term (current) use of anticoagulants
CPT/HCPCS: 36415; 85610

== ENCOUNTER → 2022-04-09 07:35 | Outpatient (CLI) | payer MEDICARE, BC, SELFPAY ==
[2021-12-30 15:17] VITALS: BMI 24.7
[2022-04-09 09:17] LABS: INR 2.2 (0.9-1.3); Prothrombin Time 25.1 SECONDS (10.1-12.7)
== END ==
PROVIDERS: PCP Internal Medicine; Referring Provider Internal Medicine; Visit Provider Internal Medicine
DX: I48.20 Chronic atrial fibrillation, unspecified (principal); Z51.81 Encounter for therapeutic drug level monitoring; Z79.01 Long term (current) use of anticoagulants
CPT/HCPCS: 36415; 85610

== ENCOUNTER → 2022-05-05 07:14 | Outpatient (CLI) | payer MEDICARE, BC, SELFPAY ==
[2021-12-30 15:17] VITALS: BMI 24.7
[2022-05-05 08:14] LABS: INR 2.8 (0.9-1.3)
== END ==
PROVIDERS: PCP Internal Medicine; Referring Provider Internal Medicine; Visit Provider Internal Medicine
DX: Z79.01 Long term (current) use of anticoagulants (principal); I48.20 Chronic atrial fibrillation, unspecified; Z51.81 Encounter for therapeutic drug level monitoring
CPT/HCPCS: 36415; 85610

== ENCOUNTER → 2022-05-27 08:24 | Outpatient (CLI) | payer MEDICARE, BC, SELFPAY ==
[2021-12-30 15:17] VITALS: BMI 24.7
[2022-05-27 09:19] LABS: INR 2.3 (0.9-1.3)
[2022-05-27 10:39] LABS: Prothrombin Time 27.2 SECONDS (10.1-12.7)
== END ==
PROVIDERS: PCP Internal Medicine; Referring Provider Internal Medicine; Visit Provider Internal Medicine
DX: Z79.01 Long term (current) use of anticoagulants (principal); I48.20 Chronic atrial fibrillation, unspecified; Z51.81 Encounter for therapeutic drug level monitoring
CPT/HCPCS: 36415; 85610

== ENCOUNTER → 2022-06-17 06:42 | Outpatient (CLI) | payer MEDICARE, BC, SELFPAY ==
[2021-12-30 15:17] VITALS: BMI 24.7
[2022-06-17 09:30] LABS: INR 2.8 (0.9-1.3); Prothrombin Time 32.9 SECONDS (10.1-12.7)
== END ==
PROVIDERS: PCP Internal Medicine; Referring Provider Internal Medicine; Visit Provider Internal Medicine
DX: I48.20 Chronic atrial fibrillation, unspecified (principal); Z51.81 Encounter for therapeutic drug level monitoring; Z79.01 Long term (current) use of anticoagulants
CPT/HCPCS: 36415; 85610

== ENCOUNTER → 2022-07-08 06:46 | Outpatient (CLI) | payer MEDICARE, BC, SELFPAY ==
[2021-12-30 15:17] VITALS: BMI 24.7
[2022-07-08 07:27] LABS: INR 3.1 (0.9-1.3)
== END ==
PROVIDERS: PCP Internal Medicine; Referring Provider Internal Medicine; Visit Provider Internal Medicine
DX: Z79.01 Long term (current) use of anticoagulants (principal); I48.20 Chronic atrial fibrillation, unspecified; Z51.81 Encounter for therapeutic drug level monitoring
CPT/HCPCS: 36415; 85610

== ENCOUNTER → 2022-07-30 07:48 | Outpatient (CLI) | payer MEDICARE, BC, SELFPAY ==
[2021-12-30 15:17] VITALS: BMI 24.7
[2022-07-30 09:55] LABS: INR 2.9 (0.9-1.3); Prothrombin Time 33.1 SECONDS (10.1-12.7)
== END ==
PROVIDERS: PCP Internal Medicine; Referring Provider Internal Medicine; Visit Provider Internal Medicine
DX: Z51.81 Encounter for therapeutic drug level monitoring (principal); Z79.01 Long term (current) use of anticoagulants
CPT/HCPCS: 36415; 85610

== ENCOUNTER → 2022-08-20 06:50 | Outpatient (CLI) | payer MEDICARE, BC, SELFPAY ==
[2021-12-30 15:17] VITALS: BMI 24.7
[2022-08-20 08:28] LABS: INR 3.3 (0.9-1.3); Prothrombin Time 38.2 SECONDS (10.1-12.7)
== END ==
PROVIDERS: PCP Internal Medicine; Referring Provider Internal Medicine; Visit Provider Internal Medicine
DX: Z79.01 Long term (current) use of anticoagulants (principal); Z51.81 Encounter for therapeutic drug level monitoring
CPT/HCPCS: 36415; 85610

== ENCOUNTER → 2022-09-10 07:15 | Outpatient (CLI) | payer MEDICARE, BC, SELFPAY ==
[2021-12-30 15:17] VITALS: BMI 24.7
[2022-09-10 08:55] LABS: INR 2.6 (0.9-1.3); Prothrombin Time 30.5 SECONDS (10.1-12.7)
== END ==
PROVIDERS: PCP Internal Medicine; Referring Provider Internal Medicine; Visit Provider Internal Medicine
DX: Z51.81 Encounter for therapeutic drug level monitoring (principal); Z79.01 Long term (current) use of anticoagulants
CPT/HCPCS: 36415; 85610

== ENCOUNTER → 2022-10-01 06:36 | Outpatient (CLI) | payer MEDICARE, BC, SELFPAY ==
[2021-12-30 15:17] VITALS: BMI 24.7
[2022-10-01 08:34] LABS: Hematocrit 40.2 % (41-53); Hemoglobin 14.2 g/dL (13.5-17.5); Mean Corpuscular HGB Conc 35.2 % (30-36); Mean Corpuscular Hemoglobin 32.3 PG (26-34); Mean Corpuscular Volume 91.9 fL (80-100); Platelet Count 200 X10^3/uL (150-400); Red Blood Cell Count 4.38 X10^6/uL (4.5-5.9); White Blood Cell Count 6.2 X10^3/uL (4.5-11.0)
[2022-10-01 08:53] LABS: INR 2.9 (0.9-1.3); Prothrombin Time 33.5 SECONDS (10.1-12.7)
[2022-10-01 09:25] LABS: Alanine Aminotransferase 22 IU/L (<50); Albumin Globulin Ratio 1.3 (1.0-2.8); Alkaline Phosphatase 75 U/L (38-126); Aspartate Aminotransferase 24 IU/L (17-59); BUN Creatinine Ratio 11.1 (6-22); Bilirubin Total 1.1 mg/dL (0.2-1.3); Blood Urea Nitrogen 12 mg/dL (9-20); Carbon Dioxide 26 mmol/L (22-32); Chloride 104 mmol/L (98-107); Cholesterol 147 mg/dL (140-199); Estimated Glomerular Filt Rate > 60 mL/min (>60); Globulin 3.2 g/dL (1.7-4.1); Glucose 67 mg/dL (80-110); HDL Cholesterol 35 mg/dL (40-60); HEMOLYSIS < 15 (0-50); LDL Cholesterol Calculated 89 mg/dL (<100); Sodium 137 mmol/L (137-145); Total Protein 7.2 g/dL (6.3-8.2); Triglycerides 117 mg/dL (35-150)
[2022-10-01 09:55] LABS: TSH w/ Reflex to FT4 0.45 uIU/mL (0.47-4.68)
[2022-10-01 10:57] LABS: Free T4, Direct Thyroxine 2.66 ng/dL (0.78-2.19)
== END ==
PROVIDERS: Urology; PCP Internal Medicine; Referring Provider Internal Medicine; Visit Provider Internal Medicine
DX: E03.9 Hypothyroidism, unspecified (principal); I50.22 Chronic systolic (congestive) heart failure; R97.20 Elevated prostate specific antigen [PSA]; E78.2 Mixed hyperlipidemia; I10 Essential (primary) hypertension; Z51.81 Encounter for therapeutic drug level monitoring; Z79.01 Long term (current) use of anticoagulants
CPT/HCPCS: 36415; 80053; 80061; 84153; 84439; 84443; 85027; 85610

== ENCOUNTER → 2022-10-22 06:51 | Outpatient (CLI) | payer MEDICARE, BC, SELFPAY ==
[2021-12-30 15:17] VITALS: BMI 24.7
[2022-10-22 08:09] LABS: INR 2.5 (0.9-1.3); Prothrombin Time 28.9 SECONDS (10.1-12.7)
== END ==
PROVIDERS: PCP Internal Medicine; Referring Provider Internal Medicine; Visit Provider Internal Medicine
DX: Z51.81 Encounter for therapeutic drug level monitoring (principal); Z79.01 Long term (current) use of anticoagulants
CPT/HCPCS: 36415; 85610

== ENCOUNTER → 2022-11-12 06:53 | Outpatient (CLI) | payer MEDICARE, BC, SELFPAY ==
[2021-12-30 15:17] VITALS: BMI 24.7
[2022-11-12 07:57] LABS: INR 2.6 (0.9-1.3); Prothrombin Time 30.1 SECONDS (10.1-12.7)
== END ==
PROVIDERS: PCP Internal Medicine; Referring Provider Internal Medicine; Visit Provider Internal Medicine
DX: Z79.01 Long term (current) use of anticoagulants (principal); Z51.81 Encounter for therapeutic drug level monitoring
CPT/HCPCS: 36415; 85610

== ENCOUNTER → 2022-12-03 06:37 | Outpatient (CLI) | payer MEDICARE, BC, SELFPAY ==
[2021-12-30 15:17] VITALS: BMI 24.7
[2022-12-03 09:18] LABS: INR 2.6 (0.9-1.3); Prothrombin Time 29.9 SECONDS (10.1-12.7)
[2022-12-03 10:10] LABS: Prostate Specific Antigen 5.32 ng/mL (0.10-4.00)
== END ==
PROVIDERS: PCP Internal Medicine; Referring Provider Urology; Visit Provider Internal Medicine
DX: Z51.81 Encounter for therapeutic drug level monitoring (principal); R97.20 Elevated prostate specific antigen [PSA]; Z79.01 Long term (current) use of anticoagulants
CPT/HCPCS: 36415; 84153; 85610

== ENCOUNTER → 2022-12-24 06:34 | Outpatient (CLI) | payer MEDICARE, BC, SELFPAY ==
[2021-12-30 15:17] VITALS: BMI 24.7
[2022-12-24 08:13] LABS: INR 2.5 (0.9-1.3); Prothrombin Time 29.1 SECONDS (10.1-12.7)
[2022-12-24 08:57] LABS: TSH w/ Reflex to FT4 0.57 uIU/mL (0.47-4.68)
== END ==
PROVIDERS: PCP Internal Medicine; Referring Provider Internal Medicine; Visit Provider Internal Medicine
DX: I82.409 Acute embolism and thrombosis of unspecified deep veins of unspecified lower extremity (principal); E03.9 Hypothyroidism, unspecified
CPT/HCPCS: 36415; 84443; 85610

== ENCOUNTER → 2023-01-14 06:38 | Outpatient (CLI) | payer MEDICARE, BC, SELFPAY ==
[2021-12-30 15:17] VITALS: BMI 24.7
[2023-01-14 08:06] LABS: INR 2.8 (0.9-1.3); Prothrombin Time 31.9 SECONDS (10.1-12.7)
== END ==
PROVIDERS: PCP Internal Medicine; Referring Provider Internal Medicine; Visit Provider Internal Medicine
DX: I82.409 Acute embolism and thrombosis of unspecified deep veins of unspecified lower extremity (principal)
CPT/HCPCS: 36415; 85610

== ENCOUNTER → 2023-02-04 06:41 | Outpatient (CLI) | payer MEDICARE, BC, SELFPAY ==
[2021-12-30 15:17] VITALS: BMI 24.7
[2023-02-04 08:19] LABS: INR 2.7 (0.9-1.3); Prothrombin Time 31.7 SECONDS (10.1-12.7)
== END ==
PROVIDERS: PCP Internal Medicine; Referring Provider Internal Medicine; Visit Provider Internal Medicine
DX: I48.20 Chronic atrial fibrillation, unspecified (principal)
CPT/HCPCS: 36415; 85610

== ENCOUNTER → 2023-02-25 06:24 | Outpatient (CLI) | payer MEDICARE, BC, SELFPAY ==
[2021-12-30 15:17] VITALS: BMI 24.7
[2023-02-25 08:42] LABS: INR 2.5 (0.9-1.3); Prothrombin Time 29.4 SECONDS (10.1-12.7)
== END ==
PROVIDERS: PCP Internal Medicine; Referring Provider Internal Medicine; Visit Provider Internal Medicine
DX: I82.409 Acute embolism and thrombosis of unspecified deep veins of unspecified lower extremity (principal)
CPT/HCPCS: 36415; 85610

== ENCOUNTER → 2023-03-19 06:30 | Outpatient (CLI) | payer MEDICARE, BC, SELFPAY ==
[2021-12-30 15:17] VITALS: BMI 24.7
[2023-03-19 08:15] LABS: INR 2.6 (0.9-1.3)
[2023-03-19 08:25] LABS: Prothrombin Time 30.2 SECONDS (10.1-12.7)
== END ==
PROVIDERS: PCP Internal Medicine; Referring Provider Internal Medicine; Visit Provider Internal Medicine
DX: Z79.01 Long term (current) use of anticoagulants (principal)
CPT/HCPCS: 36415; 85610

== ENCOUNTER → 2023-04-08 06:26 | Outpatient (CLI) | payer MEDICARE, BC, SELFPAY ==
[2021-12-30 15:17] VITALS: BMI 24.7
[2023-04-08 08:31] LABS: INR 2.7 (0.9-1.3); Prothrombin Time 31.1 SECONDS (10.1-12.7)
== END ==
PROVIDERS: PCP Internal Medicine; Referring Provider Internal Medicine; Visit Provider Internal Medicine
DX: I82.409 Acute embolism and thrombosis of unspecified deep veins of unspecified lower extremity (principal)
CPT/HCPCS: 36415; 85610

== ENCOUNTER → 2023-04-29 07:11 | Outpatient (CLI) | payer MEDICARE, BC, SELFPAY ==
[2021-12-30 15:17] VITALS: BMI 24.7
[2023-04-29 08:14] LABS: Hematocrit 44.3 % (41-53); Hemoglobin 15.2 g/dL (13.5-17.5); Mean Corpuscular HGB Conc 34.4 % (30-36); Mean Corpuscular Hemoglobin 32.4 PG (26-34); Mean Corpuscular Volume 94.2 fL (80-100); Platelet Count 220 X10^3/uL (150-400); Red Cell Distribution Width 14.2 % (11.6-14.8); White Blood Cell Count 6.4 X10^3/uL (4.5-11.0)
[2023-04-29 08:27] LABS: INR 2.4 (0.9-1.3); Prothrombin Time 28.3 SECONDS (9.4-12.5)
[2023-04-29 08:32] LABS: Alanine Aminotransferase 28 IU/L (<50); Albumin 4.6 g/dL (3.5-5.0); Albumin Globulin Ratio 1.2 (1.0-2.8); Alkaline Phosphatase 76 U/L (38-126); Aspartate Aminotransferase 32 IU/L (17-59); BUN Creatinine Ratio 14.6 (6-22); Bilirubin Total 1.4 mg/dL (0.2-1.3); Blood Urea Nitrogen 14 mg/dL (9-20); Calcium 9.8 mg/dL (8.4-10.2); Carbon Dioxide 23 mmol/L (22-32); Chloride 103 mmol/L (98-107); Cholesterol 178 mg/dL (140-199); Estimated Glomerular Filt Rate > 60 mL/min (>60); Glucose 105 mg/dL (80-110); HDL Cholesterol 35 mg/dL (40-60); HEMOLYSIS < 15 (0-50); LDL Cholesterol Calculated 118 mg/dL (<100); Potassium 4.2 mmol/L (3.4-5.1); Sodium 137 mmol/L (137-145); Total Protein 8.6 g/dL (6.3-8.2); Triglycerides 124 mg/dL (35-150)
[2023-04-29 09:04] LABS: TSH w/ Reflex to FT4 3.98 uIU/mL (0.47-4.68)
== END ==
PROVIDERS: PCP Internal Medicine; Referring Provider Internal Medicine; Visit Provider Internal Medicine
DX: I82.409 Acute embolism and thrombosis of unspecified deep veins of unspecified lower extremity (principal); E03.9 Hypothyroidism, unspecified; I48.20 Chronic atrial fibrillation, unspecified; E78.2 Mixed hyperlipidemia; I10 Essential (primary) hypertension
CPT/HCPCS: 36415; 80053; 80061; 84443; 85027; 85610

== ENCOUNTER → 2023-05-20 06:30 | Outpatient (CLI) | payer MEDICARE, BC, SELFPAY ==
[2021-12-30 15:17] VITALS: BMI 24.7
== END ==
PROVIDERS: PCP Internal Medicine; Referring Provider Internal Medicine; Visit Provider Internal Medicine
DX: I82.409 Acute embolism and thrombosis of unspecified deep veins of unspecified lower extremity (principal)
CPT/HCPCS: 36415; 85610

== ENCOUNTER → 2023-06-10 06:23 | Outpatient (CLI) | payer MEDICARE, BC, SELFPAY ==
[2021-12-30 15:17] VITALS: BMI 24.7
[2023-06-10 08:45] LABS: INR 2.7 (0.9-1.3); Prothrombin Time 31.5 SECONDS (9.4-12.5)
== END ==
PROVIDERS: PCP Internal Medicine; Referring Provider Internal Medicine; Visit Provider Internal Medicine
DX: Z79.01 Long term (current) use of anticoagulants (principal); I48.20 Chronic atrial fibrillation, unspecified
CPT/HCPCS: 36415; 85610

== ENCOUNTER → 2023-07-01 06:37 | Outpatient (CLI) | payer MEDICARE, BC, SELFPAY ==
[2021-12-30 15:17] VITALS: BMI 24.7
[2023-07-01 07:53] LABS: INR 2.3 (0.9-1.3); Prothrombin Time 26.8 SECONDS (9.4-12.5)
[2023-07-04 05:09] LABS: PSA Free % 23.7 % (.); PSA, Total 4.9 ng/mL (0.0-4.0)
== END ==
PROVIDERS: PCP Internal Medicine; Referring Provider Urology; Visit Provider Urology
DX: Z51.81 Encounter for therapeutic drug level monitoring (principal); I48.20 Chronic atrial fibrillation, unspecified; Z79.01 Long term (current) use of anticoagulants
CPT/HCPCS: 36415; 84153; 84154; 85610

== ENCOUNTER → 2023-07-23 06:13 | Outpatient (CLI) | payer MEDICARE, BC, SELFPAY ==
[2021-12-30 15:17] VITALS: BMI 24.7
[2023-07-23 08:32] LABS: INR 2.3 (0.9-1.3); Prothrombin Time 26.5 SECONDS (9.4-12.5)
== END ==
PROVIDERS: PCP Internal Medicine; Referring Provider Internal Medicine; Visit Provider Internal Medicine
DX: I48.20 Chronic atrial fibrillation, unspecified (principal); N40.1 Benign prostatic hyperplasia with lower urinary tract symptoms; R97.20 Elevated prostate specific antigen [PSA]; R33.9 Retention of urine, unspecified; R39.9 Unspecified symptoms and signs involving the genitourinary system; R39.14 Feeling of incomplete bladder emptying
CPT/HCPCS: 36415; 51798; 81002; 85610; 99214

== ENCOUNTER → 2023-08-13 06:54 | Outpatient (CLI) | payer MEDICARE, BC, SELFPAY ==
[2021-12-30 15:17] VITALS: BMI 24.7
[2023-08-13 07:58] LABS: INR 2.2 (0.9-1.3); Prothrombin Time 25.1 SECONDS (9.4-12.5)
== END ==
PROVIDERS: PCP Internal Medicine; Referring Provider Internal Medicine; Visit Provider Internal Medicine
DX: I48.20 Chronic atrial fibrillation, unspecified (principal); Z79.01 Long term (current) use of anticoagulants
CPT/HCPCS: 36415; 85610

== ENCOUNTER → 2023-09-02 06:21 | Outpatient (CLI) | payer MEDICARE, BC, SELFPAY ==
[2021-12-30 15:17] VITALS: BMI 24.7
[2023-09-02 07:28] LABS: INR 2.4 (0.9-1.3)
== END ==
PROVIDERS: PCP Internal Medicine; Referring Provider Internal Medicine; Visit Provider Internal Medicine
DX: I82.409 Acute embolism and thrombosis of unspecified deep veins of unspecified lower extremity (principal)
CPT/HCPCS: 36415; 85610

== ENCOUNTER → 2023-09-23 05:58 | Outpatient (CLI) | payer MEDICARE, BC, SELFPAY ==
[2021-12-30 15:17] VITALS: BMI 24.7
[2023-09-23 08:41] LABS: INR 2.6 (0.9-1.3); Prothrombin Time 30.1 SECONDS (9.4-12.5)
== END ==
PROVIDERS: PCP Internal Medicine; Referring Provider Internal Medicine; Visit Provider Internal Medicine
DX: I82.409 Acute embolism and thrombosis of unspecified deep veins of unspecified lower extremity (principal)
CPT/HCPCS: 36415; 85610

== ENCOUNTER → 2023-10-12 08:33 | Outpatient (CLI) | payer MEDICARE, BC, SELFPAY ==
[2021-12-30 15:17] VITALS: BMI 24.7
[2023-10-12 09:20] LABS: Hematocrit 41.6 % (41-53); Hemoglobin 14.4 g/dL (13.5-17.5); Mean Corpuscular HGB Conc 34.5 % (30-36); Mean Corpuscular Hemoglobin 32.2 PG (26-34); Mean Corpuscular Volume 93.4 fL (80-100); Platelet Count 200 X10^3/uL (150-400); Red Blood Cell Count 4.46 X10^6/uL (4.5-5.9); Red Cell Distribution Width 13.1 % (11.6-14.8); White Blood Cell Count 6.6 X10^3/uL (4.5-11.0)
[2023-10-12 09:52] LABS: HEMOLYSIS < 15 (0-50)
[2023-10-12 10:12] LABS: Alanine Aminotransferase 19 IU/L (<50); Albumin 4.4 g/dL (3.5-5.0); Albumin Globulin Ratio 1.3 (1.0-2.8); Alkaline Phosphatase 68 U/L (38-126); Aspartate Aminotransferase 28 IU/L (17-59); BUN Creatinine Ratio 13.7 (6-22); Bilirubin Total 1.3 mg/dL (0.2-1.3); Blood Urea Nitrogen 13 mg/dL (9-20); Calcium 9.2 mg/dL (8.4-10.2); Carbon Dioxide 21 mmol/L (22-32); Chloride 107 mmol/L (98-107); Cholesterol 155 mg/dL (140-199); Estimated Glomerular Filt Rate > 60 mL/min (>60); Globulin 3.4 g/dL (1.7-4.1); Glucose 81 mg/dL (80-110); HDL Cholesterol 35 mg/dL (40-60); LDL Cholesterol Calculated 95 mg/dL (<100); Potassium 3.8 mmol/L (3.4-5.1); Sodium 136 mmol/L (137-145); Total Protein 7.8 g/dL (6.3-8.2); Triglycerides 126 mg/dL (35-150)
[2023-10-12 10:23] LABS: TSH w/ Reflex to FT4 1.76 uIU/mL (0.47-4.68)
== END ==
PROVIDERS: PCP Internal Medicine; Referring Provider Internal Medicine; Visit Provider Internal Medicine
DX: E03.9 Hypothyroidism, unspecified (principal); E78.2 Mixed hyperlipidemia; I10 Essential (primary) hypertension
CPT/HCPCS: 36415; 80053; 80061; 84443; 85027

== ENCOUNTER → 2023-12-24 07:49 | Outpatient (CLI) | payer MEDICARE, BC, SELFPAY ==
[2021-12-30 15:17] VITALS: BMI 24.7
[2023-12-26 06:36] LABS: PSA Free % 21.3 % (.); PSA, Total 5.5 ng/mL (0.0-4.0)
== END ==
PROVIDERS: PCP Internal Medicine; Referring Provider Urology; Visit Provider Urology
DX: N40.1 Benign prostatic hyperplasia with lower urinary tract symptoms (principal); R39.14 Feeling of incomplete bladder emptying
CPT/HCPCS: 36415; 84153; 84154

== ENCOUNTER → 2024-01-20 08:09 | Outpatient (CLI) | payer MEDICARE, BC, SELFPAY ==
[2021-12-30 15:17] VITALS: BMI 24.7
== END ==
PROVIDERS: PCP Internal Medicine; Visit Provider Urology
DX: R39.9 Unspecified symptoms and signs involving the genitourinary system (principal)
CPT/HCPCS: 87086

== ENCOUNTER → 2024-06-13 11:36 | Outpatient (CLI) | payer MEDICARE, BC, SELFPAY ==
[2021-12-30 15:17] VITALS: BMI 24.7
[2024-06-13 12:19] LABS: Hematocrit 42.3 % (41-53); Hemoglobin 14.8 g/dL (13.5-17.5); Mean Corpuscular Volume 94.3 fL (80-100); Platelet Count 216 X10^3/uL (150-400); Red Blood Cell Count 4.48 X10^6/uL (4.5-5.9); Red Cell Distribution Width 13.1 % (11.6-14.8); White Blood Cell Count 7.8 X10^3/uL (4.5-11.0)
[2024-06-13 12:54] LABS: Aspartate Aminotransferase 33 IU/L (17-59); BUN Creatinine Ratio 16.2 (6-22); Blood Urea Nitrogen 17 mg/dL (9-20); Calcium 9.3 mg/dL (8.4-10.2); Carbon Dioxide 19 mmol/L (22-32); Chloride 104 mmol/L (98-107); Cholesterol 160 mg/dL (140-199); Estimated Glomerular Filt Rate > 60 mL/min (>60); Glucose 78 mg/dL (80-110); HDL Cholesterol 39 mg/dL (40-60); HEMOLYSIS < 15 (0-50); LDL Cholesterol Calculated 96 mg/dL (<100); Potassium 3.9 mmol/L (3.4-5.1); Sodium 134 mmol/L (137-145); Triglycerides 123 mg/dL (35-150)
[2024-06-13 13:23] LABS: TSH w/ Reflex to FT4 3.07 uIU/mL (0.47-4.68)
== END ==
PROVIDERS: Family Provider Internal Medicine; PCP Internal Medicine; Referring Provider Internal Medicine; Visit Provider Internal Medicine
DX: E03.9 Hypothyroidism, unspecified (principal); I48.20 Chronic atrial fibrillation, unspecified; E78.2 Mixed hyperlipidemia
CPT/HCPCS: 36415; 80048; 80061; 84443; 84450; 85027

== ENCOUNTER → 2024-06-27 08:09 | Outpatient (CLI) | payer MEDICARE, BC, SELFPAY ==
[2021-12-30 15:17] VITALS: BMI 24.7
[2024-06-27 09:19] LABS: Appearance Urine UA CLEAR; Bilirubin Urine UA NEGATIVE (NEGATIVE); Color Urine UA YELLOW; Glucose Urine UA 2+ g/dL (Negative); Ketones Urine UA NEGATIVE (NEGATIVE); Leukocyte Esterase Urine UA 1+ (NEGATIVE); Nitrite Urine UA NEGATIVE (Negative); Occult Blood Urine UA NEGATIVE (Negative); Protein Urine UA NEGATIVE (Negative); pH Urine UA 6.5 (4.5-8.0)
[2024-06-27 09:35] LABS: Bacteria Urine Occasional (0-1); Culture Indicated Urine Specimen Cultured; RBC Urine 1-5/HPF (0-5/HPF); Squamous Epithelial Cell Urine 0-1 /HPF (0-5/HPF); Urine Volume 10mL (spun); WBC Urine 30-100/HPF (0-5/HPF)
[2024-06-28 11:13] LABS: PSA Free % 21.1 % (.); PSA, Total 5.6 ng/mL (0.0-4.0)
== END ==
PROVIDERS: Family Provider Internal Medicine; PCP Internal Medicine; Referring Provider Urology; Visit Provider Urology
DX: R97.20 Elevated prostate specific antigen [PSA] (principal); R39.9 Unspecified symptoms and signs involving the genitourinary system
CPT/HCPCS: 36415; 81001; 84153; 84154; 87086

== ENCOUNTER 2024-06-27 09:45 | Outpatient (RCR) | payer MEDICARE, BC, SELFPAY ==
[2021-12-30 15:17] VITALS: BMI 24.7
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
--- NOTE | 2024-07-03 12:33 | PT-OP ANOTE ---
Pt cancelled today and rest of scheduled appts. No reason given in medical scheduler's notes. SENIOR STATISTICIAN called and left message, regarding reasoning of cancellation of all appts and if awaiting to schedule more in Mar or wanting to DC and if so need to know so PT can complete your discharge. Asked to call me back and if don't hear by Fri, will assume you wanting to DC and PT will completed DC. SENIOR STATISTICIAN discussed cancellations with Primary PT Sawyer and we will await pt response. PT stated if dont' hear back he will call pt for update.
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
== END 2024-07-05 12:50 | disposition home or self-care (01) ==
LOC: PHYS 09:45
PROVIDERS: Family Provider Internal Medicine; PCP Internal Medicine; Referring Provider Internal Medicine; Visit Provider Internal Medicine
DX: R53.1 Weakness (principal); R26.81 Unsteadiness on feet; R53.82 Chronic fatigue, unspecified
CPT/HCPCS: 97110; 97116; 97163

== ENCOUNTER → 2024-08-03 07:58 | Outpatient (CLI) | payer MEDICARE, BC, SELFPAY ==
[2021-12-30 15:17] VITALS: BMI 24.7
== END ==
PROVIDERS: Family Provider Internal Medicine; PCP Internal Medicine; Visit Provider Urology
DX: N40.1 Benign prostatic hyperplasia with lower urinary tract symptoms (principal); R39.14 Feeling of incomplete bladder emptying; R97.20 Elevated prostate specific antigen [PSA]; Z87.440 Personal history of urinary (tract) infections
CPT/HCPCS: 51798; 81002; 87086; 99214

== ENCOUNTER → 2024-12-12 09:51 | Outpatient (CLI) | payer MEDICARE, BC, SELFPAY ==
[2021-12-30 15:17] VITALS: BMI 24.7
[2024-12-12 10:34] LABS: Hematocrit 40.6 % (41-53); Hemoglobin 14.2 g/dL (13.5-17.5); Mean Corpuscular HGB Conc 34.9 % (30-36); Mean Corpuscular Hemoglobin 33.2 PG (26-34); Mean Corpuscular Volume 95.0 fL (80-100); Platelet Count 200 X10^3/uL (150-400)
[2024-12-12 10:54] LABS: Alanine Aminotransferase 19 IU/L (<50); Albumin 4.4 g/dL (3.5-5.0); Albumin Globulin Ratio 1.4 (1.0-2.8); Alkaline Phosphatase 73 U/L (38-126); Blood Urea Nitrogen 13 mg/dL (9-20); Calcium 9.4 mg/dL (8.4-10.2); Carbon Dioxide 19 mmol/L (22-32); Chloride 102 mmol/L (98-107); Cholesterol 146 mg/dL (140-199); Estimated Glomerular Filt Rate > 60 mL/min (>60); Globulin 3.2 g/dL (1.7-4.1); Glucose 81 mg/dL (70-99); HDL Cholesterol 44 mg/dL (40-60); HEMOLYSIS 23 (0-50); Potassium 4.1 mmol/L (3.4-5.1); Sodium 132 mmol/L (137-145); Total Protein 7.6 g/dL (6.3-8.2); Triglycerides 104 mg/dL (35-150)
[2024-12-12 11:22] LABS: TSH w/ Reflex to FT4 0.92 uIU/mL (0.47-4.68)
[2024-12-12 11:40] LABS: Vitamin B12 > 1000 pg/mL (239-931)
[2024-12-15 07:09] LABS: PSA, Total < 0.1 ng/mL (0.0-4.0)
== END ==
PROVIDERS: PCP Internal Medicine; Referring Provider Urology; Visit Provider Urology
DX: E03.9 Hypothyroidism, unspecified (principal); I48.20 Chronic atrial fibrillation, unspecified; E78.2 Mixed hyperlipidemia; E53.8 Deficiency of other specified B group vitamins; R97.20 Elevated prostate specific antigen [PSA]
CPT/HCPCS: 36415; 80053; 80061; 82607; 84153; 84154; 84443; 85027

== ENCOUNTER → 2025-02-01 09:10 | Outpatient (CLI) | payer MEDICARE, BC, SELFPAY ==
[2021-12-30 15:17] VITALS: BMI 24.7
== END ==
PROVIDERS: PCP Internal Medicine; Visit Provider Urology
DX: N40.1 Benign prostatic hyperplasia with lower urinary tract symptoms (principal); R39.14 Feeling of incomplete bladder emptying
CPT/HCPCS: 87077; 87086; 87186